=== PATIENT | female | born 1955 | race Caucasian/White ===

== ENCOUNTER 2016-08-10 08:59 | Emergency (ER) | payer OTHER ==
[~2016-08-10] VITALS: Ht 167.6 cm; Wt 61.3 kg
[2016-08-10] VITALS (8 sets, daily range): BP systolic 96–152; BP diastolic 54–84; PULSE 93–105; TEMP 36.4–36.9; O2SAT 93–98; Ht 167.6 cm; Wt 61.3 kg
[~2016-08-10 08:59] MED LIST: AZAT50TA5 PO; BUDE3CAP14 PO; CARV6.25 PO; CEFE2INJ2 IV; LEVO100T PO; LORA-741 PO; ONDA4TAB46 PO; POLY335019 PO; POTA10CA28 PO; PRED10TA PO; PRLSR20 PO; PRTI40 IV; URSO300C4 PO; VNCE1000 IV; [UNRECOGNIZED DRUG - CODE] IV; [UNRECOGNIZED DRUG - CODE] IV
--- NOTE | 2016-08-10 09:36 | EMERGENCY ROOM VISIT NOTE ---
History Report prepared by Fatoumata: Kate Espinoza Under the Supervision of: Dr. Chela Murry M.D. First contact with patient: 09:16 Chief Complaint: SYNCOPE Stated Complaint: SYNCOPE Nursing Triage Summary: Patient arrived via EMS for syncopal episode this am, patient resides at [facility]. Patient reports that "the occupational therapist had ms up to get dressed and then strapped me into my wheelchair for breakfast then I passed out." Patient has history of Leukemia and believes her platelet count may be low. PT is on neutropenic precautions. A&Ox4. History of Present Illness The patient is a 61 year old female who presents to the Emergency Room with complaints of a syncopal episode that occurred prior to arrival. She is accompanied by her . The patient was transferred to [facility] yesterday from [facility] and reports her occupational therapist had her get up and dressed this morning, then was strapping her into her wheelchair for breakfast when she passed out. She states "the next thing I knew, I was on the bed, staring at a bunch of doctor's". The patient has a history of leukemia, diagnosed in May 2016, and believes her platelets may have been low this morning and reports she did not eat anything for breakfast today. Her oncology team is comprised of the physicians at [facility]. She notes a similar episode happened a few weeks ago while she was inpatient at [facility] for the leukemia. She denies experiencing any chest pain or shortness of breath this morning. Source of History: patient, spouse/significant other () Onset: HISTOLOGIST Position: other (global) Timing: resolved Associated Symptoms: No SOB, No chest pain Review of Systems See HPI for pertinent positives & negatives. A total of 10 systems reviewed and were otherwise negative. Past Medical & Surgical Medical Problems: (1) Hyperbilirubinemia (2) Hypothyroidism (3) Pneumonia (4) Takotsubo cardiomyopathy (5) Transaminitis Surgical Problems: (1) H/O colonoscopy (2) S/P anal fissurectomy Family History FH: alpha 1 antitrypsin deficiency SISTER FH: cancer FATHER MOTHER FH: diabetes mellitus FH: gallbladder disease FH: heart disease FATHER FH: hypertension FH: lung disease MOTHER Hemochromatosis SISTER Stroke MOTHER Social History Smoking Status: Never Smoker Alcohol Use: occasionally Drug Use: none Marital Status: Housing Status: lives with family Occupation Status: employed Current/Historical Medications Scheduled Acyclovir (Acyclovir), 400 MG PO BID Carvedilol (Coreg), 6.25 MG PO BID Daptomycin (Daptomycin), 750 MG IV DAILY Dexamethasone (Dexamethasone), 2 TAB PO DAILY Docusate Sodium (Colace), 1 CAP PO BID Insulin Glargine (Lantus Solostar), 2 UNITS SC DAILY Levothyroxine Sodium (Synthroid), 100 MCG PO DAILY Oseltamivir Phosphate (Tamiflu), 75 MG PO DAILY Pantoprazole (Protonix), 40 MG PO DAILY Polyethylene Glycol 3350 (Miralax), 17 GM PO DAILY Senna/Docusate Sod (Senokot S), 1 TAB PO DAILY Ursodiol (Ursodiol), 300 MG PO TID Scheduled PRN Acetaminophen (Tylenol), 650 MG PO Q4 PRN for Pain Bisacodyl (Dulcolax), 1 SUPP WA Q24H PRN for Constipation Dextromethorphan-Guaifenesin (Robitussin-Dm Syrup), 5 ML PO QID PRN for Cough Diphenoxylate W/ Atropine (Lomotil), 1 TAB PO Q6 PRN for Constipation Insulin Aspart (Novolog Flexpen), UNITS SC UD PRN for SLIDING SCALE Lorazepam (Ativan), 1 MG PO Q6H PRN for Anxiety Lorazepam (Ativan), 0.5 MG PO Q8 PRN for Anxiety Magnesium Hydroxide (Milk of Magnesia), 30 ML PO Q24H PRN for Constipation Oxycodone Ir (Roxicodone Ir), 5 MG PO Q4H PRN for Severe Pain Sodium Phosphates (Fleet Enema Six Pack), 1 DOSE WA Q24H PRN for Constipation Allergies Coded Allergies: Penicillins (Verified Allergy, Unknown, ., 08/10/16) Sulfa Antibiotics (Verified Allergy, Unknown, ., 08/10/16) Physical Exam Vital Signs Date Time Temp Pulse Resp B/P Pulse Ox O2 Delivery O2 Flow Rate FiO2 08/10/16 15:19 96 23 134/66 96 Room Air 08/10/16 14:18 100 131/63 110 141/90 118 172/116 08/10/16 14:15 36.6 100 20 131/63 98 08/10/16 13:14 36.8 97 20 113/55 98 08/10/16 12:42 36.4 93 18 96/54 95 08/10/16 12:25 36.7 97 20 120/62 96 08/10/16 12:09 102 20 102/59 97 Room Air 08/10/16 12:05 97 08/10/16 10:58 115 24 112/76 96 Room Air 08/10/16 09:17 98 08/10/16 09:11 36.6 95 18 152/81 98 Room Air Physical Exam Vital signs reviewed. General: Chronically ill-appearing 61 year old female, in no significant distress. HEENT: No scleral icterus, PERRLA, neck supple. Atraumatic. Dry mucous membranes. Cardiovascular: Tachycardic rate and regular rhythm, no extra sounds. Pulmonary: Clear to auscultation bilaterally, normal work of breathing. Abdomen: Soft, nontender, nondistended, positive bowel sounds. Musculoskeletal: Atraumatic, no peripheral edema. Neurologic: Patient awake alert and oriented x 3, full strength in all 4 extremities. Cranial nerves 2 through 12 grossly intact. Skin: Warm, dry. Purpura to the chest, right ear and distal upper extremities. Medical Decision & Procedures ER Provider Diagnostic Interpretation: This X-Ray was reviewed and interpreted by myself and the radiologist. CHEST ONE VIEW PORTABLE IMPRESSION: No active disease in the chest. Electronically signed by: Merlin Morataya M.D. 08/10/2016 9:58 AM Dictated Date/Time: 08/10/2016 9:58 AM Laboratory Results 08/10/16 09:15 Red Blood Count 3.01, Mean Corpuscular Volume 83.7, Mean Corpuscular Hemoglobin 30.2, Mean Corpuscular Hemoglobin Concent 36.1, Mean Platelet Volume 8.8 08/10/16 09:15 Test 08/10/16 09:15 08/10/16 09:48 White Blood Count 4.19 K/uL (4.8-10.8) Red Blood Count 3.01 M/uL (4.2-5.4) Hemoglobin 9.1 g/dL (12.0-16.0) Hematocrit 25.2 % (37-47) Mean Corpuscular Volume 83.7 fL (80-100) Mean Corpuscular Hemoglobin 30.2 pg (25-34) Mean Corpuscular Hemoglobin Concent 36.1 g/dl (32-36) Platelet Count 10 K/uL (130-400) Mean Platelet Volume 8.8 fL (7.4-10.4) RDW Standard Deviation 42.7 fL (36.4-46.3) RDW Coefficient of Variation 14.0 % (11.5-14.5) Nucleated RBC Absolute Count (auto) 0.02 K/uL (0-0) Neutrophils % (Manual) 90.4 % Lymphocytes % (Manual) 2.6 % Monocytes % (Manual) 3.5 % Metamyelocytes % 1.7 % Myelocytes % 0.9 % Blast Cells % 0.9 % Nucleated Red Blood Cells % 0.5 % Neutrophils # (Manual) 3.79 K/uL (1.4-6.5) Total Absolute Neutrophils 3.79 K/uL (1.4-6.5) Lymphocytes # (Manual) 0.11 K/uL (1.2-3.4) Total Absolute Lymphocytes 0.11 K/uL (1.2-3.4) Monocytes # (Manual) 0.15 K/uL (0.11-0.59) Metamyelocytes # 0.07 K/uL (0-0) Myelocytes # 0.04 K/uL (0-0) Hypogranular Neutrophils 2+ Blast Cells # 0.04 K/uL (0-0) Toxic Vacuolation 1+ Dohle Bodies 1+ Platelet Estimate SIGNIFIC DECREASED Prothrombin Time 10.7 SECONDS (9.0-12.0) Prothromb Time International Ratio 1.0 (0.9-1.1) Activated Partial Thromboplast Time 25.0 SECONDS (21.0-31.0) Partial Thromboplastin Ratio 1.0 Anion Gap 11.0 mmol/L (3-11) Est Creatinine Clear Calc Drug Dose 88.8 ml/min Estimated GFR () 113.0 Estimated GFR (Non- 97.5 BUN/Creatinine Ratio 34.0 (10-20) Calcium Level 8.2 mg/dl (8.5-10.1) Magnesium Level 1.7 mg/dl (1.8-2.4) Total Bilirubin 1.1 mg/dl (0.2-1) Direct Bilirubin 0.7 mg/dl (0-0.2) Aspartate Amino Transf (AST/SGOT) 33 U/L (15-37) Alanine Aminotransferase (ALT/SGPT) 68 U/L (12-78) Alkaline Phosphatase 551 U/L (45-117) Total Protein 5.7 gm/dl (6.4-8.2) Albumin 2.4 gm/dl (3.4-5.0) Bedside Troponin I 0.040 ng/ml (0-0.045) Laboratory results per my review. Medications Administered Medications (Trade) Dose Ordered Sig/Adelaida Route Start Time Stop Time Status Last Admin Dose Admin Sodium Chloride 500 ml @ 999 mls/hr Q31M STAT IV 08/10/16 09:39 08/10/16 10:09 DC 08/10/16 09:54 999 MLS/HR Sodium Chloride (Nss 1000ml) 1,000 ml @ 125 mls/hr Q8H STAT IV 08/10/16 09:39 08/10/16 17:38 08/10/16 10:30 125 MLS/HR Dexamethasone (Decadron Tab) 2 mg NOW ONCE PO 08/10/16 14:45 08/10/16 14:48 DC 08/10/16 15:00 2 MG Carvedilol (Coreg Tab) 6.25 mg NOW STAT PO 08/10/16 14:45 08/10/16 14:48 DC 08/10/16 15:18 6.25 MG Oseltamivir Phosphate (Tamiflu Cap) 75 mg NOW STAT PO 08/10/16 14:45 08/10/16 14:48 DC 08/10/16 15:00 75 MG Acyclovir (Zovirax Tab) 400 mg NOW STAT PO 08/10/16 14:45 08/10/16 14:48 DC 08/10/16 15:18 400 MG Levothyroxine Sodium 100 mcg 100 mcg NOW STAT PO 08/10/16 14:45 08/10/16 14:48 DC 08/10/16 15:19 100 MCG Daptomycin/Sodium Chloride (Cubicin IV/Nss 50ml) 65 ml @ 100 mls/hr NOW STAT IV 08/10/16 14:45 08/10/16 15:23 DC 08/10/16 15:18 100 MLS/HR Ursodiol (Actigall Cap) 300 mg NOW STAT PO 08/10/16 14:45 08/10/16 14:48 DC 08/10/16 15:18 300 MG Pantoprazole Sodium (Protonix Tab) 40 mg NOW STAT PO 08/10/16 14:45 08/10/16 14:48 DC 08/10/16 15:00 40 MG Docusate Sodium (coLACE CAP) 100 mg NOW ONCE PO 08/10/16 14:45 08/10/16 14:49 DC 08/10/16 15:00 100 MG ECG Indication: syncope Rate (beats per minute): 97 Findings: no acute ischemic change, no ectopy, other (previous anterior infarct ) ED Course 0923: Past medical records reviewed. The patient was evaluated in room B5. A complete history and physical examination was performed. 0939: NSS 1000 ml @ 125 mls/hr IV, NSS 500 ml @ 999 mls/hr IV. 1030: I spoke with the patients about her case. I was able to answer some questions for him and assured him I will speak with her [facility] Oncology team. 1135: I discussed the patients case with Dr. Leone [facility] Hematology/ Oncology. He recommends I transfuse 2 units of platelets and get orthostatic vital signs. 1215: I reevaluated the patient. She is resting comfortably and aware we will proceed with a RBC transfusion. 1440: Nursing informed me the patient received none of her morning medications. I will put in orders. 1445: Colace 100 mg PO, Protonix 40 mg PO, Actigall 300 mg PO, Daptomycin 750 mg /Sodium Chloride 65 ml @ 100 mls/hr IV, Synthroid 100 mcg PO, Acyclovir 400 mg PO, Tamiflu 75 mg PO, Coreg 6.25 mg PO, Decadron 2 mg PO. 1525: I reevaluated the patient. She is resting comfortably and waiting on her platelet transfusion. 1530: This patient is a sign out to Dr. Batista at the end of my shift. Medical Decision Etiologies such as metabolic, infection, hypo/hyperglycemia, electrolyte abnormalities, cardiac sources, anemia, sepsis, dehydration, intracerebral event , toxicologic, neurologic, as well as others were entertained. This patient was evaluated and appeared to be in no significant distress. IV access was obtained and the patient's PICC line. Patient's laboratory work reveals a thrombocytopenia of 10,000. She does not appear to be neutropenic at this time. Blood cultures are pending. I did discuss the case with Dr. Cordova of oncology at [facility]. He has recommended 2 units of irradiated leukocyte reduced platelets. The patient is currently taking Decadron 2 mg daily. As she is noted to be tachycardic and hypertensive with orthostatics, her medication list was reviewed. She had not received any of her morning medications per [facility]. The patient was given IV daptomycin, oral Decadron, Synthroid, acyclovir, Tamiflu, Coreg, ursodiol, Protonix and Colace. She was receiving 2 units of platelets. There was some delay in obtaining the second unit from an outside source. The patient remained well in the emergency department. She had 2 meals and was improving clinically. She will be discharged back to [facility] at the completion of the second unit of platelets. Patient and are aware of this plan and agree. Consults Time Called: 1130 Consulting Physician: Dr. Leone, [facility] Hematology/Oncology Returned Call: [phone] I discussed the patients case with Dr. Leone, [facility] Hematology/Oncology. He recommends I transfuse 2 units of platelets and get orthostatic vital signs. Impression Primary Impression: Thrombocytopenia Additional Impressions: Vasovagal syncope, AML (acute myelogenous leukemia) Scribe Attestation The scribe's documentation has been prepared under my direction and personally reviewed by me in its entirety. I confirm that the note above accurately reflects all work, treatment, procedures, and medical decision making performed by me. Departure Information Dispostion Still a Patient (This patient is a sign out to Dr. Batista at the end of my shift) Referrals Jaylin Corral D.O. (PCP) Patient Instructions A Signature Page, My [facility]
[2016-08-10] MEDS ORDERED: SODIUM CHLORIDE 0.9% 500ML 500 ML IV STA (09:39)
[2016-08-10] MEDS ORDERED: SODIUM CHLORIDE 0.9% 1000ML 1,000 ML IV STA (09:39)
--- NOTE | 2016-08-10 10:00 | DIAGNOSTIC IMAGING REPORT ---
CHEST ONE VIEW PORTABLE CLINICAL HISTORY: syncope, leukemia, neutropenia COMPARISON STUDY: 05/14/2016 FINDINGS: The cardiac and mediastinal contours remain stable. There is been interval placement of a left-sided PICC catheter. The tip projects over the superior vena cava. There is no focal pulmonary consolidation. There is no failure. There are no pleural effusions. There is minimal left basilar atelectatic change.[ IMPRESSION: No active disease in the chest. Electronically signed by: Merlin Morataya M.D. 08/10/2016 9:58 AM Dictated Date/Time: 08/10/2016 9:58 AM
[2016-08-10 10:29] LABS: CALCIUM 8.2 mg/dl (8.5-10.1); CREATININE 0.63 mg/dl (0.60-1.20); MAGNESIUM 1.7 mg/dl (1.8-2.4); POTASSIUM 3.6 mmol/L (3.5-5.1)
[2016-08-10 10:30] LABS: PROTHROMBIN TIME (PATIENT) 10.7 SECONDS (9.0-12.0)
[2016-08-10 10:59] LABS: HEMATOCRIT 25.2 % (37-47); MEAN CELL VOLUME 83.7 fL (80-100); MEAN CORPUSCULAR HEMOGLOBIN 30.2 pg (25-34); MEAN CORPUSCULAR HGB CONC 36.1 g/dl (32-36); MEAN PLATELET VOLUME 8.8 fL (7.4-10.4); PLATELET COUNT 10 K/uL (130-400); RED BLOOD COUNT 3.01 M/uL (4.2-5.4); WHITE BLOOD COUNT 4.19 K/uL (4.8-10.8)
[2016-08-10 11:00] LABS: DOHLE BODIES 1+; PLT ESTIMATE SIGNIFIC DECREASED; VACUOLIZATION 1+
[2016-08-10] MEDS ORDERED: POLY335019 PO (11:02)
[2016-08-10] MEDS ORDERED: SENN-65 PO (11:02)
[2016-08-10] MEDS ORDERED: SODI1ENE PR (11:07)
[2016-08-10] MEDS ORDERED: ATV/1 PO (11:07)
[2016-08-10 11:16] LABS: COMPLETE YES; LYMPH ABS # 0.11 K/uL (1.2-3.4); LYMPHOCYTE % 2.6 %; META ABS # 0.07 K/uL (0-0); METAMYELOCYTE % 1.7 %; MYELOCYTE % 0.9 %; NEUTROPHILS % 90.4 %
[2016-08-10] MEDS ORDERED: LEVOTHYROXINE 100 MCG TAB PO STA (14:45)
[2016-08-10] MEDS ORDERED: DAPTOmycin IV 750 MG in SODIUM CHLORIDE 0.9% 50ML 50 ML IV STA (14:45)
[2016-08-10] MEDS ORDERED: DOCUSATE SODIUM 100 MG CAP PO ONE (14:45)
[2016-08-10] MEDS ORDERED: DEXAMETHASONE 1 MG TAB PO ONE (14:45)
[2016-08-10] MEDS ORDERED: ACYCLOVIR 400 MG TAB PO STA (14:45)
[2016-08-10] MEDS ORDERED: URSODIOL 300 MG CAP PO STA (14:45)
[2016-08-10] MEDS ORDERED: PANTOprazole SOD 40 MG TAB PO STA (14:45)
[2016-08-10] MEDS ORDERED: CARVEDILOL 6.25 MG TAB PO STA (14:45)
[2016-08-10] MEDS ORDERED: OSELTAMIVIR PHOSPHATE 75 MG CAP PO STA (14:45)
[2016-08-13] MEDS ORDERED: ONDA4TAB46 PO (11:37)
[2016-08-17] MEDS ORDERED: NVLGI/PEN SC (11:02)
[2016-08-17] MEDS ORDERED: DOCU-94 PO (11:02)
[2016-08-17] MEDS ORDERED: PANT40TA PO (11:02)
[2016-08-17] MEDS ORDERED: CARV6.252 PO (11:02)
[2016-08-17] MEDS ORDERED: DEXA2TAB PO (11:02)
[2016-08-17] MEDS ORDERED: NF406 PO (11:02)
[2016-08-17] MEDS ORDERED: BISA10SU38 PR (11:07)
[2016-08-17] MEDS ORDERED: MOMLX PO (11:07)
[2016-08-29] MEDS ORDERED: URSO300C8 PO (11:02)
[2016-08-29] MEDS ORDERED: INSDGIPEN SC (11:02)
[2016-08-29] MEDS ORDERED: LEVO100T PO (11:02)
[2016-08-29] MEDS ORDERED: DAPT500I IV (11:02)
[2016-08-29] MEDS ORDERED: ZVR400 PO (11:02)
[2016-08-29] MEDS ORDERED: RBTDMUDL5 PO (11:07)
[2016-08-29] MEDS ORDERED: DPH/ PO (11:07)
[2016-08-29] MEDS ORDERED: OXYC1TAB3 PO (11:07)
[2016-08-29] MEDS ORDERED: ACET-1311 PO (11:07)
[2016-08-29] MEDS ORDERED: LORA-741 PO (11:07)
[2016-08-29] MEDS ORDERED: METO25TA3 PO (13:01)
[2016-09-04] MEDS ORDERED: FLUC200T PO (13:07)
[2016-10-29] MEDS ORDERED: LEVO1TAB33 PO (13:12)
== END 2016-08-10 21:54 | disposition home or self-care (01) ==
LOC: EDBD 08:59 → C.EDB 09:02
DX: D69.6 Thrombocytopenia, unspecified (principal); R55 Syncope and collapse; C92.00 Acute myeloblastic leukemia, not having achieved remission; E03.9 Hypothyroidism, unspecified; Z79.4 Long term (current) use of insulin; Z79.899 Other long term (current) drug therapy; Z88.0 Allergy status to penicillin; Z88.2 Allergy status to sulfonamides

== ENCOUNTER 2016-08-17 17:42 | Inpatient (IN) | payer OTHER ==
[~2016-08-17] VITALS: Ht 167.6 cm; Wt 60.2 kg
[2016-08-17] VITALS (12 sets, daily range): BP systolic 92–124; BP diastolic 62–84; PULSE 81–86; TEMP 35.9–36.9; O2SAT 94–99; Ht 167.6 cm; Wt 60.2 kg
[~2016-08-17 17:42] MED LIST changes: -AZAT50TA5 PO; +BISA10SU38 PR; -BUDE3CAP14 PO; -CARV6.25 PO; +CARV6.252 PO; -CEFE2INJ2 IV; +DEXA2TAB PO; +DOCU-94 PO; -LEVO100T PO; -LORA-741 PO; +MOMLX PO; +NF406 PO; +NVLGI/PEN SC; +PANT40TA PO; -POTA10CA28 PO; -PRED10TA PO; -PRLSR20 PO; -PRTI40 IV; +SENN-65 PO; -URSO300C4 PO; -VNCE1000 IV; -[UNRECOGNIZED DRUG - CODE] IV; -[UNRECOGNIZED DRUG - CODE] IV
--- NOTE | 2016-08-17 18:19 | EMERGENCY ROOM VISIT NOTE ---
History Report prepared by Fatoumata: Krystle Helm Under the Supervision of: Dr. Chela Murry M.D. First contact with patient: 17:46 Chief Complaint: REFERRED BY DOCTOR Stated Complaint: PLATLET INFUSION History of Present Illness The patient is a 61 year old female who presents to the Emergency Room with complaints of a referral by a doctor to have platelet transfusion. The need for a platelet transfusion was noticed earlier today at [facility]. The patient states that she feels fine and that therapy has been going well for her. She is currently receiving treatment for leukemia. She states that her skin tears on her right arm bled "pretty bad" earlier today. Otherwise, she denies noticing any bleeding. Source of History: patient Onset: earlier today Position: other (generalized) Symptom Intensity: minimal Quality: other (referral by doctor for platelet transfusion) Note: skin tears on right arm that bled earlier today Review of Systems See HPI for pertinent positives & negatives. A total of 10 systems reviewed and were otherwise negative. Past Medical & Surgical Medical Problems: (1) AML (acute myeloblastic leukemia) (2) AML (acute myelogenous leukemia) (3) Hyperbilirubinemia (4) Hypothyroidism (5) Pancytopenia (6) Pneumonia (7) Takotsubo cardiomyopathy (8) Transaminitis Surgical Problems: (1) H/O colonoscopy (2) S/P anal fissurectomy Family History FH: alpha 1 antitrypsin deficiency SISTER FH: cancer FATHER MOTHER FH: diabetes mellitus FH: gallbladder disease FH: heart disease FATHER FH: hypertension FH: lung disease MOTHER Hemochromatosis SISTER Stroke MOTHER Social History Smoking Status: Never Smoker Alcohol Use: occasionally Drug Use: none Marital Status: Housing Status: lives with family Occupation Status: employed Current/Historical Medications Scheduled Acyclovir (Acyclovir), 400 MG PO BID Carvedilol (Coreg), 6.25 MG PO BID Daptomycin (Daptomycin), 750 MG IV QD@1200 Dexamethasone (Dexamethasone), 4 MG PO QAM Docusate Sodium (Colace), 100 MG PO BID Insulin Glargine (Lantus Solostar), 2 UNITS SC DAILY Levothyroxine Sodium (Synthroid), 100 MCG PO DAILY Oseltamivir Phosphate (Tamiflu), 75 MG PO DAILY Pantoprazole (Protonix), 40 MG PO DAILY Polyethylene Glycol 3350 (Bulk (Polyethylene Glycol 3350), 17 GM PO DAILY Sennosides-Docusate Sodium (Senna/Docusate Sodium), 1 TAB PO DAILY Ursodiol (Ursodiol), 300 MG PO TID Scheduled PRN Acetaminophen (Tylenol), 650 MG PO Q4H PRN for Mild Pain Bisacodyl (Dulcolax), 1 SUPP ME UD PRN for Constipation Dextromethorphan-Guaifenesin (Robitussin-Dm Syrup), 5 ML PO QID PRN for Cough Diphenoxylate W/ Atropine (Lomotil), 2.5 MG PO Q6H PRN for Diarrhea Insulin Aspart (Novolog Flexpen), UNITS SC UD PRN for SLIDING SCALE Lorazepam (Ativan), 0.5 MG PO Q8 PRN for Anxiety Magnesium Hydroxide (Milk of Magnesia), 30 ML PO UD PRN for Constipation Ondasetron Odt (Zofran Odt), 4 MG SL Q6H PRN for Nausea or Vomiting Oxycodone Ir (Roxicodone Ir), 5 MG PO Q4H PRN for Moderate to Severe Pain Allergies Coded Allergies: Penicillins (Verified Allergy, Unknown, ., 08/13/16) Sulfa Antibiotics (Verified Allergy, Unknown, ., 08/13/16) Physical Exam Vital Signs Date Time Temp Pulse Resp B/P Pulse Ox O2 Delivery O2 Flow Rate FiO2 08/17/16 21:04 83 16 116/81 96 Room Air 08/17/16 20:37 36.6 83 18 116/81 96 08/17/16 20:36 36.6 81 18 116/81 96 08/17/16 20:17 36.6 83 16 112/77 97 08/17/16 19:52 36.7 86 16 121/83 97 08/17/16 19:27 36.6 83 16 121/83 97 08/17/16 19:11 36.6 76 18 109/73 95 Room Air 08/17/16 19:04 36.6 84 16 109/75 95 08/17/16 18:46 36.6 85 18 100/71 95 08/17/16 18:34 36.6 82 16 94/62 94 08/17/16 18:23 36.9 84 17 92/64 94 08/17/16 17:46 36.6 96 18 107/79 93 Room Air Physical Exam Vital signs reviewed. General: Chronically ill-appearing female, in no significant distress. HEENT: No scleral icterus, pale conjunctiva, PERRLA, neck supple. Atraumatic. Cardiovascular: Regular rate and rhythm, no extra sounds. Pulmonary: Clear to auscultation bilaterally, normal work of breathing. Abdomen: Soft, nontender, nondistended, positive bowel sounds. Musculoskeletal: Atraumatic, no peripheral edema. PICC line in left upper extremity. Neurologic: Patient awake alert and oriented x 3, full strength in all 4 extremities. Cranial nerves 2 through 12 grossly intact. Skin: Warm, dry, no rash. Dark nonblanching purple lesions to anterior chest wall and upper extremities bilaterally but no active bleeding. Protective dressings applied to both forearms. Medical Decision & Procedures Laboratory Results Test 08/17/16 18:10 Neutrophils % (Manual) 75.8 % Lymphocytes % (Manual) 6.9 % Monocytes % (Manual) 5.2 % Metamyelocytes % 4.3 % Myelocytes % 5.2 % Promyelocytes % 2.6 % Neutrophils # (Manual) 1.81 K/uL (1.4-6.5) Total Absolute Neutrophils 1.81 K/uL (1.4-6.5) Lymphocytes # (Manual) 0.16 K/uL (1.2-3.4) Total Absolute Lymphocytes 0.16 K/uL (1.2-3.4) Monocytes # (Manual) 0.12 K/uL (0.11-0.59) Metamyelocytes # 0.10 K/uL (0-0) Myelocytes # 0.12 K/uL (0-0) Promyelocytes # 0.06 K/uL (0-0) Toxic Granulation 1+ Platelet Estimate SIGNIFIC DECREASED Prothrombin Time 10.7 SECONDS (9.0-12.0) Prothromb Time International Ratio 1.0 (0.9-1.1) Activated Partial Thromboplast Time 27.5 SECONDS (21.0-31.0) Partial Thromboplastin Ratio 1.1 Total Bilirubin 0.7 mg/dl (0.2-1) Direct Bilirubin 0.5 mg/dl (0-0.2) Aspartate Amino Transf (AST/SGOT) 22 U/L (15-37) Alanine Aminotransferase (ALT/SGPT) 45 U/L (12-78) Alkaline Phosphatase 534 U/L (45-117) Total Protein 6.0 gm/dl (6.4-8.2) Albumin 2.5 gm/dl (3.4-5.0) Laboratory results per my review. Medications Administered Medications (Trade) Dose Ordered Sig/Adelaida Route Start Time Stop Time Status Last Admin Dose Admin Prednisone (PredniSONE TAB) 60 mg NOW STAT PO 08/17/16 20:01 08/17/16 20:02 DC 08/17/16 20:20 60 MG Potassium Chloride (Klor-Con M10) 40 meq NOW STAT PO 08/17/16 20:16 08/17/16 20:26 DC 08/17/16 20:36 40 MEQ ED Course 175: Past medical records reviewed. The patient was evaluated in room A11. A complete history and physical examination was performed. 1943: I reviewed the patient's case with Dr. Salcido - Hematology at [facility]. They recommended giving 2 units of platelets, 1 mg per kg of prednisone, and admit the patient to medicine. 1944: I reviewed the patient's case with Cookie Way PA-C - [place]. She will evaluate the patient for further management. 1946: Upon reevaluation, the patient is resting comfortably. I discussed laboratory and radiographic results with her. She verbalized agreement of the treatment plan. I spoke with Cookie Way PA-C of the [facility] Hospitalist Service. The patient will be evaluated for further management and care. 2000: Ordered Prednisone 60 mg PO Medical Decision The patient is a 61 year old female who presents to the Emergency Room with complaints of a referral by a doctor to have platelet transfusion. Differentials include thrombocytopenia secondary to malignancy, medication side effects. This pt was evaluated and appeared to be in no distress. IV access was obtained and lab work was drawn. Patient's laboratory work was reviewed with a platelet count of 1999. I did speak with oncology at [facility], Dr. Salcido, who has recommended platelet transfusion and steroid therapy, 1 mg/kg of prednisone. The patient was given 60 mg of oral prednisone. Additional platelets will need to be obtained from an outside hospital. The first unit of platelets was administered in the emergency department. The patient will be evaluated by the hospitalist service for further management. She is aware of the plan and agrees. Consults Time Called: 1934 Consulting Physician: Dr. Salcido - Hematology at [facility] Returned Call: 1943 I reviewed the patient's case with Dr. Salcido - Hematology at [facility]. They recommended giving 2 units of platelets, 1 mg per kg of prednisone, and admit the patient to medicine. Additional Consults: Time Called: 1943 Consulted Physician: Cookie Torres Returned Call: 1944 Additional Comments: I reviewed the patient's case with Cookie Torres. She will evaluate the patient for further management. Impression Primary Impression: Thrombocytopenia Additional Impression: Acute myelogenous leukemia Scribe Attestation The scribe's documentation has been prepared under my direction and personally reviewed by me in its entirety. I confirm that the note above accurately reflects all work, treatment, procedures, and medical decision making performed by me. Departure Information Dispostion Being Evaluated By Hospitalist Referrals Jaylin Corral D.OAngel (PCP) Patient Instructions My [facility] Problem Qualifiers Additional Impression: Acute myelogenous leukemia Leukemia Active/Remission status: without remission Qualified Codes: C92.00 - Acute myeloblastic leukemia, not having achieved remission
[2016-08-17 18:46] LABS: BUN/CREATININE RATIO 25.8 (10-20); CALCIUM 7.9 mg/dl (8.5-10.1); CREATININE 0.45 mg/dl (0.60-1.20); POTASSIUM 3.3 mmol/L (3.5-5.1)
[2016-08-17 19:24] LABS: HEMATOCRIT 27.1 % (37-47); MEAN CELL VOLUME 82.6 fL (80-100); MEAN CORPUSCULAR HEMOGLOBIN 29.6 pg (25-34); MEAN CORPUSCULAR HGB CONC 35.8 g/dl (32-36); PLATELET COUNT 2 K/uL (130-400); RED BLOOD COUNT 3.28 M/uL (4.2-5.4); WHITE BLOOD COUNT 2.39 K/uL (4.8-10.8)
[2016-08-17 19:32] LABS: LYMPH ABS # 0.16 K/uL (1.2-3.4); LYMPHOCYTE % 6.9 %; METAMYELOCYTE % 4.3 %; MYELOCYTE % 5.2 %; NEUTROPHILS % 75.8 %; PLT ESTIMATE SIGNIFIC DECREASED; TOXIC GRANULATION 1+
[2016-08-17 19:35] LABS: COMPLETE YES
[2016-08-17] MEDS ORDERED: POTASSIUM CHLORIDE 10 MEQ TABCR PO STA (20:16)
[2016-08-17] MEDS ORDERED: ONDANSETRON INJ 2 MG/ML 2 ML VIAL IV PRN (20:45)
[2016-08-17] MEDS ORDERED: POLY1POW2 PO (20:48)
[2016-08-17] MEDS ORDERED: SENN1TAB66 PO (20:48)
[2016-08-17 20:58] LABS: PARTIAL THROMBOPLASTIN RATIO 1.1; PROTHROMBIN TIME (PATIENT) 10.7 SECONDS (9.0-12.0)
--- NOTE | 2016-08-17 21:11 | DIAGNOSTIC IMAGING REPORT ---
SINGLE VIEW CHEST CLINICAL HISTORY: Fever. FINDINGS: An AP, portable, upright chest radiograph is compared to study dated 08/10/2016 and correlated with chest CT dated 05/14/2016. A left PICC line is unchanged in position. The cardiomediastinal silhouette is unremarkable. There are low lung volumes. Left basilar consolidation is identified and there is a trace left pleural effusion. The right lung is grossly clear. No pneumothorax is seen. The skeletal structures are osteopenic. The bony thorax is grossly intact. IMPRESSION: There is developing left basilar consolidation with a small left pleural effusion. Correlate clinically for evidence of pneumonia/aspiration pneumonitis. Radiographic follow-up to resolution is recommended. Electronically signed by: Adolph Curry M.D. 08/17/2016 9:09 PM Dictated Date/Time: 08/17/2016 9:07 PM
[2016-08-17] MEDS ORDERED: GUAIFENESIN/DEXTROM SYRUP 100MG/10MG 5ML UDC PO PRN (21:15)
[2016-08-17] MEDS ORDERED: OXYCODONE HCL IR 5 MG TAB (IMMEDIATE RELEASE) PO PRN (21:15)
[2016-08-17] MEDS ORDERED: LORAZEPAM 0.5 MG TAB PO PRN (21:15)
[2016-08-17] MEDS ORDERED: MAGNESIUM HYDROXIDE SUSP 30 ML UDC PO PRN (21:15)
[2016-08-17] MEDS ORDERED: ACETAMINOPHEN 325 MG TAB PO PRN (21:15)
[2016-08-17] MEDS ORDERED: DIPHENOXYLATE/ATROPINE 2.5/0.025MG TAB PO PRN (21:15)
[2016-08-17] MEDS ORDERED: BISACODYL 10 MG SUPP PR PRN (21:15)
[2016-08-17] MEDS ORDERED: ONDANSETRON 4MG OD TAB SL PRN (21:15)
--- NOTE | 2016-08-17 22:16 | HISTORY & PHYSICAL EXAMINATION ---
DATE OF ADMISSION: 08/17/2016 PRIMARY CARE PHYSICIAN: Dr. Corral. Hematologists-DR Salcido in [place] and Dr Mejia CHIEF COMPLAINT: Weakness and was found to have a very low platelet of 2 at [facility]. 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 Apparently has been in [facility] since discharged from [facility] on 08/09/2016. She has been complaining of more bruising involving the upper part of the body and upper extremities for the last year or two and also complains to have more weakness but did not have any bleeding in the stool or any nausea or vomiting with blood. She feels generally weak and lethargic. Her blood test was done today at [facility] and she was found to have a platelet of 2. From that point, her pharmacy delivery driver was consulted in [place] and he advised the patient to come to the medical center and get platelet transfusion as advised and also start on prednisone. Short hospital course in [place]. The patient was transferred to [place] on 06/16/2017 with high white count. She was diagnosed to have acute myeloid leukemia, poorly differentiated, and she received chemotherapy with FLAG-AMY and she finished that course in June. Her hospital course was complicated by GI bleed and also by VRE bacteremia. She was seen by GI and also ID, and she has been put on intravenous daptomycin and also oral acyclovir and the daptomycin should be continued until 08/29/2016. She also had an echocardiogram on 07/13/2016 that showed EF of 55% and no vegetations. Her hospital course also was complicated by pancytopenia but that was gradually improving. Again, today she was noted to have a platelet of 2 and that is the reason she is in the hospital. PAST MEDICAL HISTORY: Significant for recently diagnosed acute myeloid leukemia, poorly differentiated type, status post chemotherapy; pancytopenia secondary to chemotherapy and/or bone marrow infiltration; thrombocytopenia; autoimmune hepatitis; febrile neutropenia with VRE bacteremia; HSV-1 infection, hypothyroidism and Takotsubo cardiomyopathy. PAST SURGICAL HISTORY: Significant for bone marrow aspiration on 08/02/2016, EGD 01/11/2016, TMJ arthroscopy in 12/2015. FAMILY HISTORY: Her father had esophageal cancer. Mother had head and neck cancer. Father has heart disease too. Mother did have lung disorder and mother had stroke. Sister has thyroid disorder. SOCIAL HISTORY: She is . She has no child now. She has been in [facility] following hospitalization in [place] and she is supposed to get out from there this Saturday. She does not smoke, she uses alcohol occasionally, and she has been reasonably mobile. ALLERGIES: TO PENICILLIN AND SULFA ANTIBIOTICS. MEDICATIONS: She has been getting Tylenol 650 mg q. 4 hourly as needed, acyclovir 400 mg twice daily, Dulcolax suppository as directed, Coreg 6.25 mg twice daily, daptomycin 750 mg IV once daily, Lomotil 2.5 mg q. 6 hourly p.r.n., docusate sodium 100 mg b.i.d., insulin sliding scale and Lantus 2 units subcu daily, Synthroid 100 mcg daily, lorazepam 0.5 mg q. 8 hourly as needed, milk of magnesia 30 mL suspension as directed, Zofran 4 mg sublingual as directed, Tamiflu 75 mg p.o. daily, oxycodone IR 5 mg q. 4 hourly p.r.n., Protonix 40 mg daily, senna 1 tablet daily, ursodiol 300 mg 3 times daily, dexamethasone 4 mg q.a.m., Robitussin-DM syrup 5 mL q.i.d. p.r.n. and MiraLax 17 grams p.o. daily. REVIEW OF SYSTEMS: CENTRAL NERVOUS SYSTEM: No headache, no blurred vision, no numbness or tingling in the extremities. RESPIRATORY: No shortness of breath, cough or wheezing. CARDIOVASCULAR: No chest pain or palpitation. GASTROINTESTINAL: No abdominal pain, distention, nausea or vomiting. GENITOURINARY: No problem with urine and/or bowel habit. ENT: Does not have any issues. MUSCULOSKELETAL: No acute arthritis in any joint. DERMATOLOGIC: Does have rash involving mostly upper extremities and the upper part of the body, which is maculopapular and hemolytic rash. PHYSICAL EXAMINATION: GENERAL: In the Emergency Room, she is not having any acute distress. VITAL SIGNS: Temperature is 36.6, pulse is 85, blood pressure 100/71, pulse oximetry 95% on room air. HEENT: Unremarkable. She looks pale. She does have petechial hemorrhage involving the proximal part of the chest and also upper extremities. NECK: Supple. No JVD, no bruit. CHEST: Clear to auscultation bilaterally. HEART: S1, S2, regular. ABDOMEN: Soft, benign, nontender, no organomegaly. Bowel sounds present. EXTREMITIES: Negative for any edema. MUSCULOSKELETAL: Did not show any acute arthritis involving any joint. CENTRAL NERVOUS SYSTEM: She is alert, awake, oriented x3. Generally weak, but no focal sensory and/or motor deficit appreciated. LABORATORY DATA: Noted today white count 2.39, H\T\H 9.7/27.1, platelet was 2, lymphocytes 0.16, monocytes 0.12, metamyelocytes 0.10, myelocytes 0.12, promyelocytes 0.06, toxic granulation 1+. Sodium 138, potassium 3.3, chloride 100, carbon dioxide 26, anion gap 12, BUN 12, creatinine 0.45, random glucose 140, calcium 7.9. LFTs normal except alkaline phosphatase of 534, total protein 6, and albumin 2.5. Chest x-ray pending. EKG pending. PT/INR pending. IMPRESSION AND PLAN: 1. Pancytopenia with critical thrombocytopenia, likely secondary to acute myeloid leukemia with marrow infiltration and is status post chemotherapy. The case was discussed with pharmacy delivery driver at [place] by [facility] provider and was advised to give platelet 2 unit transfusion and also start with prednisone which was done. The patient will be admitted to telemetry unit for close observation. At this time, there is no evidence of any serious bleeding, but she does have bruising, generalized.2 Units PRBC will be on Hold as well. Will need to contact with her Hand Icer in AM. 2. Acute myeloid leukemia, status post chemo that was finished sometime in June. Post-chemotherapy course was complicated by pancytopenia and also gastrointestinal bleed and vancomycin-resistant enterococcal bacteremia in [place], and she has been getting IV antibiotic with daptomycin, should be continued until 08/29/2016, and she has been getting acyclovir as well. 3. Neutropenia. She will be kept on neutropenic precautions. She has been already on daptomycin, we will continue that, and also acyclovir for the time being. 4. Hypothyroidism. Continue with replacement. 5. Vancomycin-resistant enterococcal bacteremia. I will continue with daptomycin and acyclovir. 6. Herpes simplex virus 1 infection. Continue acyclovir. 7. Autoimmune hepatitis. No acute symptoms at this time. 8. Gastrointestinal prophylaxis, Protonix. 9. Deep venous thrombosis prophylaxis with SCDs. She will not be given any pharmacologic anticoagulation due to very low platelet. 10. Code status. That was discussed with the patient, she will be a full code. In my clinical judgment, the beneficiary meets criteria as per CMS for 2 midnight stay in the hospital. PERCY
[2016-08-17] MEDS: INSULIN ASPART 100 UNITS/ML 3 ML PEN SC SCH ×2 (22:29→22:30)
[2016-08-18] VITALS (9 sets, daily range): BP systolic 118–151; BP diastolic 77–95; PULSE 72–88; TEMP 36.2–36.7; O2SAT 96–97
[2016-08-18] MEDS: URSODIOL 300 MG CAP PO SCH ×2 (08:41→13:36)
[2016-08-18] MEDS: INSULIN ASPART 100 UNITS/ML 3 ML PEN SC SCH ×2 (08:43→12:41)
[2016-08-18] MEDS ORDERED: OSELTAMIVIR PHOSPHATE 75 MG CAP PO SCH (09:00)
[2016-08-18] MEDS ORDERED: CARVEDILOL 6.25 MG TAB PO SCH (09:00)
[2016-08-18] MEDS ORDERED: PANTOprazole SOD 40 MG TAB PO SCH (09:00)
[2016-08-18] MEDS ORDERED: INSULIN GLARGINE SOLOSTAR 100 UNITS/ML 3 ML PEN SC SCH (09:00)
[2016-08-18] MEDS ORDERED: POLYETHYLENE (MIRALAX) 17 GM PACK PO SCH (09:00)
[2016-08-18] MEDS ORDERED: DOCUSATE SODIUM/SENNA 50/8.6MG TAB PO SCH (09:00)
[2016-08-18] MEDS ORDERED: ACYCLOVIR 400 MG TAB PO SCH (09:00)
[2016-08-18] MEDS ORDERED: DOCUSATE SODIUM 100 MG CAP PO SCH (09:00)
[2016-08-18 09:04] LABS: HEMATOCRIT 26.4 % (37-47); MEAN CELL VOLUME 81.5 fL (80-100); MEAN CORPUSCULAR HGB CONC 35.6 g/dl (32-36); PLATELET COUNT 59 K/uL (130-400); RED BLOOD COUNT 3.24 M/uL (4.2-5.4); WHITE BLOOD COUNT 2.53 K/uL (4.8-10.8)
[2016-08-18 09:25] LABS: BUN/CREATININE RATIO 19.8 (10-20); CALCIUM 8.7 mg/dl (8.5-10.1); CREATININE 0.55 mg/dl (0.60-1.20); MAGNESIUM 1.7 mg/dl (1.8-2.4); PHOSPHORUS 2.2 mg/dl (2.5-4.9); POTASSIUM 3.7 mmol/L (3.5-5.1)
[2016-08-18] MEDS ORDERED: DAPTOmycin 500 MG VIAL IV SCH (12:00)
[2016-08-18] MEDS ORDERED: DAPTOmycin IV 750 MG in SODIUM CHLORIDE 0.9% 50ML 50 ML IV SCH (12:00)
--- NOTE | 2016-08-18 12:58 | Discharge Instructions ---
Discharge Instructions Admission Reason for Admission: Aml (Acute Myeloblastic Leukemia), Pancytopenia Discharge Discharge Diagnosis / Problem: Thrombocytopenia Discharge Goals Goal(s): Improve disease control Activity Recommendations Activity Limitations: resume your previous activity . Instructions / Follow-Up Instructions / Follow-Up Please keep your follow up appointments as previously scheduled. You will need to have a complete blood count drawn on Saturday. Current Hospital Diet Patient's current hospital diet: Regular Diet Discharge Diet Recommended Diet: Regular Diet Pending Studies Studies pending at discharge: no Medical Emergencies . Who to Call and When: Medical Emergencies: If at any time you feel your situation is an emergency, please call 911 immediately. . Non-Emergent Contact Non-Emergency issues call your: Primary Care Provider, Specialist (Product Development Chemist ) . . "Provider Documentation" section prepared by Christina Quiles. VTE Core Measure Inpt VTE Proph given/why not?: SCD's
--- NOTE | 2016-08-18 18:23 | Discharge Summary ---
Discharge Summary Admission Date: Aug 17, 2016 at 21:06 Discharge Date: Aug 18, 2016 Discharge Disposition: Rehab Principal Diagnosis: Thrombocytopenia Consultations: [facility] Medication Reconciliation Continued Medications: Acetaminophen (Tylenol) 325 Mg Tab 650 MG PO Q4H PRN for Mild Pain, TAB NEEDED FOR MILD PAIN RATED 1-3 ON A SCALE OF "0-10". MAXIMUM 3 GM APAP/24 HOURS. Acyclovir (Acyclovir) 400 Mg Tab 400 MG PO BID TAKE THIS MEDICATION WITH BREAKFAST AND EVENING MEAL Bisacodyl (Dulcolax) 10 Mg Sup 1 SUPP LA UD PRN for Constipation, SUP NEEDED EVERY 24 HOURS FOR NO BOWEL MOVEMENT FOR 2 DAYS Carvedilol (Coreg) 6.25 Mg Tab 6.25 MG PO BID, TAB TAKE THIS MEDICATION WITH BREAKFAST AND EVENING MEAL Daptomycin (Daptomycin) 500 Mg Inj 750 MG IV QD@1200 TIME CRITICAL, GIVE WITH 30 MINUTES OF MAR TIME. CONTINUE UNTIL 08/29/16. Dexamethasone (Dexamethasone) 2 Mg Tab 4 MG PO QAM Dextromethorphan-Guaifenesin (Robitussin-Dm Syrup) 1 Syp Syp 5 ML PO QID PRN for Cough Diphenoxylate W/ Atropine (Lomotil) 1 Tab Tab 2.5 MG PO Q6H PRN for Diarrhea, TAB Docusate Sodium (Colace) 100 Mg Cap 100 MG PO BID, CAP Insulin Aspart (Novolog Flexpen) 100 Units/Ml Inj UNITS SC UD PRN for SLIDING SCALE COVERAGE DIRECTED BY SLIDING SKIN BEFORE MEALS AND AT BEDTIME: 60 - 130 0 UNITS 131 - 180 2 UNITS 181 - 240 4 UNITS 241 - 300 6 UNITS 301 - 350 8 UNITS 351 - 400 10 UNITS > 400 12 UNITS AND CALL Insulin Glargine (Lantus Solostar) 100 Unit/Ml Inj 2 UNITS SC DAILY, PEN Levothyroxine Sodium (Synthroid) 100 Mcg Tab 100 MCG PO DAILY, TAB Lorazepam (Ativan) 0.5 Mg Tab 0.5 MG PO Q8 PRN for Anxiety, TAB Magnesium Hydroxide (Milk of Magnesia) 30 Ml Susp 30 ML PO UD PRN for Constipation NEEDED EVERY 24 HOURS FOR NO BOWEL MOVEMENT PAST 1 DAY Ondasetron Odt (Zofran Odt) 4 Mg Tab 4 MG SL Q6H PRN for Nausea or Vomiting, TAB Oseltamivir Phosphate (Tamiflu) 75 Mg Cap 75 MG PO DAILY, #10 CAP Oxycodone Ir (Roxicodone Ir) 5 Mg Tab 5 MG PO Q4H PRN for Moderate to Severe Pain, TAB NEEDED FOR PAIN RATED 4-10 ON A SCALE OF "0-10" Pantoprazole (Protonix) 40 Mg Tab 40 MG PO DAILY, TAB Polyethylene Glycol 3350 (Bulk (Polyethylene Glycol 3350) 1 Pow Pow 17 GM PO DAILY, GM TAKE THIS MEDICATION ONCE DAILY WITH LUNCH Sennosides-Docusate Sodium (Senna/Docusate Sodium) 1 Tab Tab 1 TAB PO DAILY TAKE THIS MEDICATION ONCE DAILY WITH LUNCH Ursodiol (Ursodiol) 300 Mg Cap 300 MG PO TID Admission Information HPI (per Admitting provider): She is a 61-year-old female with significant past medical history including 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 Apparently has been in [facility] since discharged from [facility] on 08/09/2016. She has been complaining of more bruising involving the upper part of the body and upper extremities for the last year or two and also complains to have more weakness but did not have any bleeding in the stool or any nausea or vomiting with blood. She feels generally weak and lethargic. Her blood test was done today at [facility] and she was found to have a platelet of 2. From that point, her drink waiter was consulted in [place] and he advised the patient to come to the medical center and get platelet transfusion as advised and also start on prednisone. Short hospital course in [place]. The patient was transferred to [place] on 06/16/2017 with high white count. She was diagnosed to have acute myeloid leukemia, poorly differentiated, and she received chemotherapy with FLAG-AMY and she finished that course in June. Her hospital course was complicated by GI bleed and also by VRE bacteremia. She was seen by GI and also ID, and she has been put on intravenous daptomycin and also oral acyclovir and the daptomycin should be continued until 08/29/2016. She also had an echocardiogram on 07/13/2016 that showed EF of 55% and no vegetations. Her hospital course also was complicated by pancytopenia but that was gradually improving. Again, today she was noted to have a platelet of 2 and that is the reason she is in the hospital. Physical Exam (per Admitting): GENERAL: In the Emergency Room, she is not having any acute distress. VITAL SIGNS: Temperature is 36.6, pulse is 85, blood pressure 100/71, pulse oximetry 95% on room air. HEENT: Unremarkable. She looks pale. She does have petechial hemorrhage involving the proximal part of the chest and also upper extremities. NECK: Supple. No JVD, no bruit. CHEST: Clear to auscultation bilaterally. HEART: S1, S2, regular. ABDOMEN: Soft, benign, nontender, no organomegaly. Bowel sounds present. EXTREMITIES: Negative for any edema. MUSCULOSKELETAL: Did not show any acute arthritis involving any joint. CENTRAL NERVOUS SYSTEM: She is alert, awake, oriented x3. Generally weak, but no focal sensory and/or motor deficit appreciated. Hospital Course Patient was admitted for thrombocytopenia, with a platelet count of 2. This is most likely due to her underlying diagnosis of AML, undergoing chemotherapy. Patient was not neutropenic and hemoglobin was stable in the 9's. Case was discussed with Hematology ([facility]) and patient received prednisone 60mg x1 and was transfused with 2units of platelets. Platelet count improved to 59. This was reviewed with Hematology, who had no further recommendations and agreed with discharge back to [facility] for continued rehab. Patient was continued on all of her outpatient medications, with no changes. Patient was asymptomatic, denying fevers, chills, cough, SOB, chest pain, nausea, vomiting, diarrhea, headache. Patient deemed stable for discharge. Patient will need to have a repeat CBC on 08/20/16, with results faxed to Dr. Vigil (patient's [employer] Operator in [place]). PE on discharge: General- awake; alert; NAD Eyes- EOMI; no scleral icterus Neck- no stridor; trachea midline Lungs- CTA bilaterally; no wheezes/crackles Heart- RRR; no m/r/g Abdomen- soft; NTND; nBS Back- no gross abnormalities Extremities- no c/c/e; no deformity Neuro- no gross focal deficits Skin- scattered petechiae and bruises . Total time spent on discharge = This includes examination of the patient, discharge planning, medication reconciliation, and communication with other providers. Discharge Instructions Discharge Instructions Admission Reason for Admission: Aml (Acute Myeloblastic Leukemia), Pancytopenia Discharge Discharge Diagnosis / Problem: Thrombocytopenia Discharge Goals Goal(s): Improve disease control Activity Recommendations Activity Limitations: resume your previous activity . Instructions / Follow-Up Instructions / Follow-Up Please keep your follow up appointments as previously scheduled. You will need to have a complete blood count drawn on Saturday. Current Hospital Diet Patient's current hospital diet: Regular Diet Discharge Diet Recommended Diet: Regular Diet Pending Studies Studies pending at discharge: no Medical Emergencies . Who to Call and When: Medical Emergencies: If at any time you feel your situation is an emergency, please call 911 immediately. . Non-Emergent Contact Non-Emergency issues call your: Primary Care Provider, Specialist ([employer] Operator ) . . "Provider Documentation" section prepared by Christina Quiles. VTE Core Measure Inpt VTE Proph given/why not?: SCD's Additional Copies To Shari Edward Leonard J. M.D.
[2016-08-29] MEDS ORDERED: ZVR400 PO (11:02)
[2016-08-29] MEDS ORDERED: URSO300C8 PO (11:02)
[2016-08-29] MEDS ORDERED: INSDGIPEN SC (11:02)
[2016-08-29] MEDS ORDERED: DAPT500I IV (11:02)
[2016-08-29] MEDS ORDERED: LEVO100T PO (11:02)
[2016-08-29] MEDS ORDERED: ACET-1311 PO (11:07)
[2016-08-29] MEDS ORDERED: DPH/ PO (11:07)
[2016-08-29] MEDS ORDERED: RBTDMUDL5 PO (11:07)
[2016-08-29] MEDS ORDERED: OXYC1TAB3 PO (11:07)
[2016-08-29] MEDS ORDERED: LORA-741 PO (11:07)
[2016-08-29] MEDS ORDERED: METO25TA3 PO (13:01)
[2016-09-04] MEDS ORDERED: FLUC200T PO (13:07)
[2016-10-29] MEDS ORDERED: LEVO1TAB33 PO (13:12)
== END 2016-08-18 14:33 | DRG 813 ==
LOC: ENRESERVTM → ENRESERVDT → C.EDB 17:44 → C.MED 21:06
PROVIDERS: ADMIT Internal Medicine; ATTEND Internal Medicine
DX: D69.6 Thrombocytopenia, unspecified (principal); C92.00 Acute myeloblastic leukemia, not having achieved remission; I42.9 Cardiomyopathy, unspecified; D61.818 Other pancytopenia; E03.9 Hypothyroidism, unspecified; D70.9 Neutropenia, unspecified

== ENCOUNTER → 2016-08-22 | Day surgery (SDC) | payer OTHER ==
[~2016-08-22] VITALS: Ht 167.6 cm; Wt 62.0 kg
[~2016-08-22] MED LIST changes: +ACET-1311 PO; +ACETAMINOPHEN 325 MG TAB ONE; +ACETAMINOPHEN 325 MG TAB PO SCH; +ACETAMINOPHEN 80 MG CHEWABLE TAB PO PRN; +BUDE3CAP14 PO; +DAPT500I IV; +DPH/ PO; +DiphenhydrAMINE HCL 50 MG/ML VIAL IV SCH; +FLUC200T PO; +INSDGIPEN SC; +LEVO100T PO; +LEVO1TAB33 PO; +LORA-741 PO; +MAGN400T6 PO; +MAGNESIUM IV; +METO25TA3 PO; +ONDA4TAB10 SL; -ONDA4TAB46 PO; +OXYC1TAB3 PO; +POLY1POW2 PO; -POLY335019 PO; +POTA10CA28 PO; +PRLSR20 PO; +RBTDMUDL5 PO; -SENN-65 PO; +SENN1TAB66 PO; +URSO300C8 PO; +ZVR400 PO
[2016-08-22 13:07] VITALS: BP 83/60; PULSE 120; TEMP 37.2; O2SAT 97; Ht 167.6 cm; Wt 62.0 kg
[2016-08-22 13:45] VITALS: BP 99/64; PULSE 93; TEMP 36.9; O2SAT 96
[2016-08-22 14:00] VITALS: BP 90/62; PULSE 107; O2SAT 95
[2016-08-22 14:19] VITALS: BP 97/66; PULSE 106; TEMP 37.2; O2SAT 97
== END | disposition home or self-care (01) ==
LOC: C.MTU 12:50
PROVIDERS: ATTEND Internal Medicine Hematology & Oncology
DX: C92.50 Acute myelomonocytic leukemia, not having achieved remission (principal)

== ENCOUNTER 2016-08-27 15:09 | Inpatient (IN) | payer OTHER ==
[2016-08-27] VITALS (11 sets, daily range): BP systolic 100–135; BP diastolic 62–84; PULSE 76–91; TEMP 36.5–37.1; O2SAT 95–100; Ht 167.6 cm; Wt 61.5 kg
[~2016-08-27] VITALS: Ht 167.6 cm; Wt 61.5 kg
[~2016-08-27 15:09] MED LIST changes: -ACET-1311 PO; -ACETAMINOPHEN 325 MG TAB ONE; -ACETAMINOPHEN 325 MG TAB PO SCH; -ACETAMINOPHEN 80 MG CHEWABLE TAB PO PRN; -BUDE3CAP14 PO; -CARV6.252 PO; -DAPT500I IV; -DPH/ PO; -DiphenhydrAMINE HCL 50 MG/ML VIAL IV SCH; -FLUC200T PO; -INSDGIPEN SC; -LEVO100T PO; -LEVO1TAB33 PO; -LORA-741 PO; -MAGN400T6 PO; -MAGNESIUM IV; -METO25TA3 PO; -ONDA4TAB10 SL; -OXYC1TAB3 PO; -POTA10CA28 PO; -PRLSR20 PO; -RBTDMUDL5 PO; -URSO300C8 PO; -ZVR400 PO
[2016-08-27] MEDS ORDERED: SODIUM CHLORIDE 0.9% 1000ML 1,000 ML IV STA (15:49)
--- NOTE | 2016-08-27 16:00 | EMERGENCY ROOM VISIT NOTE ---
History Report prepared by Fatoumata: Roberta Latham Under the Supervision of: Dr. Adolph Gandhi M.D. First contact with patient: 15:43 Chief Complaint: OTHER COMPLAINT Stated Complaint: REFERRED FOR BLOOD TRANSFUSION History of Present Illness The patient is a 61 year old female who presents to the Emergency Room with complaints of persistent abnormal labs that were drawn this morning at 0900. The patient states that she has a history of Leukemia and has intermittently had low blood counts. She states that today she had blood work done at [facility] and was found to have a platelet count of 7 and a hemoglobin of 6.7. The patient states that she felt short of breath today with ambulation, but denies any chest pain, vomiting, or diarrhea. She states that she was sent here for a blood transfusion and further evaluation. The patient states that she was trying to avoid coming here for the transfusion, and was trying to have it done at the outpatient clinic. She states that she was recently in the hospital 10 days ago with low blood counts. 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 She states that her last day for her antibiotic regimen is Saturday. The patient denies any increased bleeding or bruising. The patient denies any history of underlying lung disease. Per the patient's , the patient's platelet count was 29 and on Saturday it was 14. He states that she was given a bag of platelets on Saturday. Source of History: patient Onset: this morning at 0900 Position: other (global) Quality: other (abnormal labs) Timing: other (persistent) Associated Symptoms: + SOB, No chest pain, No nausea, No vomiting Review of Systems See HPI for pertinent positives & negatives. A total of 10 systems reviewed and were otherwise negative. Past Medical & Surgical Medical Problems: (1) AML (acute myeloblastic leukemia) (2) AML (acute myelogenous leukemia) (3) Hyperbilirubinemia (4) Hypothyroidism (5) Pancytopenia (6) Pneumonia (7) Takotsubo cardiomyopathy (8) Transaminitis Surgical Problems: (1) H/O colonoscopy (2) S/P anal fissurectomy Family History FH: alpha 1 antitrypsin deficiency SISTER FH: cancer FATHER MOTHER FH: diabetes mellitus FH: gallbladder disease FH: heart disease FATHER FH: hypertension FH: lung disease MOTHER Hemochromatosis SISTER Stroke MOTHER Social History Smoking Status: Never Smoker Alcohol Use: occasionally Drug Use: none Marital Status: Housing Status: lives with family Occupation Status: employed Current/Historical Medications Scheduled Acyclovir (Acyclovir), 400 MG PO BID Daptomycin (Daptomycin), 750 MG IV QD@1200 Dexamethasone (Dexamethasone), 4 MG PO QAM Docusate Sodium (Colace), 100 MG PO BID Insulin Glargine (Lantus Solostar), 2 UNITS SC DAILY Levothyroxine Sodium (Synthroid), 100 MCG PO DAILY Metoprolol Succinate (Toprol Xl), 0.5 TAB PO BID Oseltamivir Phosphate (Tamiflu), 75 MG PO DAILY Pantoprazole (Protonix), 40 MG PO DAILY Polyethylene Glycol 3350 (Bulk (Polyethylene Glycol 3350), 17 GM PO DAILY Sennosides-Docusate Sodium (Senna/Docusate Sodium), 1 TAB PO DAILY Ursodiol (Ursodiol), 300 MG PO TID Scheduled PRN Acetaminophen (Tylenol), 650 MG PO Q4H PRN for Mild Pain Bisacodyl (Dulcolax), 1 SUPP NV UD PRN for Constipation Dextromethorphan-Guaifenesin (Robitussin-Dm Syrup), 5 ML PO QID PRN for Cough Diphenoxylate W/ Atropine (Lomotil), 2.5 MG PO Q6H PRN for Diarrhea Insulin Aspart (Novolog Flexpen), UNITS SC UD PRN for SLIDING SCALE Lorazepam (Ativan), 0.5 MG PO Q8 PRN for Anxiety Magnesium Hydroxide (Milk of Magnesia), 30 ML PO UD PRN for Constipation Ondasetron Odt (Zofran Odt), 4 MG SL Q6H PRN for Nausea or Vomiting Oxycodone Ir (Roxicodone Ir), 5 MG PO Q4H PRN for Moderate to Severe Pain Allergies Coded Allergies: Penicillins (Verified Allergy, Unknown, ., 08/22/16) Sulfa Antibiotics (Verified Allergy, Unknown, ., 08/22/16) Physical Exam Vital Signs Date Time Temp Pulse Resp B/P Pulse Ox O2 Delivery O2 Flow Rate FiO2 08/27/16 17:43 36.9 88 18 100/67 97 08/27/16 15:21 36.7 112 18 113/72 98 Room Air Physical Exam GENERAL: Patient is in no acute distress. HEENT: No acute trauma, normocephalic atraumatic, mucous membranes dry, no nasal congestion, no scleral icterus. NECK: No stridor, no adenopathy, no meningismus, trachea is midline. LUNGS: Clear to auscultation bilaterally, no wheeze, no rhonchi, breath sounds equal. HEART: Without murmurs gallops or rubs, regular rate and rhythm. ABDOMEN: Soft, nontender, bowel sounds positive, no hernias, no peritonitis. EXTREMITIES: No cyanosis or edema, full range of motion of all the joints without pain or difficulty, no signs for acute trauma. NEUROLOGIC: Oriented x 3, no acute motor or sensory deficits, no focal weakness. SKIN: Multiple darline of old and new bruising, no cellulitis, pale. No jaundice, no diaphoresis. Medical Decision & Procedures Laboratory Results 08/27/16 16:15 Red Blood Count 1.98, Mean Corpuscular Volume 80.8, Mean Corpuscular Hemoglobin 28.8, Mean Corpuscular Hemoglobin Concent 35.6 08/27/16 16:15 Test 08/27/16 16:15 White Blood Count 3.20 K/uL (4.8-10.8) Red Blood Count 1.98 M/uL (4.2-5.4) Hemoglobin 5.7 g/dL (12.0-16.0) Hematocrit 16.0 % (37-47) Mean Corpuscular Volume 80.8 fL (80-100) Mean Corpuscular Hemoglobin 28.8 pg (25-34) Mean Corpuscular Hemoglobin Concent 35.6 g/dl (32-36) Platelet Count 6 K/uL (130-400) RDW Standard Deviation 44.2 fL (36.4-46.3) RDW Coefficient of Variation 14.7 % (11.5-14.5) Neutrophils % (Manual) 79.3 % Lymphocytes % (Manual) 9.5 % Monocytes % (Manual) 3.4 % Metamyelocytes % 0.9 % Myelocytes % 6.9 % Neutrophils # (Manual) 2.54 K/uL (1.4-6.5) Total Absolute Neutrophils 2.54 K/uL (1.4-6.5) Lymphocytes # (Manual) 0.30 K/uL (1.2-3.4) Total Absolute Lymphocytes 0.30 K/uL (1.2-3.4) Monocytes # (Manual) 0.11 K/uL (0.11-0.59) Metamyelocytes # 0.03 K/uL (0-0) Myelocytes # 0.22 K/uL (0-0) Platelet Estimate SIGNIFIC DECREASED Red Blood Cell Morphology Unremarkable Prothrombin Time 11.1 SECONDS (9.0-12.0) Prothromb Time International Ratio 1.0 (0.9-1.1) Activated Partial Thromboplast Time 30.2 SECONDS (21.0-31.0) Partial Thromboplastin Ratio 1.2 Anion Gap 12.0 mmol/L (3-11) Est Creatinine Clear Calc Drug Dose 89.2 ml/min Estimated GFR () 112.4 Estimated GFR (Non- 97.0 BUN/Creatinine Ratio 16.5 (10-20) Calcium Level 8.3 mg/dl (8.5-10.1) Laboratory results reviewed by me. Medications Administered Medications (Trade) Dose Ordered Sig/Adelaida Route Start Time Stop Time Status Last Admin Dose Admin Sodium Chloride (Nss 1000ml) 1,000 ml @ 125 mls/hr Q8H STAT IV 08/27/16 15:49 08/27/16 23:48 08/27/16 16:15 125 MLS/HR Prednisone (PredniSONE TAB) 60 mg TODAY@1658 PO 08/27/16 16:58 08/27/16 19:00 08/27/16 17:07 60 MG ED Course 1544: The patient was evaluated in room B10. A complete history and physical exam was performed. I discussed the treatment plan with her and she verbalized complete understanding and agreement. The patient will be evaluated for further treatment. 1549: Ordered 1000 ml @ 125 mls/hr IV. 1608: I discussed the patient's case with Melissa Manjarrez. She is going to evaluate the patient for further treatment. 1704: I reevaluated the patient and she is doing well. I discussed the lab findings with her. Medical Decision The patient is a 61 year old female who presents to the ED with complaints of abnormal labs. Differential diagnoses considered include anemia, dehydration, thrombocytopenia, leukemia, electrolyte imbalance, infection. There is no leukocytosis, in fact, the white count is somewhat low. The patient 's platelet count is low at 6. Hemoglobin is low at 5.7. Potassium slightly low, no kidney failure. There is no coagulopathy. The patient does seem pale on exam, she does not have findings suggesting active bleeding. She does not have pain. The patient is going to require platelets and packed red blood cells. Admission /observation is warranted. She did receive some IV saline during her ER stay. Irradiated platelets and irradiated packed red blood cells were ordered, neither of these blood products are yet ready for transfusion. I talked to the patient and case management. The on-call hospitalist was consulted. Of note, the patient's potassium is somewhat low, she already took a dose of oral potassium before arriving at the ER. The potassium may need further replacement while she is in the hospital. Consults Time Called: 1554 Consulting Physician: Melissa Manjarrez Returned Call: 1608 I discussed the patient's case with Melissa Manjarrez. She is going to evaluate the patient for further treatment. Impression Primary Impression: Anemia Additional Impressions: Thrombocytopenia Hypokalemia Scribe Attestation The scribe's documentation has been prepared under my direction and personally reviewed by me in its entirety. I confirm that the note above accurately reflects all work, treatment, procedures, and medical decision making performed by me. Departure Information Dispostion Being Evaluated By Hospitalist Referrals Jaylin Corral D.O. (PCP) Problem Qualifiers
[2016-08-27 16:34] LABS: MEAN CELL VOLUME 80.8 fL (80-100); MEAN CORPUSCULAR HEMOGLOBIN 28.8 pg (25-34); MEAN CORPUSCULAR HGB CONC 35.6 g/dl (32-36); PLATELET COUNT 6 K/uL (130-400); RED BLOOD COUNT 1.98 M/uL (4.2-5.4)
[2016-08-27 16:35] LABS: PARTIAL THROMBOPLASTIN RATIO 1.2; PROTHROMBIN TIME (PATIENT) 11.1 SECONDS (9.0-12.0)
[2016-08-27 16:45] LABS: BUN/CREATININE RATIO 16.5 (10-20); CALCIUM 8.3 mg/dl (8.5-10.1); CREATININE 0.64 mg/dl (0.60-1.20); POTASSIUM 2.7 mmol/L (3.5-5.1)
[2016-08-27] MEDS ORDERED: DIPHENOXYLATE/ATROPINE 2.5/0.025MG TAB PO PRN (17:00)
[2016-08-27] MEDS ORDERED: LORAZEPAM 0.5 MG TAB PO PRN (17:00)
[2016-08-27] MEDS ORDERED: OXYCODONE HCL IR 5 MG TAB (IMMEDIATE RELEASE) PO PRN (17:00)
[2016-08-27] MEDS ORDERED: ONDANSETRON INJ 2 MG/ML 2 ML VIAL IV PRN (17:00)
[2016-08-27] MEDS ORDERED: MAGNESIUM HYDROXIDE SUSP 30 ML UDC PO PRN (17:00)
[2016-08-27 17:05] LABS: COMPLETE YES; LYMPHOCYTE % 9.5 %; META ABS # 0.03 K/uL (0-0); METAMYELOCYTE % 0.9 %; MYELOCYTE % 6.9 %; NEUTROPHILS % 79.3 %; PLT ESTIMATE SIGNIFIC DECREASED
--- NOTE | 2016-08-27 17:25 | History and Physical ---
History & Physical Date & Time of Service: Aug 27, 2016 at 17:06 Chief Complaint: Referred For Blood Transfusion Primary Care Physician: Jaylin Corral D.O. History of Present Illness Source: patient, clinic records, hospital records This is a 61 year old female with PMH of AML s/p chemo in May and June with a complicated hospital course in [place] for around 90 days, which was complicated by febrile neutropenia with a VRE bacteremia on daptomycin until , hx. of Takotsubo cardiomyopathy, steroid induced hyperglycemia, autoimmune hepatitis, hypothyroidism, HSV-1 - she has been in and out of the hospital this year due to anemia and thrombocytopenia. Last admitted here on 08/17/16 due to thrombocytopenia - at that time was given two bags of platelets and her platelets improved. She has been having blood work drawn since then and had blood work drawn today showing Hgb of 6.7 and platelets of less than 10, so she presented here for transfusions. Her only symptom today was some dyspnea with exertion; she uses a walker at baseline. Past Medical/Surgical History Medical Problems: (1) AML (acute myelogenous leukemia) Status: Chronic (2) Hypothyroidism Status: Chronic (3) Pneumonia Status: Resolved (4) Takotsubo cardiomyopathy Status: Chronic Surgical Problems: (1) H/O colonoscopy Permanent Comment: 06/04/2014 diverticulosis, repeat 5 yrs Status: Chronic (2) S/P anal fissurectomy Status: Chronic Family History FH: alpha 1 antitrypsin deficiency SISTER FH: cancer FATHER MOTHER FH: diabetes mellitus FH: gallbladder disease FH: heart disease FATHER FH: hypertension FH: lung disease MOTHER Hemochromatosis SISTER Stroke MOTHER Social History Smoking Status: Never Smoker Drug Use: none Marital Status: Housing status: lives with family Occupational Status: employed Allergies Coded Allergies: Penicillins (Verified Allergy, Unknown, ., 08/22/16) Sulfa Antibiotics (Verified Allergy, Unknown, ., 08/22/16) Home Medications Scheduled Acyclovir (Acyclovir), 400 MG PO BID Daptomycin (Daptomycin), 750 MG IV QD@1200 Dexamethasone (Dexamethasone), 4 MG PO QAM Docusate Sodium (Colace), 100 MG PO BID Insulin Glargine (Lantus Solostar), 2 UNITS SC DAILY Levothyroxine Sodium (Synthroid), 100 MCG PO DAILY Metoprolol Succinate (Toprol Xl), 0.5 TAB PO BID Oseltamivir Phosphate (Tamiflu), 75 MG PO DAILY Pantoprazole (Protonix), 40 MG PO DAILY Polyethylene Glycol 3350 (Bulk (Polyethylene Glycol 3350), 17 GM PO DAILY Sennosides-Docusate Sodium (Senna/Docusate Sodium), 1 TAB PO DAILY Ursodiol (Ursodiol), 300 MG PO TID Scheduled PRN Acetaminophen (Tylenol), 650 MG PO Q4H PRN for Mild Pain Bisacodyl (Dulcolax), 1 SUPP MT UD PRN for Constipation Dextromethorphan-Guaifenesin (Robitussin-Dm Syrup), 5 ML PO QID PRN for Cough Diphenoxylate W/ Atropine (Lomotil), 2.5 MG PO Q6H PRN for Diarrhea Insulin Aspart (Novolog Flexpen), UNITS SC UD PRN for SLIDING SCALE Lorazepam (Ativan), 0.5 MG PO Q8 PRN for Anxiety Magnesium Hydroxide (Milk of Magnesia), 30 ML PO UD PRN for Constipation Ondasetron Odt (Zofran Odt), 4 MG SL Q6H PRN for Nausea or Vomiting Oxycodone Ir (Roxicodone Ir), 5 MG PO Q4H PRN for Moderate to Severe Pain Review of Systems Constitutional: + weakness, + weight loss, No chills, No fatigue, No fever, No sweats Respiratory: + dyspnea on exertion, + shortness of breath, No cough, No dyspnea at rest, No hemoptysis, No sputum, No wheezing Cardiovascular: No chest pain, No edema, No orthopnea, No palpitations Abdomen: No GI bleeding, No constipation, No diarrhea, No nausea, No pain, No vomiting Musculoskeletal: No joint pain, No muscle pain Genitourinary - Female: No dysuria, No hematuria, No urinary frequency, No urinary incontinence, No urinary retention, No urinary urgency Psychiatric: No anxiety, No depression symptoms, No insomnia Endocrine: No fatigue Hematologic / Lymphatic: + abnormal bleeding/bruising, No night sweats, No swollen lymph nodes Integumentary: No rash Allergic / Immunologic: No environmental allergies, No seasonal allergies Physical Exam Vital Signs Date Time Temp Pulse Resp B/P Pulse Ox O2 Delivery O2 Flow Rate FiO2 08/27/16 15:21 36.7 112 18 113/72 98 Room Air General Appearance: no apparent distress, + thin Head: normocephalic, atraumatic Eyes: normal inspection ENT: hearing grossly normal Neck: supple Respiratory/Chest: chest non-tender, lungs clear, normal breath sounds, no respiratory distress, no accessory muscle use Cardiovascular: regular rate, rhythm, no edema, no murmur Abdomen/GI: normal bowel sounds, non tender, soft, no organomegaly Extremities/Musculoskelatal: normal inspection, no calf tenderness, normal capillary refill, no pedal edema, normal range of motion Neurologic/Psych: client liaison II-XII nml as tested, no motor/sensory deficits, alert, normal mood/affect, oriented x 3 Skin: + pertinent finding (bruising throughout body) Lymphatic: no adenopathy Diagnostics Laboratory Results Results Past 24 Hours Test 08/27/16 16:15 Range/Units White Blood Count 3.20 4.8-10.8 K/uL Red Blood Count 1.98 4.2-5.4 M/uL Hemoglobin 5.7 12.0-16.0 g/dL Hematocrit 16.0 37-47 % Mean Corpuscular Volume 80.8 80-100 fL Mean Corpuscular Hemoglobin 28.8 25-34 pg Mean Corpuscular Hemoglobin Concent 35.6 32-36 g/dl Platelet Count 6 130-400 K/uL RDW Standard Deviation 44.2 36.4-46.3 fL RDW Coefficient of Variation 14.7 11.5-14.5 % Neutrophils % (Manual) 79.3 % Lymphocytes % (Manual) 9.5 % Monocytes % (Manual) 3.4 % Metamyelocytes % 0.9 % Myelocytes % 6.9 % Neutrophils # (Manual) 2.54 1.4-6.5 K/uL Total Absolute Neutrophils 2.54 1.4-6.5 K/uL Lymphocytes # (Manual) 0.30 1.2-3.4 K/uL Total Absolute Lymphocytes 0.30 1.2-3.4 K/uL Monocytes # (Manual) 0.11 0.11-0.59 K/uL Metamyelocytes # 0.03 0-0 K/uL Myelocytes # 0.22 0-0 K/uL Platelet Estimate SIGNIFIC DECREASED Red Blood Cell Morphology Unremarkable Prothrombin Time 11.1 9.0-12.0 SECONDS Prothromb Time International Ratio 1.0 0.9-1.1 Activated Partial Thromboplast Time 30.2 21.0-31.0 SECONDS Partial Thromboplastin Ratio 1.2 Sodium Level 140 136-145 mmol/L Potassium Level 2.7 3.5-5.1 mmol/L Chloride Level 103 98-107 mmol/L Carbon Dioxide Level 25 21-32 mmol/L Anion Gap 12.0 3-11 mmol/L Blood Urea Nitrogen 11 7-18 mg/dl Creatinine 0.64 0.60-1.20 mg/dl Est Creatinine Clear Calc Drug Dose 89.2 ml/min Estimated GFR () 112.4 Estimated GFR (Non- 97.0 BUN/Creatinine Ratio 16.5 10-20 Random Glucose 161 70-99 mg/dl Calcium Level 8.3 8.5-10.1 mg/dl Impression Assessment and Plan This is a 61 year old female with PMH of AML, febrile neutropenia/VRE bacteremia , hypothyroidism presents with pancytopenia Thrombocytopenia * patient presented with platelet count of 6 * was here on 08/17 with platelet count of 2; given two bags of platelets with good improvement * goal platelets as per order picker/assembler at [place] is > 10 * irradiated platelets ordered and will transfuse * prednisone 60mg one time dose now * restart Decadron at home dose in AM * recheck CBC in AM * may need to speak with order picker/assembler at [place] in AM if no response Symptomatic Anemia * patient presented with shortness of breath, Hgb of 5.7 * type and cross; and transfuse two units PRBCs * monitor H/H Hypokalemia * has a history of hypokalemia, recurrent * check EKG * replace and recheck in AM * check Mg AML * in remission, last chemotherapy in June * follows with hematology in [place] * continue abx, antivirals, monitor blood counts VRE bacteremia * patient with VRE infection at [place] * has been on Daptomycin since then * Continue Daptomycin until 08/29, which is her last dose * echo was performed in July, with no vegetations on valves Hypothyroidism * cont. home dose of Synthroid HSV 1 * cont. Acyclovir DVT ppx * SCDs FULL CODE as per discussion with patient VTE Prophylaxis VTE Risk Assessment Done? Y/N: Yes Risk Level: Moderate
[2016-08-27] MEDS ORDERED: GLUCAGON FOR INJ 1 MG VIAL SQ PRN (19:15)
[2016-08-27] MEDS ORDERED: DEXTROSE 50% 50 ML SYR IV PRN (19:15)
[2016-08-27] MEDS ORDERED: GLUCOSE 40% GEL 15 GM TUBE PO PRN (19:15)
[2016-08-27] MEDS ORDERED: GLUCOSE 10 TABS/TUBE PO PRN (19:15)
[2016-08-27] MEDS: POTASSIUM CHLR 10 MEQ / WTR 10 MEQ in PREMIXED WATER 100 ML IV SCH ×4 (19:34→22:48)
[2016-08-27] MEDS: DOCUSATE SODIUM 100 MG CAP PO SCH (20:56)
[2016-08-27] MEDS: INSULIN ASPART 100 UNITS/ML 3 ML PEN SC SCH (20:58)
[2016-08-27] MEDS: METOPROLOL SUCC 25MG EXT REL TAB PO SCH (20:59)
[2016-08-27] MEDS: URSODIOL 300 MG CAP PO SCH (21:00)
[2016-08-27] MEDS: ACYCLOVIR 400 MG TAB PO SCH (21:00)
[2016-08-28] VITALS (11 sets, daily range): BP systolic 120–143; BP diastolic 86–93; PULSE 73–88; TEMP 36.3–36.8; O2SAT 93–99
[2016-08-28] MEDS: POTASSIUM CHLR 10 MEQ / WTR 10 MEQ in PREMIXED WATER 100 ML IV SCH ×2 (01:09)
[2016-08-28] MEDS ORDERED: LEVOTHYROXINE 100 MCG TAB PO SCH (06:00)
[2016-08-28 06:01] LABS: HEMATOCRIT 26.9 % (37-47); MEAN CELL VOLUME 81.8 fL (80-100); MEAN CORPUSCULAR HEMOGLOBIN 28.9 pg (25-34); MEAN CORPUSCULAR HGB CONC 35.3 g/dl (32-36); MEAN PLATELET VOLUME 11.1 fL (7.4-10.4); PLATELET COUNT 28 K/uL (130-400); RED BLOOD COUNT 3.29 M/uL (4.2-5.4); WHITE BLOOD COUNT 3.22 K/uL (4.8-10.8)
[2016-08-28 06:12] LABS: BUN/CREATININE RATIO 17.5 (10-20); CALCIUM 8.3 mg/dl (8.5-10.1); CREATININE 0.61 mg/dl (0.60-1.20); MAGNESIUM 1.5 mg/dl (1.8-2.4); POTASSIUM 3.9 mmol/L (3.5-5.1)
[2016-08-28] MEDS: MAGNESIUM SULFATE 1GM / D5W 1 GM in PREMIXED IN D5W 100 ML IV SCH ×2 (07:18→07:30)
[2016-08-28] MEDS: URSODIOL 300 MG CAP PO SCH (07:22)
[2016-08-28] MEDS: DOCUSATE SODIUM 100 MG CAP PO SCH (07:23)
[2016-08-28] MEDS: METOPROLOL SUCC 25MG EXT REL TAB PO SCH (07:23)
[2016-08-28] MEDS: ACYCLOVIR 400 MG TAB PO SCH (07:23)
[2016-08-28] MEDS ORDERED: MAGNESIUM SULFATE 1GM / D5W 1 GM in PREMIXED IN D5W 100 ML IV STA (08:45)
[2016-08-28] MEDS ORDERED: PANTOprazole SOD 40 MG TAB PO SCH (09:00)
[2016-08-28] MEDS ORDERED: OSELTAMIVIR PHOSPHATE 75 MG CAP PO SCH (09:00)
[2016-08-28] MEDS ORDERED: INSULIN GLARGINE SOLOSTAR 100 UNITS/ML 3 ML PEN SC SCH (09:00)
[2016-08-28] MEDS ORDERED: DOCUSATE SODIUM/SENNA 50/8.6MG TAB PO SCH (09:00)
[2016-08-28] MEDS: INSULIN ASPART 100 UNITS/ML 3 ML PEN SC SCH ×2 (09:12→11:00)
--- NOTE | 2016-08-28 10:41 | Progress Note ---
Medicine Progress Note Date & Time of Visit: Aug 28, 2016 at 10:21. (Bambi Santillan ., MOO) Subjective Pt admitted yesterday for pancytopenia. Received 2 units irradiated pRBCs and 2 units irradiated platelets overnight. She states her exertional SOB has resolved , she feels back to her baseline and she is eager to go home. Pt denies chest pain, SOB, abd pain, N/V, constipation, diarrhea, hematochezia, melena or urinary sxs. (Bambi Santillan, SHANE-C) She remains awake/a;ert and is feeling much better today. Tiredness and fatigueness has resolved.No SOB. No other new change or complaint. (Michael Houston MD) Objective Last 8 Hrs Date Time Temp Pulse Resp B/P Pulse Ox O2 Delivery O2 Flow Rate FiO2 08/28/16 08:46 36.3 80 16 120/86 97 Room Air 08/28/16 08:00 Room Air 08/28/16 06:15 36.7 88 18 125/89 96 08/28/16 05:48 36.8 88 17 129/91 96 08/28/16 05:16 36.6 83 18 125/88 97 08/28/16 04:02 Room Air 08/28/16 03:45 36.6 83 18 133/88 97 Room Air 08/28/16 02:40 36.7 73 18 137/87 96 Physical Exam: General-Pt is sitting up comfortably in bed Eyes-anicteric Neck-supple; no JVD Lungs-CTA throughout; no wheezes or crackles noted Heart-RRR no M/G/R Abdomen-BS normoactive; soft and non-tender to palpation Skin-diffuse petechiae and ecchymosis Neuro-A&O x 3; no focal neuro deficits Laboratory Results: Last 24 Hours Test 08/27/16 16:15 08/27/16 19:00 08/27/16 20:31 08/28/16 05:00 White Blood Count 3.20 K/uL 3.22 K/uL Red Blood Count 1.98 M/uL 3.29 M/uL Hemoglobin 5.7 g/dL 9.5 g/dL Hematocrit 16.0 % 26.9 % Mean Corpuscular Volume 80.8 fL 81.8 fL Mean Corpuscular Hemoglobin 28.8 pg 28.9 pg Mean Corpuscular Hemoglobin Concent 35.6 g/dl 35.3 g/dl Platelet Count 6 K/uL 28 K/uL RDW Standard Deviation 44.2 fL 41.3 fL RDW Coefficient of Variation 14.7 % 13.9 % Neutrophils % (Manual) 79.3 % Lymphocytes % (Manual) 9.5 % Monocytes % (Manual) 3.4 % Metamyelocytes % 0.9 % Myelocytes % 6.9 % Neutrophils # (Manual) 2.54 K/uL Total Absolute Neutrophils 2.54 K/uL Lymphocytes # (Manual) 0.30 K/uL Total Absolute Lymphocytes 0.30 K/uL Monocytes # (Manual) 0.11 K/uL Metamyelocytes # 0.03 K/uL Myelocytes # 0.22 K/uL Platelet Estimate SIGNIFIC DECREASED Red Blood Cell Morphology Unremarkable Prothrombin Time 11.1 SECONDS Prothromb Time International Ratio 1.0 Activated Partial Thromboplast Time 30.2 SECONDS Partial Thromboplastin Ratio 1.2 Sodium Level 140 mmol/L 138 mmol/L Potassium Level 2.7 mmol/L 3.9 mmol/L Chloride Level 103 mmol/L 103 mmol/L Carbon Dioxide Level 25 mmol/L 24 mmol/L Anion Gap 12.0 mmol/L 11.0 mmol/L Blood Urea Nitrogen 11 mg/dl 11 mg/dl Creatinine 0.64 mg/dl 0.61 mg/dl Est Creatinine Clear Calc Drug Dose 89.2 ml/min 91.8 ml/min Estimated GFR () 112.4 114.2 Estimated GFR (Non- 97.0 98.5 BUN/Creatinine Ratio 16.5 17.5 Random Glucose 161 mg/dl 206 mg/dl Calcium Level 8.3 mg/dl 8.3 mg/dl Bedside Glucose 137 mg/dl 171 mg/dl Mean Platelet Volume 11.1 fL Magnesium Level 1.5 mg/dl (Bambi Santillan ., KIKEC) Assessment & Plan THROMBOCYTOPENIA patient presented with platelet count of 6; admitted 08/17 with platelet count of 2-->given two bags of platelets with good improvement -admitted to telemetry -transfused 2 units irradiated platelets; plt count 28 today -goal platelets as per commercial ocean clammer at [place] is > 10 -cont Decadron SYMPTOMATIC ANEMIA -patient presented with exertional shortness of breath, Hgb of 5.7 -transfused 2 units PRBCs -HgB 9.7 today and exertional SOB has resolved HYPOKALEMIA/HYPOMAGNESIA: IMPROVED -K+ 2.7; Mag 1.5 -improvement after replenished AML -in remission, last chemotherapy in June -follows with hematology in [place] (Dr. Nelson Vigil) -cont abx, antivirals, monitor blood counts VRE BACTEREMIA -patient with VRE infection at [place] -has been on Daptomycin since then -cont Daptomycin until 08/29, which is her last dose -echo was performed in July, with no vegetations on valves HYPOTHYROIDISM -cont Synthroid HSV 1 -cont Acyclovir DVT PROPHYLAXIS -SCDs CODE STATUS FULL CODE as per discussion with patient DISPO -Pt will likely be discharged home this afternoon. Pt seen in collaboration with Dr. Houston. Please see his addendum for further details. Thanks! Current Inpatient Medications: Current Inpatient Medications Medications (Trade) Dose Ordered Sig/Adelaida Route Start Time Stop Time Status Last Admin Dose Admin Acyclovir (Zovirax Tab) 400 mg BIDM PO 08/27/16 21:00 09/26/16 20:59 08/28/16 07:23 400 MG Diphenoxylate HCl/ Atropine (Lomotil Tab) 1 tab Q6H PRN PO 08/27/16 17:00 09/26/16 16:59 Docusate Sodium (coLACE CAP) 100 mg BID PO 08/27/16 21:00 09/26/16 20:59 Insulin Glargine (Lantus Solostar Pen) 2 unit DAILY SC 08/28/16 09:00 09/27/16 08:59 08/28/16 09:13 2 UNIT Levothyroxine Sodium (Synthroid Tab) 100 mcg DAILYBB PO 08/28/16 06:00 09/27/16 06:59 08/28/16 06:05 100 MCG Lorazepam (Ativan Tab) 0.5 mg Q8 PRN PO 08/27/16 17:00 09/26/16 16:59 08/28/16 00:17 0.5 MG Magnesium Hydroxide (Milk Of Magnesia Susp) 30 ml DAILY PRN PO 08/27/16 17:00 09/26/16 16:59 Metoprolol Succinate (Toprol Xl Tab) 12.5 mg BID PO 08/27/16 21:00 09/26/16 20:59 08/28/16 07:23 12.5 MG Oseltamivir Phosphate (Tamiflu Cap) 75 mg DAILY PO 08/28/16 09:00 09/02/16 08:59 Oxycodone HCl (Roxicodone Immediate Rel Tab) 5 mg Q4H PRN PO 08/27/16 17:00 09/10/16 16:59 Pantoprazole Sodium (Protonix Tab) 40 mg DAILY PO 08/28/16 09:00 09/27/16 08:59 08/28/16 07:23 40 MG Senna/Docusate Sodium (Senokot S Tab) 1 tab DAILY PO 08/28/16 09:00 09/27/16 08:59 Ursodiol (Actigall Cap) 300 mg TID PO 08/27/16 21:00 09/26/16 20:59 08/28/16 07:22 300 MG Ondansetron HCl (Zofran Inj) 4 mg Q6H PRN IV 08/27/16 17:00 09/26/16 16:59 Glucose (Glucose 40% Gel) 15-30 GRAMS 15 GRAMS... UD PRN PO 08/27/16 19:15 09/26/16 19:14 Glucose (Glucose Chew Tab) 4-8 Tablets 4 Tabl... UD PRN PO 08/27/16 19:15 09/26/16 19:14 Dextrose (Dextrose 50% 50ML Syringe) 25-50ML OF 50% DW IV FOR... UD PRN IV 08/27/16 19:15 09/26/16 19:14 Glucagon 1 mg 1 mg UD PRN SQ 08/27/16 19:15 09/26/16 19:14 Daptomycin/Sodium Chloride (Cubicin IV/Nss 50ml) 65 ml @ 120 mls/hr Q24H IV 08/28/16 12:00 08/29/16 23:59 Insulin Aspart SLIDING SCALE ACHS SC 08/27/16 21:00 09/26/16 20:59 08/28/16 09:12 2 UNITS Magnesium Sulfate/ Prmx (Magnesium Sulfate/Premixed D5W) 100 ml @ 100 mls/hr NOW STAT IV 08/28/16 08:45 1/24/17 09:44 (Bambi Santillan, MOO) Patient is clinically stable and will be discharged home later today. She was able to ambulate in the hallway without any new symptoms. (Micahel Houston MD)
--- NOTE | 2016-08-28 11:47 | Medical Consult ---
Consultation Date of Consultation: Aug 28, 2016. 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 She primarily follows with [facility] with Dr. Vigil. she underwent induction chemotherapy with 7+3 cytarabine and daunorubicin in 05/2016. She recently obtained a 2nd opinion at [facility]; it has been recommended that she start on azacitidine for a couple of cycles prior to a tentative plan for a transplant. She is having routine CBCs drawn Saturday and Saturday for her transfusion-dependent cytopenias. She last received platelet transfusion on 08/24/2016 at [facility]. The patient had her routine CBC drawn yesterday; however, by the time she received the results of the CBC it was early afternoon and outpatient transfusion cannot be arranged for the patient. Hence, she reported to [facility] Emergency Room. She was then admitted to receive 2 units of irradiated PRBCs and 2 units of irradiated platelets. Prior to admission, she admits that preparing her cereal yesterday made her dyspneic. She feels her respiratory symptoms have improved since transfusion. She also had a mild headache. She was not having chest pain or dizziness. She has not had any bleeding from any site. She reports occasional nausea, but she has Zofran that adequately controls this symptom. She generally eats small meals frequently. She states that her bowels are regular. She has not noted fever, cough or upper respiratory type symptoms. Past Medical/Surgical History Medical Problems: (1) Acute myelogenous leukemia Status: Acute (2) AML (acute myelogenous leukemia) Status: Acute (3) AML (acute myeloid leukemia) Status: Acute (4) Anemia Status: Acute (5) Elevated bilirubin Status: Acute (6) Hypokalemia Status: Acute (7) RUQ abdominal pain Status: Acute (8) Sepsis Status: Acute (9) Thrombocytopenia Status: Acute (10) Thrombocytopenia Status: Acute (11) Thrombocytopenia Status: Acute (12) UTI (urinary tract infection) Status: Acute (13) Vasovagal syncope Status: Acute Family History FH: alpha 1 antitrypsin deficiency SISTER FH: cancer FATHER MOTHER FH: diabetes mellitus FH: gallbladder disease FH: heart disease FATHER FH: hypertension FH: lung disease MOTHER Hemochromatosis SISTER Stroke MOTHER Social History Smoking Status: Never Smoker Drug Use: none Marital Status: Housing Status: lives with family Occupation Status: employed Allergies Coded Allergies: Penicillins (Verified Allergy, Unknown, ., 08/28/16) Sulfa Antibiotics (Verified Allergy, Unknown, ., 08/28/16) Current Inpatient Medications Current Inpatient Medications Medications (Trade) Dose Ordered Sig/Adelaida Route Start Time Stop Time Status Last Admin Dose Admin Acyclovir (Zovirax Tab) 400 mg BIDM PO 08/27/16 21:00 09/26/16 20:59 08/28/16 07:23 400 MG Diphenoxylate HCl/ Atropine (Lomotil Tab) 1 tab Q6H PRN PO 08/27/16 17:00 09/26/16 16:59 Docusate Sodium (coLACE CAP) 100 mg BID PO 08/27/16 21:00 09/26/16 20:59 Insulin Glargine (Lantus Solostar Pen) 2 unit DAILY SC 08/28/16 09:00 09/27/16 08:59 08/28/16 09:13 2 UNIT Levothyroxine Sodium (Synthroid Tab) 100 mcg DAILYBB PO 08/28/16 06:00 09/27/16 06:59 08/28/16 06:05 100 MCG Lorazepam (Ativan Tab) 0.5 mg Q8 PRN PO 08/27/16 17:00 09/26/16 16:59 08/28/16 00:17 0.5 MG Magnesium Hydroxide (Milk Of Magnesia Susp) 30 ml DAILY PRN PO 08/27/16 17:00 09/26/16 16:59 Metoprolol Succinate (Toprol Xl Tab) 12.5 mg BID PO 08/27/16 21:00 09/26/16 20:59 08/28/16 07:23 12.5 MG Oseltamivir Phosphate (Tamiflu Cap) 75 mg DAILY PO 08/28/16 09:00 09/02/16 08:59 Oxycodone HCl (Roxicodone Immediate Rel Tab) 5 mg Q4H PRN PO 08/27/16 17:00 09/10/16 16:59 Pantoprazole Sodium (Protonix Tab) 40 mg DAILY PO 08/28/16 09:00 09/27/16 08:59 08/28/16 07:23 40 MG Senna/Docusate Sodium (Senokot S Tab) 1 tab DAILY PO 08/28/16 09:00 09/27/16 08:59 Ursodiol (Actigall Cap) 300 mg TID PO 08/27/16 21:00 09/26/16 20:59 08/28/16 07:22 300 MG Ondansetron HCl (Zofran Inj) 4 mg Q6H PRN IV 08/27/16 17:00 09/26/16 16:59 Glucose (Glucose 40% Gel) 15-30 GRAMS 15 GRAMS... UD PRN PO 08/27/16 19:15 09/26/16 19:14 Glucose (Glucose Chew Tab) 4-8 Tablets 4 Tabl... UD PRN PO 08/27/16 19:15 09/26/16 19:14 Dextrose (Dextrose 50% 50ML Syringe) 25-50ML OF 50% DW IV FOR... UD PRN IV 08/27/16 19:15 09/26/16 19:14 Glucagon 1 mg 1 mg UD PRN SQ 08/27/16 19:15 09/26/16 19:14 Daptomycin/Sodium Chloride (Cubicin IV/Nss 50ml) 65 ml @ 120 mls/hr Q24H IV 08/28/16 12:00 08/29/16 23:59 Insulin Aspart (novoLOG ASPART) SLIDING SCALE ACHS SC 08/27/16 21:00 09/26/16 20:59 08/28/16 09:12 2 UNITS Review of Systems Constitutional: + fatigue, No chills, No fever, No sweats Respiratory: + dyspnea on exertion (- improved since tranfusion), No cough, No sputum, No wheezing Cardiovascular: + problem reported (patient noted forceful pulse in neck yesterday- improved today), No chest pain Abdomen: + nausea, No GI bleeding, No constipation, No diarrhea, No pain Genitourinary - Female: No hematuria Neurologic: + weakness, No vertigo Hematologic / Lymphatic: + abnormal bleeding/bruising (diffuse bruising of extremities and trunk due to severe thrombocytopenia), No clotting problems Physical Exam Date Time Temp Pulse Resp B/P Pulse Ox O2 Delivery O2 Flow Rate FiO2 08/28/16 08:46 36.3 80 16 120/86 97 Room Air 08/28/16 08:00 Room Air 08/28/16 06:15 36.7 88 18 125/89 96 08/28/16 05:48 36.8 88 17 129/91 96 08/28/16 05:16 36.6 83 18 125/88 97 08/28/16 04:02 Room Air 08/28/16 03:45 36.6 83 18 133/88 97 Room Air 08/28/16 02:40 36.7 73 18 137/87 96 08/28/16 01:34 36.6 75 18 137/90 93 08/28/16 00:34 36.6 77 18 143/91 97 08/28/16 00:04 36.6 80 18 135/93 96 08/28/16 00:02 Room Air 08/27/16 23:40 36.7 76 17 130/84 95 08/27/16 22:40 36.5 83 18 131/81 97 08/27/16 21:39 36.7 87 17 123/83 98 08/27/16 21:09 36.7 90 17 135/80 96 08/27/16 20:47 36.6 89 16 121/78 100 08/27/16 20:46 36.6 89 18 121/78 08/27/16 20:04 Room Air 08/27/16 19:07 36.9 90 16 111/73 99 08/27/16 18:45 37.1 91 18 119/78 98 Room Air 08/27/16 18:45 Room Air 08/27/16 18:08 36.9 90 16 111/73 99 08/27/16 17:55 36.8 90 16 106/62 98 08/27/16 17:43 88 18 100/67 97 Room Air 08/27/16 17:43 36.9 88 18 100/67 97 08/27/16 15:21 36.7 112 18 113/72 98 Room Air General Appearance: no apparent distress, + thin, + pertinent finding ( chronically ill appearing) ENT: hearing grossly normal Respiratory/Chest: lungs clear, normal breath sounds, no respiratory distress, no accessory muscle use Cardiovascular: regular rate, rhythm, no edema Abdomen/GI: normal bowel sounds, non tender, soft, no organomegaly Extremities/Musculoskelatal: no calf tenderness, + pertinent finding (diffuse ecchymoses in varying stages of healing on extremities) Neurologic/Psych: no motor/sensory deficits, alert, oriented x 3 Skin: warm/dry, + pallor Laboratory Results 08/27/16 16:15 Red Blood Count 1.98, Mean Corpuscular Volume 80.8, Mean Corpuscular Hemoglobin 28.8, Mean Corpuscular Hemoglobin Concent 35.6 08/28/16 05:00 08/27/16 16:15 08/28/16 05:00 Test 08/27/16 16:15 08/27/16 19:00 08/27/16 20:31 08/28/16 05:00 White Blood Count 3.20 K/uL (4.8-10.8) Red Blood Count 1.98 M/uL (4.2-5.4) 3.29 M/uL (4.2-5.4) Hemoglobin 5.7 g/dL (12.0-16.0) Hematocrit 16.0 % (37-47) Mean Corpuscular Volume 80.8 fL (80-100) 81.8 fL (80-100) Mean Corpuscular Hemoglobin 28.8 pg (25-34) 28.9 pg (25-34) Mean Corpuscular Hemoglobin Concent 35.6 g/dl (32-36) 35.3 g/dl (32-36) Platelet Count 6 K/uL (130-400) RDW Standard Deviation 44.2 fL (36.4-46.3) 41.3 fL (36.4-46.3) RDW Coefficient of Variation 14.7 % (11.5-14.5) 13.9 % (11.5-14.5) Neutrophils % (Manual) 79.3 % Lymphocytes % (Manual) 9.5 % Monocytes % (Manual) 3.4 % Metamyelocytes % 0.9 % Myelocytes % 6.9 % Neutrophils # (Manual) 2.54 K/uL (1.4-6.5) Total Absolute Neutrophils 2.54 K/uL (1.4-6.5) Lymphocytes # (Manual) 0.30 K/uL (1.2-3.4) Total Absolute Lymphocytes 0.30 K/uL (1.2-3.4) Monocytes # (Manual) 0.11 K/uL (0.11-0.59) Metamyelocytes # 0.03 K/uL (0-0) Myelocytes # 0.22 K/uL (0-0) Platelet Estimate SIGNIFIC DECREASED Red Blood Cell Morphology Unremarkable Prothrombin Time 11.1 SECONDS (9.0-12.0) Prothromb Time International Ratio 1.0 (0.9-1.1) Activated Partial Thromboplast Time 30.2 SECONDS (21.0-31.0) Partial Thromboplastin Ratio 1.2 Anion Gap 12.0 mmol/L (3-11) 11.0 mmol/L (3-11) Est Creatinine Clear Calc Drug Dose 89.2 ml/min 91.8 ml/min Estimated GFR () 112.4 114.2 Estimated GFR (Non- 97.0 98.5 BUN/Creatinine Ratio 16.5 (10-20) 17.5 (10-20) Calcium Level 8.3 mg/dl (8.5-10.1) 8.3 mg/dl (8.5-10.1) Bedside Glucose 137 mg/dl (70-90) 171 mg/dl (70-90) Mean Platelet Volume 11.1 fL (7.4-10.4) Magnesium Level 1.5 mg/dl (1.8-2.4) Assessment & Plan (1) AML (acute myeloblastic leukemia) Assessment & Plan: Patient is following primarily with [facility], Dr. 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 She was discharged 08/09/16. Remaning on daptomycin until tomorrow for VRA bacteremia. She reports that azacitidine has been recommended for a couple cycles prior to a tentative transplant through [facility]. She has transfusion-dependent anemia and thrombocytopenia requiring CBC monitoring twice a week on Saturday and . Her CBC yesterday revealed a hemoglobin of 5.7 and platelet count of 6, but by the time transfusion orders were recommended, it was early afternoon and patient would not be able to receive the blood products that she needed. Hence she came to [facility] emergency room and was admitted. She received 2 units of irradiated PRBCs and 2 units of irradiated platelets. Her hemoglobin has increased to 9.5 and platelet count is now at 28,000. She states that her cardiopulmonary symptoms have improved and she is not having active bleeding, though diffuse ecchymoses noted on extremities and upper trunk related to severe thrombocytopenia. Continue to monitor CBC twice weekly, with next check on on outpatient basis; while inpatient, CBC daily. Discussed with patient about better triage on our side of her CBC results on Saturday / as an effort to avoid hospitalization for routine blood transfusion. (2) Pancytopenia Assessment & Plan: See above. (3) Hypokalemia Status: Acute Assessment & Plan: Patient reports long-term hypokalemia and her wire cutter 's had started her on potassium chloride 10 mEq daily. She states with her diagnosis of the AML her potassium chloride had been discontinued at some point. On admission, her potassium was 2.7. She has received 60 mEq of KCL and 3 g of magnesium. Her magnesium is 1.5 today and potassium 3.9. The patient states she has a long standing history of hypokalemia; though it may be exacerbated by her taking daily steroid for her hematologic condition. I reviewed her discharge summary from [facility] and she was to be taking 10 mEq of KCl daily; patient does not seem to be aware of this recommendation so will be sure she is notified. She may also require discharge on magnesium supplement in view of mild hypomagnesemia. I discussed case with Bernarda Johnson PA-C and agree with her H and P and assessment Patient was discharged so she will follow up with hematology
[2016-08-28] MEDS ORDERED: DAPTOmycin IV 750 MG in SODIUM CHLORIDE 0.9% 50ML 50 ML IV SCH (12:00)
[2016-08-28] MEDS ORDERED: DAPTOmycin 500 MG VIAL IV SCH (12:00)
--- NOTE | 2016-08-28 12:57 | Discharge Instructions ---
Discharge Instructions Admission Reason for Admission: Aml, Anemia, Thrombocytopenia Discharge Discharge Diagnosis / Problem: Chronic Anemia & Thrombocytopenia Discharge Goals Goal(s): Decrease discomfort, Improve function, Increase independence, Improve disease control, Improve nutritional status, Learn about illness Activity Recommendations Activity Limitations: resume your previous activity Exercise/Sports Limitations: as tolerated Shower/Bathe: no limitations Driving or Machine Use: resume 1 day after discharge . Current Hospital Diet Patient's current hospital diet: Regular Diet Discharge Diet Recommended Diet: AHA Diet (Heart Healthy) Fluid Restriction: None Pending Studies Studies pending at discharge: no Medical Emergencies . Who to Call and When: Medical Emergencies: If at any time you feel your situation is an emergency, please call 911 immediately. . Non-Emergent Contact Non-Emergency issues call your: Primary Care Provider (Have appointment with PCP on 09/04/2016 @ 11.30 AM.), Oncologist Call Non-Emergent contact if: temperature is above 101 . . "Provider Documentation" section prepared by Michael Houston. VTE Core Measure Inpt VTE Proph given/why not?: SCD's
--- NOTE | 2016-08-28 12:59 | Discharge Summary ---
Discharge Summary Admission Date: Aug 27, 2016 at 17:05 Discharge Date: Aug 28, 2016 Discharge Disposition: Home Principal Diagnosis: Symptomatic Anemia Thrombocytopenia Hypokalemia(Resolved) Hypomagnesemia Secondary Diagnoses/Problems: History AML VRE Bacteremia History HSV I Infection Hypothyroidism Procedures: PRBC Transfusion Vaccinations: NONE Consultations: Hematology/Oncology Pending Studies/Follow-Up: Follow up CBC is already scheduled for coming Medication Reconciliation Continued Medications: Acetaminophen (Tylenol) 325 Mg Tab 650 MG PO Q4H PRN for Mild Pain, TAB NEEDED FOR MILD PAIN RATED 1-3 ON A SCALE OF "0-10". MAXIMUM 3 GM APAP/24 HOURS. Acyclovir (Acyclovir) 400 Mg Tab 400 MG PO BID TAKE THIS MEDICATION WITH BREAKFAST AND EVENING MEAL Bisacodyl (Dulcolax) 10 Mg Sup 1 SUPP MO UD PRN for Constipation, SUP NEEDED EVERY 24 HOURS FOR NO BOWEL MOVEMENT FOR 2 DAYS Daptomycin (Daptomycin) 500 Mg Inj 750 MG IV QD@1200 TIME CRITICAL, GIVE WITH 30 MINUTES OF MAR TIME. CONTINUE UNTIL 08/29/16. Dexamethasone (Dexamethasone) 2 Mg Tab 4 MG PO QAM Dextromethorphan-Guaifenesin (Robitussin-Dm Syrup) 1 Syp Syp 5 ML PO QID PRN for Cough Diphenoxylate W/ Atropine (Lomotil) 1 Tab Tab 2.5 MG PO Q6H PRN for Diarrhea, TAB Docusate Sodium (Colace) 100 Mg Cap 100 MG PO BID, CAP Insulin Aspart (Novolog Flexpen) 100 Units/Ml Inj UNITS SC UD PRN for SLIDING SCALE COVERAGE DIRECTED BY SLIDING SKIN BEFORE MEALS AND AT BEDTIME: 60 - 130 0 UNITS 131 - 180 2 UNITS 181 - 240 4 UNITS 241 - 300 6 UNITS 301 - 350 8 UNITS 351 - 400 10 UNITS > 400 12 UNITS AND CALL Insulin Glargine (Lantus Solostar) 100 Unit/Ml Inj 2 UNITS SC DAILY, PEN Levothyroxine Sodium (Synthroid) 100 Mcg Tab 100 MCG PO DAILY, TAB Lorazepam (Ativan) 0.5 Mg Tab 0.5 MG PO Q8 PRN for Anxiety, TAB Magnesium Hydroxide (Milk of Magnesia) 30 Ml Susp 30 ML PO UD PRN for Constipation NEEDED EVERY 24 HOURS FOR NO BOWEL MOVEMENT PAST 1 DAY Metoprolol Succinate (Toprol Xl) 25 Mg Tabcr 0.5 TAB PO BID for 30 Days, #30 TAB 5 Refills Ondasetron Odt (Zofran Odt) 4 Mg Tab 4 MG SL Q6H PRN for Nausea or Vomiting, TAB Oseltamivir Phosphate (Tamiflu) 75 Mg Cap 75 MG PO DAILY, #10 CAP Oxycodone Ir (Roxicodone Ir) 5 Mg Tab 5 MG PO Q4H PRN for Moderate to Severe Pain, TAB NEEDED FOR PAIN RATED 4-10 ON A SCALE OF "0-10" Pantoprazole (Protonix) 40 Mg Tab 40 MG PO DAILY, TAB Polyethylene Glycol 3350 (Bulk (Polyethylene Glycol 3350) 1 Pow Pow 17 GM PO DAILY, GM TAKE THIS MEDICATION ONCE DAILY WITH LUNCH Sennosides-Docusate Sodium (Senna/Docusate Sodium) 1 Tab Tab 1 TAB PO DAILY TAKE THIS MEDICATION ONCE DAILY WITH LUNCH Ursodiol (Ursodiol) 300 Mg Cap 300 MG PO TID Admission Information HPI (per Admitting provider): This is a 61 year old female with PMH of AML s/p chemo in May and June with a complicated hospital course in [place] for around 90 days, which was complicated by febrile neutropenia with a VRE bacteremia on daptomycin until , hx. of Takotsubo cardiomyopathy, steroid induced hyperglycemia, autoimmune hepatitis, hypothyroidism, HSV-1 - she has been in and out of the hospital this year due to anemia and thrombocytopenia. Last admitted here on 08/17/16 due to thrombocytopenia - at that time was given two bags of platelets and her platelets improved. She has been having blood work drawn since then and had blood work drawn today showing Hgb of 6.7 and platelets of less than 10, so she presented here for transfusions. Her only symptom today was some dyspnea with exertion; she uses a walker at baseline. Physical Exam (per Admitting): General Appearance: no apparent distress, + thin Head: normocephalic, atraumatic Eyes: normal inspection ENT: hearing grossly normal Neck: supple Respiratory/Chest: chest non-tender, lungs clear, normal breath sounds, no respiratory distress, no accessory muscle use Cardiovascular: regular rate, rhythm, no edema, no murmur Abdomen/GI: normal bowel sounds, non tender, soft, no organomegaly Extremities/Musculoskelatal: normal inspection, no calf tenderness, normal capillary refill, no pedal edema, normal range of motion Neurologic/Psych: burlap roll coverer II-XII nml as tested, no motor/sensory deficits, alert , normal mood/affect, oriented x 3 Skin: + pertinent finding (bruising throughout body) Lymphatic: no adenopathy Hospital Course Patient is clinically stable and will be discharged home later today. She was able to ambulate in the hallway without any new symptoms. THROMBOCYTOPENIA patient presented with platelet count of 6; admitted 08/17 with platelet count of 2-->given two bags of platelets with good improvement -admitted to telemetry -transfused 2 units irradiated platelets; plt count 28 today -goal platelets as per assistant property manager at [place] is > 10 -cont Decadron SYMPTOMATIC ANEMIA -patient presented with exertional shortness of breath, Hgb of 5.7 -transfused 2 units PRBCs -HgB 9.7 today and exertional SOB has resolved HYPOKALEMIA/HYPOMAGNESIA: IMPROVED -K+ 2.7; Mag 1.5 -improvement after replenished AML -in remission, last chemotherapy in June -follows with hematology in [place] (Dr. Nelson Vigil) -cont abx, antivirals, monitor blood counts VRE BACTEREMIA -patient with VRE infection at [place] -has been on Daptomycin since then -cont Daptomycin until 08/29, which is her last dose -echo was performed in July, with no vegetations on valves HYPOTHYROIDISM -cont Synthroid HSV 1 -cont Acyclovir DVT PROPHYLAXIS -SCDs CODE STATUS FULL CODE as per discussion with patient Total time spent on discharge = 38 minutes. This includes examination of the patient, discharge planning, medication reconciliation, and communication with other providers. Discharge Instructions Activity Recommendations Activity Limitations: resume your previous activity Exercise/Sports Limitations: as tolerated Shower/Bathe: no limitations Driving or Machine Use: resume 1 day after discharge . Current Hospital Diet Patient's current hospital diet: Regular Diet Discharge Diet Recommended Diet: AHA Diet (Heart Healthy) Fluid Restriction: None Additional Copies To Jaylin Croral D.O. Gray, Karen Pitts MD
[2016-08-29] MEDS ORDERED: DAPT500I IV (11:02)
[2016-08-29] MEDS ORDERED: URSO300C8 PO (11:02)
[2016-08-29] MEDS ORDERED: LEVO100T PO (11:02)
[2016-08-29] MEDS ORDERED: ZVR400 PO (11:02)
[2016-08-29] MEDS ORDERED: INSDGIPEN SC (11:02)
[2016-08-29] MEDS ORDERED: RBTDMUDL5 PO (11:07)
[2016-08-29] MEDS ORDERED: LORA-741 PO (11:07)
[2016-08-29] MEDS ORDERED: OXYC1TAB3 PO (11:07)
[2016-08-29] MEDS ORDERED: DPH/ PO (11:07)
[2016-08-29] MEDS ORDERED: ACET-1311 PO (11:07)
[2016-08-29] MEDS ORDERED: METO25TA3 PO (13:01)
[2016-08-29] MEDS ORDERED: PRLSR20 PO (18:01)
[2016-08-29] MEDS ORDERED: ONDA4TAB10 SL (18:22)
--- NOTE | 2016-08-31 14:18 | EDITING REQUIRED CODING QUERY ---
ANEMIA Please refer it to the Physician who admitted the patient. Thanks Dear Dr. Houston. To promote full compliance with coding requirements relating to patient care, physician participation is requested in all cases of remote inpatient coder uncertainty. Please assist us with the question(s) below: In responding to this query, please exercise your independent professional judgement. The fact that a question is asked does not imply that any particular answer is desired or expected. We appreciate your clarification on this issue. Coding Question(s): ANEMIA Please specify the known or suspected type by placing an "X" within the parenthesis (x). If other, please document type. Examples are: ( ) Anemia of chronic disease ( ) Aplastic anemia ( ) Anemia due to renal disease ( ) Anemia in neoplastic disease ( ) Iron deficient anemia ( ) Anemia, unspecified or other ( ) Other: (please specify) ( ) Unable to determine SYMPTOMATIC ANEMIA -patient presented with exertional shortness of breath, Hgb of 5.7 -transfused 2 units PRBCs -HgB 9.7 today and exertional SOB has resolved Thank you for your time. Pat Joseph, [employer]
[2016-09-04] MEDS ORDERED: FLUC200T PO (13:07)
--- NOTE | 2016-10-01 14:50 | EDITING REQUIRED CODING QUERY ---
CODING QUERY Dear Dr. Mejia, To promote full compliance with coding requirements relating to patient care, provider participation is requested in all cases of medical coder uncertainty. Please assist us with the question(s) below: In responding to this query, please exercise your independent professional judgement. The fact that a question is asked does not imply that any particular answer is desired or expected. We appreciate your clarification on this issue. Coding Question(s): Please clarify if the patient had the following by placing an (X) in parentheses: She was admitted due to the severe anemia and thrombocytopenia She was not neutropenic though her total WBC was low #1 ( ) Pancytopenia ( x ) Thrombocytopenia (x ) Anemia #2 The above condition was caused by: ( x ) AML - was felt to have persistent/residual disease on bone marrow in 07/2016 ( x ) Chemotherapy - Name of Drug - She had re-induction with [facility] in 06/2016 ( ) Other: Please Explain Physician's Response(s): Thank you for your time. Pat Joseph, [facility] Principal Diagnosis: "_that condition established after study, to be chiefly responsible for occasioning the admission of the patient to the hospital for care." Co-Existing Principal Diagnosis: "_when two or more diagnoses equally meet the criteria for principal diagnosis as determined by the circumstances of admission, diagnostic work up, and/or therapy provided, and the Alphabetic Index, Tabular List, or another coding guideline does not provide sequencing direction, any one of the diagnoses may be sequenced first." "When the physician has documented what appears to be a current diagnosis in the body of the record, but has not included the diagnosis in the final diagnostic statement, the physician should be asked whether the diagnosis should be added." (Source Coding Clinic 2 QTR90. p3-4)
[2016-10-29] MEDS ORDERED: LEVO1TAB33 PO (13:12)
== END 2016-08-28 13:43 | disposition home or self-care (01) | DRG 809 ==
LOC: ENRESERVTM → ENRESERVDT → C.EDB 15:10 → C.2T 17:05 → UNDOADMIN 18:57
PROVIDERS: ADMIT Family Medicine; ATTEND Emergency Medicine
DX: D61.818 Other pancytopenia (principal); C92.00 Acute myeloblastic leukemia, not having achieved remission; R78.81 Bacteremia; I51.81 Takotsubo syndrome; E87.6 Hypokalemia; E03.9 Hypothyroidism, unspecified; E83.42 Hypomagnesemia; Z16.21 Resistance to vancomycin; B00.9 Herpesviral infection, unspecified; Z92.21 Personal history of antineoplastic chemotherapy; K75.4 Autoimmune hepatitis; Z79.2 Long term (current) use of antibiotics; Z79.4 Long term (current) use of insulin; Z79.891 Long term (current) use of opiate analgesic; Z79.52 Long term (current) use of systemic steroids; Z79.899 Other long term (current) drug therapy

== ENCOUNTER 2016-08-28 17:17 | Emergency (ER) | payer OTHER ==
[~2016-08-28] VITALS: Ht 167.6 cm; Wt 60.0 kg
[2016-08-28 17:28] VITALS: BP 99/73; TEMP 37; Ht 167.6 cm; Wt 60.0 kg
[2016-08-28] MEDS ORDERED: XYLOCAINE 1%/SOD BICARB 20 ML VIAL INFIL ONE (17:45)
[2016-08-28] MEDS ORDERED: ALTEPLASE, RECOMBINANT 1 MG/ML 2 ML VIAL IV ONE (17:45)
--- NOTE | 2016-08-28 18:12 | EMERGENCY ROOM VISIT NOTE ---
History First contact with patient: 17:37 Chief Complaint: PICC LINE CLOTTED Stated Complaint: CLOGGED PICC LINE History of Present Illness The patient is a 61 year old female who presents to the Emergency Room with complaints of her PICC line being clotted. The patient states that she was just discharged from the hospital at 1:30 PM today. Her tried to access the PICC line in her left arm today to give her antibiotics and when he tried to flush it he got resistance. He then tried a different syringe which again he could not flush. They then called home health who tried without any success. They were told to come to the emergency room. The patient states that the last time the line was accessed was at 4 AM when she received platelets and magnesium. Review of Systems 6 system review was performed and was negative unless stated otherwise in history of present illness. Past Medical/Surgical History Medical Problems: (1) AML (acute myeloblastic leukemia) (2) AML (acute myelogenous leukemia) (3) Hyperbilirubinemia (4) Hypothyroidism (5) Pancytopenia (6) Pneumonia (7) Takotsubo cardiomyopathy (8) Transaminitis Surgical Problems: (1) H/O colonoscopy (2) S/P anal fissurectomy Family History FH: alpha 1 antitrypsin deficiency SISTER FH: cancer FATHER MOTHER FH: diabetes mellitus FH: gallbladder disease FH: heart disease FATHER FH: hypertension FH: lung disease MOTHER Hemochromatosis SISTER Stroke MOTHER Social History Smoking Status: Never Smoker Alcohol Use: occasionally Drug Use: none Marital Status: Housing Status: lives with family Occupation Status: employed Current/Historical Medications Scheduled Acyclovir (Acyclovir), 400 MG PO BID Daptomycin (Daptomycin), 750 MG IV QD@1200 Dexamethasone (Dexamethasone), 4 MG PO QAM Insulin Glargine (Lantus Solostar), 2 UNITS SC DAILY Levothyroxine Sodium (Synthroid), 100 MCG PO DAILY Metoprolol Succinate (Toprol Xl), 12.5 MG PO BID Omeprazole (Prilosec), 20 MG PO BID Pantoprazole (Protonix), 40 MG PO DAILY Ursodiol (Ursodiol), 300 MG PO TID Scheduled PRN Acetaminophen (Tylenol), 650 MG PO Q4H PRN for Mild Pain Bisacodyl (Dulcolax), 1 SUPP OK UD PRN for Constipation Dextromethorphan-Guaifenesin (Robitussin-Dm Syrup), 5 ML PO QID PRN for Cough Diphenoxylate W/ Atropine (Lomotil), 2.5 MG PO Q6H PRN for Diarrhea Lorazepam (Ativan), 0.5 MG PO Q8 PRN for Anxiety Magnesium Hydroxide (Milk of Magnesia), 30 ML PO UD PRN for Constipation Ondasetron Odt (Zofran Odt), 4 MG SL Q6H PRN for Nausea or Vomiting Oxycodone Ir (Roxicodone Ir), 5 MG PO Q4H PRN for Moderate to Severe Pain Allergies Coded Allergies: Penicillins (Verified Allergy, Unknown, ., 08/28/16) Sulfa Antibiotics (Verified Allergy, Unknown, ., 08/28/16) Physical Exam Vital Signs Date Time Temp Pulse Resp B/P Pulse Ox O2 Delivery O2 Flow Rate FiO2 08/28/16 17:28 37.0 81 18 99/73 99 Room Air Physical Exam GENERAL: 61-year-old white female appears in no acute distress. She is very thin. MENTAL Status: Alert and oriented 3. NECK: Supple, no lymphadenopathy noted. No carotid bruits noted. LUNGS: Clear auscultation without wheezes rales or rhonchi. CARDIAC: Regular rate and rhythm without murmur.. Pulses is full and equal throughout. LEFT ARM: There is a PICC line in place. Multiple areas of ecchymosis noted on the left arm. No erythema or edema noted. Medical Decision & Procedures ED Course The patient was evaluated. IV team was called. IV team was able to open the line with a flash and then heparinized the line. The patient was discharged home in stable condition. Medical Decision Since the patient already knew that the PICC line was clogged the IV team was called. Impression Primary Impression: Occluded PICC line Departure Information Referrals Jaylin Corral D.O. (PCP) Patient Instructions My [facility] Additional Instructions Continue accessing the line as previously directed. Problem Qualifiers Primary Impression: Occluded PICC line Encounter type: initial encounter Qualified Codes: T82.898A - Other specified complication of vascular prosthetic devices, implants and grafts, initial encounter
[2016-08-28 18:17] VITALS: PULSE 90; O2SAT 95
[2016-08-29] MEDS ORDERED: ZVR400 PO (11:02)
[2016-08-29] MEDS ORDERED: INSDGIPEN SC (11:02)
[2016-08-29] MEDS ORDERED: DAPT500I IV (11:02)
[2016-08-29] MEDS ORDERED: LEVO100T PO (11:02)
[2016-08-29] MEDS ORDERED: URSO300C8 PO (11:02)
[2016-08-29] MEDS ORDERED: RBTDMUDL5 PO (11:07)
[2016-08-29] MEDS ORDERED: LORA-741 PO (11:07)
[2016-08-29] MEDS ORDERED: ACET-1311 PO (11:07)
[2016-08-29] MEDS ORDERED: OXYC1TAB3 PO (11:07)
[2016-08-29] MEDS ORDERED: DPH/ PO (11:07)
[2016-08-29] MEDS ORDERED: METO25TA3 PO (13:01)
[2016-08-29] MEDS ORDERED: PRLSR20 PO (18:01)
[2016-08-29] MEDS ORDERED: ONDA4TAB10 SL (18:22)
[2016-09-04] MEDS ORDERED: FLUC200T PO (13:07)
[2016-10-29] MEDS ORDERED: LEVO1TAB33 PO (13:12)
== END 2016-08-28 18:18 | disposition home or self-care (01) ==
LOC: C.EDB 17:18 → C.EDD 18:18
DX: T82.898A Other specified complication of vascular prosthetic devices, implants and grafts, initial encounter (principal); X58.XXXA Exposure to other specified factors, initial encounter; E03.9 Hypothyroidism, unspecified; Z85.6 Personal history of leukemia; Z98.890 Other specified postprocedural states; Z79.899 Other long term (current) drug therapy; Z88.0 Allergy status to penicillin; Z88.2 Allergy status to sulfonamides; Z88.3 Allergy status to other anti-infective agents; Z83.79 Family history of other diseases of the digestive system; Z82.49 Family history of ischemic heart disease and other diseases of the circulatory system; Z82.0 Family history of epilepsy and other diseases of the nervous system

== ENCOUNTER 2016-08-29 15:16 | Emergency (ER) | payer OTHER ==
[~2016-08-29] VITALS: Ht 168.9 cm; Wt 60.0 kg
[~2016-08-29 15:16] MED LIST changes: +ACET-1311 PO; +DAPT500I IV; -DOCU-94 PO; +DPH/ PO; +INSDGIPEN SC; +LEVO100T PO; +LORA-741 PO; +METO25TA3 PO; -NF406 PO; -NVLGI/PEN SC; +OXYC1TAB3 PO; -POLY1POW2 PO; +RBTDMUDL5 PO; -SENN1TAB66 PO; +URSO300C8 PO; +ZVR400 PO
[2016-08-29 15:23] VITALS: Ht 168.9 cm; Wt 60.0 kg
[2016-08-29 16:35] VITALS: BP 107/74; PULSE 88; TEMP 37.5; O2SAT 96
--- NOTE | 2016-08-29 17:42 | EMERGENCY ROOM VISIT NOTE ---
ED Visit Note First contact with patient: 15:39 Chief Complaint: Block PICC tube. History of Present Illness: Ms. Soto is a 61-year-old white female who ambulates into the ED accompanied by her complaining of a blocked PICC tube. Patient reports she was discharged from the hospital yesterday at approximately 1:30 PM. Her attempted to access her PICC line today to give her antibiotics and when he attempted to flushing that resistance. He reports he made multiple attempts without success. He contacted the local [facility] through recommended that she come to the ED for further evaluation and care. She was here last evening for similar symptoms and why was reopened last night. Patient has no other complaints at this time. Review of Systems: As noted above in history of present illness. At least body systems were reviewed and found to be negative as noted above. 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) (3) Hyperbilirubinemia (4) Hypothyroidism (5) Pancytopenia (6) Pneumonia (7) Takotsubo cardiomyopathy (8) Transaminitis Surgical Problems: (1) H/O colonoscopy (2) S/P anal fissurectomy Current Medications: Medications Dose Route/Sig Max Daily Dose Days Date Category Dose Instructions Prilosec (Omeprazole) 20 Mg Capcr 20 Mg PO BID 08/28/16 Reported Toprol Xl (Metoprolol Succinate) 25 Mg Tabcr 12.5 Mg PO BID 30 08/22/16 Reported Zofran Odt (Ondansetron HCl) 4 Mg Tab 4 Mg SL Q6H PRN 08/17/16 Reported Ativan (Lorazepam) 0.5 Mg Tab 0.5 Mg PO Q8 PRN 08/10/16 Reported Roxicodone Ir (Oxycodone HCl) 5 Mg Tab 5 Mg PO Q4H PRN 08/10/16 Reported NEEDED FOR PAIN RATED 4-10 ON A SCALE OF "0-10" Robitussin-Dm Syrup (Dextromethorphan-Guaifenesin) 1 Syp Syp 5 Ml PO QID PRN 08/10/16 Reported Lomotil (Diphenoxylate W/ Atropine) 1 Tab Tab 2.5 Mg PO Q6H PRN 08/10/16 Reported Tylenol (Acetaminophen) 325 Mg Tab 650 Mg PO Q4H PRN 08/10/16 Reported NEEDED FOR MILD PAIN RATED 1-3 ON A SCALE OF "0-10". MAXIMUM 3 GM APAP/24 HOURS. Ursodiol 300 Mg Cap 300 Mg PO TID 08/10/16 Reported Synthroid (Levothyroxine Sodium) 100 Mcg Tab 100 Mcg PO DAILY 08/10/16 Reported Lantus Solostar (Insulin Glargine) 100 Unit/Ml Inj 2 Units SC DAILY 08/10/16 Reported Dexamethasone 2 Mg Tab 2 Mg PO QAM 08/10/16 Reported Daptomycin 500 Mg Inj 750 Mg IV QD@1200 08/10/16 Reported TIME CRITICAL, GIVE WITH 30 MINUTES OF MAR TIME. CONTINUE UNTIL 08/29/16. Acyclovir 400 Mg Tab 400 Mg PO BID 08/10/16 Reported TAKE THIS MEDICATION WITH BREAKFAST AND EVENING MEAL Allergies to Medications: Penicillin, sulfa. Social History: Patient is currently employed; she feels safe in her home environment; she denies tobacco use. Physical Examination: Vital Signs: GENERAL: 61-year-old female in mild to moderate distress due to pain, nontoxic- appearing, afebrile and hemodynamically stable. NEUROLOGICAL: Awake, alert and oriented to person, place and time. Answering questions appropriately and following commands. SKIN: Warm, dry and pink. Multiple large purpura-liking lesions throughout the body; when questioned patient reports this has not worsened. HEENT: Atraumatic and normocephalic. PERRLA. Sclera white and conjunctiva pink. BACK: No tenderness over the bony spine. No CVA tenderness. THORAX: Lungs sounds are clear to auscultation and equal bilaterally with symmetrical chest wall. Her HEART: Regular rate and rhythm. No gallops, rubs or murmurs are appreciated. ABDOMEN: Flat, soft and nontender. Positive bowel sounds in all quadrants. No guarding, rigidity or organomegaly. EXTREMITIES: Moves all extremities well on command and with purpose. All distal neurovascular statuses are intact and equal bilaterally. ED Course: Patient is assessed as noted above. IV team was consulted to evaluate the PICC line; IV team was able to flush the line without difficulty. Patient and were educated about tonight's findings and instructed on her treatment plan; they verbalized understanding and agreement with this plan. Clinical Impression: PICC line occlusion. Disposition: Patient discharged home in stable condition accompanied by her . Plan: Patient was encouraged to continue her current medications and to use her PICC line as instructed. Patient was encouraged to follow-up with her PCP as needed. Patient was encouraged return the ED for any reocclusion of her PICC line or any new/concerning symptoms.
[2016-08-29] MEDS ORDERED: PRLSR20 PO (18:01)
[2016-08-29] MEDS ORDERED: ONDA4TAB10 SL (18:22)
[2016-09-04] MEDS ORDERED: FLUC200T PO (13:07)
[2016-10-29] MEDS ORDERED: LEVO1TAB33 PO (13:12)
== END 2016-08-29 16:35 | disposition home or self-care (01) ==
LOC: C.EDB 15:18 → C.EDD 16:35
DX: T82.594A Other mechanical complication of infusion catheter, initial encounter (principal); Y84.9 Medical procedure, unspecified as the cause of abnormal reaction of the patient, or of later complication, without mention of misadventure at the time of the procedure; Z85.6 Personal history of leukemia; E80.6 Other disorders of bilirubin metabolism; E03.9 Hypothyroidism, unspecified; D61.818 Other pancytopenia; I51.81 Takotsubo syndrome; Z79.2 Long term (current) use of antibiotics; Z79.899 Other long term (current) drug therapy

== ENCOUNTER 2016-10-01 08:25 | Emergency (ER) | payer OTHER ==
[~2016-10-01] VITALS: Ht 167.6 cm; Wt 62.3 kg
[~2016-10-01 08:25] MED LIST changes: -BISA10SU38 PR; -DAPT500I IV; +FLUC200T PO; -MOMLX PO; +ONDA4TAB10 SL; -PANT40TA PO; +PRLSR20 PO
[2016-10-01 08:31] VITALS: TEMP 36.5; Ht 167.6 cm; Wt 62.3 kg
[2016-10-01] MEDS ORDERED: LEVO1TAB33 PO (09:17)
[2016-10-01] MEDS ORDERED: POTA10CA28 PO (09:17)
[2016-10-01] MEDS ORDERED: MAGN400T6 PO (09:17)
[2016-10-01] MEDS ORDERED: BUDE3CAP14 PO (09:17)
--- NOTE | 2016-10-01 09:17 | EMERGENCY ROOM VISIT NOTE ---
History Report prepared by Fatoumata: Renée Galicia Under the Supervision of: Dr. Chela Murry M.D. First contact with patient: 08:41 Chief Complaint: PICC LINE CLOTTED Stated Complaint: PICC LINE IS CLOGGED History of Present Illness The patient is a 61 year old female who presents to the Emergency Room with complaints of a clotted PICC line this morning. The patient has AML and is being treated at [facility]. She has a PICC line in her left upper arm. This morning, [facility] visited the patient's home to draw blood work but the line seemed to be obstructed. She states that it was difficult to flush and the home health nurse was unable to draw blood back. The patient had similar symptoms two days in a row last month and was seen in the ED. The first time she was seen , the PICC team adjusted the line by pulling it back and forth. The second time , they changed the clave on the PICC line. [facility] tried both methods this morning without success. She notes that she has been flushing the line twice a day for the past several days with ease. The patient's platelet counts have been low recently and she is unable to have heparin in her PICC line. 3 days ago , her platelet count was 16. She has platelets infused a week ago and 3 days ago. Source of History: patient Onset: this morning Position: other (PICC line - left arm) Quality: other (clogged) Timing: constant Review of Systems See HPI for pertinent positives & negatives. A total of 6 systems reviewed and were otherwise negative. Past Medical & Surgical Medical Problems: (1) AML (acute myeloblastic leukemia) (2) AML (acute myelogenous leukemia) (3) Hyperbilirubinemia (4) Hypothyroidism (5) Pancytopenia (6) Pneumonia (7) Takotsubo cardiomyopathy (8) Transaminitis Surgical Problems: (1) H/O colonoscopy (2) S/P anal fissurectomy Family History FH: alpha 1 antitrypsin deficiency SISTER FH: cancer FATHER MOTHER FH: diabetes mellitus FH: gallbladder disease FH: heart disease FATHER FH: hypertension FH: lung disease MOTHER Hemochromatosis SISTER Stroke MOTHER Social History Smoking Status: Never Smoker Alcohol Use: occasionally Drug Use: none Marital Status: Housing Status: lives with family Occupation Status: employed Current/Historical Medications Scheduled Acyclovir (Acyclovir), 400 MG PO BID Budesonide (Entocort Ec), 3 MG PO TID Dexamethasone (Dexamethasone), 2 MG PO QAM Fluconazole (Diflucan), 100 TAB PO DAILY Insulin Glargine (Lantus Solostar), 2 UNITS SC DAILY Levofloxacin (Levaquin), 500 MG PO DAILY Levothyroxine Sodium (Synthroid), 100 MCG PO DAILY Magnesium Oxide (Mag-Ox), 400 MG PO BID Metoprolol Succinate (Toprol Xl), 12.5 MG PO DAILY Omeprazole (Prilosec), 20 MG PO BID Potassium Chloride (Micro-K Ext Rel), 10 MEQ PO DAILY Ursodiol (Ursodiol), 300 MG PO TID Scheduled PRN Acetaminophen (Tylenol), 650 MG PO Q4H PRN for Mild Pain Dextromethorphan-Guaifenesin (Robitussin-Dm Syrup), 5 ML PO QID PRN for Cough Diphenoxylate W/ Atropine (Lomotil), 2.5 MG PO Q6H PRN for Diarrhea Lorazepam (Ativan), 0.5 MG PO Q8 PRN for Anxiety Ondasetron Odt (Zofran Odt), 8 MG SL Q6H PRN for Nausea or Vomiting Oxycodone Ir (Roxicodone Ir), 5 MG PO Q4H PRN for Moderate to Severe Pain Allergies Coded Allergies: Penicillins (Verified Allergy, Unknown, ., 10/01/16) Sulfa Antibiotics (Verified Allergy, Unknown, ., 10/01/16) Physical Exam Vital Signs Date Time Temp Pulse Resp B/P Pulse Ox O2 Delivery O2 Flow Rate FiO2 10/01/16 09:53 82 16 117/71 97 10/01/16 08:31 36.5 93 18 121/80 100 Room Air Physical Exam Vital signs reviewed. General: Chronically ill-appearing 61 year old female, in no significant distress. Musculoskeletal: Atraumatic, no peripheral edema. PICC line in the left upper extremity with a bandage in place, no appreciable swelling or tenderness. Neurologic: Patient awake alert and oriented x 3 Skin: Warm, dry. Non-blanching petechial-like lesions to the face, chest, and extremities. Medical Decision & Procedures ED Course 0908: Past medical records reviewed. The patient was evaluated in room A11. A complete history and physical examination was performed. 0938: Upon reevaluation, the patient's PICC line was working well. I discussed findings with the patient. She verbalized agreement of the treatment plan. The patient was discharged home. Medical Decision This patient was evaluated and appeared to be in no significant distress. IV team was consulted and they were able to unclog the PICC line. The patient was discharged to continue her therapies as previously directed. She will return to the ER for worsening of symptoms or any medical concerns. Impression Primary Impression: Occluded PICC line Scribe Attestation The scribe's documentation has been prepared under my direction and personally reviewed by me in its entirety. I confirm that the note above accurately reflects all work, treatment, procedures, and medical decision making performed by me. Departure Information Dispostion Home / Self-Care Referrals Jaylin Corral D.O. (PCP) Forms HOME CARE DOCUMENTATION FORM, IMPORTANT VISIT INFORMATION, WORK / SCHOOL INSTRUCTIONS Patient Instructions My [facility] Additional Instructions Diagnosis: PICC line occlusion Follow-up with your therapies as scheduled. Return to the ER for worsening of symptoms or any medical concerns. Problem Qualifiers Primary Impression: Occluded PICC line Encounter type: subsequent encounter Qualified Codes: T82.898D - Other specified complication of vascular prosthetic devices, implants and grafts, subsequent encounter
[2016-10-01 09:53] VITALS: BP 117/71; PULSE 82; O2SAT 97
[2016-10-29] MEDS ORDERED: LEVO1TAB33 PO (13:12)
== END 2016-10-01 09:54 | disposition home or self-care (01) ==
LOC: C.EDB 08:26 → C.EDA 09:54
DX: T85.698A Other mechanical complication of other specified internal prosthetic devices, implants and grafts, initial encounter (principal); Y83.8 Other surgical procedures as the cause of abnormal reaction of the patient, or of later complication, without mention of misadventure at the time of the procedure; C92.00 Acute myeloblastic leukemia, not having achieved remission; E03.9 Hypothyroidism, unspecified; Z88.0 Allergy status to penicillin; Z88.2 Allergy status to sulfonamides; Z83.3 Family history of diabetes mellitus; Z82.49 Family history of ischemic heart disease and other diseases of the circulatory system; Z83.6 Family history of other diseases of the respiratory system; Z82.3 Family history of stroke

== ENCOUNTER 2017-03-31 08:20 | Inpatient (IN) | payer OTHER ==
[2017-03-31] VITALS (57 sets, daily range): BP systolic 56–128; BP diastolic 1–73; PULSE 85–118; TEMP 34.5–37.1; O2SAT 71–100; Ht 167.6 cm; Wt 80.6 kg
[~2017-03-31] VITALS: Ht 167.6 cm; Wt 80.6 kg
[~2017-03-31 08:20] MED LIST changes: +BUDE3CAP14 PO; +LEVO1TAB33 PO; +MAGN400T6 PO; +POTA10CA28 PO
[2017-03-31] MEDS ORDERED: NALOXONE HCL 0.4 MG/1 ML VIAL/CARP ONE (08:22)
[2017-03-31] MEDS ORDERED: SODIUM CHLORIDE 0.9% 1000ML 1,000 ML IV STA (08:24)
[2017-03-31] MEDS ORDERED: SODIUM CHLORIDE 0.9% 250ML 250 ML IV STA (08:24)
--- NOTE | 2017-03-31 08:44 | DIAGNOSTIC IMAGING REPORT ---
HEAD WITHOUT CONTRAST (CT) CLINICAL HISTORY: 62 years-old Female with acute altered mental status with history of leukemia and recent stem cell transplant. TECHNIQUE: Multiple axial CT images of the head were obtained without contrast. A dose lowering technique was utilized adhering to the principles of ALARA. CT DOSE: 638.56 mGycm COMPARISON: CT head 05/14/2016. FINDINGS: The exam is mildly limited secondary to motion artifact. No acute intracranial hemorrhage, midline shift, mass, large territorial ischemia or abnormal extra-axial collection. 6 mm focal area of low attenuation involving the right lentiform nucleus is unchanged suggesting a remote lacunar infarction or prominent perivascular space. Mild degree of ill-defined areas of low-attenuation within the periventricular white matter of the cerebral and measures bilaterally suggest chronic microvascular ischemic changes. The calvarium is intact. There is a small right mastoid effusion with trace fluid within the right middle ear cavity. Mild ethmoid and sphenoid sinus disease is present. Soft tissues are unremarkable. Orbits are symmetric. IMPRESSION: 1. No acute intracranial abnormality. Negative for hemorrhage or territorial ischemia. 2. Mild background chronic microvascular ischemic changes. 3. Small mastoid effusion with mild paranasal sinus disease. The above report was generated using voice recognition software. It may contain grammatical, syntax or spelling errors. Electronically signed by: Sadi Magaña M.D. 03/31/2017 8:43 AM Dictated Date/Time: 03/31/2017 8:40 AM
[2017-03-31] MEDS ORDERED: RAPID SEQUENCE INDUCTION BAG ONE (08:47)
[2017-03-31] MEDS ORDERED: MAGNESIUM IV (08:51)
--- NOTE | 2017-03-31 08:54 | EMERGENCY ROOM VISIT NOTE ---
History Report prepared by Fatoumata: Anthony Brink Under the Supervision of: Dr. Chela Murry M.D. First contact with patient: 08:20 Stated Complaint: ALOC History of Present Illness The patient is a 62 year old female who presents to the Emergency Room with complaints of constant altered loss of consciousness beginning one hour ago. 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 He reports that she has been doing well. The notes that she was negative for meningitis and has not had any LPs. He states that at 0500, he heard the patient get up this morning to let the dogs out. The reports that the patient has trouble sleeping, so when he woke up at 0715, he noticed the TV was off. He notes that he thought she was asleep, so he left the house to run an errand. The states that when he returned after 10 minutes, he could not find the patient. He reports that the patient was found on the floor next to the bed. The notes the patient was lethargic and unresponsive but would respond to loud stimuli. He states that she did not know him, and she did not respond when asked if she hit her head. The reports that she did vomit and defecate in her pants. He notes that last night they went to dinner for the first time in a while. The states she had half a glass of wine, and then watched the pirates. The patient denies a history of seizures, falling, abdominal pain, and feeling sick. Source of History: patient Onset: 1 hour ago Position: other (global) Quality: other (ALOC) Timing: constant Associated Symptoms: + vomiting, No abdominal pain Note: Denies a history of seizures, falling, and feeling sick. Review of Systems ROS limited secondary to the patient's altered loss of consciousness. Past Medical & Surgical Medical Problems: (1) AML (acute myeloblastic leukemia) (2) AML (acute myelogenous leukemia) (3) Hyperbilirubinemia (4) Hypotension (5) Hypothyroidism (6) Pancytopenia (7) Pneumonia (8) Takotsubo cardiomyopathy (9) Transaminitis (10) Unresponsiveness Surgical Problems: (1) H/O colonoscopy (2) S/P anal fissurectomy Family History FH: alpha 1 antitrypsin deficiency SISTER FH: cancer FATHER MOTHER FH: diabetes mellitus FH: gallbladder disease FH: heart disease FATHER FH: hypertension FH: lung disease MOTHER Hemochromatosis SISTER Stroke MOTHER Social History Smoking Status: Never Smoker Alcohol Use: occasionally Drug Use: none Marital Status: Housing Status: lives with family Occupation Status: employed Current/Historical Medications Scheduled Acyclovir (Acyclovir), 400 MG PO BID Budesonide (Entocort Ec), 3 MG PO TID Dexamethasone (Dexamethasone), 2 MG PO QAM Fluconazole (Diflucan), 100 TAB PO DAILY Insulin Glargine (Lantus Solostar), 2 UNITS SC DAILY Levofloxacin (Levaquin), 500 MG PO DAILY Levothyroxine Sodium (Synthroid), 100 MCG PO DAILY Magnesium Oxide (Mag-Ox), 400 MG PO BID Metoprolol Succinate (Toprol Xl), 12.5 MG PO DAILY Omeprazole (Prilosec), 20 MG PO BID Potassium Chloride (Micro-K Ext Rel), 10 MEQ PO DAILY Ursodiol (Ursodiol), 300 MG PO TID [Magnesium], 250 MG IV DAILY Scheduled PRN Acetaminophen (Tylenol), 650 MG PO Q4H PRN for Mild Pain Dextromethorphan-Guaifenesin (Robitussin-Dm Syrup), 5 ML PO QID PRN for Cough Diphenoxylate W/ Atropine (Lomotil), 2.5 MG PO Q6H PRN for Diarrhea Lorazepam (Ativan), 0.5 MG PO Q8 PRN for Anxiety Ondasetron Odt (Zofran Odt), 8 MG SL Q6H PRN for Nausea or Vomiting Oxycodone Ir (Roxicodone Ir), 5 MG PO Q4H PRN for Moderate to Severe Pain Allergies Coded Allergies: Penicillins (Verified Allergy, Unknown, ., 03/31/17) Sulfa Antibiotics (Verified Allergy, Unknown, ., 03/31/17) Physical Exam Vital Signs Date Time Temp Pulse Resp B/P (MAP) Pulse Ox O2 Delivery O2 Flow Rate FiO2 03/31/17 09:20 94 20 59/41 94 Mechanical Ventilator 100 03/31/17 09:10 100 03/31/17 09:04 95 52/31 92 Mechanical Ventilator 03/31/17 09:01 103 21 93 Mechanical Ventilator 03/31/17 08:53 109 03/31/17 08:34 36.9 110 22 37/29 91 Non-Rebreather 15.0 Physical Exam Vital signs reviewed. General: Chronically ill appearing, lethargic, minimally responsive, occasionally follows commands, smells of emesis. HEENT: No scleral icterus, PERRLA, neck supple. Atraumatic. Cardiovascular: Regular rate and rhythm, no extra sounds. Pulmonary: Crackles to the bases bilaterally with minimal respiratory effort. Abdomen: Soft, nontender, nondistended, positive bowel sounds. Rectal: Normal mucosa, incontinent of a moderate sized, brown BM Musculoskeletal: Atraumatic, no peripheral edema. Multiple ecchymotic areas on all extremities in different stages of healing. Several acute skin tears, one 10 cm to the left AC. Neurologic: Lethargic, occasionally follows commands, but intermittently. 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 Skin: Warm, dry, no rash Medical Decision & Procedures ER Provider Diagnostic Interpretation: Radiology results as stated below per my review and radiologist interpretation: HEAD WITHOUT CONTRAST (CT) CLINICAL HISTORY: 62 years-old Female with acute altered mental status with history of leukemia and recent stem cell transplant. TECHNIQUE: Multiple axial CT images of the head were obtained without contrast. A dose lowering technique was utilized adhering to the principles of ALARA. CT DOSE: 638.56 mGycm COMPARISON: CT head 05/14/2016. FINDINGS: The exam is mildly limited secondary to motion artifact. No acute intracranial hemorrhage, midline shift, mass, large territorial ischemia or abnormal extra-axial collection. 6 mm focal area of low attenuation involving the right lentiform nucleus is unchanged suggesting a remote lacunar infarction or prominent perivascular space. Mild degree of ill-defined areas of low-attenuation within the periventricular white matter of the cerebral and measures bilaterally suggest chronic microvascular ischemic changes. The calvarium is intact. There is a small right mastoid effusion with trace fluid within the right middle ear cavity. Mild ethmoid and sphenoid sinus disease is present. Soft tissues are unremarkable. Orbits are symmetric. IMPRESSION: 1. No acute intracranial abnormality. Negative for hemorrhage or territorial ischemia. 2. Mild background chronic microvascular ischemic changes. 3. Small mastoid effusion with mild paranasal sinus disease. The above report was generated using voice recognition software. It may contain grammatical, syntax or spelling errors. Electronically signed by: Sadi Magaña M.D. 03/31/2017 8:43 AM Dictated Date/Time: 03/31/2017 8:40 AM CHEST ONE VIEW PORTABLE HISTORY: 62 years-old Female acute altered mental status with history of acute ascitic leukemia. COMPARISON: Portable chest radiograph 08/17/2016 TECHNIQUE: Portable upright AP view of the chest FINDINGS: Dual lumen right internal jugular hemodialysis catheter is seen with distal tip in the right atrium. Cardiac silhouette is moderately enlarged. There is no pneumothorax or large pleural effusion. There is an ill-defined subsegmental left basilar opacity present with blunting of the left costophrenic angle. No overt pulmonary edema. Bones are grossly intact. IMPRESSION: 1. Cardiomegaly without overt pulmonary edema. 2. Subsegmental left basilar opacity with mild blunting of the costophrenic angle may reflect atelectasis or airspace disease with small effusion. The above report was generated using voice recognition software. It may contain grammatical, syntax or spelling errors. Electronically signed by: Sadi Magaña M.D. 03/31/2017 9:07 AM Dictated Date/Time: 03/31/2017 9:04 AM CHEST ONE VIEW PORTABLE HISTORY: 62 years-old Female respiratory failure COMPARISON: Portable chest radiograph 03/31/2017 at 8:47 AM TECHNIQUE: Portable upright AP view of the chest FINDINGS: And endotracheal tube has been placed which terminates 2.6 cm superior to the level of the indira. Dual lumen hemodialysis catheter is present with distal tip terminating within the right atrium. Cardiac silhouette is moderately enlarged. There is no pneumothorax. The right lung is clear. Subsegmental left basilar opacity is again seen with blunting of left costophrenic angle. The bones are grossly intact. IMPRESSION: 1. Endotracheal tube terminates above the level of the indira. 2. Persistent subsegmental left basilar opacity with probable small left pleural effusion. The above report was generated using voice recognition software. It may contain grammatical, syntax or spelling errors. Electronically signed by: Sadi Magaña M.D. 03/31/2017 9:25 AM Dictated Date/Time: 03/31/2017 9:22 AM (CHEST) THORAX WITHOUT CT DOSE: 505.24 mGycm CLINICAL HISTORY: 62 years-old Female with ALL, stem cell, AMS, FALL. Acute syncopal event. TECHNIQUE: Multiaxial CT images of the chest were performed without contrast. A dose lowering technique was utilized adhering to the principles of ALARA. COMPARISON: The chest 05/14/2016. FINDINGS: No dominant thyroid nodule identified. Evaluation for adenopathy is limited without use of IV contrast and also secondary to patient motion. There is nonspecific mildly prominent right hilar lymph node, 1.5 x 0.8 cm. Heart is mildly enlarged with a small pericardial effusion. Coronary arterial calcifications are seen. Hemodialysis catheter is noted terminating within the right atrium. There is an endotracheal tube within the trachea which terminates just proximal to the indira. Multifocal intralobular septal thickening is noted in conjunction with groundglass opacities and congestion of the pulmonary vasculature. Consolidative dependent opacities involves the lower lobes with probable trace effusions. Scattered patchy consolidative opacities are present within perihilar distributions. Subpleural cystic changes involve the lung apices. 4 mm nodular opacity abutting the minor fissure is again seen suggesting perifacial lymph node which is unchanged. The previously noted 2 mm noncalcified pulmonary nodule the right upper lobe is not clearly identified. Central errors are patent. The bifurcation of the lung bases is mildly limited secondary to patient motion. Imaged upper abdominal structures demonstrate no focal abnormality. No acute displaced rib fracture is identified. Minimal cortical irregularity involving the manubrium both anterior and posteriorly on the sagittal imaging is thought to be secondary to motion artifact. Additional artifactual changes are seen along the lateral ribs. IMPRESSION: 1. Limited study secondary to respiratory and patient motion. No acute fracture or pneumothorax identified. 2. Cardiomegaly with mild pulmonary edema and dependent consolidative opacities suggesting atelectasis, pneumonia or aspiration pneumonitis with trace pleural effusions. 3. Small pericardial effusion. 4. Right IJ hemodialysis catheter terminates in the right atrium. Endotracheal tube terminates above the level of the indira. Electronically signed by: Sadi Magaña M.D. 03/31/2017 11:12 AM Dictated Date/Time: 03/31/2017 11:04 AM 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 Acute head injury status post fall. COMPARISON: None. TECHNIQUE: Multiple axial CT images of the cervical spine were obtained without contrast. A dose lowering technique was utilized adhering to the principles of ALARA. FINDINGS: No acute cervical spine fracture or subluxation identified. Multilevel facet arthrosis, facet arthropathy and uncovertebral spurring is noted. Intervertebral disc space narrowing is most pronounced at the C5-C6 and C6-C7 levels. Posterior disc osteophyte complex formation at these levels results in a degree of central canal narrowing. Multilevel neuroforaminal stenosis is present, most pronounced on the left at C4-C5 where there is severe disease. Endotracheal tube is seen within the trachea. Intralobular septal thickening with ground glass opacities involve the lung apices. Debris is seen within the airway. Right sided IJ catheter is only partially imaged. Moderate right mastoid effusion is noted. Sphenoid sinus disease is partially imaged. IMPRESSION: 1. No acute cervical spine fracture or subluxation. 2. Multilevel degenerative changes as above. 3. Interlobular septal thickening with groundglass opacities of the lung apices suggest pulmonary edema. 4. Right mastoid effusion. The above report was generated using voice recognition software. It may contain grammatical, syntax or spelling errors. Electronically signed by: Sadi Magaña M.D. 03/31/2017 11:04 AM Dictated Date/Time: 03/31/2017 11:00 AM ABD/PELVIS NO IV OR ORAL CONT HISTORY: 62 years-old Female ALL, stem cell, AMS, FALL acute syncopal event. COMPARISON: CT abdomen and pelvis 05/14/2016 TECHNIQUE: Multiple axial CT images of the abdomen and pelvis were obtained without contrast. A dose lowering technique was used consistent with the principals of ALARA. FINDINGS: Mild cardiomegaly is noted with trace pericardial effusion. Hemodialysis catheter terminates within the right atrium. Dependent consolidative opacities are present with trace pleural effusions. There is no pneumoperitoneum identified. The liver, spleen, pancreas and adrenal glands are within normal limits. There is suggestion of mild gallbladder wall thickening without cholelithiasis identified. Mild nonspecific left-sided perinephric edema is noted. Ureters are unremarkable. Urinary bladder is collapsed with Rajan catheter in place. Nondependent urinary bladder air is likely from instrumentation. Multiple calcified fibroids are seen throughout the uterus, largest which measures 3.2 cm on the left. The abdominal aorta is normal in both course and caliber. No bulky retroperitoneal adenopathy identified. There are a few scattered periaortic lymph nodes measuring up to 9 x 5 mm which are nonspecific and appear unchanged. There are a few scattered nonspecific air-fluid levels seen within several loops of nondilated small bowel are likely incidental. There is no bowel obstruction. Stool ball seen within the rectal vault. The majority of the colon is collapsed with somewhat a haustral pattern. The appendix appears normal. No focal bowel wall thickening. Soft tissues are unremarkable. Nonspecific sclerosis involving the left ilium adjacent to the SI joint is unchanged, likely benign. Motion artifact mildly limits evaluation of the ribs. No acute fracture is identified. There is mild central depression seen involving the superior endplate of L3 which appears chronic. This however is new from comparison study dated 05/14/2016. Minimal cortical irregularity involving the sternum is likely from motion. IMPRESSION: 1. No acute intra-abdominal or intrapelvic abnormality identified. No evidence of solid organ injury. 2. Mild central depression involving the L3 vertebral body with associated Schmorl's node appears chronic, however is new from 05/14/2016. No associated retropulsion. 3. Suggested mild gallbladder wall thickening without cholelithiasis is a nonspecific finding and be correlated with ultrasound if clinically indicated. 4. Trace pericardial and pleural effusions with bibasilar consolidation. 5. Additional incidental findings as above. The above report was generated using voice recognition software. It may contain grammatical, syntax or spelling errors. Electronically signed by: Sadi Magaña M.D. 03/31/2017 11:22 AM Dictated Date/Time: 03/31/2017 11:13 AM Laboratory Results Test 03/31/17 00:00 03/31/17 08:45 03/31/17 08:47 03/31/17 08:50 Stool Occult Blood POSITIVE (NEGATIVE) Metamyelocytes % 3.5 % Metamyelocytes # 0.37 K/uL (0-0) Polychromasia 1+ Macrocytosis PRESENT Prothrombin Time 10.6 SECONDS (9.0-12.0) Prothromb Time International Ratio 1.0 (0.9-1.1) Activated Partial Thromboplast Time 25.0 SECONDS (21.0-31.0) Partial Thromboplastin Ratio 1.0 Est Creatinine Clear Calc Drug Dose 29.1 ml/min Direct Bilirubin 0.3 mg/dl (0-0.2) Procalcitonin 32.25 ng/ml (0-0.5) Cortisol AM Sample 7.64 mcg/dl (4.30-22.40) Bedside Glucose 214 mg/dl (70-90) Bedside Prothrombin Time INR 0.9 (0.9-1.1) Test 03/31/17 08:51 03/31/17 08:55 03/31/17 08:56 Bedside Chloride 102 mEq/L (101-112) Bedside Total CO2 21 mEq/l (24-31) Bedside Blood Urea Nitrogen 22 mg/dl (7-18) Bedside Creatinine 1.6 mg/dl (0.6-1.3) Bedside Glucose (other) 220 mg/dl (70-99) Bedside Ionized Calcium (Alli) 1.34 mmol/l (1.12-1.32) Bedside Lactic Acid Venous 8.96 mmol/L (0.90-1.70) Bedside Troponin I 0.180 ng/ml (0-0.045) Laboratory results per my review. Medications Administered Medications (Trade) Dose Ordered Sig/Adelaida Route Start Time Stop Time Status Last Admin Dose Admin Naloxone HCl (Narcan Inj) 0.4 mg STK-MED ONCE .ROUTE 03/31/17 08:22 03/31/17 08:23 DC 03/31/17 08:22 0.4 MG Sodium Chloride 1,000 ml @ 125 mls/hr Q8H STAT IV 03/31/17 08:24 03/31/17 10:55 DC 03/31/17 09:35 125 MLS/HR Sodium Chloride 250 ml @ 999 mls/hr Q16M STAT IV 03/31/17 08:24 03/31/17 08:39 DC 03/31/17 12:55 999 MLS/HR Miscellaneous (Rapid Sequence Induction Bag) 1 ea STK-MED ONCE N/A 03/31/17 08:47 03/31/17 08:48 DC 03/31/17 11:28 1 EA Norepinephrine Bitartrate 8 mg/ Dextrose 508 ml @ 0 mls/hr Q0M PRN IV 03/31/17 09:15 03/31/17 10:55 DC 03/31/17 09:21 24.8 MLS/HR Daptomycin 400 mg/ Sodium Chloride 58 ml @ 100 mls/hr NOW STAT IV 03/31/17 09:01 03/31/17 09:35 DC 03/31/17 09:35 100 MLS/HR Aztreonam 2000 mg/ Dextrose 110 ml @ 100 mls/hr NOW STAT IV 03/31/17 09:01 03/31/17 10:06 DC 03/31/17 09:41 100 MLS/HR Hydrocortisone Sodium Succinate (Solu-Cortef IV) 100 mg NOW STAT IV 03/31/17 09:19 03/31/17 09:20 DC 03/31/17 09:21 100 MG Fentanyl Citrate (Fentanyl Inj) 100 mcg STK-MED ONCE .ROUTE 03/31/17 09:24 03/31/17 09:25 DC 03/31/17 09:25 50 MCG Midazolam HCl (Versed Inj) 2 mg STK-MED ONCE .ROUTE 03/31/17 09:24 03/31/17 09:25 DC 03/31/17 09:26 2 MG Fluconazole/ Sodium Chloride 200 mg/Prmx 100 ml @ 100 mls/hr NOW STAT IV 03/31/17 09:24 03/31/17 10:23 DC 03/31/17 11:27 100 MLS/HR Procedure Endotracheal Intubation Indication altered mental status, airway protection The patient was on 100% oxygen via NRB prior to the procedure. Suction, airway equipment, RSI drugs, respiratory equipment, and appropriate personnel were prepared prior to the initiation of the procedure. A time out was taken. Induction was performed with 20 mg of etomidate and 100 mg of succinylcholine. After observing the clinical benefit of the medications, the airway was easily visualized utilizing a 3.0 Mac. A 7.5 size ETT tube was placed atraumatically to 25 cm using standard technique. The cuff inflated without signs of malfunction. There were bilateral breath sounds, positive colormetric change, no gastric sounds, a good capnography waveform, and post procedure pulse oximetry was 98-100 %. Post intubation sedation and paralysis was administered using Versed and fentanyl drips. There were no complications. Lumbar Puncture Indication: Altered mental status, sepsis, immunocompromise status. Rule out meningitis Verbal consent was obtained after the risks and benefits were explained, including but not limited to headache, bleeding/clotting, scarring, infection, pain, and bone/joint/nerve damage. At this time, the risks of the procedure are less than the risks of NOT performing the procedure. A time out was taken and the correct patient and site identified. The patient was placed in the right lateral decubitus position and the back was prepped with betadine and draped in the standard fashion. The L3 intervertebral space was identified, anesthetized locally with 1% lidocaine without epinephrine, and the spinal needle was inserted through the skin with the bevel parallel to the dural fibers. The needle was carefully advanced into the lumbar cistern and 4 tubes of clear CSF was obtained. The stylet was replaced and the needle was removed. A bandaid was placed and the patient was placed in the supine position. The patient tolerated the procedure well and there were no complications. ECG Indication: altered mental status Rate (beats per minute): 95 Rhythm: sinus rhythm Findings: PAC, ST depression (Anterolateral), other (t-wave depression in the inferior and lateral leads) ED Course 0819: Past medical records reviewed. The patient was evaluated in room B01. A complete history and physical examination was performed. 0822: Ordered Naloxone HCl 0.4mg .ROUTE 0824: Ordered Sodium Chloride 250 ml @ 999 mls/hr IV, Sodium Chloride 1000 ml @ 125 mls/hr IV 0847: Ordered Rapid Sequence Induction Bag 0901: Ordered Aztreonam 2000 mg/Dextrose 110ml @ 100mls/hr IV, Aztreonam 2000 mg /Dextrose 110ml @ 100 mls/hr IV 0915: Ordered Norepinephrine Bitartrate 8mg/Dextrose 508ml @ 0mls/hr Protocol IV 0917: I discussed the patient's case with Dr Duran, of the ICU. He will evaluate the patient for further treatment. 0919: Ordered Hydrocortisone Sodium Succinate 100mg IV 0900: I discussed the patient's case with Dr. Lepe, [facility] Hospitalist. The patient will be evaluated for further treatment and care. 0924: Ordered Fluconazole/Sodium Chloride 200mg/Prmx 100 ml @ 100 mls/hr IV, Midazolam HCl 2mg IV, Fentanyl Inj 100mcg .ROUTE 0927: Ordered Fluconazole/Sodium Chloride 200mg/Prmx 100 ml @ 100 mls/hr IV 0930: Ordered Midazolam HCl 250ml @ 0mls/hr IV, Fentanyl Citrate 250 ml @ 0 mls/ hr IV 0937: Lidocaine/Epinephrine 20ml INFIL Medical Decision Differential diagnosis: Etiologies such as metabolic, infection, hypoglycemia, electrolyte abnormalities , cardiac sources, intracerebral event, toxicologic, neurologic, sepsis, acute hemorrhage, PE as well as others were entertained. This patient was evaluated and appeared to be critically ill. The patient has an indwelling right subclavian port was accessed and IV fluids initiated. She was placed on the law professor. Head CT was obtained and is negative for acute pathology. The patient seems altered and had vomited. There is a concern for aspiration as she is not currently able to protect her airway. Oxygen saturations were borderline on nasal cannula oxygen with a nasal trumpet. Patient is found to be markedly hypotensive. Fluid resuscitation was initiated. The patient was started on levophed. Blood cultures were obtained and a lactic acid was performed at greater than 8. Chest x-ray is nonfocal. Patient was intubated due to her altered mentation and respiratory status. Prior to intubation she was markedly somnolent but able to stick out her tongue to command. She was intubated as above. Patient was started on IV daptomycin and IV aztreonam. I discussed the case with Dr Duran, of the ICU. He has suggested adding on 100 mg of IV hydrocortisone as the patient is chronically on steroids. He will evaluate the patient in the emergency department. A lumbar puncture was performed as above, this was uneventful. CSF is negative for meningitis. No evidence of acute hemorrhage. Patient's family was made aware of the findings. Patient was transferred to the ICU under the care of Dr. Roberth egan service. Consults Time Called: 918 Consulting Physician: Melissa Pal Returned Call: [phone] I discussed the patient's case with Melissa Pal. The patient will be evaluated for further treatment and care. Additional Consults: Time Called: 915 Consulted Physician: Dr Duran, of the ICU Returned Call: [phone] Additional Comments: I discussed the patient's case with Dr Duran, of the ICU. He will evaluate the patient for further treatment. Impression Primary Impression: Sepsis Additional Impressions: Hypotension Altered mental status AML (acute myeloblastic leukemia) H/O stem cell transplant Critical Care I have personally spent greater than 120 minutes of critical care time in the direct management of this patient. This includes bedside care, interpretation of diagnostic studies, and testing, discussion with consultants, patient, and family members, and other required patient management activities. This 120 minutes is in excess of all separately billable procedures. Scribe Attestation The scribe's documentation has been prepared under my direction and personally reviewed by me in its entirety. I confirm that the note above accurately reflects all work, treatment, procedures, and medical decision making performed by me. Departure Information Dispostion Being Evaluated By Hospitalist Referrals Jaylin Corral D.O. (PCP) Problem Qualifiers Primary Impression: Sepsis Sepsis type: sepsis due to unspecified organism Qualified Codes: A41.9 - Sepsis, unspecified organism Additional Impressions: Hypotension Hypotension type: unspecified hypotension type Qualified Codes: I95.9 - Hypotension, unspecified Altered mental status Coma depth: Silverio coma 9-12 Coma timing: at arrival to emergency department AML (acute myeloblastic leukemia) Leukemia Active/Remission status: without remission Qualified Codes: C92.00 - Acute myeloblastic leukemia, not having achieved remission
[2017-03-31] MEDS ORDERED: AZTREONAM IV 2,000 MG in DEXTROSE 5% 100ML 100 ML IV STA (09:01)
[2017-03-31] MEDS ORDERED: NOREPINEPHRINE BIT INJ 8 MG in DEXTROSE 5% 500ML 500 ML IV STA (09:01)
[2017-03-31] MEDS ORDERED: DAPTOmycin IV 400 MG in SODIUM CHLORIDE 0.9% 50ML 50 ML IV STA (09:01)
[2017-03-31 09:07] LABS: ISTAT CREATININE 1.6 mg/dl (0.6-1.3); ISTAT HEMOGLOBIN 11.2 g/dl (12.0-16.0); ISTAT IONIZED CALCIUM 1.34 mmol/l (1.12-1.32)
[2017-03-31 09:08] LABS: HEMATOCRIT 36.4 % (37-47); MEAN CELL VOLUME 114.1 fL (80-100); MEAN CORPUSCULAR HEMOGLOBIN 36.4 pg (25-34); MEAN CORPUSCULAR HGB CONC 31.9 g/dl (32-36); MEAN PLATELET VOLUME 10.6 fL (7.4-10.4); PLATELET COUNT 122 K/uL (130-400); RED BLOOD COUNT 3.19 M/uL (4.2-5.4); WHITE BLOOD COUNT 10.59 K/uL (4.8-10.8)
--- NOTE | 2017-03-31 09:08 | DIAGNOSTIC IMAGING REPORT ---
CHEST ONE VIEW PORTABLE HISTORY: 62 years-old Female acute altered mental status with history of acute ascitic leukemia. COMPARISON: Portable chest radiograph 08/17/2016 TECHNIQUE: Portable upright AP view of the chest FINDINGS: Dual lumen right internal jugular hemodialysis catheter is seen with distal tip in the right atrium. Cardiac silhouette is moderately enlarged. There is no pneumothorax or large pleural effusion. There is an ill-defined subsegmental left basilar opacity present with blunting of the left costophrenic angle. No overt pulmonary edema. Bones are grossly intact. IMPRESSION: 1. Cardiomegaly without overt pulmonary edema. 2. Subsegmental left basilar opacity with mild blunting of the costophrenic angle may reflect atelectasis or airspace disease with small effusion. The above report was generated using voice recognition software. It may contain grammatical, syntax or spelling errors. Electronically signed by: Sadi Magaña M.D. 03/31/2017 9:07 AM Dictated Date/Time: 03/31/2017 9:04 AM
[2017-03-31] MEDS ORDERED: NOREPINEPHRINE BIT INJ 8 MG in DEXTROSE 5% 500ML 500 ML IV PRN (09:15)
[2017-03-31 09:17] LABS: PROTHROMBIN TIME (PATIENT) 10.6 SECONDS (9.0-12.0)
[2017-03-31] MEDS ORDERED: HYDROCORTISONE SOD SUCCINATE 100 MG/2 ML VIAL IV STA (09:19)
[2017-03-31] MEDS ORDERED: HYDROCORTISONE SOD SUCCINATE 100 MG/2 ML VIAL ONE (09:19)
[2017-03-31] MEDS ORDERED: FLUCONAZOLE / NSS 200 MG in PREMIXED NSS 100 ML IV STA ×2 (09:24→09:27)
[2017-03-31] MEDS ORDERED: MIDAZOLAM HCL 1 MG/ML 2ML VIAL ONE (09:24)
[2017-03-31] MEDS ORDERED: FENTANYL CITRATE INJ 50 MCG/1 ML 2 ML VIAL ONE (09:24)
[2017-03-31] MEDS ORDERED: MIDAZOLAM HCL 1 MG/ML 2ML VIAL IV STA (09:24)
[2017-03-31 09:25] LABS: BUN/CREATININE RATIO 11.7 (10-20); CALCIUM 9.3 mg/dl (8.5-10.1); CREATININE 1.9 mg/dl (0.60-1.20); MAGNESIUM 2.5 mg/dl (1.8-2.4); POTASSIUM 3.2 mmol/L (3.5-5.1)
--- NOTE | 2017-03-31 09:26 | DIAGNOSTIC IMAGING REPORT ---
CHEST ONE VIEW PORTABLE HISTORY: 62 years-old Female respiratory failure COMPARISON: Portable chest radiograph 03/31/2017 at 8:47 AM TECHNIQUE: Portable upright AP view of the chest FINDINGS: And endotracheal tube has been placed which terminates 2.6 cm superior to the level of the indira. Dual lumen hemodialysis catheter is present with distal tip terminating within the right atrium. Cardiac silhouette is moderately enlarged. There is no pneumothorax. The right lung is clear. Subsegmental left basilar opacity is again seen with blunting of left costophrenic angle. The bones are grossly intact. IMPRESSION: 1. Endotracheal tube terminates above the level of the indira. 2. Persistent subsegmental left basilar opacity with probable small left pleural effusion. The above report was generated using voice recognition software. It may contain grammatical, syntax or spelling errors. Electronically signed by: Sadi Magaña M.D. 03/31/2017 9:25 AM Dictated Date/Time: 03/31/2017 9:22 AM
[2017-03-31 09:30] LABS: CKMB/CK RATIO 2.1 (0-3.0)
[2017-03-31] MEDS ORDERED: FENTANYL 1250MCG/250ML NSS 250 ML IV PRN ×2 (09:30→15:30)
[2017-03-31] MEDS ORDERED: MIDAZOLAM 125MG/250ML D5W 250 ML IV PRN ×2 (09:30→15:30)
[2017-03-31] MEDS ORDERED: FENTANYL CITRATE INJ 50 MCG/1 ML 2 ML VIAL IV ONE (09:30)
[2017-03-31] MEDS ORDERED: LIDO/EPINEPHRINE/SOD BICARB 20 ML VIAL INFIL ONE (09:37)
[2017-03-31 09:38] LABS: COMPLETE YES; LYMPH ABS # 6.63 K/uL (1.2-3.4); LYMPHOCYTE % 62.6 %; META ABS # 0.37 K/uL (0-0); METAMYELOCYTE % 3.5 %; NEUTROPHILS % 32.2 %; POLYCHROMASIA 1+
[2017-03-31 10:00] LABS: ISTAT ARTERIAL BLOOD GAS HCO3 16 meq/L (19-24); ISTAT ARTERIAL BLOOD GAS PCO2 37 mmHg (35-46); ISTAT ARTERIAL BLOOD GAS PO2 229 mmHg (80-95); ISTAT ARTERIAL BLOOD GAS pH 7.24 (7.35-7.45); ISTAT CARBON DIOXIDE 17 mEq/l (24-31); ISTAT HEMATOCRIT 20 % (37-47); ISTAT HEMOGLOBIN 6.8 g/dl (12.0-16.0); ISTAT SODIUM 141 mEq/L (135-144)
[2017-03-31 10:17] LABS: CSF APPEARANCE CLEAR; CSF COLOR COLORLESS; CSF XANTHOCHROMIC NO XANTHOCHROMIA
[2017-03-31 10:26] LABS: CSF TOTAL PROTEIN 60.1 mg/dl (15.0-45.0)
[2017-03-31] MEDS ORDERED: DAPTOMYCIN CONSULT ACTIVE PRN ×4 (10:57→11:00)
[2017-03-31] MEDS ORDERED: AZTREONAM CONSULT ACTIVE PRN ×2 (11:00)
--- NOTE | 2017-03-31 11:05 | DIAGNOSTIC IMAGING REPORT ---
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 Acute head injury status post fall. COMPARISON: None. TECHNIQUE: Multiple axial CT images of the cervical spine were obtained without contrast. A dose lowering technique was utilized adhering to the principles of ALARA. FINDINGS: No acute cervical spine fracture or subluxation identified. Multilevel facet arthrosis, facet arthropathy and uncovertebral spurring is noted. Intervertebral disc space narrowing is most pronounced at the C5-C6 and C6-C7 levels. Posterior disc osteophyte complex formation at these levels results in a degree of central canal narrowing. Multilevel neuroforaminal stenosis is present, most pronounced on the left at C4-C5 where there is severe disease. Endotracheal tube is seen within the trachea. Intralobular septal thickening with ground glass opacities involve the lung apices. Debris is seen within the airway. Right sided IJ catheter is only partially imaged. Moderate right mastoid effusion is noted. Sphenoid sinus disease is partially imaged. IMPRESSION: 1. No acute cervical spine fracture or subluxation. 2. Multilevel degenerative changes as above. 3. Interlobular septal thickening with groundglass opacities of the lung apices suggest pulmonary edema. 4. Right mastoid effusion. The above report was generated using voice recognition software. It may contain grammatical, syntax or spelling errors. Electronically signed by: Sadi Magaña M.D. 03/31/2017 11:04 AM Dictated Date/Time: 03/31/2017 11:00 AM
--- NOTE | 2017-03-31 11:14 | DIAGNOSTIC IMAGING REPORT ---
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 Acute syncopal event. TECHNIQUE: Multiaxial CT images of the chest were performed without contrast. A dose lowering technique was utilized adhering to the principles of ALARA. COMPARISON: The chest 05/14/2016. FINDINGS: No dominant thyroid nodule identified. Evaluation for adenopathy is limited without use of IV contrast and also secondary to patient motion. There is nonspecific mildly prominent right hilar lymph node, 1.5 x 0.8 cm. Heart is mildly enlarged with a small pericardial effusion. Coronary arterial calcifications are seen. Hemodialysis catheter is noted terminating within the right atrium. There is an endotracheal tube within the trachea which terminates just proximal to the indira. Multifocal intralobular septal thickening is noted in conjunction with groundglass opacities and congestion of the pulmonary vasculature. Consolidative dependent opacities involves the lower lobes with probable trace effusions. Scattered patchy consolidative opacities are present within perihilar distributions. Subpleural cystic changes involve the lung apices. 4 mm nodular opacity abutting the minor fissure is again seen suggesting perifacial lymph node which is unchanged. The previously noted 2 mm noncalcified pulmonary nodule the right upper lobe is not clearly identified. Central errors are patent. The bifurcation of the lung bases is mildly limited secondary to patient motion. Imaged upper abdominal structures demonstrate no focal abnormality. No acute displaced rib fracture is identified. Minimal cortical irregularity involving the manubrium both anterior and posteriorly on the sagittal imaging is thought to be secondary to motion artifact. Additional artifactual changes are seen along the lateral ribs. IMPRESSION: 1. Limited study secondary to respiratory and patient motion. No acute fracture or pneumothorax identified. 2. Cardiomegaly with mild pulmonary edema and dependent consolidative opacities suggesting atelectasis, pneumonia or aspiration pneumonitis with trace pleural effusions. 3. Small pericardial effusion. 4. Right IJ hemodialysis catheter terminates in the right atrium. Endotracheal tube terminates above the level of the indira. Electronically signed by: Said Magaña M.D. 03/31/2017 11:12 AM Dictated Date/Time: 03/31/2017 11:04 AM
--- NOTE | 2017-03-31 11:24 | DIAGNOSTIC IMAGING REPORT ---
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 COMPARISON: CT abdomen and pelvis 05/14/2016 TECHNIQUE: Multiple axial CT images of the abdomen and pelvis were obtained without contrast. A dose lowering technique was used consistent with the principals of FABIANA. FINDINGS: Mild cardiomegaly is noted with trace pericardial effusion. Hemodialysis catheter terminates within the right atrium. Dependent consolidative opacities are present with trace pleural effusions. There is no pneumoperitoneum identified. The liver, spleen, pancreas and adrenal glands are within normal limits. There is suggestion of mild gallbladder wall thickening without cholelithiasis identified. Mild nonspecific left-sided perinephric edema is noted. Ureters are unremarkable. Urinary bladder is collapsed with Rajan catheter in place. Nondependent urinary bladder air is likely from instrumentation. Multiple calcified fibroids are seen throughout the uterus, largest which measures 3.2 cm on the left. The abdominal aorta is normal in both course and caliber. No bulky retroperitoneal adenopathy identified. There are a few scattered periaortic lymph nodes measuring up to 9 x 5 mm which are nonspecific and appear unchanged. There are a few scattered nonspecific air-fluid levels seen within several loops of nondilated small bowel are likely incidental. There is no bowel obstruction. Stool ball seen within the rectal vault. The majority of the colon is collapsed with somewhat a haustral pattern. The appendix appears normal. No focal bowel wall thickening. Soft tissues are unremarkable. Nonspecific sclerosis involving the left ilium adjacent to the SI joint is unchanged, likely benign. Motion artifact mildly limits evaluation of the ribs. No acute fracture is identified. There is mild central depression seen involving the superior endplate of L3 which appears chronic. This however is new from comparison study dated 05/14/2016. Minimal cortical irregularity involving the sternum is likely from motion. IMPRESSION: 1. No acute intra-abdominal or intrapelvic abnormality identified. No evidence of solid organ injury. 2. Mild central depression involving the L3 vertebral body with associated Schmorl's node appears chronic, however is new from 05/14/2016. No associated retropulsion. 3. Suggested mild gallbladder wall thickening without cholelithiasis is a nonspecific finding and be correlated with ultrasound if clinically indicated. 4. Trace pericardial and pleural effusions with bibasilar consolidation. 5. Additional incidental findings as above. The above report was generated using voice recognition software. It may contain grammatical, syntax or spelling errors. Electronically signed by: Sadi Magaña M.D. 03/31/2017 11:22 AM Dictated Date/Time: 03/31/2017 11:13 AM
[2017-03-31] MEDS: POTASSIUM CHLR 10 MEQ / WTR 10 MEQ in PREMIXED WATER 100 ML IV SCH ×4 (11:28→16:08)
[2017-03-31] MEDS: VASOPRESSIN INJ 50 UNITS in SODIUM CHLORIDE 0.9% 500ML 500 ML IV SCH (11:29)
[2017-03-31] MEDS: SODIUM CHLORIDE 0.9% 1000ML 1,000 ML IV SCH ×4 (11:29→17:23)
[2017-03-31 11:34] LABS: CSF CHEMISTRY TUBE # 2
[2017-03-31] MEDS ORDERED: NURSING VERBAL MED ORDER ONE (11:45)
[2017-03-31] MEDS ORDERED: EPINEPHRINE HCL 4 MG in DEXTROSE 5% 250ML IV PRN (11:45)
[2017-03-31 12:07] LABS: MANUAL MICROSCOPIC REQUIRED? NO; REVIEW REQ? NO; URINE APPEARANCE CLEAR (CLEAR); URINE BILIRUBIN NEG (NEG); URINE COLOR YELLOW; URINE NITRITE POS (NEG); URINE SPECIFIC GRAVITY 1.016 (1.000-1.030); UROBILINOGEN NEG (NEG); ZZURINE CULT IF INDIC CATH NO
[2017-03-31 12:36] LABS: ISTAT ARTERIAL BLOOD GAS HCO3 14 meq/L (19-24); ISTAT ARTERIAL BLOOD GAS PCO2 29 mmHg (35-46); ISTAT ARTERIAL BLOOD GAS PO2 51 mmHg (80-95); ISTAT ARTERIAL BLOOD GAS pH 7.26 (7.35-7.45); ISTAT CARBON DIOXIDE 14 mEq/l (24-31); ISTAT DELIVERY SYSTEM Ventilator; ISTAT FIO2 70 %; ISTAT PEEP 5; ISTAT RATE 12; ISTAT SITE Art Line; VE 6; Vt 500
[2017-03-31 13:03] LABS: AMYLASE 52 U/L (25-115); HEMATOCRIT 26.7 % (37-47); MEAN CELL VOLUME 109.9 fL (80-100); MEAN CORPUSCULAR HGB CONC 33.7 g/dl (32-36); RED BLOOD COUNT 2.43 M/uL (4.2-5.4)
[2017-03-31 13:08] LABS: MEAN PLATELET VOLUME 9.9 fL (7.4-10.4); PLATELET COUNT 74 K/uL (130-400)
[2017-03-31 13:08] LABS: BENZODIAZEPINE, URINE NEG (NEG); COCAINE,URINE NEG (NEG); PHENCYCLIDINE, URINE NEG (NEG)
[2017-03-31] MEDS ORDERED: CALCIUM CHLORIDE 10% 10 ML SYR IV STA ×2 (13:36→17:30)
[2017-03-31 13:37] LABS: BASO ABS # 0.04 K/uL (0-0.2); BASOPHIL % 0.9 %; COMPLETE YES; DOHLE BODIES 1+; HYPERSEGMENTED POLYS 1+; LARGE PLATELETS 1+; LYMPH ABS # 3.14 K/uL (1.2-3.4); MYELOCYTE % 0.9 %; NEUTROPHILS % 33.3 %; PLT ESTIMATE DECREASED; TEAR DROP CELLS 1+
[2017-03-31] MEDS: NOREPINEPHRINE BIT INJ 8 MG in DEXTROSE 5% 500ML 500 ML IV SCH ×2 (13:41→18:53)
[2017-03-31] MEDS: EpINEphrine HCL INJ 4 MG in DEXTROSE 5% 250ML 250 ML IV SCH ×2 (13:49→18:54)
[2017-03-31] MEDS ORDERED: HYDROCORTISONE IV 50 MG in SYRINGE 0 ML IV SCH (14:00)
--- NOTE | 2017-03-31 14:25 | ECHOCARDIOGRAM REPORT ---
*NOTICE TO RECEIVING [employer] This information is strictly Confidential and protected under [place] law. [place] law prohibits you from making any further disclosure of this information unless further disclosure is expressly permitted by the written consent of the person to whom it pertains or is authorized by law. A general authorization for the release of medical or other information is not sufficient for this purpose. Hospital accepts no responsibility if the information is made available to any other person, INCLUDING THE PATIENT. Interpretation Summary * Name: JONATHAN YEN Study Date: 03/31/2017 12:45 PM BP: 54/39 mmHg * [facility] HR: 87 * : 1955 (M/d/yyyy) Gender: Female Height: 66 in * Age: 62 yrs Ethnicity: CA Weight: 145 lb * Ordering Physician: Edmund Lepe * Referring Physician: Self, Referred * Performed By: Jairo Way RDCS * * Reason For Study: Acute hypotension, unresponsiveness, shock * BSA: 1.7 m2 * -- Conclusions -- * There is borderline asymmetric left ventricular hypertrophy. * Left ventricular systolic function is normal. * Grade I diastolic dysfunction, (abnormal relaxation pattern). * The left atrium is mildly dilated. * Right ventricular systolic pressure is elevated at 30-40mmHg. * Small right pleural effusion. Procedure Details * A complete two-dimensional transthoracic echocardiogram was performed (2D, M-mode, Doppler and color flow Doppler). * The study was technically adequate. Left Ventricle * The left ventricle is normal in size. * There is borderline asymmetric left ventricular hypertrophy. * Left ventricular systolic function is normal. * Ejection Fraction = 60-65%. * Grade I diastolic dysfunction, (abnormal relaxation pattern). * The left ventricular wall motion is normal. Right Ventricle * The right ventricle is normal in size and function. Atria * The left atrium is mildly dilated. * Right atrial size is normal. Mitral Valve * The mitral valve is grossly normal. * There is borderline mitral valve prolapse. * Significant mitral regurgitation is absent. Tricuspid Valve * The tricuspid valve is not well visualized, but is grossly normal. * There is trace tricuspid regurgitation. * Right ventricular systolic pressure is elevated at 30-40mmHg. Aortic Valve * The aortic valve is normal in structure and function. * No hemodynamically significant valvular aortic stenosis. * Trace aortic regurgitation. Great Vessels * The aortic root is normal size. Pericardium/Pleural * There is no pericardial effusion. * Small right pleural effusion. MMode 2D Measurements and Calculations IVSd 1.3 cm IVSs 1.8 cm LVIDd 3.9 cm LVIDs 2.3 cm LVPWd 1.1 cm LVPWs 1.6 cm IVS/LVPW 1.2 FS 41.1 % EDV(Teich) 67.9 ml ESV(Teich) 18.6 ml EF(Teich) 72.6 % EDV(cubed) 61.6 ml ESV(cubed) 12.6 ml EF(cubed) 79.6 % % IVS thick 34.5 % % LVPW thick 51.1 % LV mass(C)d 161.4 grams LV mass(C)dI 92.5 grams/m\S\2 LV mass(C)s 145.9 grams LV mass(C)sI 83.6 grams/m\S\2 SV(Teich) 49.3 ml SI(Teich) 28.3 ml/m\S\2 SV(cubed) 49.0 ml SI(cubed) 28.1 ml/m\S\2 Ao root diam 2.7 cm Ao root area 5.9 cm\S\2 LA dimension 4.2 cm asc Aorta Diam 3.3 cm LA/Ao 1.5 LVOT diam 2.0 cm LVOT area 3.3 cm\S\2 LVAd ap4 22.9 cm\S\2 LVLd ap4 7.8 cm EDV(MOD-sp4) 55.0 ml LVAs ap4 13.0 cm\S\2 LVLs ap4 7.0 cm ESV(MOD-sp4) 20.0 ml EF(MOD-sp4) 63.6 % LVAd ap2 22.4 cm\S\2 LVLd ap2 7.6 cm EDV(MOD-sp2) 55.0 ml LVAs ap2 12.6 cm\S\2 LVLs ap2 6.2 cm ESV(MOD-sp2) 21.0 ml EF(MOD-sp2) 61.8 % SV(MOD-sp4) 35.0 ml SI(MOD-sp4) 20.1 ml/m\S\2 SV(MOD-sp2) 34.0 ml SI(MOD-sp2) 19.5 ml/m\S\2 Doppler Measurements and Calculations MV E max rodrigo 70.1 cm/sec MV A max rodrigo 82.9 cm/sec MV E/A 0.85 MV dec time 0.22 sec Ao V2 max 166.5 cm/sec Ao max PG 11.1 mmHg Ao max PG (full) 5.9 mmHg AMANDA(V,A) 2.2 cm\S\2 AMANDA(V,D) 2.2 cm\S\2 LV V1 max PG 5.2 mmHg LV V1 max 113.8 cm/sec PA V2 max 173.7 cm/sec PA max PG 12.1 mmHg PA acc slope 512.9 cm/sec\S\2 PA acc time 0.15 sec TR max rodrigo 244.3 cm/sec PA pr(Accel) 9.3 mmHg
[2017-03-31 15:25] LABS: ISTAT ARTERIAL BLOOD GAS HCO3 13 meq/L (19-24); ISTAT ARTERIAL BLOOD GAS PCO2 39 mmHg (35-46); ISTAT ARTERIAL BLOOD GAS PO2 142 mmHg (80-95); ISTAT ARTERIAL BLOOD GAS pH 7.14 (7.35-7.45); ISTAT CARBON DIOXIDE 14 mEq/l (24-31); ISTAT DELIVERY SYSTEM Ventilator; ISTAT FIO2 100 %; ISTAT PEEP 12; ISTAT RATE 20; ISTAT SITE Art Line; VE 10; Vt 500
[2017-03-31] MEDS ORDERED: INSULIN IV INFUSION PROTOCOL SCH (15:30)
[2017-03-31] MEDS ORDERED: GLUCAGON FOR INJ 1 MG VIAL SQ PRN (15:30)
[2017-03-31] MEDS ORDERED: GLUCOSE 10 TABS/TUBE PO PRN (15:30)
[2017-03-31] MEDS ORDERED: GLUCOSE 40% GEL 15 GM TUBE PO PRN (15:30)
--- NOTE | 2017-03-31 15:39 | Pharmacy Progress Note ---
Pharmacy Progress Note Date of Service Mar 31, 2017. Progress Note ASSESSMENT: * 62 yo admitted to ICU s/p intubation in refractory shock * Per MD, aggressive antibiotics and glycemic control warranted GLYCEMIC CONTROL: * Initiate Insulin drip per Moderate stress protocol * Goal range 120-200 mg/dL ANTIBIOTICS: * Vancomycin * 1250 mg (~19 mg/kg) X 1 to be given @1600 * Given clinical status/JAMIL, get Vancomycin Random Level ~12 hrs after first dose * Pt is likely hypermetabolic due to refractory shock and may regain renal function quickly (per MD, making urine) * Procalcitonin 32.25 and Lactic Acid 4.9 so I do not want to fall below therapeutic concentrations * Azactam * 2 g IV every 8 hours indicated * Renal function borderline for renal adjustment * Continue higher dose for now given clinical status and decrease first thing tomorrow if renal function worsens * Fluconazole * On as outpatient * Target dose 400-800 mg IV daily * Given renal function, continue at 400 mg IV daily for now and consider changing tomorrow * Clindamycin * 600 mg IV every 8 hours Thank you for engaging the clinical pharmacy consult service in the care of this patient. Please let us know if we can be of further assistance.
--- NOTE | 2017-03-31 15:45 | Procedure Note ---
Procedure Note Procedure Date Mar 31, 2017. Procedure Description Procedure Name: Left axillary a-line Procedure time out: side/site verified Consent obtained: emergent consent implied Time of procedure: 11:30 Performed by: physician lay up operator Indications: diagnostic Contraindications: none Description: The left axilla was prepared with Chlorhexidine. Under sterile conditions, the axillary artery was identified via ultrasound. The skin was then infiltrated by Lidocaine. Using US guidance, a needle was introduced in the artery (one stick only, not [id number]). A guidewire was then passed in the artery and the needle was removed. A 20 G a-line was introduced over the guidewire and guidewire was removed intact. A-line connected to pressure tubing, with adequate wave-forms. Line sutured to skin and covered with adhesive dressing and Biopatch. Complications: none Patient tolerated procedure: well Post-procedure vital signs: reviewed and stable
[2017-03-31] MEDS ORDERED: ARTIFICIAL TEARS OP OINT 3.5 GM TUBE OPB ONE (15:52)
--- NOTE | 2017-03-31 15:54 | Procedure Note ---
Procedure Note Procedure Date Mar 31, 2017. Central Line Procedure time out: side/site verified, sterile procedure used Consent obtained: written Time of procedure: 15:00 Performed by: attending Indications: poor venous access, central drug admin. Prep: chlorhexadine prep, sterile drape, sterile procedures used Anesthesia: local injection, lidocaine 1% without epi Volume anesthetic (ml's): 5 Central line lumen: triple Central line location: subclavian (L) Additional details: percutaneous placement, ultrasound guidance, Selinger technique used, line not sutured, good blood return CXR: appropriate position Complications: none Patient tolerated procedure: well Post-procedure vital signs: reviewed and stable
[2017-03-31 15:56] LABS: ALB/GLOB RATIO 0.8 (0.9-2); BUN/CREATININE RATIO 15.6 (10-20); CALCIUM 8.6 mg/dl (8.5-10.1); CREATININE 1.5 mg/dl (0.60-1.20); MAGNESIUM 1.7 mg/dl (1.8-2.4); PHOSPHORUS 5.4 mg/dl (2.5-4.9); POTASSIUM 3.6 mmol/L (3.5-5.1)
[2017-03-31] MEDS ORDERED: VANCOMYCIN INJ 1,250 MG in SODIUM CHLORIDE 0.9% 250ML 250 ML IV ONE (16:00)
[2017-03-31 16:02] LABS: CKMB/CK RATIO 2.5 (0-3.0); THYROID STIMULATING HORMONE 4.56 uIu/ml (0.300-4.500)
[2017-03-31] MEDS: CLINDAMYCIN IV 600 MG in DEXTROSE 5% 50ML 50 ML IV SCH (16:05)
[2017-03-31 16:13] LABS: BETA-HYDROXYBUTYRATE 0.75 mg/dL (0.2-2.81)
[2017-03-31] MEDS ORDERED: MAGNESIUM SULFATE 1GM / D5W 1 GM in PREMIXED IN D5W 100 ML IV STA (16:27)
--- NOTE | 2017-03-31 16:37 | DIAGNOSTIC IMAGING REPORT ---
CHEST ONE VIEW PORTABLE HISTORY: 62 years-old Female s/P LEFT sc tlc COMPARISON: Portable chest radiograph 03/31/2017 at 9:15 AM TECHNIQUE: Portable upright AP view of the chest FINDINGS: The endotracheal tube has been advanced, now terminating 2.2 cm superior to the indira. Enteric tube has been placed coursing below the level the diaphragm within the region of the gastric lumen, tip not imaged. Left subclavian central venous catheter has been placed with distal tip terminating near the mid SVC. Dual lumen hemodialysis catheter is unchanged. Cardiac silhouette is moderately enlarged. No postprocedural pneumothorax identified. There is mild pulmonary vascular congestion with persistent subsegmental left basilar opacity with trace pleural effusion. Bones are grossly intact. IMPRESSION: 1. Interval placement of a left subclavian central venous catheter terminating in the mid SVC. No postprocedural pneumothorax. 2. Slight advancement of endotracheal tube, still terminating above the indira. 3. Subsegmental left basilar opacity with small pleural effusion. The above report was generated using voice recognition software. It may contain grammatical, syntax or spelling errors. Electronically signed by: Sadi Magaña M.D. 03/31/2017 4:35 PM Dictated Date/Time: 03/31/2017 4:32 PM
[2017-03-31] MEDS: INSULIN REGULAR 250 UNITS in SODIUM CHLORIDE 0.9% 250ML 250 ML IV SCH (17:09)
[2017-03-31] MEDS: ALBUMIN HUMAN 5% 12.5 GM/250 ML VIAL IV SCH ×2 (17:21→22:58)
[2017-03-31] MEDS: HYDROCORTISONE IV 100 MG in SYRINGE 0 ML IV SCH (17:22)
[2017-03-31] MEDS: AZTREONAM 2000 MG in DEXTROSE 5% 100 ML IV SCH (17:22)
[2017-03-31] MEDS ORDERED: OPTIRAY 320 IV PRN (18:30)
[2017-03-31 18:50] LABS: HEMATOCRIT 25.7 % (37-47); MEAN CELL VOLUME 110.8 fL (80-100); MEAN CORPUSCULAR HEMOGLOBIN 37.9 pg (25-34); MEAN CORPUSCULAR HGB CONC 34.2 g/dl (32-36); RED BLOOD COUNT 2.32 M/uL (4.2-5.4); WHITE BLOOD COUNT 6.52 K/uL (4.8-10.8)
[2017-03-31 19:08] LABS: INR 1.2 (0.9-1.1); PARTIAL THROMBOPLASTIN RATIO 1.6; PROTHROMBIN TIME (PATIENT) 12.8 SECONDS (9.0-12.0)
[2017-03-31 19:11] LABS: ISTAT ARTERIAL BLOOD GAS HCO3 11 meq/L (19-24); ISTAT ARTERIAL BLOOD GAS PCO2 36 mmHg (35-46); ISTAT ARTERIAL BLOOD GAS PO2 131 mmHg (80-95); ISTAT CARBON DIOXIDE 12 mEq/l (24-31); ISTAT DELIVERY SYSTEM Ventilator; ISTAT FIO2 80 %; ISTAT PEEP 12; ISTAT RATE 20; ISTAT SITE Art Line; VE 10; Vt 500
[2017-03-31 19:36] LABS: ALB/GLOB RATIO 0.8 (0.9-2); CREATININE 1.5 mg/dl (0.60-1.20); MAGNESIUM 2.2 mg/dl (1.8-2.4)
--- NOTE | 2017-03-31 19:36 | Critical Care Consultation ---
Critical Care Consultation Date of Consultation: Mar 31, 2017. 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 She ate clam chowder, chicken strips and had half a glass of wine. This morning at 5 AM she woke up to walk the dogs. The woke up later, went outside at 7:15, he did not see her but assumed she is sleeping in her bedroom, returned 10 minutes later and found her next to the bed on the ground, with vomitus around ( containing mainly pieces of food from last night) and feces, no bleeding. She was confused, poorly responsive, but moving around. In ED she was intubated, received fluids, Abx, started on Levophed via chest Hastings catheter. LP performed as well. The patient seemed to move purposefully on both sides, grabbing onto the handrails. In the ICU she continued to deteriorate, required escalating pressor support, currently on high doses of Levophed, Vasopressin and Epinephrine. I would estimate she received at least 7 liters of fluid so far. Inserted left axillary a-line and left subclavian central line. Past Medical/Surgical History AML, s/p chemotherapy and stem cell transplant at [facility]. H/o Takotsubo cardiomyopathy - in 2011. Hypothyroidism H/o GI bleeding - in the setting of thrombocytopenia, was declined for colonoscopy at that time Autoimmune hepatitis in 2016 ITP in 2016 Family History FH: alpha 1 antitrypsin deficiency SISTER FH: cancer FATHER MOTHER FH: diabetes mellitus FH: gallbladder disease FH: heart disease FATHER FH: hypertension FH: lung disease MOTHER Hemochromatosis SISTER Stroke MOTHER Social History Smoking Status: Never Smoker Drug Use: none Marital Status: Housing Status: lives with family Occupation Status: employed Allergies Coded Allergies: Penicillins (Verified Allergy, Unknown, ., 03/31/17) Sulfa Antibiotics (Verified Allergy, Unknown, ., 03/31/17) Home Medications Scheduled Acyclovir (Acyclovir), 400 MG PO BID Budesonide (Entocort Ec), 3 MG PO TID Dexamethasone (Dexamethasone), 2 MG PO QAM Fluconazole (Diflucan), 100 TAB PO DAILY Insulin Glargine (Lantus Solostar), 2 UNITS SC DAILY Levofloxacin (Levaquin), 500 MG PO DAILY Levothyroxine Sodium (Synthroid), 100 MCG PO DAILY Magnesium Oxide (Mag-Ox), 400 MG PO BID Metoprolol Succinate (Toprol Xl), 12.5 MG PO DAILY Omeprazole (Prilosec), 20 MG PO BID Potassium Chloride (Micro-K Ext Rel), 10 MEQ PO DAILY Ursodiol (Ursodiol), 300 MG PO TID [Magnesium], 250 MG IV DAILY Scheduled PRN Acetaminophen (Tylenol), 650 MG PO Q4H PRN for Mild Pain Dextromethorphan-Guaifenesin (Robitussin-Dm Syrup), 5 ML PO QID PRN for Cough Diphenoxylate W/ Atropine (Lomotil), 2.5 MG PO Q6H PRN for Diarrhea Lorazepam (Ativan), 0.5 MG PO Q8 PRN for Anxiety Ondasetron Odt (Zofran Odt), 8 MG SL Q6H PRN for Nausea or Vomiting Oxycodone Ir (Roxicodone Ir), 5 MG PO Q4H PRN for Moderate to Severe Pain Current Inpatient Medications Current Inpatient Medications Medications (Trade) Dose Ordered Sig/Adelaida Route Start Time Stop Time Status Last Admin Dose Admin Sodium Chloride 1,000 ml @ 125 mls/hr Q8H IV 03/31/17 10:15 04/30/17 10:14 03/31/17 17:23 125 MLS/HR Norepinephrine Bitartrate 8 mg/ Dextrose 508 ml @ 0 mls/hr Q0M IV 03/31/17 10:15 04/30/17 10:14 03/31/17 13:41 149 MLS/HR Pantoprazole Sodium 40 mg/ Syringe 10 ml @ 5 mls/min DAILY@2100 IV 03/31/17 21:00 04/30/17 20:59 Vasopressin 50 units/Sodium Chloride 502.5 ml @ 24 mls/hr [id number] IV 03/31/17 10:43 04/30/17 10:42 03/31/17 11:29 24 MLS/HR Aztreonam (Consult) 1 ea UD PRN N/A 03/31/17 11:00 04/30/17 10:59 Epinephrine HCl 4 mg/Dextrose 254 ml @ 0 mls/hr Q0M IV 03/31/17 12:27 04/30/17 12:26 03/31/17 13:49 24.8 MLS/HR Hydrocortisone Sodium Succinate 100 mg/Syringe 2 ml @ 4 mls/min Q8H IV 03/31/17 18:00 04/30/17 13:59 03/31/17 17:22 4 MLS/MIN Clindamycin Phosphate 600 mg/ Dextrose 54 ml @ 100 mls/hr Q8H IV 03/31/17 16:00 04/02/17 15:59 03/31/17 16:05 100 MLS/HR Fluconazole/ Sodium Chloride 200 mg/Prmx 100 ml @ 100 mls/hr DAILY@1000,1100 IV 04/01/17 10:00 04/03/17 09:59 Vancomycin HCl 1250 mg/Sodium Chloride 275 ml @ 125 mls/hr TODAY@1600 ONCE IV 03/31/17 16:00 03/31/17 18:11 03/31/17 16:05 125 MLS/HR Fentanyl Citrate 250 ml @ 0 mls/hr Q0M PRN IV 03/31/17 15:30 04/14/17 15:29 Midazolam HCl 250 ml @ 0 mls/hr Q0M PRN IV 03/31/17 15:30 04/30/17 15:29 Glucose (Glucose 40% Gel) UD PRN PO 03/31/17 15:30 04/30/17 15:29 Glucose (Glucose Chew Tab) 1 tabs UD PRN PO 03/31/17 15:30 04/30/17 15:29 Dextrose (Dextrose 50% 50ML Syringe) 50 ml UD PRN IV 03/31/17 15:30 04/30/17 15:29 Glucagon (Glucagon Inj) 1 mg UD PRN SQ 03/31/17 15:30 04/30/17 15:29 Aztreonam 2000 mg/ Dextrose 110 ml @ 110 mls/hr Q8H IV 03/31/17 18:00 04/07/17 17:59 03/31/17 17:22 110 MLS/HR Artificial Tears (Lacri-Lube Oph Oint) 1 appln Q8 OPB 03/31/17 22:00 04/30/17 21:59 Albumin Human (Albumin 5%) 25 gm Q6H IV 03/31/17 16:30 04/01/17 10:31 03/31/17 17:21 25 GM Insulin Human Regular 250 units/ Sodium Chloride 252.5 ml @ 0 mls/hr DAILY@1130 IV 03/31/17 16:41 04/30/17 16:40 03/31/17 17:09 1.6 MLS/HR Review of Systems Unable to obtain secondary to being intubated Physical Exam Date Time Temp Pulse Resp B/P (MAP) Pulse Ox O2 Delivery O2 Flow Rate FiO2 03/31/17 16:45 36.8 106 95/53 (67) 100 Mechanical Ventilator 80 97/50 (66) 03/31/17 16:42 100 Mechanical Ventilator 03/31/17 14:44 100 03/31/17 14:31 35.4 105 22 82/36 (51) 100 03/31/17 14:30 35.4 103 22 81/36 (51) 03/31/17 14:19 35.3 94 20 63/20 (34) 03/31/17 14:16 35.3 94 24 56/21 (33) 71 03/31/17 14:15 35.3 93 22 57/20 (32) 71 03/31/17 14:01 35.0 101 23 81/37 (52) 93 03/31/17 14:00 35.0 101 23 82/39 (53) 95 03/31/17 13:40 36.9 101 22 83/39 92 Mechanical Ventilator 03/31/17 12:46 34.5 89 15 87/43 (58) 96 03/31/17 12:45 34.5 89 20 83/40 (54) 95 03/31/17 12:31 34.5 86 18 75/34 (48) 100 03/31/17 12:30 34.5 86 21 73/34 (47) 100 03/31/17 12:16 34.6 85 18 68/1 (23) 87 03/31/17 12:15 34.5 86 21 58/20 (33) 03/31/17 12:01 94 25 89/42 (58) 95 03/31/17 12:00 93 9 95/47 (63) 03/31/17 10:56 70 03/31/17 10:30 93 22 54/39 93 Ambu-Bag 15.0 03/31/17 10:20 91 20 62/30 100 Mechanical Ventilator 100 03/31/17 10:10 95 20 77/42 100 Mechanical Ventilator 100 03/31/17 10:00 96 24 52/32 96 Mechanical Ventilator 100 03/31/17 09:40 99 22 60/34 95 Mechanical Ventilator 100 03/31/17 09:30 100 18 61/38 99 Mechanical Ventilator 100 03/31/17 09:20 94 20 59/41 94 Mechanical Ventilator 100 03/31/17 09:10 100 03/31/17 09:04 95 52/31 92 Mechanical Ventilator 03/31/17 09:01 103 21 93 Mechanical Ventilator 03/31/17 08:53 109 03/31/17 08:34 36.9 110 22 37/29 91 Non-Rebreather 15.0 General - Thin female, intubated, in no distress, flushed appearance HEENT - NC/AT, ET tube, OG tube, PERRL Neck - supple, trachea midline Lungs: coarse breath sounds b/l, no wheezing, few scattered rhonchi CVS: S1S2 regular, no audible murmurs Chest: Right sided tunneled triple lumen catheter, left subclavian TLC Ext: No pedal edema, cyanotic feet, mottled knees Skin: flushed face and chest, numerous areas of purpura, petechia over arms, upper chest and legs. 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 Laboratory Results Last 24 Hours Test 03/31/17 00:00 03/31/17 08:45 03/31/17 08:47 03/31/17 08:50 Stool Occult Blood POSITIVE White Blood Count 10.59 K/uL Red Blood Count 3.19 M/uL Hemoglobin 11.6 g/dL Hematocrit 36.4 % Mean Corpuscular Volume 114.1 fL Mean Corpuscular Hemoglobin 36.4 pg Mean Corpuscular Hemoglobin Concent 31.9 g/dl Platelet Count 122 K/uL Mean Platelet Volume 10.6 fL RDW Standard Deviation 65.0 fL RDW Coefficient of Variation 15.6 % Nucleated RBC Absolute Count (auto) 0.12 K/uL Neutrophils % (Manual) 32.2 % Lymphocytes % (Manual) 62.6 % Monocytes % (Manual) 1.7 % Metamyelocytes % 3.5 % Nucleated Red Blood Cells % 1.1 % Neutrophils # (Manual) 3.41 K/uL Total Absolute Neutrophils 3.41 K/uL Lymphocytes # (Manual) 6.63 K/uL Total Absolute Lymphocytes 6.63 K/uL Monocytes # (Manual) 0.18 K/uL Metamyelocytes # 0.37 K/uL Polychromasia 1+ Macrocytosis PRESENT Prothrombin Time 10.6 SECONDS Prothromb Time International Ratio 1.0 Activated Partial Thromboplast Time 25.0 SECONDS Partial Thromboplastin Ratio 1.0 Sodium Level 140 mmol/L Potassium Level 3.2 mmol/L Chloride Level 104 mmol/L Carbon Dioxide Level 19 mmol/L Anion Gap 17.0 mmol/L Blood Urea Nitrogen 22 mg/dl Creatinine 1.90 mg/dl Est Creatinine Clear Calc Drug Dose 29.1 ml/min Estimated GFR () 32.4 Estimated GFR (Non- 28.0 BUN/Creatinine Ratio 11.7 Random Glucose 219 mg/dl Calcium Level 9.3 mg/dl Magnesium Level 2.5 mg/dl Total Bilirubin 0.5 mg/dl Direct Bilirubin 0.3 mg/dl Aspartate Amino Transf (AST/SGOT) 83 U/L Alanine Aminotransferase (ALT/SGPT) 139 U/L Alkaline Phosphatase 357 U/L Total Creatine Kinase 186 U/L Creatine Kinase MB 3.9 ng/ml Creatine Kinase MB Ratio 2.1 Total Protein 6.0 gm/dl Albumin 2.9 gm/dl Procalcitonin 32.25 ng/ml Cortisol AM Sample 7.64 mcg/dl Bedside Glucose 214 mg/dl Bedside Prothrombin Time INR 0.9 Test 03/31/17 08:51 03/31/17 08:55 03/31/17 08:56 03/31/17 09:41 Bedside Hemoglobin 11.2 g/dl 6.8 g/dl Bedside Hematocrit 33 % 20 % Bedside Sodium 139 mEq/L 141 mEq/L Bedside Potassium 3.2 mEq/L 2.6 mEq/L Bedside Chloride 102 mEq/L Bedside Total CO2 21 mEq/l Anion Gap 19.0 mmol/L Bedside Blood Urea Nitrogen 22 mg/dl Bedside Creatinine 1.6 mg/dl Bedside Glucose (other) 220 mg/dl Bedside Ionized Calcium (Alli) 1.34 mmol/l Bedside Lactic Acid Venous 8.96 mmol/L Bedside Troponin I 0.180 ng/ml Bedside Blood Gas pH (LAB) 7.24 Bedside Blood Gas pCO2 (LAB) 37 mmHg Bedside Blood Gas pO2 (LAB) 229 mmHg Bedside Blood Gas HCO3 (LAB) 16 meq/L Bedside Blood Gas Total CO2 17 mEq/l Bedside Blood Gas Base Excess (LAB) -12.0 meq/L Bedside Blood Gas O2 Saturation 100.0 % Test 03/31/17 09:50 03/31/17 11:40 03/31/17 12:24 03/31/17 12:26 CSF Color COLORLESS CSF Appearance CLEAR CSF WBC 0 /uL CSF RBC 0 /uL CSF Xanthrochromic NO XANTHOCHROMIA CSF Cell Count Tube # 4 CSF Chemistry Tube # 2 CSF Glucose 87 mg/dl CSF Total Protein 60.1 mg/dl Urine Color YELLOW Urine Appearance CLEAR Urine pH 7.0 Urine Specific [place] 1.016 Urine Protein TRACE Urine Glucose (UA) NEG Urine Ketones NEG Urine Occult Blood NEG Urine Nitrite POS Urine Bilirubin NEG Urine Urobilinogen NEG Urine Leukocyte Esterase NEG Urine WBC (Auto) 0 /hpf Urine RBC (Auto) 0-4 /hpf Urine Hyaline Casts (Auto) 1-5 /lpf Urine Epithelial Cells (Auto) 5-10 /lpf Urine Bacteria (Auto) NEG Urine Opiates Screen NEG Urine Methadone, Qualitative NEG Urine Barbiturates NEG Urine Phencyclidine (PCP) Level NEG Ur Amphetamine/Methamphetamine NEG MDMA (Ecstasy) Screen NEG Urine Benzodiazepines Screen NEG Urine Cocaine Metabolite NEG Urine Marijuana (THC) NEG Blood Gas Sample Site Art Line Bedside Blood Gas pH (LAB) 7.26 Bedside Blood Gas pCO2 (LAB) 29 mmHg Bedside Blood Gas pO2 (LAB) 51 mmHg Bedside Blood Gas HCO3 (LAB) 14 meq/L Bedside Blood Gas Total CO2 14 mEq/l Bedside Blood Gas Base Excess (LAB) -14.0 meq/L Bedside Blood Gas O2 Saturation 86.0 % Froy Test NA Oxygen Delivery Device Ventilator Bedside Oxygen Rate (breaths/min) 12 Blood Gas Minute Ventilation 6 Bedside FiO2 70 % Blood Gas Tidal Volume 500 Blood Gas PEEP 5 White Blood Count 4.90 K/uL Red Blood Count 2.43 M/uL Hemoglobin 9.0 g/dL Hematocrit 26.7 % Mean Corpuscular Volume 109.9 fL Mean Corpuscular Hemoglobin 37.0 pg Mean Corpuscular Hemoglobin Concent 33.7 g/dl Platelet Count 74 K/uL Mean Platelet Volume 9.9 fL RDW Standard Deviation 61.0 fL RDW Coefficient of Variation 15.4 % Nucleated RBC Absolute Count (auto) 0.14 K/uL Neutrophils % (Manual) 33.3 % Lymphocytes % (Manual) 64.0 % Monocytes % (Manual) 0.9 % Basophils % (Manual) 0.9 % Myelocytes % 0.9 % Nucleated Red Blood Cells % 2.9 % Neutrophils # (Manual) 1.63 K/uL Total Absolute Neutrophils 1.63 K/uL Lymphocytes # (Manual) 3.14 K/uL Total Absolute Lymphocytes 3.14 K/uL Monocytes # (Manual) 0.04 K/uL Basophils # (Manual) 0.04 K/uL Myelocytes # 0.04 K/uL Hypersegmented Polys 1+ Dohle Bodies 1+ Platelet Estimate DECREASED Large Platelets 1+ Tear Drop Cells 1+ Lactic Acid Level 4.9 mmol/L Ionized Calcium 1.06 mmol/l Amylase Level 52 U/L Lipase 60 U/L Test 03/31/17 15:09 03/31/17 15:13 03/31/17 16:08 03/31/17 16:11 Sodium Level 140 mmol/L Potassium Level 3.6 mmol/L Chloride Level 110 mmol/L Carbon Dioxide Level 14 mmol/L Anion Gap 16.0 mmol/L Blood Urea Nitrogen 23 mg/dl Creatinine 1.50 mg/dl Est Creatinine Clear Calc Drug Dose 36.8 ml/min Estimated GFR () 43.1 Estimated GFR (Non- 37.2 BUN/Creatinine Ratio 15.6 Random Glucose 301 mg/dl Lactic Acid Level 5.5 mmol/L Calcium Level 8.6 mg/dl Phosphorus Level 5.4 mg/dl Magnesium Level 1.7 mg/dl Total Bilirubin 0.6 mg/dl Aspartate Amino Transf (AST/SGOT) 295 U/L Alanine Aminotransferase (ALT/SGPT) 165 U/L Alkaline Phosphatase 253 U/L Total Creatine Kinase 1975 U/L Creatine Kinase MB 50.0 ng/ml Creatine Kinase MB Ratio 2.5 Troponin I 0.432 ng/ml Total Protein 4.4 gm/dl Albumin 2.0 gm/dl Globulin 2.4 gm/dl Albumin/Globulin Ratio 0.8 Beta-Hydroxybutyric Acid 0.75 mg/dL Thyroid Stimulating Hormone (TSH) 4.560 uIu/ml Blood Gas Sample Site Art Line Bedside Blood Gas pH (LAB) 7.14 Bedside Blood Gas pCO2 (LAB) 39 mmHg Bedside Blood Gas pO2 (LAB) 142 mmHg Bedside Blood Gas HCO3 (LAB) 13 meq/L Bedside Blood Gas Total CO2 14 mEq/l Bedside Blood Gas Base Excess (LAB) -16.0 meq/L Bedside Blood Gas O2 Saturation 98.0 % Froy Test NA Oxygen Delivery Device Ventilator Bedside Oxygen Rate (breaths/min) 20 Blood Gas Minute Ventilation 10 Bedside FiO2 100 % Blood Gas Tidal Volume 500 Blood Gas PEEP 12 Fibrinogen 352 mg/dl Bedside Glucose 314 mg/dl Diagnostic Results CT abdomen/pelvis without contrast 1. No acute intra-abdominal or intrapelvic abnormality identified. No evidence of solid organ injury. 2. Mild central depression involving the L3 vertebral body with associated Schmorl's node appears chronic, however is new from 05/14/2016. No associated retropulsion. 3. Suggested mild gallbladder wall thickening without cholelithiasis is a nonspecific finding and be correlated with ultrasound if clinically indicated. 4. Trace pericardial and pleural effusions with bibasilar consolidation. 5. Additional incidental findings as above. CT chest: 1. Limited study secondary to respiratory and patient motion. No acute fracture or pneumothorax identified. 2. Cardiomegaly with mild pulmonary edema and dependent consolidative opacities suggesting atelectasis, pneumonia or aspiration pneumonitis with trace pleural effusions. 3. Small pericardial effusion. 4. Right IJ hemodialysis catheter terminates in the right atrium. Endotracheal tube terminates above the level of the indira. CT brain: IMPRESSION: 1. No acute intracranial abnormality. Negative for hemorrhage or territorial ischemia. 2. Mild background chronic microvascular ischemic changes. 3. Small mastoid effusion with mild paranasal sinus disease. 2DEcho: * There is borderline asymmetric left ventricular hypertrophy. * Left ventricular systolic function is normal. * Grade I diastolic dysfunction, (abnormal relaxation pattern). * The left atrium is mildly dilated. * Right ventricular systolic pressure is elevated at 30-40mmHg. * Small right pleural effusion. Assessment & Plan 62 year old female s/p stem cell transplant, in profound shock likely secondary to overwhelming sepsis. 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 Daily sedation vacation if her hemodynamics improve CSF results reviewed. Essentially acellular, with mild protein elevation. This goes against bacterial meningitis, and I doubt she has viral meningitis as well CVS: Appears vasoplegic. Continue Levophed, vasopressin, epinephrine infusions. She responds almost instantly to infusion of calcium chloride. Will use it as needed. Echo reviewed, no evidence of Takotsubo cardiomyopathy. Mild troponin elevation, likely demand induced Went for CT angiogram to rule out a major vascular event such as dissection or mesenteric ischemia. I personally do not see such an abnormality, but will wait for the official report Pulmonary: Has bibasilar infiltrates, contributing to hypoxia. Oxygenation slowly improving. ABG at 1800: 7.095/36.9/133 Increase rate to 26 Decrease FiO2 to 70% Leave PEEP at 12 cm H2O. Sputum culture Bronchodilators Elevate head ID: Broad spectrum coverage. Daptomycin change to vancomycin for lung penetration Continue on Azactam Added Clindamycin for potential toxin producing organism Continue on IV fluconazole She has been off acyclovir. I serously doubt this represent overwhelming CMV infection. Will hold off acyclovir for now. Procalcitonin elevated, suggestive of bacterial infection. Source not identified so far. F/u blood cultures, urine culture, sputum culture, CSF culture Heme: She has been having thrombocytopenia previously per . Initially she had a level of 122, but now dropping. Continue to monitor, no need to transfuse Becoming more anemic, monitor every 6 hours. No evidence of bleeding, likely dilutional component. Will consider transfusing her WBC relatively normal. She should mount a more powerful response given her situation, so probably has some degree of marrow failure Discussed with her iron setter, Dr Vail, will hold tacrolimus for few days, given her renal insufficiency. Level sent GI: Given her sudden onset of symptoms and rapid decline, persistent lactic acidosis, we need to rule out mesenteric ischemia. F/u CT abdomen to rule out mesenteric ischemia Also check gallbladder ultrasound, has a mildly thickened GB wall. NPO for now. NGT inserted Has h/o hyperbilirubinemia, but normal now H/o autoimmune hepatitis, followed by Dr Ellis. Initial AST/ALT were normal, now abnormal secondary to shock liver Endo: Start stress dose steroids given senior living steroid use Convert levothyroxine from 100 mcg po to 50 mcg iv Start insulin drip now Renal/metabolic: In renal failure, producing urine. Monitor electrolytes, supplement as needed Keep Rajan Adjust medication based on renal function and levels Significant metabolic acidosis, gap and non-gap, pH<7.1. At this point will initiate a sodium bicarbonate infusion DVT prophylaxis: No anticoagulation secondary to thrombocytopenia. SCDs Critical care time spent with the patient, family, consultants, reviewing the chart greater than 120 minutes Prognosis is guarded, this condition carries a high mortality rate. I informed the multiple times about the results so far, her condition, evolution and prognosis Miguelangel Avalos MD
--- NOTE | 2017-03-31 19:36 | DIAGNOSTIC IMAGING REPORT ---
CHEST COMBO ANGIOGRAPHY HISTORY: 62 years-old Female presents with acute chest pain with concern for possible dissection. COMPARISON: CT chest 03/31/2017 TECHNIQUE: CT angiogram of the chest was obtained both with and without the use of 150 mL Optiray 320. 3-D coronal and sagittal MIPS were obtained from axial data set and cemented for review. A dose lowering technique was used consistent with the principals of FABIANA. FINDINGS: CTA: Noncontrast scan demonstrates no evidence of intramural hematoma. Heart is mildly enlarged with small pericardial effusion. Normal three-vessel regards is present with grade vessels patent. There is no aortic dissection or aneurysm. There is mild degree of mostly atheromatous plaquing of the aorta. The pulmonary arterial tree is opacified to the distal segmental branches and demonstrates no focal filling defect to suggest pulmonary thromboembolic disease. CT CHEST: No dominant thyroid nodule identified. Hemodialysis catheter is noted terminating within the right atrium. There is an endotracheal tube within the trachea which terminates just proximal to the indira. Multifocal intralobular septal thickening is noted in conjunction with groundglass opacities and congestion of the pulmonary vasculature. Bibasilar consolidation involves the lower lobes, left greater than right. Uniform enhancement of the majority of this parenchyma suggests atelectasis with areas of nonenhancement as well, suspicious for pneumonia. Small bilateral pleural effusions are present. Subpleural cystic changes involve the lung apices. 4 mm nodular opacity abutting the minor fissure is again seen suggesting perifacial lymph node which is unchanged. The previously noted 2 mm noncalcified pulmonary nodule the right upper lobe is not clearly identified. Central airways are patent. There is moderate to extensive circumferential wall thickening of the gallbladder with focal area of fundal enhancement, 9 mm suggesting fundal adenomyomatosis. Enteric tube courses into the gastric lumen outside the [id number]. Mild increased edema is noted within the mid mesentery, further discussed on CT of the abdomen. The bones appear intact. IMPRESSION: 1. No evidence of aortic dissection or aneurysm. No evidence of pulmonary thromboembolic disease. 2. Cardiomegaly with mild pulmonary edema, small bilateral pleural effusions and trace pericardial effusion with left greater than right dependent bibasilar consolidation suggesting admixture of atelectasis and airspace disease. 3. Endotracheal and enteric tubes appear satisfactory as imaged. 4. Gallbladder wall thickening is noted with suggested fundal adenomyomatosis. Correlation with scheduled gallbladder ultrasound recommended. The above report was generated using voice recognition software. It may contain grammatical, syntax or spelling errors. Electronically signed by: Sadi Magaña M.D. 03/31/2017 7:35 PM Dictated Date/Time: 03/31/2017 7:24 PM
[2017-03-31] MEDS: ALBUT/IPRATROP 3MG/0.5MG NEB 3 ML VIAL INH SCH (19:40)
[2017-03-31] MEDS: SODIUM BICARBONATE 8.4% INJ 150 MEQ in DEXTROSE 5% 1000ML 1,000 ML IV SCH (19:40)
[2017-03-31 19:47] LABS: BETA-HYDROXYBUTYRATE 0.7 mg/dL (0.2-2.81)
--- NOTE | 2017-03-31 19:50 | DIAGNOSTIC IMAGING REPORT ---
ANGIO ABD/PELVIS COMBO CLINICAL HISTORY: 62 years-old Female with acute abdominal pain. Concern for possible dissection. COMPARISON STUDY: CT abdomen and pelvis of same day. TECHNIQUE: Following the IV administration of 115 cc of Optiray 320, CT angiogram of the abdomen and pelvis was performed from the lung bases the proximal femora. Images are reviewed in the axial, sagittal, and coronal planes. 3-D MIPS images are created and assessed. IV contrast was administered without complication. A dose lowering technique was utilized adhering to the principles of ALARA. FINDINGS: CTA: No intramural hematoma is seen on the noncontrast scan. No aortic dissection or aneurysm identified. There is mild atheromatous plaquing of the abdominal aorta and branch vasculature. Soft tissue density within the vessel wall at the superior mesenteric origin is noted with markedly diminutive size of the SMA origin. No focal filling defect of the SMA is seen to suggest thrombus (nicely seen on axial image 287 of series 7 and image 57 of series 705). Similar less extensive changes are seen within the renal arteries bilaterally. The celiac trunk and its proximal branches appear patent. Inferior mesenteric artery appears patent. The IVC appears patent, however is not well opacified. CT ABDOMEN AND PELVIS: Unchanged findings of the lung bases compared to CTA of the chest. Trace pericardial effusion. The liver and spleen are unremarkable. There is mild peripancreatic edema with edema also noted within the mid mesentery which appears to have progressed from prior study. There is moderate to marked circumferential wall thickening of the gallbladder with enhancing 9 x 8 mm focus of the fundal gallbladder suggesting fundal adenomyomatosis. Adrenal glands are unremarkable. Mild nonspecific perinephric edema is present bilaterally. No renal calculi or hydronephrosis. Multiple calcified fibroids of the uterus are again seen measuring up to 3.3 cm. Urinary bladder is collapsed with Rajan catheter in place. No bulky adenopathy. Enteric tube terminates within the mid to distal gastric lumen. There is mild wall thickening of the gastric pylorus and proximal duodenum with mild surrounding stranding. There is no bowel obstruction. Catheter is noted within the rectum. The majority of the colon is collapsed. No evidence of acute appendicitis. There is mild diffuse body wall edema. Bones appear intact. IMPRESSION: 1. No aortic dissection or aneurysm. 2. Mild atheromatous plaquing of the aorta and iliac vasculature. There is soft tissue prominence involving the roth of the superior mesenteric artery with decreased luminal caliber involving the proximal and distal branches diffusely, notably at its origin, suspicious for underlying vasculitis. This could be correlated with laboratory values. No evidence of portal venous gas or pneumatosis. 3. Circumferential wall thickening of the gastric pylorus and proximal duodenum with increasing amount of edema within the mid mesentery and lesser sac is noted. These findings are nonspecific and may reflect infectious or inflammatory etiology. 4. Moderate to marked wall thickening of the gallbladder with 9 x 8 mm enhancing focus of the gallbladder fundus suggests fundal adenomyomatosis. Correlate with right upper quadrant ultrasound of same day. 5. Additional incidental findings as above. The above report was generated using voice recognition software. It may contain grammatical, syntax or spelling errors. Electronically signed by: Sadi Magaña M.D. 03/31/2017 7:48 PM Dictated Date/Time: 03/31/2017 7:35 PM
[2017-03-31 19:55] LABS: POTASSIUM 4.7 mmol/L (3.5-5.1)
[2017-03-31 19:56] LABS: ANISOCYTOSIS PRESENT; BASO ABS # 0.12 K/uL (0-0.2); BASOPHIL % 1.8 %; COMPLETE YES; DOHLE BODIES 1+; ECHINOCYTES 1+; HOWELL-JOLLY BODIES OCCASIONAL; HYPERSEGMENTED POLYS 1+; LYMPH ABS # 1.38 K/uL (1.2-3.4); LYMPHOCYTE % 21.1 %; MEAN PLATELET VOLUME 10.9 fL (7.4-10.4); META ABS # 0.35 K/uL (0-0); METAMYELOCYTE % 5.3 %; NEUTROPHILS % 66.5 %; PHOSPHORUS 6.8 mg/dl (2.5-4.9); PLATELET COUNT 56 K/uL (130-400); POLYCHROMASIA 1+; TEAR DROP CELLS OCCASIONAL
--- NOTE | 2017-03-31 19:56 | History and Physical ---
History & Physical Date & Time of Service: Mar 31, 2017 at 19:42 Chief Complaint: Hypotension,Unresponsiveness Primary Care Physician: Jaylin Corral D.O. History of Present Illness Source: spouse, clinic records 62 year old female with history of AML s/p Stem Cell Transplant, Takatsubo Cardiomyopathy, Hypothyroidism presenting with altered mental status. History obtained from patient's spouse Kavin as patient was intubated. Patient was apparently feeling fine, even went out for dinner for the first time last night. This morning, patient's found her on the floor barely responsive, confused with vomitus and incontinent of urine/stools. He then called 911. Patient received in the ER hypotensive, unresponsive and was thus intubated, started on Levophed. On exam, she is occasionally opening eyes to verbal stimuli and moving her extremities equally. Per patient's , no fever/chills, headache, chest pain, dyspnea, abdominal pain, changes with urination/BM. Past Medical/Surgical History Medical Problems: (1) AML (acute myelogenous leukemia) Status: Chronic (2) Hypothyroidism Status: Chronic (3) Pneumonia Status: Resolved (4) Takotsubo cardiomyopathy Status: Chronic Surgical Problems: (1) H/O colonoscopy Permanent Comment: 06/04/2014 diverticulosis, repeat 5 yrs Status: Chronic (2) S/P anal fissurectomy Status: Chronic Family History FH: alpha 1 antitrypsin deficiency SISTER FH: cancer FATHER MOTHER FH: diabetes mellitus FH: gallbladder disease FH: heart disease FATHER FH: hypertension FH: lung disease MOTHER Hemochromatosis SISTER Stroke MOTHER Social History Smoking Status: Never Smoker Drug Use: none Marital Status: Housing status: lives with family Occupational Status: employed Allergies Coded Allergies: Penicillins (Verified Allergy, Unknown, ., 03/31/17) Sulfa Antibiotics (Verified Allergy, Unknown, ., 03/31/17) Home Medications Scheduled Acyclovir (Acyclovir), 400 MG PO BID Budesonide (Entocort Ec), 3 MG PO TID Dexamethasone (Dexamethasone), 2 MG PO QAM Fluconazole (Diflucan), 100 TAB PO DAILY Insulin Glargine (Lantus Solostar), 2 UNITS SC DAILY Levofloxacin (Levaquin), 500 MG PO DAILY Levothyroxine Sodium (Synthroid), 100 MCG PO DAILY Magnesium Oxide (Mag-Ox), 400 MG PO BID Metoprolol Succinate (Toprol Xl), 12.5 MG PO DAILY Omeprazole (Prilosec), 20 MG PO BID Potassium Chloride (Micro-K Ext Rel), 10 MEQ PO DAILY Ursodiol (Ursodiol), 300 MG PO TID [Magnesium], 250 MG IV DAILY Scheduled PRN Acetaminophen (Tylenol), 650 MG PO Q4H PRN for Mild Pain Dextromethorphan-Guaifenesin (Robitussin-Dm Syrup), 5 ML PO QID PRN for Cough Diphenoxylate W/ Atropine (Lomotil), 2.5 MG PO Q6H PRN for Diarrhea Lorazepam (Ativan), 0.5 MG PO Q8 PRN for Anxiety Ondasetron Odt (Zofran Odt), 8 MG SL Q6H PRN for Nausea or Vomiting Oxycodone Ir (Roxicodone Ir), 5 MG PO Q4H PRN for Moderate to Severe Pain Review of Systems as above full ROS cannot be obtained as patient is intubated Physical Exam Vital Signs Date Time Temp Pulse Resp B/P (MAP) Pulse Ox O2 Delivery O2 Flow Rate FiO2 03/31/17 16:45 36.8 106 95/53 (67) 100 Mechanical Ventilator 80 97/50 (66) 03/31/17 16:42 100 Mechanical Ventilator 03/31/17 14:44 100 03/31/17 14:31 35.4 105 22 82/36 (51) 100 03/31/17 14:30 35.4 103 22 81/36 (51) 03/31/17 14:19 35.3 94 20 63/20 (34) 03/31/17 14:16 35.3 94 24 56/21 (33) 71 03/31/17 14:15 35.3 93 22 57/20 (32) 71 03/31/17 14:01 35.0 101 23 81/37 (52) 93 03/31/17 14:00 35.0 101 23 82/39 (53) 95 03/31/17 13:40 36.9 101 22 83/39 92 Mechanical Ventilator 03/31/17 12:46 34.5 89 15 87/43 (58) 96 03/31/17 12:45 34.5 89 20 83/40 (54) 95 8/27/17 12:31 34.5 86 18 75/34 (48) 100 03/31/17 12:30 34.5 86 21 73/34 (47) 100 03/31/17 12:16 34.6 85 18 68/1 (23) 87 03/31/17 12:15 34.5 86 21 58/20 (33) 03/31/17 12:01 94 25 89/42 (58) 95 03/31/17 12:00 93 9 95/47 (63) 03/31/17 10:56 70 03/31/17 10:30 93 22 54/39 93 Ambu-Bag 15.0 03/31/17 10:20 91 20 62/30 100 Mechanical Ventilator 100 03/31/17 10:10 95 20 77/42 100 Mechanical Ventilator 100 03/31/17 10:00 96 24 52/32 96 Mechanical Ventilator 100 03/31/17 09:40 99 22 60/34 95 Mechanical Ventilator 100 03/31/17 09:30 100 18 61/38 99 Mechanical Ventilator 100 03/31/17 09:20 94 20 59/41 94 Mechanical Ventilator 100 03/31/17 09:10 100 03/31/17 09:04 95 52/31 92 Mechanical Ventilator 03/31/17 09:01 103 21 93 Mechanical Ventilator 03/31/17 08:53 109 03/31/17 08:34 36.9 110 22 37/29 91 Non-Rebreather 15.0 General Appearance: WD/WN, no apparent distress, + pertinent finding (intubated ) Head: normocephalic, atraumatic Eyes: normal inspection, PERRL, sclerae normal ENT: normal ENT inspection Neck: no adenopathy, thyroid normal, no JVD Respiratory/Chest: lungs clear, normal breath sounds, no respiratory distress, no accessory muscle use Cardiovascular: regular rate, rhythm, no edema Abdomen/GI: normal bowel sounds, non tender, soft Extremities/Musculoskelatal: + pertinent finding ((+) hematoma, skin tears on extremities) Neurologic/Psych: + pertinent finding (full neuro exam cannot be obtained as patient inutabated, pupils 3mm size, equal, moves extremities equally) Skin: normal color, warm/dry, + pertinent finding (as above) Lymphatic: no adenopathy Diagnostics Laboratory Results Results Past 24 Hours Test 03/31/17 00:00 03/31/17 08:45 03/31/17 08:47 03/31/17 08:50 Range/Units Stool Occult Blood POSITIVE NEGATIVE White Blood Count 10.59 4.8-10.8 K/uL Red Blood Count 3.19 4.2-5.4 M/uL Hemoglobin 11.6 12.0-16.0 g/dL Hematocrit 36.4 37-47 % Mean Corpuscular Volume 114.1 80-100 fL Mean Corpuscular Hemoglobin 36.4 25-34 pg Mean Corpuscular Hemoglobin Concent 31.9 32-36 g/dl Platelet Count 122 130-400 K/uL Mean Platelet Volume 10.6 7.4-10.4 fL RDW Standard Deviation 65.0 36.4-46.3 fL RDW Coefficient of Variation 15.6 11.5-14.5 % Nucleated RBC Absolute Count (auto) 0.12 0-0 K/uL Neutrophils % (Manual) 32.2 % Lymphocytes % (Manual) 62.6 % Monocytes % (Manual) 1.7 % Metamyelocytes % 3.5 % Nucleated Red Blood Cells % 1.1 % Neutrophils # (Manual) 3.41 1.4-6.5 K/uL Total Absolute Neutrophils 3.41 1.4-6.5 K/uL Lymphocytes # (Manual) 6.63 1.2-3.4 K/uL Total Absolute Lymphocytes 6.63 1.2-3.4 K/uL Monocytes # (Manual) 0.18 0.11-0.59 K/uL Metamyelocytes # 0.37 0-0 K/uL Polychromasia 1+ Macrocytosis PRESENT Prothrombin Time 10.6 9.0-12.0 SECONDS Prothromb Time International Ratio 1.0 0.9-1.1 Activated Partial Thromboplast Time 25.0 21.0-31.0 SECONDS Partial Thromboplastin Ratio 1.0 Sodium Level 140 136-145 mmol/L Potassium Level 3.2 3.5-5.1 mmol/L Chloride Level 104 98-107 mmol/L Carbon Dioxide Level 19 21-32 mmol/L Anion Gap 17.0 3-11 mmol/L Blood Urea Nitrogen 22 7-18 mg/dl Creatinine 1.90 0.60-1.20 mg/dl Est Creatinine Clear Calc Drug Dose 29.1 ml/min Estimated GFR () 32.4 Estimated GFR (Non- 28.0 BUN/Creatinine Ratio 11.7 10-20 Random Glucose 219 70-99 mg/dl Calcium Level 9.3 8.5-10.1 mg/dl Magnesium Level 2.5 1.8-2.4 mg/dl Total Bilirubin 0.5 0.2-1 mg/dl Direct Bilirubin 0.3 0-0.2 mg/dl Aspartate Amino Transf (AST/SGOT) 83 15-37 U/L Alanine Aminotransferase (ALT/SGPT) 139 12-78 U/L Alkaline Phosphatase 357 45-117 U/L Total Creatine Kinase 186 26-192 U/L Creatine Kinase MB 3.9 0.5-3.6 ng/ml Creatine Kinase MB Ratio 2.1 0-3.0 Total Protein 6.0 6.4-8.2 gm/dl Albumin 2.9 3.4-5.0 gm/dl Procalcitonin 32.25 0-0.5 ng/ml Cortisol AM Sample 7.64 4.30-22.40 mcg/dl Bedside Glucose 214 70-90 mg/dl Bedside Prothrombin Time INR 0.9 0.9-1.1 Test 03/31/17 08:51 03/31/17 08:55 03/31/17 08:56 03/31/17 09:41 Range/Units Bedside Hemoglobin 11.2 6.8 12.0-16.0 g/dl Bedside Hematocrit 33 20 37-47 % Bedside Sodium 139 141 135-144 mEq/L Bedside Potassium 3.2 2.6 3.3-5.0 mEq/L Bedside Chloride 102 101-112 mEq/L Bedside Total CO2 21 24-31 mEq/l Anion Gap 19.0 16-25 mmol/L Bedside Blood Urea Nitrogen 22 7-18 mg/dl Bedside Creatinine 1.6 0.6-1.3 mg/dl Bedside Glucose (other) 220 70-99 mg/dl Bedside Ionized Calcium (Alli) 1.34 1.12-1.32 mmol/l Bedside Lactic Acid Venous 8.96 0.90-1.70 mmol/L Bedside Troponin I 0.180 0-0.045 ng/ml Bedside Blood Gas pH (LAB) 7.24 7.35-7.45 Bedside Blood Gas pCO2 (LAB) 37 35-46 mmHg Bedside Blood Gas pO2 (LAB) 229 80-95 mmHg Bedside Blood Gas HCO3 (LAB) 16 19-24 meq/L Bedside Blood Gas Total CO2 17 24-31 mEq/l Bedside Blood Gas Base Excess (LAB) -12.0 -9-1.8 meq/L Bedside Blood Gas O2 Saturation 100.0 90-95 % Test 03/31/17 09:50 03/31/17 11:40 03/31/17 12:24 03/31/17 12:26 Range/Units CSF Color COLORLESS CSF Appearance CLEAR CSF WBC 0 0-5 /uL CSF RBC 0 0 /uL CSF Xanthrochromic NO XANTHOCHROMIA CSF Cell Count Tube # 4 CSF Chemistry Tube # 2 CSF Glucose 87 40-70 mg/dl CSF Total Protein 60.1 15.0-45.0 mg/dl Urine Color YELLOW Urine Appearance CLEAR CLEAR Urine pH 7.0 4.5-7.5 Urine Specific [place] 1.016 1.000-1.030 Urine Protein TRACE NEG Urine Glucose (UA) NEG NEG Urine Ketones NEG NEG Urine Occult Blood NEG NEG Urine Nitrite POS NEG Urine Bilirubin NEG NEG Urine Urobilinogen NEG NEG Urine Leukocyte Esterase NEG NEG Urine WBC (Auto) 0 0-5 /hpf Urine RBC (Auto) 0-4 0-4 /hpf Urine Hyaline Casts (Auto) 1-5 0-5 /lpf Urine Epithelial Cells (Auto) 5-10 0-5 /lpf Urine Bacteria (Auto) NEG NEG Urine Opiates Screen NEG NEG Urine Methadone, Qualitative NEG NEG Urine Barbiturates NEG NEG Urine Phencyclidine (PCP) Level NEG NEG Ur Amphetamine/Methamphetamine NEG NEG MDMA (Ecstasy) Screen NEG NEG Urine Benzodiazepines Screen NEG NEG Urine Cocaine Metabolite NEG NEG Urine Marijuana (THC) NEG NEG Blood Gas Sample Site Art Line Bedside Blood Gas pH (LAB) 7.26 7.35-7.45 Bedside Blood Gas pCO2 (LAB) 29 35-46 mmHg Bedside Blood Gas pO2 (LAB) 51 80-95 mmHg Bedside Blood Gas HCO3 (LAB) 14 19-24 meq/L Bedside Blood Gas Total CO2 14 24-31 mEq/l Bedside Blood Gas Base Excess (LAB) -14.0 -9-1.8 meq/L Bedside Blood Gas O2 Saturation 86.0 90-95 % Froy Test NA Oxygen Delivery Device Ventilator Bedside Oxygen Rate (breaths/min) 12 Blood Gas Minute Ventilation 6 Bedside FiO2 70 % Blood Gas Tidal Volume 500 Blood Gas PEEP 5 White Blood Count 4.90 4.8-10.8 K/uL Red Blood Count 2.43 4.2-5.4 M/uL Hemoglobin 9.0 12.0-16.0 g/dL Hematocrit 26.7 37-47 % Mean Corpuscular Volume 109.9 80-100 fL Mean Corpuscular Hemoglobin 37.0 25-34 pg Mean Corpuscular Hemoglobin Concent 33.7 32-36 g/dl Platelet Count 74 130-400 K/uL Mean Platelet Volume 9.9 7.4-10.4 fL RDW Standard Deviation 61.0 36.4-46.3 fL RDW Coefficient of Variation 15.4 11.5-14.5 % Nucleated RBC Absolute Count (auto) 0.14 0-0 K/uL Neutrophils % (Manual) 33.3 % Lymphocytes % (Manual) 64.0 % Monocytes % (Manual) 0.9 % Basophils % (Manual) 0.9 % Myelocytes % 0.9 % Nucleated Red Blood Cells % 2.9 % Neutrophils # (Manual) 1.63 1.4-6.5 K/uL Total Absolute Neutrophils 1.63 1.4-6.5 K/uL Lymphocytes # (Manual) 3.14 1.2-3.4 K/uL Total Absolute Lymphocytes 3.14 1.2-3.4 K/uL Monocytes # (Manual) 0.04 0.11-0.59 K/uL Basophils # (Manual) 0.04 0-0.2 K/uL Myelocytes # 0.04 0-0 K/uL Hypersegmented Polys 1+ Dohle Bodies 1+ Platelet Estimate DECREASED Large Platelets 1+ Tear Drop Cells 1+ Lactic Acid Level 4.9 0.4-2.0 mmol/L Ionized Calcium 1.06 1.12-1.32 mmol/l Amylase Level 52 25-115 U/L Lipase 60 73-393 U/L Test 03/31/17 15:09 03/31/17 15:13 03/31/17 16:08 03/31/17 16:11 Range/Units Sodium Level 140 136-145 mmol/L Potassium Level 3.6 3.5-5.1 mmol/L Chloride Level 110 98-107 mmol/L Carbon Dioxide Level 14 21-32 mmol/L Anion Gap 16.0 3-11 mmol/L Blood Urea Nitrogen 23 7-18 mg/dl Creatinine 1.50 0.60-1.20 mg/dl Est Creatinine Clear Calc Drug Dose 36.8 ml/min Estimated GFR () 43.1 Estimated GFR (Non- 37.2 BUN/Creatinine Ratio 15.6 10-20 Random Glucose 301 70-99 mg/dl Lactic Acid Level 5.5 0.4-2.0 mmol/L Calcium Level 8.6 8.5-10.1 mg/dl Phosphorus Level 5.4 2.5-4.9 mg/dl Magnesium Level 1.7 1.8-2.4 mg/dl Total Bilirubin 0.6 0.2-1 mg/dl Aspartate Amino Transf (AST/SGOT) 295 15-37 U/L Alanine Aminotransferase (ALT/SGPT) 165 12-78 U/L Alkaline Phosphatase 253 45-117 U/L Total Creatine Kinase 1975 26-192 U/L Creatine Kinase MB 50.0 0.5-3.6 ng/ml Creatine Kinase MB Ratio 2.5 0-3.0 Troponin I 0.432 0-0.045 ng/ml Total Protein 4.4 6.4-8.2 gm/dl Albumin 2.0 3.4-5.0 gm/dl Globulin 2.4 2.5-4.0 gm/dl Albumin/Globulin Ratio 0.8 0.9-2 Beta-Hydroxybutyric Acid 0.75 0.2-2.81 mg/dL Thyroid Stimulating Hormone (TSH) 4.560 0.300-4.500 uIu/ml Blood Gas Sample Site Art Line Bedside Blood Gas pH (LAB) 7.14 7.35-7.45 Bedside Blood Gas pCO2 (LAB) 39 35-46 mmHg Bedside Blood Gas pO2 (LAB) 142 80-95 mmHg Bedside Blood Gas HCO3 (LAB) 13 19-24 meq/L Bedside Blood Gas Total CO2 14 24-31 mEq/l Bedside Blood Gas Base Excess (LAB) -16.0 -9-1.8 meq/L Bedside Blood Gas O2 Saturation 98.0 90-95 % Froy Test NA Oxygen Delivery Device Ventilator Bedside Oxygen Rate (breaths/min) 20 Blood Gas Minute Ventilation 10 Bedside FiO2 100 % Blood Gas Tidal Volume 500 Blood Gas PEEP 12 Fibrinogen 352 184-400 mg/dl Bedside Glucose 314 70-90 mg/dl Test 03/31/17 18:35 03/31/17 18:59 Range/Units White Blood Count 6.52 4.8-10.8 K/uL Red Blood Count 2.32 4.2-5.4 M/uL Hemoglobin 8.8 12.0-16.0 g/dL Hematocrit 25.7 37-47 % Mean Corpuscular Volume 110.8 80-100 fL Mean Corpuscular Hemoglobin 37.9 25-34 pg Mean Corpuscular Hemoglobin Concent 34.2 32-36 g/dl RDW Standard Deviation 61.2 36.4-46.3 fL RDW Coefficient of Variation 15.4 11.5-14.5 % Nucleated RBC Absolute Count (auto) 0.36 0-0 K/uL Nucleated Red Blood Cells % 5.6 % Prothrombin Time 12.8 9.0-12.0 SECONDS Prothromb Time International Ratio 1.2 0.9-1.1 Activated Partial Thromboplast Time 40.4 21.0-31.0 SECONDS Partial Thromboplastin Ratio 1.6 Fibrinogen 315 184-400 mg/dl Sodium Level 133 136-145 mmol/L Chloride Level 107 98-107 mmol/L Carbon Dioxide Level 13 21-32 mmol/L Anion Gap 13.0 3-11 mmol/L Blood Urea Nitrogen 24 7-18 mg/dl Creatinine 1.50 0.60-1.20 mg/dl Est Creatinine Clear Calc Drug Dose 36.8 ml/min Estimated GFR () 43.1 Estimated GFR (Non- 37.2 BUN/Creatinine Ratio 16.0 10-20 Random Glucose 382 70-99 mg/dl Lactic Acid Level 4.4 0.4-2.0 mmol/L Calcium Level 9.0 8.5-10.1 mg/dl Ionized Calcium 1.41 1.12-1.32 mmol/l Magnesium Level 2.2 1.8-2.4 mg/dl Total Bilirubin 0.9 0.2-1 mg/dl Aspartate Amino Transf (AST/SGOT) 336 15-37 U/L Alanine Aminotransferase (ALT/SGPT) 181 12-78 U/L Alkaline Phosphatase 188 45-117 U/L Total Protein 3.6 6.4-8.2 gm/dl Albumin 1.6 3.4-5.0 gm/dl Globulin 2.0 2.5-4.0 gm/dl Albumin/Globulin Ratio 0.8 0.9-2 Blood Gas Sample Site Art Line Bedside Blood Gas pH (LAB) 7.10 7.35-7.45 Bedside Blood Gas pCO2 (LAB) 36 35-46 mmHg Bedside Blood Gas pO2 (LAB) 131 80-95 mmHg Bedside Blood Gas HCO3 (LAB) 11 19-24 meq/L Bedside Blood Gas Total CO2 12 24-31 mEq/l Bedside Blood Gas Base Excess (LAB) -18.0 -9-1.8 meq/L Bedside Blood Gas O2 Saturation 98.0 90-95 % Froy Test NA Oxygen Delivery Device Ventilator Bedside Oxygen Rate (breaths/min) 20 Blood Gas Minute Ventilation 10 Bedside FiO2 80 % Blood Gas Tidal Volume 500 Blood Gas PEEP 12 Microbiology Results 03/31/17 Blood Culture, Received Pending 03/31/17 Blood Culture, Received Pending 03/31/17 Fungal Culture, Received Pending 03/31/17 Gram Stain - Final, Resulted 03/31/17 CSF Culture, Resulted Pending 03/31/17 MRSA DNA Surveillance Screen - Final, Complete Specimen Negative for MRSA by DNA Probe 03/31/17 Urine Culture, Received Pending Diagnostic Radiology CT head 1. No acute intracranial abnormality. Negative for hemorrhage or territorial ischemia. 2. Mild background chronic microvascular ischemic changes. 3. Small mastoid effusion with mild paranasal sinus disease. EKG HR 95, sinus rhythm Impression Assessment and Plan 62 year old female with history of AML s/p Stem Cell Transplant, Takatsubo Cardiomyopathy, Hypothyroidism presenting with altered mental status. HYPOTENSION, ACUTE RESPIRATORY FAILURE POSSIBLY FROM: SEPSIS - ff up cultures - empiric Dapto + Aztreonam IV fluids further management , including Mechanical Ventilation, per Dr. Avalos case discussed at length with Dr. Avalos HYPOVOLEMIA COMPONENT - IV fluids ADRENAL INSUFFICIENCY - IV hydrocortisone 50mg q8 ordered R/O CARDIOGENIC ETIOLOGY - ff up cardiac markers - ff up echo R/O PE - will need CT angio HYPOKALEMIA - IV K ordered PROLONGED QT - monitor - no medications prolonging QT ACUTE RENAL FAILURE - IV fluids - likely prerenal, from sepsis, from hypotension METABOLIC ACIDOSIS - lactic acid elevated ff up IV fluids AML, S/P STEM CELL TRANSPLANT - on Tacrolimus will need to hold for ongoing sepsis Full code per discussion with patient's SCDs for now Dispo pending Advanced Directives Existing Living Will: No Existing Power of Straightening Press Operator Helper: No VTE Prophylaxis VTE Risk Assessment Done? Y/N: Yes Risk Level: Moderate
[2017-03-31] MEDS ORDERED: PANTOprazole INJ 40 MG in SYRINGE 0 ML IV SCH (21:00)
[2017-03-31 21:03] LABS: ISTAT ARTERIAL BLOOD GAS HCO3 11 meq/L (19-24); ISTAT ARTERIAL BLOOD GAS PCO2 30 mmHg (35-46); ISTAT ARTERIAL BLOOD GAS PO2 108 mmHg (80-95); ISTAT ARTERIAL BLOOD GAS pH 7.16 (7.35-7.45); ISTAT CARBON DIOXIDE 12 mEq/l (24-31); ISTAT DELIVERY SYSTEM Ventilator; ISTAT FIO2 50 %; ISTAT PEEP 12; ISTAT RATE 26; ISTAT SITE Art Line; VE 13.4; Vt 500
[2017-03-31] MEDS ORDERED: ETOMIDATE 2 MG/ML 20 ML VIAL IV ONE (21:07)
[2017-03-31] MEDS ORDERED: SUCCINYLCHOLINE CHLORIDE 20 MG/ML 10 ML VIAL IV ONE (21:07)
[2017-03-31 21:36] LABS: BUN/CREATININE RATIO 16.7 (10-20); CREATININE 1.5 mg/dl (0.60-1.20); MAGNESIUM 1.9 mg/dl (1.8-2.4); PHOSPHORUS 6.4 mg/dl (2.5-4.9); POTASSIUM 4.6 mmol/L (3.5-5.1)
[2017-03-31 21:41] LABS: ALB/GLOB RATIO 1.1 (0.9-2)
[2017-03-31 21:49] LABS: BETA-HYDROXYBUTYRATE 0.78 mg/dL (0.2-2.81); CKMB/CK RATIO 2.6 (0-3.0)
--- NOTE | 2017-03-31 22:27 | DIAGNOSTIC IMAGING REPORT ---
BILATERAL LOWER EXTREMITY VENOUS DOPPLER HISTORY: Acute bilateral lower extremity swelling COMPARISON STUDY: None. FINDINGS: There is normal compressibility, flow, and augmentation within the bilateral lower extremity deep venous systems. Nonspecific findings of thickened roth are seen within the common femoral, femoral and greater saphenous veins. There is mildly limited evaluation of the calf veins secondary to soft tissue edema. IMPRESSION: No sonographic evidence of deep venous thrombosis within the right or left lower extremity. Electronically signed by: Sadi Magaña M.D. 03/31/2017 10:26 PM Dictated Date/Time: 03/31/2017 10:24 PM
--- NOTE | 2017-03-31 22:37 | DIAGNOSTIC IMAGING REPORT ---
GALLBLADDER-ABD LIMITED HISTORY: 62 years-old Female acute abdominal pain with concern for acute cholecystitis. COMPARISON: CT angiography of the abdomen 03/31/2017, Abdominal ultrasound 12/30/2015 TECHNIQUE: Multiple real-time sonographic images of the abdominal right upper quadrant were obtained assessing grayscale appearance and color flow. FINDINGS: The imaged pancreas is unremarkable with distal body and tail obscured by bowel gas. No focal hepatic mass lesions identified. No intrahepatic biliary ductal dilation. There is marked wall thickening of the gallbladder measuring up to 1.2 cm with edema noted centrally. No increased vascularity is seen within the gallbladder wall to suggest neoplasm. No ringdown artifact is identified to correlate with the area fundal enhancement on comparison CT. No associated shadowing cholelithiasis. There is trace pericholecystic fluid. The common bile duct is normal in caliber, 0.5 cm. Unable to assess for sonographic Dasilva's sign secondary to patient condition. The right kidney demonstrates a mild amount of perinephric edema, unchanged from comparison CT. Trace right pleural effusion is incidentally noted. IMPRESSION: 1. Marked circumferential edematous thickening of the gallbladder wall is redemonstrated measuring up to 1.2 cm without shadowing cholelithiasis. Painter Airbrush was unable to assess for sonographic Dasilva's sign secondary to patient's intubated status. Differential considerations would favor sequela of third spacing as noted on other studies of same day. Alternatively, acalculus acute cholecystitis among other etiologies may have a similar sonographic appearance. This can be correlated with follow-up nuclear medicine hepatobiliary scan. 2. No biliary ductal dilation. 3. Trace right pleural effusion noted. The above report was generated using voice recognition software. It may contain grammatical, syntax or spelling errors. Electronically signed by: Sadi Magaña M.D. 03/31/2017 10:36 PM Dictated Date/Time: 03/31/2017 10:27 PM
[2017-03-31] MEDS: ARTIFICIAL TEARS OP OINT 3.5 GM TUBE OPB SCH (22:57)
[2017-04-01] VITALS (27 sets, daily range): BP systolic 92–275; BP diastolic 56–275; PULSE 78–103; TEMP 36–37; O2SAT 83–100
[2017-04-01 00:25] LABS: HEMATOCRIT 21.7 % (37-47); MEAN CELL VOLUME 109.6 fL (80-100); MEAN CORPUSCULAR HEMOGLOBIN 36.4 pg (25-34); MEAN CORPUSCULAR HGB CONC 33.2 g/dl (32-36); RED BLOOD COUNT 1.98 M/uL (4.2-5.4); WHITE BLOOD COUNT 3.52 K/uL (4.8-10.8)
[2017-04-01 00:35] LABS: MEAN PLATELET VOLUME 11.8 fL (7.4-10.4); PLATELET COUNT 35 K/uL (130-400)
[2017-04-01 00:51] LABS: ISTAT ARTERIAL BLOOD GAS HCO3 12 meq/L (19-24); ISTAT ARTERIAL BLOOD GAS PCO2 28 mmHg (35-46); ISTAT ARTERIAL BLOOD GAS PO2 100 mmHg (80-95); ISTAT ARTERIAL BLOOD GAS pH 7.23 (7.35-7.45); ISTAT CARBON DIOXIDE 13 mEq/l (24-31); ISTAT DELIVERY SYSTEM Ventilator; ISTAT FIO2 40 %; ISTAT PEEP 12; ISTAT SITE Art Line; VE 13.3; Vt 500
[2017-04-01] MEDS: CLINDAMYCIN IV 600 MG in DEXTROSE 5% 50ML 50 ML IV SCH ×2 (00:52→09:19)
[2017-04-01] MEDS ORDERED: VANCOMYCIN INJ 1,000 MG in SODIUM CHLORIDE 0.9% 250ML 250 ML IV STA (01:03)
[2017-04-01 01:04] LABS: BASO % 0.3 %; BASO ABS # 0.01 K/uL (0-0.2); COMPLETE YES; EOS % 0.6 %; IG% 0.3 %; LYMPH % 25.3 %; LYMPH ABS # 0.89 K/uL (1.2-3.4); NEUT % 65.5 %; POLYCHROMASIA 1+
[2017-04-01 01:07] LABS: ALB/GLOB RATIO 1.4 (0.9-2); BUN/CREATININE RATIO 16.7 (10-20); CALCIUM 7.4 mg/dl (8.5-10.1); CREATININE 1.4 mg/dl (0.60-1.20); MAGNESIUM 1.7 mg/dl (1.8-2.4); PHOSPHORUS 5.1 mg/dl (2.5-4.9)
[2017-04-01 01:20] LABS: BETA-HYDROXYBUTYRATE 0.7 mg/dL (0.2-2.81)
[2017-04-01] MEDS ORDERED: VANCOMYCIN CONSULT ACTIVE PRN (03:00)
[2017-04-01] MEDS: AZTREONAM 2000 MG in DEXTROSE 5% 100 ML IV SCH (03:04)
[2017-04-01] MEDS: HYDROCORTISONE IV 100 MG in SYRINGE 0 ML IV SCH (03:05)
[2017-04-01] MEDS: NOREPINEPHRINE BIT INJ 8 MG in DEXTROSE 5% 500ML 500 ML IV SCH (03:06)
[2017-04-01] MEDS: VASOPRESSIN INJ 50 UNITS in SODIUM CHLORIDE 0.9% 500ML 500 ML IV SCH (03:08)
[2017-04-01] MEDS: SODIUM BICARBONATE 8.4% INJ 150 MEQ in DEXTROSE 5% 1000ML 1,000 ML IV SCH (05:04)
[2017-04-01] MEDS: ALBUMIN HUMAN 5% 12.5 GM/250 ML VIAL IV SCH ×2 (05:05→11:38)
[2017-04-01] MEDS: ARTIFICIAL TEARS OP OINT 3.5 GM TUBE OPB SCH ×2 (05:06→14:29)
[2017-04-01 06:15] LABS: ISTAT ARTERIAL BLOOD GAS HCO3 12 meq/L (19-24); ISTAT ARTERIAL BLOOD GAS PCO2 26 mmHg (35-46); ISTAT ARTERIAL BLOOD GAS PO2 87 mmHg (80-95); ISTAT ARTERIAL BLOOD GAS pH 7.26 (7.35-7.45); ISTAT CARBON DIOXIDE 12 mEq/l (24-31); ISTAT DELIVERY SYSTEM Ventilator; ISTAT FIO2 30 %; ISTAT PEEP 12; ISTAT RATE 26; ISTAT SITE Art Line; VE 13.3; Vt 500
[2017-04-01 06:41] LABS: BUN/CREATININE RATIO 18.9 (10-20); CALCIUM 7.5 mg/dl (8.5-10.1); CREATININE 1.3 mg/dl (0.60-1.20); MAGNESIUM 1.8 mg/dl (1.8-2.4); POTASSIUM 3.8 mmol/L (3.5-5.1)
[2017-04-01 06:43] LABS: ALB/GLOB RATIO 1.4 (0.9-2); PHOSPHORUS 5.3 mg/dl (2.5-4.9)
[2017-04-01 06:47] LABS: PLATELET COUNT 26 K/uL (130-400)
[2017-04-01 06:48] LABS: HEMATOCRIT 21.5 % (37-47); MEAN CORPUSCULAR HEMOGLOBIN 37.8 pg (25-34); MEAN CORPUSCULAR HGB CONC 35.3 g/dl (32-36); MEAN PLATELET VOLUME 11.5 fL (7.4-10.4); RED BLOOD COUNT 2.01 M/uL (4.2-5.4); WHITE BLOOD COUNT 4.59 K/uL (4.8-10.8)
[2017-04-01 06:49] LABS: BASO % 0.2 %; BASO ABS # 0.01 K/uL (0-0.2); COMPLETE YES; EOS % 0.2 %; IG% 7.6 %; LYMPH % 23.7 %; LYMPH ABS # 1.09 K/uL (1.2-3.4); MONO % 12.6 %; NEUT % 55.7 %; PLT ESTIMATE SIGNIFIC DECREASED; POLYCHROMASIA 1+; VACUOLIZATION 1+
--- NOTE | 2017-04-01 07:01 | DIAGNOSTIC IMAGING REPORT ---
CHEST ONE VIEW PORTABLE CLINICAL HISTORY: Respiratory failure COMPARISON STUDY: [id number] FINDINGS: The cardiac and mediastinal contours remain stable. There is a right internal jugular dual-lumen central venous catheter unchanged in position. The left subclavian central venous catheter remains unchanged in position. Endotracheal tube is 35 mm above the indira. There is a nasogastric tube which passes into the stomach. There is a left-sided PICC catheter with its tip projecting over the region of the left axillary vein. The cardiac and mediastinal contours remain stable. There are persistent left basilar airspace opacities. A small left pleural effusion is suspected. There is mild central vascular prominence.[ IMPRESSION: 1. Endotracheal tube 3.5 cm above the indira 2. Persistent left basilar airspace opacities. Suspected small left pleural effusion. Electronically signed by: Merlin Morataya M.D. 04/01/2017 7:00 AM Dictated Date/Time: 04/01/2017 6:58 AM
[2017-04-01] MEDS: ALBUT/IPRATROP 3MG/0.5MG NEB 3 ML VIAL INH SCH (07:21)
[2017-04-01 07:54] LABS: ESTIMATED AVERAGE GLUCOSE 105 mg/dl; HA1C FLAG Normal (Normal)
[2017-04-01] MEDS ORDERED: VANCOMYCIN INJ 1,250 MG in SODIUM CHLORIDE 0.9% 250ML 250 ML IV ONE (08:00)
[2017-04-01] MEDS ORDERED: HYDROCORTISONE IV SCH ×2 (08:30→09:15)
[2017-04-01] MEDS ORDERED: HYDROCORTISONE IV 50 MG in SYRINGE 0 ML IV ONE (09:00)
[2017-04-01] MEDS ORDERED: LEVOTHYROXINE SODIUM INJ 50 MCG in SYRINGE 0 ML IV SCH (09:00)
[2017-04-01] MEDS ORDERED: VANCOMYCIN INJ 1,000 MG in SODIUM CHLORIDE 0.9% 250ML 250 ML IV SCH (09:00)
[2017-04-01] MEDS ORDERED: SODIUM CHLORIDE 0.9% IV SCH ×3 (09:15→16:00)
[2017-04-01] MEDS: THIAMINE HCL IV SCH ×2 (09:19→14:29)
[2017-04-01] MEDS: SODIUM CHLORIDE 0.9% IV SCH ×2 (09:19→14:29)
[2017-04-01] MEDS: ASCORBIC ACID IV SCH ×2 (09:19→14:29)
--- NOTE | 2017-04-01 09:49 | Progress Note ---
Medicine Progress Note Date & Time of Visit: Apr 01, 2017 at 09:44. Subjective intubated, on mechanical ventilator, sedated not in distress being weaned off 2 other pressors, now only on levophed no other issues per director staffing Objective Last 8 Hrs Date Time Temp Pulse Resp B/P (MAP) Pulse Ox O2 Delivery O2 Flow Rate FiO2 04/01/17 09:21 30 04/01/17 09:07 Mechanical Ventilator 30 04/01/17 07:25 30 04/01/17 06:01 36.5 92 26 131/75 (93) 98 04/01/17 06:00 36.5 93 26 130/76 (94) 04/01/17 05:46 36.6 94 26 275/275 (275) 98 04/01/17 05:31 36.5 93 26 126/74 (91) 97 04/01/17 05:16 36.6 93 26 115/68 (84) 96 04/01/17 05:02 30 04/01/17 05:01 36.8 94 26 106/62 (77) 98 04/01/17 05:00 36.8 92 26 104/60 (75) 99 04/01/17 04:03 100 Mechanical Ventilator 50 04/01/17 04:03 50 04/01/17 04:00 37.0 93 26 92/56 (68) Mechanical Ventilator 30 04/01/17 03:00 37.0 96 26 105/61 (76) 96 Mechanical Ventilator 30 04/01/17 02:31 37.0 99 26 106/63 (77) 98 Mechanical Ventilator 30 04/01/17 02:16 40 04/01/17 02:00 37.0 100 26 112/66 (81) Mechanical Ventilator 40 Physical Exam: General- intubated, sedated, not in distress Head- atraumatic, (+) alopecia Eyes- anicteric ENT- intubated Neck- no JV Lungs- clear breath sounds bilaterally Heart- regular rhythm; no murmur, normal rate Abdomen- normal bowel sounds, soft, nontender Extremities- no pretibial edema, no calf tenderness Neuro- sedated, intubated Skin- warm & dry, diffuse small hematomas, skin tears Laboratory Results: Last 24 Hours Test 03/31/17 09:50 03/31/17 11:40 8/27/17 12:24 03/31/17 12:26 CSF Color COLORLESS CSF Appearance CLEAR CSF WBC 0 /uL CSF RBC 0 /uL CSF Xanthrochromic NO XANTHOCHROMIA CSF Cell Count Tube # 4 CSF Chemistry Tube # 2 CSF Glucose 87 mg/dl CSF Total Protein 60.1 mg/dl Urine Color YELLOW Urine Appearance CLEAR Urine pH 7.0 Urine Specific Rush 1.016 Urine Protein TRACE Urine Glucose (UA) NEG Urine Ketones NEG Urine Occult Blood NEG Urine Nitrite POS Urine Bilirubin NEG Urine Urobilinogen NEG Urine Leukocyte Esterase NEG Urine WBC (Auto) 0 /hpf Urine RBC (Auto) 0-4 /hpf Urine Hyaline Casts (Auto) 1-5 /lpf Urine Epithelial Cells (Auto) 5-10 /lpf Urine Bacteria (Auto) NEG Urine Opiates Screen NEG Urine Methadone, Qualitative NEG Urine Barbiturates NEG Urine Phencyclidine (PCP) Level NEG Ur Amphetamine/Methamphetamine NEG MDMA (Ecstasy) Screen NEG Urine Benzodiazepines Screen NEG Urine Cocaine Metabolite NEG Urine Marijuana (THC) NEG Blood Gas Sample Site Art Line Bedside Blood Gas pH (LAB) 7.26 Bedside Blood Gas pCO2 (LAB) 29 mmHg Bedside Blood Gas pO2 (LAB) 51 mmHg Bedside Blood Gas HCO3 (LAB) 14 meq/L Bedside Blood Gas Total CO2 14 mEq/l Bedside Blood Gas Base Excess (LAB) -14.0 meq/L Bedside Blood Gas O2 Saturation 86.0 % Froy Test NA Oxygen Delivery Device Ventilator Bedside Oxygen Rate (breaths/min) 12 Blood Gas Minute Ventilation 6 Bedside FiO2 70 % Blood Gas Tidal Volume 500 Blood Gas PEEP 5 White Blood Count 4.90 K/uL Red Blood Count 2.43 M/uL Hemoglobin 9.0 g/dL Hematocrit 26.7 % Mean Corpuscular Volume 109.9 fL Mean Corpuscular Hemoglobin 37.0 pg Mean Corpuscular Hemoglobin Concent 33.7 g/dl Platelet Count 74 K/uL Mean Platelet Volume 9.9 fL RDW Standard Deviation 61.0 fL RDW Coefficient of Variation 15.4 % Nucleated RBC Absolute Count (auto) 0.14 K/uL Neutrophils % (Manual) 33.3 % Lymphocytes % (Manual) 64.0 % Monocytes % (Manual) 0.9 % Basophils % (Manual) 0.9 % Myelocytes % 0.9 % Nucleated Red Blood Cells % 2.9 % Neutrophils # (Manual) 1.63 K/uL Total Absolute Neutrophils 1.63 K/uL Lymphocytes # (Manual) 3.14 K/uL Total Absolute Lymphocytes 3.14 K/uL Monocytes # (Manual) 0.04 K/uL Basophils # (Manual) 0.04 K/uL Myelocytes # 0.04 K/uL Hypersegmented Polys 1+ Dohle Bodies 1+ Platelet Estimate DECREASED Large Platelets 1+ Tear Drop Cells 1+ Peripheral Blood Smear Path Consult Lactic Acid Level 4.9 mmol/L Ionized Calcium 1.06 mmol/l Amylase Level 52 U/L Lipase 60 U/L Test 03/31/17 15:09 03/31/17 15:13 03/31/17 16:08 03/31/17 16:11 Sodium Level 140 mmol/L Potassium Level 3.6 mmol/L Chloride Level 110 mmol/L Carbon Dioxide Level 14 mmol/L Anion Gap 16.0 mmol/L Blood Urea Nitrogen 23 mg/dl Creatinine 1.50 mg/dl Est Creatinine Clear Calc Drug Dose 36.8 ml/min Estimated GFR () 43.1 Estimated GFR (Non- 37.2 BUN/Creatinine Ratio 15.6 Random Glucose 301 mg/dl Lactic Acid Level 5.5 mmol/L Calcium Level 8.6 mg/dl Phosphorus Level 5.4 mg/dl Magnesium Level 1.7 mg/dl Total Bilirubin 0.6 mg/dl Aspartate Amino Transf (AST/SGOT) 295 U/L Alanine Aminotransferase (ALT/SGPT) 165 U/L Alkaline Phosphatase 253 U/L Total Creatine Kinase 1975 U/L Creatine Kinase MB 50.0 ng/ml Creatine Kinase MB Ratio 2.5 Troponin I 0.432 ng/ml Total Protein 4.4 gm/dl Albumin 2.0 gm/dl Globulin 2.4 gm/dl Albumin/Globulin Ratio 0.8 Beta-Hydroxybutyric Acid 0.75 mg/dL Thyroid Stimulating Hormone (TSH) 4.560 uIu/ml Blood Gas Sample Site Art Line Bedside Blood Gas pH (LAB) 7.14 Bedside Blood Gas pCO2 (LAB) 39 mmHg Bedside Blood Gas pO2 (LAB) 142 mmHg Bedside Blood Gas HCO3 (LAB) 13 meq/L Bedside Blood Gas Total CO2 14 mEq/l Bedside Blood Gas Base Excess (LAB) -16.0 meq/L Bedside Blood Gas O2 Saturation 98.0 % Froy Test NA Oxygen Delivery Device Ventilator Bedside Oxygen Rate (breaths/min) 20 Blood Gas Minute Ventilation 10 Bedside FiO2 100 % Blood Gas Tidal Volume 500 Blood Gas PEEP 12 Fibrinogen 352 mg/dl Bedside Glucose 314 mg/dl Test 03/31/17 18:35 03/31/17 18:59 03/31/17 19:42 03/31/17 20:47 White Blood Count 6.52 K/uL Red Blood Count 2.32 M/uL Hemoglobin 8.8 g/dL Hematocrit 25.7 % Mean Corpuscular Volume 110.8 fL Mean Corpuscular Hemoglobin 37.9 pg Mean Corpuscular Hemoglobin Concent 34.2 g/dl Platelet Count 56 K/uL Mean Platelet Volume 10.9 fL RDW Standard Deviation 61.2 fL RDW Coefficient of Variation 15.4 % Nucleated RBC Absolute Count (auto) 0.36 K/uL Neutrophils % (Manual) 66.5 % Lymphocytes % (Manual) 21.1 % Monocytes % (Manual) 5.3 % Basophils % (Manual) 1.8 % Metamyelocytes % 5.3 % Nucleated Red Blood Cells % 5.6 % Neutrophils # (Manual) 4.34 K/uL Total Absolute Neutrophils 4.34 K/uL Lymphocytes # (Manual) 1.38 K/uL Total Absolute Lymphocytes 1.38 K/uL Monocytes # (Manual) 0.35 K/uL Basophils # (Manual) 0.12 K/uL Metamyelocytes # 0.35 K/uL Hypersegmented Polys 1+ Dohle Bodies 1+ Polychromasia 1+ Anisocytosis PRESENT Macrocytosis PRESENT Tear Drop Cells OCCASIONAL Duran-Orin Bodies OCCASIONAL Echinocytes 1+ Prothrombin Time 12.8 SECONDS Prothromb Time International Ratio 1.2 Activated Partial Thromboplast Time 40.4 SECONDS Partial Thromboplastin Ratio 1.6 Fibrinogen 315 mg/dl Sodium Level 133 mmol/L Potassium Level 4.7 mmol/L Chloride Level 107 mmol/L Carbon Dioxide Level 13 mmol/L Anion Gap 13.0 mmol/L Blood Urea Nitrogen 24 mg/dl Creatinine 1.50 mg/dl Est Creatinine Clear Calc Drug Dose 36.8 ml/min Estimated GFR () 43.1 Estimated GFR (Non- 37.2 BUN/Creatinine Ratio 16.0 Random Glucose 382 mg/dl Lactic Acid Level 4.4 mmol/L Calcium Level 9.0 mg/dl Ionized Calcium 1.41 mmol/l Phosphorus Level 6.8 mg/dl Magnesium Level 2.2 mg/dl Total Bilirubin 0.9 mg/dl Aspartate Amino Transf (AST/SGOT) 336 U/L Alanine Aminotransferase (ALT/SGPT) 181 U/L Alkaline Phosphatase 188 U/L Total Protein 3.6 gm/dl Albumin 1.6 gm/dl Globulin 2.0 gm/dl Albumin/Globulin Ratio 0.8 Beta-Hydroxybutyric Acid 0.70 mg/dL Blood Gas Sample Site Art Line Art Line Bedside Blood Gas pH (LAB) 7.10 7.16 Bedside Blood Gas pCO2 (LAB) 36 mmHg 30 mmHg Bedside Blood Gas pO2 (LAB) 131 mmHg 108 mmHg Bedside Blood Gas HCO3 (LAB) 11 meq/L 11 meq/L Bedside Blood Gas Total CO2 12 mEq/l 12 mEq/l Bedside Blood Gas Base Excess (LAB) -18.0 meq/L -18.0 meq/L Bedside Blood Gas O2 Saturation 98.0 % 97.0 % Froy Test NA NA Oxygen Delivery Device Ventilator Ventilator Bedside Oxygen Rate (breaths/min) 20 26 Blood Gas Minute Ventilation 10 13.4 Bedside FiO2 80 % 50 % Blood Gas Tidal Volume 500 500 Blood Gas PEEP 12 12 Bedside Glucose (other) 373 mg/dl Test 03/31/17 20:52 03/31/17 21:02 03/31/17 22:01 03/31/17 22:57 Bedside Glucose (other) 392 mg/dl 385 mg/dl 381 mg/dl Sodium Level 131 mmol/L Potassium Level 4.6 mmol/L Chloride Level 104 mmol/L Carbon Dioxide Level 12 mmol/L Anion Gap 15.0 mmol/L Blood Urea Nitrogen 25 mg/dl Creatinine 1.50 mg/dl Est Creatinine Clear Calc Drug Dose 36.8 ml/min Estimated GFR () 43.1 Estimated GFR (Non- 37.2 BUN/Creatinine Ratio 16.7 Random Glucose 400 mg/dl Estimated Average Glucose 105 mg/dl Hemoglobin A1c 5.3 % Lactic Acid Level 4.5 mmol/L Calcium Level 8.0 mg/dl Phosphorus Level 6.4 mg/dl Magnesium Level 1.9 mg/dl Total Bilirubin 1.2 mg/dl Aspartate Amino Transf (AST/SGOT) 387 U/L Alanine Aminotransferase (ALT/SGPT) 209 U/L Alkaline Phosphatase 189 U/L Total Creatine Kinase 1385 U/L Creatine Kinase MB 36.3 ng/ml Creatine Kinase MB Ratio 2.6 Troponin I 0.340 ng/ml Total Protein 4.6 gm/dl Albumin 2.4 gm/dl Globulin 2.2 gm/dl Albumin/Globulin Ratio 1.1 Beta-Hydroxybutyric Acid 0.78 mg/dL Test 03/31/17 23:58 04/01/17 00:13 04/01/17 00:40 04/01/17 00:59 Bedside Glucose (other) 368 mg/dl 348 mg/dl White Blood Count 3.52 K/uL Red Blood Count 1.98 M/uL Hemoglobin 7.2 g/dL Hematocrit 21.7 % Mean Corpuscular Volume 109.6 fL Mean Corpuscular Hemoglobin 36.4 pg Mean Corpuscular Hemoglobin Concent 33.2 g/dl Platelet Count 35 K/uL Mean Platelet Volume 11.8 fL Neutrophils (%) (Auto) 65.5 % Lymphocytes (%) (Auto) 25.3 % Monocytes (%) (Auto) 8.0 % Eosinophils (%) (Auto) 0.6 % Basophils (%) (Auto) 0.3 % Neutrophils # (Auto) 2.31 K/uL Lymphocytes # (Auto) 0.89 K/uL Monocytes # (Auto) 0.28 K/uL Eosinophils # (Auto) 0.02 K/uL Basophils # (Auto) 0.01 K/uL RDW Standard Deviation 60.4 fL RDW Coefficient of Variation 15.3 % Immature Granulocyte % (Auto) 0.3 % Immature Granulocyte # (Auto) 0.01 K/uL Nucleated RBC Absolute Count (auto) 0.28 K/uL Nucleated Red Blood Cells % 7.9 % Polychromasia 1+ Basophilic Stippling 1+ Sodium Level 132 mmol/L Potassium Level 4.0 mmol/L Chloride Level 104 mmol/L Carbon Dioxide Level 12 mmol/L Anion Gap 16.0 mmol/L Blood Urea Nitrogen 23 mg/dl Creatinine 1.40 mg/dl Est Creatinine Clear Calc Drug Dose 39.5 ml/min Estimated GFR () 46.9 Estimated GFR (Non- 40.5 BUN/Creatinine Ratio 16.7 Random Glucose 354 mg/dl Lactic Acid Level 3.6 mmol/L Calcium Level 7.4 mg/dl Ionized Calcium 1.12 mmol/l Phosphorus Level 5.1 mg/dl Magnesium Level 1.7 mg/dl Total Bilirubin 1.6 mg/dl Aspartate Amino Transf (AST/SGOT) 368 U/L Alanine Aminotransferase (ALT/SGPT) 209 U/L Alkaline Phosphatase 161 U/L Total Protein 4.6 gm/dl Albumin 2.7 gm/dl Globulin 1.9 gm/dl Albumin/Globulin Ratio 1.4 Beta-Hydroxybutyric Acid 0.70 mg/dL Blood Gas Sample Site Art Line Bedside Blood Gas pH (LAB) 7.23 Bedside Blood Gas pCO2 (LAB) 28 mmHg Bedside Blood Gas pO2 (LAB) 100 mmHg Bedside Blood Gas HCO3 (LAB) 12 meq/L Bedside Blood Gas Total CO2 13 mEq/l Bedside Blood Gas Base Excess (LAB) -16.0 meq/L Bedside Blood Gas O2 Saturation 97.0 % Froy Test NA Oxygen Delivery Device Ventilator Blood Gas Minute Ventilation 13.3 Bedside FiO2 40 % Blood Gas Tidal Volume 500 Blood Gas PEEP 12 Test 04/01/17 01:58 04/01/17 02:58 04/01/17 03:52 04/01/17 03:59 Bedside Glucose (other) 305 mg/dl 267 mg/dl 230 mg/dl Procalcitonin 26.75 ng/ml Random Vancomycin Level 14.7 mcg/ml Test 04/01/17 04:59 04/01/17 05:40 04/01/17 05:48 04/01/17 05:57 Bedside Glucose (other) 181 mg/dl 166 mg/dl White Blood Count 4.59 K/uL Red Blood Count 2.01 M/uL Hemoglobin 7.6 g/dL Hematocrit 21.5 % Mean Corpuscular Volume 107.0 fL Mean Corpuscular Hemoglobin 37.8 pg Mean Corpuscular Hemoglobin Concent 35.3 g/dl Platelet Count 26 K/uL Mean Platelet Volume 11.5 fL Neutrophils (%) (Auto) 55.7 % Lymphocytes (%) (Auto) 23.7 % Monocytes (%) (Auto) 12.6 % Eosinophils (%) (Auto) 0.2 % Basophils (%) (Auto) 0.2 % Neutrophils # (Auto) 2.55 K/uL Lymphocytes # (Auto) 1.09 K/uL Monocytes # (Auto) 0.58 K/uL Eosinophils # (Auto) 0.01 K/uL Basophils # (Auto) 0.01 K/uL RDW Standard Deviation 61.1 fL RDW Coefficient of Variation 15.6 % Immature Granulocyte % (Auto) 7.6 % Immature Granulocyte # (Auto) 0.35 K/uL Nucleated RBC Absolute Count (auto) 0.25 K/uL Nucleated Red Blood Cells % 5.5 % Toxic Vacuolation 1+ Platelet Estimate SIGNIFIC DECREASED Polychromasia 1+ Macrocytosis PRESENT Sodium Level 129 mmol/L Potassium Level 3.8 mmol/L Chloride Level 101 mmol/L Carbon Dioxide Level 13 mmol/L Anion Gap 15.0 mmol/L Blood Urea Nitrogen 25 mg/dl Creatinine 1.30 mg/dl Est Creatinine Clear Calc Drug Dose 42.5 ml/min Estimated GFR () 51.3 Estimated GFR (Non- 44.2 BUN/Creatinine Ratio 18.9 Random Glucose 175 mg/dl Lactic Acid Level 4.6 mmol/L Calcium Level 7.5 mg/dl Ionized Calcium 1.06 mmol/l Phosphorus Level 5.3 mg/dl Magnesium Level 1.8 mg/dl Total Bilirubin 2.0 mg/dl Aspartate Amino Transf (AST/SGOT) 602 U/L Alanine Aminotransferase (ALT/SGPT) 373 U/L Alkaline Phosphatase 148 U/L Total Protein 4.9 gm/dl Albumin 2.9 gm/dl Globulin 2.0 gm/dl Albumin/Globulin Ratio 1.4 Test 04/01/17 06:01 04/01/17 08:02 04/01/17 08:40 04/01/17 08:58 Blood Gas Sample Site Art Line Bedside Blood Gas pH (LAB) 7.26 Bedside Blood Gas pCO2 (LAB) 26 mmHg Bedside Blood Gas pO2 (LAB) 87 mmHg Bedside Blood Gas HCO3 (LAB) 12 meq/L Bedside Blood Gas Total CO2 12 mEq/l Bedside Blood Gas Base Excess (LAB) -16.0 meq/L Bedside Blood Gas O2 Saturation 96.0 % Froy Test NA Oxygen Delivery Device Ventilator Bedside Oxygen Rate (breaths/min) 26 Blood Gas Minute Ventilation 13.3 Bedside FiO2 30 % Blood Gas Tidal Volume 500 Blood Gas PEEP 12 Bedside Glucose (other) 127 mg/dl 122 mg/dl Date/Time Source Procedure Growth Status 03/31/17 09:50 Cerebral Spinal Fluid Fungal Culture Pending Received 03/31/17 09:50 Cerebral Spinal Fluid Gram Stain - Final Resulted 03/31/17 09:50 Cerebral Spinal Fluid CSF Culture - Preliminary NO GROWTH TO DATE. Resulted 03/31/17 11:20 Nasal MRSA DNA Surveillance Screen - Final Specimen Negative for MRSA by DNA Probe Complete 03/31/17 11:40 Urine,Catheterized Urine Culture - Preliminary Staphylococcus Aureus Resulted Assessment & Plan 62 year old female with history of AML s/p Stem Cell Transplant on Tacrolimus, Takatsubo Cardiomyopathy, Hypothyroidism presenting with altered mental status. HYPOTENSION, ACUTE RESPIRATORY FAILURE POSSIBLY FROM: SEPTIC SHOCK - blood cultures: Staph, sens pending urine culture: Staph, sens pending - GB US: possible acute cholecystitis - lactic acid improving - empiric Vanco + Aztreonam + Clindamycin IV, also on Fluconazole IV IV fluid Gen Surg to be consulted re: central line replacement, acute noemy further management , including Mechanical Ventilation, per Reservation Sales Agent HYPOVOLEMIA COMPONENT - IV fluids given ADRENAL INSUFFICIENCY - IV hydrocortisone ordered other work up: echo: * There is borderline asymmetric left ventricular hypertrophy. * Left ventricular systolic function is normal. * Grade I diastolic dysfunction, (abnormal relaxation pattern). * The left atrium is mildly dilated. * Right ventricular systolic pressure is elevated at 30-40mmHg. * Small right pleural effusion. Ct angio/Doppler: negative THROMBOCYTOPENIA - 2 units plt ordered ACUTE RENAL FAILURE - IV fluids - likely prerenal, from sepsis, from hypotension - improving crea HYPOKALEMIA - IV K ordered - improved ELEVATED LFTS likely from shock - GB showing possible cholecystitis - Gen Surg consulted PROLONGED QT - monitor - no medications prolonging QT METABOLIC ACIDOSIS - lactic acid elevated improving IV fluids AML, S/P STEM CELL TRANSPLANT - on Tacrolimus will need to hold for ongoing sepsis patient follows with Dr. Vail from [place] in [facility] will need to discuss with him re: resumption of Tacrolimus Full code per discussion with patient's SCDs for now Dispo pending Advanced Directives Existing Living Will: No Existing Power of Butter Grader: No VTE Prophylaxis VTE Risk Assessment Done? Y/N: Yes Risk Level: Moderate Current Inpatient Medications: Current Inpatient Medications Medications (Trade) Dose Ordered Sig/Adelaida Route Start Time Stop Time Status Last Admin Dose Admin Norepinephrine Bitartrate 8 mg/ Dextrose 508 ml @ 0 mls/hr Q0M IV 03/31/17 10:15 04/30/17 10:14 04/01/17 03:06 124 MLS/HR Pantoprazole Sodium 40 mg/ Syringe 10 ml @ 5 mls/min DAILY@2100 IV 03/31/17 21:00 04/30/17 20:59 03/31/17 22:59 5 MLS/MIN Vasopressin 50 units/Sodium Chloride 502.5 ml @ 24 mls/hr [id number] IV 03/31/17 10:43 04/30/17 10:42 04/01/17 03:08 24 MLS/HR Aztreonam (Consult) 1 ea UD PRN N/A 03/31/17 11:00 04/30/17 10:59 Epinephrine HCl 4 mg/Dextrose 254 ml @ 0 mls/hr Q0M IV 03/31/17 12:27 04/30/17 12:26 03/31/17 18:54 49.5 MLS/HR Clindamycin Phosphate 600 mg/ Dextrose 54 ml @ 100 mls/hr Q8H IV 03/31/17 16:00 04/02/17 15:59 04/01/17 09:19 100 MLS/HR Fluconazole/ Sodium Chloride 200 mg/Prmx 100 ml @ 100 mls/hr DAILY@1000,1100 IV 04/01/17 10:00 04/03/17 09:59 Fentanyl Citrate 250 ml @ 0 mls/hr Q0M PRN IV 03/31/17 15:30 04/14/17 15:29 04/01/17 03:06 25 MLS/HR Midazolam HCl 250 ml @ 0 mls/hr Q0M PRN IV 03/31/17 15:30 04/30/17 15:29 Glucose (Glucose 40% Gel) UD PRN PO 03/31/17 15:30 04/30/17 15:29 Glucose (Glucose Chew Tab) 1 tabs UD PRN PO 03/31/17 15:30 04/30/17 15:29 Dextrose (Dextrose 50% 50ML Syringe) 50 ml UD PRN IV 03/31/17 15:30 04/30/17 15:29 Glucagon (Glucagon Inj) 1 mg UD PRN SQ 03/31/17 15:30 04/30/17 15:29 Aztreonam 2000 mg/ Dextrose 110 ml @ 110 mls/hr Q8H IV 03/31/17 18:00 04/07/17 17:59 04/01/17 03:04 110 MLS/HR Artificial Tears (Lacri-Lube Oph Oint) 1 appln Q8 OPB 03/31/17 22:00 04/30/17 21:59 04/01/17 05:06 1 APPLN Albumin Human (Albumin 5%) 25 gm Q6H IV 03/31/17 16:30 04/01/17 10:31 04/01/17 05:05 25 GM Insulin Human Regular 250 units/ Sodium Chloride 252.5 ml @ 0 mls/hr DAILY@1130 IV 03/31/17 16:41 04/30/17 16:40 03/31/17 17:09 1.6 MLS/HR Ioversol (Optiray 320) 115 ml UD PRN IV 03/31/17 18:30 04/04/17 18:29 Levothyroxine Sodium 50 mcg/ Syringe 2.5 ml @ 2 mls/min DAILY@09 IV 04/01/17 09:00 05/01/17 08:59 04/01/17 09:19 2 MLS/MIN Sodium Bicarbonate 150 meq/Dextrose 1,150 ml @ 125 mls/hr Q9H12M IV 03/31/17 19:30 04/30/17 19:29 04/01/17 05:04 125 MLS/HR Heparin Sodium (Porcine) (Heparin 10 Unit/ ml 5 ml Flush) 5 ml PRN PRN FLUSH 03/31/17 23:30 04/30/17 23:29 Vancomycin HCl (Consult) 1 ea UD PRN N/A 04/01/17 03:00 05/01/17 02:59 Vancomycin HCl 1250 mg/Sodium Chloride 275 ml @ 125 mls/hr NOW ONCE IV 04/01/17 08:00 04/01/17 10:11 04/01/17 09:19 125 MLS/HR Ipratropium [place] (Atrovent Hfa Inhaler) 4 puffs QIDR INH 04/01/17 12:00 05/01/17 11:59 Albuterol (Ventolin Hfa Inhaler) 4 puffs QIDR INH 04/01/17 12:00 05/01/17 11:59 Hydrocortisone Sodium Succinate 250 mg/Sodium Chloride 255 ml @ 10 mls/hr Q24H IV 04/01/17 09:15 05/01/17 09:14 Ascorbic Acid 1500 mg/Thiamine HCl 50 mg/Sodium Chloride 103.5 ml @ 206 mls/hr Q6H IV 04/01/17 09:00 04/05/17 03:31 04/01/17 09:19 206 MLS/HR
[2017-04-01] MEDS ORDERED: FLUCONAZOLE / NSS 200 MG in PREMIXED NSS 100 ML IV SCH (10:00)
[2017-04-01] MEDS ORDERED: FUROSEMIDE INJ 20 MG in SYRINGE 0 ML IV ONE (11:00)
[2017-04-01] MEDS ORDERED: NOREPINEPHRINE BIT IV SCH (11:00)
[2017-04-01] MEDS ORDERED: CALCIUM GLUCONATE 10% 1,000 MG in SODIUM CHLORIDE 0.9% 50ML 50 ML IV STA (11:11)
[2017-04-01] MEDS ORDERED: CALCIUM GLUCONATE 10% 1,000 MG in SODIUM CHLORIDE 0.9% 50ML 50 ML IV ONE (11:15)
[2017-04-01] MEDS: IPRATROPIUM BROMIDE HFA INHALER INH SCH ×2 (11:16→14:47)
[2017-04-01] MEDS: ALBUTEROL HFA 8 GM INHALER INH SCH ×2 (11:16→14:47)
[2017-04-01 11:22] LABS: ISTAT ARTERIAL BLOOD GAS HCO3 15 meq/L (19-24); ISTAT ARTERIAL BLOOD GAS PCO2 32 mmHg (35-46); ISTAT ARTERIAL BLOOD GAS PO2 < 32 mmHg (80-95); ISTAT ARTERIAL BLOOD GAS pH 7.27 (7.35-7.45); ISTAT CARBON DIOXIDE 16 mEq/l (24-31); ISTAT DELIVERY SYSTEM Ventilator; ISTAT FIO2 40 %; ISTAT PEEP 12; ISTAT RATE 28; ISTAT SITE Art Line; VE 14.7; Vt 500
[2017-04-01] MEDS ORDERED: SODIUM CHLORIDE 0.9% IV ONE ×2 (11:30→13:00)
[2017-04-01] MEDS ORDERED: TAZOBAC IV ONE (11:30)
[2017-04-01] MEDS: INSULIN REGULAR 250 UNITS in SODIUM CHLORIDE 0.9% 250ML 250 ML IV SCH (11:30)
[2017-04-01] MEDS ORDERED: LIDOCAINE HCL 1% 20 ML VIAL INFIL ONE (11:30)
[2017-04-01] MEDS ORDERED: PIPERACILL IV ONE (11:30)
[2017-04-01] MEDS ORDERED: MIDAZOLAM HCL 1 MG/ML 2ML VIAL IV PRN (12:00)
[2017-04-01] MEDS ORDERED: FENTANYL CITRATE INJ 50 MCG/1 ML 2 ML VIAL IV PRN (12:00)
[2017-04-01] MEDS: DEXTROSE 50% 50 ML SYR IV PRN ×3 (12:10→19:15)
[2017-04-01 12:19] LABS: HEMATOCRIT 20.3 % (37-47)
--- NOTE | 2017-04-01 12:19 | Medical Consult ---
Consultation Date of Consultation: Apr 01, 2017. Attending Physician: Edmund Lepe MD Reason for Consultation: "Thrombocytopenia, h/o AML with gram + sepsis" History of Present Illness Mrs. 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 Vail. She has PMH significant for takotsubo cardiomyopathy, hypothyroidism, autoimmune hepatitis. he was evaluated initially in January of 2016 for thrombocytopenia. Pathologic impression per bone marrow biopsy at [facility] did not yield concern for an acute (no increase in blasts) or chronic leukemic process, and the platelet count reportedly improved somewhat with initiation of prednisone. She was then found to have a marked leukocytosis (reaching 97,000) with monocytosis and circulating blasts and worsening thrombocytopenia (to 31k). She was transferred to [facility] where she underwent additional workup including a bone marrow aspiration and biopsy on 05/15/16, which demonstrated focal hypercellularity, immature myeloid/monocytic proliferation with aberrant CD56 expression, atypical megakaryocytes, and an increase in blasts with an immunophenotype confirming AML (NIKI M5). 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 She went on to start induction 7+3 (daunorubicin and cytarabine) on 05/18/16, with a subsequent d+14 marrow examination unfortunately revealing a significant volume of residual disease. She proceeded to re-induction with FLAG-AMY on 06/21 , a subsequent marrow again revealing persistence of abnormal monocytic proliferation with aberrant CD56 expression and peripheral labs notable for lack of count recovery (she has remained markedly thrombocytopenic and moderately anemic, highly dependent upon blood product transfusion). Her hospital course was quite long, and was notable for comorbidities and complications including hepatotoxicty (suspected initially to be autoimmune hepatitis), infectious endocarditis, bacteremia, HSV-1 of legs and labia, neutropenic fever, and associated marked deconditioning. Hypo-methylating therapy and aggressive physical rehabilitation was recommended by [facility]. Azacitidine, status post cycle #3 on 11/05/16. Dose reduced to 60mg/m2 for cycle #3 (final cycle) owing to cytopenias. 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 GVHD prophylaxis: Tacrolimus currently (Cellcept d/c) On 03/22/2017, she was day 100 status post allogeneic HCT. She had a bone marrow biopsy done that day that did not reveal residual leukemia on flow cytometry was negative for abnormal cell population. Her CMV level was not detectable. Per review of the inpatient chart, the patient was found yesterday morning barely responsive by her in their home. EMS was called and she was brought directly to [facility] ER. She had vomited in was incontinent of her urine and bowel movement. In the ER, she was hypotensive and unresponsive and therefore she was intubated. This episode was unexpected as the patient 's at the time of admission denied fever, respiratory or GI symptoms. She was admitted to the ICU on mechanical ventilation started on empiric daptomycin and aztreonam along with IVF. She was started on IV hydrocortisone 50 mg q.8 hours for adrenal insufficiency. Her bone marrow transplant physician was contacted who recommended to hold tacrolimus in the setting of sepsis. Workup thus far reveals 2/2 blood cultures for Staph o 'clock S aureus. Urine culture positive for Staphylococcus aureus. CSF culture negative to date preliminarily. Cerebral spinal fluid fungal culture pending. She has had extensive imaging to include CT head, CTA, venous Doppler. She has no venous thromboembolic disease on imaging. No history was obtained from the patient at bedside and she was sedated on mechanical ventilation. No family was at the bedside. Discussed the plan of care with the physician offset press assistant in ICU. The plan today is to give 2 units of irradiated platelets and 1 unit irradiated PRBC. Also, her central VAD will have to be removed in the setting of positive blood cultures. ICU team strongly considering transferring the patient from ICU to ICU to [facility] where her BMT team is located due to concern that required blood products may not be able to be obtained locally with the frequency that she likely will require. Past Medical/Surgical History Medical Problems: (1) Acute myelogenous leukemia Status: Acute (2) Altered mental status Status: Acute (3) AML (acute myelogenous leukemia) Status: Acute (4) AML (acute myeloid leukemia) Status: Acute (5) Anemia Status: Acute (6) Elevated bilirubin Status: Acute (7) Hypokalemia Status: Acute (8) Occluded PICC line Status: Acute (9) Occluded PICC line Status: Acute (10) Occluded PICC line Status: Acute (11) RUQ abdominal pain Status: Acute (12) Sepsis Status: Acute (13) Sepsis Status: Acute (14) Thrombocytopenia Status: Acute (15) Thrombocytopenia Status: Acute (16) Thrombocytopenia Status: Acute (17) UTI (urinary tract infection) Status: Acute (18) Vasovagal syncope Status: Acute Social History Problems: (1) H/O stem cell transplant Status: Acute Family History FH: alpha 1 antitrypsin deficiency SISTER FH: cancer FATHER MOTHER FH: diabetes mellitus FH: gallbladder disease FH: heart disease FATHER FH: hypertension FH: lung disease MOTHER Hemochromatosis SISTER Stroke MOTHER Social History Smoking Status: Never Smoker Drug Use: none Marital Status: Housing Status: lives with family Occupation Status: employed Allergies Coded Allergies: Penicillins (Verified Allergy, Unknown, ., 03/31/17) Sulfa Antibiotics (Verified Allergy, Unknown, ., 03/31/17) Current Inpatient Medications Current Inpatient Medications Medications (Trade) Dose Ordered Sig/Adelaida Route Start Time Stop Time Status Last Admin Dose Admin Pantoprazole Sodium 40 mg/ Syringe 10 ml @ 5 mls/min DAILY@2100 IV 03/31/17 21:00 04/30/17 20:59 03/31/17 22:59 5 MLS/MIN Vasopressin 50 units/Sodium Chloride 502.5 ml @ 24 mls/hr [id number] IV 03/31/17 10:43 04/30/17 10:42 04/01/17 03:08 24 MLS/HR Aztreonam (Consult) 1 ea UD PRN N/A 03/31/17 11:00 04/30/17 10:59 Epinephrine HCl 4 mg/Dextrose 254 ml @ 0 mls/hr Q0M IV 03/31/17 12:27 04/30/17 12:26 03/31/17 18:54 49.5 MLS/HR Clindamycin Phosphate 600 mg/ Dextrose 54 ml @ 100 mls/hr Q8H IV 03/31/17 16:00 04/02/17 15:59 04/01/17 09:19 100 MLS/HR Fentanyl Citrate 250 ml @ 0 mls/hr Q0M PRN IV 03/31/17 15:30 04/14/17 15:29 04/01/17 03:06 25 MLS/HR Glucose (Glucose 40% Gel) UD PRN PO 03/31/17 15:30 04/30/17 15:29 Glucose (Glucose Chew Tab) 1 tabs UD PRN PO 03/31/17 15:30 04/30/17 15:29 Dextrose (Dextrose 50% 50ML Syringe) 50 ml UD PRN IV 03/31/17 15:30 04/30/17 15:29 Glucagon (Glucagon Inj) 1 mg UD PRN SQ 03/31/17 15:30 04/30/17 15:29 Artificial Tears (Lacri-Lube Oph Oint) 1 appln Q8 OPB 03/31/17 22:00 04/30/17 21:59 04/01/17 05:06 1 APPLN Insulin Human Regular 250 units/ Sodium Chloride 252.5 ml @ 0 mls/hr DAILY@1130 IV 03/31/17 16:41 04/30/17 16:40 03/31/17 17:09 1.6 MLS/HR Ioversol (Optiray 320) 115 ml UD PRN IV 03/31/17 18:30 04/04/17 18:29 Levothyroxine Sodium 50 mcg/ Syringe 2.5 ml @ 2 mls/min DAILY@09 IV 04/01/17 09:00 05/01/17 08:59 04/01/17 09:19 2 MLS/MIN Sodium Bicarbonate 150 meq/Dextrose 1,150 ml @ 125 mls/hr Q9H12M IV 03/31/17 19:30 04/30/17 19:29 Future Hold 04/01/17 05:04 125 MLS/HR Heparin Sodium (Porcine) (Heparin 10 Unit/ ml 5 ml Flush) 5 ml PRN PRN FLUSH 03/31/17 23:30 04/30/17 23:29 Vancomycin HCl (Consult) 1 ea UD PRN N/A 04/01/17 03:00 05/01/17 02:59 Ipratropium [facility] [place] (Atrovent Hfa Inhaler) 4 puffs QIDR INH 04/01/17 12:00 05/01/17 11:59 Albuterol (Ventolin Hfa Inhaler) 4 puffs QIDR INH 04/01/17 12:00 05/01/17 11:59 Hydrocortisone Sodium Succinate 250 mg/Sodium Chloride 255 ml @ 10 mls/hr Q24H IV 04/01/17 09:15 05/01/17 09:14 Ascorbic Acid 1500 mg/Thiamine HCl 50 mg/Sodium Chloride 103.5 ml @ 206 mls/hr Q6H IV 04/01/17 09:00 04/05/17 03:31 04/01/17 09:19 206 MLS/HR Norepinephrine Bitartrate 8 mg/ Sodium Chloride 258 ml @ 0 mls/hr Q0M IV 04/01/17 11:00 05/01/17 10:59 Review of Systems Not obtained as patient sedated on mechanical ventilation. No family at bedside. Physical Exam Date Time Temp Pulse Resp B/P (MAP) Pulse Ox O2 Delivery O2 Flow Rate FiO2 04/01/17 10:00 36.3 81 26 104/76 (85) 92 Mechanical Ventilator 30 110/68 (82) 04/01/17 09:21 30 04/01/17 09:07 Mechanical Ventilator 30 04/01/17 08:00 36.5 93 26 125/88 (100) 92 Mechanical Ventilator 30 04/01/17 08:00 100 Mechanical Ventilator 30 04/01/17 08:00 30 04/01/17 07:25 30 04/01/17 06:01 36.5 92 26 131/75 (93) 98 04/01/17 06:00 36.5 93 26 130/76 (94) 04/01/17 05:46 36.6 94 26 275/275 (275) 98 04/01/17 05:31 36.5 93 26 126/74 (91) 97 04/01/17 05:16 36.6 93 26 115/68 (84) 96 04/01/17 05:02 30 04/01/17 05:01 36.8 94 26 106/62 (77) 98 04/01/17 05:00 36.8 92 26 104/60 (75) 99 04/01/17 04:03 100 Mechanical Ventilator 50 04/01/17 04:03 50 04/01/17 04:00 37.0 93 26 92/56 (68) Mechanical Ventilator 30 04/01/17 03:00 37.0 96 26 105/61 (76) 96 Mechanical Ventilator 30 04/01/17 02:31 37.0 99 26 106/63 (77) 98 Mechanical Ventilator 30 04/01/17 02:16 40 04/01/17 02:00 37.0 100 26 112/66 (81) Mechanical Ventilator 40 04/01/17 01:16 37.0 101 26 117/69 (85) 100 Mechanical Ventilator 40 04/01/17 01:00 37.0 101 26 116/69 (85) Mechanical Ventilator 40 04/01/17 00:46 37.0 103 26 153/82 (105) 100 Mechanical Ventilator 40 150/89 (109) 04/01/17 00:37 100 Mechanical Ventilator 50 04/01/17 00:37 50 04/01/17 00:31 37.0 103 26 135/75 (95) 100 04/01/17 00:30 37.0 102 26 134/76 (95) 04/01/17 00:16 37.0 103 26 134/75 (94) 100 04/01/17 00:01 36.9 103 26 135/76 (95) 100 03/31/17 23:46 36.9 103 26 128/73 (91) 100 03/31/17 23:31 36.9 103 26 117/66 (83) 100 03/31/17 23:30 37.0 102 26 117/66 (83) 100 03/31/17 23:17 60 03/31/17 23:16 37.0 104 26 119/68 (85) 100 03/31/17 23:01 37.1 104 26 122/70 (87) 100 03/31/17 22:46 37.1 101 26 114/66 (82) 100 03/31/17 22:31 37.1 100 26 71/43 (52) 100 03/31/17 22:30 37.1 101 26 85/51 (62) 100 03/31/17 22:00 37.0 105 26 110/64 (79) 100 03/31/17 21:46 37.0 105 26 107/62 (77) 100 03/31/17 21:31 37.0 106 26 102/59 (73) 100 03/31/17 21:30 37.0 105 26 105/60 (75) 100 03/31/17 21:16 37.0 105 26 105/60 (75) 100 03/31/17 21:01 37.0 107 26 103/59 (74) 99 03/31/17 21:00 37.0 106 26 103/59 (74) 99 03/31/17 20:46 37.0 109 26 123/66 (85) 100 03/31/17 20:31 37.0 110 26 122/65 (84) 99 03/31/17 20:30 37.0 109 26 120/64 (82) 99 03/31/17 20:20 100 Mechanical Ventilator 50 03/31/17 20:20 50 03/31/17 20:16 37.1 110 26 123/65 (84) 99 03/31/17 20:01 37.0 109 26 120/62 (81) 100 03/31/17 20:00 60 03/31/17 20:00 37.0 109 26 122/64 (83) 100 03/31/17 19:46 37.0 109 26 116/60 (78) 100 03/31/17 19:45 108 26 100 Mechanical Ventilator 60 03/31/17 19:40 60 03/31/17 19:31 37.0 108 26 116/60 (78) 100 03/31/17 19:30 37.1 107 14 112/60 (77) 100 03/31/17 19:16 37.1 108 26 110/56 (74) 100 03/31/17 19:01 37.1 110 26 115/61 (79) 100 03/31/17 19:00 37.1 109 26 117/61 (79) 03/31/17 18:49 37.1 118 20 110/59 (76) 100 03/31/17 18:46 37.1 109 20 /67 (45) 100 03/31/17 18:35 109 20 /73 (49) 100 03/31/17 18:30 0 03/31/17 18:00 0 111/59 (76) 100 Mechanical Ventilator 80 03/31/17 17:46 37.1 108 20 104/55 (71) 100 03/31/17 17:31 37.1 108 20 99/52 (68) 100 03/31/17 17:30 37.1 107 20 94/50 (65) 100 03/31/17 17:16 37.0 107 20 98/51 (67) 100 03/31/17 17:01 36.9 108 20 103/52 (69) 100 03/31/17 17:00 36.9 107 20 100/51 (67) 03/31/17 16:45 36.8 106 95/53 (67) 100 Mechanical Ventilator 80 97/50 (66) 03/31/17 16:42 100 Mechanical Ventilator 03/31/17 16:00 80 03/31/17 14:44 100 03/31/17 14:31 35.4 105 22 82/36 (51) 100 03/31/17 14:30 35.4 103 22 81/36 (51) 03/31/17 14:19 35.3 94 20 63/20 (34) 03/31/17 14:16 35.3 94 24 56/21 (33) 71 03/31/17 14:15 35.3 93 22 57/20 (32) 71 03/31/17 14:01 35.0 101 23 81/37 (52) 93 03/31/17 14:00 35.0 101 23 82/39 (53) 95 03/31/17 13:40 36.9 101 22 83/39 92 Mechanical Ventilator 03/31/17 12:46 34.5 89 15 87/43 (58) 96 03/31/17 12:45 34.5 89 20 83/40 (54) 95 03/31/17 12:31 34.5 86 18 75/34 (48) 100 03/31/17 12:30 34.5 86 21 73/34 (47) 100 03/31/17 12:16 34.6 85 18 68/1 (23) 87 03/31/17 12:15 34.5 86 21 58/20 (33) 03/31/17 12:01 94 25 89/42 (58) 95 03/31/17 12:00 93 9 95/47 (63) General Appearance: no apparent distress, + pertinent finding (sedated on mechanical ventilation) Head: + pertinent finding (edema of face noted, bruising on face) Laboratory Results 03/31/17 08:45 Red Blood Count 3.19, Mean Corpuscular Volume 114.1, Mean Corpuscular Hemoglobin 36.4, Mean Corpuscular Hemoglobin Concent 31.9, Mean Platelet Volume 10.6 03/31/17 12:26 Red Blood Count 2.43, Mean Corpuscular Volume 109.9, Mean Corpuscular Hemoglobin 37.0, Mean Corpuscular Hemoglobin Concent 33.7, Mean Platelet Volume 9.9 03/31/17 18:35 Red Blood Count 2.32, Mean Corpuscular Volume 110.8, Mean Corpuscular Hemoglobin 37.9, Mean Corpuscular Hemoglobin Concent 34.2, Mean Platelet Volume 10.9 04/01/17 00:13 Red Blood Count 1.98, Mean Corpuscular Volume 109.6, Mean Corpuscular Hemoglobin 36.4, Mean Corpuscular Hemoglobin Concent 33.2, Mean Platelet Volume 11.8, Neutrophils (%) (Auto) 65.5, Lymphocytes (%) (Auto) 25.3, Monocytes (%) ( Auto) 8.0, Eosinophils (%) (Auto) 0.6, Basophils (%) (Auto) 0.3, Neutrophils # ( Auto) 2.31, Lymphocytes # (Auto) 0.89, Monocytes # (Auto) 0.28, Eosinophils # ( Auto) 0.02, Basophils # (Auto) 0.01 04/01/17 05:48 Red Blood Count 2.01, Mean Corpuscular Volume 107.0, Mean Corpuscular Hemoglobin 37.8, Mean Corpuscular Hemoglobin Concent 35.3, Mean Platelet Volume 11.5, Neutrophils (%) (Auto) 55.7, Lymphocytes (%) (Auto) 23.7, Monocytes (%) ( Auto) 12.6, Eosinophils (%) (Auto) 0.2, Basophils (%) (Auto) 0.2, Neutrophils # (Auto) 2.55, Lymphocytes # (Auto) 1.09, Monocytes # (Auto) 0.58, Eosinophils # ( Auto) 0.01, Basophils # (Auto) 0.01 03/31/17 08:45 03/31/17 15:09 03/31/17 18:35 03/31/17 21:02 04/01/17 00:13 04/01/17 05:48 Test 03/31/17 00:00 03/31/17 08:45 03/31/17 08:47 03/31/17 08:50 Stool Occult Blood POSITIVE (NEGATIVE) White Blood Count 10.59 K/uL (4.8-10.8) Red Blood Count 3.19 M/uL (4.2-5.4) Hemoglobin 11.6 g/dL (12.0-16.0) Hematocrit 36.4 % (37-47) Mean Corpuscular Volume 114.1 fL (80-100) Mean Corpuscular Hemoglobin 36.4 pg (25-34) Mean Corpuscular Hemoglobin Concent 31.9 g/dl (32-36) Platelet Count 122 K/uL (130-400) Mean Platelet Volume 10.6 fL (7.4-10.4) RDW Standard Deviation 65.0 fL (36.4-46.3) RDW Coefficient of Variation 15.6 % (11.5-14.5) Nucleated RBC Absolute Count (auto) 0.12 K/uL (0-0) Neutrophils % (Manual) 32.2 % Lymphocytes % (Manual) 62.6 % Monocytes % (Manual) 1.7 % Metamyelocytes % 3.5 % Nucleated Red Blood Cells % 1.1 % Neutrophils # (Manual) 3.41 K/uL (1.4-6.5) Total Absolute Neutrophils 3.41 K/uL (1.4-6.5) Lymphocytes # (Manual) 6.63 K/uL (1.2-3.4) Total Absolute Lymphocytes 6.63 K/uL (1.2-3.4) Monocytes # (Manual) 0.18 K/uL (0.11-0.59) Metamyelocytes # 0.37 K/uL (0-0) Polychromasia 1+ Macrocytosis PRESENT Prothrombin Time 10.6 SECONDS (9.0-12.0) Prothromb Time International Ratio 1.0 (0.9-1.1) Activated Partial Thromboplast Time 25.0 SECONDS (21.0-31.0) Partial Thromboplastin Ratio 1.0 Anion Gap 17.0 mmol/L (3-11) Est Creatinine Clear Calc Drug Dose 29.1 ml/min Estimated GFR () 32.4 Estimated GFR (Non- 28.0 BUN/Creatinine Ratio 11.7 (10-20) Calcium Level 9.3 mg/dl (8.5-10.1) Magnesium Level 2.5 mg/dl (1.8-2.4) Total Bilirubin 0.5 mg/dl (0.2-1) Direct Bilirubin 0.3 mg/dl (0-0.2) Aspartate Amino Transf (AST/SGOT) 83 U/L (15-37) Alanine Aminotransferase (ALT/SGPT) 139 U/L (12-78) Alkaline Phosphatase 357 U/L (45-117) Total Creatine Kinase 186 U/L (26-192) Creatine Kinase MB 3.9 ng/ml (0.5-3.6) Creatine Kinase MB Ratio 2.1 (0-3.0) Total Protein 6.0 gm/dl (6.4-8.2) Albumin 2.9 gm/dl (3.4-5.0) Procalcitonin 32.25 ng/ml (0-0.5) Cortisol AM Sample 7.64 mcg/dl (4.30-22.40) Bedside Glucose 214 mg/dl (70-90) Bedside Prothrombin Time INR 0.9 (0.9-1.1) Test 03/31/17 08:51 03/31/17 08:55 03/31/17 08:56 03/31/17 09:41 Bedside Hemoglobin 11.2 g/dl (12.0-16.0) 6.8 g/dl (12.0-16.0) Bedside Hematocrit 33 % (37-47) 20 % (37-47) Bedside Sodium 139 mEq/L (135-144) 141 mEq/L (135-144) Bedside Potassium 3.2 mEq/L (3.3-5.0) 2.6 mEq/L (3.3-5.0) Bedside Chloride 102 mEq/L (101-112) Bedside Total CO2 21 mEq/l (24-31) Anion Gap 19.0 mmol/L (16-25) Bedside Blood Urea Nitrogen 22 mg/dl (7-18) Bedside Creatinine 1.6 mg/dl (0.6-1.3) Bedside Glucose (other) 220 mg/dl (70-99) Bedside Ionized Calcium (Alli) 1.34 mmol/l (1.12-1.32) Bedside Lactic Acid Venous 8.96 mmol/L (0.90-1.70) Bedside Troponin I 0.180 ng/ml (0-0.045) Bedside Blood Gas pH (LAB) 7.24 (7.35-7.45) Bedside Blood Gas pCO2 (LAB) 37 mmHg (35-46) Bedside Blood Gas pO2 (LAB) 229 mmHg (80-95) Bedside Blood Gas HCO3 (LAB) 16 meq/L (19-24) Bedside Blood Gas Total CO2 17 mEq/l (24-31) Bedside Blood Gas Base Excess (LAB) -12.0 meq/L (-9-1.8) Bedside Blood Gas O2 Saturation 100.0 % (90-95) Test 03/31/17 09:50 03/31/17 11:40 03/31/17 12:24 03/31/17 12:26 CSF Color COLORLESS CSF Appearance CLEAR CSF WBC 0 /uL (0-5) CSF RBC 0 /uL (0) CSF Xanthrochromic NO XANTHOCHROMIA CSF Cell Count Tube # 4 CSF Chemistry Tube # 2 CSF Glucose 87 mg/dl (40-70) CSF Total Protein 60.1 mg/dl (15.0-45.0) Urine Color YELLOW Urine Appearance CLEAR (CLEAR) Urine pH 7.0 (4.5-7.5) Urine Specific [place] 1.016 (1.000-1.030) Urine Protein TRACE (NEG) Urine Glucose (UA) NEG (NEG) Urine Ketones NEG (NEG) Urine Occult Blood NEG (NEG) Urine Nitrite POS (NEG) Urine Bilirubin NEG (NEG) Urine Urobilinogen NEG (NEG) Urine Leukocyte Esterase NEG (NEG) Urine WBC (Auto) 0 /hpf (0-5) Urine RBC (Auto) 0-4 /hpf (0-4) Urine Hyaline Casts (Auto) 1-5 /lpf (0-5) Urine Epithelial Cells (Auto) 5-10 /lpf (0-5) Urine Bacteria (Auto) NEG (NEG) Urine Opiates Screen NEG (NEG) Urine Methadone, Qualitative NEG (NEG) Urine Barbiturates NEG (NEG) Urine Phencyclidine (PCP) Level NEG (NEG) Ur Amphetamine/Methamphetamine NEG (NEG) MDMA (Ecstasy) Screen NEG (NEG) Urine Benzodiazepines Screen NEG (NEG) Urine Cocaine Metabolite NEG (NEG) Urine Marijuana (THC) NEG (NEG) Blood Gas Sample Site Art Line Bedside Blood Gas pH (LAB) 7.26 (7.35-7.45) Bedside Blood Gas pCO2 (LAB) 29 mmHg (35-46) Bedside Blood Gas pO2 (LAB) 51 mmHg (80-95) Bedside Blood Gas HCO3 (LAB) 14 meq/L (19-24) Bedside Blood Gas Total CO2 14 mEq/l (24-31) Bedside Blood Gas Base Excess (LAB) -14.0 meq/L (-9-1.8) Bedside Blood Gas O2 Saturation 86.0 % (90-95) Froy Test NA Oxygen Delivery Device Ventilator Bedside Oxygen Rate (breaths/min) 12 Blood Gas Minute Ventilation 6 Bedside FiO2 70 % Blood Gas Tidal Volume 500 Blood Gas PEEP 5 White Blood Count 4.90 K/uL (4.8-10.8) Red Blood Count 2.43 M/uL (4.2-5.4) Hemoglobin 9.0 g/dL (12.0-16.0) Hematocrit 26.7 % (37-47) Mean Corpuscular Volume 109.9 fL (80-100) Mean Corpuscular Hemoglobin 37.0 pg (25-34) Mean Corpuscular Hemoglobin Concent 33.7 g/dl (32-36) Platelet Count 74 K/uL (130-400) Mean Platelet Volume 9.9 fL (7.4-10.4) RDW Standard Deviation 61.0 fL (36.4-46.3) RDW Coefficient of Variation 15.4 % (11.5-14.5) Nucleated RBC Absolute Count (auto) 0.14 K/uL (0-0) Neutrophils % (Manual) 33.3 % Lymphocytes % (Manual) 64.0 % Monocytes % (Manual) 0.9 % Basophils % (Manual) 0.9 % Myelocytes % 0.9 % Nucleated Red Blood Cells % 2.9 % Neutrophils # (Manual) 1.63 K/uL (1.4-6.5) Total Absolute Neutrophils 1.63 K/uL (1.4-6.5) Lymphocytes # (Manual) 3.14 K/uL (1.2-3.4) Total Absolute Lymphocytes 3.14 K/uL (1.2-3.4) Monocytes # (Manual) 0.04 K/uL (0.11-0.59) Basophils # (Manual) 0.04 K/uL (0-0.2) Myelocytes # 0.04 K/uL (0-0) Hypersegmented Polys 1+ Dohle Bodies 1+ Platelet Estimate DECREASED Large Platelets 1+ Tear Drop Cells 1+ Peripheral Blood Smear Path Consult Lactic Acid Level 4.9 mmol/L (0.4-2.0) Ionized Calcium 1.06 mmol/l (1.12-1.32) Amylase Level 52 U/L (25-115) Lipase 60 U/L (73-393) Test 03/31/17 15:09 03/31/17 15:13 03/31/17 16:08 03/31/17 16:11 Anion Gap 16.0 mmol/L (3-11) Est Creatinine Clear Calc Drug Dose 36.8 ml/min Estimated GFR () 43.1 Estimated GFR (Non- 37.2 BUN/Creatinine Ratio 15.6 (10-20) Lactic Acid Level 5.5 mmol/L (0.4-2.0) Calcium Level 8.6 mg/dl (8.5-10.1) Phosphorus Level 5.4 mg/dl (2.5-4.9) Magnesium Level 1.7 mg/dl (1.8-2.4) Total Bilirubin 0.6 mg/dl (0.2-1) Aspartate Amino Transf (AST/SGOT) 295 U/L (15-37) Alanine Aminotransferase (ALT/SGPT) 165 U/L (12-78) Alkaline Phosphatase 253 U/L (45-117) Total Creatine Kinase 1975 U/L (26-192) Creatine Kinase MB 50.0 ng/ml (0.5-3.6) Creatine Kinase MB Ratio 2.5 (0-3.0) Troponin I 0.432 ng/ml (0-0.045) Total Protein 4.4 gm/dl (6.4-8.2) Albumin 2.0 gm/dl (3.4-5.0) Globulin 2.4 gm/dl (2.5-4.0) Albumin/Globulin Ratio 0.8 (0.9-2) Beta-Hydroxybutyric Acid 0.75 mg/dL (0.2-2.81) Thyroid Stimulating Hormone (TSH) 4.560 uIu/ml (0.300-4.500) Blood Gas Sample Site Art Line Bedside Blood Gas pH (LAB) 7.14 (7.35-7.45) Bedside Blood Gas pCO2 (LAB) 39 mmHg (35-46) Bedside Blood Gas pO2 (LAB) 142 mmHg (80-95) Bedside Blood Gas HCO3 (LAB) 13 meq/L (19-24) Bedside Blood Gas Total CO2 14 mEq/l (24-31) Bedside Blood Gas Base Excess (LAB) -16.0 meq/L (-9-1.8) Bedside Blood Gas O2 Saturation 98.0 % (90-95) Froy Test NA Oxygen Delivery Device Ventilator Bedside Oxygen Rate (breaths/min) 20 Blood Gas Minute Ventilation 10 Bedside FiO2 100 % Blood Gas Tidal Volume 500 Blood Gas PEEP 12 Fibrinogen 352 mg/dl (184-400) Bedside Glucose 314 mg/dl (70-90) Test 03/31/17 18:35 03/31/17 18:59 03/31/17 19:42 03/31/17 20:47 White Blood Count 6.52 K/uL (4.8-10.8) Red Blood Count 2.32 M/uL (4.2-5.4) Hemoglobin 8.8 g/dL (12.0-16.0) Hematocrit 25.7 % (37-47) Mean Corpuscular Volume 110.8 fL (80-100) Mean Corpuscular Hemoglobin 37.9 pg (25-34) Mean Corpuscular Hemoglobin Concent 34.2 g/dl (32-36) Platelet Count 56 K/uL (130-400) Mean Platelet Volume 10.9 fL (7.4-10.4) RDW Standard Deviation 61.2 fL (36.4-46.3) RDW Coefficient of Variation 15.4 % (11.5-14.5) Nucleated RBC Absolute Count (auto) 0.36 K/uL (0-0) Neutrophils % (Manual) 66.5 % Lymphocytes % (Manual) 21.1 % Monocytes % (Manual) 5.3 % Basophils % (Manual) 1.8 % Metamyelocytes % 5.3 % Nucleated Red Blood Cells % 5.6 % Neutrophils # (Manual) 4.34 K/uL (1.4-6.5) Total Absolute Neutrophils 4.34 K/uL (1.4-6.5) Lymphocytes # (Manual) 1.38 K/uL (1.2-3.4) Total Absolute Lymphocytes 1.38 K/uL (1.2-3.4) Monocytes # (Manual) 0.35 K/uL (0.11-0.59) Basophils # (Manual) 0.12 K/uL (0-0.2) Metamyelocytes # 0.35 K/uL (0-0) Hypersegmented Polys 1+ Dohle Bodies 1+ Polychromasia 1+ Anisocytosis PRESENT Macrocytosis PRESENT Tear Drop Cells OCCASIONAL [place] Bodies OCCASIONAL Echinocytes 1+ Prothrombin Time 12.8 SECONDS (9.0-12.0) Prothromb Time International Ratio 1.2 (0.9-1.1) Activated Partial Thromboplast Time 40.4 SECONDS (21.0-31.0) Partial Thromboplastin Ratio 1.6 Fibrinogen 315 mg/dl (184-400) Anion Gap 13.0 mmol/L (3-11) Est Creatinine Clear Calc Drug Dose 36.8 ml/min Estimated GFR () 43.1 Estimated GFR (Non- 37.2 BUN/Creatinine Ratio 16.0 (10-20) Lactic Acid Level 4.4 mmol/L (0.4-2.0) Calcium Level 9.0 mg/dl (8.5-10.1) Ionized Calcium 1.41 mmol/l (1.12-1.32) Phosphorus Level 6.8 mg/dl (2.5-4.9) Magnesium Level 2.2 mg/dl (1.8-2.4) Total Bilirubin 0.9 mg/dl (0.2-1) Aspartate Amino Transf (AST/SGOT) 336 U/L (15-37) Alanine Aminotransferase (ALT/SGPT) 181 U/L (12-78) Alkaline Phosphatase 188 U/L (45-117) Total Protein 3.6 gm/dl (6.4-8.2) Albumin 1.6 gm/dl (3.4-5.0) Globulin 2.0 gm/dl (2.5-4.0) Albumin/Globulin Ratio 0.8 (0.9-2) Beta-Hydroxybutyric Acid 0.70 mg/dL (0.2-2.81) Blood Gas Sample Site Art Line Art Line Bedside Blood Gas pH (LAB) 7.10 (7.35-7.45) 7.16 (7.35-7.45) Bedside Blood Gas pCO2 (LAB) 36 mmHg (35-46) 30 mmHg (35-46) Bedside Blood Gas pO2 (LAB) 131 mmHg (80-95) 108 mmHg (80-95) Bedside Blood Gas HCO3 (LAB) 11 meq/L (19-24) 11 meq/L (19-24) Bedside Blood Gas Total CO2 12 mEq/l (24-31) 12 mEq/l (24-31) Bedside Blood Gas Base Excess (LAB) -18.0 meq/L (-9-1.8) -18.0 meq/L (-9-1.8) Bedside Blood Gas O2 Saturation 98.0 % (90-95) 97.0 % (90-95) Froy Test NA NA Oxygen Delivery Device Ventilator Ventilator Bedside Oxygen Rate (breaths/min) 20 26 Blood Gas Minute Ventilation 10 13.4 Bedside FiO2 80 % 50 % Blood Gas Tidal Volume 500 500 Blood Gas PEEP 12 12 Bedside Glucose (other) 373 mg/dl (70-99) Test 03/31/17 20:52 03/31/17 21:02 03/31/17 22:01 03/31/17 22:57 Bedside Glucose (other) 392 mg/dl (70-99) 385 mg/dl (70-99) 381 mg/dl (70-99) Anion Gap 15.0 mmol/L (3-11) Est Creatinine Clear Calc Drug Dose 36.8 ml/min Estimated GFR () 43.1 Estimated GFR (Non- 37.2 BUN/Creatinine Ratio 16.7 (10-20) Estimated Average Glucose 105 mg/dl Hemoglobin A1c 5.3 % (4.5-5.6) Lactic Acid Level 4.5 mmol/L (0.4-2.0) Calcium Level 8.0 mg/dl (8.5-10.1) Phosphorus Level 6.4 mg/dl (2.5-4.9) Magnesium Level 1.9 mg/dl (1.8-2.4) Total Bilirubin 1.2 mg/dl (0.2-1) Aspartate Amino Transf (AST/SGOT) 387 U/L (15-37) Alanine Aminotransferase (ALT/SGPT) 209 U/L (12-78) Alkaline Phosphatase 189 U/L (45-117) Total Creatine Kinase 1385 U/L (26-192) Creatine Kinase MB 36.3 ng/ml (0.5-3.6) Creatine Kinase MB Ratio 2.6 (0-3.0) Troponin I 0.340 ng/ml (0-0.045) Total Protein 4.6 gm/dl (6.4-8.2) Albumin 2.4 gm/dl (3.4-5.0) Globulin 2.2 gm/dl (2.5-4.0) Albumin/Globulin Ratio 1.1 (0.9-2) Beta-Hydroxybutyric Acid 0.78 mg/dL (0.2-2.81) Test 03/31/17 23:58 04/01/17 00:13 04/01/17 00:40 04/01/17 00:59 Bedside Glucose (other) 368 mg/dl (70-99) 348 mg/dl (70-99) White Blood Count 3.52 K/uL (4.8-10.8) Red Blood Count 1.98 M/uL (4.2-5.4) Hemoglobin 7.2 g/dL (12.0-16.0) Hematocrit 21.7 % (37-47) Mean Corpuscular Volume 109.6 fL (80-100) Mean Corpuscular Hemoglobin 36.4 pg (25-34) Mean Corpuscular Hemoglobin Concent 33.2 g/dl (32-36) Platelet Count 35 K/uL (130-400) Mean Platelet Volume 11.8 fL (7.4-10.4) Neutrophils (%) (Auto) 65.5 % Lymphocytes (%) (Auto) 25.3 % Monocytes (%) (Auto) 8.0 % Eosinophils (%) (Auto) 0.6 % Basophils (%) (Auto) 0.3 % Neutrophils # (Auto) 2.31 K/uL (1.4-6.5) Lymphocytes # (Auto) 0.89 K/uL (1.2-3.4) Monocytes # (Auto) 0.28 K/uL (0.11-0.59) Eosinophils # (Auto) 0.02 K/uL (0-0.5) Basophils # (Auto) 0.01 K/uL (0-0.2) RDW Standard Deviation 60.4 fL (36.4-46.3) RDW Coefficient of Variation 15.3 % (11.5-14.5) Immature Granulocyte % (Auto) 0.3 % Immature Granulocyte # (Auto) 0.01 K/uL (0.00-0.02) Nucleated RBC Absolute Count (auto) 0.28 K/uL (0-0) Nucleated Red Blood Cells % 7.9 % Polychromasia 1+ Basophilic Stippling 1+ Anion Gap 16.0 mmol/L (3-11) Est Creatinine Clear Calc Drug Dose 39.5 ml/min Estimated GFR () 46.9 Estimated GFR (Non- 40.5 BUN/Creatinine Ratio 16.7 (10-20) Lactic Acid Level 3.6 mmol/L (0.4-2.0) Calcium Level 7.4 mg/dl (8.5-10.1) Ionized Calcium 1.12 mmol/l (1.12-1.32) Phosphorus Level 5.1 mg/dl (2.5-4.9) Magnesium Level 1.7 mg/dl (1.8-2.4) Total Bilirubin 1.6 mg/dl (0.2-1) Aspartate Amino Transf (AST/SGOT) 368 U/L (15-37) Alanine Aminotransferase (ALT/SGPT) 209 U/L (12-78) Alkaline Phosphatase 161 U/L (45-117) Total Protein 4.6 gm/dl (6.4-8.2) Albumin 2.7 gm/dl (3.4-5.0) Globulin 1.9 gm/dl (2.5-4.0) Albumin/Globulin Ratio 1.4 (0.9-2) Beta-Hydroxybutyric Acid 0.70 mg/dL (0.2-2.81) Blood Gas Sample Site Art Line Bedside Blood Gas pH (LAB) 7.23 (7.35-7.45) Bedside Blood Gas pCO2 (LAB) 28 mmHg (35-46) Bedside Blood Gas pO2 (LAB) 100 mmHg (80-95) Bedside Blood Gas HCO3 (LAB) 12 meq/L (19-24) Bedside Blood Gas Total CO2 13 mEq/l (24-31) Bedside Blood Gas Base Excess (LAB) -16.0 meq/L (-9-1.8) Bedside Blood Gas O2 Saturation 97.0 % (90-95) Froy Test NA Oxygen Delivery Device Ventilator Blood Gas Minute Ventilation 13.3 Bedside FiO2 40 % Blood Gas Tidal Volume 500 Blood Gas PEEP 12 Test 04/01/17 01:58 04/01/17 02:58 04/01/17 03:52 04/01/17 03:59 Bedside Glucose (other) 305 mg/dl (70-99) 267 mg/dl (70-99) 230 mg/dl (70-99) Procalcitonin 26.75 ng/ml (0-0.5) Random Vancomycin Level 14.7 mcg/ml Test 04/01/17 04:59 04/01/17 05:40 04/01/17 05:48 04/01/17 05:57 Bedside Glucose (other) 181 mg/dl (70-99) 166 mg/dl (70-99) White Blood Count 4.59 K/uL (4.8-10.8) Red Blood Count 2.01 M/uL (4.2-5.4) Hemoglobin 7.6 g/dL (12.0-16.0) Hematocrit 21.5 % (37-47) Mean Corpuscular Volume 107.0 fL (80-100) Mean Corpuscular Hemoglobin 37.8 pg (25-34) Mean Corpuscular Hemoglobin Concent 35.3 g/dl (32-36) Platelet Count 26 K/uL (130-400) Mean Platelet Volume 11.5 fL (7.4-10.4) Neutrophils (%) (Auto) 55.7 % Lymphocytes (%) (Auto) 23.7 % Monocytes (%) (Auto) 12.6 % Eosinophils (%) (Auto) 0.2 % Basophils (%) (Auto) 0.2 % Neutrophils # (Auto) 2.55 K/uL (1.4-6.5) Lymphocytes # (Auto) 1.09 K/uL (1.2-3.4) Monocytes # (Auto) 0.58 K/uL (0.11-0.59) Eosinophils # (Auto) 0.01 K/uL (0-0.5) Basophils # (Auto) 0.01 K/uL (0-0.2) RDW Standard Deviation 61.1 fL (36.4-46.3) RDW Coefficient of Variation 15.6 % (11.5-14.5) Immature Granulocyte % (Auto) 7.6 % Immature Granulocyte # (Auto) 0.35 K/uL (0.00-0.02) Nucleated RBC Absolute Count (auto) 0.25 K/uL (0-0) Nucleated Red Blood Cells % 5.5 % Toxic Vacuolation 1+ Platelet Estimate SIGNIFIC DECREASED Polychromasia 1+ Macrocytosis PRESENT Anion Gap 15.0 mmol/L (3-11) Est Creatinine Clear Calc Drug Dose 42.5 ml/min Estimated GFR () 51.3 Estimated GFR (Non- 44.2 BUN/Creatinine Ratio 18.9 (10-20) Lactic Acid Level 4.6 mmol/L (0.4-2.0) Calcium Level 7.5 mg/dl (8.5-10.1) Ionized Calcium 1.06 mmol/l (1.12-1.32) Phosphorus Level 5.3 mg/dl (2.5-4.9) Magnesium Level 1.8 mg/dl (1.8-2.4) Total Bilirubin 2.0 mg/dl (0.2-1) Aspartate Amino Transf (AST/SGOT) 602 U/L (15-37) Alanine Aminotransferase (ALT/SGPT) 373 U/L (12-78) Alkaline Phosphatase 148 U/L (45-117) Total Protein 4.9 gm/dl (6.4-8.2) Albumin 2.9 gm/dl (3.4-5.0) Globulin 2.0 gm/dl (2.5-4.0) Albumin/Globulin Ratio 1.4 (0.9-2) Test 04/01/17 06:01 04/01/17 08:02 04/01/17 08:40 04/01/17 08:58 Blood Gas Sample Site Art Line Bedside Blood Gas pH (LAB) 7.26 (7.35-7.45) Bedside Blood Gas pCO2 (LAB) 26 mmHg (35-46) Bedside Blood Gas pO2 (LAB) 87 mmHg (80-95) Bedside Blood Gas HCO3 (LAB) 12 meq/L (19-24) Bedside Blood Gas Total CO2 12 mEq/l (24-31) Bedside Blood Gas Base Excess (LAB) -16.0 meq/L (-9-1.8) Bedside Blood Gas O2 Saturation 96.0 % (90-95) Froy Test NA Oxygen Delivery Device Ventilator Bedside Oxygen Rate (breaths/min) 26 Blood Gas Minute Ventilation 13.3 Bedside FiO2 30 % Blood Gas Tidal Volume 500 Blood Gas PEEP 12 Bedside Glucose (other) 127 mg/dl (70-99) 122 mg/dl (70-99) Osmolality 265 mOsm/kg (280-300) Random Cortisol 136.13 mcg/dl Test 04/01/17 10:54 04/01/17 11:11 04/01/17 11:14 Blood Gas Sample Site Art Line Bedside Blood Gas pH (LAB) 7.27 (7.35-7.45) Bedside Blood Gas pCO2 (LAB) 32 mmHg (35-46) Bedside Blood Gas pO2 (LAB) < 32 mmHg (80-95) Bedside Blood Gas HCO3 (LAB) 15 meq/L (19-24) Bedside Blood Gas Total CO2 16 mEq/l (24-31) Bedside Blood Gas Base Excess (LAB) -12.0 meq/L (-9-1.8) Bedside Blood Gas O2 Saturation 40.0 % (90-95) Froy Test NA Oxygen Delivery Device Ventilator Bedside Oxygen Rate (breaths/min) 28 Blood Gas Minute Ventilation 14.7 Bedside FiO2 40 % Blood Gas Tidal Volume 500 Blood Gas PEEP 12 Date/Time Source Procedure Growth Status 03/31/17 11:20 Nasal MRSA DNA Surveillance Screen - Final Specimen Negative for MRSA by DNA Probe Complete Head CT from 03/31/2017: 1. No acute intracranial abnormality. Negative for hemorrhage or territorial ischemia. 2. Mild background chronic microvascular ischemic changes. 3. Small right mastoid effusion with mild paranasal sinus disease. Chest x-ray from 03/31/2017: 1. Cardiomegaly without overt pulmonary edema. 2. Subsegmental left basilar opacity with mild blunting of the costophrenic angle may reflect atelectasis or airspace disease with small effusion. CT chest from 03/31/2017: 1. Limited study secondary to respiratory and patient motion. No acute fractureor pneumothorax identified. 2. Cardiomegaly with mild pulmonary edema and dependent consolidative opacities suggesting atelectasis, pneumonia or aspiration pneumonitis with trace pleural effusions. 3. Small pericardial effusion. 4. Right IJ hemodialysis catheter terminates in the right atrium. Endotracheal tube terminates above the level of the indira. CT of the C-spine from 03/31/2017: 1. No acute cervical spine fracture or subluxation. 2. Multilevel degenerative changes as above. 3. Interlobular septal thickening with groundglass opacities of the lung apices suggest pulmonary edema. 4. Right mastoid effusion. CT of the abdomen/pelvis from 03/31/2017: 1. No acute intra-abdominal or intrapelvic abnormality identified. No evidence of solid organ injury. 2. Mild central depression involving the L3 vertebral body with associated Schmorl's node appears chronic, however is new from 05/14/2016. No associated retropulsion. 3. Suggested mild gallbladder wall thickening without cholelithiasis is a nonspecific finding and be correlated with ultrasound if clinically indicated. 4. Trace pericardial and pleural effusions with bibasilar consolidation. CTA of the chest from 03/31/2017: 1. No evidence of aortic dissection or aneurysm. No evidence of pulmonary thromboembolic disease. 2. Cardiomegaly with mild pulmonary edema, small bilateral pleural effusions and trace pericardial effusion with left greater than right dependent bibasilar consolidation suggesting admixture of atelectasis and airspace disease. 3. Endotracheal and enteric tubes appear satisfactory as imaged. 4. Gallbladder wall thickening is noted with suggested fundal adenomyomatosis. Correlation with scheduled gallbladder ultrasound recommended. CTA of the abdomen/pelvis from 03/31/2017: 1. No aortic dissection or aneurysm. 2. Mild atheromatous plaquing of the aorta and iliac vasculature. There is soft tissue prominence involving the roth of the superior mesenteric artery with decreased luminal caliber involving the proximal and distal branches diffusely, notably at its origin, suspicious for underlying vasculitis. This could be correlated with laboratory values. No evidence of portal venous gas or pneumatosis. 3. Circumferential wall thickening of the gastric pylorus and proximal duodenum with increasing amount of edema within the mid mesentery and lesser sac is noted. These findings are nonspecific and may reflect infectious or inflammatory etiology. 4. Moderate to marked wall thickening of the gallbladder with 9 x 8 mm enhancing focus of the gallbladder fundus suggests fundal adenomyomatosis. Correlate with right upper quadrant ultrasound of same day. Venous Doppler from 03/31/2017: No sonographic evidence of deep venous thrombosis within the right or left lower extremity. Gallbladder ultrasound from 03/31/2017: 1. Marked circumferential edematous thickening of the gallbladder wall isredemonstrated measuring up to 1.2 cm without shadowing cholelithiasis. Material Stress Tester was unable to assess for sonographic Dasilva's sign secondary to patient's intubated status. Differential considerations would favor sequela of third spacing as noted on other studies of same day. Alternatively, acalculus acute cholecystitis among other etiologies may have a similar sonographic appearance. This can be correlated with follow-up nuclear medicine hepatobiliary scan. 2. No biliary ductal dilation. 3. Trace right pleural effusion noted. Assessment & Plan 1. Sepsis secondary to Staph Aureus, 2/2 blood cultures + * Urine culture + for staph aureus * CSF culture preliminarily negative to date * CSF fungal culture pending * Bilateral consolidative findings in lower lungs, possibly infectious per imaging * ICU team discussed with Dr. Vail yesterday about case, recommendation was to d/c tacrolimus in setting of sepsis and JAMIL * Acute LFT elevations thought to be secondary to shock liver * Management per ICU/rimary team- Vanco + Aztreonam + Clindamycin IV, also on Fluconazole IV * Acyclovir on hold per ICU team as CMV sepsis was not felt to be likely on admission (last CMV level on 03/22 was not detectable) * Discussed with SHANE Farfan in ICU about obtaining ID consult if ICU team in agreement 2. Pancytopenia * Likely secondary to bone marrow suppression from severe acute illness with sepsis * Specifically for PLT- fibrinogen level is normal * Patient recommended to receive irradiated blood products * Patient to get 2 units PLT irradiated today and 1 unit PRBC irradiated per ICU team * Monitor CBCD q8-12 hr with current acuity * Would recommend PRBC transfusion if Hgb in 7 g/dL range or less, PLT if 10K or less or if develops acute bleeding * Discussed with SHANE Farfan in ICU about ICU to ICU transfer of this patient to [facility] if her condition declines and/or unable to obtain the amount of irradiated products patient is going to require 3. 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 Dr. Mejia is attending desk assistant. Dr. Dockery will see patient in hospital. Plan of care discussed with both physicians. I performed history and physical examination of the patient. I have discussed the patient's case, impression and plan with Bernarda Johnson PA-C. Her note reflects my findings and plan. 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 Now she is admitted for staphylococcal aureus bacteremia, urine culture grew the same organism, port has been removed today, she presented with hypotension requiring intubation, her platelet count was around 120,000 yesterday morning, dropped down to around 26,000, hemoglobin level was also around 11 g/dL, dropped down to around 7.1 g/dL, received 2 units of irradiated platelet and 1 unit of blood, receiving 100% FiO2, stable hemodynamically, gradually weaning of the pressures, seen by ID, on a broad-spectrum antibiotic in the form of vancomycin, aztreonam and clindamycin, also on IV fluconazole, earlier CMV level was not detectable and so acyclovir has been discontinued during this hospitalization, tacrolimus is on hold as per recommendation from the transplant physician , received stress dose of steroid. She should receive irradiated blood products as needed and also communicate with the transplant physician at [facility] regarding the input about further management in her case. I also spoke with the patient 's who was at bedside and reviewed about her clinical condition. Will follow up. Dr. Matias Dockery Hem/Onc (This note was completed using the dictation program Fluency Direct. As such, there may be misspellings, word substitutions, or other variations that should not change the essence of the clinical content of this encounter note. If there is need for further clarification, please direct questions to the provider listed above.)
[2017-04-01] MEDS ORDERED: NURSING VERBAL MED ORDER ONE ×2 (12:30→19:30)
--- NOTE | 2017-04-01 12:36 | Progress Note ---
Progress Note Date of Service Apr 01, 2017. Progress Note ID Consult Dictated #[id number] A/P: 1. Severe Sepsis with MODS secondary to S. aureus, ? port, ? gb as source -Continue abx for now, follow culture -Needs echo, repeat cultures -Will follow, thank you
[2017-04-01] MEDS ORDERED: LIDOCAINE/EPINEPHRINE 1% 20 ML VIAL INJ ONE (12:45)
[2017-04-01] MEDS ORDERED: CASPOFUNGIN IV ONE (13:00)
--- NOTE | 2017-04-01 14:50 | Critical Care Progress Note ---
Critical Care Progress Note Date of Service Apr 01, 2017. ICU Day ICU Day Number: [address] Agee Subjective Patient is a 62-year-old female who was initially admitted to the ICU for septic shock and likely aspiration pneumonia. She was found to have an JAMIL and transaminitis. She is thrombocytopenic with a persistent lactic acidosis. Patient was intubated and remains on the ventilator with impressive settings. Patient remains on Levothroid, vasopressin, and epinephrine. She is currently covered with Azactam, vancomycin, clindamycin, and Diflucan. At the time of morning rounds, the patient was found to have gram-positive cocci bacteremia in 2 separate cultures. She remains intubated and sedated with Versed/Fentanyl. Unable to contribute to HPI. Objective VITAL SIGNS - Vital signs and nursing notes were reviewed. GENERAL - 62-year-old female appearing older than her stated age. Intubated and sedated. SKIN - Multiple areas of ecchymosis throughout. HEAD - NC/AT. LUNGS - Intubated with Mechanical Ventilatory Support. Chest wall symmetric. Decreased breath sounds throughout. CARDIAC - RRR with S1/S2. No murmur, rubs, or gallops appreciated. ABDOMEN - Abdominal contour flat without pulsations or visible masses. BS distant all four quadrants. NEUROLOGIC/PSYCH - Intubated/Sedated. Current SOFA Score SOFA Score Response (Comments) Value PaO2/FiO2 (mmHg) < 100 4 SaO2 / FIO2 67 - 141 3 Platelets (x10) < 50 3 Bilirubin (mg/dL) 2.0 - 5.9 2 [place] Coma Score 6 - 9 3 Level of Hypotension Dopamine < 5 mcq / dobutamine 2 Creatinine (mg/dL) 1.2 - 1.9 1 Total 18 Assessment & Plan (1) Unresponsiveness (2) Hypotension (3) Sepsis (4) Pancytopenia (5) AML (acute myeloblastic leukemia) (6) Hypothyroidism (7) Transaminitis (8) Takotsubo cardiomyopathy Reason Critically Ill: Gram-positive bacteremia and sepsis with septic shock requiring pressors x3. History complicated by AML with recent stem cell transplant. Remote history of Takotsubo cardiomyopathy. Neuro - * CAM ICU: POSITIVE * RASS: -4 * Sedated with Versed/Fentanyl - will attempt to wean as tolerated. Cardiac - * History of Takotsubo Cardiomyopathy. * Echo not suggestive of this phenomenon at this point. EF 60-65%. * Hypotension in the setting of septic shock. * Continue Pressors. Wean as tolerated. Respiratory - * Bilateral Pulmonary Infiltrates. * Requiring aggressive, invasive ventilatory management. Settings: 26/500/12/30 %. * Serial ABGs: AM 7.25/26.5/89/96%. * Will continue with antibiotic coverage. * Pulmonary toilet. * Monitor Mixed Venous Blood gasses q6h. GI - * Transaminitis - likely shock liver. * Patient with history of Autoimmune Hepatitis on chronic steroids. * History of ITP w/ subsequent Lower GIB. * Stool Guaiac POSITIVE. * Will continue to monitor for any bleeding. * Continue with IV Protonix. * Will consult GI in the setting of worsening LFTs and distended gallbladder. ? Cholangitis. ?ERCP. - Appreciate Consultation. * NPO at this point. * NG Tube in place. * CTA not suggestive of mesenteric ischemia. RENAL/LYTES - * Patient several Liters Positive. * Will d/c fluids at this point. * Will concentrate all IV medications. * Will add Serum Osm, FeNa, Urine Lytes, Urine Osm * Will continue to monitor electrolytes and correct appropriately. - * UA Demonstrates Staph Aureus. * Possible source of Sepsis. * Anabiotics discussed below. * Rajan Catheter in place for strict I&Os. ENDO - * Home use of Lantus (2 U on Med Rec). * Will continue with Insulin gtt as needed per protocol. * Hypothyroidism - Will check Free T3/4. HEME - * Pancytopenia. * H&H to be monitored q4h. * Will replace with 1 U Irradiated PRBCs. * Thrombocytopenia * Will treat with 2 U platelets with 2 U on hold. * Will check Fibrous Degradation Products. * Fibrinogen q4h. * Appreciate Hematology/Oncology Consultation. ID - * Gram + Cocci Bacteremia with Septic Shock - Possible Source Urine (Staph Aureus): * Will Continue with Vancomycin and Clindamycin. * Will Change Azactam to Zosyn. * Will Change Diflucan to Caspofungin. * Consulted General Surgery to Remove Hastings Catheter as possible source. * Will add Vitamin C, Thiamine, Hydrocortisone in the setting of severe sepsis. * Initial Hydrocortisone 50 mg bolus - will make 10 mg/hr gtt. * Appreciate ID Consult. LINES/IV ACCESS - * LEFT Subclavian * LEFT Axillary Arterial Line. DVT PROPHYLAXIS - * SDCs. * Will avoid chemical prophylaxis at this point. Will reassess. I have personally spent 45 minutes of critical care time in the direct management of this patient. This is a life/limb threatening event. This includes time spent evaluating patient, direct bedside care, chart review, placing orders, interpretation of diagnostic studies, discussion with consultants, patient, and family members, as well as other required patient management activities. This time is exclusive of all separately billable procedures, and teaching time and separate from and in addition to any other critical care service time. Thank you for this consultation allow us to be part of this patient's care. Please refer to my attending physician's documentation for any further recommendations. I have personally evaluated and examined this patient. I agree with assessment and plan of Shannan Steen PA-C. Following [employer]. Limited bedside US lung: no pleural effusion, minimal b- line however no respiatory variation in IVC. Anticipate source control after removal of indwelling catheter. Advised of septic shock with multi- system dysfunction. Consults & Procedures Consultants: General Surgery - Dr. Nahomi LALA - LEONIDAS Tena Heme/Onc - Dr. Dockery Hospitalist - Melissa DELEON - Dr. Rivero Procedures: LEFT Subclavian LEFT Axillary Arterial Line Data Medications: Current Inpatient Medications Medications (Trade) Dose Ordered Sig/Adelaida Route Start Time Stop Time Status Last Admin Dose Admin Pantoprazole Sodium 40 mg/ Syringe 10 ml @ 5 mls/min DAILY@2100 IV 03/31/17 21:00 04/30/17 20:59 03/31/17 22:59 5 MLS/MIN Vasopressin 50 units/Sodium Chloride 502.5 ml @ 24 mls/hr [id number] IV 03/31/17 10:43 04/30/17 10:42 04/01/17 03:08 24 MLS/HR Epinephrine HCl 4 mg/Dextrose 254 ml @ 0 mls/hr Q0M IV 03/31/17 12:27 04/30/17 12:26 03/31/17 18:54 49.5 MLS/HR Glucose (Glucose 40% Gel) UD PRN PO 03/31/17 15:30 04/30/17 15:29 Glucose (Glucose Chew Tab) 1 tabs UD PRN PO 03/31/17 15:30 04/30/17 15:29 Dextrose (Dextrose 50% 50ML Syringe) 50 ml UD PRN IV 03/31/17 15:30 04/30/17 15:29 04/01/17 12:10 50 ML Glucagon (Glucagon Inj) 1 mg UD PRN SQ 03/31/17 15:30 04/30/17 15:29 Artificial Tears (Lacri-Lube Oph Oint) 1 appln Q8 OPB 03/31/17 22:00 04/30/17 21:59 04/01/17 05:06 1 APPLN Insulin Human Regular 250 units/ Sodium Chloride 252.5 ml @ 0 mls/hr DAILY@1130 IV 03/31/17 16:41 04/30/17 16:40 03/31/17 17:09 1.6 MLS/HR Ioversol (Optiray 320) 115 ml UD PRN IV 03/31/17 18:30 04/04/17 18:29 Levothyroxine Sodium 50 mcg/ Syringe 2.5 ml @ 2 mls/min DAILY@09 IV 04/01/17 09:00 05/01/17 08:59 04/01/17 09:19 2 MLS/MIN Sodium Bicarbonate 150 meq/Dextrose 1,150 ml @ 125 mls/hr Q9H12M IV 03/31/17 19:30 04/30/17 19:29 Future Hold 04/01/17 05:04 125 MLS/HR Heparin Sodium (Porcine) (Heparin 10 Unit/ ml 5 ml Flush) 5 ml PRN PRN FLUSH 03/31/17 23:30 04/30/17 23:29 Vancomycin HCl (Consult) 1 ea UD PRN N/A 04/01/17 03:00 05/01/17 02:59 Ipratropium [place] (Atrovent Hfa Inhaler) 4 puffs QIDR INH 04/01/17 12:00 05/01/17 11:59 04/01/17 11:16 4 PUFFS Albuterol (Ventolin Hfa Inhaler) 4 puffs QIDR INH 04/01/17 12:00 05/01/17 11:59 04/01/17 11:16 4 PUFFS Hydrocortisone Sodium Succinate 250 mg/Sodium Chloride 255 ml @ 10 mls/hr Q24H IV 04/01/17 09:15 05/01/17 09:14 04/01/17 12:38 10 MLS/HR Ascorbic Acid 1500 mg/Thiamine HCl 50 mg/Sodium Chloride 103.5 ml @ 206 mls/hr Q6H IV 04/01/17 09:00 04/05/17 03:31 04/01/17 09:19 206 MLS/HR Norepinephrine Bitartrate 8 mg/ Sodium Chloride 258 ml @ 0 mls/hr Q0M IV 04/01/17 11:00 05/01/17 10:59 Piperacillin Sod/ Tazobactam Sod 4.5 gm/Sodium Chloride 120 ml @ 28.75 mls/ hr Q8H IV 04/01/17 18:00 04/11/17 17:59 Fentanyl Citrate (Fentanyl Inj) 50 mcg Q2H PRN IV 04/01/17 12:00 04/15/17 11:59 Midazolam HCl (Versed Inj) 2 mg Q2H PRN IV 04/01/17 12:00 05/01/17 11:59 Clindamycin Phosphate 600 mg/ Sodium Chloride 54 ml @ 100 mls/hr Q8H IV 04/01/17 16:00 04/02/17 15:59 Caspofungin 50 mg/ Sodium Chloride 110 ml @ 110 mls/hr Q24H IV 04/02/17 13:00 04/16/17 12:59 I & O: 24-Hour Column 04/02/17 08:00 Intake Total 379 ml Balance 379 ml Vital Signs: Date Time Temp Pulse Resp B/P (MAP) Pulse Ox O2 Delivery O2 Flow Rate FiO2 04/01/17 14:22 36.4 79 28 96/59 83 04/01/17 12:00 100 Mechanical Ventilator 30 04/01/17 12:00 40 04/01/17 11:16 40 04/01/17 10:00 36.3 81 26 104/76 (85) 92 Mechanical Ventilator 30 110/68 (82) 04/01/17 09:21 30 04/01/17 09:07 Mechanical Ventilator 30 04/01/17 08:00 36.5 93 26 125/88 (100) 92 Mechanical Ventilator 30 04/01/17 08:00 100 Mechanical Ventilator 30 04/01/17 08:00 30 04/01/17 07:25 30 04/01/17 06:01 36.5 92 26 131/75 (93) 98 04/01/17 06:00 36.5 93 26 130/76 (94) 04/01/17 05:46 36.6 94 26 275/275 (275) 98 04/01/17 05:31 36.5 93 26 126/74 (91) 97 04/01/17 05:16 36.6 93 26 115/68 (84) 96 04/01/17 05:02 30 04/01/17 05:01 36.8 94 26 106/62 (77) 98 04/01/17 05:00 36.8 92 26 104/60 (75) 99 04/01/17 04:03 100 Mechanical Ventilator 50 04/01/17 04:03 50 04/01/17 04:00 37.0 93 26 92/56 (68) Mechanical Ventilator 30 04/01/17 03:00 37.0 96 26 105/61 (76) 96 Mechanical Ventilator 30 04/01/17 02:31 37.0 99 26 106/63 (77) 98 Mechanical Ventilator 30 04/01/17 02:16 40 04/01/17 02:00 37.0 100 26 112/66 (81) Mechanical Ventilator 40 04/01/17 01:16 37.0 101 26 117/69 (85) 100 Mechanical Ventilator 40 04/01/17 01:00 37.0 101 26 116/69 (85) Mechanical Ventilator 40 04/01/17 00:46 37.0 103 26 153/82 (105) 100 Mechanical Ventilator 40 150/89 (109) 04/01/17 00:37 100 Mechanical Ventilator 50 04/01/17 00:37 50 04/01/17 00:31 37.0 103 26 135/75 (95) 100 04/01/17 00:30 37.0 102 26 134/76 (95) 04/01/17 00:16 37.0 103 26 134/75 (94) 100 04/01/17 00:01 36.9 103 26 135/76 (95) 100 03/31/17 23:46 36.9 103 26 128/73 (91) 100 03/31/17 23:31 36.9 103 26 117/66 (83) 100 03/31/17 23:30 37.0 102 26 117/66 (83) 100 03/31/17 23:17 60 03/31/17 23:16 37.0 104 26 119/68 (85) 100 03/31/17 23:01 37.1 104 26 122/70 (87) 100 03/31/17 22:46 37.1 101 26 114/66 (82) 100 03/31/17 22:31 37.1 100 26 71/43 (52) 100 03/31/17 22:30 37.1 101 26 85/51 (62) 100 03/31/17 22:00 37.0 105 26 110/64 (79) 100 03/31/17 21:46 37.0 105 26 107/62 (77) 100 03/31/17 21:31 37.0 106 26 102/59 (73) 100 03/31/17 21:30 37.0 105 26 105/60 (75) 100 03/31/17 21:16 37.0 105 26 105/60 (75) 100 03/31/17 21:01 37.0 107 26 103/59 (74) 99 03/31/17 21:00 37.0 106 26 103/59 (74) 99 03/31/17 20:46 37.0 109 26 123/66 (85) 100 03/31/17 20:31 37.0 110 26 122/65 (84) 99 03/31/17 20:30 37.0 109 26 120/64 (82) 99 03/31/17 20:20 100 Mechanical Ventilator 50 03/31/17 20:20 50 03/31/17 20:16 37.1 110 26 123/65 (84) 99 03/31/17 20:01 37.0 109 26 120/62 (81) 100 03/31/17 20:00 60 03/31/17 20:00 37.0 109 26 122/64 (83) 100 03/31/17 19:46 37.0 109 26 116/60 (78) 100 03/31/17 19:45 108 26 100 Mechanical Ventilator 60 03/31/17 19:40 60 03/31/17 19:31 37.0 108 26 116/60 (78) 100 03/31/17 19:30 37.1 107 14 112/60 (77) 100 03/31/17 19:16 37.1 108 26 110/56 (74) 100 03/31/17 19:01 37.1 110 26 115/61 (79) 100 03/31/17 19:00 37.1 109 26 117/61 (79) 03/31/17 18:49 37.1 118 20 110/59 (76) 100 03/31/17 18:46 37.1 109 20 /67 (45) 100 03/31/17 18:35 109 20 /73 (49) 100 03/31/17 18:30 0 03/31/17 18:00 0 111/59 (76) 100 Mechanical Ventilator 80 03/31/17 17:46 37.1 108 20 104/55 (71) 100 03/31/17 17:31 37.1 108 20 99/52 (68) 100 03/31/17 17:30 37.1 107 20 94/50 (65) 100 03/31/17 17:16 37.0 107 20 98/51 (67) 100 03/31/17 17:01 36.9 108 20 103/52 (69) 100 03/31/17 17:00 36.9 107 20 100/51 (67) 03/31/17 16:45 36.8 106 95/53 (67) 100 Mechanical Ventilator 80 97/50 (66) 03/31/17 16:42 100 Mechanical Ventilator 03/31/17 16:00 80 03/31/17 14:44 100 03/31/17 14:31 35.4 105 22 82/36 (51) 100 Laboratory Results: Last 24 Hours Test 03/31/17 15:09 03/31/17 15:13 03/31/17 16:08 03/31/17 16:11 Sodium Level 140 mmol/L Potassium Level 3.6 mmol/L Chloride Level 110 mmol/L Carbon Dioxide Level 14 mmol/L Anion Gap 16.0 mmol/L Blood Urea Nitrogen 23 mg/dl Creatinine 1.50 mg/dl Est Creatinine Clear Calc Drug Dose 36.8 ml/min Estimated GFR () 43.1 Estimated GFR (Non- 37.2 BUN/Creatinine Ratio 15.6 Random Glucose 301 mg/dl Lactic Acid Level 5.5 mmol/L Calcium Level 8.6 mg/dl Phosphorus Level 5.4 mg/dl Magnesium Level 1.7 mg/dl Total Bilirubin 0.6 mg/dl Aspartate Amino Transf (AST/SGOT) 295 U/L Alanine Aminotransferase (ALT/SGPT) 165 U/L Alkaline Phosphatase 253 U/L Total Creatine Kinase 1975 U/L Creatine Kinase MB 50.0 ng/ml Creatine Kinase MB Ratio 2.5 Troponin I 0.432 ng/ml Total Protein 4.4 gm/dl Albumin 2.0 gm/dl Globulin 2.4 gm/dl Albumin/Globulin Ratio 0.8 Beta-Hydroxybutyric Acid 0.75 mg/dL Thyroid Stimulating Hormone (TSH) 4.560 uIu/ml Blood Gas Sample Site Art Line Bedside Blood Gas pH (LAB) 7.14 Bedside Blood Gas pCO2 (LAB) 39 mmHg Bedside Blood Gas pO2 (LAB) 142 mmHg Bedside Blood Gas HCO3 (LAB) 13 meq/L Bedside Blood Gas Total CO2 14 mEq/l Bedside Blood Gas Base Excess (LAB) -16.0 meq/L Bedside Blood Gas O2 Saturation 98.0 % Froy Test NA Oxygen Delivery Device Ventilator Bedside Oxygen Rate (breaths/min) 20 Blood Gas Minute Ventilation 10 Bedside FiO2 100 % Blood Gas Tidal Volume 500 Blood Gas PEEP 12 Fibrinogen 352 mg/dl Bedside Glucose 314 mg/dl Test 03/31/17 18:35 03/31/17 18:59 03/31/17 19:42 03/31/17 20:47 White Blood Count 6.52 K/uL Red Blood Count 2.32 M/uL Hemoglobin 8.8 g/dL Hematocrit 25.7 % Mean Corpuscular Volume 110.8 fL Mean Corpuscular Hemoglobin 37.9 pg Mean Corpuscular Hemoglobin Concent 34.2 g/dl Platelet Count 56 K/uL Mean Platelet Volume 10.9 fL RDW Standard Deviation 61.2 fL RDW Coefficient of Variation 15.4 % Nucleated RBC Absolute Count (auto) 0.36 K/uL Neutrophils % (Manual) 66.5 % Lymphocytes % (Manual) 21.1 % Monocytes % (Manual) 5.3 % Basophils % (Manual) 1.8 % Metamyelocytes % 5.3 % Nucleated Red Blood Cells % 5.6 % Neutrophils # (Manual) 4.34 K/uL Total Absolute Neutrophils 4.34 K/uL Lymphocytes # (Manual) 1.38 K/uL Total Absolute Lymphocytes 1.38 K/uL Monocytes # (Manual) 0.35 K/uL Basophils # (Manual) 0.12 K/uL Metamyelocytes # 0.35 K/uL Hypersegmented Polys 1+ Dohle Bodies 1+ Polychromasia 1+ Anisocytosis PRESENT Macrocytosis PRESENT Tear Drop Cells OCCASIONAL [place] Bodies OCCASIONAL Echinocytes 1+ Prothrombin Time 12.8 SECONDS Prothromb Time International Ratio 1.2 Activated Partial Thromboplast Time 40.4 SECONDS Partial Thromboplastin Ratio 1.6 Fibrinogen 315 mg/dl Sodium Level 133 mmol/L Potassium Level 4.7 mmol/L Chloride Level 107 mmol/L Carbon Dioxide Level 13 mmol/L Anion Gap 13.0 mmol/L Blood Urea Nitrogen 24 mg/dl Creatinine 1.50 mg/dl Est Creatinine Clear Calc Drug Dose 36.8 ml/min Estimated GFR () 43.1 Estimated GFR (Non- 37.2 BUN/Creatinine Ratio 16.0 Random Glucose 382 mg/dl Lactic Acid Level 4.4 mmol/L Calcium Level 9.0 mg/dl Ionized Calcium 1.41 mmol/l Phosphorus Level 6.8 mg/dl Magnesium Level 2.2 mg/dl Total Bilirubin 0.9 mg/dl Aspartate Amino Transf (AST/SGOT) 336 U/L Alanine Aminotransferase (ALT/SGPT) 181 U/L Alkaline Phosphatase 188 U/L Total Protein 3.6 gm/dl Albumin 1.6 gm/dl Globulin 2.0 gm/dl Albumin/Globulin Ratio 0.8 Beta-Hydroxybutyric Acid 0.70 mg/dL Blood Gas Sample Site Art Line Art Line Bedside Blood Gas pH (LAB) 7.10 7.16 Bedside Blood Gas pCO2 (LAB) 36 mmHg 30 mmHg Bedside Blood Gas pO2 (LAB) 131 mmHg 108 mmHg Bedside Blood Gas HCO3 (LAB) 11 meq/L 11 meq/L Bedside Blood Gas Total CO2 12 mEq/l 12 mEq/l Bedside Blood Gas Base Excess (LAB) -18.0 meq/L -18.0 meq/L Bedside Blood Gas O2 Saturation 98.0 % 97.0 % Froy Test NA NA Oxygen Delivery Device Ventilator Ventilator Bedside Oxygen Rate (breaths/min) 20 26 Blood Gas Minute Ventilation 10 13.4 Bedside FiO2 80 % 50 % Blood Gas Tidal Volume 500 500 Blood Gas PEEP 12 12 Bedside Glucose (other) 373 mg/dl Test 03/31/17 20:52 03/31/17 21:02 03/31/17 22:01 03/31/17 22:57 Bedside Glucose (other) 392 mg/dl 385 mg/dl 381 mg/dl Sodium Level 131 mmol/L Potassium Level 4.6 mmol/L Chloride Level 104 mmol/L Carbon Dioxide Level 12 mmol/L Anion Gap 15.0 mmol/L Blood Urea Nitrogen 25 mg/dl Creatinine 1.50 mg/dl Est Creatinine Clear Calc Drug Dose 36.8 ml/min Estimated GFR () 43.1 Estimated GFR (Non- 37.2 BUN/Creatinine Ratio 16.7 Random Glucose 400 mg/dl Estimated Average Glucose 105 mg/dl Hemoglobin A1c 5.3 % Lactic Acid Level 4.5 mmol/L Calcium Level 8.0 mg/dl Phosphorus Level 6.4 mg/dl Magnesium Level 1.9 mg/dl Total Bilirubin 1.2 mg/dl Aspartate Amino Transf (AST/SGOT) 387 U/L Alanine Aminotransferase (ALT/SGPT) 209 U/L Alkaline Phosphatase 189 U/L Total Creatine Kinase 1385 U/L Creatine Kinase MB 36.3 ng/ml Creatine Kinase MB Ratio 2.6 Troponin I 0.340 ng/ml Total Protein 4.6 gm/dl Albumin 2.4 gm/dl Globulin 2.2 gm/dl Albumin/Globulin Ratio 1.1 Beta-Hydroxybutyric Acid 0.78 mg/dL Test 03/31/17 23:58 04/01/17 00:13 04/01/17 00:40 04/01/17 00:59 Bedside Glucose (other) 368 mg/dl 348 mg/dl White Blood Count 3.52 K/uL Red Blood Count 1.98 M/uL Hemoglobin 7.2 g/dL Hematocrit 21.7 % Mean Corpuscular Volume 109.6 fL Mean Corpuscular Hemoglobin 36.4 pg Mean Corpuscular Hemoglobin Concent 33.2 g/dl Platelet Count 35 K/uL Mean Platelet Volume 11.8 fL Neutrophils (%) (Auto) 65.5 % Lymphocytes (%) (Auto) 25.3 % Monocytes (%) (Auto) 8.0 % Eosinophils (%) (Auto) 0.6 % Basophils (%) (Auto) 0.3 % Neutrophils # (Auto) 2.31 K/uL Lymphocytes # (Auto) 0.89 K/uL Monocytes # (Auto) 0.28 K/uL Eosinophils # (Auto) 0.02 K/uL Basophils # (Auto) 0.01 K/uL RDW Standard Deviation 60.4 fL RDW Coefficient of Variation 15.3 % Immature Granulocyte % (Auto) 0.3 % Immature Granulocyte # (Auto) 0.01 K/uL Nucleated RBC Absolute Count (auto) 0.28 K/uL Nucleated Red Blood Cells % 7.9 % Polychromasia 1+ Basophilic Stippling 1+ Sodium Level 132 mmol/L Potassium Level 4.0 mmol/L Chloride Level 104 mmol/L Carbon Dioxide Level 12 mmol/L Anion Gap 16.0 mmol/L Blood Urea Nitrogen 23 mg/dl Creatinine 1.40 mg/dl Est Creatinine Clear Calc Drug Dose 39.5 ml/min Estimated GFR () 46.9 Estimated GFR (Non- 40.5 BUN/Creatinine Ratio 16.7 Random Glucose 354 mg/dl Lactic Acid Level 3.6 mmol/L Calcium Level 7.4 mg/dl Ionized Calcium 1.12 mmol/l Phosphorus Level 5.1 mg/dl Magnesium Level 1.7 mg/dl Total Bilirubin 1.6 mg/dl Aspartate Amino Transf (AST/SGOT) 368 U/L Alanine Aminotransferase (ALT/SGPT) 209 U/L Alkaline Phosphatase 161 U/L Total Protein 4.6 gm/dl Albumin 2.7 gm/dl Globulin 1.9 gm/dl Albumin/Globulin Ratio 1.4 Beta-Hydroxybutyric Acid 0.70 mg/dL Blood Gas Sample Site Art Line Bedside Blood Gas pH (LAB) 7.23 Bedside Blood Gas pCO2 (LAB) 28 mmHg Bedside Blood Gas pO2 (LAB) 100 mmHg Bedside Blood Gas HCO3 (LAB) 12 meq/L Bedside Blood Gas Total CO2 13 mEq/l Bedside Blood Gas Base Excess (LAB) -16.0 meq/L Bedside Blood Gas O2 Saturation 97.0 % Froy Test NA Oxygen Delivery Device Ventilator Blood Gas Minute Ventilation 13.3 Bedside FiO2 40 % Blood Gas Tidal Volume 500 Blood Gas PEEP 12 Test 04/01/17 01:58 04/01/17 02:58 04/01/17 03:52 04/01/17 03:59 Bedside Glucose (other) 305 mg/dl 267 mg/dl 230 mg/dl Procalcitonin 26.75 ng/ml Random Vancomycin Level 14.7 mcg/ml Test 04/01/17 04:59 04/01/17 05:40 04/01/17 05:48 04/01/17 05:57 Bedside Glucose (other) 181 mg/dl 166 mg/dl White Blood Count 4.59 K/uL Red Blood Count 2.01 M/uL Hemoglobin 7.6 g/dL Hematocrit 21.5 % Mean Corpuscular Volume 107.0 fL Mean Corpuscular Hemoglobin 37.8 pg Mean Corpuscular Hemoglobin Concent 35.3 g/dl Platelet Count 26 K/uL Mean Platelet Volume 11.5 fL Neutrophils (%) (Auto) 55.7 % Lymphocytes (%) (Auto) 23.7 % Monocytes (%) (Auto) 12.6 % Eosinophils (%) (Auto) 0.2 % Basophils (%) (Auto) 0.2 % Neutrophils # (Auto) 2.55 K/uL Lymphocytes # (Auto) 1.09 K/uL Monocytes # (Auto) 0.58 K/uL Eosinophils # (Auto) 0.01 K/uL Basophils # (Auto) 0.01 K/uL RDW Standard Deviation 61.1 fL RDW Coefficient of Variation 15.6 % Immature Granulocyte % (Auto) 7.6 % Immature Granulocyte # (Auto) 0.35 K/uL Nucleated RBC Absolute Count (auto) 0.25 K/uL Nucleated Red Blood Cells % 5.5 % Toxic Vacuolation 1+ Platelet Estimate SIGNIFIC DECREASED Polychromasia 1+ Macrocytosis PRESENT Sodium Level 129 mmol/L Potassium Level 3.8 mmol/L Chloride Level 101 mmol/L Carbon Dioxide Level 13 mmol/L Anion Gap 15.0 mmol/L Blood Urea Nitrogen 25 mg/dl Creatinine 1.30 mg/dl Est Creatinine Clear Calc Drug Dose 42.5 ml/min Estimated GFR () 51.3 Estimated GFR (Non- 44.2 BUN/Creatinine Ratio 18.9 Random Glucose 175 mg/dl Lactic Acid Level 4.6 mmol/L Calcium Level 7.5 mg/dl Ionized Calcium 1.06 mmol/l Phosphorus Level 5.3 mg/dl Magnesium Level 1.8 mg/dl Total Bilirubin 2.0 mg/dl Aspartate Amino Transf (AST/SGOT) 602 U/L Alanine Aminotransferase (ALT/SGPT) 373 U/L Alkaline Phosphatase 148 U/L Total Protein 4.9 gm/dl Albumin 2.9 gm/dl Globulin 2.0 gm/dl Albumin/Globulin Ratio 1.4 Test 04/01/17 06:01 04/01/17 08:02 04/01/17 08:40 04/01/17 08:58 Blood Gas Sample Site Art Line Bedside Blood Gas pH (LAB) 7.26 Bedside Blood Gas pCO2 (LAB) 26 mmHg Bedside Blood Gas pO2 (LAB) 87 mmHg Bedside Blood Gas HCO3 (LAB) 12 meq/L Bedside Blood Gas Total CO2 12 mEq/l Bedside Blood Gas Base Excess (LAB) -16.0 meq/L Bedside Blood Gas O2 Saturation 96.0 % Froy Test NA Oxygen Delivery Device Ventilator Bedside Oxygen Rate (breaths/min) 26 Blood Gas Minute Ventilation 13.3 Bedside FiO2 30 % Blood Gas Tidal Volume 500 Blood Gas PEEP 12 Bedside Glucose (other) 127 mg/dl 122 mg/dl Osmolality 265 mOsm/kg Random Cortisol 136.13 mcg/dl Test 04/01/17 11:11 04/01/17 11:43 04/01/17 11:44 Blood Gas Sample Site Art Line Bedside Blood Gas pH (LAB) 7.27 Bedside Blood Gas pCO2 (LAB) 32 mmHg Bedside Blood Gas pO2 (LAB) < 32 mmHg Bedside Blood Gas HCO3 (LAB) 15 meq/L Bedside Blood Gas Total CO2 16 mEq/l Bedside Blood Gas Base Excess (LAB) -12.0 meq/L Bedside Blood Gas O2 Saturation 40.0 % Froy Test NA Oxygen Delivery Device Ventilator Bedside Oxygen Rate (breaths/min) 28 Blood Gas Minute Ventilation 14.7 Bedside FiO2 40 % Blood Gas Tidal Volume 500 Blood Gas PEEP 12 Fibrinogen 304 mg/dl Hemoglobin 7.1 g/dL Hematocrit 20.3 % Fibrin Degradation Products >40 mcg/ml Ionized Calcium 0.98 mmol/l Thyroxine (T4) 4.4 mcg/dl Free Triiodothyronine 1.09 pg/ml Problem Qualifiers (1) Hypotension: Hypotension type: unspecified hypotension type Qualified Codes: I95.9 - Hypotension, unspecified (2) Sepsis: Sepsis type: sepsis due to unspecified organism Qualified Codes: A41.9 - Sepsis, unspecified organism (3) AML (acute myeloblastic leukemia): Leukemia Active/Remission status: without remission Qualified Codes: C92.00 - Acute myeloblastic leukemia, not having achieved remission
--- NOTE | 2017-04-01 14:51 | DIAGNOSTIC IMAGING REPORT ---
CHEST ONE VIEW PORTABLE CLINICAL HISTORY: 62 years-old Female presenting with follow up. TECHNIQUE: Portable upright AP view of the chest was obtained. COMPARISON: 04/01/2017 at 6:50 AM. FINDINGS: Endotracheal tube terminates partially 2.5 cm above the indira. Nasogastric tube descends below the diaphragm, terminus not visualized. Left subclavian central line terminates in the SVC. Mildly low lung volumes with hypoventilatory changes. Slight prominence of the cardiac silhouette unchanged. Left mid to basilar opacity with associated small left pleural effusion also unchanged. No pneumothorax. Osseous structures normal. Upper abdomen normal. IMPRESSION: 1. Lines and tubes appropriately positioned. 2. Persistent left mid to basilar opacity with left pleural effusion. This could represent pneumonia. Electronically signed by: Gama Augustin M.D. 04/01/2017 2:50 PM Dictated Date/Time: 04/01/2017 2:48 PM
--- NOTE | 2017-04-01 14:56 | INFECT. DISEASE CONSULTATION ---
DATE OF CONSULTATION: 04/01/2017 REQUESTING PHYSICIAN: Dr. Lepe. HISTORY OF PRESENT ILLNESS: This is a 62-year-old female who was admitted yesterday after her found her unresponsive. He states they had been out to dinner on Saturday evening and she was doing well. She did not have any complaints at that time. She does have a complicated past medical history with recently diagnosed AML status post chemotherapy and recent stem cell transplant. She does have a port over her right chest which has not been used for several months. Her states it was placed in July. She is currently undergoing weekly dressing changes but otherwise has not been using her port. She had no fevers or chills prior to admission. Currently, the patient is intubated and on pressors and I am unable to obtain any history other than the family. Her sister and are at the bedside. He states that she was admitted to [facility] with neutropenic fever after she had chemo and was hospitalized for several weeks and treated for infection. She recently has been off antibiotics and has been home and doing well. He did speak with her transplant team yesterday and her recent bone marrow biopsy was encouraging for remission. She did have blood cultures obtained as part of her workup as she was hypothermic upon arrival to the hospital. Her blood cultures are growing Staph aureus. Urine culture from the ER is also growing Staph aureus. Final sensitivities are pending. She did undergo an LP as part of her initial workup. There were no white blood cells seen. Her Gram stain and culture are so far negative. She has been started on multiple empiric antibiotics consisting of fluconazole, vancomycin, caspofungin, clindamycin, and aztreonam. SHE DOES HAVE PENICILLIN AND SULFA ANTIBIOTIC ALLERGIES, REACTIONS ARE UNKNOWN. Her temperature has improved. Her blood pressure has improved on pressors. She is unresponsive on the ventilator. Her white blood cell count has been low. She is thrombocytopenic and anemic. Her LFTs have increased into the 300s, her CK was up into the 1900s at one point. Her urinalysis was unremarkable. Her lactic acid was as high as 5.5, it is trending down. Her procalcitonin is 26. No repeat cultures have been obtained at this time. She appears to be tolerating antibiotics without difficulty. PAST MEDICAL HISTORY: Significant for AML status post stem cell transplant, hypothyroidism, cardiomyopathy. PAST SURGICAL HISTORY: Significant for colonoscopy, anal surgery, and port placement. FAMILY HISTORY: Noncontributory. SOCIAL HISTORY: Negative for tobacco use, alcohol use or drug use. She is and lives with her . Per her , there have been no recent sick contacts. ALLERGIES: PENICILLIN AND SULFA WITH UNKNOWN REACTION. CURRENT MEDICATIONS: Include caspofungin, Zosyn, clindamycin, Atrovent, Ventolin, fentanyl, Versed, norepinephrine, hydrocortisone, levothyroxine, ascorbic acid, subQ heparin, Protonix, insulin, epinephrine and vasopressin. She has also received aztreonam, which is discontinued. Vancomycin. PHYSICAL EXAMINATION: VITAL SIGNS: Her current temperature is 36.3. She has been normotensive since the when she arrived in hypothermia, pulse 81, respiratory rate is in the 20s, blood pressure is 104/76, oxygen saturation is 92% on 30% FIO2. GENERAL: She is unresponsive on the ventilator. SKIN: Ecchymotic and there is significant bruising on the chest and bilateral upper extremities. HEART: Regular. I do not auscultate a murmur. LUNGS: Decreased breath sounds bilaterally. ABDOMEN: Nondistended. EXTREMITIES: There is no lower extremity edema. Feet are cool and mottled. A right chest port is clean, dry and intact without any erythema, drainage or fluctuance. LABORATORY STUDIES: CBC today reveals a white blood cell count of 4.9, hemoglobin 7.1, platelets are 26. Chemistry panel today reveals a sodium of 129, potassium 3.8, chloride 101, bicarb 13, BUN 25, creatinine 1.3, glucose is 175. Lactic acid today is 4.6. ALT is 602, ALT 373, total bilirubin is 2, procalcitonin is 26.75. Urinalysis in the ER was unremarkable. Drug screen was negative. CSF studies from the revealed 0 WBCs, 0 RBCs, glucose of 87 and protein of 60. Stool was positive for blood. Legionella antigen is pending. Blood and urine cultures are growing Staph aureus. Final is pending. CSF culture is negative to date. Chest x-ray from this morning shows bibasilar opacities. Gallbladder ultrasound done yesterday shows edematous thickening of the gallbladder wall and Doppler studies were done yesterday and did not show DVT bilaterally. A CTA was done on the and was negative for PE. CT of the abdomen and pelvis done in the Emergency Room shows no fluid collection, compression fracture and mild gallbladder wall thickening. ASSESSMENT AND PLAN: Severe sepsis with multiorgan dysfunction, related to Staph aureus septicemia, final sensitivities are pending. She should remain on empiric antibiotics for now, pending additional culture results. Hopefully, her antibiotics can be narrowed within the next 24 hours or so, pending additional culture data. Repeat blood culture should be obtained. An echocardiogram should be obtained. Possible sources would include the port as well as cholecystitis and biliary infection. Gram negative therapy should be continued at least for the next 24-48 hours. I do not suspect meningitis with a negative LP; however, I will continue to follow her CSF cultures. She remains critically ill on significant pressor support. I did discuss prognosis with her and sister at the bedside. We will continue to follow along with you. Thank you for this consultation.
--- NOTE | 2017-04-01 15:08 | Pharmacy Progress Note ---
Pharmacy Abx Dose Short Note Date of Service Apr 01, 2017. Assessment & Plan Assessment * 62 year old female receiving VANCOMYCIN and ZOSYN IV (dosing per pharmacy consult) for treatment of septic shock in the setting of immunocompromise (h/o stem cell x-plant on tacrolimus and dexamethasone prior to admission) - possible infected Hastings cath (surgery consulted for removal) * She is also receiving Clindamycin IV (for antitoxin effects) + Caspofungin IV * Today is Day # 2 of broad spectrum antimicrobial therapy * Patient had required pressor support w/ epi + norepi + vasopressin overnight - today pressors are being weaned (epi and vasopressin weaned off this AM). MAPs have remained > 65. 1100 mL U.O. yesterday (0.69mL/kg/hr) and 900mL out so far today (0.47mL/kg/hr). Pt has received a significant amount of IV fluid resuscitation. Wt up to 80.6kg today vs 66kg yesterday. * WBC has been declining along w/ all cell counts. Currently hypothermic * 2 blood cx's and urine cx are growing Staph aureus - awaiting sensitivities Plan Vancomycin * Random level of 14.7 mcg/mL was drawn this AM ~ 12 hours after yesterday's dose hung * Gave an additional 1250mg IV x 1 (~15.5mg/kg) * Will check random level again in ~ 12 hours with a plan to repeat dose the same dose when level 15-20mcg/mL. If level is > 20 would repeat level w/ AM labs tomorrow. * Given changing renal fxn I am hesitant to order a set maintenance dose at this time. Will follow renal fxn closely. Zosyn * Given severity of illness, will dose w/ aggressive extended-infusion regimen: 4.5gm IV (over 4 hours) Q 8 hours as eCrCl > 20cc/min Pharmacy will continue to follow and will adjust dose/frequency as necessary. Thank you.
[2017-04-01] MEDS ORDERED: CLINDAMYCIN IV SCH (16:00)
[2017-04-01 16:09] LABS: HEMATOCRIT 26.8 % (37-47)
[2017-04-01 16:13] LABS: MIXED VEN BASE EXCESS -13.3 mEq/L (-7.7-1.9); MIXED VEN PH 7.23 (7.35-7.45); MIXED VENOUS O2 SATURATION 70.5 % (68)
[2017-04-01 16:45] LABS: BUN/CREATININE RATIO 18.3 (10-20); CALCIUM 7.9 mg/dl (8.5-10.1); CREATININE 1.5 mg/dl (0.60-1.20); MAGNESIUM 1.9 mg/dl (1.8-2.4); PHOSPHORUS 7.1 mg/dl (2.5-4.9); POTASSIUM 4.5 mmol/L (3.5-5.1)
[2017-04-01 17:46] LABS: ISTAT ARTERIAL BLOOD GAS HCO3 11 meq/L (19-24); ISTAT ARTERIAL BLOOD GAS PCO2 25 mmHg (35-46); ISTAT ARTERIAL BLOOD GAS PO2 82 mmHg (80-95); ISTAT ARTERIAL BLOOD GAS pH 7.24 (7.35-7.45); ISTAT CARBON DIOXIDE 12 mEq/l (24-31); ISTAT DELIVERY SYSTEM Ventilator; ISTAT FIO2 100 %; ISTAT PEEP 14; ISTAT RATE 28; ISTAT SITE Art Line; Vt 500
[2017-04-01] MEDS ORDERED: PIPERACILL/TAZOBAC IV 4.5 GM in SODIUM CHLORIDE 0.9% 100ML 100 ML IV SCH (18:00)
[2017-04-01] MEDS ORDERED: CISATRACURIUM IV BOLUS & DRIP IV STA ×2 (18:23→18:49)
[2017-04-01] MEDS ORDERED: CISATRACURIUM BESYLATE INJ 40 MG in SODIUM CHLORIDE 0.9% 100ML 80 ML IV PRN (18:45)
[2017-04-01] MEDS ORDERED: MIDAZOLAM 125MG/250ML D5W 250 ML IV PRN (18:52)
[2017-04-01] MEDS ORDERED: FENTANYL 1250MCG/250ML NSS 250 ML IV PRN (19:00)
[2017-04-01] MEDS ORDERED: CISATRACURIUM BESYLATE IV ONE (19:15)
[2017-04-01] MEDS ORDERED: NALOXONE HCL INJ 0.4 MG/1 ML VIAL/CARP IV ONE (21:07)
--- NOTE | 2017-04-02 06:23 | SURGICAL CONSULTATION ---
DATE OF CONSULTATION: 04/01/2017 HISTORY OF PRESENT ILLNESS: I have been asked by Dr. Agee to see this 62-year-old female with history of AML, who about a 100 days ago underwent a stem cell transplant. She was admitted to the ICU with septic shock with etiology undetermined. Aspiration pneumonia was suspected. She also had positive blood cultures for staph and has had a Hastings catheter in place for a long time. She was thrombocytopenic and given platelet transfusion. She has a persistent lactic acidosis and remains ventilated. She did require pressors at one point, but is presently not on pressors. She presently is on Azactam, vancomycin, clindamycin and Diflucan. We have been asked to remove her Hastings catheter. PAST MEDICAL HISTORY: AML status post chemotherapy and stem cell transplant, hypothyroidism, pneumonia, cardiomyopathy. MEDICATIONS: As per H&P. ALLERGIES: PENICILLIN, SULFA AND ANTIBIOTICS. PHYSICAL EXAMINATION: GENERAL: Reveals a well-developed female, who is ventilated and sedated. She has a Hastings catheter in the right subclavian area. There is no evidence of erythema, but there is ecchymosis. LABORATORY DATA: WBC 4.59, H&H of 7.6 and 21.5, and platelet count was 26,000 prior to transfusion. ASSESSMENT AND PLAN: I have been asked to remove the Hastings catheter, and we are going to plan to do that at the bedside. We will culture ____.
--- NOTE | 2017-04-02 06:33 | OPERATIVE REPORT ---
DATE OF OPERATION: 04/01/2017 BEDSIDE PROCEDURE NOTE PREOPERATIVE DIAGNOSIS: Hastings catheter with Staph bacteremia. POSTOPERATIVE DIAGNOSIS: Same. PROCEDURE: Removal of Hastings catheter. SURGEON: Tristin Comer MD PROCEDURE TECHNIQUE: The area was prepped and draped in the usual sterile fashion. The skin around the exit site was anesthetized with 1% Xylocaine with epinephrine and the cuff was identified by the skin bluntly. It was away from the surrounding enveloping scar tissue. The catheter was tethered up into the clavicle where I made a second counterincision after anesthetizing the skin and freeing the sheath around the catheter which was eventually ligated with a 3-0 Vicryl suture ligature. Once I opened that sheath, I was able to remove the intravascular portion of the catheter and then removed the catheter through the skin tunnel. The skin of the infraclavicular incision was closed with interrupted 4-0 Prolene and a dressing placed. Blood loss was 2 mL. The patient tolerated the surgical procedure without complication. I attest to the content of the Intraoperative Record and any orders documented therein. Any exception s are noted below.
[2017-04-02 13:00] LABS: LEGIONELLA ANTIGEN NOT DETECTED (NOT DETECTED)
[2017-04-02] MEDS ORDERED: CASPOFUNGIN INJ 50 MG in SODIUM CHLORIDE 0.9% 100ML 100 ML IV SCH (13:00)
--- NOTE | 2017-04-02 16:22 | Discharge Summary ---
Discharge Summary Date of Service Apr 02, 2017. Discharge Summary Admission Date: Mar 31, 2017 at 09:24 Discharge Date: Apr 02, 2017 Discharge Disposition: Acute care facility Principal Diagnosis: HYPOTENSION, ACUTE RESPIRATORY FAILURE POSSIBLY FROM: SEPTIC SHOCK Secondary Diagnoses/Problems: Please refer to hospital course below. Procedures: MECHANICAL VENTILATION, PLATELET AND PRBC TRANSFUSION, REMOVAL OF HOLBROOK CATHETER Consultations: FHA UNDERWRITER, ID, ONCOLOGY, GENERAL SURGERY Admission Information HPI (per Admitting provider): 62 year old female with history of AML s/p Stem Cell Transplant, Takatsubo Cardiomyopathy, Hypothyroidism presenting with altered mental status. History obtained from patient's spouse Kavin as patient was intubated. Patient was apparently feeling fine, even went out for dinner for the first time last night. This morning, patient's found her on the floor barely responsive, confused with vomitus and incontinent of urine/stools. He then called 911. Patient received in the ER hypotensive, unresponsive and was thus intubated, started on Levophed. On exam, she is occasionally opening eyes to verbal stimuli and moving her extremities equally. Per patient's , no fever/chills, headache, chest pain, dyspnea, abdominal pain, changes with urination/BM. Physical Exam (per Admitting): General Appearance: WD/WN, no apparent distress, + pertinent finding ( intubated) Head: normocephalic, atraumatic Eyes: normal inspection, PERRL, sclerae normal ENT: normal ENT inspection Neck: no adenopathy, thyroid normal, no JVD Respiratory/Chest: lungs clear, normal breath sounds, no respiratory distress, no accessory muscle use Cardiovascular: regular rate, rhythm, no edema Abdomen/GI: normal bowel sounds, non tender, soft Extremities/Musculoskelatal: + pertinent finding ((+) hematoma, skin tears on extremities) Neurologic/Psych: + pertinent finding (full neuro exam cannot be obtained as patient inutabated, pupils 3mm size, equal, moves extremities equally) Skin: normal color, warm/dry, + pertinent finding (as above) Lymphatic: no adenopathy Hospital Course 62 year old female with history of AML s/p Stem Cell Transplant on Tacrolimus, Takatsubo Cardiomyopathy, Hypothyroidism presenting with altered mental status. HYPOTENSION, ACUTE RESPIRATORY FAILURE POSSIBLY FROM: SEPTIC SHOCK - blood cultures: Staph, sens pending urine culture: Staph, sens pending - GB US: possible acute cholecystitis - lactic acid improving - was placed on empiric Vanco + Aztreonam + Clindamycin IV, Fluconazole IV Gen Surg consulted for removal of Holbrook Catheter - informed by Night call or contact centre coach Hospitalist that patient transfer to [facility] has been arranged by Lay Out Inspector Dr. Agee called ICU- RN Sadi informed me that patient was developing possible ARDS , increasing oxygen requirements and for this reason transfer to [facility] deemed necessary HYPOVOLEMIA COMPONENT - IV fluids given ADRENAL INSUFFICIENCY - IV hydrocortisone ordered other work up: echo: * There is borderline asymmetric left ventricular hypertrophy. * Left ventricular systolic function is normal. * Grade I diastolic dysfunction, (abnormal relaxation pattern). * The left atrium is mildly dilated. * Right ventricular systolic pressure is elevated at 30-40mmHg. * Small right pleural effusion. Ct angio/Doppler: negative THROMBOCYTOPENIA - 2 units plt ordered pRBC also ordered ACUTE RENAL FAILURE - IV fluids - likely prerenal, from sepsis, from hypotension - improving crea HYPOKALEMIA - IV K ordered - improved ELEVATED LFTS likely from shock - GB showing possible cholecystitis - Gen Surg consulted PROLONGED QT - monitor - no medications prolonging QT METABOLIC ACIDOSIS - lactic acid elevated improving IV fluids AML, S/P STEM CELL TRANSPLANT - on Tacrolimus will need to hold for ongoing sepsis patient follows with Dr. Vail from [facility] will need to discuss with him re: resumption of Tacrolimus Full code per discussion with patient's Kavin updated in the morning, he is comfortable with plan of care Advanced Directives Existing Living Will: No Existing Power of Parts Clerk Plant Maintenance: No VTE Prophylaxis VTE Risk Assessment Done? Y/N: Yes Risk Level: Moderate Total time spent on discharge = 30 minutes This includes examination of the patient, discharge planning, medication reconciliation, and communication with other providers. Discharge Instructions Patient transferred to [facility].
[2017-04-03 07:42] LABS: FK506 TACROLIMUS HIGHLY SENS 1.9 MCG/L (5-20)
--- NOTE | 2017-04-03 10:21 | EDITING REQUIRED CODING QUERY ---
CODING QUERY To promote full compliance with coding requirements relating to patient care, provider participation is requested in all cases of dental technician uncertainty. Please assist us with the question(s) below: Coding Question(s): Please clarify below, in your clinical opinion, the possible source(s) of the Septic Shock. Please check all that apply as possible sources. ( ) Possible Infected Hastings Catheter (was removed) ( ) Possible acute cholecystitis and bile infection ( ) Possible UTI with positive urine culture ( X ) All 3 listed above ( ) Other: Specify Physician's Response(s): Thank you Cait Shelton Principal Diagnosis: "_that condition established after study, to be chiefly responsible for occasioning the admission of the patient to the hospital for care." Co-Existing Principal Diagnosis: "_when two or more diagnoses equally meet the criteria for principal diagnosis as determined by the circumstances of admission, diagnostic work up, and/or therapy provided, and the Alphabetic Index, Tabular List, or another coding guideline does not provide sequencing direction, any one of the diagnoses may be sequenced first." "When the physician has documented what appears to be a current diagnosis in the body of the record, but has not included the diagnosis in the final diagnostic statement, the physician should be asked whether the diagnosis should be added." (Source Coding [facility] 2 QTR90. p3-4)
== END 2017-04-01 21:08 | disposition short-term general hospital (02) | DRG 314 ==
LOC: EDBD 08:20 → C.EDB 08:21 → C.MSICU 09:24 → ENRESERV 10:06
PROVIDERS: ADMIT Internal Medicine; ATTEND Internal Medicine
PROC: 5A1945Z Respiratory Ventilation, 24-96 Consecutive Hours (ICD-10-PCS; principal; 2017-03-31)
PROC: 0BH17EZ Insertion of Endotracheal Airway into Trachea, Via Natural or Artificial Opening (ICD-10-PCS; principal; 2017-03-31)
PROC: 009U3ZX Drainage of Spinal Canal, Percutaneous Approach, Diagnostic (ICD-10-PCS; 2017-03-31)
PROC: 03H633Z Insertion of Infusion Device into Left Axillary Artery, Percutaneous Approach (ICD-10-PCS; 2017-03-31)
PROC: 0JPT0WZ Removal of Totally Implantable Vascular Access Device from Trunk Subcutaneous Tissue and Fascia, Open Approach (ICD-10-PCS; 2017-04-01)
PROC: 02PAX3Z Removal of Infusion Device from Heart, External Approach (ICD-10-PCS; 2017-04-01)
DX: T82.7XXA Infection and inflammatory reaction due to other cardiac and vascular devices, implants and grafts, initial encounter (principal); A41.01 Sepsis due to Methicillin susceptible Staphylococcus aureus; R65.21 Severe sepsis with septic shock; J96.00 Acute respiratory failure, unspecified whether with hypoxia or hypercapnia; J69.0 Pneumonitis due to inhalation of food and vomit; K81.0 Acute cholecystitis; K83.0 Cholangitis; N39.0 Urinary tract infection, site not specified; N17.9 Acute kidney failure, unspecified; J80 Acute respiratory distress syndrome; Z94.84 Stem cells transplant status; C92.00 Acute myeloblastic leukemia, not having achieved remission; E27.40 Unspecified adrenocortical insufficiency; D61.818 Other pancytopenia; R40.2422 Glasgow coma scale score 9-12, at arrival to emergency department; D69.6 Thrombocytopenia, unspecified; E87.6 Hypokalemia; E03.9 Hypothyroidism, unspecified; Z79.899 Other long term (current) drug therapy; Z79.52 Long term (current) use of systemic steroids; Z83.3 Family history of diabetes mellitus; Z82.49 Family history of ischemic heart disease and other diseases of the circulatory system; Z82.3 Family history of stroke; Z83.49 Family history of other endocrine, nutritional and metabolic diseases; Y83.8 Other surgical procedures as the cause of abnormal reaction of the patient, or of later complication, without mention of misadventure at the time of the procedure

== ENCOUNTER 2023-08-21 22:07 | Inpatient (IN) ==
[2023-08-21 23:10] LABS: Basophils # (auto) 0.01 K/uL (0.00-0.20); Basophils % (auto) 0.2 %; Eosinophils # (auto) 0.02 K/uL (0.00-0.50); Eosinophils % (auto) 0.4 %; Hematocrit (blood only) 30.7 % (37.0-47.0); Hemoglobin 10.2 g/dl (12.0-16.0); Immature Granulocytes # (auto) 0.06 K/uL (0.01-0.20); Immature Granulocytes % (auto) 1.1 %; Lymphocytes # (auto) 0.63 K/uL (1.20-3.40); Lymphocytes % (auto) 11.9 %; Mean Corpuscular Hemoglobin 36.6 pg (25.0-34.0); Mean Corpuscular Hgb Conc 33.2 g/dL (32.0-36.0); Mean Platelet Volume 8.9 fL (9.4-12.4); Monocytes # (auto) 0.31 K/uL (0.11-0.59); Monocytes % (auto) 5.8 %; Neutrophils # (auto) 4.28 K/uL (1.40-6.50); Neutrophils % (auto) 80.6 %; Platelet Count 217 K/uL (130-400); RDW Coefficient of Variation 14.8 % (11.5-14.5); RDW Standard Deviation 60.4 fL (36.4-46.3); Red Blood Count 2.79 M/uL (4.20-5.40); White Blood Count 5.31 K/ul (4.8-10.8)
[2023-08-21 23:26] LABS: Alanine Aminotransferase 45 U/L (7-52); Albumin Globulin Ratio 1.4 (0.9-2); Albumin Level 3.4 gm/dl (3.4-5.0); Alkaline Phosphatase 212 U/L (34-104); Anion Gap 7 (3-11); Aspartate Aminotransferase 46 U/L (13-39); BUN Creatinine Ratio 15.2 (10-20); Bilirubin,Total 0.5 mg/dl (0.2-1.0); Blood Urea Nitrogen 12 mg/dl (6-23); Carbon Dioxide 22 mmol/L (21-32); Chloride 108 mmol/L (98-107); Est GFR (African American) 89.8 ml/min; Est GFR (Non-African American) 77.5 ml/min; Globulin 2.5 gm/dl (2.5-4.0); Glucose 106 mg/dl (70-99(Fasting)); Magnesium 1.3 mg/dl (1.7-2.4); Sodium 137 mmol/L (136-145); Total Protein 5.9 gm/dl (6.0-8.3)
[2023-08-21 23:32] LABS: Troponin I High Sensitivity 8.6 pg/ml (0-14)
--- NOTE | 2023-08-21 23:37 | Emergency Department Note ---
History of Present Illness General Chief complaint: Confusion Stated complaint: CONFUSION Time Seen by Provider: 08/21/23 23:16 Source: patient, family ( who is at the bedside), RN notes reviewed and old records reviewed (02/22/20-a radiation oncology visit for leukemia cutis) Mode of arrival: ambulatory Limitations: no limitations History of Present Illness This patient is 68-year-old female who comes in after having an episode around 845 after eating dinner where she did not make sense she seemed confused. Her said she was not really slurring her words or if she just did not make sense. The patient does remember this. She no focal numbness weakness no change in vision she had a migraine the other day but no significant headache today she fell on [place] and injured her knee she was checked out at the hospital. She had no head or injury. She had no chest pain shortness of breath fever or chills. She is not diabetic she has been eating and drinking is normal. She does feel better now and is back to normal baseline. She had a normal NIH score. The visit lasted about 30 minutes. 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 She had recurrence with leukemia cutis rash. She is on chemo and radiation she gets chemo for times a week once a month and this has been done over at [facility]. She is is on chemo this week and never had any issues with this. She does have a port in place Home Medications Medication Instructions Recorded Confirmed Type acyclovir 400 mg tablet 800 mg PO BID 05/14/19 05/31/21 History bupropion HCl 100 mg tablet,12 hr 450 mg PO QAM 05/14/19 05/31/21 History sustained-release buspirone 5 mg tablet 20 mg PO QAM 05/14/19 05/31/21 History calcium carbonate 600 mg-vitamin 1 cap PO QAM 05/14/19 05/31/21 History D3 5 mcg (200 unit) capsule (Calcium 600 + D(3)) lorazepam 0.5 mg tablet 0.5 mg PO UD PRN Anxiety 05/14/19 05/31/21 History metoprolol succinate 25 mg 12.5 mg PO QAM 05/14/19 05/31/21 History tablet,extended release 24 hr omeprazole 20 mg tablet,delayed 20 mg PO QAM 05/14/19 05/31/21 History release ondansetron HCl 8 mg tablet 8 mg PO UD PRN Nausea 05/14/19 05/31/21 History potassium chloride 20 mEq 40 meq PO TID 05/14/19 05/31/21 History tablet,extended release prochlorperazine maleate 10 mg 10 mg PO UD PRN Nausea 05/14/19 05/31/21 History tablet (Compazine) ursodiol 300 mg capsule 300 mg PO TID 05/14/19 05/31/21 History levothyroxine 125 mcg capsule 125 mcg PO QAM 05/28/19 05/31/21 History magnesium oxide 400 mg PO BID 05/28/19 05/31/21 History hydrocodone 5 mg-acetaminophen 300 1 tab PO UD PRN pain 05/09/21 05/31/21 History mg tablet oxycodone 5 mg tablet 5 mg PO Q6H PRN pain #8 tabs 03/25/22 Rx Allergies Allergy/AdvReac Type Severity Reaction Status Date / Time amoxicillin AdvReac Mild Nausea Verified 05/31/21 06:10 Penicillins AdvReac Mild "makes me Verified 05/31/21 06:10 nervous" Past Med/Surg History Medical History History of diabetes mellitus HX STEROID INDUCED DIABETES, NOW RESOLVED Low blood pressure Sepsis due to Pseudomonas species with acute organ dysfunction and septic shock this happened 100 days after the transplant CMV (cytomegalovirus infection) HX ? PT NOT SURE Autoimmune hepatitis Nausea and vomiting after administration of anesthetic agent Hypothyroidism AML (acute myeloblastic leukemia) diagnosed - CURRENT CHEMOTHERAPY/PORT RIGHT CHEST TMJ disease HX SURGERY, RESOLVED PROBLEM Depression Anxiety Migraine HX Takotsubo cardiomyopathy reason for metoprolol--follows with Dr. Bonilla Surgical History History of cataract surgery right S/P radiation therapy before bone marrow transplant 12-11-2016 Bone marrow replaced by transplant December 2016 History of amputation of toe left big toe History of hemorrhoidectomy History of colonoscopy History of esophagogastroduodenoscopy (EGD) History of vascular access device right APORT History of mandibular surgery TMJ sx--plate in right side of jaw History of tooth extraction History of wisdom tooth extraction History of cardiac cath 2012 in [place]---no stents Family History Sister Family history of diabetes mellitus Mother , age 84 Head and neck cancer COPD (chronic obstructive pulmonary disease) Father , age 75 Esophageal cancer Sister Vertigo Hypertension Sister Hypothyroidism Brother Combined hyperlipidemia Brother Colorectal cancer Brother Gout Brother No problems noted. 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 Feels Safe at Home: Yes Childhood Exposure to Second-Hand Smoke: Yes Assistive Devices: Glasses Review of Systems A total of 10 systems reviewed and were otherwise negative Physical Exam Vital Signs Vital Signs - 24 hr 08/21/23 22:16 08/21/23 22:56 08/21/23 23:00 Temperature 36.9 C Temperature Source Oral Pulse Rate 81 78 78 Pulse Rate from SpO2 Sensor 78 Respiratory Rate 16 16 Respiratory Effort / Characteristics Non-Labored Spontaneous Respiratory Depth Normal Respiratory Pattern Regular Blood Pressure 95/72 L 98/61 L Blood Pressure Mean 79 73 Blood Pressure Position Sitting Pulse Oximetry 98 100 Oxygen Delivery Method Room Air Room Air Sepsis Recent Fever Within 48 Hours No Sepsis New/Unexplained Change in Mental Status N/A Sepsis Action Taken by Nursing No Action Required 08/21/23 23:30 08/22/23 00:00 08/22/23 00:15 Temperature Temperature Source Pulse Rate 80 78 Pulse Rate from SpO2 Sensor 80 75 Respiratory Rate 14 Respiratory Effort / Characteristics Respiratory Depth Respiratory Pattern Blood Pressure 103/64 139/83 Blood Pressure Mean 77 101 Blood Pressure Position Pulse Oximetry 98 94 99 Oxygen Delivery Method Room Air Room Air Room Air Sepsis Recent Fever Within 48 Hours Sepsis New/Unexplained Change in Mental Status Sepsis Action Taken by Nursing General: Well developed well nourished somewhat pale middle-age female who appears alert orient x 3 and in no acute distress, breathing comfortably on room air. Normal speech HEENT: Normal cephalic atraumatic. Pupils are equal round and reactive to light. Extraocular movements are intact. Oropharynx is pink with moist mucous membranes. No swelling of the mouth lips or tongue. Neck: Supple with a midline trachea. No meningeal signs or stiffness, no JVD or bruits. No Stridor. Chest: Clear to auscultation bilaterally. No wheezes or rhonchi. No increased work of breathing. There is a port in her right chest Heart: Regular rate and rhythm without murmurs or gallops. Abdomen: Soft nontender, nondistended without rebound guarding or rigidity. Extremities: No cyanosis clubbing or edema. No calf tenderness or assymetry. There are healing bruise on her knees which are not significantly tender Spine/Back. Non tender to palpation. No CVA tenderness Skin: Good turgor without rashes. Neurologic exam: Cranial nerves two through 12 are intact. Motor and sensation are intact and symmetrical throughout. No tremor. No pronator drift Medical Decision Making Differential Diagnosis Stroke, TIA, infection, complication related to cancer or chemotherapy, electrolyte or metabolic abnormality Medical Records Attestation: I reviewed the patient's medical records. Home Medications Current Medication List: was personally reviewed by me Laboratory Data Attestation: I reviewed the patient's lab results. 08/21/23 22:44 08/21/23 22:44 Lab Results 08/21/23 08/21/23 08/22/23 Range/Units 22:44 23:50 00:00 WBC 5.31 (4.8-10.8) K/ul RBC 2.79 L (4.20-5.40) M/uL Hgb 10.2 L (12.0-16.0) g/dl Hct 30.7 L (37.0-47.0) % MCV 110.0 H (80.0-100.0) fL MCH 36.6 H (25.0-34.0) pg MCHC 33.2 (32.0-36.0) g/dL RDW Std Deviation 60.4 H (36.4-46.3) fL RDW Coeff of [place]am 14.8 H (11.5-14.5) % Plt Count 217 (130-400) K/uL MPV 8.9 L (9.4-12.4) fL Immature Gran % (Auto) 1.1 % Neut % (Auto) 80.6 % Lymph % (Auto) 11.9 % [place] % (Auto) 5.8 % Eos % (Auto) 0.4 % Baso % (Auto) 0.2 % Neut # (Auto) 4.28 (1.40-6.50) K/uL Lymph # (Auto) 0.63 L (1.20-3.40) K/uL [place] # (Auto) 0.31 (0.11-0.59) K/uL Eos # (Auto) 0.02 (0.00-0.50) K/uL Baso # (Auto) 0.01 (0.00-0.20) K/uL Immature Gran # (Auto) 0.06 (0.01-0.20) K/uL PT 10.8 (9.0-12.0) Seconds INR 1.0 (0.9-1.1) APTT 35 H (21-31) Seconds PTT Ratio 1.2 Sodium 137 (136-145) mmol/L Potassium 4.0 (3.5-5.1) mmol/L Chloride 108 H (98-107) mmol/L Carbon Dioxide 22 (21-32) mmol/L Anion Gap 7 (3-11) BUN 12 (6-23) mg/dl Creatinine 0.79 (0.6-1.2) mg/dl Est Cr Clr Drug Dosing Not Reportable Est GFR ( Amer) 89.8 ml/min Est GFR (Non-Af Amer) 77.5 ml/min BUN/Creatinine Ratio 15.2 (10-20) Glucose 106 H (70-99(Fasting)) mg/dl Lactate 0.7 (0.4-2.0) mmol/L Calcium 8.0 L (8.6-10.3) mg/dl Magnesium 1.3 L (1.7-2.4) mg/dl Total Bilirubin 0.5 (0.2-1.0) mg/dl AST 46 H (13-39) U/L ALT 45 (7-52) U/L Alkaline Phosphatase 212 H (34-104) U/L Troponin I High Sens 8.6 (0-14) pg/ml Total Protein 5.9 L (6.0-8.3) gm/dl Albumin 3.4 (3.4-5.0) gm/dl Globulin 2.5 (2.5-4.0) gm/dl Albumin/Globulin Ratio 1.4 (0.9-2) Urine Color Yellow Urine Appearance Clear (Clear) Urine pH 5.5 (4.5-7.5) Ur Specific [place] 1.011 (1.000-1.030) Urine Protein Negative (Negative) Urine Glucose (UA) Negative (Negative) Urine Ketones Negative (Negative) Urine Blood Negative (Negative) Urine Nitrite Negative (Negative) Urine Bilirubin Negative (Negative) Urine Urobilinogen Negative (Negative) Ur Leukocyte Esterase Negative (Negative) SARS-CoV-2 (PCR) POSITIVE A* (Negative) Imaging Data Attestation: I personally reviewed and interpreted this imaging study as follows: My Impression: Head CTno hemorrhage or mass effect seen upon my interpretation Chest x-rayno acute infiltrate, failure, pneumothorax seen as per my interpretation Radiologist's Impression: Head CT 08/21/23 22:45 Exam(s): CT HEAD Without Contrast EXAM: CT Head Without Intravenous Contrast CLINICAL HISTORY: Reason for exam: neuro deficit, acute stroke suspected. TECHNIQUE: Axial computed tomography images of the head/brain without intravenous contrast. CTDI is 34.46 mGy and DLP is 546.36 mGy-cm. Automated exposure control was utilized for the study. A dose lowering technique was utilized adhering to the principles of ALARA. COMPARISON: Comparison made to prior head CT from March 31, 2017. FINDINGS: Brain: Unremarkable. No hemorrhage. Mild nonspecific white changes.. No edema. Prominent but turgid gland with convex superior margin measuring 2.8 mm in height concern for pituitary adenoma. Small bilateral choroidal fissure cyst. Ventricles: Moderate ventriculomegaly. Bones/joints: Unremarkable. No acute fracture. Soft tissues: Bilateral lens replacements. Sinuses: Chronic ethmoid sinusitis. No acute sinusitis. Mastoid air cells: Unremarkable as visualized. No mastoid effusion. IMPRESSION: No evidence of acute intracanal pathology. Findings concerning for pituitary adenoma. Recommend correlation with patient's hormonal status. Electronically signed by: Maddy Greer MD 08/22/23 00:48 AM ECG Data Attestation: I personally reviewed and interpreted this ECG as follows: Indication: + altered mental status Rate (beats per minute): 82 Rhythm: + normal sinus ECG Intervals/blocks: + Normal QRS, + Normal QT and + Normal ME ECG [place]: + Normal ECG ST segments: + Normal ST segments ECG Findings: + Other (Low voltage); no PACs or no PVCs Comparison ECG Date: from (03/31/17) Change: the following changes noted (QTc has shortened and ST and T wave abnormalities have improved) MDM Narrative This patient comes in as described above. She was placed in room A4. Workup had been ordered prior to me evaluating her I saw her when she came back from CAT scan. I do not see any hemorrhage or mass effect on her CT her EKG is unremarkable she is back to her normal neurologic baseline at this point. Her a port was asked she had multiple blood testing was obtained. She was found to be anemic with a hemoglobin 10 she has no white count. She has no significant acute electrolyte or metabolic abnormality. CAT scan of her head was unremarkable for acute intracranial process she may have a pituitary abnormality/adenoma chest x-ray was unremarkable. She is doing much better but given her history I do think she should be admitted/observed it is possible she could have had a TIA. It could have been related to her chemo or her malignancy as well. At this point she is back to her baseline. I have discussed case at length and consultation with Dr. Dooley from [facility] he will see the patient ER for these measures. The patient's COVID test did come back positive. Continuous cardiac monitoring: Orders placed in EMR for continuous cardiac monitoring: Pulm evaluation patient is to be in normal sinus rhythm rate of 75 Impression & Plan Acute alteration in mental status, AML (acute myeloblastic leukemia), Leukemia cutis, Anemia, Lab test positive for detection of COVID-19 virus Discharge Plan Visit Data Chief Complaint: Confusion Stated Complaint: CONFUSION ED Provider: Venancio Silva Discharge Problem: Acute alteration in mental status, AML (acute myeloblastic leukemia), Leukemia cutis, Anemia, Lab test positive for detection of COVID-19 virus Forms Stand Alone Forms: My Editorially Prescriptions Prescriptions: No Action levothyroxine 125 mcg capsule 125 mcg PO QAM buspirone 5 mg Tablet 20 mg PO QAM ondansetron HCl 8 mg Tablet 8 mg PO UD PRN (Reason: Nausea) prochlorperazine maleate [Compazine] 10 mg Tablet 10 mg PO UD PRN (Reason: Nausea) acyclovir 400 mg Tablet 800 mg PO BID bupropion HCl 100 mg Tablet Sustained-Release 12 Hr 450 mg PO QAM Patient Comments: 300 MG AND 150 MG TABLET - TOTAL 450 MG IN THE MORNING lorazepam 0.5 mg Tablet 0.5 mg PO UD PRN (Reason: Anxiety) ursodiol 300 mg Capsule 300 mg PO TID metoprolol succinate 25 mg Tablet Extended Release 24 Hr 12.5 mg PO QAM Calcium 600 + D(3) 600 mg calcium- 200 unit Capsule 1 cap PO QAM omeprazole 20 mg Tablet,Delayed Release (Dr/Ec) 20 mg PO QAM potassium chloride 20 mEq Tablet Extended Release 40 meq PO TID magnesium oxide 400 mg magnesium capsule 400 mg PO BID oxycodone 5 mg tablet 5 mg PO Q6H PRN (Reason: pain) Qty: 8 0RF Rx Instructions: Initial Treatment hydrocodone-acetaminophen 5-300 mg tablet 1 tab PO UD PRN (Reason: pain) Referrals Referrals: Joe Peng DO [Primary Care Provider] - Discharge Problem: AML (acute myeloblastic leukemia) Qualifiers: Leukemia Active/Remission status: relapsed Qualified Code(s): C92.02 - Acute myeloblastic leukemia, in relapse Anemia Qualifiers: Anemia type: unspecified type Qualified Code(s): D64.9 - Anemia, unspecified
[2023-08-22 00:07] LABS: Partial Thromboplastin Ratio 1.2; Partial Thromboplastin Time 35 Seconds (21-31); Prothrombin Time 10.8 Seconds (9.0-12.0)
[2023-08-22 00:14] LABS: Appearance Urine Clear (Clear); Bilirubin Urine Negative (Negative); Blood Urine Negative (Negative); Color Urine Yellow; Glucose Urine UA Negative (Negative); Ketones Urine Negative (Negative); Leukocyte Esterase Urine Negative (Negative); Nitrite Urine Negative (Negative); Protein Urine Negative (Negative); Specific Gravity Urine 1.011 (1.000-1.030); Urobilinogen Urine Negative (Negative); pH Urine 5.5 (4.5-7.5)
--- OUTSIDE RECORDS SUMMARY | 2023-08-22 00:24 | External Medical Summary ---
Author Name Unknown Address Unknown Organization [id number] [place] [address] Laboratory Report Ordering Provider Test Date Status APRYL MARINELLI 08/20/2023 12:12:20 Final Observation Date Value Abnormality Reference (Units ) Status Magnesium 08/20/2023 12:12:20 1.5 1.5-2.6 (m g/dL) Final Performing Location [facility] [place] [address]
--- OUTSIDE RECORDS SUMMARY | 2023-08-22 00:24 | External Medical Summary ---
Author Name Unknown Address Unknown Organization [id number] [place] [address] Laboratory Report Ordering Provider Test Date Status APRYL MARINELLI 08/20/2023 12:12:20 Final Observation Date Value Abnormality Reference (Units ) Status WBC, Total 08/20/2023 12:12:20 6.46 4.00-10.8 0 (K/uL) Final RBC 08/20/2023 12:12:20 3.02 3.85-5.15 (M/uL) Final Hemoglobin 08/20/2023 12:12:20 11.2 Below low normal 12 .0-15.3 (g/dL) Final HCT 08/20/2023 12:12:20 34.2 Below low normal 36. 0-45.2 (%) Final MCV 08/20/2023 12:12:20 113.2 81.5-97.5 (fL) Final MCH 08/20/2023 12:12:20 37.1 27.0-34.0 (pg) Final MCHC 08/20/2023 12:12:20 32.7 32.0-36.0 (g/dL) Final RDW 08/20/2023 12:12:20 15.1 11.5-15.5 (%) Final Platelets 08/20/2023 12:12:20 286 140-400 (K /uL) Final MPV 08/20/2023 12:12:20 8.5 6.6-11.1 ( fL) Final Performing Location [facility] [place] [address]
--- OUTSIDE RECORDS SUMMARY | 2023-08-22 00:24 | External Medical Summary | Summary of Care ---
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 0 Active Magnesium 400 MG TABS Take 2 tabs twice daily 360 Tab 1 0 Active buPROPion HCl ER (XL) 150 MG Oral Tablet Extended Release 24 Hour (Wellbutrin XL) Take 1 Tablet by mouth in the morning. 0 1 Active buPROPion HCl ER (XL) 300 MG Oral Tablet Extended Release 24 Hour (Wellbutrin XL) Take 1 Tablet by mouth in the morning. 0 1 Active Potassium Chloride ER 20 MEQ Oral Tablet Extended ReleaseIndications: Hypokalemia Take 1 Tablet by mouth in the morning. 90 Tablet 1 2 Active Prochlorperazine Maleate 10 MG Oral Tablet (Compazine) Take by mouth 1 Tablet every 8 hours as needed for Nausea. Every 6 hours as needed for nausea 30 Tablet 11 2 Active LORazepam 0.5 MG Oral Tablet (Ativan)Indications :Anxiety disorder due to medical condition Take by mouth 1 Tablet daily as needed for Anxiety. 30 Tablet 3 2 Active Levothyroxine Sodium 150 MCG Oral Tablet (Levoxyl)Indication s:Acquired hypothyroidism TAKE 1 TABLET IN THE MORNING AT LEAST 30 MINUTESPRIOR TO BREAKFAST OR OTHERMEDICATIONS 90 Tablet 1 3 Active Omeprazole 20 MG Oral Capsule Delayed Release (PriLOSEC)Indicatio ns:Gastroesophageal reflux disease without esophagitis TAKE 1 CAPSULE DAILY 90 Capsule 1 3 Active Acetaminophen 500 MG Oral Tablet Take 1 Tablet by mouth every 6 hours as needed. 0 Active Metoprolol Succinate ER 25 MG Oral Tablet Extended Release 24 Hour (toPROL XL)Indications:Tako tsubo cardiomyopathy TAKE 1/2 TABLET DAILY 45 Tablet 3 3 Active Ondansetron 8 MG Oral Tablet DisintegratingIndic ations:Acute myeloid leukemia in remission (HCC) Place 1 Tablet on tongue every 8 hours as needed for Nausea. dissolve on tongue. 30 Tablet 2 3 Active Vitamin B-12 1000 MCG Oral Tablet (Cyanocobalamin) TAKE 1 TABLET BY MOUTH EVERY DAY IN THE MORNING 90 Tablet 1 3 Active HYDROcodone-Acetami nophen 5-325 MG Oral Tablet Take 1 Tablet by mouth every 8 hours as needed for Pain, Mild. 15 Tablet 0 3 Active busPIRone HCl 10 MG Oral Tablet (Buspar) 0 3 Active Sodium Fluoride 5000 PPM 1.1 % Dental Paste USE DIRECTED ONCE A DAY AT BEDTIME 0 3 Active Gabapentin 300 MG Oral Capsule (Neurontin)Indicati ons:Lumbar radiculopathy Take 2 Capsules by mouth in the morning and 2 Capsules in the evening. 360 Capsule 1 4 Active documented as of this encounter (statuses as of 08/20/2023) Active Problems Problem Noted Date Diagnosed Date Hypotension 06/19/2022 Leukemia cutis 06/19/2022 Transaminasemia 06/19/2022 Vasovagal syncope 06/19/2022 Weight loss 06/19/2022 Chemotherapy-induced neutropenia 11/29/2021 Acquired absence of left great toe 10/28/2020 Neutropenia 02/15/2020 Chronic myeloid leukemia, BC R/ABL-positive, not having achieved remission 08/28/2019 Chronic leukemia of unspecif ied cell type not having achieved remission 08/28/2019 RASTA (generalized anxiety disorder) 08/28/2019 Gastroesophageal reflux disease without esophagi tis 08/28/2019 Chronic diarrhea 06/18/2019 Immunocompromised state 06/18/2019 Dehydration 12/01/2018 Major depressive disorder, single episode, moder ate 07/22/2018 Diet-controlled diabetes mellitus 05/20/2018 Iatrogenic diabetes mellitus 10/28/2017 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 Amputated great toe of left foot 07/31/2017 Anemia 04/02/2017 Coagulopathy 04/02/2017 Hypomagnesemia 01/09/2017 Hypokalemia 2017 H/O allogeneic bone marrow transplant 01/02/2017 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 08/31/2016 Encounter for antineoplastic chemotherapy 2016 Anasarca 06/08/2016 AML (acute myeloid leukemia) 05/18/2016 Hepatitis, autoimmune 01/26/2016 Thrombocytopenia 01/20/2016 Leucocytosis 01/20/2016 Takotsubo cardiomyopathy 02/12/2012 Hypothyroidism 08/27/2011 OTHER Overview: enlarged septum in heart documented as of this encounter (statuses as of 08/20/2023) Resolved Problems Problem Noted Date Diagnosed Date Resolved Date Amputated great toe of left foot 08/28/2019 04/09/2023 Uncontrolled type 2 diabetes mellitus with hyperglycemia, with long-term current use of insulin 02/18/2019 02/18/2019 Uncontrolled type 2 diabetes mellitus with hyperglycemia, with long-term current use of insulin 05/19/2018 05/20/2018 Unspecified adrenocortical insufficiency 05/19/2018 08/28/2019 Unspecified convulsions 05/19/201808/06 Aplastic anemia 05/19/2018 08/28/2019 Cardiomyopathy 10/28/2017 05/19/2018 Dry gangrene 04/17/2017 07/31/2017 Overview: Left great toe CLABSI (central line-associa liz bloodstream infection) 04/17/2017 11/03/2017 Acute liver failure 04/03/2017 07/31/20 17 Staphylococcus aureus bacteremia with sepsis 7 07/31/2017 Acute respiratory failure with hypoxia 04/02/2017 07/31/2017 Lactic acidosis 04/02/2017 07/31/2017 JAMIL (acute kidney injury) 04/02/2017 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 07/31/2017 Febrile neutropenia 06/08/2016 07/31/20 17 HSV-1 (herpes simplex virus 1) infection 06/08/2016 07/31/2017 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 encounter 02/12/2012 04/27/2015 [facility] current use of ant icoagulant therapy 02/12/2012 04/27/2015 Overview: ICD-10 update of inactive term Other disorder of menstruati on and other abnormal bleeding from female genital tract 09/16/2007 04/27/2015 Uterine leiomyoma 09/16/2007 04/27/2015 documented as of this encounter (statuses as of 08/20/2023) Immunizations Name Administration Dates Next Due COVID-19 mRNA, LNP-s, No Pre serve, 2-Dose Series (Idhasoft) 05/08/2021,08/29/2020,08/08/2020 DTaP Dipth/Tet/Acell Pertussis (Infanrix), Peds 12/25/2017,10/30/2017,09/25/2017 HIB Booster (Hiberix) 12/25/2017,10/30/2017,09/06 IPV - Polio Virus Vaccine (Inact) 12/25/2017,,09/30/2017 MMR - Measles/Mumps/Rubella Vaccine 09/30/2017 Pneumococcal Conjugate Vacc, 13 Valent (Prevnar) 05/25/2019,12/25/2017,10/30/2017,09/25 Pneumococcal Polysaccharide PPV23 (Pneumovax) 07/06/2022 Season Influenza, Quad, PF, Adjuvanted, 65+ Yrs, IM (FLUAD) 05/08/2021 Seasonal Influenza, PF, 6 M & above, IM , (FluLaval or Fluzone) 04/27/2020,05/25/2019,05/19/2018 Seasonal Influenza, Quadriva lent Hd (Fluzone Hd) 04/09/2023,06/18/2022 Seasonal Influenza, Quadriva lent Hd, 65+ Yrs 05/29/2021 Seasonal Influenza, Quadriva lent, No Preserve, IM 09/30/2017 Seasonal Influenza, Split, I IV3, With Preserve, Inj 05/30/2015,05/16/2014,06/08/2011 TDAP (age 10 and older)(Boostrix) 09/30/2017 TDAP (age 11 and older)(Adacel) 10/17/2010 documented as of this encounter Social History Tobacco Use Types Packs/Day Years Used Date Smoking Tobacco: Never Smokeless Tobacco: Never Alcohol Use Standard Drinks/Week Comments Yes 0 (1 standard drink = 0.6 oz pur e alcohol) rarely PHQ-2 Answer Date Recorded PHQ Adult Total Score 0 06/19/2022 Hunger Vital Sign Answer Date Recorded Within the past 12 months, y ou worried that your food would run out before you got the money to buy more. Never true 08/08/19 23 Within the past 12 months, t he food you bought just didn't last and you didn't have money to get more. Never true 08/08/2022 Sex and Gender Information Value Date Recorded Sex Assigned at Female 08/08/2022 8:56 AM EST Gender Identity Female 08/08/2022 8:56 AM EST Sexual Orientation Straight 08/08/2022 8: 56 AM EST Job Start Date Occupation Industry Not on file Not on file Not on file documented as of this encounter Functional Status Functional Status Response Date of Assess ment Are you deaf or do you have serious difficulty h earing? No 06/15/2016 Are you blind or do you have serious difficulty seeing, even when wearing glasses? No 06/15/2016 Do you have serious difficul ty walking or climbing stairs? (5 years old or older) No 06/15/2016 Do you have difficulty dress ing or bathing? (5 years old or older) No 06/15/2016 Because of a physical, menta l, or emotional condition, do you have difficulty doing errands alone such as visiting a doctor s office or shopping? (15 years old or older) Yes 06/15/20 16 Cognitive Status Response Date of Assessm ent Because of a physical, menta l, or emotional condition, do you have serious difficulty concentrating, remembering, or making decisions? (5 years old or older) No 06/15/2016 documented as of this encounter Plan of Treatment Upcoming Encounters Date Type Department Care Team (Late st Contact Info) Description 08/20/2023 1:00 PM EST Hem/Onc Treatment [address] [address] Patti, Chair 5 Hem On[address] [place] [address] Arrived 08/21/2023 1:00 PM EST Hem/Onc Treatment [address] [address] Patti, Chair 10 Hem On[address] [place] [address] 08/22/2023 1:00 PM EST Hem/Onc Treatment [address] [address] 08/23/2023 1:00 PM EST Hem/Onc Treatment [address] [address] Patti, Chair 7 Hem Onc [address] [place] [address] 09/25/2023 1:30 PM EST Office Visit [facility], 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) Hypomagnesemia 08/20/2023 12:12 PM EST CBC Lab STAT 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) Hypomagnesemia 08/20/2023 12:12 PM EST DIFFERENTIAL, AUTOMATED Lab STAT 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) Hypomagnesemia 08/20/2023 12:12 PM EST Scheduled Procedures Name Priority Associated Diagnoses Date/Ti me COLONOSCOPY FLEXIBLE PROXIMAL DIAGNOSTIC Recall History of colon polyps Health Maintenance Due Date Last Done Comments Zoster Vaccines (1 of 2) 01/03/1975 Hepatitis B (1 of 3 - Risk 3-dose series) 2016 Diabetic Foot Exam 01/10/2022 01/10/2021, 1 , 05/19/2018 COVID-19 Vaccine ( season) 2023 05/08/2021, 08/29/2020, 08/08/2020 HbA1c 06/12/2023 12/10/2022, 05/06, 12/04/2021, Additional history exists Depression Screening 06/19/2023 06/19/2022 TSH 12/11/2023 12/10/2022, 05/0 09/2021, 08/31/2020, Additional history exists Diabetic Eye Exam 01/22/2024 01/21/2023, , 07/09/2022, Additional history exists Mammogram 03/20/2024 03/20/2023, 03/05, 02/22/2023, Additional history exists Albumin/Creatinine Ratio 04/09/2024 023, 12/04/2021, 08/15/2020, Additional history exists GFR 07/23/2024 07/23/2023, 07/05, 06/18/2023, Additional history exists COLONOSCOPY-EVERY 3 YRS AGES 18-100 05/24/2025 05/24/2022, 05/24/2022, 05/18/2019, Additional history exists Lipid Panel 04/17/2026 04/17/2021, 08/05, 05/18/2015, Additional history exists DTaP,Tdap,and Td Vaccines (7 - Td or Tdap) 12/26/2027 12/25/2017, 10/30/2017, 09/30/2017, Additional history exists DXA Scan 01/23/2030 01/23/2023, 01/04, 11/04/2018, Additional history exists Pap Smear Discontinued 08/13/2019, 0808/2013, 03/05/2014, Additional history exists Pneumococcal Vaccine: 65+ Years Completed 07/06/2022, 05/25/2019, 12/25/2017, Additional history exists Influenza Vaccine (FLU shot) Completed 04/09/2023, 06/18/2022, 05/29/2021, Additional history exists GARDASIL-HPV IMMUNIZATION SERIES Aged Out No longer eligible based on patient's age to complete this topic MENINGOCOCCAL (MENACTRA/MENVEO) Aged Out No longer eligible based on patient's age to complete this topic documented as of this encounter Medical Devices Not on filedocumented as of this encounter Visit Diagnoses Diagnosis 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 Question Answer Comments Discussion of Advance Directives occurred with: Family Does the patient have a Living Will? No Does the patient have Health Care Power of Field Account Manager? No Code Status History Code Status Date Activated Date Inactivated Comments Full Code 06/15/2016 5:56 PM 08/09/2016 8:19 PM This order reflects the patients wishes and were consensually agreed upon. Question Answer Comments Discussion of Advance Directives occurred with: Patient Does the patient have a Living Will? No Does the patient have Health Care Power of Field Account Manager? No Full Code 05/15/2016 3:18 AM 06/08/2016 6:42 PM This order reflects the patients wishes and were consensually agreed upon. Question Answer Comments Discussion of Advance Directives occurred with: Not Discussed Care Teams Senior Medical Billing Specialist Relationship Specialty Start Date End Date Joe Peng DO [facility] [place] [facility] [place] [address] PCP - General Family Medicine 05/19/18 documented as of this encounter
--- OUTSIDE RECORDS SUMMARY | 2023-08-22 00:24 | External Medical Summary ---
Author Name Unknown Address Unknown Organization [id number]:[facility] [place] [address] Laboratory Report Ordering Provider Test Date Status APRYL MARINELLI 08/20/2023 12:12:20 Final Observation Date Value Abnormality Reference (Units ) Status Nucleated erythrocytes/100 leukocytes [Ratio] in Blood by Automated count 08/20/2023 12:12:20 Final Neutrophils.hypersegment ed [Presence] in Blood by Light microscopy 08/20/2023 12:12:20 Present Abnormal None Seen Final Variant lymphocytes [Presence] in Blood by Light microscopy 08/20/2023 12:12:20 Present Abnormal None Seen Final Performing Location [facility] [place] [address]
--- OUTSIDE RECORDS SUMMARY | 2023-08-22 00:24 | External Medical Summary | Summary of Care ---
Author Name Unknown Organization [facility] Address [address] [place] [address] Phone [phone] Care Team Providers Care Charge Entry Clerk Name Role Phone Joe Peng DO Primary Care Provider [phone] Reason for Visit * Reason Comments Chemotherapy Dacogen. 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) Encounter for antineoplastic chemotherapy Procedures IA DECITABINE INJECTION Corbin Nielson MD [address] [place] [address] Anc Hem/Onc Natalee Armstrong DEPT CLOSED - 06/18/23 [address] [place] [address] Referral ID Status Reason Start Date Expiration Date V isits Requested Visits Authorized [id number] Authorized 07/05/2021 08/04/2099 99 99 Encounter Details Date Type Department Care Team (Latest Contact Info) Description 08/20/2023 1:00 PM EST Hem/Onc Treatment Hematology/Oncolog y Treatment, [place] [address] [place] [address] Patti, Chair 5 Hem Onc Scenery [address] [place] [address] Acute myeloid leukemia not having achieved remission (HCC)*; 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); Encounter for antineoplastic chemotherapy Allergies Active Allergy Reactions Criticality Noted Date [...] 06/08/2016 07/31/2017 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 encounter 02/12/2012 04/27/2015 [facility] current use of ant icoagulant therapy 02/12/2012 04/27/2015 Overview: ICD-10 update of inactive term Other disorder of menstruati on and other abnormal bleeding from female genital tract 09/16/2007 04/27/2015 Uterine leiomyoma 09/16/2007 04/27/2015 documented as of this encounter (statuses as of 08/20/2023) Immunizations Name Administration Dates Next Due COVID-19 mRNA, LNP-s, No Pre serve, 2-Dose Series (Pfizer) 05/08/2021,08/29/2020,08/08/2020 DTaP Dipth/Tet/Acell Pertussis (Infanrix), Peds 12/25/2017,10/30/2017,09/25/2017 [...] on file documented as of this encounter Last Filed Vital Signs Vital Sign Reading Time Taken Comments Blood Pressure 118/73 08/20/2023 1:10 PM EST Pulse 85 08/20/2023 1:10 PM EST Temperature 37.1 C (98.8 F) 08/20/2023 1:10 PM ES T Respiratory Rate 18 08/20/2023 1:10 PM EST Oxygen Saturation 98% 08/20/2023 1:10 PM EST Inhaled Oxygen Concentration - - Weight 52.6 kg (116 lb) 08/20/2023 1:10 PM EST Height - - Body Mass Index 18.44 07/22/2023 10:08 AM EST documented in this encounter Functional Status Functional Status Response [...] No 06/15/2016 documented as of this encounter Nursing Notes * Katie Otoole RN - 08/20/2023 3:37 PM EST Goals: Patient will remain free from injury. Possible barriers to meeting goals: Fall risk d/t ambulation with IV pole. Stability of the patient: Moderately stable - low risk of patient condition declining or worsening Summary regarding today's goals: Met: Patient remained free of injury. Functional status at today's visit: Fully active, able to carry on all pre-disease performance without restriction The drug name, dose, infusion volume, rate and route of administration, expiration date and time, appearance and physical integrity of the drug and rate set on the pump and sequencing of drug administration (as applicable) were verified by me and second sign-in RN. Patient was assessed for symptoms or adverse side effects during treatment. Patient tolerated procedure well. Discharged in stable condition. * Katie Otoole RN - 08/20/2023 1:41 PM EST Chair 2. Patient arrived for dacogen treatment. Port accessed with no issues. Patient stated took her zofranat home at 10 am today. Chemo agents Dacogen. Appetite good Nausea/Vomiting no Diarrhea some but has been stable. Constipation no Mucositis no Fatigue no Bleeding no Infection no Rash no Numbness tingling no Pain no Radiation no ABN Labs WNL for treatment. Alt in Tx: no Return in 1 days. Safety and Risk for Injury Patient will remain free from injury. Ensure appropriate safety devices are available. Provide and maintain safe environment. documented in this encounter Plan of Treatment Upcoming Encounters Date Type Department Care Team (Late st Contact Info) Description 08/21/2023 1:00 PM EST Hem/Onc Treatment [address]ematology[address] [address] Patti, Chair [address] Hem On[address] [address] 08/22/2023 1:00 PM EST Hem/Onc Treatment Hematology/[address], [address] [address] 08/23/2023 1:00 PM EST Hem/Onc Treatment Hematology/[address]cology [address], [address] [phone] Patti, Chair 7 Hem Onc Scenery [address] [place], [place] [address] 09/17/2023 8:30 AM EST Laboratory Laboratory [facility] [place] [address] [place], [place] [phone] Patti, Lab Scenery [address] [place], [place] [address] 09/17/2023 9:00 AM EST Office Visit Hematology/Oncology [facility] [place] [address] [place], [place] [address] Emelyn Richard CRNP [address] [place] [address] [place] [address] 09/17/2023 9:30 AM EST Hem/Onc Treatment Hematology/Oncology Treatment, [place] [address] [facility], [place] [address] Patti, Chair 2 Hem Onc Scenery 200 [facility] [place], [place] [address] 09/18/2023 1:00 PM EST Hem/Onc Treatment Hematology/Oncology Treatment, [address], [place] [address] 09/19/2023 1:00 PM EST Hem/Onc Treatment Hematology/Oncology Treatment, [place] [address] [facility], [place] [address] Patti, Chair 3 Hem Onc Scenery [address] [place], [place] [address] 09/20/2023 1:00 PM EST Hem/Onc Treatment Hematology/Oncology Treatment, [place] [address] [facility], [place] [address] Patti, Chair 4 Hem Onc Scenery [facility] [place] [place] [address] 09/25/2023 1:30 PM EST Office Visit [facility], [address] [place] [address] Isatu Mitchell PA-C [address] [place] [address] 11/06/2023 1:00 PM EDT [facility] [employer] [address] [facility] [place] [address] Joe Peng DO [address] [facility] [place] [address] Scheduled Procedures Name Priority Associated Diagnoses Date/Ti [...] Depression Screening 06/19/2023 06/19/2022 TSH 12/11/2023 12/10/2022, 09/2021, 08/31/2020, Additional history exists Diabetic Eye Exam 01/22/2024 01/21/2023, , 07/09/2022, Additional history exists Mammogram 03/20/2024 03/20/2023, 03/05, 02/22/2023, Additional history exists Albumin/Creatinine Ratio 04/09/2024 023, 12/04/2021, 08/15/2020, Additional history exists GFR 08/20/2024 08/20/2023, 07/05, 07/16/2023, Additional history exists COLONOSCOPY-EVERY 3 YRS AGES [...] encounter Visit Diagnoses Diagnosis Acute myeloid leukemia not having achieved remission (HCC)- Primary 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) Acute myeloid leukemia, in relapse Encounter for antineoplastic chemotherapy documented in this encounter Administered Medications Active Administered Medications - up to 3 most recent administrations Medication Order MAR Action Action Date Dose Rate Site diphenhydrAMINE (Benadryl) inj 50 mg 50 mg, IV Push, ONCE PRN Other, Hypersensitivity Reaction, Starting on Sat08/20/23 at 1314, Until Sat08/21/23 at 1313, For 24 hours EPINEPHrine 1 MG/ML inj 0.3 mg 0.3 mg, Intramuscular, ONCE PRN Other, Hypersensitivity Reaction or Anaphylaxis, Starting on Sat08/20/23 at 1314, Until Sat08/21/23 at 1313, For 24 hours hEParin 100 UNIT/ML Lock Flush inj 500 Units 500 Units (5 mL), IV Lock, PRN Other, IV Flush, Starting on Sat08/20/23 at 1314, Until Sat08/21/23 at 1313, For 24 hours, Do not flush if lock, PICC, or central line not in place; IV infusing or unable to flush. Given 08/20/2023 3:24 PM EST 500 Units Hydrocortisone Sod Suc (PF) (Solu-Cortef) inj 100 mg 100 mg, IV Push, ONCE PRN Other, Hypersensitivity Reaction, Starting on Sat08/20/23 at 1314, Until Sat08/21/23 at 1313, For 24 hours NSS infusion 500 mL, Intravenous, at 50 mL/hr, CONTINUOUS, Starting on Sat08/20/23 at 1415, Until Sat08/21/23 at 0014 Start Infusion 08/20/2023 1:25 PM EST 500 mL 50 mL/hr sodium chloride 0.9 % flush central line 10 mL 10 mL, IV Push, PRN Other, IV Flush, Starting on Sat08/20/23 at 1314, Until Sat08/21/23 at 1313, For 24 hours, Do not flush if lock, PICC, or central line not in place; IV infusing or unable to flush. Given 08/20/2023 3:24 PM EST 10 mL Inactive Administered Medications - up to 3 most recent administrations Medication Order MAR Action Action Date Dose Rate Site Decitabine (Dacogen) 25.6 mg in NSS 100 mL infusion 25.6 mg (16 mg/m2 1.6 m2 Order-specific BSA), IV Piggyback, ONCE, 1 dose, On Sat08/20/23 at 1445, Administer over 60 Minutes, CAUTION: CHEMOTHERAPY HANDLE WITH GLOVES ! Start Infusion 08/20/2023 2:20 PM EST 25.6 mg 100 mL/hr ondansetron (Zofran) tab 8 mg 8 mg, Oral, ONCE, On Sat08/20/23 at 1415, For 1 dose Given By 08/20/2023 10:00 AM EST 8 mg documented in this encounter Advance Directives Latest Code Status on File Code Status Date Activated Date Inactivated Comments Full Code 04/02/2017 4:50 AM 04/17/2017 3:02 PM This order reflects the patients wishes and were consensually agreed upon. Question Answer Comments Discussion of Advance Directives occurred with: Family Does the patient have a Living Will? No Does the patient have Health Care Power of Corporate Compliance Manager? No Code Status History Code Status Date Activated Date Inactivated Comments Full Code 06/15/2016 5:56 PM 08/09/2016 8:19 PM This order reflects the patients wishes and were consensually agreed upon. Question Answer Comments Discussion of Advance Directives occurred with: Patient Does the patient have a Living Will? No Does the patient have Health Care Power of Corporate Compliance Manager? No Full Code 05/15/2016 3:18 AM 06/08/2016 6:42 PM This order reflects the patients wishes and were consensually agreed upon. Question Answer Comments Discussion of Advance Directives occurred with: Not Discussed Care Teams Charge Entry Clerk Relationship Specialty Start Date End Date Joe Peng DO [address] [place] [address] PCP - General Family Medicine 05/19/18 documented as of this encounter
--- OUTSIDE RECORDS SUMMARY | 2023-08-22 00:24 | External Medical Summary | Summary of Care ---
Author Name Unknown Organization [facility] Address [address] [place] [address] Phone [phone] Care Team Providers Care Technical Specialist Name Role Phone Joe Peng DO Primary Care Provider [phone] Encounter Details Date Type Department Care Team (Late st Contact Info) Description 08/18/2023 Orders Only Hematology/Oncology, [facility] [address] [place] [address] Corbin Nielson MD [address] [place] [address] Allergies Active Allergy Reactions Criticality Noted Date Comments Amoxicillin Nausea/vomiting 11/14/2015 Penicillins Nausea/vomiting Low 08/12/2007 tolerated cephalosporins in past Other reaction(s): Nausea Only Other reaction(s): "makes me nervous", Nausea documented as of this encounter (statuses as of 08/18/2023) Medications Medication Sig Dispensed Refills Start Date [...] as of this encounter (statuses as of 08/18/2023) Active Problems Problem Noted Date Diagnosed Date [...] as of this encounter (statuses as of 08/18/2023) Resolved Problems Problem Noted Date Diagnosed Date [...] 06/08/2016 07/31/2017 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 encounter 02/12/2012 04/27/2015 correction current use of ant icoagulant therapy 02/12/2012 04/27/2015 Overview: ICD-10 update of inactive term Other disorder of menstruati on and other abnormal bleeding from female genital tract 09/16/2007 04/27/2015 Uterine leiomyoma 09/16/2007 04/27/2015 documented as of this encounter (statuses as of 08/18/2023) Immunizations Name Administration Dates Next Due COVID-19 mRNA, LNP-s, No Pre serve, 2-Dose Series (Highlighter) 05/08/2021,08/29/2020,08/08/2020 DTaP Dipth/Tet/Acell Pertussis (Infanrix), Peds 12/25/2017,10/30/2017,09/25/2017 [...] Care Team (Late st Contact Info) Description 08/19/2023 9:00 AM EST Office Visit Hematology/Oncology [facility] [place] [address] [place] [address] Corbin Nielson MD [address] [place] [address] 08/20/2023 12:00 PM EST Laboratory Laboratory [facility] [place] [address] [place] [phone] Patti, Lab [facility] [address] [facility] [place] [address] 08/20/2023 1:00 PM EST Hem/Onc Treatment Hematology/[address]cology [address], [address] [address] Patti, Chair 5 Hem Onc [facility] 200 [facility] [place] [address] 08/21/2023 1:00 PM EST Hem/Onc Treatment [facility] [place] [facility] [address] Patti, Chair 10 Hem Onc Scenery [address] [place] [address] 08/22/2023 1:00 PM EST Hem/Onc Treatment [facility], [place] [facility] [address] 08/23/2023 1:00 PM EST Hem/Onc Treatment Hematology/Oncology [address], [address] [address] Patti, Chair 7 Hem Onc Scenery 200 [facility] [place] [address] 09/25/2023 1:30 PM EST Office Visit Interventional [facility] Center, [facility] [address] [place] [address] Isatu Mitchell PA-C [address] [place] [address] 11/06/2023 1:00 PM EDT Office Visit Family Practice [facility] [place] [address] [facility] [place] [address] Joe Peng DO [address] [facility] [place] [address] Scheduled Procedures Name Priority Associated Diagnoses Date/Ti [...] Depression Screening 06/19/2023 06/19/2022 TSH 12/11/2023 12/10/2022, 0509/2021, 08/31/2020, Additional history exists Diabetic Eye Exam [...] Not on filedocumented as of this encounter Advance Directives Latest Code Status on File Code Status Date Activated Date Inactivated Comments Full Code 04/02/2017 4:50 AM 04/17/2017 3:02 PM This order reflects the patients wishes and were consensually agreed upon. Question Answer Comments Discussion of Advance Directives occurred with: Family Does the patient have a Living Will? No Does the patient have Health Care Power of Territory Business Manager? No Code Status History Code Status Date Activated Date Inactivated Comments Full Code 06/15/2016 5:56 PM 08/09/2016 8:19 PM This order reflects the patients wishes and were consensually agreed upon. Question Answer Comments Discussion of Advance Directives occurred with: Patient Does the patient have a Living Will? No Does the patient have Health Care Power of Territory Business Manager? No Full Code 05/15/2016 3:18 AM 06/08/2016 6:42 PM This order reflects the patients wishes and were consensually agreed upon. Question Answer Comments Discussion of Advance Directives occurred with: Not Discussed Care Teams Technical Specialist Relationship Specialty Start Date End Date Joe Peng DO [address] [place] [address] PCP - General Family Medicine 05/19/18 documented as of this encounter
--- OUTSIDE RECORDS SUMMARY | 2023-08-22 00:24 | External Medical Summary | Summary of Care ---
Author Name Unknown Organization [facility] Address [address] [place] [address] Phone [phone] Care Team Providers Care Student Life Vice President Name Role Phone Joe Peng DO Primary Care Provider [phone] Reason for Visit * Auth/Cert Specialty Diagnoses / Procedures Referred By Roel t Referred To Contact Diagnoses Lumbar radiculopathy Lumbar radiculopathy [M54.16] Procedures INJECT DX/THER SUBSTANCE INTERLAMINAR LUMBAR/SACRAL W IMAGE GUIDE INJECTION SPINE LUMBAR OR SACRAL Referral ID Status Reason Start Date Expiration Date Visits Re quested Visits Authorized [id number] Encounter Details Date Type Department Care Team (Latest Contact Info) Description 08/12/2023 10:49 AM EST - 08/12/2023 11:42 AM EST Hospital Encounter OR [facility], Operating Room [facility] [address] [place] [phone] Stiven Ram DO [address] [place] [id number] Discharge Disposition: Home - Self Care Allergies Active Allergy Reactions Criticality Noted Date Comments Amoxicillin Nausea/vomiting 11/14/2015 Penicillins Nausea/vomiting Low 08/12/2007 tolerated cephalosporins in past Other reaction(s): Nausea Only Other reaction(s): "makes me nervous", Nausea documented as of this encounter (statuses as of 08/12/2023) Medications Medication Sig Dispensed Refills Start Date [...] every 6 hours as needed. 0 Active Gabapentin 300 MG Oral Capsule (Neurontin)Indicati ons:Lumbar radiculopathy Take 2 Capsules by mouth in the morning and 2 Capsules in the evening. 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 02/12/2012 04/27/2015 Overview: ICD-10 update of inactive term Other disorder of menstruati on and other abnormal bleeding from female genital tract 09/16/2007 04/27/2015 Uterine leiomyoma 09/16/2007 04/27/2015 documented as of this encounter (statuses as of 08/12/2023) Immunizations Name Administration Dates Next Due COVID-19 mRNA, LNP-s, No Pre serve, 2-Dose Series (WeStudy.In) 05/08/2021,08/29/2020,08/08/2020 DTaP Dipth/Tet/Acell Pertussis (Infanrix), Peds 12/25/2017,10/30/2017,09/25/2017 [...] Sign Reading Time Taken Comments Blood Pressure 148/85 08/12/2023 11:37 AM EST Pulse 73 08/12/2023 11:37 AM EST Temperature 36.4 C (97.5 F) 08/12/2023 11:[address] Respiratory Rate 15 08/12/2023 11:37 AM EST Oxygen Saturation 100% 08/12/2023 11:37 AM EST Inhaled Oxygen Concentration - - Weight - - Height - - Body Mass Index - - documented in this encounter Functional Status Functional [...] No 06/15/2016 documented as of this encounter Discharge Instructions * Discharge Instr - AVS* Stiven Ram DO - 08/12/2023 11:35 AM EST [facility] [address] [facility] [place] [address] Discharge Date: 08/12/2023 You may call [facility] at [phone] during business hours. For after-hours emergencies call 911. Your attending physician at the time of your discharge was: Stiven Ram DO [address] [place] [phone] The information below provides you with the instructions and the list of medications you need to betaking following discharge from the hospital. If you have any questions, please ask before leaving.Please carry this letter with you when you see your doctor in the clinic. Diet: Resume your normal diet If you are diabetic, follow your blood sugars closely for next 2-3 days as they are likely to be elevated. If you are having difficulty controlling your blood sugars call your family doctor or the physician that treats your diabetes. Activity: Do not engage in strenuous activity today Resume your normal activities tomorrow Do not soak in water for 24 hours. No swimming, hot tub or bath but showering is allowed. Do not use heat on the injection site for 24 hours. If uncomfortable ice may be helpful. Some injections may make your arms or legs weak for a few hours. Be extremely careful when walking or changing positions that you do not fall. Have someone assist you for the next 6 hours. If weakness or numbness becomes progressive CALL IMMEDIATELY or GO TO THE NEAREST EMERGENCY ROOM Keep a diary of your pain until seen in the office to help us determine how effective the injectionwas Do not restart physical therapy or chiropractic manipulation until 48 hours after your injection Call : If weakness or numbness suddenly becomes worse or become progressive If the injection site becomes red, swollen, warm to the touch, begins to bleed or drain fluid, or is excessively painful. If you have any questions Medications: Resume all the medications you were taking prior to your injection. Resume your anticoagulants tomorrow unless otherwise instructed by your family physician, serging machine operator automatic or the anticoagulation clinic. Additional Instructions: Please monitor for symptoms of high blood sugar such as frequent urination, flu-like symptoms and changes in your vision as well as blood sugar values >250mg/dL. If these occur, please report to your PCP and/or UrgentCare or the Emergency Department immediately. Driving: You may resume driving in 12-24 hours if no weakness is noted . Date you may return to work or school: N/A Follow Up: Follow-up with Dr. Ram or Isatu Mitchell PA-C in 6-8 weeks via telehealth or in- person appointment per your preference. documented in this encounter Progress Notes * Stiven Ram DO - 08/12/2023 11:35 AM EST [facility] [place] [address] [facility] [phone] OUTPATIENT SURGERY DISCHARGE SUMMARY NOTE Name: Codi Soto Location: OR [facility]/OR Date: 08/12/2023 Time: 11:35 AM Surgery Date: 08/12/2023 Procedure: Procedure(s): INJECTION SPINE LUMBAR OR SACRAL No laterality found for procedure #1 Surgeon: Surgeon(s): Stiven Ram DO Discharge Diagnosis: lumbar radicular pain After examination of this patient, I have determined she is ready for discharge to home when the patient meets criteria. Discharge instructions were given to the patient. Stiven Ram DO OR [facility], Operating Room [facility] [address] [place] [address] documented in this encounter H&P Notes * Stiven Ram DO - 08/12/2023 11:06 AM EST Interventional Pain H&P Subjective: History of Present Illness: Codi Soto is a 68 year old year-old female with a past medical history significant for lumbarradicular pain presenting for left L5/S1 FARZANEH to improve her pain and function. her pain is essentially unchanged since our last office visit with her. ASA 3 AW nml Review of Systems: A focused 12-pt ROS were of reviewed with the patient including difficulty with sleep, snoring, aspiration history, dysphagia, stomach pain, nausea and vomiting, severe headaches, confusion, open skin lesions or wounds, chest pain, shortness of breath, excessive thirst, somnolence, dysuria, incomplete bladder emptying, easy bruising, recent clotting problems or bleeding, depression or rushed thoughts unless noted previously. Review of patient's allergies indicates: Allergen Reactions Amoxicillin Nausea/vomiting Penicillins Nausea/vomiting tolerated cephalosporins in past Other reaction(s): Nausea Only Other reaction(s): "makes me nervous", Nausea Medications, Past Medical History, Past Surgical History reviewed and documented in Epic. See detailed report if needed. Pertinent Labs/Test Results: INR Date Value 06/11/2023 0.9 04/13/2017 1.02 No results found for: "CREATININE" Hemoglobin A1C (%) Date Value 12/10/2022 4.6 08/15/2020 4.7 No results found for: "AMPHETAMINE", "BARBITURATES", "BENZODIAZEPINES", "BUPRENORPHINE", "METHADONE", "OPIATES", "OXYCODONE", "PHENCYCLIDINE", "CANNABINOIDS", "TOX SCREEN", "URINE", "TOX SCREEN-SERUM", "TOX SCREEN, URINE" Imaging: I personally reviewed the imaging and my findings were . IR BIOPSY Narrative: PROCEDURE: CT-guided percutaneous bone marrow aspiration and core biopsy. INDICATION: Bone marrow biopsy ATTENDING (OPERATING PHYSICIAN): Arleen PERDOMO RESIDENT (OPERATING PHYSICIAN): None SUPPORTING PROVIDER (ENGINE SERVICE REPAIRER): None. CONSENT: After a detailed discussion of the procedure, risks, benefits and alternative treatment options, informed consent was obtained. TIME OUT: A time out procedure was performed. The patient's identification was verified. Informed consent with agreement of procedure, site and position was obtained. All necessary equipment was available prior to procedure. CONTRAST: No contrast administered. COMPLICATIONS: None. ANESTHESIA: Local lidocaine. IV Versed. IV Fentanyl. SEDATION TIME: Start to end: 1142 until 1152. Qualified nurse sedation observer KARLEE Carbajal. MEDICATIONS: See MAR PROCEDURE DESCRIPTION: After survey images were performed, the access site was selected overlying the left posterior iliac bone. The skin was anesthetized and under CT guidance an 8 gauge cannulated needle was advanced beyond the cortical bone. The inner stylet was removed, marrow aspirate was obtained and immediately given to the onsite hemocytology technologist for sample preparation. An additional aspirate was obtained in a heparinized syringe. After marrow aspiration, the cannula was further advanced into the marrow space to obtain a bone marrow core. The cannula was then withdrawn carefully to retrieve the bone marrow core biopsy specimen which was placed on a slide. The site was dressed. All samples were given to the on-site technologist for transport to lab. FINDINGS: CT images demonstrate the cannulated needle at the margin of the target and later within the medullary portion of the left iliac bone. No immediate complication noted on post biopsy imaging. Impression: IMPRESSION Successful image-guided percutaneous iliac bone marrow aspiration and core biopsy. Objective Physical Exam: Vital Signs: BP 156/94 | Pulse 74 | Temp 36.4 C (97.5 F) (Tympanic) | Resp 15 | LMP 03/20/2009 | SpO2 100% There is no height or weight on file to calculate BMI. General: No apparent distress. Eyes: pupils equal and round, sclera white, pupils midsize. ENT: mucous membranes moist Resp: Non-labored breathing CV: Extremities warm and well-perfused. Psych: Oriented; affect warm, insight good. Skin: No rashes or lesions appreciated on exposed skin Neuromuscular Exam: Facet loading neg, SLR pos, TTT over lumbar spine Assessment: Codi is a 68 year old year-old female with: Lumbosacral radicular pain Plan: The patient is undergoing L5/S1 FARZANEH today to alleviate her pain and improve her function. The risks, benefits and alternatives to the procedure were reviewed at length and the patient was provided the opportunity to ask questions which were answered to their voiced understanding. Following this comprehensive discussion, the patient opted to proceed. The patient was consented to the procedure following this comprehensive conversation. Stiven Ram DO OR [facility], Operating Room [address] [phone] documented in this encounter Nursing Notes * Sofía Palma RN - 08/12/2023 11:42 AM EST Pt tolerated procedure well. Pt has been visited by Dr. Ram. Discharge instructions reviewed with pt and pt has verbalized understanding of these teachings. Pt ready for discharge. * Darline Garibay RN - 08/12/2023 11:33 AM EST Band aid applied to area. Patient transferred to PACU 11 via wheelchair * Darline Garibay RN - 08/12/2023 11:26 AM EST Patient tolerating pain management injection well. documented in this encounter OR Notes * OR Surgeon - Stiven Ram DO - 08/12/2023 11:32 AM EST INTERLAMINAR LUMBAR EPIDURAL STEROID INJECTION DATE: 08/12/2023 PHYSICIAN: Stiven Ram DO PREOPERATIVE DIAGNOSIS: Lumbar spondylosis with lumbar radiculopathy. POSTOPERATIVE DIAGNOSIS: Lumbar spondylosis with lumbar radiculopathy. PROCEDURE PERFORMED: L4/5 interlaminar epidural steroid injection on the left side. Fluoroscopy for precise needle placement. ANESTHESIA: Local infiltration with 1% lidocaine. MONITORS: Automatic blood pressure cuff, pulse oximetry. There was no health education assistant, EBL or drains placed during this procedure. INDICATIONS: I had the pleasure of seeing Codi Soto ([id number]) in the pain management clinic at the [facility] today. Codi Soto is a 68 year old year-old femalehas a history of lumbar radiculopathy. she is here today for an interlaminar lumbar epidural steroid injection today. MEDICATIONS: No current facility-administered medications for this encounter. ALLERGIES: Review of patient's allergies indicates: Allergen Reactions Amoxicillin Nausea/vomiting Penicillins Nausea/vomiting tolerated cephalosporins in past Other reaction(s): Nausea Only Other reaction(s): "makes me nervous", Nausea REVIEW OF SYSTEMS: Negative for fever, chills, chest pain, SOB, bleeding abnormalities, nausea, vomiting, diarrhea, worsening edema, or new rashes. FOCUSED PHYSICAL EXAMINATION: The patient is awake, alert and oriented, and is in no acute distress. Vital signs are stable. The patient is afebrile. The rest of the PE is essentially unchanged from the patient's recent visit to our office. I explained the procedure to the patient including the risks, benefits and alternatives to the procedure. The risks discussed with the patient included but were not limited to: bleeding, infection, and damage to surrounding nerves, tissues, and organs, paralysis, increased pain, pain at the site ofinjection, allergic reaction, blood pressure instability, seizures, heart block, headaches, increase in blood sugar, worsening of glaucoma, blindness, manic episodes, mood instability, . Alternatives to the procedure were also explained and include: do nothing, surgery, medications, and physical therapy. The patient verbalized understanding and was willing to proceed. PROCEDURE IN DETAIL: An informed consent was obtained. The patient was taken to the procedure room,was positively identified by the staff and attending physician. The patient was positioned prone onthe procedure bed. Vital signs were monitored as above and remained stable throughout the procedure. The skin was prepped and draped in a standard sterile fashion. A surgical pause time-out was performed and agreed upon by the members of the team. Fluoroscopic view of the lumbar spine was obtained and the area of interest was identified. The skin and subcutaneous tissues were anesthetized using 1% lidocaine and 25-gauge 1-1/2 inch needle. After that, a 20-gauge, 3.5-inch epidural needle was advanced towards the L4/5 interlaminar window in the left paramedian position. AP, contralateral oblique and lateral views were used to assess appropriate needle position. Loss of resistance to air technique was utilized and was obtained at 5 cm from the skin. The needle's position was additionally verified by injecting radiopaque dye, which showed spread of the dye in the epidural space in AP and lateral views. After negative aspiration for CSF and blood, 60 mg of Kenalog diluted in 2 mL of 1% lidocaine and 0.5 mL of sterile preservative free normal saline was injected into the epidural space. The needle was withdrawn. The patient tolerated the procedure well. COMPLICATIONS: None. DISPOSITION: No follow-ups on file. 1. Return to clinic in 1-2 months for follow-up evaluation, sooner as needed. 2. Resume activity as tolerated. 3. Patient can drive after 12-24 hours if no weakness noted. 4. The patient will monitor their blood glucose over the next week as instructed and was advised tocontact us if the reading is greater than 250mg/dL or if they develop any signs or symptoms of hyperglycemia. Stiven Ram DO OR [facility], Operating Room [facility] [address] [facility] [place] [phone] documented in this encounter Plan of Treatment Upcoming Encounters Date Type Department Care Team (Late st Contact Info) Description 08/19/2023 9:00 AM EST Office Visit Hematology/Oncology [facility] [place] [address] [place], [place] [address] Corbin Nielson MD [address] [place] [address] 08/20/2023 12:00 PM EST Laboratory Laboratory [facility] [address] [place] [phone] [place], Lab [facility] [address] [facility] [place], [place] [address] 08/20/2023 1:00 PM EST Hem/Onc Treatment Hematology/Oncology Treatment, [place] [address] [facility], [place] [address] Patti, Chair 5 Hem Onc [facility] [address] [facility] [place], [place] [address] 08/21/2023 1:00 PM EST Hem/Onc Treatment Hematology/Oncology Treatment, [place] [address] [facility], [place] [address] Patti, Chair 10 Hem Onc [facility] [address] [facility] [place], [place] [address] 08/22/2023 1:00 PM EST Hem/Onc Treatment Hematology/Oncology Treatment, [place] [address] [facility], [place] [address] 08/23/2023 1:00 PM EST Hem/Onc Treatment Hematology/Oncology Treatment, [place] [address] [facility], [place] [address] Patti, Chair 7 Hem Onc [facility] [address] [facility] [place], [place] [address] 09/25/2023 1:30 PM EST Office Visit Interventional Pain Center, [facility] [address] [place] [address] Isatu Mitchell PA-C [address] [place] [address] 11/06/2023 1:00 PM EDT Office Visit [facility] [address] [place] [address] Joe Peng, [address] [place] [address] Scheduled Procedures Name Priority Associated Diagnoses Date/Ti me INJECTION SPINE LUMBAR OR SACRAL Lumbar radiculopathy 08/12/2023 11:21 AM EST COLONOSCOPY FLEXIBLE PROXIMAL DIAGNOSTIC Recall History of [...] Additional history exists Pap Smear Discontinued 08/13/2019, 08/08/2013, 03/05/2014, Additional history exists Pneumococcal Vaccine: 65+ [...] Not on filedocumented as of this encounter Procedures Procedure Name Priority Date/Time Associated Diagnosis Comments FLUORO INTERVENTIONAL PAIN PROCEDURE NONBILLABLE Routine 08/12/2023 11:38 AM EST documented in this encounter Results * FLUORO INTERVENTIONAL PAIN PROCEDURE NONBILLABLE (08/12/2023 11:38 AM EST) Narrative Scheduling, Silent - 08/12/2023 11:38 AM EST This procedure will not be read by a Radiologist. Please see operative note. Stiven ALBA FLUOROSCOPY documented in this encounter Administered Medications Inactive Administered Medications - up to 3 most recent administrations Medication Order MAR Action Action Date Dose Rate Site Iohexol (Omnipaque 180) inj 1 mL 1 mL, Intravenous, ONCE, On Sat08/12/23 at 1130, For 1 dose Given 08/12/2023 11:29 AM EST 2.5 mL lidocaine 1 % inj 20 mg 20 mg (2 mL), Subcutaneous, ONCE, On Sat08/12/23 at 1130, For 1 dose Given 08/12/2023 11:25 AM EST 5 mL Other-Specify Triamcinolone Acetonide (Kenalog) 40 MG/ML inj 40 mg 40 mg, Injection, ONCE, On Sat08/12/23 at 1130, For 1 dose Given 08/12/2023 11:30 AM EST 60 mg documented in this encounter Active and Recently Administered Medications Times are shown in EST. Scheduled Medication Order 08/10/2023 08/11/2023 08/12/2023 Iohexol (Omnipaque 180) inj 1 mL (COMPLETED) 1 mL, Intravenous, ONCE, On Sat08/12/23 at 1130, For 1 dose 1129 (Given - Provid er: Darline Garibay RN) lidocaine 1 % inj 20 mg (COMPLETED) 20 mg (2 mL), Subcutaneous, ONCE, On Sat08/12/23 at 1130, For 1 dose 1125 (Given - Provid er: Darline Garibay RN) Triamcinolone Acetonide (Kenalog) 40 MG/ML inj 40 mg (COMPLETED) 40 mg, Injection, ONCE, On Sat08/12/23 at 1130, For 1 dose 1130 (Given - Provid er: Darline Garibay RN) documented in this encounter Advance Directives Latest Code Status on File Code Status Date Activated Date Inactivated Comments Full Code 04/02/2017 4:50 AM 04/17/2017 3:02 PM This order reflects the patients wishes and were consensually agreed upon. Question Answer Comments Discussion of Advance Directives occurred with: Family Does the patient have a Living Will? No Does the patient have Health Care Power of Equipment Analyst? No Code Status History Code Status Date Activated Date Inactivated Comments Full Code 06/15/2016 5:56 PM 08/09/2016 8:19 PM This order reflects the patients wishes and were consensually agreed upon. Question Answer Comments Discussion of Advance Directives occurred with: Patient Does the patient have a Living Will? No Does the patient have Health Care Power of Equipment Analyst? No Full Code 05/15/2016 3:18 AM 06/08/2016 6:42 PM This order reflects the patients wishes and were consensually agreed upon. Question Answer Comments Discussion of Advance Directives occurred with: Not Discussed Care Teams Student Life Vice President Relationship Specialty Start Date End Date Joe Peng DO [address] [place] [address] PCP - General Family Medicine 05/19/18 documented as of this encounter
--- OUTSIDE RECORDS SUMMARY | 2023-08-22 00:24 | External Medical Summary | Summary of Care ---
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) Encounter for antineoplastic chemotherapy Procedures ID DECITABINE INJECTION Corbin Nielson MD [address] [place] [address] Anc Hem/Onc Natalee Armstrong DEPT CLOSED - 06/18/23 [address] [place] [address] Referral ID Status Reason Start Date Expiration Date V isits Requested Visits Authorized [id number] Authorized 07/05/2021 08/04/2099 99 99 Encounter Details Date Type Department Care Team (Latest Contact Info) Description 08/21/2023 1:00 PM EST Hem/Onc Treatment Hematology/Oncolog y Treatment, [place] [address] [place] [address] Patti, Chair 10 Hem Onc Scenery [address] [place] [address] Acute myeloid leukemia not having achieved remission (HCC)*; 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); Encounter for antineoplastic chemotherapy Allergies Active Allergy Reactions Criticality Noted Date Comments Amoxicillin Nausea/vomiting 11/14/2015 Penicillins Nausea/vomiting Low 08/12/2007 tolerated cephalosporins in past Other reaction(s): Nausea Only Other reaction(s): "makes me nervous", Nausea documented as of this encounter (statuses as of 08/21/2023) Medications Medication Sig Dispensed Refills Start Date [...] as of this encounter (statuses as of 08/21/2023) Active Problems Problem Noted Date Diagnosed Date [...] as of this encounter (statuses as of 08/21/2023) Resolved Problems Problem Noted Date Diagnosed Date [...] 06/08/2016 07/31/2017 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 encounter 02/12/2012 04/27/2015 alf current use of ant icoagulant therapy 02/12/2012 04/27/2015 Overview: ICD-10 update of inactive term Other disorder of menstruati on and other abnormal bleeding from female genital tract 09/16/2007 04/27/2015 Uterine leiomyoma 09/16/2007 04/27/2015 documented as of this encounter (statuses as of 08/21/2023) Immunizations Name Administration Dates Next Due COVID-19 [...] Sign Reading Time Taken Comments Blood Pressure 122/78 08/21/2023 1:10 PM EST Pulse 84 08/21/2023 1:10 PM EST Temperature 36.8 C (98.2 F) 08/21/2023 1:10 PM ES T Respiratory Rate 18 08/21/2023 1:10 PM EST Oxygen Saturation 99% 08/21/2023 1:10 PM EST Inhaled Oxygen Concentration - [...] as of this encounter Nursing Notes * Leeann Roche RN - 08/21/2023 2:38 PM EST Functional status at today's visit: Restricted in physically strenuous activity but ambulatory and able to carry out work on a light orsedentary nature, e.g. light house work, office work The drug name, dose, infusion volume, rate and route of administration, expiration date and time, appearance and physical integrity of the drug and rate set on the pump and sequencing of drug administration (as applicable) were verified by me and second sign-in RN. Patient was assessed for symptoms or adverse side effects during treatment. Goals: Patient will remain free from injury Possible barriers to meeting goals: ambulation with IV pole Stability of the patient: Moderately stable - low risk of patient condition declining or worsening Summary regarding today's goals: Met: Pt remained free of injury during treatment Patient tolerated treatment well and was discharged in stable condition. No coverage needed today. * Leenan Roche RN - 08/21/2023 2:21 PM EST Chair 7 Pt arrives for D2 Dacogen. She states she woke with a headache this morning, took tylenol which waseffective. Denies headache at present. Pt denies any other complaints. VAD accessed without difficulty, good blood return noted, flushed with NSS and fluids infusing. Safety and Risk for Injury Patient will remain free from injury. Ensure appropriate safety devices are available. Provide and maintain safe environment. documented in this encounter Plan of Treatment Upcoming Encounters Date Type Department Care Team (Late st Contact Info) Description 08/22/2023 1:00 PM EST Hem/Onc Treatment [address]ematology[address] [address] 08/23/2023 1:00 PM EST Hem/Onc Treatment Hematology/[address]cology [address], [address] [address] Patti Chair 7 Hem Onc [facility] [address] [place] [address] 09/17/2023 8:30 AM EST Laboratory Laboratory [facility] Patti [place] [address] [place] [id number] [place], Lab Scene [address] [place] [address] 09/17/2023 9:00 AM EST Office Visit Hematology/Oncology [facility] [address] [facility] [place] [address] Emelyn Richard CRNP [address] [facility] [place] [address] 09/17/2023 9:30 AM EST Hem/Onc Treatment Hematology/Oncology Treatment, [place] [address] [facility], [place] [address] Patti, Chair 2 Hem Onc Scenery 200 [facility] [place], [place] [address] 09/18/2023 1:00 PM EST Hem/Onc Treatment [facility] [place] [facility] [address] 09/19/2023 1:00 PM EST Hem/Onc Treatment Hematology/Oncology Treatment, [place] [address] [facility], [place] [address] Patti, Chair 3 Hem Onc Scenery 200 [place] [address] 09/20/2023 1:00 PM EST Hem/Onc Treatment Hematology/Oncology Treatment, [place] [address] [facility], [place] [address] Patti, Chair 4 Hem Onc Scenery 200 [facility] [place], [place] [address] 09/25/2023 1:30 PM EST Office Visit Interventional Pain Center, [facility] [address] [place] [address] [address] Isatu Mitchell PA-C [address] [place] [address] 11/06/2023 1:00 PM EDT Office Visit Family Practice [facility] [address] [place] [address] Joe Peng, DO [address] [place] [address] Scheduled Procedures Name Priority Associated Diagnoses Date/Ti [...] Additional history exists Pap Smear Discontinued 08/13/2019, 08/2013, 03/05/2014, Additional history exists Pneumococcal Vaccine: 65+ [...] ONCE PRN Other, Hypersensitivity Reaction, Starting on Sat08/21/23 at 1312, Until Verena 08/22/23 at 1311, For 24 hours EPINEPHrine 1 MG/ML inj 0.3 mg 0.3 mg, Intramuscular, ONCE PRN Other, Hypersensitivity Reaction or Anaphylaxis, Starting on Sat08/21/23 at 1312, Until Sat08/22/23 at 1311, For 24 hours hEParin 100 UNIT/ML Lock Flush inj 500 Units 500 Units (5 mL), IV Lock, PRN Other, IV Flush, Starting on Sat08/21/23 at 1312, Until Verena 08/22/23 at 1311, For 24 hours, Do not flush if lock, PICC, or central line not in place; IV infusing or unable to flush. Given 08/21/2023 2:30 PM EST 500 Units Hydrocortisone Sod Suc (PF) (Solu-Cortef) inj 100 mg 100 mg, IV Push, ONCE PRN Other, Hypersensitivity Reaction, Starting on Sat08/21/23 at 1312, Until Verena 08/22/23 at 1311, For 24 hours NSS infusion 500 mL, Intravenous, at 50 mL/hr, CONTINUOUS, Starting on Sat08/21/23 at 1415, Until Sat08/22/23 at 0014 Start Infusion 08/21/2023 1:15 PM EST 500 mL 50 mL/hr sodium chloride 0.9 % flush central line 10 mL 10 mL, IV Push, PRN Other, IV Flush, Starting on Sat08/21/23 at 1312, Until Sat08/22/23 at 1311, For 24 hours, Do not flush if lock, PICC, or central line not in place; IV infusing or unable to flush. Given 08/21/2023 2:30 PM EST 10 mL Inactive Administered Medications - up to 3 most recent administrations Medication Order MAR Action Action Date Dose Rate Site Decitabine (Dacogen) 25.6 mg in NSS 100 mL infusion 25.6 mg (16 mg/m2 1.6 m2 Order-specific BSA), IV Piggyback, ONCE, 1 dose, On Sat08/21/23 at 1445, Administer over 60 Minutes, CAUTION: CHEMOTHERAPY HANDLE WITH GLOVES ! Start Infusion 08/21/2023 1:28 PM EST 25.6 mg 100 mL/hr ondansetron (Zofran) tab 8 mg 8 mg, Oral, ONCE, On Sat08/21/23 at 1415, For 1 dose Given By 08/21/2023 10:00 AM EST 8 mg documented in [...] the patient have Health Care Power of Supervisor Boat Outfitting? No Code Status History Code Status Date Activated Date Inactivated Comments Full Code 06/15/2016 5:56 PM 08/09/2016 8:19 PM This order reflects the patients wishes and were consensually agreed upon. Question Answer Comments Discussion of Advance Directives occurred with: Patient Does the patient have a Living Will? No Does the patient have Health Care Power of Supervisor Boat Outfitting? No Full Code 05/15/2016 3:18 AM 06/08/2016 6:42 PM This order reflects the patients wishes and were consensually agreed upon. Question Answer Comments Discussion of Advance Directives occurred with: Not Discussed Care Teams Seamless Tube Mill Operator Relationship Specialty Start Date End Date Joe Peng DO [address] [place], [place] [id number] PCP - General Family Medicine 05/19/18 documented as of this encounter
--- OUTSIDE RECORDS SUMMARY | 2023-08-22 00:24 | External Medical Summary | Summary of Care ---
Author Name Unknown Organization [facility] Address [address] [place] [address] Phone [phone] Care Team Providers Care Impersonator Character Name Role Phone Brenda Daniels DO Primary Care Provider [phone] Reason for Visit * Reason Onset Date Comments Medication Refill 08/14/2023 Encounter Details Date Type Department Care Team (Late st Contact Info) Description 08/14/2023 Refill Family Practice [facility] [place] [address] [place] [address] Brenda Daniels DO [address] [place] [address] Lumbar radiculopathy Allergies Active Allergy Reactions Criticality Noted Date Comments Amoxicillin Nausea/vomiting 11/14/2015 Penicillins Nausea/vomiting Low 08/12/2007 tolerated cephalosporins in past Other reaction(s): Nausea Only Other reaction(s): "makes me nervous", Nausea documented as of this encounter (statuses as of 08/14/2023) Medications Medication Sig Dispensed Refills Start Date End Date Status Calcium Carb-Cholecalcifer ol 1000-800 MG-UNIT Oral Tablet Take 1 Tablet [...] Chloride ER 20 MEQ Oral Tablet Extended ReleaseIndications :Hypokalemia Take 1 Tablet by mouth in the morning. 90 Tablet 1 2 Active Prochlorperazine Maleate 10 MG Oral Tablet (Compazine) Take by mouth 1 Tablet every 8 hours as needed for Nausea. Every 6 hours as needed for nausea 30 Tablet 11 2 Active LORazepam 0.5 MG Oral Tablet (Ativan)Indication s:Anxiety disorder due to medical condition Take by mouth 1 Tablet daily as needed for Anxiety. 30 Tablet 3 2 Active Levothyroxine Sodium 150 MCG Oral Tablet (Levoxyl)Indicatio ns:Acquired hypothyroidism TAKE 1 TABLET IN THE MORNING AT LEAST 30 MINUTESPRIOR TO BREAKFAST OR OTHERMEDICATIONS 90 Tablet 1 3 Active Omeprazole 20 MG Oral Capsule Delayed Release (PriLOSEC)Indicati ons:Gastroesophage al reflux disease without esophagitis TAKE 1 CAPSULE DAILY 90 Capsule 1 3 Active Acetaminophen 500 MG Oral Tablet Take 1 Tablet by mouth every 6 hours as needed. 0 Active Metoprolol Succinate ER 25 MG Oral Tablet Extended Release 24 Hour (toPROL XL)Indications:Uri otsubo cardiomyopathy TAKE 1/2 TABLET DAILY 45 Tablet 3 3 Active Ondansetron 8 MG Oral Tablet DisintegratingIndi cations:Acute myeloid leukemia in remission (HCC) Place 1 Tablet on tongue every 8 hours as needed for Nausea. dissolve on tongue. 30 Tablet 2 3 Active Vitamin B-12 1000 MCG Oral Tablet (Cyanocobalamin) TAKE 1 TABLET BY MOUTH EVERY DAY IN THE MORNING 90 Tablet 1 3 Active HYDROcodone-Acetam inophen 5-325 MG Oral Tablet Take 1 Tablet by mouth every 8 hours as needed for Pain, Mild. 15 Tablet 0 3 Active busPIRone HCl 10 MG Oral Tablet (Buspar) 0 3 Active Sodium Fluoride 5000 PPM 1.1 % Dental Paste USE DIRECTED ONCE A DAY AT BEDTIME 0 3 Active Gabapentin 300 MG Oral Capsule (Neurontin)Indicat ions:Lumbar radiculopathy Take 2 Capsules by mouth in the morning and 2 Capsules in the evening. 360 Capsule 1 4 Active Gabapentin 300 MG Oral Capsule (Neurontin)Indicat ions:Lumbar radiculopathy Take 2 Capsules by mouth in the morning and 2 Capsules in the evening. 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 02/12/2012 04/27/2015 Overview: ICD-10 update of inactive term Other disorder of menstruati on and other abnormal bleeding from female genital tract 09/16/2007 04/27/2015 Uterine leiomyoma 09/16/2007 04/27/2015 documented as of this encounter (statuses as of 08/14/2023) Immunizations Name Administration Dates Next Due COVID-19 mRNA, LNP-s, No Pre serve, 2-Dose Series ([place]a) 05/08/2021,08/29/2020,08/08/2020 DTaP Dipth/Tet/Acell Pertussis (Infanrix), Peds 12/25/2017,10/30/2017,09/25/2017 [...] No 06/15/2016 documented as of this encounter Miscellaneous Notes * Telephone Encounter - Brenda Daniels DO - 08/14/2023 12:37 PM ESTSigned Prescriptions: Disp Refills Gabapentin 300 MG Oral Capsule (Neurontin) 360 Ca*1 Sig: Take 2 Capsules by mouth in the morning and 2 Capsules in the evening. Authorizing Provider: BRENDA DANIELS * Telephone Encounter - Yumi Triana, retail sales clerk - 08/14/2023 12:10 PM EST Pt is going to mail order and needs ninety day refil Did you pend patient's preferred pharmacy and medication before forwarding? Pharmacy: [facility]- [place] Pending Prescriptions: Disp Refills Gabapentin 300 MG Oral Capsule (Neurontin)360 Ca*1 Sig: Take 2 Capsules by mouth in the morning and 2 Capsules in the evening. Last Visit: 07/09/2023 (in office), 04/03/2022 (telemedicine) Next Visit: 11/06/2023 If no future appointments scheduled, and last appointment is greater than a year ago, please schedule patient for a follow-up appointment Last date the medication was ordered: Is this request for a controlled substance?No Urine Drug Screen:No results found. However, due to the size of the patient record, not all encounters were searched. Please check Results Review for a complete set of results. Patient Phone Numbers Labs: Lab Results Component Value Date/Time CREAT 0.8 07/23/2023 11:20 AM CREAT 0.9 08/31/2020 01:01 PM POTASSIUM 4.4 07/23/2023 11:20 AM POTASSIUM 4.0 08/31/2020 01:01 PM TSH 0.48 12/10/2022 08:15 AM TSH 3.02 08/31/2020 01:04 PM LDLCALC 210 (H) 08/20/2018 08:48 AM LDLDIRECT 75 04/17/2021 09:30 AM LDLDIRECT NOT APPLICABLE 08/20/2018 08:48 AM LDLDIRECT 131 (H) 10/24/2010 07:58 AM ALT 35 07/23/2023 11:20 AM ALT 28 08/31/2020 01:01 PM HGBA1C 4.6 12/10/2022 08:15 AM HGBA1C 4.7 08/15/2020 07:29 AM documented in this encounter Plan of Treatment Upcoming Encounters Date Type Department Care Team (Late st Contact Info) Description 08/19/2023 9:00 AM EST Office Visit Hematology/Oncology [facility] [place] [address] [place] [address] Corbin Nielson MD [address] [place] [address] 08/20/2023 12:00 PM EST Laboratory Laboratory [facility] [place] [address] [place] [phone] Celso Armstrong [address] [place] [address] 08/20/2023 1:00 PM EST Hem/Onc Treatment Hematology/Oncology Treatment, [place] [address] [facility], [place] [address] Patti, Chair 5 Hem Onc Scenery [address] [place] [address] 08/21/2023 1:00 PM EST Hem/Onc Treatment Hematology/Oncology Treatment, [place] [address] [facility] [place] [address] Patti, Chair 10 Hem Onc Scenery [address] [facility] [place] [address] 08/22/2023 1:00 PM EST Hem/Onc Treatment Hematology/Oncology Treatment, [place] [address] [facility], [place] [address] 08/23/2023 1:00 PM EST Hem/Onc Treatment [facility] [place] [facility] [address] Patti, Chair 7 Hem Onc [facility] [address] [facility] [place] [address] 09/25/2023 1:30 PM EST Office Visit Interventional Pain Center, [facility] [address] [place] [address] Isatu Mitchell PA-C [address] [place] [address] 11/06/2023 1:00 PM EDT Office Visit Family Practice [facility] [place] [address] [place] [address] Brenda Daniels, DO [address] [facility] [place] [address] Scheduled Procedures Name Priority Associated Diagnoses Date/Ti me COLONOSCOPY FLEXIBLE PROXIMAL DIAGNOSTIC Recall History of colon polyps Health Maintenance Due Date Last Done Comments Zoster Vaccines (1 of 2) 01/03/1975 Hepatitis B (1 of 3 - Risk 3-dose series) 2016 Diabetic Foot Exam 01/10/2022 01/10/2021, 1 , 05/19/2018 COVID-19 Vaccine (4 - 2023-24 season) 2023 05/08/2021, 08/29/2020, 08/08/2020 HbA1c 06/12/2023 [...] as of this encounter Visit Diagnoses Diagnosis Lumbar radiculopathy Thoracic or lumbosacral neuritis or radiculitis, unspecified documented in this encounter Advance Directives Latest Code Status on File Code Status Date Activated Date Inactivated Comments Full Code 04/02/2017 4:50 AM 04/17/2017 3:02 PM This order reflects the patients wishes and were consensually agreed upon. Question Answer Comments Discussion of Advance Directives occurred with: Family Does the patient have a Living Will? No Does the patient have Health Care Power of Fiscal Clerk? No Code Status History Code Status Date Activated Date Inactivated Comments Full Code 06/15/2016 5:56 PM 08/09/2016 8:19 PM This order reflects the patients wishes and were consensually agreed upon. Question Answer Comments Discussion of Advance Directives occurred with: Patient Does the patient have a Living Will? No Does the patient have Health Care Power of Fiscal Clerk? No Full Code 05/15/2016 3:18 AM 06/08/2016 6:42 PM This order reflects the patients wishes and were consensually agreed upon. Question Answer Comments Discussion of Advance Directives occurred with: Not Discussed Care Teams Impersonator Character Relationship Specialty Start Date End Date Brenda Daniels DO [address] [place] [address] PCP - General Family Medicine 05/19/18 documented as of this encounter
--- OUTSIDE RECORDS SUMMARY | 2023-08-22 00:24 | External Medical Summary ---
Author Name Unknown Address Unknown Organization [facility] [place] [address] Laboratory Report Ordering Provider Test Date Status APRYL MARINELLI 08/20/2023 12:12:20 Final Observation Date Value Abnormality Reference (Units ) Status BUN 08/20/2023 12:12:20 11 6-20 (mg/dL) Final Creatinine 08/20/2023 12:12:20 0.9 0.5-1.0 (mg/dL) Final Glomerular filtration rate/1.73 sq M.predicted [Volume Rate/Area] in Serum, Plasma or Blood by Creatinine-based formula (CKD-EPI) 08/20/2023 12:12:20 70 >=60 (mL/min) Final eGFR is calculated based on the CKD-EPI 2020 equation SODIUM 08/20/2023 12:12:20 140 135-146 (m mol/L) Final Potassium 08/20/2023 12:12:20 4.2 3.5-5.1 (m mol/L) Final Cl 08/20/2023 12:12:20 108 Above high normal 98 -107 (mmol/L) Final CO2 08/20/2023 12:12:20 23 22-32 (mmo l/L) Final Anion gap 08/20/2023 12:12:20 9 7-15 (mmol /L) Final Glucose 08/20/2023 12:12:20 105 70-120 (mg /dL) Final Albumin 08/20/2023 12:12:20 3.7 Below low normal 3.8 -5.0 (g/dL) Final AST (Aspartate aminotransferase) 08/20/2023 12:12:20 29 10-35 (U/L) Fin al Alk Phos 08/20/2023 12:12:20 276 Above high normal 35 -130 (U/L) Final Bilirubin, Total 08/20/2023 12:12:20 0.4 <=1 .2 (mg/dL) Final Calcium 08/20/2023 12:12:20 8.6 8.4-10.2 ( mg/dL) Final Protein 08/20/2023 12:12:20 6.2 6.0-8.3 (g /dL) Final ALT (Alanine aminotransferase) 08/20/2023 12:12:20 43 Above high normal 10-35 (U/L) Final Performing Location [facility] [address] [place] [address]
--- OUTSIDE RECORDS SUMMARY | 2023-08-22 00:24 | External Medical Summary ---
Author Name Unknown Address Unknown Organization [facility] [place] [address] Laboratory Report Ordering Provider Test Date Status APRYL MARINELLI 08/20/2023 12:12:20 Final Observation Date Value Abnormality Reference (Units ) Status SYNC LEUKOCYTES IN BLOOD BY AUTOMATED COUNT 08/20/2023 12:12:20 6.46 4.00-10.80 (K/uL) Final Segs 08/20/2023 12:12:20 74.0 40.0-75.0 (%) Final Lymphs % 08/20/2023 12:12:20 18.0 18.0-42.0 (%) Final Monos 08/20/2023 12:12:20 6.5 1.0-11.0 (%) Final Eosinophils 08/20/2023 12:12:20 0.9 0.0-6.0 (%) Final Basos 08/20/2023 12:12:20 0.6 0.0-2.0 (%) Final Absolute Segs 08/20/2023 12:12:20 4.78 1.80-7.70 (K/uL) Final Lymphs, absolute 08/20/2023 12:12:20 1.16 1.00-4.80 (K/ul) Final Monos, Abs 08/20/2023 12:12:20 0.42 0.00-1.10 (K/uL) Final Eos, Abs 08/20/2023 12:12:20 0.06 0.00-0.70 (K/uL) Final Basos, Abs 08/20/2023 12:12:20 0.04 0.00-0.20 (K/uL) Final Performing Location [facility] [place] [address]
--- OUTSIDE RECORDS SUMMARY | 2023-08-22 00:25 | External Medical Summary | Summary of Care ---
Author Name Unknown Organization [facility] Address [address] [place] [address] Phone [phone] Care Team Providers Care Labor Relations Representative Name Role Phone Joe Peng DO Primary Care Provider [phone] Reason for Visit * Reason Onset Date Comments Test Results Biopsy 07/25/2023 Encounter Details Date Type Department Care Team (Late st Contact Info) Description 07/25/2023 Telephone Hematology/Oncology [facility] Patti [place] [address] [facility] [place] [address] Corbin Nielson MD [address] [facility] [place] [address] Test Results Biopsy Allergies Active Allergy Reactions Criticality Noted Date Comments Amoxicillin Nausea/vomiting 11/14/2015 Penicillins Nausea/vomiting Low 08/12/2007 tolerated cephalosporins in past Other reaction(s): Nausea Only Other reaction(s): "makes me nervous", Nausea documented as of this encounter (statuses as of 07/25/2023) Medications Medication Sig Dispensed Refills Start Date [...] as of this encounter (statuses as of 07/25/2023) Active Problems Problem Noted Date Diagnosed Date [...] as of this encounter (statuses as of 07/25/2023) Resolved Problems Problem Noted Date Diagnosed Date [...] 06/08/2016 07/31/2017 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 encounter 02/12/2012 04/27/2015 skilled nursing current use of ant icoagulant therapy 02/12/2012 04/27/2015 Overview: ICD-10 update of inactive term Other disorder of menstruati on and other abnormal bleeding from female genital tract 09/16/2007 04/27/2015 Uterine leiomyoma 09/16/2007 04/27/2015 documented as of this encounter (statuses as of 07/25/2023) Immunizations Name Administration Dates Next Due COVID-19 mRNA, LNP-s, No Pre serve, 2-Dose Series (ENDOGENX) 05/08/2021,08/29/2020,08/08/2020 DTaP Dipth/Tet/Acell Pertussis (Infanrix), Peds 12/25/2017,10/30/2017,09/25/2017 [...] Influenza, Split, I IV3, With Preserve, Inj 05/30/2015,05/17/2014,05/16/2014,05/12,05/30/2012,06/08/2011,05/10/2010 TDAP (age 10 and older)(Boostrix) 09/30/2017 TDAP (age 11 and older)(Adacel) 10/17/2010,10/17 documented as of this encounter Social History [...] encounter Miscellaneous Notes * Telephone Encounter - Timothy Haynes RN - 07/25/2023 2:19 PM EST Pt given results in private room @ clinic. * Telephone Encounter - Marce Leyva OSA - 07/25/2023 1:08 PM EST Patient returning missed call. Timothy visiting with patient physically while she is in waiting room for tx. * Telephone Encounter - Timothy Haynes RN - 07/25/2023 11:50 AM EST Called patient to inform of results, no answer, LMOM with return #. * Telephone Encounter - Timothy Haynes RN - 07/25/2023 11:42 AM EST ----- Message from Corbin Nielson MD sent at 07/25/2023 10:22 AM EST ----- On Bone Marrow No morphologic or immunophenotypic increase in blasts identified. Flow cytometric immunophenotypic analysis ([id number]) shows No phenotypic evidence of recurrent leukemia. documented in this encounter Plan of Treatment Upcoming Encounters Date Type Department Care Team (Latest Contact Info) Description 07/26/2023 1:30 PM EST Hem/Onc Treatment Hematology/Oncolog y Treatment [place] [address] [facility] [place] [address] 08/12/2023 11:20 AM EST Hospital Encounter OR [facility], Operating Room [facility] [address] [place] [phone] Stiven Ram, DO [address] [place] [address] 08/12/2023 11:20 AM EST - 08/12/2023 11:45 AM EST Surgery OR [facility], Operating Room [facility] [address] [place] [phone] Stiven Ram, DO [address] [place] [address] INJECTION SPINE LUMBAR OR SACRAL 08/13/2023 9:30 AM EST Office Visit Hematology/Oncolog y [facility] [place]atti [place] [address] [place] [address] Corbin Nielson MD [address] [place] [address] 08/20/2023 12:00 PM EST Laboratory Laboratory Natalee Armstrong [place] [address] [place] [id number] Patti, Lab [facility] [address] [facility] [place] [address] 08/20/2023 1:00 PM EST Hem/Onc Treatment Hematology/Oncolog y Treatment, [place] [address] [place] [address] Patti, Chair 5 Hem Onc [facility] [address] [place] [address] 08/21/2023 1:00 PM EST Hem/Onc Treatment [facility] [place] [facility] [address] 08/22/2023 1:00 PM EST Hem/Onc Treatment H[facility]olog [facility] [place] [facility] [address] 08/23/2023 1:00 PM EST Hem/Onc Treatment Hematology/Oncolog [facility], [place] [facility] [address] Patti, Chair 7 Hem Onc [address] [place] [address] 11/06/2023 1:00 PM EDT Office Visit Family Practice [facility] [place] [address] [facility] [place] [address] Joe Peng, DO 200 [facility] [place] [address] Scheduled Procedures Name Priority Associated Diagnoses Date/Ti me INJECTION SPINE LUMBAR OR SACRAL Lumbar radiculopathy 08/12/2023 11:20 AM EST COLONOSCOPY FLEXIBLE PROXIMAL DIAGNOSTIC Recall [...] the patient have Health Care Power of [employer] Dual Rate Supervisor? No Code Status History Code Status Date Activated Date Inactivated Comments Full Code 06/15/2016 5:56 PM 08/09/2016 8:19 PM This order reflects the patients wishes and were consensually agreed upon. Question Answer Comments Discussion of Advance Directives occurred with: Patient Does the patient have a Living Will? No Does the patient have Health Care Power of [employer] Dual Rate Supervisor? No Full Code 05/15/2016 3:18 AM 06/08/2016 6:42 PM This order reflects the patients wishes and were consensually agreed upon. Question Answer Comments Discussion of Advance Directives occurred with: Not Discussed Care Teams Labor Relations Representative Relationship Specialty Start Date End Date Joe Peng DO [facility] [address] PCP - General Family Medicine 05/19/18 documented as of this encounter
--- OUTSIDE RECORDS SUMMARY | 2023-08-22 00:25 | External Medical Summary | Summary of Care ---
Author Name Unknown Organization [facility] Address [address] [place] [address] Phone [phone] Care Team Providers Care Director Phone Name Role Phone Joe Peng DO Primary Care Provider [phone] Reason for Visit * Reason Onset Date Comments Test Results Biopsy 07/25/2023 Encounter Details Date Type Department Care Team (Late st Contact Info) Description 07/25/2023 Telephone Hematology/Oncology [facility] Patti [place] [address] [facility] [place] [address] Corbin Nielson MD 200 [facility] [place] [address] Test Results Biopsy Allergies Active Allergy Reactions [...] 06/08/2016 07/31/2017 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 encounter 02/12/2012 04/27/2015 senior care current use of ant icoagulant therapy 02/12/2012 04/27/2015 Overview: ICD-10 update of inactive term Other disorder of menstruati on and other abnormal bleeding from female genital tract 09/16/2007 04/27/2015 Uterine leiomyoma 09/16/2007 04/27/2015 documented as of this encounter (statuses as of 07/25/2023) Immunizations Name Administration Dates Next Due COVID-19 mRNA, LNP-s, No Pre serve, 2-Dose Series (Fishin' Glue) 05/08/2021,08/29/2020,08/08/2020 DTaP Dipth/Tet/Acell Pertussis (Infanrix), Peds 12/25/2017,10/30/2017,09/25/2017 [...] encounter Miscellaneous Notes * Telephone Encounter - Marce Leyva OSA [...] in blasts identified. Flow cytometric immunophenotypic analysis ([id number]) shows No phenotypic evidence of recurrent leukemia. documented in this encounter Plan of Treatment Upcoming Encounters Date Type Department Care Team (Latest Contact Info) Description 07/26/2023 1:30 PM EST Hem/Onc Treatment Hematology/Oncolog y Treatment, [place] [address] [place] [id number] 08/12/2023 11:20 AM EST Hospital Encounter [facility], Operating Room [facility] [address] [place] [address] Stiven Ram, DO [address] [place] [address] 08/12/2023 11:20 AM EST - 08/12/2023 11:45 AM EST Surgery OR [facility], Operating Room [facility] [address] [place] [address] Stiven Ram, DO [address] [place] [phone] INJECTION SPINE LUMBAR OR SACRAL 08/13/2023 9:30 AM EST Office Visit Hematology/Oncolog y [facility] Patti [place] [address] [place] [address] Corbni Nielson MD [address] [place] [address] 08/20/2023 12:00 PM EST Laboratory Laboratory [facility] Patti [place] [address] [place] [phone] Patti, Lab [address] [facility] [place] [address] 08/20/2023 1:00 PM EST Hem/Onc Treatment Hematology/Oncolog y Treatment, [place] 200 [facility] [place] [address] Patti, Chair 5 Hem Onc [address] [address] [place] [address] 08/21/2023 1:00 PM EST Hem/Onc Treatment Hematology/Oncolog y Treatment, [place] 200 [facility] [place] [address] 08/22/2023 1:00 PM EST Hem/Onc Treatment Hematology/Oncolog y Treatment, [place] 200 [facility] [place] [address] 08/23/2023 1:00 PM EST Hem/Onc Treatment Hematology/Oncolog y Treatment, [place] [address] [place] [address] Patti, Chair 7 Hem Onc [facility] [address] [place] [address] 11/06/2023 1:00 PM EDT Office Visit Family Practice [facility] Patti [place] [address] [place] [address] Joe Peng, DO 200 [facility] [place] [address] Scheduled Procedures Name Priority Associated Diagnoses Date/Ti [...] the patient have Health Care Power of [employer] Membership Sales Agent? No Code Status History Code Status Date Activated Date Inactivated Comments Full Code 06/15/2016 5:56 PM 08/09/2016 8:19 PM This order reflects the patients wishes and were consensually agreed upon. Question Answer Comments Discussion of Advance Directives occurred with: Patient Does the patient have a Living Will? No Does the patient have Health Care Power of Automobile [employer] Membership Sales Agent? No Full Code 05/15/2016 3:18 AM 06/08/2016 6:42 PM This order reflects the patients wishes and were consensually agreed upon. Question Answer Comments Discussion of Advance Directives occurred with: Not Discussed Care Teams Director Phone Relationship Specialty Start Date End Date Joe Peng DO [address] [place] [address] PCP - General Family Medicine 05/19/18 documented as of this encounter
--- OUTSIDE RECORDS SUMMARY | 2023-08-22 00:25 | External Medical Summary | Summary of Care ---
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) Encounter for antineoplastic chemotherapy Procedures [place] DECITABINE INJECTION Corbin Nielson MD [address] [place] [address] Anc Hem/Onc Natalee Armstrong DEPT CLOSED - 06/18/23 [address] [place] [address] Referral ID Status Reason Start Date Expiration Date V isits Requested Visits Authorized [id number] Authorized 07/05/2021 08/04/2099 99 99 Encounter Details Date Type Department Care Team (Latest Contact Info) Description 07/26/2023 1:30 PM EST Hem/Onc Treatment Hematology/Oncolog y Treatment, [place] [address] [place], [place] [id number] Acute myeloid leukemia not having achieved remission (HCC)*; 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); Encounter for antineoplastic chemotherapy Allergies Active Allergy Reactions Criticality Noted Date Comments Amoxicillin Nausea/vomiting 11/14/2015 Penicillins Nausea/vomiting Low 08/12/2007 tolerated cephalosporins in past Other reaction(s): Nausea Only Other reaction(s): "makes me nervous", Nausea documented as of this encounter (statuses as of 07/26/2023) Medications Medication Sig Dispensed Refills Start Date [...] as of this encounter (statuses as of 07/26/2023) Active Problems Problem Noted Date Diagnosed Date [...] as of this encounter (statuses as of 07/26/2023) Resolved Problems Problem Noted Date Diagnosed Date [...] 06/08/2016 07/31/2017 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 encounter 02/12/2012 04/27/2015 retirement current use of ant icoagulant therapy 02/12/2012 04/27/2015 Overview: ICD-10 update of inactive term Other disorder of menstruati on and other abnormal bleeding from female genital tract 09/16/2007 04/27/2015 Uterine leiomyoma 09/16/2007 04/27/2015 documented as of this encounter (statuses as of 07/26/2023) Immunizations Name Administration Dates Next Due COVID-19 mRNA, LNP-s, No Pre serve, 2-Dose Series (Diet TV) 05/08/2021,08/29/2020,08/08/2020 DTaP Dipth/Tet/Acell Pertussis (Infanrix), Peds 12/25/2017,10/30/2017,09/25/2017 [...] Sign Reading Time Taken Comments Blood Pressure 117/76 07/26/2023 1:35 PM EST Pulse 77 07/26/2023 1:35 PM EST Temperature 36.5 C (97.7 F) 07/26/2023 1:35 PM ES T Respiratory Rate 18 07/26/2023 1:35 PM EST Oxygen Saturation 99% 07/26/2023 1:35 PM EST Inhaled Oxygen Concentration - - [...] Nursing Notes * Leeann Roche RN - 07/26/2023 3:11 PM EST Functional status at today's visit: [...] treatment. Goals: Patient will remain free from injury. Possible barriers to meeting goals: ambulation with IV pole Stability of the patient: Moderately stable - low risk of patient condition declining or worsening Summary regarding today's goals: Met: Pt remained free of injury during treatment. Patient tolerated treatment well and was discharged in stable condition. No coverage needed today. * Leeann Roche RN - 07/26/2023 2:06 PM EST Chair 11 Chemo agents dacogen Appetite good Nausea/Vomiting noo Diarrhea no Constipation no Mucositis no Fatigue yes, rests as needed Bleeding no Infection no Rash no Numbness tingling no Pain no Radiation no ABN Labs WNL for treatment Alt in Tx: no Return in 1 month Safety and Risk for Injury Patient will remain free from injury. Ensure appropriate safety devices are available. Provide and maintain safe environment. VAD accessed without difficulty, good blood return noted, flushed with NSS and fluids infusing. documented in this encounter Plan of Treatment Upcoming Encounters Date Type Department Care Team (Latest Contact Info) Description 08/12/2023 11:20 AM EST Hospital Encounter OR [facility], Operating Room [facility] [address] [place] [phone] Stiven Ram, [address] [place] [phone] 08/12/2023 11:20 AM EST - 08/12/2023 11:45 AM EST Surgery OR [facility], Operating Room [facility] [address] [place] [phone] Stiven Ram, [address] [place] [address] INJECTION SPINE LUMBAR OR SACRAL 08/13/2023 9:30 AM EST Office Visit Hematology/Oncolog y [facility] Patti [place] [address] [place], [place] [address] Corbin Nielson MD [address] [place] [address] 08/20/2023 12:00 PM EST Laboratory Laboratory [facility] Patti [place] [address] [place] [phone] Patti, Lab [facility] [address] [facility] [place], [place] [address] 08/20/2023 1:00 PM EST Hem/Onc Treatment Hematology/Oncolog y Treatment, [place] 200 [facility], [place] [address] Patti, Chair 5 Hem Onc [facility] [address] [place] [address] 08/21/2023 1:00 PM EST Hem/Onc Treatment Hematology/Oncolog y Treatment, [place] 200 [facility], [place] [address] 08/22/2023 1:00 PM EST Hem/Onc Treatment Hematology/Oncolog y Treatment, [place] 200 [facility], [place] [address] 08/23/2023 1:00 PM EST Hem/Onc Treatment Hematology/Oncolog y Treatment, [place] [address] [facility], [place] [address] Patti, Chair 7 Hem Onc [facility] [address] [place] [address] 11/06/2023 1:00 PM EDT Office Visit Family Practice [facility] [place] [address] [place], [place] [address] Joe Peng, DO [address] [facility] [place], [place] [address] Scheduled Procedures Name Priority Associated Diagnoses Date/Ti me INJECTION SPINE LUMBAR OR SACRAL Lumbar radiculopathy 08/12/2023 11:20 AM EST COLONOSCOPY FLEXIBLE PROXIMAL DIAGNOSTIC Recall History of colon polyps Health Maintenance Due Date Last Done Comments Zoster Vaccines (1 of 2) 01/03/1975 Hepatitis B (1 of 3 - Risk 3-dose series) 2016 Diabetic Foot Exam 01/10/2022 01/10/2021, 1 , 05/19/2018 COVID-19 Vaccine (4 - season) 2023 05/08/2021, 08/29/2020, 08/08/2020 HbA1c 06/12/2023 [...] Additional history exists Pap Smear Discontinued 08/13/2019, 08/0 08/2013, 03/05/2014, Additional history exists Pneumococcal Vaccine: [...] leukemia, in relapse Encounter for antineoplastic chemotherapy Lumbar radiculopathy Thoracic or lumbosacral neuritis or radiculitis, unspecified documented in this encounter Administered Medications Active Administered Medications - up to 3 most recent administrations Medication Order MAR Action Action Date Dose Rate Site diphenhydrAMINE (Benadryl) inj 50 mg 50 mg, IV Push, ONCE PRN Other, Hypersensitivity Reaction, Starting on Sat07/26/23 at 1337, Until 07/27/23 at 1336, For 24 hours EPINEPHrine 1 MG/ML inj 0.3 mg 0.3 mg, Intramuscular, ONCE PRN Other, Hypersensitivity Reaction or Anaphylaxis, Starting on Sat07/26/23 at 1337, Until 07/27/23 at 1336, For 24 hours hEParin 100 UNIT/ML Lock Flush inj 500 Units 500 Units (5 mL), IV Lock, PRN Other, IV Flush, Starting on Sat07/26/23 at 1337, Until 07/27/23 at 1336, For 24 hours, Do not flush if lock, PICC, or central line not in place; IV infusing or unable to flush. Given 07/26/2023 2:56 PM EST 500 Units Hydrocortisone Sod Suc (PF) (Solu-Cortef) inj 100 mg 100 mg, IV Push, ONCE PRN Other, Hypersensitivity Reaction, Starting on Sat07/26/23 at 1337, Until 07/27/23 at 1336, For 24 hours NSS infusion 500 mL, Intravenous, at 50 mL/hr, CONTINUOUS, Starting on Sat07/26/23 at 1445, Until 07/27/23 at 0044 Start Infusion 07/26/2023 1:45 PM EST 500 mL 50 mL/hr sodium chloride 0.9 % flush central line 10 mL 10 mL, IV Push, PRN Other, IV Flush, Starting on Sat07/26/23 at 1337, Until 07/27/23 at 1336, For 24 hours, Do not flush if lock, PICC, or central line not in place; IV infusing or unable to flush. Given 07/26/2023 2:56 PM EST 10 mL Inactive Administered Medications - up to 3 most recent administrations Medication Order MAR Action Action Date Dose Rate Site Decitabine (Dacogen) 25.6 mg in NSS 100 mL infusion 25.6 mg (16 mg/m2 1.6 m2 Order-specific BSA), IV Piggyback, ONCE, 1 dose, On Sat07/26/23 at 1515, Administer over 60 Minutes, CAUTION: CHEMOTHERAPY HANDLE WITH GLOVES ! Start Infusion 07/26/2023 1:53 PM EST 25.6 mg 100 mL/hr ondansetron (Zofran) tab 8 mg 8 mg, Oral, ONCE, On Sat07/26/23 at 1445, For 1 dose Given By 07/26/2023 10:00 AM EST 8 mg documented in [...] the patient have Health Care Power of Sole Polisher? No Code Status History Code Status Date Activated Date Inactivated Comments Full Code 06/15/2016 5:56 PM 08/09/2016 8:19 PM This order reflects the patients wishes and were consensually agreed upon. Question Answer Comments Discussion of Advance Directives occurred with: Patient Does the patient have a Living Will? No Does the patient have Health Care Power of Sole Polisher? No Full Code 05/15/2016 3:18 AM 06/08/2016 6:42 PM This order reflects the patients wishes and were consensually agreed upon. Question Answer Comments Discussion of Advance Directives occurred with: Not Discussed Care Teams Orthotics Prosthetics Technician Relationship Specialty Start Date End Date Joe Peng DO [address] [address] PCP - General Family Medicine 05/19/18 documented as of this encounter
--- OUTSIDE RECORDS SUMMARY | 2023-08-22 00:25 | External Medical Summary | Summary of Care ---
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) Encounter for antineoplastic chemotherapy Procedures DE DECITABINE INJECTION Corbin Nielson MD [address] [place] [address] Anc Hem/Onc Natalee Armstrong DEPT CLOSED - 06/18/23 [address] [place] [address] Referral ID Status Reason Start Date Expiration Date V isits Requested Visits Authorized [id number] Authorized 07/05/2021 08/04/2099 99 99 Encounter Details Date Type Department Care Team (Latest Contact Info) Description 07/25/2023 1:00 PM EST Hem/Onc Treatment Hematology/Oncolog y Treatment, [place] [address] [place] [address] Patti, Chair 2 Hem Onc Scenery [address] [place] [address] Acute myeloid leukemia not having achieved remission [...] 06/08/2016 07/31/2017 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 encounter 02/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 Pt completed treatment without issues. VAD flushed with 10 ml NSS and Heparin 5 ml (100 units/ml). Davis needle removed intact. Goals: Pt will remain free from injury. Possible barriers to meeting goals: ambulation with IV pole Stability of the patient: Moderately stable - low risk of patient condition declining or worsening Summary regarding today's goals: Met: Pt remained free from injury during treatment today. Discharged in stable condition. No coverage. * Nancy Agosto RN - 07/25/2023 1:22 PM EST Chair 7, Dacogen. Pt has no acute concerns to report since treatment yesterday. VAD accessed; NSS infusing. Safety and Risk for Injury Patient will remain free from injury. Ensure appropriate safety devices are available. Provide and maintain safe environment. documented in this encounter Plan of Treatment Upcoming Encounters Date Type Department Care Team (Latest Contact Info) Description 07/26/2023 1:30 PM EST Hem/Onc Treatment Hematology/Oncolog y Treatment, [place] [address] [place] [address] 08/12/2023 11:20 AM EST Hospital Encounter OR [facility], Operating Room [facility] [address] [place] [phone] Stiven Ram DO [address] [place] [phone] 08/12/2023 11:20 AM EST - 08/12/2023 11:45 AM EST Surgery OR [facility], Operating Room [facility] [address] [place] [phone] Stiven Ram, DO [address] [place] [phone] INJECTION SPINE LUMBAR OR SACRAL 08/13/2023 9:30 AM EST Office Visit Hematology/Oncolog y [facility] Patti [place] [address] [place] [address] Corbin Nielson MD [address] [place] [address] 08/20/2023 12:00 PM EST Laboratory Laboratory [facility] Patti [place] [address] [place] [phone] Patti, Lab [facility] [address] [facility] [place] [address] 08/20/2023 1:00 PM EST Hem/Onc Treatment Hematology/Oncolog y Treatment, [place] [address] [facility] [address] [place] [address] Patti, Chair 5 Hem Onc Scenery [address] [place] [address] 08/21/2023 1:00 PM EST Hem/Onc Treatment Hematology/Oncolog y Treatment, [place] [address] [facility], [place] [address] 08/22/2023 1:00 PM EST Hem/Onc Treatment Hematology/Oncolog y Treatment, [place] [address] [facility], [place] [address] 08/23/2023 1:00 PM EST Hem/Onc Treatment Hematology/Oncolog y Treatment, [place] [address] [facility], [place] [address] Patti, Chair 7 Hem Onc Scenery [address] [place] [address] 11/06/2023 1:00 PM EDT Office Visit Family Practice [facility] [place] [address] [place] [address] Joe Peng, DO [address] [place] [address] Scheduled Procedures Name Priority Associated Diagnoses Date/Ti [...] ONCE PRN Other, Hypersensitivity Reaction, Starting on Verena 07/25/23 at 1320, Until Sat07/26/23 at 1319, For 24 hours EPINEPHrine 1 MG/ML inj 0.3 mg 0.3 mg, Intramuscular, ONCE PRN Other, Hypersensitivity Reaction or Anaphylaxis, Starting on Verena 07/25/23 at 1320, Until Sat07/26/23 at 1319, For 24 hours hEParin 100 UNIT/ML Lock Flush inj 500 Units 500 Units (5 mL), IV Lock, PRN Other, IV Flush, Starting on Verena 07/25/23 at 1320, Until Sat07/26/23 at 1319, For 24 hours, Do not flush if lock, PICC, or central line not in place; IV infusing or unable to flush. Given 07/25/2023 3:00 PM EST 500 Units Hydrocortisone Sod Suc (PF) (Solu-Cortef) inj 100 mg 100 mg, IV Push, ONCE PRN Other, Hypersensitivity Reaction, Starting on Verena 07/25/23 at 1320, Until Sat07/26/23 at 1319, For 24 hours NSS infusion 500 mL, Intravenous, at 50 mL/hr, CONTINUOUS, Starting on Verena 07/25/23 at 1430, Until Sat07/26/23 at 0029 Start Infusion 07/25/2023 1:04 PM EST 500 mL 50 mL/hr sodium chloride 0.9 % flush central line 10 mL 10 mL, IV Push, PRN Other, IV Flush, Starting on Verena 07/25/23 at 1320, Until Sat07/26/23 at 1319, For 24 hours, Do not flush if lock, PICC, or central line not in place; IV infusing or unable to flush. Given 07/25/2023 3:00 PM EST 10 mL Inactive Administered Medications - up to 3 most recent administrations Medication Order MAR Action Action Date Dose Rate Site Decitabine (Dacogen) 25.6 mg in NSS 100 mL infusion 25.6 mg (16 mg/m2 1.6 m2 Order-specific BSA), IV Piggyback, ONCE, 1 dose, On Verena 07/25/23 at 1500, Administer over 60 Minutes, CAUTION: CHEMOTHERAPY HANDLE WITH GLOVES ! Start Infusion 07/25/2023 1:56 PM EST 25.6 mg 100 mL/hr documented in this encounter Advance Directives Latest Code Status on File Code Status Date Activated Date Inactivated Comments Full Code 04/02/2017 4:50 AM 04/17/2017 3:02 PM This order reflects the patients wishes and were consensually agreed upon. Question Answer Comments Discussion of Advance Directives occurred with: Family Does the patient have a Living Will? No Does the patient have Health Care Power of Zipper Sewing Machine Operator? No Code Status History Code Status Date Activated Date Inactivated Comments Full Code 06/15/2016 5:56 PM 08/09/2016 8:19 PM This order reflects the patients wishes and were consensually agreed upon. Question Answer Comments Discussion of Advance Directives occurred with: Patient Does the patient have a Living Will? No Does the patient have Health Care Power of Zipper Sewing Machine Operator? No Full Code 05/15/2016 3:18 AM 06/08/2016 6:42 PM This order reflects the patients wishes and were consensually agreed upon. Question Answer Comments Discussion of Advance Directives occurred with: Not Discussed Care Teams Ict Project Manager Relationship Specialty Start Date End Date Joe Peng DO [address] [place] [address] PCP - General Family Medicine 05/19/18 documented as of this encounter
--- OUTSIDE RECORDS SUMMARY | 2023-08-22 00:26 | External Medical Summary | Summary of Care ---
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) Encounter for antineoplastic chemotherapy Procedures [place] DECITABINE INJECTION Corbin Nielson MD [address] [place] [address] Anc Hem/Onc Natalee Armstrong DEPT CLOSED - 06/18/23 [address] [place] [address] Referral ID Status Reason Start Date Expiration Date V isits Requested Visits Authorized [id number] Authorized 07/05/2021 08/04/2099 99 99 Encounter Details Date Type Department Care Team (Latest Contact Info) Description 07/24/2023 1:00 PM EST Hem/Onc Treatment Hematology/Oncolog y Treatment, [place] [address] [place] [address] Patti, Chair 5 Hem Onc Scenery [address] [place] [address] Acute myeloid leukemia not having achieved remission (HCC)*; 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); Encounter for antineoplastic chemotherapy Allergies Active Allergy Reactions Criticality Noted Date Comments Amoxicillin Nausea/vomiting 11/14/2015 Penicillins Nausea/vomiting Low 08/12/2007 tolerated cephalosporins in past Other reaction(s): Nausea Only Other reaction(s): "makes me nervous", Nausea documented as of this encounter (statuses as of 07/24/2023) Medications Medication Sig Dispensed Refills Start Date [...] as of this encounter (statuses as of 07/24/2023) Active Problems Problem Noted Date Diagnosed Date [...] as of this encounter (statuses as of 07/24/2023) Resolved Problems Problem Noted Date Diagnosed Date [...] 06/08/2016 07/31/2017 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 encounter 02/12/2012 04/27/2015 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 02/12/2012 04/27/2015 Overview: ICD-10 update of inactive term Other disorder of menstruati on and other abnormal bleeding from female genital tract 09/16/2007 04/27/2015 Uterine leiomyoma 09/16/2007 04/27/2015 documented as of this encounter (statuses as of 07/24/2023) Immunizations Name Administration Dates Next Due COVID-19 [...] Sign Reading Time Taken Comments Blood Pressure 112/70 07/24/2023 1:10 PM EST Pulse 78 07/24/2023 1:10 PM EST Temperature 37.1 C (98.8 F) 07/24/2023 1:10 PM ES T Respiratory Rate 16 07/24/2023 1:10 PM EST Oxygen Saturation 99% 07/24/2023 1:10 PM EST Inhaled Oxygen Concentration - [...] as of this encounter Nursing Notes * Theodora Hobbs, RN - 07/24/2023 3:23 PM EST Chair 7 Pt here for C50D2 Dacogen. No complaints since treatment yesterday. Safety and Risk for Injury Patient will remain free from injury. Ensure appropriate safety devices are available. Provide and maintain safe environment. Goals: Patient will remain free from injury. Possible barriers to meeting goals: ambulation with IV pole Stability of the patient: Moderately stable - low risk of patient condition declining or worsening Summary regarding today's goals: Met: patient without injury during treatment Functional status at today's visit: Restricted in [...] or adverse side effects during treatment. Pt tolerated dacogen infusion well. No complaints. Discharged in stable condition. documented in this encounter Plan of Treatment Upcoming Encounters Date Type Department Care Team (Latest Contact Info) Description 07/25/2023 1:00 PM EST Hem/Onc Treatment Hematology/Oncolog y Treatment, [address] [place] [address] Patti, Chair 2 Hem Onc [address] [place] [address] 07/26/2023 1:30 PM EST Hem/Onc Treatment Hematology/Oncolog y Treatment, [address] [place] [address] 08/12/2023 11:20 AM EST Hospital Encounter OR [facility], Operating Room [facility] [address] [place] [phone] Stiven Ram, [address] [place] [phone] 08/12/2023 11:20 AM EST - 08/12/2023 11:45 AM EST Surgery OR [facility], Operating Room [facility] [address] [place] [phone] Stiven Ram, [address] [place] [phone] INJECTION SPINE LUMBAR OR [facility]CR[place] 08/13/2023 9:30 AM EST Office Visit Hematology/Oncolog y [facility] Patti [place] [address] [place] [address] Corbin Nielson MD [address] [place] [address] 08/20/2023 12:00 PM EST Laboratory Laboratory [facility] Patti [place] [address] [place] [phone] Patti, Lab [facility] [address] [facility] [place] [address] 08/20/2023 1:00 PM EST Hem/Onc Treatment Hematology/Oncolog y Treatment, [place] [address] [facility] [address] [place], [place] [address] Patti, Chair 5 Hem Onc [facility] [address] [place] [address] 08/21/2023 1:00 PM EST Hem/Onc Treatment Hematology/Oncolog y Treatment, [place] [address] [facility], [place] [address] 08/22/2023 1:00 PM EST Hem/Onc Treatment Hematology/Oncolog y Treatment, [place] [address] [facility], [place] [address] 08/23/2023 1:00 PM EST Hem/Onc Treatment Hematology/Oncolog y Treatment, [place] [address] [facility], [place] [address] Patti, Chair 7 Hem Onc [place] [address] [address] [place], [place] [address] 11/06/2023 1:00 PM EDT [facility] [place] [address] [place], [place] [address] Joe Peng, DO [address] [facility] [place], [place] [address] Scheduled Procedures Name Priority Associated Diagnoses Date/Ti [...] Depression Screening 06/19/2023 06/19/2022 TSH 12/11/2023 12/10/2022, 050 09/2021, 08/31/2020, Additional history exists Diabetic Eye [...] ONCE PRN Other, Hypersensitivity Reaction, Starting on Sat07/24/23 at 1336, Until Verena 07/25/23 at 1335, For 24 hours EPINEPHrine 1 MG/ML inj 0.3 mg 0.3 mg, Intramuscular, ONCE PRN Other, Hypersensitivity Reaction or Anaphylaxis, Starting on Sat07/24/23 at 1336, Until Verena 07/25/23 at 1335, For 24 hours hEParin 100 UNIT/ML Lock Flush inj 500 Units 500 Units (5 mL), IV Lock, PRN Other, IV Flush, Starting on Sat07/24/23 at 1336, Until Verena 07/25/23 at 1335, For 24 hours, Do not flush if lock, PICC, or central line not in place; IV infusing or unable to flush. Given 07/24/2023 2:53 PM EST 500 Units Hydrocortisone Sod Suc (PF) (Solu-Cortef) inj 100 mg 100 mg, IV Push, ONCE PRN Other, Hypersensitivity Reaction, Starting on Sat07/24/23 at 1336, Until Verena 07/25/23 at 1335, For 24 hours NSS infusion 500 mL, Intravenous, at 50 mL/hr, CONTINUOUS, Starting on Sat07/24/23 at 1445, Until Verena 07/25/23 at 0044 Start Infusion 07/24/2023 1:30 PM EST 500 mL 50 mL/hr sodium chloride 0.9 % flush central line 10 mL 10 mL, IV Push, PRN Other, IV Flush, Starting on Sat07/24/23 at 1336, Until Verena 07/25/23 at 1335, For 24 hours, Do not flush if lock, PICC, or central line not in place; IV infusing or unable to flush. Given 07/24/2023 2:53 PM EST 10 mL Inactive Administered Medications - up to 3 most recent administrations Medication Order MAR Action Action Date Dose Rate Site Decitabine (Dacogen) 25.6 mg in NSS 100 mL infusion 25.6 mg (16 mg/m2 1.6 m2 Order-specific BSA), IV Piggyback, ONCE, 1 dose, On Sat07/24/23 at 1515, Administer over 60 Minutes, CAUTION: CHEMOTHERAPY HANDLE WITH GLOVES ! Start Infusion 07/24/2023 1:36 PM EST 25.6 mg 100 mL/hr documented [...] the patient have Health Care Power of Internal Control Specialist? No Code Status History Code Status Date Activated Date Inactivated Comments Full Code 06/15/2016 5:56 PM 08/09/2016 8:19 PM This order reflects the patients wishes and were consensually agreed upon. Question Answer Comments Discussion of Advance Directives occurred with: Patient Does the patient have a Living Will? No Does the patient have Health Care Power of Internal Control Specialist? No Full Code 05/15/2016 3:18 AM 06/08/2016 6:42 PM This order reflects the patients wishes and were consensually agreed upon. Question Answer Comments Discussion of Advance Directives occurred with: Not Discussed Care Teams Flatwork Finisher Relationship Specialty Start Date End Date Joe Peng DO [facility] [address] [place] [address] PCP - General Family Medicine 05/19/18 documented as of this encounter
--- OUTSIDE RECORDS SUMMARY | 2023-08-22 00:26 | External Medical Summary | Summary of Care ---
Author Name Unknown Organization [facility] Address [address] [place] [address] Phone [phone] Care Team Providers Care Procurement Manager Name Role Phone Joe Peng DO Primary Care Provider [phone] Encounter Details Date Type Department Care Team (Late st Contact Info) Description 07/23/2023 Orders Only Hematology/Oncology, [facility] [address] [place] [address] Corbin Nielson MD [address] [place] [address] Allergies Active Allergy Reactions Criticality Noted Date Comments Amoxicillin Nausea/vomiting 11/14/2015 Penicillins Nausea/vomiting Low 08/12/2007 tolerated cephalosporins in past Other reaction(s): Nausea Only Other reaction(s): "makes me nervous", Nausea documented as of this encounter (statuses as of 07/23/2023) Medications Medication Sig Dispensed Refills Start Date [...] as of this encounter (statuses as of 07/23/2023) Active Problems Problem Noted Date Diagnosed Date [...] as of this encounter (statuses as of 07/23/2023) Resolved Problems Problem Noted Date Diagnosed Date [...] 06/08/2016 07/31/2017 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 encounter 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 02/12/2012 04/27/2015 Overview: ICD-10 update of inactive term Other disorder of menstruati on and other abnormal bleeding from female genital tract 09/16/2007 04/27/2015 Uterine leiomyoma 09/16/2007 04/27/2015 documented as of this encounter (statuses as of 07/23/2023) Immunizations Name Administration Dates Next Due COVID-19 mRNA, LNP-s, No Pre serve, 2-Dose Series (ClassOwl) 05/08/2021,08/29/2020,08/08/2020 DTaP Dipth/Tet/Acell Pertussis (Infanrix), Peds 12/25/2017,10/30/2017,09/25/2017 [...] Description 07/24/2023 1:00 PM EST Hem/Onc Treatment [facility] [place] [facility] [address] Patti, Chair 5 Hem Onc [facility] [address] [place] [address] [place] [address] 07/25/2023 1:00 PM EST Hem/Onc Treatment Hematology[facility]cology [facility], [place] [address] [facility] [address] Patti, Chair 2 Hem Onc [facility] 200 [facility] [place] [address] 07/26/2023 1:30 PM EST Hem/Onc Treatment Hematology[facility], [place] [facility] [address] 08/12/2023 11:20 AM EST Hospital Encounter OR [facility], Operating Room [facility] [address] [place] [phone] Stiven Ram, DO [address] [place] [phone] 08/12/2023 11:20 AM EST - 08/12/2023 11:45 AM EST Surgery OR [facility], Operating Room [facility] [address] [place] [phone] Stiven Ram, DO [address] [place] [phone] INJECTION SPINE LUMBAR OR [place] 08/13/2023 9:30 AM EST Office Visit Hematology/Oncology [facility] [address] [facility] [address] [place] [address] Corbin Nielson MD [address] [facility] [place] [address] 11/06/2023 1:00 PM EDT Office Visit Family Practice [facility] [place] [address] [facility] [place] [address] Joe Peng, 200 [facility] [place] [address] Scheduled Procedures Name Priority Associated Diagnoses Date/Ti [...] Depression Screening 06/19/2023 06/19/2022 TSH 12/11/2023 12/10/2022, 05/09/2021, 08/31/2020, Additional history exists Diabetic Eye Exam [...] patient have Health Care Power of Automobile Parker? No Code Status History Code Status Date Activated Date Inactivated Comments Full Code 06/15/2016 5:56 PM 08/09/2016 8:19 PM This order reflects the patients wishes and were consensually agreed upon. Question Answer Comments Discussion of Advance Directives occurred with: Patient Does the patient have a Living Will? No Does the patient have Health Care Power of Automobile Parker? No Full Code 05/15/2016 3:18 AM 06/08/2016 6:42 PM This order reflects the patients wishes and were consensually agreed upon. Question Answer Comments Discussion of Advance Directives occurred with: Not Discussed Care Teams Procurement Manager Relationship Specialty Start Date End Date Joe Peng DO [address] [place] [address] PCP - General Family Medicine 05/19/18 documented as of this encounter
--- OUTSIDE RECORDS SUMMARY | 2023-08-22 00:26 | External Medical Summary ---
Author Name Unknown Address Unknown Organization [facility] [place] [address] Laboratory Report Ordering Provider Test Date Status APRYL MARINELLI 07/23/2023 11:20:28 Final Observation Date Value Abnormality Reference (Units ) Status Nucleated erythrocytes/100 leukocytes [Ratio] in Blood by Automated count 07/23/2023 11:20:28 Final Variant lymphocytes [Presence] in Blood by Light microscopy 07/23/2023 11:20:28 Present Abnormal None Seen Final Performing Location [facility] [place] [address]
--- OUTSIDE RECORDS SUMMARY | 2023-08-22 00:26 | External Medical Summary | Summary of Care ---
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) [C92.00] Procedures PRE / POST CARE Referral ID Status Reason Start Date Expiration Date Visits Re quested Visits Authorized [id number] Encounter Details Date Type Department Care Team (Latest Contact Info) Description 07/22/2023 9:13 AM EST - 07/22/2023 1:21 PM [facility] Hospital Encounter OR [facility], Operating Room, [facility] - 4th Floor [address] [place] [address] [facility], In And Out Surgery [address] [place] [address] Discharge Disposition: Home - Self Care Allergies [...] 06/08/2016 07/31/2017 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 encounter 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 therapy 02/12/2012 04/27/2015 Overview: ICD-10 update of inactive term Other disorder of menstruati on and other abnormal bleeding from female genital tract 09/16/2007 04/27/2015 Uterine leiomyoma 09/16/2007 04/27/2015 documented as of this encounter (statuses as of 07/23/2023) Immunizations Name Administration Dates Next Due COVID-19 mRNA, LNP-s, No Pre serve, 2-Dose Series ([employer]) 05/08/2021,08/29/2020,08/08/2020 DTaP Dipth/Tet/Acell Pertussis (Infanrix), Peds 12/25/2017,10/30/2017,09/25/2017 [...] Date Smoking Tobacco: Never Smokeless Tobacco: Never Tobacco Cessation:Counseling Given: Not Answered Alcohol Use Standard Drinks/Week Comments Yes 0 [...] Sign Reading Time Taken Comments Blood Pressure 109/74 07/22/2023 12:48 PM EST Pulse 66 07/22/2023 12:48 PM EST Temperature 35 C (95 F) 07/22/2023 12:48 PM EST Respiratory Rate 16 07/22/2023 12:48 PM EST Oxygen Saturation 98% 07/22/2023 12:48 PM EST Inhaled Oxygen Concentration - - Weight 52.2 kg (115 lb) 07/22/2023 10:08 AM EST Height 168.9 cm (5' 6.5") 07/22/2023 10:08 AM ES T Body Mass Index 18.29 07/22/2023 10:08 AM EST documented in this [...] Discharge Instructions * Discharge Instr - AVS* Aryan Bacon Jr., MD - 07/22/2023 1:02 PM EST INTERVENTIONAL RADIOLOGY PATIENT INSTRUCTIONS - POST PROCEDURE [facility] [address] Name: Codi Soto Location: LOCATED WITHIN [facility]/OR Date: 07/22/2023 Time: 1:02 PM Special Instructions: Bone marrow Biopsy Care After Your Biopsy If you experience pain or discomfort at the site you may use a cold pack on the site and/or take acetaminophen (Tylenol) or your preferred pain medicine as directed. Avoid strenuous activity for 24 to 48 hours after the procedure. Do not lift anything heavier than 10 pounds for 3 days after the procedure. Gradually increase your activity after 24 to 48 hours after the procedure. Keep the dressing clean and dry; change as needed. Dressing can be removed in 24 hours. You may shower after 24 hours. Gently wash the area and pat it dry. Please DO NOT take a bath, soak in a hot tub, or swim until the wound is completely healed. Follow Up Your requesting physician will contact you with the results of your test. Please allow 5 to 7 business days for your results. Please check [employer] messages or contact the referring physician for results. When to Call Interventional Radiology Call Interventional Radiology right away if you have any of the following: Fever above 100 degrees Fahrenheit Increased bleeding, redness, swelling, warmth, or discharge at the incision site. Constant or increasing pain, numbness, coldness, or tingling around the incision area. Vomiting or nausea that does not go away If at any time you experience any of the following or feel you are having a medical emergency, [id number] for emergency assistance. Chest Pain Sudden, severe shortness of breath Rapid heart rate Sudden onset of weakness Coughing up blood See your referring physician for follow-up appointment. Do not smoke or use tobacco products in any way! If you feel suicidal or homicidal, please call the crisis hotline at [phone] ([phone]) MODERATE SEDATION You may have received medication that made you comfortable/sedated you during your procedure. This is considered moderate sedation. This medication was given to relax you. You may also not remember having the procedure done. It may take up to 24 hours for this medication to be out of your system. Because of this, you should observe the following for the next 24 hours: Do not drink alcohol or take depressant drugs. Do not operate any type of machinery that requires hand-eye coordination. Do not sign any legal papers or documents. Do not make any financial decisions. You should be in the presence of an adult for the remainder of the day. If you are experiencing any problems related to your procedure, you should contact the Interventional Radiology physician unless otherwise directed. documented in this encounter Progress Notes * Aryan Bacon Jr., MD - 07/22/2023 1:04 PM EST [facility]-[address] [address] OUTPATIENT SURGERY DISCHARGE SUMMARY NOTE Name: Codi Soto Location: OR [facility]/OR Date: 07/22/2023 Time: 1:04 PM Surgery Date: 07/22/2023 Procedure: Procedure(s): PRE / POST CARE N/A Surgeon: Surgeon(s): [facility], In And Out Surgery Discharge Diagnosis: bone marrow bx After examination of this patient, I have determined she is ready for discharge to home when the patient meets criteria. Discharge instructions were given to the patient. documented in this encounter Nursing Notes * Sonny Carrera RN - 07/22/2023 1:19 PM EST Radiology unable to get orders and discharge instructions to flow into this encounter until after pt was discharge. Discharge note with instructions given to pt. All orders and instructions are now present in EMR for this encounter. * Kwan Mayen RN - 07/22/2023 10:12 AM EST Patient does not meet criteria for testing. documented in this encounter OR Notes * Operative Report Brief - Aryan Bacon Jr., MD - 07/22/2023 1:00 PM EST [facility]-[address] [address] OPERATIVE REPORT - BRIEF Name: Codi Soto Date: 07/22/2023 Time: 1:00 PM Location: OR [facility] Service: IR Date of Operation: 07/22/2023 Pre-op Diagnosis: Bone marrow bx Post-op Diagnosis: bone marrow bx Operation: bone marrow bx Surgeon: Jair, In And Out Surgery Assistants: None Anesthesia: moderate Drains: none Estimated Blood Loss: 0 ml. IV Fluids: 0 ml. Urine Output: N/A Specimens/Disposition: None Apparent Intraoperative Complications: NONE Patient Condition: stable Disposition: In and Out recovery unit Attestation: I performed the procedure documented in this encounter Plan of Treatment Upcoming Encounters Date Type Department Care Team (Latest Contact Info) Description 07/23/2023 11:30 AM EST Laboratory Laboratory [address] [place] [address] [place] [address] Patti, Lab Scenery [address] [facility] [place] [address] 07/23/2023 12:30 PM EST Hem/Onc Treatment Hematology/[address]olog [address] [address] Patti, Chair 11 Hem Onc Scenery [address] [place] [address] 07/24/2023 1:00 PM EST Hem/Onc Treatment Hematology/[address]colog [address] [address] Patti, Chair 5 Hem Onc Scenery [address] [place] [address] 07/25/2023 1:00 PM EST Hem/Onc Treatment Hematology/Oncolog [address], [address] [address] Patti, Chair 2 Hem Onc Scenery [address] [facility] [place] [address] 07/26/2023 1:30 PM EST Hem/Onc Treatment [facility]olog [facility], [place] [facility] [address] 08/12/2023 11:20 AM EST Hospital Encounter OR [facility], Operating Room [facility] [address] [place] [address] [place] [phone] Stiven Ram, DO [address] [place] [phone] 08/12/2023 11:20 AM EST - 08/12/2023 11:45 AM EST Surgery OR [facility], Operating Room [facility] [address] [place] [phone] Stiven Ram, DO [address] [place] [phone] INJECTION SPINE LUMBAR OR [facility] 08/13/2023 9:30 AM EST Office Visit Hematology/Oncolog y [facility] [address] [place] [address] Corbin Nielson MD [address] [place] [address] 11/06/2023 1:00 PM EDT Office Visit Family Practice [facility] [address] [place] [address] Joe Peng, DO [address] [facility] [place] [address] Scheduled Procedures Name Priority Associated Diagnoses Date/Ti [...] 023, 12/04/2021, 08/15/2020, Additional history exists GFR 07/16/2024 07/16/2023, 06/05, 06/11/2023, Additional history exists COLONOSCOPY-EVERY 3 YRS AGES 18-100 05/24/2025 05/24/2022, 05/24/2022, 05/18/2019, Additional history exists Lipid Panel 04/17/2026 04/17/2021, 08/05, 05/18/2015, Additional history exists DTaP,Tdap,and Td Vaccines (7 - Td or Tdap) 12/26/2027 12/25/2017, 10/30/2017, 09/30/2017, Additional history exists DXA Scan 01/23/2030 01/23/2023, 01/04, 11/04/2018, Additional history exists Pap Smear Discontinued 08/13/2019, 080 08/2013, 03/05/2014, Additional history exists Pneumococcal Vaccine: [...] Not on filedocumented as of this encounter Administered Medications Inactive Administered Medications - up to 3 most recent administrations Medication Order MAR Action Action Date Dose Rate Site isolyte-S pH 7.4 infusion Intravenous, at 25 mL/hr, All Patients EXCEPT Dialysis patients Plasma-LYTE 148, isolyte-S, and isolyte-S pH 7.4 are considered equivalent - including for MAR barcode scanning., CONTINUOUS, Starting on Sat07/22/23 at 1045, Until 07/22/23 at 1722, Pre-Op New Bag 07/22/2023 10:33 AM EST 25 mL/hr 25 mL /hr documented in this encounter Active and Recently Administered Medications Times are shown in EST. Continuous Medication Order 07/20/2023 07/21/2023 07/22/2023 isolyte-S pH 7.4 infusion Intravenous, at 25 mL/hr, All Patients EXCEPT Dialysis patients Plasma-LYTE 148, isolyte-S, and isolyte-S pH 7.4 are considered equivalent - including for MAR barcode scanning., CONTINUOUS, Starting on Sat07/22/23 at 1045, Until Sat07/22/23 at 1722, Pre-Op 1033 (New Bag - Prov ider: Kwan Mayen RN) documented in this encounter Advance Directives [...] the patient have Health Care Power of Treasury Assistant? No Code Status History Code Status Date Activated Date Inactivated Comments Full Code 06/15/2016 5:56 PM 08/09/2016 8:19 PM This order reflects the patients wishes and were consensually agreed upon. Question Answer Comments Discussion of Advance Directives occurred with: Patient Does the patient have a Living Will? No Does the patient have Health Care Power of Treasury Assistant? No Full Code 05/15/2016 3:18 AM 06/08/2016 6:42 PM This order reflects the patients wishes and were consensually agreed upon. Question Answer Comments Discussion of Advance Directives occurred with: Not Discussed Care Teams Forge Operator Helper Relationship Specialty Start Date End Date Joe Peng DO [address] [place] [address] PCP - General Family Medicine 05/19/18 documented as of this encounter
--- OUTSIDE RECORDS SUMMARY | 2023-08-22 00:26 | External Medical Summary ---
Author Name Unknown Address Unknown Organization [id number] [place] [address] Laboratory Report Ordering Provider Test Date Status APRYL MARINELLI 07/23/2023 11:20:28 Final Observation Date Value Abnormality Reference (Units ) Status WBC, Total 07/23/2023 11:20:28 4.30 4.00-10.8 0 (K/uL) Final RBC 07/23/2023 11:20:28 3.02 3.85-5.15 (M/uL) Final Hemoglobin 07/23/2023 11:20:28 11.1 Below low normal 12 .0-15.3 (g/dL) Final HCT 07/23/2023 11:20:28 34.1 Below low normal 36. 0-45.2 (%) Final MCV 07/23/2023 11:20:28 112.9 81.5-97.5 (fL) Final MCH 07/23/2023 11:20:28 36.8 27.0-34.0 (pg) Final MCHC 07/23/2023 11:20:28 32.6 32.0-36.0 (g/dL) Final RDW 07/23/2023 11:20:28 14.4 11.5-15.5 (%) Final Platelets 07/23/2023 11:20:28 223 140-400 (K /uL) Final MPV 07/23/2023 11:20:28 8.9 6.6-11.1 ( fL) Final Performing Location [facility] [place] [address]
--- OUTSIDE RECORDS SUMMARY | 2023-08-22 00:26 | External Medical Summary | Summary of Care ---
Author Name Unknown Organization [facility] Address [address] 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) Encounter for antineoplastic chemotherapy Procedures HI DECITABINE INJECTION Corbin Nielson MD [address] [place] [address] Anc Hem/Onc [facility] DEPT CLOSED - 06/18/23 [address] [place] [address] Referral ID Status Reason Start Date Expiration Date V isits Requested Visits Authorized [id number] Authorized 07/05/2021 08/04/2099 99 99 Encounter Details Date Type Department Care Team (Latest Contact Info) Description 07/23/2023 12:30 PM EST Hem/Onc Treatment Hematology/Oncolog y Treatment, [place] [address] [place] [address] Patti, Chair 11 Hem Onc Scenery [address] [place] [address] Acute myeloid leukemia not having achieved remission [...] 06/08/2016 07/31/2017 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 encounter 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 Possible barriers to meeting goals: pt is a high fall risk Stability of the patient: Moderately stable - low risk of patient condition declining or worsening Summary regarding today's goals: Met: Pt remained free from injury during treatment today. Discharged in stable condition. BR assisted. * Nancy Agosto RN - 07/23/2023 1:16 PM EST Chair 11 Chemo agents Dacogen Appetite stable Nausea/Vomiting occasional nausea, no vomiting. Manages with Zofran prn. Diarrhea no Constipation no Mucositis no Fatigue yes, stable Bleeding no Infection no Rash no Numbness tingling no Pain no Radiation n/a ABN Labs okay for treatment Alt in Tx: no Return in 1 day VAD accessed; NSS infusing. Safety and Risk for Injury Patient will remain free from injury. Ensure appropriate safety devices are available. Provide and maintain safe environment. documented in this encounter Plan of Treatment Upcoming Encounters Date Type Department Care Team (Latest Contact Info) Description 07/24/2023 1:00 PM EST Hem/Onc Treatment Hematology/Oncology Treatment, [place] [address] [facility] [place] [address] Patti, Chair 5 Hem [address] [place] [address] 07/25/2023 1:00 PM EST Hem/Onc Treatment Hematology/Oncology Treatment, [place] [address] [facility] [place] [address] Patti, Chair 2 Hem Onc [address] [place] [address] 07/26/2023 1:30 PM EST Hem/Onc Treatment Hematology/Oncology Treatment, [place] [address] [facility] [address] [place] [address] 08/12/2023 11:20 AM EST Hospital Encounter [facility], Operating Room [facility] [address] [place] [phone] Stiven Ram, DO [address] [place] [phone] 08/12/2023 11:20 AM EST - 08/12/2023 11:45 AM EST Surgery OR [facility], Operating Room [facility] [address] [place] [phone] Stiven Ram, DO [address] [place] [phone] INJECTION SPINE LUMBAR [place] [facility] 08/13/2023 9:30 AM EST Office Visit Hematology/Oncology [facility] [address] [facility] [place] [address] Corbin Nielson MD [address] [facility] [place] [address] 11/06/2023 1:00 PM EDT Office Visit Family Practice [facility] [address] [facility] [place] [address] Joe Peng, DO [address] [facility] [place] [address] Scheduled Procedures Name Priority Associated Diagnoses Date/Ti [...] ONCE PRN Other, Hypersensitivity Reaction, Starting on Sat07/23/23 at 1259, Until Sat07/24/23 at 1258, For 24 hours EPINEPHrine 1 MG/ML inj 0.3 mg 0.3 mg, Intramuscular, ONCE PRN Other, Hypersensitivity Reaction or Anaphylaxis, Starting on Sat07/23/23 at 1259, Until Sat07/24/23 at 1258, For 24 hours hEParin 100 UNIT/ML Lock Flush inj 500 Units 500 Units (5 mL), IV Lock, PRN Other, IV Flush, Starting on Sat07/23/23 at 1259, Until Sat07/24/23 at 1258, For 24 hours, Do not flush if lock, PICC, or central line not in place; IV infusing or unable to flush. Given 07/23/2023 2:41 PM EST 500 Units Hydrocortisone Sod Suc (PF) (Solu-Cortef) inj 100 mg 100 mg, IV Push, ONCE PRN Other, Hypersensitivity Reaction, Starting on Sat07/23/23 at 1259, Until Sat07/24/23 at 1258, For 24 hours NSS infusion 500 mL, Intravenous, at 50 mL/hr, CONTINUOUS, Starting on Sat07/23/23 at 1400, Until Sat07/23/23 at 2359 Start Infusion 07/23/2023 1:30 PM EST 500 mL 50 mL/hr sodium chloride 0.9 % flush central line 10 mL 10 mL, IV Push, PRN Other, IV Flush, Starting on Sat07/23/23 at 1259, Until Sat07/24/23 at 1258, For 24 hours, Do not flush if lock, PICC, or central line not in place; IV infusing or unable to flush. Given 07/23/2023 2:41 PM EST 10 mL Inactive Administered Medications - up to 3 most recent administrations Medication Order MAR Action Action Date Dose Rate Site Decitabine (Dacogen) 25.6 mg in NSS 100 mL infusion 25.6 mg (16 mg/m2 1.6 m2 Order-specific BSA), IV Piggyback, ONCE, 1 dose, On Sat07/23/23 at 1430, Administer over 60 Minutes, CAUTION: CHEMOTHERAPY HANDLE WITH GLOVES ! Start Infusion 07/23/2023 1:33 PM EST 25.6 mg 100 mL/hr documented [...] the patient have Health Care Power of Intellectual Property Counsel? No Code Status History Code Status Date Activated Date Inactivated Comments Full Code 06/15/2016 5:56 PM 08/09/2016 8:19 PM This order reflects the patients wishes and were consensually agreed upon. Question Answer Comments Discussion of Advance Directives occurred with: Patient Does the patient have a Living Will? No Does the patient have Health Care Power of Intellectual Property Counsel? No Full Code 05/15/2016 3:18 AM 06/08/2016 6:42 PM This order reflects the patients wishes and were consensually agreed upon. Question Answer Comments Discussion of Advance Directives occurred with: Not Discussed Care Teams Limnology Teacher Relationship Specialty Start Date End Date Joe Peng DO [address] [place] [address] PCP - General Family Medicine 05/19/18 documented as of this encounter
--- OUTSIDE RECORDS SUMMARY | 2023-08-22 00:26 | External Medical Summary ---
Author Name Unknown Address Unknown Organization K09:[facility] [place] [address] Laboratory Report Ordering Provider Test Date Status APRYL MARINELLI 07/23/2023 11:20:28 Final Observation Date Value Abnormality Reference (Units ) Status BUN 07/23/2023 11:20:28 7 6-20 (mg/dL) Final Creatinine 07/23/2023 11:20:28 0.8 0.5-1.0 (mg/dL) Final Glomerular filtration rate/1.73 sq M.predicted [Volume Rate/Area] in Serum, Plasma or Blood by Creatinine-based formula (CKD-EPI) 07/23/2023 11:20:28 83 >=60 (mL/min) Final eGFR is calculated based on the CKD-EPI 2020 equation SODIUM 07/23/2023 11:20:28 144 135-146 (m mol/L) Final Potassium 07/23/2023 11:20:28 4.4 3.5-5.1 (m mol/L) Final Cl 07/23/2023 11:20:28 108 Above high normal 98 -107 (mmol/L) Final CO2 07/23/2023 11:20:28 28 22-32 (mmo l/L) Final Anion gap 07/23/2023 11:20:28 8 7-15 (mmol /L) Final Glucose 07/23/2023 11:20:28 98 70-120 (mg /dL) Final Albumin 07/23/2023 11:20:28 3.5 Below low normal 3.8 -5.0 (g/dL) Final AST (Aspartate aminotransferase) 07/23/2023 11:20:28 44 Above high normal 10-35 (U/L) Final Alk Phos 07/23/2023 11:20:28 323 Above high normal 35 -130 (U/L) Final Bilirubin, Total 07/23/2023 11:20:28 0.3 <=1 .2 (mg/dL) Final Calcium 07/23/2023 11:20:28 8.9 8.4-10.2 ( mg/dL) Final Protein 07/23/2023 11:20:28 6.1 6.0-8.3 (g /dL) Final ALT (Alanine aminotransferase) 07/23/2023 11:20:28 35 10-35 (U/L) Dieudonne clemens Performing Location [facility] [place] [address]
--- OUTSIDE RECORDS SUMMARY | 2023-08-22 00:26 | External Medical Summary ---
Author Name Unknown Address Unknown Organization : Laboratory Report Ordering Provider Test Date Status SOLO ABARCA 07/22/2023 11:30:00 Final Observation Date Value Abnormality Reference (Units ) Status Performing Location
--- OUTSIDE RECORDS SUMMARY | 2023-08-22 00:26 | External Medical Summary ---
Author Name Unknown Address Unknown Organization K09:[facility] [address] Laboratory Report Ordering Provider Test Date Status APRYL MARINELLI 07/23/2023 11:20:28 Final Observation Date Value Abnormality Reference (Units ) Status Magnesium 07/23/2023 11:20:28 1.9 1.5-2.6 (m g/dL) Final Performing Location [facility] [place] [address]
--- OUTSIDE RECORDS SUMMARY | 2023-08-22 00:26 | External Medical Summary | Summary of Care ---
Author Name Unknown Organization [facility] Address [address] [place] [address] Phone [phone] Care Team Providers Care Line Supply Name Role Phone Joe Peng DO Primary Care Provider [phone] Reason for Visit * Reason Onset Date Comments Test Results Biopsy 07/25/2023 Encounter Details Date Type Department Care Team (Late st Contact Info) Description 07/25/2023 Telephone Hematology/Oncology [facility] Patti [place] [address] [facility] [place] [place] [id number] Corbin Nielson MD 200 [facility] [place] [id number] Test Results Biopsy Allergies Active Allergy Reactions [...] 06/08/2016 07/31/2017 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 encounter 02/12/2012 04/27/2015 assisted current use of ant icoagulant therapy 02/12/2012 04/27/2015 Overview: ICD-10 update of inactive term Other disorder of menstruati on and other abnormal bleeding from female genital tract 09/16/2007 04/27/2015 Uterine leiomyoma 09/16/2007 04/27/2015 documented as of this encounter (statuses as of 07/25/2023) Immunizations Name Administration Dates Next Due COVID-19 mRNA, LNP-s, No Pre serve, 2-Dose Series (Smart Cube) 05/08/2021,08/29/2020,08/08/2020 DTaP Dipth/Tet/Acell Pertussis (Infanrix), Peds 12/25/2017,10/30/2017,09/25/2017 [...] in blasts identified. Flow cytometric immunophenotypic analysis ([id number]) shows No phenotypic evidence of recurrent leukemia. documented in this encounter Plan of Treatment Upcoming Encounters Date Type Department Care Team (Latest Contact Info) Description 07/25/2023 1:00 PM EST Hem/Onc Treatment Hematology/On[address]olog [address], [address] [address] [place], Chair 2 Hem Onc [address] [address] 07/26/2023 1:30 PM EST Hem/Onc Treatment Hematology/Oncolog y Treatment, [address] [address] 08/12/2023 11:20 AM EST Hospital Encounter OR [facility], Operating Room [facility] [address] [facility] [place] [phone] Leanna, Max Kash, DO [address] [place] [address] 08/12/2023 11:20 AM EST - 08/12/2023 11:45 AM EST Surgery OR [facility], Operating Room [facility] [address] [place] [phone] Stiven Ram, DO [address] [place] [phone] INJECTION SPINE LUMBAR OR [facility]CR[facility] 08/13/2023 9:30 AM EST Office Visit Hematology/Oncolog y Natalee Armstrong [place] [address] [place] [address] Corbin Nielson MD [address] [place] [address] 08/20/2023 12:00 PM EST Laboratory Laboratory [facility] Patti [place] [address] [place] [phone] Patti, Lab Scenery [address] [place], [place] [address] 08/20/2023 1:00 PM EST Hem/Onc Treatment Hematology/Oncolog y Treatment, [place] [address] [facility] [place] [address] Patti, Chair 5 Hem Onc Scene [address] [place] [address] 08/21/2023 1:00 PM EST Hem/Onc Treatment [facility]olog [facility], [place] [facility] [address] 08/22/2023 1:00 PM EST Hem/Onc Treatment Hemat[facility]/Oncolog y Treatment, [place] [facility] [address] 08/23/2023 1:00 PM EST Hem/Onc Treatment Hematology/Oncolog y Treatment, [place] [facility] [address] Patti, Chair 7 Hem Onc [facility] [address] [facility] [place] [address] 11/06/2023 1:00 PM EDT Office Visit Family Practice [facility] [place] [address] [facility] [place] [address] Joe Peng, DO 200 [facility] [place] [address] Scheduled Procedures Name Priority Associated Diagnoses Date/Ti [...] the patient have Health Care Power of Button Sawyer? No Code Status History Code Status Date Activated Date Inactivated Comments Full Code 06/15/2016 5:56 PM 08/09/2016 8:19 PM This order reflects the patients wishes and were consensually agreed upon. Question Answer Comments Discussion of Advance Directives occurred with: Patient Does the patient have a Living Will? No Does the patient have Health Care Power of Button Sawyer? No Full Code 05/15/2016 3:18 AM 06/08/2016 6:42 PM This order reflects the patients wishes and were consensually agreed upon. Question Answer Comments Discussion of Advance Directives occurred with: Not Discussed Care Teams Line Supply Relationship Specialty Start Date End Date Joe Peng DO [address] [place] [address] PCP - General Family Medicine 05/19/18 documented as of this encounter
--- OUTSIDE RECORDS SUMMARY | 2023-08-22 00:26 | External Medical Summary | Summary of Care ---
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 0 Suspended Magnesium 400 MG TABS Take 2 tabs twice daily 360 Tab 1 0 Suspended Additional Information buPROPion HCl ER (XL) 150 MG Oral Tablet Extended Release 24 Hour (Wellbutrin XL) Take 1 Tablet by mouth in the morning. 0 1 Suspended buPROPion HCl ER (XL) 300 MG Oral Tablet Extended Release 24 Hour (Wellbutrin XL) Take 1 Tablet by mouth in the morning. 0 1 Suspended Potassium Chloride ER 20 MEQ Oral Tablet Extended ReleaseIndications :Hypokalemia Take 1 Tablet by mouth in the morning. 90 Tablet 1 2 Suspended Prochlorperazine Maleate 10 MG Oral Tablet (Compazine) Take by mouth 1 Tablet every 8 hours as needed for Nausea. Every 6 hours as needed for nausea 30 Tablet 11 2 Suspended Additional Information LORazepam 0.5 MG Oral Tablet (Ativan)Indication s:Anxiety disorder due to medical condition Take by mouth 1 Tablet daily as needed for Anxiety. 30 Tablet 3 2 Suspended Additional Information Levothyroxine Sodium 150 MCG Oral Tablet (Levoxyl)Indicatio ns:Acquired hypothyroidism TAKE 1 TABLET IN THE MORNING AT LEAST 30 MINUTESPRIOR TO BREAKFAST OR OTHERMEDICATIONS 90 Tablet 1 3 Suspended Additional Information Omeprazole 20 MG Oral Capsule Delayed Release (PriLOSEC)Indicati ons:Gastroesophage al reflux disease without esophagitis TAKE 1 CAPSULE DAILY 90 Capsule 1 3 Suspended Additional Information Acetaminophen 500 MG Oral Tablet Take 1 Tablet by mouth every 6 hours as needed. 0 Suspended Gabapentin 300 MG Oral Capsule (Neurontin)Indicat ions:Lumbar radiculopathy Take 2 Capsules by mouth in the morning and 2 Capsules in the evening. 120 Capsule 5 3 Suspended Additional Information Metoprolol Succinate ER 25 MG Oral Tablet Extended Release 24 Hour (toPROL XL)Indications:Uri otsubo cardiomyopathy TAKE 1/2 TABLET DAILY 45 Tablet 3 3 Suspended Additional Information Ondansetron 8 MG Oral Tablet DisintegratingIndi cations:Acute myeloid leukemia in remission (HCC) Place 1 Tablet on tongue every 8 hours as needed for Nausea. dissolve on tongue. 30 Tablet 2 3 Suspended Additional Information Vitamin B-12 1000 MCG Oral Tablet (Cyanocobalamin) TAKE 1 TABLET BY MOUTH EVERY DAY IN THE MORNING 90 Tablet 1 3 Suspended Additional Information HYDROcodone-Acetam inophen 5-325 MG Oral Tablet Take 1 Tablet by mouth every 8 hours as needed for Pain, Mild. 15 Tablet 0 3 Suspended Additional Information busPIRone HCl 10 MG Oral Tablet (Buspar) 0 3 Suspended documented as of this encounter (statuses as of 07/22/2023) Active Problems Problem Noted Date Diagnosed Date [...] as of this encounter (statuses as of 07/22/2023) Resolved Problems Problem Noted Date Diagnosed Date [...] as of this encounter (statuses as of 07/22/2023) Immunizations Name Administration Dates Next Due COVID-19 mRNA, LNP-s, No Pre serve, 2-Dose Series ([employer]) 05/08/2021,08/29/2020,08/08/2020 DTaP Dipth/Tet/Acell Pertussis (Infanrix), Peds 12/25/2017,10/30/2017,09/25/2017 [...] Care Team (Latest Contact Info) Description 07/22/2023 9:16 AM EST Hospital Encounter Radiology, [address] [place] [address] Arrived 07/23/2023 11:30 AM EST Laboratory Laboratory [facility] [place] [address] [place] [phone] Patti, Lab Scenery [address] [place] [address] 07/23/2023 12:30 PM EST Hem/Onc Treatment Hematology/Oncolog [facility] Treatment, [place] [facility] [address] Patti, Chair 11 Hem Onc Scenery [address] [place] [address] 07/24/2023 1:00 PM EST Hem/Onc Treatment Hematology/Oncolog y Treatment, [place] [address] [facility] [address] Patti, Chair 5 Hem Onc Scenery [address] [place] [address] 07/25/2023 1:00 PM EST Hem/Onc Treatment Hematology/Oncolog y Treatment, [place] [address] [facility] [address] Patti, Chair 2 Hem Onc Scenery [address] [place] [address] 07/26/2023 1:30 PM EST Hem/Onc Treatment Hematology/Oncolog y Treatment, [place] [address] [place] [address] 08/12/2023 11:20 AM EST Hospital Encounter OR [facility], Operating Room [facility] [address] [place] [address] Stiven Ram, DO [address] [place] [phone] 08/12/2023 11:20 AM EST - 08/12/2023 11:45 AM EST Surgery OR [facility], Operating Room [facility] [address] [place] [phone] Stiven Ram, DO [address] [place] [address] INJECTION SPINE LUMBAR OR [facility] 08/13/2023 9:30 AM EST Office Visit Hematology/Oncolog y [facility] [address] [place] [address] Corbin Nielson MD 200 [facility] [place] [address] 11/06/2023 1:00 PM EDT Office Visit Family Practice [facility] [address] [place] [address] Joe Peng, DO 200 [facility] [place] [address] Scheduled Procedures Name Priority Associated Diagnoses Date/Ti me PRE / POST CARE Acute myeloid leukemia not having achieved remission (HCC) 07/22/2023 11:00 AM EST INJECTION SPINE LUMBAR OR SACRAL Lumbar radiculopathy [...] Procedure Name Priority Date/Time Associated Diagnosis Comments DIFFERENTIAL, AUTOMATED STAT 07/22/2023 9:08 AM EST 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) CBC STAT 07/22/2023 9:08 AM EST 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) CBC STAT 07/22/2023 9:08 AM EST 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) documented in this encounter Results * (ABNORMAL) DIFFERENTIAL, AUTOMATED (07/22/2023 9:08 AM EST) WBC 4.34 4.00 - 10.80 K/uL 07/22/2023 9:15 AM EST [facility] Neutrophils % 28.1(L) 40.0 - 75.0 % 07/22/2023 9:15 AM EST [facility] Lymphocytes % 46.8(H) 18.0 - 42.0 % 07/22/2023 9:15 AM EST [facility] Monocytes % 17.3(H) 1.0 - 11.0 % 07/22/2023 9:15 AM EST [facility] Eosinophils % 3.9 0.0 - 6.0 % 07/22/2023 9:15 AM EST [facility] Basophils % 2.3(H) 0.0 - 2.0 % 07/22/2023 9:15 AM EST [facility] Immature Granulocytes % 1.6 0.0 - 2.0 % 07/22/2023 9:15 AM EST [facility] Absolute Neutrophils 1.22(L) 1.80 - 7.70 K/uL 07/22/2023 9:15 AM EST [facility] Absolute Lymphocytes 2.03 1.00 - 4.80 K/ul 07/22/2023 9:15 AM EST [facility] Absolute Monocytes 0.75 0.00 - 1.10 K/uL 07/22/2023 9:15 AM EST [facility] Absolute Eosinophils 0.17 0.00 - 0.70 K/uL 07/22/2023 9:15 AM EST LABORATORY GL Absolute Basophils 0.10 0.00 - 0.20 K/uL 07/22/2023 9:15 AM EST LABOR[facility]ORY GL Absolute Immature Granulocytes 0.07 0.00 - 0.20 K/uL 07/22/2023 9:15 AM EST LABORATORY GL Blood Venous blood specimen / Unknown Venipuncture / Unknown 07/22/2023 9:08 AM EST 07/22/2023 9:08 AM EST Chance Adrian Casper DO LAB BLOOD ORDERA BLES [facility] [address] [place] [address] * (ABNORMAL) CBC (07/22/2023 9:08 AM EST) WBC 4.34 4.00 - 10.80 K/uL 07/22/2023 9:15 AM EST [facility] RBC 2.99 3.85 - 5.15 M/uL 07/22/2023 9:15 AM EST LABORATORY GL HGB 11.3(L) 12.0 - 15.3 g/dL 07/22/2023 9:15 AM EST [facility] HCT 33.0(L) 36.0 - 45.2 % 07/22/2023 9:15 AM EST [facility] MCV 110.4 81.5 - 97.5 fL 07/22/2023 9:15 AM EST LABORATORY GL MCH 37.8 27.0 - 34.0 pg 07/22/2023 9:15 AM EST [facility]ORY [facility] MCHC 34.2 32.0 - 36.0 g/dL 07/22/2023 9:15 AM EST LABORATORY GL RDW 14.8 11.5 - 15.5 % 07/22/2023 9:15 AM EST LABORATORY GL PLT 215 140 - 400 K/uL 07/22/2023 9:15 AM EST LABORATORY GL MPV 8.7 6.6 - 11.1 fL 07/22/2023 9:15 AM EST LABORATORY GL nRBCs 0 <=0 /100 WBCs 07/22/2023 9:15 AM EST LABORATORY GL Blood Venous blood specimen / Unknown Venipuncture / Unknown 07/22/2023 9:08 AM EST 07/22/2023 9:08 AM EST Chance Casper DO LAB BLOOD ORDERA BLES [facility] [address] [facility] [place] [address] documented in this encounter Visit Diagnoses Diagnosis Acute myeloid leukemia not having achieved remission (HCC) Leukemia cutis Other leukemia of unspecified cell type, without mention of having achieved remission 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 No Code Status History Code Status Date Activated Date Inactivated Comments Full Code 06/15/2016 5:56 PM 08/09/2016 8:19 PM This order reflects the patients wishes and were consensually agreed upon. Question Answer Comments Discussion of Advance Directives occurred with: Patient Does the patient have a Living Will? No Does the patient have Health Care Power of Oral Surgery Assistant? No Full Code 05/15/2016 3:18 AM 06/08/2016 6:42 PM This order reflects the patients wishes and were consensually agreed upon. Question Answer Comments Discussion of Advance Directives occurred with: Not Discussed Care Teams Travelers' Aid Worker Relationship Specialty Start Date End Date Joe Peng DO [address] [place] [address] PCP - General Family Medicine 05/19/18 documented as of this encounter
--- OUTSIDE RECORDS SUMMARY | 2023-08-22 00:26 | External Medical Summary ---
Author Name Unknown Address Unknown Organization K[facility] [place] [address] Laboratory Report Ordering Provider Test Date Status APRYL MARINELLI 07/23/2023 11:20:28 Final Observation Date Value Abnormality Reference (Units ) Status SYNC LEUKOCYTES IN BLOOD BY AUTOMATED COUNT 07/23/2023 11:20:28 4.30 4.00-10.80 (K/uL) Final Segs 07/23/2023 11:20:28 44.4 40.0-75.0 (%) Final Lymphs % 07/23/2023 11:20:28 35.1 18.0-42.0 (%) Final Monos 07/23/2023 11:20:28 15.6 Above high normal 1.0-11.0 (%) Final Eosinophils 07/23/2023 11:20:28 3.7 0.0-6.0 (%) Final Basos 07/23/2023 11:20:28 1.2 0.0-2.0 (%) Final Absolute Segs 07/23/2023 11:20:28 1.91 1.80-7.70 (K/uL) Final Lymphs, absolute 07/23/2023 11:20:28 1.51 1.00-4.80 (K/ul) Final Monos, Abs 07/23/2023 11:20:28 0.67 0.00-1.10 (K/uL) Final Eos, Abs 07/23/2023 11:20:28 0.16 0.00-0.70 (K/uL) Final Basos, Abs 07/23/2023 11:20:28 0.05 0.00-0.20 (K/uL) Final Performing Location [facility] [place] [address]
--- OUTSIDE RECORDS SUMMARY | 2023-08-22 00:26 | External Medical Summary | Summary of Care ---
Author Name Unknown Organization [facility] Address [address] [place] [address] Phone [phone] Care Team Providers Care Accident Investigator Name Role Phone Joe Peng DO Primary Care Provider Reason for Visit * Reason Comments Procedure CT guided bone marro w biopsy Encounter Details Date Type Department Care Team (Latest Contact Info) Description 07/22/2023 9:16 AM EST - 07/22/2023 11:59 PM [facility] Hospital Encounter Radiology, [address] [phone] Arrived Discharge Disposition: Home - Self Care Allergies [...] Unspecified adrenocortical insufficiency 05/19/2018 08/28/2019 Unspecified convulsions 05/19/20182 11/2019 Aplastic anemia 05/19/2018 08/28/2019 Cardiomyopathy 10/28/2017 05/19/2018 [...] 06/08/2016 07/31/2017 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 encounter 02/12/2012 04/27/2015 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 current use of ant icoagulant therapy 02/12/2012 04/27/2015 Overview: ICD-10 update of inactive term Other disorder of menstruati on and other abnormal bleeding from female genital tract 09/16/2007 04/27/2015 Uterine leiomyoma 09/16/2007 04/27/2015 documented as of this encounter (statuses as of 07/23/2023) Immunizations Name Administration Dates Next Due COVID-19 mRNA, LNP-s, No Pre serve, 2-Dose Series ([employer]) 05/08/2021,08/29/2020,08/08/2020 DTaP Dipth/Tet/Acell Pertussis ([employer]), Peds 12/25/2017,10/30/2017,09/25/2017 [...] Sign Reading Time Taken Comments Blood Pressure 109/72 07/22/2023 11:48 AM EST Pulse 63 07/22/2023 11:48 AM EST Temperature - - Respiratory Rate 8 07/22/2023 11:48 AM EST Oxygen Saturation 100% 07/22/2023 11:48 AM EST Inhaled Oxygen Concentration - - [...] 06/15/2016 documented as of this encounter Discharge Summaries * Aryan Bacon Jr., MD - 07/22/2023 11:00 AM EST [address] [address] OUTPATIENT SURGERY DISCHARGE SUMMARY NOTE Name: Codi Soto Location: Room/bed info not found Date: 07/22/2023 Time: 11:57 AM Surgery Date: 07/22/2023 Procedure: * No procedures listed * * No procedures found * Surgeon: * No surgeons listed * Discharge Diagnosis: bone marrow bx After examination of this patient, I have determined she is ready for discharge to home when the patient meets criteria. Discharge instructions were given to the patient. documented in this encounter Progress Notes * Aryan Bacon Jr., MD - 07/22/2023 11:00 AM EST INTERVENTIONAL RADIOLOGY PATIENT INSTRUCTIONS - POST PROCEDURE [address] [phone] Name: Codi Soto Location: Room/bed info not found Date: 07/22/2023 Time: 11:58 AM Special Instructions: Bone marrow Biopsy Care After [...] business days for your results. Please check Minube messages or contact the referring physician for [...] feel you are having a medical emergency, [id number] for emergency assistance. Chest Pain Sudden, severe shortness of breath Rapid heart rate Sudden onset of weakness Coughing up blood See your referring physician for follow-up appointment. Do not smoke or use tobacco products in any way! If you feel suicidal or homicidal, please call the crisis hotline at [phone] ([phone]) MODERATE SEDATION You may have received medication [...] unless otherwise directed. documented in this encounter H&P Notes * Aryan Bacon Jr., MD - 07/22/2023 11:00 AM EST HISTORY & PHYSICAL - Interventional Radiology Service [place] [address] [facility] [address] Name: Codi Soto Location: Room/bed info not found Date: 07/22/2023 Time: 11:29 AM CHIEF COMPLAINT: Bone marrow bx HISTORY OF PRESENT ILLNESS: Bone marrow bx Past Medical History: Diagnosis Date Acute liver failure 04/03/2017 Acute respiratory failure with hypoxia (HCC) 04/02/2017 CLABSI (central line-associated bloodstream infection) 04/17/2017 Family history of colonic polyps Febrile neutropenia 06/08/2016 HSV-1 (herpes simplex virus 1) infection 06/08/2016 Hypothyroidism Motion sickness OTHER enlarged septum in heart Other anxiety states Staphylococcus aureus bacteremia with sepsis (HCC) 04/02/2017 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 Past Surgical History: Procedure Laterality Date AMPUTATION OF TOE Left 06/03/2017 AMPUTATION TOE METATARSOPHALANGEAL JOINT performed by Chandana Raymond MD at OR [facility] BONE MARROW ASPIRATION 08/02/2016 BONE MARROW BIOPSY 08/02/2016 COLONOSCOPY, DIAGNOSTIC (RECTUM) 06/04/2014 diverticulosis, repeat 5 yrs COLONOSCOPY, DIAGNOSTIC (RECTUM) 05/18/2019 adenomatous & hyperplastic polyp, repeat 3 yrs/[facility] COLONOSCOPY, DIAGNOSTIC (RECTUM) 05/24/2022 benign adenomatous polyps, repeat 3 yrs / COLONOSCOPY FLEXIBLE PROXIMAL DIAGNOSTIC performed by Syl Cohen DO at ENDOSCOPY [facility] EGD, FLEXIBLE, DIAGNOSTIC 01/11/2016 normal bx/ESOPHAGOGASTRODUODENOSCOPY (EGD), FLEXIBLE, TRANSORAL, DIAGNOSTIC performed by Cam Ellis MD at ENDOSCOPY [facility] EGD, FLEXIBLE, DIAGNOSTIC 05/18/2019 normal bx/[facility] FISSURECTOMY W/ SPHINCTEROTOMY INFORMATION stem cell transplant , 12/19 IR BIOPSY 12/28/2015 TRANSCATHETER BIOPSY performed by Haris Tim MD at RADIOLOGY [facility] MISCELLANEOUS ORDER ([facility] ONLY) N/A 04/01/2017 REMOVAL OF [place] CATHETER [facility] DR. DAVIS 04/01/17 TMJ ARTHROSCOPY DISC REPOSIT Social History Socioeconomic History Marital status: Spouse name: Not on file Number of children: Not on file Years of education: Not on file Highest education level: Not on file Occupational History Not on file Tobacco Use Smoking status: Never Smokeless tobacco: Never Vaping Use Vaping Use: Never used Substance and Sexual Activity Alcohol use: Yes Comment: rarely Drug use: No Sexual activity: Yes Partners: Male Other Topics Concern Service Not Asked Blood Transfusions Not Asked Caffeine Concern Not Asked Occupational Exposure Not Asked Hobby Hazards Not Asked Sleep Concern Not Asked Stress Concern Not Asked Weight Concern Not Asked Special Diet Yes Comment: takes ca Back Care Not Asked Exercise Yes Comment: walks - dogs Bike Helmet Not Asked Seat Belt Yes Self-Exams Yes Social History Narrative Not on file Social Determinants of Health Financial Resource Strain: Not on file Food Insecurity: No Food Insecurity (08/08/2022) Hunger Vital Sign Worried About Running Out of Food in the Last Year: Never true Ran Out of Food in the Last Year: Never true Transportation Needs: Not on file Physical Activity: Not on file Stress: Not on file Social Connections: Not on file Intimate Partner Violence: Not on file Housing Stability: Not on file Family History Problem Relation Age of Onset Lung Disorder Mother COPD Cancer Mother Head and Neck CA Stroke Mother carotid stenosis Esophageal cancer Father Heart attack Father Hypertension Father Thyroid Disorder Sister Other (Other) Sister alpha 1 antryipsin deficiency Breast Cancer Grandmother (Maternal) Heart Disorder Grandmother (Paternal) Heart Disorder Grandfather (Paternal) Breast Cancer Cousin (Maternal) 30s Review of patient's allergies indicates: Allergen Reactions Amoxicillin Nausea/vomiting Penicillins Nausea/vomiting tolerated cephalosporins in past Other reaction(s): Nausea Only Other reaction(s): "makes me nervous", Nausea No current facility-administered medications for this encounter. No current outpatient medications on file. Facility-Administered Medications Ordered in Other Encounters Medication Dose Route Frequency Provider Last Rate Last Admin isolyte-S pH 7.4 infusion 25 mL/hr Intravenous Continuous Arleen Bueno, MD Aryan 25 mL/hr at 07/22/23 1033 25 mL/hr at 07/22/23 1033 REVIEW OF SYSTEMS: Constitutional: (-) fever chills sweats or weight loss Eyes: (-) negative, no amaurosis fugax, pain, blurred vision, or redness ENT: (-) negative: no headaches, vertigo, hearing loss, sinus, ear, or throat problems Cardiovascular: (-) negative: no chest pain, dyspnea, syncope, or palpitations Pulmonary: (-) negative: no cough, wheezing, or shortness of breath OBJECTIVE: LMP 03/20/2009 PHYSICAL EXAM: Constitutional: no acute distress HEENT: normal: normocephalic, atraumatic; no masses, tenderness, or adenopathy CV: normal rate and rhythm, no murmur, gallops or rub Chest: normal respiratory effort, lungs clear to auscultation and percussion LABS: CBC Results: PT INR Results: Results for orders placed or performed in visit on 06/11/23 PT INR Result Value Ref Range Prothrombin Time 12.3 11.6 - 15.2 seconds INR 0.9 0.8 - 1.2 *Note: Due to a large number of results and/or encounters for the requested time period, some results have not been displayed. A complete set of results can be found in Results Review. BUN Results: Lab Results Component Value Date/Time BUN - [facility] 8 07/16/2023 12:35 PM BUN - [facility] 7 06/18/2023 10:25 AM BUN - [facility] 8 06/11/2023 12:03 PM BUN - [facility] 7 08/31/2020 01:01 PM BUN - [facility] 7 08/23/2020 02:35 PM BUN - [facility] 5 (L) 08/15/2020 07:29 AM Creatinine Results: Lab Results Component Value Date/Time CREATININE - [facility] 0.8 07/16/2023 12:35 PM CREATININE - [facility] 0.7 06/18/2023 10:25 AM CREATININE - [facility] 0.8 06/11/2023 12:03 PM CREATININE - [facility] 0.9 08/31/2020 01:01 PM CREATININE - [facility] 0.8 08/23/2020 02:35 PM CREATININE - [facility] 1.0 08/15/2020 07:29 AM CREATININE, RANDOM URINE - [facility] 45 04/09/2023 12:11 PM CREATININE, RANDOM URINE - [facility] 48 12/04/2021 12:35 PM CREATININE, RANDOM URINE - [facility] 62 08/15/2020 07:29 AM CREATININE, RANDOM URINE - [facility] 62 08/20/2018 08:48 AM CREATININE, RANDOM URINE - [facility] 51 04/02/2017 08:12 AM CREATININE-OUTSIDE LAB 1.80 (A) 04/01/2017 12:00 AM CREATININE-OUTSIDE LAB 0.59 (A) 08/31/2016 12:00 AM CREATININE-OUTSIDE LAB 0.63 08/10/2016 12:00 AM Potassium Results: Lab Results Component Value Date/Time POTASSIUM - [facility] 4.0 07/16/2023 12:35 PM POTASSIUM - [facility] 4.6 06/18/2023 10:25 AM POTASSIUM - [facility] 4.3 06/11/2023 12:03 PM POTASSIUM - [facility] 4.0 08/31/2020 01:01 PM POTASSIUM - [facility] 3.8 08/23/2020 02:35 PM POTASSIUM - [facility] 3.5 08/15/2020 07:29 AM POTASSIUM-OUTSIDE LAB 4.1 04/01/2017 12:00 AM POTASSIUM-OUTSIDE LAB 3.3 (A) 08/31/2016 12:00 AM POTASSIUM-OUTSIDE LAB 3.6 08/10/2016 12:00 AM INFORMED CONSENT: Yes PRE-SEDATION ASSESSMENT: Bone Marrow Bx Level of sedation planned: Moderate Patient's allergies reviewed: Yes H&P Review / Interval Note Documentation: I have reviewed the H&P previously performed, examined the patient today, and there are no new findings. Difficulty with sedation / anesthesia: No Sleep apnea: No History of snoring: No History of difficult intubation: No Decreased ROM neck flexion/extension: No Tracheal deviation: No Decreased ability to open mouth / TMJ: No Loose teeth / dentures / partial: No Congenital deformities / abnormalities: No Dysphagia: No Mallampati Classification: II - soft palate, uvula, fauces visible Chest: Clear Heart: Regular Rhythm ASA Risk Stratification (Select One): ASA 2 - Mild systemic disease, no functional limitations The patient was identified and the procedure verified: Yes IMPRESSION/PLAN: Bone marrow bx Aryan Bacon Jr, MD documented in this encounter Nursing Notes * Ruel Singh RN - 07/22/2023 11:00 AM EST Procedure: CT Guided bone marrow biopsy Pt placed on procedure table with comfort measures intact. Hemodynamic monitoring placed and initiated, VS stable. Pt denies any complaints at current time. CT stone gang sawyer images obtained. Timeout performed by Dr. Aryan Bacon at 1141. Dr. Bacon reassessed patient immediately prior to moderate sedation administration and procedure start. Patient prepped for procedure. Skin around biopsy area cleaned with chloraprep and dried. 4 mL 1% buffered lidocaine administered locally to Left posterior pelvis by MD. Access obtained. Images obtained. Access advanced. Images obtained. Biopsy obtained. Slides prepared and given to shipyard laborer who used telecytology method to verify adequacy of cellular material. Access removed. Pressure applied by . Gauze and Tegaderm applied to site. Post procedure image obtained. Patient tolerated procedure well without complications. All wires, catheters, sheaths and other devices have been inspected prior to the procedure for damage. All items not intended to remain in the patient have been inspected, accounted for and have beenremoved from the patient at the end of the procedure. This has been confirmed by the operating physician. Pt recieved moderate sedation for their procedure, the patient recieved fentanyl and versed and wassedated for a total of 10 minutes. Start 1142 End 1152 Total medications given Versed: 2 mg Fentanyl: 50 mcg 1% buffered lidocaine: 4 mL documented in this encounter OR Notes * Operative Report Brief - Aryan Bacon Jr., MD - 07/22/2023 11:00 AM EST [facility] [address] OPERATIVE REPORT - BRIEF Name: Codi Soto Date: 07/22/2023 Time: 11:56 AM Location: [facility] IR IMAGING Service: IR Date of Operation: 07/22/2023 Pre-op Diagnosis: Bone marrow bx Post-op Diagnosis: Bone marrow bx Operation: Bone marrow bx Surgeon: * No surgeons listed * Assistants: None Anesthesia: moderate Drains: none Estimated Blood Loss: 0 ml. IV Fluids: 0 ml. Urine Output: N/A Specimens/Disposition: None Apparent Intraoperative Complications: NONE Patient Condition: stable Disposition: In and Out recovery unit Attestation: I performed the procedure documented in this encounter Miscellaneous Notes * Sedation Note - Aryan Bacon Jr., MD - 07/22/2023 11:00 AM EST SEDATION NOTE Indication: The patient is a(n) 68 year old female with bone marrow bx. Location: [facility] Sedating physician: Arleen Procedure physician: Arleen Procedure(s) Performed: bone marrow bx Sedation was accomplished using fentanyl and versed . Any and all anesthetic medications were delivered under the direct supervision of a provider. Actual level of sedation: Moderate Patient tolerated procedure well. Vitals and oxygen saturations stable throughout. Adverse Outcome(s) during the procedure: None Sedation Start Time: 1142 Sedation End Time: 1152 Post Sedation Evaluation: Cardiovascular status: acceptable Level of consciousness: awake and alert Airway patency: patent Distress - NAD Hydration status - well hydrated Nausea/vomiting - not present Pain Evaluation Pain Assessment Flowsheet Row Most Recent Value Pain Assessment Scale [facility] Adult Scale 0-10 Pain Score 0 (no pain) Vital Signs: BP: 109/72 (07/22 1148) Pulse: 63 (07/22 1148) Resp: 8 (07/22 1148) SpO2: 100 % (07/22 1148) I have personally examined the patient, prescribed the necessary medications as charted, and certify that Codi Soto is recovered for safe discharge from my face to face care. documented in this encounter Plan of Treatment Upcoming Encounters Date Type Department Care Team (Latest Contact Info) Description 07/24/2023 1:00 PM EST Hem/Onc Treatment [facility] [place] [address] [facility] [address] Patti, Chair 5 Hem Onc [facility] [address] [facility] [place] [address] 07/25/2023 1:00 PM EST Hem/Onc Treatment Hematology/Oncology Treatment, [place] [address] [facility] [place] [address] Patti, Chair 2 Hem Onc [place] [address] [facility] [place] [address] 07/26/2023 1:30 PM EST Hem/Onc Treatment Hematology/Oncology Treatment, [place] [address] [facility] [place] [address] 08/12/2023 11:20 AM EST Hospital Encounter [facility], Operating Room [facility] [address] [place] [phone] Stiven Ram, DO [address] [place] [phone] 08/12/2023 11:20 AM EST - 08/12/2023 11:45 AM EST Surgery OR [facility], Operating Room [facility] [address] [place] [phone] Stiven Ram, [address] [place] [phone] INJECTION SPINE LUMBAR OR [facility] 08/13/2023 9:30 AM EST Office Visit [facility]ology[facility]On[facility] [place] [address] [place] [id number] Corbin Nielson MD [address] [place] [address] 11/06/2023 1:00 PM EDT Office Visit Family Practice [facility] [address] [place] [id number] Joe Peng, DO [address] [place], [place] [address] Pending Results Name Type Priority Associated Diagnoses Date /Time BONE MARROW PANEL Lab Routine Acute myeloid leukemia not having achieved remission (HCC) Leukemia cutis 07/22/2023 11:30 AM EST BONE MARROW ASPIRATE LAVENDER (MOLECULAR) - 2 TUB* Lab Routine Acute myeloid leukemia not having achieved remission (HCC) Leukemia cutis 07/22/2023 11:30 AM EST BONE MARROW ASPIRATE GREEN (REFERRED) Lab Routine Acute myeloid leukemia not having achieved remission (HCC) Leukemia cutis 07/22/2023 11:30 AM EST BONE MARROW WITH REFLEX TESTING Pathology Routine Acute myeloid leukemia not having achieved remission (HCC) Leukemia cutis 07/22/2023 11:30 AM EST FLOW CYTOMETRY, LEUKEMIA LYMPHOMA PANEL Lab Routine Acute myeloid leukemia not having achieved remission (HCC) Leukemia cutis 07/22/2023 11:30 AM EST [facility] HEMATOLOGY GENE PANEL, NEXT GENERATION SEQUENCING Lab Routine Acute myeloid leukemia not having achieved remission (HCC) Leukemia cutis 07/22/2023 11:30 AM EST Scheduled Orders Name Type Priority Associated Diagnoses Orde r Schedule BONE MARROW PANEL Lab Routine Acute myeloid leukemia not having achieved remission (HCC) Leukemia cutis One Time for 1 Occurrences starting 07/22/2023 until 07/22/2023 BONE MARROW ASPIRATE LAVENDER (MOLECULAR) - 2 TUB* Lab Routine Acute myeloid leukemia not having achieved remission (HCC) Leukemia cutis Once for 1 Occurrences starting 07/22/2023 until 07/22/2023, 1 completed BONE MARROW ASPIRATE GREEN (REFERRED) Lab Routine Acute myeloid leukemia not having achieved remission (HCC) Leukemia cutis Once for 1 Occurrences starting 07/22/2023 until 07/22/2023 BONE MARROW WITH REFLEX TESTING Pathology Routine Acute myeloid leukemia not having achieved remission (HCC) Leukemia cutis Once for 1 Occurrences starting 07/22/2023 until 07/22/2023, 1 completed FLOW CYTOMETRY, LEUKEMIA LYMPHOMA PANEL Lab Routine Acute myeloid leukemia not having achieved remission (HCC) Leukemia cutis One Time for 1 Occurrences starting 07/23/2023 until 07/23/2023, 1 completed [facility] HEMATOLOGY GENE PANEL, NEXT GENERATION SEQUENCING Lab Routine Acute myeloid leukemia not having achieved remission (HCC) Leukemia cutis One Time for 1 Occurrences starting 07/23/2023 until 07/23/2023 Scheduled Procedures Name Priority Associated Diagnoses Date/Ti [...] Additional history exists DXA Scan 01/23/2030 01/23/2023, 06/2 08/2022, 11/04/2018, Additional history exists Pap Smear Discontinued [...] Procedure Name Priority Date/Time Associated Diagnosis Comments IR BIOPSY STAT 07/22/2023 12:10 PM EST Acute myeloid leukemia not having achieved remission (HCC) Leukemia cutis BONE MARROW ASPIRATE GREEN (FLOW) Routine 07/22/2023 11:30 AM EST Acute myeloid leukemia not having achieved remission (HCC) Leukemia cutis documented in this encounter Results * BONE MARROW ASPIRATE GREEN (FLOW) (07/22/2023 11:30 AM EST) Bone Marrow for Flow Cytometry Yes 07/23/2023 9:43 AM EST LABORATORY [facility] Bone Marrow Specimen from bone marrow obtained by aspiration / Unknown Non-blood Collection / Unknown 07/22/2023 11:30 AM EST 07/22/2023 12:01 PM EST Emelyn LAUREN [facility] MOLECULAR O RDERABLES LABORATORY [facility] [address] [place] [address] documented in this encounter Visit Diagnoses Diagnosis Acute myeloid leukemia not having achieved remission (HCC) Leukemia cutis Other leukemia of unspecified cell type, without mention of having achieved remission Lumbar radiculopathy Thoracic or lumbosacral neuritis or radiculitis, unspecified documented in this encounter Administered Medications Inactive Administered Medications - up to 3 most recent administrations Medication Order MAR Action Action Date Dose Rate Site fentaNYL (PF) inj ONCE PRN NARRATOR, Starting on Sat07/22/23 at 1142, Until Sat07/22/23 at 1142 Given 07/22/2023 11:42 AM EST 50 mcg midazolam (Versed) 2 MG/2ML inj ONCE PRN NARRATOR, Starting on Sat07/22/23 at 1142, Until Sat07/22/23 at 1142 Given 07/22/2023 11:42 AM EST 2 mg documented in this encounter Advance Directives [...] the patient have Health Care Power of Cleaning Team Member? No Code Status History Code Status Date Activated Date Inactivated Comments Full Code 06/15/2016 5:56 PM 08/09/2016 8:19 PM This order reflects the patients wishes and were consensually agreed upon. Question Answer Comments Discussion of Advance Directives occurred with: Patient Does the patient have a Living Will? No Does the patient have Health Care Power of Cleaning Team Member? No Full Code 05/15/2016 3:18 AM 06/08/2016 6:42 PM This order reflects the patients wishes and were consensually agreed upon. Question Answer Comments Discussion of Advance Directives occurred with: Not Discussed Care Teams Accident Investigator Relationship Specialty Start Date End Date Joe Peng DO [address] [place] [address] PCP - General Family Medicine 05/19/18 documented as of this encounter
--- OUTSIDE RECORDS SUMMARY | 2023-08-22 00:26 | External Medical Summary | Summary of Care ---
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); Hypomagnesemia [...] 06/08/2016 07/31/2017 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 encounter 02/12/2012 04/27/2015 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 current use of ant icoagulant therapy 02/12/2012 04/27/2015 Overview: ICD-10 update of inactive term Other disorder of menstruati on and other abnormal bleeding from female genital tract 09/16/2007 04/27/2015 Uterine leiomyoma 09/16/2007 04/27/2015 documented as of this encounter (statuses as of 07/23/2023) Immunizations Name Administration Dates Next Due COVID-19 mRNA, LNP-s, No Pre serve, 2-Dose Series ([email or web address]) 05/08/2021,08/29/2020,08/08/2020 DTaP Dipth/Tet/Acell Pertussis (Infanrix), Peds 12/25/2017,10/30/2017,09/25/2017 [...] Description 07/23/2023 12:30 PM EST Hem/Onc Treatment [facility] [place] [facility] [address] Patti, Chair 11 Hem Onc Scen[address] 200 [facility] [place] [address] Arrived 07/24/2023 1:00 PM EST Hem/Onc Treatment [facility]ematology[facility] [place] [facility] [address] Patti, Chair 5 Hem Onc Scenery 200 [facility] [place] [address] 07/25/2023 1:00 PM EST Hem/Onc Treatment [facility]ematology[facility] [place] [facility] [address] Patti, Chair 2 Hem Onc Scenery 200 [facility] [place] [address] 07/26/2023 1:30 PM EST Hem/Onc Treatment [facility]ology[facility] [place] [facility] [address] 08/12/2023 11:20 AM EST Hospital Encounter OR [facility], Operating Room [facility] [address] [place] [phone] Stiven Ram DO [address] [place] [phone] 08/12/2023 11:20 AM EST - 08/12/2023 11:45 AM EST Surgery OR [facility], Operating Room [facility] [address] [place] [phone] Stiven Ram, [address] [place] [phone] INJECTION SPINE LUMBAR OR [facility] 08/13/2023 9:30 AM EST Office Visit Hematology/Oncology [facility] [address] [place] [address] Corbin Nielson MD [address] [place] [address] 11/06/2023 1:00 PM EDT Office Visit Family Practice [facility] [place] [address] [place] [address] Joe Peng, DO 200 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) Hypomagnesemia CBC STAT 07/23/2023 11:20 AM EST 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) Hypomagnesemia DIFFERENTIAL, TECHNOLOGIST REVIEW Routine 07/23/2023 11:20 AM EST 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) Hypomagnesemia documented in this encounter Results * (ABNORMAL) DIFFERENTIAL, TECHNOLOGIST REVIEW (07/23/2023 11:20 AM EST) Pathologist [facility] nRs 07/23/2023 11:35 AM EST [facility] 56-02 Reactive Lymphocytes Present(A ) None Seen 07/23/2023 11:35 AM EST [facility] 56-02 Blood Venous blood specimen / Unknown Venipuncture / Unknown 07/23/2023 11:20 AM EST 07/23/2023 11:20 AM EST Corbin Nielson MD LAB BLOOD ORDERA BLES [facility] [address] [place] [address] * (ABNORMAL) DIFFERENTIAL, AUTOMATED (07/23/2023 11:20 AM EST) Pathologist [facility] WBC 4.30 4.00 - 10.80 K/uL 07/23/2023 11:35 AM EST [facility] 56-02 Neutrophils % 44.4 40.0 - 75.0 % 07/23/2023 11:35 AM EST [facility] 56-02 Lymphocytes % 35.1 18.0 - 42.0 % 07/23/2023 11:35 AM EST [facility] 56-02 Monocytes % 15.6(H) 1.0 - 11.0 % 07/23/2023 11:35 AM EST [facility] 56-02 Eosinophils % 3.7 0.0 - 6.0 % 07/23/2023 11:35 AM EST [facility] 56-02 Basophils % 1.2 0.0 - 2.0 % 07/23/2023 11:35 AM [facility] 56- Absolute Neutrophils 1.91 1.80 - 7.70 K/uL 07/23/2023 11:35 AM [facility] 56- Absolute Lymphocytes 1.51 1.00 - 4.80 K/ul 07/23/2023 11:35 AM [facility] 56- Absolute Monocytes 0.67 0.00 - 1.10 K/uL 07/23/2023 11:35 AM [facility] 56- Absolute Eosinophils 0.16 0.00 - 0.70 K/uL 07/23/2023 11:35 AM [facility] 56- Absolute Basophils 0.05 0.00 - 0.20 K/uL 07/23/2023 11:35 AM [facility] 56- Blood Venous blood specimen / Unknown Venipuncture / Unknown 07/23/2023 11:20 AM EST 07/23/2023 11:20 AM EST Corbin Nielson MD LAB BLOOD ORDERA BLES [facility] 56- [address] [place] [address] * (ABNORMAL) CBC (07/23/2023 11:20 AM EST) WBC 4.30 4.00 - 10.80 K/uL 07/23/2023 11:35 AM [facility] 56- RBC 3.02 3.85 - 5.15 M/uL 07/23/2023 11:35 AM [facility] 56- HGB 11.1(L) 12.0 - 15.3 g/dL 07/23/2023 11:35 AM [facility] 56- HCT 34.1(L) 36.0 - 45.2 % 07/23/2023 11:35 AM [facility] 56- MCV 112.9 81.5 - 97.5 fL 07/23/2023 11:35 AM [facility] 56- MCH 36.8 27.0 - 34.0 pg 07/23/2023 11:35 AM [facility] 56 MCHC 32.6 32.0 - 36.0 g/dL 07/23/2023 11:35 AM [facility] 56- RDW 14.4 11.5 - 15.5 % 07/23/2023 11:35 AM [facility] 56- PLT 223 140 - 400 K/uL 07/23/2023 11:35 AM [facility] 56- MPV 8.9 6.6 - 11.1 fL 07/23/2023 11:35 AM [facility] 56- Blood Venous blood specimen / Unknown Venipuncture / Unknown 07/23/2023 11:20 AM EST 07/23/2023 11:20 AM EST Corbin Nielsno MD LAB BLOOD ORDERA BLES [facility] 56- [address] [place], [place] [phone] documented in this encounter Visit Diagnoses Diagnosis 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 No Code Status History Code Status Date Activated Date Inactivated Comments Full Code 06/15/2016 5:56 PM 08/09/2016 8:19 PM This order reflects the patients wishes and were consensually agreed upon. Question Answer Comments Discussion of Advance Directives occurred with: Patient Does the patient have a Living Will? No Does the patient have Health Care Power of Carboy Filler? No Full Code 05/15/2016 3:18 AM 06/08/2016 6:42 PM This order reflects the patients wishes and were consensually agreed upon. Question Answer Comments Discussion of Advance Directives occurred with: Not Discussed Care Teams Clerk Of Superior Court Relationship Specialty Start Date End Date Joe Peng DO [address] [place] [address] PCP - General Family Medicine 05/19/18 documented as of this encounter
--- OUTSIDE RECORDS SUMMARY | 2023-08-22 00:27 | External Medical Summary | Summary of Care ---
Author Name Unknown Organization [facility] Address [address] [facility] [place] [address] Phone [phone] Care Team Providers Care Economics Teacher Name Role Phone Joe Peng DO Primary Care Provider [phone] Reason for Visit * Reason Comments Re-Check Encounter Details Date Type Department Care Team (Late st Contact Info) Description 07/09/2023 1:00 PM EST Office Visit Family Practice [facility] [place] 200 [facility] [place] [address] Rayna Solares PA-C 200 [facility] [place] [address] Acquired hypothyroidism*; 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); Diet-controlled diabetes mellitus (HCC); Hypokalemia; Hypomagnesemia; Takotsubo cardiomyopathy; Hepatitis, autoimmune (HCC); Gastroesophageal reflux disease without esophagitis; Leukemia cutis ; Thrombocytopenia (HCC); Acute myeloid leukemia in remission (HCC); 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); Chronic myeloid leukemia, BCR/ABL-positive, not having achieved remission (HCC); Chronic leukemia of unspecified cell type not having achieved remission (HCC); 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); Chemotherapy-induced neutropenia ; H/O allogeneic bone marrow transplant (HCC); Transaminasemia; Body mass index (BMI) less than 19 Allergies Active Allergy Reactions Criticality Noted Date Comments Amoxicillin Nausea/vomiting 11/14/2015 Penicillins Nausea/vomiting Low 08/12/2007 tolerated cephalosporins in past Other reaction(s): Nausea Only Other reaction(s): "makes me nervous", Nausea documented as of this encounter (statuses as of 07/09/2023) Medications Medication Sig Dispensed Refills Start Date End Date Status Calcium Carb-Cholecalcife rol 1000-800 MG-UNIT Oral Tablet Take 1 Tablet by mouth in the morning. 0 Active Magnesium 400 MG TABS Take 2 tabs twice daily 360 Tab 1 04/12/20 20 Active buPROPion HCl ER (XL) 150 MG Oral Tablet Extended Release 24 Hour (Wellbutrin XL) Take 1 Tablet by mouth in the morning. 0 05/05/20 21 Active buPROPion HCl ER (XL) 300 MG Oral Tablet Extended Release 24 Hour (Wellbutrin XL) Take 1 Tablet by mouth in the morning. 0 05/05/20 21 Active Potassium Chloride ER 20 MEQ Oral Tablet Extended ReleaseIndication s:Hypokalemia Take 1 Tablet by mouth in the morning. 90 Tablet 1 11/30/19 22 Active Prochlorperazine Maleate 10 MG Oral Tablet (Compazine) Take by mouth 1 Tablet every 8 hours as needed for Nausea. Every 6 hours as needed for nausea 30 Tablet 11 03/08/20 22 Active LORazepam 0.5 MG Oral Tablet (Ativan)Indicatio ns:Anxiety disorder due to medical condition Take by mouth 1 Tablet daily as needed for Anxiety. 30 Tablet 3 06/04/20 22 Active Levothyroxine Sodium 150 MCG Oral Tablet (Levoxyl)Indicati ons:Acquired hypothyroidism TAKE 1 TABLET IN THE MORNING AT LEAST 30 MINUTESPRIOR TO BREAKFAST OR OTHERMEDICATIONS 90 Tablet 1 02/21/20 23 Active Omeprazole 20 MG Oral Capsule Delayed Release (PriLOSEC)Indicat ions:Gastroesopha geal reflux disease without esophagitis TAKE 1 CAPSULE DAILY 90 Capsule 1 03/14/20 23 Active Acetaminophen 500 MG Oral Tablet Take 1 Tablet by mouth every 6 hours as needed. 0 Active Gabapentin 300 MG Oral Capsule (Neurontin)Indica tions:Lumbar radiculopathy Take 2 Capsules by mouth in the morning and 2 Capsules in the evening. 120 Capsule 5 04/26/20 23 Active Metoprolol Succinate ER 25 MG Oral Tablet Extended Release 24 Hour (toPROL XL)Indications:Ta kotsubo cardiomyopathy TAKE 1/2 TABLET DAILY 45 Tablet 3 05/27/20 23 Active Ondansetron 8 MG Oral Tablet DisintegratingInd ications:Acute myeloid leukemia in remission (HCC) Place 1 Tablet on tongue every 8 hours as needed for Nausea. dissolve on tongue. 30 Tablet 2 06/03/20 23 Active Vitamin B-12 1000 MCG Oral Tablet (Cyanocobalamin) TAKE 1 TABLET BY MOUTH EVERY DAY IN THE MORNING 90 Tablet 1 07/02/20 23 Active busPIRone HCl 10 MG Oral Tablet (Buspar) 0 06/19/20 23 Active busPIRone HCl 5 MG Oral Tablet (Buspar)Indicatio ns:RASTA (generalized anxiety disorder) Takes 2 tabs in the morning, 1 at noon, 2 tabs with dinner 150 Tablet 0 11/30/19 22 023 Discontinued HYDROcodone-Aceta minophen 5-325 MG Oral Tablet Take 1 Tablet by mouth every 8 hours as needed for Pain, Mild. 15 Tablet 0 05/14/20 23 023 Discontinued(R efill) documented as of this encounter (statuses as of 07/09/2023) Active Problems Problem Noted Date Diagnosed Date [...] as of this encounter (statuses as of 07/09/2023) Resolved Problems Problem Noted Date Diagnosed Date [...] 06/08/2016 07/31/2017 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 encounter 02/12/2012 04/27/2015 [facility] current use of ant icoagulant therapy 02/12/2012 04/27/2015 Overview: ICD-10 update of inactive term Other disorder of menstruati on and other abnormal bleeding from female genital tract 09/16/2007 04/27/2015 Uterine leiomyoma 09/16/2007 04/27/2015 documented as of this encounter (statuses as of 07/09/2023) Immunizations Name Administration Dates Next Due COVID-19 mRNA, LNP-s, No Pre serve, 2-Dose Series ([employer]) 05/08/2021,08/29/2020,08/08/2020 DTaP Dipth/Tet/Acell Pertussis (Infanrix), Peds 12/25/2017,10/30/2017,09/25/2017 HIB Booster (Hiberix) 12/25/2017,10/30/2017,09/06 IPV - Polio Virus Vaccine (Inact) 12/25/2017,,09/30/2017 MMR - Measles/Mumps/Rubella Vaccine 09/30/2017 Pneumococcal Conjugate Vacc, 13 Valent (Prevnar) 05/25/2019,12/25/2017,10/30/2017,09/25 Pneumococcal Polysaccharide PPV23 (Pneumovax) 07/06/2022 SEASONAL INFLUENZA, PF, 6 M & Above, IM , (FLULAVAL or FLUZONE) 04/27/2020,05/25/2019,05/19/2018 Season Influenza, Quad, PF, Adjuvanted, 65+ Yrs, IM (FLUAD) 05/08/2021 Seasonal Influenza, Quadriva lent Hd (Fluzone Hd) [...] Sign Reading Time Taken Comments Blood Pressure 99/67 07/09/2023 12:59 PM EST Pulse 73 07/09/2023 12:59 PM EST Temperature 36.8 C (98.2 F) 07/09/2023 12:[address] Respiratory Rate 16 07/09/2023 12:59 PM EST Oxygen Saturation - - Inhaled Oxygen Concentration - - Weight 53.5 kg (118 lb) 07/09/2023 12:59 PM EST Height - - Body Mass Index 18.76 04/09/2023 9:25 AM EDT documented in this encounter Functional Status Functional [...] No 06/15/2016 documented as of this encounter Progress Notes * Rayna Solares PA-C - 07/09/2023 2:48 PM EST Subjective Codi Soto is a 68 year old female that presents for Re-Check 68 y/o female presents for routine follow-up. Thought she was having issues with leukemia cruris. Had biopsy done, it was negative. Rashes are starting to go away. She is supposed to have another bone marrow biopsy in [place]; waiting to get scheduled for this. Continues with chemo once a month. Feels extremely worn out afterwards but tolerates it well otherwise. Follows with hematology/oncology regularly. Routine follow-up with cardiology. They think her cardiomyopathy could be due to low potasium levels. She is taking potassium supplements and her numbers have since been stable. Also taking magnesiumsupplements. Labs reviewed, stable. No significant changes in liver enzymes, elecrolytes, blood counts. Routine -will ask about shingles and RSV vaccine (ask oncologist) -mammo and DEXA up to date Objective BP 99/67 | Pulse 73 | Temp 36.8 C (98.2 F) | Resp 16 | Wt 53.5 kg (118 lb) | LMP 03/20/2009 | BMI 18.76 kg/m | BSA 1.58 m Body mass index is 18.76 kg/m. BP Readings from Last 3 Encounters: 07/09/23 99/67 06/21/23 112/72 06/20/23 107/66 Wt Readings from Last 3 Encounters: 07/09/23 53.5 kg (118 lb) 06/18/23 50.1 kg (110 lb 6.4 oz) 06/10/23 51.5 kg (113 lb 8 oz) Physical Exam Vitals and nursing note reviewed. Constitutional: General: She is not in acute distress. Appearance: Normal appearance. HENT: Head: Normocephalic and atraumatic. Right Ear: Tympanic membrane and ear canal normal. Left Ear: Tympanic membrane and ear canal normal. Nose: No congestion or rhinorrhea. Mouth/Throat: Mouth: Mucous membranes are moist. Pharynx: No oropharyngeal exudate or posterior oropharyngeal erythema. Eyes: General: No scleral icterus. Extraocular Movements: Extraocular movements intact. Conjunctiva/sclera: Conjunctivae normal. Pupils: Pupils are equal, round, and reactive to light. Cardiovascular: Rate and Rhythm: Normal rate and regular rhythm. Heart sounds: Normal heart sounds. No murmur heard. No friction rub. No gallop. Pulmonary: Breath sounds: Normal breath sounds. No wheezing, rhonchi or rales. Musculoskeletal: Cervical back: Neck supple. No muscular tenderness. Lymphadenopathy: Cervical: No cervical adenopathy. Skin: General: Skin is warm and dry. Findings: No rash. Neurological: General: No focal deficit present. Mental Status: She is alert and oriented to person, place, and time. Cranial Nerves: No cranial nerve deficit. Gait: Gait normal. Deep Tendon Reflexes: Reflexes normal. Psychiatric: Mood and Affect: Mood normal. Behavior: Behavior normal. Assessment and plan 1. 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) 2. Acquired hypothyroidism -stable 3. Diet-controlled diabetes mellitus (HCC) -stable 4. Hypokalemia -well contorlled on daily supplementation 5. Hypomagnesemia -well controlled with supplementation daily 6. Takotsubo cardiomyopathy -follows with cardiology 7. Hepatitis, autoimmune (HCC) -stable 8. Gastroesophageal reflux disease without esophagitis -stable 9. Leukemia cutis -follows with derm, most recent biopsy was negative 10. Thrombocytopenia (HCC) 11. Acute myeloid leukemia in remission (HCC) 12. 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 Chronic myeloid leukemia, BCR/ABL-positive, not having achieved remission (HCC) 14. Chronic leukemia of unspecified cell type not having achieved remission (HCC) 15. 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 Chemotherapy-induced neutropenia 17. H/O allogeneic bone marrow transplant (HCC) -awaiting repeat bone marrow biopsy 18. Transaminasemia 19. Body mass index (BMI) less than 19 Follow up Follow-up: Return in about 6 months (around 01/08/2024). | Check-out note: Routine follow-up Total time today including reviewing chart before the visit, pertinent labs, imaging reports, face to face time, and documentation time was 25 minutes. The above was discussed and understanding was expressed. Rayna Solares PA-C documented in this encounter Plan of Treatment Upcoming Encounters Date Type Department Care Team (Latest Contact Info) Description 07/16/2023 1:30 PM EST Laboratory Laboratory [facility] Patti [place] [address] [place] [phone] [facility] [address] [place], [place] [address] 07/16/2023 2:30 PM EST Hem/Onc Treatment Hematology/Oncolog y Treatment, [place] 200 [facility], [place] [address] Patti, Chair 11 Hem Onc Scenery [address] [place] [address] 07/17/2023 9:00 AM EST Office Visit Hematology/Oncolog y Scenery [place] [address] [place] [address] Corbin Nielson MD [address] [place] [address] 07/17/2023 9:30 AM EST Hem/Onc Treatment Hematology/Oncolog y Treatment, [place] 200 [facility] [place] [address] Patti, Chair 8 Hem Onc Scenery [address] [place], [place] [address] 07/18/2023 11:45 AM EST Hem/Onc Treatment Hematology/Oncolog y Treatment, [place] 200 [facility] [place] [address] 07/19/2023 11:30 AM EST Hem/Onc Treatment Hematology/Oncolog y Treatment, [place] 200 [facility] [place] [address] Patti, Chair 9 Hem Onc Scen[address] [place], [place] [address] 08/12/2023 11:20 AM EST Hospital Encounter OR [facility], Operating Room [facility] [address] [place] [phone] Stiven Ram DO [address] [place] [phone] 08/12/2023 11:20 AM EST - 08/12/2023 11:45 AM EST Surgery OR [facility], Operating Room [facility] [address] [place] [phone] Stiven Ram, DO [address] [place] [phone] INJECTION SPINE LUMBAR OR [place] 08/13/2023 9:30 AM EST Office Visit Hematology/Oncolog y [facility] [address] [facility] [address] [place] [address] Corbin Nielson MD 200 [facility] [place] [address] 11/06/2023 1:00 PM EDT Office Visit Family Practice [facility] [address] [place] [address] Joe Peng, DO 200 [facility] [place] [address] Scheduled Procedures Name Priority Associated Diagnoses Date/Ti [...] 023, 12/04/2021, 08/15/2020, Additional history exists GFR 06/18/2024 06/18/2023, 02/2023, 06/03/2023, Additional history exists COLONOSCOPY-EVERY 3 YRS AGES [...] as of this encounter Visit Diagnoses Diagnosis Acquired hypothyroidism- Primary Unspecified hypothyroidism 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) Diet-controlled diabetes mellitus (HCC) Hypokalemia Hypopotassemia Hypomagnesemia Disorders of magnesium metabolism Takotsubo cardiomyopathy Takotsubo syndrome Hepatitis, autoimmune (HCC) Autoimmune hepatitis Gastroesophageal reflux disease without esophagitis Esophageal reflux Leukemia cutis Other leukemia of unspecified cell type, without mention of having achieved remission Thrombocytopenia (HCC) Thrombocytopenia, unspecified Acute myeloid leukemia in remission (HCC) Acute myeloid leukemia in remission 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) Acute myeloid leukemia, in relapse Chronic myeloid leukemia, BCR/ABL-positive, not having achieved remission (HCC) Chronic myeloid leukemia, without mention of having achieved remission Chronic leukemia of unspecified cell type not having achieved remission (HCC) 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 No Code Status History Code Status Date Activated Date Inactivated Comments Full Code 06/15/2016 5:56 PM 08/09/2016 8:19 PM This order reflects the patients wishes and were consensually agreed upon. Question Answer Comments Discussion of Advance Directives occurred with: Patient Does the patient have a Living Will? No Does the patient have Health Care Power of Stem Roller Operator? No Full Code 05/15/2016 3:18 AM 06/08/2016 6:42 PM This order reflects the patients wishes and were consensually agreed upon. Question Answer Comments Discussion of Advance Directives occurred with: Not Discussed Care Teams Economics Teacher Relationship Specialty Start Date End Date Joe Peng DO [address] [place], [place] [address] PCP - General Family Medicine 05/19/18 documented as of this encounter
--- OUTSIDE RECORDS SUMMARY | 2023-08-22 00:27 | External Medical Summary ---
Author Name Unknown Address Unknown Organization [id number] [place] [address] Laboratory Report Ordering Provider Test Date Status APRYL MARINELLI 07/16/2023 12:35:29 Final Observation Date Value Abnormality Reference (Units ) Status SYNC LEUKOCYTES IN BLOOD BY AUTOMATED COUNT 07/16/2023 12:35:29 2.43 Below low normal 4.00-10.80 (K/uL) Final Segs 07/16/2023 12:35:29 29.2 Below low normal 40.0-75.0 (%) Final Lymphs % 07/16/2023 12:35:29 54.3 Above high normal 18.0-42.0 (%) Final Monos 07/16/2023 12:35:29 7.4 1.0-11.0 (%) Final Eosinophils 07/16/2023 12:35:29 5.8 0.0-6.0 (%) Final Basos 07/16/2023 12:35:29 3.3 Above high normal 0.0-2.0 (%) Final Absolute Segs 07/16/2023 12:35:29 0.71 Below low normal 1.80-7.70 (K/uL) Final Lymphs, absolute 07/16/2023 12:35:29 1.32 1.00-4.80 (K/ul) Final Monos, Abs 07/16/2023 12:35:29 0.18 0.00-1.10 (K/uL) Final Eos, Abs 07/16/2023 12:35:29 0.14 0.00-0.70 (K/uL) Final Basos, Abs 07/16/2023 12:35:29 0.08 0.00-0.20 (K/uL) Final Performing Location [facility] [place] [address]
--- OUTSIDE RECORDS SUMMARY | 2023-08-22 00:27 | External Medical Summary | Summary of Care ---
Author Name Unknown Organization [facility] Address [address] [place] [address] Phone [phone] Care Team Providers Care Manual Qa Tester Name Role Phone Joe Peng DO Primary Care Provider [phone] Reason for Visit * Reason Onset Date Comments Scheduling 07/16/2023 Bone marrow biop sy Encounter Details Date Type Department Care Team (Late st Contact Info) Description 07/16/2023 Telephone Radiology, [address] [id number] Marija Aaron I, KARLEE Scheduling (Bone marrow biopsy) Allergies Active Allergy Reactions Criticality Noted Date Comments Amoxicillin Nausea/vomiting 11/14/2015 Penicillins Nausea/vomiting Low 08/12/2007 tolerated cephalosporins in past Other reaction(s): Nausea Only Other reaction(s): "makes me nervous", Nausea documented as of this encounter (statuses as of 07/16/2023) Medications Medication Sig Dispensed Refills Start Date [...] MG Oral Tablet (Buspar) 0 3 Active documented as of this encounter (statuses as of 07/16/2023) Active Problems Problem Noted Date Diagnosed Date [...] as of this encounter (statuses as of 07/16/2023) Resolved Problems Problem Noted Date Diagnosed Date [...] as of this encounter (statuses as of 07/16/2023) Immunizations Name Administration Dates Next Due COVID-19 mRNA, LNP-s, No Pre serve, 2-Dose Series ([facility]) 05/08/2021,08/29/2020,08/08/2020 DTaP Dipth/Tet/Acell Pertussis (Infanrix), Peds 12/25/2017,10/30/2017,09/25/2017 [...] encounter Miscellaneous Notes * Telephone Encounter - Marija Aaron RN - 07/16/2023 3:22 PM EST Jeanine spoke to schedule bone marrow biopsy for 07-22 with . This nurse spoke with patient to review medications and required lab work. Eating, drinking, and check in instructions with patient. Order for cbc/diff placed Patient identified by: name/birthdate Person taught: Patient METHOD: Lecture-telephone interview Patient Preferred Learning Methods: Lecture-Telephone interview PATIENT EDUCATION SCREENING Education Screening: Patient Motivation Level: Asks Questions and Eager to Learn Language Barrier: no Physical Barrier: N/A LEARNING NEED: Health history interview completed, pre op information given, and questions answeredvia telephone interview. OUTCOME: State / Describe / Explain PATIENT INSTRUCTIONS GIVEN: - Medication Instructions Reviewed - NPO Instructions Reviewed, pt to stop eating 8 hours prior to procedure and stop drinking 2 hoursprior to procedure. -Division Order Technician required Location and check-in instructions - Obtain blood work as ordered Verbalizes understanding of education: Yes Procedure date at time of Imaging Encounter: 07-22 What procedure is patient having? Bone marrow biopsy Laterality confirmed as N/a Does the patient have a yellow bar? Did not The Patient was given the opportunity to ask questions concerning the procedure. Signature: Marija Aaron RN 07/16/2023 documented in this encounter Plan of Treatment Upcoming Encounters Date Type Department Care Team (Latest Contact Info) Description 07/23/2023 11:30 AM EST Laboratory Laboratory [facility] Patti [place] [address] [place] [phone] [facility] [place] [address] 07/23/2023 12:30 PM EST Hem/Onc Treatment Hematology/Oncolog y Treatment, [place] 200 [facility], [place] [address] Patti, Chair 11 Hem Onc Scenery [address] [place], [place] [address] 07/24/2023 1:00 PM EST Hem/Onc Treatment Hematology/Oncolog y Treatment, [place] 200 [facility], [place] [address] Patti, Chair 5 Hem Onc Scenery [address] [place], [place] [address] 07/25/2023 1:00 PM EST Hem/Onc Treatment Hematology/Oncolog y Treatment, [place] 200 [facility], [place] [address] Patti, Chair 2 Hem Onc Scenery [address] [place] [address] 07/26/2023 1:30 PM EST Hem/Onc Treatment Hematology/Oncolog y Treatment, [place] 200 [facility], [place] [address] 08/12/2023 11:20 AM EST Hospital Encounter OR [facility], Operating Room [facility] [address] [place] [phone] Stiven Ram, [address] [place] [address] 08/12/2023 11:20 AM EST - 08/12/2023 11:45 AM EST Surgery OR [facility], Operating Room [facility] [address] [place] [phone] Stiven Ram, DO [address] [place] [address] INJECTION SPINE LUMBAR OR SACRAL 08/13/2023 9:30 AM EST Office Visit Hematology/Oncolog y Scenery Patti [place] [address] [place] [address] Corbin Nielson MD [address] [place] [address] 11/06/2023 1:00 PM EDT Office Visit Family Practice Natalee Armstrong [place] 200 [facility] [place] [address] Joe Peng DO 200 [facility] [place] [address] Scheduled Orders Name Type Priority Associated Diagnoses Orde r Schedule CBC WITH WBC DIFFERENTIAL Lab STAT 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 No Code Status History Code Status Date Activated Date Inactivated Comments Full Code 06/15/2016 5:56 PM 08/09/2016 8:19 PM This order reflects the patients wishes and were consensually agreed upon. Question Answer Comments Discussion of Advance Directives occurred with: Patient Does the patient have a Living Will? No Does the patient have Health Care Power of Electrical Accessories Ii Assembler? No Full Code 05/15/2016 3:18 AM 06/08/2016 6:42 PM This order reflects the patients wishes and were consensually agreed upon. Question Answer Comments Discussion of Advance Directives occurred with: Not Discussed Care Teams Manual Qa Tester Relationship Specialty Start Date End Date Joe Peng DO [address] [place] [address] PCP - General Family Medicine 05/19/18 documented as of this encounter
--- OUTSIDE RECORDS SUMMARY | 2023-08-22 00:27 | External Medical Summary ---
Author Name Unknown Address Unknown Organization K09:[facility] [place] [address] Laboratory Report Ordering Provider Test Date Status APRYL MARINELLI 07/16/2023 12:35:29 Final Observation Date Value Abnormality Reference (Units ) Status BUN 07/16/2023 12:35:29 8 6-20 (mg/dL) Final Creatinine 07/16/2023 12:35:29 0.8 0.5-1.0 (mg/dL) Final Glomerular filtration rate/1.73 sq M.predicted [Volume Rate/Area] in Serum, Plasma or Blood by Creatinine-based formula (CKD-EPI) 07/16/2023 12:35:29 84 >=60 (mL/min) Final eGFR is calculated based on the CKD-EPI 2020 equation SODIUM 07/16/2023 12:35:29 142 135-146 (m mol/L) Final Potassium 07/16/2023 12:35:29 4.0 3.5-5.1 (m mol/L) Final Cl 07/16/2023 12:35:29 107 98-107 (mm ol/L) Final CO2 07/16/2023 12:35:29 27 22-32 (mmo l/L) Final Anion gap 07/16/2023 12:35:29 8 7-15 (mmol /L) Final Glucose 07/16/2023 12:35:29 83 70-120 (mg /dL) Final Albumin 07/16/2023 12:35:29 3.6 Below low normal 3.8 -5.0 (g/dL) Final AST (Aspartate aminotransferase) 07/16/2023 12:35:29 39 Above high normal 10-35 (U/L) Final Alk Phos 07/16/2023 12:35:29 356 Above high normal 35 -130 (U/L) Final Bilirubin, Total 07/16/2023 12:35:29 0.3 <=1 .2 (mg/dL) Final Calcium 07/16/2023 12:35:29 8.7 8.4-10.2 ( mg/dL) Final Protein 07/16/2023 12:35:29 6.1 6.0-8.3 (g /dL) Final ALT (Alanine aminotransferase) 07/16/2023 12:35:29 46 Above high normal 10-35 (U/L) Final Performing Location [facility] [place] [address]
--- OUTSIDE RECORDS SUMMARY | 2023-08-22 00:27 | External Medical Summary ---
Author Name Unknown Address Unknown Organization K09:[facility] [place] [place] [address] Laboratory Report Ordering Provider Test Date Status APRYL MARINELLI 07/16/2023 12:35:29 Final Observation Date Value Abnormality Reference (Units ) Status Nucleated erythrocytes/100 leukocytes [Ratio] in Blood by Automated count 07/16/2023 12:35:29 Final Variant lymphocytes [Presence] in Blood by Light microscopy 07/16/2023 12:35:29 Present Abnormal None Seen Final Performing Location [facility] [place]e [place] [address]
--- OUTSIDE RECORDS SUMMARY | 2023-08-22 00:27 | External Medical Summary ---
Author Name Unknown Address Unknown Organization K1F:[facility] - [address] [place] [address] Laboratory Report Ordering Provider Test Date Status PUJA THOMAS 07/22/2023 09:08:23 Final Observation Date Value Abnormality Reference (Units ) Status WBC, Total 07/22/2023 09:08:23 4.34 4.00-10.80 (K/uL) Final RBC 07/22/2023 09:08:23 2.99 3.85-5.15 (M/uL) Final Hemoglobin 07/22/2023 09:08:23 11.3 Below low normal 12.0-15.3 (g/dL) Final HCT 07/22/2023 09:08:23 33.0 Below low normal 36.0-45.2 (%) Final MCV 07/22/2023 09:08:23 110.4 81.5-97.5 (fL) Final MCH 07/22/2023 09:08:23 37.8 27.0-34.0 (pg) Final MCHC 07/22/2023 09:08:23 34.2 32.0-36.0 (g/dL) Final RDW 07/22/2023 09:08:23 14.8 11.5-15.5 (%) Final Platelets 07/22/2023 09:08:23 215 140-400 (K/uL) Final MPV 07/22/2023 09:08:23 8.7 6.6-11.1 (fL) Final Nucleated erythrocytes/100 leukocytes [Ratio] in Blood by Automated count 07/22/2023 09:08:23 0 <=0 (/100 WBCs) Final Performing Location [facility] - [address] [place] [address]
--- OUTSIDE RECORDS SUMMARY | 2023-08-22 00:27 | External Medical Summary ---
Author Name Unknown Address Unknown Organization K01:LABORATORY [facility] - [address] [facility] [place] [address] Laboratory Report Ordering Provider Test Date Status SOLO ABARCA 07/22/2023 11:30:00 Final Observation Date Value Abnormality Reference (Units ) Status REFERENCE LAB SCANNED REPORT 07/22/2023 11:30:00 See Scanned Report Final Performing Location [facility] - [address] [place] [address]
--- OUTSIDE RECORDS SUMMARY | 2023-08-22 00:27 | External Medical Summary | Summary of Care ---
Author Name Unknown Organization [facility] Address [address] [place] [address] Phone [phone] Care Team Providers Care Engraver Automatic Name Role Phone Brenda Daniels DO Primary Care Provider [phone] Reason for Visit * Reason Onset Date Comments Medication Refill 07/08/2023 Encounter Details Date Type Department Care Team (Late st Contact Info) Description 07/08/2023 Refill Family Practice [facility] 200 [facility] [place] [address] Brenda Daniels DO [address] [place] [address] Allergies Active Allergy Reactions Criticality Noted Date [...] MORNING 90 Tablet 1 07/02/20 23 Active HYDROcodone-Aceta minophen 5-325 MG Oral Tablet Take 1 Tablet by mouth every 8 hours as needed for Pain, Mild. 15 Tablet 0 07/09/20 23 Active busPIRone HCl 5 MG Oral [...] 06/08/2016 07/31/2017 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 encounter 02/12/2012 04/27/2015 prison current use of ant icoagulant therapy 02/12/2012 04/27/2015 Overview: ICD-10 update of inactive term Other disorder of menstruati on and other abnormal bleeding from female genital tract 09/16/2007 04/27/2015 Uterine leiomyoma 09/16/2007 04/27/2015 documented as of this encounter (statuses as of 07/09/2023) Immunizations Name Administration Dates Next Due COVID-19 mRNA, LNP-s, No Pre serve, 2-Dose Series ([employer]) 05/08/2021,08/29/2020,08/08/2020 DTaP Dipth/Tet/Acell Pertussis (Infanrix), Peds 12/25/2017,10/30/2017,09/25/2017 [...] Telephone Encounter - Brenda Daniels DO - 07/09/2023 2:51 PM ESTSigned Prescriptions: Disp Refills HYDROcodone-Acetaminophen 5-325 MG Oral Ta*15 Tab*0 Sig: Take 1 Tablet by mouth every 8 hours as needed for Pain, Mild. Authorizing Provider: BRENDA DANIELS Refused Prescriptions: Disp Refills Vitamin B-12 1000 MCG Oral Tablet (Cyanoco*90 Tab*1 Refused By: ANISH BUNDY Reason for Refusal : Duplicate Request * Telephone Encounter - Anish Bundy, [facility] - 07/09/2023 12:16 PM EST Pending Prescriptions: Disp Refills HYDROcodone-Acetaminophen 5-325 MG Oral Ta*15 Tab*0 Sig: Take 1 Tablet by mouth every 8 hours as needed for Pain, Mild. Refused Prescriptions: Disp Refills Vitamin B-12 1000 MCG Oral Tablet (Cyanoco*90 Tab*1 Refused By: ANISH BUNDY Reason for Refusal: Duplicate Request * Telephone Encounter - Anish Bundy [facility] - 07/09/2023 12:14 PM EST I have reviewed the patients controlled substance dispensing history in the Prescription Drug Monitoring Program in compliance with the [facility] regulations before prescribing a controlled substance. PDMP checked on 07/09/2023. Pending Prescriptions: Disp Refills HYDROcodone-Acetaminophen 5-325 MG Oral T*15 Tab*0 Sig: Take 1 Tablet by mouth every 8 hours as needed for Pain, Mild. Last Visit: 04/09/2023 (in office), 04/03/2022 (telemedicine) Next Visit: 07/09/2023 Date medication was last filled: 05/14/2023 Date medication is due for refill: 05/18/2023 Pharmacy: [id number] Is this request for a controlled substance? Yes and Urine Drug Screen Not completed Toxicology results: No results found. However, due to the size of the patient record, not all encounters were searched.Please check Results Review for a complete set of results. Please approve if appropriate. Thank you, Kwan Bundy, PharmD Clinical Pharmacist [facility] ([facility]) 07/09/23 12:15 PM [phone] documented in this encounter Plan of Treatment Upcoming Encounters Date Type Department Care Team (Latest Contact Info) Description 07/16/2023 1:30 PM EST Laboratory Laboratory [facility] Patti [place] [address] [place] [phone] Celso Armstrong [facility] [address] [facility] [place] [address] 07/16/2023 2:30 PM EST Hem/Onc Treatment Hematology/Oncolog y Treatment, [place] 200 [facility] [place] [address] Patti, Chair 11 Hem Onc Scen[place] [address] [place], [place] [address] 07/17/2023 9:00 AM EST Office Visit Hematology/Oncolog y [place] [address] [place], [place] [address] Corbin Nielson MD [address] [place], [place] [address] 07/17/2023 9:30 AM EST Hem/Onc Treatment Hematology/Oncolog y Treatment, [place] [address] [facility], [place] [address] Patti, Chair 8 Hem Onc Scen[place] [address] [place], [place] [address] 07/18/2023 11:45 AM EST Hem/Onc Treatment Hematology/Oncolog y Treatment, [place] [address] [facility], [place] [address] 07/19/2023 11:30 AM EST Hem/Onc Treatment Hematology/Oncolog y Treatment, [place] [address] [facility], [place] [address] Patti, Chair 9 Hem Onc Sc[place] [address] [place], [place] [address] 08/12/2023 11:20 AM EST Hospital Encounter OR [facility], Operating Room [facility] [address] [place] [phone] Stiven Ram, DO [address] [place] [address] 08/12/2023 11:20 AM EST - 08/12/2023 11:45 AM EST Surgery OR [facility], Operating Room [facility] [address] [place] [phone] Stiven Ram, DO [address] [place] [address] INJECTION SPINE LUMBAR OR [place] 08/13/2023 9:30 AM EST Office Visit Hematology/Oncolog y [facility] 200 [facility] [place] [address] Corbin Nielson MD 200 [facility] [place] [address] 11/06/2023 1:00 PM EDT Office Visit Family Practice [facility] [place] 200 [facility] [place] [address] Brenda Daniels DO 200 [facility] [place] [address] Scheduled Procedures Name Priority Associated Diagnoses Date/Ti [...] the patient have Health Care Power of Order Puller? No Code Status History Code Status Date Activated Date Inactivated Comments Full Code 06/15/2016 5:56 PM 08/09/2016 8:19 PM This order reflects the patients wishes and were consensually agreed upon. Question Answer Comments Discussion of Advance Directives occurred with: Patient Does the patient have a Living Will? No Does the patient have Health Care Power of Order Puller? No Full Code 05/15/2016 3:18 AM 06/08/2016 6:42 PM This order reflects the patients wishes and were consensually agreed upon. Question Answer Comments Discussion of Advance Directives occurred with: Not Discussed Care Teams Engraver Automatic Relationship Specialty Start Date End Date Brenda Daniels DO [address] [place] [address] PCP - General Family Medicine 05/19/18 documented as of this encounter
--- OUTSIDE RECORDS SUMMARY | 2023-08-22 00:27 | External Medical Summary ---
Author Name Unknown Address Unknown Organization K09:[facility] [place] [address] Laboratory Report Ordering Provider Test Date Status APRYL MARINELLI 07/16/2023 12:35:29 Final Observation Date Value Abnormality Reference (Units ) Status WBC, Total 07/16/2023 12:35:29 2.43 Below low normal 4. 00-10.80 (K/uL) Final RBC 07/16/2023 12:35:29 2.95 3.85-5.15 (M/uL) Final Hemoglobin 07/16/2023 12:35:29 10.8 Below low normal 12 .0-15.3 (g/dL) Final HCT 07/16/2023 12:35:29 32.9 Below low normal 36. 0-45.2 (%) Final MCV 07/16/2023 12:35:29 111.5 81.5-97.5 (fL) Final MCH 07/16/2023 12:35:29 36.6 27.0-34.0 (pg) Final MCHC 07/16/2023 12:35:29 32.8 32.0-36.0 (g/dL) Final RDW 07/16/2023 12:35:29 14.4 11.5-15.5 (%) Final Platelets 07/16/2023 12:35:29 279 140-400 (K /uL) Final MPV 07/16/2023 12:35:29 8.6 6.6-11.1 ( fL) Final Performing Location [facility] [place] [address]
--- OUTSIDE RECORDS SUMMARY | 2023-08-22 00:27 | External Medical Summary | Summary of Care ---
Author Name Unknown Organization [facility] Address [address] [place] [address] Phone [phone] Care Team Providers Care Transcripter Name Role Phone Joe Peng DO Primary Care Provider [phone] Reason for Visit * Reason Comments Chemotherapy Hold C50/D1 - Dacoge n Encounter Details Date Type Department Care Team (Late st Contact Info) Description 07/16/2023 2:30 PM EST Hem/Onc Treatment Hematology/Oncology Treatment, [place] [address] [place] [address] Patti, Chair 11 Hem Onc Scen[place] [address] [place] [address] Allergies Active Allergy Reactions Criticality Noted Date [...] mRNA, LNP-s, No Pre serve, 2-Dose Series ([employer]) 05/08/2021,08/29/2020,08/08/2020 DTaP Dipth/Tet/Acell Pertussis (Infanrix), Peds 12/25/2017,10/30/2017,09/25/2017 [...] as of this encounter Nursing Notes * Erin Clarke RN - 07/16/2023 3:15 PM EST ANC on labs today is 0.71. Per Dr. Nielson, will delay treatment by 1 week. Patient will return 07/23-07/26 for treatment. Patient has not had her BMBx done yet, so no need for appointment with Dr. Nielson tomorrow, per Dr. Nielson. Patient left facility and denies any further needs at this time. documented in this encounter Plan of Treatment Upcoming Encounters Date Type Department Care Team (Latest Contact Info) Description 07/23/2023 11:30 AM EST Laboratory Laboratory [facility] [address] [place] [address] Patti, Lab [address] [place] [address] 07/23/2023 12:30 PM EST Hem/Onc Treatment Hematology/Oncolog y [address], [address] [address] Patti, Chair 11 Hem Onc [place] [address] [place] [address] 07/24/2023 1:00 PM EST Hem/Onc Treatment Hematology/Oncolog [address], [address] [address] Patti, Chair 5 Hem Onc [place] [address] [place] [address] 07/25/2023 1:00 PM EST Hem/Onc Treatment Hematology/Oncolog y [address], [address] [address] Patti, Chair 2 Hem Onc [facility] [address] [place] [address] 07/26/2023 1:30 PM EST Hem/Onc Treatment [facility] [place] [address] [place] [address] 08/12/2023 11:20 AM EST Hospital Encounter OR [facility], Operating Room [facility] [address] [place] [phone] Stiven Ram, DO [address] [place] [phone] 08/12/2023 11:20 AM EST - 08/12/2023 11:45 AM EST Surgery OR [facility], Operating Room [facility] [address] [place] [phone] Stiven Ram, DO [address] [place] [address] INJECTION SPINE LUMBAR OR [place] 08/13/2023 9:30 AM EST Office Visit Hematology/Oncolog y [place] [address] [place] [address] Corbin Nielson MD [address] [place] [address] 11/06/2023 1:00 PM EDT Office Visit Family Practice [facility] [place] [place] [address] [place] [address] Joe Peng, DO [address] [place] [address] Scheduled Procedures Name Priority Associated Diagnoses Date/Ti me INJECTION SPINE LUMBAR OR SACRAL Lumbar radiculopathy 08/12/2023 11:20 AM EST COLONOSCOPY FLEXIBLE PROXIMAL DIAGNOSTIC Recall History of colon polyps Health Maintenance Due Date Last Done Comments Zoster Vaccines (1 of 2) 01/03/1975 Hepatitis B (1 of 3 - Risk 3-dose series) 2016 Diabetic Foot Exam 01/10/2022 01/10/2021, 1 , 05/19/2018 COVID-19 Vaccine ( - season) 2023 05/08/2021, 08/29/2020, 08/08/2020 HbA1c [...] the patient have Health Care Power of Tinning Machine Set Up Operator? No Code Status History Code Status Date Activated Date Inactivated Comments Full Code 06/15/2016 5:56 PM 08/09/2016 8:19 PM This order reflects the patients wishes and were consensually agreed upon. Question Answer Comments Discussion of Advance Directives occurred with: Patient Does the patient have a Living Will? No Does the patient have Health Care Power of Tinning Machine Set Up Operator? No Full Code 05/15/2016 3:18 AM 06/08/2016 6:42 PM This order reflects the patients wishes and were consensually agreed upon. Question Answer Comments Discussion of Advance Directives occurred with: Not Discussed Care Teams Transcripter Relationship Specialty Start Date End Date Joe Peng DO [address] [place] [address] PCP - General Family Medicine 05/19/18 documented as of this encounter
--- OUTSIDE RECORDS SUMMARY | 2023-08-22 00:27 | External Medical Summary ---
Author Name Unknown Address Unknown Organization K1F:[facility] - [address] [facility] [place] [place] [address] Laboratory Report Ordering Provider Test Date Status PUJA THOMAS 07/22/2023 09:08:23 Final Observation Date Value Abnormality Reference (Units ) Status SYNC LEUKOCYTES IN BLOOD BY AUTOMATED COUNT 07/22/2023 09:08:23 4.34 4.00-10.80 (K/uL) Final Segs 07/22/2023 09:08:23 28.1 Below low normal 40.0-75.0 (%) Final Lymphs % 07/22/2023 09:08:23 46.8 Above high normal 18.0-42.0 (%) Final Monos 07/22/2023 09:08:23 17.3 Above high normal 1.0-11.0 (%) Final Eosinophils 07/22/2023 09:08:23 3.9 0.0-6.0 (%) Final Basos 07/22/2023 09:08:23 2.3 Above high normal 0.0-2.0 (%) Final Immature Granulocyte, Percent 07/22/2023 09:08:23 1.6 0.0-2.0 (%) Final Absolute Segs 07/22/2023 09:08:23 1.22 Below low normal 1.80-7.70 (K/uL) Final Lymphs, absolute 07/22/2023 09:08:23 2.03 1.00-4.80 (K/ul) Final Monos, Abs 07/22/2023 09:08:23 0.75 0.00-1.10 (K/uL) Final Eos, Abs 07/22/2023 09:08:23 0.17 0.00-0.70 (K/uL) Final Basos, Abs 07/22/2023 09:08:23 0.10 0.00-0.20 (K/uL) Final Immature Granulocytes, Number 07/22/2023 09:08:23 0.07 0.00-0.20 (K/uL) Final Performing Location [facility] [address]. [place] [address]
--- OUTSIDE RECORDS SUMMARY | 2023-08-22 00:27 | External Medical Summary ---
Author Name Unknown Address Unknown Organization K09:[facility] [place] [address] Laboratory Report Ordering Provider Test Date Status APRYL MARINELLI 07/16/2023 12:35:29 Final Observation Date Value Abnormality Reference (Units ) Status Magnesium 07/16/2023 12:35:29 1.7 1.5-2.6 (m g/dL) Final Performing Location [facility] [place] [address]
--- OUTSIDE RECORDS SUMMARY | 2023-08-22 00:27 | External Medical Summary | Summary of Care ---
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); Hypomagnesemia [...] 06/08/2016 07/31/2017 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 encounter 02/12/2012 04/27/2015 custodial current use of ant icoagulant therapy 02/12/2012 04/27/2015 Overview: ICD-10 update of inactive term Other disorder of menstruati on and other abnormal bleeding from female genital tract 09/16/2007 04/27/2015 Uterine leiomyoma 09/16/2007 04/27/2015 documented as of this encounter (statuses as of 07/16/2023) Immunizations Name Administration Dates Next Due COVID-19 mRNA, LNP-s, No Pre serve, 2-Dose Series (ShareTracker) 05/08/2021,08/29/2020,08/08/2020 DTaP Dipth/Tet/Acell Pertussis (Infanrix), Peds 12/25/2017,10/30/2017,09/25/2017 [...] Care Team (Latest Contact Info) Description 07/16/2023 2:30 PM EST Hem/Onc Treatment Hematology/Oncology Treatment, [place] [address] [facility] [place] [address] Patti, Chair 11 Hem Onc Scenery 200 [facility] [place] [address] Arrived 07/17/2023 9:00 AM EST Office Visit Hematology/Oncology [facility] [place]atti [place] [address] [facility] [place] [address] Corbin Nielson MD [address] [place] [address] 07/17/2023 9:30 AM EST Hem/Onc Treatment Hematology/Oncology Treatment, [place] 200 [facility] [place] [address] Patti, Chair 8 Hem Onc Scenery 200 [facility] [place] [address] 07/18/2023 11:45 AM EST Hem/Onc Treatment Hematology/Oncology Treatment, [place] [address] [place] [address] 07/19/2023 11:30 AM EST Hem/Onc Treatment Hematology/Oncology Treatment, [place] 200 [facility] [place] [address] Patti, Chair 9 Hem Onc Scenery 200 [facility] [place] [address] 08/12/2023 11:20 AM EST Hospital Encounter [facility], Operating Room [facility] [address] [place] [phone] Stiven Ram DO [address] [place] [phone] 08/12/2023 11:20 AM EST - 08/12/2023 11:45 AM EST Surgery OR [facility], Operating Room [facility] [address] [place] [phone] Stiven Ram, DO [address] [place] [phone] INJECTION SPINE LUMBAR OR [facility] 08/13/2023 9:30 AM EST Office Visit Hematology/Oncology [facility] [address] [place] [address] Corbin Nielson MD [address] [place] [address] 11/06/2023 1:00 PM EDT Office Visit Family Practice [facility] [place] [address] [place] [address] Joe Peng, DO [address] [place] [address] Pending Results Name Type Priority Associated Diagnoses Date /Time CBC WITH WBC DIFFERENTIAL Lab STAT 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 No Code Status History Code Status Date Activated Date Inactivated Comments Full Code 06/15/2016 5:56 PM 08/09/2016 8:19 PM This order reflects the patients wishes and were consensually agreed upon. Question Answer Comments Discussion of Advance Directives occurred with: Patient Does the patient have a Living Will? No Does the patient have Health Care Power of Photographer'S Model? No Full Code 05/15/2016 3:18 AM 06/08/2016 6:42 PM This order reflects the patients wishes and were consensually agreed upon. Question Answer Comments Discussion of Advance Directives occurred with: Not Discussed Care Teams Detective Homicide Squad Relationship Specialty Start Date End Date Joe Peng DO [address] [place] [address] PCP - General Family Medicine 05/19/18 documented as of this encounter
--- OUTSIDE RECORDS SUMMARY | 2023-08-22 00:27 | External Medical Summary ---
Author Name Unknown Address Unknown Organization K01:[facility] [place] [address] [facility] [place] [address] Laboratory Report Ordering Provider Test Date Status RIMASOLO 07/22/2023 11:30:00 Final Observation Date Value Abnormality Reference (Units ) Status BONE MARROW FOR FLOW CYTOMETRY 07/22/2023 11:30:00 Yes Final Performing Location [facility] [place] [facility] [address] [place] [address]
--- OUTSIDE RECORDS SUMMARY | 2023-08-22 00:27 | External Medical Summary | Summary of Care ---
Author Name Unknown Organization [facility] Address [address] [place] [address] Phone [phone] Care Team Providers Care Mixer Operator Hot Metal Name Role Phone Joe Peng DO Primary Care Provider [phone] Encounter Details Date Type Department Care Team (Late st Contact Info) Description 06/10/2023 Telephone Hematology/Oncology [facility] [address] [place] DEPT CLOSED - 06/18/23 [address] [place] [address] Corbin Nielson MD [address] [place] [address] Allergies Active Allergy Reactions Criticality Noted Date [...] tongue. 30 Tablet 2 06/03/20 23 Active busPIRone HCl 5 MG Oral Tablet (Buspar)Indicatio ns:RASTA (generalized anxiety disorder) Takes 2 tabs in the morning, 1 at noon, 2 tabs with dinner 150 Tablet 0 11/30/19 22 023 Discontinued Cyanocobalamin 1000 MCG Oral Tablet (Cyanocobalamin) Take 1 Tablet by mouth in the morning. 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 is questioning why this was not scheduled and patient today was in office asking why she never received a call to schedule. Please contact patient. Thank you. * Telephone Encounter - Sofi Rueda OSA - 06/10/2023 12:13 PM EST IR-please contact patient for an appt in regards to Refractory AML, leukemia cutis Where Will The Procedure Be Performed? [facility] Specimen? 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] Thank you documented in this encounter Plan of Treatment Upcoming Encounters Date Type Department Care Team (Latest Contact Info) Description 07/23/2023 11:30 AM EST Laboratory Laboratory [facility] [address] [place] [phone] Patti, Lab Scenery [address] [place] [address] 07/23/2023 12:30 PM EST Hem/Onc Treatment Hematology/Oncolog y Treatment, [place] 200 [facility], [place] [address] Patti, Chair 11 Hem Onc Scenery [address] [place], [place] [address] 07/24/2023 1:00 PM EST Hem/Onc Treatment Hematology/Oncolog y Treatment, [place] 200 [facility], [place] [address] Patti, Chair 5 Hem Onc Scenery [address] [place], [place] [address] 07/25/2023 1:00 PM EST Hem/Onc Treatment Hematology/Oncolog y Treatment, [place] 200 [facility], [place] [address] Patti, Chair 2 Hem Onc Scenery [address] [place], [place] [address] 07/26/2023 1:30 PM EST Hem/Onc Treatment Hematology/Oncolog y Treatment, [place] 200 [facility], [place] [address] 08/12/2023 11:20 AM EST Hospital Encounter [facility], Operating Room [facility] [address] [place] [phone] Stiven Ram, DO [address] [place] [phone] 08/12/2023 11:20 AM EST - 08/12/2023 11:45 AM EST Surgery OR [facility], Operating Room [facility] [address] [place] [phone] Stiven Ram, DO [address] [place] [phone] INJECTION SPINE LUMBAR OR [facility] 08/13/2023 9:30 AM EST Office Visit Hematology/Oncolog y [place]en[place] [address] [place] [address] Corbin Nielson MD 200 [facility] [place] [address] 11/06/2023 1:00 PM EDT Office Visit Family Practice [facility] [place] [address] [facility] [place] [address] Joe Peng DO 200 [facility] [place] [address] Scheduled Procedures Name Priority Associated Diagnoses Date/Ti [...] the patient have Health Care Power of Workers Compensation Coordinator? No Code Status History Code Status Date Activated Date Inactivated Comments Full Code 06/15/2016 5:56 PM 08/09/2016 8:19 PM This order reflects the patients wishes and were consensually agreed upon. Question Answer Comments Discussion of Advance Directives occurred with: Patient Does the patient have a Living Will? No Does the patient have Health Care Power of Workers Compensation Coordinator? No Full Code 05/15/2016 3:18 AM 06/08/2016 6:42 PM This order reflects the patients wishes and were consensually agreed upon. Question Answer Comments Discussion of Advance Directives occurred with: Not Discussed Care Teams Mixer Operator Hot Metal Relationship Specialty Start Date End Date Joe Peng DO [address] [place], [place] [phone] PCP - General Family Medicine 05/19/18 documented as of this encounter
--- OUTSIDE RECORDS SUMMARY | 2023-08-22 00:27 | External Medical Summary | Summary of Care ---
Author Name Unknown Organization [facility] Address [address] [place] [address] Phone [phone] Care Team Providers Care Experimental Electronics Developer Name Role Phone Joe Peng DO Primary Care Provider [phone] Encounter Details Date Type Department Care Team (Late st Contact Info) Description 07/11/2023 Orders Only Hematology/Oncology, [facility] [address] [place] [address] Corbin Nielson MD 200 [place] [address] Allergies Active Allergy Reactions Criticality Noted Date Comments Amoxicillin Nausea/vomiting 11/14/2015 Penicillins Nausea/vomiting Low 08/12/2007 tolerated cephalosporins in past Other reaction(s): Nausea Only Other reaction(s): "makes me nervous", Nausea documented as of this encounter (statuses as of 07/11/2023) Medications Medication Sig Dispensed Refills Start Date [...] as of this encounter (statuses as of 07/11/2023) Active Problems Problem Noted Date Diagnosed Date [...] as of this encounter (statuses as of 07/11/2023) Resolved Problems Problem Noted Date Diagnosed Date [...] as of this encounter (statuses as of 07/11/2023) Immunizations Name Administration Dates Next Due COVID-19 mRNA, LNP-s, No Pre serve, 2-Dose Series (Pomme de Terra) 05/08/2021,08/29/2020,08/08/2020 DTaP Dipth/Tet/Acell Pertussis (Infanrix), Peds 12/25/2017,10/30/2017,09/25/2017 [...] Description 07/16/2023 1:30 PM EST Laboratory Laboratory Scenery [place] [address] [place] [phone] Patti, Lab Scenery [address] [facility] [place] [address] 07/16/2023 2:30 PM EST Hem/Onc Treatment Hematology/Oncolog y Treatment, [place] 200 [facility] [place] [address] Patti, Chair 11 Hem Onc Scenery [address] [place] [address] 07/17/2023 9:00 AM EST Office Visit [facility] [place] [address] [place] [address] Corbin Nielson MD [address] [place] [address] 07/17/2023 9:30 AM EST Hem/Onc Treatment Hematology/Oncolog y Treatment, [place] 200 [facility] [place] [address] Patti, Chair 8 Hem Onc Scenery [address] [place] [address] 07/18/2023 11:45 AM EST Hem/Onc Treatment Hematology/Oncolog [address], [address] [address] 07/19/2023 11:30 AM EST Hem/Onc Treatment Hematology/Oncolog y Treatment, [place] 200 [facility] [place] [address] Patti, Chair 9 Hem Onc Scenery [address] [place] [address] 08/12/2023 11:20 AM EST Hospital Encounter OR [facility], Operating Room [facility] [address] [place] [phone] Stiven Ram, DO [address] [place] [phone] 08/12/2023 11:20 AM EST - 08/12/2023 11:45 AM EST Surgery OR [facility], Operating Room [facility] [address] [place] [phone] Stiven Ram, DO [address] [place] [phone] INJECTION SPINE LUMBAR OR [place] 08/13/2023 9:30 AM EST Office Visit Hematology/Oncolog y [facility] [address] [facility] [place] [address] Corbin Nielson MD 200 [facility] [place] [address] 11/06/2023 1:00 PM EDT Office Visit Family Practice [facility] [address] [place] [address] Joe Peng, DO 200 [facility] [place] [address] Scheduled Procedures Name Priority Associated Diagnoses Date/Ti [...] the patient have Health Care Power of Water Resources Business Segment Leader? No Code Status History Code Status Date Activated Date Inactivated Comments Full Code 06/15/2016 5:56 PM 08/09/2016 8:19 PM This order reflects the patients wishes and were consensually agreed upon. Question Answer Comments Discussion of Advance Directives occurred with: Patient Does the patient have a Living Will? No Does the patient have Health Care Power of Water Resources Business Segment Leader? No Full Code 05/15/2016 3:18 AM 06/08/2016 6:42 PM This order reflects the patients wishes and were consensually agreed upon. Question Answer Comments Discussion of Advance Directives occurred with: Not Discussed Care Teams Experimental Electronics Developer Relationship Specialty Start Date End Date Joe Peng DO [address] [place] [address] PCP - General Family Medicine 05/19/18 documented as of this encounter
--- OUTSIDE RECORDS SUMMARY | 2023-08-22 00:28 | External Medical Summary | Summary of Care ---
Author Name Unknown Organization [facility] Address [address] [place] [address] Phone [phone] Care Team Providers Care Cylinder Block Mechanic Name Role Phone Brenda Daniels DO Primary Care Provider [phone] Reason for Visit * Reason Comments eRx-Medication Refill Encounter Details Date Type Department Care Team (Late st Contact Info) Description 07/01/2023 Refill Family Practice [facility] [address] [place] [address] Brenda Daniels DO 200 [facility], [place] [address] Allergies Active Allergy Reactions Criticality Noted Date Comments Amoxicillin Nausea/vomiting 11/14/2015 Penicillins Nausea/vomiting Low 08/12/2007 tolerated cephalosporins in past Other reaction(s): Nausea Only Other reaction(s): "makes me nervous", Nausea documented as of this encounter (statuses as of 07/02/2023) Medications Medication Sig Dispensed Refills Start Date [...] in the morning. 0 05/05/20 21 Active busPIRone HCl 5 MG Oral Tablet (Buspar)Indication s:RASTA (generalized anxiety disorder) Takes 2 tabs in the morning, 1 at noon, 2 tabs with dinner 150 Tablet 0 11/30/19 22 Active Potassium Chloride ER 20 MEQ Oral Tablet Extended ReleaseIndications :Hypokalemia Take 1 Tablet by mouth in the morning. 90 Tablet 1 11/30/19 22 Active Prochlorperazine Maleate 10 MG Oral Tablet (Compazine) Take by mouth 1 Tablet every 8 hours as needed for Nausea. Every 6 hours as needed for nausea 30 Tablet 11 03/08/20 22 Active LORazepam 0.5 MG Oral Tablet (Ativan)Indication [...] 0 Active Gabapentin 300 MG Oral Capsule (Neurontin)Indicat ions:Lumbar radiculopathy Take 2 Capsules by mouth in the morning and 2 Capsules in the evening. 120 Capsule 5 04/26/20 23 Active HYDROcodone-Acetam inophen 5-325 MG Oral Tablet Take 1 Tablet by mouth every 8 hours as needed for Pain, Mild. 15 Tablet 0 05/14/20 23 Active Metoprolol Succinate ER 25 MG Oral Tablet Extended Release 24 Hour (toPROL XL)Indications:Uri otsubo cardiomyopathy TAKE 1/2 TABLET DAILY 45 Tablet 3 05/27/20 23 Active Ondansetron 8 MG Oral Tablet DisintegratingIndi cations:Acute myeloid leukemia in remission (HCC) Place 1 Tablet on tongue every 8 hours as needed for Nausea. dissolve on tongue. 30 Tablet 2 06/03/20 23 Active Vitamin B-12 1000 MCG Oral Tablet (Cyanocobalamin) TAKE 1 TABLET BY MOUTH EVERY DAY IN THE MORNING 90 Tablet 1 07/02/20 23 Active Cyanocobalamin 1000 MCG Oral Tablet (Cyanocobalamin) Take 1 Tablet by mouth in the morning. 90 Tablet 1 12/29/19 23 023 Discontinued documented as of this encounter (statuses as of 07/02/2023) Active Problems Problem Noted Date Diagnosed Date [...] as of this encounter (statuses as of 07/02/2023) Resolved Problems Problem Noted Date Diagnosed Date [...] 06/08/2016 07/31/2017 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 encounter 02/12/2012 04/27/2015 [facility] current use of ant icoagulant therapy 02/12/2012 04/27/2015 Overview: ICD-10 update of inactive term Other disorder of menstruati on and other abnormal bleeding from female genital tract 09/16/2007 04/27/2015 Uterine leiomyoma 09/16/2007 04/27/2015 documented as of this encounter (statuses as of 07/02/2023) Immunizations Name Administration Dates Next Due COVID-19 mRNA, LNP-s, No Pre serve, 2-Dose Series (Pfizer) 05/08/2021,08/29/2020,08/08/2020 DTaP Dipth/Tet/Acell Pertussis (Infanrix), Peds 12/25/2017,10/30/2017,09/25/2017 IPV - Polio Virus Vaccine (Inact) 12/25/2017,,09/30/2017 MMR - Measles/Mumps/Rubella Vaccine 09/30/2017 Pneumococcal Conjugate Vacc, 13 Valent (Prevnar) 05/25/2019,12/25/2017,10/30/2017,09/25 Pneumococcal Polysaccharide PPV23 (Pneumovax) 07/06/2022 SEASONAL INFLUENZA, PF, 6 M & Above, IM , (FLULAVAL or FLUZONE) 04/27/2020,05/25/2019,05/19/2018 Seasonal Influenza, Quadriva lent Hd (Fluzone [...] Telephone Encounter - Brenda Daniels DO - 07/02/2023 1:35 PM ESTSigned Prescriptions: Disp Refills Vitamin B-12 1000 MCG Oral Tablet (Cyanoco*90 Tab*1 Sig: TAKE 1 TABLET BY MOUTH EVERY DAY IN THE MORNING Authorizing Provider: BRENDA DANIELS * Telephone Encounter - Paz Forrest LPN - 07/02/2023 12:39 PM EST Pending Prescriptions: Disp Refills Vitamin B-12 1000 MCG Oral Tablet [Pharmac*90 Tab*1 Sig: TAKE 1 TABLET BY MOUTH EVERY DAY IN THE MORNING * Telephone Encounter - Paz Forrest LPN - 07/02/2023 12:38 PM EST Pending Prescriptions: Disp Refills Vitamin B-12 1000 MCG Oral Tablet (Cyanoc*90 Tab*1 Sig: TAKE 1 TABLET BY MOUTH EVERY DAY IN THE MORNING Last Visit: 04/09/2023 (in office), 04/03/2022 (telemedicine) Next Visit: 07/09/2023 Last date the medication was ordered: 12/28/2022 Patient Active Problem List Diagnosis Code OTHER Hypothyroidism E03.9 Takotsubo cardiomyopathy I51.81 Thrombocytopenia (HCC) D69.6 Leucocytosis D72.829 Hepatitis, autoimmune (HCC) K75.4 AML (acute myeloid leukemia) (HCC) C92.00 Anasarca R60.1 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) C92.02 Encounter for antineoplastic chemotherapy Z51.11 Anemia D64.9 Coagulopathy (HCC) D68.9 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) S98.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 Diet-controlled diabetes mellitus (HCC) E11.9 Major depressive disorder, single episode, moderate (HCC) F32.1 Dehydration E86.0 Chronic myeloid leukemia, BCR/ABL-positive, not having achieved remission ([facility]) C92.10 Chronic leukemia of unspecified cell type not having achieved remission ([facility]) C95.10 RASTA (generalized anxiety disorder) F41.1 Gastroesophageal reflux disease without esophagitis K21.9 Neutropenia (HCC) D70.9 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) Z89.412 Chemotherapy-induced neutropenia D70.1, T45.1X5A 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 Chronic diarrhea K52.9 Hypokalemia E87.6 Hypomagnesemia E83.42 Hypotension I95.9 Immunocompromised state ([facility]) D84.9 Leukemia cutis C94.80, L98.8 Transaminasemia R74.01 Vasovagal syncope R55 Weight loss R63.4 Labs: Lab Results Component Value Date/Time CREATININE - [facility] 0.7 06/18/2023 10:25 AM CREATININE - [facility] 0.9 08/31/2020 01:01 PM CREATININE, RANDOM URINE - [facility] 45 04/09/2023 12:11 PM CREATININE, RANDOM URINE - [facility] 62 08/15/2020 07:29 AM CREATININE-OUTSIDE LAB 1.80 (A) 04/01/2017 12:00 AM Lab Results Component Value Date/Time POTASSIUM - [facility] 4.6 06/18/2023 10:25 AM POTASSIUM - [facility] 4.0 08/31/2020 01:01 PM POTASSIUM-OUTSIDE LAB 4.1 04/01/2017 12:00 AM Lab Results Component Value Date/Time TSH - [facility] 0.48 12/10/2022 08:15 AM TSH - [facility] 3.02 08/31/2020 01:04 PM Lab Results Component Value Date/Time LDL CHOLESTEROL (CALCULATED) - [facility] 210 (H) 08/20/2018 08:48 AM LDL CHOLESTEROL (CALCULATED) - [facility] 109 05/18/2015 07:57 AM LDL CHOLESTEROL (DIRECT MEASURE) - [facility] 75 04/17/2021 09:30 AM LDL CHOLESTEROL (DIRECT MEASURE) - [facility] NOT APPLICABLE 08/20/2018 08:48 AM LDL CHOLESTEROL (DIRECT MEASURE) - [facility] NOT APPLICABLE 05/18/2015 07:57 AM LDL CHOLESTEROL (DIRECT MEASURE) - [facility] 131 (H) 10/24/2010 07:58 AM LDL CHOLESTEROL (DIRECT MEASURE) - [facility] 135 (H) 03/15/2009 07:44 AM Lab Results Component Value Date/Time ALT - [facility] 71 (H) 06/18/2023 10:25 AM ALT - [facility] 28 08/31/2020 01:01 PM ALT-OUTSIDE LAB 68 08/10/2016 12:00 AM Hemoglobin AIC Results: Lab Results Component Value Date/Time HEMOGLOBIN A1C - [facility] 4.6 12/10/2022 08:15 AM HEMOGLOBIN A1C - [facility] 4.6 05/28/2022 01:27 PM HEMOGLOBIN A1C - [facility] 4.3 12/04/2021 12:32 PM HEMOGLOBIN A1C - [facility] 4.7 08/15/2020 07:29 AM HEMOGLOBIN A1C - [facility] 5.0 12/14/2019 01:23 PM HEMOGLOBIN A1C - [facility] 5.0 03/02/2019 12:51 PM * Telephone Encounter - Jorge Luis Schwartz - 07/02/2023 5:01 AM ESTPending Prescriptions: Disp Refills Vitamin B-12 1000 MCG Oral Tablet [Pharmac*90 Tab*1 Sig: TAKE 1TABLET BY MOUTH EVERY DAY IN THE MORNING documented in this encounter Plan of Treatment Upcoming Encounters Date Type Department Care Team (Latest Contact Info) Description 07/09/2023 1:00 PM EST Office Visit Family Practice [facility] [place] [address] [place], [place] [address] Rayna Solares PA-C [address] [place], [place] [address] 07/16/2023 12:10 PM EST Laboratory Laboratory [facility] [place] [address] [place], [place] [phone] Patti, Lab [facility] [address] [place], [place] [address] 07/16/2023 1:15 PM EST Hem/Onc Treatment Hematology/Oncolog y Treatment, [place] 200 [facility], [place] [address] Patti, Chair 2 Hem Onc [facility] [address] [place], [place] [address] 07/17/2023 9:00 AM EST Office Visit Hematology/Oncolog y [facility] [place] [address] [place] [address] Corbin Nielson MD [address] [place] [address] 07/17/2023 9:30 AM EST Hem/Onc Treatment Hematology/Oncolog y Treatment, [place] 200 [facility] [place] [address] Patti, Chair 4 Hem Onc Scenery [address] [place] [address] 07/18/2023 11:45 AM EST Hem/Onc Treatment [facility] [place] [facility] [address] 07/19/2023 11:30 AM EST Hem/Onc Treatment Hematology/Oncolog y Treatment, [place] 200 [facility] [place] [address] Patti, Chair 9 Hem Onc [facility] 200 [facility] [place] [address] 08/12/2023 11:20 AM EST Hospital Encounter OR [facility], Operating Room [facility] [address] [place] [address] Stiven Ram, DO [address] [place] [address] 08/12/2023 11:20 AM EST - 08/12/2023 11:45 AM EST Surgery OR [facility], Operating Room [facility] [address] [place] [phone] Stiven Ram, DO [address] [place] [address] INJECTION SPINE LUMBAR OR [facility]CR[facility] 08/13/2023 9:30 AM EST Office Visit Hematology/Oncolog y [facility] [place] [address] [facility] [place] [address] Corbin Nielson MD [address] [place] [address] 11/06/2023 1:00 PM EDT Office Visit Family Practice [facility] [place] [address] [place] [address] Brenda Daniels, DO 200 [facility] [place] [address] Scheduled Procedures Name Priority Associated Diagnoses Date/Ti [...] the patient have Health Care Power of Human Resources Operations Coordinator? No Code Status History Code Status Date Activated Date Inactivated Comments Full Code 06/15/2016 5:56 PM 08/09/2016 8:19 PM This order reflects the patients wishes and were consensually agreed upon. Question Answer Comments Discussion of Advance Directives occurred with: Patient Does the patient have a Living Will? No Does the patient have Health Care Power of Human Resources Operations Coordinator? No Full Code 05/15/2016 3:18 AM 06/08/2016 6:42 PM This order reflects the patients wishes and were consensually agreed upon. Question Answer Comments Discussion of Advance Directives occurred with: Not Discussed Care Teams Cylinder Block Mechanic Relationship Specialty Start Date End Date Brenda Daniels DO [address] [place] [address] PCP - General Family Medicine 05/19/18 documented as of this encounter
--- OUTSIDE RECORDS SUMMARY | 2023-08-22 00:28 | External Medical Summary | Summary of Care ---
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) Encounter for antineoplastic chemotherapy Procedures IA DECITABINE INJECTION Corbin Nielson MD [address] [place] [address] Anc Hem/Onc [facility] DEPT CLOSED - 06/18/23 [address] [place] [address] Referral ID Status Reason Start Date Expiration Date V isits Requested Visits Authorized [id number] Authorized 07/05/2021 08/04/2099 99 99 Encounter Details Date Type Department Care Team (Latest Contact Info) Description 06/21/2023 1:00 PM EST Hem/Onc Treatment Hematology/Oncolog y Treatment, [place] [address] [place] [address] Patti, Chair 1 Hem Onc Scen[address] [place] [address] Acute myeloid leukemia not having achieved remission (HCC)*; 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 0 1 Active busPIRone HCl 5 MG Oral Tablet (Buspar)Indications :RASTA (generalized anxiety disorder) Takes 2 tabs in the morning, 1 at noon, 2 tabs with dinner 150 Tablet 0 2 Active Potassium Chloride ER 20 MEQ Oral [...] for Anxiety. 30 Tablet 3 2 Active Cyanocobalamin 1000 MCG Oral Tablet (Cyanocobalamin) Take 1 Tablet by mouth in the morning. 90 Tablet 1 3 Active Levothyroxine Sodium 150 MCG Oral Tablet [...] the evening. 120 Capsule 5 3 Active HYDROcodone-Acetami nophen 5-325 MG Oral Tablet Take 1 Tablet by mouth every 8 hours as needed for Pain, Mild. 15 Tablet 0 3 Active Metoprolol Succinate ER 25 MG Oral Tablet Extended Release 24 Hour (toPROL XL)Indications:Tako tsubo cardiomyopathy TAKE 1/2 TABLET DAILY 45 Tablet 3 3 Active Ondansetron 8 MG Oral Tablet DisintegratingIndic ations:Acute myeloid leukemia in remission (HCC) Place 1 Tablet on tongue every 8 hours as needed for Nausea. dissolve on tongue. 30 Tablet 2 3 Active documented as of this encounter (statuses as of 06/21/2023) Active Problems Problem Noted Date Diagnosed Date [...] as of this encounter (statuses as of 06/21/2023) Resolved Problems Problem Noted Date Diagnosed Date [...] 06/08/2016 07/31/2017 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 encounter 02/12/2012 04/27/[facility] use of ant icoagulant therapy 02/12/2012 04/27/2015 Overview: ICD-10 update of inactive term Other disorder of menstruati on and other abnormal bleeding from female genital tract 09/16/2007 04/27/2015 Uterine leiomyoma 09/16/2007 04/27/2015 documented as of this encounter (statuses as of 06/21/2023) Immunizations Name Administration Dates Next Due COVID-19 [...] Sign Reading Time Taken Comments Blood Pressure 112/72 06/21/2023 1:01 PM EST Pulse 76 06/21/2023 1:01 PM EST Temperature 36.4 C (97.6 F) 06/21/2023 1:01 PM ES T Respiratory Rate 18 06/21/2023 1:01 PM EST Oxygen Saturation 98% 06/21/2023 1:01 PM EST Inhaled Oxygen Concentration - - [...] as of this encounter Nursing Notes * Odette Borjas, KARLEE - 06/21/2023 3:18 PM EST Safety and Risk for Injury Patient will remain free from injury. Ensure appropriate safety devices are available. Provide and maintain safe environment. Functional status at today's visit: Fully active, [...] adverse side effects during treatment. Goals: Patient here for day 5 Dacogen. Possible barriers to meeting goals: IV pole and central line. Stability of the patient: Moderately stable - low risk of patient condition declining or worsening Summary regarding today's goals: Met: Patient received treatment without any issues. documented in this encounter Plan of Treatment Upcoming Encounters Date Type Department Care Team (Latest Contact Info) Description 07/09/2023 1:00 PM EST Office Visit [facility] [place] [address] [place] [address] Rayna Solares PA-C [address] [place] [address] 07/16/2023 12:10 PM EST Laboratory Laboratory [facility] [place] [address] [place] [phone] Patti, Lab [facility] 200 [facility] [place] [address] 07/16/2023 1:15 PM EST Hem/Onc Treatment Hematology/Oncolog y Treatment, [place] 200 [facility] [place] [address] Patti, Chair 2 Hem Onc [facility] [place] [address] 07/17/2023 9:00 AM EST Office Visit Hematology/Oncolog y [facility] [place] [address] [place] [place] [address] Corbin Nielson MD [address] [place] [address] 07/17/2023 9:30 AM EST Hem/Onc Treatment Hematology/Oncolog y Treatment, [place] 200 [facility] [place] [address] Patti, Chair 4 Hem Onc [address] [place] [address] 07/18/2023 11:45 AM EST Hem/Onc Treatment [facility] [place] [facility] [address] 07/19/2023 11:30 AM EST Hem/Onc Treatment Hematology/Oncolog y Treatment, [place] 200 [facility] [place] [address] Patti, Chair 9 Hem Onc [facility] 200 [facility] [place] [address] 08/12/2023 11:20 AM EST Hospital Encounter [facility], Operating Room [facility] [address] [place] [phone] Stiven Ram, DO [address] [place] [address] 08/12/2023 11:20 AM EST - 08/12/2023 11:45 AM EST Surgery OR [facility], Operating Room [facility] [address] [place] [phone] Stiven Ram, DO [address] [place] [phone] INJECTION SPINE LUMBAR OR [place] 08/13/2023 9:30 AM EST Office Visit Hematology/Oncolog y [facility] [place] [address] [place] [address] Corbin Nielson MD [address] [place] [address] 11/06/2023 1:00 PM EDT Office Visit Family Practice [facility] [place] [address] [place] [address] Joe Peng, DO [address] [place] [address] Scheduled Procedures Name Priority Associated Diagnoses Date/Ti [...] ONCE PRN Other, Hypersensitivity Reaction, Starting on Sat06/21/23 at 1301, Until 06/22/23 at 1300, For 24 hours EPINEPHrine 1 MG/ML inj 0.3 mg 0.3 mg, Intramuscular, ONCE PRN Other, Hypersensitivity Reaction or Anaphylaxis, Starting on Sat06/21/23 at 1301, Until 06/22/23 at 1300, For 24 hours hEParin 100 UNIT/ML Lock Flush inj 500 Units 500 Units (5 mL), IV Lock, PRN Other, IV Flush, Starting on Sat06/21/23 at 1301, Until 06/22/23 at 1300, For 24 hours, Do not flush if lock, PICC, or central line not in place; IV infusing or unable to flush. Given 06/21/2023 2:30 PM EST 500 Units Hydrocortisone Sod Suc (PF) (Solu-Cortef) inj 100 mg 100 mg, IV Push, ONCE PRN Other, Hypersensitivity Reaction, Starting on Sat06/21/23 at 1301, Until 06/22/23 at 1300, For 24 hours NSS infusion 500 mL, Intravenous, at 50 mL/hr, CONTINUOUS, Starting on Sat06/21/23 at 1415, Until 06/22/23 at 0014 Start Infusion 06/21/2023 1:08 PM EST 500 mL 50 mL/hr sodium chloride 0.9 % flush central line 10 mL 10 mL, IV Push, PRN Other, IV Flush, Starting on Sat06/21/23 at 1301, Until 06/22/23 at 1300, For 24 hours, Do not flush if lock, PICC, or central line not in place; IV infusing or unable to flush. Given 06/21/2023 2:30 PM EST 10 mL Inactive Administered Medications - up to 3 most recent administrations Medication Order MAR Action Action Date Dose Rate Site Decitabine (Dacogen) 25.6 mg in NSS 100 mL infusion 25.6 mg (16 mg/m2 1.6 m2 Order-specific BSA), IV Piggyback, ONCE, 1 dose, On Sat06/21/23 at 1445, Administer over 60 Minutes, CAUTION: CHEMOTHERAPY HANDLE WITH GLOVES ! Start Infusion 06/21/2023 1:12 PM EST 25.6 mg 100 mL/hr documented [...] the patient have Health Care Power of Paper Machine Operator? No Code Status History Code Status Date Activated Date Inactivated Comments Full Code 06/15/2016 5:56 PM 08/09/2016 8:19 PM This order reflects the patients wishes and were consensually agreed upon. Question Answer Comments Discussion of Advance Directives occurred with: Patient Does the patient have a Living Will? No Does the patient have Health Care Power of Paper Machine Operator? No Full Code 05/15/2016 3:18 AM 06/08/2016 6:42 PM This order reflects the patients wishes and were consensually agreed upon. Question Answer Comments Discussion of Advance Directives occurred with: Not Discussed Care Teams Coil Former Relationship Specialty Start Date End Date Joe Peng DO [address] [place] [address] PCP - General Family Medicine 05/19/18 documented as of this encounter
--- OUTSIDE RECORDS SUMMARY | 2023-08-22 00:28 | External Medical Summary | Summary of Care ---
Author Name Unknown Organization [facility] Address [address] [place] [address] Phone [phone] Care Team Providers Care Hatchery Worker Name Role Phone Joe Peng DO Primary Care Provider [phone] Reason for Visit * Reason Onset Date Comments Test Results Biopsy 06/25/2023 Encounter Details Date Type Department Care Team (Late st Contact Info) Description 06/25/2023 Telephone Dermatology [facility] [place] [address] [place] [address] Daiana Aleman PA-C [address] [place] [id number] Test Results Biopsy Allergies Active Allergy Reactions Criticality Noted Date Comments Amoxicillin Nausea/vomiting 11/14/2015 Penicillins Nausea/vomiting Low 08/12/2007 tolerated cephalosporins in past Other reaction(s): Nausea Only Other reaction(s): "makes me nervous", Nausea documented as of this encounter (statuses as of 06/25/2023) Medications Medication Sig Dispensed Refills Start Date [...] as of this encounter (statuses as of 06/25/2023) Active Problems Problem Noted Date Diagnosed Date [...] as of this encounter (statuses as of 06/25/2023) Resolved Problems Problem Noted Date Diagnosed Date [...] 07/31/2017 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 encounter 02/12/2012 04/27/2015 [facility] [employer] current use of ant icoagulant therapy 02/12/2012 04/27/2015 Overview: ICD-10 update of inactive term Other disorder of menstruati on and other abnormal bleeding from female genital tract 09/16/2007 04/27/2015 Uterine leiomyoma 09/16/2007 04/27/2015 documented as of this encounter (statuses as of 06/25/2023) Immunizations Name Administration Dates Next Due COVID-19 mRNA, LNP-s, No Pre serve, 2-Dose Series ([employer]) 05/08/2021,08/29/2020,08/08/2020 DTaP Dipth/Tet/Acell Pertussis (Infanrix), Peds 12/25/2017,10/30/2017,09/25/2017 [...] encounter Miscellaneous Notes * Telephone Encounter - Liliya Walker LPN - 06/25/2023 2:45 PM EST Called and spoke to Codi and gave her biopsy results to her. I told her that her results would be forwarded to the ordering physician. Liliya Walker LPN 06/25/2023 2:45 PM * Telephone Encounter - Liliya Walker LPN - 06/25/2023 2:45 PM EST ----- Message from Daiana Aleman PA-C sent at 06/25/2023 2:40 PM EST ----- Please let her know biopsy does not show leukemia cutis- it shows bruising. I will forward to ordering physician as well A. Skin, R upper arm, punch: Erythrocyte extravasation with sparse interstitial inflammatory infiltrate (see comment) Comment: The clinical images have been reviewed, and the patient's prior biopsy ([id number]) was reviewed in conjunction with the present specimen. The present biopsy reveals a sparse interstitial andperivascular infiltrate with prominent erythrocyte extravasation, lacking the dense atypical infiltrate noted in the patient's prior biopsy. These histopathologic findings are consistent with ecchymosis or purpura. This case was peer-reviewed. documented in this encounter Plan of Treatment Upcoming Encounters Date Type Department Care Team (Latest Contact Info) Description 07/09/2023 1:00 PM EST Office Visit Family [facility] Mindi Lopez [address] [place] [address] Rayna Solares PA-C [address] [place] [address] 07/16/2023 12:10 PM EST Laboratory [facility] [place] [address] [place], [place] [id number] Patti, Lab Scenery [address] [place], [place] [address] 07/16/2023 1:15 PM EST Hem/Onc Treatment Hematology/Oncolog y Treatment, [place] [address] [place] [address] Patti, Chair 2 Hem Onc Scenery [address] [place] [address] 07/17/2023 9:00 AM EST Office Visit Hematology/Oncolog y [facility] [place] [address] [place] [address] Corbin Nielson MD [address] [place] [address] 07/17/2023 9:30 AM EST Hem/Onc Treatment Hematology/Oncolog y Treatment, [place] [address] [facility] [place], [place] [address] Patti, Chair 4 Hem Onc Scenery [address] [place], [place] [address] 07/18/2023 11:45 AM EST Hem/Onc Treatment [facility] [place] [facility] [address] 07/19/2023 11:30 AM EST Hem/Onc Treatment Hematology/Oncolog y Treatment, [place] [address] [facility], [place] [address] Patti, Chair 9 Hem Onc Scenery [address] [place], [place] [address] 08/12/2023 11:20 AM EST Hospital Encounter [facility], Operating Room [facility] [address] [place] [phone] Stiven Ram DO [address] [place] [phone] 08/12/2023 11:20 AM EST - 08/12/2023 11:45 AM EST Surgery OR [facility], Operating Room [facility] [address] [place] [phone] Stiven Ram, DO [address] [place] [phone] INJECTION SPINE LUMBAR OR [facility] 08/13/2023 9:30 AM EST Office Visit Hematology/Oncolog y [facility] [address] [place] [address] Corbin Nielson MD [address] [place] [address] 11/06/2023 1:00 PM EDT Office Visit Family Practice [facility] [place] [address] [place] [address] Joe Peng, DO [address] [place] [address] Scheduled Procedures Name Priority Associated Diagnoses Date/Ti [...] the patient have Health Care Power of Plastic Printer? No Code Status History Code Status Date Activated Date Inactivated Comments Full Code 06/15/2016 5:56 PM 08/09/2016 8:19 PM This order reflects the patients wishes and were consensually agreed upon. Question Answer Comments Discussion of Advance Directives occurred with: Patient Does the patient have a Living Will? No Does the patient have Health Care Power of Plastic Printer? No Full Code 05/15/2016 3:18 AM 06/08/2016 6:42 PM This order reflects the patients wishes and were consensually agreed upon. Question Answer Comments Discussion of Advance Directives occurred with: Not Discussed Care Teams Hatchery Worker Relationship Specialty Start Date End Date Joe Peng DO [address] [place] [address] PCP - General Family Medicine 05/19/18 documented as of this encounter
--- OUTSIDE RECORDS SUMMARY | 2023-08-22 00:28 | External Medical Summary | Summary of Care ---
Author Name Unknown Organization [facility] Address [address] [place] [address] Phone [phone] Care Team Providers Care Chip Separator Name Role Phone Danish Joe Swartz DO Primary Care Provider [phone] Reason for Visit * Reason Comments Other Patient is here for punch biopsy on arms to evaluate for possible recurance of leukemia cutis. 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 Patient stated she comes here to hemo/onc for chemotherapy treatment. She said that it becomes very itchy and she has used benadryl spray and that takes the itch away immediately. Encounter Details Date Type Department Care Team (Late st Contact Info) Description 06/11/2023 12:40 PM EST [facility] [address] [place] [address] Daiana Aleman PA-C [address] [facility] [place] [phone] Dermatitis* Allergies Active Allergy Reactions Criticality Noted Date Comments Amoxicillin Nausea/vomiting 11/14/2015 Penicillins Nausea/vomiting Low 08/12/2007 tolerated cephalosporins in past Other reaction(s): Nausea Only Other reaction(s): "makes me nervous", Nausea documented as of this encounter (statuses as of 06/29/2023) Medications Medication Sig Dispensed Refills Start Date [...] as of this encounter (statuses as of 06/29/2023) Active Problems Problem Noted Date Diagnosed Date [...] as of this encounter (statuses as of 06/29/2023) Resolved Problems Problem Noted Date Diagnosed Date [...] 06/08/2016 07/31/2017 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 encounter 02/12/2012 04/27/2015 care home current use of ant icoagulant therapy 02/12/2012 04/27/2015 Overview: ICD-10 update of inactive term Other disorder of menstruati on and other abnormal bleeding from female genital tract 09/16/2007 04/27/2015 Uterine leiomyoma 09/16/2007 04/27/2015 documented as of this encounter (statuses as of 06/29/2023) Immunizations Name Administration Dates Next Due COVID-19 mRNA, LNP-s, No Pre serve, 2-Dose Series ([employer]) 05/08/2021,08/29/2020,08/08/2020 DTaP Dipth/Tet/Acell Pertussis (Infanrix), Peds 12/25/2017,10/30/2017,09/25/2017 [...] as of this encounter Progress Notes * Ivonne Lu MD - 06/29/2023 5:25 PM EST I have reviewed the case/photos and discussed the patient's management with the SUZANNE and agree with the note. Please refer to the documented findings and plan of care. This patient's visit today consisted of an evaluation and procedure. I was available for in person consultation during and after the visit Ivonne Lu MD 06/29/2023 5:25 PM * Daiana Aleman PA-C - 06/11/2023 12:57 PM EST SUBJECTIVE: Pt is referred to us by Emelyn Richard in heme/onc for biopsy to r/o leukemia cutis. See HPI from heme/onc note 06/10/2023 Date Last Appointment: 05/25/2020 (in office), Visit date not found (telemedicine) OBJECTIVE: BUE and BLE- generalized ecchymosis, approx 3-5 pink papules scattered. Biopsy performedto lesion on R elbow. ASSESSMENT/PLAN: History of leukemia cutis in 2019, sent by heme/onc to r/o leukemia cutis. Punch biopsy was advised. Benefits of establish/confirming diagnosis and risks of scarring, recurrence, need for further treatment were explained and after verbal consent patient chose to proceed with the procedure. Time out called. Patient identified, procedure verified, site identified and verified. Patient and staff present in agreement. Area prepped with alcohol. Anesthesia with 0.5% lidocaine was administered, and a 4mm punch biopsy was performed. Hemostasis was obtained with gelfoam and pressure. The area was covered with a pressure dressing, and post-op instructions were given. Patienttolerated the procedure well without complication and will be contacted with the pathology. Follow-up: per path 06/11/2023 9:29 PM Daiana Aleman PA-C documented in this encounter Nursing Notes * Liliya Walker LPN - 06/11/2023 12:16 PM EST Patient identified by name and date of . Do you have any concerns about pain management for today's visit? No Living Will or Advance Directive for Health Care as noted on problem list. [employer] is a way you can talk to your provider online through e-mail. Would you like to sign up? I can activate it for you? ALREADY ACTIVE Chief Complaint Patient presents with Other Patient is here for punch biopsy on arms to evaluate for possible recurance of leukemia cutis. 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 Patient stated she comes here to hemo/onc for chemotherapy treatment. She said that it becomes very itchy and she has used benadryl spray and that takes the itch away immediately. documented in this encounter Miscellaneous Notes * Result Encounter Note - Daiana Aleman PA-C - 06/25/2023 2:42 PM EST Biopsy r/o leukemia cutis A. Skin, R upper arm, punch: Erythrocyte extravasation with sparse interstitial inflammatory infiltrate (see comment) Comment: The clinical images have been reviewed, and the patient's prior biopsy ([id number]) was reviewed in conjunction with the present specimen. The present biopsy reveals a sparse interstitial andperivascular infiltrate with prominent erythrocyte extravasation, lacking the dense atypical infiltrate noted in the patient's prior biopsy. These histopathologic findings are consistent with ecchymosis or purpura. This case was peer-reviewed. * Result Encounter Note - Daiana Aleman PA-C - 06/25/2023 2:40 PM EST Please let her know biopsy does not show leukemia cutis- it shows bruising. I will forward to ordering physician as well A. Skin, R upper arm, punch: Erythrocyte extravasation with sparse interstitial inflammatory infiltrate (see comment) Comment: The clinical images have been reviewed, and the patient's prior biopsy ([id number]) was reviewed in conjunction with the present specimen. The present biopsy reveals a sparse interstitial andperivascular infiltrate with prominent erythrocyte extravasation, lacking the dense atypical infiltrate noted in the patient's prior biopsy. These histopathologic findings are consistent with ecchymosis or purpura. This case was peer-reviewed. * Result Encounter Note - Daiana Aleman PA-C - 06/24/2023 1:28 PM EST Negative for leukemia cutis correct? documented in this encounter Plan of Treatment Upcoming Encounters Date Type Department Care Team (Latest Contact Info) Description 07/09/2023 1:00 PM EST Office Visit Family Practice [facility] [place] [address] [place] [address] Rayna Solares PA-C [address] [place] [address] 07/16/2023 12:10 PM EST Laboratory Laboratory [facility] [place] [address] [place] [id number] [place], Lab Scene [address] [place] [address] 07/16/2023 1:15 PM EST Hem/Onc Treatment Hematology/Oncolog y Treatment, [place] [address] [facility] [place] [address] Patti, Chair 2 Hem Onc Scenery [address] [place], [place] [address] 07/17/2023 9:00 AM EST Office Visit Hematology/Oncolog y [facility] [place] [address] [place], [place] [address] Corbin Nielson MD [address] [place] [address] 07/17/2023 9:30 AM EST Hem/Onc Treatment Hematology/Oncolog y Treatment, [place] [address] [facility] [place] [address] Patti, Chair 4 Hem Onc Scenery [address] [place] [address] 07/18/2023 11:45 AM EST Hem/Onc Treatment Hematology/Oncolog y Treatment, [place] [address] [facility] [place] [address] 07/19/2023 11:30 AM EST Hem/Onc Treatment Hematology/Oncolog y Treatment, [place] [address] [facility] [place] [address] Patti, Chair 9 Hem Onc Scenery [address] [place] [address] 08/12/2023 11:20 AM EST Hospital Encounter [facility], Operating Room [facility] [address] [place] [phone] Stiven Ram, [address] [place] [phone] 08/12/2023 11:20 AM EST - 08/12/2023 11:45 AM EST Surgery OR [facility], Operating Room [facility] [address] [place] [phone] Stiven Ram, DO [address] [place] [id number] INJECTION SPINE LUMBAR OR [facility] 08/13/2023 9:30 AM EST Office Visit Hematology/Oncolog y [facility] [address] [place] [address] Corbin Nielson MD [address] [place] [address] 11/06/2023 1:00 PM EDT Office Visit Family Practice [facility] [address] [facility] [place] [address] Joe Peng, DO [address] [place] [address] Scheduled Procedures Name Priority Associated Diagnoses Date/Ti [...] Procedure Name Priority Date/Time Associated Diagnosis Comments SURGICAL PATHOLOGY Routine 06/11/2023 1: 01 PM EST Dermatitis DERM IMAGE (SITE) Routine 06/11/2023 Dermatitis documented in this encounter Results * SURGICAL PATHOLOGY (06/11/2023 1:01 PM EST) Final Diagnosis A. Skin, R upper arm, punch: Erythrocyte extravasation with sparse interstitial inflammatory infiltrate (see comment) Comment: The clinical images have been reviewed, and the patient's prior biopsy ([id number]) was reviewed in conjunction with the present specimen. The present biopsy reveals a sparse interstitial and perivascular infiltrate with prominent erythrocyte extravasation, lacking the dense atypical infiltrate noted in the patient's prior biopsy. These histopathologic findings are consistent with ecchymosis or purpura. This case was peer-reviewed. 06/24/2023 8:52 AM EST LABORATORY [facility] Clinical History See Order Comments 06/24/2023 8:52 AM EST LABORATORY [facility] Order Comments Approx 3-5 pink keratotic papules with significant surrounding ecchymosis to BUE and BLE. History of leukemia cutis in 2019, sent by heme/onc to r/o leukemia cutis. 4mm punch. 06/24/2023 8:52 AM EST LABORATORY [facility] Gross Description A. Skin. Received in formalin with a container labeled with "Codi Espinoza Brittany", "[id number]", "1955" and " right upper arm". Received is a 0.4 x 0.4 cm skin punch. The skin surface is jackson to block firm and shiny. The underlying tissue is inked. The specimen is wrapped and submitted bisected in cassette A1. Gross By: MR 06/24/2023 8:52 AM EST LABORATORY [facility] Microscopic Description Hematoxylin and eosin stained sections reveal a relatively normal thickness epidermis with slight maturation disorder. The dermis is marked by prominent erythrocyte extravasation with a sparse inflammatory infiltrate consisting of histiocytes and scattered neutrophils. CD68 highlights a number of the background histiocytes. Few scattered cells are positive for lysozyme. 06/24/2023 8:52 AM EST LABORATORY [facility] Sign Out Location Pathologist sign out performed at [facility] ([facility]), [address] [place] [id number] 06/24/2023 8:52 AM EST LABORATORY [facility] Photographic images and diagrams represent becker findings in this case; they are not intended to replace a complete review of the final diagnostic report. The following statement applies to Flow Cytometry, Histology, In situ Hybridization Assays and Molecular Genetics. This test was developed and performed at [facility] and its performance characteristics determined by [employer]. It has not been cleared or approved by the U.S. Food and Drug Administration. The FDA has determined that such clearance or approval is not necessary. This test is used for clinical purposes. It should not be regarded as investigational or for research. Special stains, including histochemical stains, and studies using immunologic and ELIZABETH methodology (where applicable) are performed with appropriate positive and negative control reactions. 06/24/2023 8:52 AM EST LABORATORY [facility] Tissue Skin structure / Unknown 06/11/2023 1:01 PM EST 06/11/2023 1:01 PM EST Comment:Approx 3-5 pink javier totic papules with significant surrounding ecchymosis to BUE and BLE. History of leukemia cutis in 2019, sent by heme/onc to r/o leukemia cutis. 4mm punch. Daiana Aleman PA-C LAB PATHOLOGY O [facility] LABORATORY [facility] [address] [place] [address] * DERM IMAGE (SITE) (06/11/2023) 06/11/2023 Daiana Aleman PA-C DIGITAL PHOTOGR APHY documented in this encounter Visit Diagnoses Diagnosis Dermatitis- Primary Contact dermatitis and other eczema, due to unspecified cause Lumbar radiculopathy Thoracic or lumbosacral neuritis or [...] the patient have Health Care Power of Measurement Coordinator? No Code Status History Code Status Date Activated Date Inactivated Comments Full Code 06/15/2016 5:56 PM 08/09/2016 8:19 PM This order reflects the patients wishes and were consensually agreed upon. Question Answer Comments Discussion of Advance Directives occurred with: Patient Does the patient have a Living Will? No Does the patient have Health Care Power of Measurement Coordinator? No Full Code 05/15/2016 3:18 AM 06/08/2016 6:42 PM This order reflects the patients wishes and were consensually agreed upon. Question Answer Comments Discussion of Advance Directives occurred with: Not Discussed Care Teams Chip Separator Relationship Specialty Start Date End Date Joe Peng DO [address] [place] [address] PCP - General Family Medicine 05/19/18 documented as of this encounter
--- OUTSIDE RECORDS SUMMARY | 2023-08-22 00:28 | External Medical Summary | Summary of Care ---
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) Encounter for antineoplastic chemotherapy Procedures MT DECITABINE INJECTION Corbin Nielson MD [address] [place] [address] Anc Hem/Onc Natalee Armstrong DEPT CLOSED - 06/18/23 [address] [place] [phone] Referral ID Status Reason Start Date Expiration Date V isits Requested Visits Authorized [id number] Authorized 07/05/2021 08/04/2099 99 99 Encounter Details Date Type Department Care Team (Latest Contact Info) Description 06/18/2023 11:30 AM EST Hem/Onc Treatment Hematology/Oncolog y Treatment, [place] [address] [place] [address] Patti, Chair 1 Hem Onc Scenery [address] [place] [address] Acute myeloid leukemia not having achieved remission (HCC)*; 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); Encounter for antineoplastic chemotherapy Allergies Active Allergy Reactions Criticality Noted Date Comments Amoxicillin Nausea/vomiting 11/14/2015 Penicillins Nausea/vomiting Low 08/12/2007 tolerated cephalosporins in past Other reaction(s): Nausea Only Other reaction(s): "makes me nervous", Nausea documented as of this encounter (statuses as of 06/18/2023) Medications Medication Sig Dispensed Refills Start Date [...] as of this encounter (statuses as of 06/18/2023) Active Problems Problem Noted Date Diagnosed Date [...] as of this encounter (statuses as of 06/18/2023) Resolved Problems Problem Noted Date Diagnosed Date [...] as of this encounter (statuses as of 06/18/2023) Immunizations Name Administration Dates Next Due COVID-19 [...] Sign Reading Time Taken Comments Blood Pressure 117/74 06/18/2023 12:23 PM EST Pulse 79 06/18/2023 12:23 PM EST Temperature 36.8 C (98.3 F) 06/18/2023 12:[address] Respiratory Rate 18 06/18/2023 12:23 PM EST Oxygen Saturation - - Inhaled Oxygen Concentration - - Weight 50.1 kg (110 lb 6.4 oz) 06/18/2023 12:23 PM EST Height - - Body Mass Index 17.55 04/09/2023 9:25 AM EDT documented in this [...] Nursing Notes * Nancy Agosto, KARLEE - 06/18/2023 3:58 PM EST Functional status at today's visit: [...] No coverage. * Nancy Agosto RN - 06/18/2023 12:09 PM EST Chair 4 Chemo agents Dacogen D1 Appetite stable Nausea/Vomiting stable; pt continues to use Zofran PRN. Pt took Zofran at home this morning prior to appt. Diarrhea yes, but managing with Benefiber gummies, per GI recommendation Constipation no Mucositis no Fatigue stable Bleeding no Infection no Rash no Numbness tingling no Pain no Radiation n/a ABN Labs LFTs slightly elevated; reviewed with Dr. Nielson and olinda to proceed with treatment as ordered Alt in Tx: no Return in 1 day VAD accessed; NSS infusing. Safety and Risk for Injury Patient will remain free from injury. Ensure appropriate safety devices are available. Provide and maintain safe environment. documented in this encounter Plan of Treatment Upcoming Encounters Date Type Department Care Team (Latest Contact Info) Description 06/19/2023 11:30 AM EST Hem/Onc Treatment Hematology/Oncology Treatment, [address] [place] [address] Patti, Chair 5 Hem On[address] [place] [address] 06/20/2023 1:00 PM EST Hem/Onc Treatment Hematology/Oncology Treatment, [address] [place] [address] 06/21/2023 1:00 PM EST Hem/Onc Treatment Hematology/Oncology Treatment, [place] [address] [place], [place] [address] Patti, Chair 1 Hem Onc Scenery [address] [place] [address] 07/09/2023 1:00 PM EST Office Visit [facility] [place] [address] [place] [address] Rayna Solares PA-C [address] [place] [address] 07/17/2023 9:00 AM EST Office Visit Hematology/Oncology [facility] [place] [address] [place] [address] Corbin Nielson MD [address] [place] [address] 08/12/2023 11:20 AM EST Hospital Encounter [facility], Operating Room [facility] [address] [place] [phone] Stiven Ram, [address] [place] [id number] 08/12/2023 11:20 AM EST - 08/12/2023 11:45 AM EST Surgery OR [facility], Operating Room [facility] [address] [place] [phone] Stiven Ram, [address] [place] [phone] INJECTION SPINE LUMBAR OR SACRAL 08/13/2023 9:30 AM EST Office Visit Hematology/Oncology [facility] [place] [address] [place] [address] Corbin Nielson MD [address] [place] [address] 11/06/2023 1:00 PM EDT Office Visit Family Practice [place] [facility] [place] [address] [facility] [place] [address] Joe Peng, 200 [facility] [place] [address] Scheduled Procedures Name Priority Associated Diagnoses Date/Ti me INJECTION SPINE LUMBAR OR SACRAL Lumbar radiculopathy 08/12/2023 11:20 AM EST COLONOSCOPY FLEXIBLE PROXIMAL DIAGNOSTIC Recall History of colon polyps Health Maintenance Due Date Last Done Comments Zoster Vaccines (1 of 2) 01/03/1975 Hepatitis B (1 of 3 - Risk 3-dose series) 2016 Diabetic Eye Exam 11/25/2019 11/24/2018 Diabetic Foot Exam 01/10/2022 01/10/2021, 1 , 05/19/2018 COVID-19 Vaccine ( season) 2023 05/08/2021, 08/29/2020, 08/08/2020 HbA1c 06/12/2023 12/10/2022, 05/06, 12/04/2021, Additional history exists Depression Screening 06/19/2023 06/19/2022 TSH 12/11/2023 12/10/2022, 0509/2021, 08/31/2020, Additional history exists Mammogram 03/20/2024 03/20/2023, 02/03, 02/21/2022, Additional history exists Albumin/Creatinine Ratio 04/09/2024 023, 12/04/2021, 08/15/2020, Additional history exists GFR 06/18/2024 06/18/2023, 1102/2023, 06/03/2023, Additional history exists COLONOSCOPY-EVERY 3 YRS AGES 18-100 05/24/2025 05/24/2022, 05/24/2022, 05/18/2019, Additional history exists Lipid Panel 04/17/2026 04/17/2021, 08/05, 05/18/2015, Additional history exists DTaP,Tdap,and Td Vaccines (7 - Td or Tdap) 12/26/2027 12/25/2017, 10/30/2017, 09/30/2017, Additional history exists DXA Scan 01/23/2030 01/23/2023, 11/04/2018 Pap Smear Discontinued 08/13/2019, 08/2013, 03/05/2014, Additional [...] ONCE PRN Other, Hypersensitivity Reaction, Starting on Sat06/18/23 at 1208, Until Sat06/19/23 at 1207, For 24 hours EPINEPHrine 1 MG/ML inj 0.3 mg 0.3 mg, Intramuscular, ONCE PRN Other, Hypersensitivity Reaction or Anaphylaxis, Starting on Sat06/18/23 at 1208, Until Sat06/19/23 at 1207, For 24 hours hEParin 100 UNIT/ML Lock Flush inj 500 Units 500 Units (5 mL), IV Lock, PRN Other, IV Flush, Starting on Sat06/18/23 at 1208, Until Sat06/19/23 at 1207, For 24 hours, Do not flush if lock, PICC, or central line not in place; IV infusing or unable to flush. Given 06/18/2023 1:46 PM EST 500 Units Hydrocortisone Sod Suc (PF) (Solu-Cortef) inj 100 mg 100 mg, IV Push, ONCE PRN Other, Hypersensitivity Reaction, Starting on Sat06/18/23 at 1208, Until Sat06/19/23 at 1207, For 24 hours NSS infusion 500 mL, Intravenous, at 50 mL/hr, CONTINUOUS, Starting on Sat06/18/23 at 1315, Until Sat06/18/23 at 2314 Start Infusion 06/18/2023 11:46 AM EST 500 mL 50 mL/hr sodium chloride 0.9 % flush central line 10 mL 10 mL, IV Push, PRN Other, IV Flush, Starting on Sat06/18/23 at 1208, Until Sat06/19/23 at 1207, For 24 hours, Do not flush if lock, PICC, or central line not in place; IV infusing or unable to flush. Given 06/18/2023 1:46 PM EST 10 mL Inactive Administered Medications - up to 3 most recent administrations Medication Order MAR Action Action Date Dose Rate Site Decitabine (Dacogen) 25.6 mg in NSS 100 mL infusion 25.6 mg (16 mg/m2 1.6 m2 Order-specific BSA), IV Piggyback, ONCE, 1 dose, On Sat06/18/23 at 1345, Administer over 60 Minutes, CAUTION: CHEMOTHERAPY HANDLE WITH GLOVES ! Start Infusion 06/18/2023 12:42 PM EST 25.6 mg 100 mL/hr documented [...] the patient have Health Care Power of Credentialing Specialist? No Code Status History Code Status Date Activated Date Inactivated Comments Full Code 06/15/2016 5:56 PM 08/09/2016 8:19 PM This order reflects the patients wishes and were consensually agreed upon. Question Answer Comments Discussion of Advance Directives occurred with: Patient Does the patient have a Living Will? No Does the patient have Health Care Power of Credentialing Specialist? No Full Code 05/15/2016 3:18 AM 06/08/2016 6:42 PM This order reflects the patients wishes and were consensually agreed upon. Question Answer Comments Discussion of Advance Directives occurred with: Not Discussed Care Teams Projector Booth Operator Relationship Specialty Start Date End Date Joe Peng DO [address] [place] [address] PCP - General Family Medicine 05/19/18 documented as of this encounter
--- OUTSIDE RECORDS SUMMARY | 2023-08-22 00:28 | External Medical Summary | Summary of Care ---
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) Encounter for antineoplastic chemotherapy Procedures MA DECITABINE INJECTION Corbin Nielson MD 200 [facility] [place] [address] Anc Hem/Onc Natalee Armstrong DEPT CLOSED - 06/18/23 [address] [place] [address] Referral ID Status Reason Start Date Expiration Date V isits Requested Visits Authorized [id number] Authorized 07/05/2021 08/04/2099 99 99 Encounter Details Date Type Department Care Team (Latest Contact Info) Description 06/20/2023 1:00 PM EST Hem/Onc Treatment Hematology/Oncolog y Treatment, [place] [address] [place] [address] Acute myeloid leukemia not having achieved remission (HCC)*; 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); Encounter for antineoplastic chemotherapy Allergies Active Allergy Reactions Criticality Noted Date Comments Amoxicillin Nausea/vomiting 11/14/2015 Penicillins Nausea/vomiting Low 08/12/2007 tolerated cephalosporins in past Other reaction(s): Nausea Only Other reaction(s): "makes me nervous", Nausea documented as of this encounter (statuses as of 06/20/2023) Medications Medication Sig Dispensed Refills Start Date [...] as of this encounter (statuses as of 06/20/2023) Active Problems Problem Noted Date Diagnosed Date [...] as of this encounter (statuses as of 06/20/2023) Resolved Problems Problem Noted Date Diagnosed Date [...] 06/08/2016 07/31/2017 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 encounter 02/12/2012 04/27/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 current use of ant icoagulant therapy 02/12/2012 04/27/2015 Overview: ICD-10 update of inactive term Other disorder of menstruati on and other abnormal bleeding from female genital tract 09/16/2007 04/27/2015 Uterine leiomyoma 09/16/2007 04/27/2015 documented as of this encounter (statuses as of 06/20/2023) Immunizations Name Administration Dates Next Due COVID-19 [...] Sign Reading Time Taken Comments Blood Pressure 107/66 06/20/2023 1:29 PM EST Pulse 74 06/20/2023 1:29 PM EST Temperature 36.5 C (97.7 F) 06/20/2023 1:29 PM ES T Respiratory Rate 18 06/20/2023 1:29 PM EST Oxygen Saturation 99% 06/20/2023 1:29 PM EST Inhaled Oxygen Concentration - - [...] Nursing Notes * Leeann Roche RN - 06/20/2023 4:01 PM EST Chair 9 Pt arrives for day 3 dacogen. She states she's doing well now, felt a little "foggy" this morning for about 2 hours. She denies any other complaints. VAD accessed without difficulty, good blood return noted, flushed with NSS and fluids infusing. Safety and Risk for Injury Patient will remain free from injury. Ensure appropriate safety devices are available. Provide and maintain safe environment. Functional status at today's visit: Restricted in [...] barriers to meeting goals: ambulation with IV Pole Stability of the patient: Moderately stable - low risk of patient condition declining or worsening Summary regarding today's goals: Met: Pt remained free of injury during treatment Patient tolerated treatment well and was discharged in stable condition. Coverage by Sarah Francis RN. documented in this encounter Plan of Treatment Upcoming Encounters Date Type Department Care Team (Latest Contact Info) Description 06/21/2023 1:00 PM EST Hem/Onc Treatment Hematology/[address], [address] [address] Patti, Chair 1 Hem On[address] [place] [address] 07/09/2023 1:00 PM EST Office Visit Family Practice [address] [place] [address] Rayna Solares PA-C [address] [place] [address] [place] [address] 07/16/2023 12:10 PM EST Laboratory Laboratory [facility] [address] [place] [phone] Patti, Lab [address] [facility] [place] [address] 07/16/2023 1:15 PM EST Hem/Onc Treatment Hematology/Oncolog [address], [address] [address] Patti, Chair 2 Hem Onc [address] [place] [address] 07/17/2023 9:00 AM EST Office Visit Hematology/Oncolog y [facility] [place] [address] [place], [place] [address] Corbin Nielson MD [address] [place] [address] 07/17/2023 9:30 AM EST Hem/Onc Treatment Hematology/Oncolog y Treatment, [place] 200 [facility] [place], [place] [address] Patti, Chair 4 Hem Onc Scenery [address] [place], [place] [address] 07/18/2023 11:45 AM EST Hem/Onc Treatment Hematology/Oncolog y Treatment, [place] 200 [facility], [place] [address] 07/19/2023 11:30 AM EST Hem/Onc Treatment Hematology/Oncolog y Treatment, [address], [place] [address] Patti, Chair 9 Hem Onc Scenery [address] [place], [place] [address] 08/12/2023 11:20 AM EST Hospital Encounter OR [facility], Operating Room [facility] [address] [place] [phone] Stiven Ram, [address] [place] [phone] 08/12/2023 11:20 AM EST - 08/12/2023 11:45 AM EST Surgery OR [facility], Operating Room [facility] [address] [place] [phone] Stiven Ram, DO [address] [place] [phone] INJECTION SPINE LUMBAR OR SACRAL 08/13/2023 9:30 AM EST Office Visit Hematology/Oncolog y Scenery Patti [place] [address] [place], [place] [address] Corbin Nielson MD [address] [place] [address] 11/06/2023 1:00 PM EDT Office Visit Family Practice [facility] 200 [facility] [place] [address] Joe Peng DO 200 [facility] [place] [address] Scheduled Procedures Name Priority Associated Diagnoses Date/Ti [...] PRN Other, Hypersensitivity Reaction, Starting on Verena 06/20/23 at 1343, Until Sat06/21/23 at 1342, For 24 hours EPINEPHrine 1 MG/ML inj 0.3 mg 0.3 mg, Intramuscular, ONCE PRN Other, Hypersensitivity Reaction or Anaphylaxis, Starting on Verena 06/20/23 at 1343, Until Sat06/21/23 at 1342, For 24 hours hEParin 100 UNIT/ML Lock Flush inj 500 Units 500 Units (5 mL), IV Lock, PRN Other, IV Flush, Starting on Verena 06/20/23 at 1343, Until Sat06/21/23 at 1342, For 24 hours, Do not flush if lock, PICC, or central line not in place; IV infusing or unable to flush. Given 06/20/2023 2:50 PM EST 500 Units Hydrocortisone Sod Suc (PF) (Solu-Cortef) inj 100 mg 100 mg, IV Push, ONCE PRN Other, Hypersensitivity Reaction, Starting on Verena 06/20/23 at 1343, Until Sat06/21/23 at 1342, For 24 hours NSS infusion 500 mL, Intravenous, at 50 mL/hr, CONTINUOUS, Starting on Verena 06/20/23 at 1445, Until Sat06/21/23 at 0044 Start Infusion 06/20/2023 1:35 PM EST 500 mL 50 mL/hr sodium chloride 0.9 % flush central line 10 mL 10 mL, IV Push, PRN Other, IV Flush, Starting on Verena 06/20/23 at 1343, Until Sat06/21/23 at 1342, For 24 hours, Do not flush if lock, PICC, or central line not in place; IV infusing or unable to flush. Given 06/20/2023 2:49 PM EST 10 mL Inactive Administered Medications - up to 3 most recent administrations Medication Order MAR Action Action Date Dose Rate Site Decitabine (Dacogen) 25.6 mg in NSS 100 mL infusion 25.6 mg (16 mg/m2 1.6 m2 Order-specific BSA), IV Piggyback, ONCE, 1 dose, On Verena 06/20/23 at 1515, Administer over 60 Minutes, CAUTION: CHEMOTHERAPY HANDLE WITH GLOVES ! Start Infusion 06/20/2023 1:47 PM EST 25.6 mg 100 mL/hr ondansetron (Zofran) tab 8 mg 8 mg, Oral, ONCE, On Verena 06/20/23 at 1445, For 1 dose Given By 06/20/2023 7:30 AM EST 8 mg documented in this [...] the patient have Health Care Power of Regional Forester? No Code Status History Code Status Date Activated Date Inactivated Comments Full Code 06/15/2016 5:56 PM 08/09/2016 8:19 PM This order reflects the patients wishes and were consensually agreed upon. Question Answer Comments Discussion of Advance Directives occurred with: Patient Does the patient have a Living Will? No Does the patient have Health Care Power of Regional Forester? No Full Code 05/15/2016 3:18 AM 06/08/2016 6:42 PM This order reflects the patients wishes and were consensually agreed upon. Question Answer Comments Discussion of Advance Directives occurred with: Not Discussed Care Teams Soliciting Freight Agent Relationship Specialty Start Date End Date Joe Peng DO [address] [place] [address] PCP - General Family Medicine 05/19/18 documented as of this encounter
--- OUTSIDE RECORDS SUMMARY | 2023-08-22 00:28 | External Medical Summary | Summary of Care ---
Author Name Unknown Organization [facility] Address [address] [place] [address] Phone [phone] Care Team Providers Care Automotive General Sales Manager Name Role Phone Joe Peng DO Primary Care Provider [phone] Reason for Visit * Reason Onset Date Comments Scheduling 06/25/2023 Encounter Details Date Type Department Care Team (Late st Contact Info) Description 06/25/2023 Telephone Hematology/Oncology, [facility] [address] [place], [place] [phone] Emelyn Richard CRNP [address], [place] [phone] Scheduling Allergies Active Allergy Reactions Criticality Noted Date [...] encounter Miscellaneous Notes * Telephone Encounter - Jeanine Mendoza OSA - 06/25/2023 3:39 PM EST Called patient to schedule Bone Marrow Biopsy . No answer. Left message for patient to return call. documented in this encounter Plan of Treatment Upcoming Encounters Date Type Department Care Team (Latest Contact Info) Description 07/09/2023 1:00 PM EST Office Visit Family Practice [facility] [place] [address] [place] [address] Rayna Solares PA-C [facility] [address] [place] [address] 07/16/2023 12:10 PM EST Laboratory Laboratory [facility] [place] [address] [place] [phone] Patti, Lab [facility] [address] [place] [address] 07/16/2023 1:15 PM EST Hem/Onc Treatment Hematology/Oncolog y Treatment, [place] [address] [place] [address] Patti, Chair 2 Hem Onc [place] [address] [place] [address] 07/17/2023 9:00 AM EST Office Visit Hematology/Oncolog y [facility] [place] [address] [place] [address] Corbin Nielson MD [address] [place] [address] 07/17/2023 9:30 AM EST Hem/Onc Treatment Hematology/Oncolog y Treatment, [place] 200 [facility], [place] [address] Patti, Chair 4 Hem Onc Scenery [address] [place] [address] 07/18/2023 11:45 AM EST Hem/Onc Treatment Hematology/Oncolog y Treatment, [place] 200 [facility], [place] [address] 07/19/2023 11:30 AM EST Hem/Onc Treatment Hematology/Oncolog y Treatment, [place] 200 [facility], [place] [address] Patti, Chair 9 Hem Onc Scenery [address] [place] [address] 08/12/2023 11:20 AM EST Hospital Encounter OR [facility], Operating Room [facility] [address] [place] [phone] Stiven Ram, DO [address] [place] [address] 08/12/2023 11:20 AM EST - 08/12/2023 11:45 AM EST Surgery OR [facility], Operating Room [facility] [address] [place] [phone] Stiven Ram, DO [address] [place] [phone] INJECTION SPINE LUMBAR OR SACRAL 08/13/2023 9:30 AM EST Office Visit [facility] [place] [address] [place] [address] Corbin Nielson MD [address] [place] [address] 11/06/2023 1:00 PM EDT Office Visit Family Practice [facility] P[place] [address] [place] [address] Joe Peng, DO [address] [place] [address] Scheduled Procedures Name Priority Associated Diagnoses Date/Ti [...] Additional history exists DXA Scan 01/23/2030 01/23/2023, 062 08/2022, 11/04/2018, Additional history exists Pap Smear [...] the patient have Health Care Power of [employer] Court [employer] Appeals Law Clerk? No Code Status History Code Status Date Activated Date Inactivated Comments Full Code 06/15/2016 5:56 PM 08/09/2016 8:19 PM This order reflects the patients wishes and were consensually agreed upon. Question Answer Comments Discussion of Advance Directives occurred with: Patient Does the patient have a Living Will? No Does the patient have Health Care Power of Federal Court Of Appeals Law Clerk? No Full Code 05/15/2016 3:18 AM 06/08/2016 6:42 PM This order reflects the patients wishes and were consensually agreed upon. Question Answer Comments Discussion of Advance Directives occurred with: Not Discussed Care Teams Automotive General Sales Manager Relationship Specialty Start Date End Date Joe Peng DO [address] [place] [address] PCP - General Family Medicine 05/19/18 documented as of this encounter
--- OUTSIDE RECORDS SUMMARY | 2023-08-22 00:28 | External Medical Summary | Summary of Care ---
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 Patient was then informed that this was a telephone call only visit. The patient agreed to participate. Visit Disposition: Routine follow-up Total call duration was 10 minutes. CC: chronic diarrhea HPI: 68 year old female developed abnormal LFT's after pneumonia in July 2015. She has had progressive nausea and postprandial pain. She developed worsening jaundice in mid December. She has had a lowplatelet count since 2010, but it has decreased significantly in December. Serologic tests for viral hepatitis, autoimmune hepatitis and PBC were negative, as were tests for celiac disease and syphilis. MRCP was unremarkable. Transjugular liver biopsy on 12/28/15 was nonspecific, without clear evidence of bile duct abnormalities. There was mild portal inflammation and mild steatosis, with mild portal and periportal fibrosis as well as sinusoidal dilation. She was admitted to [facility] on 12/30/15 due to wor sening fatigue and nausea. She was started empirically on corticosteroids and ursodiol. She had significant improvement in liver chemistries and symptoms. TODAY: Was having problems with loose stool. Now using fiber gummies a few times a week and doing much better. 01/26/16: She was seen in consultation by Dr. Sonny Forbes who felt that the rapid response to steroids was very suggestive of AIH as the etiology of her liver disease. He suggested switching to budesonide and rapidly tapering prednisone. 02/07/16: She is presently taking prednisone 25 mg daily. She has a metallic taste in her mouth. Appetite is improved and fatigue has mostly resolved. Budesonide and rapid taper of prednisone started. 03/01/16: Telephone: After discontinuing prednisone on Saturday (02/26) she developed anorexia, malaise, and fatigue. These are the same symptoms she had at presentation. I recommended that she start prednisone 20 mg daily. She will continue Entocort and ursodiol. 04/01/16: She had rapid improvement in her symptoms back on prednisone. She has mild dysgeusia that she attributes to ursodiol. Thrombocyopenia workup in progress, but bone marrow suggests peripheral sequestration. 09/19/16: Patient diagnosed with AML on 05/15/16, with two subsequent rounds of chemotherapy and prolonged hospitalizations. Presently she is recuperating at home with plans for a stem cell transplantat [facility] in a month or two. She is on dexamethasone 2 mg daily. Entocort was stopped. There hasbeen a mild increase in transaminases. 12/12/16: Stem cell transplant at [facility]. 03/31/17: Sepsis due to MSSA, requiring prolonged intubation and hospitalization at [facility]. During hospitalization, marked increases of transaminases noted consistent with shock liver. 05/14/17: She is now recovering. She is on prednisone 50 mg/d and LFT's are improving. She is due for a visit to [facility] tomorrow. 09/05/17: She is now off immunomodulator medications and on just tapered to prednisone 5 mg daily. Her most recent LFT's showed ALT < 2x normal. She continues to get stronger with PT. 12/09/17: She is doing well, with resolution of jaundice. She is on prednisone 2.5 mg daily. Most recent LFT's (10/2017 from [place]) Bili 0.6, ALT 59, AST 63, ALK 273, ALB 3.9. Budesonide increased to 3mg TID. 05/20/18: She continues to do well with prednisone decreased 1 mg daily. LFT's are essentially unchanged as of 03/26/18. Overall she is feeling much better, with good exercise tolerance and good appetite. 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 She has mild elevation of transaminases. 04/08/19: Diarrhea began in February 2019 associated with weight loss. She has 4-5 semiformed BM's daily.There is occasional BRB with the stool. There is mild abdominal discomfort and urgency. Stool for Cdifficile and GI pathogens has been normal. There is no association between her diarrhea and periods when she takes venetoclax. 05/18/19: EGD and colonoscopy with duodenal and random colon biopsies did not reveal etiology of diarrhea. Small adenoma was removed. 06/01/19: She finds that PRN loperamide helps. But she worries about getting constipated. Colonoscopy 05/26 - several small adenomas ROS: GEN: no weight loss, fever, fatigue HEENT: no changes in vision or hearing, no sinus problems, no sore throat, no hoarsenss RESP: no cough, wheezing, SOB or change in breathing CARDIOVASCULAR: no exertional chest pain, dyspnea, palpitations GI: see HPI , otherwise negative : no dysuria, hematuria, polyuria MUSCULOSKELETAL: no change in joint pains, no new arthritis PSYCHIATRIC: no significant anxiety or depression, unchanged sleep pattern HEME: no bleeding tendency, no transfusion history NEURO: no significant headache, no seizures , no tremors SKIN: no new rashes, no itching ALLERGIES: Review of patient's allergies indicates: Allergen Reactions Amoxicillin Nausea/vomiting Penicillins Nausea/vomiting tolerated cephalosporins in past Other reaction(s): Nausea Only Other reaction(s): "makes me nervous", Nausea Past Medical History: Diagnosis Date Acute liver failure 04/03/2017 Acute respiratory failure with hypoxia (HCC) 04/02/2017 CLABSI (central line-associated bloodstream infection) 04/17/2017 Family history of colonic polyps Febrile neutropenia 06/08/2016 HSV-1 (herpes simplex virus 1) infection 06/08/2016 Hypothyroidism OTHER enlarged septum in heart Other anxiety states Staphylococcus aureus bacteremia with sepsis (HCC) 04/02/2017 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 Past Surgical History: Procedure Laterality Date AMPUTATION OF TOE Left 06/03/2017 AMPUTATION TOE METATARSOPHALANGEAL JOINT performed by Chandana Raymond MD at OR [facility] BONE MARROW ASPIRATION 08/02/2016 BONE MARROW BIOPSY 08/02/2016 COLONOSCOPY, DIAGNOSTIC (RECTUM) 06/04/2014 diverticulosis, repeat 5 yrs COLONOSCOPY, DIAGNOSTIC (RECTUM) 05/18/2019 adenomatous & hyperplastic polyp, repeat 3 yrs/[facility] COLONOSCOPY, DIAGNOSTIC (RECTUM) 05/24/2022 benign adenomatous polyps, repeat 3 yrs / COLONOSCOPY FLEXIBLE PROXIMAL DIAGNOSTIC performed by Syl Cohen DO at ENDOSCOPY [facility] EGD, FLEXIBLE, DIAGNOSTIC 01/11/2016 normal bx/ESOPHAGOGASTRODUODENOSCOPY (EGD), FLEXIBLE, TRANSORAL, DIAGNOSTIC performed by Cam Ellis MD at ENDOSCOPY [facility] EGD, FLEXIBLE, DIAGNOSTIC 05/18/2019 normal bx/[facility] FISSURECTOMY W/ SPHINCTEROTOMY INFORMATION stem cell transplant , 12/19 IR BIOPSY 12/28/2015 TRANSCATHETER BIOPSY performed by Haris Tim MD at RADIOLOGY [facility] MISCELLANEOUS ORDER ([facility] ONLY) N/A 04/01/2017 REMOVAL OF H[place] CATHETER [facility] DR. DAVIS 04/01/17 TMJ ARTHROSCOPY DISC REPOSIT Family History Problem Relation Age of Onset Lung Disorder Mother COPD Cancer Mother Head and Neck CA Stroke Mother carotid stenosis Esophageal cancer Father Heart attack Father Hypertension Father Thyroid Disorder Sister Other (Other) Sister alpha 1 antryipsin deficiency Breast Cancer Grandmother (Maternal) Heart Disorder Grandmother (Paternal) Heart Disorder Grandfather (Paternal) Breast Cancer Cousin (Maternal) 30s Social History Tobacco Use Smoking status: Never Smokeless tobacco: Never Vaping Use Vaping Use: Never used Substance Use Topics Alcohol use: Yes Comment: rarely Drug use: No Family History Problem Relation Age of Onset Lung Disorder Mother COPD Cancer Mother Head and Neck CA Stroke Mother carotid stenosis Esophageal cancer Father Heart attack Father Hypertension Father Thyroid Disorder Sister Other (Other) Sister alpha 1 antryipsin deficiency Breast Cancer Grandmother (Maternal) Heart Disorder Grandmother (Paternal) Heart Disorder Grandfather (Paternal) Breast Cancer Cousin (Maternal) 30s PE: phone visit ASSESSMENT/PLAN: Relapsed AML - being managed at [facility] as well as Dr. Nisreen GREEN - LFTs stable Chronic diarrhea - related to IBS. Fiber gummies are working well. Ok to use Imodium PRN History of polyps - due for repeat colonoscopy in 2024 documented in this encounter Plan of Treatment Upcoming Encounters Date Type Department Care Team (Latest Contact Info) Description 06/19/2023 1:00 PM EST Hem/Onc Treatment [address] [address] 06/20/2023 1:00 PM EST Hem/Onc Treatment Hematology[address] [address] 06/21/2023 1:00 PM EST Hem/Onc Treatment Hematology/[address], [address] [address] [address], Chair 1 Hem Onc Scenery [address] [place], [place] [address] 07/09/2023 1:00 PM EST Office Visit [facility] [address] [place] [address] Rayna Solares PA-C [address] [place] [address] 07/17/2023 9:00 AM EST Office Visit Hematology/Oncology [facility] [address] [place] [address] Corbin Nielson MD [address] [place] [address] 08/12/2023 11:20 AM EST Hospital Encounter OR [facility], Operating Room [facility] [address] [place] [phone] Stiven Ram, DO [address] [place] [phone] 08/12/2023 11:20 AM EST - 08/12/2023 11:45 AM EST Surgery OR [facility], Operating Room [facility] [address] [place] [phone] Stiven Ram, DO [address] [place] [address] INJECTION SPINE LUMBAR OR [facility] 08/13/2023 9:30 AM EST Office Visit Hematology/Oncology [facility] [address] [place] [address] Corbin Nielson MD [address] [place] [address] 11/06/2023 1:00 PM EDT Office Visit [facility] [address] [place] [address] Joe Peng DO [address] [facility] [place] [address] Scheduled Procedures Name Priority Associated Diagnoses Date/Ti [...] 01/23/2030 01/23/2023, 11/04/2018 Pap Smear Discontinued 08/13/2019, 08/08/2013, 03/05/2014, Additional [...] as of this encounter Visit Diagnoses Diagnosis Chronic diarrhea- Primary Diarrhea 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 No Code Status History Code Status Date Activated Date Inactivated Comments Full Code 06/15/2016 5:56 PM 08/09/2016 8:19 PM This order reflects the patients wishes and were consensually agreed upon. Question Answer Comments Discussion of Advance Directives occurred with: Patient Does the patient have a Living Will? No Does the patient have Health Care Power of Visitor Use Assistant? No Full Code 05/15/2016 3:18 AM 06/08/2016 6:42 PM This order reflects the patients wishes and were consensually agreed upon. Question Answer Comments Discussion of Advance Directives occurred with: Not Discussed Care Teams Preparing Box Tender Relationship Specialty Start Date End Date Joe Peng DO [address] [place] [address] PCP - General Family Medicine 05/19/18 documented as of this encounter
--- OUTSIDE RECORDS SUMMARY | 2023-08-22 00:28 | External Medical Summary | Summary of Care ---
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) Encounter for antineoplastic chemotherapy Procedures [place] DECITABINE INJECTION Corbin Nielson MD [address] [place] [address] Anc Hem/Onc Natalee Armstrong DEPT CLOSED - 06/18/23 [address] [place] [address] Referral ID Status Reason Start Date Expiration Date V isits Requested Visits Authorized [id number] Authorized 07/05/2021 08/04/2099 99 99 Encounter Details Date Type Department Care Team (Latest Contact Info) Description 06/19/2023 11:30 AM EST Hem/Onc Treatment Hematology/Oncolog y Treatment, [place] [address] [place] [address] Patti, Chair 5 Hem Onc Scenery [address] [place] [address] Acute myeloid leukemia not having achieved remission (HCC)*; 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); Encounter for antineoplastic chemotherapy Allergies Active Allergy Reactions Criticality Noted Date Comments Amoxicillin Nausea/vomiting 11/14/2015 Penicillins Nausea/vomiting Low 08/12/2007 tolerated cephalosporins in past Other reaction(s): Nausea Only Other reaction(s): "makes me nervous", Nausea documented as of this encounter (statuses as of 06/19/2023) Medications Medication Sig Dispensed Refills Start Date [...] as of this encounter (statuses as of 06/19/2023) Active Problems Problem Noted Date Diagnosed Date [...] as of this encounter (statuses as of 06/19/2023) Resolved Problems Problem Noted Date Diagnosed Date [...] 06/08/2016 07/31/2017 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 encounter 02/12/2012 04/27/2015 [facility] current use of ant icoagulant therapy 02/12/2012 04/27/2015 Overview: ICD-10 update of inactive term Other disorder of menstruati on and other abnormal bleeding from female genital tract 09/16/2007 04/27/2015 Uterine leiomyoma 09/16/2007 04/27/2015 documented as of this encounter (statuses as of 06/19/2023) Immunizations Name Administration Dates Next Due COVID-19 [...] Sign Reading Time Taken Comments Blood Pressure 100/67 06/19/2023 11:45 AM EST Pulse 83 06/19/2023 11:45 AM EST Temperature 36.5 C (97.7 F) 06/19/2023 11:[address] Respiratory Rate 12 06/19/2023 11:45 AM EST Oxygen Saturation 98% 06/19/2023 11:45 AM EST Inhaled Oxygen Concentration - - [...] of this encounter Nursing Notes * Theodora Hobbs RN - 06/19/2023 3:59 PM EST Chair 9 Pt here for C49D2 Dacogen. Reports no changes since [facility] yesterday. Safety and Risk for Injury Patient [...] goals: Met: patient without injury during treatment today Functional status at today's visit: Ambulatory and capable of all selfcare but unable to carry out any work activities. Up and about more than 50% of waking hours The drug name, dose, infusion volume, rate [...] Description 06/20/2023 1:00 PM EST Hem/Onc Treatment Hematology/Oncology Treatment, [address] [place] [address] 06/21/2023 1:00 PM EST Hem/Onc Treatment Hematology/Oncology Treatment, [address] [place] [address] P[place], Chair 1 Hem Onc [address] [place] [address] 07/09/2023 1:00 PM EST [facility] [place] [address] Rayna Solares PA-C [address] [place] [address] [place] [address] 07/17/2023 9:00 AM EST Office Visit Hematology/Oncology [facility] [address] [place] [address] Corbin Nielson MD [address] [place] [address] [place] [address] 08/12/2023 11:20 AM EST Hospital Encounter OR [facility], Operating Room [facility] [address] [place] [phone] Stiven Ram, [address] [place] [phone] 08/12/2023 11:20 AM EST - 08/12/2023 11:45 AM EST Surgery OR [facility], Operating Room [facility] [address] [place] [phone] Stiven Ram, DO [address] [place] [phone] INJECTION SPINE LUMBAR OR [facility] 08/13/2023 9:30 AM EST Office Visit Hematology/Oncology [facility] [place] [address] [place] [address] Corbin Nielson MD [address] [place] [address] 11/06/2023 1:00 PM EDT Office Visit Family Practice [facility] [place] [address] [place] [address] Joe Peng, DO [address] [place] [address] Scheduled Procedures Name Priority Associated Diagnoses Date/Ti [...] ONCE PRN Other, Hypersensitivity Reaction, Starting on Sat06/19/23 at 1147, Until Sat06/20/23 at 1146, For 24 hours EPINEPHrine 1 MG/ML inj 0.3 mg 0.3 mg, Intramuscular, ONCE PRN Other, Hypersensitivity Reaction or Anaphylaxis, Starting on Sat06/19/23 at 1147, Until Verena 06/20/23 at 1146, For 24 hours hEParin 100 UNIT/ML Lock Flush inj 500 Units 500 Units (5 mL), IV Lock, PRN Other, IV Flush, Starting on Sat06/19/23 at 1147, Until Sat06/20/23 at 1146, For 24 hours, Do not flush if lock, PICC, or central line not in place; IV infusing or unable to flush. Given 06/19/2023 1:25 PM EST 500 Units Hydrocortisone Sod Suc (PF) (Solu-Cortef) inj 100 mg 100 mg, IV Push, ONCE PRN Other, Hypersensitivity Reaction, Starting on Sat06/19/23 at 1147, Until Verena 06/20/23 at 1146, For 24 hours NSS infusion 500 mL, Intravenous, at 50 mL/hr, CONTINUOUS, Starting on Sat06/19/23 at 1300, Until Sat06/19/23 at 2259 Start Infusion 06/19/2023 12:00 PM EST 500 mL 50 mL/hr sodium chloride 0.9 % flush central line 10 mL 10 mL, IV Push, PRN Other, IV Flush, Starting on Sat06/19/23 at 1147, Until Verena 06/20/23 at 1146, For 24 hours, Do not flush if lock, PICC, or central line not in place; IV infusing or unable to flush. Given 06/19/2023 1:26 PM EST 10 mL Inactive Administered Medications - up to 3 most recent administrations Medication Order MAR Action Action Date Dose Rate Site Decitabine (Dacogen) 25.6 mg in NSS 100 mL infusion 25.6 mg (16 mg/m2 1.6 m2 Order-specific BSA), IV Piggyback, ONCE, 1 dose, On Sat06/19/23 at 1330, Administer over 60 Minutes, CAUTION: CHEMOTHERAPY HANDLE WITH GLOVES ! Start Infusion 06/19/2023 12:15 PM EST 25.6 mg 100 mL/hr documented [...] the patient have Health Care Power of Air Carrier Operations Inspector? No Code Status History Code Status Date Activated Date Inactivated Comments Full Code 06/15/2016 5:56 PM 08/09/2016 8:19 PM This order reflects the patients wishes and were consensually agreed upon. Question Answer Comments Discussion of Advance Directives occurred with: Patient Does the patient have a Living Will? No Does the patient have Health Care Power of Air Carrier Operations Inspector? No Full Code 05/15/2016 3:18 AM 06/08/2016 6:42 PM This order reflects the patients wishes and were consensually agreed upon. Question Answer Comments Discussion of Advance Directives occurred with: Not Discussed Care Teams Neurology Nurse Relationship Specialty Start Date End Date Joe Peng DO [address] [place] [address] PCP - General Family Medicine 05/19/18 documented as of this encounter
--- OUTSIDE RECORDS SUMMARY | 2023-08-22 00:29 | External Medical Summary ---
Author Name Unknown Address Unknown Organization K09:[facility] [address] Laboratory Report Ordering Provider Test Date Status APRYL MARINELLI 06/18/2023 10:25:28 Final Observation Date Value Abnormality Reference (Units ) Status SYNC LEUKOCYTES IN BLOOD BY AUTOMATED COUNT 06/18/2023 10:25:28 4.69 4.00-10.80 (K/uL) Final Segs 06/18/2023 10:25:28 53.6 40.0-75.0 (%) Final Lymphs % 06/18/2023 10:25:28 35.0 18.0-42.0 (%) Final Monos 06/18/2023 10:25:28 5.5 1.0-11.0 (%) Final Eosinophils 06/18/2023 10:25:28 3.8 0.0-6.0 (%) Final Basos 06/18/2023 10:25:28 2.1 Above high normal 0.0-2.0 (%) Final Absolute Segs 06/18/2023 10:25:28 2.51 1.80-7.70 (K/uL) Final Lymphs, absolute 06/18/2023 10:25:28 1.64 1.00-4.80 (K/ul) Final Monos, Abs 06/18/2023 10:25:28 0.26 0.00-1.10 (K/uL) Final Eos, Abs 06/18/2023 10:25:28 0.18 0.00-0.70 (K/uL) Final Basos, Abs 06/18/2023 10:25:28 0.10 0.00-0.20 (K/uL) Final Performing Location [facility] [place] [address]
--- OUTSIDE RECORDS SUMMARY | 2023-08-22 00:29 | External Medical Summary | Summary of Care ---
Author Name Unknown Organization [facility] Address [address] [place] [address] Phone [phone] Care Team Providers Care Rooming House Keeper Name Role Phone Joe Peng DO Primary Care Provider [phone] Reason for Visit * Reason Comments Follow Up Encounter Details Date Type Department Care Team (Latest Contact Info) Description 06/10/2023 11:30 AM EST Office Visit Hematology/Oncology [facility] [address] [facility] [place], [place] [id number] Emelyn Richard CRNP [address] [place], [place] [id number] Acute myeloid leukemia not having achieved remission (HCC)*; Leukemia cutis ; Encounter for antineoplastic chemotherapy; Immune thrombocytopenic purpura (HCC) Allergies Active Allergy Reactions Criticality Noted Date Comments Amoxicillin Nausea/vomiting 11/14/2015 Penicillins Nausea/vomiting Low 08/12/2007 tolerated cephalosporins in past Other reaction(s): Nausea Only Other reaction(s): "makes me nervous", Nausea documented as of this encounter (statuses as of 06/10/2023) Medications Medication Sig Dispensed Refills Start Date [...] as of this encounter (statuses as of 06/10/2023) Active Problems Problem Noted Date Diagnosed Date [...] as of this encounter (statuses as of 06/10/2023) Resolved Problems Problem Noted Date Diagnosed Date [...] 06/08/2016 07/31/2017 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 encounter 02/12/2012 04/27/2015 halfway current use of ant icoagulant therapy 02/12/2012 04/27/2015 Overview: ICD-10 update of inactive term Other disorder of menstruati on and other abnormal bleeding from female genital tract 09/16/2007 04/27/2015 Uterine leiomyoma 09/16/2007 04/27/2015 documented as of this encounter (statuses as of 06/10/2023) Immunizations Name Administration Dates Next Due COVID-19 [...] Sign Reading Time Taken Comments Blood Pressure 90/62 06/10/2023 11:42 AM EST Pulse 85 06/10/2023 11:42 AM EST Temperature 36.6 C (97.9 F) 06/10/2023 11:[address] Respiratory Rate 16 06/10/2023 11:42 AM EST Oxygen Saturation 99% 06/10/2023 11:42 AM EST Inhaled Oxygen Concentration - - Weight 51.5 kg (113 lb 8 oz) 06/10/2023 11:42 AM EST Height - - Body Mass Index 18.04 04/09/2023 9:25 AM EDT documented in this [...] or making decisions? (5 years old or older No 06/15/2016 documented as of this encounter Progress Notes * Emelyn Richard CRNP - 06/10/2023 11:30 AM EST Hematology/Oncology Outpatient Clinic note Melissa Armstrong [address] [facility] [place] [address] Name: Codi Soto Date: 06/10/2023 CHIEF COMPLAINT: Codi Soto is a 68 year old female patient of Dr. Alaniz Nisreen here today for f/u visit today. From Patient chart confirmed with patient. 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 7+ 3 induction chemotherapy (daunorubicin and cytarabine )on 05/18/2016 2. FL AG-JULIETTE re-induction on 06/21/2016 3. 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 4. 04/2019 she was noted to have worsening skin lesions on her lower extremities. She had radiation to her lower extremities with a complete resolution of her leukemia cutis. In 09/2019, 5.11/03/2019-She developed new lesions on her RUE as well as one lesion on her right shoulder. She again completed a course of radiation therapy to the RUE and right shoulder with resolution of the skin lesions CURRENT TREATMENT: On decitabine every 28 days and received 1st dose on 12/02/2018. Venetoclax was discontinued because of the pancytopenia. The dose decitabine was reduced by 20% on 02/15/2020 and also days were reduced to 4 days on 03/2020 because of bone marrow suppression, neutropenia and thrombocytopenia. ONCOLOGY HISTORY: Patient with history of acute myelogenous leukemia AFB M 5 (monocytic). She had induction chemotherapy in May 2016 with 3+7. Bone marrow aspirate and biopsy showed residual disease and she received re-inducation chemotherapy with FLAG- Juliette. She had evidence of residual disease even after the 2ndinduction chemotherapy and subsequently was treated with the hypomethylating therapy with the Vidaza x3 cycles on which she accomplished complete remission with persistent thrombocytopenia which was considered to represent autoimmune manifestation versus treatment related toxicity rather than active disease. Subsequently she underwent to 1010 [facility]UD peripheral stem-cell allogeneic hematopoietic stem cell transplant in May 2016. Her posttransplant clinical course was complicated with infection and sepsis with acute renal failure and later she was also found have a low level of CMV viremia and was treated. She had bone marrow biopsy done on 10/25/2016: Path:A. Bone marrow, right iliac crest, (peripheral smear, aspirate smear, core biopsy section, clot section): Normocellular marrow with multilineage maturation and marked erythroid preponderance. No morphological and immunophenotypic features of residual acute myeloid leukemia (see comment). Abundant iron stores. The study from the bone marrow aspirate specimen is performed by multicolor flow cytometry. The previous positive markers are tested. The analytic results on the cells falling in the blast gate are reported in the table. The gated blasts represent approximately 1% of the total cells and they have no aberrant expressionof CD56. Cytogenetics normal female karyotype TET 2 mutation analysis - detected, indicating residual AML in molecular level She underwent Flu/Cy/TBI conditioned 05/14 matched unrelated donor allogeneic hematopoietic stem cell transplant on 12/12/16. GVHD porphylaxis - HD-Cy, cellcept and tacrolimus. She is currently off all immunosuppressants. She takes acyclovir. Most recently she presented with the skin lesions and it was biopsied and was consistent with leukemia cutis. She unfortunately has extramedullary relapse of AML. The clinically evident extent of herrelapse is a quite limited, with skin lesions limited to her right lower extremity and no peripheral blood or marrow evidence of involvement. Bone marrow biopsy 09/23/18 marrow cellularity 30 to 40% normocellular for age with active trilineage hematopoiesis and no increase in blasts. She had extramedullary relapse with leukemia cutis Had punch biopsy of skin 09/17/18 pathology shows leukemia cutis CD33+ CD43+ CD56+CD68, Lysozyme +, CD57 -, MPO -, Ki 67 60% She was started on decitabine and venotoclax. She was seen at [facility] for follow-up in 02/2019 and had a bone marrow biopsy donewhich according to patient was reported as negative for any evidence of relapse of leukemia. Bone Marrow Aspiration and Biopsy 02/23/19: -Hypocellular marrow (15-20%) with trilineage hematopoiesis without evidence of increase in blasts. The aspirate smears are adequate. Megakaryocytes are present and morphologically unremarkable. Myeloid precursors show full differentiation with no increase in blasts. Erythroid precursors show solar project coordination specialist maturation without cytologic atypia. Core biopsy Sections (H&E and Giemsa stains): H&E and Giemsa stained sections show trabecular bone with hypocellular marrow (15-20 %). Myeloid precursors are decreased and show solar project coordination specialist maturation. Erythroid precursors are increased and show solar project coordination specialist maturation. Megakaryocytes are adequate with unremarkable morphology. Clot sections(H&E and Giemsa stains): The clot sections show fragments of marrow with findings similar to the above description. Iron stains (performed on the touch imprints, core biopsy, and clot section) Storage iron is mildly increased; ringed sideroblasts are not identified. Reticulin stain: A reticulin stain shows grade 0 fibrosis ( Consensus System). FISH: Normal Engraftment: 100% donor in CD3/peripheral blood. Karyotype: 46, XY TET2 mutation NOT detected. She has swelling and new lesions in the right lower extremity. She was also seen at [facility] for follow-up and recommended to continue the same treatment and continue venetoclax as far as the ANC is equal to or more than 500. She completed the radiation therapy to right lower extremity with improvement in the lesion which are due to leukemia cutis. Notice new skin lesion on the right upper extremity and shoulder area. She was seen at to [facility] and recommend radiation therapy. She was seen by Dr. Dockery from the radiation oncology and received radiation therapy. She completed to radiation therapy to the upper extremity and shoulder area on the right side. She also had telemedicine appointment with the Dr. Givens at to [facility] and the decision was to continue the same treatment for now. Because of the pancytopenia venetoclax was discontinued and it was advised by the Dr. Givens from [facility]. Currently she is receiving Dacogen single agent. Skin, left clark: Leukemia cutis (see comment) 05/25/2020 Comment: Atypical mononuclear cells permeate the reticular dermis. These are (+) for CD68 and lysozyme, and negative for MPO, CD34, and CD117. She was also seen by Dr. Stout at [facility] and had bone marrow biopsy and aspirate done. According to the patient she was told that the bone marrow biopsy is negative for relapse ofleukemia. The recommendation from Dr. Cbob is to continue Dacogen as far as there is no bone marrow involvement: Bone Marrow Aspiration and Biopsy 06/09/20: -Hemodiluted specimen, inadequate for morphologic evaluation, see microscopic description. Conclusion: No immunophenotypic evidence of abnormal cell population in a hemodiluted specimen. - Comprehensive Cancer Panel Mutation Detection by Next Generation Sequencing: RESULTS / INTERPRETATION: NO MUTATION(S) DETECTED FLOW CYTOMETRY REPORT Conclusion: No immunophenotypic evidence of abnormal cell population in a hemodiluted specimen. HISTORY OF PRESENT ILLNESS: Codi Soto is a 68 year old female with a history as outlined above. Currently here for f/u visit today. Saturday night patient developed intense itching of her arms and legs. Then Saturday woke up with the rash/bruising all over her arms. Then Saturday morning the spots showed up on her legs. Itchiness resolves with spray benadryl. Did send pictures to Peterson and has telemedicine appointment with him tomorrow. Otherwise no reports of abnormal bleeding. Patient reports this is what skin lookedlike last time she had flair up of leukemia cutis that required treatment with radiation therapy. Past Medical History: Diagnosis Date Acute liver [...] performed by Chandana Raymond MD [place] [facility] BONE MARROW ASPIRATION 08/02/2016 BONE MARROW BIOPSY 08/02/2016 COLONOSCOPY, DIAGNOSTIC (RECTUM) 06/04/2014 diverticulosis, repeat 5 yrs COLONOSCOPY, DIAGNOSTIC (RECTUM) 05/18/2019 adenomatous & hyperplastic polyp, repeat 3 yrs/[facility] COLONOSCOPY, DIAGNOSTIC (RECTUM) 05/24/2022 benign adenomatous polyps, repeat 3 yrs / COLONOSCOPY FLEXIBLE PROXIMAL DIAGNOSTIC performed by Syl Cohen DO at ENDOSCOPY [facility] EGD, FLEXIBLE, DIAGNOSTIC 01/11/2016 normal bx/ESOPHAGOGASTRODUODENOSCOPY (EGD), FLEXIBLE, TRANSORAL, DIAGNOSTIC performed by Cam Ellis MD at ENDOSCOPY [facility] EGD, FLEXIBLE, DIAGNOSTIC 05/18/2019 normal bx/[facility] FISSURECTOMY W/ SPHINCTEROTOMY INFORMATION stem cell transplant , 12/19 IR BIOPSY 12/28/2015 TRANSCATHETER BIOPSY performed by Haris Tim MD [place] [facility] [place]CELLANEOUS ORDER ([facility] ONLY) N/A 04/01/2017 REMOVAL OF [place] CATHETER [facility] DR. DAVIS 04/01/17 TMJ ARTHROSCOPY DISC [...] on file Housing Stability: Not on file Review of patient's allergies indicates: Allergen Reactions Amoxicillin Nausea/vomiting Penicillins Nausea/vomiting tolerated cephalosporins in past Other reaction(s): Nausea Only Other reaction(s): "makes me nervous", Nausea Current Outpatient Medications Medication Sig Dispense Refill Calcium Carb-Cholecalciferol 1000-800 MG-UNIT Oral Tablet Take 1 Tablet by mouth in the morning. Magnesium 400 MG TABS Take 2 tabs twice daily 360 Tab 1 buPROPion HCl ER (XL) 150 MG Oral Tablet Extended Release 24 Hour (Wellbutrin XL) Take 1 Tablet by mouth in the morning. buPROPion HCl ER (XL) 300 MG Oral Tablet Extended Release 24 Hour (Wellbutrin XL) Take 1 Tablet by mouth in the morning. busPIRone HCl 5 MG Oral Tablet (Buspar) Takes 2 tabs in the morning, 1 at noon, 2 tabs with dinner 150 Tablet 0 Potassium Chloride ER 20 MEQ Oral Tablet Extended Release Take 1 Tablet by mouth in the morning. 90Tablet 1 Prochlorperazine Maleate 10 MG Oral Tablet (Compazine) Take by mouth 1 Tablet every 8 hours as needed for Nausea. Every 6 hours as needed for nausea 30 Tablet 11 LORazepam 0.5 MG Oral Tablet (Ativan) Take by mouth 1 Tablet daily as needed for Anxiety. 30 Tablet3 Cyanocobalamin 1000 MCG Oral Tablet (Cyanocobalamin) Take 1 Tablet by mouth in the morning. 90 Tablet 1 Levothyroxine Sodium 150 MCG Oral Tablet (Levoxyl) TAKE 1 TABLET IN THE MORNING AT LEAST 30 MINUTESPRIOR TO BREAKFAST OR OTHERMEDICATIONS 90 Tablet 1 Omeprazole 20 MG Oral Capsule Delayed Release (PriLOSEC) TAKE 1 CAPSULE DAILY 90 Capsule 1 Acetaminophen 500 MG Oral Tablet Take 1 Tablet by mouth every 6 hours as needed. Gabapentin 300 MG Oral Capsule (Neurontin) Take 2 Capsules by mouth in the morning and 2 Capsules in the evening. 120 Capsule 5 HYDROcodone-Acetaminophen 5-325 MG Oral Tablet Take 1 Tablet by mouth every 8 hours as needed for Pain, Mild. 15 Tablet 0 Metoprolol Succinate ER 25 MG Oral Tablet Extended Release 24 Hour (toPROL XL) TAKE 1/2 TABLET DAILY 45 Tablet 3 Ondansetron 8 MG Oral Tablet Disintegrating Place 1 Tablet on tongue every 8 hours as needed for Nausea. dissolve on tongue. 30 Tablet 2 No current facility-administered medications for this visit. REVIEW OF SYSTEMS: See HPI - otherwise negative OBJECTIVE: Filed Vitals: 06/10/23 1142 BP: 90/62 Pulse: 85 Resp: 16 Temp: 36.6 C (97.9 F) TempSrc: Tympanic SpO2: 99% Weight: 51.5 kg (113 lb 8 oz) Wt Readings from Last 5 Encounters: 06/10/23 51.5 kg (113 lb 8 oz) 06/07/23 51.6 kg (113 lb 11.2 oz) 05/21/23 49.9 kg (110 lb) 05/14/23 50.6 kg (111 lb 9.6 oz) 04/15/23 50.3 kg (111 lb) PHYSICAL EXAM: General Appearance: No acute distress Skin: generalized ecchymosis to bilateral upper extremities, small areas of ecchymosis to her both sides of her neck neck; what appears to be purpura to distal aspect of anterior thigh on bilateral lower extremities Neurologic: Normal - Grossly intact LABS: N/A IMPRESSION/PLAN: Refractory acute myelogenous leukemia Leukemia Cutis History of ITP Will order STAT CBC today to evaluate blood counts, specifically platelet count Will also repeat CMP and get PT/INR Has appointment with dermatology tomorrow for punch biopsy to evaluate for possible recurrence of leukemia cutis Last bone marrow biopsy completed in 2019 which was negative. Regardless of skin biopsy results will move forward with repeat bone marrow biopsy and aspiration to r/o disease recurrence in the marrow. Patient also has telemedicine appointment with Aryan Cobb MD at [facility] scheduled for tomorrow. RTC with physician to review BMBx results LEONIDAS Zuñiga documented in this encounter Nursing Notes * Delisa Forbes CMA - 06/10/2023 11:43 AM EST Patient identifed by name and birthdate Do you have any concerns about pain management for today's visit? No Living Will or Advance Directive for Health Care as noted on the problem list. [facility] is a way you can talk to your provider on line through e-mail. Would you like to sign up? I can activate it for you? ALREADY ACTIVE Filed Vitals: 06/10/23 1142 BP: 90/62 Pulse: 85 Resp: 16 Temp: 36.6 C (97.9 F) TempSrc: Tympanic SpO2: 99% Weight: 51.5 kg (113 lb 8 oz) Patient was instructed to not get up on the exam table/exam chair until directed and assisted by their provider; patient is to remain seated in the chair/ wheelchair/ exam table/ exam chair for fall prevention and safety reasons. Patient is aware to have assistance to step down off exam table/exam chair with personnel. Patient voiced full comprehension of instructions. documented in this encounter Plan of Treatment Upcoming Encounters Date Type Department Care Team (Latest Contact Info) Description 06/11/2023 12:40 PM EST Office Visit Dermatology [facility] [address] [place] [address] Daiana Aleman PA-C [address] [facility] [place] [phone] 06/11/2023 3:00 PM EST Office Visit Cardiology, [facility] [address] [place] [address] Miya Jerez CRNP [address] [place] [address] 06/18/2023 10:30 AM EST Laboratory Laboratory [facility] [address] [place] [id number] Patti, Lab [facility] [address] [place], [place] [address] 06/18/2023 11:30 AM EST Hem/Onc Treatment Hematology/Oncolog y Treatment, [place] [address] [facility], [place] [address] Patti, Chair 1 Hem Onc [place] [address] [place] [address] 06/18/2023 2:40 PM EST Telemedicine Gastroenterology, [facility] [address] [place] [address] Syl Cohen DO [address] [place] [address] 06/19/2023 1:00 PM EST Hem/Onc Treatment Hematology/Oncolog y Treatment, [address], [place] [address] 06/20/2023 1:00 PM EST Hem/Onc Treatment Hematology/Oncolog y Treatment, [address], [place] [address] 06/21/2023 1:00 PM EST Hem/Onc Treatment Hematology/Oncolog y Treatment, [address], [place] [address] Patti, Chair 1 Hem Onc [facility] [address] [facility] [place], [place] [address] 07/09/2023 1:00 PM EST Office Visit Family Practice [facility] [place] [address] [place], [place] [address] Rayna Solares PA-C [address] [place] [address] 07/17/2023 9:00 AM EST Office Visit Hematology/Oncolog y [facility] [address] [place] [address] Corbin Nielson MD [address] [place] [address] 08/12/2023 11:20 AM EST Hospital Encounter [facility], Operating Room [facility] [address] [place] [phone] Stiven Ram, DO [address] [place] [id number] 08/12/2023 11:20 AM EST - 08/12/2023 11:45 AM EST Surgery OR [facility], Operating Room [facility] [address] [place] [phone] Stiven Ram, DO [address] [place] [address] INJECTION SPINE LUMBAR OR [facility] 08/13/2023 9:30 AM EST Office Visit Hematology/Oncolog y [facility] Patti [place] [address] [place] [address] Corbin Nielson MD [address] [place] [address] 11/06/2023 1:00 PM EDT Office Visit Family Practice [facility] P[place] [address] [place], [place] [address] Joe Peng, DO [address] [place], [place] [address] Scheduled Orders Name Type Priority Associated Diagnoses Orde r Schedule IR BIOPSY Medical Imaging STAT Acute myeloid leukemia not having achieved remission (HCC) Leukemia cutis Ordered: 06/10/2023 COMPREHENSIVE METABOLIC PANEL Lab STAT Acute myeloid leukemia not having achieved remission (HCC) Leukemia cutis Encounter for antineoplastic chemotherapy Expected: 06/11/2023 (Approximate), Expires: 09/09/2023 PT INR Lab STAT Acute myeloid leukemia not having achieved remission (HCC) Leukemia cutis Encounter for antineoplastic chemotherapy Immune thrombocytopenic purpura (HCC) Expected: 06/11/2023 (Approximate), Expires: 09/09/2023 Scheduled Procedures Name Priority Associated Diagnoses Date/Ti [...] 12/11/2023 12/10/2022, 09/2021, 08/31/2020, Additional history exists Mammogram 03/20/2024 03/20/2023, 02/03, 02/21/2022, Additional history exists Albumin/Creatinine Ratio 04/09/2024 023, 12/04/2021, 08/15/2020, Additional history exists GFR 06/03/2024 06/03/2023, 05/05, 05/14/2023, Additional history exists COLONOSCOPY-EVERY 3 YRS AGES 18-100 05/24/2025 05/24/2022, 05/24/2022, 05/18/2019, Additional history exists Lipid Panel 04/17/2026 04/17/2021, 08/05, 05/18/2015, Additional history exists DTaP,Tdap,and Td Vaccines (7 - Td or Tdap) 12/26/2027 12/25/2017, 10/30/2017, 09/30/2017, Additional history exists DXA Scan 01/23/2030 01/23/2023, 11/04/2018 Pap Smear Discontinued 08/13/2019, 0808/2013, 03/05/2014, Additional [...] leukemia not having achieved remission (HCC)- Primary Leukemia cutis Other leukemia of unspecified cell type, without mention of having achieved remission Encounter for antineoplastic chemotherapy Immune thrombocytopenic purpura (HCC) Immune thrombocytopenic purpura Lumbar radiculopathy Thoracic or lumbosacral neuritis or [...] the patient have Health Care Power of Babysitter? No Code Status History Code Status Date Activated Date Inactivated Comments Full Code 06/15/2016 5:56 PM 08/09/2016 8:19 PM This order reflects the patients wishes and were consensually agreed upon. Question Answer Comments Discussion of Advance Directives occurred with: Patient Does the patient have a Living Will? No Does the patient have Health Care Power of Babysitter? No Full Code 05/15/2016 3:18 AM 06/08/2016 6:42 PM This order reflects the patients wishes and were consensually agreed upon. Question Answer Comments Discussion of Advance Directives occurred with: Not Discussed Care Teams Rooming House Keeper Relationship Specialty Start Date End Date Joe Peng DO [address] [place] [address] PCP - General Family Medicine 05/19/18 documented as of this encounter
--- OUTSIDE RECORDS SUMMARY | 2023-08-22 00:29 | External Medical Summary | Summary of Care ---
Author Name Unknown Organization [facility] Address [address] [place] [address] Phone [phone] Care Team Providers Care Predatory Animal Trapper Name Role Phone Joe Peng DO Primary Care Provider [phone] Encounter Details Date Type Department Care Team (Late st Contact Info) Description 06/10/2023 Telephone Interventional Pain Center, [facility] [address] [place] [address] Isatu Mitchell PA-C [address] [place] [address] Allergies Active Allergy Reactions Criticality Noted Date [...] 06/08/2016 07/31/2017 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 encounter 02/12/2012 04/27/2015 half-way current use of ant icoagulant therapy 02/12/2012 04/27/2015 Overview: ICD-10 update of inactive term Other disorder of menstruati on and other abnormal bleeding from female genital tract 09/16/2007 04/27/2015 Uterine leiomyoma 09/16/2007 04/27/2015 documented as of this encounter (statuses as of 06/10/2023) Immunizations Name Administration Dates Next Due COVID-19 mRNA, LNP-s, No Pre serve, 2-Dose Series ([employer]) 05/08/2021,08/29/2020,08/08/2020 DTaP Dipth/Tet/Acell Pertussis (Infanrix), Peds 12/25/2017,10/30/2017,09/25/2017 [...] encounter Miscellaneous Notes * Telephone Encounter - Isatu Mitchell PA-C - 06/10/2023 10:36 AM EST ----- Message from Corbin Nielson MD sent at 06/10/2023 9:47 AM EST ----- As far as her blood counts are in acceptable range, there is no contraindication for injection. ----- Message ----- From: Isatu Mitchell PA-C Sent: 06/05/2023 2:42 PM EST To: Corbin Nielson MD Afternoon Dr. Nielson, I am seeking your opinion regarding possible lumbar epidural steroid injection in light of current chemotherapy. Isatu Martinez documented in this encounter Plan of Treatment Upcoming Encounters Date Type Department Care Team (Latest Contact Info) Description 06/10/2023 11:30 AM EST Office Visit Hematology/Oncolog y [facility] [address] [facility] [place] [address] Emelyn Richard CRNP [address] [place] [address] 06/11/2023 3:00 PM EST Office Visit [facility], [facility] [address] Miya Jerez CRNP [facility] [address] 06/18/2023 10:30 AM EST Laboratory Laboratory [facility] [address] [place] [phone] [place] [address] [address] [place] [address] 06/18/2023 11:30 AM EST Hem/Onc Treatment Hematology/Oncolog y Treatment, [place] 200 [facility], [place] [address] Patti, Chair 1 Hem Onc Scene 200 [facility] [place] [address] 06/18/2023 2:40 PM EST Telemedicine Gastroenterology, [facility] [address] [place] [address] Syl Cohen, DO [address] [place] [address] 06/19/2023 1:00 PM EST Hem/Onc Treatment [facility], [place] [facility] [address] 06/20/2023 1:00 PM EST Hem/Onc Treatment Hematology/Oncolog y Treatment, [place] 200 [facility], [place] [address] 06/21/2023 1:00 PM EST Hem/Onc Treatment Hematology/Oncolog y Treatment, [place] 200 [facility], [place] [address] Patti, Chair 1 Hem Onc [facility] [address] [facility] [place] [address] 07/09/2023 1:00 PM EST Office Visit Family Practice [facility] [place] [address] [place] [address] Rayna Solares PA-C 200 [facility] [place] [address] 08/12/2023 11:20 AM EST Hospital Encounter OR [facility], Operating Room [facility] [address] [place] [phone] Stiven Ram DO [address] [place] [phone] 08/12/2023 11:20 AM EST - 08/12/2023 11:45 AM EST Surgery OR [facility], Operating Room [facility] [address] [place] [phone] Stiven Ram, [address] [place] [address] INJECTION SPINE LUMBAR OR [facility]CR[place] 08/13/2023 9:30 AM EST Office Visit Hematology/Oncolog y [facility] [address] [place] [address] Corbin Nielson MD [address] [place] [address] 11/06/2023 1:00 PM EDT Office Visit Family Practice [facility] [address] [place] [address] Joe Peng, DO 200 [facility] [place] [address] Scheduled Procedures Name Priority Associated Diagnoses Date/Ti [...] 12/10/2022, 05/0 09/2021, 08/31/2020, Additional history exists Mammogram 03/20/2024 [...] the patient have Health Care Power of Expeditionary Fighting Vehicle Crewman? No Code Status History Code Status Date Activated Date Inactivated Comments Full Code 06/15/2016 5:56 PM 08/09/2016 8:19 PM This order reflects the patients wishes and were consensually agreed upon. Question Answer Comments Discussion of Advance Directives occurred with: Patient Does the patient have a Living Will? No Does the patient have Health Care Power of Expeditionary Fighting Vehicle Crewman? No Full Code 05/15/2016 3:18 AM 06/08/2016 6:42 PM This order reflects the patients wishes and were consensually agreed upon. Question Answer Comments Discussion of Advance Directives occurred with: Not Discussed Care Teams Predatory Animal Trapper Relationship Specialty Start Date End Date Joe Peng DO [address] [place] [address] PCP - General Family Medicine 05/19/18 documented as of this encounter
--- OUTSIDE RECORDS SUMMARY | 2023-08-22 00:29 | External Medical Summary | Summary of Care ---
Author Name Unknown Organization [facility] Address [address] [place] [address] Phone [phone] Care Team Providers Care Paraffin Machine Operator Name Role Phone Joe Peng DO Primary Care Provider [phone] Reason for Visit * Reason Comments Other [...] 06/11/2023 12:40 PM EST Office [facility] [address] [place] [address] Daiana Aleman PA-C 200 [facility] [place] [address] Dermatitis* Allergies Active Allergy Reactions Criticality Noted Date Comments Amoxicillin Nausea/vomiting 11/14/2015 Penicillins Nausea/vomiting Low 08/12/2007 tolerated cephalosporins in past Other reaction(s): Nausea Only Other reaction(s): "makes me nervous", Nausea documented as of this encounter (statuses as of 06/11/2023) Medications Medication Sig Dispensed Refills Start Date [...] as of this encounter (statuses as of 06/11/2023) Active Problems Problem Noted Date Diagnosed Date [...] as of this encounter (statuses as of 06/11/2023) Resolved Problems Problem Noted Date Diagnosed Date [...] 06/08/2016 07/31/2017 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 encounter 02/12/2012 04/27/2015 bed bug exterminator current use of ant icoagulant therapy 02/12/2012 04/27/2015 Overview: ICD-10 update of inactive term Other disorder of menstruati on and other abnormal bleeding from female genital tract 09/16/2007 04/27/2015 Uterine leiomyoma 09/16/2007 04/27/2015 documented as of this encounter (statuses as of 06/11/2023) Immunizations Name Administration Dates Next Due COVID-19 mRNA, LNP-s, No Pre serve, 2-Dose Series ([employer]) 05/08/2021,08/29/2020,08/08/2020 DTaP Dipth/Tet/Acell Pertussis (Infanrix), Peds 12/25/2017,10/30/2017,09/25/2017 [...] as of this encounter Progress Notes * Daiana Aleman PA-C - 06/11/2023 12:57 [...] Health Care as noted on problem list. [facility] is a way you can talk to [...] itch away immediately. documented in this encounter Plan of Treatment Upcoming Encounters Date Type Department Care Team (Latest Contact Info) Description 06/18/2023 10:30 AM EST Laboratory Laboratory [address] [place] [address] Patti, Lab [address] [place] [address] 06/18/2023 11:30 AM EST Hem/Onc Treatment Hematology/Oncolog y [address], [address] [address] Patti, Chair 1 Hem On[address] [place] [address] 06/18/2023 2:40 PM EST Telemedicine Gastroenterology, [facility] [address] [place] [address] Syl Cohen, 132 [place] [address] 06/19/2023 1:00 PM EST Hem/Onc Treatment Hematology/Oncolog y Treatment, [place] [facility] [address] 06/20/2023 1:00 PM EST Hem/Onc Treatment Hematology/Oncolog y Treatment, [place] 200 [facility], [place] [address] 06/21/2023 1:00 PM EST Hem/Onc Treatment Hematology/Oncolog y Treatment, [place] 200 [facility], [place] [address] Patti, Chair 1 Hem Onc [facility] [address] [facility] [place] [address] 07/09/2023 1:00 PM EST Office Visit Family Practice [facility] [address] [place] [address] Rayna Solares PA-C [address] [place] [address] 07/17/2023 9:00 AM EST Office Visit Hematology/Oncolog y [facility] [address] [place] [address] Corbin Nielson MD [address] [place] [address] 08/12/2023 11:20 AM EST Hospital Encounter OR [facility], Operating Room [facility] [address] [place] [phone] Stiven Ram, [address] [place] [phone] 08/12/2023 11:20 AM EST - 08/12/2023 11:45 AM EST Surgery OR [facility], Operating Room [facility] [address] [place] [phone] Stiven Ram, DO [address] [place] [phone] INJECTION SPINE LUMBAR OR SACRAL 08/13/2023 9:30 AM EST Office Visit Hematology/Oncolog y [facility] [place] [address] [place] [address] Corbin Nielson MD 200 [facility] [place] [address] 11/06/2023 1:00 PM EDT Office Visit Family Practice [facility] [place] 200 [facility] [place] [address] Joe Peng DO 200 [facility] [place] [address] Pending Results Name Type Priority Associated Diagnoses Date /Time SURGICAL PATHOLOGY Pathology Routine Dermatitis 06/11/2023 1:01 PM EST Scheduled Procedures Name Priority Associated [...] 023, 12/04/2021, 08/15/2020, Additional history exists GFR 06/11/2024 06/11/2023, 05/07, 05/21/2023, Additional history exists COLONOSCOPY-EVERY 3 YRS AGES 18-100 05/24/2025 05/24/2022, 05/24/2022, 05/18/2019, Additional history exists Lipid Panel 04/17/2026 04/17/2021, 08/05, 05/18/2015, Additional history exists DTaP,Tdap,and Td Vaccines (7 - Td or Tdap) 12/26/2027 12/25/2017, 10/30/2017, 09/30/2017, Additional history exists DXA Scan 01/23/2030 01/23/2023, 11/04/2018 Pap Smear Discontinued 08/13/2019, 08/0 08/2013, 03/05/2014, [...] Procedure Name Priority Date/Time Associated Diagnosis Comments DERM IMAGE (SITE) Routine 06/11/2023 Dermatitis documented in this encounter Results * DERM IMAGE (SITE) (06/11/2023) 06/11/2023 Daiana [...] the patient have Health Care Power of Engineering Scientist? No Code Status History Code Status Date Activated Date Inactivated Comments Full Code 06/15/2016 5:56 PM 08/09/2016 8:19 PM This order reflects the patients wishes and were consensually agreed upon. Question Answer Comments Discussion of Advance Directives occurred with: Patient Does the patient have a Living Will? No Does the patient have Health Care Power of Engineering Scientist? No Full Code 05/15/2016 3:18 AM 06/08/2016 6:42 PM This order reflects the patients wishes and were consensually agreed upon. Question Answer Comments Discussion of Advance Directives occurred with: Not Discussed Care Teams Paraffin Machine Operator Relationship Specialty Start Date End Date Joe Peng DO [address] [place] [address] PCP - General Family Medicine 05/19/18 documented as of this encounter
--- OUTSIDE RECORDS SUMMARY | 2023-08-22 00:29 | External Medical Summary | Summary of Care ---
Author Name Unknown Organization [facility] Address [address] [place] [address] Phone [phone] Care Team Providers Care Speedometer Inspector Name Role Phone Joe Peng DO Primary Care Provider [phone] Encounter Details Date Type Department Care Team (Late st Contact Info) Description 06/10/2023 Telephone Hematology/Oncology [facility] [place] [address] [place] [address] Corbin Nielson MD [address] [place] [address] Allergies Active Allergy Reactions Criticality Noted Date [...] Unspecified adrenocortical insufficiency 05/19/2018 08/28/2019 Unspecified convulsions 05/19/2018/2 11/2019 Aplastic anemia 05/19/2018 08/28/2019 Cardiomyopathy 10/28/2017 [...] 06/08/2016 07/31/2017 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 encounter 02/12/2012 04/27/2015 residential current use of ant icoagulant therapy 02/12/2012 04/27/2015 Overview: ICD-10 update of inactive term Other disorder of menstruati on and other abnormal bleeding from female genital tract 09/16/2007 04/27/2015 Uterine leiomyoma 09/16/2007 04/27/2015 documented as of this encounter (statuses as of 06/10/2023) Immunizations Name Administration Dates Next Due COVID-19 mRNA, LNP-s, No Pre serve, 2-Dose Series ([employer]) 05/08/2021,08/29/2020,08/08/2020 DTaP Dipth/Tet/Acell Pertussis (Infanrix), Peds 12/25/2017,10/30/2017,09/25/2017 [...] Care Team (Latest Contact Info) Description 06/11/2023 3:00 PM EST Office Visit Cardiology, [facility] [address] [place] [address] Miya Jerez CRNP [address] [place] [address] 06/18/2023 10:30 AM EST Laboratory Laboratory [facility] [place] [address] [place] [address] Patti, Lab [address]enery 200 [facility] [place] [address] 06/18/2023 11:30 AM EST Hem/Onc Treatment Hematology/Oncolog y Treatment, [place] [address] [place] [address] Patti, Chair 1 Hem Onc [place] [address] [place] [address] 06/18/2023 2:40 PM EST Telemedicine Gastroenterology, [facility] [address] [place] [address] Syl Cohen DO [address] [place] [address] 06/19/2023 1:00 PM EST Hem/Onc Treatment Hematology/Oncolog y Treatment, [place] 200 [facility], [place] [address] 06/20/2023 1:00 PM EST Hem/Onc Treatment Hematology/Oncolog y Treatment, [place] 200 [facility], [place] [address] 06/21/2023 1:00 PM EST Hem/Onc Treatment Hematology/Oncolog y Treatment, [place] 200 [facility], [place] [address] Patti, Chair 1 Hem Onc [facility] 200 [facility] [place], [place] [address] 07/09/2023 1:00 PM EST Office Visit Family Practice [facility] 200 [facility] [place], [place] [address] Rayna Solares PA-C 200 [facility] [place], [place] [address] 07/17/2023 9:00 AM EST Office Visit Hematology/Oncolog y [facility] 200 [facility] [place], [place] [address] Corbin Nielson MD 200 [facility] [place], [place] [address] 08/12/2023 11:20 AM EST Hospital Encounter OR [facility], Operating Room O[facility] [address] [place] [phone] Stiven Ram, DO [address] [place] [phone] 08/12/2023 11:20 AM EST - 08/12/2023 11:45 AM EST Surgery OR [facility], Operating Room O[facility] [address] [place] [phone] Stiven Ram, DO [address] [place] [phone] INJECTION SPINE LUMBAR OR SACRAL 08/13/2023 9:30 AM EST Office Visit Hematology/Oncolog y [facility] [place] 200 [facility] [place] [address] Corbin Nielson MD 200 [facility] [place] [address] 11/06/2023 1:00 PM EDT Office [facility] [place] 200 [facility] [place] [address] Joe Peng DO 200 [facility] [place] [address] Scheduled Procedures Name Priority Associated Diagnoses Date/Ti [...] the patient have Health Care Power of Grounds Keeper? No Code Status History Code Status Date Activated Date Inactivated Comments Full Code 06/15/2016 5:56 PM 08/09/2016 8:19 PM This order reflects the patients wishes and were consensually agreed upon. Question Answer Comments Discussion of Advance Directives occurred with: Patient Does the patient have a Living Will? No Does the patient have Health Care Power of Grounds Keeper? No Full Code 05/15/2016 3:18 AM 06/08/2016 6:42 PM This order reflects the patients wishes and were consensually agreed upon. Question Answer Comments Discussion of Advance Directives occurred with: Not Discussed Care Teams Speedometer Inspector Relationship Specialty Start Date End Date Joe Peng DO [address] [place] [address] PCP - General Family Medicine 05/19/18 documented as of this encounter
--- OUTSIDE RECORDS SUMMARY | 2023-08-22 00:29 | External Medical Summary ---
Author Name Unknown Address Unknown Organization [id number]:[facility] [address] [place] [address] Laboratory Report Ordering Provider Test Date Status APRYL MARINELLI 06/18/2023 10:25:28 Final Observation Date Value Abnormality Reference (Units ) Status BUN 06/18/2023 10:25:28 7 6-20 (mg/dL) Final Creatinine 06/18/2023 10:25:28 0.7 0.5-1.0 (mg/dL) Final Glomerular filtration rate/1.73 sq M.predicted [Volume Rate/Area] in Serum, Plasma or Blood by Creatinine-based formula (CKD-EPI) 06/18/2023 10:25:28 89 >=60 (mL/min) Final eGFR is calculated based on the CKD-EPI 2020 equation SODIUM 06/18/2023 10:25:28 144 135-146 (m mol/L) Final Potassium 06/18/2023 10:25:28 4.6 3.5-5.1 (m mol/L) Final Cl 06/18/2023 10:25:28 108 Above high normal 98 -107 (mmol/L) Final CO2 06/18/2023 10:25:28 29 22-32 (mmo l/L) Final Anion gap 06/18/2023 10:25:28 7 7-15 (mmol /L) Final Glucose 06/18/2023 10:25:28 84 70-120 (mg /dL) Final Albumin 06/18/2023 10:25:28 3.6 Below low normal 3.8 -5.0 (g/dL) Final AST (Aspartate aminotransferase) 06/18/2023 10:25:28 58 Above high normal 10-35 (U/L) Final Alk Phos 06/18/2023 10:25:28 303 Above high normal 35 -130 (U/L) Final Bilirubin, Total 06/18/2023 10:25:28 0.2 <=1 .2 (mg/dL) Final Calcium 06/18/2023 10:25:28 9.2 8.4-10.2 ( mg/dL) Final Protein 06/18/2023 10:25:28 6.6 6.0-8.3 (g /dL) Final ALT (Alanine aminotransferase) 06/18/2023 10:25:28 71 Above high normal 10-35 (U/L) Final Performing Location [facility] [address] [place] [address]
--- OUTSIDE RECORDS SUMMARY | 2023-08-22 00:29 | External Medical Summary | Summary of Care ---
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 dissolve on tongue. 30 Tablet 2 10/30/202 3 Active documented as of this encounter [...] mRNA, LNP-s, No Pre serve, 2-Dose Series ([employer]) 05/08/2021,08/29/2020,08/08/2020 DTaP Dipth/Tet/Acell Pertussis (Infanrix), Peds 12/25/2017,10/30/2017,09/25/2017 [...] AM EST Hem/Onc Treatment Hematology/Oncolog y Treatment, [place] 200 [facility] [place] [address] Patti, Chair 1 Hem Onc [place] [address] [place] [address] Arrived 06/18/2023 2:40 PM EST Telemedicine Gastroenterology, [facility] [address] [place] [address] Syl Cohen DO [address] [place] [address] Arrived 06/19/2023 1:00 PM EST Hem/Onc Treatment Hematology[facility]olog [facility] Treatment, [place] [facility] [address] 06/20/2023 1:00 PM EST Hem/Onc Treatment Hematology/Oncolog y [address], [address] [address] 06/21/2023 1:00 PM EST Hem/Onc Treatment Hematology/Oncolog y Treatment, [address] [place] [address] Patti, Chair 1 Hem Onc [facility] [address] [place] [address] 07/09/2023 1:00 PM EST Office Visit Family Practice [facility] [place] [address] [place] [address] Rayna Solares PA-C [address] [place] [address] 07/17/2023 9:00 AM EST Office Visit Hematology/Oncolog y [place] [place] [address] [place] [address] Corbin Nielson MD [address] [place] [address] 08/12/2023 11:20 AM EST Hospital Encounter OR [facility], Operating Room OSS [address] [place] [address] Stiven Ram, DO [address] [place] [address] 08/12/2023 11:20 AM EST - 08/12/2023 11:45 AM EST Surgery OR [facility], Operating Room OSS [address] [place] [phone] Stiven Ram, DO [address] [place] [phone] INJECTION SPINE LUMBAR OR [place]CR[place] 08/13/2023 9:30 AM EST Office Visit Hematology/Oncolog y [place] [address] [place] [address] Corbin Nielson MD [address] [place] [address] 11/06/2023 1:00 PM EDT Office Visit Family Practice [place] [address] [place] [address] Joe Peng, DO [address] [place] [address] Pending Results Name Type Priority Associated Diagnoses Date /Time CBC WITH WBC DIFFERENTIAL Lab STAT 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) Hypomagnesemia 06/18/2023 10:25 AM EST COMPREHENSIVE METABOLIC PANEL Lab STAT 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 No Code Status History Code Status Date Activated Date Inactivated Comments Full Code 06/15/2016 5:56 PM 08/09/2016 8:19 PM This order reflects the patients wishes and were consensually agreed upon. Question Answer Comments Discussion of Advance Directives occurred with: Patient Does the patient have a Living Will? No Does the patient have Health Care Power of Financial Sales Professional? No Full Code 05/15/2016 3:18 AM 06/08/2016 6:42 PM This order reflects the patients wishes and were consensually agreed upon. Question Answer Comments Discussion of Advance Directives occurred with: Not Discussed Care Teams Show Worker Relationship Specialty Start Date End Date Joe Peng DO [address] [place] [address] PCP - General Family Medicine 05/19/18 documented as of this encounter
--- OUTSIDE RECORDS SUMMARY | 2023-08-22 00:29 | External Medical Summary ---
Author Name Unknown Address Unknown Organization [id number][facility] [place] [address] Laboratory Report Ordering Provider Test Date Status SOLO ABARCA 06/11/2023 12:03:18 Final Warfarin Therapy
INR: 2 .0-3.0 conventional anticoagulation
INR: 2.5- 3.5 high intensity anticoagulation Observation Date Value Abnormality Reference (Units ) Status PT 06/11/2023 12:03:18 12.3 11.6-15.2 (seconds) Final INR 06/11/2023 12:03:18 0.9 0.8-1.2 Final Performing Location [facility] [address]
--- OUTSIDE RECORDS SUMMARY | 2023-08-22 00:29 | External Medical Summary | Summary of Care ---
Author Name Unknown Organization [facility] Address [address] [place] [address] Phone [phone] Care Team Providers Care Material Handling Technician Name Role Phone Joe Peng DO Primary Care Provider [phone] Reason for Visit * Reason Comments Outpatient Testing Encounter Details Date Type Department Care Team (Latest Contact Info) Description 06/11/2023 12:00 PM EST Laboratory Laboratory [facility] [address] [place] [phone] [facility] Lab Scenery [address] [facility], [place] [address] Acute myeloid leukemia not having achieved remission (HCC); Leukemia cutis ; Encounter for antineoplastic chemotherapy; [...] 06/08/2016 07/31/2017 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 encounter 02/12/2012 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 02/12/2012 04/27/2015 Overview: ICD-10 update of inactive term Other disorder of menstruati on and other abnormal bleeding from female genital tract 09/16/2007 04/27/2015 Uterine leiomyoma 09/16/2007 04/27/2015 documented as of this encounter (statuses as of 06/11/2023) Immunizations Name Administration Dates Next Due COVID-19 mRNA, LNP-s, No Pre serve, 2-Dose Series ([employer]) 05/08/2021,08/29/2020,08/08/2020 DTaP Dipth/Tet/Acell Pertussis (Infanrix), Peds 12/25/2017,10/30/2017,09/25/2017 [...] 06/11/2023 12:40 PM EST Office Visit Dermatology [facility] [address] [place] [address] Daiana Aleman PA-C 200 [facility] [place] [phone] Arrived 06/11/2023 3:00 PM EST Office Visit [facility]iology, [facility] [place] [address] Miya Jerez CRNP [address] [place] [address] 06/18/2023 10:30 AM EST Laboratory Laboratory [facility] [place] [address] [place] [phone] Patit, Lab [facility] [place] [address] 06/18/2023 11:30 AM EST Hem/Onc Treatment Hematology/Oncolog y Treatment, [place] [address] [place] [address] Patti, Chair 1 Hem Onc [facility] [address] [facility] [place] [address] 06/18/2023 2:40 PM EST Telemedicine Gastroenterology, [facility] [address] [place] [address] Syl Cohen, [address] [place] [address] 06/19/2023 1:00 PM EST Hem/Onc Treatment Hematology/Oncolog y Treatment, [place] 200 [facility], [place] [address] 06/20/2023 1:00 PM EST Hem/Onc Treatment Hematology/Oncolog y Treatment, [place] 200 [facility], [place] [address] 06/21/2023 1:00 PM EST Hem/Onc Treatment Hematology/Oncolog y Treatment, [place] 200 [facility], [place] [address] Patti, Chair 1 Hem Onc [facility] [address] [facility] [place], [place] [address] 07/09/2023 1:00 PM EST Office Visit Family Practice [facility] [place] [address] [facility] [place], [place] [address] Rayna Solares PA-C 200 [facility] [place], [place] [address] 07/17/2023 9:00 AM EST Office Visit Hematology/Oncolog y [facility] [place] [address] [place], [place] [address] Corbin Nielson MD 200 [facility] [place], [place] [address] 08/12/2023 11:20 AM EST Hospital Encounter OR [facility], Operating Room [facility] [address] [place] [phone] Stiven Ram, DO [address] [place] [address] 08/12/2023 11:20 AM EST - 08/12/2023 11:45 AM EST Surgery OR [facility], Operating Room [facility] [address] [place] [phone] Stiven Ram, DO [address] [place] [address] INJECTION SPINE LUMBAR OR [place]CR[place] 08/13/2023 9:30 AM EST Office Visit Hematology/Oncolog y [facility] [address] [facility] [place] [address] Corbin Nielson MD 200 [place] [address] 11/06/2023 1:00 PM EDT Office Visit Family Practice [facility] [place] [address] [place] [address] Joe Peng, [address] [facility] [place] [address] Pending Results Name Type Priority Associated Diagnoses Date /Time COMPREHENSIVE METABOLIC PANEL Lab STAT Acute myeloid leukemia not having achieved remission (HCC) Leukemia cutis Encounter for antineoplastic chemotherapy 06/11/2023 12:03 PM EST PT INR Lab STAT Acute myeloid leukemia not having achieved remission (HCC) Leukemia cutis Encounter for antineoplastic chemotherapy Immune thrombocytopenic purpura (HCC) 06/11/2023 12:03 PM EST Scheduled Procedures Name Priority Associated [...] the patient have Health Care Power of Kiln Operator Helper? No Code Status History Code Status Date Activated Date Inactivated Comments Full Code 06/15/2016 5:56 PM 08/09/2016 8:19 PM This order reflects the patients wishes and were consensually agreed upon. Question Answer Comments Discussion of Advance Directives occurred with: Patient Does the patient have a Living Will? No Does the patient have Health Care Power of Kiln Operator Helper? No Full Code 05/15/2016 3:18 AM 06/08/2016 6:42 PM This order reflects the patients wishes and were consensually agreed upon. Question Answer Comments Discussion of Advance Directives occurred with: Not Discussed Care Teams Material Handling Technician Relationship Specialty Start Date End Date Joe Peng DO [address] [place] [address] PCP - General Family Medicine 05/19/18 documented as of this encounter
--- OUTSIDE RECORDS SUMMARY | 2023-08-22 00:29 | External Medical Summary | Summary of Care ---
Author Name Unknown Organization [facility] Address [address] [place] [address] Phone [phone] Care Team Providers Care Beater Machine Operator Name Role Phone Joe Peng DO Primary Care Provider [phone] Reason for Visit * Reason Comments Outpatient Testing Encounter Details Date Type Department Care Team (Late st Contact Info) Description 06/10/2023 12:10 PM EST Laboratory Laboratory [facility] [address] [place] [phone] [facility] Lab Scenery [address] [facility], [place] [address] Acute myeloid leukemia not having achieved remission (HCC); Leukemia cutis Allergies Active Allergy Reactions Criticality Noted Date [...] Nausea. dissolve on tongue. 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 02/12/2012 04/27/2015 Overview: ICD-10 update of inactive term Other disorder of menstruati on and other abnormal bleeding from female genital tract 09/16/2007 04/27/2015 Uterine leiomyoma 09/16/2007 04/27/2015 documented as of this encounter (statuses as of 06/10/2023) Immunizations Name Administration Dates Next Due COVID-19 mRNA, LNP-s, No Pre serve, 2-Dose Series ([employer]) 05/08/2021,08/29/2020,08/08/2020 DTaP Dipth/Tet/Acell Pertussis (Infanrix), Peds 12/25/2017,10/30/2017,09/25/2017 [...] 06/11/2023 3:00 PM EST Office Visit Cardiology, [facility] [address] [place] [address] Miya Jerez CRNP [address] [place] [address] 06/18/2023 10:30 AM EST Laboratory Laboratory [facility] [place] 200 [facility] [place] [phone] Patti, Lab [facility] 200 [facility] [place] [address] 06/18/2023 11:30 AM EST Hem/Onc Treatment Hemat[facility]/Oncolog [facility] Treatment, [place] [facility] [address] Patti, Chair 1 Hem Onc [address] [place] [address] 06/18/2023 2:40 PM EST Telemedicine Gastroenterology, [facility] [address] [address] Syl Cohen, [address] [place] [address] 06/19/2023 1:00 PM EST Hem/Onc Treatment Hematology/Oncolog y Treatment, [address] [address] 06/20/2023 1:00 PM EST Hem/Onc Treatment Hematology[facility]Oncolog [facility] Treatment, [place] [facility] [address] 06/21/2023 1:00 PM EST Hem/Onc Treatment Hematology/Oncolog y Treatment, [address] [place] [address] Patti, Chair 1 Hem Onc [facility] 200 [facility] Esp[facility]za [facility] [place] [address] 07/09/2023 1:00 PM EST Office Visit [facility] [place] [address] [place] [address] Rayna Solares PA-C [address] [place] [address] 07/17/2023 9:00 AM EST Office Visit Hematology/Oncolog y [facility] [place] [address] [place] [address] Corbin Nielson MD [address] [place] [address] 08/12/2023 11:20 AM EST Hospital Encounter OR [facility], Operating Room [facility] [address] [place] [phone] Stiven Ram, [address] [place] [phone] 08/12/2023 11:20 AM EST - 08/12/2023 11:45 AM EST Surgery OR [facility], Operating Room [facility] [address] [place] [phone] Stiven Ram, [address] [place] [address] INJECTION SPINE LUMBAR OR SACRAL 08/13/2023 9:30 AM EST Office Visit Hematology/Oncolog y [facility] [place] [address] [place], [place] [address] Corbin Nielson MD [address] [place] [address] 11/06/2023 1:00 PM EDT Office Visit Family Practice [facility] 200 [facility] [place] [address] Joe Peng, 200 [facility] [place] [address] Scheduled Procedures Name Priority Associated Diagnoses Date/Ti [...] Date/Time Associated Diagnosis Comments DIFFERENTIAL, AUTOMATED STAT 06/10/2023 12:13 PM EST Acute myeloid leukemia not having achieved remission (HCC) Leukemia cutis CBC STAT 06/10/2023 12:13 PM EST Acute myeloid leukemia not having achieved remission (HCC) Leukemia cutis CBC STAT 06/10/2023 12:13 PM EST Acute myeloid leukemia not having achieved remission (HCC) Leukemia cutis documented in this encounter Results * (ABNORMAL) DIFFERENTIAL, AUTOMATED (06/10/2023 12:13 PM EST) WBC 3.70(L) 4.00 - 10.80 K/uL 06/10/2023 12:20 PM EST [facility] 56-02 Neutrophils % 49.5 40.0 - 75.0 % 06/10/2023 12:20 PM EST [facility] 56-02 Lymphocytes % 31.9 18.0 - 42.0 % 06/10/2023 12:20 PM EST [facility] 56-02 Monocytes % 12.4(H) 1.0 - 11.0 % 06/10/2023 12:20 PM EST [facility] 56-02 Eosinophils % 5.4 0.0 - 6.0 % 06/10/2023 12:20 PM EST [facility] 56- Basophils % 0.8 0.0 - 2.0 % 06/10/2023 12:20 PM EST [facility] 56- Absolute Neutrophils 1.83 1.80 - 7.70 K/uL 06/10/2023 12:20 PM EST [facility] 56- Absolute Lymphocytes 1.18 1.00 - 4.80 K/ul 06/10/2023 12:20 PM EST [facility] 56- Absolute Monocytes 0.46 0.00 - 1.10 K/uL 06/10/2023 12:20 PM [facility] 56- Absolute Eosinophils 0.20 0.00 - 0.70 K/uL 06/10/2023 12:20 PM [facility] 56- Absolute Basophils 0.03 0.00 - 0.20 K/uL 06/10/2023 12:20 PM [facility] 56- Blood Venous blood specimen / Unknown Venipuncture / Unknown 06/10/2023 12:13 PM EST 06/10/2023 12:13 PM EST Emelyn LAUREN LAB BLOOD ORDER [facility] [address] [place] [address] * (ABNORMAL) CBC (06/10/2023 12:13 PM EST) WBC 3.70(L) 4.00 - 10.80 K/uL 06/10/2023 12:20 PM [facility] 56- RBC 3.00 3.85 - 5.15 M/uL 06/10/2023 12:20 PM [facility] 56- HGB 10.9(L) 12.0 - 15.3 g/dL 06/10/2023 12:20 PM [facility] 56- HCT 32.8(L) 36.0 - 45.2 % 06/10/2023 12:20 PM [facility] 56- MCV 109.3 81.5 - 97.5 fL 06/10/2023 12:20 PM [facility] 56- MCH 36.3 27.0 - 34.0 pg 06/10/2023 12:20 PM EST [facility] 56- MCHC 33.2 32.0 - 36.0 g/dL 06/10/2023 12:20 PM EST [facility] 56- RDW 13.9 11.5 - 15.5 % 06/10/2023 12:20 PM EST [facility] 56- PLT 152 140 - 400 K/uL 06/10/2023 12:20 PM EST [facility] 56- MPV 9.0 6.6 - 11.1 fL 06/10/2023 12:20 PM EST [facility] 56- Blood Venous blood specimen / Unknown Venipuncture / Unknown 06/10/2023 12:13 PM EST 06/10/2023 12:13 PM EST Emelyn LAUREN LAB BLOOD ORDER [place] [place] [address] [place] [address] documented in this encounter Visit Diagnoses Diagnosis [...] the patient have Health Care Power of Machine Stone Polisher Apprentice? No Code Status History Code Status Date Activated Date Inactivated Comments Full Code 06/15/2016 5:56 PM 08/09/2016 8:19 PM This order reflects the patients wishes and were consensually agreed upon. Question Answer Comments Discussion of Advance Directives occurred with: Patient Does the patient have a Living Will? No Does the patient have Health Care Power of Machine Stone Polisher Apprentice? No Full Code 05/15/2016 3:18 AM 06/08/2016 6:42 PM This order reflects the patients wishes and were consensually agreed upon. Question Answer Comments Discussion of Advance Directives occurred with: Not Discussed Care Teams Beater Machine Operator Relationship Specialty Start Date End Date Joe Peng DO [address] [place] [address] PCP - General Family Medicine 05/19/18 documented as of this encounter
--- OUTSIDE RECORDS SUMMARY | 2023-08-22 00:29 | External Medical Summary ---
Author Name Unknown Address Unknown Organization [id number] 56-18 - [address] [place] [address] Laboratory Report Ordering Provider Test Date Status SOLO ABARCA 06/11/2023 12:03:18 Final Observation Date Value Abnormality Reference (Units ) Status BUN 06/11/2023 12:03:18 8 6-20 (mg/dL) Final Creatinine 06/11/2023 12:03:18 0.8 0.5-1.0 (mg/dL) Final Glomerular filtration rate/1.73 sq M.predicted [Volume Rate/Area] in Serum, Plasma or Blood by Creatinine-based formula (CKD-EPI) 06/11/2023 12:03:18 86 >=60 (mL/min) Final eGFR is calculated based on the CKD-EPI 2020 equation SODIUM 06/11/2023 12:03:18 143 135-146 (m mol/L) Final Potassium 06/11/2023 12:03:18 4.3 3.5-5.1 (m mol/L) Final Cl 06/11/2023 12:03:18 109 Above high normal 98 -107 (mmol/L) Final CO2 06/11/2023 12:03:18 27 22-32 (mmo l/L) Final Anion gap 06/11/2023 12:03:18 7 7-15 (mmol /L) Final Glucose 06/11/2023 12:03:18 86 70-120 (mg /dL) Final Albumin 06/11/2023 12:03:18 3.4 Below low normal 3.8 -5.0 (g/dL) Final AST (Aspartate aminotransferase) 06/11/2023 12:03:18 40 Above high normal 10-35 (U/L) Final Alk Phos 06/11/2023 12:03:18 261 Above high normal 35 -130 (U/L) Final Bilirubin, Total 06/11/2023 12:03:18 0.2 <=1 .2 (mg/dL) Final Calcium 06/11/2023 12:03:18 8.9 8.4-10.2 ( mg/dL) Final Protein 06/11/2023 12:03:18 5.9 Below low normal 6.0 -8.3 (g/dL) Final ALT (Alanine aminotransferase) 06/11/2023 12:03:18 53 Above high normal 10-35 (U/L) Final Performing Location [facility] 56 02 [address] [place] [address]
--- OUTSIDE RECORDS SUMMARY | 2023-08-22 00:29 | External Medical Summary ---
Author Name Unknown Address Unknown Organization [facility] [place] [address] Laboratory Report Ordering Provider Test Date Status APRYL MARINELLI 06/18/2023 10:25:28 Final Observation Date Value Abnormality Reference (Units ) Status WBC, Total 06/18/2023 10:25:28 4.69 4.00-10.8 0 (K/uL) Final RBC 06/18/2023 10:25:28 3.05 3.85-5.15 (M/uL) Final Hemoglobin 06/18/2023 10:25:28 11.1 Below low normal 12 .0-15.3 (g/dL) Final HCT 06/18/2023 10:25:28 33.9 Below low normal 36. 0-45.2 (%) Final MCV 06/18/2023 10:25:28 111.1 81.5-97.5 (fL) Final MCH 06/18/2023 10:25:28 36.4 27.0-34.0 (pg) Final MCHC 06/18/2023 10:25:28 32.7 32.0-36.0 (g/dL) Final RDW 06/18/2023 10:25:28 13.8 11.5-15.5 (%) Final Platelets 06/18/2023 10:25:28 265 140-400 (K /uL) Final MPV 06/18/2023 10:25:28 8.9 6.6-11.1 ( fL) Final Performing Location [facility] [place] [address]
--- OUTSIDE RECORDS SUMMARY | 2023-08-22 00:29 | External Medical Summary | Summary of Care ---
Author Name Unknown Organization [facility] Address [address] [place] [address] Phone [phone] Care Team Providers Care Paunch Trimmer Name Role Phone Joe Peng DO Primary Care Provider [phone] Encounter Details Date Type Department Care Team (Late st Contact Info) Description 06/15/2023 Orders Only Hematology/Oncology, [facility] [address] [place] [address] Corbin Nielson MD [address] [place] [address] Allergies Active Allergy Reactions Criticality Noted Date Comments Amoxicillin Nausea/vomiting 11/14/2015 Penicillins Nausea/vomiting Low 08/12/2007 tolerated cephalosporins in past Other reaction(s): Nausea Only Other reaction(s): "makes me nervous", Nausea documented as of this encounter (statuses as of 06/15/2023) Medications Medication Sig Dispensed Refills Start Date [...] as of this encounter (statuses as of 06/15/2023) Active Problems Problem Noted Date Diagnosed Date [...] as of this encounter (statuses as of 06/15/2023) Resolved Problems Problem Noted Date Diagnosed Date [...] 06/08/2016 07/31/2017 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 encounter 02/12/2012 04/27/2015 detention current use of ant icoagulant therapy 02/12/2012 04/27/2015 Overview: ICD-10 update of inactive term Other disorder of menstruati on and other abnormal bleeding from female genital tract 09/16/2007 04/27/2015 Uterine leiomyoma 09/16/2007 04/27/2015 documented as of this encounter (statuses as of 06/15/2023) Immunizations Name Administration Dates Next Due COVID-19 mRNA, LNP-s, No Pre serve, 2-Dose Series ([employer]) 05/08/2021,08/29/2020,08/08/2020 DTaP Dipth/Tet/Acell Pertussis (Infanrix), Peds [...] Description 06/18/2023 10:30 AM EST Laboratory Laboratory [facility] Patti [place] [address] [place] [phone] Patti, [place] [address] [address] [facility] [place] [address] 06/18/2023 11:30 AM EST Hem/Onc Treatment Hematology/Oncolog y Treatment, [address] [place] [address] Patti, Chair 1 Hem Onc [place] [address] [place] [address] 06/18/2023 2:40 PM EST Telemedicine Gastroenterology, [facility] [address] [place] [address] Syl Cohen DO [address] [place] [address] 06/19/2023 1:00 PM EST Hem/Onc Treatment Hematology/Oncolog y Treatment, [address] [place] [address] 06/20/2023 1:00 PM EST Hem/Onc Treatment Hematology/Oncolog y Treatment, [address] [address] 06/21/2023 1:00 PM EST Hem/Onc Treatment Hematology/Oncolog y Treatment, [address] [address] Patti, Chair 1 Hem Onc [facility] [address] [place] [address] 07/09/2023 1:00 PM EST Office Visit Family Practice [place] [address] Rayna Pineda PA-C [address] [place] [address] 07/17/2023 9:00 AM EST Office Visit Hematology/Oncolog y [facility] [place] [address] [place] [address] Corbin Nielson MD [address] [place] [address] 08/12/2023 11:20 AM EST Hospital Encounter OR [facility], Operating Room [facility] [address] [place] [phone] Stiven Ram, DO [address] [place] [address] 08/12/2023 11:20 AM EST - 08/12/2023 11:45 AM EST Surgery OR [facility], Operating Room [facility] [address] [place] [address] Stiven Ram, DO [address] [place] [phone] INJECTION SPINE LUMBAR OR [facility]CR[facility] 08/13/2023 9:30 AM EST Office [facility] [address] [place] [address] Corbin Nielson MD [address] [place] [address] 11/06/2023 1:00 PM EDT Office Visit Family Practice [facility] Patti [place] [address] [place] [address] Joe Peng, DO [address] [place] [address] Scheduled Procedures Name Priority Associated Diagnoses Date/Ti [...] the patient have Health Care Power of Scrum Product Owner? No Code Status History Code Status Date Activated Date Inactivated Comments Full Code 06/15/2016 5:56 PM 08/09/2016 8:19 PM This order reflects the patients wishes and were consensually agreed upon. Question Answer Comments Discussion of Advance Directives occurred with: Patient Does the patient have a Living Will? No Does the patient have Health Care Power of Scrum Product Owner? No Full Code 05/15/2016 3:18 AM 06/08/2016 6:42 PM This order reflects the patients wishes and were consensually agreed upon. Question Answer Comments Discussion of Advance Directives occurred with: Not Discussed Care Teams Paunch Trimmer Relationship Specialty Start Date End Date Joe Peng DO [address] [place] [address] PCP - General Family Medicine 05/19/18 documented as of this encounter
--- OUTSIDE RECORDS SUMMARY | 2023-08-22 00:29 | External Medical Summary ---
Author Name Unknown Address Unknown Organization [facility] [place] [address] Laboratory Report Ordering Provider Test Date Status APRYL MARINELLI 06/18/2023 10:25:28 Final Observation Date Value Abnormality Reference (Units ) Status Magnesium 06/18/2023 10:25:28 1.9 1.5-2.6 (m g/dL) Final Performing Location [facility] [address]
--- OUTSIDE RECORDS SUMMARY | 2023-08-22 00:30 | External Medical Summary | Summary of Care ---
Author Name Unknown Organization [facility] Address [address] [place] [address] Phone [phone] Care Team Providers Care Injection Molding Machine Setter Name Role Phone Joe Peng DO Primary Care Provider [phone] Reason for Visit * Reason Comments eRx-Medication Refill Encounter Details Date Type Department Care Team (Late st Contact Info) Description 05/27/2023 Refill Cardiology, [facility] [address] [place] [address] Howie Chapa MD [address] [place] [address] Takotsubo cardiomyopathy Allergies Active Allergy Reactions Criticality Noted Date Comments Amoxicillin Nausea/vomiting 11/14/2015 Penicillins Nausea/vomiting Low 08/12/2007 tolerated cephalosporins in past Other reaction(s): Nausea Only Other reaction(s): "makes me nervous", Nausea documented as of this encounter (statuses as of 05/27/2023) Medications Medication Sig Dispensed Refills Start Date [...] Anxiety. 30 Tablet 3 06/04/20 22 Active Cyanocobalamin 1000 MCG Oral Tablet (Cyanocobalamin) Take 1 Tablet by mouth in the morning. 90 Tablet 1 12/29/19 23 Active Levothyroxine Sodium 150 MCG Oral Tablet (Levoxyl)Indicatio ns:Acquired hypothyroidism TAKE 1 TABLET IN THE MORNING AT LEAST 30 MINUTESPRIOR TO BREAKFAST OR OTHERMEDICATIONS 90 Tablet 1 02/21/20 23 Active Ondansetron 8 MG Oral Tablet DisintegratingIndi cations:Acute myeloid leukemia in remission (HCC) Place 1 Tablet on tongue every 8 hours as needed for Nausea. dissolve on tongue. 30 Tablet 2 03/11/20 23 Active Omeprazole 20 MG Oral Capsule Delayed Release (PriLOSEC)Indicati ons:Gastroesophage al reflux disease without esophagitis TAKE 1 CAPSULE DAILY 90 Capsule 1 03/14/20 23 Active Acetaminophen 500 MG Oral Tablet Take 1 Tablet by mouth every 6 hours as needed. 0 Active Diclofenac Sodium 1 % External Gel (Voltaren)Indicati ons:Hip pain, left,Lumbar degenerative disc disease Apply topically to affected area 3 times a day as needed (pain). 1 g 0 03/15/20 23 Active Gabapentin 300 MG Oral Capsule (Neurontin)Indicat [...] DAILY 45 Tablet 3 05/27/20 23 Active Metoprolol Succinate ER 25 MG Oral Tablet Extended Release 24 Hour (toPROL XL)Indications:Uri otsubo cardiomyopathy TAKE 1/2 TABLET DAILY 45 Tablet 3 04/13/20 22 023 Discontinued documented as of this encounter (statuses as of 05/27/2023) Active Problems Problem Noted Date Diagnosed Date [...] as of this encounter (statuses as of 05/27/2023) Resolved Problems Problem Noted Date Diagnosed Date [...] 06/08/2016 07/31/2017 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 encounter 02/12/2012 04/27/2015 jail current use of ant icoagulant therapy 02/12/2012 04/27/2015 Overview: ICD-10 update of inactive term Other disorder of menstruati on and other abnormal bleeding from female genital tract 09/16/2007 04/27/2015 Uterine leiomyoma 09/16/2007 04/27/2015 documented as of this encounter (statuses as of 05/27/2023) Immunizations Name Administration Dates Next Due COVID-19 mRNA, LNP-s, No Pre serve, 2-Dose Series (piSociety) 05/08/2021,08/29/2020,08/08/2020 DTaP Dipth/Tet/Acell Pertussis (Infanrix), Peds 12/25/2017,10/30/2017,09/25/2017 [...] encounter Miscellaneous Notes * Telephone Encounter - Howie Chapa MD - 05/27/2023 10:46 AM EDTSigned Prescriptions: Disp Refills Metoprolol Succinate ER 25 MG Oral Tablet *45 Tab*3 Sig: TAKE 1/2 TABLET DAILY Authorizing Provider: HOWIE CHAPA * Telephone Encounter - LOVE Baltazar - 05/27/2023 10:39 AM EDTPending Prescriptions: Disp Refills Metoprolol Succinate ER 25 MG Oral Tablet *45 Tab*3 Sig: TAKE 1/2 TABLET DAILY * Telephone Encounter - LOVE Baltazar - 05/27/2023 10:38 AM EDT Did you pend patient's preferred pharmacy and medication before forwarding?yes Pharmacy: [id number] [place] Pending Prescriptions: Disp Refills Metoprolol Succinate ER 25 MG Oral Tablet*45 Tab*3 Sig: TAKE 1/2 TABLET DAILY Last Visit: 08/24/2022 (in office), Visit date not found (telemedicine) Next Visit: 06/11/2023 If no future appointments scheduled, and last appointment is greater than a year ago, please schedule patient for a follow-up appointment Last date the medication was ordered: 04-13-2022 Is this request for a controlled substance?No Urine Drug Screen:No results found. However, due to the size of the patient record, not all encounters were searched. Please check Results Review for a complete set of results. Patient Phone Numbers Labs: Lab Results Component Value Date/Time CREAT 0.8 05/21/2023 12:08 PM CREAT 0.9 08/31/2020 01:01 PM POTASSIUM 4.5 05/21/2023 12:08 PM POTASSIUM 4.0 08/31/2020 01:01 PM TSH 0.48 12/10/2022 08:15 AM TSH 3.02 08/31/2020 01:04 PM LDLCALC 210 (H) 08/20/2018 08:48 AM LDLDIRECT 75 04/17/2021 09:30 AM LDLDIRECT NOT APPLICABLE 08/20/2018 08:48 AM LDLDIRECT 131 (H) 10/24/2010 07:58 AM ALT 37 (H) 05/21/2023 12:08 PM ALT 28 08/31/2020 01:01 PM HGBA1C 4.6 12/10/2022 08:15 AM HGBA1C 4.7 08/15/2020 07:29 AM documented in this encounter Plan of Treatment Upcoming Encounters Date Type Department Care Team (Late st Contact Info) Description 06/05/2023 8:00 AM EDT Office Visit Interventional Pain Center, [facility] [address] [place] [address] Isatu Mitchell PA-C [address] [place] [address] 06/07/2023 9:00 AM EDT Laboratory Laboratory [facility] [address] [place] [phone] [place], Lab Scen[address] [place], [place] [address] 06/07/2023 9:30 AM EDT Office Visit Hematology/Oncology [facility] [place] [address] [place] [address] Emelyn Richard CRNP [address] [facility] [place] [address] 06/11/2023 3:00 PM EST Office Visit Cardiology, [facility] [address] [facility] [place] [address] Miya Jerez [facility]NP [facility] [place] [address] 06/18/2023 10:30 AM EST Laboratory Laboratory [facility] [address] [place] [phone] [place], Lab Scenery 200 [facility] [place], [place] [address] 06/18/2023 11:30 AM EST Hem/Onc Treatment Hematology/Oncology Treatment, [place] [address] [place], [place] [address] Patti, Chair 1 Hem Onc [facility] 200 [facility] [place], [place] [address] 06/18/2023 2:40 PM EST Telemedicine [facility]astroenterology, [facility] [place] [address] Syl Cohen, [address] [place] [address] 06/19/2023 1:00 PM EST Hem/Onc Treatment Hematology/Oncology Treatment, [place] [address] [facility], [place] [address] 06/20/2023 1:00 PM EST Hem/Onc Treatment Hematology/Oncology Treatment, [place] [address] [facility], [place] [address] 06/21/2023 1:00 PM EST Hem/Onc Treatment Hematology/Oncology Treatment, [place] [address] [facility], [place] [address] Patti, Chair 1 Hem Onc [address] [place] [address] 07/09/2023 1:00 PM EST Office Visit [facility] [place] [address] [facility] [place] [address] Rayna Solares PA-C 200 [facility] [place] [address] 08/13/2023 9:30 AM EST Office Visit Hematology/Oncology [facility] [address] [facility] [place] [address] Corbin Nielson MD 200 [facility] [place] [address] 11/06/2023 1:00 PM EDT Office Visit [facility] [address] [facility] [place] [address] Joe Peng, [address] [facility] [place], [place] [address] Scheduled Procedures Name Priority Associated Diagnoses Date/Ti me COLONOSCOPY FLEXIBLE PROXIMAL DIAGNOSTIC Recall History of colon polyps Health Maintenance Due Date Last Done Comments Zoster Vaccines (1 of 2) 01/03/1975 Hepatitis B (1 of 3 - Risk 3-dose series) 2016 DIABETES-EYE EXAM 11/25/2019 11/24/2018 Diabetic Foot Exam 01/10/2022 01/10/2021, 1 , 05/19/2018 COVID-19 Vaccine ( season) 2023 05/08/2021, 08/29/2020, 08/08/2020 HbA1c 06/12/2023 12/10/2022, 05/06, 12/04/2021, Additional history exists Depression Screening 06/19/2023 06/19/2022 TSH 12/11/2023 12/10/2022, 09/2021, 08/31/2020, Additional history exists Mammogram 03/20/2024 03/20/2023, 02/03, 02/21/2022, Additional history exists Albumin/Creatinine Ratio 04/09/2024 023, 12/04/2021, 08/15/2020, Additional history exists GFR 05/21/2024 05/21/2023, 05/05, 04/09/2023, Additional history exists COLONOSCOPY-EVERY 3 YRS AGES [...] as of this encounter Visit Diagnoses Diagnosis Takotsubo cardiomyopathy Takotsubo syndrome documented in this encounter Advance Directives Latest Code Status on File Code Status Date Activated Date Inactivated Comments Full Code 04/02/2017 4:50 AM 04/17/2017 3:02 PM This order reflects the patients wishes and were consensually agreed upon. Question Answer Comments Discussion of Advance Directives occurred with: Family Does the patient have a Living Will? No Does the patient have Health Care Power of Communications Officer? No Code Status History Code Status Date Activated Date Inactivated Comments Full Code 06/15/2016 5:56 PM 08/09/2016 8:19 PM This order reflects the patients wishes and were consensually agreed upon. Question Answer Comments Discussion of Advance Directives occurred with: Patient Does the patient have a Living Will? No Does the patient have Health Care Power of Communications Officer? No Full Code 05/15/2016 3:18 AM 06/08/2016 6:42 PM This order reflects the patients wishes and were consensually agreed upon. Question Answer Comments Discussion of Advance Directives occurred with: Not Discussed Care Teams Injection Molding Machine Setter Relationship Specialty Start Date End Date Joe Peng DO [address] [place] [address] PCP - General Family Medicine 05/19/18 documented as of this encounter
--- OUTSIDE RECORDS SUMMARY | 2023-08-22 00:30 | External Medical Summary ---
Author Name Unknown Address Unknown Organization [id number][facility] [place] [address] Laboratory Report Ordering Provider Test Date Status SOLO ABARCA 06/10/2023 12:13:11 Final Observation Date Value Abnormality Reference (Units ) Status SYNC LEUKOCYTES IN BLOOD BY AUTOMATED COUNT 06/10/2023 12:13:11 3.70 Below low normal 4.00-10.80 (K/uL) Final Segs 06/10/2023 12:13:11 49.5 40.0-75.0 (%) Final Lymphs % 06/10/2023 12:13:11 31.9 18.0-42.0 (%) Final Monos 06/10/2023 12:13:11 12.4 Above high normal 1.0-11.0 (%) Final Eosinophils 06/10/2023 12:13:11 5.4 0.0-6.0 (%) Final Basos 06/10/2023 12:13:11 0.8 0.0-2.0 (%) Final Absolute Segs 06/10/2023 12:13:11 1.83 1.80-7.70 (K/uL) Final Lymphs, absolute 06/10/2023 12:13:11 1.18 1.00-4.80 (K/ul) Final Monos, Abs 06/10/2023 12:13:11 0.46 0.00-1.10 (K/uL) Final Eos, Abs 06/10/2023 12:13:11 0.20 0.00-0.70 (K/uL) Final Basos, Abs 06/10/2023 12:13:11 0.03 0.00-0.20 (K/uL) Final Performing Location [facility] [place] [address]
--- OUTSIDE RECORDS SUMMARY | 2023-08-22 00:30 | External Medical Summary ---
Author Name Unknown Address Unknown Organization [id number]:[facility] [address] [place] [address] Laboratory Report Ordering Provider Test Date Status APRYL MARINELLI 06/03/2023 09:09:39 Final Observation Date Value Abnormality Reference (Units ) Status BUN 06/03/2023 09:09:39 9 6-20 (mg/dL) Final Creatinine 06/03/2023 09:09:39 0.7 0.5-1.0 (mg/dL) Final Glomerular filtration rate/1.73 sq M.predicted [Volume Rate/Area] in Serum, Plasma or Blood by Creatinine-based formula (CKD-EPI) 06/03/2023 09:09:39 >90 >=60 (mL/min) Final eGFR is calculated based on the CKD-EPI 2020 equation SODIUM 06/03/2023 09:09:39 142 135-146 (m mol/L) Final Potassium 06/03/2023 09:09:39 3.9 3.5-5.1 (m mol/L) Final Cl 06/03/2023 09:09:39 108 Above high normal 98 -107 (mmol/L) Final CO2 06/03/2023 09:09:39 27 22-32 (mmo l/L) Final Anion gap 06/03/2023 09:09:39 7 7-15 (mmol /L) Final Glucose 06/03/2023 09:09:39 81 70-120 (mg /dL) Final Albumin 06/03/2023 09:09:39 3.7 Below low normal 3.8 -5.0 (g/dL) Final AST (Aspartate aminotransferase) 06/03/2023 09:09:39 83 Above high normal 10-35 (U/L) Final Alk Phos 06/03/2023 09:09:39 269 Above high normal 35 -130 (U/L) Final Bilirubin, Total 06/03/2023 09:09:39 0.3 <=1 .2 (mg/dL) Final Calcium 06/03/2023 09:09:39 9.0 8.4-10.2 ( mg/dL) Final Protein 06/03/2023 09:09:39 6.5 6.0-8.3 (g /dL) Final ALT (Alanine aminotransferase) 06/03/2023 09:09:39 78 Above high normal 10-35 (U/L) Final Performing Location [facility] [address] [place] [address]
--- OUTSIDE RECORDS SUMMARY | 2023-08-22 00:30 | External Medical Summary ---
Author Name Unknown Address Unknown Organization K09:[facility] [place] [address] Laboratory Report Ordering Provider Test Date Status SOLO ABARCA 06/10/2023 12:13:11 Final Observation Date Value Abnormality Reference (Units ) Status WBC, Total 06/10/2023 12:13:11 3.70 Below low normal 4. 00-10.80 (K/uL) Final RBC 06/10/2023 12:13:11 3.00 3.85-5.15 (M/uL) Final Hemoglobin 06/10/2023 12:13:11 10.9 Below low normal 12 .0-15.3 (g/dL) Final HCT 06/10/2023 12:13:11 32.8 Below low normal 36. 0-45.2 (%) Final MCV 06/10/2023 12:13:11 109.3 81.5-97.5 (fL) Final MCH 06/10/2023 12:13:11 36.3 27.0-34.0 (pg) Final MCHC 06/10/2023 12:13:11 33.2 32.0-36.0 (g/dL) Final RDW 06/10/2023 12:13:11 13.9 11.5-15.5 (%) Final Platelets 06/10/2023 12:13:11 152 140-400 (K /uL) Final MPV 06/10/2023 12:13:11 9.0 6.6-11.1 ( fL) Final Performing Location [facility] [place] [address]
--- OUTSIDE RECORDS SUMMARY | 2023-08-22 00:30 | External Medical Summary ---
Author Name Unknown Address Unknown Organization K09:[facility] [place] [address] Laboratory Report Ordering Provider Test Date Status APRYL MARINELLI 06/03/2023 09:09:39 Final Observation Date Value Abnormality Reference (Units ) Status SYNC LEUKOCYTES IN BLOOD BY AUTOMATED COUNT 06/03/2023 09:09:39 5.73 4.00-10.80 (K/uL) Final Segs 06/03/2023 09:09:39 68.4 40.0-75.0 (%) Final Lymphs % 06/03/2023 09:09:39 20.6 18.0-42.0 (%) Final Monos 06/03/2023 09:09:39 6.1 1.0-11.0 (%) Final Eosinophils 06/03/2023 09:09:39 4.4 0.0-6.0 (%) Final Basos 06/03/2023 09:09:39 0.5 0.0-2.0 (%) Final Absolute Segs 06/03/2023 09:09:39 3.92 1.80-7.70 (K/uL) Final Lymphs, absolute 06/03/2023 09:09:39 1.18 1.00-4.80 (K/ul) Final Monos, Abs 06/03/2023 09:09:39 0.35 0.00-1.10 (K/uL) Final Eos, Abs 06/03/2023 09:09:39 0.25 0.00-0.70 (K/uL) Final Basos, Abs 06/03/2023 09:09:39 0.03 0.00-0.20 (K/uL) Final Performing Location [facility] [place] [address]
--- OUTSIDE RECORDS SUMMARY | 2023-08-22 00:30 | External Medical Summary ---
Author Name Unknown Address Unknown Organization K09:[facility] [place] [address] Laboratory Report Ordering Provider Test Date Status APRYL MARINELLI 06/03/2023 09:09:39 Final Observation Date Value Abnormality Reference (Units ) Status WBC, Total 06/03/2023 09:09:39 5.73 4.00-10.8 0 (K/uL) Final RBC 06/03/2023 09:09:39 2.99 3.85-5.15 (M/uL) Final Hemoglobin 06/03/2023 09:09:39 10.9 Below low normal 12 .0-15.3 (g/dL) Final HCT 06/03/2023 09:09:39 32.3 Below low normal 36. 0-45.2 (%) Final MCV 06/03/2023 09:09:39 108.0 81.5-97.5 (fL) Final MCH 06/03/2023 09:09:39 36.5 27.0-34.0 (pg) Final MCHC 06/03/2023 09:09:39 33.7 32.0-36.0 (g/dL) Final RDW 06/03/2023 09:09:39 12.9 11.5-15.5 (%) Final Platelets 06/03/2023 09:09:39 88 Below low normal 140 -400 (K/uL) Final MPV 06/03/2023 09:09:39 9.5 6.6-11.1 ( fL) Final Performing Location [facility] [place] [address]
--- OUTSIDE RECORDS SUMMARY | 2023-08-22 00:30 | External Medical Summary | Summary of Care ---
Author Name Unknown Organization [facility] Address [address] [place] [address] Phone [phone] Care Team Providers Care Parts Room Assistant Name Role Phone Joe Peng DO Primary Care Provider [phone] Reason for Visit * Reason Onset Date Comments Test Results Lab 06/03/2023 Encounter Details Date Type Department Care Team (Late st Contact Info) Description 06/03/2023 Telephone Hematology/Oncology [facility] [place] [address] [facility] [place] [address] Corbin Nielson MD 200 [place] [address] Test Results Lab Allergies Active Allergy Reactions Criticality Noted Date Comments Amoxicillin Nausea/vomiting 11/14/2015 Penicillins Nausea/vomiting Low 08/12/2007 tolerated cephalosporins in past Other reaction(s): Nausea Only Other reaction(s): "makes me nervous", Nausea documented as of this encounter (statuses as of 06/03/2023) Medications Medication Sig Dispensed Refills Start Date [...] Active Diclofenac Sodium 1 % External Gel (Voltaren)Indicatio ns:Hip pain, left,Lumbar degenerative disc disease Apply topically to affected area 3 times a day as needed (pain). 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 Sees Emelyn in office on 06/07/23. Sent patient internetstoresG message to notify, patient is active. ----- Message from Corbin Nielson MD sent at 06/03/2023 11:14 AM EDT ----- Increase LFT and low plat. Repeat blood test before next chemo documented in this encounter Plan of Treatment Upcoming Encounters Date Type Department Care Team (Late st Contact Info) Description 06/05/2023 8:00 AM EDT Office Visit Interventional Pain Center, [facility] [address] [place] [address] Isatu Mitchell PA-C [address] [place] [address] 06/07/2023 9:30 AM EDT Office Visit Hematology[facility]cology [facility] [address] [facility] [address] [place] [address] Emelyn Richard CRNP [address] [place] [address] 06/11/2023 3:00 PM EST Office Visit Cardiology, [facility] [address] [place] [address] Miya Jerez CRNP [address] [place] [address] 06/18/2023 10:30 AM EST Laboratory Laboratory [facility] [place] [address] [place] [phone] Patti, Lab [facility] [address] [place] [address] 06/18/2023 11:30 AM EST Hem/Onc Treatment Hematology/Oncology Treatment, [place] 200 [facility], [place] [address] Patti, Chair 1 Hem Onc [place] [address] [place] [facility] [place] [address] 06/18/2023 2:40 PM EST Telemedicine Gastroenterology, [facility] [address] [place] [address] Syl Cohen DO [address] [place] [address] 06/19/2023 1:00 PM EST Hem/Onc Treatment Hematology[address] [address] 06/20/2023 1:00 PM EST Hem/Onc Treatment Hematology/Oncology Treatment, [address], [place] [address] 06/21/2023 1:00 PM EST Hem/Onc Treatment Hematology/Oncology Treatment, [address], [place] [address] Patti, Chair 1 Hem Onc [facility] 200 [facility] [place] [address] 07/09/2023 1:00 PM EST Office Visit Family Practice [facility] [place] [address] [place], [place] [address] Rayna Solares PA-C [address] [place] [address] 08/13/2023 9:30 AM EST Office Visit Hematology/Oncology [facility] 200 [facility] [place] [address] Corbin Nielson MD 200 [facility] [place] [address] 11/06/2023 1:00 PM EDT Office Visit Family Practice [facility] [place] [address] [facility] [place] [address] Joe Peng DO 200 [facility] [place] [address] Scheduled Procedures Name Priority Associated Diagnoses Date/Ti [...] 12/11/2023 12/10/2022, 05/09/2021, 08/31/2020, Additional history exists Mammogram 03/20/2024 03/20/2023, [...] the patient have Health Care Power of Senior Environmental Technician? No Code Status History Code Status Date Activated Date Inactivated Comments Full Code 06/15/2016 5:56 PM 08/09/2016 8:19 PM This order reflects the patients wishes and were consensually agreed upon. Question Answer Comments Discussion of Advance Directives occurred with: Patient Does the patient have a Living Will? No Does the patient have Health Care Power of Senior Environmental Technician? No Full Code 05/15/2016 3:18 AM 06/08/2016 6:42 PM This order reflects the patients wishes and were consensually agreed upon. Question Answer Comments Discussion of Advance Directives occurred with: Not Discussed Care Teams Parts Room Assistant Relationship Specialty Start Date End Date Joe Peng DO [address] [place] [address] PCP - General Family Medicine 05/19/18 documented as of this encounter
--- OUTSIDE RECORDS SUMMARY | 2023-08-22 00:30 | External Medical Summary | Summary of Care ---
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 120 Capsule 5 3 Active HYDROcodone-Acetam inophen 5-325 MG Oral [...] dissolve on tongue. 30 Tablet 2 3 06/02/20 23 Discontin ued(Refil l) documented as of this [...] mRNA, LNP-s, No Pre serve, 2-Dose Series (Lowfoot) 05/08/2021,08/29/2020,08/08/2020 DTaP Dipth/Tet/Acell Pertussis (Infanrix), Peds 12/25/2017,10/30/2017,09/25/2017 [...] AM EDT Office Visit Interventional Pain Center, [facility] [address] [place] [address] Isatu Mitchell PA-C [address] [place] [address] 06/07/2023 9:30 AM EDT Office Visit Hematology/Oncology [facility] [place] [address] [place] [address] Emelyn Richard CRNP [address] [place] [address] DOLLYGOOD[place]LLOW [place] [address] 06/11/2023 3:00 PM EST Office Visit Cardiology, [facility] [address] [place] [address] Miya Jerez CRNP [address] [place] [address] 06/18/2023 10:30 AM EST Laboratory Laboratory [facility] [place] [address] [place] [phone] Patti Lab [place] [address] [address] [facility] [place] [address] 06/18/2023 11:30 AM EST Hem/Onc Treatment Hematology/Oncology Treatment, [place] [address] [facility], [place] [address] Patti, Chair 1 Hem Onc Scenery [address] [place], [place] [address] 06/18/2023 2:40 PM EST Telemedicine Gastroenterology, [facility] [address] [place] [address] Syl Cohen, DO [address] [place] [address] 06/19/2023 1:00 PM EST Hem/Onc Treatment Hematology/Oncology Treatment, [place] [address] [facility], [place] [address] 06/20/2023 1:00 PM EST Hem/Onc Treatment Hematology/Oncology Treatment, [place] [address] [facility], [place] [address] 06/21/2023 1:00 PM EST Hem/Onc Treatment Hematology/Oncology Treatment, [place] [address] [facility], [place] [address] Patti, Chair 1 Hem Onc Scenery [address] [place], [place] [address] 07/09/2023 1:00 PM EST Office Visit [facility] [address] [place], [place] [address] Rayna Solares PA-C [address] [place], [place] [address] 08/13/2023 9:30 AM EST Office Visit Hematology/Oncology [facility] [address] [place], [place] [address] Corbin Nielson MD [address] [place], [place] [address] 11/06/2023 1:00 PM EDT Office Visit [facility] [address] [place], [place] [address] Joe Peng, DO [address] [place] [address] Pending Results Name Type Priority Associated Diagnoses Date /Time CBC WITH WBC DIFFERENTIAL Lab STAT 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 No Code Status History Code Status Date Activated Date Inactivated Comments Full Code 06/15/2016 5:56 PM 08/09/2016 8:19 PM This order reflects the patients wishes and were consensually agreed upon. Question Answer Comments Discussion of Advance Directives occurred with: Patient Does the patient have a Living Will? No Does the patient have Health Care Power of Weights And Measures Sealer? No Full Code 05/15/2016 3:18 AM 06/08/2016 6:42 PM This order reflects the patients wishes and were consensually agreed upon. Question Answer Comments Discussion of Advance Directives occurred with: Not Discussed Care Teams Aviation Electronics Technician Relationship Specialty Start Date End Date Joe Peng DO [address] [place] [address] PCP - General Family Medicine 05/19/18 documented as of this encounter
--- OUTSIDE RECORDS SUMMARY | 2023-08-22 00:30 | External Medical Summary ---
Author Name Unknown Address Unknown Organization K[facility] [place] [address] Laboratory Report Ordering Provider Test Date Status APRYL MARINELLI 06/03/2023 09:09:39 Final Observation Date Value Abnormality Reference (Units ) Status Nucleated erythrocytes/100 leukocytes [Ratio] in Blood by Automated count 06/03/2023 09:09:39 Final Performing Location [facility] [place] [address]
--- OUTSIDE RECORDS SUMMARY | 2023-08-22 00:30 | External Medical Summary | Summary of Care ---
Author Name Unknown Organization [facility] Address [address] [place] [address] Phone [phone] Care Team Providers Care Butter Liquefier Name Role Phone Joe Peng DO Primary Care Provider [phone] Reason for Visit * Evaluate & Treat - Unlimited Visits (Within 10 days (routine)) - Authorized Specialty Diagnoses / Procedures Referred By Contac t Referred To Contact Pain Management / Pain Medicine Diagnoses Osteoarthritis of spine with radiculopathy, lumbar region Yovani Whitten MD [address] [facility] [place] [address] Referral ID Status Reason Start Date Expiration Date Visits Requested Visits Authorized [id number] Authorized Specialty Services Required 04/30/2023 999 [id number] Encounter Details Date Type Department Care Team (Late st Contact Info) Description 06/05/2023 8:00 AM EDT Office Visit Interventional Pain Center, [facility] [address] [place] [address] Isatu Mitchell PA-C [address] [place] [address] Lumbar radicular pain*; Chronic left-sided low back pain with left-sided sciatica Allergies Active Allergy Reactions Criticality Noted Date Comments Amoxicillin Nausea/vomiting 11/14/2015 Penicillins Nausea/vomiting Low 08/12/2007 tolerated cephalosporins in past Other reaction(s): Nausea Only Other reaction(s): "makes me nervous", Nausea documented as of this encounter (statuses as of 06/05/2023) Medications Medication Sig Dispensed Refills Start Date [...] on tongue. 30 Tablet 2 3 Active Diclofenac Sodium 1 % External Gel (Voltaren)Indicati ons:Hip pain, left,Lumbar degenerative disc disease Apply topically to affected area 3 times a day as needed (pain). 1 g 0 3 06/05/20 23 Discontin ued(Patie nt preferenc e/discont inuation) documented as of this encounter (statuses as of 06/05/2023) Active Problems Problem Noted Date Diagnosed Date [...] as of this encounter (statuses as of 06/05/2023) Resolved Problems Problem Noted Date Diagnosed Date [...] as of this encounter (statuses as of 06/05/2023) Immunizations Name Administration Dates Next Due COVID-19 [...] as of this encounter Progress Notes * Isatu Mitchell PA-C - 06/05/2023 8:01 AM EDT GENERAL HISTORY & PHYSICAL EXAMINATION - Anesthesia and Pain Service Name: Codi Soto Location: [facility], [facility] REFERRING PHYSICIAN: Yovani Whitten MD Thank you for referring Codi Soto. CHIEF COMPLAINT: Low back and LE pain HPI: Codi Soto is a 68 year old female who complains of low back pain that radiates to L anterior and lateral thigh, lateral clark. This pain started number of years ago, without preceding injury. Progressive pain in the past year. Followed with orthopedics for this complaint. Recent L intra-articular hip injection which has reduced groin pain, made no change to pain in low back or LE pain. Orthopedics did updated L spine MRI, personally reviewed 05/24/23 - levoscoliotic curvature, disc bulges through out causing mild central stenosis, moderate to severe L foraminal narrowing L5/S1, moderate L foraminal narrowing L2/3 thru L4/5, no compression fractures. Notes mild relief of LE pain with gabapentin. Completed physical therapy with [facility], [place], does continue daily home stretching program with modest pain reduction. Symptoms occur daily. Describes pain as "sharp, ache." Pain is constant, rated 5/10 on average, increases to 9/10 at worst. Aggravating factors include: prolonged sitting. Alleviating factors include: moist heat. Admits associated weakness - difficulty walking dog. Denies LE paresthesia. Chronic diarrhea, denies bowel incontinence. Wears Depends. Denies bladder incontinence. Denies hx spine surgery or injections. 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 Significant past medical hx includes: thrombocytopenia, cardiomyopathy, acute myeloid leukemia, depression, RASTA. Currently undergoing chemotherapy, Dr. Nielson. Most recent platelet count 88, 06/03/23 --- updated labs scheduled 06/18/23 Previous three platelet count: 186, 293, 225 Current medications used for pain: gabapentin, tylenol, voltaren gel, hydrocodone-acetaminophen. Anticoagulation therapy: no Diabetic: no Presents with , Kavin. 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 Past Medical History - Pertinent Findings: + coagulopathy PAST SURGICAL HISTORY: Past Surgical History: Procedure Laterality Date AMPUTATION OF TOE Left 06/03/2017 AMPUTATION TOE METATARSOPHALANGEAL JOINT performed by Chandana Raymond MD at OR [facility] [place] BONE MARROW ASPIRATION 08/02/2016 BONE MARROW BIOPSY 08/02/2016 COLONOSCOPY, DIAGNOSTIC (RECTUM) 06/04/2014 diverticulosis, repeat 5 yrs COLONOSCOPY, DIAGNOSTIC (RECTUM) 05/18/2019 adenomatous & hyperplastic polyp, repeat 3 yrs/[facility] COLONOSCOPY, DIAGNOSTIC (RECTUM) 05/24/2022 benign adenomatous polyps, repeat 3 yrs / COLONOSCOPY FLEXIBLE PROXIMAL DIAGNOSTIC performed by Syl Cohen DO at ENDOSCOPY [facility] [address] EGD, FLEXIBLE, DIAGNOSTIC 01/11/2016 normal bx/ESOPHAGOGASTRODUODENOSCOPY (EGD), FLEXIBLE, TRANSORAL, DIAGNOSTIC performed by Cam Ellis MD at ENDOSCOPY [facility] [address] EGD, FLEXIBLE, DIAGNOSTIC 05/18/2019 normal bx/[facility] FISSURECTOMY W/ SPHINCTEROTOMY INFORMATION stem cell transplant , 12/19 IR BIOPSY 12/28/2015 TRANSCATHETER BIOPSY performed by Haris Tim MD at RADIOLOGY [facility] [place] MISCELLANEOUS ORDER ([facility] ONLY) N/A 04/01/2017 REMOVAL OF [place] CATHETER [facility] DR. DAVIS 04/01/17 TMJ ARTHROSCOPY DISC REPOSIT FAMILY HISTORY: Family History Problem Relation Age of Onset Lung Disorder Mother COPD Cancer Mother Head and Neck CA Stroke Mother carotid stenosis Esophageal cancer Father Heart attack Father Hypertension Father Thyroid Disorder Sister Other (Other) Sister alpha 1 antryipsin deficiency Breast Cancer Grandmother (Maternal) Heart Disorder Grandmother (Paternal) Heart Disorder Grandfather (Paternal) Breast Cancer Cousin (Maternal) 30s Family History - Pertinent Findings: (-) clotting disorder SOCIAL HISTORY: Social History Tobacco Use Smoking status: Never Smokeless tobacco: Never Vaping Use Vaping Use: Never used Substance Use Topics Alcohol use: Yes Comment: rarely Drug use: No CURRENT MEDICATIONS: Note that discontinued and completed medications (per the MAR) continue to display for 24 hours. Ordered medications to be given in the future also display. Current Outpatient Medications Medication Sig Dispense Refill [...] by mouth every 6 hours as needed. Diclofenac Sodium 1 % External Gel (Voltaren) Apply topically to affected area 3 times a day as needed (pain). 1 g 0 Gabapentin 300 MG Oral Capsule (Neurontin) Take [...] No current facility-administered medications for this visit. ALLERGIES: Amoxicillin and Penicillins ROS: Constitutional: Negative for fatigue, fever, appetite change, unexplained weight loss. ENT: Negative for hearing loss, sore throat. Respiratory: Negative for cough, shortness of breath, dyspnea. Musculoskeletal: Negative for neck, mid-back pain. + low back and L LE pain - see HPI Neurological: Negative for headaches, seizures. + paresthesias B LE - see HPI Genitourinary: Negative for dysuria, urinary frequency, hematuria. Hematologic/ Lymphatic: Negative for easy bleeding, bruising, lymphadenopathy. Gastrointestinal: Negative for abdominal pain, nausea, vomiting, constipation, diarrhea. Cardiovascular: Negative for chest pain, palpitations, ankle swelling, orthopnea. PHYSICAL EXAMINATION: Most Recent Vital Signs: There were no vitals filed for this visit. General Appearance: Patient appears to be about stated age, pleasant and cooperative with normal affect. HEENT: head normocephalic, pupils equal round and reactive to light and accommodation, EOMI, hearing intact and equal bilaterally, and nose clear, throat normal Chest: No gross abnormality. Nonlabored breathing Lumbar Spine: Normal lumbar lordatic curvature is present. Skin is intact without gross abnormalities. No masses palpable. Midline and B paravertebral musculature nontender. B sacroiliac joint nontender. No evidence of myofascial trigger points. Limited active ROM with flexion and extension of the lumbar spine. Lower Extremity Strength: Hip Flexion 5/5 bilaterally. Hip Abductor 5/5 bilaterally. Hip Adductor 5/5 bilaterally. Extensor Hallicus Longus 5/5 bilaterally. Deep Tendon Reflex: Patellar: 2/4 bilaterally. Achilles: 1/4 bilaterally. Low Back Provocative Testing: YOUNG test: negative bilaterally. Straight Leg Raise Test: positive L, negative R. Lumbar Facet Loading: positive bilaterally. Sensation: Dermatomal sensation not formally tested. Grossly normal and symmetric unless otherwise specified. Gait: Intact, no sign of ataxia. Ambulates without assistance. IMAGING: MRI L SPINE WO CONTRAST - 05/24/2023 4:21 pm There is levoscoliosis of the lumbar spine. Multilevel endplate degenerative changes are noted in the lumbar spine. There is diffuse intravenous appearance of the bone marrow in the visualized axial skeleton. A small vertebral hemangioma is seen involving the T12 vertebral body. A Schmorl's node isseen involving the superior endplate of the L3 vertebra.. There are no compression fractures. The conus medullaris terminates at the level of L1-L2. The distal spinal cord signal intensity is normal.Multilevel disc desiccation is seen in the lumbar spine with associated multilevel loss of disc height.. A few small bilateral renal cysts are noted. The aorta is normal. L1-L2: Faok-jw-ltvsgowv disc bulge. There is mild bilateral facet arthropathy. There is mild bilateral neuroforaminal stenosis. There is no spinal canal stenosis. L2-L3: Moderate disc bulge. There is moderate bilateral facet arthropathy. There is moderate right and mild left neuroforaminal stenosis. There is minimal spinal canal stenosis. L3-L4: Cjwl-ye-tsohmptu disc bulge. There is owqn-fl-eblztayt bilateral facet arthropathy. There ismoderate bilateral neuroforaminal stenosis. There is ligamentum flavum infolding and epidural lipomatosis. There is mild spinal canal stenosis. L4-L5: Moderate disc bulge. There is moderate bilateral facet arthropathy. There is moderate left and mild right neuroforaminal stenosis. There is ligamentum flavum infolding. There is mild spinal canal stenosis. L5-S1: Mild disc bulge. There is moderate to severe bilateral facet arthropathy. There is moderate to severe left and mild right neuroforaminal stenosis. There is no spinal canal stenosis. IMPRESSION 1. Levoscoliosis of the lumbar spine, likely secondary to degenerative changes. 2. Multilevel degenerative changes in the lumbar spine as described above, more pronounced at L3-L4and L4-L5 levels with resultant mild spinal canal stenosis and jqaj-fk-keksiwbp bilateral neural foraminal stenosis at these levels. ASSESSMENT: Lumbar radicular pain, L LE PLAN: Persistent low back pain that radiates to L LE, follows L5 pattern. Mild relief with conservative care including medication management, physical therapy, home stretching program. Neurologically intact. Personally reviewed L spine MRI 05/24/23 - levoscoliotic curvature, disc bulges through out causing mild central stenosis, moderate to severe L foraminal narrowing L5/S1, moderate L foraminal narrowing L2/3 thru L4/5, no compression fractures. Discussed radicular pain and consideration of FARZANEH using fluoroscopy. Risks including, but not limited to, bleeding, infection, worsening pain, failure toalleviate pain, nerve injury and possible steroid side effects were reviewed. Will message oncologist, Dr. Nielson, regarding possible steroid injection with concurrent chemotherapy. Will review upcoming repeat labs, most recent platelet count 88, Previous three results were greater than 180. 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 Due to severity and duration of symptoms, will tentatively schedule left interlaminar FARZANEH L5/S1. Isatu Mitchell PA-C 06/05/2023 documented in this encounter Plan of Treatment Upcoming Encounters Date Type Department Care Team (Latest Contact Info) Description 06/07/2023 9:30 AM EDT Office Visit Hematology/Oncolog y [facility] [place] 200 [facility] [place] [address] [facility] [place] [address] 06/11/2023 3:00 PM EST Office Visit Cardiology, [facility] [address] [facility] [place] [address] Miya Jerez CRNP [address] [place] [address] 06/18/2023 10:30 AM EST Laboratory Laboratory [facility] [place] [address] [place] [phone] Patti, Lab [facility] [address] [place] [address] 06/18/2023 11:30 AM EST Hem/Onc Treatment [facility] [place] [facility] [address] Patti, Chair 1 Hem Onc [facility] [address] [facility] [place] [address] 06/18/2023 2:40 PM EST Telemedicine Gastroenterology, [facility] [address] [facility] [place] [address] Syl Cohen, DO [address] [place] [address] 06/19/2023 1:00 PM EST Hem/Onc Treatment Hematology/Oncolog [address], [address] [address] 06/20/2023 1:00 PM EST Hem/Onc Treatment Hematology/Oncolog y Treatment, [address], [place] [address] 06/21/2023 1:00 PM EST Hem/Onc Treatment Hematology/Oncolog y Treatment, [address], [place] [address] Patti, Chair 1 Hem Onc [facility] [address] [facility] [place] [address] 07/09/2023 1:00 PM EST Office Visit Family Practice [facility] [place] [address] [place] [address] Rayna Solares PA-C 200 [facility] [place] [address] 08/12/2023 11:20 AM EST Hospital Encounter OR [facility], Operating Room [facility] [address] [place] [phone] Stiven Ram, DO [address] [place] [address] 08/12/2023 11:20 AM EST - 08/12/2023 11:45 AM EST Surgery OR [facility], Operating Room [facility] [address] [place] [phone] Stiven Ram, DO [address] [place] [phone] INJECTION SPINE LUMBAR OR SACRAL 08/13/2023 9:30 AM EST Office Visit Hematology/Oncolog y [facility] [place] [address] [facility] [place] [address] Corbin Nielson MD 200 [facility] [place] [address] 11/06/2023 1:00 PM EDT Office Visit Family Practice [facility] [place] 200 [facility] [place] [address] Joe Peng, DO 200 [facility] [place] [address] Scheduled Orders Name Type Priority Associated Diagnoses Orde r Schedule INJECT DX/THER SUBSTANCE INTERLAMINAR LUMBAR/SACRAL W IMAGE GUIDE Procedures Routine Lumbar radicular pain Expected: 06/19/2023, Expires: 07/05/2024 Scheduled Procedures Name Priority Associated Diagnoses Date/Ti [...] of this encounter Visit Diagnoses Diagnosis Lumbar radicular pain- Primary Thoracic or lumbosacral neuritis or radiculitis, unspecified Chronic left-sided low back pain with left-sided sciatica Lumbar radiculopathy Thoracic or lumbosacral neuritis or [...] the patient have Health Care Power of Ambulance Paramedic? No Code Status History Code Status Date Activated Date Inactivated Comments Full Code 06/15/2016 5:56 PM 08/09/2016 8:19 PM This order reflects the patients wishes and were consensually agreed upon. Question Answer Comments Discussion of Advance Directives occurred with: Patient Does the patient have a Living Will? No Does the patient have Health Care Power of Ambulance Paramedic? No Full Code 05/15/2016 3:18 AM 06/08/2016 6:42 PM This order reflects the patients wishes and were consensually agreed upon. Question Answer Comments Discussion of Advance Directives occurred with: Not Discussed Care Teams Butter Liquefier Relationship Specialty Start Date End Date Joe Peng DO [address] [place] [address] PCP - General Family Medicine 05/19/18 documented as of this encounter
--- OUTSIDE RECORDS SUMMARY | 2023-08-22 00:30 | External Medical Summary | Summary of Care ---
Author Name Unknown Organization [facility] Address [address] [place] [address] Phone [phone] Care Team Providers Care Road Boss Name Role Phone Brenda Peng DO Primary Care Provider [phone] Reason for Visit * Reason Onset Date Comments Medication Refill 06/02/2023 Encounter Details Date Type Department Care Team (Late st Contact Info) Description 06/02/2023 Refill Family Practice [facility] [place] 200 [facility] [place] [address] Brenda Peng DO 200 [place] [address] Acute myeloid leukemia in remission (HCC) Allergies Active Allergy Reactions Criticality [...] on tongue. 30 Tablet 2 3 Active Ondansetron 8 MG Oral Tablet [...] mRNA, LNP-s, No Pre serve, 2-Dose Series ([facility]) 05/08/2021,08/29/2020,08/08/2020 DTaP Dipth/Tet/Acell Pertussis (Infanrix), Peds 12/25/2017,10/30/2017,09/25/2017 [...] encounter Miscellaneous Notes * Telephone Encounter - Aminah Niño RPh - 06/03/2023 9:17 AM EDTSigned Prescriptions: Disp Refills Ondansetron 8 MG Oral Tablet [id number] Tab*2 Sig: Place 1Tablet on tongue every 8 hours as needed for Nausea. dissolve on tongue.Authorizing Provider: BRENDA PENG User: AMINAH NIÑO ------ documented in this encounter Plan of Treatment Upcoming Encounters Date Type Department Care Team (Late st Contact Info) Description 06/05/2023 8:00 AM EDT Office Visit [facility], [facility] [address] [place] [address] Isatu Mitchell PA-C [address] [place] [address] 06/07/2023 9:30 AM EDT Office Visit Hematology/Oncology [facility] [place] [facility] [address] Emelyn [facility] CRNP [facility] [place] [address] 06/11/2023 3:00 PM EST Office Visit Cardiology, [facility] 132 [place] [address] Miya Jerez CRNP 132 [facility] [address] 06/18/2023 10:30 AM EST Laboratory Laboratory Sc[facility] [place] [address] [place] [phone] Patti, Lab Scenery [address] [place] [address] 06/18/2023 11:30 AM EST Hem/Onc Treatment [facility]ematology[facility], [place] [facility] [address] Patti, Chair 1 Hem Onc Scenery 200 [facility] [place] [address] 06/18/2023 2:40 PM EST Telemedicine [facility]astroenterology, [facility] [address] Syl Cohen, DO 132 [facility] [address] 06/19/2023 1:00 PM EST Hem/Onc Treatment Hematology[facility]Oncology Treatment, [place] [facility] [address] 06/20/2023 1:00 PM EST Hem/Onc Treatment Hematology/Oncology [address], [address] [address] 06/21/2023 1:00 PM EST Hem/Onc Treatment Hematology/Oncology Treatment, [place] [facility] [address] Patti, Chair 1 Hem Onc Scenery [address] [place] [address] 07/09/2023 1:00 PM EST Office Visit [facility] [address] [place] [address] Rayna Solares PA-C 200 [facility] [place] [address] 08/13/2023 9:30 AM EST Office Visit Hematology/Oncology [facility] [place] 200 [facility] [place] [address] Corbin Nielson MD 200 [facility] [place] [address] 11/06/2023 1:00 PM EDT Office Visit [facility] [place] 200 [facility] [place] [address] Brenda Peng DO 200 [facility] [place] [address] Scheduled Procedures Name Priority Associated Diagnoses Date/Ti [...] 12/04/2021, 08/15/2020, Additional history exists GFR 05/21/2024 06/03/2023, 05/05, 05/14/2023, Additional history exists COLONOSCOPY-EVERY [...] Visit Diagnoses Diagnosis Acute myeloid leukemia in remission (HCC) Acute myeloid leukemia in remission documented in this encounter Advance Directives Latest Code Status on File Code Status Date Activated Date Inactivated Comments Full Code 04/02/2017 4:50 AM 04/17/2017 3:02 PM This order reflects the patients wishes and were consensually agreed upon. Question Answer Comments Discussion of Advance Directives occurred with: Family Does the patient have a Living Will? No Does the patient have Health Care Power of Freight Caller? No Code Status History Code Status Date Activated Date Inactivated Comments Full Code 06/15/2016 5:56 PM 08/09/2016 8:19 PM This order reflects the patients wishes and were consensually agreed upon. Question Answer Comments Discussion of Advance Directives occurred with: Patient Does the patient have a Living Will? No Does the patient have Health Care Power of Freight Caller? No Full Code 05/15/2016 3:18 AM 06/08/2016 6:42 PM This order reflects the patients wishes and were consensually agreed upon. Question Answer Comments Discussion of Advance Directives occurred with: Not Discussed Care Teams Road Boss Relationship Specialty Start Date End Date Brenda Peng DO [address] [place] [address] PCP - General Family Medicine 05/19/18 documented as of this encounter
--- OUTSIDE RECORDS SUMMARY | 2023-08-22 00:30 | External Medical Summary ---
Author Name Unknown Address Unknown Organization K09:[facility] [address] Laboratory Report Ordering Provider Test Date Status APRYL MARINELLI 06/03/2023 09:09:39 Final Observation Date Value Abnormality Reference (Units ) Status Magnesium 06/03/2023 09:09:39 1.6 1.5-2.6 (m g/dL) Final Performing Location [facility] [place] [address]
--- OUTSIDE RECORDS SUMMARY | 2023-08-22 00:30 | External Medical Summary | Summary of Care ---
Author Name Unknown Organization [facility] Address [address] [place] [address] Phone [phone] Care Team Providers Care Community Artist Name Role Phone Joe Peng DO Primary Care Provider [phone] Reason for Visit * Reason Comments Follow Up Encounter Details Date Type Department Care Team (Late st Contact Info) Description 06/07/2023 9:30 AM EDT Office Visit Hematology/Oncology [facility] 200 [place] [address] Emelyn Richard CRNP [address] [place], [place] [phone] Acute myeloid leukemia not having achieved remission (HCC)*; Leukemia cutis ; Encounter for antineoplastic chemotherapy; Hypomagnesemia Allergies Active Allergy Reactions Criticality Noted Date Comments Amoxicillin Nausea/vomiting 11/14/2015 Penicillins Nausea/vomiting Low 08/12/2007 tolerated cephalosporins in past Other reaction(s): Nausea Only Other reaction(s): "makes me nervous", Nausea documented as of this encounter (statuses as of 06/08/2023) Medications Medication Sig Dispensed Refills Start Date [...] as of this encounter (statuses as of 06/08/2023) Active Problems Problem Noted Date Diagnosed Date [...] as of this encounter (statuses as of 06/08/2023) Resolved Problems Problem Noted Date Diagnosed Date [...] as of this encounter (statuses as of 06/08/2023) Immunizations Name Administration Dates Next Due COVID-19 [...] Sign Reading Time Taken Comments Blood Pressure 108/73 06/07/2023 9:41 AM EDT Pulse 86 06/07/2023 9:41 AM EDT Temperature 36.6 C (97.8 F) 06/07/2023 9:41 AM ED T Respiratory Rate 16 06/07/2023 9:41 AM EDT Oxygen Saturation 91% 06/07/2023 9:41 AM EDT Inhaled Oxygen Concentration - - Weight 51.6 kg (113 lb 11.2 oz) 06/07/2023 9:41 AM EDT Height - - Body Mass Index 18.08 04/09/2023 9:25 AM EDT documented in this [...] Progress Notes * Emelyn Richard CRNP - 06/07/2023 9:30 AM EDT Hematology/Oncology Outpatient Clinic note [facility] [place] [address] 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 04/2019 she was noted to have worsening [...] than active disease. Subsequently she underwent to 05/14 MUD peripheral stem-cell allogeneic hematopoietic stem cell [...] decitabine and venotoclax. She was seen at [facility] for follow-up in 02/2019 and [...] no increase in blasts. Erythroid precursors show live truck technician maturation without cytologic atypia. Core biopsy Sections (H&E and Giemsa stains): H&E and Giemsa stained sections show trabecular bone with hypocellular marrow (15-20 %). Myeloid precursors are decreased and show live truck technician maturation. Erythroid precursors are increased and show live truck technician maturation. Megakaryocytes are adequate with unremarkable morphology. [...] lower extremity. She was also seen at [facility] for follow-up and recommended to continue the same treatment and continue venetoclax as far as the ANC is equal to or more than 500. She completed the radiation therapy to right lower extremity with improvement in the lesion which are due to leukemia cutis. Notice new skin lesion on the right upper extremity and shoulder area. She was seen at to [facility] and recommend radiation therapy. She was seen by Dr. Dockery from the radiation oncology and received radiation therapy. She completed to radiation therapy to the upper extremity and shoulder area on the right side. She also had telemedicine appointment with the Dr. Givens at to [facility] and the decision was to continue the same treatment for now. Because of the pancytopenia venetoclax was discontinued and it was advised by the Dr. Givens from [facility]. Currently she is receiving Dacogen single agent. Skin, left clark: Leukemia cutis (see comment) 05/25/2020 Comment: Atypical mononuclear cells permeate the reticular dermis. These are (+) for CD68 and lysozyme, and negative for MPO, CD34, and CD117. She was also seen by Dr. Stout at [facility] and had bone marrow biopsy and aspirate done. According to the patient she was told that the bone marrow biopsy is negative for relapse ofleukemia. The recommendation from Dr. Cobb is to continue Dacogen as far as [...] outlined above. Currently here for f/u visit today and consideration for C49D1 of treatment. Last episode of leukemia cutis was in November on her left forearm. Only lasted for a couple days and then resolved on its own. Continues utilizing fiber gummies and bowels are moving normally. Experiences intermittent mild nausea that resolves with Zofran. Denies any signs of abnormal bleeding. Did have COVID at the beginning of the year but this resolved quickly with mild symptoms. Then developed RSV and struggled with this for about two weeks. Is planning on getting the RSV vaccine. Did get the flu vaccine. Has not yet received the COVID booster. Denies edema or poor appetite. Does drink protein supplements occasionally. Does get sores in her mouth now and then. Has them right now. Also stuggles with severely dry mouth. Found an OTC product that works really well for her. Continues on oral magnesium supplement 800 mg BID. Past Medical History: Diagnosis Date Acute liver [...] performed by Chandana Raymond MD at [facility] BONE MARROW ASPIRATION 08/02/2016 BONE MARROW BIOPSY 08/02/2016 COLONOSCOPY, DIAGNOSTIC (RECTUM) 06/04/2014 diverticulosis, repeat 5 yrs COLONOSCOPY, DIAGNOSTIC (RECTUM) 05/18/2019 adenomatous & hyperplastic polyp, repeat 3 yrs/[facility] COLONOSCOPY, DIAGNOSTIC (RECTUM) 05/24/2022 benign adenomatous polyps, repeat 3 yrs / COLONOSCOPY FLEXIBLE PROXIMAL DIAGNOSTIC performed by Syl Cohen DO at ENDOSCOPY [facility] EGD, FLEXIBLE, DIAGNOSTIC 01/11/2016 normal bx/ESOPHAGOGASTRODUODENOSCOPY (EGD), FLEXIBLE, TRANSORAL, DIAGNOSTIC performed by Cam Ellis MD at ENDOSCOPY [facility] EGD, FLEXIBLE, DIAGNOSTIC 05/18/2019 normal bx/[facility] FISSURECTOMY W/ SPHINCTEROTOMY INFORMATION stem cell transplant , 12/19 IR BIOPSY 12/28/2015 TRANSCATHETER BIOPSY performed by Haris Tim MD at [facility]OLOG[facility] MISCELLANEOUS ORDER ([facility] ONLY) N/A 04/01/2017 REMOVAL OF [place] CATHETER [facility] DR. DAVIS 04/01/17 TMJ ARTHROSCOPY DISC [...] HPI - otherwise negative OBJECTIVE: Filed Vitals: 06/07/23 0941 BP: 108/73 Pulse: 86 Resp: 16 Temp: 36.6 C (97.8 F) TempSrc: Tympanic SpO2: 91% Weight: 51.6 kg (113 lb 11.2 oz) Wt Readings from Last 5 Encounters: 06/07/23 51.6 kg (113 lb 11.2 oz) 05/21/23 49.9 kg (110 lb) 05/14/23 50.6 kg (111 lb 9.6 oz) 04/15/23 50.3 kg (111 lb) 04/09/23 49.8 kg (109 lb 12.8 oz) PHYSICAL EXAM: ECOG: Performance Status 1 = 80-90% Symptoms but nearly ambulatory General Appearance: No acute distress Lungs/Thorax: Normal - Clear to auscultation Heart: Normal - Regular rate and rhythm, normal S1, S2, no appreciable murmurs Extremities: +trace BLE edema Neurologic: Normal - Grossly intact Results for orders placed or performed in visit on 06/03/23 COMPREHENSIVE METABOLIC PANEL Result Value Ref Range BUN 9 6 - 20 mg/dL Creatinine 0.7 0.5 - 1.0 mg/dL Estimated Glomerular Filtration Rate >90 >=60 mL/min Sodium 142 135 - 146 mmol/L Potassium 3.9 3.5 - 5.1 mmol/L Chloride 108 (H) 98 - 107 mmol/L CO2 27 22 - 32 mmol/L Anion Gap 7 7 - 15 mmol/L Glucose 81 70 - 120 mg/dL Albumin 3.7 (L) 3.8 - 5.0 g/dL AST 83 (H) 10 - 35 U/L Alkaline Phosphatase 269 (H) 35 - 130 U/L Bilirubin, Total 0.3 <=1.2 mg/dL Calcium 9.0 8.4 - 10.2 mg/dL Protein 6.5 6.0 - 8.3 g/dL ALT 78 (H) 10 - 35 U/L MAGNESIUM Result Value Ref Range Magnesium 1.6 1.5 - 2.6 mg/dL CBC Result Value Ref Range WBC 5.73 4.00 - 10.80 K/uL RBC 2.99 3.85 - 5.15 M/uL HGB 10.9 (L) 12.0 - 15.3 g/dL HCT 32.3 (L) 36.0 - 45.2 % MCV 108.0 81.5 - 97.5 fL MCH 36.5 27.0 - 34.0 pg MCHC 33.7 32.0 - 36.0 g/dL RDW 12.9 11.5 - 15.5 % PLT 88 (L) 140 - 400 K/uL MPV 9.5 6.6 - 11.1 fL DIFFERENTIAL, AUTOMATED Result Value Ref Range WBC 5.73 4.00 - 10.80 K/uL Neutrophils % 68.4 40.0 - 75.0 % Lymphocytes % 20.6 18.0 - 42.0 % Monocytes % 6.1 1.0 - 11.0 % Eosinophils % 4.4 0.0 - 6.0 % Basophils % 0.5 0.0 - 2.0 % Absolute Neutrophils 3.92 1.80 - 7.70 K/uL Absolute Lymphocytes 1.18 1.00 - 4.80 K/ul Absolute Monocytes 0.35 0.00 - 1.10 K/uL Absolute Eosinophils 0.25 0.00 - 0.70 K/uL Absolute Basophils 0.03 0.00 - 0.20 K/uL DIFFERENTIAL, TECHNOLOGIST REVIEW Result Value Ref Range nRBCs *Note: Due to a large number of results and/or encounters for the requested time period, some results have not been displayed. A complete set of results can be found in Results Review. IMPRESSION/PLAN: Refractory acute myelogenous leukemia Leukemia Cutis Encounter for chemotherapy Hypomagnesemia Labs reviewed: WBC and ANC WNL Hgb stable at 10.9 Moderate thrombocytopenia with platelet count of 88K Elevated LFTs with AST 83, alk phos 269 and ALT 78 Mag level 1.6 Had appointment with Aryan Cobb MD at [facility] 03/14/23. Office note reviewed. Her disease contiues to be responsive to decitabine. Therefore, she should continue as tolerated. Patient overall tolerating current treatment plan well. Will continue. Continue oral magnesium supplement 800 mg BID Will repeat CBC and LFTs prior to next treatment cycle scheduled 06/18/23. RTC in three months with physician with cbc/diff and cmp LEONIDAS Zuñiga documented in this encounter Nursing Notes * Delisa Forbes, HEARING AID SPECIALIST - 06/07/2023 9:41 AM EDT Patient identifed by name and birthdate Do you have any concerns about pain management for today's visit? No Living Will or Advance Directive for Health Care as noted on the problem list. [facility] is a way you can talk to your provider on line through e-mail. Would you like to sign up? I can activate it for you? ALREADY ACTIVE Filed Vitals: 06/07/23 0941 BP: 108/73 Pulse: 86 Resp: 16 Temp: 36.6 C (97.8 F) TempSrc: Tympanic SpO2: 91% Weight: 51.6 kg (113 lb 11.2 oz) Patient was instructed to not get [...] 06/11/2023 3:00 PM EST Office Visit Cardiology, [facility] [address] [place] [address] Miya Jerez CRNP [address] [place] [address] 06/18/2023 10:30 AM EST Laboratory Laboratory Scenery [facility] [address] [place] [phone] Patti, Lab Scenery [address] [place] [address] 06/18/2023 11:30 AM EST Hem/Onc Treatment Hematology/Oncolog y [address], [address] [address] [address], Chair 1 Hem Onc Scene 200 [facility] [place] [address] 06/18/2023 2:40 PM EST Telemedicine Gastroenterology, [facility] [address] [place] [address] Syl Cohen DO [address] [place] [address] 06/19/2023 1:00 PM EST Hem/Onc Treatment Hematology/Oncolog y [address], [address] [address] 06/20/2023 1:00 PM EST Hem/Onc Treatment Hematology/Oncolog y [address], [address] [address] 06/21/2023 1:00 PM EST Hem/Onc Treatment Hematology/Oncolog y Treatment, [address] [address] Patti, Chair 1 Hem Onc [facility] [place] [address] 07/09/2023 1:00 PM EST Office Visit [facility] [address] [place] [address] Rayna Solares PA-C 200 [facility] [place] [address] 08/12/2023 11:20 AM EST Hospital Encounter OR [facility], Operating Room [facility] [address] [place] [phone] Stiven Ram, DO [address] [place] [phone] 08/12/2023 11:20 AM EST - 08/12/2023 11:45 AM EST Surgery OR [facility], Operating Room [facility] [address] [place] [phone] Stiven Ram, DO [address] [place] [phone] INJECTION SPINE LUMBAR OR [facility] 08/13/2023 9:30 AM EST Office Visit Hematology/Oncolog y [facility] [place] 200 [facility] [place] [address] Corbin Nielson MD [address] [place] [address] 11/06/2023 1:00 PM EDT Office Visit [facility] [place] [address] [place] [address] Joe Peng, DO 200 [facility] [place] [address] Scheduled Procedures Name Priority Associated Diagnoses Date/Ti [...] having achieved remission Encounter for antineoplastic chemotherapy Hypomagnesemia Disorders of magnesium metabolism Lumbar radiculopathy [...] patient have Health Care Power of Electrical Logging Engineer? No Code Status History Code Status Date Activated Date Inactivated Comments Full Code 06/15/2016 5:56 PM 08/09/2016 8:19 PM This order reflects the patients wishes and were consensually agreed upon. Question Answer Comments Discussion of Advance Directives occurred with: Patient Does the patient have a Living Will? No Does the patient have Health Care Power of Electrical Logging Engineer? No Full Code 05/15/2016 3:18 AM 06/08/2016 6:42 PM This order reflects the patients wishes and were consensually agreed upon. Question Answer Comments Discussion of Advance Directives occurred with: Not Discussed Care Teams Community Artist Relationship Specialty Start Date End Date Joe Peng DO [address] [place] [address] PCP - General Family Medicine 05/19/18 documented as of this encounter
--- OUTSIDE RECORDS SUMMARY | 2023-08-22 00:30 | External Medical Summary | Summary of Care ---
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) Encounter for antineoplastic chemotherapy Procedures [place] DECITABINE INJECTION Corbin Nielson MD [address] [place] [address] Anc Hem/Onc [address] [place] [address] Referral ID Status Reason Start Date Expiration Date V isits Requested Visits Authorized [id number] Authorized 07/05/2021 08/04/2099 99 99 Encounter Details Date Type Department Care Team Description 05/24/2023 Hem/Onc Treatment [facility] [place] [address] [facility] [address] Patti, Chair 6 Hem Onc [address] [place] [address] Acute myeloid leukemia not having achieved remission (HCC)*; 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); Encounter for antineoplastic chemotherapy Allergies Active Allergy Reactions Severity Noted Date Comments Amoxicillin Nausea/vomiting 11/14/2015 Penicillins Nausea/vomiting Low 08/12/2007 tolerated cephalosporins in past Other reaction(s): Nausea Only Other reaction(s): "makes me nervous", Nausea documented as of this encounter (statuses as of 05/24/2023) Medications Medication Sig Dispensed Refills Start Date [...] for nausea 30 Tablet 11 2 Active Metoprolol Succinate ER 25 MG Oral Tablet Extended Release 24 Hour (toPROL XL)Indications:Tako tsubo cardiomyopathy TAKE 1/2 TABLET DAILY 45 Tablet 3 2 Active LORazepam 0.5 MG Oral Tablet [...] OR OTHERMEDICATIONS 90 Tablet 1 3 Active Ondansetron 8 MG Oral Tablet DisintegratingIndic ations:Acute myeloid leukemia in remission (HCC) Place 1 Tablet on tongue every 8 hours as needed for Nausea. dissolve on tongue. 30 Tablet 2 3 Active Omeprazole 20 MG Oral Capsule [...] Pain, Mild. 15 Tablet 0 3 Active documented as of this encounter (statuses as of 05/24/2023) Active Problems Problem Noted Date Hypotension 06/19/2022 Leukemia cutis 06/19/2022 Transaminasemia 06/19/2022 Vasovagal syncope 06/19/2022 Weight loss 06/19/2022 Chemotherapy-induced neutropenia 022 Acquired absence of left great toe 10/28 Neutropenia 02/15/2020 Chronic myeloid leukemia, BCR/ABL-positi ve, not having achieved remission 08/28/2019 Chronic leukemia of unspecified cell typ e not having achieved remission 08/28/2019 RASTA (generalized anxiety disorder) 08/28 Gastroesophageal reflux disease without esophagitis 08/28/2019 Chronic diarrhea 06/18/2019 Immunocompromised state 06/18/2019 Dehydration 12/01/2018 Major depressive disorder, single episod e, moderate 07/22/2018 Diet-controlled diabetes mellitus 2017 Iatrogenic diabetes mellitus 10/28/2017 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 017 Anemia 04/02/2017 Coagulopathy 04/02/2017 Hypomagnesemia 01/09/2017 Hypokalemia 2017 H/O allogeneic bone marrow transplant 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 2016 Encounter for antineoplastic chemotherap y 08/31/2016 Anasarca 06/08/2016 AML (acute myeloid leukemia) 05/18/2016 Hepatitis, autoimmune 01/26/2016 Thrombocytopenia 01/20/2016 Leucocytosis 01/20/2016 Takotsubo cardiomyopathy 02/12/2012 Hypothyroidism 08/27/2011 OTHER Overview: enlarged septum in heart documented as of this encounter (statuses as of 05/24/2023) Resolved Problems Problem Noted Date Resolved Date Amputated great toe of left foot 08/28/2019 04/09/2023 Uncontrolled type 2 diabetes mellitus with hyperglycemia, with long-term current use of insulin 02/18/2019 02/18/2019 Uncontrolled type 2 diabetes mellitus with hyperglycemia, with long-term current use of insulin 05/19/2018 05/20/2018 Unspecified adrenocortical insufficiency 018 08/28/2019 Unspecified convulsions 05/19/2018 08/28/19 20 Aplastic anemia 05/19/2018 08/28/2019 Cardiomyopathy 10/28/2017 05/19/2018 Dry gangrene 04/17/2017 07/31/2017 Overview: Left great toe CLABSI (central line-associated bloodstream infe ction) 04/17/2017 11/03/2017 Acute liver failure 04/03/2017 07/31/2017 Staphylococcus aureus bacteremia with sepsis 07/31/2017 Acute respiratory failure with hypoxia 7 07/31/2017 Lactic acidosis 04/02/2017 07/31/2017 JAMIL (acute kidney injury) 04/02/20172016 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 07/31/2017 Febrile neutropenia 06/08/2016 07/31/2017 HSV-1 (herpes simplex virus 1) infection 016 07/31/2017 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 encounter 02/12/2012 04/27/2015 shelter current use of anticoagulant therapy 0 02/12/2012 04/27/2015 Overview: ICD-10 update of inactive term Other disorder of menstruati on and other abnormal bleeding from female genital tract 09/16/2007 04/27/2015 Uterine leiomyoma 09/16/2007 04/27/2015 documented as of this encounter (statuses as of 05/24/2023) Immunizations Name Administration Dates Next Due COVID-19 [...] = 0.6 oz pur e alcohol) rarely Food Insecurity Answer Date Recorded Within the past 12 months, y ou worried that your food would run out before you got money to buy more. Never true 08/08/2022 Within the past 12 months, t he food you bought just didn't last and you didn't have money to get more. Never true 08/08/2022 Sex Assigned at Date Recorded Female 08/08/2022 8:[address] Job Start Date Occupation Industry Not on file Not on file Not on file documented as of this encounter Last Filed Vital Signs Vital Sign Reading Time Taken Comments Blood Pressure 122/74 05/24/2023 1:30 PM EDT Pulse 78 05/24/2023 1:30 PM EDT Temperature 36.6 C (97.8 F) 05/24/2023 1:30 PM ED T Respiratory Rate 18 05/24/2023 1:30 PM EDT Oxygen Saturation - - Inhaled Oxygen Concentration - - Weight - [...] of this encounter Nursing Notes * Leeann Roche, KARLEE - 05/24/2023 3:45 PM EDT Functional status at today's visit: Fully active, [...] goals: Met: Pt remained free of injury today Patient tolerated treatment well and was discharged in stable condition. Coverage by Teresa Agosto RN. * Leeann Roche RN - 05/24/2023 2:33 PM EDT Chair 4 Pt arrives for D4 Dacogen. She states she tired but otherwise doing well. She denies any acute concerns or complaints today. VAD accessed without difficulty, good blood return noted, flushed with NSSand fluids infusing. Pt took her own zofran at 0900 this morning. Safety and Risk for Injury Patient will remain free from injury. Ensure appropriate safety devices are available. Provide and maintain safe environment. documented in this encounter Plan of Treatment Upcoming Encounters Date Type Specialty Care Team Description 05/24/2023 Imaging Radiology Osteoarthritis of spine with radiculopathy, lumbar region 06/05/2023 Office Visit Pain Medicine Day, [place] [address] [place] [address] 06/07/2023 Laboratory Laboratory [facility], Lab Scenery [address] [place] [address] 06/07/2023 Office Visit Hematology Oncology Emelyn Richard CRNP [address] [place] [address] 06/11/2023 Office Visit Cardiology Miya Jerez CRNP [address] [place] [address] 06/18/2023 Laboratory Laboratory [place], Lab Scenery [address] [place] [address] 06/18/2023 Hem/Onc Treatment Hematology Oncology Patti, Chair 1 Hem Onc Scen[place] [address] [place] [address] 06/18/2023 Telemedicine Gastroenterology Syl Cohen, DO [address] [place] [address] 06/19/2023 Hem/Onc Treatment Hematology Oncology 06/20/2023 Hem/Onc Treatment Hematology Oncology 06/21/2023 Hem/Onc Treatment Hematology Oncology Patti, Chair 1 Hem Onc [place] [address] [place] [address] 07/09/2023 Office Visit Family Medicine Rayna Solares PA-C [address] [place] [address] 08/13/2023 Office Visit Hematology Oncology Corbin Nielson MD [address] [place] [address] 11/06/2023 Office Visit Family Medicine Joe Peng DO [address] [place] [address] Scheduled Procedures Name Priority Associated Diagnoses Date/Ti me COLONOSCOPY FLEXIBLE PROXIMAL DIAGNOSTIC Recall History of colon polyps Health Maintenance Due Date Last Done Comments Zoster Vaccines (1 of 2) 01/03/1975 DIABETES-EYE EXAM 11/25/2019 11/24/2018 Diabetic Foot Exam [...] on patient's age to complete this topic Hepatitis B Aged Out No longer eligi ble based on patient's age to complete this topic MENINGOCOCCAL (MENACTRA/MENVEO) Aged Out No longer eligible based on patient's age to complete this topic documented as of this encounter Medical Devices Not on filedocumented as of this encounter Visit Diagnoses Diagnosis Osteoarthritis of spine with radiculopathy, 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 Start Infusion 05/24/2023 2:21 PM EDT 25.6 mg 100 mL/hr hEParin 100 UNIT/ML Lock Flush inj 500 Units 500 Units (5 mL), IV Lock, PRN Other, IV Flush, Starting on Sat05/24/23 at 1350, Until Sat05/24/23 at 1559, For 24 hours, Do not flush if lock, PICC, or central line not in place; IV infusing or unable to flush. Given 05/24/2023 3:21 PM EDT 500 Units NSS infusion 500 mL, Intravenous, at 50 mL/hr, CONTINUOUS, Starting on Sat05/24/23 at 1500, Until Sat05/24/23 at 1559 Start Infusion 05/24/2023 1:50 PM EDT 500 mL 50 mL/hr ondansetron (Zofran) tab 8 mg 8 mg, Oral, ONCE, On Sat05/24/23 at 1500, For 1 dose Given By 05/24/2023 9:00 AM EDT 8 mg sodium chloride 0.9 % flush central line 10 mL 10 mL, IV Push, PRN Other, IV Flush, Starting on Sat05/24/23 at 1350, Until Sat05/24/23 at 1559, For 24 hours, Do not flush if lock, PICC, or central line not in place; IV infusing or unable to flush. Given 05/24/2023 3:21 PM EDT 10 mL documented in this encounter Advance Directives Latest Code Status on File Code Status Date Activated Date Inactivated Comments Full Code 04/02/2017 4:50 AM 04/17/2017 3:02 PM This order reflects the patients wishes and were consensually agreed upon. Question Answer Comments Discussion of Advance Directives occurred with: Family Does the patient have a Living Will? No Does the patient have Health Care Power of Editing Computer Publisher? No Code Status History Code Status Date Activated Date Inactivated Comments Full Code 06/15/2016 5:56 PM 08/09/2016 8:19 PM This order reflects the patients wishes and were consensually agreed upon. Question Answer Comments Discussion of Advance Directives occurred with: Patient Does the patient have a Living Will? No Does the patient have Health Care Power of Editing Computer Publisher? No Full Code 05/15/2016 3:18 AM 06/08/2016 6:42 PM This order reflects the patients wishes and were consensually agreed upon. Question Answer Comments Discussion of Advance Directives occurred with: Not Discussed Care Teams Direct Care Specialist Relationship Specialty Start Date End Date Joe Peng, DO [address] [place] [address] PCP - General Family Medicine 05/19/18 documented as of this encounter
--- OUTSIDE RECORDS SUMMARY | 2023-08-22 00:31 | External Medical Summary | Summary of Care ---
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) Encounter for antineoplastic chemotherapy Procedures [place] DECITABINE INJECTION Corbin Nielson MD [address] [place] [address] Anc Hem/Onc [address] [place] [address] Referral ID Status Reason Start Date Expiration Date V isits Requested Visits Authorized [id number] Authorized 07/05/2021 08/04/2099 99 99 Encounter Details Date Type Department Care Team Description 05/21/2023 Hem/Onc Treatment [facility]emat[facility], [place] [address] [facility] [address] Patti, Chair 6 Hem Onc [facility] [address] [facility] [place] [address] Acute myeloid leukemia not having achieved remission (HCC)*; 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); Encounter for antineoplastic chemotherapy Allergies Active Allergy Reactions Severity Noted Date Comments Amoxicillin Nausea/vomiting 11/14/2015 Penicillins Nausea/vomiting Low 08/12/2007 tolerated cephalosporins in past Other reaction(s): Nausea Only Other reaction(s): "makes me nervous", Nausea documented as of this encounter (statuses as of 05/21/2023) Medications Medication Sig Dispensed Refills Start Date [...] as of this encounter (statuses as of 05/21/2023) Active Problems Problem Noted Date Hypotension 06/19/2022 [...] as of this encounter (statuses as of 05/21/2023) Resolved Problems Problem Noted Date Resolved Date [...] as of this encounter (statuses as of 05/21/2023) Immunizations Name Administration Dates Next Due COVID-19 [...] Sign Reading Time Taken Comments Blood Pressure 113/67 05/21/2023 1:00 PM EDT Pulse 76 05/21/2023 1:00 PM EDT Temperature 36.7 C (98.1 F) 05/21/2023 1:00 PM ED T Respiratory Rate 16 05/21/2023 1:00 PM EDT Oxygen Saturation 97% 05/21/2023 1:00 PM EDT Inhaled Oxygen Concentration - - Weight 49.9 kg (110 lb) 05/21/2023 1:00 PM EDT Height - - Body Mass Index 17.49 04/09/2023 9:25 AM EDT documented in this [...] Nursing Notes * Erin Clarke RN - 05/21/2023 3:33 PM EDT Chair 11. Port accessed without difficulty. Patient's LFTs mildly elevated but ANC is improved from being held last week. Labs reviewed with Dr. Nielson -- okay to proceed with treatment today. Patient overall is feeling well today, no acute issues or complaints. Patient did say she had a fall about 3 weeks ago -- patient saw provider with Internal Medicine and is seeing doctor for pain management, getting scan done 05/24. Patient said she broke a rib and did hurt her back but now is feeling better overall. Patient said she slipped on the floor when getting out of bed and this then led to her falling. Chemo agents Dacogen Appetite fair, trying to eat more and still gain weight, educated about some diet options/shakes/food she could try to help increase calories at times. Nausea/Vomiting no Diarrhea no Constipation no Mucositis no Fatigue occasional Bleeding no Infection no Rash no Numbness tingling no Pain no Radiation no ABN Labs WNL for tx, okay for tx per Dr. Nielson [place] in Tx: N/A Return in 1 day Safety and Risk for Injury Patient will remain free from injury. Ensure appropriate safety devices are available. Provide and maintain safe environment. Goals: Patient will remain free from injury. Possible barriers to meeting goals: ambulating with IV pole Stability of the patient: Moderately stable - low risk of patient condition declining or worsening Summary regarding today's goals: Met: pt remained free of harm today Functional status at today's visit: Restricted in [...] adverse side effects during treatment. Patient tolerated treatment well without any acute issues or problems. Patient left facility in stable condition and denied any further needs. documented in this encounter Plan of Treatment Upcoming Encounters Date Type Specialty Care Team Description 05/22/2023 Hem/Onc Treatment Hematology Oncology [place], Chair 10 Hem Onc [place] [address] [place] [address] 05/23/2023 Hem/Onc Treatment Hematology Oncology [place], Chair 10 Hem Onc [place] [address] [place] [address] 05/24/2023 Hem/Onc Treatment Hematology Oncology [place], Chair 6 Hem Onc [place] [address] [place] [address] 05/24/2023 Imaging Radiology 06/03/2023 Laboratory Laboratory [place], Lab Scenery [address] [place] [address] 06/03/2023 Office Visit Hematology Oncology Corbin Nielson MD [address] [place] [address] 06/05/2023 Office Visit Pain Medicine Isatu Mitchell PA-C [address] [place] [address] 06/11/2023 Office Visit Cardiology Miya Jerez CRNP [address] [place] [address] 06/18/2023 Laboratory Laboratory [place], Lab Scenery [address] [place] [address] 06/18/2023 Hem/Onc Treatment Hematology Oncology Patti, Chair 1 Hem Onc [place] [address] [place] [address] 06/18/2023 Telemedicine Gastroenterology Syl Cohen DO [address] [place] [address] 06/19/2023 Hem/Onc Treatment Hematology Oncology 06/20/2023 Hem/Onc Treatment Hematology Oncology 06/21/2023 Hem/Onc Treatment Hematology Oncology Patti, Chair 1 Hem Onc [place] [address] [place] [address] 07/09/2023 Office Visit Family Medicine Rayna Solares PA-C [address] [place] [address] 08/13/2023 Office Visit Hematology Oncology Corbin Nielson MD [address] [place] [address] 11/06/2023 Office Visit Family Medicine Joe Peng DO [address] [facility] [place] [place] [address] Scheduled Procedures Name Priority Associated Diagnoses Date/Ti [...] ONCE PRN Other, Hypersensitivity Reaction, Starting on Sat05/21/23 at 1308, Until Sat05/22/23 at 1307, For 24 hours EPINEPHrine 1 MG/ML inj 0.3 mg 0.3 mg, Intramuscular, ONCE PRN Other, Hypersensitivity Reaction or Anaphylaxis, Starting on Sat05/21/23 at 1308, Until Sat05/22/23 at 1307, For 24 hours hEParin 100 UNIT/ML Lock Flush inj 500 Units 500 Units (5 mL), IV Lock, PRN Other, IV Flush, Starting on Sat05/21/23 at 1308, Until Sat05/22/23 at 1307, For 24 hours, Do not flush if lock, PICC, or central line not in place; IV infusing or unable to flush. Given 05/21/2023 3:16 PM EDT 500 Units Hydrocortisone Sod Suc (PF) (Solu-Cortef) inj 100 mg 100 mg, IV Push, ONCE PRN Other, Hypersensitivity Reaction, Starting on Sat05/21/23 at 1308, Until Sat05/22/23 at 1307, For 24 hours NSS infusion 500 mL, Intravenous, at 50 mL/hr, CONTINUOUS, Starting on Sat05/21/23 at 1415, Until Sat05/22/23 at 0014 Start Infusion 05/21/2023 1:20 PM EDT 500 mL 50 mL/hr sodium chloride 0.9 % flush central line 10 mL 10 mL, IV Push, PRN Other, IV Flush, Starting on Sat05/21/23 at 1308, Until Sat05/22/23 at 1307, For 24 hours, Do not flush if lock, PICC, or central line not in place; IV infusing or unable to flush. Given 05/21/2023 3:16 PM EDT 10 mL Inactive Administered Medications - up to 3 most recent administrations Medication Order MAR Action Action Date Dose Rate Site Decitabine (Dacogen) 25.6 mg in NSS 100 mL infusion 25.6 mg (16 mg/m2 1.6 m2 Order-specific BSA), IV Piggyback, ONCE, 1 dose, On Sat05/21/23 at 1445, Administer over 60 Minutes, CAUTION: CHEMOTHERAPY HANDLE WITH GLOVES ! Start Infusion 05/21/2023 2:12 PM EDT 25.6 mg 100 mL/hr ondansetron (Zofran) tab 8 mg 8 mg, Oral, ONCE, On Sat05/21/23 at 1415, For 1 dose Given 05/21/2023 2:00 PM EDT 8 mg documented in this encounter Advance [...] the patient have Health Care Power of Hand Cloth Folder? No Code Status History Code Status Date Activated Date Inactivated Comments Full Code 06/15/2016 5:56 PM 08/09/2016 8:19 PM This order reflects the patients wishes and were consensually agreed upon. Question Answer Comments Discussion of Advance Directives occurred with: Patient Does the patient have a Living Will? No Does the patient have Health Care Power of Hand Cloth Folder? No Full Code 05/15/2016 3:18 AM 06/08/2016 6:42 PM This order reflects the patients wishes and were consensually agreed upon. Question Answer Comments Discussion of Advance Directives occurred with: Not Discussed Care Teams Production Support Manager Relationship Specialty Start Date End Date Joe Peng DO [address] [place] [address] PCP - General Family Medicine 05/19/18 documented as of this encounter
--- OUTSIDE RECORDS SUMMARY | 2023-08-22 00:31 | External Medical Summary ---
Author Name Unknown Address Unknown Organization [facility] [address] [place] [address] Laboratory Report Ordering Provider Test Date Status APRYL MARINELLI 05/21/2023 12:08:53 Final Observation Date Value Abnormality Reference (Units ) Status SYNC LEUKOCYTES IN BLOOD BY AUTOMATED COUNT 05/21/2023 12:08:53 5.99 4.00-10.80 (K/uL) Final Segs 05/21/2023 12:08:53 52.8 40.0-75.0 (%) Final Lymphs % 05/21/2023 12:08:53 29.0 18.0-42.0 (%) Final Monos 05/21/2023 12:08:53 13.0 Above high normal 1.0-11.0 (%) Final Eosinophils 05/21/2023 12:08:53 4.7 0.0-6.0 (%) Final Basos 05/21/2023 12:08:53 0.5 0.0-2.0 (%) Final Absolute Segs 05/21/2023 12:08:53 3.16 1.80-7.70 (K/uL) Final Lymphs, absolute 05/21/2023 12:08:53 1.74 1.00-4.80 (K/ul) Final Monos, Abs 05/21/2023 12:08:53 0.78 0.00-1.10 (K/uL) Final Eos, Abs 05/21/2023 12:08:53 0.28 0.00-0.70 (K/uL) Final Basos, Abs 05/21/2023 12:08:53 0.03 0.00-0.20 (K/uL) Final Performing Location [facility] [place] [address]
--- OUTSIDE RECORDS SUMMARY | 2023-08-22 00:31 | External Medical Summary | Summary of Care ---
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); Hypomagnesemia Allergies Active Allergy Reactions Severity Noted Date [...] 016 07/31/2017 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 0 02/12/2012 04/27/2015 Overview: ICD-10 update of inactive term Other disorder of menstruati on and other abnormal bleeding from female genital tract 09/16/2007 04/27/2015 Uterine leiomyoma 09/16/2007 04/27/2015 documented as of this encounter (statuses as of 05/21/2023) Immunizations Name Administration Dates Next Due COVID-19 mRNA, LNP-s, No Pre serve, 2-Dose Series ([employer]) 05/08/2021,08/29/2020,08/08/2020 DTaP Dipth/Tet/Acell Pertussis (Infanrix), Peds 12/25/2017,10/30/2017,09/25/2017 [...] Encounters Date Type Specialty Care Team Description 05/21/2023 Hem/Onc Treatment H[facility]ology [facility] [place], Chair 6 Hem Onc Scenery [address] [place] [address] Arrived 05/22/2023 Hem/Onc Treatment H[facility] [place], Chair 10 Hem Onc Scenery [address] [place] [address] 05/23/2023 Hem/Onc Treatment H[facility]ology [facility] [place], Chair 10 Hem Onc Scenery [address] [place] [address] 05/24/2023 Hem/Onc Treatment Hematology Oncology [place], Chair 6 Hem Onc Scenery [address] [place] [address] 05/24/2023 Imaging Radiology 06/03/2023 Laboratory [facility] [place], Lab Scenery [address] [place] [address] 06/03/2023 Office Visit Hematology Oncology Corbin Nielson MD [address] [place] [address] 06/05/2023 Office Visit Pain Medicine Isatu Mitchell PA-C [address] [place] [address] 06/11/2023 Office Visit Cardiology Miya Jerez CRNP [address] [place] [address] 06/18/2023 Telemedicine Gastroenterology Syl Cohen DO [address] [place] [address] 07/09/2023 Office Visit Family Medicine Rayna Solares PA-C 200 [facility] [place] [address] 11/06/2023 Office Visit Family Medicine Joe Peng DO [address] [place] [address] Pending Results Name Type Priority Associated Diagnoses Date /Time CBC WITH WBC DIFFERENTIAL Lab STAT 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) Hypomagnesemia 05/21/2023 12:08 PM EDT COMPREHENSIVE METABOLIC PANEL Lab STAT 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) Hypomagnesemia 05/21/2023 12:08 PM EDT MAGNESIUM Lab STAT 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 No Code Status History Code Status Date Activated Date Inactivated Comments Full Code 06/15/2016 5:56 PM 08/09/2016 8:19 PM This order reflects the patients wishes and were consensually agreed upon. Question Answer Comments Discussion of Advance Directives occurred with: Patient Does the patient have a Living Will? No Does the patient have Health Care Power of Auto Service Advisor? No Full Code 05/15/2016 3:18 AM 06/08/2016 6:42 PM This order reflects the patients wishes and were consensually agreed upon. Question Answer Comments Discussion of Advance Directives occurred with: Not Discussed Care Teams Senior Research Fellow Relationship Specialty Start Date End Date Joe Peng, DO [address] [place] [address] PCP - General Family Medicine 05/19/18 documented as of this encounter
--- OUTSIDE RECORDS SUMMARY | 2023-08-22 00:31 | External Medical Summary ---
Author Name Unknown Address Unknown Organization K09:[facility] [place] [address] Laboratory Report Ordering Provider Test Date Status APRYL MARINELLI 05/21/2023 12:08:53 Final Observation Date Value Abnormality Reference (Units ) Status WBC, Total 05/21/2023 12:08:53 5.99 4.00-10.8 0 (K/uL) Final RBC 05/21/2023 12:08:53 3.25 3.85-5.15 (M/uL) Final Hemoglobin 05/21/2023 12:08:53 11.7 Below low normal 12 .0-15.3 (g/dL) Final HCT 05/21/2023 12:08:53 36.2 36.0-45.2 (%) Final MCV 05/21/2023 12:08:53 111.4 81.5-97.5 (fL) Final MCH 05/21/2023 12:08:53 36.0 27.0-34.0 (pg) Final MCHC 05/21/2023 12:08:53 32.3 32.0-36.0 (g/dL) Final RDW 05/21/2023 12:08:53 13.4 11.5-15.5 (%) Final Platelets 05/21/2023 12:08:53 186 140-400 (K /uL) Final MPV 05/21/2023 12:08:53 9.3 6.6-11.1 ( fL) Final Performing Location [facility] [place] [place] [address]
--- OUTSIDE RECORDS SUMMARY | 2023-08-22 00:31 | External Medical Summary | Summary of Care ---
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) Encounter for antineoplastic chemotherapy Procedures [place] DECITABINE INJECTION Corbin Nielson MD [address] [place] [address] Anc Hem/Onc [address] [place] [address] Referral ID Status Reason Start Date Expiration Date V isits Requested Visits Authorized [id number] Authorized 07/05/2021 08/04/2099 99 99 Encounter Details Date Type Department Care Team Description 05/22/2023 Hem/Onc Treatment Hematology[facility] Treatment, [place] [address] [facility] [address] [place], Chair 10 Hem Onc [facility] 200 [facility] [place] [address] Acute myeloid leukemia not having achieved remission (HCC)*; 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); Encounter for antineoplastic chemotherapy Allergies Active Allergy Reactions Severity Noted Date Comments Amoxicillin Nausea/vomiting 11/14/2015 Penicillins Nausea/vomiting Low 08/12/2007 tolerated cephalosporins in past Other reaction(s): Nausea Only Other reaction(s): "makes me nervous", Nausea documented as of this encounter (statuses as of 05/22/2023) Medications Medication Sig Dispensed Refills Start Date [...] as of this encounter (statuses as of 05/22/2023) Active Problems Problem Noted Date Hypotension 06/19/2022 [...] as of this encounter (statuses as of 05/22/2023) Resolved Problems Problem Noted Date Resolved Date [...] 016 07/31/2017 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 encounter 02/12/2012 04/27/2015 [facility] current use of anticoagulant therapy 0 02/12/2012 04/27/2015 Overview: ICD-10 update of inactive term Other disorder of menstruati on and other abnormal bleeding from female genital tract 09/16/2007 04/27/2015 Uterine leiomyoma 09/16/2007 04/27/2015 documented as of this encounter (statuses as of 05/22/2023) Immunizations Name Administration Dates Next Due COVID-19 [...] Sign Reading Time Taken Comments Blood Pressure 100/69 05/22/2023 11:34 AM EDT Pulse 77 05/22/2023 11:34 AM EDT Temperature 36.5 C (97.7 F) 05/22/2023 11:34 AM E DT Respiratory Rate 18 05/22/2023 11:34 AM EDT Oxygen Saturation 94% 05/22/2023 11:34 AM EDT Inhaled Oxygen Concentration - - Weight - [...] Nursing Notes * Nancy Agosto RN - 05/22/2023 3:26 PM EDT Functional status at today's visit: Restricted in [...] during treatment today. Discharged in stable condition. AB assisted. * Nancy Agosto RN - 05/22/2023 3:24 PM EDT Chair 11, Dacogen D3. Pt has no acute concerns to report today since treatment yesterday. Pt took Zofran at home prior to appt. Pt denies pain, bowel issues, neuropathy, fevers and bleeding. Appetiteand energy level are stable. VAD accessed; NSS infusing. Safety and Risk for Injury Patient will remain free from injury. Ensure appropriate safety devices are available. Provide and maintain safe environment. documented in this encounter Plan of Treatment Upcoming Encounters Date Type Specialty Care Team Description 05/23/2023 Hem/Onc Treatment Hematology Oncology [place], Chair 10 Hem Onc Scenery [address] [place] [address] 05/24/2023 Hem/Onc Treatment Hematology Oncology [place], Chair 6 Hem Onc Scenery [address] [place] [address] 05/24/2023 Imaging Radiology 06/03/2023 Laboratory Laboratory [place], Lab Scenery [facility] [place] [address] 06/03/2023 Office Visit Hematology Oncology Corbin Nielson MD [address] [place] [address] 06/05/2023 Office Visit Pain Medicine [place], [place] [address] [place] [address] 06/11/2023 Office Visit Cardiology Miya Jerez CRNP [address] [place] [address] 06/18/2023 Laboratory Laboratory [place], Lab Scenery [address] [place] [address] 06/18/2023 Hem/Onc Treatment Hematology [place], Chair 1 Hem Onc Scenery [address] [place] [address] 06/18/2023 Telemedicine Gastroenterology Syl Cohen DO [address] [place] [address] 06/19/2023 Hem/Onc Treatment Hematology Oncology 06/20/2023 Hem/Onc Treatment Hematology Oncology 06/21/2023 Hem/Onc Treatment Hematology Oncology [place], Chair 1 Hem Onc Scenery [address] [place] [address] 07/09/2023 Office Visit Family Medicine Rayna Solares PA-C [address] [place] [address] 08/13/2023 Office Visit Hematology Oncology Corbin Nielson MD [address] [place] [address] 11/06/2023 Office Visit Family Medicine Joe Peng DO [address] [place] [address] Scheduled Procedures Name Priority Associated Diagnoses Date/Ti [...] ONCE PRN Other, Hypersensitivity Reaction, Starting on Sat05/22/23 at 1152, Until Verena 05/23/23 at 1151, For 24 hours EPINEPHrine 1 MG/ML inj 0.3 mg 0.3 mg, Intramuscular, ONCE PRN Other, Hypersensitivity Reaction or Anaphylaxis, Starting on Sat05/22/23 at 1152, Until Verena 05/23/23 at 1151, For 24 hours hEParin 100 UNIT/ML Lock Flush inj 500 Units 500 Units (5 mL), IV Lock, PRN Other, IV Flush, Starting on Sat05/22/23 at 1152, Until Verena 05/23/23 at 1151, For 24 hours, Do not flush if lock, PICC, or central line not in place; IV infusing or unable to flush. Given 05/22/2023 1:42 PM EDT 500 Units Hydrocortisone Sod Suc (PF) (Solu-Cortef) inj 100 mg 100 mg, IV Push, ONCE PRN Other, Hypersensitivity Reaction, Starting on Sat05/22/23 at 1152, Until Verena 05/23/23 at 1151, For 24 hours NSS infusion 500 mL, Intravenous, at 50 mL/hr, CONTINUOUS, Starting on Sat05/22/23 at 1300, Until Sat05/22/23 at 2259 Start Infusion 05/22/2023 11:55 AM EDT 500 mL 50 mL/hr sodium chloride 0.9 % flush central line 10 mL 10 mL, IV Push, PRN Other, IV Flush, Starting on Sat05/22/23 at 1152, Until Verena 05/23/23 at 1151, For 24 hours, Do not flush if lock, PICC, or central line not in place; IV infusing or unable to flush. Given 05/22/2023 1:42 PM EDT 10 mL Inactive Administered Medications - up to 3 most recent administrations Medication Order MAR Action Action Date Dose Rate Site Decitabine (Dacogen) 25.6 mg in NSS 100 mL infusion 25.6 mg (16 mg/m2 1.6 m2 Order-specific BSA), IV Piggyback, ONCE, 1 dose, On Sat05/22/23 at 1330, Administer over 60 Minutes, CAUTION: CHEMOTHERAPY HANDLE WITH GLOVES ! Start Infusion 05/22/2023 12:33 PM EDT 25.6 mg 100 mL/hr documented in this [...] the patient have Health Care Power of Ancillary Services Manager? No Code Status History Code Status Date Activated Date Inactivated Comments Full Code 06/15/2016 5:56 PM 08/09/2016 8:19 PM This order reflects the patients wishes and were consensually agreed upon. Question Answer Comments Discussion of Advance Directives occurred with: Patient Does the patient have a Living Will? No Does the patient have Health Care Power of Ancillary Services Manager? No Full Code 05/15/2016 3:18 AM 06/08/2016 6:42 PM This order reflects the patients wishes and were consensually agreed upon. Question Answer Comments Discussion of Advance Directives occurred with: Not Discussed Care Teams Pbx Repairer Relationship Specialty Start Date End Date Joe Peng, [address] [place] [address] PCP - General Family Medicine 05/19/18 documented as of this encounter
--- OUTSIDE RECORDS SUMMARY | 2023-08-22 00:31 | External Medical Summary | Summary of Care ---
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) Encounter for antineoplastic chemotherapy Procedures [place] DECITABINE INJECTION Corbin Nielson MD [address] [place] [address] Anc Hem/Onc [address] [place] [address] Referral ID Status Reason Start Date Expiration Date V isits Requested Visits Authorized [id number] Authorized 07/05/2021 08/04/2099 99 99 Encounter Details Date Type Department Care Team Description 05/24/2023 Hem/Onc Treatment [facility]emat[facility], [place] [address] [facility] [address] [place], Chair 6 Hem Onc [address] [place] [address] Acute myeloid leukemia not having achieved remission [...] typ e not having achieved remission 08/28/2019 RSATA (generalized anxiety disorder) 08/28 Gastroesophageal reflux disease [...] 016 07/31/2017 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 encounter 02/12/2012 04/27/2015 intermediate current use of anticoagulant therapy 0 02/12/2012 [...] [place] [address] [place] [address] 06/07/2023 Laboratory Laboratory [employer] [facility], Lab Scenery [address] [place] [address] 06/07/2023 Office Visit Hematology Oncology Emelyn Richard CRNP [address] [place] [address] 06/11/2023 Office Visit Cardiology Miya Jerez CRNP [address] [place] [address] 06/18/2023 Laboratory Laboratory [place], Lab Scenery [address] [place] [address] 06/18/2023 Hem/Onc Treatment Hematology Oncology [place], Chair 1 Hem Onc Scenery [address] [place] [address] 06/18/2023 Telemedicine Gastroenterology Syl Cohen, DO [address] [place] [address] 06/19/2023 Hem/Onc Treatment Hematology Oncology 06/20/2023 Hem/Onc Treatment Hematology Oncology 06/21/2023 Hem/Onc Treatment Hematology Oncology [place], Chair 1 Hem Onc Scenery [address] [place] [address] 07/09/2023 Office Visit Family Medicine Rayna Solares PA-C [address] [place] [address] 08/13/2023 Office Visit Hematology Oncology Corbin Nielson MD [address] [place] [address] 11/06/2023 Office Visit Family Medicine Joe Peng DO [address] [place] [address] Scheduled Procedures Name Priority Associated Diagnoses Date/Ti [...] ONCE PRN Other, Hypersensitivity Reaction, Starting on Sat05/24/23 at 1350, Until 05/25/23 at 1349, For 24 hours EPINEPHrine 1 MG/ML inj 0.3 mg 0.3 mg, Intramuscular, ONCE PRN Other, Hypersensitivity Reaction or Anaphylaxis, Starting on Sat05/24/23 at 1350, Until 05/25/23 at 1349, For 24 hours hEParin 100 UNIT/ML Lock Flush inj 500 Units 500 Units (5 mL), IV Lock, PRN Other, IV Flush, Starting on Sat05/24/23 at 1350, Until 05/25/23 at 1349, For 24 hours, Do not flush if lock, PICC, or central line not in place; IV infusing or unable to flush. Given 05/24/2023 3:21 PM EDT 500 Units Hydrocortisone Sod Suc (PF) (Solu-Cortef) inj 100 mg 100 mg, IV Push, ONCE PRN Other, Hypersensitivity Reaction, Starting on Sat05/24/23 at 1350, Until 05/25/23 at 1349, For 24 hours NSS infusion 500 mL, Intravenous, at 50 mL/hr, CONTINUOUS, Starting on Sat05/24/23 at 1500, Until 05/25/23 at 0059 Start Infusion 05/24/2023 1:50 PM EDT 500 mL 50 mL/hr sodium chloride 0.9 % flush central line 10 mL 10 mL, IV Push, PRN Other, IV Flush, Starting on Sat05/24/23 at 1350, Until 05/25/23 at 1349, For 24 hours, Do not flush if lock, PICC, or central line not in place; IV infusing or unable to flush. Given 05/24/2023 3:21 PM EDT 10 mL Inactive Administered Medications [...] 2:21 PM EDT 25.6 mg 100 mL/hr ondansetron (Zofran) tab 8 mg 8 mg, Oral, ONCE, On Sat05/24/23 at 1500, For 1 dose Given By 05/24/2023 9:00 AM EDT 8 mg documented in this encounter [...] the patient have Health Care Power of Podiatry Teacher? No Code Status History Code Status Date Activated Date Inactivated Comments Full Code 06/15/2016 5:56 PM 08/09/2016 8:19 PM This order reflects the patients wishes and were consensually agreed upon. Question Answer Comments Discussion of Advance Directives occurred with: Patient Does the patient have a Living Will? No Does the patient have Health Care Power of Podiatry Teacher? No Full Code 05/15/2016 3:18 AM 06/08/2016 6:42 PM This order reflects the patients wishes and were consensually agreed upon. Question Answer Comments Discussion of Advance Directives occurred with: Not Discussed Care Teams Electric Utility Lineworker Relationship Specialty Start Date End Date Joe Peng, DO [address] [place] [address] PCP - General Family Medicine 05/19/18 documented as of this encounter
--- OUTSIDE RECORDS SUMMARY | 2023-08-22 00:31 | External Medical Summary | Summary of Care ---
Author Name Unknown Organization [facility] Address [address] [place] [address] Phone [phone] Care Team Providers Care Membership Sales Advisor Name Role Phone Joe Peng DO Primary Care Provider [phone] Reason for Visit * Reason Onset Date Comments Treatment 05/14/2023 Encounter Details Date Type Department Care Team Description 05/14/2023 Telephone Hematology/Oncology [facility] [place] [address] [place] [address] Corbin Nielson MD [address] [place] [address] Treatment Allergies Active Allergy Reactions Severity Noted Date Comments Amoxicillin Nausea/vomiting 11/14/2015 Penicillins Nausea/vomiting Low 08/12/2007 tolerated cephalosporins in past Other reaction(s): Nausea Only Other reaction(s): "makes me nervous", Nausea documented as of this encounter (statuses as of 05/14/2023) Medications Medication Sig Dispensed Refills Start Date [...] as of this encounter (statuses as of 05/14/2023) Active Problems Problem Noted Date Hypotension 06/19/2022 [...] as of this encounter (statuses as of 05/14/2023) Resolved Problems Problem Noted Date Resolved Date [...] 016 07/31/2017 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 0 02/12/2012 04/27/2015 Overview: ICD-10 update of inactive term Other disorder of menstruati on and other abnormal bleeding from female genital tract 09/16/2007 04/27/2015 Uterine leiomyoma 09/16/2007 04/27/2015 documented as of this encounter (statuses as of 05/14/2023) Immunizations Name Administration Dates Next Due COVID-19 mRNA, LNP-s, No Pre serve, 2-Dose Series ([employer] 05/08/2021,08/29/2020,08/08/2020 DTaP Dipth/Tet/Acell Pertussis (Infanrix), Peds 12/25/2017,10/30/2017,09/25/2017 [...] as of this encounter Miscellaneous Notes * Addendum Note - Laurita Pringle RN - 05/14/2023 3:24 PM EDTAddended by: LAURITA PRINGLE on: 05/14/2023 03:24 PM Modules accepted: Orders * Telephone Encounter - Laurita Pringle RN - 05/14/2023 3:24 PM EDT [place] adjusted. * Telephone Encounter - Melissa Lynn RN - 05/14/2023 2:54 PM EDT Pt arrived for Dacogen infusion today. She had labs performed prior, ANC 0.77. HOLD chemo today, delay by one week. NS--Please adjust schedule accordingly documented in this encounter Plan of Treatment Upcoming Encounters Date Type Specialty Care Team Description 05/21/2023 Laboratory [facility] [place], Lab Scenery [address] [place] [address] 05/21/2023 Hem/Onc Treatment Hematology Oncology [place], Chair 6 Hem Onc Scenery [address] [place] [address] 05/22/2023 Hem/Onc Treatment Hematology [place]cology [place], Chair 10 Hem Onc Scenery [address] [place] [address] 05/23/2023 Hem/Onc Treatment Hematology Oncology [place], Chair 10 Hem Onc Scenery [address] [place] [address] 05/24/2023 Hem/Onc Treatment Hematology Oncology [place], Chair 6 Hem Onc Scenery [address] [place] [address] 05/24/2023 Imaging Radiology 06/03/2023 Laboratory Laboratory [place], Lab Scenery [address] [place] [address] 06/03/2023 Office Visit Hematology Oncology Corbin Nielson MD [address] [place] [address] 06/05/2023 Office Visit Pain Medicine Isatu Mitchell PA-C [address] [place] [address] 06/11/2023 Office Visit Cardiology Miya Jerez CRNP [address] [place] [address] 06/18/2023 Telemedicine Gastroenterology Syl Cohen DO [address] [place] [address] 07/09/2023 Office Visit Family Medicine Rayna Solares PA-C [address] [place] [address] 11/06/2023 Office Visit Family Medicine Joe Peng DO [address] [place] [address] Scheduled Procedures Name Priority Associated Diagnoses Date/Ti [...] 12/10/2022, 050 09/2021, 08/31/2020, Additional history exists Mammogram 03/20/2024 [...] 01/23/2030 01/23/2023, 11/04/2018 Pap Smear Discontinued 08/13/2019, 080 08/2013, 03/05/2014, [...] the patient have Health Care Power of Expressive Therapist? No Code Status History Code Status Date Activated Date Inactivated Comments Full Code 06/15/2016 5:56 PM 08/09/2016 8:19 PM This order reflects the patients wishes and were consensually agreed upon. Question Answer Comments Discussion of Advance Directives occurred with: Patient Does the patient have a Living Will? No Does the patient have Health Care Power of Expressive Therapist? No Full Code 05/15/2016 3:18 AM 06/08/2016 6:42 PM This order reflects the patients wishes and were consensually agreed upon. Question Answer Comments Discussion of Advance Directives occurred with: Not Discussed Care Teams Membership Sales Advisor Relationship Specialty Start Date End Date Joe Peng, DO [address] [place] [address] PCP - General Family Medicine 05/19/18 documented as of this encounter
--- OUTSIDE RECORDS SUMMARY | 2023-08-22 00:31 | External Medical Summary ---
Author Name Unknown Address Unknown Organization K09:[facility] [place] [address] Laboratory Report Ordering Provider Test Date Status APRYL MARINELLI 05/21/2023 12:08:53 Final Observation Date Value Abnormality Reference (Units ) Status Nucleated erythrocytes/100 leukocytes [Ratio] in Blood by Automated count 05/21/2023 12:08:53 Final Performing Location [facility] [place] [address]
--- OUTSIDE RECORDS SUMMARY | 2023-08-22 00:31 | External Medical Summary ---
Author Name Unknown Address Unknown Organization K09:[facility] [place] [place] [address] Laboratory Report Ordering Provider Test Date Status APRYL MARINELLI 05/21/2023 12:08:53 Final Observation Date Value Abnormality Reference (Units ) Status Magnesium 05/21/2023 12:08:53 1.7 1.5-2.6 (m g/dL) Final Performing Location [facility] [place] [address]
--- OUTSIDE RECORDS SUMMARY | 2023-08-22 00:31 | External Medical Summary | Summary of Care ---
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) Encounter for antineoplastic chemotherapy Procedures ME DECITABINE INJECTION Corbin Nielson MD [address] [place] [address] Anc Hem/Onc [address] [place] [id number] Referral ID Status Reason Start Date Expiration Date V isits Requested Visits Authorized [id number] Authorized 07/05/2021 08/04/2099 99 99 Encounter Details Date Type Department Care Team Description 05/23/2023 Hem/Onc Treatment [facility]ematology[facility] Treatment, [place] [address] [facility] [address] [place], Chair 10 Hem Onc [facility] [address] [facility] [place] [address] Acute myeloid leukemia not having achieved remission (HCC)*; 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); Encounter for antineoplastic chemotherapy Allergies Active Allergy Reactions Severity Noted Date Comments Amoxicillin Nausea/vomiting 11/14/2015 Penicillins Nausea/vomiting Low 08/12/2007 tolerated cephalosporins in past Other reaction(s): Nausea Only Other reaction(s): "makes me nervous", Nausea documented as of this encounter (statuses as of 05/23/2023) Medications Medication Sig Dispensed Refills Start Date [...] as of this encounter (statuses as of 05/23/2023) Active Problems Problem Noted Date Hypotension 06/19/2022 [...] as of this encounter (statuses as of 05/23/2023) Resolved Problems Problem Noted Date Resolved Date [...] as of this encounter (statuses as of 05/23/2023) Immunizations Name Administration Dates Next Due COVID-19 [...] Sign Reading Time Taken Comments Blood Pressure 114/73 05/23/2023 10:59 AM EDT Pulse 81 05/23/2023 10:59 AM EDT Temperature 36.6 C (97.8 F) 05/23/2023 10:59 AM E DT Respiratory Rate 16 05/23/2023 10:59 AM EDT Oxygen Saturation 98% 05/23/2023 10:59 AM EDT Inhaled Oxygen Concentration - - [...] Nursing Notes * Erin Clarke RN - 05/23/2023 4:12 PM EDT Chair 4. Port accessed by Nancy Moise RN. Patient feleing well today without any acute issues or complaints. Pttook her Zofran tab at 9 am today. Patient is comfortable and denies further needs at this time. Chemo agents Dacogen Appetite good Nausea/Vomiting no Diarrhea no Constipation no Mucositis no Fatigue feeling some fatigue but overall still very well Bleeding no Infection no Rash no Numbness tingling no Pain no Radiation no ABN Labs WNL for tx, done on day 1 of tx cycle (Saturday) Alt in Tx: N/A Return in 1 [...] Date Type Specialty Care Team Description 05/24/2023 Hem/Onc Treatment Hematology Oncology [place], Chair 6 Hem Onc Scen[place] [address] [place] [address] 05/24/2023 Imaging Radiology 06/03/2023 Laboratory Laboratory [place], Lab Scenery [address] [place] [address] 06/03/2023 Office Visit Hematology Oncology Corbin Nielson MD [address] [place] [address] 06/05/2023 Office Visit Pain Medicine Isatu Mitchell PA-C [address] [place] [address] 06/11/2023 Office Visit Cardiology Miya Jerez CRNP [address] [place] [address] 06/18/2023 Laboratory Laboratory [place], Lab Scenery [address] [place] [address] 06/18/2023 Hem/Onc Treatment Hematology Oncology [place], Chair 1 Hem Onc Scenery [address] [place] [address] 06/18/2023 Telemedicine Gastroenterology Syl Cohen, DO [address] [place] [address] 06/19/2023 Hem/Onc Treatment Hematology Oncology 06/20/2023 Hem/Onc Treatment Hematology Oncology 06/21/2023 Hem/Onc Treatment Hematology Oncology [place], Chair 1 Hem Onc Scenery [address] [place] [address] 07/09/2023 Office Visit Family Medicine Rayna Solares PA-C [address] [place] [address] 08/13/2023 Office Visit Hematology Oncology Corbin Nielson MD [address] [place] [address] 11/06/2023 Office Visit Family Medicine Joe Peng DO [address] [place] [address] Scheduled Procedures Name Priority Associated Diagnoses Date/Ti [...] PRN Other, Hypersensitivity Reaction, Starting on Verena 05/23/23 at 1114, Until Sat05/24/23 at 1113, For 24 hours EPINEPHrine 1 MG/ML inj 0.3 mg 0.3 mg, Intramuscular, ONCE PRN Other, Hypersensitivity Reaction or Anaphylaxis, Starting on Verena 05/23/23 at 1114, Until Sat05/24/23 at 1113, For 24 hours hEParin 100 UNIT/ML Lock Flush inj 500 Units 500 Units (5 mL), IV Lock, PRN Other, IV Flush, Starting on Verena 05/23/23 at 1114, Until Sat05/24/23 at 1113, For 24 hours, Do not flush if lock, PICC, or central line not in place; IV infusing or unable to flush. Given 05/23/2023 12:39 PM EDT 500 Units Hydrocortisone Sod Suc (PF) (Solu-Cortef) inj 100 mg 100 mg, IV Push, ONCE PRN Other, Hypersensitivity Reaction, Starting on Verena 05/23/23 at 1114, Until Sat05/24/23 at 1113, For 24 hours NSS infusion 500 mL, Intravenous, at 50 mL/hr, CONTINUOUS, Starting on Verena 05/23/23 at 1215, Until Verena 05/23/23 at 2214 Start Infusion 05/23/2023 11:10 AM EDT 500 mL 50 mL/hr sodium chloride 0.9 % flush central line 10 mL 10 mL, IV Push, PRN Other, IV Flush, Starting on Verena 05/23/23 at 1114, Until Sat05/24/23 at 1113, For 24 hours, Do not flush if lock, PICC, or central line not in place; IV infusing or unable to flush. Given 05/23/2023 12:39 PM EDT 10 mL Inactive Administered Medications - up to 3 most recent administrations Medication Order MAR Action Action Date Dose Rate Site Decitabine (Dacogen) 25.6 mg in NSS 100 mL infusion 25.6 mg (16 mg/m2 1.6 m2 Order-specific BSA), IV Piggyback, ONCE, 1 dose, On Verena 05/23/23 at 1245, Administer over 60 Minutes, CAUTION: CHEMOTHERAPY HANDLE WITH GLOVES ! Start Infusion 05/23/2023 11:35 AM EDT 25.6 mg 100 mL/hr documented in [...] the patient have Health Care Power of Publications Editor? No Code Status History Code Status Date Activated Date Inactivated Comments Full Code 06/15/2016 5:56 PM 08/09/2016 8:19 PM This order reflects the patients wishes and were consensually agreed upon. Question Answer Comments Discussion of Advance Directives occurred with: Patient Does the patient have a Living Will? No Does the patient have Health Care Power of Publications Editor? No Full Code 05/15/2016 3:18 AM 06/08/2016 6:42 PM This order reflects the patients wishes and were consensually agreed upon. Question Answer Comments Discussion of Advance Directives occurred with: Not Discussed Care Teams Spanisher Relationship Specialty Start Date End Date Joe Peng, DO [address] [place] [address] PCP - General Family Medicine 05/19/18 documented as of this encounter
--- OUTSIDE RECORDS SUMMARY | 2023-08-22 00:31 | External Medical Summary ---
Author Name Unknown Address Unknown Organization [facility] [address] [place] [address] Laboratory Report Ordering Provider Test Date Status APRYL MARINELLI 05/21/2023 12:08:53 Final Observation Date Value Abnormality Reference (Units ) Status BUN 05/21/2023 12:08:53 10 6-20 (mg/dL) Final Creatinine 05/21/2023 12:08:53 0.8 0.5-1.0 (mg/dL) Final Glomerular filtration rate/1.73 sq M.predicted [Volume Rate/Area] in Serum, Plasma or Blood by Creatinine-based formula (CKD-EPI) 05/21/2023 12:08:53 76 >=60 (mL/min) Final eGFR is calculated based on the CKD-EPI 2020 equation SODIUM 05/21/2023 12:08:53 143 135-146 (m mol/L) Final Potassium 05/21/2023 12:08:53 4.5 3.5-5.1 (m mol/L) Final Cl 05/21/2023 12:08:53 109 Above high normal 98 -107 (mmol/L) Final CO2 05/21/2023 12:08:53 27 22-32 (mmo l/L) Final Anion gap 05/21/2023 12:08:53 7 7-15 (mmol /L) Final Glucose 05/21/2023 12:08:53 95 70-120 (mg /dL) Final Albumin 05/21/2023 12:08:53 3.4 Below low normal 3.8 -5.0 (g/dL) Final AST (Aspartate aminotransferase) 05/21/2023 12:08:53 48 Above high normal 10-35 (U/L) Final Alk Phos 05/21/2023 12:08:53 286 Above high normal 35 -130 (U/L) Final Bilirubin, Total 05/21/2023 12:08:53 0.3 <=1 .2 (mg/dL) Final Calcium 05/21/2023 12:08:53 9.0 8.4-10.2 ( mg/dL) Final Protein 05/21/2023 12:08:53 6.3 6.0-8.3 (g /dL) Final ALT (Alanine aminotransferase) 05/21/2023 12:08:53 37 Above high normal 10-35 (U/L) Final Performing Location [facility] [place] [address]
--- OUTSIDE RECORDS SUMMARY | 2023-08-22 00:32 | External Medical Summary ---
Author Name Unknown Address Unknown Organization [facility] [place] [address] Laboratory Report Ordering Provider Test Date Status APRYL MARINELLI 05/14/2023 12:26:43 Final Observation Date Value Abnormality Reference (Units ) Status SYNC LEUKOCYTES IN BLOOD BY AUTOMATED COUNT 05/14/2023 12:26:43 3.56 Below low normal 4.00-10.80 (K/uL) Final Segs 05/14/2023 12:26:43 21.7 Below low normal 40.0-75.0 (%) Final Lymphs % 05/14/2023 12:26:43 49.2 Above high normal 18.0-42.0 (%) Final Monos 05/14/2023 12:26:43 21.3 Above high normal 1.0-11.0 (%) Final Eosinophils 05/14/2023 12:26:43 5.6 0.0-6.0 (%) Final Basos 05/14/2023 12:26:43 2.2 Above high normal 0.0-2.0 (%) Final Absolute Segs 05/14/2023 12:26:43 0.77 Below low normal 1.80-7.70 (K/uL) Final Lymphs, absolute 05/14/2023 12:26:43 1.75 1.00-4.80 (K/ul) Final Monos, Abs 05/14/2023 12:26:43 0.76 0.00-1.10 (K/uL) Final Eos, Abs 05/14/2023 12:26:43 0.20 0.00-0.70 (K/uL) Final Basos, Abs 05/14/2023 12:26:43 0.08 0.00-0.20 (K/uL) Final Performing Location [facility] [place] [address]
--- OUTSIDE RECORDS SUMMARY | 2023-08-22 00:32 | External Medical Summary | Summary of Care ---
Author Name Unknown Organization [facility] Address [address] [place] [address] Phone [phone] Care Team Providers Care Installation Helper Name Role Phone Joe Peng DO Primary Care Provider [phone] Reason for Visit * Reason Comments Follow Up Bilateral hip Encounter Details Date Type Department Care Team Description 05/07/2023 Office Visit Orthopaedics [facility] [address] [place] [address] Yovani Whitten MD [address] [place] [address] Primary osteoarthritis of left hip* Allergies Active Allergy Reactions Severity Noted Date Comments Amoxicillin Nausea/vomiting 11/14/2015 Penicillins Nausea/vomiting Low 08/12/2007 tolerated cephalosporins in past Other reaction(s): Nausea Only Other reaction(s): "makes me nervous", Nausea documented as of this encounter (statuses as of 05/07/2023) Medications Medication Sig Dispensed Refills Start Date [...] the evening. 120 Capsule 5 3 Active Hospital, Clinic, or Other Facility Administered Medication Ordered Dose Route Frequency Start Date End Date Status lidocaine 1% 1 mL - triamcinolone acetonide 40 mg/mL 1 mL inj 2 mLIndications:Primary osteoarthritis of left hip 2 mL IJ ONCE 05/07/2023 3 Ended documented as of this encounter (statuses as of 05/07/2023) Active Problems Problem Noted Date Hypotension 06/19/2022 [...] as of this encounter (statuses as of 05/07/2023) Resolved Problems Problem Noted Date Resolved Date [...] 016 07/31/2017 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 encounter 02/12/2012 04/27/2015 halfway current use of anticoagulant therapy 0 02/12/2012 04/27/2015 Overview: ICD-10 update of inactive term Other disorder of menstruati on and other abnormal bleeding from female genital tract 09/16/2007 04/27/2015 Uterine leiomyoma 09/16/2007 04/27/2015 documented as of this encounter (statuses as of 05/07/2023) Immunizations Name Administration Dates Next Due COVID-19 mRNA, LNP-s, No Pre serve, 2-Dose Series ([employer]) 05/08/2021,08/29/2020,08/08/2020 DTaP Dipth/Tet/Acell Pertussis ([employer]an[employer]), Peds 12/25/2017,10/30/2017,09/25/2017 [...] as of this encounter Progress Notes * Yovani Whitten MD - 05/07/2023 3:00 PM EDT Codi Soto [id number] Codi Soto is a 68 year old female who presents for consultation for left hip injury/pain to [facility]. I saw her originally for this on 04/30/2023 Codi Soto is here with his/her Quality: reviewed and agree with Nursing Notes for HPI elements History: History on 04/30/2023 - left hip pain 11/12 today x 1 year. Patient denies any PT or injections or injury or bracing or surgery on left hip X-ray 03/15/2023 of both the lumbar spine and hip. Patient gets pain within the groin but also has pain that radiates the entire way down her leg to her foot. Since that visit: No change in symptoms Presents today have steroid injection of her hip. See discussion below. 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 Family History Problem Relation Age of Onset Lung Disorder Mother COPD Cancer Mother Head and Neck CA Stroke Mother carotid stenosis Esophageal cancer Father Heart attack Father Hypertension Father Thyroid Disorder Sister Other (Other) Sister alpha 1 antryipsin deficiency Breast Cancer Grandmother (Maternal) Heart Disorder Grandmother (Paternal) Heart Disorder Grandfather (Paternal) Breast Cancer Cousin (Maternal) 30s Social History Socioeconomic History Marital status: Spouse [...] on file Food Insecurity: No Food Insecurity Worried About Running Out of Food in the Last Year: Never true Ran Out of Food in the Last Year: Never true Transportation Needs: Not on file Physical Activity: Not on file Stress: Not on file Social Connections: Not on file Intimate Partner Violence: Not on file Housing Stability: Not on file Radiology (I have personally reviewed the following films): 03/15/2023: Two-view x-ray of the left hip including AP pevis Bones/joints: Severe joint space narrowing of left hip. Large subchondral cysts on both sides of the joint space. Chronic remodeling and flattening of left femoral head.There are marginal osteophytes present. There is no evidence of bony cortex disruption or periostitis. There is moderate diffuse osteopenia. Irregular appearance and flattening of right femoral head suggesting avascular necrosis. There are moderate degenerative changes of the lumbar spine and sacroiliac joints. Soft tissues: See "Bones/joints" finding. Organs: Likely calcified uterine fibroids. Other findings: Moderate IMPRESSION IMPRESSION: 1. Severe degenerative changes of left hip . No definite displaced fracture. 2. Question avascular necrosis of right femoral head. 3. Degenerative change 03/15/2023: Three-view x-ray of the lumbar spine FINDINGS: Bones/joints: Prominent leftward curvature of the lumbar spine again noted, worsened compared to prior exam. Multilevel leftward listhesis most significant at L3 on L4 by approximately 14 mm The vertebral bodies maintain normal height. Multilevel loss of intervertebral disc height with endplate degenerative changes. Multilevel facet arthropathy. Probable neural foraminal narrowing at L5-S1. Prominent degenerative changes in the partially visualized hip joints, which appear worsened compared to prior exam. Soft tissues: Calcified uterine fibroids again noted. IMPRESSION IMPRESSION: 1. Worsening degenerative changes in the lumbar spine. 2. Prominent degenerative changes in the partially visualized hip joints, which appear worsened compared to prior exam Assessment and Plan: 1) L hip pain Suspect secondary to severe DJD Discussed range of treatment options including [id number] medications to Surgical arthroplasty. Also discussed possibility of intra-articular steroid injections either done by myself with ultrasound or through [facility] radiology with fluoro guidance. However, given patient's current treatments for leukemia including chemotherapy I am uncertain if this would be contraindicated. Have sent a message to the patient's high lift driver/oncologist Dr. Nielson. Will await that response before further decisions 05/02/2023: Update Received response from Dr. Nielson, the patients high lift driver/oncologist Her current treatments not be a contraindication to steroid injections and we could proceed with injections if desired. 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 Given the degenerative change AVN would not be treated prophylactically. Recommendation would be to treat the DJD accordingly. Therefore MRI not needed in this instance Procedure note (hip injection), left : Time out: Prior to injection, a time out was called to confirm the administration of appropriate medicine, patient name, procedure and confirm to the best of our ability and knowledge the presence of any necessary risks and benefits. Patient verbalizes understanding. Ultrasound utilized to guide injection Ultrasound required due to: location of joint being too deep to accurately inject without ultrasound guidance and need to visualize specific joint recess Sterile techinique applied. Skin sterilized with alcohol swab. Hip injected using 3 inch, 22 gauge needle. Injected with 1 ml lidocaine 1%, triamcinolone acetonide 40mg/ml 1 ml. Patient tolerated procedure with no significant bleeding or adverse reaction. Patient instructed to call or return to clinic for fever or warmth and redness at injection site for potential infection. Patient also advised as to potential for steroid flare reaction including increased pain and redness at injection site which should be treated with ice and resolve within 24 hours. Yovani Whitten MD Primary Care Sports Medicine Orthopaedics [facility] [address] [facility] [place] [address] documented in this encounter Nursing Notes * Moraima Ceja RN - 05/07/2023 3:06 PM EDT Pt presents today for bilateral hips. Left more than right. Here for injection in left hip. Moraima Ceja RN documented in this encounter Plan of Treatment Upcoming Encounters Date Type Specialty Care Team Description 05/14/2023 Laboratory [facility] [place], Lab Scenery [address] [place] [address] 05/14/2023 Hem/Onc Treatment Hematology [place]cology [place], Chair 10 Hem Onc Scenery [address] [place] [address] 05/15/2023 Hem/Onc Treatment Hematology Oncology [place], Chair 2 Hem Onc Scenery [address] [place] [address] 05/16/2023 Hem/Onc Treatment Hematology Oncology [place], Chair 8 Hem Onc Scenery [address] [place] [address] 05/17/2023 Hem/Onc Treatment Hematology Oncology [place], Chair 8 Hem Onc Scenery [address] [place] [address] 05/24/2023 Imaging Radiology 06/03/2023 Laboratory Laboratory [place], Lab Scenery [address] [place] [address] 06/03/2023 Office Visit Hematology Oncology Corbin Nielson MD [address] [place] [address] 06/05/2023 Office Visit Pain Medicine Isatu Mitchell PA-C [address] [place] [address] 06/11/2023 Office Visit Cardiology Miya Jerez CRNP [address] [place] [address] 06/18/2023 Telemedicine Gastroenterology Syl Cohen DO [address] [place] [address] 07/09/2023 Office Visit Family Medicine Rayna Solares PA-C [address] [place] [address] 11/06/2023 Office Visit Family Medicine Joe Peng DO [address] [facility] [place] [address] Scheduled Orders Name Type Priority Associated Diagnoses Orde r Schedule POINT OF CARE US MAJOR JOINT INJECTION, ORTHO Medical Imaging Routine Primary osteoarthritis of left hip Ordered: 05/07/2023 Scheduled Procedures Name Priority Associated Diagnoses Date/Ti [...] 023, 12/04/2021, 08/15/2020, Additional history exists GFR 04/09/2024 04/09/2023, 080 02/2023, 02/11/2023, Additional history exists COLONOSCOPY-EVERY 3 YRS AGES [...] as of this encounter Visit Diagnoses Diagnosis Primary osteoarthritis of left hip- Primary Primary localized osteoarthrosis, pelvic region and thigh documented in this encounter Administered Medications Inactive Administered Medications - up to 3 most recent administrations Medication Order MAR Action Action Date Dose Rate Site lidocaine 1% 1 mL - triamcinolone acetonide 40 mg/mL 1 mL inj 2 mL 2 mL, Injection, ONCE, On Sat05/07/23 at 1600, For 1 dose, Lidocaine 1% 1mL Triamcinolone Acetonide 40 mg/mL 1 mL (Final concentration = 20 mg/mL) REFRIGERATE and SHAKE WELL Given 05/07/2023 3:17 PM EDT 2 mL Hip Left documented in this encounter Advance Directives Latest Code Status on File Code Status Date Activated Date Inactivated Comments Full Code 04/02/2017 4:50 AM 04/17/2017 3:02 PM This order reflects the patients wishes and were consensually agreed upon. Question Answer Comments Discussion of Advance Directives occurred with: Family Does the patient have a Living Will? No Does the patient have Health Care Power of Clinical Social Worker? No Code Status History Code Status Date Activated Date Inactivated Comments Full Code 06/15/2016 5:56 PM 08/09/2016 8:19 PM This order reflects the patients wishes and were consensually agreed upon. Question Answer Comments Discussion of Advance Directives occurred with: Patient Does the patient have a Living Will? No Does the patient have Health Care Power of Clinical Social Worker? No Full Code 05/15/2016 3:18 AM 06/08/2016 6:42 PM This order reflects the patients wishes and were consensually agreed upon. Question Answer Comments Discussion of Advance Directives occurred with: Not Discussed Care Teams Installation Helper Relationship Specialty Start Date End Date Joe Peng, [address] [place], [place] [address] PCP - General Family Medicine 05/19/18 documented as of this encounter
--- OUTSIDE RECORDS SUMMARY | 2023-08-22 00:32 | External Medical Summary | Summary of Care ---
Author Name Unknown Organization [facility] Address [address] [place] [address] Phone [phone] Care Team Providers Care Route Driver Name Role Phone Joe Peng DO Primary Care Provider [phone] Encounter Details Date Type Department Care Team Description 05/02/2023 Patient Reported Data Patient Survey Ortho [facility] Allergies Active Allergy Reactions Severity Noted Date Comments Amoxicillin Nausea/vomiting 11/14/2015 Penicillins Nausea/vomiting Low 08/12/2007 tolerated cephalosporins in past Other reaction(s): Nausea Only Other reaction(s): "makes me nervous", Nausea documented as of this encounter (statuses as of 05/02/2023) Medications Medication Sig Dispensed Refills Start Date [...] the evening. 120 Capsule 5 3 Active documented as of this encounter (statuses as of 05/02/2023) Active Problems Problem Noted Date Hypotension 06/19/2022 [...] as of this encounter (statuses as of 05/02/2023) Resolved Problems Problem Noted Date Resolved Date [...] as of this encounter (statuses as of 05/02/2023) Immunizations Name Administration Dates Next Due COVID-19 mRNA, LNP-s, No Pre serve, 2-Dose Series (Pfizer) 05/08/2021,08/29/2020,08/08/2020 DTaP Dipth/Tet/Acell Pertussis (Infanrix), Peds 12/25/2017,10/30/2017,09/25/2017 IPV - Polio Virus Vaccine (Inact) 12/25/2017,,09/30/2017 MMR - Measles/Mumps/Rubella Vaccine 09/30/2017 Pneumococcal Conjugate Vacc, 13 Valent (Prevnar) 05/25/2019,12/25/2017,10/30/2017,09/25 Pneumococcal Polysaccharide PPV23 (Pneumovax) 07/06/2022 Seasonal Influenza, PF, 6 mo ns & Above, IM , (Flulaval) 04/27/2020,05/25/2019,05/19/2018 Seasonal Influenza, Quadriva lent Hd (Fluzone [...] Encounters Date Type Specialty Care Team Description 05/07/2023 Office Visit Orthopedics Yovani Whitten MD [address] [place] [address] 05/14/2023 Laboratory [facility] [place], Lab Scenery [address] [place] [address] 05/14/2023 Hem/Onc Treatment Hematology Oncology [place], Chair 10 Hem Onc Scenery [address] [place] [address] 05/15/2023 Hem/Onc Treatment Hematology Oncology [place], Chair 2 Hem Onc Scenery [address] [place] [address] 05/16/2023 Hem/Onc Treatment Hematology Oncology [place], Chair 8 Hem Onc Scenery [address] [place] [address] 05/17/2023 Hem/Onc Treatment Hematology Oncology [place], Chair 8 Hem Onc Scenery [address] [place] [address] 05/24/2023 Imaging Radiology 06/03/2023 Laboratory Laboratory [place], Lab Scenery [address] [place] [address] 06/03/2023 Office Visit Hematology Oncology Corbin Nielson MD [address] [place] [address] 06/05/2023 Office Visit Pain Medicine Isatu Mitchell PA-C [address] [place] [address] 06/11/2023 Office Visit Cardiology Miya Jerez CRNP [address] [place] [address] 06/18/2023 Telemedicine Gastroenterology ySl Cohen DO [address] [place] [address] 07/09/2023 Office Visit Family Medicine Rayna Solares PA-C [address] [facility] [place] [address] 11/06/2023 Office Visit Family Medicine Joe Peng DO [address] [facility] [place] [address] Scheduled Procedures Name Priority Associated Diagnoses Date/Ti me COLONOSCOPY FLEXIBLE PROXIMAL DIAGNOSTIC Recall History of colon polyps Health Maintenance Due Date Last Done Comments Zoster Vaccines (1 of 2) 01/03/1975 DIABETES-EYE EXAM 11/25/2019 11/24/2018 COVID-19 Vaccine (4 - Pfizer risk series) 07/03/2021 05/08/2021, 08/29/2020, 08/08/2020 Diabetic Foot Exam 01/10/2022 01/10/2021, 1 , 05/19/2018 HbA1c 06/12/2023 12/10/2022, 05/06, 12/04/2021, Additional history [...] the patient have Health Care Power of Industrial Engineering Analyst? No Code Status History Code Status Date Activated Date Inactivated Comments Full Code 06/15/2016 5:56 PM 08/09/2016 8:19 PM This order reflects the patients wishes and were consensually agreed upon. Question Answer Comments Discussion of Advance Directives occurred with: Patient Does the patient have a Living Will? No Does the patient have Health Care Power of Industrial Engineering Analyst? No Full Code 05/15/2016 3:18 AM 06/08/2016 6:42 PM This order reflects the patients wishes and were consensually agreed upon. Question Answer Comments Discussion of Advance Directives occurred with: Not Discussed Care Teams Route Driver Relationship Specialty Start Date End Date Joe Peng, [address] [place] [address] PCP - General Family Medicine 05/19/18 documented as of this encounter
--- OUTSIDE RECORDS SUMMARY | 2023-08-22 00:32 | External Medical Summary ---
Author Name Unknown Address Unknown Organization [id number] [address] [place] [address] Laboratory Report Ordering Provider Test Date Status APRYL MARINELLI 05/14/2023 12:26:43 Final Observation Date Value Abnormality Reference (Units ) Status BUN 05/14/2023 12:26:43 8 6-20 (mg/dL) Final Creatinine 05/14/2023 12:26:43 0.8 0.5-1.0 (mg/dL) Final Glomerular filtration rate/1.73 sq M.predicted [Volume Rate/Area] in Serum, Plasma or Blood by Creatinine-based formula (CKD-EPI) 05/14/2023 12:26:43 83 >=60 (mL/min) Final eGFR is calculated based on the CKD-EPI 2020 equation SODIUM 05/14/2023 12:26:43 141 135-146 (m mol/L) Final Potassium 05/14/2023 12:26:43 4.2 3.5-5.1 (m mol/L) Final Cl 05/14/2023 12:26:43 104 98-107 (mm ol/L) Final CO2 05/14/2023 12:26:43 30 22-32 (mmo l/L) Final Anion gap 05/14/2023 12:26:43 7 7-15 (mmol /L) Final Glucose 05/14/2023 12:26:43 85 70-120 (mg /dL) Final Albumin 05/14/2023 12:26:43 3.5 Below low normal 3.8 -5.0 (g/dL) Final AST (Aspartate aminotransferase) 05/14/2023 12:26:43 29 10-35 (U/L) Fin al Alk Phos 05/14/2023 12:26:43 313 Above high normal 35 -130 (U/L) Final Bilirubin, Total 05/14/2023 12:26:43 0.3 <=1 .2 (mg/dL) Final Calcium 05/14/2023 12:26:43 9.1 8.4-10.2 ( mg/dL) Final Protein 05/14/2023 12:26:43 6.6 6.0-8.3 (g /dL) Final ALT (Alanine aminotransferase) 05/14/2023 12:26:43 26 10-35 (U/L) Dieudonne clemens Performing Location [facility] [place] [address]
--- OUTSIDE RECORDS SUMMARY | 2023-08-22 00:32 | External Medical Summary | Summary of Care ---
Author Name Unknown Organization [facility] Address [address] [place] [address] Phone [phone] Care Team Providers Care Airframe Technical Officer Name Role Phone Joe Peng DO Primary Care Provider [phone] Reason for Visit * Reason Comments Chemotherapy Dacogen Encounter Details Date Type Department Care Team Description 05/14/2023 Hem/Onc Treatment Hematology/Oncology Treatment, [place] [address] [place] [address] Patti, Chair 10 Hem Onc Scenery [address] [place] [address] Arrived Allergies Active Allergy Reactions Severity Noted Date [...] 016 07/31/2017 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 encounter 02/12/2012 04/27/2015 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 Pt had labs performed prior, ANC 0.77. HOLD chemo cycle thisweek. Pt rescheduled for labs and chemo next week. Pt discharged in stable condition. documented in this encounter Plan of Treatment Upcoming Encounters Date Type Specialty Care Team Description 05/21/2023 Laboratory [facility] [place], Lab Scenery [address] [place] [address] 05/21/2023 Hem/Onc Treatment Hematology Oncology [place], Chair 6 Hem Onc Scenery [address] [place] [address] 05/22/2023 Hem/Onc Treatment Hematology Oncology [place], Chair 10 Hem Onc Scenery [address] [place] [address] 05/23/2023 Hem/Onc Treatment Hematology Oncology [place], Chair 10 Hem Onc Scenery [address] [place] [address] 05/24/2023 Hem/Onc Treatment Hematology Oncology [place], Chair 6 Hem Onc Scenery [address] [place] [address] 05/24/2023 Imaging Radiology 06/03/2023 Laboratory Laboratory [place], Lab Scenery [address] [place] [address] 06/03/2023 Office Visit Hematology Oncology Corbin Nielson MD [address] [place] [address] 06/05/2023 Office Visit Pain Medicine Isatu Mitchell PA-C [address] [place] [address] 06/11/2023 Office Visit Cardiology Miya Jerez CRNP [address] [place] [address] 06/18/2023 Telemedicine Gastroenterology Syl Cohen DO [address] [place] [address] 07/09/2023 Office Visit Family Medicine Rayna Solares PA-C [address] [place] [address] 11/06/2023 Office Visit Family Medicine Joe Peng DO [address] [place] [address] Scheduled Procedures Name Priority Associated Diagnoses Date/Ti [...] the patient have Health Care Power of Titrator? No Code Status History Code Status Date Activated Date Inactivated Comments Full Code 06/15/2016 5:56 PM 08/09/2016 8:19 PM This order reflects the patients wishes and were consensually agreed upon. Question Answer Comments Discussion of Advance Directives occurred with: Patient Does the patient have a Living Will? No Does the patient have Health Care Power of Titrator? No Full Code 05/15/2016 3:18 AM 06/08/2016 6:42 PM This order reflects the patients wishes and were consensually agreed upon. Question Answer Comments Discussion of Advance Directives occurred with: Not Discussed Care Teams Airframe Technical Officer Relationship Specialty Start Date End Date Joe Peng, DO [address] [place] [address] PCP - General Family Medicine 05/19/18 documented as of this encounter
--- OUTSIDE RECORDS SUMMARY | 2023-08-22 00:32 | External Medical Summary ---
Author Name Unknown Address Unknown Organization [facility] [place] [address] Laboratory Report Ordering Provider Test Date Status APRYL MARINELLI 05/14/2023 12:26:43 Final Observation Date Value Abnormality Reference (Units ) Status WBC, Total 05/14/2023 12:26:43 3.56 Below low normal 4. 00-10.80 (K/uL) Final RBC 05/14/2023 12:26:43 3.21 3.85-5.15 (M/uL) Final Hemoglobin 05/14/2023 12:26:43 11.6 Below low normal 12 .0-15.3 (g/dL) Final HCT 05/14/2023 12:26:43 35.8 Below low normal 36. 0-45.2 (%) Final MCV 05/14/2023 12:26:43 111.5 81.5-97.5 (fL) Final MCH 05/14/2023 12:26:43 36.1 27.0-34.0 (pg) Final MCHC 05/14/2023 12:26:43 32.4 32.0-36.0 (g/dL) Final RDW 05/14/2023 12:26:43 14.0 11.5-15.5 (%) Final Platelets 05/14/2023 12:26:43 293 140-400 (K /uL) Final MPV 05/14/2023 12:26:43 8.3 6.6-11.1 ( fL) Final Performing Location [facility] [place] [address]
--- OUTSIDE RECORDS SUMMARY | 2023-08-22 00:32 | External Medical Summary | Summary of Care ---
Author Name Unknown Organization [facility] Address [address] [place] [address] Phone [phone] Care Team Providers Care Sign Painter Apprentice Name Role Phone Joe Peng DO Primary Care Provider [phone] Reason for Visit * Reason Comments Acute Pt reports she fell yesterday at home. Reports she hit her left side, ribs and head. Denies LOC, dizziness, lightheadedness. Encounter Details Date Type Department Care Team Description 04/30/2023 Office Visit Family Practice [facility] [address] [facility] [place] [address] Pili Yo PA-C [address] [facility] [address] Rib pain on left side*; Fall, initial encounter Allergies Active Allergy Reactions Severity Noted Date Comments Amoxicillin Nausea/vomiting 11/14/2015 Penicillins Nausea/vomiting Low 08/12/2007 tolerated cephalosporins in past Other reaction(s): Nausea Only Other reaction(s): "makes me nervous", Nausea documented as of this encounter (statuses as of 05/03/2023) Medications Medication Sig Dispensed Refills Start Date [...] nausea 30 Tablet 11 03/08/20 22 Active Metoprolol Succinate ER 25 MG Oral Tablet Extended Release 24 Hour (toPROL XL)Indications:Uri otsubo cardiomyopathy TAKE 1/2 TABLET DAILY 45 Tablet 3 04/13/20 22 Active LORazepam 0.5 MG Oral Tablet [...] as needed (pain). 1 g 0 03/15/20 Active Gabapentin 300 MG Oral Capsule (Neurontin)Indicat ions:Lumbar radiculopathy Take 2 Capsules by mouth in the morning and 2 Capsules in the evening. 120 Capsule 5 04/26/20 Active HYDROcodone-Acetam inophen 10-325 MG Oral Tablet Take 1 Tablet by mouth every 6 hours as needed for Pain, Breakthrough. Pt stated she took some old hydrocodone-acetami nophen to assist with her pain 0 023 Discontinued documented as of this encounter (statuses as of 05/03/2023) Active Problems Problem Noted Date Hypotension 06/19/2022 [...] as of this encounter (statuses as of 05/03/2023) Resolved Problems Problem Noted Date Resolved Date [...] 016 07/31/2017 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 encounter 02/12/2012 04/27/2015 long-term current use of anticoagulant therapy 0 02/12/2012 04/27/2015 Overview: ICD-10 update of inactive term Other disorder of menstruati on and other abnormal bleeding from female genital tract 09/16/2007 04/27/2015 Uterine leiomyoma 09/16/2007 04/27/2015 documented as of this encounter (statuses as of 05/03/2023) Immunizations Name Administration Dates Next Due COVID-19 mRNA, LNP-s, No Pre serve, 2-Dose Series (Altia) 05/08/2021,08/29/2020,08/08/2020 DTaP Dipth/Tet/Acell Pertussis (Infanrix), Peds 12/25/2017,10/30/2017,09/25/2017 [...] Sign Reading Time Taken Comments Blood Pressure 108/70 04/30/2023 11:33 AM EDT Pulse 74 04/30/2023 11:33 AM EDT Temperature - - Respiratory Rate 18 04/30/2023 11:33 AM EDT Oxygen Saturation 99% 04/30/2023 11:33 AM EDT Inhaled Oxygen Concentration - - [...] as of this encounter Progress Notes * Pili Yo PA-C - 04/30/2023 11:41 AM EDT SUBJECTIVE: Codi Soto is a 68 year old female that presents for Acute (Pt reports she fell yesterday at home. Reports she hit her left side, ribs and head. Denies LOC, dizziness, lightheadedness. ) Here with today. Patient states that she slipped on hardwood floor and feel onto left side. Struck left side, left side of head. She landed on handle of basket- wood basket. Since fall she has been experiencing left sided chest wall pain. Notices it most form sitting to standing and taking deep breath. No SOB, no headache, no dizziness, no LOC, no other chest pain, tachycardia, nausea, vomiting, diarrhea, no back pain, numbness, tingling, gait changes. No joint pain orswelling. No hemoptysis, wheezing, cough. She does struggle with balance issues normal. Last fall prior to this was 6 months ago. Feels like she is doing better. SHe is not sure if this is what contributed to fall. Just took prescribed medications. No pain medicines. She is on chemotherapy. 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 Nursing Notes: Yana Haile LPN 04/30/23 1133 Sign at exiting of workspace The patient has been properly identified by confirmation of name and date of . Chief Complaint Patient presents with Acute Pt reports she fell yesterday at home. Reports she hit her left side, ribs and head. Denies LOC, dizziness, lightheadedness. ROS: See HPI for pertinent positive and negatives HISTORY: Past Medical History: Diagnosis Date Acute [...] performed by Chandana Raymond MD at OR [facility] [place] BONE MARROW ASPIRATION 08/02/2016 BONE MARROW BIOPSY 08/02/2016 COLONOSCOPY, DIAGNOSTIC (RECTUM) 06/04/2014 diverticulosis, repeat 5 yrs COLONOSCOPY, DIAGNOSTIC (RECTUM) 05/18/2019 adenomatous & hyperplastic polyp, repeat 3 yrs/[facility] COLONOSCOPY, DIAGNOSTIC (RECTUM) 05/24/2022 benign adenomatous polyps, repeat 3 yrs / COLONOSCOPY FLEXIBLE PROXIMAL DIAGNOSTIC performed by Syl Cohen DO at ENDOSCOPY [facility] EGD, FLEXIBLE, DIAGNOSTIC 01/11/2016 normal bx/ESOPHAGOGASTRODUODENOSCOPY (EGD), FLEXIBLE, TRANSORAL, DIAGNOSTIC performed by Cam Ellis MD at ENDOSCOPY [facility] EGD, FLEXIBLE, DIAGNOSTIC 05/18/2019 normal bx/[facility] FISSURECTOMY W/ SPHINCTEROTOMY INFORMATION stem cell transplant , 12/19 IR BIOPSY 12/28/2015 TRANSCATHETER BIOPSY performed by Haris Tim MD at RADIOLOGY [facility] [place] MISCELLANEOUS ORDER ([facility] ONLY) N/A 04/01/2017 REMOVAL OF HOLBROOK CATHETER [facility] DR. DAVIS 04/01/17 TMJ ARTHROSCOPY DISC REPOSIT Social History Tobacco Use Smoking status: Never [...] Grandfather (Paternal) Breast Cancer Cousin (Maternal) 30s Outpatient Medications Marked as Taking for the 04/30/23 encounter (Office Visit) with Pili Yo PA-C Medication Sig Gabapentin 300 MG Oral Capsule (Neurontin) Take 2 Capsules by mouth in the morning and 2 Capsules in the evening. Acetaminophen 500 MG Oral Tablet Take 1 Tablet by mouth every 6 hours as needed. Diclofenac Sodium 1 % External Gel (Voltaren) Apply topically to affected area 3 times a day as needed (pain). Omeprazole 20 MG Oral Capsule Delayed Release (PriLOSEC) TAKE 1 CAPSULE DAILY Ondansetron 8 MG Oral Tablet Disintegrating Place 1 Tablet on tongue every 8 hours as needed for Nausea. dissolve on tongue. Levothyroxine Sodium 150 MCG Oral Tablet (Levoxyl) TAKE 1 TABLET IN THE MORNING AT LEAST 30 MINUTESPRIOR TO BREAKFAST OR OTHERMEDICATIONS Cyanocobalamin 1000 MCG Oral Tablet (Cyanocobalamin) Take 1 Tablet by mouth in the morning. LORazepam 0.5 MG Oral Tablet (Ativan) Take by mouth 1 Tablet daily as needed for Anxiety. Metoprolol Succinate ER 25 MG Oral Tablet Extended Release 24 Hour (toPROL XL) TAKE 1/2 TABLET DAILY Prochlorperazine Maleate 10 MG Oral Tablet (Compazine) Take by mouth 1 Tablet every 8 hours as needed for Nausea. Every 6 hours as needed for nausea busPIRone HCl 5 MG Oral Tablet (Buspar) Takes 2 tabs in the morning, 1 at noon, 2 tabs with dinner Potassium Chloride ER 20 MEQ Oral Tablet Extended Release Take 1 Tablet by mouth in the morning. buPROPion HCl ER (XL) 150 MG Oral Tablet Extended Release 24 Hour (Wellbutrin XL) Take 1 Tablet by mouth in the morning. buPROPion HCl ER (XL) 300 MG Oral Tablet Extended Release 24 Hour (Wellbutrin XL) Take 1 Tablet by mouth in the morning. Magnesium 400 MG TABS Take 2 tabs twice daily Calcium Carb-Cholecalciferol 1000-800 MG-UNIT Oral Tablet Take 1 Tablet by mouth in the morning. Review of patient's allergies indicates: Allergen Reactions Amoxicillin Nausea/vomiting Penicillins Nausea/vomiting tolerated cephalosporins in past Other reaction(s): Nausea Only Other reaction(s): "makes me nervous", Nausea OBJECTIVE: BP 108/70 | Pulse 74 | Resp 18 | LMP 03/20/2009 | SpO2 99% General appearance: awake, alert, no apparent distress, cooperative Head: Normocephalic, No masses, lesions, tenderness or abnormalities Eyes: conjunctiva are pink and non-injected, sclera clear, PERRL, EOMI Ears: External ears normal, Canals clear, TM's normal light reflex, no erythema Mouth: no exudate, no erythema, lips, buccal mucosa, and tongue normal, and mucous membranes are moist Neck: supple, no adenopathy, no bruits, thyroid normal size, non-tender, without nodularity Heart: regular rate & rhythm, no gallops, and no murmurs Lungs: lungs clear to auscultation, no rales, wheezing, or ronchi, and breathing non-labored Chest: tenderness over left lateral chest wall mid axillary line, 4-6th ribs, no cyanosis, deformity or bruising EXTREMITIES: less than 2 second capillary refill, no joint deformities, effusion, or inflammation, no edema, no cyanosis NEURO: alert & oriented x 3 with fluent speech, no focal motor/sensory deficits, gait normal, negative findings: rapid alternating movements normal, Romberg normal, Mini Mental Status Exam: 25 out of 30 Skin: skin color, texture, turgor are normal, no rashes ASSESSMENT/PLAN: Rib pain on left side (Primary) - XR RIBS UNILATERAL W/PA CHEST MINIMUM 3 VIEWS Fall, initial encounter - XR RIBS UNILATERAL W/PA CHEST MINIMUM 3 VIEWS No headache, LOC, neurologic changes to warrant head CT today, continue to monitor for signs/symptoms (new headache, dizziness, numbness, tingling, confusion). Discussed incentive spirometry for rib fractures, should be doing every 1-2 hours for first week. Continue to remain mobile as tolerated. Advised to discuss assisted devices (cane, walker) with PCPgiven ongoing balance concerns. Discussed hydrocodone for pain- prior auth likely. Patient advised may not be approved immediately.Continue tylenol (4g/day) as needed for pain. Ice area 10 minutes 3-4 times daily. Rest Patients goals for plan of care were discussed. Total time today including reviewing chart before the visit, pertinent labs, imaging reports, face to face time, and documentation time was 35 minutes. Follow up: Instructed to follow up or notify Primary Care Provider if no better in: 2-3 day(s), andto ER immediately if signs and symptoms worsen. Pili Yo PA-C Family [facility] [address] [facility] [address] documented in this encounter Nursing Notes * Yana Haile LPN - 04/30/2023 11:32 AM EDT The patient has been properly identified by confirmation of name and date of . Chief Complaint Patient presents with Acute Pt reports she fell yesterday at home. Reports she hit her left side, ribs and head. Denies LOC, dizziness, lightheadedness. documented in this encounter Plan of Treatment Upcoming Encounters Date Type Specialty Care Team Description 05/07/2023 Office Visit [facility]oped[facility] [place] [address] 05/14/2023 Laboratory Laboratory [place], Lab Scenery [address] [place] [address] 05/14/2023 Hem/Onc Treatment Hematology Oncology [place], Chair 10 Hem Onc Scenery [address] [place] [address] 05/15/2023 Hem/Onc Treatment Hematology Oncology [place], Chair 2 Hem Onc Scenery [address] [place] [address] 05/16/2023 Hem/Onc Treatment Hematology Oncology [place], Chair 8 Hem Onc Scenery [address] [place] [address] 05/17/2023 Hem/Onc Treatment Hematology Oncology [place], Chair 8 Hem Onc Scenery [address] [place] [address] 05/24/2023 Imaging Radiology 06/03/2023 Laboratory Laboratory [place], Lab Scenery [address] [place] [address] 06/03/2023 Office Visit Hematology Oncology [place] Nielson MD [address] [place] [address] 06/05/2023 Office Visit Pain Medicine Isatu Mitchell PA-C [address] [place] [address] 06/11/2023 Office Visit Cardiology Miya Jerez CRNP [address] [place] [address] 06/18/2023 Telemedicine Gastroenterology Syl Cohen DO [address] [place] [address] 07/09/2023 Office Visit Family Medicine Rayna Solares PA-C [address] [place] [address] 11/06/2023 Office Visit Family Medicine Joe Peng DO [address] [place] [address] Scheduled Procedures Name Priority Associated Diagnoses Date/Ti [...] 08/15/2020, Additional history exists GFR 04/09/2024 04/09/2023, 02/2023, 02/11/2023, Additional history exists COLONOSCOPY-EVERY 3 [...] Procedure Name Priority Date/Time Associated Diagnosis Comments XR RIBS UNILATERAL W/PA CHEST MINIMUM 3 VIEWS STAT 04/30/2023 12:40 PM EDT Rib pain on left side Fall, initial encounter documented in this encounter Results * XR RIBS UNILATERAL W/PA CHEST MINIMUM 3 VIEWS (04/30/2023 12:40 PM EDT) Anatomical Region Laterality Modality Chest Computed Radiogr aphy 04/30/2023 12:5 3 PM EDT Narrative 04/30/2023 12:51 PM EDT EXAM: XR RIBS UNILATERAL W/PA CHEST MINIMUM 3 VIEWS HISTORY: left rib pain s/p fall yesterday, concern for fracture COMPARISON: Chest radiograph 04/01/2017. FINDINGS: Right chest wall port terminates in the superior vena cava. Acute mildly displaced left 4th rib fracture. Age-indeterminate fracture deformity of the left 8th rib. No focal pulmonary consolidation. No pleural effusion or pneumothorax. Cardiac silhouette is normal in size. Degenerative changes of the spine. IMPRESSION: 1. Acute mildly displaced left 4th rib fracture. 2. Age-indeterminate fracture deformity of the left 8th rib. 3. No pneumothorax. Procedure Note David Pineda MD - 04/30/2023 EXAM: XR RIBS UNILATERAL W/PA CHEST MINIMUM 3 VIEWS HISTORY: left rib pain s/p fall yesterday, concern for fracture COMPARISON: Chest radiograph 04/01/2017. FINDINGS: Right chest wall port terminates in the superior vena cava. Acute mildly displaced left 4th rib fracture. Age-indeterminate fracturedeformity of the left 8th rib. No focal pulmonary consolidation. No pleural effusion or pneumothorax. Cardiac silhouette is normal in size. Degenerative changes of the spine. IMPRESSION: 1. Acute mildly displaced left 4th rib fracture. 2. Age-indeterminate fracture deformity of the left 8th rib. 3. No pneumothorax. Pili Yo PA-C RADIOLOGY ([facility]) documented in this encounter Visit Diagnoses Diagnosis Rib pain on left side- Primary Chest pain, unspecified Fall, initial encounter documented in this encounter Advance Directives Latest Code Status on File Code Status Date Activated Date Inactivated Comments Full Code 04/02/2017 4:50 AM 04/17/2017 3:02 PM This order reflects the patients wishes and were consensually agreed upon. Question Answer Comments Discussion of Advance Directives occurred with: Family Does the patient have a Living Will? No Does the patient have Health Care Power of Processing Technologist? No Code Status History Code Status Date Activated Date Inactivated Comments Full Code 06/15/2016 5:56 PM 08/09/2016 8:19 PM This order reflects the patients wishes and were consensually agreed upon. Question Answer Comments Discussion of Advance Directives occurred with: Patient Does the patient have a Living Will? No Does the patient have Health Care Power of Processing Technologist? No Full Code 05/15/2016 3:18 AM 06/08/2016 6:42 PM This order reflects the patients wishes and were consensually agreed upon. Question Answer Comments Discussion of Advance Directives occurred with: Not Discussed Care Teams Sign Painter Apprentice Relationship Specialty Start Date End Date Joe Peng, DO [address] [place] [address] PCP - General Family Medicine 05/19/18 documented as of this encounter
--- OUTSIDE RECORDS SUMMARY | 2023-08-22 00:32 | External Medical Summary ---
Author Name Unknown Address Unknown Organization K09:[facility] [place] [address] Laboratory Report Ordering Provider Test Date Status APRYL MARINELLI 05/14/2023 12:26:43 Final Observation Date Value Abnormality Reference (Units ) Status Magnesium 05/14/2023 12:26:43 1.7 1.5-2.6 (m g/dL) Final Performing Location [facility] [place] [address]
--- OUTSIDE RECORDS SUMMARY | 2023-08-22 00:32 | External Medical Summary | Summary of Care ---
Author Name Unknown Organization [facility] Address [address] [place] [address] Phone [phone] Care Team Providers Care Cutter Machine Tender Name Role Phone Joe Peng DO Primary Care Provider [phone] Reason for Visit * Reason Onset Date Comments Treatment 05/14/2023 Encounter Details Date Type Department Care Team Description 05/14/2023 Telephone Hematology/Oncology [facility] [place] [address] [place] [address] [place] Nielson MD [address] [place] [address] Treatment Allergies Active Allergy Reactions Severity Noted [...] 016 07/31/2017 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 encounter 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 0 02/12/2012 04/27/2015 Overview: ICD-10 update of inactive term Other disorder of menstruati on and other abnormal bleeding from female genital tract 09/16/2007 04/27/2015 Uterine leiomyoma 09/16/2007 04/27/2015 documented as of this encounter (statuses as of 05/14/2023) Immunizations Name Administration Dates Next Due COVID-19 mRNA, LNP-s, No Pre serve, 2-Dose Series (Liquid Scenarios) 05/08/2021,08/29/2020,08/08/2020 DTaP Dipth/Tet/Acell Pertussis (Infanrix), Peds 12/25/2017,10/30/2017,09/25/2017 [...] encounter Miscellaneous Notes * Telephone Encounter - Melissa Lynn RN - 05/14/2023 2:54 PM EDT Pt arrived for Dacogen infusion today. She had labs performed prior, ANC 0.77. HOLD chemo today, delay by one week. NS--Please adjust schedule accordingly documented in this encounter Plan of Treatment Upcoming Encounters Date Type Specialty Care Team Description 05/21/2023 Laboratory Laboratory [place], Lab Scenery [address] [place] [address] 05/21/2023 Hem/Onc Treatment Hematology Oncology [place], Chair 6 Hem Onc Scenery [address] [place] [address] 05/22/2023 Hem/Onc Treatment Hematology Oncology [place], Chair 10 Hem Onc Scenery [address] [place] [address] 05/23/2023 Hem/Onc Treatment Hematology Oncology [place], Chair 10 Hem Onc Scenery [address] [place] [address] 05/24/2023 Hem/Onc Treatment Hematology Oncology [place], Chair 6 Hem Onc Scenery [address] [place] [address] 05/24/2023 Imaging Radiology 06/03/2023 Laboratory Laboratory [place], Lab Scenery [address] [place] [address] 06/03/2023 Office Visit Hematology Oncology [place] Nielson MD [address] [place] [address] 06/05/2023 Office Visit Pain Medicine Isatu Mitchell PA-C [address] [place] [address] 06/11/2023 Office Visit Cardiology Miya Jerez CRNP [address] [place] [address] 06/18/2023 Telemedicine Gastroenterology Syl Cohen DO [address] [place] [address] 07/09/2023 Office Visit Family Medicine [facility]na [facility] [address] [facility] [address] 11/06/2023 Office Visit Family Medicine Joe Peng DO [address] [place], [place] [address] Scheduled Procedures Name Priority Associated Diagnoses Date/Ti [...] the patient have Health Care Power of Lorry Weigher? No Code Status History Code Status Date Activated Date Inactivated Comments Full Code 06/15/2016 5:56 PM 08/09/2016 8:19 PM This order reflects the patients wishes and were consensually agreed upon. Question Answer Comments Discussion of Advance Directives occurred with: Patient Does the patient have a Living Will? No Does the patient have Health Care Power of Lorry Weigher? No Full Code 05/15/2016 3:18 AM 06/08/2016 6:42 PM This order reflects the patients wishes and were consensually agreed upon. Question Answer Comments Discussion of Advance Directives occurred with: Not Discussed Care Teams Cutter Machine Tender Relationship Specialty Start Date End Date Joe Peng, DO [address] [place] [address] PCP - General Family Medicine 05/19/18 documented as of this encounter
--- OUTSIDE RECORDS SUMMARY | 2023-08-22 00:32 | External Medical Summary | Summary of Care ---
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 0 02/12/2012 04/27/2015 Overview: ICD-10 update of inactive term Other disorder of menstruati on and other abnormal bleeding from female genital tract 09/16/2007 04/27/2015 Uterine leiomyoma 09/16/2007 04/27/2015 documented as of this encounter (statuses as of 05/14/2023) Immunizations Name Administration Dates Next Due COVID-19 mRNA, LNP-s, No Pre serve, 2-Dose Series (TweetMeme) 05/08/2021,08/29/2020,08/08/2020 DTaP Dipth/Tet/Acell Pertussis (Infanrix), Peds 12/25/2017,10/30/2017,09/25/2017 [...] Date Type Specialty Care Team Description 05/14/2023 Hem/Onc Treatment Hematology [place]cology [place], Chair 10 Hem Onc Scenery [address] [place] [address] Arrived 05/15/2023 Hem/Onc Treatment Hematology Oncology [place], Chair 2 Hem Onc Scenery [address] [place] [address] 05/16/2023 Hem/Onc Treatment Hematology Oncology [place], Chair 8 Hem Onc Scenery [address] [place] [address] 05/17/2023 Hem/Onc Treatment Hematology Oncology [place], Chair 8 Hem Onc Scenery [address] [place] [address] 05/24/2023 Imaging Radiology 06/03/2023 Laboratory Laboratory [place], Lab Scenery [address] [place] [address] 06/03/2023 Office Visit Hematology Oncology [place] Nielson MD [address] [place] [address] 06/05/2023 Office Visit Pain Medicine Isatu Mitchell PA-C [address] [place] [address] 06/11/2023 Office Visit Cardiology Miya Jerez CRNP [address] [place] [address] 06/18/2023 Telemedicine Gastroenterology Syl Cohen DO [address] [place] [address] 07/09/2023 Office Visit Family Medicine Rayna Solares PA-C [address] [facility] [place] [address] 11/06/2023 Office Visit Family Medicine Joe Peng DO [address] [place] [address] Pending Results Name Type Priority Associated Diagnoses Date /Time CBC WITH WBC DIFFERENTIAL Lab STAT 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) Hypomagnesemia 05/14/2023 12:26 PM EDT COMPREHENSIVE METABOLIC PANEL Lab STAT 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 No Code Status History Code Status Date Activated Date Inactivated Comments Full Code 06/15/2016 5:56 PM 08/09/2016 8:19 PM This order reflects the patients wishes and were consensually agreed upon. Question Answer Comments Discussion of Advance Directives occurred with: Patient Does the patient have a Living Will? No Does the patient have Health Care Power of Press Brake Operator? No Full Code 05/15/2016 3:18 AM 06/08/2016 6:42 PM This order reflects the patients wishes and were consensually agreed upon. Question Answer Comments Discussion of Advance Directives occurred with: Not Discussed Care Teams Electronics Computer Mechanic Relationship Specialty Start Date End Date Joe Peng, DO [address] [place] [address] PCP - General Family Medicine 05/19/18 documented as of this encounter
--- OUTSIDE RECORDS SUMMARY | 2023-08-22 00:32 | External Medical Summary ---
Author Name Unknown Address Unknown Organization K[facility] [place] [address] Laboratory Report Ordering Provider Test Date Status APRYL MARINELLI 05/14/2023 12:26:43 Final Observation Date Value Abnormality Reference (Units ) Status Nucleated erythrocytes/100 leukocytes [Ratio] in Blood by Automated count 05/14/2023 12:26:43 Final Variant lymphocytes [Presence] in Blood by Light microscopy 05/14/2023 12:26:43 Present Abnormal None Seen Final Performing Location [facility] [place] [address]
--- OUTSIDE RECORDS SUMMARY | 2023-08-22 00:32 | External Medical Summary | Summary of Care ---
Author Name Unknown Organization [facility] Address [address] [place] [address] Phone [phone] Care Team Providers Care Label Cutter Name Role Phone Joe Peng DO Primary Care Provider [phone] Encounter Details Date Type Department Care Team Description 05/10/2023 Orders Only Hematology/Oncology, [facility] [address] [place] [address] Corbin Nielson MD [address] [place] [address] Allergies Active Allergy Reactions Severity Noted Date Comments Amoxicillin Nausea/vomiting 11/14/2015 Penicillins Nausea/vomiting Low 08/12/2007 tolerated cephalosporins in past Other reaction(s): Nausea Only Other reaction(s): "makes me nervous", Nausea documented as of this encounter (statuses as of 05/10/2023) Medications Medication Sig Dispensed Refills Start Date [...] as of this encounter (statuses as of 05/10/2023) Active Problems Problem Noted Date Hypotension 06/19/2022 [...] as of this encounter (statuses as of 05/10/2023) Resolved Problems Problem Noted Date Resolved Date [...] 016 07/31/2017 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 encounter 02/12/2012 04/27/2015 alf current use of anticoagulant therapy 0 02/12/2012 04/27/2015 Overview: ICD-10 update of inactive term Other disorder of menstruati on and other abnormal bleeding from female genital tract 09/16/2007 04/27/2015 Uterine leiomyoma 09/16/2007 04/27/2015 documented as of this encounter (statuses as of 05/10/2023) Immunizations Name Administration Dates Next Due COVID-19 mRNA, LNP-s, No Pre serve, 2-Dose Series ([employer]) 05/08/2021,08/29/2020,08/08/2020 DTaP Dipth/Tet/Acell Pertussis (Infanrix), Peds 12/25/2017,10/30/2017,09/25/2017 [...] Specialty Care Team Description 05/14/2023 Laboratory Laboratory [place], Lab Scenery [address] [place] [address] 05/14/2023 Hem/Onc Treatment Hematology [facility]cology [place], Chair 10 Hem Onc Scenery [address] [place] [address] 05/15/2023 Hem/Onc Treatment Hematology [facility] [place], Chair 2 Hem Onc Scenery [address] [place] [address] 05/16/2023 Hem/Onc Treatment Hematology [place] [place], Chair 8 Hem Onc Scenery [address] [place] [address] 05/17/2023 Hem/Onc Treatment Hematology Oncology [place], Chair 8 Hem Onc Scenery [address] [place] [address] 05/24/2023 Imaging Radiology 06/03/2023 Laboratory Laboratory [place], Lab Scenery [address] [place] [address] 06/03/2023 Office Visit Hematology Oncology Cobrin Nielson MD [address] [place] [address] 06/05/2023 Office Visit Pain Medicine Isatu Mitchell PA-C [address] [place] [address] 06/11/2023 Office Visit Cardiology Miya Jerez CRNP [address] [place] [address] 06/18/2023 Telemedicine Gastroenterology Syl Cohen DO [address] [place] [address] 07/09/2023 Office Visit Family Medicine Rayna Solares PA-C 200 [facility] [place] [address] 11/06/2023 Office Visit Family Medicine Joe Peng DO 200 [facility] [place] [address] Scheduled Procedures Name Priority Associated Diagnoses Date/Ti [...] the patient have Health Care Power of Steel Welder? No Code Status History Code Status Date Activated Date Inactivated Comments Full Code 06/15/2016 5:56 PM 08/09/2016 8:19 PM This order reflects the patients wishes and were consensually agreed upon. Question Answer Comments Discussion of Advance Directives occurred with: Patient Does the patient have a Living Will? No Does the patient have Health Care Power of Steel Welder? No Full Code 05/15/2016 3:18 AM 06/08/2016 6:42 PM This order reflects the patients wishes and were consensually agreed upon. Question Answer Comments Discussion of Advance Directives occurred with: Not Discussed Care Teams Label Cutter Relationship Specialty Start Date End Date Joe Peng, DO [address] [place] [address] PCP - General Family Medicine 05/19/18 documented as of this encounter
--- OUTSIDE RECORDS SUMMARY | 2023-08-22 00:33 | External Medical Summary | Summary of Care ---
Author Name Unknown Organization [facility] Address [address] [place] [address] Phone [phone] Care Team Providers Care Cut Off Machine Helper Name Role Phone Joe Peng DO Primary Care Provider [phone] Encounter Details Date Type Department Care Team [...] Whitten MD [address] [place] [address] 05/14/2023 Laboratory Laboratory [place], Lab Scenery [address] [place] [address] 05/14/2023 Hem/Onc Treatment Hematology [place] [place], Chair 10 Hem Onc Scenery [address] [place] [address] 05/15/2023 Hem/Onc Treatment Hematology [place], Chair 2 Hem Onc Scenery [address] [place] [address] 05/16/2023 Hem/Onc Treatment Hematology [place] [place], Chair 8 Hem Onc Scenery [address] [place] [address] 05/17/2023 Hem/Onc Treatment Hematology [place] [place], Chair 8 Hem Onc Scenery [address] [place] [address] 05/24/2023 Imaging Radiology 06/03/2023 Laboratory Laboratory [place], Lab Scenery [address] [place] [address] 06/03/2023 Office Visit Hematology Oncology Corbin Nielson MD [address] [place] [address] 06/05/2023 Office Visit Pain Medicine Isatu Mitchell PA-C [address] [place] [address] 06/11/2023 Office Visit Cardiology Miya Jerez CRNP [address] [place] [address] 06/18/2023 Telemedicine Gastroenterology Syl Cohen DO [address] [place] [address] 07/09/2023 Office Visit Family Medicine Rayna Solares PA-C 200 [facility] [place] [address] 11/06/2023 Office Visit Family Medicine Joe Peng DO 200 [facility] [place] [address] Scheduled Procedures Name Priority Associated Diagnoses Date/Ti [...] the patient have Health Care Power of Manager Pe? No Code Status History Code Status Date Activated Date Inactivated Comments Full Code 06/15/2016 5:56 PM 08/09/2016 8:19 PM This order reflects the patients wishes and were consensually agreed upon. Question Answer Comments Discussion of Advance Directives occurred with: Patient Does the patient have a Living Will? No Does the patient have Health Care Power of Manager Pe? No Full Code 05/15/2016 3:18 AM 06/08/2016 6:42 PM This order reflects the patients wishes and were consensually agreed upon. Question Answer Comments Discussion of Advance Directives occurred with: Not Discussed Care Teams Cut Off Machine Helper Relationship Specialty Start Date End Date Joe Peng, [address] [place] [address] PCP - General Family Medicine 05/19/18 documented as of this encounter
--- OUTSIDE RECORDS SUMMARY | 2023-08-22 00:33 | External Medical Summary | Summary of Care ---
Author Name Unknown Organization [facility] Address [address] [place] [address] Phone [phone] Care Team Providers Care Outcomes Specialist Name Role Phone Joe Peng DO Primary Care Provider [phone] Reason for Referral * Evaluate & Treat - Unlimited Visits (Within 10 days (routine)) - Authorized Specialty Diagnoses / Procedures Referred By Contac t Referred To Contact Pain Management / Pain Medicine Diagnoses Osteoarthritis of spine with radiculopathy, lumbar region Yovani Whitten MD [address] [place] [address] Referral ID Status Reason Start Date Expiration Date Visits Requested Visits Authorized [id number] Authorized Specialty Services Required 04/30/2023 999 999 Question Answer Referral Priority Within 10 days (routine) Reason for referral? Interventional Pain Management - (Injection) What condition is the patient being referred for? Lumbar Radiculopathy What is the preferred location to have this test performed? [facility] Comments Patient Name: Codi Soto Date of : 1955 Department Phone Number: MRI or CT (if unable to have a MRI) is recommended if any of the following apply: 1. Patient has neck or back pain with radiation to extremities. A previous MRI will be accepted if symptoms unchanged since prior MRI. 2. Spinal surgery since last MRI. If yes, order a MRI with and without contrast. 3. Hx or ongoing cancer treatment. Patient will need spine x-ray (Ap/Lat) for axial neck or back pain if not done previously. Fax No. [facility] [phone] or contact lockstitch front edge tape sewer [phone] Fax No. [facility] [phone] or contact lockstitch front edge tape sewer [phone] Fax No. [facility] [phone] or contact lockstitch front edge tape sewer [phone] * Precert (Within 10 days (routine)) - Authorized Specialty Diagnoses / Procedures Referred By Contac t Referred To Contact Radiology Diagnoses Osteoarthritis of spine with radiculopathy, lumbar region Procedures MRI L SPINE WO CONTRAST Fish, Yovani Roque MD [address] [place] [address] Referral ID Status Reason Start Date Expiration Date V isits Requested Visits Authorized [id number] Authorized 04/30/2023 999 999 Reason for Visit * Reason Comments NEW PATIENT Left hip pain * Evaluate & Treat - Unlimited Visits (Within 10 days (routine)) - Authorized Specialty Diagnoses / Procedures Referred By Contac t Referred To Contact Orthopaedic Surgery / Orthopedics Diagnoses Arthritis of left hip Abnormal x-ray of pelvis Lilliana Kirkland MD [address] [facility] [place] [address] Referral ID Status Reason Start Date Expiration Date Visits Requested Visits Authorized [id number] Authorized Specialty Services Required 03/21/2023 999 999 Encounter Details Date Type Department Care Team Description 04/30/2023 Office Visit Orthopaedics [facility] [address] [place] [address] Yovani Whitten MD [address] [place] [address] Primary osteoarthritis of left hip*; Primary osteoarthritis of right hip; Osteoarthritis of spine with radiculopathy, lumbar region Allergies Active Allergy Reactions Severity Noted Date [...] Capsule 5 04/26/20 23 Active HYDROcodone-Acetam inophen 10-325 MG Oral Tablet [...] 016 07/31/2017 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 encounter 02/12/2012 04/27/2015 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 0 02/12/2012 04/27/2015 Overview: ICD-10 update of inactive term Other disorder of menstruati on and other abnormal bleeding from female genital tract 09/16/2007 04/27/2015 Uterine leiomyoma 09/16/2007 04/27/2015 documented as of this encounter (statuses as of 05/02/2023) Immunizations Name Administration Dates Next Due COVID-19 mRNA, LNP-s, No Pre serve, 2-Dose Series ([facility]) 05/08/2021,08/29/2020,08/08/2020 DTaP Dipth/Tet/Acell Pertussis (Infanrix), Peds 12/25/2017,10/30/2017,09/25/2017 [...] Progress Notes * Yovani Whitten MD - 04/30/2023 9:38 AM EDT Codi Soto [id number] Codi Soto is a 68 year old female who presents for consultation for lefthip injury/pain to [facility]. Consult requested by Lilliana Kirkland MD. Codi Soto is here with his/her Quality: reviewed and agree with Nursing Notes for HPI elements History: History - left hip pain 11/12 today x 1 year. Patient denies any PT or injections or injury or bracing or surgery on left hip X-ray 03/15/2023 of both the lumbar spine and hip. Patient gets pain within the groin but also has pain that radiates the entire way down her leg to her foot. ROS: ROS per HPI otherwise non-contributory Past [...] on file Housing Stability: Not on file Physical Exam Constitutional: Generally well-nourished and in no acute distress Psychiatric: Mood and Affect normal Eyes: EOMI Respiratory: Normal respiratory effort with regular rate and rhythm Cardiovascular: No edema in the affected extremity (s) Hip and Pelvis Exam Gait: Limp: Positive Antalgic: Positive Palpation: Tender palpate within the groin Hernia: No ROM: Flexion (normal 120-130): L - 120, R - 120 Internal at 90 (normal 45): L - 0, R - 0 External at 90 (normal 50): L - 15, R - 15 Strength: 4/5 with hip flexion Lumbar Spine Tests: Positive straight leg and slump Radiology (I have personally reviewed the following [...] DJD Discussed range of treatment options including mcab-keh-vekcxzs medications to Surgical arthroplasty. Also discussed possibility of intra-articular steroid injections either done by myself with ultrasound or through [facility] radiology with fluoro guidance. However, given patient's current treatments for leukemia including chemotherapy I am uncertain if this would be contraindicated. Have sent a message to the patient's mash tub cooker/oncologist Dr. Nielson. 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 Given the degenerative change AVN would not be treated prophylactically. Recommendation would be to treat the DJD accordingly. MRI not needed in this instance 05/02/2023: Update Received response from Dr. Nielson, the patients mash tub cooker/oncologist Her current treatments not be a contraindication to steroid injections and we could proceed with injections if desired. Nursing to notify the patient and have her scheduled accordingly if she desires to try an injection. Yovani Whitten MD Primary Care Sports Medicine Orthopaedics [address] [address] documented in this encounter Nursing Notes * Addis Cohen LPN - 04/30/2023 9:40 AM EDT New patient left hip pain 11/12 today x 1 year. Patient denies any PT or injections or injury or bracing or surgery on left hip X-ray 03/15/2023 documented in this encounter Plan of Treatment Upcoming Encounters Date Type Specialty Care Team Description 05/14/2023 Laboratory Laboratory [place], Lab Scenery [address] [place] [address] 05/14/2023 Hem/Onc Treatment Hematology [place]cology [place], Chair 10 Hem Onc Scenery [address] [place] [address] 05/15/2023 Hem/Onc Treatment Hematology [place]cology [place], Chair 2 Hem Onc Scenery [address] [place] [address] 05/16/2023 Hem/Onc Treatment Hematology [place]cology [place], Chair 8 Hem Onc Scenery [address] [place] [address] 05/17/2023 Hem/Onc Treatment Hematology Oncology [place], Chair 8 Hem Onc Scenery [address] [place] [address] 05/24/2023 Imaging Radiology 06/03/2023 Laboratory Laboratory [place], Lab Scenery [address] [place] [address] 06/03/2023 Office Visit Hematology Oncology Corbin Nielson MD [address] [place] [address] 06/05/2023 Office Visit Pain Medicine Isatu Mitchell PA-C [address] [place] [address] 06/11/2023 Office Visit Cardiology Miya Jerez CRNP [address] [place] [address] 06/18/2023 Telemedicine Gastroenterology Syl Cohen DO [address] [place] [address] 07/09/2023 Office Visit Family Medicine Rayna Solares PA-C [address] [place] [address] 11/06/2023 Office Visit Family Medicine Joe Peng DO [address] [place] [address] Scheduled Orders Name Type Priority Associated Diagnoses Orde r Schedule MRI L SPINE WO CONTRAST Medical Imaging Routine Osteoarthritis of spine with radiculopathy, lumbar region Expected: 04/30/2023, Expires: 05/30/2024 Scheduled Procedures Name Priority Associated Diagnoses Date/Ti me COLONOSCOPY FLEXIBLE PROXIMAL DIAGNOSTIC Recall History of colon polyps Scheduled Referrals Name Type Priority Associated Diagnoses Orde r Schedule PAIN MEDICINE REFERRAL OP Referral Within 10 days (routine) Osteoarthritis of spine with radiculopathy, lumbar region Ordered: 04/30/2023 Health Maintenance Due Date Last Done Comments [...] Primary localized osteoarthrosis, pelvic region and thigh Primary osteoarthritis of right hip Primary localized osteoarthrosis, pelvic region and thigh Osteoarthritis of spine with radiculopathy, lumbar region documented in this encounter Advance Directives Latest Code Status on File Code Status Date Activated Date Inactivated Comments Full Code 04/02/2017 4:50 AM 04/17/2017 3:02 PM This order reflects the patients wishes and were consensually agreed upon. Question Answer Comments Discussion of Advance Directives occurred with: Family Does the patient have a Living Will? No Does the patient have Health Care Power of Sandfill Operator Surface? No Code Status History Code Status Date Activated Date Inactivated Comments Full Code 06/15/2016 5:56 PM 08/09/2016 8:19 PM This order reflects the patients wishes and were consensually agreed upon. Question Answer Comments Discussion of Advance Directives occurred with: Patient Does the patient have a Living Will? No Does the patient have Health Care Power of Sandfill Operator Surface? No Full Code 05/15/2016 3:18 AM 06/08/2016 6:42 PM This order reflects the patients wishes and were consensually agreed upon. Question Answer Comments Discussion of Advance Directives occurred with: Not Discussed Care Teams Outcomes Specialist Relationship Specialty Start Date End Date Joe Peng, [address] [place] [address] PCP - General Family Medicine 05/19/18 documented as of this encounter
--- OUTSIDE RECORDS SUMMARY | 2023-08-22 00:33 | External Medical Summary | Summary of Care ---
Author Name Unknown Organization [facility] Address [address] [place] [address] Phone [phone] Care Team Providers Care Printmaker Name Role Phone Joe Peng DO Primary Care Provider [phone] Encounter Details Date Type Department Care Team [...] 016 07/31/2017 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 encounter 02/12/2012 04/27/2015 custodial current use of anticoagulant therapy 0 02/12/2012 [...] Whitten MD [address] [place] [address] 05/14/2023 Laboratory Laboratory [place], Lab Scenery [address] [place] [address] 05/14/2023 Hem/Onc Treatment Hematology [place]cology [place], Chair 10 Hem Onc Scenery [address] [place] [address] 05/15/2023 Hem/Onc Treatment Hematology [place]cology [place], Chair 2 Hem Onc Scenery [address] [place] [address] 05/16/2023 Hem/Onc Treatment Hematology [place]cology [place], Chair 8 Hem Onc Scenery [address] [place] [address] 05/17/2023 Hem/Onc Treatment Hematology [place]cology [place], Chair 8 Hem Onc Scenery [address] [place] [address] 05/24/2023 Imaging Radiology 06/03/2023 Laboratory Laboratory [place], Lab Scenery [address] [place] [address] 06/03/2023 Office Visit Hematology Oncology Corbin Nielson MD [address] [place] [address] 06/05/2023 Office Visit Pain Medicine Isatu Mitchell PA-C [address] [place] [address] 06/11/2023 Office Visit Cardiology Miya Jerez CRNP [address] [place] [address] 06/18/2023 Telemedicine Gastroenterology Syl Cohen DO [address] [place] [address] 07/09/2023 Office Visit Family Medicine Rayna Solares PA-C 200 [place] [address] 11/06/2023 Office Visit Family Medicine Joe Peng DO 200 [facility] [place] [address] Scheduled Procedures Name Priority Associated Diagnoses Date/Ti [...] the patient have Health Care Power of State Appellate Clerk? No Code Status History Code Status Date Activated Date Inactivated Comments Full Code 06/15/2016 5:56 PM 08/09/2016 8:19 PM This order reflects the patients wishes and were consensually agreed upon. Question Answer Comments Discussion of Advance Directives occurred with: Patient Does the patient have a Living Will? No Does the patient have Health Care Power of State Appellate Clerk? No Full Code 05/15/2016 3:18 AM 06/08/2016 6:42 PM This order reflects the patients wishes and were consensually agreed upon. Question Answer Comments Discussion of Advance Directives occurred with: Not Discussed Care Teams Printmaker Relationship Specialty Start Date End Date Joe Peng, [address] [place] [address] PCP - General Family Medicine 05/19/18 documented as of this encounter
--- OUTSIDE RECORDS SUMMARY | 2023-08-22 00:33 | External Medical Summary | Summary of Care ---
Author Name Unknown Organization [facility] Address [address] [place] [address] Phone [phone] Care Team Providers Care Inspector Assemblies And Installations Name Role Phone Joe Peng DO Primary Care Provider [phone] Encounter Details Date Type Department Care Team Description 05/02/2023 Telephone Orthopaedics [facility] [address] [place] [address] Yovani Whitten MD [address] [place] [address] Allergies Active Allergy Reactions Severity Noted Date [...] 016 07/31/2017 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 encounter 02/12/2012 04/27/2015 nursing home current use of anticoagulant therapy 0 02/12/2012 04/27/2015 Overview: ICD-10 update of inactive term Other disorder of menstruati on and other abnormal bleeding from female genital tract 09/16/2007 04/27/2015 Uterine leiomyoma 09/16/2007 04/27/2015 documented as of this encounter (statuses as of 05/02/2023) Immunizations Name Administration Dates Next Due COVID-19 mRNA, LNP-s, No Pre serve, 2-Dose Series (CUPR) 05/08/2021,08/29/2020,08/08/2020 DTaP Dipth/Tet/Acell Pertussis (Infanrix), Peds 12/25/2017,10/30/2017,09/25/2017 [...] encounter Miscellaneous Notes * Telephone Encounter - LUCIO Hernandez - 05/02/2023 11:55 AM EDT Called and spoke with patient, made her aware of the recommendations in regards to steroid injections. Call transferred to front loader residential driver to schedule * Telephone Encounter - Bernarda LUCIO [place] - 05/02/2023 11:54 AM EDT ----- Message from Yovani Whitten MD sent at 05/02/2023 10:43 AM EDT ----- Regarding: FW: steroid inejctions? Please let the patient know that I received a response from her oncologist. She is allowed to have steroid injections if she desires. Therefore if she would like me to inject her hip have her scheduled, or if she prefers I place a referral to our musculoskeletal radiologist for him to do it I can place that referral as well. He would do the injection with live x-ray (fluoro) bear as I would do with ultrasound guidance. Either 1 would be a good option for her. ----- Message ----- From: Corbin Nielson MD Sent: 04/30/2023 10:38 AM EDT To: Yovani Whitten MD Subject: RE: steroid inejctions? No contraindication. You can proceed with injection ----- Message ----- From: Yovani Whitten MD Sent: 04/30/2023 10:02 AM EDT To: Corbin Nielson MD Subject: steroid inejctions? Dr. Nielson, I hope all is well. I saw this patient today for L hip arthritis and suspected lumbar radiculopathy. Given her lukemia treatments, I was uncertain if steroid injections of her hip joint or LESI wouldbe contraindicated and would like your advice. Thank you, Yovani documented in this encounter Plan of Treatment Upcoming Encounters Date Type Specialty Care Team Description 05/07/2023 Office Visit Orthopedics Yovani Whitten MD [address] [place] [address] 05/14/2023 Laboratory [facility] [place], Lab Scenery [address] [place] [address] 05/14/2023 Hem/Onc Treatment Hematology [facility]cology [place], Chair 10 Hem Onc Scenery [address] [place] [address] 05/15/2023 Hem/Onc Treatment Hematology [facility]cology [place], Chair 2 Hem Onc Scenery [address] [place] [address] 05/16/2023 Hem/Onc Treatment Hematology [facility] [place], Chair 8 Hem Onc Scenery [address] [place] [address] 05/17/2023 Hem/Onc Treatment Hematology [facility]cology [place], Chair 8 Hem Onc Scenery [address] [facility] [address] 05/24/2023 Imaging Radiology 06/03/2023 Laboratory [facility], Lab Scenery [address] [place] [address] 06/03/2023 Office Visit Hematology Oncology Corbin Nielson MD [address] [place] [address] 06/05/2023 Office Visit Pain Medicine Isatu Mitchell PA-C [address] [place] [address] 06/11/2023 Office Visit Cardiology Miya Jerez CRNP [address] [place] [address] 06/18/2023 Telemedicine Gastroenterology Syl Cohen, DO [address] [place] [address] 07/09/2023 Office Visit Family Medicine Rayna Solares PA-C [address] [place] [address] 11/06/2023 Office Visit Family Medicine Joe Peng DO [address] [place] [address] Scheduled Procedures Name Priority Associated Diagnoses Date/Ti [...] 08/15/2020, Additional history exists GFR 04/09/2024 04/09/2023, 0802/2023, 02/11/2023, Additional history exists COLONOSCOPY-EVERY 3 YRS [...] the patient have Health Care Power of Utility Arborist? No Code Status History Code Status Date Activated Date Inactivated Comments Full Code 06/15/2016 5:56 PM 08/09/2016 8:19 PM This order reflects the patients wishes and were consensually agreed upon. Question Answer Comments Discussion of Advance Directives occurred with: Patient Does the patient have a Living Will? No Does the patient have Health Care Power of Utility Arborist? No Full Code 05/15/2016 3:18 AM 06/08/2016 6:42 PM This order reflects the patients wishes and were consensually agreed upon. Question Answer Comments Discussion of Advance Directives occurred with: Not Discussed Care Teams Inspector Assemblies And Installations Relationship Specialty Start Date End Date Joe Peng, DO [address] [facility] [place] [address] PCP - General Family Medicine 05/19/18 documented as of this encounter
--- OUTSIDE RECORDS SUMMARY | 2023-08-22 00:33 | External Medical Summary | Summary of Care ---
Author Name Unknown Organization [facility] Address [address] [place] [address] Phone [phone] Care Team Providers Care Course Instructor Name Role Phone Joe Peng DO Primary Care Provider [phone] Encounter Details Date Type Department Care Team [...] 016 07/31/2017 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 encounter 02/12/2012 04/27/2015 assisted current use of anticoagulant therapy 0 02/12/2012 [...] Whitten MD [address] [place] [address] 05/14/2023 Laboratory [facility] [place], Lab Scenery [address] [place] [address] 05/14/2023 Hem/Onc Treatment Hematology [facility] [place], Chair 10 Hem Onc Scenery [address] [place] [address] 05/15/2023 Hem/Onc Treatment Hematology [place] [place], Chair 2 Hem Onc Scenery [address] [place] [address] 05/16/2023 Hem/Onc Treatment Hematology [place] [place], Chair 8 Hem Onc Scenery [address] [place] [address] 05/17/2023 Hem/Onc Treatment Hematology [place] [place], Chair 8 Hem Onc Scenery [address] [place] [address] 05/24/2023 Imaging Radiology 06/03/2023 Laboratory Laboratory [place], Lab Scenery [address] [place] [address] 06/03/2023 Office Visit Hematology Oncology Corbin Nielson MD [address] [place] [address] 06/05/2023 Office Visit Pain Medicine Isatu Mitchell PA-C [address] [place] [address] 06/11/2023 Office Visit Cardiology Miya Jerez CRNP [address] [place] [address] 06/18/2023 Telemedicine Gastroenterology Syl Cohen DO [address] [place] [address] 07/09/2023 Office Visit Family Medicine Rayna Solares PA-C [address] [facility] [place] [address] 11/06/2023 Office Visit Family Medicine Joe Peng DO [address] [facility] [address] Scheduled Procedures Name Priority Associated Diagnoses Date/Ti [...] the patient have Health Care Power of Health Information Technician? No Code Status History Code Status Date Activated Date Inactivated Comments Full Code 06/15/2016 5:56 PM 08/09/2016 8:19 PM This order reflects the patients wishes and were consensually agreed upon. Question Answer Comments Discussion of Advance Directives occurred with: Patient Does the patient have a Living Will? No Does the patient have Health Care Power of Health Information Technician? No Full Code 05/15/2016 3:18 AM 06/08/2016 6:42 PM This order reflects the patients wishes and were consensually agreed upon. Question Answer Comments Discussion of Advance Directives occurred with: Not Discussed Care Teams Course Instructor Relationship Specialty Start Date End Date Joe Peng, [address] [place] [address] PCP - General Family Medicine 05/19/18 documented as of this encounter
--- OUTSIDE RECORDS SUMMARY | 2023-08-22 00:33 | External Medical Summary | Summary of Care ---
Author Name Unknown Organization [facility] Address [address] [place] [address] Phone [phone] Care Team Providers Care Diesel Truck Driver Name Role Phone Joe Peng DO Primary Care Provider [phone] Encounter Details Date Type Department Care Team [...] 016 07/31/2017 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 encounter 02/12/2012 04/27/2015 [facility] current use of anticoagulant therapy 0 02/12/2012 [...] Whitten MD [address] [place] [address] 05/14/2023 Laboratory [facility] [place], Lab Scenery [address] [place] [address] 05/14/2023 Hem/Onc Treatment Hematology [place] [place], Chair 10 Hem Onc Scenery [address] [place] [address] 05/15/2023 Hem/Onc Treatment Hematology [place] [place], Chair 2 Hem Onc Scenery [address] [place] [address] 05/16/2023 Hem/Onc Treatment Hematology [place] [place], Chair 8 Hem Onc Scenery [address] [place] [address] 05/17/2023 Hem/Onc Treatment Hematology [place], Chair 8 Hem Onc Scenery [address] [place] [address] 05/24/2023 Imaging Radiology 06/03/2023 Laboratory Laboratory [place], Lab Scenery [address] [place] [address] 06/03/2023 Office Visit Hematology Oncology Corbin Nielson MD [address] [place] [address] 06/05/2023 Office Visit Pain Medicine Isatu Mitchell PA-C [address] [place] [address] 06/11/2023 Office Visit Cardiology Miya Jerez CRNP [address] [place] [address] 06/18/2023 Telemedicine Gastroenterology Syl Cohen DO [address] [place] [address] 07/09/2023 Office Visit Family Medicine Rayna Solares PA-C [address] [facility] [place] [address] 11/06/2023 Office Visit Family Medicine Joe Peng DO [address] [facility] [place] [address] Scheduled Procedures Name Priority Associated Diagnoses Date/Ti [...] the patient have Health Care Power of Bingo Caller? No Code Status History Code Status Date Activated Date Inactivated Comments Full Code 06/15/2016 5:56 PM 08/09/2016 8:19 PM This order reflects the patients wishes and were consensually agreed upon. Question Answer Comments Discussion of Advance Directives occurred with: Patient Does the patient have a Living Will? No Does the patient have Health Care Power of Bingo Caller? No Full Code 05/15/2016 3:18 AM 06/08/2016 6:42 PM This order reflects the patients wishes and were consensually agreed upon. Question Answer Comments Discussion of Advance Directives occurred with: Not Discussed Care Teams Diesel Truck Driver Relationship Specialty Start Date End Date Joe Peng, [address] [place] [address] PCP - General Family Medicine 05/19/18 documented as of this encounter
--- OUTSIDE RECORDS SUMMARY | 2023-08-22 00:33 | External Medical Summary | Summary of Care ---
Author Name Unknown Organization [facility] Address [address] [place] [address] Phone [phone] Care Team Providers Care Metalsmith Helper Name Role Phone Joe Peng DO Primary Care Provider [phone] Reason for Visit * Reason Onset Date Comments Test Results 04/30/2023 Encounter Details Date Type Department Care Team Description 04/30/2023 Telephone Family Practice [facility] [address] [facility] [place] [address] Pili Yo PA-C [address] [facility] [place] [address] Test Results Allergies Active Allergy Reactions Severity Noted Date Comments Amoxicillin Nausea/vomiting 11/14/2015 Penicillins Nausea/vomiting Low 08/12/2007 tolerated cephalosporins in past Other reaction(s): Nausea Only Other reaction(s): "makes me nervous", Nausea documented as of this encounter (statuses as of 04/30/2023) Medications Medication Sig Dispensed Refills Start Date [...] as of this encounter (statuses as of 04/30/2023) Active Problems Problem Noted Date Hypotension 06/19/2022 [...] as of this encounter (statuses as of 04/30/2023) Resolved Problems Problem Noted Date Resolved Date [...] 016 07/31/2017 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 encounter 02/12/2012 04/27/2015 jail current use of anticoagulant therapy 0 02/12/2012 04/27/2015 Overview: ICD-10 update of inactive term Other disorder of menstruati on and other abnormal bleeding from female genital tract 09/16/2007 04/27/2015 Uterine leiomyoma 09/16/2007 04/27/2015 documented as of this encounter (statuses as of 04/30/2023) Immunizations Name Administration Dates Next Due COVID-19 [...] Miscellaneous Notes * Telephone Encounter - Sofi Malcolm LPN - 04/30/2023 1:02 PM EDT Left detailed message on with all this information. * Telephone Encounter - Pili Yo PA-C - 04/30/2023 12:55 PM EDT Please let patient know that rib xray showed acute mildly displaced left 4th rib fracture which correlates to area of pain on exam today. There was also old 8th rib fracture seen. No signs of any pleural effusion (fluid in lungs). I recommend continue with the management discussed at appointment. Rest, ice over area 10 minutes 2-3 times daily, tylenol as needed for pain (limit to 3g/day). Consider taping chest wall as discussed. Recommend taking deep breaths 3 times every couple hours for next week. I am working on sending pain medicine. I have not been able to get it approved yet, but once it is I will notify her. documented in this encounter Plan of Treatment Upcoming Encounters Date Type Specialty Care Team Description 05/14/2023 Laboratory [facility] [place], Lab Scenery [address] [place] [address] 05/14/2023 Hem/Onc Treatment Hematology Oncology [place], Chair 10 Hem Onc Scenery [address] [place] [address] 05/15/2023 Hem/Onc Treatment Hematology [place]cology [place], Chair 5 Hem Onc Scenery [address] [place] [address] 05/16/2023 Hem/Onc Treatment Hematology Oncology [place], Chair 8 Hem Onc Scenery [address] [place] [address] 05/17/2023 Hem/Onc Treatment Hematology Oncology [place], Chair 8 Hem Onc Scenery [address] [place] [address] 05/24/2023 Imaging Radiology 06/03/2023 Laboratory [facility] [place], Lab Scenery [address] [place] [address] 06/03/2023 Office Visit Hematology Oncology Corbin Nielson MD [address] [place] [address] 06/05/2023 Office Visit Pain Medicine Isatu Mitchell PA-C [address] [place] [address] 06/11/2023 Office Visit Cardiology Miya Jerez CRNP [address] [place] [address] 06/18/2023 Telemedicine Gastroenterology Syl Cohen DO [address] [place] [address] 07/09/2023 Office Visit Family Medicine Rayna Solares PA-C [address] [place] [address] 11/06/2023 Office Visit Family Medicine Joe Peng DO [address] [place] [address] Scheduled Procedures Name Priority Associated Diagnoses Date/Ti [...] the patient have Health Care Power of Cardiology Physician? No Code Status History Code Status Date Activated Date Inactivated Comments Full Code 06/15/2016 5:56 PM 08/09/2016 8:19 PM This order reflects the patients wishes and were consensually agreed upon. Question Answer Comments Discussion of Advance Directives occurred with: Patient Does the patient have a Living Will? No Does the patient have Health Care Power of Cardiology Physician? No Full Code 05/15/2016 3:18 AM 06/08/2016 6:42 PM This order reflects the patients wishes and were consensually agreed upon. Question Answer Comments Discussion of Advance Directives occurred with: Not Discussed Care Teams Metalsmith Helper Relationship Specialty Start Date End Date Joe Peng, DO [address] [place] [address] PCP - General Family Medicine 05/19/18 documented as of this encounter
--- OUTSIDE RECORDS SUMMARY | 2023-08-22 00:33 | External Medical Summary | Summary of Care ---
Author Name Unknown Organization [facility] Address [address] [place] [address] Phone [phone] Care Team Providers Care Brick Maker Name Role Phone Joe Peng DO Primary Care Provider [phone] Encounter Details Date Type Department Care Team [...] 016 07/31/2017 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 encounter 02/12/2012 04/27/2015 senior care current use of anticoagulant therapy 0 02/12/2012 [...] Whitten MD [address] [place] [address] 05/14/2023 Laboratory [facility] [place], Lab Scenery [address] [place] [address] 05/14/2023 Hem/Onc Treatment Hematology Oncology [place], Chair 10 Hem Onc Scenery [address] [place] [address] 05/15/2023 Hem/Onc Treatment Hematology Oncology [place], Chair 2 Hem Onc Scenery [address] [place] [address] 05/16/2023 Hem/Onc Treatment Hematology Oncology [place], Chair 8 Hem Onc Scenery [address] [place] [address] 05/17/2023 Hem/Onc Treatment Hematology Oncology [place], Chair 8 Hem Onc Scenery [address] [place] [address] 05/24/2023 Imaging Radiology 06/03/2023 Laboratory Laboratory [place], Lab Scenery [address] [place] [address] 06/03/2023 Office Visit Hematology Oncology Corbin Nielson MD [address] [place] [address] 06/05/2023 Office Visit Pain Medicine Isatu Mitchell PA-C [address] [place] [address] 06/11/2023 Office Visit Cardiology Miya Jerez CRNP [address] [place] [address] 06/18/2023 Telemedicine Gastroenterology Syl Cohen DO [address] [place] [address] 07/09/2023 Office Visit Family Medicine Rayna Solares PA-C 200 [facility] [place] [address] 11/06/2023 Office Visit Family Medicine Joe Peng DO [address] [facility] [place] [address] Scheduled Procedures Name Priority Associated Diagnoses Date/Ti [...] the patient have Health Care Power of Salary And Wage Administrator? No Code Status History Code Status Date Activated Date Inactivated Comments Full Code 06/15/2016 5:56 PM 08/09/2016 8:19 PM This order reflects the patients wishes and were consensually agreed upon. Question Answer Comments Discussion of Advance Directives occurred with: Patient Does the patient have a Living Will? No Does the patient have Health Care Power of Salary And Wage Administrator? No Full Code 05/15/2016 3:18 AM 06/08/2016 6:42 PM This order reflects the patients wishes and were consensually agreed upon. Question Answer Comments Discussion of Advance Directives occurred with: Not Discussed Care Teams Brick Maker Relationship Specialty Start Date End Date Joe Peng, [address] [place] [address] PCP - General Family Medicine 05/19/18 documented as of this encounter
--- OUTSIDE RECORDS SUMMARY | 2023-08-22 00:34 | External Medical Summary | Summary of Care ---
Author Name Unknown Organization [facility] Address [address] [place] [address] Phone [phone] Care Team Providers Care Terminal Worker Name Role Phone Joe Peng DO Primary Care Provider [phone] Encounter Details Date Type Department Care Team Description 04/22/2023 Patient Reported Data Patient Survey Ortho [facility] Allergies Active Allergy Reactions Severity Noted Date Comments Amoxicillin Nausea/vomiting 11/14/2015 Penicillins Nausea/vomiting Low 08/12/2007 tolerated cephalosporins in past Other reaction(s): Nausea Only Other reaction(s): "makes me nervous", Nausea documented as of this encounter (statuses as of 04/22/2023) Medications Medication Sig Dispensed Refills Start Date [...] CAPSULE DAILY 90 Capsule 1 3 Active HYDROcodone-Acetami nophen 10-325 MG Oral Tablet Take 1 Tablet by mouth every 6 hours as needed for Pain, Breakthrough. Pt stated she took some old hydrocodone-acetamino phen to assist with her pain 0 Active Acetaminophen 500 MG Oral Tablet (Tylenol) Take 1 Tablet by mouth every 6 hours as needed. 0 Active Diclofenac Sodium 1 % External Gel (Voltaren)Indicatio ns:Hip pain, left,Lumbar degenerative disc disease Apply topically to affected area 3 times a day as needed (pain). 1 g 0 3 Active Gabapentin 300 MG Oral Capsule (Neurontin)Indicati ons:Lumbar radiculopathy Take 1 Capsule by mouth in the morning and 1 Capsule in the evening. 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 0 02/12/2012 04/27/2015 Overview: ICD-10 update of inactive term Other disorder of menstruati on and other abnormal bleeding from female genital tract 09/16/2007 04/27/2015 Uterine leiomyoma 09/16/2007 04/27/2015 documented as of this encounter (statuses as of 04/22/2023) Immunizations Name Administration Dates Next Due COVID-19 mRNA, LNP-s, No Pre serve, 2-Dose Series (Providajob) 05/08/2021,08/29/2020,08/08/2020 DTaP Dipth/Tet/Acell Pertussis (Infanrix), Peds 12/25/2017,10/30/2017,09/25/2017 [...] Encounters Date Type Specialty Care Team Description 04/30/2023 Office Visit Orthopedics Yovani Whitten MD [address] [place] [address] 05/14/2023 Laboratory [facility] [place], Lab Scenery [address] [place] [address] 05/14/2023 Hem/Onc Treatment Hematology Oncology [place], Chair 10 Hem Onc Scenery [address] [facility] [address] 05/15/2023 Hem/Onc Treatment Hematology Oncology [place], Chair 5 Hem Onc Scenery [address] [place] [address] 05/16/2023 Hem/Onc Treatment Hematology Oncology [place], Chair 8 Hem Onc Scenery [address] [place] [address] 05/17/2023 Hem/Onc Treatment Hematology Oncology [place], Chair 8 Hem Onc Scenery [address] [facility] [address] 06/03/2023 Laboratory [facility] [place], Lab Scenery [address] [facility] [address] 06/03/2023 Office Visit Hematology Oncology Corbin Nielson MD [address] [place] [address] 06/11/2023 Office Visit Cardiology Miya Jerez CRNP [address] [place] [address] 06/18/2023 Telemedicine Gastroenterology Syl Cohen DO [address] [place] [address] 07/09/2023 Office Visit Family Medicine Rayna Solares PA-C 200 [facility] [place] [address] 11/06/2023 Office Visit Family Medicine Joe Peng DO [address] [facility] [place] [address] Scheduled Procedures Name Priority Associated Diagnoses Date/Ti [...] the patient have Health Care Power of Surgical Product Sales Consultant? No Code Status History Code Status Date Activated Date Inactivated Comments Full Code 06/15/2016 5:56 PM 08/09/2016 8:19 PM This order reflects the patients wishes and were consensually agreed upon. Question Answer Comments Discussion of Advance Directives occurred with: Patient Does the patient have a Living Will? No Does the patient have Health Care Power of Surgical Product Sales Consultant? No Full Code 05/15/2016 3:18 AM 06/08/2016 6:42 PM This order reflects the patients wishes and were consensually agreed upon. Question Answer Comments Discussion of Advance Directives occurred with: Not Discussed Care Teams Terminal Worker Relationship Specialty Start Date End Date Joe Peng, DO [address] [place] [address] PCP - General Family Medicine 05/19/18 documented as of this encounter
--- OUTSIDE RECORDS SUMMARY | 2023-08-22 00:34 | External Medical Summary | Summary of Care ---
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 0 02/12/2012 04/27/2015 Overview: ICD-10 update of inactive term Other disorder of menstruati on and other abnormal bleeding from female genital tract 09/16/2007 04/27/2015 Uterine leiomyoma 09/16/2007 04/27/2015 documented as of this encounter (statuses as of 04/22/2023) Immunizations Name Administration Dates Next Due COVID-19 mRNA, LNP-s, No Pre serve, 2-Dose Series ([employer]) 05/08/2021,08/29/2020,08/08/2020 DTaP Dipth/Tet/Acell Pertussis (Infanrix), Peds 12/25/2017,10/30/2017,09/25/2017 [...] Whitten MD [address] [place] [address] 05/14/2023 Laboratory Laboratory [place], Lab Scenery [address] [place] [address] 05/14/2023 Hem/Onc Treatment Hematology Oncology [place], Chair 10 Hem Onc Scenery [address] [facility] [address] 05/15/2023 Hem/Onc Treatment Hematology Oncology [place], Chair 5 Hem Onc Scenery [address] [place] [address] 05/16/2023 Hem/Onc Treatment Hematology Oncology [place], Chair 8 Hem Onc Scenery [address] [place] [address] 05/17/2023 Hem/Onc Treatment Hematology Oncology [place], Chair 8 Hem Onc Scenery [address] [facility] [address] 06/03/2023 Laboratory Laboratory [place], Lab Scenery [address] [facility] [address] 06/03/2023 Office Visit Hematology Oncology Corbin Nielson MD [address] [place] [address] 06/11/2023 Office Visit Cardiology Miya Jerez CRNP [address] [place] [address] 06/18/2023 Telemedicine Gastroenterology Syl Cohen DO [address] [place] [address] 07/09/2023 Office Visit Family Medicine Rayna Solares PA-C [address] [facility] [place] [address] 11/06/2023 Office Visit Family Medicine Joe Peng DO [address] [facility] [place] [address] Scheduled Procedures Name Priority Associated Diagnoses Date/Ti [...] the patient have Health Care Power of Gardener Florist? No Code Status History Code Status Date Activated Date Inactivated Comments Full Code 06/15/2016 5:56 PM 08/09/2016 8:19 PM This order reflects the patients wishes and were consensually agreed upon. Question Answer Comments Discussion of Advance Directives occurred with: Patient Does the patient have a Living Will? No Does the patient have Health Care Power of Gardener Florist? No Full Code 05/15/2016 3:18 AM 06/08/2016 6:42 PM This order reflects the patients wishes and were consensually agreed upon. Question Answer Comments Discussion of Advance Directives occurred with: Not Discussed Care Teams Crystallizer Operator Relationship Specialty Start Date End Date Joe Peng, DO [address] [place] [address] PCP - General Family Medicine 05/19/18 documented as of this encounter
--- OUTSIDE RECORDS SUMMARY | 2023-08-22 00:34 | External Medical Summary | Summary of Care ---
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 0 02/12/2012 04/27/2015 Overview: ICD-10 update of inactive term Other disorder of menstruati on and other abnormal bleeding from female genital tract 09/16/2007 04/27/2015 Uterine leiomyoma 09/16/2007 04/27/2015 documented as of this encounter (statuses as of 04/22/2023) Immunizations Name Administration Dates Next Due COVID-19 mRNA, LNP-s, No Pre serve, 2-Dose Series ([employer]) 05/08/2021,08/29/2020,08/08/2020 DTaP Dipth/Tet/Acell Pertussis (Infanrix), Peds 12/25/2017,10/30/2017,09/25/2017 [...] Whitten MD [address] [place] [address] 05/14/2023 Laboratory Laboratory [place], Lab Scenery [address] [place] [address] 05/14/2023 Hem/Onc Treatment Hematology Oncology [place], Chair 10 Hem Onc Scenery [address] [facility] [address] 05/15/2023 Hem/Onc Treatment Hematology Oncology [place], Chair 5 Hem Onc Scenery [address] [place] [address] 05/16/2023 Hem/Onc Treatment Hematology Oncology [place], Chair 8 Hem Onc Scenery [address] [place] [address] 05/17/2023 Hem/Onc Treatment Hematology Oncology [place], Chair 8 Hem Onc Scenery [address] [facility] [address] 06/03/2023 Laboratory Laboratory [place], Lab Scenery [address] [facility] [address] 06/03/2023 Office Visit Hematology Oncology Corbin Nielson MD [address] [place] [address] 06/11/2023 Office Visit Cardiology Miya Jerez CRNP [address] [place] [address] 06/18/2023 Telemedicine Gastroenterology Syl Cohen DO [address] [place] [address] 07/09/2023 Office Visit Family Medicine Rayna Solares PA-C [address] [facility] [address] 11/06/2023 Office Visit Family Medicine Joe Peng DO [address] [facility] [address] Scheduled Procedures Name Priority Associated Diagnoses Date/Ti [...] patient have Health Care Power of Field Supervisor? No Code Status History Code Status Date Activated Date Inactivated Comments Full Code 06/15/2016 5:56 PM 08/09/2016 8:19 PM This order reflects the patients wishes and were consensually agreed upon. Question Answer Comments Discussion of Advance Directives occurred with: Patient Does the patient have a Living Will? No Does the patient have Health Care Power of Field Supervisor? No Full Code 05/15/2016 3:18 AM 06/08/2016 6:42 PM This order reflects the patients wishes and were consensually agreed upon. Question Answer Comments Discussion of Advance Directives occurred with: Not Discussed Care Teams Pilot Captain Relationship Specialty Start Date End Date Joe Peng, DO [address] [place] [address] PCP - General Family Medicine 05/19/18 documented as of this encounter
--- OUTSIDE RECORDS SUMMARY | 2023-08-22 00:34 | External Medical Summary | Summary of Care ---
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 0 02/12/2012 04/27/2015 Overview: ICD-10 update of inactive term Other disorder of menstruati on and other abnormal bleeding from female genital tract 09/16/2007 04/27/2015 Uterine leiomyoma 09/16/2007 04/27/2015 documented as of this encounter (statuses as of 04/22/2023) Immunizations Name Administration Dates Next Due COVID-19 mRNA, LNP-s, No Pre serve, 2-Dose Series ([employer] 05/08/2021,08/29/2020,08/08/2020 DTaP Dipth/Tet/Acell Pertussis (Infanrix), Peds [...] Whitten MD [address] [place] [address] 05/14/2023 Laboratory Laboratory [place], Lab Scenery [address] [place] [address] 05/14/2023 Hem/Onc Treatment Hematology Oncology [place], Chair 10 Hem Onc Scenery [address] [facility] [address] 05/15/2023 Hem/Onc Treatment Hematology Oncology [place], Chair 5 Hem Onc Scenery [address] [place] [address] 05/16/2023 Hem/Onc Treatment Hematology Oncology [place], Chair 8 Hem Onc Scenery [address] [place] [address] 05/17/2023 Hem/Onc Treatment Hematology Oncology [place], Chair 8 Hem Onc Scenery [address] [facility] [address] 06/03/2023 Laboratory Laboratory [place], Lab Scenery [address] [facility] [address] 06/03/2023 Office Visit Hematology Oncology Corbin Nielson MD [address] [place] [address] 06/11/2023 Office Visit Cardiology Miya Jerez CRNP [address] [place] [address] 06/18/2023 Telemedicine Gastroenterology Syl Cohen DO [address] [place] [address] 07/09/2023 Office Visit Family Medicine Rayna Solares PA-C 200 [facility] [place] [address] 11/06/2023 Office Visit Family Medicine Joe Peng DO [address] [facility] [place] [address] Scheduled Procedures Name Priority Associated Diagnoses Date/Ti [...] the patient have Health Care Power of Clerk General? No Code Status History Code Status Date Activated Date Inactivated Comments Full Code 06/15/2016 5:56 PM 08/09/2016 8:19 PM This order reflects the patients wishes and were consensually agreed upon. Question Answer Comments Discussion of Advance Directives occurred with: Patient Does the patient have a Living Will? No Does the patient have Health Care Power of Clerk General? No Full Code 05/15/2016 3:18 AM 06/08/2016 6:42 PM This order reflects the patients wishes and were consensually agreed upon. Question Answer Comments Discussion of Advance Directives occurred with: Not Discussed Care Teams City Carrier Assistant Relationship Specialty Start Date End Date Joe Peng, DO [address] [place] [address] PCP - General Family Medicine 05/19/18 documented as of this encounter
--- OUTSIDE RECORDS SUMMARY | 2023-08-22 00:34 | External Medical Summary | Summary of Care ---
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 0 02/12/2012 04/27/2015 Overview: ICD-10 update of inactive term Other disorder of menstruati on and other abnormal bleeding from female genital tract 09/16/2007 04/27/2015 Uterine leiomyoma 09/16/2007 04/27/2015 documented as of this encounter (statuses as of 04/22/2023) Immunizations Name Administration Dates Next Due COVID-19 mRNA, LNP-s, No Pre serve, 2-Dose Series ([employer]) 05/08/2021,08/29/2020,08/08/2020 DTaP Dipth/Tet/Acell Pertussis (Infanrix), Peds 12/25/2017,10/30/2017,09/25/2017 [...] Whitten MD [address] [place] [address] 05/14/2023 Laboratory Laboratory [place], Lab Scenery [address] [place] [address] 05/14/2023 Hem/Onc Treatment Hematology Oncology [place], Chair 10 Hem Onc Scenery [address] [facility] [address] 05/15/2023 Hem/Onc Treatment Hematology Oncology [place], Chair 5 Hem Onc Scenery [address] [place] [address] 05/16/2023 Hem/Onc Treatment Hematology Oncology [place], Chair 8 Hem Onc Scenery [address] [place] [address] 05/17/2023 Hem/Onc Treatment Hematology Oncology [place], Chair 8 Hem Onc Scenery [address] [facility] [address] 06/03/2023 Laboratory Laboratory [place], Lab Scenery [address] [facility] [address] 06/03/2023 Office Visit Hematology Oncology Corbin Nielson MD [address] [place] [address] 06/11/2023 Office Visit Cardiology Miya Jerez CRNP [address] [place] [address] 06/18/2023 Telemedicine Gastroenterology Syl Cohen DO [address] [place] [address] 07/09/2023 Office Visit Family Medicine Rayna Solares PA-C 200 [facility] [place] [address] 11/06/2023 Office Visit Family Medicine Joe Peng DO 200 [facility] [place] [place] [address] Scheduled Procedures Name Priority Associated Diagnoses Date/Ti [...] the patient have Health Care Power of Flatbed Owner Operator? No Code Status History Code Status Date Activated Date Inactivated Comments Full Code 06/15/2016 5:56 PM 08/09/2016 8:19 PM This order reflects the patients wishes and were consensually agreed upon. Question Answer Comments Discussion of Advance Directives occurred with: Patient Does the patient have a Living Will? No Does the patient have Health Care Power of Flatbed Owner Operator? No Full Code 05/15/2016 3:18 AM 06/08/2016 6:42 PM This order reflects the patients wishes and were consensually agreed upon. Question Answer Comments Discussion of Advance Directives occurred with: Not Discussed Care Teams Massage Operator Relationship Specialty Start Date End Date Joe Peng, DO [address] [place] [address] PCP - General Family Medicine 05/19/18 documented as of this encounter
--- OUTSIDE RECORDS SUMMARY | 2023-08-22 00:34 | External Medical Summary | Summary of Care ---
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 0 02/12/2012 04/27/2015 Overview: ICD-10 update of inactive term Other disorder of menstruati on and other abnormal bleeding from female genital tract 09/16/2007 04/27/2015 Uterine leiomyoma 09/16/2007 04/27/2015 documented as of this encounter (statuses as of 04/22/2023) Immunizations Name Administration Dates Next Due COVID-19 mRNA, LNP-s, No Pre serve, 2-Dose Series ([employer]) 05/08/2021,08/29/2020,08/08/2020 DTaP Dipth/Tet/Acell Pertussis (Infanrix), Peds 12/25/2017,10/30/2017,09/25/2017 [...] Whitten MD [address] [place] [address] 05/14/2023 Laboratory Laboratory [place], Lab Scenery [address] [place] [address] 05/14/2023 Hem/Onc Treatment Hematology Oncology [place], Chair 10 Hem Onc Scenery [address] [facility] [address] 05/15/2023 Hem/Onc Treatment Hematology Oncology [place], Chair 5 Hem Onc Scenery [address] [place] [address] 05/16/2023 Hem/Onc Treatment Hematology Oncology [place], Chair 8 Hem Onc Scenery [address] [place] [address] 05/17/2023 Hem/Onc Treatment Hematology Oncology [place], Chair 8 Hem Onc Scenery [address] [facility] [address] 06/03/2023 Laboratory Laboratory [place], Lab Scenery [address] [facility] [address] 06/03/2023 Office Visit Hematology Oncology Corbin Nielson MD [address] [place] [address] 06/11/2023 Office Visit Cardiology Miya Jerez CRNP [address] [place] [address] 06/18/2023 Telemedicine Gastroenterology Syl Cohen DO [address] [place] [address] 07/09/2023 Office Visit Family Medicine Rayna Solares PA-C 200 [facility] [place] [address] 11/06/2023 Office Visit Family Medicine Joe Peng DO [address] [facility] [place] [address] Scheduled Procedures Name Priority Associated Diagnoses Date/Ti [...] the patient have Health Care Power of Tab Machine Operator? No Code Status History Code Status Date Activated Date Inactivated Comments Full Code 06/15/2016 5:56 PM 08/09/2016 8:19 PM This order reflects the patients wishes and were consensually agreed upon. Question Answer Comments Discussion of Advance Directives occurred with: Patient Does the patient have a Living Will? No Does the patient have Health Care Power of Tab Machine Operator? No Full Code 05/15/2016 3:18 AM 06/08/2016 6:42 PM This order reflects the patients wishes and were consensually agreed upon. Question Answer Comments Discussion of Advance Directives occurred with: Not Discussed Care Teams Eyewear Manufacturing Supervisor Relationship Specialty Start Date End Date Joe Peng, DO [address] [place] [address] PCP - General Family Medicine 05/19/18 documented as of this encounter
--- OUTSIDE RECORDS SUMMARY | 2023-08-22 00:34 | External Medical Summary | Summary of Care ---
Author Name Unknown Organization [facility] Address [address] [place] [address] Phone [phone] Care Team Providers Care Staff Nurse Icu Resource Team Name Role Phone Joe Peng DO Primary Care Provider [phone] Reason for Referral * Evaluate & Treat - Unlimited Visits (Within 10 days (routine)) - Authorized Specialty Diagnoses / Procedures Referred By Contac t Referred To Contact Pain Management / Pain Medicine Diagnoses Osteoarthritis of spine with radiculopathy, lumbar region Yovani Whitten MD [address] [place] [address] Referral ID Status Reason Start Date Expiration Date Visits Requested Visits Authorized [id number] Authorized Specialty Services Required 04/30/2023 999 999 Question Answer Referral Priority Within 10 days (routine) Reason for referral? Interventional Pain Management - (Injection) What condition is the patient being referred for? Lumbar Radiculopathy What is the preferred location to have this test performed? [facility] II Comments Patient Name: Codi Soto [...] pain if not done previously. Fax No. [facility] [phone] or contact front end software engineer [phone] Fax No. [facility] [phone] or contact front end software engineer [phone] Fax No. [facility] [phone] or contact front end software engineer [phone] * Precert (Within 10 days (routine)) - Authorized Specialty Diagnoses / Procedures Referred By Contac t Referred To Contact Radiology Diagnoses Osteoarthritis of spine with radiculopathy, lumbar region Procedures MRI L SPINE WO CONTRAST Fish, Yovani Roque MD [address] [place] [address] Referral ID Status Reason Start Date Expiration Date V isits Requested Visits Authorized [id number] Authorized 04/30/2023 999 999 Reason for Visit * Reason Comments NEW PATIENT Left hip pain * Evaluate & Treat - Unlimited Visits (Within 10 days (routine)) - Authorized Specialty Diagnoses / Procedures Referred By Contac t Referred To Contact Orthopaedic Surgery / Orthopedics Diagnoses Arthritis of left hip Abnormal x-ray of pelvis Lilliana Kirkland MD [address] [place] [address] Referral ID Status Reason Start Date Expiration Date Visits Requested Visits Authorized [id number] Authorized Specialty Services Required 03/21/2023 999 999 Encounter Details Date Type Department Care Team Description 04/30/2023 Office Visit Orthopaedics [facility] [address] [place] [address] Yovani Whitten MD [address] [place] [address] Primary osteoarthritis of left hip*; Primary osteoarthritis [...] 07/31/2017 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 Consult requested by [...] DJD Discussed range of treatment options including gady-ehh-nekeioc medications to Surgical arthroplasty. Also discussed possibility of intra-articular steroid injections either done by myself with ultrasound or through [facility] radiology with fluoro guidance. However, given patient's current treatments for leukemia including chemotherapy I am uncertain if this would be contraindicated. Have sent a message to the patient's semiconductor packages leak tester/oncologist Dr. Nielson. Will await that response before [...] accordingly. MRI not needed in this instance Yovani Whitten MD Primary Care Sports Medicine Orthopaedics [facility] [address] [facility] [address] documented in this encounter Nursing Notes * Addis Cohen LPN - 04/30/2023 9:40 AM EDT New patient left hip pain 11/12 today x 1 year. Patient denies any PT or injections or injury or bracing or surgery on left hip X-ray 03/15/2023 documented in this encounter Plan of Treatment Upcoming Encounters Date Type Specialty Care Team Description 04/30/2023 Office Visit Family Medicine Pili [facility] PA-C [address] [facility] [address] 05/14/2023 Laboratory Laboratory [place], Lab Scenery [address] [place] [address] 05/14/2023 Hem/Onc Treatment Hematology Oncology [place], Chair 10 Hem Onc Scenery [address] [place] [address] 05/15/2023 Hem/Onc Treatment Hematology Oncology [place], Chair 5 Hem Onc Scenery [address] [facility] [place] [address] 05/16/2023 Hem/Onc Treatment Hematology Oncology [place], Chair 8 Hem Onc Scenery [address] [place] [address] 05/17/2023 Hem/Onc Treatment Hematology Oncology [place], Chair 8 Hem Onc Scenery [address] [place] [address] 05/24/2023 Imaging Radiology 06/03/2023 Laboratory Laboratory [place], Lab Scenery [address] [place] [address] 06/03/2023 Office Visit Hematology Oncology Corbin Nielson MD [address] [place] [address] 06/05/2023 Office Visit Pain Medicine Isatu Mitchell PA-C [address] [place] [address] 06/11/2023 Office Visit Cardiology Miya Jerez CRNP [address] [place] [address] 06/18/2023 Telemedicine Gastroenterology Syl Cohen DO [address] [place] [address] 07/09/2023 Office Visit Family Medicine Rayna Solares PA-C [address] [place] [address] 11/06/2023 Office Visit Family Medicine Joe Peng DO [address] [place] [address] Scheduled Orders Name Type Priority Associated Diagnoses [...] the patient have Health Care Power of Home Improvement Contractor? No Code Status History Code Status Date Activated Date Inactivated Comments Full Code 06/15/2016 5:56 PM 08/09/2016 8:19 PM This order reflects the patients wishes and were consensually agreed upon. Question Answer Comments Discussion of Advance Directives occurred with: Patient Does the patient have a Living Will? No Does the patient have Health Care Power of Home Improvement Contractor? No Full Code 05/15/2016 3:18 AM 06/08/2016 6:42 PM This order reflects the patients wishes and were consensually agreed upon. Question Answer Comments Discussion of Advance Directives occurred with: Not Discussed Care Teams Staff Nurse Icu Resource Team Relationship Specialty Start Date End Date Joe Peng, DO [address] [place] [address] PCP - General Family Medicine 05/19/18 documented as of this encounter
--- OUTSIDE RECORDS SUMMARY | 2023-08-22 00:35 | External Medical Summary | Summary of Care ---
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) Encounter for antineoplastic chemotherapy Procedures MA DECITABINE INJECTION Corbin Nielson MD [address] [place] [address] Anc Hem/Onc Scenery [place] [address] [place] [address] Referral ID Status Reason Start Date Expiration Date V isits Requested Visits Authorized [id number] Authorized 07/05/2021 08/04/2099 99 99 Encounter Details Date Type Department Care Team Description 04/16/2023 Hem/Onc Treatment Hematology/Oncology Treatment, [place] [address] [place] [address] Patti, Chair 1 Hem Onc Scenery [address] [facility] [place] [address] Acute myeloid leukemia not having achieved remission (HCC)*; 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); Encounter for antineoplastic chemotherapy Allergies Active Allergy Reactions Severity Noted Date Comments Amoxicillin Nausea/vomiting 11/14/2015 Penicillins Nausea/vomiting Low 08/12/2007 tolerated cephalosporins in past Other reaction(s): Nausea Only Other reaction(s): "makes me nervous", Nausea documented as of this encounter (statuses as of 04/16/2023) Medications Medication Sig Dispensed Refills Start Date [...] as of this encounter (statuses as of 04/16/2023) Active Problems Problem Noted Date Hypotension 06/19/2022 [...] as of this encounter (statuses as of 04/16/2023) Resolved Problems Problem Noted Date Resolved Date [...] as of this encounter (statuses as of 04/16/2023) Immunizations Name Administration Dates Next Due COVID-19 [...] Sign Reading Time Taken Comments Blood Pressure 100/62 04/16/2023 11:37 AM EDT Pulse 99 04/16/2023 11:37 AM EDT Temperature 36.3 C (97.4 F) 04/16/2023 11:37 AM E DT Respiratory Rate 20 04/16/2023 11:37 AM EDT Oxygen Saturation - - Inhaled Oxygen [...] Nursing Notes * Melissa Lynn RN - 04/16/2023 1:26 PM EDT Dacogen infusion is complete. Pt tolerated well. Functional status at today's visit: Restricted in [...] or adverse side effects during treatment. Goals: pt to remain free from injury Possible barriers to meeting goals: ambulation with IV pole/tubing, pt has shuffle gait Stability of the patient: Moderately unstable - medium risk of patient condition declining or worsening Summary regarding today's goals: Met: pt remained free from injury Pt discharged in stable condition, assist by Teresa Agosto RN. * Melissa Lynn RN - 04/16/2023 12:28 PM EDT Ch 2. Pt arrived for Dacogen today. She denies new concerns since infusion yesterday. Chemo agents Dacogen Appetite good Nausea/Vomiting denies Diarrhea denies Constipation denies Mucositis denies Fatigue mild, intermittent Bleeding denies Infection denies Rash denies Numbness tingling denies Pain denies Radiation no ABN Labs none today Alt in Tx: no Return in 3wk Safety and Risk for Injury Patient will remain free from injury. Ensure appropriate safety devices are available. Provide and maintain safe environment. documented in this encounter Plan of Treatment Upcoming Encounters Date Type Specialty Care Team Description 04/22/2023 Office Visit Orthopedics Yovani Whitten MD [address] [place] [address] 05/14/2023 Laboratory Laboratory [place], Lab Scenery [address] [place] [address] 05/14/2023 Hem/Onc Treatment Hematology Oncology [place], Chair 10 Hem Onc Scenery [address] [place] [address] 05/15/2023 Hem/Onc Treatment Hematology Oncology [place], Chair 5 Hem Onc Scenery [address] [place] [address] 05/16/2023 Hem/Onc Treatment Hematology Oncology [place], Chair 8 Hem Onc Scenery [address] [place] [address] 05/17/2023 Hem/Onc Treatment Hematology Oncology [place], Chair 8 Hem Onc Scenery [address] [place] [address] 06/03/2023 Laboratory Laboratory [place], Lab Scenery [address] [place] [address] 06/03/2023 Office Visit Hematology Oncology Corbin Nielson MD [address] [place] [address] 06/11/2023 Office Visit Cardiology Miya Jerez CRNP [address] [place] [address] 06/18/2023 Telemedicine Gastroenterology Syl Cohen DO [address] [place] [address] 07/09/2023 Office Visit Family Medicine Rayna Solares PA-C [address] [place] [address] 11/06/2023 Office Visit Family Medicine Joe Peng DO [address] [place] [address] Scheduled Procedures Name Priority Associated Diagnoses Date/Ti [...] ONCE PRN Other, Hypersensitivity Reaction, Starting on Sat04/16/23 at 1157, Until Sat04/17/23 at 1156, For 24 hours EPINEPHrine 1 MG/ML inj 0.3 mg 0.3 mg, Intramuscular, ONCE PRN Other, Hypersensitivity Reaction or Anaphylaxis, Starting on Sat04/16/23 at 1157, Until Sat04/17/23 at 1156, For 24 hours hEParin 100 UNIT/ML Lock Flush inj 500 Units 500 Units (5 mL), IV Lock, PRN Other, IV Flush, Starting on Sat04/16/23 at 1157, Until Sat04/17/23 at 1156, For 24 hours, Do not flush if lock, PICC, or central line not in place; IV infusing or unable to flush. Given 04/16/2023 1:05 PM EDT 500 Units Hydrocortisone Sod Suc (PF) (Solu-Cortef) inj 100 mg 100 mg, IV Push, ONCE PRN Other, Hypersensitivity Reaction, Starting on Sat04/16/23 at 1157, Until Sat04/17/23 at 1156, For 24 hours NSS infusion 500 mL, Intravenous, at 50 mL/hr, CONTINUOUS, Starting on Sat04/16/23 at 1300, Until Sat04/16/23 at 2259 Start Infusion 04/16/2023 12:04 PM EDT 500 mL 50 mL/hr sodium chloride 0.9 % flush central line 10 mL 10 mL, IV Push, PRN Other, IV Flush, Starting on Sat04/16/23 at 1157, Until Sat04/17/23 at 1156, For 24 hours, Do not flush if lock, PICC, or central line not in place; IV infusing or unable to flush. Given 04/16/2023 1:05 PM EDT 10 mL Inactive Administered Medications - up to 3 most recent administrations Medication Order MAR Action Action Date Dose Rate Site Decitabine (Dacogen) 25.6 mg in NSS 100 mL infusion 25.6 mg (16 mg/m2 1.6 m2 Order-specific BSA), IV Piggyback, ONCE, 1 dose, On Sat04/16/23 at 1330, Administer over 60 Minutes, CAUTION: CHEMOTHERAPY HANDLE WITH GLOVES ! Start Infusion 04/16/2023 12:04 PM EDT 25.6 mg 100 mL/hr documented [...] the patient have Health Care Power of Market Research Executive? No Code Status History Code Status Date Activated Date Inactivated Comments Full Code 06/15/2016 5:56 PM 08/09/2016 8:19 PM This order reflects the patients wishes and were consensually agreed upon. Question Answer Comments Discussion of Advance Directives occurred with: Patient Does the patient have a Living Will? No Does the patient have Health Care Power of Market Research Executive? No Full Code 05/15/2016 3:18 AM 06/08/2016 6:42 PM This order reflects the patients wishes and were consensually agreed upon. Question Answer Comments Discussion of Advance Directives occurred with: Not Discussed Care Teams Press Brake Operator Relationship Specialty Start Date End Date Joe Peng, DO [address] [place] [address] PCP - General Family Medicine 05/19/18 documented as of this encounter
--- OUTSIDE RECORDS SUMMARY | 2023-08-22 00:35 | External Medical Summary | Summary of Care ---
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) Encounter for antineoplastic chemotherapy Procedures [place] DECITABINE INJECTION Corbin Nielson MD [address] [place] [address] Anc Hem/Onc Scenery [place] [address] [place] [address] Referral ID Status Reason Start Date Expiration Date V isits Requested Visits Authorized [id number] Authorized 07/05/2021 08/04/2099 99 99 Encounter Details Date Type Department Care Team Description 04/09/2023 Hem/Onc Treatment Hematology/Oncology Treatment, [place] [address] [place] [address] Patti, Chair 9 Hem Onc Scenery [address] [facility] [place] [address] Acute myeloid leukemia not having achieved remission (HCC)*; 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 1 g 0 3 Active documented as of this encounter (statuses as of 04/09/2023) Active Problems Problem Noted Date Hypotension 06/19/2022 [...] as of this encounter (statuses as of 04/09/2023) Resolved Problems Problem Noted Date Resolved Date [...] 016 07/31/2017 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 encounter 02/12/2012 04/27/2015 [facility] current use of anticoagulant therapy 0 02/12/2012 04/27/2015 Overview: ICD-10 update of inactive term Other disorder of menstruati on and other abnormal bleeding from female genital tract 09/16/2007 04/27/2015 Uterine leiomyoma 09/16/2007 04/27/2015 documented as of this encounter (statuses as of 04/09/2023) Immunizations Name Administration Dates Next Due COVID-19 mRNA, LNP-s, No Pre serve, 2-Dose Series (Pfizer) 05/08/2021,08/29/2020,08/08/2020 DTaP - Dipth/Tet/Acell Pertussis 12/25/2017,10/04,09/25/2017 IPV - Polio Virus Vaccine (Inact) 12/25/2017,,09/30/2017 [...] Sign Reading Time Taken Comments Blood Pressure - - Pulse - - Temperature - - Respiratory Rate 20 04/09/2023 1:32 PM EDT Oxygen Saturation - - Inhaled Oxygen Concentration - - Weight 49.8 kg (109 lb 12.8 oz) 04/09/2023 1:32 PM EDT Height - - Body Mass Index 17.46 04/09/2023 9:25 AM EDT documented in this [...] Nursing Notes * Melissa Lynn RN - 04/09/2023 3:56 PM EDT Dacogen infusion is complete. Pt tolerated well. Pt has no further concerns. Functional status at today's visit: Restricted in [...] barriers to meeting goals: ambulation with IV pole/tubing Stability of the patient: Moderately stable - low risk of patient condition declining or worsening Summary regarding today's goals: Met: pt remained free from injury Pt discharged in stable condition. * Melissa Lynn RN - 04/09/2023 3:22 PM EDT Ch 9. Pt arrived today for Dacogen infusion. She had labs performed prior, results reviewed with Dr. Nielson, ANC 1.13, he states ok to proceed with chemo today. Pt reports she was just downstairs at PCP, VS are noted to be stable. Pt reports shewill start gabapentin for possible LE neuropathy and has an appt with ortho to discuss moderate to severe pains that radiate from back down legs. She reports chronic fatigue. She denies N/V/D. She reports fair to good appetite. Chemo agents Dacogen Appetite fair to good Nausea/Vomiting denies Diarrhea denies Constipation denies Mucositis denies Fatigue chronic, takes rest periods Bleeding denies Infection denies Rash denies Numbness tingling pt started on gabapentin by PCP today Pain having bilat LE pains in legs Radiation no ABN Labs stable, ANC 1.13, reviewed with Dr. Finnegan Alt in Tx: no Return in 1 day Safety and Risk for Injury Patient will remain free from injury. Ensure appropriate safety devices are available. Provide and maintain safe environment. documented in this encounter Plan of Treatment Upcoming Encounters Date Type Specialty Care Team Description 04/10/2023 Hem/Onc Treatment Hematology Oncology 04/11/2023 Hem/Onc Treatment Hematology Oncology 04/12/2023 Hem/Onc Treatment Hematology Oncology [place], Chair 6 Hem Onc Scenery [address] [place] [address] 04/22/2023 Office Visit Orthopedics Yovani Whitten MD [address] [place] [address] 05/07/2023 Laboratory Laboratory [place], Lab Scenery [address] [place] [address] 05/07/2023 Hem/Onc Treatment Hematology Oncology [place], Chair 2 Hem Onc Scenery [address] [place] [address] 05/08/2023 Hem/Onc Treatment Hematology Oncology [place], Chair 2 Hem Onc Scenery [address] [place] [address] 05/09/2023 Hem/Onc Treatment Hematology Oncology [place], Chair 2 Hem Onc Scenery [address] [place] [address] 05/10/2023 Hem/Onc Treatment Hematology Oncology [place], Chair 2 Hem Onc Scenery [address] [place] [address] 06/03/2023 Laboratory Laboratory [place], Lab Scenery [address] [place] [address] 06/03/2023 Office Visit Hematology Oncology Corbin Nielson MD [address] [place] [address] 06/11/2023 Office Visit Cardiology Miya Jerez CRNP [address] [place] [address] 06/18/2023 Telemedicine Gastroenterology Syl Cohen, DO [address] [place] [address] 07/09/2023 Office Visit Family Medicine Rayna Solares PA-C [address] [place] [address] 11/06/2023 Office Visit Family Medicine Joe Peng DO [address] [place] [address] Scheduled Procedures Name Priority Associated Diagnoses Date/Ti me COLONOSCOPY FLEXIBLE PROXIMAL DIAGNOSTIC Recall History of colon polyps Health Maintenance Due Date Last Done Comments Zoster Vaccines (1 of 2) 01/03/1975 DIABETES-EYE EXAM 11/25/2019 11/24/2018 COVID-19 Vaccine (4 - Pfizer risk series) 07/03/2021 05/08/2021, 08/29/2020, 08/08/2020 DIABETES-FOOT EXAM 01/10/2022 01/10/2021, 1 , 05/19/2018 Albumin/Creatinine Ratio 12/04/2022 022, 08/15/2020, 08/20/2018 HbA1c 06/12/2023 12/10/2022, 05/06, 12/04/2021, Additional history exists Depression Screening, Annual for Pts 12 and Over 06/19/2023 06/19/2022 TSH 12/11/2023 12/10/2022, 050 09/2021, 08/31/2020, Additional history exists Mammogram 03/20/2024 03/20/2023, 02/03, 02/21/2022, Additional history exists GFR 04/09/2024 04/09/2023, 080 [...] ONCE PRN Other, Hypersensitivity Reaction, Starting on Sat04/09/23 at 1302, Until Sat04/10/23 at 1301, For 24 hours EPINEPHrine 1 MG/ML inj 0.3 mg 0.3 mg, Intramuscular, ONCE PRN Other, Hypersensitivity Reaction or Anaphylaxis, Starting on Sat04/09/23 at 1302, Until Sat04/10/23 at 1301, For 24 hours hEParin 100 UNIT/ML Lock Flush inj 500 Units 500 Units (5 mL), IV Lock, PRN Other, IV Flush, Starting on Sat04/09/23 at 1302, Until Sat04/10/23 at 1301, For 24 hours, Do not flush if lock, PICC, or central line not in place; IV infusing or unable to flush. Given 04/09/2023 2:50 PM EDT 500 Units Hydrocortisone Sod Suc (PF) (Solu-Cortef) inj 100 mg 100 mg, IV Push, ONCE PRN Other, Hypersensitivity Reaction, Starting on Sat04/09/23 at 1302, Until Sat04/10/23 at 1301, For 24 hours NSS infusion 500 mL, Intravenous, at 50 mL/hr, CONTINUOUS, Starting on Sat04/09/23 at 1415, Until Sat04/10/23 at 0014 Start Infusion 04/09/2023 1:30 PM EDT 500 mL 50 mL/hr sodium chloride 0.9 % flush central line 10 mL 10 mL, IV Push, PRN Other, IV Flush, Starting on Sat04/09/23 at 1302, Until Sat04/10/23 at 1301, For 24 hours, Do not flush if lock, PICC, or central line not in place; IV infusing or unable to flush. Given 04/09/2023 2:50 PM EDT 10 mL Inactive Administered Medications - up to 3 most recent administrations Medication Order MAR Action Action Date Dose Rate Site Decitabine (Dacogen) 25.6 mg in NSS 100 mL infusion 25.6 mg (16 mg/m2 1.6 m2 Order-specific BSA), IV Piggyback, ONCE, 1 dose, On Sat04/09/23 at 1445, Administer over 60 Minutes, CAUTION: CHEMOTHERAPY HANDLE WITH GLOVES ! Start Infusion 04/09/2023 1:45 PM EDT 25.6 mg 100 mL/hr documented [...] the patient have Health Care Power of Sign Manufacturer? No Code Status History Code Status Date Activated Date Inactivated Comments Full Code 06/15/2016 5:56 PM 08/09/2016 8:19 PM This order reflects the patients wishes and were consensually agreed upon. Question Answer Comments Discussion of Advance Directives occurred with: Patient Does the patient have a Living Will? No Does the patient have Health Care Power of Sign Manufacturer? No Full Code 05/15/2016 3:18 AM 06/08/2016 6:42 PM This order reflects the patients wishes and were consensually agreed upon. Question Answer Comments Discussion of Advance Directives occurred with: Not Discussed Care Teams Tape Edge Machine Operator Relationship Specialty Start Date End Date Joe Peng, DO [address] [place] [address] PCP - General Family Medicine 05/19/18 documented as of this encounter
--- OUTSIDE RECORDS SUMMARY | 2023-08-22 00:35 | External Medical Summary | Summary of Care ---
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) Encounter for antineoplastic chemotherapy Procedures [place] DECITABINE INJECTION Corbin Nielson MD [address] [place] [address] Anc Hem/Onc Scenery [place] [address] [place] [address] Referral ID Status Reason Start Date Expiration Date V isits Requested Visits Authorized [id number] Authorized 07/05/2021 08/04/2099 99 99 Encounter Details Date Type Department Care Team Description 04/15/2023 Hem/Onc Treatment Hematology/Oncology Treatment, [place] [address] [place], [place] [address] [place], Chair 6 Hem Onc Scenery [address] [place], [place] [address] Acute myeloid leukemia not having achieved remission (HCC)*; 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); Encounter for antineoplastic chemotherapy Allergies Active Allergy Reactions Severity Noted Date Comments Amoxicillin Nausea/vomiting 11/14/2015 Penicillins Nausea/vomiting Low 08/12/2007 tolerated cephalosporins in past Other reaction(s): Nausea Only Other reaction(s): "makes me nervous", Nausea documented as of this encounter (statuses as of 04/15/2023) Medications Medication Sig Dispensed Refills Start Date [...] as of this encounter (statuses as of 04/15/2023) Active Problems Problem Noted Date Hypotension 06/19/2022 [...] as of this encounter (statuses as of 04/15/2023) Resolved Problems Problem Noted Date Resolved Date [...] as of this encounter (statuses as of 04/15/2023) Immunizations Name Administration Dates Next Due COVID-19 [...] Sign Reading Time Taken Comments Blood Pressure 99/65 04/15/2023 2:00 PM EDT Pulse 76 04/15/2023 2:00 PM EDT Temperature 36.4 C (97.5 F) 04/15/2023 2:00 PM ED T Respiratory Rate 16 04/15/2023 2:00 PM EDT Oxygen Saturation 98% 04/15/2023 2:00 PM EDT Inhaled Oxygen Concentration - - Weight 50.3 kg (111 lb) 04/15/2023 2:00 PM EDT Height - - Body Mass Index 17.65 04/09/2023 9:25 AM EDT documented in this [...] of this encounter Nursing Notes * Erin Clarke, KARLEE - 04/15/2023 3:33 PM EDT Chair 4. Port accessed without difficulty. Patient here for her day 3 Dacogen, had been getting her Dacogen last week and received her flu vaccine on her day 2 and felt very bad after getting her injection and had cancelled her last 2 days ofher cycle. Patient is now receiving her days 3 and [address] Nielson wanted patient to have repeat CBCD done today to spot check -- CBCD was all WNL for tx. Patient is also rescheduled for next chemo cycle in 4 weeks [address] today [address] Dr. Nielson. Patient is overall feeling better and states she has been feeling overall back to herself since this past Saturday afternoon. Patient states shefelt pretty good over the weekend. Patient is comfortable and denies further needs at this time. Chemo agents Dacogen day 3 Appetite fair, good Nausea/Vomiting no Diarrhea no Constipation no Mucositis no Fatigue has been fatigued, still somewhat fatigued today Bleeding no Infection no Rash no Numbness tingling no Pain no Radiation no ABN Labs WNL for tx, only needed a CBCD done today, see previous TE/notes Alt in Tx: N/A Return in 1 [...] Encounters Date Type Specialty Care Team Description 04/16/2023 Hem/Onc Treatment Hematology [place] [place], Chair 1 Hem Onc Scenery [address] [place] [address] 04/22/2023 Office Visit Orthopedics Yovani Whitten MD [address] [place] [address] 05/14/2023 Laboratory Laboratory [place], Lab Scenery [address] [place] [address] 05/14/2023 Hem/Onc Treatment [facility]ology [place] [place], Chair 10 Hem Onc Scenery [address] [place] [address] 05/15/2023 Hem/Onc Treatment H[facility]ology [place] [place], Chair 5 Hem Onc Scenery [address] [place] [address] 05/16/2023 Hem/Onc Treatment H[facility]ology [place] [place], Chair 8 Hem Onc Scenery [address] [place] [address] 05/17/2023 Hem/Onc Treatment Hematology [place] [place], Chair 8 Hem Onc Scenery [address] [place] [address] 06/03/2023 Laboratory Laboratory [place], Lab Scenery [address] [place] [address] 06/03/2023 Office Visit Hematology Oncology Corbin Nielson MD [address] [place] [address] 06/11/2023 Office Visit Cardiology Miya Jerez CRNP [address] [place] [address] 06/18/2023 Telemedicine Gastroenterology Syl Cohen DO [address] [place] [address] 07/09/2023 Office Visit Family Medicine Rayna Solares PA-C [address] [place] [address] 11/06/2023 Office Visit Family Medicine Joe Peng, DO [address] [place] [address] Scheduled Procedures Name Priority Associated Diagnoses Date/Ti [...] ONCE PRN Other, Hypersensitivity Reaction, Starting on Sat04/15/23 at 1401, Until Sat04/16/23 at 1400, For 24 hours EPINEPHrine 1 MG/ML inj 0.3 mg 0.3 mg, Intramuscular, ONCE PRN Other, Hypersensitivity Reaction or Anaphylaxis, Starting on Sat04/15/23 at 1401, Until Sat04/16/23 at 1400, For 24 hours hEParin 100 UNIT/ML Lock Flush inj 500 Units 500 Units (5 mL), IV Lock, PRN Other, IV Flush, Starting on Sat04/15/23 at 1401, Until Sat04/16/23 at 1400, For 24 hours, Do not flush if lock, PICC, or central line not in place; IV infusing or unable to flush. Given 04/15/2023 3:20 PM EDT 500 Units Hydrocortisone Sod Suc (PF) (Solu-Cortef) inj 100 mg 100 mg, IV Push, ONCE PRN Other, Hypersensitivity Reaction, Starting on Sat04/15/23 at 1401, Until Sat04/16/23 at 1400, For 24 hours NSS infusion 500 mL, Intravenous, at 50 mL/hr, CONTINUOUS, Starting on Sat04/15/23 at 1515, Until Sat04/16/23 at 0114 Start Infusion 04/15/2023 2:15 PM EDT 500 mL 50 mL/hr sodium chloride 0.9 % flush central line 10 mL 10 mL, IV Push, PRN Other, IV Flush, Starting on Sat04/15/23 at 1401, Until Sat04/16/23 at 1400, For 24 hours, Do not flush if lock, PICC, or central line not in place; IV infusing or unable to flush. Given 04/15/2023 3:20 PM EDT 10 mL Inactive Administered Medications - up to 3 most recent administrations Medication Order MAR Action Action Date Dose Rate Site Decitabine (Dacogen) 25.6 mg in NSS 100 mL infusion 25.6 mg (16 mg/m2 1.6 m2 Order-specific BSA), IV Piggyback, ONCE, 1 dose, On Sat04/15/23 at 1545, Administer over 60 Minutes, CAUTION: CHEMOTHERAPY HANDLE WITH GLOVES ! Start Infusion 04/15/2023 2:16 PM EDT 25.6 mg 100 mL/hr ondansetron (Zofran) tab 8 mg 8 mg, Oral, ONCE, On Sat04/15/23 at 1515, For 1 dose Given 04/15/2023 2:15 PM EDT 8 mg documented in this [...] the patient have Health Care Power of Green Prize Packer? No Code Status History Code Status Date Activated Date Inactivated Comments Full Code 06/15/2016 5:56 PM 08/09/2016 8:19 PM This order reflects the patients wishes and were consensually agreed upon. Question Answer Comments Discussion of Advance Directives occurred with: Patient Does the patient have a Living Will? No Does the patient have Health Care Power of Green Prize Packer? No Full Code 05/15/2016 3:18 AM 06/08/2016 6:42 PM This order reflects the patients wishes and were consensually agreed upon. Question Answer Comments Discussion of Advance Directives occurred with: Not Discussed Care Teams Glove Cutter Relationship Specialty Start Date End Date Joe Peng, DO [address] [place] [address] PCP - General Family Medicine 05/19/18 documented as of this encounter
--- OUTSIDE RECORDS SUMMARY | 2023-08-22 00:35 | External Medical Summary | Summary of Care ---
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); Hypomagnesemia [...] 016 07/31/2017 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 encounter 02/12/2012 04/27/2015 care home current use of anticoagulant therapy 0 [...] Encounters Date Type Specialty Care Team Description 04/15/2023 Hem/Onc Treatment Hematology [place] [place], Chair 6 Hem Onc Scenery [address] [place] [address] Arrived 04/16/2023 Hem/Onc Treatment Hematology [place] [place], Chair 1 Hem Onc Scenery [address] [place] [address] 04/22/2023 Office Visit Orthopedics Yovani Whitten MD [address] [place] [address] 05/14/2023 Laboratory Laboratory [place], Lab Scenery [address] [place] [address] 05/14/2023 Hem/Onc Treatment Hematology [place] [place], Chair 10 Hem Onc Scenery [address] [place] [address] 05/15/2023 Hem/Onc Treatment Hematology [place] [place], Chair 5 Hem Onc Scenery [address] [place] [address] 05/16/2023 Hem/Onc Treatment Hematology [place] [place], Chair 8 Hem Onc Scenery [address] [place] [address] 05/17/2023 Hem/Onc Treatment Hematology [place], Chair 8 Hem Onc Scenery [address] [place] [address] 06/03/2023 Laboratory Laboratory [place], Lab Scenery [address] [place] [address] 06/03/2023 Office Visit Hematology Oncology Corbin Nielson MD [address] [place] [address] 06/11/2023 Office Visit Cardiology Miya Jerez CRNP [address] [place] [address] 06/18/2023 Telemedicine Gastroenterology Syl Cohen, DO [address] [place] [address] 07/09/2023 Office Visit Family Medicine Rayna Solares PA-C [address] [place] [address] 11/06/2023 Office Visit Family Medicine Joe Peng, DO [address] [place] [address] Pending Results Name Type Priority Associated Diagnoses Date /Time CBC WITH WBC DIFFERENTIAL Lab STAT 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 No Code Status History Code Status Date Activated Date Inactivated Comments Full Code 06/15/2016 5:56 PM 08/09/2016 8:19 PM This order reflects the patients wishes and were consensually agreed upon. Question Answer Comments Discussion of Advance Directives occurred with: Patient Does the patient have a Living Will? No Does the patient have Health Care Power of Knowledge Analyst? No Full Code 05/15/2016 3:18 AM 06/08/2016 6:42 PM This order reflects the patients wishes and were consensually agreed upon. Question Answer Comments Discussion of Advance Directives occurred with: Not Discussed Care Teams Travel Ot Relationship Specialty Start Date End Date Joe Peng, DO [address] [place] [address] PCP - General Family Medicine 05/19/18 documented as of this encounter
--- OUTSIDE RECORDS SUMMARY | 2023-08-22 00:35 | External Medical Summary ---
Author Name Unknown Address Unknown Organization K09:[facility] [place] [address] Laboratory Report Ordering Provider Test Date Status APYRL MARINELLI 04/15/2023 13:05:10 Final Observation Date Value Abnormality Reference (Units ) Status SYNC LEUKOCYTES IN BLOOD BY AUTOMATED COUNT 04/15/2023 13:05:10 4.56 4.00-10.80 (K/uL) Final Segs 04/15/2023 13:05:10 44.1 40.0-75.0 (%) Final Lymphs % 04/15/2023 13:05:10 40.1 18.0-42.0 (%) Final Monos 04/15/2023 13:05:10 9.6 1.0-11.0 (%) Final Eosinophils 04/15/2023 13:05:10 4.4 0.0-6.0 (%) Final Basos 04/15/2023 13:05:10 1.8 0.0-2.0 (%) Final Absolute Segs 04/15/2023 13:05:10 2.01 1.80-7.70 (K/uL) Final Lymphs, absolute 04/15/2023 13:05:10 1.83 1.00-4.80 (K/ul) Final Monos, Abs 04/15/2023 13:05:10 0.44 0.00-1.10 (K/uL) Final Eos, Abs 04/15/2023 13:05:10 0.20 0.00-0.70 (K/uL) Final Basos, Abs 04/15/2023 13:05:10 0.08 0.00-0.20 (K/uL) Final Performing Location [facility] [place] [address]
--- OUTSIDE RECORDS SUMMARY | 2023-08-22 00:35 | External Medical Summary ---
Author Name Unknown Address Unknown Organization [facility] [place] [address] Laboratory Report Ordering Provider Test Date Status APRYL MARINELLI 04/15/2023 13:05:10 Final Observation Date Value Abnormality Reference (Units ) Status Nucleated erythrocytes/100 leukocytes [Ratio] in Blood by Automated count 04/15/2023 13:05:10 Final Performing Location [facility] [place] [address]
--- OUTSIDE RECORDS SUMMARY | 2023-08-22 00:35 | External Medical Summary | Summary of Care ---
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) Encounter for antineoplastic chemotherapy Procedures [place] DECITABINE INJECTION Corbin Nielson MD [address] [facility] [place] [address] Anc Hem/Onc [facility] [address] [facility] [place], [place] [address] Referral ID Status Reason Start Date Expiration Date V isits Requested Visits Authorized [id number] Authorized 07/05/2021 08/04/2099 99 99 Encounter Details Date Type Department Care Team Description 04/10/2023 Hem/Onc Treatment Hematology/Oncology Treatment, [place] [address] [facility] [place] [address] Acute myeloid leukemia not having achieved remission (HCC)*; 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); Encounter for antineoplastic chemotherapy Allergies Active Allergy Reactions Severity Noted Date Comments Amoxicillin Nausea/vomiting 11/14/2015 Penicillins Nausea/vomiting Low 08/12/2007 tolerated cephalosporins in past Other reaction(s): Nausea Only Other reaction(s): "makes me nervous", Nausea documented as of this encounter (statuses as of 04/10/2023) Medications Medication Sig Dispensed Refills Start Date [...] as of this encounter (statuses as of 04/10/2023) Active Problems Problem Noted Date Hypotension 06/19/2022 [...] as of this encounter (statuses as of 04/10/2023) Resolved Problems Problem Noted Date Resolved Date [...] 016 07/31/2017 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 0 02/12/2012 04/27/2015 Overview: ICD-10 update of inactive term Other disorder of menstruati on and other abnormal bleeding from female genital tract 09/16/2007 04/27/2015 Uterine leiomyoma 09/16/2007 04/27/2015 documented as of this encounter (statuses as of 04/10/2023) Immunizations Name Administration Dates Next Due COVID-19 [...] Sign Reading Time Taken Comments Blood Pressure 107/65 04/10/2023 11:30 AM EDT Pulse 85 04/10/2023 11:30 AM EDT Temperature - - Respiratory Rate 20 04/10/2023 11:30 AM EDT Oxygen Saturation 99% 04/10/2023 11:30 AM EDT Inhaled Oxygen Concentration - - [...] Nursing Notes * Melissa Lynn RN - 04/10/2023 1:43 PM EDT Dacogen infusion is complete. Pt [...] Pt discharged in stable condition, assist by Ankush Cohen RN. * Melissa Lynn RN - 04/10/2023 12:11 PM EDT Ch 11. Pt arrived today for Dacogen infusion. She denies any new concerns since infusion yesterday. Chemo agents Dacogen Appetite fair to good Nausea/Vomiting denies Diarrhea denies Constipation denies Mucositis denies Fatigue mild Bleeding denies Infection denies Rash denies Numbness tingling bilat LE, has not started gabapentin that PCP prescribed yesterday Pain bilat LE Radiation no ABN Labs none today Alt in Tx: no Return in 1 day Safety and Risk for Injury Patient will remain free from injury. Ensure appropriate safety devices are available. Provide and maintain safe environment. documented in this encounter Plan of Treatment Upcoming Encounters Date Type Specialty Care Team Description 04/11/2023 Hem/Onc Treatment Hematology Oncology 04/12/2023 Hem/Onc Treatment Hematology [place], Chair 6 Hem Onc Scenery [address] [place] [address] 04/22/2023 Office Visit Orthopedics Yovani Whitten MD [address] [place] [address] 05/07/2023 Laboratory Laboratory [place], Lab Scenery [address] [place] [address] 05/07/2023 Hem/Onc Treatment Hematology [place], Chair 2 Hem Onc Scenery [address] [place] [address] 05/08/2023 Hem/Onc Treatment Hematology [place]cology [place], Chair 3 Hem Onc Scenery [address] [place] [address] 05/09/2023 Hem/Onc Treatment Hematology [place]cology [place], Chair 3 Hem Onc Scenery [address] [place] [address] 05/10/2023 Hem/Onc Treatment Hematology Oncology [place], Chair 2 Hem Onc Scenery [address] [place] [address] 06/03/2023 Laboratory Laboratory [place], Lab Scenery [address] [place] [address] 06/03/2023 Office Visit Hematology Oncology Corbin Nielson MD [address] [place] [address] 06/11/2023 Office Visit Cardiology Miya Jerez CRNP [address] [place] [address] 06/18/2023 Telemedicine Gastroenterology Syl Cohen DO [address] [place] [address] 07/09/2023 Office Visit Family Medicine Rayna Solares PA-C [address] [place] [address] 11/06/2023 Office Visit Family Medicine Joe Peng DO [address] [place] [address] Scheduled Procedures Name Priority Associated Diagnoses Date/Ti [...] and Over 06/19/2023 06/19/2022 TSH 12/11/2023 12/10/2022, 0509/2021, 08/31/2020, [...] ONCE PRN Other, Hypersensitivity Reaction, Starting on Sat04/10/23 at 1148, Until Verena 04/11/23 at 1147, For 24 hours EPINEPHrine 1 MG/ML inj 0.3 mg 0.3 mg, Intramuscular, ONCE PRN Other, Hypersensitivity Reaction or Anaphylaxis, Starting on Sat04/10/23 at 1148, Until Verena 04/11/23 at 1147, For 24 hours hEParin 100 UNIT/ML Lock Flush inj 500 Units 500 Units (5 mL), IV Lock, PRN Other, IV Flush, Starting on Sat04/10/23 at 1148, Until Verena 04/11/23 at 1147, For 24 hours, Do not flush if lock, PICC, or central line not in place; IV infusing or unable to flush. Given 04/10/2023 12:50 PM EDT 500 Units Hydrocortisone Sod Suc (PF) (Solu-Cortef) inj 100 mg 100 mg, IV Push, ONCE PRN Other, Hypersensitivity Reaction, Starting on Sat04/10/23 at 1148, Until Verena 04/11/23 at 1147, For 24 hours NSS infusion 500 mL, Intravenous, at 50 mL/hr, CONTINUOUS, Starting on Sat04/10/23 at 1300, Until Sat04/10/23 at 2259 Start Infusion 04/10/2023 11:45 AM EDT 500 mL 50 mL/hr sodium chloride 0.9 % flush central line 10 mL 10 mL, IV Push, PRN Other, IV Flush, Starting on Sat04/10/23 at 1148, Until Verena 04/11/23 at 1147, For 24 hours, Do not flush if lock, PICC, or central line not in place; IV infusing or unable to flush. Given 04/10/2023 12:50 PM EDT 10 mL Inactive Administered Medications - up to 3 most recent administrations Medication Order MAR Action Action Date Dose Rate Site Decitabine (Dacogen) 25.6 mg in NSS 100 mL infusion 25.6 mg (16 mg/m2 1.6 m2 Order-specific BSA), IV Piggyback, ONCE, 1 dose, On Sat04/10/23 at 1330, Administer over 60 Minutes, CAUTION: CHEMOTHERAPY HANDLE WITH GLOVES ! Start Infusion 04/10/2023 11:49 AM EDT 25.6 mg 100 mL/hr documented [...] the patient have Health Care Power of Warp Changer? No Code Status History Code Status Date Activated Date Inactivated Comments Full Code 06/15/2016 5:56 PM 08/09/2016 8:19 PM This order reflects the patients wishes and were consensually agreed upon. Question Answer Comments Discussion of Advance Directives occurred with: Patient Does the patient have a Living Will? No Does the patient have Health Care Power of Warp Changer? No Full Code 05/15/2016 3:18 AM 06/08/2016 6:42 PM This order reflects the patients wishes and were consensually agreed upon. Question Answer Comments Discussion of Advance Directives occurred with: Not Discussed Care Teams Community Relations Assistant Relationship Specialty Start Date End Date Joe Peng, DO [address] [place], [place] [address] PCP - General Family Medicine 05/19/18 documented as of this encounter
--- OUTSIDE RECORDS SUMMARY | 2023-08-22 00:35 | External Medical Summary | Summary of Care ---
Author Name Unknown Organization [facility] Address [address] [place] [address] Phone [phone] Care Team Providers Care Health Care Attorney Name Role Phone Joe Peng DO Primary Care Provider [phone] Reason for Visit * Reason Onset Date Comments Appointment Canceled 04/11/2023 Encounter Details Date Type Department Care Team Description 04/11/2023 Telephone Hematology/Oncology [facility] Patti [place] [address] [place] [address] Corbin Nielson MD [address] [place] [address] Appointment Canceled Allergies Active Allergy Reactions Severity Noted Date Comments Amoxicillin Nausea/vomiting 11/14/2015 Penicillins Nausea/vomiting Low 08/12/2007 tolerated cephalosporins in past Other reaction(s): Nausea Only Other reaction(s): "makes me nervous", Nausea documented as of this encounter (statuses as of 04/11/2023) Medications Medication Sig Dispensed Refills Start Date [...] as of this encounter (statuses as of 04/11/2023) Active Problems Problem Noted Date Hypotension 06/19/2022 [...] as of this encounter (statuses as of 04/11/2023) Resolved Problems Problem Noted Date Resolved Date [...] 016 07/31/2017 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 encounter 02/12/2012 04/27/2015 [facility] current use of anticoagulant therapy 0 02/12/2012 04/27/2015 Overview: ICD-10 update of inactive term Other disorder of menstruati on and other abnormal bleeding from female genital tract 09/16/2007 04/27/2015 Uterine leiomyoma 09/16/2007 04/27/2015 documented as of this encounter (statuses as of 04/11/2023) Immunizations Name Administration Dates Next Due COVID-19 mRNA, LNP-s, No Pre serve, 2-Dose Series ([employer]) 05/08/2021,08/29/2020,08/08/2020 DTaP - Dipth/Tet/Acell Pertussis 12/25/2017,10/04,09/25/2017 IPV [...] encounter Miscellaneous Notes * Telephone Encounter - Renée Cohen RN - 04/11/2023 10:03 AM EDT Called patient regarding message. She states that she saw Dr Peng, PCP on Saturday and she received the flu shot. She states that yesterday, "something came over me." She is concerned that from the flu shot she got the flu. Explained that that is not what typically happens, but she could have had some other type of virus and it is coincidental or from being in the Dr Office. She denies fever or chills. She did have an episode of vomiting. She said that she ate this morning, she was dizzy but it has improved. She states at 330 am she took her dog outside and had a GARCIA, her gave her tylenol, it is resolved. She took a COVID test and it was negative. Explained that if she is concerned about having the actual flu she should be tested so that she can get tamiflu if indicated. She states she will reach out to PCP. She states that she wants to get treatment tomorrow if Dr Nielson is OK with that and then again on Saturday. Explained that if she does have something contagious the concern would be other patients in the treatment room who are immunocompromised and susceptible. She verbalizes understanding and she would like to do what Dr Nielson advises. Dr Nielson: please read above and advise regarding remainder 2 days of decitabine. Thanks! * Telephone Encounter - JARON Mccall - 04/11/2023 8:56 AM EDT Nursing- Patient called, stated she needs to cancel today's treatment. She received a flu shot at her PCP Saturday, started to feel sick and dizzy during treatment Saturday, but decided to finish treatment. Patient now believes she has the flu. Patient would like to speak to a nurse regarding her other treatment scheduled documented in this encounter Plan of Treatment Upcoming Encounters Date Type Specialty Care Team Description 04/12/2023 Hem/Onc Treatment Hematology [place]cology [place], Chair 6 Hem Onc Scenery [address] [place] [address] 04/22/2023 Office Visit Orthopedics Yovani Whitten MD [address] [place] [id number] 05/07/2023 Laboratory Laboratory [place], Lab Scenery [address] [place] [address] 05/07/2023 Hem/Onc Treatment Hematology Oncology [place], Chair 2 Hem Onc Scenery [address] [place] [address] 05/08/2023 Hem/Onc Treatment Hematology Oncology [place], Chair 3 Hem Onc Scenery [address] [place] [address] 05/09/2023 Hem/Onc Treatment Hematology Oncology [place], Chair 3 Hem Onc Scenery [address] [place] [address] 05/10/2023 Hem/Onc Treatment Hematology Oncology [place], Chair 2 Hem Onc Scenery [address] [place] [address] 06/03/2023 Laboratory Laboratory [place], Lab Scenery [address] [place] [address] 06/03/2023 Office Visit Hematology Oncology Corbin Nielson MD [address] [place] [address] 06/11/2023 Office Visit Cardiology Miya Jerez CRNP [address] [place] [address] 06/18/2023 Telemedicine Gastroenterology Syl Cohen, DO [address] [place] [address] 07/09/2023 Office Visit Family Medicine Rayna Solares PA-C [address] [place] [address] 11/06/2023 Office Visit Family Medicine Joe Peng DO [address] [place] [address] Scheduled Procedures Name Priority Associated Diagnoses Date/Ti [...] the patient have Health Care Power of Occupational Therapy Teacher? No Code Status History Code Status Date Activated Date Inactivated Comments Full Code 06/15/2016 5:56 PM 08/09/2016 8:19 PM This order reflects the patients wishes and were consensually agreed upon. Question Answer Comments Discussion of Advance Directives occurred with: Patient Does the patient have a Living Will? No Does the patient have Health Care Power of Occupational Therapy Teacher? No Full Code 05/15/2016 3:18 AM 06/08/2016 6:42 PM This order reflects the patients wishes and were consensually agreed upon. Question Answer Comments Discussion of Advance Directives occurred with: Not Discussed Care Teams Health Care Attorney Relationship Specialty Start Date End Date Joe Peng, DO [address] [facility] [address] [place], [place] [address] PCP - General Family Medicine 05/19/18 documented as of this encounter
--- OUTSIDE RECORDS SUMMARY | 2023-08-22 00:35 | External Medical Summary | Summary of Care ---
Author Name Unknown Organization [facility] Address [address] [place] [address] Phone [phone] Care Team Providers Care Sign Fabricator Name Role Phone Joe Peng DO Primary Care Provider [phone] Reason for Visit * Reason Onset Date Comments Appointment Canceled 04/11/2023 Encounter Details Date Type Department Care Team Description 04/11/2023 Telephone Hematology/Oncology [facility] Patti [place] [address] [place] [address] Corbin Nielson MD [address] [place] [address] Appointment Canceled Allergies Active Allergy Reactions Severity [...] mRNA, LNP-s, No Pre serve, 2-Dose Series ([employer]) 05/08/2021,08/29/2020,08/08/2020 DTaP - Dipth/Tet/Acell Pertussis 12/25/2017,10/04,09/25/2017 IPV [...] Encounter - Renée Cohen RN - 04/11/2023 10:19 AM EDT TT to Dr Nielson about labs and next treatment cycle. He would like repeat CBCD on Saturday and to delay the next cycle by one week. Patient is aware of POC and that scheduling will be in contact. Scheduling: please cancel treatment tomorrow. Please call patient to reschedule as follows - Saturday (04/15) labs- CBCd - 2 hr appt on 503 "C47D3 Dacogen" - Saturday (04/16) 2 hr appt on 503 "[id number] Dacogen" Also- her next appts for 05/07-05/10 will need to be rescheduled to the following week per Dr Nielson. * Telephone Encounter - Renée Cohen RN [...] wants to get treatment tomorrow if Dr Nileson is OK with that and then again [...] Team Description 04/12/2023 Hem/Onc Treatment Hematology Oncology [place], Chair 6 Hem Onc Scenery [address] [place] [address] 04/22/2023 Office Visit Orthopedics Yovani Whitten MD [address] [facility] [place] [address] 05/07/2023 Laboratory Laboratory [place], Lab Scenery [address] [place] [address] 05/07/2023 Hem/Onc Treatment Hematology Oncology [place], Chair 2 Hem Onc Scenery [address] [place] [address] 05/08/2023 Hem/Onc Treatment Hematology Oncology [place], Chair 3 Hem Onc Scenery [address] [place] [address] 05/09/2023 Hem/Onc Treatment Hematology Oncology [place], Chair 3 Hem Onc Scenery [address] [place] [address] 05/10/2023 Hem/Onc Treatment Hematology Oncology [place], Chair 2 Hem Onc Scenery [address] [place] [address] 06/03/2023 Laboratory Laboratory [place], Lab Scenery [address] [place] [address] 06/03/2023 Office Visit Hematology Oncology Corbin Nielson MD [address] [place] [address] 06/11/2023 Office Visit Cardiology Miya Jerez CRNP [address] [place] [address] 06/18/2023 Telemedicine Gastroenterology Syl oChen DO [address] [place] [address] 07/09/2023 Office Visit Family Medicine Rayna Solares PA-C [address] [place] [address] 11/06/2023 Office Visit Family Medicine Joe Peng DO [address] [place] [address] Scheduled Procedures Name Priority Associated Diagnoses Date/Ti [...] and Over 06/19/2023 06/19/2022 TSH 12/11/2023 12/10/2022, 09/2021, 08/31/2020, [...] the patient have Health Care Power of Computer Graphic Artist? No Code Status History Code Status Date Activated Date Inactivated Comments Full Code 06/15/2016 5:56 PM 08/09/2016 8:19 PM This order reflects the patients wishes and were consensually agreed upon. Question Answer Comments Discussion of Advance Directives occurred with: Patient Does the patient have a Living Will? No Does the patient have Health Care Power of Computer Graphic Artist? No Full Code 05/15/2016 3:18 AM 06/08/2016 6:42 PM This order reflects the patients wishes and were consensually agreed upon. Question Answer Comments Discussion of Advance Directives occurred with: Not Discussed Care Teams Sign Fabricator Relationship Specialty Start Date End Date Joe Peng, DO [address] [place] [address] PCP - General Family Medicine 05/19/18 documented as of this encounter
--- OUTSIDE RECORDS SUMMARY | 2023-08-22 00:35 | External Medical Summary | Summary of Care ---
Author Name Unknown Organization [facility] Address [address] [place] [address] Phone [phone] Care Team Prov[address] Care Court Advocate Name Role Phone Joe Peng DO Primary Care Provider [phone] Reason for Visit * Reason Onset Date Comments Appointment Canceled 04/11/2023 Encounter Details Date Type Department Care Team Description 04/11/2023 Telephone Hematology/Oncology [facility] Patti [place] [address] [place] [address] Corbin Nielson MD [address] [place] [address] Appointment Canceled Allergies Active Allergy Reactions Severity [...] mRNA, LNP-s, No Pre serve, 2-Dose Series ([employer]) 05/08/2021,08/29/2020,08/08/2020 DTaP - Dipth/Tet/Acell Pertussis 12/25/2017,10/04,09/25/2017 IPV [...] encounter Miscellaneous Notes * Telephone Encounter - JARON Benoit - 04/11/2023 10:59 AM EDT Called and lmom for patient with appt times and days for next week. Also adjusted appts in May per nursing. Done. * Telephone Encounter - Renée Cohen RN [...] Date Type Specialty Care Team Description 04/15/2023 Laboratory Laboratory [place], Lab Scenery [address] [place] [address] 04/15/2023 Hem/Onc Treatment Hematology Oncology [place], Chair 6 Hem Onc Scenery [address] [place] [address] 04/16/2023 Hem/Onc Treatment Hematology Oncology [place], Chair 1 Hem Onc Scenery [address] [place] [address] 04/22/2023 Office Visit Orthopedics Yovani Whitten MD [address] [place] [address] 05/14/2023 Laboratory Laboratory [place], Lab Scenery [address] [place] [place] [address] 05/14/2023 Hem/Onc Treatment Hematology [place]cology [place], Chair 10 Hem Onc Scenery [address] [place] [address] 05/15/2023 Hem/Onc Treatment Hematology Oncology [place], Chair 5 Hem Onc Scenery [address] [place] [address] 05/16/2023 Hem/Onc Treatment Hematology Oncology [place], Chair 8 Hem Onc Scenery [address] [place] [address] 05/17/2023 Hem/Onc Treatment Hematology Oncology [place], Chair 8 Hem Onc Scenery [address] [place] [address] 06/03/2023 Laboratory Laboratory [place], Lab Scenery [address] [place] [address] 06/03/2023 Office Visit Hematology Oncology Corbin Nielson MD [address] [place] [address] 06/11/2023 Office Visit Cardiology Miya Jerze CRNP [address] [place] [address] 06/18/2023 Telemedicine Gastroenterology Syl Cohen DO [address] [place] [address] 07/09/2023 Office Visit Family Medicine Rayna Solares PA-C [address] [place] [address] 11/06/2023 Office Visit Family Medicine Joe Peng DO [address] [place], [place] [address] Scheduled Procedures Name Priority Associated Diagnoses Date/Ti [...] the patient have Health Care Power of Net Ui Developer? No Code Status History Code Status Date Activated Date Inactivated Comments Full Code 06/15/2016 5:56 PM 08/09/2016 8:19 PM This order reflects the patients wishes and were consensually agreed upon. Question Answer Comments Discussion of Advance Directives occurred with: Patient Does the patient have a Living Will? No Does the patient have Health Care Power of Net Ui Developer? No Full Code 05/15/2016 3:18 AM 06/08/2016 6:42 PM This order reflects the patients wishes and were consensually agreed upon. Question Answer Comments Discussion of Advance Directives occurred with: Not Discussed Care Teams Court Advocate Relationship Specialty Start Date End Date Joe Peng, DO [address] [place], [place] [address] PCP - General Family Medicine 05/19/18 documented as of this encounter
--- OUTSIDE RECORDS SUMMARY | 2023-08-22 00:35 | External Medical Summary | Summary of Care ---
Author Name Unknown Organization [facility] Address [address] [place] [address] Phone [phone] Care Team Providers Care Tank Builder And Erector Name Role Phone Joe Peng DO Primary Care Provider [phone] Reason for Visit * Reason Onset Date Comments Appointment Canceled 04/11/2023 Encounter Details Date Type Department Care Team Description 04/11/2023 Telephone Hematology/Oncology [facility] Patti [place] [address] [place] [address] Corbin Nielson MD [address] [place] [address] Appointment Canceled Allergies Active Allergy Reactions Severity [...] 016 07/31/2017 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 encounter 02/12/2012 04/27/2015 [facility] current use of anticoagulant therapy 0 02/12/2012 04/27/2015 Overview: ICD-10 update of inactive term Other disorder of menstruati on and other abnormal bleeding from female genital tract 09/16/2007 04/27/2015 Uterine leiomyoma 09/16/2007 04/27/2015 documented as of this encounter (statuses as of 04/11/2023) Immunizations Name Administration Dates Next Due COVID-19 mRNA, LNP-s, No Pre serve, 2-Dose Series ([email or web address]) 05/08/2021,08/29/2020,08/08/2020 DTaP - Dipth/Tet/Acell Pertussis 12/25/2017,10/04,09/25/2017 IPV [...] Miscellaneous Notes * Telephone Encounter - JARON Mccall - [...] Hem Onc Scenery [address] [place] [address] 04/22/2023 Office Visit Orthopedics oYvani Whitten MD [address] [place] [address] 05/07/2023 Laboratory Laboratory [place], Lab Scenery [address] [place] [address] 05/07/2023 Hem/Onc Treatment Hematology Oncology [place], Chair 2 Hem Onc Scenery [address] [place] [address] 05/08/2023 Hem/Onc Treatment Hematology Oncology [place], Chair 3 Hem Onc Scenery [address] [place] [address] 05/09/2023 Hem/Onc Treatment Hematology Oncology [place], Chair 3 Hem Onc Scenery [address] [place] [address] 05/10/2023 Hem/Onc Treatment Hematology Oncology [place], Chair 2 Hem Onc Scenery [address] [place] [address] 06/03/2023 Laboratory Laboratory [place], Lab Scenery [address] [place] [address] 06/03/2023 Office Visit Hematology Oncology Corbin Nielson MD [address] [place] [address] 06/11/2023 Office Visit Cardiology Miya Jerez CRNP [address] [place] [address] 06/18/2023 Telemedicine Gastroenterology Syl Cohen DO [address] [place] [address] 07/09/2023 Office Visit Family Medicine Rayna Solares PA-C [address] [place] [address] 11/06/2023 Office Visit Family Medicine Joe Peng DO [address] [place] [address] Scheduled Procedures Name Priority Associated Diagnoses Date/Ti [...] 08/15/2020, Additional history exists GFR 04/09/2024 04/09/2023, 0 02/2023, 02/11/2023, Additional history exists COLONOSCOPY-EVERY 3 [...] the patient have Health Care Power of Unified Communications Engineer? No Code Status History Code Status Date Activated Date Inactivated Comments Full Code 06/15/2016 5:56 PM 08/09/2016 8:19 PM This order reflects the patients wishes and were consensually agreed upon. Question Answer Comments Discussion of Advance Directives occurred with: Patient Does the patient have a Living Will? No Does the patient have Health Care Power of Unified Communications Engineer? No Full Code 05/15/2016 3:18 AM 06/08/2016 6:42 PM This order reflects the patients wishes and were consensually agreed upon. Question Answer Comments Discussion of Advance Directives occurred with: Not Discussed Care Teams Tank Builder And Erector Relationship Specialty Start Date End Date Joe Peng, DO [address] [place] [address] PCP - General Family Medicine 05/19/18 documented as of this encounter
--- OUTSIDE RECORDS SUMMARY | 2023-08-22 00:35 | External Medical Summary ---
Author Name Unknown Address Unknown Organization K[facility] [address] Laboratory Report Ordering Provider Test Date Status APRYL MARINELLI 04/15/2023 13:05:10 Final Observation Date Value Abnormality Reference (Units ) Status WBC, Total 04/15/2023 13:05:10 4.56 4.00-10.8 0 (K/uL) Final RBC 04/15/2023 13:05:10 2.98 3.85-5.15 (M/uL) Final Hemoglobin 04/15/2023 13:05:10 10.7 Below low normal 12 .0-15.3 (g/dL) Final HCT 04/15/2023 13:05:10 32.6 Below low normal 36. 0-45.2 (%) Final MCV 04/15/2023 13:05:10 109.4 81.5-97.5 (fL) Final MCH 04/15/2023 13:05:10 35.9 27.0-34.0 (pg) Final MCHC 04/15/2023 13:05:10 32.8 32.0-36.0 (g/dL) Final RDW 04/15/2023 13:05:10 14.2 11.5-15.5 (%) Final Platelets 04/15/2023 13:05:10 225 140-400 (K /uL) Final MPV 04/15/2023 13:05:10 9.0 6.6-11.1 ( fL) Final Performing Location [facility] [place] [address]
--- OUTSIDE RECORDS SUMMARY | 2023-08-22 00:36 | External Medical Summary ---
Author Name Unknown Address Unknown Organization [facility] [place] [address] Laboratory Report Ordering Provider Test Date Status APRYL MARINELLI 04/09/2023 12:06:33 Final Observation Date Value Abnormality Reference (Units ) Status WBC, Total 04/09/2023 12:06:33 3.51 Below low normal 4. 00-10.80 (K/uL) Final RBC 04/09/2023 12:06:33 3.09 3.85-5.15 (M/uL) Final Hemoglobin 04/09/2023 12:06:33 11.1 Below low normal 12 .0-15.3 (g/dL) Final HCT 04/09/2023 12:06:33 33.6 Below low normal 36. 0-45.2 (%) Final MCV 04/09/2023 12:06:33 108.7 81.5-97.5 (fL) Final MCH 04/09/2023 12:06:33 35.9 27.0-34.0 (pg) Final MCHC 04/09/2023 12:06:33 33.0 32.0-36.0 (g/dL) Final RDW 04/09/2023 12:06:33 14.8 11.5-15.5 (%) Final Platelets 04/09/2023 12:06:33 269 140-400 (K /uL) Final MPV 04/09/2023 12:06:33 8.8 6.6-11.1 ( fL) Final Performing Location [facility] [place] [address]
--- OUTSIDE RECORDS SUMMARY | 2023-08-22 00:36 | External Medical Summary | Summary of Care ---
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); Hypomagnesemia; Diet-controlled diabetes mellitus (HCC) Allergies Active Allergy Reactions Severity Noted Date [...] 016 07/31/2017 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 encounter 02/12/2012 04/27/2015 correction current use of anticoagulant therapy 0 02/12/2012 04/27/2015 Overview: ICD-10 update of inactive term Other disorder of menstruati on and other abnormal bleeding from female genital tract 09/16/2007 04/27/2015 Uterine leiomyoma 09/16/2007 04/27/2015 documented as of this encounter (statuses as of 04/09/2023) Immunizations Name Administration Dates Next Due COVID-19 mRNA, LNP-s, No Pre serve, 2-Dose Series ([employer]) 05/08/2021,08/29/2020,08/08/2020 DTaP - Dipth/Tet/Acell Pertussis 12/25/2017,10/04,09/25/2017 IPV [...] Encounters Date Type Specialty Care Team Description 04/09/2023 Hem/Onc Treatment Hematology Oncology [place], Chair 9 Hem Onc Scenery [address] [place] [address] Arrived 04/10/2023 Hem/Onc Treatment Hematology Oncology 04/11/2023 Hem/Onc Treatment Hematology Oncology 04/12/2023 Hem/Onc Treatment Hematology Oncology [place], Chair 6 Hem Onc Scenery [address] [place] [address] 04/22/2023 Office Visit Orthopedics Yovani Whitten MD [address] [place] [address] 06/03/2023 Laboratory Laboratory [place] [address] [place] [address] 06/03/2023 Office Visit Hematology Oncology Corbin Nielson MD [address] [place] [address] 06/11/2023 Office Visit Cardiology Miya Jerez CRNP [address] [place] [address] 06/18/2023 Telemedicine Gastroenterology Syl Cohen DO [address] [place] [address] 07/09/2023 Office Visit Family Medicine Rayna Solares PA-C [address] [place] [address] 11/06/2023 Office Visit Family Medicine Joe Pegn DO [address] [facility] [place] [address] Pending Results Name Type Priority Associated Diagnoses Date /Time CBC WITH WBC DIFFERENTIAL Lab STAT 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) Hypomagnesemia 04/09/2023 12:06 PM EDT COMPREHENSIVE METABOLIC PANEL Lab STAT 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) Hypomagnesemia 04/09/2023 12:06 PM EDT MAGNESIUM Lab STAT 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) Hypomagnesemia 04/09/2023 12:06 PM EDT CBC Lab STAT 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) Hypomagnesemia 04/09/2023 12:06 PM EDT DIFFERENTIAL, AUTOMATED Lab STAT 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) Hypomagnesemia 04/09/2023 12:06 PM EDT ALBUMIN / CREATININE RATIO, URINE Lab Routine Diet-controlled diabetes mellitus (HCC) 04/09/2023 12:11 PM EDT Scheduled Procedures Name Priority Associated [...] and Over 06/19/2023 06/19/2022 TSH 12/11/2023 12/10/2022, 05/0 09/2021, 08/31/2020, Additional history exists GFR 03/11/2024 03/11/2023, 02/02, 01/07/2023, Additional history exists Mammogram 03/20/2024 03/20/2023, 02/03, 02/21/2022, Additional history exists COLONOSCOPY-EVERY 3 YRS AGES [...] in relapse Hypomagnesemia Disorders of magnesium metabolism Diet-controlled diabetes mellitus (HCC) documented in this encounter Advance Directives Latest Code Status on File Code Status Date Activated Date Inactivated Comments Full Code 04/02/2017 4:50 AM 04/17/2017 3:02 PM This order reflects the patients wishes and were consensually agreed upon. Question Answer Comments Discussion of Advance Directives occurred with: Family Does the patient have a Living Will? No Does the patient have Health Care Power of Piano Regulator Inspector? No Code Status History Code Status Date Activated Date Inactivated Comments Full Code 06/15/2016 5:56 PM 08/09/2016 8:19 PM This order reflects the patients wishes and were consensually agreed upon. Question Answer Comments Discussion of Advance Directives occurred with: Patient Does the patient have a Living Will? No Does the patient have Health Care Power of Piano Regulator Inspector? No Full Code 05/15/2016 3:18 AM 06/08/2016 6:42 PM This order reflects the patients wishes and were consensually agreed upon. Question Answer Comments Discussion of Advance Directives occurred with: Not Discussed Care Teams Daycare Director Relationship Specialty Start Date End Date Joe Peng, DO [address] [place] [address] PCP - General Family Medicine 05/19/18 documented as of this encounter
--- OUTSIDE RECORDS SUMMARY | 2023-08-22 00:36 | External Medical Summary ---
Author Name Unknown Address Unknown Organization K01:[facility] [place] [address] [place] [address] Laboratory Report Ordering Provider Test Date Status DEBBIE GUTIERREZDEEPIKA 04/09/2023 12:11:00 Final Normal: <30 mg/g creatinine< br/>High: 30-300 mg/g creatinine
Very High: >300 mg/g creatinine
Nephrotic: >2200 mg/g creatinine Observation Date Value Abnormality Reference (Units ) Status Albumin, Urine 04/09/2023 12:11:00 <1.20 (mg/dL) Final Creatinine, Urine 04/09/2023 12:11:00 45 (mg/dL) Final Albumin/Creatinine [Mass Ratio] in Urine 04/09/2023 12:11:00 <27 <30 (mg/g Creat) Final Performing Location [facility] [place] - [address] [place] [address]
--- OUTSIDE RECORDS SUMMARY | 2023-08-22 00:36 | External Medical Summary | Summary of Care ---
Author Name Unknown Organization [facility] Address [address] [place] [address] Phone [phone] Care Team Providers Care Revenue Director Name Role Phone Joe Peng DO Primary Care Provider [phone] Reason for Visit * Reason Onset Date Comments Follow Up Medication Administration 04/09/2023 Flu an d/or Pneumo Inj Encounter Details Date Type Department Care Team Description 04/09/2023 Office Visit Family Practice [facility] [place] [address] [facility] [place] [address] Joe Peng DO [address] [place] [address] Lumbar radiculopathy*; 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); Thrombocytopenia (HCC); Diet-controlled diabetes mellitus (HCC); Need for prophylactic vaccination and inoculation against influenza Allergies Active Allergy Reactions Severity Noted Date [...] 016 07/31/2017 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 encounter 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 0 02/12/2012 04/27/2015 Overview: ICD-10 update of inactive term Other disorder of menstruati on and other abnormal bleeding from female genital tract 09/16/2007 04/27/2015 Uterine leiomyoma 09/16/2007 04/27/2015 documented as of this encounter (statuses as of 04/09/2023) Immunizations Name Administration Dates Next Due COVID-19 mRNA, LNP-s, No Pre serve, 2-Dose Series ([email or web address]) 05/08/2021,08/29/2020,08/08/2020 DTaP - Dipth/Tet/Acell Pertussis 12/25/2017,10/04,09/25/2017 IPV [...] Sign Reading Time Taken Comments Blood Pressure 98/60 04/09/2023 9:25 AM EDT Pulse 80 04/09/2023 9:25 AM EDT Temperature 37.2 C (98.9 F) 04/09/2023 9:25 AM ED T Respiratory Rate 20 04/09/2023 9:25 AM EDT Oxygen Saturation 99% 04/09/2023 9:25 AM EDT Inhaled Oxygen Concentration - - Weight 49.9 kg (110 lb) 04/09/2023 9:25 AM EDT Height 168.9 cm (5' 6.5") 04/09/2023 9:25 AM EDT Body Mass Index 17.49 04/09/2023 9:25 AM [...] as of this encounter Progress Notes * LUCIO Argueta - 04/09/2023 10:02 AM EDT PRE - ADMINISTRATION DOCUMENTATION Are you experiencing any cold symptoms or fever? No Have you had Guillain-[place] Syndrome (an illness that causes paralysis) within the last 6 weeks? No Have you had the flu shot in the past? YES Have you ever had a reaction to the flu shot? No LUCIO Argueta, 04/09/2023 10:02 AM Immunization Administration Documentation Time Out Procedure Performed: Yes Patient Identified (Ask Name/Date of ): Yes Does the patient have a fever greater than 101 degrees today? No Patient allergic to latex? No VFC Stock: No Immunization(s) verified: Yes, Immunization Name: Flu, VIS Sheet(s) given: Yes Verified Side and Site: Yes Verified Shot(s) with Parent(s)/Patient: Yes * Joe Peng, - 04/09/2023 9:44 AM EDT Subjective: Codi Soto is a 68 year old female. Chief Complaint Patient presents with Follow Up HPI: Pt here in follow-up. Shingles shot discussed. She will hold off for now. Will get flu shot today. She is getting pains in her leg. She woke up in the night from her hip to her ankle. She took some tylenol but it did not totally help. It did not go away. She has some vicodin and took it. It did help. She saw Dr. Kirkland, had x-rays and sent her to ortho. Considering hip replacement. Severe OA seen. It is a shooting pain all the way down her leg. Bad pain is dwn and in her leg. She did do PT for this before. Had to stop walking her dog because of this. Sometimes either leg could hurt. Down to chemotherapy once per month. Mood has been okay. Taking her medication and it helps. Buspirone has helped her greatly. PMHx, meds, and allergies reviewed Doing some renovations in the house. Taking a lot out of them. 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 30 Tablet3 Cyanocobalamin 1000 MCG Oral Tablet (Cyanocobalamin) Take 1 Tablet by mouth in the morning. 90 Tablet 1 Levothyroxine Sodium 150 MCG Oral Tablet (Levoxyl) TAKE 1 TABLET IN THE MORNING AT LEAST 30 MINUTESPRIOR TO BREAKFAST OR OTHERMEDICATIONS 90 Tablet 1 Ondansetron 8 MG Oral Tablet Disintegrating Place 1 Tablet on tongue every 8 hours as needed for Nausea. dissolve on tongue. 30 Tablet 2 Omeprazole 20 MG Oral Capsule Delayed Release (PriLOSEC) TAKE 1 CAPSULE DAILY 90 Capsule 1 HYDROcodone-Acetaminophen 10-325 MG Oral Tablet Take 1 Tablet by mouth every 6 hours as needed for Pain, Breakthrough. Pt stated she took some old hydrocodone- acetaminophen to assist with her pain Acetaminophen 500 MG Oral Tablet (Tylenol) Take 1 Tablet by mouth every 6 hours as needed. Diclofenac Sodium 1 % External Gel (Voltaren) Apply topically to affected area 3 times a day as needed (pain). 1 g 0 No current facility-administered medications for this visit. Review of patient's allergies indicates: Allergen Reactions Amoxicillin Nausea/vomiting Penicillins Nausea/vomiting tolerated cephalosporins in past Other reaction(s): Nausea Only Other reaction(s): "makes me nervous", Nausea OBJECTIVE: BP 98/60 (BP Site: Left Arm, BP Position: Sitting, BP Cuff Size: Regular) | Pulse 80 | Temp 37.2 C (98.9 F) (Tympanic) | Resp 20 | Ht 1.689 m (5' 6.5") | Wt 49.9 kg (110 lb) | LMP 03/20/2009 | SpO2 99% | BMI 17.49 kg/m | BSA 1.53 m Estimated body mass index is 17.49 kg/m as calculated from the following: Height as of this encounter: 1.689 m (5' 6.5"). Weight as of this encounter: 49.9 kg (110 lb). BP Readings from Last 3 Encounters: 04/09/23 98/60 03/15/23 90/62 03/14/23 122/72 Wt Readings from Last 3 Encounters: 04/09/23 49.9 kg (110 lb) 03/15/23 50.4 kg (111 lb 3.4 oz) 03/11/23 49.9 kg (110 lb 1.6 oz) ROS: Negative except for above PHYSICAL EXAM: General: alert, healthy, and no distress Head: Normocephalic, No masses, lesions, tenderness or abnormalities Heart: regular rate & rhythm, no murmur, and no gallops Lungs: chest symmetric with normal AP diameter, no chest deformities noted, no chest wall tenderness, lungs clear to auscultation ASSESSMENT/Plan Lumbar radiculopathy (Primary) - Gabapentin 300 MG Oral Capsule (Neurontin); Take 1 Capsule by mouth in the morning and 1 Capsule in the evening. 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 We discussed possible causes of her pain and I lean more towards a neuropathy over just her hip as the cause. She can start gabapentin and see how it helps with her walking before seeing ortho to discuss her hip and the level of need for replacement. The above was discussed and understanding was expressed. Joe Peng DO documented in this encounter Nursing Notes * LUCIO Argueta - 04/09/2023 9:13 AM EDT Codi Espinoza Brittany 68 year old female is here for a follow up. She had her diabetic eye exam with Dr. Emerson and her diabetic foot exam by Dr. Starks who removed her toe earlier this year. She *believes* she had the flu vaccine this year but isn't certain. She is receiving chemo treatments 1 per month, and would like to know if it is safe for her to receive her shingles vaccines. documented in this encounter Plan of Treatment Upcoming Encounters Date Type Specialty Care Team Description 04/09/2023 Laboratory Laboratory [facility], Lab Scenery [address] [place] [id number] 04/09/2023 Hem/Onc Treatment Hematology Oncology [facility]atti, Chair 9 Hem Onc Scenery [address] [place] [id number] 04/10/2023 Hem/Onc Treatment Hematology Oncology 04/11/2023 Hem/Onc Treatment Hematology Oncology 04/12/2023 Hem/Onc Treatment Hematology Oncology [place], Chair 6 Hem Onc Scenery [address] [place] [address] 04/22/2023 Office Visit Orthopedics Yovani Whitten MD [address] [facility] [place] [address] 06/03/2023 Laboratory Laboratory [place], Lab Scenery [address] [place] [address] 06/03/2023 Office Visit Hematology Oncology Corbin Nielson MD [address] [place] [address] 06/11/2023 Office Visit Cardiology Miya Jerez CRNP [address] [place] [address] 06/18/2023 Telemedicine Gastroenterology Syl Cohen DO [address] [place] [address] 07/09/2023 Office Visit Family Medicine Rayna Solares PA-C [address] [place] [address] 11/06/2023 Office Visit Family Medicine Joe Peng DO [address] [place] [address] Scheduled Orders Name Type Priority Associated Diagnoses Orde r Schedule HEMOGLOBIN A1C Lab Routine Diet-controlled diabetes mellitus (HCC) Expected: 10/08/2023 (Approximate), Expires: 04/09/2024 ALBUMIN / CREATININE RATIO, URINE Lab Routine Diet-controlled diabetes mellitus (HCC) Expected: 04/09/2023 (Approximate), Expires: 04/08/2024 Scheduled Procedures Name Priority Associated Diagnoses Date/Ti [...] 12/11/2023 12/10/2022, 09/2021, 08/31/2020, Additional history exists GFR 03/11/2024 [...] of this encounter Visit Diagnoses Diagnosis Lumbar radiculopathy- Primary Thoracic or lumbosacral neuritis or radiculitis, unspecified 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) Lower limb amputation, great toe Thrombocytopenia (HCC) Thrombocytopenia, unspecified Diet-controlled diabetes mellitus (HCC) Need for prophylactic vaccination and inoculation against influenza documented in this encounter Advance Directives Latest Code Status on File Code Status Date Activated Date Inactivated Comments Full Code 04/02/2017 4:50 AM 04/17/2017 3:02 PM This order reflects the patients wishes and were consensually agreed upon. Question Answer Comments Discussion of Advance Directives occurred with: Family Does the patient have a Living Will? No Does the patient have Health Care Power of Car Spotter? No Code Status History Code Status Date Activated Date Inactivated Comments Full Code 06/15/2016 5:56 PM 08/09/2016 8:19 PM This order reflects the patients wishes and were consensually agreed upon. Question Answer Comments Discussion of Advance Directives occurred with: Patient Does the patient have a Living Will? No Does the patient have Health Care Power of Car Spotter? No Full Code 05/15/2016 3:18 AM 06/08/2016 6:42 PM This order reflects the patients wishes and were consensually agreed upon. Question Answer Comments Discussion of Advance Directives occurred with: Not Discussed Care Teams Revenue Director Relationship Specialty Start Date End Date Joe Peng DO [address] [place] [address] PCP - General Family Medicine 05/19/18 documented as of this encounter
--- OUTSIDE RECORDS SUMMARY | 2023-08-22 00:36 | External Medical Summary ---
Author Name Unknown Address Unknown Organization K09:[facility] [place] [address] Laboratory Report Ordering Provider Test Date Status APRYL MARINELLI 04/09/2023 12:06:33 Final Observation Date Value Abnormality Reference (Units ) Status Magnesium 04/09/2023 12:06:33 1.7 1.5-2.6 (m g/dL) Final Performing Location [facility] [place] [address]
--- OUTSIDE RECORDS SUMMARY | 2023-08-22 00:36 | External Medical Summary | Summary of Care ---
Author Name Unknown Organization [facility] Address [address] [place] [address] Phone [phone] Care Team Providers Care Physical Therapy Coordinator Name Role Phone Joe Peng DO Primary Care Provider [phone] Encounter Details Date Type Department Care Team Description 04/05/2023 Orders Only Hematology/Oncology, [facility] [address] [place] [address] Corbin Nielson MD [address] [place] [address] Allergies Active Allergy Reactions Severity Noted Date Comments Amoxicillin Nausea/vomiting 11/14/2015 Penicillins Nausea/vomiting Low 08/12/2007 tolerated cephalosporins in past Other reaction(s): Nausea Only Other reaction(s): "makes me nervous", Nausea documented as of this encounter (statuses as of 04/05/2023) Medications Medication Sig Dispensed Refills Start Date [...] as of this encounter (statuses as of 04/05/2023) Active Problems Problem Noted Date Hypotension 06/19/2022 Leukemia cutis 06/19/2022 Transaminasemia 06/19/2022 Vasovagal syncope 06/19/2022 Weight loss 06/19/2022 Chemotherapy-induced neutropenia 022 Acquired absence of left great toe 10/28 Neutropenia 02/15/2020 Amputated great toe of left foot 020 Chronic myeloid leukemia, BCR/ABL-positi ve, not having [...] as of this encounter (statuses as of 04/05/2023) Resolved Problems Problem Noted Date Resolved Date Uncontrolled type 2 diabetes mellitus with hyperglycemia, [...] 016 07/31/2017 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 encounter 02/12/2012 04/27/2015 prison current use of anticoagulant therapy 0 02/12/2012 04/27/2015 Overview: ICD-10 update of inactive term Other disorder of menstruati on and other abnormal bleeding from female genital tract 09/16/2007 04/27/2015 Uterine leiomyoma 09/16/2007 04/27/2015 documented as of this encounter (statuses as of 04/05/2023) Immunizations Name Administration Dates Next Due COVID-19 mRNA, LNP-s, No Pre serve, 2-Dose Series ([employer]) 05/08/2021,08/29/2020,08/08/2020 DTaP - Dipth/Tet/Acell Pertussis 12/25/2017,10/04,09/25/2017 IPV - Polio Virus Vaccine (Inact) 12/25/2017,,09/30/2017 MMR - Measles/Mumps/Rubella Vaccine 09/30/2017 Pneumococcal Conjugate Vacc, 13 Valent (Prevnar) 05/25/2019,12/25/2017,10/30/2017,09/25 Pneumococcal Polysaccharide PPV23 (Pneumovax) 07/06/2022 Seasonal Influenza, PF, 6 mo ns & Above, IM , (Flulaval) 04/27/2020,05/25/2019,05/19/2018 Seasonal Influenza, Quadriva lent Hd (Fluzone Hd) 06/18/2022 Seasonal Influenza, Quadriva lent Hd, 65+ Yrs [...] Date Type Specialty Care Team Description 04/09/2023 Office Visit Family Medicine Joe Peng DO [address] [place] [address] 04/09/2023 Laboratory Laboratory [facility], Lab Scenery [address] [place] [address] 04/09/2023 Hem/Onc Treatment Hematology Oncology [place], Chair 9 Hem Onc Scenery [address] [place] [address] 04/10/2023 Hem/Onc Treatment Hematology Oncology 04/11/2023 Hem/Onc Treatment Hematology Oncology 04/12/2023 Hem/Onc Treatment Hematology Oncology [place], Chair 6 Hem Onc Scenery [address] [place] [address] 04/22/2023 Office Visit Orthopedics Yovani Whitten MD [address] [place] [address] 06/03/2023 Laboratory Laboratory [facility], Lab Scenery [address] [place] [address] 06/03/2023 Office Visit Hematology Oncology Corbin Nielson MD [address] [place] [address] 06/11/2023 Office Visit Cardiology Miya Jerez CRNP [address] [place] [address] 06/18/2023 Telemedicine Gastroenterology Syl Cohen DO [address] [place] [address] Scheduled Procedures Name Priority Associated Diagnoses Date/Ti me COLONOSCOPY FLEXIBLE PROXIMAL DIAGNOSTIC Recall History of colon polyps Health Maintenance Due Date Last Done Comments Zoster Vaccines (1 of 2) 01/03/1975 DIABETES-EYE EXAM 11/25/2019 11/24/2018 COVID-19 Vaccine (4 - Pfizer risk series) 07/03/2021 05/08/2021, 08/29/2020, 08/08/2020 DIABETES-FOOT EXAM 01/10/2022 01/10/2021, 1 , 05/19/2018 Albumin/Creatinine Ratio 12/04/2022 022, 08/15/2020, 08/20/2018 Influenza Vaccine (FLU shot) (#1) 2023 06/18/2022, 05/29/2021, 04/27/2020, Additional history exists HbA1c 06/12/2023 12/10/2022, 05/06, 12/04/2021, Additional history exists Depression Screening, Annual for Pts 12 and Over 06/19/2023 06/19/2022 TSH 12/11/2023 12/10/2022, 0509/2021, 08/31/2020, Additional history exists GFR 03/11/2024 03/11/2023, [...] Completed 07/06/2022, 05/25/2019, 12/25/2017, Additional history exists GARDASIL-HPV IMMUNIZATION SERIES Aged [...] the patient have Health Care Power of Circuit Court Magistrate? No Code Status History Code Status Date Activated Date Inactivated Comments Full Code 06/15/2016 5:56 PM 08/09/2016 8:19 PM This order reflects the patients wishes and were consensually agreed upon. Question Answer Comments Discussion of Advance Directives occurred with: Patient Does the patient have a Living Will? No Does the patient have Health Care Power of Circuit Court Magistrate? No Full Code 05/15/2016 3:18 AM 06/08/2016 6:42 PM This order reflects the patients wishes and were consensually agreed upon. Question Answer Comments Discussion of Advance Directives occurred with: Not Discussed Care Teams Physical Therapy Coordinator Relationship Specialty Start Date End Date Joe Peng, [address] [place] [address] PCP - General Family Medicine 05/19/18 documented as of this encounter
--- OUTSIDE RECORDS SUMMARY | 2023-08-22 00:36 | External Medical Summary ---
Author Name Unknown Address Unknown Organization K09:[facility] [place] [address] Laboratory Report Ordering Provider Test Date Status APRYL MARINELLI 04/09/2023 12:06:33 Final Observation Date Value Abnormality Reference (Units ) Status Nucleated erythrocytes/100 leukocytes [Ratio] in Blood by Automated count 04/09/2023 12:06:33 Final Variant lymphocytes [Presence] in Blood by Light microscopy 04/09/2023 12:06:33 Present Abnormal None Seen Final Performing Location [facility] [place] [address]
--- OUTSIDE RECORDS SUMMARY | 2023-08-22 00:36 | External Medical Summary ---
Author Name Unknown Address Unknown Organization K09:[facility] [place] [address] Laboratory Report Ordering Provider Test Date Status APRYL MARINELLI 04/09/2023 12:06:33 Final Observation Date Value Abnormality Reference (Units ) Status SYNC LEUKOCYTES IN BLOOD BY AUTOMATED COUNT 04/09/2023 12:06:33 3.51 Below low normal 4.00-10.80 (K/uL) Final Segs 04/09/2023 12:06:33 32.3 Below low normal 40.0-75.0 (%) Final Lymphs % 04/09/2023 12:06:33 46.7 Above high normal 18.0-42.0 (%) Final Monos 04/09/2023 12:06:33 10.5 1.0-11.0 (%) Final Eosinophils 04/09/2023 12:06:33 7.1 Above high normal 0.0-6.0 (%) Final Basos 04/09/2023 12:06:33 3.4 Above high normal 0.0-2.0 (%) Final Absolute Segs 04/09/2023 12:06:33 1.13 Below low normal 1.80-7.70 (K/uL) Final Lymphs, absolute 04/09/2023 12:06:33 1.64 1.00-4.80 (K/ul) Final Monos, Abs 04/09/2023 12:06:33 0.37 0.00-1.10 (K/uL) Final Eos, Abs 04/09/2023 12:06:33 0.25 0.00-0.70 (K/uL) Final Basos, Abs 04/09/2023 12:06:33 0.12 0.00-0.20 (K/uL) Final Performing Location [facility] [place] [address]
--- OUTSIDE RECORDS SUMMARY | 2023-08-22 00:36 | External Medical Summary | Summary of Care ---
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); Hypomagnesemia; [...] mRNA, LNP-s, No Pre serve, 2-Dose Series ([employer]) 05/08/2021,08/29/2020,08/08/2020 DTaP - Dipth/Tet/Acell Pertussis 12/25/2017,10/04,09/25/2017 IPV [...] Team Description 04/09/2023 Hem/Onc Treatment Hematology Oncology [place], Chair 9 Hem Onc Scenery [address] [place] [address] 04/10/2023 Hem/Onc Treatment Hematology Oncology 04/11/2023 Hem/Onc Treatment Hematology Oncology 04/12/2023 Hem/Onc Treatment Hematology Oncology [facility], Chair 6 Hem Onc Scenery [address] [place] [address] 04/22/2023 Office Visit Orthopedics Yovani Whitten MD [address] [place] [address] 06/03/2023 Laboratory Laboratory [facility] Lab Scenery [address] [place] [address] 06/03/2023 Office Visit Hematology Oncology Corbin Nielson MD [address] [place] [address] 06/11/2023 Office Visit Cardiology Miya Jerez CRNP [address] [place] [address] 06/18/2023 Telemedicine Gastroenterology Syl Cohen DO [address] [place] [address] 07/09/2023 Office Visit Family Medicine Rayna Solares PA-C [address] [place] [address] 11/06/2023 Office Visit Family Medicine Joe Peng DO [address] [place] [address] Pending Results Name Type Priority Associated Diagnoses [...] Lab STAT 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 No Code Status History Code Status Date Activated Date Inactivated Comments Full Code 06/15/2016 5:56 PM 08/09/2016 8:19 PM This order reflects the patients wishes and were consensually agreed upon. Question Answer Comments Discussion of Advance Directives occurred with: Patient Does the patient have a Living Will? No Does the patient have Health Care Power of Assault Amphibious Vehicle Officer? No Full Code 05/15/2016 3:18 AM 06/08/2016 6:42 PM This order reflects the patients wishes and were consensually agreed upon. Question Answer Comments Discussion of Advance Directives occurred with: Not Discussed Care Teams Emergency Generator Mechanic Relationship Specialty Start Date End Date Joe Peng, DO [address] [place] [address] PCP - General Family Medicine 05/19/18 documented as of this encounter
--- OUTSIDE RECORDS SUMMARY | 2023-08-22 00:36 | External Medical Summary ---
Author Name Unknown Address Unknown Organization K09:[facility] [place] [address] Laboratory Report Ordering Provider Test Date Status APRYL MARINELLI 04/09/2023 12:06:33 Final Observation Date Value Abnormality Reference (Units ) Status BUN 04/09/2023 12:06:33 9 6-20 (mg/dL) Final Creatinine 04/09/2023 12:06:33 0.8 0.5-1.0 (mg/dL) Final Glomerular filtration rate/1.73 sq M.predicted [Volume Rate/Area] in Serum, Plasma or Blood by Creatinine-based formula (CKD-EPI) 04/09/2023 12:06:33 80 >=60 (mL/min) Final eGFR is calculated based on the CKD-EPI 2020 equation SODIUM 04/09/2023 12:06:33 142 135-146 (m mol/L) Final Potassium 04/09/2023 12:06:33 4.1 3.5-5.1 (m mol/L) Final Cl 04/09/2023 12:06:33 107 98-107 (mm ol/L) Final CO2 04/09/2023 12:06:33 26 22-32 (mmo l/L) Final Anion gap 04/09/2023 12:06:33 9 7-15 (mmol /L) Final Glucose 04/09/2023 12:06:33 97 70-120 (mg /dL) Final Albumin 04/09/2023 12:06:33 3.2 Below low normal 3.8 -5.0 (g/dL) Final AST (Aspartate aminotransferase) 04/09/2023 12:06:33 25 10-35 (U/L) Fin al Alk Phos 04/09/2023 12:06:33 200 Above high normal 35 -130 (U/L) Final Bilirubin, Total 04/09/2023 12:06:33 0.3 <=1 .2 (mg/dL) Final Calcium 04/09/2023 12:06:33 9.1 8.4-10.2 ( mg/dL) Final Protein 04/09/2023 12:06:33 6.3 6.0-8.3 (g /dL) Final ALT (Alanine aminotransferase) 04/09/2023 12:06:33 19 10-35 (U/L) Dieudonne clemens Performing Location [facility] [address] [place] [address]
--- OUTSIDE RECORDS SUMMARY | 2023-08-22 00:37 | External Medical Summary | Summary of Care ---
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) Encounter for antineoplastic chemotherapy Procedures DC DECITABINE INJECTION Corbin Nielson MD [address] [place] [address] Anc Hem/Onc Scenery Patti [address] [facility] [place] [address] Referral ID Status Reason Start Date Expiration Date V isits Requested Visits Authorized [id number] Authorized 07/05/2021 08/04/2099 99 99 Encounter Details Date Type Department Care Team Description 03/14/2023 Hem/Onc Treatment Hematology/Oncology Treatment, [place] [address] [place] [address] Patti, Chair 7 Hem Onc Scenery [address] [facility] [place] [address] 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)*; Encounter for antineoplastic chemotherapy; Acute myeloid leukemia not having achieved remission (HCC) Allergies Active Allergy Reactions Severity Noted Date Comments Amoxicillin Nausea/vomiting 11/14/2015 Penicillins Nausea/vomiting Low 08/12/2007 tolerated cephalosporins in past Other reaction(s): Nausea Only Other reaction(s): "makes me nervous", Nausea documented as of this encounter (statuses as of 03/14/2023) Medications Medication Sig Dispensed Refills Start Date [...] CAPSULE DAILY 90 Capsule 1 3 Active documented as of this encounter (statuses as of 03/14/2023) Active Problems Problem Noted Date Hypotension 06/19/2022 [...] as of this encounter (statuses as of 03/14/2023) Resolved Problems Problem Noted Date Resolved Date [...] 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 0 02/12/2012 04/27/2015 Overview: ICD-10 update of inactive term Other disorder of menstruati on and other abnormal bleeding from female genital tract 09/16/2007 04/27/2015 Uterine leiomyoma 09/16/2007 04/27/2015 documented as of this encounter (statuses as of 03/14/2023) Immunizations Name Administration Dates Next Due COVID-19 mRNA, LNP-s, No Pre serve, 2-Dose Series ([employer]) 05/08/2021,08/29/2020,08/08/2020 DTaP - Dipth/Tet/Acell Pertussis 12/25/2017,10/04,09/25/2017 IPV - Polio Virus Vaccine (Inact) 12/25/2017,,09/30/2017 MMR - Measles/Mumps/Rubella Vaccine 09/30/2017 Pneumococcal Conjugate Vacc, 13 Valent (Prevnar) 05/25/2019,12/25/2017,10/30/2017,09/25 Pneumococcal Polysaccharide PPV23 (Pneumovax) 07/06/2022 Seasonal Influenza, Quadriva lent Hd (Fluzone Hd) 06/18/2022 Seasonal Influenza, Quadriva lent Hd, 65+ Yrs 05/29/2021 Seasonal Influenza, Quadriva lent, No Preserve, 6 Mons & Above, IM 04/27/2020,05/25/2019,05/19/2018 Seasonal Influenza, Quadriva lent, No Preserve, IM [...] Sign Reading Time Taken Comments Blood Pressure 122/72 03/14/2023 1:30 PM EDT Pulse 75 03/14/2023 1:30 PM EDT Temperature 36.6 C (97.8 F) 03/14/2023 1:30 PM ED T Respiratory Rate 20 03/14/2023 1:30 PM EDT Oxygen Saturation 98% 03/14/2023 1:30 PM EDT Inhaled Oxygen Concentration - - [...] Nursing Notes * Melissa Lynn RN - 03/14/2023 2:52 PM EDT Dacogen infusion is complete. Pt [...] from injury Pt discharged in stable condition, spouse arrived to accompany pt * Melissa Lynn RN - 03/14/2023 2:14 PM EDT Ch 6. Pt arrived today for Dacogen infusion. She did not have labs for today. Pt reports she had some severe L leg pains today, so bad that she called her PCP to make an appt to discuss. She states Tylenol helped some, but she states that these leg pains started about 3 yrs ago, but are getting more and more frequent and intense/painful. Pt denies N/V/D. Pt denies neuropathy. She denies new concerns since infusion yesterday. Chemo agents Dacogen Appetite good Nausea/Vomiting denies Diarrhea denies Constipation denies Mucositis denies Fatigue tires easily Bleeding denies Infection denies Rash denies Numbness tingling denies Pain leg pains in L leg Radiation no ABN Labs none today Alt in Tx: no Return in 4 wk documented in this encounter Plan of Treatment Upcoming Encounters Date Type Specialty Care Team Description 03/15/2023 Office Visit Internal Medicine Lilliana Kirkland MD [address] [place] [address] 03/20/2023 Imaging Radiology 03/20/2023 Imaging Radiology 04/03/2023 Office Visit Cardiology Benjamin Bonilla MD [address] [place] [address] 04/09/2023 Office Visit Family Medicine Joe ePng, [address] [place] [address] 04/09/2023 Laboratory Laboratory [place], Lab Scenery [address] [place] [address] 04/09/2023 Hem/Onc Treatment Hematology Oncology [place], Chair 6 Hem Onc Scenery [address] [place] [address] 04/10/2023 Hem/Onc Treatment Hematology Oncology 04/11/2023 Hem/Onc Treatment Hematology Oncology 04/12/2023 Hem/Onc Treatment Hematology Oncology [place], Chair 6 Hem Onc Scenery [address] [place] [address] 06/03/2023 Laboratory Laboratory [place], Lab Scenery [address] [place] [address] 06/03/2023 Office Visit Hematology Oncology Corbin Nielson MD 200 [facility] [place] [address] 06/18/2023 Telemedicine Gastroenterology Syl Cohen, DO [address] [place] [address] Scheduled Procedures Name Priority Associated Diagnoses Date/Ti [...] 12/10/2022, 0509/2021, 08/31/2020, Additional history exists Mammogram 02/23/2024 02/22/2023, 02/03, 02/15/2021, Additional history exists GFR 03/11/2024 03/11/2023, 02/02, 01/07/2023, Additional history exists COLONOSCOPY-EVERY 3 YRS AGES 18-100 05/24/2025 05/24/2022, 05/24/2022, 05/18/2019, Additional history exists Lipid Panel 04/17/2026 04/17/2021, 08/05, 05/18/2015, Additional history exists DTaP,Tdap,and Td Vaccines (7 - Td or Tdap) 12/26/2027 12/25/2017, 10/30/2017, 09/30/2017, Additional history exists DXA Scan 01/23/2030 01/23/2023, 11/04/2018 Pap Smear Discontinued 08/13/2019, 08/08/2013, 04/29/2009, Additional history exists Pneumococcal Vaccine: 65+ Years [...] Diagnoses Diagnosis 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)- Primary Acute myeloid leukemia, in relapse Encounter for antineoplastic chemotherapy Acute myeloid leukemia not having achieved remission (HCC) documented in this encounter Administered Medications Active Administered Medications - up to 3 most recent administrations Medication Order MAR Action Action Date Dose Rate Site diphenhydrAMINE (Benadryl) inj 50 mg 50 mg, IV Push, ONCE PRN Other, Hypersensitivity Reaction, Starting on Verena 03/14/23 at 1350, Until Sat03/15/23 at 1349, For 24 hours EPINEPHrine 1 MG/ML inj 0.3 mg 0.3 mg, Intramuscular, ONCE PRN Other, Hypersensitivity Reaction or Anaphylaxis, Starting on Verena 03/14/23 at 1350, Until Sat03/15/23 at 1349, For 24 hours hEParin 100 UNIT/ML Lock Flush inj 500 Units 500 Units (5 mL), IV Lock, PRN Other, IV Flush, Starting on Verena 03/14/23 at 1350, Until Sat03/15/23 at 1349, For 24 hours, Do not flush if lock, PICC, or central line not in place; IV infusing or unable to flush. Given 03/14/2023 2:47 PM EDT 500 Units Hydrocortisone Sod Suc (PF) (Solu-Cortef) inj 100 mg 100 mg, IV Push, ONCE PRN Other, Hypersensitivity Reaction, Starting on Sat03/14/23 at 1350, Until Sat03/15/23 at 1349, For 24 hours NSS infusion 500 mL, Intravenous, at 50 mL/hr, CONTINUOUS, Starting on Verena 03/14/23 at 1500, Until Sat03/15/23 at 0059 Start Infusion 03/14/2023 1:45 PM EDT 500 mL 50 mL/hr sodium chloride 0.9 % flush central line 10 mL 10 mL, IV Push, PRN Other, IV Flush, Starting on Verena 03/14/23 at 1350, Until Sat03/15/23 at 1349, For 24 hours, Do not flush if lock, PICC, or central line not in place; IV infusing or unable to flush. Given 03/14/2023 2:47 PM EDT 10 mL Inactive Administered Medications - up to 3 most recent administrations Medication Order MAR Action Action Date Dose Rate Site Decitabine (Dacogen) 25.6 mg in NSS 100 mL infusion 25.6 mg (16 mg/m2 1.6 m2 Order-specific BSA), IV Piggyback, ONCE, 1 dose, On Sat03/14/23 at 1530, Administer over 60 Minutes, CAUTION: CHEMOTHERAPY HANDLE WITH GLOVES ! Start Infusion 03/14/2023 1:50 PM EDT 25.6 mg 100 mL/hr documented [...] the patient have Health Care Power of Profile Shaper Operator? No Code Status History Code Status Date Activated Date Inactivated Comments Full Code 06/15/2016 5:56 PM 08/09/2016 8:19 PM This order reflects the patients wishes and were consensually agreed upon. Question Answer Comments Discussion of Advance Directives occurred with: Patient Does the patient have a Living Will? No Does the patient have Health Care Power of Profile Shaper Operator? No Full Code 05/15/2016 3:18 AM 06/08/2016 6:42 PM This order reflects the patients wishes and were consensually agreed upon. Question Answer Comments Discussion of Advance Directives occurred with: Not Discussed Care Teams Master Control Engineer Relationship Specialty Start Date End Date Joe Peng, DO [address] [facility] [place] [address] PCP - General Family Medicine 05/19/18 documented as of this encounter
--- OUTSIDE RECORDS SUMMARY | 2023-08-22 00:37 | External Medical Summary | Summary of Care ---
Author Name Unknown Organization [facility] Address [address] [place] [address] Phone [phone] Care Team Providers Care Hot Dip Tinning Supervisor Name Role Phone Joe Peng DO Primary Care Provider [phone] Encounter Details Date Type Department Care Team Description 03/22/2023 Patient Reported Data Patient Survey Ortho [facility] Allergies Active Allergy Reactions Severity Noted Date Comments Amoxicillin Nausea/vomiting 11/14/2015 Penicillins Nausea/vomiting Low 08/12/2007 tolerated cephalosporins in past Other reaction(s): Nausea Only Other reaction(s): "makes me nervous", Nausea documented as of this encounter (statuses as of 03/22/2023) Medications Medication Sig Dispensed Refills Start Date [...] as of this encounter (statuses as of 03/22/2023) Active Problems Problem Noted Date Hypotension 06/19/2022 [...] as of this encounter (statuses as of 03/22/2023) Resolved Problems Problem Noted Date Resolved Date [...] as of this encounter (statuses as of 03/22/2023) Immunizations Name Administration Dates Next Due COVID-19 mRNA, LNP-s, No Pre serve, 2-Dose Series ([employer]) 05/08/2021,08/29/2020,08/08/2020 DTaP - Dipth/Tet/Acell Pertussis 12/25/2017,10/04,09/25/2017 IPV [...] Description 04/09/2023 Office Visit Family Medicine Joe Peng, [address] [place] [address] 04/09/2023 Laboratory Laboratory Celso Armstrong [address] [place] [address] 04/09/2023 Hem/Onc Treatment Hematology Oncology [place], Chair 1 Hem Onc Scenery [address] [place] [address] 04/10/2023 Hem/Onc Treatment Hematology Oncology 04/11/2023 Hem/Onc Treatment Hematology Oncology 04/12/2023 Hem/Onc Treatment Hematology Oncology [place], Chair 6 Hem Onc Scenery [address] [place] [address] 04/22/2023 Office Visit Orthopedics Yovani Whitten MD [address] [place] [address] 06/03/2023 Laboratory Laboratory [place], Lab Scenery [address] [place] [address] 06/03/2023 Office Visit Hematology Oncology Corbin Nielson MD [address] [place] [address] 06/11/2023 Office Visit Cardiology Miya Jerez CRNP [address] [place] [address] 06/18/2023 Telemedicine Gastroenterology Syl Cohen DO [address] [place] [address] Scheduled Procedures Name Priority Associated Diagnoses Date/Ti [...] 11/04/2018 Pap Smear Discontinued 08/13/2019, 08/0 08/2013, 04/29/2009, Additional history exists Pneumococcal Vaccine: 65+ [...] the patient have Health Care Power of Drain Tiler? No Code Status History Code Status Date Activated Date Inactivated Comments Full Code 06/15/2016 5:56 PM 08/09/2016 8:19 PM This order reflects the patients wishes and were consensually agreed upon. Question Answer Comments Discussion of Advance Directives occurred with: Patient Does the patient have a Living Will? No Does the patient have Health Care Power of Drain Tiler? No Full Code 05/15/2016 3:18 AM 06/08/2016 6:42 PM This order reflects the patients wishes and were consensually agreed upon. Question Answer Comments Discussion of Advance Directives occurred with: Not Discussed Care Teams Hot Dip Tinning Supervisor Relationship Specialty Start Date End Date Joe Peng, [address] [place] [address] PCP - General Family Medicine 05/19/18 documented as of this encounter
--- OUTSIDE RECORDS SUMMARY | 2023-08-22 00:37 | External Medical Summary | Summary of Care ---
Author Name Unknown Organization [facility] Address [address] [place] [address] Phone [phone] Care Team Providers Care Pcat Instructor Name Role Phone Joe Peng DO Primary Care Provider [phone] Encounter Details Date Type Department Care Team [...] mRNA, LNP-s, No Pre serve, 2-Dose Series (Lites[employer]) 05/08/2021,08/29/2020,08/08/2020 DTaP - Dipth/Tet/Acell Pertussis 12/25/2017,10/04,09/25/2017 IPV [...] Medicine Joe Peng, [address] [place] [address] 04/09/2023 Laboratory Laboratory Celso Armstrong [address] [place] [address] 04/09/2023 Hem/Onc Treatment Hematology Oncology [place], Chair 1 Hem Onc Scenery [address] [place] [address] 04/10/2023 Hem/Onc Treatment Hematology Oncology 04/11/2023 Hem/Onc Treatment Hematology Oncology 04/12/2023 Hem/Onc Treatment Hematology Oncology [place], Chair 6 Hem Onc Scenery [address] [place] [address] 04/22/2023 Office Visit Orthopedics Yovani Whitten MD [address] [place] [address] 06/03/2023 Laboratory Laboratory Patti, Lab Scenery [address] [place] [address] 06/03/2023 Office Visit Hematology Oncology Corbin Nielson MD [address] [place] [address] 06/11/2023 Office Visit Cardiology Miya Jerez CRNP [address] [place] [address] 06/18/2023 Telemedicine Gastroenterology Syl Cohen DO [address] [place] [address] Scheduled Procedures Name Priority Associated Diagnoses Date/Ti [...] the patient have Health Care Power of Radiology Specialist? No Code Status History Code Status Date Activated Date Inactivated Comments Full Code 06/15/2016 5:56 PM 08/09/2016 8:19 PM This order reflects the patients wishes and were consensually agreed upon. Question Answer Comments Discussion of Advance Directives occurred with: Patient Does the patient have a Living Will? No Does the patient have Health Care Power of Radiology Specialist? No Full Code 05/15/2016 3:18 AM 06/08/2016 6:42 PM This order reflects the patients wishes and were consensually agreed upon. Question Answer Comments Discussion of Advance Directives occurred with: Not Discussed Care Teams Pcat Instructor Relationship Specialty Start Date End Date Joe Peng, [address] [place] [address] PCP - General Family Medicine 05/19/18 documented as of this encounter
--- OUTSIDE RECORDS SUMMARY | 2023-08-22 00:37 | External Medical Summary | Summary of Care ---
Author Name Unknown Organization [facility] Address [address] [place] [address] Phone [phone] Care Team Providers Care Hog Tender Name Role Phone Joe Peng DO Primary Care Provider [phone] Reason for Visit * Reason Onset Date Comments Test Results 03/21/2023 Encounter Details Date Type Department Care Team Description 03/21/2023 Telephone Family Practice [facility] [address] [place] [address] Joe Peng DO [address] [facility] [place] [address] Test Results Allergies Active Allergy Reactions Severity Noted Date Comments Amoxicillin Nausea/vomiting 11/14/2015 Penicillins Nausea/vomiting Low 08/12/2007 tolerated cephalosporins in past Other reaction(s): Nausea Only Other reaction(s): "makes me nervous", Nausea documented as of this encounter (statuses as of 03/21/2023) Medications Medication Sig Dispensed Refills Start Date [...] day as needed (pain). 1 g 0 08/11/202 3 Active documented as of this encounter (statuses as of 03/21/2023) Active Problems Problem Noted Date Hypotension 06/19/2022 [...] as of this encounter (statuses as of 03/21/2023) Resolved Problems Problem Noted Date Resolved Date [...] as of this encounter (statuses as of 03/21/2023) Immunizations Name Administration Dates Next Due COVID-19 mRNA, LNP-s, No Pre serve, 2-Dose Series ([employer]) 05/08/2021,08/29/2020,08/08/2020 DTaP - Dipth/Tet/Acell Pertussis 12/25/2017,10/04,09/25/2017 [...] encounter Miscellaneous Notes * Telephone Encounter - Kushal Winn CMA - 03/21/2023 4:01 PM EDT Patient aware and verbalized understanding Is already scheduled with Ortho * Telephone Encounter - Kushal Winn CMA - 03/21/2023 3:59 PM EDT ----- Message from Lilliana Kirkland MD sent at 03/21/2023 2:37 PM EDT ----- X-ray left Severe arthritis of the left hip, questionable avascular necrosis right femoral head.(Sxpain left hip) -Urgent Referral to ortho for evaluation X-ray lumbar spine-worsening degenerative changes compared to 2020 with multilevel small joint arthritis. Plan of care, as discussed at recent appointment. documented in this encounter Plan of Treatment Upcoming Encounters Date Type Specialty Care Team Description 04/09/2023 Office Visit Family Medicine Joe Peng, DO [address] [place] [address] 04/09/2023 Laboratory Laboratory Patti, Lab Scenery [address] [facility] [place] [address] 04/09/2023 Hem/Onc Treatment Hematology Oncology Patti, Chair 1 Hem Onc Scenery [address] [place] [address] 04/10/2023 Hem/Onc Treatment Hematology Oncology 04/11/2023 Hem/Onc Treatment Hematology Oncology 04/12/2023 Hem/Onc Treatment Hematology Oncology Patti, Chair 6 Hem Onc Scenery [address] [place] [address] 04/22/2023 Office Visit Orthopedics Yovani Whitten MD [address] [facility] [place] [address] 06/03/2023 Laboratory Laboratory [place], Lab Scenery [address] [place] [address] 06/03/2023 Office Visit Hematology Oncology Corbin Nielson MD [address] [place] [address] 06/11/2023 Office Visit Cardiology Miya Jerez CRNP [address] [place] [address] 06/18/2023 Telemedicine Gastroenterology Syl Cohen DO [address] [place] [address] Scheduled Procedures Name Priority Associated Diagnoses Date/Ti [...] the patient have Health Care Power of Grocery Stock Clerk? No Code Status History Code Status Date Activated Date Inactivated Comments Full Code 06/15/2016 5:56 PM 08/09/2016 8:19 PM This order reflects the patients wishes and were consensually agreed upon. Question Answer Comments Discussion of Advance Directives occurred with: Patient Does the patient have a Living Will? No Does the patient have Health Care Power of Grocery Stock Clerk? No Full Code 05/15/2016 3:18 AM 06/08/2016 6:42 PM This order reflects the patients wishes and were consensually agreed upon. Question Answer Comments Discussion of Advance Directives occurred with: Not Discussed Care Teams Hog Tender Relationship Specialty Start Date End Date Joe Peng, DO [address] [facility] [place] [address] PCP - General Family Medicine 05/19/18 documented as of this encounter
--- OUTSIDE RECORDS SUMMARY | 2023-08-22 00:37 | External Medical Summary | Summary of Care ---
Author Name Unknown Organization [facility] Address [address] [place] [address] Phone [phone] Care Team Providers Care Insurance Agency Owner Name Role Phone Joe Peng DO Primary Care Provider [phone] Reason for Visit * Reason Onset Date Comments Referral 03/21/2023 ortho Encounter Details Date Type Department Care Team Description 03/21/2023 Telephone Family Practice [facility] [address] [facility] [place] [address] Joe Peng DO 200 [facility] [place] [address] Referral (ortho) Allergies Active Allergy Reactions Severity Noted Date [...] 016 07/31/2017 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 encounter 02/12/2012 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 0 02/12/2012 04/27/2015 Overview: ICD-10 update of inactive term Other disorder of menstruati on and other abnormal bleeding from female genital tract 09/16/2007 04/27/2015 Uterine leiomyoma 09/16/2007 04/27/2015 documented as of this encounter (statuses as of 03/21/2023) Immunizations Name Administration Dates Next Due COVID-19 mRNA, LNP-s, No Pre serve, 2-Dose Series ([place]) 05/08/2021,08/29/2020,08/08/2020 DTaP - Dipth/Tet/Acell Pertussis 12/25/2017,10/04,09/25/2017 IPV [...] Miscellaneous Notes * Telephone Encounter - JARON Burger - 03/21/2023 3:01 PM EDT Called pt, sched ortho appt @ 03/21 JAT documented in this encounter Plan of Treatment Upcoming Encounters Date Type Specialty Care Team Description 04/09/2023 Office Visit Family Medicine Joe Peng, [address] [place] [address] 04/09/2023 Laboratory Laboratory [facility]atti, Lab Scenery [address] [place] [address] 04/09/2023 Hem/Onc Treatment Hematology Oncology Patti, Chair 1 Hem Onc Scenery [address] [place] [address] 04/10/2023 Hem/Onc Treatment Hematology Oncology 04/11/2023 Hem/Onc Treatment Hematology Oncology 04/12/2023 Hem/Onc Treatment Hematology Oncology Patti, Chair 6 Hem Onc Scenery [address] [place] [address] 04/22/2023 Office Visit Orthopedics Yovani Whitten MD [address] [place] [address] 06/03/2023 Laboratory Laboratory [facility]atti Lab Scenery [address] [place] [address] 06/03/2023 Office Visit Hematology Oncology Corbin Nielson MD [address] [place] [address] 06/11/2023 Office Visit Cardiology Miya Jerez CRNP [address] [place] [address] 06/18/2023 Telemedicine Gastroenterology Syl Cohen, DO [address] [place] [address] Scheduled Procedures Name Priority Associated Diagnoses Date/Ti [...] and Over 06/19/2023 06/19/2022 TSH 12/11/2023 12/10/2022, 05/09/2021, 08/31/2020, Additional history exists GFR 03/11/2024 03/11/2023, [...] the patient have Health Care Power of Shrinking Machine Operator? No Code Status History Code Status Date Activated Date Inactivated Comments Full Code 06/15/2016 5:56 PM 08/09/2016 8:19 PM This order reflects the patients wishes and were consensually agreed upon. Question Answer Comments Discussion of Advance Directives occurred with: Patient Does the patient have a Living Will? No Does the patient have Health Care Power of Shrinking Machine Operator? No Full Code 05/15/2016 3:18 AM 06/08/2016 6:42 PM This order reflects the patients wishes and were consensually agreed upon. Question Answer Comments Discussion of Advance Directives occurred with: Not Discussed Care Teams Insurance Agency Owner Relationship Specialty Start Date End Date Joe Peng, DO [address] [place] [address] PCP - General Family Medicine 05/19/18 documented as of this encounter
--- OUTSIDE RECORDS SUMMARY | 2023-08-22 00:37 | External Medical Summary | Summary of Care ---
Author Name Unknown Organization [facility] Address [address] [place] [address] Phone [phone] Care Team Providers Care Bridge Repairer Name Role Phone Joe Peng DO Primary Care Provider [phone] Reason for Visit * Reason Comments Acute The pt stated she is having severe pains in her legs that is radiating from the hip for approx a few months. Pt stated the pain is causing her mobility issues and difficulty sleeping. 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 1 g 0 Active documented as of this encounter (statuses as of 03/15/2023) Active Problems Problem Noted Date Hypotension 06/19/2022 [...] as of this encounter (statuses as of 03/15/2023) Resolved Problems Problem Noted Date Resolved Date [...] as of this encounter (statuses as of 03/15/2023) Immunizations Name Administration Dates Next Due COVID-19 [...] Reading Time Taken Comments Blood Pressure 90/62 03/15/2023 10:26 AM EDT Pulse 77 03/15/2023 10:26 AM EDT Temperature 36.5 C (97.7 F) 03/15/2023 10:26 AM E DT Respiratory Rate - - Oxygen Saturation 100% 03/15/2023 10:26 AM EDT Inhaled Oxygen Concentration - - Weight 50.4 kg (111 lb 3.4 oz) 03/15/2023 10:26 AM EDT Height 168.9 cm (5' 6.5") 03/15/2023 10:26 AM ED T Body Mass Index 17.68 03/15/2023 10:26 AM EDT documented in this encounter Functional [...] as of this encounter Progress Notes * Lilliana Kirkland MD - 03/15/2023 10:33 AM EDT SUBJECTIVE: Codi Soto is a 68 year old female. Chief Complaint Patient presents with Acute The pt stated she is having severe pains in her legs that is radiating from the hip for approx a few months. Pt stated the pain is causing her mobility issues and difficulty sleeping. HPI: Patient presents today accompanied by her son with symptoms of pain in her left leg for few months , worse started yesterday morning. Pain is located in groin and on the lateral aspect which radiating down to the knee. Denies any injuries or falls. Has been taking Tylenol without much relief. It is affecting her sleep. No change in symptoms with a she lays on her left or right side or on herback. 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 EXAM XR L SPINE COMPLETE,01/11/2021 1:31 pm HISTORY 66 y/o withlow back pain radiating to her L leg COMPARISON CT ABDOMEN /PELVIS WITHOUT IV CONTRAST-IOF dated 03/31/2017 TECHNIQUE A total of 5 radiographs of the lumbar spine were obtained FINDINGS Mild, age indeterminate superior endplate compression fracture involving the L3 vertebral body. AP alignment is normal. Multilevel degenerative disc disease, most pronounced at L1-L2 and L4-L5 with disc space narrowing, subchondral sclerosis and marginal osteophyte formation. Facet arthropathy alsonoted. Calcified uterine fibroids and mild levoscoliosis. IMPRESSION IMPRESSION 1. Mild, age indeterminate superior endplate compression fracture involving the L3 vertebral body. 2. Degenerative changes as above, most pronounced at L1-L2 and L4-L5. 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[facility]) Z94.81 Amputated great toe of left foot ([facility]) S98.112A Iatrogenic diabetes mellitus ([facility]) E13.9 Diet-controlled diabetes mellitus ([facility]) E11.9 Major depressive disorder, single episode, moderate ([facility]) F32.1 Dehydration E86.0 Amputated great toe of left foot ([facility]) S98.112A Chronic myeloid leukemia, BCR/ABL-positive, not having achieved remission ([facility]) C92.10 Chronic leukemia of unspecified cell type not having achieved remission ([facility]) C95.10 RASTA (generalized anxiety disorder) F41.1 Gastroesophageal reflux disease without esophagitis K21.9 Neutropenia ([facility]) D70.9 Acquired absence of left great toe ([facility]) Z89.412 Chemotherapy-induced neutropenia ([facility]) D70.1, 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 Magnesium 400 MG TABS Take 2 tabs twice daily 360 Tab 1 buPROPion HCl ER (XL) 150 MG Oral Tablet Extended Release 24 Hour (Wellbutrin XL) Take 1 Tabletby mouth in the morning. buPROPion HCl ER (XL) 300 MG Oral Tablet Extended Release 24 Hour (Wellbutrin XL) Take 1 Tabletby mouth in the morning. busPIRone HCl 5 MG Oral Tablet (Buspar) Takes 2 tabs in the morning, 1 at noon, 2 tabs with dinner 150 Tablet 0 Potassium Chloride ER 20 MEQ Oral Tablet Extended Release Take 1 Tablet by mouth in the morning. 90 Tablet 1 Prochlorperazine Maleate 10 MG Oral Tablet [...] as needed for Anxiety. 30 Tablet 3 Cyanocobalamin 1000 MCG Oral Tablet (Cyanocobalamin) Take [...] Breakthrough. Pt stated she took some old hydrocodone-acetaminophen to assist with her pain Acetaminophen 500 MG Oral Tablet (Tylenol) Take 1 Tablet by mouth every 6 hours as needed. No current facility-administered medications for this visit. Review of patient's allergies indicates: Allergen Reactions Amoxicillin Nausea/vomiting Penicillins Nausea/vomiting tolerated cephalosporins in past Other reaction(s): Nausea Only Other reaction(s): "makes me nervous", Nausea OBJECTIVE: BP 90/62 | Pulse 77 | Temp 36.5 C (97.7 F) | Ht 1.689 m (5' 6.5") | Wt 50.4 kg (111 lb 3.4 oz) | LMP 03/20/2009 | SpO2 100% | BMI 17.68 kg/m | BSA 1.54 m PHYSICAL EXAM: General: alert, healthy, no distress, well nourished and well developed Heart: regular rate & rhythm, no gallops /murmurs. Lungs: lungs clear to auscultation Extremities: no edema Back: no CVA/spine/SI joint tenderness. No paraspinous tenderness, no paraspinous spasm Neuro: alert, gait normal ,motor normal, gross sensation normal,reflexes normal and symmetric, SLR neg sangita. Ext-min dec abduction left hip, no TTP gr trochanter Sl dec flexion left knee. ASSESSMENT/PLAN: Hip pain, left (Primary) - XR HIP UNILAT 2-3 VIEWS INCLUDING AP PELVIS; Future; Expected date: 03/15/2023 - Diclofenac Sodium 1 % External Gel (Voltaren); Apply topically to affected area 3 times a day as needed (pain). - XR L SPINE AP AND LATERAL; Future; Expected date: 03/15/2023 Lumbar degenerative disc disease - Diclofenac Sodium 1 % External Gel (Voltaren); Apply topically to affected area 3 times a day as needed (pain). - XR L SPINE AP AND LATERAL; Future; Expected date: 03/15/2023 tylenol 500 mg 1-2 tabs every 8-12 hr,, trial voltaren gel. 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 | Check-out note: Xray today (This note was completed using the dictation program Fluency Direct. As such, there may be misspellings, word substitutions, or other variations that should not change the essence of the clinical content of this encounter note. If there is need for further clarification, please direct questions to the provider listed above.) Patient and / caregiver verbalize understanding of above instructions and agrees with plan of care. Lilliana Kirkland MD 03/15/2023 documented in this encounter Nursing Notes * Nikos Ortiz LPN - 03/15/2023 10:25 AM EDT Chief Complaint Patient presents with Acute The pt stated she is having severe pains in her legs that is radiating from the hip for approx a few months. Pt stated the pain is causing her mobility issues and difficulty sleeping. documented in this encounter Plan of Treatment Upcoming Encounters Date Type Specialty Care Team Description 03/20/2023 Imaging Radiology 03/20/2023 Imaging Radiology 04/03/2023 Office Visit Cardiology Benjamin Bonilla MD [address] [place] [address] 04/09/2023 Office Visit Family Medicine Joe Peng DO [address] [place] [address] 04/09/2023 Laboratory Laboratory [place], Lab Scenery [address] [place] [address] 04/09/2023 Hem/Onc Treatment Hematology Oncology Dulce, Chair 6 Hem Onc Scenery [address] [place] [address] 04/10/2023 Hem/Onc Treatment Hematology Oncology 04/11/2023 Hem/Onc Treatment Hematology Oncology 04/12/2023 Hem/Onc Treatment Hematology Oncology [place], Chair 6 Hem Onc Scenery [address] [place] [address] 06/03/2023 Laboratory Laboratory [place], Lab Scenery [address] [place] [address] 06/03/2023 Office Visit Hematology Oncology Corbin Nielson MD [address] [place] [address] 06/18/2023 Telemedicine Gastroenterology Syl Cohen DO [address] [place] [address] Pending Results Name Type Priority Associated Diagnoses Date /Time XR HIP UNILAT 2-3 VIEWS INCLUDING AP PELVIS Medical Imaging Routine Hip pain, left 03/15/2023 11:51 AM EDT XR L SPINE AP AND LATERAL Medical Imaging Routine Hip pain, left Lumbar degenerative disc disease 03/15/2023 11:51 AM EDT Scheduled Orders Name Type Priority Associated Diagnoses Orde r Schedule XR HIP UNILAT 2-3 VIEWS INCLUDING AP PELVIS Medical Imaging Routine Hip pain, left Expected: 03/15/2023, Expires: 04/15/2024 XR L SPINE AP AND LATERAL Medical Imaging Routine Hip pain, left Lumbar degenerative disc disease Expected: 03/15/2023, Expires: 04/15/2024 Scheduled Procedures Name Priority Associated Diagnoses Date/Ti [...] 12/10/2022, 09/2021, 08/31/2020, Additional history exists Mammogram 02/23/2024 02/22/2023, [...] as of this encounter Visit Diagnoses Diagnosis Hip pain, left- Primary Pain in joint, pelvic region and thigh Lumbar degenerative disc disease Degeneration of lumbar or lumbosacral intervertebral disc Hepatitis, autoimmune (HCC) Autoimmune hepatitis 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 No Code Status History Code Status Date Activated Date Inactivated Comments Full Code 06/15/2016 5:56 PM 08/09/2016 8:19 PM This order reflects the patients wishes and were consensually agreed upon. Question Answer Comments Discussion of Advance Directives occurred with: Patient Does the patient have a Living Will? No Does the patient have Health Care Power of Home Care Liaison? No Full Code 05/15/2016 3:18 AM 06/08/2016 6:42 PM This order reflects the patients wishes and were consensually agreed upon. Question Answer Comments Discussion of Advance Directives occurred with: Not Discussed Care Teams Bridge Repairer Relationship Specialty Start Date End Date Joe Peng, DO [address] [facility] [place] [address] PCP - General Family Medicine 05/19/18 documented as of this encounter
--- OUTSIDE RECORDS SUMMARY | 2023-08-22 00:37 | External Medical Summary | Summary of Care ---
Author Name Unknown Organization [facility] Address [address] [place] [address] Phone [phone] Care Team Providers Care Manager Beverage Name Role Phone Joe Peng DO Primary Care Provider [phone] Encounter Details Date Type Department Care Team [...] mRNA, LNP-s, No Pre serve, 2-Dose Series ([facility]) 05/08/2021,08/29/2020,08/08/2020 DTaP - Dipth/Tet/Acell Pertussis 12/25/2017,10/04,09/25/2017 IPV [...] Medicine Joe Peng, [address] [place] [address] 04/09/2023 Laboratory Laboratory Celso Armstrong [address] [place] [address] 04/09/2023 Hem/Onc Treatment Hematology Oncology [place], Chair 1 Hem Onc Scenery [address] [place] [address] 04/10/2023 Hem/Onc Treatment Hematology Oncology 04/11/2023 Hem/Onc Treatment Hematology Oncology 04/12/2023 Hem/Onc Treatment Hematology Oncology [place], Chair 6 Hem Onc Scenery [address] [place] [address] 04/22/2023 Office Visit Orthopedics Yovani Whitten MD [address] [place] [address] 06/03/2023 Laboratory Laboratory [facility]atti, Lab Scenery [address] [place] [address] 06/03/2023 Office Visit Hematology Oncology Corbin Nielson MD [address] [place] [address] 06/11/2023 Office Visit Cardiology Miya Jerez CRNP [address] [place] [address] 06/18/2023 Telemedicine Gastroenterology Sly Cohen DO [address] [place] [address] Scheduled Procedures Name Priority Associated Diagnoses Date/Ti [...] the patient have Health Care Power of Efficiency Miner Blasting? No Code Status History Code Status Date Activated Date Inactivated Comments Full Code 06/15/2016 5:56 PM 08/09/2016 8:19 PM This order reflects the patients wishes and were consensually agreed upon. Question Answer Comments Discussion of Advance Directives occurred with: Patient Does the patient have a Living Will? No Does the patient have Health Care Power of Efficiency Miner Blasting? No Full Code 05/15/2016 3:18 AM 06/08/2016 6:42 PM This order reflects the patients wishes and were consensually agreed upon. Question Answer Comments Discussion of Advance Directives occurred with: Not Discussed Care Teams Manager Beverage Relationship Specialty Start Date End Date Joe Peng, [address] [place] [address] PCP - General Family Medicine 05/19/18 documented as of this encounter
--- OUTSIDE RECORDS SUMMARY | 2023-08-22 00:37 | External Medical Summary | Summary of Care ---
Author Name Unknown Organization [facility] Address [address] [place] [address] Phone [phone] Care Team Providers Care Glove Sewer Name Role Phone Joe Peng DO Primary Care Provider [phone] Encounter Details Date Type Department Care Team [...] mRNA, LNP-s, No Pre serve, 2-Dose Series ([facility]) 05/08/2021,08/29/2020,08/08/2020 DTaP - Dipth/Tet/Acell Pertussis 12/25/2017,10/04,09/25/2017 IPV [...] Medicine Joe Peng, [address] [place] [address] 04/09/2023 Laboratory Laboratory Celso Armstrong [address] [place] [address] 04/09/2023 Hem/Onc Treatment Hematology Oncology [place], Chair 1 Hem Onc Scenery [address] [place] [address] 04/10/2023 Hem/Onc Treatment Hematology Oncology 04/11/2023 Hem/Onc Treatment Hematology Oncology 04/12/2023 Hem/Onc Treatment Hematology Oncology [place], Chair 6 Hem Onc Scenery [address] [place] [address] 04/22/2023 Office Visit Orthopedics Yovani Whitten MD [address] [place] [address] 06/03/2023 Laboratory Laboratory [place], Lab Scenery [address] [place] [address] 06/03/2023 Office Visit Hematology Oncology Corbin Nielson MD [address] [place] [address] 06/11/2023 Office Visit Cardiology Miya Jerez CRNP [address] [place] [address] 06/18/2023 Telemedicine Gastroenterology Syl Cohen DO [address] [place] [address] Scheduled Procedures Name Priority Associated Diagnoses Date/Ti [...] the patient have Health Care Power of Inspector Screen Printing? No Code Status History Code Status Date Activated Date Inactivated Comments Full Code 06/15/2016 5:56 PM 08/09/2016 8:19 PM This order reflects the patients wishes and were consensually agreed upon. Question Answer Comments Discussion of Advance Directives occurred with: Patient Does the patient have a Living Will? No Does the patient have Health Care Power of Inspector Screen Printing? No Full Code 05/15/2016 3:18 AM 06/08/2016 6:42 PM This order reflects the patients wishes and were consensually agreed upon. Question Answer Comments Discussion of Advance Directives occurred with: Not Discussed Care Teams Glove Sewer Relationship Specialty Start Date End Date Joe Peng, [address] [place] [address] PCP - General Family Medicine 05/19/18 documented as of this encounter
--- OUTSIDE RECORDS SUMMARY | 2023-08-22 00:37 | External Medical Summary | Summary of Care ---
Author Name Unknown Organization [facility] Address [address] [place] [address] Phone [phone] Care Team Providers Care Cow Washer Name Role Phone Joe Peng DO Primary Care Provider [phone] Reason for Referral * Evaluate & Treat - Unlimited Visits (Within 10 days (routine)) - Authorized Specialty Diagnoses / Procedures Referred By Contac t Referred To Contact Orthopaedic Surgery / Orthopedics Diagnoses Arthritis of left hip Abnormal x-ray of pelvis Deja Kirkland MD [address] [place] [address] Referral ID Status Reason Start Date Expiration Date Visits Requested Visits Authorized [id number] Authorized Specialty Services Required 03/21/[phone] Question Answer Referral Priority Within 10 days (routine) What body part is the patient being seen for? Hip What condition is the patient being seen for? Arthritis including related infection Comments --see xray Reason for Visit * Reason Comments Acute The pt stated she is having severe pains in her legs that is radiating from the hip for approx a few months. Pt stated the pain is causing her mobility issues and difficulty sleeping. 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); Arthritis of left hip; Abnormal x-ray of pelvis Allergies Active Allergy Reactions Severity Noted Date [...] 016 07/31/2017 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 encounter 02/12/2012 04/27/2015 USP current use of anticoagulant therapy 0 02/12/2012 04/27/2015 Overview: ICD-10 update of inactive term Other disorder of menstruati on and other abnormal bleeding from female genital tract 09/16/2007 04/27/2015 Uterine leiomyoma 09/16/2007 04/27/2015 documented as of this encounter (statuses as of 03/21/2023) Immunizations Name Administration Dates Next Due COVID-19 mRNA, LNP-s, No Pre serve, 2-Dose Series ([facility]) 05/08/2021,08/29/2020,08/08/2020 DTaP - Dipth/Tet/Acell Pertussis 12/25/2017,10/04,09/25/2017 IPV [...] as of this encounter Progress Notes * Deja Kirkland MD - 03/15/2023 10:33 AM EDT [...] single episode, moderate (HCC) F32.1 Dehydration E86.0 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) S98.112A Chronic myeloid leukemia, BCR/ABL-positive, not having achieved remission ([facility]) C92.10 Chronic leukemia of unspecified cell type not having achieved remission ([facility]) C95.10 RASTA (generalized anxiety disorder) F41.1 Gastroesophageal reflux disease without esophagitis K21.9 Neutropenia ([facility]) D70.9 Acquired absence of left great toe ([facility]) Z89.412 Chemotherapy-induced neutropenia ([facility]) 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 Deja Kirkland MD 03/15/2023 documented in this encounter Nursing Notes * Nikos Ortiz LPN - 03/15/2023 10:25 AM EDT Chief Complaint Patient presents with Acute The pt stated she is having severe pains in her legs that is radiating from the hip for approx a few months. Pt stated the pain is causing her mobility issues and difficulty sleeping. documented in this encounter Miscellaneous Notes * Addendum Note - Deja Kirkland MD - 03/21/2023 2:37 PM EDTAddended by: DEJA KIRKLAND on: 03/21/2023 02:37 PM Modules accepted: Orders documented in this encounter Plan of Treatment Upcoming Encounters Date Type Specialty Care Team Description 04/09/2023 Office Visit Family Medicine Joe Peng, DO [address] [place] [address] 04/09/2023 Laboratory Laboratory [facility], Lab Scenery [address] [place] [address] 04/09/2023 Hem/Onc Treatment [facility] [place], Chair 1 Hem Onc Scenery [address] [place] [address] 04/10/2023 Hem/Onc Treatment Hematology Oncology 04/11/2023 Hem/Onc Treatment Hematology Oncology 04/12/2023 Hem/Onc Treatment H[facility]ology [facility] [place], Chair 6 Hem Onc Scenery [address] [place] [address] 06/03/2023 Laboratory Laboratory [facility], Lab Scenery [address] [place] [address] 06/03/2023 Office Visit Hematology Oncology Corbin Nielson MD [address] [place] [address] 06/11/2023 Office Visit Cardiology Miya Jerez CRNP [address] [place] [address] 06/18/2023 Telemedicine Gastroenterology Syl Cohen DO [address] [place] [address] Scheduled Procedures Name Priority Associated Diagnoses Date/Ti me COLONOSCOPY FLEXIBLE PROXIMAL DIAGNOSTIC Recall History of colon polyps Scheduled Referrals Name Type Priority Associated Diagnoses Order Schedule ORTHOPAEDICS REFERRAL OP Referral Within 10 days (routine) Arthritis of left hip Abnormal x-ray of pelvis Ordered: 03/21/2023 Health Maintenance Due Date Last Done Comments [...] Not on filedocumented as of this encounter Results * XR L SPINE AP AND LATERAL (03/15/2023 11:51 AM EDT) Anatomical Region Laterality Modality Vertebra, Lspine Digital Radiogr aphy 03/15/2023 11:4 9 AM EDT Impressions 03/21/2023 10:45 AM EDT IMPRESSION: 1. Worsening degenerative changes in the lumbar spine. 2. Prominent degenerative changes in the partially visualized hip joints, which appear worsened compared to prior exam. THIS DOCUMENT HAS BEEN ELECTRONICALLY SIGNED BY NELL YANES MD Narrative 03/21/2023 10:45 AM EDT PROCEDURE INFORMATION: Exam: XR Lumbosacral Spine Exam date and time: 03/15/2023 11:49 AM Age: 68 years old Clinical indication: Pain in left hip; Other intervertebral disc degeneration, lumbar region; Additional info: Same TECHNIQUE: Imaging protocol: Radiologic exam of the lumbosacral spine. Views: 2 or 3 views. COMPARISON: CR L-SPINE AP 01/11/2021 1:16 PM FINDINGS: Bones/joints: Prominent leftward curvature of the [...] Soft tissues: Calcified uterine fibroids again noted. Procedure Note Nell Yanes MD - 03/21/2023 PROCEDURE INFORMATION: Exam: XR Lumbosacral Spine Exam date and time: 03/15/2023 11:49 AM Age: 68 years old Clinical indication: Pain in left hip; Other intervertebral discdegeneration, lumbar region; Additional info: Same TECHNIQUE: Imaging protocol: Radiologic exam of the lumbosacral spine. Views: 2 or 3 views. COMPARISON: CR L-SPINE AP 01/11/2021 1:16 PM FINDINGS: Bones/joints: Prominent leftward curvature of the lumbar spine againnoted, worsened compared to prior exam. Multilevel leftward listhesis mostsignificant at L3 on L4 by approximately 14 mm The vertebral bodies maintain normalheight. Multilevel loss of intervertebral disc height with endplate degenerative changes. Multilevel facet arthropathy. Probable neural foraminal narrowingat L5-S1. Prominent degenerative changes in the partially visualized hipjoints, which appear worsened compared to prior exam. Soft tissues: Calcified uterine fibroids again noted. IMPRESSION IMPRESSION: 1. Worsening degenerative changes in the lumbar spine. 2. Prominent degenerative changes in the partially visualized hipjoints, which appear worsened compared to prior exam. THIS DOCUMENT HAS BEEN ELECTRONICALLY SIGNED BY NELL YANES MD Deja Kirkland MD RADIOLOGY ([facility]) * XR HIP UNILAT 2-3 VIEWS INCLUDING AP PELVIS (03/15/2023 11:51 AM EDT) Anatomical Region Laterality Modality Lower Extremity, Hip, Pelvis Dig ital Radiography 03/15/2023 11:5 0 AM EDT Impressions 03/21/2023 10:44 AM EDT IMPRESSION: 1. Severe degenerative changes of left hip . No definite displaced fracture. 2. Question avascular necrosis of right femoral head. 3. Degenerative changes. THIS DOCUMENT HAS BEEN ELECTRONICALLY SIGNED BY FABBY KANG MD Narrative 03/21/2023 10:44 AM EDT PROCEDURE INFORMATION: Exam: XR Left Hip Exam date and time: 03/15/2023 11:50 AM Age: 68 years old Clinical indication: Pain in left hip; Additional info: Hip pain x 2d TECHNIQUE: Imaging protocol: Radiologic exam of the left hip. Views: 2 or 3 views hip with pelvis when performed. COMPARISON: CT ABDOMEN /PELVIS WITHOUT IV CONTRAST-IOF 03/31/2017 10:47 AM FINDINGS: Bones/joints: Severe joint space narrowing of left [...] Likely calcified uterine fibroids. Other findings: Moderate Procedure Note Fabby Kang MD - 03/21/2023 PROCEDURE INFORMATION: Exam: XR Left Hip Exam date and time: 03/15/2023 11:50 AM Age: 68 years old Clinical indication: Pain in left hip; Additional info: Hip pain x 2d TECHNIQUE: Imaging protocol: Radiologic exam of the left hip. Views: 2 or 3 views hip with pelvis when performed. COMPARISON: CT ABDOMEN /PELVIS WITHOUT IV CONTRAST-IOF 03/31/2017 10:47 AM FINDINGS: Bones/joints: Severe joint space narrowing of left hip. Large subchondralcysts on both sides of the joint space. Chronic remodeling and flattening ofleft femoral head.There are marginal osteophytes present. There is no evidenceof bony cortex disruption or periostitis. There is moderate diffuseosteopenia. Irregular appearance and flattening of right femoral head suggestingavascular necrosis. There are moderate degenerative changes of the lumbar spine and sacroiliac joints. Soft tissues: See "Bones/joints" finding. Organs: Likely calcified uterine fibroids. Other findings: Moderate IMPRESSION IMPRESSION: 1. Severe degenerative changes of left hip . No definite displacedfracture. 2. Question avascular necrosis of right femoral head. 3. Degenerative changes. 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 Question Answer Comments Discussion of Advance Directives occurred with: Family Does the patient have a Living Will? No Does the patient have Health Care Power of Transit Planner? No Code Status History Code Status Date Activated Date Inactivated Comments Full Code 06/15/2016 5:56 PM 08/09/2016 8:19 PM This order reflects the patients wishes and were consensually agreed upon. Question Answer Comments Discussion of Advance Directives occurred with: Patient Does the patient have a Living Will? No Does the patient have Health Care Power of Transit Planner? No Full Code 05/15/2016 3:18 AM 06/08/2016 6:42 PM This order reflects the patients wishes and were consensually agreed upon. Question Answer Comments Discussion of Advance Directives occurred with: Not Discussed Care Teams Cow Washer Relationship Specialty Start Date End Date Joe Peng, DO [address] [place] [address] PCP - General Family Medicine 05/19/18 documented as of this encounter
--- OUTSIDE RECORDS SUMMARY | 2023-08-22 00:37 | External Medical Summary | Summary of Care ---
Author Name Unknown Organization [facility] Address [address] [place] [address] Phone [phone] Care Team Providers Care Package Line Operator Name Role Phone Joe Peng DO Primary Care Provider [phone] Encounter Details Date Type Department Care Team [...] mRNA, LNP-s, No Pre serve, 2-Dose Series ([employer]) 05/08/2021,08/29/2020,08/08/2020 DTaP - Dipth/Tet/Acell Pertussis 12/25/2017,10/04,09/25/2017 IPV [...] Medicine Joe Peng, [address] [place] [address] 04/09/2023 Laboratory Laboratory Celso Armstrong [address] [place] [address] 04/09/2023 Hem/Onc Treatment [facility] [place], Chair 1 Hem Onc Scenery [address] [place] [address] 04/10/2023 Hem/Onc Treatment Hematology Oncology 04/11/2023 Hem/Onc Treatment Hematology Oncology 04/12/2023 Hem/Onc Treatment H[facility]ology [facility] [place], Chair 6 Hem Onc Scenery [address] [place] [address] 04/22/2023 Office Visit Orthopedics Yovani Whitten MD [address] [place] [address] 06/03/2023 Laboratory Laboratory [facility], Lab Scenery [address] [place] [address] 06/03/2023 Office Visit Hematology Oncology Corbin Nielson MD [address] [place] [address] 06/11/2023 Office Visit Cardiology Miya Jerez CRNP [address] [place] [address] 06/18/2023 Telemedicine Gastroenterology Syl Cohen DO [address] [place] [address] Scheduled Procedures Name Priority Associated Diagnoses Date/Ti [...] the patient have Health Care Power of Salon/Spa Manager? No Code Status History Code Status Date Activated Date Inactivated Comments Full Code 06/15/2016 5:56 PM 08/09/2016 8:19 PM This order reflects the patients wishes and were consensually agreed upon. Question Answer Comments Discussion of Advance Directives occurred with: Patient Does the patient have a Living Will? No Does the patient have Health Care Power of Salon/Spa Manager? No Full Code 05/15/2016 3:18 AM 06/08/2016 6:42 PM This order reflects the patients wishes and were consensually agreed upon. Question Answer Comments Discussion of Advance Directives occurred with: Not Discussed Care Teams Package Line Operator Relationship Specialty Start Date End Date Joe Peng, [address] [place] [address] PCP - General Family Medicine 05/19/18 documented as of this encounter
--- OUTSIDE RECORDS SUMMARY | 2023-08-22 00:38 | External Medical Summary | Summary of Care ---
Author Name Unknown Organization [facility] Address [address] [place] [address] Phone [phone] Care Team Providers Care Administration Assistant Name Role Phone Brenda Daniels DO Primary Care Provider [phone] Reason for Visit * Reason Comments eRx-Medication Refill Encounter Details Date Type Department Care Team Description 03/14/2023 Refill Family Practice [facility] [address] [place] [address] Brenda Daniels DO [address] [facility] [address] Gastroesophageal reflux disease without esophagitis Allergies Active Allergy Reactions Severity Noted Date [...] DAILY 90 Capsule 1 03/14/20 23 Active Omeprazole 20 MG Oral Capsule Delayed Release ([facility])Indicati ons:Gastroesophage al reflux disease without esophagitis Take 1 Capsule by mouth in the morning. 90 Capsule 1 01/03/20 23 023 Discontinued documented as of this [...] mRNA, LNP-s, No Pre serve, 2-Dose Series ([employer]) 05/08/2021,08/29/2020,08/08/2020 DTaP - Dipth/Tet/Acell Pertussis 12/25/2017,10/04,09/25/2017 IPV [...] encounter Miscellaneous Notes * Telephone Encounter - Juaquin Blanco [facility] - 03/14/2023 10:14 AM EDTSigned Prescriptions: Disp Refills Omeprazole 20 MG Oral Capsule Delayed Rele*90 Cap*1 Sig: TAKE 1 CAPSULE DAILYAuthorizing Provider: BRENDA DANIELS User: O'KEVIN, JUAQUIN M documented in this encounter Plan of Treatment Upcoming Encounters Date Type Specialty Care Team Description 03/14/2023 Hem/Onc Treatment Hematology Oncology [place], Chair 7 Hem Onc Scenery [address] [facility], [place] [address] 03/15/2023 Office Visit Internal Medicine Lilliana Kirkland MD [address] [facility], [place] [address] 03/20/2023 Imaging Radiology 03/20/2023 Imaging Radiology 04/03/2023 Office Visit Cardiology Benjamin Bonilla MD [address] [facility] [place] [address] 04/09/2023 Office Visit Family Medicine Brenda Daniels, [address] [facility] [place] [address] 04/09/2023 Laboratory Laboratory [facility], Lab Scenery [address] [place], [place] [address] 04/09/2023 Hem/Onc Treatment Hematology [place] [place], Chair 6 Hem Onc Scenery [address] [place], [place] [address] 04/10/2023 Hem/Onc Treatment Hematology Oncology 04/11/2023 Hem/Onc Treatment Hematology Oncology 04/12/2023 Hem/Onc Treatment Hematology [place] [place], Chair 6 Hem Onc Scenery [address] [place] [address] 06/03/2023 Laboratory Laboratory [facility], Lab Scenery [address] [facility] [address] 06/03/2023 Office Visit Hematology Oncology Corbin Nielson MD [address] [place] [address] 06/18/2023 Telemedicine Gastroenterology Syl Cohen, DO [address] [place] [address] Scheduled Procedures Name Priority Associated Diagnoses Date/Ti [...] 12/10/2022, 05/09/2021, 08/31/2020, Additional history exists Mammogram 02/23/2024 02/22/2023, [...] as of this encounter Visit Diagnoses Diagnosis Gastroesophageal reflux disease without esophagitis Esophageal reflux documented in this encounter Advance Directives Latest Code Status on File Code Status Date Activated Date Inactivated Comments Full Code 04/02/2017 4:50 AM 04/17/2017 3:02 PM This order reflects the patients wishes and were consensually agreed upon. Question Answer Comments Discussion of Advance Directives occurred with: Family Does the patient have a Living Will? No Does the patient have Health Care Power of Business Trainer? No Code Status History Code Status Date Activated Date Inactivated Comments Full Code 06/15/2016 5:56 PM 08/09/2016 8:19 PM This order reflects the patients wishes and were consensually agreed upon. Question Answer Comments Discussion of Advance Directives occurred with: Patient Does the patient have a Living Will? No Does the patient have Health Care Power of Business Trainer? No Full Code 05/15/2016 3:18 AM 06/08/2016 6:42 PM This order reflects the patients wishes and were consensually agreed upon. Question Answer Comments Discussion of Advance Directives occurred with: Not Discussed Care Teams Administration Assistant Relationship Specialty Start Date End Date Brenda Daniels, DO [address] [facility] [place] [address] PCP - General Family Medicine 05/19/18 documented as of this encounter
--- OUTSIDE RECORDS SUMMARY | 2023-08-22 00:38 | External Medical Summary | Summary of Care ---
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) Encounter for antineoplastic chemotherapy Procedures [place] DECITABINE INJECTION Corbin Nielson MD [address] [place] [address] Anc Hem/Onc Scenery [place] [address] [place] [address] Referral ID Status Reason Start Date Expiration Date V isits Requested Visits Authorized [id number] Authorized 07/05/2021 08/04/2099 99 99 Encounter Details Date Type Department Care Team Description 03/12/2023 Hem/Onc Treatment Hematology/Oncology Treatment, [place] [address] [place], [place] [address] Patti, Chair 6 Hem Onc Scenery [address] [place], [place] [address] 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 90 Tablet 1 3 Active Omeprazole 20 MG Oral Capsule Delayed Release (PriLOSEC)Indicatio ns:Gastroesophageal reflux disease without esophagitis Take 1 Capsule by mouth in the morning. 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 0 02/12/2012 04/27/2015 Overview: ICD-10 update of inactive term Other disorder of menstruati on and other abnormal bleeding from female genital tract 09/16/2007 04/27/2015 Uterine leiomyoma 09/16/2007 04/27/2015 documented as of this encounter (statuses as of 03/12/2023) Immunizations Name Administration Dates Next Due COVID-19 mRNA, LNP-s, No Pre serve, 2-Dose Series ([facility]) 05/08/2021,08/29/2020,08/08/2020 DTaP - Dipth/Tet/Acell Pertussis 12/25/2017,10/04,09/25/2017 IPV [...] Reading Time Taken Comments Blood Pressure 118/73 03/12/2023 1:30 PM EDT Pulse 71 03/12/2023 1:30 PM EDT Temperature 36.3 C (97.4 F) 03/12/2023 1:30 PM ED T Respiratory Rate 18 03/12/2023 1:30 PM EDT Oxygen Saturation 98% 03/12/2023 1:30 PM EDT Inhaled Oxygen Concentration - [...] this encounter Nursing Notes * Erin Clarke, RN - 03/12/2023 4:27 PM EDT Chair 11. Port accessed without difficulty. Patient is here for day 2 of Dacogen, feeling well overall today. Pt is comfortable and denies further needs at this time. Chemo agents Dacogen Appetite good Nausea/Vomiting no Diarrhea no Constipation no Mucositis no Fatigue no Bleeding no Infection no Rash no Numbness tingling no Pain no Radiation no ABN Labs WNL for tx today, done yesterday Alt in Tx: N/A Return in 1 [...] Encounters Date Type Specialty Care Team Description 03/13/2023 Hem/Onc Treatment Hematology [place] [place], Chair 7 Hem Onc Scenery [address] [place] [address] 03/14/2023 Hem/Onc Treatment Hematology [place] [place], Chair 7 Hem Onc Scenery [address] [place] [address] 03/20/2023 Imaging Radiology 03/20/2023 Imaging Radiology 04/03/2023 Office Visit Cardiology Benjamin Bonilla MD [address] [place] [address] 04/09/2023 Office Visit Family Medicine Joe Peng, [address] [place] [address] 04/09/2023 Laboratory Laboratory [place], Lab Scenery [address] [place] [address] 04/09/2023 Hem/Onc Treatment Hematology Oncology [place], Chair 6 Hem Onc Scenery [address] [place] [address] 04/10/2023 Hem/Onc Treatment Hematology Oncology 04/11/2023 Hem/Onc Treatment Hematology Oncology 04/12/2023 Hem/Onc Treatment Hematology Oncology [place], Chair 6 Hem Onc Scenery [address] [place] [address] 06/03/2023 Laboratory Laboratory [place], Lab Scenery [address] [place] [address] 06/03/2023 Office Visit Hematology Oncology Corbin Nielson MD [address] [place] [address] 06/18/2023 Telemedicine Gastroenterology Syl Cohen, DO [address] [place] [address] Scheduled Procedures Name Priority Associated Diagnoses Date/Ti [...] ONCE PRN Other, Hypersensitivity Reaction, Starting on Sat03/12/23 at 1344, Until Sat03/13/23 at 1343, For 24 hours EPINEPHrine 1 MG/ML inj 0.3 mg 0.3 mg, Intramuscular, ONCE PRN Other, Hypersensitivity Reaction or Anaphylaxis, Starting on Sat03/12/23 at 1344, Until Sat03/13/23 at 1343, For 24 hours hEParin 100 UNIT/ML Lock Flush inj 500 Units 500 Units (5 mL), IV Lock, PRN Other, IV Flush, Starting on Sat03/12/23 at 1344, Until Sat03/13/23 at 1343, For 24 hours, Do not flush if lock, PICC, or central line not in place; IV infusing or unable to flush. Given 03/12/2023 3:16 PM EDT 500 Units Hydrocortisone Sod Suc (PF) (Solu-Cortef) inj 100 mg 100 mg, IV Push, ONCE PRN Other, Hypersensitivity Reaction, Starting on Sat03/12/23 at 1344, Until Sat03/13/23 at 1343, For 24 hours NSS infusion 500 mL, Intravenous, at 50 mL/hr, CONTINUOUS, Starting on Sat03/12/23 at 1445, Until Sat03/13/23 at 0044 Start Infusion 03/12/2023 2:00 PM EDT 500 mL 50 mL/hr sodium chloride 0.9 % flush central line 10 mL 10 mL, IV Push, PRN Other, IV Flush, Starting on Sat03/12/23 at 1344, Until Sat03/13/23 at 1343, For 24 hours, Do not flush if lock, PICC, or central line not in place; IV infusing or unable to flush. Given 03/12/2023 3:16 PM EDT 10 mL Inactive Administered Medications - up to 3 most recent administrations Medication Order MAR Action Action Date Dose Rate Site Decitabine (Dacogen) 25.6 mg in NSS 100 mL infusion 25.6 mg (16 mg/m2 1.6 m2 Order-specific BSA), IV Piggyback, ONCE, 1 dose, On Sat03/12/23 at 1515, Administer over 60 Minutes, CAUTION: CHEMOTHERAPY HANDLE WITH GLOVES ! Start Infusion 03/12/2023 2:13 PM EDT 25.6 mg 100 mL/hr documented [...] patient have Health Care Power of Home Health Clinician? No Code Status History Code Status Date Activated Date Inactivated Comments Full Code 06/15/2016 5:56 PM 08/09/2016 8:19 PM This order reflects the patients wishes and were consensually agreed upon. Question Answer Comments Discussion of Advance Directives occurred with: Patient Does the patient have a Living Will? No Does the patient have Health Care Power of Home Health Clinician? No Full Code 05/15/2016 3:18 AM 06/08/2016 6:42 PM This order reflects the patients wishes and were consensually agreed upon. Question Answer Comments Discussion of Advance Directives occurred with: Not Discussed Care Teams Occ Ther Relationship Specialty Start Date End Date Joe Peng, DO [address] [place] [address] PCP - General Family Medicine 05/19/18 documented as of this encounter
--- OUTSIDE RECORDS SUMMARY | 2023-08-22 00:38 | External Medical Summary | Summary of Care ---
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) Encounter for antineoplastic chemotherapy Procedures [place] DECITABINE INJECTION Corbin Nielson MD [address] [facility] [place] [address] Anc Hem/Onc [facility] [address] [place], [place] [address] Referral ID Status Reason Start Date Expiration Date V isits Requested Visits Authorized [id number] Authorized 07/05/2021 08/04/2099 99 99 Encounter Details Date Type Department Care Team Description 03/11/2023 Hem/Onc Treatment Hematology/Oncology Treatment, [place] [address] [facility] [place], [place] [address] 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 30 Tablet 3 2 Active Ondansetron 8 MG Oral Tablet DisintegratingIndic ations:Acute myeloid leukemia in remission (HCC) Place 1 Tablet on tongue every 8 hours as needed for Nausea. dissolve on tongue. 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 0 02/12/2012 04/27/2015 Overview: ICD-10 update of inactive term Other disorder of menstruati on and other abnormal bleeding from female genital tract 09/16/2007 04/27/2015 Uterine leiomyoma 09/16/2007 04/27/2015 documented as of this encounter (statuses as of 03/11/2023) Immunizations Name Administration Dates Next Due COVID-19 mRNA, LNP-s, No Pre serve, 2-Dose Series ([facility]) 05/08/2021,08/29/2020,08/08/2020 DTaP - Dipth/Tet/Acell Pertussis 12/25/2017,10/04,09/25/2017 IPV [...] Nursing Notes * Leeann Roche RN - 03/11/2023 11:37 AM EDT Functional status at today's visit: Fully [...] Pt remained free of injury during treatment today. Patient tolerated treatment well and was discharged in stable condition. No coverage needed today. * Leeann oRche RN - 03/11/2023 9:58 AM EDT Chair 10, present. Pt was seen by Dr Nielson today, see office notes. Will proceed with treatment today as planned. VAD accessed without difficulty, good blood return noted, flushed with NSS and fluids infusing. Safety and Risk for Injury Patient will remain free from injury. Ensure appropriate safety devices are available. Provide and maintain safe environment. documented in this encounter Plan of Treatment Upcoming Encounters Date Type Specialty Care Team Description 03/12/2023 Hem/Onc Treatment Hematology [place] [place], Chair 6 Hem Onc Scenery [address] [place] [address] 03/13/2023 Hem/Onc Treatment Hematology Oncology [place], Chair 7 Hem Onc Scenery [address] [place] [address] 03/14/2023 Hem/Onc Treatment Hematology Oncology [place], Chair 7 Hem Onc Scenery [address] [place] [address] 03/20/2023 Imaging Radiology 03/20/2023 Imaging Radiology 04/03/2023 Office Visit Cardiology Benjamin Bonilla MD [address] [place] [address] 04/09/2023 Office Visit Family Medicine Joe Peng DO [address] [place] [address] 04/09/2023 Hem/Onc Treatment Hematology Oncology [place], Chair 6 Hem Onc Scenery [address] [place] [address] 04/10/2023 Hem/Onc Treatment Hematology Oncology 04/11/2023 Hem/Onc Treatment Hematology Oncology 04/12/2023 Hem/Onc Treatment Hematology Oncology [place], Chair 6 Hem Onc Scenery [address] [place] [address] 06/03/2023 Laboratory Laboratory [facility] Lab Scenery [address] [place] [address] 06/03/2023 Office Visit Hematology Oncology Corbin Nielson MD [address] [place] [address] 06/18/2023 Telemedicine Gastroenterology Syl Cohen DO [address] [place] [address] Scheduled Procedures Name Priority Associated Diagnoses Date/Ti [...] ONCE PRN Other, Hypersensitivity Reaction, Starting on Sat03/11/23 at 0940, Until Sat03/12/23 at 0939, For 24 hours EPINEPHrine 1 MG/ML inj 0.3 mg 0.3 mg, Intramuscular, ONCE PRN Other, Hypersensitivity Reaction or Anaphylaxis, Starting on Sat03/11/23 at 0940, Until Sat03/12/23 at 0939, For 24 hours hEParin 100 UNIT/ML Lock Flush inj 500 Units 500 Units (5 mL), IV Lock, PRN Other, IV Flush, Starting on Sat03/11/23 at 0940, Until Sat03/12/23 at 0939, For 24 hours, Do not flush if lock, PICC, or central line not in place; IV infusing or unable to flush. Given 03/11/2023 11:19 AM EDT 500 Units Hydrocortisone Sod Suc (PF) (Solu-Cortef) inj 100 mg 100 mg, IV Push, ONCE PRN Other, Hypersensitivity Reaction, Starting on Sat03/11/23 at 0940, Until Sat03/12/23 at 0939, For 24 hours NSS infusion 500 mL, Intravenous, at 50 mL/hr, CONTINUOUS, Starting on Sat03/11/23 at 1045, Until Sat03/11/23 at 2044 Start Infusion 03/11/2023 9:45 AM EDT 500 mL 50 mL/hr sodium chloride 0.9 % flush central line 10 mL 10 mL, IV Push, PRN Other, IV Flush, Starting on Sat03/11/23 at 0940, Until Sat03/12/23 at 0939, For 24 hours, Do not flush if lock, PICC, or central line not in place; IV infusing or unable to flush. Given 03/11/2023 11:19 AM EDT 10 mL Inactive Administered Medications - up to 3 most recent administrations Medication Order MAR Action Action Date Dose Rate Site Decitabine (Dacogen) 25.6 mg in NSS 100 mL infusion 25.6 mg (16 mg/m2 1.6 m2 Order-specific BSA), IV Piggyback, ONCE, 1 dose, On Sat03/11/23 at 1115, Administer over 60 Minutes, CAUTION: CHEMOTHERAPY HANDLE WITH GLOVES ! Start Infusion 03/11/2023 10:15 AM EDT 25.6 mg 100 mL/hr ondansetron (Zofran) tab 8 mg 8 mg, Oral, ONCE, On Sat03/11/23 at 1045, For 1 dose Given By 03/11/2023 7:45 AM EDT 8 mg documented in this [...] the patient have Health Care Power of Stock Receiver? No Code Status History Code Status Date Activated Date Inactivated Comments Full Code 06/15/2016 5:56 PM 08/09/2016 8:19 PM This order reflects the patients wishes and were consensually agreed upon. Question Answer Comments Discussion of Advance Directives occurred with: Patient Does the patient have a Living Will? No Does the patient have Health Care Power of Stock Receiver? No Full Code 05/15/2016 3:18 AM 06/08/2016 6:42 PM This order reflects the patients wishes and were consensually agreed upon. Question Answer Comments Discussion of Advance Directives occurred with: Not Discussed Care Teams Kettle Room Helper Relationship Specialty Start Date End Date Joe Peng, DO [address] [place] [facility] [place] [address] PCP - General Family Medicine 05/19/18 documented as of this encounter
--- OUTSIDE RECORDS SUMMARY | 2023-08-22 00:38 | External Medical Summary | Summary of Care ---
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) Encounter for antineoplastic chemotherapy Procedures [place] DECITABINE INJECTION Corbin Nielson MD [address] [place] [address] Anc Hem/Onc Scenery [place] [address] [facility] [place] [address] Referral ID Status Reason Start Date Expiration Date V isits Requested Visits Authorized [id number] Authorized 07/05/2021 08/04/2099 99 99 Encounter Details Date Type Department Care Team Description 03/13/2023 Hem/Onc Treatment Hematology/Oncology Treatment, [place] [address] [place] [address] Patti, Chair 7 Hem Onc Scenery [address] [facility] [place] [address] 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)*; Encounter for antineoplastic chemotherapy; Acute myeloid leukemia not having achieved remission (HCC) Allergies Active Allergy Reactions Severity Noted Date Comments Amoxicillin Nausea/vomiting 11/14/2015 Penicillins Nausea/vomiting Low 08/12/2007 tolerated cephalosporins in past Other reaction(s): Nausea Only Other reaction(s): "makes me nervous", Nausea documented as of this encounter (statuses as of 03/13/2023) Medications Medication Sig Dispensed Refills Start Date [...] as of this encounter (statuses as of 03/13/2023) Active Problems Problem Noted Date Hypotension 06/19/2022 [...] as of this encounter (statuses as of 03/13/2023) Resolved Problems Problem Noted Date Resolved Date [...] as of this encounter (statuses as of 03/13/2023) Immunizations Name Administration Dates Next Due COVID-19 mRNA, LNP-s, No Pre serve, 2-Dose Series ([employer]) 05/08/2021,08/29/2020,08/08/2020 DTaP - Dipth/Tet/Acell Pertussis 12/25/2017,10/04,09/25/2017 IPV [...] Sign Reading Time Taken Comments Blood Pressure 101/67 03/13/2023 1:00 PM EDT Pulse 75 03/13/2023 1:00 PM EDT Temperature - - Respiratory Rate 18 03/13/2023 1:00 PM EDT Oxygen Saturation 95% 03/13/2023 1:00 PM EDT Inhaled Oxygen Concentration - [...] Nursing Notes * Melissa Lynn RN - 03/13/2023 2:34 PM EDT Dacogen infusion is complete. Pt tolerated well. Goals: pt to remain free from injury Possible barriers to meeting goals: ambulation with IV pole/tubing Stability of the patient: Moderately stable - low risk of patient condition declining or worsening Summary regarding today's goals: Met: pt remained free from injury Functional status at today's visit: Restricted in [...] or adverse side effects during treatment. Pt discharged in stable condition. * Melissa Lynn RN - 03/13/2023 2:15 PM EDT Ch 9. Pt arrived today for Dacogen infusion. She has no new concerns since infusion yesterday. Chemo agents Dacogen Appetite good Nausea/Vomiting occasional nausea, usually in am Diarrhea denies Constipation denies Mucositis denies Fatigue mild to moderate, takes rest periods Bleeding denies Infection denies [...] Team Description 03/14/2023 Hem/Onc Treatment Hematology Oncology [place], Chair 7 Hem Onc Scenery [address] [place] [address] 03/20/2023 Imaging Radiology 03/20/2023 Imaging Radiology 04/03/2023 Office Visit Cardiology Benjamin Bonilla MD [address] [place] [address] 04/09/2023 Office Visit Family Medicine Joe Peng, [address] [place] [address] 04/09/2023 Laboratory Laboratory [place], Lab Scenery [address] [place] [address] 04/09/2023 Hem/Onc Treatment Hematology Oncology [place], Chair 6 Hem Onc Scenery [address] [place] [address] 04/10/2023 Hem/Onc Treatment Hematology Oncology 04/11/2023 Hem/Onc Treatment Hematology Oncology 04/12/2023 Hem/Onc Treatment Hematology Oncology [place], Chair 6 Hem Onc Scenery [address] [place] [address] 06/03/2023 Laboratory Laboratory [place], Lab Scenery [address] [place] [address] 06/03/2023 Office Visit Hematology Oncology Corbin Nielson MD [address] [place] [address] 06/18/2023 Telemedicine Gastroenterology Syl Cohen, DO [address] [place] [address] Scheduled Procedures Name Priority Associated Diagnoses Date/Ti [...] ONCE PRN Other, Hypersensitivity Reaction, Starting on Sat03/13/23 at 1255, Until Verena 03/14/23 at 1254, For 24 hours EPINEPHrine 1 MG/ML inj 0.3 mg 0.3 mg, Intramuscular, ONCE PRN Other, Hypersensitivity Reaction or Anaphylaxis, Starting on Sat03/13/23 at 1255, Until Verena 03/14/23 at 1254, For 24 hours hEParin 100 UNIT/ML Lock Flush inj 500 Units 500 Units (5 mL), IV Lock, PRN Other, IV Flush, Starting on Sat03/13/23 at 1255, Until Verena 03/14/23 at 1254, For 24 hours, Do not flush if lock, PICC, or central line not in place; IV infusing or unable to flush. Given 03/13/2023 2:20 PM EDT 500 Units Hydrocortisone Sod Suc (PF) (Solu-Cortef) inj 100 mg 100 mg, IV Push, ONCE PRN Other, Hypersensitivity Reaction, Starting on Sat03/13/23 at 1255, Until Verena 03/14/23 at 1254, For 24 hours NSS infusion 500 mL, Intravenous, at 50 mL/hr, CONTINUOUS, Starting on Sat03/13/23 at 1400, Until Sat03/13/23 at 2359 Start Infusion 03/13/2023 1:11 PM EDT 500 mL 50 mL/hr sodium chloride 0.9 % flush central line 10 mL 10 mL, IV Push, PRN Other, IV Flush, Starting on Sat03/13/23 at 1255, Until Verena 03/14/23 at 1254, For 24 hours, Do not flush if lock, PICC, or central line not in place; IV infusing or unable to flush. Given 03/13/2023 2:20 PM EDT 10 mL Inactive Administered Medications - up to 3 most recent administrations Medication Order MAR Action Action Date Dose Rate Site Decitabine (Dacogen) 25.6 mg in NSS 100 mL infusion 25.6 mg (16 mg/m2 1.6 m2 Order-specific BSA), IV Piggyback, ONCE, 1 dose, On Sat03/13/23 at 1430, Administer over 60 Minutes, CAUTION: CHEMOTHERAPY HANDLE WITH GLOVES ! Start Infusion 03/13/2023 1:14 PM EDT 25.6 mg 100 mL/hr documented [...] the patient have Health Care Power of Carbide Grinder? No Code Status History Code Status Date Activated Date Inactivated Comments Full Code 06/15/2016 5:56 PM 08/09/2016 8:19 PM This order reflects the patients wishes and were consensually agreed upon. Question Answer Comments Discussion of Advance Directives occurred with: Patient Does the patient have a Living Will? No Does the patient have Health Care Power of Carbide Grinder? No Full Code 05/15/2016 3:18 AM 06/08/2016 6:42 PM This order reflects the patients wishes and were consensually agreed upon. Question Answer Comments Discussion of Advance Directives occurred with: Not Discussed Care Teams Cyber Software Engineer Relationship Specialty Start Date End Date Joe Peng, DO [address] [facility], [place] [address] PCP - General Family Medicine 05/19/18 documented as of this encounter
--- OUTSIDE RECORDS SUMMARY | 2023-08-22 00:38 | External Medical Summary | Summary of Care ---
Author Name Unknown Organization [facility] Address [address] [place] [address] Phone [phone] Care Team Providers Care Ruby Engineer Name Role Phone Brenda Daniels DO Primary Care Provider [phone] Reason for Visit * Reason Onset Date Comments Medication Refill 03/10/2023 Encounter Details Date Type Department Care Team Description 03/10/2023 Refill Family Practice [facility] [address] [place] [address] Adrian Herrera III, MD [address] [place] [address] Acute myeloid leukemia in remission (HCC) Allergies Active Allergy Reactions Severity [...] dissolve on tongue. 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 0 02/12/2012 04/27/2015 Overview: ICD-10 update of inactive term Other disorder of menstruati on and other abnormal bleeding from female genital tract 09/16/2007 04/27/2015 Uterine leiomyoma 09/16/2007 04/27/2015 documented as of this encounter (statuses as of 03/11/2023) Immunizations Name Administration Dates Next Due COVID-19 mRNA, LNP-s, No Pre serve, 2-Dose Series ([employer]) 05/08/2021,08/29/2020,08/08/2020 DTaP - Dipth/Tet/Acell Pertussis 12/25/2017,10/04,09/25/2017 IPV [...] encounter Miscellaneous Notes * Telephone Encounter - Miriam Dixon, [facility] - 03/11/2023 8:40 PM EDT Signed Prescriptions: Disp Refills Ondansetron 8 MG Oral Tablet [id number] Tab*2 Sig: Place 1Tablet on tongue every 8 hours as needed for Nausea. dissolve on tongue.Authorizing Provider: BRENDA DANIELS User: MIRIAM DIXON documented in this encounter Plan of Treatment Upcoming Encounters Date Type Specialty Care Team Description 03/12/2023 Hem/Onc Treatment [facility], Chair 6 Hem Onc Scenery [address] [place] [address] 03/13/2023 Hem/Onc Treatment [facility], Chair 7 Hem Onc Scenery [address] [place] [address] 03/14/2023 Hem/Onc Treatment Hematology [facility] [place], Chair 7 Hem Onc Scenery [address] [place] [address] 03/20/2023 Imaging Radiology 03/20/2023 Imaging Radiology 04/03/2023 Office Visit Cardiology Benjamin Bonilla MD [address] [place] [address] 04/09/2023 Office Visit Family Medicine Brenda Daniels DO [address] [place] [address] 04/09/2023 Hem/Onc Treatment [facility], Chair 6 Hem Onc Scenery [address] [place] [address] 04/10/2023 Hem/Onc Treatment Hematology Oncology 04/11/2023 Hem/Onc Treatment Hematology Oncology 04/12/2023 Hem/Onc Treatment [facility], Chair 6 Hem Onc Scenery [address] [place] [address] 06/03/2023 Laboratory Laboratory [facility], Lab Scenery [address] [place] [address] 06/03/2023 Office Visit Hematology Oncology Corbin Nielson MD [address] [place] [address] 06/18/2023 Telemedicine Gastroenterology Syl Cohen, DO [address] [place] [id number] Scheduled Procedures Name Priority Associated Diagnoses Date/Ti [...] 01/23/2023, 11/04/2018 Pap Smear Discontinued 08/13/2019, 08/2013, 04/29/2009, Additional history exists Pneumococcal Vaccine: [...] the patient have Health Care Power of Scrubber Operator? No Code Status History Code Status Date Activated Date Inactivated Comments Full Code 06/15/2016 5:56 PM 08/09/2016 8:19 PM This order reflects the patients wishes and were consensually agreed upon. Question Answer Comments Discussion of Advance Directives occurred with: Patient Does the patient have a Living Will? No Does the patient have Health Care Power of Scrubber Operator? No Full Code 05/15/2016 3:18 AM 06/08/2016 6:42 PM This order reflects the patients wishes and were consensually agreed upon. Question Answer Comments Discussion of Advance Directives occurred with: Not Discussed Care Teams Ruby Engineer Relationship Specialty Start Date End Date Brenda Daniels, DO [address] [place] [address] PCP - General Family Medicine 05/19/18 documented as of this encounter
--- OUTSIDE RECORDS SUMMARY | 2023-08-22 00:39 | External Medical Summary | Summary of Care ---
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)*; Leukemia cutis (HCC); S/P bone marrow transplant (HCC); Encounter for antineoplastic chemotherapy Allergies Active [...] 022 Acquired absence of left great toe 03/26 /2021 Neutropenia 02/15/2020 Amputated great toe of left [...] mRNA, LNP-s, No Pre serve, 2-Dose Series ([employer]) 05/08/2021,08/29/2020,08/08/2020 DTaP - Dipth/Tet/Acell Pertussis 12/25/2017,10/04,09/25/2017 IPV [...] Sign Reading Time Taken Comments Blood Pressure 110/73 03/11/2023 8:45 AM EDT Pulse 87 03/11/2023 8:45 AM EDT Temperature 36.4 C (97.6 F) 03/11/2023 8:45 AM ED T Respiratory Rate 16 03/11/2023 8:45 AM EDT Oxygen Saturation 97% 03/11/2023 8:45 AM EDT Inhaled Oxygen Concentration - - Weight 49.9 kg (110 lb 1.6 oz) 03/11/2023 8:45 A M EDT Height - - Body Mass Index 17.5 11/03/2022 3:46 PM EDT documented in this encounter Functional Status [...] as of this encounter Progress Notes * Corbin Nielson MD - 03/11/2023 9:04 AM EDT Outpatient Consult Note Data Source: Patient, Epic record. Data Source: Patient, Epic record. 03/11/2023 9:04 AM Codi Lewiswalski [id number] 68 year old Patient Encounter: HEMATOLOGY/ONCOLOGY 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 Previous Treatment: 1.7+ 3 induction chemotherapy (daunorubicin and cytarabine)on 05/18/2016 2. FL WL-IPQer-uoprxlnor on 06/21/2016 3. 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 4.04/2019 she was noted to have worsening skin lesions on her lower extremities. She had radiationto her lower extremities with a complete resolution of her leukemia cutis. In 09/2019, 5.11/03/2019-She developed new lesions on her RUE as well as one lesion on her right shoulder. 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 Bone marrow aspirate and biopsy showed residual disease and she received re- inducation chemotherapy with FLAG-Juliette.She had evidence of residual disease even after the 2nd induction chemotherapy and subsequently was treated with the hypomethylating therapywith the Vidaza x3 cycles on which she accomplishedcomplete remission with persistent thrombocytopenia which was considered to represent autoimmune manifestation versus treatment related toxicity rather than active disease. 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 Her posttransplant clinical course was complicated with infection and sepsis with acute renal failure and latershe was also found have a low level [...] relapse of AML. The clinically evident extent ofher relapse is a quite limited,with skin lesions limited to her right lower extremity and no peripheral blood or marrow evidence of involvement.Bone marrow biopsy 09/23/18 marrow cellularity 30 to40% normocellular for age with active trilineage hematopoiesis and no increase in blasts. She hadextramedullary relapse with leukemia cutis Had punch biopsy of skin 09/17/18 pathology shows leukemia cutis CD33+ CD43+ CD56+CD68, Lysozyme +, CD57 -, MPO -,Ki 67 60% She was started on decitabine and venotoclax. [facility]2019and had a bone marrow biopsydone which according to patient was reported as negative for any evidence of relapse of leukemia. Bone Marrow Aspiration and Biopsy 02/23/19: -Hypocellular marrow (15-20%) with trilineage hematopoiesis without evidence of increase in blasts. The aspirate smears are adequate. Megakaryocytes are present and morphologicallyunremarkable. Myeloid precursors show full differentiation with no increase in blasts. Erythroid precursors show release specialist maturation without cytologic atypia. Core biopsy Sections (H&E and Giemsa stains): H&E and Giemsa stained sections show trabecular bone with hypocellular marrow (15-20 %). Myeloid precursors are decreased and show release specialist maturation. Erythroid precursors are increased and show release specialist maturation. Megakaryocytes are adequate with unremarkable [...] lower extremity. She was also seen at [facility] for follow-up and recommended to continue the same treatment and continue venetoclax as far as the ANC is equal to ormore than 500. She completed the radiation therapy toright lower extremity with improvement in the lesion which are due to leukemia cutis. Notice new skin lesion on the right upper extremity and shoulder area. She was seen at to [facility] and recommend radiation therapy. She was seen by Dr. Dockery from the radiation oncologyand received radiation therapy. Shecompleted to radiation therapy to the upper extremity and shoulder area on the right side. She alsohad telemedicineappointment with the Dr. Givens at to [facility] the decision was to continue the same treatment for now. Because of the pancytopenia venetoclax was discontinued and it was advised by the Dr. Givens from [facility]. Currently she is receiving Dacogen single agent. Skin, left clark: Leukemia cutis (see comment)05/25/2020 Comment: Atypical mononuclear cells permeate the reticular dermis. These are (+) for CD68 and lysozyme, and negative for MPO, CD34, and CD117. [facility] and [facility]ate done. According to the patient she was told that the bone marrow biopsy is negative for relapse of leukemia. The recommendation from Dr. Cobb is to [...] abnormal cell population in a hemodiluted specimen. Interval History: She had skin rash specially involving the right upper extremity which last for few days and then disappear. It was itchy but not painful. The ratio was different than the previous leukemia cutis. Otherwise clinically she is doing well. Patient denies any headache, dizziness, blurred vision, chest pain, shortness breath palpitation abdominal pain or distention, bleeding, bruising, nausea, vomiting, fever, night sweats, weight loss, hematuria, hematochezia. LABS/IMAGING: Results for orders placed or performed in visit on 03/11/23 COMPREHENSIVE METABOLIC PANEL Result Value Ref Range BUN 9 6 - 20 mg/dL Creatinine 0.9 0.5 - 1.0 mg/dL Estimated Glomerular Filtration Rate 70 >=60 mL/min Sodium 141 135 - 146 mmol/L Potassium 4.0 3.5 - 5.1 mmol/L Chloride 105 98 - 107 mmol/L CO2 29 22 - 32 mmol/L Anion Gap 7 7 - 15 mmol/L Glucose 76 70 - 120 mg/dL Albumin 3.5 (L) 3.8 - 5.0 g/dL AST 24 10 - 35 U/L Alkaline Phosphatase 215 (H) 35 - 130 U/L Bilirubin, Total 0.4 <=1.2 mg/dL Calcium 9.1 8.4 - 10.2 mg/dL Protein 6.7 6.0 - 8.3 g/dL ALT 15 10 - 35 U/L MAGNESIUM Result Value Ref Range Magnesium 1.7 1.5 - 2.6 mg/dL CBC Result Value Ref Range WBC 3.96 (L) 4.00 - 10.80 K/uL RBC 3.34 3.85 - 5.15 M/uL HGB 11.8 (L) 12.0 - 15.3 g/dL HCT 35.8 (L) 36.0 - 45.2 % MCV 107.2 81.5 - 97.5 fL MCH 35.3 27.0 - 34.0 pg MCHC 33.0 32.0 - 36.0 g/dL RDW 14.5 11.5 - 15.5 % PLT 298 140 - 400 K/uL MPV 9.4 6.6 - 11.1 fL DIFFERENTIAL, AUTOMATED Result Value Ref Range WBC 3.96 (L) 4.00 - 10.80 K/uL Neutrophils % 46.4 40.0 - 75.0 % Lymphocytes % 38.6 18.0 - 42.0 % Monocytes % 5.5 1.0 - 11.0 % Eosinophils % 5.9 0.0 - 6.0 % Basophils % 3.6 (H) 0.0 - 2.0 % Absolute Neutrophils 1.96 1.80 - 7.70 K/uL Absolute Lymphocytes 1.63 1.00 - 4.80 K/ul Absolute Monocytes 0.23 0.00 - 1.10 K/uL Absolute Eosinophils 0.25 0.00 - 0.70 K/uL Absolute Basophils 0.15 0.00 - 0.20 K/uL DIFFERENTIAL, TECHNOLOGIST REVIEW Result Value Ref Range nRBCs *Note: Due to a large number of results and/or encounters for the requested time period, some results have not been displayed. A complete set of results can be found in Results Review. All her blood counts and electrolytes in acceptable range with normal LFTs. REVIEW OF SYSTEMS: General: No Fever, chills, night sweats, or weight loss. HEENT: No change in visual acuity, blurred or double vision. No epistaxis, facial pain, nasal discharge or change in hearing. Denies dysphagia, no muscosal ulceration, or sores noted. Cardiovascular: No chest pain, WHITE, or palpitations Respiratory: No shortness of breath, cough, hemoptysis, or pleuritic chest pain Gastrointestinal: No abdominal pain, nausea, vomiting, rectal pain or bleeding Genitourinary: Denies Hematuria or dysuria Musculoskeletal: No bone pain Neurologic: No numbness, weakness, neuropathic pain or change in cognitive function Psychiatric: No vegetative signs of depression Endocrine: No symptoms of hypothyroidism or hyperglycemia Hematologic: No bleeding or lymph nodes noted As mentioned above, all of the systems were reviewed in full and are unremarkable. 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 30 Tablet 3 Ondansetron 8 MG Oral Tablet Disintegrating Place 1 Tablet on tongue every 8 hours as needed for Nausea. dissolve on tongue. 30 Tablet 5 Cyanocobalamin 1000 MCG Oral Tablet (Cyanocobalamin) Take 1 Tablet by mouth in the morning. 90 Tablet 1 Omeprazole 20 MG Oral Capsule Delayed Release (PriLOSEC) Take 1 Capsule by mouth in the morning. 90 Capsule 1 Levothyroxine Sodium 150 MCG Oral Tablet (Levoxyl) TAKE 1 TABLET IN THE MORNING AT LEAST 30 MINUTESPRIOR TO BREAKFAST OR OTHERMEDICATIONS 90 Tablet 1 No current facility-administered medications for this visit. Social History Tobacco Use Smoking status: Never Smokeless tobacco: Never Vaping Use Vaping Use: Never used Substance Use Topics Alcohol use: Yes Comment: rarely Drug use: No Review of patient's allergies indicates: Allergen Reactions Amoxicillin Nausea/vomiting Penicillins Nausea/vomiting tolerated cephalosporins in past Other reaction(s): Nausea Only Other reaction(s): "makes me nervous", Nausea PHYSICAL EXAMINATION: General Appearance: Healthy appearing patient in no acute distress BP 110/73 (BP Site: Left Arm, BP Position: Sitting, BP Cuff Size: Large) | Pulse 87 | Temp 36.4 C(97.6 F) (Tympanic) | Resp 16 | Wt 49.9 kg (110 lb 1.6 oz) | LMP 03/20/2009 | SpO2 97% | BMI 17.50 kg/m | BSA 1.53 m Vitals reviewed. HEENT: No oral or pharyngeal masses, ulceration or thrush noted, no sinus tenderness. Neck is supple with no thyromegaly or JVD noted. Lymph Nodes: No lymphadenopathy noted in the occipital, pre and post auricular, cervical, supra andinfraclavicular, axillary, epitrochlear, inguinal, and popliteal region. Lungs/Thorax: Clear to auscultation, no accessory muscles of respiration being used. Heart: Regular rate and rhythm, normal S1, S2 Abdomen: Soft, nontender, bowel sounds present, no appreciable hepatosplenomegaly, no palpable masses Extremeties: Good pulses bilaterally, no peripheral edema. Skin: She is a healing skin rash with no palpable nodule. 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 She relapsedwith skin involvement and biopsy was consistent with the leukemia cutis. Bone marrow biopsy was negative.She was started on combination of Dacogen and venetoclax. She also received radiation therapy to the right lower extremity with the disappearance of lesions. She developlesions in the right upper extremity and received radiation therapy with good responseand disappearance of the lesion. She is receiving Dacogen single agent since 12/02/2018. Venetoclax was discontinued because of the pancytopenia. She continues to have issues with the bone marrow recoverydespite dose reductionof 20%. Subsequently Dacogen infusion was reduced to 4 days instead of 5 days. She also developed new skin lesion in the left lower extremity and was biopsied and pathology is consistent with leukemia cutis. She was also seen by Dr. Cobb [facility] andhad bone marrow biopsy done whichwasnegative for leukemia. The recommendationwasto continue Dacogen. Currently she is receiving Dacogen or 4 days with good tolerance. She had developed a skin lesion in the right arm and right side of the facein March 2022which disappearin few days. Overall clinically she is stable and tolerating treatment very well without any significant side effects or toxicity. She had episode of skin rash which disappears. Her blood counts and electrolytes are in acceptable range. Reviewed all the available blood test result with the patient. Discussed with her about the diagnosis. She has follow-up appointment with Dr. Cobb on 03/18/2023. Discussed the option of refering to dermatology and she declined. PLAN: Continue current treatment. She will return to clinic for follow-up in 3 months The patient voiced understanding of all of the above. All questions and concerns were addressed in an apparently satisfactory manner. Corbin Nielson MD (This note was completed using the dictation program Fluency Direct. As such, there may be misspellings, word substitutions, or other variations that should not change the essence of the clinical content of this encounter note. If there is need for further clarification, please direct questions to me.) * Gladys Lombardi LPN - 03/11/2023 8:48 AM EDT Filed Vitals: 03/11/23 0845 BP: 110/73 Pulse: 87 Resp: 16 Temp: 36.4 C (97.6 F) TempSrc: Tympanic SpO2: 97% Weight: 49.9 kg (110 lb 1.6 oz) Patient identifed by name and birthdate Do you have any concerns about pain management for today's visit? Yes. Patient instructed to discuss pain concerns with provider during the visit today Living Will or Advance Directive for Health Care as noted on the problem list. [facility] is a way you can talk to your provider on line through e-mail. Would you like to sign up? I can activate it for you? ALREADY ACTIVE documented in this encounter Plan of Treatment Upcoming Encounters Date Type Specialty Care Team Description 03/12/2023 Hem/Onc Treatment [facility], Chair 6 Hem Onc Scenery [address] [place] [address] 03/13/2023 Hem/Onc Treatment [facility] [place], Chair 7 Hem Onc Scenery [address] [place] [address] 03/14/2023 Hem/Onc Treatment [facility]ology [facility] [place], Chair 7 Hem Onc Scenery [address] [place] [address] 03/20/2023 Imaging Radiology 03/20/2023 Imaging Radiology 04/03/2023 Office Visit Cardiology Benjamin Bonilla MD [address] [place] [address] 04/09/2023 Office Visit Family Medicine Joe Peng DO [address] [place] [address] 06/18/2023 Telemedicine Gastroenterology Syl Cohen DO [address] [place] [address] Scheduled Procedures Name Priority Associated Diagnoses Date/Ti [...] (HCC)- Primary Acute myeloid leukemia, in relapse Leukemia cutis (HCC) Other leukemia of unspecified cell type, without mention of having achieved remission S/P bone marrow transplant (HCC) Bone marrow replaced by transplant Encounter for antineoplastic chemotherapy documented in this encounter Advance Directives Latest Code Status on File Code Status Date Activated Date Inactivated Comments Full Code 04/02/2017 4:50 AM 04/17/2017 3:02 PM This order reflects the patients wishes and were consensually agreed upon. Question Answer Comments Discussion of Advance Directives occurred with: Family Does the patient have a Living Will? No Does the patient have Health Care Power of Wrapping Machine Operator? No Code Status History Code Status Date Activated Date Inactivated Comments Full Code 06/15/2016 5:56 PM 08/09/2016 8:19 PM This order reflects the patients wishes and were consensually agreed upon. Question Answer Comments Discussion of Advance Directives occurred with: Patient Does the patient have a Living Will? No Does the patient have Health Care Power of Wrapping Machine Operator? No Full Code 05/15/2016 3:18 AM 06/08/2016 6:42 PM This order reflects the patients wishes and were consensually agreed upon. Question Answer Comments Discussion of Advance Directives occurred with: Not Discussed Care Teams Web Support Engineer Relationship Specialty Start Date End Date Joe Peng, DO [address] [place] [address] PCP - General Family Medicine 05/19/18 documented as of this encounter
--- OUTSIDE RECORDS SUMMARY | 2023-08-22 00:39 | External Medical Summary ---
Author Name Unknown Address Unknown Organization K[facility] [place] [address] Laboratory Report Ordering Provider Test Date Status APRYL MARINELLI 03/11/2023 08:23:58 Final Observation Date Value Abnormality Reference (Units ) Status WBC, Total 03/11/2023 08:23:58 3.96 Below low normal 4. 00-10.80 (K/uL) Final RBC 03/11/2023 08:23:58 3.34 3.85-5.15 (M/uL) Final Hemoglobin 03/11/2023 08:23:58 11.8 Below low normal 12 .0-15.3 (g/dL) Final HCT 03/11/2023 08:23:58 35.8 Below low normal 36. 0-45.2 (%) Final MCV 03/11/2023 08:23:58 107.2 81.5-97.5 (fL) Final MCH 03/11/2023 08:23:58 35.3 27.0-34.0 (pg) Final MCHC 03/11/2023 08:23:58 33.0 32.0-36.0 (g/dL) Final RDW 03/11/2023 08:23:58 14.5 11.5-15.5 (%) Final Platelets 03/11/2023 08:23:58 298 140-400 (K /uL) Final Results rechecked.
null MPV 03/11/2023 08:23:58 9.4 6.6-11.1 ( fL) Final Performing Location [facility] [place] [address]
--- OUTSIDE RECORDS SUMMARY | 2023-08-22 00:39 | External Medical Summary ---
Author Name Unknown Address Unknown Organization K[facility] [place] [address] Laboratory Report Ordering Provider Test Date Status APRYL MARINELLI 03/11/2023 08:23:58 Final Observation Date Value Abnormality Reference (Units ) Status SYNC LEUKOCYTES IN BLOOD BY AUTOMATED COUNT 03/11/2023 08:23:58 3.96 Below low normal 4.00-10.80 (K/uL) Final Segs 03/11/2023 08:23:58 46.4 40.0-75.0 (%) Final Lymphs % 03/11/2023 08:23:58 38.6 18.0-42.0 (%) Final Monos 03/11/2023 08:23:58 5.5 1.0-11.0 (%) Final Eosinophils 03/11/2023 08:23:58 5.9 0.0-6.0 (%) Final Basos 03/11/2023 08:23:58 3.6 Above high normal 0.0-2.0 (%) Final Absolute Segs 03/11/2023 08:23:58 1.96 1.80-7.70 (K/uL) Final Lymphs, absolute 03/11/2023 08:23:58 1.63 1.00-4.80 (K/ul) Final Monos, Abs 03/11/2023 08:23:58 0.23 0.00-1.10 (K/uL) Final Eos, Abs 03/11/2023 08:23:58 0.25 0.00-0.70 (K/uL) Final Basos, Abs 03/11/2023 08:23:58 0.15 0.00-0.20 (K/uL) Final Performing Location [facility] [place] [address]
--- OUTSIDE RECORDS SUMMARY | 2023-08-22 00:39 | External Medical Summary | Summary of Care ---
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); Hypomagnesemia [...] 016 07/31/2017 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 encounter 02/12/2012 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 0 02/12/2012 04/27/2015 Overview: ICD-10 update of inactive term Other disorder of menstruati on and other abnormal bleeding from female genital tract 09/16/2007 04/27/2015 Uterine leiomyoma 09/16/2007 04/27/2015 documented as of this encounter (statuses as of 03/11/2023) Immunizations Name Administration Dates Next Due COVID-19 mRNA, LNP-s, No Pre serve, 2-Dose Series ([employer]) 05/08/2021,08/29/2020,08/08/2020 DTaP - Dipth/Tet/Acell Pertussis 12/25/2017,10/04,09/25/2017 IPV [...] Encounters Date Type Specialty Care Team Description 03/11/2023 Office Visit Hematology Oncology NisreenCorbin MD [address] [place] [address] Arrived 03/11/2023 Hem/Onc Treatment Hematology Oncology Arrived 03/12/2023 Hem/Onc Treatment Hematology Oncology [place], Chair 6 Hem Onc Scenery [address] [place] [address] 03/13/2023 Hem/Onc Treatment Hematology Oncology [place], Chair 7 Hem Onc Scenery [address] [place] [address] 03/14/2023 Hem/Onc Treatment Hematology Oncology [place], Chair 7 Hem Onc Scenery [address] [place] [address] 03/20/2023 Imaging Radiology 03/20/2023 Imaging Radiology 04/03/2023 Office Visit Cardiology Benjamin Bonilla MD [address] [place] [address] 04/09/2023 Office Visit Family Medicine Joe Peng DO [address] [place] [address] 06/18/2023 Telemedicine Gastroenterology Syl Cohen, [address] [place] [address] Pending Results Name Type Priority Associated Diagnoses Date /Time CBC WITH WBC DIFFERENTIAL Lab STAT 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) Hypomagnesemia 03/11/2023 8:23 AM EDT COMPREHENSIVE METABOLIC PANEL Lab STAT 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) Hypomagnesemia 03/11/2023 8:23 AM EDT MAGNESIUM Lab STAT 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) Hypomagnesemia 03/11/2023 8:23 AM EDT CBC Lab STAT 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 No Code Status History Code Status Date Activated Date Inactivated Comments Full Code 06/15/2016 5:56 PM 08/09/2016 8:19 PM This order reflects the patients wishes and were consensually agreed upon. Question Answer Comments Discussion of Advance Directives occurred with: Patient Does the patient have a Living Will? No Does the patient have Health Care Power of Home Appliance Installer? No Full Code 05/15/2016 3:18 AM 06/08/2016 6:42 PM This order reflects the patients wishes and were consensually agreed upon. Question Answer Comments Discussion of Advance Directives occurred with: Not Discussed Care Teams Programmer Or Analyst Relationship Specialty Start Date End Date Joe Peng, DO [address] [place] [address] PCP - General Family Medicine 05/19/18 documented as of this encounter
--- OUTSIDE RECORDS SUMMARY | 2023-08-22 00:39 | External Medical Summary | Summary of Care ---
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)*; Hypomagnesemia Allergies Active Allergy Reactions Severity Noted Date Comments Amoxicillin Nausea/vomiting 11/14/2015 Penicillins Nausea/vomiting Low 08/12/2007 tolerated cephalosporins in past Other reaction(s): Nausea Only Other reaction(s): "makes me nervous", Nausea documented as of this encounter (statuses as of 03/06/2023) Medications Medication Sig Dispensed Refills Start Date [...] as of this encounter (statuses as of 03/06/2023) Active Problems Problem Noted Date Hypotension 06/19/2022 [...] as of this encounter (statuses as of 03/06/2023) Resolved Problems Problem Noted Date Resolved Date [...] as of this encounter (statuses as of 03/06/2023) Immunizations Name Administration Dates Next Due COVID-19 mRNA, LNP-s, No Pre serve, 2-Dose Series ([employer]) 05/08/2021,08/29/2020,08/08/2020 DTaP - Dipth/Tet/Acell Pertussis 12/25/2017,10/04,09/25/2017 [...] Date Type Specialty Care Team Description 03/11/2023 Laboratory Laboratory [facility], [facility] [address] [place] [address] 03/11/2023 Office Visit Hematology Oncology Corbin Nielson MD [address] [place] [address] 03/11/2023 Hem/Onc Treatment Hematology Oncology 03/12/2023 Hem/Onc Treatment Hematology Oncology [place], Chair 6 Hem Onc Scenery [address] [place] [address] 03/13/2023 Hem/Onc Treatment Hematology Oncology [place], Chair 7 Hem Onc Scenery [address] [place] [address] 03/14/2023 Hem/Onc Treatment Hematology Oncology [place], Chair 7 Hem Onc Scenery [address] [place] [address] 03/20/2023 Imaging Radiology 03/20/2023 Imaging Radiology 04/03/2023 Office Visit Cardiology Benjamin Bonilla MD [address] [place] [address] 04/09/2023 Office Visit Family Medicine Joe Peng DO [address] [place] [address] 06/18/2023 Telemedicine Gastroenterology Syl Cohen DO [address] [place] [address] Scheduled Orders Name Type Priority Associated Diagnoses Orde r Schedule CBC WITH WBC DIFFERENTIAL Lab STAT 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) Hypomagnesemia Every Month for 20 Occurrences starting 03/06/2023 until 03/06/2024 COMPREHENSIVE METABOLIC PANEL Lab STAT 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 No Code Status History Code Status Date Activated Date Inactivated Comments Full Code 06/15/2016 5:56 PM 08/09/2016 8:19 PM This order reflects the patients wishes and were consensually agreed upon. Question Answer Comments Discussion of Advance Directives occurred with: Patient Does the patient have a Living Will? No Does the patient have Health Care Power of Pickling Tank Operator? No Full Code 05/15/2016 3:18 AM 06/08/2016 6:42 PM This order reflects the patients wishes and were consensually agreed upon. Question Answer Comments Discussion of Advance Directives occurred with: Not Discussed Care Teams Jockey Room Custodian Relationship Specialty Start Date End Date Joe Peng, [address] [place] [address] PCP - General Family Medicine 05/19/18 documented as of this encounter
--- OUTSIDE RECORDS SUMMARY | 2023-08-22 00:39 | External Medical Summary ---
Author Name Unknown Address Unknown Organization [id number] [place] [address] Laboratory Report Ordering Provider Test Date Status APRYL MARINELLI 03/11/2023 08:23:58 Final Observation Date Value Abnormality Reference (Units ) Status Nucleated erythrocytes/100 leukocytes [Ratio] in Blood by Automated count 03/11/2023 08:23:58 Final Performing Location [facility] [place] [address]
--- OUTSIDE RECORDS SUMMARY | 2023-08-22 00:39 | External Medical Summary | Summary of Care ---
Author Name Unknown Organization [facility] Address [address] [place] [address] Phone [phone] Care Team Providers Care Director Of Psychiatry Name Role Phone Joe Peng DO Primary Care Provider [phone] Reason for Visit * Reason Comments Follow Up Diarrhea- chronic Encounter Details Date Type Department Care Team Description 02/26/2023 Office Visit Gastroenterology, [facility] [address] [place] [address] Syl Cohen DO [address] [place] [address] Chronic diarrhea*; AML (acute myeloid leukemia) with failed remission (HCC); Autoimmune hepatitis (HCC); Alkaline phosphatase elevation Allergies Active Allergy Reactions Severity Noted Date Comments Amoxicillin Nausea/vomiting 11/14/2015 Penicillins Nausea/vomiting Low 08/12/2007 tolerated cephalosporins in past Other reaction(s): Nausea Only Other reaction(s): "makes me nervous", Nausea documented as of this encounter (statuses as of 02/26/2023) Medications Medication Sig Dispensed Refills Start Date [...] 2 Active Ondansetron 8 MG Oral Tablet DisintegratingIndi [...] OR OTHERMEDICATIONS 90 Tablet 1 3 Active busPIRone HCl 10 MG Oral Tablet (Buspar) 0 3 02/27/20 23 Discontin ued(Medic ation List Clean Up) documented as of this encounter (statuses as of 02/26/2023) Active Problems Problem Noted Date Hypotension 06/19/2022 [...] as of this encounter (statuses as of 02/26/2023) Resolved Problems Problem Noted Date Resolved Date [...] as of this encounter (statuses as of 02/26/2023) Immunizations Name Administration Dates Next Due COVID-19 mRNA, LNP-s, No Pre serve, 2-Dose Series ([employer]) 05/08/2021,08/29/2020,08/08/2020 DTaP - Dipth/Tet/Acell Pertussis 12/25/2017,10/04,09/25/2017 IPV [...] Sign Reading Time Taken Comments Blood Pressure 118/70 02/26/2023 2:32 PM EDT Pulse 84 02/26/2023 2:32 PM EDT Temperature 37.1 C (98.7 F) 02/26/2023 2:32 PM ED T Respiratory Rate - - Oxygen Saturation 99% 02/26/2023 2:32 PM EDT Inhaled Oxygen Concentration - - Weight 49.9 kg (109 lb 14.4 oz) 02/26/2023 2:32 PM EDT Height - - Body Mass Index 17.47 11/03/2022 3:46 PM EDT documented in this [...] (15 years old or older) Yes 06/15/20 Cognitive Status Response Date of Assessm ent Because of a physical, menta l, or emotional condition, do you have serious difficulty concentrating, remembering, or making decisions? (5 years old or older No 06/15/2016 documented as of this encounter Progress Notes * Syl Cohen, DO - 02/26/2023 2:29 PM EDT CC: chronic diarrhea HPI: 68 year old [...] as sinusoidal dilation. She was admitted to [facility] on 12/30/15 due to wor sening fatigue and nausea. She was started empirically on corticosteroids and ursodiol. She had significant improvement in liver chemistries and symptoms. 01/26/16: She was seen in consultation by [...] with plans for a stem cell transplantat [facility] in a month or two. She is on dexamethasone 2 mg daily. Entocort was stopped. There hasbeen a mild increase in transaminases. 12/12/16: Stem cell transplant at [facility]. 03/31/17: Sepsis due to MSSA, requiring prolonged intubation and hospitalization at [facility]. During hospitalization, marked increases of transaminases noted consistent with shock liver. 05/14/17: She is now recovering. She is on prednisone 50 mg/d and LFT's are improving. She is due for a visit to [facility] tomorrow. 09/05/17: She is now off immunomodulator medications and on just tapered to prednisone 5 mg daily. Her most recent LFT's showed ALT < 2x normal. She continues to get stronger with PT. 12/09/17: She is doing well, with resolution of jaundice. She is on prednisone 2.5 mg daily. Most recent LFT's (10/2017 from [place]) Bili 0.6, ALT 59, AST 63, ALK [...] constipated. Colonoscopy 05/26 - several small adenomas Having problems with loose stool. Was taking fiber gummies once a week. Then stopped it. Now having4+ soft/loose stools a day off the fiber. ROS: GEN: no weight loss, fever, fatigue [...] performed by Chandana Raymond MD at OR [facility] BONE MARROW ASPIRATION 08/02/2016 BONE MARROW BIOPSY 08/02/2016 COLONOSCOPY, DIAGNOSTIC (RECTUM) 06/04/2014 diverticulosis, repeat 5 yrs COLONOSCOPY, DIAGNOSTIC (RECTUM) 05/18/2019 adenomatous & hyperplastic polyp, repeat 3 yrs/[facility] COLONOSCOPY, DIAGNOSTIC (RECTUM) 05/24/2022 benign adenomatous polyps, repeat 3 yrs / COLONOSCOPY FLEXIBLE PROXIMAL DIAGNOSTIC performed by Syl Cohen DO at ENDOSCOPY [facility] EGD, FLEXIBLE, DIAGNOSTIC 01/11/2016 normal bx/ESOPHAGOGASTRODUODENOSCOPY (EGD), FLEXIBLE, TRANSORAL, DIAGNOSTIC performed by Cam Ellis MD at ENDOSCOPY [facility] EGD, FLEXIBLE, DIAGNOSTIC 05/18/2019 normal bx/[facility] FISSURECTOMY W/ SPHINCTEROTOMY INFORMATION stem cell transplant , 12/19 IR BIOPSY 12/28/2015 TRANSCATHETER BIOPSY performed by Haris Tim MD at RADIOLOGY [facility] MISCELLANEOUS ORDER ([facility] ONLY) N/A 04/01/2017 REMOVAL OF [place] CATHETER [facility] DR. DAVIS 04/01/17 [facility] ARTHROSCOPY [...] Grandfather (Paternal) Breast Cancer Cousin (Maternal) 30s LMP 03/20/2009 GENERAL: well developed and well nourished in no acute distress SKIN: no rashes, ulcers, or spider angiomata HEENT: normocephalic, sclerae clear, pharynx normal NECK: supple, no masses or thyroid enlargement LUNGS: clear to auscultation and percussion HEART: regular rate & rhythm, no murmurs and no gallops ABDOMEN: non-tender without guarding or rebound, soft, normo-active bowel sounds, no masses, no hepatosplenomegaly, no rebound or guarding, no bruits EXTREMITIES: no palmar erythema, no edema, no skin discoloration, no clubbing, no cyanosis NEURO: no lateralizing findings, Sensory/Motor grossly normal ASSESSMENT/PLAN: Relapsed AML - being managed at [facility] as well as Dr. Nisreen GREEN - LFTs stable Chronic diarrhea - related to IBS. Discussed restarting fiber with increased frequency. Trial of overy 3 days. Ok to use Imodium PRN History of polyps - due for repeat colonoscopy in 2024 documented in this encounter Nursing Notes * Nadia Yeh LPN - 02/26/2023 2:33 PM EDT Patient identified by name and date of . Chief Complaint Patient presents with Follow Up Diarrhea- chronic Pt stating that she is having 4 Bm's a day, the first two being normally solid and the rest of the day they are liquid stools. Pt was taking fiber gummies took to many and got constipated. Now pt only takes a gummy every 3 weeks. Pt statin that lately she is also waking up in the middle of the night to have a Bm and she never had to do that In the past. No history of c diff. Pt has city water. Pthas not had any recent antibiotic therapy use. Pt states that she did have a toe amputation a few months ago( 6 months or so) and was on a antibiotic for this. Pt still taking chemo one week a month.( for 4 days) Pt has been on chemo for 5 years. documented in this encounter Plan of Treatment Upcoming Encounters Date Type Specialty Care Team Description 03/11/2023 Laboratory Laboratory [facility], Lab Scenery [address] [place] [id number] 03/11/2023 Office Visit Hematology Oncology Corbin Nielson MD [address] [place] [address] 03/11/2023 Hem/Onc Treatment Hematology Oncology 03/12/2023 Hem/Onc Treatment Hematology Oncology [place], Chair 6 Hem Onc Scenery [address] [place] [address] 03/13/2023 Hem/Onc Treatment Hematology Oncology [place], Chair 7 Hem Onc Scenery [address] [place] [address] 03/14/2023 Hem/Onc Treatment Hematology Oncology [place], Chair 7 Hem Onc Scenery [address] [place] [address] 04/03/2023 Office Visit Cardiology Benjamin Bonilla MD [address] [place] [address] 04/09/2023 Office Visit Family Medicine Joe Peng DO [address] [place] [address] 06/18/2023 Telemedicine Gastroenterology Syl Cohen, DO [address] [place] [address] Scheduled Procedures Name Priority Associated Diagnoses Date/Ti me COLONOSCOPY FLEXIBLE PROXIMAL DIAGNOSTIC Recall History of colon polyps Health Maintenance Due Date Last Done Comments Zoster Vaccines (1 of 2) 01/03/1975 DIABETES-EYE EXAM 11/25/2019 11/24/2018 COVID-19 Vaccine (4 - Pfizer risk series) 07/03/2021 05/08/2021, 08/29/2020, 08/08/2020 DIABETES-FOOT EXAM 01/10/2022 01/10/2021, 1 , 05/19/2018 Albumin/Creatinine Ratio 12/04/2022 022, 08/15/2020, 08/20/2018 Mammogram 02/21/2023 02/21/2022, 02/02, 02/24/2020, Additional history exists Influenza Vaccine (FLU shot) (#1) 2023 06/18/2022, 05/29/2021, 04/27/2020, Additional history exists HbA1c 06/12/2023 12/10/2022, 05/06, 12/04/2021, Additional history exists Depression Screening, Annual for Pts 12 and Over 06/19/2023 06/19/2022 TSH 12/11/2023 12/10/2022, 050 09/2021, 08/31/2020, Additional history exists GFR 02/12/2024 02/11/2023, 12/2022, 12/10/2022, Additional history exists COLONOSCOPY-EVERY 3 YRS AGES [...] achieved remission Autoimmune hepatitis (HCC) Autoimmune hepatitis Alkaline phosphatase elevation Other nonspecific abnormal serum enzyme levels documented in this encounter Advance Directives Latest [...] patient have Health Care Power of Regional Facilities Manager? No Code Status History Code Status Date Activated Date Inactivated Comments Full Code 06/15/2016 5:56 PM 08/09/2016 8:19 PM This order reflects the patients wishes and were consensually agreed upon. Question Answer Comments Discussion of Advance Directives occurred with: Patient Does the patient have a Living Will? No Does the patient have Health Care Power of Regional Facilities Manager? No Full Code 05/15/2016 3:18 AM 06/08/2016 6:42 PM This order reflects the patients wishes and were consensually agreed upon. Question Answer Comments Discussion of Advance Directives occurred with: Not Discussed Care Teams Director Of Psychiatry Relationship Specialty Start Date End Date Joe Peng, DO [address] [place] [address] PCP - General Family Medicine 05/19/18 documented as of this encounter
--- OUTSIDE RECORDS SUMMARY | 2023-08-22 00:39 | External Medical Summary | Summary of Care ---
Author Name Unknown Organization [facility] Address [address] [place] [address] Phone [phone] Care Team Providers Care Chain Saw Mechanic Name Role Phone Joe Peng DO Primary Care Provider [phone] Encounter Details Date Type Department Care Team Description 03/07/2023 Orders Only Hematology/Oncology, [facility] [address] [place] [address] Corbin Nielson MD [address] [place] [address] Allergies Active Allergy Reactions Severity Noted Date Comments Amoxicillin Nausea/vomiting 11/14/2015 Penicillins Nausea/vomiting Low 08/12/2007 tolerated cephalosporins in past Other reaction(s): Nausea Only Other reaction(s): "makes me nervous", Nausea documented as of this encounter (statuses as of 03/07/2023) Medications Medication Sig Dispensed Refills Start Date [...] as of this encounter (statuses as of 03/07/2023) Active Problems Problem Noted Date Hypotension 06/19/2022 [...] as of this encounter (statuses as of 03/07/2023) Resolved Problems Problem Noted Date Resolved Date [...] as of this encounter (statuses as of 03/07/2023) Immunizations Name Administration Dates Next Due COVID-19 mRNA, LNP-s, No Pre serve, 2-Dose Series ([employer]) 05/08/2021,08/29/2020,08/08/2020 DTaP - Dipth/Tet/Acell Pertussis 12/25/2017,10/04,09/25/2017 IPV [...] Specialty Care Team Description 03/11/2023 Laboratory Laboratory Celso Armstrong [address] [place] [address] 03/11/2023 Office Visit Hematology Oncology Corbin Nielson MD [address] [place] [address] 03/11/2023 Hem/Onc Treatment Hematology Oncology 03/12/2023 Hem/Onc Treatment Hematology Oncology [place], Chair 6 Hem Onc Scenery [address] [place] [address] 03/13/2023 Hem/Onc Treatment Hematology Oncology [place], Chair 7 Hem Onc Scenery [address] [place] [address] 03/14/2023 Hem/Onc Treatment Hematology Oncology [place], Chair 7 Hem Onc Scenery [address] [place] [address] 03/20/2023 Imaging Radiology 03/20/2023 Imaging Radiology 04/03/2023 Office Visit Cardiology Benjamin Bonilla MD [address] [place] [address] 04/09/2023 Office Visit Family Medicine Joe Peng DO [address] [place] [address] 06/18/2023 Telemedicine Gastroenterology Syl Cohen DO [address] [place] [address] Scheduled Procedures Name Priority Associated Diagnoses Date/Ti [...] 02/12/2024 02/11/2023, 12/2022, 12/10/2022, Additional history exists Mammogram 02/23/2024 [...] the patient have Health Care Power of Computational Scientist? No Code Status History Code Status Date Activated Date Inactivated Comments Full Code 06/15/2016 5:56 PM 08/09/2016 8:19 PM This order reflects the patients wishes and were consensually agreed upon. Question Answer Comments Discussion of Advance Directives occurred with: Patient Does the patient have a Living Will? No Does the patient have Health Care Power of Computational Scientist? No Full Code 05/15/2016 3:18 AM 06/08/2016 6:42 PM This order reflects the patients wishes and were consensually agreed upon. Question Answer Comments Discussion of Advance Directives occurred with: Not Discussed Care Teams Chain Saw Mechanic Relationship Specialty Start Date End Date Joe Peng, DO [address] [place] [address] PCP - General Family Medicine 05/19/18 documented as of this encounter
--- OUTSIDE RECORDS SUMMARY | 2023-08-22 00:39 | External Medical Summary ---
Author Name Unknown Address Unknown Organization [facility] [address] [place] [address] Laboratory Report Ordering Provider Test Date Status APRYL MARINELLI 03/11/2023 08:23:58 Final Observation Date Value Abnormality Reference (Units ) Status BUN 03/11/2023 08:23:58 9 6-20 (mg/dL) Final Creatinine 03/11/2023 08:23:58 0.9 0.5-1.0 (mg/dL) Final Glomerular filtration rate/1.73 sq M.predicted [Volume Rate/Area] in Serum, Plasma or Blood by Creatinine-based formula (CKD-EPI) 03/11/2023 08:23:58 70 >=60 (mL/min) Final eGFR is calculated based on the CKD-EPI 2020 equation SODIUM 03/11/2023 08:23:58 141 135-146 (m mol/L) Final Potassium 03/11/2023 08:23:58 4.0 3.5-5.1 (m mol/L) Final Cl 03/11/2023 08:23:58 105 98-107 (mm ol/L) Final CO2 03/11/2023 08:23:58 29 22-32 (mmo l/L) Final Anion gap 03/11/2023 08:23:58 7 7-15 (mmol /L) Final Glucose 03/11/2023 08:23:58 76 70-120 (mg /dL) Final Albumin 03/11/2023 08:23:58 3.5 Below low normal 3.8 -5.0 (g/dL) Final AST (Aspartate aminotransferase) 03/11/2023 08:23:58 24 10-35 (U/L) Fin al Alk Phos 03/11/2023 08:23:58 215 Above high normal 35 -130 (U/L) Final Bilirubin, Total 03/11/2023 08:23:58 0.4 <=1 .2 (mg/dL) Final Calcium 03/11/2023 08:23:58 9.1 8.4-10.2 ( mg/dL) Final Protein 03/11/2023 08:23:58 6.7 6.0-8.3 (g /dL) Final ALT (Alanine aminotransferase) 03/11/2023 08:23:58 15 10-35 (U/L) Dieudonne clemens Performing Location [facility] [place] [address]
--- OUTSIDE RECORDS SUMMARY | 2023-08-22 00:39 | External Medical Summary ---
Author Name Unknown Address Unknown Organization [facility] [address] [address] Laboratory Report Ordering Provider Test Date Status APRYL MARINELLI 03/11/2023 08:23:58 Final Observation Date Value Abnormality Reference (Units ) Status Magnesium 03/11/2023 08:23:58 1.7 1.5-2.6 (m g/dL) Final Performing Location [facility] [place] [address]
--- NOTE | 2023-08-22 00:49 | CT Scan Report ---
Exam(s): CT HEAD Without Contrast EXAM: CT Head Without Intravenous Contrast CLINICAL HISTORY: Reason for exam: neuro deficit, acute stroke suspected. TECHNIQUE: Axial computed tomography images of the head/brain without intravenous contrast. CTDI is 34.46 mGy and DLP is 546.36 mGy-cm. Automated exposure control was utilized for the study. A dose lowering technique was utilized adhering to the principles of ALARA. COMPARISON: Comparison made to prior head CT from March 31, 2017. FINDINGS: Brain: Unremarkable. No hemorrhage. Mild nonspecific white changes.. No edema. Prominent but turgid gland with convex superior margin measuring 2.8 mm in height concern for pituitary adenoma. Small bilateral choroidal fissure cyst. Ventricles: Moderate ventriculomegaly. Bones/joints: Unremarkable. No acute fracture. Soft tissues: Bilateral lens replacements. Sinuses: Chronic ethmoid sinusitis. No acute sinusitis. Mastoid air cells: Unremarkable as visualized. No mastoid effusion. IMPRESSION: No evidence of acute intracanal pathology. Findings concerning for pituitary adenoma. Recommend correlation with patient's hormonal status. Electronically signed by: Maddy Greer MD 08/22/23 00:48 AM
[2023-08-22] MEDS: MAGNESIUM SULFATE / D5W 1 GM/100 ML BAG IV SCH ×2 (01:02→03:09)
--- NOTE | 2023-08-22 02:53 | History & Physical Report ---
Date of Service August 22, 2023 Assessment & Plan (1) Acute alteration in mental status: Plan: 68-year-old female with past medical history significant for diet-controlled diabetes, hypothyroidism, history of hypokalemia, hypomagnesemia, history of hypertension, Takotsubo cardiomyopathy, autoimmune hepatitis, GERD, chronic diarrhea, amputation of left great toe, vasovagal syncope, history of acute myeloid leukemia, leukemia cutis, GERD anxiety disorder, presents with confusion. Patient has history of acute myelogenous leukemia and received both induction and reinduction intensive systemic chemotherapy. And also had allogenic hematopoietic stem cell transplant. Posttransplant course was complicated by severe sepsis secondary to MSSA bacteremia, ARF and shock liver which have resolved. 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 Currently tolerating decitabine every 4 weeks. She had her chemo yesterday. In the nighttime around 8:45 PM patient seems confused she could not remember her name and she was not making sense as per . It lasted for 20 minutes. Came to the ER. Initial CT head no acute findings. Patient when examined initially she was sleeping and when aroused she was speaking in low-volume and was not making sense. But after short period time she was okay. Initially could not remember current date. Later she could tell the month and year. And is currently alert and oriented. Denies any headache. Vision is okay. Has some runny nose. Cough for last 2 days. No fever. Appetite is down. No difficulty swallowing. No nausea. Denies any chest pain or shortness of breath. No abdominal pain. Normal bowel and bladder movements. As per she fell during [place] time onto both knees. Since then she is using walker to ambulate. Hemodynamically stable. Saturating okay. Her COVID test came back positive. Patient states she had only 1 COVID booster. Altered mental status On and off Currently seems okay CT head no acute findings but shows 10.8 cm of possible pituitary adenoma COVID came back positive possible cause of altered mental status Will follow with MRI scan, neurochecks, neurology consult in a.m. for further recommendations COVID-positive COVID precautions Supportive care Currently saturating okay Possible pituitary adenoma Seems incidental finding on the CAT scan Will follow MRI scan Follow hormone studies Leukemia cutis Currently on chemo Follows with heme-onc Hypothyroidism On Synthyroid Will follow TSH Hypomagnesemia Replace Follow repeat labs Hypocalcemia Continue home calcium supplements Will follow vitamin D levels Hypertension Metoprolol succinate Anemia Hemoglobin 10.2 Possible from chemo Will check stool for Hemoccult Follow repeat labs Elevated alkaline phosphatase Will follow repeat labs Diabetes diet controlled will follow sugars follow hba1c levels. DVT prophylaxis Lovenox Disposition Med/tele Full code History of Present Illness Chief Complaint: Confusion Primary Care Provider: Joe Peng DO 68-year-old female with past medical history significant for diet-controlled diabetes, hypothyroidism, history of hypokalemia, hypomagnesemia, history of hypertension, Takotsubo cardiomyopathy, autoimmune hepatitis, GERD, chronic diarrhea, amputation of left great toe, vasovagal syncope, history of acute myeloid leukemia, leukemia cutis, GERD anxiety disorder, presents with confusion. Patient has history of acute myelogenous leukemia and received both induction and reinduction intensive systemic chemotherapy. And also had allogenic hematopoietic stem cell transplant. Posttransplant course was complicated by severe sepsis secondary to MSSA bacteremia, ARF and shock liver which have resolved. 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 Currently tolerating decitabine every 4 weeks. She had her chemo yesterday. In the nighttime around 8:45 PM patient seems confused she could not remember her name and she was not making sense as per . It lasted for 20 minutes. Came to the ER. Initial CT head no acute findings. Patient when examined initially she was sleeping and when aroused she was speaking in low-volume and was not making sense. But after short period time she was okay. Initially could not remember current date. Later she could tell the month and year. And is currently alert and oriented. Denies any headache. Vision is okay. Has some runny nose. Cough for last 2 days. No fever. Appetite is down. No difficulty swallowing. No nausea. Denies any chest pain or shortness of breath. No abdominal pain. Normal bowel and bladder movements. As per she fell during [place] time onto both knees. Since then she is using walker to ambulate. Hemodynamically stable. Saturating okay. Her COVID test came back positive. Patient states she had only 1 COVID booster. Past medical history. As mentioned above Past surgical history. Amputation left great toe. Bone marrow aspiration. Bone marrow biopsy. Colonoscopy. EGD. Fissurectomy with sphincterotomy. Stem cell transplant. Injection of lumbosacral spine. Removal of [place] catheter. Social history. . No smoking. Alcohol rarely. No drug use. Family history. Maternal cousin had breast cancer in 30s. Maternal grandmother had breast cancer. Mother had cancer. COPD. Stroke. Father had esophageal cancer. Heart attack. Hypertension. Sister has COPD. Thyroid disorder. Paternal grandfather had heart disorder. Paternal grandmother had heart disorder. Allergies Allergy/AdvReac Type Severity Reaction Status Date / Time amoxicillin AdvReac Mild Nausea Verified 08/22/23 01:45 Penicillins AdvReac Mild "makes me Verified 08/22/23 01:45 nervous" Home Medications Medication Instructions Recorded Confirmed Type acetaminophen 500 mg tablet 500 mg PO QID PRN Pain 08/22/23 08/22/23 History (Tylenol Extra Strength) bupropion HCl 150 mg 24 hr tablet, 150 mg PO QAM 08/22/23 08/22/23 History extended release bupropion HCl 300 mg 24 hr tablet, 300 mg PO QAM 08/22/23 08/22/23 History extended release buspirone 10 mg tablet 10 mg PO DIRECTED 08/22/23 08/22/23 History calcium carbonate 1,000 mg-vitamin 1 tab PO DAILY 08/22/23 08/22/23 History D3 20 mcg (800 unit) tablet cyanocobalamin (vitamin B-12) 1,000 mcg PO DAILY 08/22/23 08/22/23 History 1,000 mcg tablet (Vitamin B-12) cyanocobalamin (vitamin B-12) 1,000 mcg PO DAILY 08/22/23 08/22/23 History 1,000 mcg tablet (Vitamin B-12) fluoride (sodium) 1.1 % dental 1 applic PO HS 08/22/23 08/22/23 History paste gabapentin 300 mg capsule 600 mg PO BID 08/22/23 08/22/23 History gabapentin 300 mg capsule 600 mg PO BID 08/22/23 08/22/23 History hydrocodone 5 mg-acetaminophen 325 1 tab PO Q8 PRN Pain 08/22/23 08/22/23 Hi story mg tablet hydrocodone 5 mg-acetaminophen 325 1 tab PO TID PRN Pain 08/22/23 08/22/23 History mg tablet levothyroxine 150 mcg tablet 150 mcg PO DAILY 08/22/23 08/22/23 History levothyroxine 150 mcg tablet 150 mcg PO DAILY 08/22/23 08/22/23 History lorazepam 0.5 mg tablet 0.5 mg PO DAILY PRN Anxiety 08/22/23 08/22/23 History magnesium oxide 400 mg PO DIRECTED 08/22/23 08/22/23 History magnesium oxide 400 mg (241.3 mg 400 mg PO BID 08/22/23 08/22/23 History magnesium) tablet metoprolol succinate 25 mg 12.5 mg PO DAILY 08/22/23 08/22/23 History tablet,extended release 24 hr metoprolol succinate 25 mg 123.5 mg PO DAILY 08/22/23 08/22/23 History tablet,extended release 24 hr omeprazole 20 mg capsule,delayed 20 mg PO CQWK 08/22/23 08/22/23 History release omeprazole 20 mg capsule,delayed 20 mg PO DAILY 08/22/23 08/22/23 History release ondansetron 8 mg disintegrating 8 mg PO TID PRN Nausea And Vomiting 08/22/23 08/22/23 History tablet ondansetron 8 mg disintegrating 8 mg translingual Q8 PRN Nausea 08/22/23 08/22/23 History tablet potassium chloride 20 mEq 20 meq PO DAILY 08/22/23 08/22/23 History tablet,extended release potassium chloride 20 mEq 20 meq PO DAILY 08/22/23 08/22/23 History tablet,extended release prochlorperazine maleate 10 mg 10 mg PO Q6H PRN Nausea 08/22/23 08/22/23 History tablet (Compazine) Past Med/Surg History Medical History History of diabetes mellitus HX STEROID INDUCED DIABETES, NOW RESOLVED Low blood pressure Sepsis due to Pseudomonas species with acute organ dysfunction and septic shock this happened 100 days after the transplant CMV (cytomegalovirus infection) HX ? PT NOT SURE Autoimmune hepatitis Nausea and vomiting after administration of anesthetic agent Hypothyroidism AML (acute myeloblastic leukemia) diagnosed - CURRENT CHEMOTHERAPY/PORT RIGHT CHEST TMJ disease HX SURGERY, RESOLVED PROBLEM Depression Anxiety Migraine HX Takotsubo cardiomyopathy reason for metoprolol--follows with Dr. Bonilla Surgical History History of cataract surgery right S/P radiation therapy before bone marrow transplant 12-11-2016 Bone marrow replaced by transplant December 2016 History of amputation of toe left big toe History of hemorrhoidectomy History of colonoscopy History of esophagogastroduodenoscopy (EGD) History of vascular access device right APORT History of mandibular surgery TMJ sx--plate in right side of jaw History of tooth extraction History of wisdom tooth extraction History of cardiac cath 2012 in [place]---no stents Family History Sister Family history of diabetes mellitus Mother , age 84 Head and neck cancer COPD (chronic obstructive pulmonary disease) Father , age 75 Esophageal cancer Sister Vertigo Hypertension Sister Hypothyroidism Brother Combined hyperlipidemia Brother Colorectal cancer Brother Gout Brother No problems noted. 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 Head- atraumatic Eyes- PERRL. ENT- oropharynx clear Neck- supple, no JVD. Lungs- clear to auscultation no wheezing or crackles. Heart- regular rate and rhythm; no murmur, no gallop. Abdomen- normal bowel sounds, soft, nontender, no distension. Extremities- no pretibial edema, no erythema seen. Neuro- alert, oriented x 3; PERRL, no facial palsy; no dysarthria; motor 5/5 bilaterally; no pronator drift,coordination of movements normal. sensations intact. position sense intact. Skin- warm & dry Results & Data Results & Data Vital Signs (Past 12 Hours) Vital Signs Temp Pulse Resp BP Pulse Ox O2 Del Method 08/22/23 00:15 99 Room Air 08/22/23 00:00 78 14 139/83 94 Room Air 08/21/23 23:30 80 103/64 98 Room Air 08/21/23 23:00 78 16 98/61 L 100 Room Air 08/21/23 22:56 78 08/21/23 22:16 36.9 C 81 16 95/72 L 98 Room Air Diagnostic Findings Laboratory Results WBC 5.31 K/ul (4.8-10.8) 08/21/23 22:44 RBC 2.79 M/uL (4.20-5.40) L 08/21/23 22:44 Hgb 10.2 g/dl (12.0-16.0) L 08/21/23 22:44 Hct 30.7 % (37.0-47.0) L 08/21/23 22:44 MCV 110.0 fL (80.0-100.0) H 08/21/23 22:44 MCH 36.6 pg (25.0-34.0) H 08/21/23 22:44 MCHC 33.2 g/dL (32.0-36.0) 08/21/23 22:44 RDW Std Deviation 60.4 fL (36.4-46.3) H 08/21/23 22:44 RDW Coeff of Selam 14.8 % (11.5-14.5) H 08/21/23 22:44 Plt Count 217 K/uL (130-400) 08/21/23 22:44 MPV 8.9 fL (9.4-12.4) L 08/21/23 22:44 Immature Gran % (Auto) 1.1 % 08/21/23 22:44 Neut % (Auto) 80.6 % 08/21/23 22:44 Lymph % (Auto) 11.9 % 08/21/23 22:44 [place] % (Auto) 5.8 % 08/21/23 22:44 Eos % (Auto) 0.4 % 08/21/23 22:44 Baso % (Auto) 0.2 % 08/21/23 22:44 Neut # (Auto) 4.28 K/uL (1.40-6.50) 08/21/23 22:44 Lymph # (Auto) 0.63 K/uL (1.20-3.40) L 08/21/23 22:44 [place] # (Auto) 0.31 K/uL (0.11-0.59) 08/21/23 22:44 Eos # (Auto) 0.02 K/uL (0.00-0.50) 08/21/23 22:44 Baso # (Auto) 0.01 K/uL (0.00-0.20) 08/21/23:44 Immature Gran # (Auto) 0.06 K/uL (0.01-0.20) 08/21/23 22:44 PT 10.8 Seconds (9.0-12.0) 08/21/23 22:44 INR 1.0 (0.9-1.1) 08/21/23 22:44 APTT 35 Seconds (21-31) H 08/21/23 22:44 PTT Ratio 1.2 08/21/23 22:44 Sodium 137 mmol/L (136-145) 08/21/23 22:44 Potassium 4.0 mmol/L (3.5-5.1) 08/21/23 22:44 Chloride 108 mmol/L (98-107) H 08/21/23 22:44 Carbon Dioxide 22 mmol/L (21-32) 08/21/23 22:44 Anion Gap 7 (3-11) 08/21/23 22:44 BUN 12 mg/dl (6-23) 08/21/23 22:44 Creatinine 0.79 mg/dl (0.6-1.2) 08/21/23 22:44 Est Cr Clr Drug Dosing Not Reportable 08/21/23 22:44 Est GFR ( Amer) 89.8 ml/min 08/21/23 22:44 Est GFR (Non-Af Amer) 77.5 ml/min 08/21/23 22:44 BUN/Creatinine Ratio 15.2 (10-20) 08/21/23 22:44 Glucose 106 mg/dl (70-99(Fasting)) H 08/21/23 22:44 Lactate 0.7 mmol/L (0.4-2.0) 08/21/23 23:50 Calcium 8.0 mg/dl (8.6-10.3) L 08/21/23 22:44 Magnesium 1.3 mg/dl (1.7-2.4) L 08/21/23 22:44 Total Bilirubin 0.5 mg/dl (0.2-1.0) 08/21/23 22:44 AST 46 U/L (13-39) H 08/21/23 22:44 ALT 45 U/L (7-52) 08/21/23 22:44 Alkaline Phosphatase 212 U/L (34-104) H 08/21/23 22:44 Troponin I High Sens 8.6 pg/ml (0-14) 08/21/23 22:44 Total Protein 5.9 gm/dl (6.0-8.3) L 08/21/23 22:44 Albumin 3.4 gm/dl (3.4-5.0) 08/21/23 22:44 Globulin 2.5 gm/dl (2.5-4.0) 08/21/23 22:44 Albumin/Globulin Ratio 1.4 (0.9-2) 08/21/23 22:44 Urine Color Yellow 08/22/23 00:00 Urine Appearance Clear (Clear) 08/22/23 00:00 Urine pH 5.5 (4.5-7.5) 08/22/23 00:00 Ur Specific [place] 1.011 (1.000-1.030) 08/22/23 00:00 Urine Protein Negative (Negative) 08/22/23 00:00 Urine Glucose (UA) Negative (Negative) 08/22/23 00:00 Urine Ketones Negative (Negative) 08/22/23 00:00 Urine Blood Negative (Negative) 08/22/23 00:00 Urine Nitrite Negative (Negative) 08/22/23 00:00 Urine Bilirubin Negative (Negative) 08/22/23 00:00 Urine Urobilinogen Negative (Negative) 08/22/23 00:00 Ur Leukocyte Esterase Negative (Negative) 08/22/23 00:00 SARS-CoV-2 (PCR) POSITIVE (Negative) A* 01/17/24 23:[address] 08/21/23 22:45 Exam(s): CT HEAD Without Contrast EXAM: CT Head Without Intravenous Contrast CLINICAL HISTORY: Reason for exam: neuro deficit, acute stroke suspected. TECHNIQUE: Axial computed tomography images of the head/brain without intravenous contrast. CTDI is 34.46 mGy and DLP is 546.36 mGy-cm. Automated exposure control was utilized for the study. A dose lowering technique was utilized adhering to the principles of ALARA. COMPARISON: Comparison made to prior head CT from March 31, 2017. FINDINGS: Brain: Unremarkable. No hemorrhage. Mild nonspecific white changes.. No edema. Prominent but turgid gland with convex superior margin measuring 2.8 mm in height concern for pituitary adenoma. Small bilateral choroidal fissure cyst. Ventricles: Moderate ventriculomegaly. Bones/joints: Unremarkable. No acute fracture. Soft tissues: Bilateral lens replacements. Sinuses: Chronic ethmoid sinusitis. No acute sinusitis. Mastoid air cells: Unremarkable as visualized. No mastoid effusion. IMPRESSION: No evidence of acute intracanal pathology. Findings concerning for pituitary adenoma. Recommend correlation with patient's hormonal status. Electronically signed by: Maddy Greer MD 08/22/23 00:48 AM Code Status & VTE Plan VTE Prophylaxis Plan VTE Prophylaxis will be ordered: Yes
[2023-08-22] MEDS ORDERED: ACETAMINOPHEN 325 MG TAB PO PRN (03:26)
[2023-08-22] MEDS ORDERED: PROMETHAZINE HCL 12.5 MG in SODIUM CHLORIDE 0.9% 50 ML IV PRN (03:26)
[2023-08-22] MEDS ORDERED: NITROGLYCERIN SL 0.4 MG/TAB TAB SL PRN (03:26)
[2023-08-22] MEDS ORDERED: GADOBUTROL 65ML VIAL IV ONE (04:36)
[2023-08-22] MEDS: D5W AND NSS 1,000 ML IV SCH ×2 (04:57→15:08)
[2023-08-22] MEDS: LEVOTHYROXINE SODIUM 150 MCG TABLET PO SCH (06:04)
--- NOTE | 2023-08-22 07:02 | Communication Note ---
Date of Service: August 22, 2023 Pt was seen while still down in the ED. at bedside. AAOx3 on my exam. still noting periods of confusion but states overall better. Head CT noting concern for pituitary adenoma- notified overnight by [employer]. Discussion with pt and in the room about this. MRI brain noting "Suboptimal evaluation of the pituitary gland secondary to the study ordered. No sellar or suprasellar mass identified." For further workup, consider dedicated pituitary imaging to definitively rule out. Appreciate neuro recs- carotid US ordered For further pt details, please see History and Physical from the same date of service.
--- NOTE | 2023-08-22 07:37 | Magnetic Resonance Report ---
MR brain wo/w con HISTORY: 68 years-old Female pituitasry adenoma? confusion acute altered mental status with confusio n COMPARISON: Head CT 08/21/2023, and 05/14/2016 TECHNIQUE: Multiplanar multisequence MRI of the brain was obtained with and without the use of IV con trast. FINDINGS: There is no restricted diffusion to suggest acute or subacute infarct. Midline structures appear unre markable. Motion degraded exam. Degenerative changes of the imaged cervical spine. Suboptimal evaluat ion of the pituitary gland secondary to the study ordered. No sellar or suprasellar mass identified. Mildly motion degraded exam. No acute intracranial hemorrhage, midline shift, abnormal extra-axial co llection, hydrocephalus or intra-axial mass. There is no pathologic blooming artifact on the T2*serie s. Involutional changes with mild to moderate T2/FLAIR hyperintense foci throughout the white matter. Cerebral venous sinuses and major arterial flow voids appear patent. The skull, orbits and soft tissu es are unremarkable. Prior bilateral lens repair. Small right mastoid effusion. Mild mucosal thickeni ng of the paranasal sinuses. No abnormal enhancement. IMPRESSION: 1. No acute intracranial abnormality. No acute subacute infarct. 2. Involutional changes with chronic microvascular ischemic disease. 3. No abnormal enhancement. 4. No sellar or suprasellar mass identified on this exam. ACT 112: Negative or not required by law. The above report was generated using voice recognition software. It may contain grammatical, syntax o r spelling errors. Electronically signed by: Reinier Magaña M.D. 08/22/2023 7:35 AM
--- NOTE | 2023-08-22 07:53 | XRay Report ---
SINGLE VIEW CHEST CLINICAL HISTORY: Change in mental status. FINDINGS: An AP, portable, upright chest radiograph is compared to study dated 04/01/2017. A right-mari ed central venous infusion port is new from previous. The cardiomediastinal silhouette is top normal for projection noting atherosclerotic calcification of the thoracic aorta. The pulmonary vasculature is noncongested. Chronic interstitial thickening is similar to previous. The lungs and pleural spaces are clear. No pneumothorax is seen. The skeletal structures are osteopenic. The bony thorax is gross ly intact. IMPRESSION: No acute cardiopulmonary abnormality is identified. ACT 112: Negative or not required by law. Electronically signed by: Adolph Curry M.D. 08/22/2023 7:51 AM
[2023-08-22 08:13] LABS: Basophils # (auto) 0.01 K/uL (0.00-0.20); Basophils % (auto) 0.2 %; Eosinophils # (auto) 0.01 K/uL (0.00-0.50); Eosinophils % (auto) 0.2 %; Hematocrit (blood only) 30.2 % (37.0-47.0); Immature Granulocytes # (auto) 0.07 K/uL (0.01-0.20); Immature Granulocytes % (auto) 1.4 %; Lymphocytes # (auto) 0.67 K/uL (1.20-3.40); Mean Corpuscular Hemoglobin 36.9 pg (25.0-34.0); Mean Corpuscular Hgb Conc 33.1 g/dL (32.0-36.0); Mean Corpuscular Volume 111.4 fL (80.0-100.0); Mean Platelet Volume 8.7 fL (9.4-12.4); Monocytes # (auto) 0.29 K/uL (0.11-0.59); Monocytes % (auto) 5.6 %; Neutrophils # (auto) 4.12 K/uL (1.40-6.50); Neutrophils % (auto) 79.6 %; Platelet Count 202 K/uL (130-400); RDW Coefficient of Variation 14.9 % (11.5-14.5); Red Blood Count 2.71 M/uL (4.20-5.40); White Blood Count 5.17 K/ul (4.8-10.8)
[2023-08-22 08:31] LABS: Albumin Level 3.2 gm/dl (3.4-5.0); BUN Creatinine Ratio 14.9 (10-20); Bilirubin Direct 0.1 mg/dl (0-0.2); Bilirubin,Total 0.4 mg/dl (0.2-1.0); Calcium 8.1 mg/dl (8.6-10.3); Creatinine Clr Calc Pharmacy 69.5 ml/min; Est GFR (African American) 105.4 ml/min; Magnesium 2.2 mg/dl (1.7-2.4); Phosphorus 3.5 mg/dl (2.5-4.9); Total Protein 5.6 gm/dl (6.0-8.3)
[2023-08-22 08:39] LABS: Cortisol AM 6.05 mcg/dl (6.2-22.6)
[2023-08-22 08:40] LABS: Macrocytosis Present
[2023-08-22 08:47] LABS: Prolactin 7.7 ng/ml
[2023-08-22 08:57] LABS: Estimated Average Glucose 88 mg/dl; Hemoglobin A1C 4.7 % (4.5-5.6)
[2023-08-22] MEDS: PANTOprazole 40 MG TAB PO SCH (08:58)
[2023-08-22] MEDS: busPIRone 5 MG TAB PO SCH ×2 (08:58→20:33)
[2023-08-22] MEDS: GABAPENTIN 300 MG CAP PO SCH ×2 (08:58→20:34)
[2023-08-22] MEDS: MAGNESIUM OXIDE 400 MG TAB PO SCH ×2 (08:58→20:34)
[2023-08-22] MEDS: CALCIUM 600MG + VIT D 400 IU TAB PO SCH (08:58)
[2023-08-22] MEDS: ENOXAPARIN INJ 40 MG/0.4 ML SYR SQ SCH (08:59)
[2023-08-22] MEDS: POTASSIUM CHLORIDE CRTAB 20 MEQ TABCR PO SCH (08:59)
[2023-08-22] MEDS: CYANOCOBALAMIN (B-12) 500 MCG TABLET PO SCH (08:59)
[2023-08-22] MEDS: METOPROLOL SUCC 25MG EXT REL TAB PO SCH (09:01)
--- NOTE | 2023-08-22 11:14 | Neurology Consultation ---
Date of Consultation August 22, 2023 Assessment & Plan (1) Acute alteration in mental status: Could be multifactorial, low blood pressure, COVID encephalopathy, gabapentin use. MRI reviewed and showed no acute changes, no pituitary mass. Low suspicion for TIA Patient is currently at her baseline Plan Can obtain a duplex scan of the carotids Telehealth Consultation Telehealth Information Telehealth Information: I performed this visit using a real-time telehealth connection between my location and the patients location ([facility]). After connecting through interactive tele-video, patient was identified by name and date of and/or wristband check.Patient (or authorized healthcare tour sales representative) was informed that this was a telemedicine visit and it was being conducted confidentially over secure lines. My office door was closed and no one else was present in the room with me.Patient (or authorized healthcare tour sales representative) provided consent to proceed with the visit, expressed an understanding of privacy and security of the telemedicine visit, and gave permission to have a hospital tour sales representative in the room in order to assist with the visit and to conduct portions of the visit, as needed. I informed the patient (or authorized healthcare tour sales representative) that I reviewed their record and presented the opportunity for them to ask any questions regarding the visit today. The patient agreed to participate. History of Present Illness Reason for Consultation: [facility] Requesting Physician: Rita Ochoa MD Attending Physician: Rita Ochoa MD History of Present Illness Mrs Soto is a 68-year-old female patient with PMH described below significant for leukemia cutis the patient is maintained on chemotherapy. The was the main person who provided history, he tells me that yesterday she came from chemotherapy and was tired she slept for about 2 hours in the afternoon which was unusual for her, when she woke up he had ordered pizza and after eating the first slice while having a conversation with her he noticed that she is drifting in the conversation and could not focus open much. He noted that she is in and out of this condition, would have a hard time making appointment he started asking about the time and the date and she would intermittently answer right. When she stood up and walked to the living room she was more confused so he called 911. The patient tells me that she felt foggy and could not focus on anything. She did not have word finding difficulty, did not have any numbness or weakness. She has taken her medications of gabapentin 600 mg, and Wellbutrin. In the ED she was hypotensive with a blood pressure of 94/50 Allergies Allergy/AdvReac Type Severity Reaction Status Date / Time amoxicillin AdvReac Mild Nausea Verified 08/22/23 01:45 Penicillins AdvReac Mild "makes me Verified 08/22/23 01:45 nervous" Home Medications Medication Instructions Recorded Confirmed Type acetaminophen 500 mg tablet 500 mg PO QID PRN Pain 08/22/23 08/22/23 History (Tylenol Extra Strength) bupropion HCl 150 mg 24 hr tablet, 150 mg PO QAM 08/22/23 08/22/23 History extended release bupropion HCl 300 mg 24 hr tablet, 300 mg PO QAM 08/22/23 08/22/23 History extended release buspirone 10 mg tablet 10 mg PO DIRECTED 08/22/23 08/22/23 History calcium carbonate 1,000 mg-vitamin 1 tab PO DAILY 08/22/23 08/22/23 History D3 20 mcg (800 unit) tablet cyanocobalamin (vitamin B-12) 1,000 mcg PO DAILY 08/22/23 08/22/23 History 1,000 mcg tablet (Vitamin B-12) cyanocobalamin (vitamin B-12) 1,000 mcg PO DAILY 08/22/23 08/22/23 History 1,000 mcg tablet (Vitamin B-12) fluoride (sodium) 1.1 % dental 1 applic PO HS 08/22/23 08/22/23 History paste gabapentin 300 mg capsule 600 mg PO BID 08/22/23 08/22/23 History gabapentin 300 mg capsule 600 mg PO BID 08/22/23 08/22/23 History hydrocodone 5 mg-acetaminophen 325 1 tab PO Q8 PRN Pain 08/22/23 08/22/23 Histo ry mg tablet hydrocodone 5 mg-acetaminophen 325 1 tab PO TID PRN Pain 08/22/23 08/22/23 History mg tablet levothyroxine 150 mcg tablet 150 mcg PO DAILY 08/22/23 08/22/23 History levothyroxine 150 mcg tablet 150 mcg PO DAILY 08/22/23 08/22/23 History lorazepam 0.5 mg tablet 0.5 mg PO DAILY PRN Anxiety 08/22/23 08/22/23 History magnesium oxide 400 mg PO DIRECTED 08/22/23 08/22/23 History magnesium oxide 400 mg (241.3 mg 400 mg PO BID 08/22/23 08/22/23 History magnesium) tablet metoprolol succinate 25 mg 12.5 mg PO DAILY 08/22/23 08/22/23 History tablet,extended release 24 hr metoprolol succinate 25 mg 123.5 mg PO DAILY 08/22/23 08/22/23 History tablet,extended release 24 hr omeprazole 20 mg capsule,delayed 20 mg PO CQWK 08/22/23 08/22/23 History release omeprazole 20 mg capsule,delayed 20 mg PO DAILY 08/22/23 08/22/23 History release ondansetron 8 mg disintegrating 8 mg PO TID PRN Nausea And Vomiting 08/22/23 08/22/23 History tablet ondansetron 8 mg disintegrating 8 mg translingual Q8 PRN Nausea 08/22/23 08/22/23 History tablet potassium chloride 20 mEq 20 meq PO DAILY 08/22/23 08/22/23 History tablet,extended release potassium chloride 20 mEq 20 meq PO DAILY 08/22/23 08/22/23 History tablet,extended release prochlorperazine maleate 10 mg 10 mg PO Q6H PRN Nausea 08/22/23 08/22/23 History tablet (Compazine) Patient History Medical History History of diabetes mellitus HX STEROID INDUCED DIABETES, NOW RESOLVED Low blood pressure Sepsis due to Pseudomonas species with acute organ dysfunction and septic shock this happened 100 days after the transplant CMV (cytomegalovirus infection) HX ? PT NOT SURE Autoimmune hepatitis Nausea and vomiting after administration of anesthetic agent Hypothyroidism AML (acute myeloblastic leukemia) diagnosed - CURRENT CHEMOTHERAPY/PORT RIGHT CHEST TMJ disease HX SURGERY, RESOLVED PROBLEM Depression Anxiety Migraine HX Takotsubo cardiomyopathy reason for metoprolol--follows with Dr. Bonilla Surgical History History of cataract surgery right S/P radiation therapy before bone marrow transplant 12-11-2016 Bone marrow replaced by transplant December 2016 History of amputation of toe left big toe History of hemorrhoidectomy History of colonoscopy History of esophagogastroduodenoscopy (EGD) History of vascular access device right APORT History of mandibular surgery TMJ sx--plate in right side of jaw History of tooth extraction History of wisdom tooth extraction History of cardiac cath 2013 in [place]---no stents Family History Sister Family history of diabetes mellitus Mother , age 84 Head and neck cancer COPD (chronic obstructive pulmonary disease) Father , age 75 Esophageal cancer Sister Vertigo Hypertension Sister Hypothyroidism Brother Combined hyperlipidemia Brother Colorectal cancer Brother Gout Brother No problems noted. 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: No Beliefs That Will Affect Care: None marital status: Current Living Situation: Spouse Current Living Situation Comment: lives with current occupational status: retired current occupation: works 4 - 6 hrs a week / [employer] Other Information That Helps Us Care for You: No Feels Safe at Home: Yes Safety Concerns: Feels Safe At This Time Childhood Exposure to Second-Hand Smoke: Yes Assistive Devices: Glasses and Walker Assistive Devices Comment: reading glasses Results & Data Vital Signs (Past 12 Hours) Vital Signs Pulse Resp BP Pulse Ox O2 Del Method O2 Flow Rate 08/22/23 09:37 Room Air 08/22/23 09:00 20 94/67 L 98 08/22/23 07:04 76 08/22/23 06:19 74 13 96/59 L 100 Oxymask 3 08/22/23 05:32 100 Oxymask 3 08/22/23 05:30 78 L Room Air 08/22/23 05:03 Room Air 08/22/23 05:00 73 17 150/87 H 97 08/22/23 03:26 Room Air 08/22/23 03:00 80 23 92/67 L 97 Room Air 08/22/23 02:00 77 17 106/67 97 Room Air 08/22/23 01:00 82 19 108/63 96 Room Air 08/22/23 00:15 99 Room Air 08/22/23 00:00 78 14 139/83 94 Room Air 08/21/23 23:30 80 103/64 98 Room Air Laboratory Results Laboratory Results - last 24 hr 08/21/23 08/21/23 08/22/23 22:44 23:50 00:00 WBC 5.31 RBC 2.79 L Hgb 10.2 L Hct 30.7 L MCV 110.0 H MCH 36.6 H MCHC 33.2 RDW Std Deviation 60.4 H RDW Coeff of Selam 14.8 H Plt Count 217 MPV 8.9 L Immature Gran % (Auto) 1.1 Neut % (Auto) 80.6 Lymph % (Auto) 11.9 [place] % (Auto) 5.8 Eos % (Auto) 0.4 Baso % (Auto) 0.2 Neut # (Auto) 4.28 Lymph # (Auto) 0.63 L [place] # (Auto) 0.31 Eos # (Auto) 0.02 Baso # (Auto) 0.01 Immature Gran # (Auto) 0.06 Macrocytosis PT 10.8 INR 1.0 APTT 35 H PTT Ratio 1.2 Sodium 137 Potassium 4.0 Chloride 108 H Carbon Dioxide 22 Anion Gap 7 BUN 12 Creatinine 0.79 Est Cr Clr Drug Dosing Not Reportable Est GFR ( Amer) 89.8 Est GFR (Non-Af Amer) 77.5 BUN/Creatinine Ratio 15.2 Glucose 106 H Estimat Average Glucose Hemoglobin A1c Lactate 0.7 Calcium 8.0 L Phosphorus Magnesium 1.3 L Total Bilirubin 0.5 Direct Bilirubin AST 46 H ALT 45 Alkaline Phosphatase 212 H Troponin I High Sens 8.6 Total Protein 5.9 L Albumin 3.4 Globulin 2.5 Albumin/Globulin Ratio 1.4 TSH Prolactin Insulin-like GF I IGF I Z-Score IGF I Z-Score (Female) Cortisol AM Sample ACTH Urine Color Yellow Urine Appearance Clear Urine pH 5.5 Ur Specific [place] 1.011 Urine Protein Negative Urine Glucose (UA) Negative Urine Ketones Negative Urine Blood Negative Urine Nitrite Negative Urine Bilirubin Negative Urine Urobilinogen Negative Ur Leukocyte Esterase Negative SARS-CoV-2 (PCR) POSITIVE A* 08/22/23 07:45 WBC 5.17 RBC 2.71 L Hgb 10.0 L Hct 30.2 L MCV 111.4 H MCH 36.9 H MCHC 33.1 RDW Std Deviation 61.0 H RDW Coeff of Selam 14.9 H Plt Count 202 MPV 8.7 L Immature Gran % (Auto) 1.4 Neut % (Auto) 79.6 Lymph % (Auto) 13.0 [place] % (Auto) 5.6 Eos % (Auto) 0.2 Baso % (Auto) 0.2 Neut # (Auto) 4.12 Lymph # (Auto) 0.67 L [place] # (Auto) 0.29 Eos # (Auto) 0.01 Baso # (Auto) 0.01 Immature Gran # (Auto) 0.07 Macrocytosis Present PT INR APTT PTT Ratio Sodium 136 Potassium 4.0 Chloride 109 H Carbon Dioxide 22 Anion Gap 5 BUN 10 Creatinine 0.67 Est Cr Clr Drug Dosing 69.5 Est GFR ( Amer) 105.4 Est GFR (Non-Af Amer) 91.0 BUN/Creatinine Ratio 14.9 Glucose 113 H Estimat Average Glucose 88 Hemoglobin A1c 4.7 Lactate Calcium 8.1 L Phosphorus 3.5 Magnesium 2.2 Total Bilirubin 0.4 Direct Bilirubin 0.1 AST 31 ALT 39 Alkaline Phosphatase 192 H Troponin I High Sens Total Protein 5.6 L Albumin 3.2 L Globulin Albumin/Globulin Ratio TSH 0.903 Prolactin 7.70 Insulin-like GF I Pending IGF I Z-Score Pending IGF I Z-Score (Female) Pending Cortisol AM Sample 6.05 L ACTH Pending Urine Color Urine Appearance Urine pH Ur Specific [place] Urine Protein Urine Glucose (UA) Urine Ketones Urine Blood Urine Nitrite Urine Bilirubin Urine Urobilinogen Ur Leukocyte Esterase SARS-CoV-2 (PCR) Diagnostic Findings CT head 08/22/2023: TECHNIQUE: Axial computed tomography images of the head/brain without intravenous contrast. CTDI is 34.46 mGy and DLP is 546.36 mGy-cm. Automated exposure control was utilized for the study. A dose lowering technique was utilized adhering to the principles of ALARA. COMPARISON: Comparison made to prior head CT from March 31, 2017. FINDINGS: Brain: Unremarkable. No hemorrhage. Mild nonspecific white changes.. No edema. Prominent but turgid gland with convex superior margin measuring 2.8 mm in height concern for pituitary adenoma. Small bilateral choroidal fissure cyst. Ventricles: Moderate ventriculomegaly. Bones/joints: Unremarkable. No acute fracture. Soft tissues: Bilateral lens replacements. Sinuses: Chronic ethmoid sinusitis. No acute sinusitis. Mastoid air cells: Unremarkable as visualized. No mastoid effusion. IMPRESSION: No evidence of acute intracanal pathology. Findings concerning for pituitary adenoma. Recommend correlation with patient's hormonal status. MRI brain 08/22/2023: IMPRESSION: 1. No acute intracranial abnormality. No acute subacute infarct. 2. Involutional changes with chronic microvascular ischemic disease. 3. No abnormal enhancement. 4. No sellar or suprasellar mass identified on this exam.
[2023-08-23] MEDS: LEVOTHYROXINE SODIUM 150 MCG TABLET PO SCH (05:14)
[2023-08-23 06:19] LABS: Basophils # (auto) 0.01 K/uL (0.00-0.20); Basophils % (auto) 0.2 %; Eosinophils # (auto) 0.02 K/uL (0.00-0.50); Eosinophils % (auto) 0.5 %; Hematocrit (blood only) 31.2 % (37.0-47.0); Hemoglobin 10.3 g/dl (12.0-16.0); Immature Granulocytes # (auto) 0.06 K/uL (0.01-0.20); Immature Granulocytes % (auto) 1.4 %; Lymphocytes # (auto) 0.81 K/uL (1.20-3.40); Mean Corpuscular Hemoglobin 37.5 pg (25.0-34.0); Mean Corpuscular Volume 113.5 fL (80.0-100.0); Mean Platelet Volume 9.1 fL (9.4-12.4); Monocytes # (auto) 0.21 K/uL (0.11-0.59); Monocytes % (auto) 4.9 %; Neutrophils # (auto) 3.15 K/uL (1.40-6.50); Platelet Count 205 K/uL (130-400); RDW Coefficient of Variation 14.6 % (11.5-14.5); RDW Standard Deviation 60.9 fL (36.4-46.3); Red Blood Count 2.75 M/uL (4.20-5.40); White Blood Count 4.26 K/ul (4.8-10.8)
[2023-08-23 06:36] LABS: BUN Creatinine Ratio 17.1 (10-20); Creatinine Clr Calc Pharmacy 61.3 ml/min; Est GFR (African American) 94.1 ml/min; Est GFR (Non-African American) 81.2 ml/min; Magnesium 1.9 mg/dl (1.7-2.4); Phosphorus 2.8 mg/dl (2.5-4.9); Potassium 4.3 mmol/L (3.5-5.1)
[2023-08-23 06:58] LABS: Macrocytosis Present; Polychromasia 1+
--- NOTE | 2023-08-23 07:03 | Hospitalist Progress Note ---
Date of Service August 23, 2023 Assessment & Plan (1) Acute alteration in mental status: Plan: Mrs. Soto is a 68-year-old female with past medical history significant for diet-controlled diabetes, hypothyroidism, history of hypokalemia, hypomagnesemia, history of hypertension, Takotsubo cardiomyopathy, autoimmune hepatitis, GERD, chronic diarrhea, amputation of left great toe, vasovagal syncope, history of acute myeloid leukemia, leukemia cutis, GERD anxiety disorder, presents with confusion. Patient has history of acute myelogenous leukemia and received both induction and reinduction intensive systemic chemotherapy. And also had allogenic hematopoietic stem cell transplant. Posttransplant course was complicated by severe sepsis secondary to MSSA bacteremia, ARF and shock liver which have resolved. 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 Currently tolerating decitabine every 4 weeks. She had her chemo yesterday. In the nighttime around 8:45 PM patient seems confused she could not remember her name and she was not making sense as per . It lasted for 20 minutes. Came to the ER. Initial CT head no acute findings. Patient when examined initially she was sleeping and when aroused she was speaking in low-volume and was not making sense. But after short period time she was okay. Initially could not remember current date. Later she could tell the month and year. And is currently alert and oriented. Denies any headache. Vision is okay. Has some runny nose. Cough for last 2 days. No fever. Appetite is down. No difficulty swallowing. No nausea. Denies any chest pain or shortness of breath. No abdominal pain. Normal bowel and bladder movements. As per she fell during [place] time onto both knees. Since then she is using walker to ambulate. Hemodynamically stable. Saturating okay. Her COVID test came back positive. Patient states she had only 1 COVID booster. As per patient, she notes that she is progressively weaker every infusion of decitabine. She states her symptoms are marked by notable fatigue and lethargy. She denies any acute concerns otherwise. #Acute toxic metabolic encephalopathy, resolved Altered mental status on 08/22; defined at confusion, lethargy Currently seems okay CT head no acute findings but shows 10.8 mm of possible pituitary adenoma; MRI does not demonstrate mass to this degree COVID came back positive possible cause of altered mental status Neurology no further recommendations -duplex negative -no mass Encephalopathy likely multifactorial, chemo +covid #COVID-positive COVID precautions Supportive care Currently saturating okay #Leukemia cutis #Refractory AML 2015 -Completed infuction thereapy, MUD 05/2016, then alloSCT 2016, skin lesions noted in 2019 -Extramedullary relapse 2018, treatment with decitabine and venotoclax. however transitioned to venetoclax 2/2 pancytopenia, issues with bone marrow despite multiple dose modifications per Dr. Nielson notes in EMR -Currently off all immunosuppressants -Last treatment of Dacogen 08/20 (4 day cycle monthly) Takes acyclovir Close follow up with Dr. 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 Bonilla, continue Metoprolol 12.5mg XL daily #Chronic Hypomagnesemia, improved Replace Follow repeat labs #Hypocalcemia #Elevated alkaline phosphatase -unqualifiable low vit d, low Ca, elevated ALP likely sequelae of prior Continue home calcium supplements Vit D < 7, start d2 50,000U qweek #Chronic Macrocytic Anemia Hemoglobin 10.2 on admission, OSH trend Possible from chemo Will check stool for Hemoccult Follow repeat labs #Diabetes diet controlled will follow sugars A1c 4.7% 08/22 #Chronic diarrhea, IBS #History of autoimmune hepatitis -Serology negative, but symptoms steroid responsive in 2016 -Stable, follows GI, no longer on steriods -immodium prn #Protein Calorie Malnutrition -ISO chemo, chronic illness -Boost protein supplementation DVT prophylaxis Lovenox Disposition Med/tele Full code Admission and Anticipated Discharge Date Admission Date: August 22, 2023 Subjective NAEO Reports feeling better and denies any further recurrence of symptoms Physical Exam Constitutional: WD/WN, vitals as above Respiratory: normal respiratory effort, lungs clear to auscultation Cardiovascular: RRR, no murmur, no edema Neurologic: PERRL, EOMI, accommodation nl, no face palsy, no dysarthria Results & Data Results & Data Vital Signs (Past 12 Hours) Vital Signs Temp Pulse Pulse Resp BP Pulse Ox O2 Del Method 08/23/23 06:06 77 08/23/23 02:23 36.5 C 80 16 103/65 99 Room Air 08/22/23 22:38 36.8 C 83 18 102/66 97 Room Air 08/22/23 22:07 80 08/22/23 20:22 36.8 C 86 18 113/73 99 Room Air Laboratory Results Short CBC 08/22/23 08/23/23 Range/Units 07:45 05:17 WBC 5.17 4.26 L (4.8-10.8) K/ul Hgb 10.0 L 10.3 L (12.0-16.0) g/dl Hct 30.2 L 31.2 L (37.0-47.0) % Plt Count 202 205 (130-400) K/uL BMP 08/22/23 08/23/23 07:45 05:17 Sodium 136 138 Potassium 4.0 4.3 Chloride 109 H 110 H Carbon Dioxide 22 23 BUN 10 13 Creatinine 0.67 0.76 Glucose 113 H 90 Calcium 8.1 L 8.0 L Liver Function 08/22/23 Range/Units 07:45 Total Bilirubin 0.4 (0.2-1.0) mg/dl Direct Bilirubin 0.1 (0-0.2) mg/dl AST 31 (13-39) U/L ALT 39 (7-52) U/L Alkaline Phosphatase 192 H (34-104) U/L Albumin 3.2 L (3.4-5.0) gm/dl Medications Administered Home Medications Medication Instructions Recorded Confirmed Last Taken acetaminophen 500 mg tablet 500 mg PO QID PRN Pain 08/22/23 08/22/23 Unknown (Tylenol Extra Strength) bupropion HCl 150 mg 24 hr tablet, 150 mg PO QAM 08/22/23 08/22/23 Unknown extended release bupropion HCl 300 mg 24 hr tablet, 300 mg PO QAM 08/22/23 08/22/23 Unknown extended release buspirone 10 mg tablet 10 mg PO DIRECTED 08/22/23 08/22/23 Unknown calcium carbonate 1,000 mg-vitamin 1 tab PO DAILY 08/22/23 08/22/23 Unknown D3 20 mcg (800 unit) tablet cyanocobalamin (vitamin B-12) 1,000 mcg PO DAILY 08/22/23 08/22/23 Unknown 1,000 mcg tablet (Vitamin B-12) cyanocobalamin (vitamin B-12) 1,000 mcg PO DAILY 08/22/23 08/22/23 Unknown 1,000 mcg tablet (Vitamin B-12) fluoride (sodium) 1.1 % dental 1 applic PO HS 08/22/23 08/22/23 Unknown paste gabapentin 300 mg capsule 600 mg PO BID 08/22/23 08/22/23 Unknown gabapentin 300 mg capsule 600 mg PO BID 08/22/23 08/22/23 Unknown hydrocodone 5 mg-acetaminophen 325 1 tab PO Q8 PRN Pain 08/22/23 08/22/23 Unknown mg tablet hydrocodone 5 mg-acetaminophen 325 1 tab PO TID PRN Pain 08/22/23 08/22/23 Unknown mg tablet levothyroxine 150 mcg tablet 150 mcg PO DAILY 08/22/23 08/22/23 Unknown levothyroxine 150 mcg tablet 150 mcg PO DAILY 08/22/23 08/22/23 Unknown lorazepam 0.5 mg tablet 0.5 mg PO DAILY PRN Anxiety 08/22/23 08/22/23 Unknown magnesium oxide 400 mg PO DIRECTED 08/22/23 08/22/23 Unknown magnesium oxide 400 mg (241.3 mg 400 mg PO BID 08/22/23 08/22/23 Unknown magnesium) tablet metoprolol succinate 25 mg 12.5 mg PO DAILY 08/22/23 08/22/23 Unknown tablet,extended release 24 hr metoprolol succinate 25 mg 123.5 mg PO DAILY 08/22/23 08/22/23 Unknown tablet,extended release 24 hr omeprazole 20 mg capsule,delayed 20 mg PO CQWK 08/22/23 08/22/23 Unknown release omeprazole 20 mg capsule,delayed 20 mg PO DAILY 08/22/23 08/22/23 Unknown release ondansetron 8 mg disintegrating 8 mg PO TID PRN Nausea And Vomiting 08/22/23 Unknown tablet ondansetron 8 mg disintegrating 8 mg translingual Q8 PRN Nausea 08/22/23 08/22/23 Unknown tablet potassium chloride 20 mEq 20 meq PO DAILY 08/22/23 08/22/23 Unknown tablet,extended release potassium chloride 20 mEq 20 meq PO DAILY 08/22/23 08/22/23 Unknown tablet,extended release prochlorperazine maleate 10 mg 10 mg PO Q6H PRN Nausea 08/22/23 08/22/23 Unknown tablet (Compazine) Active Medications Generic Name Dose Route Start Last Admin Trade Name Freq PRN Reason Stop Dose Admin Buspirone HCl 10 mg 08/22/23 09:00 08/22/23 20:33 Buspirone 5 Mg Tab PO 09/21/23 08:59 10 mg BID VIRAJ Administration Calcium/Vitamin D 1 tab 08/22/23 09:00 08/22/23 08:58 Calcium 600mg + Vit D 400 Iu Tab PO 09/21/23 08:59 1 tab DAILY VIRAJ Administration Cyanocobalamin 1,000 mcg 08/22/23 09:00 08/22/23 08:59 Cyanocobalamin (B-12) 500 Mcg Tablet PO 09/21/23 08:59 1,000 mcg DAILY VIRAJ Administration Enoxaparin Sodium 40 mg 08/22/23 09:00 08/22/23 08:59 Enoxaparin Inj 40 Mg/0.4 Ml Syr SQ 09/21/23 08:59 40 mg Q24H VIRAJ Administration Gabapentin 600 mg 08/22/23 09:00 08/22/23 20:34 Gabapentin 300 Mg Cap PO 09/21/23 08:59 600 mg BID VIRAJ Administration Levothyroxine Sodium 150 mcg 08/22/23 06:30 08/23/23 05:14 Levothyroxine Sodium 150 Mcg Tablet PO 09/21/23 06:29 150 mcg DAILYBB VIRAJ Administration Magnesium Oxide 400 mg 08/22/23 09:00 08/22/23 20:34 Magnesium Oxide 400 Mg Tab PO 09/21/23 08:59 400 mg BID VIRAJ Administration Metoprolol Succinate 12.5 mg 08/22/23 09:00 08/22/23 09:01 Metoprolol Succ 25mg Ext Rel Tab PO 09/21/23 08:59 Not Given DAILY VIRAJ Pantoprazole Sodium 40 mg 08/22/23 09:00 08/22/23 08:58 Pantoprazole 40 Mg Tab PO 09/21/23 08:59 40 mg DAILY VIRAJ Administration Potassium Chloride 20 meq 08/22/23 09:00 08/22/23 08:59 Potassium Chloride Crtab 20 Meq Tabcr PO 09/21/23 08:59 20 meq DAILY VIRAJ Administration
--- NOTE | 2023-08-23 07:04 | Ultrasound Report ---
ULTRASOUND OF THE CAROTID ARTERIES CLINICAL HISTORY: Change in mental status. COMPARISON STUDY: No priors. TECHNIQUE: Real-time, grayscale, and color Doppler sonography of the carotid arteries is performed. I mages are reviewed in the transverse and longitudinal planes. FINDINGS: The carotid arteries are patent bilaterally and demonstrate antegrade flow. There is mild atheroscler otic plaque seen in the carotid bulbs bilaterally. Normal doppler arterial waveforms are seen through out. Velocity measurements are listed below. Common carotid peak systolic velocity (cm/sec): RIGHT: 63 LEFT: 91 ICA proximal peak systolic velocity (cm/sec): RIGHT: 59 LEFT: 69 ICA mid peak systolic velocity (cm/sec): RIGHT: 71 LEFT: 66 ICA distal peak systolic velocity (cm/sec): RIGHT: 75 LEFT: 75 ICA/CC peak systolic ratio: RIGHT: 1.2 LEFT: 0.8 Antegrade flow was shown in the vertebral arteries. The external carotid arteries are patent. IMPRESSION: 1. There is no sonographic evidence of hemodynamically significant stenosis in the right or left [place] tid arterial system. 2. Antegrade flow is shown in the vertebral arteries. ACT 112: Negative or not required by law. Electronically signed by: Adolph Curry M.D. 08/23/2023 7:01 AM
[2023-08-23 07:38] VITALS: RESP 18
[2023-08-23] MEDS ORDERED: ERGOCALCIFEROL 50,000 UNITS 1250 MCG CAP PO SCH (08:00)
[2023-08-23] MEDS: GABAPENTIN 300 MG CAP PO SCH ×2 (08:17→19:59)
[2023-08-23] MEDS: METOPROLOL SUCC 25MG EXT REL TAB PO SCH (08:17)
[2023-08-23] MEDS: CYANOCOBALAMIN (B-12) 500 MCG TABLET PO SCH (08:18)
[2023-08-23] MEDS: POTASSIUM CHLORIDE CRTAB 20 MEQ TABCR PO SCH (08:18)
[2023-08-23] MEDS: MAGNESIUM OXIDE 400 MG TAB PO SCH ×2 (08:18→19:58)
[2023-08-23] MEDS: CALCIUM 600MG + VIT D 400 IU TAB PO SCH (08:18)
[2023-08-23] MEDS: busPIRone 5 MG TAB PO SCH ×2 (08:18→19:59)
[2023-08-23] MEDS: PANTOprazole 40 MG TAB PO SCH (08:18)
[2023-08-23] MEDS: ENOXAPARIN INJ 40 MG/0.4 ML SYR SQ SCH (08:19)
--- NOTE | 2023-08-23 22:47 | Electrocardiogram Report ---
Test Reason : Blood Pressure : / mmHG Vent. Rate : 082 BPM Atrial Rate : 082 BPM P-R Int : 182 ms QRS Dur : 090 ms QT Int : 366 ms P-R-T Axes : 031 -17 027 degrees QTc Int : 427 ms Normal sinus rhythm Low voltage QRS Cannot rule out Anterior infarct , age undetermined Abnormal ECG When compared with ECG of 31-MAR-2017 09:10, QT has shortened ST no longer depressed in Anterior leads Confirmed by Alexandru Mcnally ([id number]) on 08/23/2023 10:47:25 PM Referred By: REFERRED SELF Confirmed By:Alexandru Mcnally
[2023-08-24 00:07] VITALS: TEMP 98.1
[2023-08-24] MEDS: LEVOTHYROXINE SODIUM 150 MCG TABLET PO SCH (06:09)
[2023-08-24] MEDS: GABAPENTIN 300 MG CAP PO SCH (08:56)
[2023-08-24] MEDS: busPIRone 5 MG TAB PO SCH (08:57)
[2023-08-24] MEDS: MAGNESIUM OXIDE 400 MG TAB PO SCH (08:57)
[2023-08-24] MEDS: CALCIUM 600MG + VIT D 400 IU TAB PO SCH (08:57)
[2023-08-24] MEDS: ENOXAPARIN INJ 40 MG/0.4 ML SYR SQ SCH (08:57)
[2023-08-24] MEDS: PANTOprazole 40 MG TAB PO SCH (08:58)
[2023-08-24] MEDS: METOPROLOL SUCC 25MG EXT REL TAB PO SCH (08:58)
[2023-08-24] MEDS: CYANOCOBALAMIN (B-12) 500 MCG TABLET PO SCH (08:58)
[2023-08-24] MEDS: POTASSIUM CHLORIDE CRTAB 20 MEQ TABCR PO SCH (09:03)
[2023-08-24 09:18] LABS: Folate (Folic Acid),Ser orPlas 19.41 ng/ml (>5.38)
[2023-08-24 09:51] LABS: Iron 167 mcg/dl (35-150); Unsaturated Iron Binding Cap < 55 mcg/dl (155-355)
[2023-08-24 10:06] LABS: Anion Gap 5 (3-11); Calcium 8.6 mg/dl (8.6-10.3); Carbon Dioxide 23 mmol/L (21-32); Chloride 109 mmol/L (98-107); Potassium 4.3 mmol/L (3.5-5.1); Sodium 137 mmol/L (136-145)
[2023-08-24 10:12] LABS: BUN Creatinine Ratio 21.1 (10-20); Blood Urea Nitrogen 16 mg/dl (6-23); Creatinine Clr Calc Pharmacy 61.2 ml/min; Est GFR (African American) 94.1 ml/min; Est GFR (Non-African American) 81.2 ml/min; Glucose 104 mg/dl (70-99(Fasting))
[2023-08-24 10:15] LABS: Magnesium 1.6 mg/dl (1.7-2.4); Phosphorus 2.8 mg/dl (2.5-4.9)
--- NOTE | 2023-08-24 11:15 | Discharge Summary ---
Discharge Summary Date of Service August 24, 2023 Notes For Next Care Provider Medication Changes From Visit Vit D2 [id number] q weekly, to take on q7 days Admission HPI Per Admitting Provider 68-year-old female with past medical history significant for diet-controlled diabetes, hypothyroidism, history of hypokalemia, hypomagnesemia, history of hypertension, Takotsubo cardiomyopathy, autoimmune hepatitis, GERD, chronic diarrhea, amputation of left great toe, vasovagal syncope, history of acute myeloid leukemia, leukemia cutis, GERD anxiety disorder, presents with conf usion. Patient has history of acute myelogenous leukemia and received both induction and reinduction intensive systemic chemotherapy. And also had allogenic hematopoietic stem cell transplant. Posttransplant course was complicated by severe sepsis secondary to MSSA bacteremia, ARF and shock liver which have resolved. 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 Currently tolerating decitabine every 4 weeks. She h ad her chemo yesterday. In the nighttime around 8:45 PM patient seems confused she could not remember her name and she was not making sense as per . It lasted for 20 minutes. Came to the ER. Initial CT head no acute findings. Patient when examined initially she was sleeping and when aroused she was speaking in low-volume and was not making sense. But after short period time she was okay. Initially could not remember current date. Later she could tell the month and year. And is currently alert and oriented. Denies any headache. Vision is okay. Has some runny nose. Cough for last 2 days. No fever. Appetite is down. No difficulty swallowing. No nausea. Denies any chest pain or shortness of breath. No abdominal pain. Normal bowel and bladder movements. As per she fell during [place] time onto both knees. Since then she is using walker to ambulate. Hemodynamically stable. Saturating okay. Her COVID test came back positive. Patient states she had only 1 COVID booster. Past medical history. As mentioned above Past surgical history. Amputation left great toe. Bone marrow aspiration. Bone marrow biopsy. Colonoscopy. EGD. Fissurectomy with sphincterotomy. Stem cell transplant. Injection of lumbosacral spine. Removal of [place] catheter. Social history. . No smoking. Alcohol rarely. No drug use. Family history. Maternal cousin had breast cancer in 30s. Maternal grandmother had breast cancer. Mother had cancer. COPD. Stroke. Father had esophageal cancer. Heart attack. Hypertension. Sister has COPD. Thyroid disorder. Paternal grandfather had heart disorder. Paternal grandmother had heart disorder. Admission Exam Per Admitting Provider General-Not in distress. Head- atraumatic Eyes- PERRL. ENT- oropharynx clear Neck- supple, no JVD. Lungs- clear to auscultation no wheezing or crackles. Heart- regular rate and rhythm; no murmur, no gallop. Abdomen- normal bowel sounds, soft, nontender, no distension. Extremities- no pretibial edema, no erythema seen. Neuro- alert, oriented x 3; PERRL, no facial palsy; no dysarthria; motor 5/5 bilaterally; no pronator drift,coordination of movements normal. sensations intact. position sense intact. Skin- warm & dry Principal Dx & Hospital Course #1 = Principal Diagnosis (1) Acute alteration in mental status: Mrs. Soto is a 68-year-old female with past medical history significant for diet-controlled diabetes, hypothyroidism, history of hypokalemia, hypomagnesemia, history of hypertension, Takotsubo cardiomyopathy, autoimmune hepatitis, GERD, chronic diarrhea, amputation of left great toe, vasovagal syncope, history of acute myeloid leukemia, leukemia cutis, GERD anxiety disorder, presents with confusion. Patient has history of acute myelogenous leukemia and received both induction and reinduction intensive systemic chemotherapy. And also had allogenic hematopoietic stem cell transplant. Posttransplant course was complicated by severe sepsis secondary to MSSA bacteremia, ARF and shock liver which have resolved. 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 Currently tolerating decitabine every 4 weeks. She had her chemo yesterday. In the nighttime around 8:45 PM patient seems confused she could not remember her name and she was not making sense as per . It lasted for 20 minutes. Came to the ER. Initial CT head no acute findings. Patient when examined initially she was sleeping and when aroused she was speaking in low-volume and was not making sense. But after short period time she was okay. Initially could not remember current date. Later she could tell the month and year. And is currently alert and oriented. Denies any headache. Vision is okay. Has some runny nose. Cough for last 2 days. No fever. Appetite is down. No difficulty swallowing. No nausea. Denies any chest pain or shortness of breath. No abdominal pain. Normal bowel and bladder movements. As per she fell during [place] time onto both knees. Since then she is using walker to ambulate. Hemodynamically stable. Saturating okay. Her COVID test came back positive. Patient states she had only 1 COVID booster. As per patient, she notes that she is progressively weaker every infusion of decitabine. She states her symptoms are marked by notable fatigue and lethargy. She denies any acute concerns otherwise. Patient denies any recurrence of her symptoms since admission and reports feeling much better, however, no clear interventions were performed. Neurology not suspicious for any TIA and MRI not suggestive of stroke or mass present. Patient and with many questions regarding symptoms--event sounds like letheragy/confusion and seemed to correspond to chemo regimen and resolved without any pharmaceutical intervention. #Acute toxic metabolic encephalopathy, resolved Altered mental status on 08/22; defined at confusion, lethargy At baseline upon discharge CT head no acute findings but shows 10.8 mm of possible pituitary adenoma; MRI does not demonstrate mass to this degree COVID came back positive possible cause of altered mental status Neurology no further recommendations -duplex negative -no mass Encephalopathy likely multifactorial, chemo +covid Discussed follow p with Dr. Nielson. Encouraged continued symptomatic support with COVID--though no overt infectious like symptoms reported #COVID-positive COVID precautions Supportive care Currently saturating okay, no acute concerns #Leukemia cutis #Refractory AML 2016 -Completed induction thereapy, MUD 05/2016, then alloSCT 2016, skin lesions noted in 2019 -Extramedullary relapse 2019, treatment with decitabine and venotoclax. however transitioned to venetoclax 2/2 pancytopenia, issues with bone marrow despite multiple dose modifications per Dr. Nielson notes in EMR -Currently off all immunosuppressants -Last treatment of Dacogen 08/20 (4 day cycle monthly) Takes acyclovir Close follow up with Dr. 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 Bonilla, continue Metoprolol 12.5mg XL daily #Chronic Hypomagnesemia, improved Replace Follow repeat labs #Hypocalcemia #Elevated alkaline phosphatase -unqualifiable low vit d, low Ca, elevated ALP likely sequelae of prior Continue home calcium supplements Vit D < 7, start d2 50,000U qweek #Chronic Macrocytic Anemia Hemoglobin 10.2 on admission, OSH trend stable #Diabetes diet controlled will follow sugars A1c 4.7% 08/22 #Chronic diarrhea, IBS #History of autoimmune hepatitis -Serology negative, but symptoms steroid responsive in 2015 -Stable, follows GI, no longer on steriods -immodium prn #Vitamin D deficiency #Protein Calorie Malnutrition -ISO chemo, chronic illness -Boost protein supplementation -COntinue Vit D 50,000 U q weekly On day of discharge, patient was at baseline per subjective report and per husbands assessment. Patient denied any pain or concerns and eager to get home. Discharge Exam Constitutional WD/WN, vitals as above weak frail woman, pleasant and conversational Respiratory normal respiratory effort, lungs clear to auscultation Cardiovascular RRR, no murmur, no edema Neurologic PERRL, EOMI, accommodation nl, no face palsy, no dysarthria Updated Medication List Medication Instructions Recorded Confirmed Type acetaminophen 500 mg tablet 500 mg PO QID PRN Pain 08/22/23 08/22/23 History (Tylenol Extra Strength) bupropion HCl 150 mg 24 hr tablet, 150 mg PO QAM 08/22/23 08/22/23 History extended release bupropion HCl 300 mg 24 hr tablet, 300 mg PO QAM 08/22/23 08/22/23 History extended release buspirone 10 mg tablet 10 mg PO DIRECTED 08/22/23 08/22/23 History calcium carbonate 1,000 mg-vitamin 1 tab PO DAILY 08/22/23 08/22/23 History D3 20 mcg (800 unit) tablet cyanocobalamin (vitamin B-12) 1,000 mcg PO DAILY 08/22/23 08/22/23 History 1,000 mcg tablet (Vitamin B-12) fluoride (sodium) 1.1 % dental 1 applic PO HS 08/22/23 08/22/23 History paste gabapentin 300 mg capsule 600 mg PO BID 08/22/23 08/22/23 History gabapentin 300 mg capsule 600 mg PO BID 08/22/23 08/22/23 History hydrocodone 5 mg-acetaminophen 325 1 tab PO Q8 PRN Pain 08/22/23 08/22/23 History mg tablet hydrocodone 5 mg-acetaminophen 325 1 tab PO TID PRN Pain 08/22/23 08/22/23 History mg tablet levothyroxine 150 mcg tablet 150 mcg PO DAILY 08/22/23 08/22/23 History lorazepam 0.5 mg tablet 0.5 mg PO DAILY PRN Anxiety 08/22/23 08/22/23 History magnesium oxide 400 mg PO DIRECTED 08/22/23 08/22/23 History magnesium oxide 400 mg (241.3 mg 400 mg PO BID 08/22/23 08/22/23 History magnesium) tablet metoprolol succinate 25 mg 12.5 mg PO DAILY 08/22/23 08/22/23 History tablet,extended release 24 hr omeprazole 20 mg capsule,delayed 20 mg PO CQWK 08/22/23 08/22/23 History release omeprazole 20 mg capsule,delayed 20 mg PO DAILY 08/22/23 08/22/23 History release ondansetron 8 mg disintegrating 8 mg PO TID PRN Nausea And Vomiting 08/22/23 08/22/23 History tablet ondansetron 8 mg disintegrating 8 mg translingual Q8 PRN Nausea 08/22/23 08/22/23 History tablet potassium chloride 20 mEq 20 meq PO DAILY 08/22/23 08/22/23 History tablet,extended release potassium chloride 20 mEq 20 meq PO DAILY 08/22/23 08/22/23 History tablet,extended release prochlorperazine maleate 10 mg 10 mg PO Q6H PRN Nausea 08/22/23 08/22/23 History tablet (Compazine) ergocalciferol (vitamin D2) 1,250 50,000 unit PO Q7D #10 caps 08/24/23 Rx mcg (50,000 unit) capsule Hospital Stay Data Consultations 08/22/23 00:22 ED Decision to Admit Stat 08/22/23 08:00 Consult Neurology Routine Diagnostic Imagining Performed 08/21/23 22:45 CT head/brain wo con Stat 08/22/23 03:26 MRI Brain [MR brain wo/w con] Urgent 08/23/23 08:00 Carotid duplex [US carotid doppler BI] Routine Pending Results Patient Have Any Pending Studies at Discharge: Yes (Hormones for pituitary gland: IGF-1, ACTH ) Discharge Instructions Given to Patient (Per Discharging Provider) You were admitted due to concerns for altered mental status/confusion. This episode resolved. Imaging did not reveal concerns for stroke. Ultrasound did not reveal concerns for blocked vessels. CT imaging noted concern for a "pituitary macroadenoma", however, MRI did not confirm this. Multiple labs are pending to help ensure the hormonal access that is controlled by your pituitary are in balance. Luckily hormones that did result, like cortisol and prolactin, are within a range that do not indicate a hormone-secreting lesion. Given the discrepancy between imaging modalities, it would be prudent to follow up as an outpatient and obtain an MRI dedicated to pituitary gland. In the interim, given the resolution of your symptoms and ongoing COVID infection, it is recommended to return home for rest and to follow up closely with your Oncologist regarding the notable and progressive fatigue you are experiencing with your decitabine treatments. Total Time Total Time Spent Total Time Spent (In Minutes): 45
[2023-08-24 12:03] VITALS: BP 96/63; O2SAT 99
[2023-08-24 13:01] VITALS: PULSE 92
[2023-08-27 12:32] LABS: ILGF1 Z-Score Female -0.4 SD (-2.0 - +2.0)
== END 2023-08-24 14:16 | disposition home or self-care (01) | DRG 177 ==
LOC: ED 22:07 → SUATTDRO 08-22 01:29 → EDINP 08-22 01:29 → 2W 08-22 03:26

== ENCOUNTER 2024-03-15 00:36 | Inpatient (IN) ==
[2024-03-15 01:13] LABS: Basophils # (auto) 0.04 K/uL (0.00-0.20); Basophils % (auto) 1.4 %; Eosinophils # (auto) 0.07 K/uL (0.00-0.50); Eosinophils % (auto) 2.4 %; Hematocrit (blood only) 30.3 % (37.0-47.0); Hemoglobin 10.2 g/dl (12.0-16.0); Immature Granulocytes # (auto) 0.02 K/uL (0.01-0.20); Immature Granulocytes % (auto) 0.7 %; Lymphocytes # (auto) 1.41 K/uL (1.20-3.40); Mean Corpuscular Hemoglobin 38.1 pg (25.0-34.0); Mean Corpuscular Hgb Conc 33.7 g/dL (32.0-36.0); Mean Corpuscular Volume 113.1 fL (80.0-100.0); Mean Platelet Volume 9.4 fL (9.4-12.4); Monocytes % (auto) 3.5 %; Neutrophils # (auto) 1.24 K/uL (1.40-6.50); Platelet Count 227 K/uL (130-400); RDW Coefficient of Variation 15.7 % (11.5-14.5); RDW Standard Deviation 65.2 fL (36.4-46.3); Red Blood Count 2.68 M/uL (4.20-5.40); White Blood Count 2.88 K/ul (4.8-10.8)
--- NOTE | 2024-03-15 01:13 | Emergency Department Note ---
Impression & Plan Pseudomonas infection, Cellulitis admit to the [facility] ED Provider Note NAME: JONATHAN YEN AGE: 69 SEX: Female INFORMANT: Patient ED PROVIDER(S): Sunitha Mckeon DO CHIEF COMPLAINT: right lower extremity pain PLAN: Disposition: admit to the [facility] MEDICAL DECISION MAKING: this is a 69-year-old female patient to presents to the emergency department complaining of recurrent pain and a wound in her distal right tib-fib region. The patient was seen here in the emergency department last night for the same complaint. At that time, she received IV analgesia and I reviewed [facility] It was noted that she was growing Pseudomonas in that wound. Patient has been taking oral doxycycline at home. I asked her to switch to oral Cipro. The patient was much more comfortable at the time of discharge. She was instructed to use her oxycodone routinely. Patient was unable to get the Cipro prescription picked up. She did take her oxycodone at 10 AM, 2 PM, and then again at 11 PM but is having severe pain in and around the wound again tonight. Patient states that she did feel well enough to go out with her and dog to a local brewery this evening but the pain became much more severe tonight. upon arrival here in the emergency department, the patient was medicated with IV Dilaudid and Zofran for the pain in the leg. Laboratory studies revealed a low white blood cell count of 2.8 which is fairly baseline for this patient. Hemoglobin was 10.2 which is also at her baseline. Renal function tests were normal. Glucose was normal. Calcium was slightly low at 7.8. Patient was given IV Cipro. I discussed the case with the [facility] Hospitalist and they will evaluate for further inpatient care. Care/management discussed with: Patient's , strategic alliances manager, and [facility] Triage Nursing notes: reviewed and agree With them. Vital Signs: reviewed and unremarkable Additional History obtained from: patient's is at the bedside Differential Diagnosis: sepsis, cellulitis, worsening wound infection, osteomyelitis HPI: 69 year old Female arrives for evaluation of right lower extremity pain. patient has a wound on the anterior aspect of her distal right tib-fib area of her leg. This has been diagnosed as a venous stasis ulcer. Patient tried taking her oxycodone more frequently today as she was directed to do so yesterday while she was here in the emergency department for the same complaint. This did seem to help throughout the day but tonight, the pain is much more severe. Patient was discharged home from the emergency department this morning to switch prescriptions from doxycycline to Cipro since the patient's wound culture was positive for Pseudomonas. explains that they were unable to get that prescription picked up before the pharmacy closed this evening. PAST MEDICAL HISTORY: See Below, PAST SURGICAL HISTORY: See Below, SOCIAL HISTORY: See Below, HOME MEDICATIONS: See list ALLERGIES: see list VITALS: See Below PHYSICAL EXAMINATION: HEENT: Head - normocephalic and atraumatic. Pupils are equal, round, and reactive to light. Extraocular eye muscles are intact, and sclera are Mildlyicteric. Nose - moist nasal mucosa without discharge. Mouth - moist buccal mucosa. Oropharynx is nonerythematous and there is no tonsillar exudate or edema noted. patient has a healing contusion noted under her left eye. Neck: Supple; no JVD Or cervical lymphadenopathy. Heart: Regular rate and rhythm. There is a normal S1 and S2 with no murmurs, clicks, or gallops appreciated. Lungs: Clear to auscultation bilaterally with no wheezes, rales, or rhonchi. Abdomen: Soft, completely nontender, nondistended, with good bowel sounds. There are no palpable pulsatile masses or hepatosplenomegaly. There is no guarding, rigidity, or rebound noted. Extremities: left lower extremity: There is moderate lymphedema noted. The patient had previous amputation to the great toe. She does have a very well- healed wound to the anterior tib-fib(Middle of the clark.) Right lower extremity: Patient has this ulcer on the distal anterior tib-fib region with significant surrounding erythema at this time. There is a new wound/ulceration forming just medial and distal to this original ulcer. Skin: warm and dry with good turgor and no rashes. Emergency department treatment: front desk monitor, IV Dilaudid, IV Zofran, IV Cipro Emergency department course: The patient was evaluated in room A-3. A complete history and physical was performed. IV lock was initiated and labs were drawn as above. Patient was medicated with IV Dilaudid and IV Zofran for pain patient was given a dose of IV Cipro. I discussed the case with the [facility] Hospitalist. Past Med/Surg History Problem List (Updated 03/15/24 @ 03:18 by Sunitha Mckeon DO) Cellulitis (Acute) Pseudomonas infection (Acute) Wound infection (Acute) Acute pain of right lower extremity (Acute) Lab test positive for detection of COVID-19 virus (Acute) Anemia (Acute) Leukemia cutis (Acute) Encounter for pre-operative examination Leukemia cutis (Chronic) Encounter for pre-operative examination Weight loss Diarrhea Unresponsiveness (Acute) Pancytopenia (Acute) Hypotension (Acute) AML (acute myeloblastic leukemia) (Acute) H/O colonoscopy (Chronic) "06/04/2014 diverticulosis, repeat 5 yrs" S/P anal fissurectomy (Chronic) Takotsubo cardiomyopathy (Chronic) Transaminitis Hypothyroidism (Chronic) Hyperbilirubinemia AML (acute myelogenous leukemia) (Chronic) Medical History Acute alteration in mental status History of diabetes mellitus HX STEROID INDUCED DIABETES, NOW RESOLVED Low blood pressure Sepsis due to Pseudomonas species with acute organ dysfunction and septic shock this happened 100 days after the transplant CMV (cytomegalovirus infection) HX ? PT NOT SURE Autoimmune hepatitis Nausea and vomiting after administration of anesthetic agent Hypothyroidism AML (acute myeloblastic leukemia) diagnosed - CURRENT CHEMOTHERAPY/PORT RIGHT CHEST TMJ disease HX SURGERY, RESOLVED PROBLEM Depression Anxiety Migraine HX Takotsubo cardiomyopathy reason for metoprolol--follows with Dr. Bonilla Surgical History History of cataract surgery right S/P radiation therapy before bone marrow transplant 12-11-2016 Bone marrow replaced by transplant December 2016 History of amputation of toe left big toe History of hemorrhoidectomy History of colonoscopy History of esophagogastroduodenoscopy (EGD) History of vascular access device right APORT History of mandibular surgery TMJ sx--plate in right side of jaw History of tooth extraction History of wisdom tooth extraction History of cardiac cath 2012 in [place]---no stents Family History Sister Family history of diabetes mellitus Mother , age 84 Head and neck cancer COPD (chronic obstructive pulmonary disease) Father , age 75 Esophageal cancer Sister Vertigo Hypertension Sister Hypothyroidism Brother Combined hyperlipidemia Brother Colorectal cancer Brother Gout Brother No problems noted. 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 Feels Safe at Home: Yes Childhood Exposure to Second-Hand Smoke: Yes Assistive Devices: Walker Allergies Allergies Allergy/AdvReac Type Severity Reaction Status Date / Time amoxicillin AdvReac Intermediate NAUSEA/VOMI Verified 03/15/24 01:04 TING Penicillins AdvReac Intermediate NAUSEA/VOMITING/"FEELS Verified 03/15/24 01:04 NERVOUS" Home Meds Home Medications Medication Instructions Recorded Confirmed acetaminophen 500 mg tablet 500 mg PO Q6H PRN Pain 08/22/23 03/15/24 (Tylenol Extra Strength) bupropion HCl 150 mg 24 hr tablet, 150 mg PO QAM 08/22/23 03/15/24 extended release bupropion HCl 300 mg 24 hr tablet, 300 mg PO QAM 08/22/23 03/15/24 extended release buspirone 10 mg tablet See Rx Instructions .Route .COMPLEX 08/22/23 03/15/24 calcium carbonate 1,000 mg-vitamin 1 tab PO DAILY 08/22/23 03/15/24 D3 20 mcg (800 unit) tablet cyanocobalamin (vitamin B-12) 1,000 mcg PO DAILY 08/22/23 03/15/24 1,000 mcg tablet (Vitamin B-12) gabapentin 300 mg capsule 600 mg PO BID 08/22/23 03/15/24 hydrocodone 5 mg-acetaminophen 325 1 tab PO Q8H PRN Pain 08/22/23 03/15/24 mg tablet levothyroxine 150 mcg tablet 150 mcg PO DAILYBB 08/22/23 03/15/24 lorazepam 0.5 mg tablet 0.5 mg PO DAILY PRN Anxiety 08/22/23 03/15/24 magnesium oxide 800 mg PO BID 08/22/23 03/15/24 metoprolol succinate 25 mg 12.5 mg PO DAILY 08/22/23 03/15/24 tablet,extended release 24 hr omeprazole 20 mg capsule,delayed 20 mg PO DAILY 08/22/23 03/15/24 release ondansetron 8 mg disintegrating 8 mg PO Q8H PRN Nausea And Vomiting 08/22/23 03/15/24 tablet potassium chloride 20 mEq 20 meq PO DAILY 08/22/23 03/15/24 tablet,extended release prochlorperazine maleate 10 mg 10 mg PO Q8H PRN Nausea 08/22/23 03/15/24 tablet (Compazine) ergocalciferol (vitamin D2) 1,250 50,000 unit PO WK 12/25/23 03/15/24 mcg (50,000 unit) capsule fluoride (sodium) 1.1 % dental 1 applic dental HS 12/25/23 03/15/24 paste (Sodium Fluoride 5000 Dry Mouth) furosemide 40 mg tablet (Lasix) 40 mg PO QAM 12/25/23 03/15/24 spironolactone 25 mg tablet 12.5 mg PO DAILY 03/14/24 03/15/24 Previous Rx's Medication Instructions Recorded oxycodone 5 mg tablet 5 mg PO Q6H PRN pain #10 tabs 12/25/23 ciprofloxacin HCl 500 mg tablet 500 mg PO BID #20 tabs 03/14/24 (Cipro) Results & Data (ED) Vital Signs Vital Signs - 24 hr 03/15/24 01:02 03/15/24 01:30 Temperature 36.7 C Temperature Source Oral Pulse Rate 84 Pulse Rate [Apical] 77 Pulse Rhythm [Apical] Regular Respiratory Rate 18 16 Respiratory Effort / Characteristics Non-Labored Spontaneous Non-Labored Spontaneous Respiratory Depth Normal Normal Respiratory Pattern Regular Regular Blood Pressure 165/87 H Blood Pressure [Left Arm] 138/75 Blood Pressure Mean 113 Blood Pressure Mean [Left Arm] 96 Blood Pressure Position Semi-fowlers Blood Pressure Position [Left Arm] Semi-fowlers Pulse Oximetry 100 100 Oxygen Delivery Method Room Air Room Air Sepsis Recent Fever Within 48 Hours No Sepsis New/Unexplained Change in Mental Status N/A Sepsis Action Taken by Nursing No Action Required Laboratory Data 03/15/24 00:57 03/15/24 00:57 Lab Results 03/15/24 Range/Units 00:57 WBC 2.88 L (4.8-10.8) K/ul RBC 2.68 L (4.20-5.40) M/uL Hgb 10.2 L (12.0-16.0) g/dl Hct 30.3 L (37.0-47.0) % MCV 113.1 H (80.0-100.0) fL MCH 38.1 H (25.0-34.0) pg MCHC 33.7 (32.0-36.0) g/dL RDW Std Deviation 65.2 H (36.4-46.3) fL RDW Coeff of Selam 15.7 H (11.5-14.5) % Plt Count 227 (130-400) K/uL MPV 9.4 (9.4-12.4) fL Immature Gran % (Auto) 0.7 % Neut % (Auto) 43.0 % Lymph % (Auto) 49.0 % [place] % (Auto) 3.5 % Eos % (Auto) 2.4 % Baso % (Auto) 1.4 % Neut # (Auto) 1.24 L (1.40-6.50) K/uL Lymph # (Auto) 1.41 (1.20-3.40) K/uL [place] # (Auto) 0.10 L (0.11-0.59) K/uL Eos # (Auto) 0.07 (0.00-0.50) K/uL Baso # (Auto) 0.04 (0.00-0.20) K/uL Immature Gran # (Auto) 0.02 (0.01-0.20) K/uL Macrocytosis Present Sodium 141 (136-145) mmol/L Potassium 4.0 (3.5-5.1) mmol/L Chloride 106 (98-107) mmol/L Carbon Dioxide 29 (21-32) mmol/L Anion Gap 6 (3-11) BUN 13 (6-23) mg/dl Creatinine 0.88 (0.6-1.2) mg/dl Est Cr Clr Drug Dosing 54.6 ml/min Est GFR ( Amer) 78.2 ml/min Est GFR (Non-Af Amer) 67.5 ml/min BUN/Creatinine Ratio 14.8 (10-20) Glucose 85 (70-99(Fasting)) mg/dl Lactate 1.2 (0.4-2.0) mmol/L Calcium 7.8 L (8.6-10.3) mg/dl Total Bilirubin 0.7 (0.2-1.0) mg/dl AST 29 (13-39) U/L ALT 20 (7-52) U/L Alkaline Phosphatase 251 H (34-104) U/L Total Protein 5.2 L (6.0-8.3) gm/dl Albumin 2.9 L (3.4-5.0) gm/dl Globulin 2.3 L (2.5-4.0) gm/dl Albumin/Globulin Ratio 1.3 (0.9-2) Procalcitonin 0.28 (0-0.5) ng/ml Administered Medications Ciprofloxacin (Cipro / D5w) 400 mg in 200 mls @ 100 mls/hr IV NOW STA; Protocol Stop: 03/15/24 03:34 Last Admin: 03/15/24 01:42 Dose: 100 mls/hr Documented By: Discontinued Medications Hydromorphone HCl (Hydromorphone Inj 0.5 Mg/0.5 Ml Syr) 0.5 mg IV NOW STA Stop: 03/15/24 01:03 Last Admin: 03/15/24 01:25 Dose: 0.5 mg Documented By: Ondansetron HCl (Ondansetron Inj 2 Mg/Ml 2 Ml Vial) 4 mg IV NOW STA Stop: 03/15/24 01:03 Last Admin: 03/15/24 01:25 Dose: 4 mg Documented By: Discharge Plan Visit Data Chief Complaint: Wound Stated Complaint: Venous Stasis Ulcer R Leg ED Provider: Sunitha Mckeon Discharge Problem: Pseudomonas infection, Cellulitis Discharge Problem: Cellulitis Qualifiers: Site of cellulitis: extremity Site of cellulitis of extremity: lower extremity Laterality: right Qualified Code(s): L03.115 - Cellulitis of right lower limb
[2024-03-15] MEDS: HYDROmorphone INJ 0.5 MG/0.5 ML SYR IV STA (01:25)
[2024-03-15] MEDS: ONDANSETRON INJ 2 MG/ML 2 ML VIAL IV STA (01:25)
[2024-03-15 01:29] LABS: Albumin Globulin Ratio 1.3 (0.9-2); Albumin Level 2.9 gm/dl (3.4-5.0); BUN Creatinine Ratio 14.8 (10-20); Bilirubin,Total 0.7 mg/dl (0.2-1.0); Calcium 7.8 mg/dl (8.6-10.3); Creatinine Clr Calc Pharmacy 54.6 ml/min; Est GFR (African American) 78.2 ml/min; Est GFR (Non-African American) 67.5 ml/min; Globulin 2.3 gm/dl (2.5-4.0); Total Protein 5.2 gm/dl (6.0-8.3)
[2024-03-15 01:31] LABS: Macrocytosis Present
[2024-03-15] MEDS: CIPROFLOXACIN / D5W 400 MG/200 ML BAG IV STA (01:42)
--- NOTE | 2024-03-15 02:54 | History & Physical Report ---
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 As per patient wound popped up in the right clark about 5 weeks ago spontaneously. As it was not getting better went to PCP about a week ago and cultures were drawn and prescribed doxycycline. She starting taking Doxy since last Saturday. And has she was having spasms of pain in the right lower extremity she was in the ER yesterday night. ER checked epic and cultures came back with Pseudomonas and she was discharged on Cipro. Patient could not get her prescription Cipro filled today as pharmacy was closed by the time they went there. In evening patient and went outside and came back and she started having excruciating pain in the right lower extremity and called EMS and came back. Currently resting comfortably hemodynamically stable. States gets headaches on and off. On and off nausea. Vision is okay. No runny nose or sore throat. No cough. No difficulty swallowing. Appetite is not great. Denies any chest pain. Currently no shortness of breath. No palpitations. No abdominal pain. On and off she gets diarrhea. Denies any black stools. Micturating okay. Denies fevers. As per since December she developed lower extremity edema and she was seen by specialist nephrology cardiology and vascular surgery and finally thought it wa lymphedema and she was using stockings and diuretics and says edema is much better now. Wound infection Right lower extremity distal clark wound Cultures done as outpatient growing Pseudomonas Started IV Cipro Wound care consult History of MRSA bacteremia and MRSA multisystem failure including shock liver in April 2017 Will check MRSA screen ID consult Pain control Will monitor response Lower extremity edema Lymphedema On diuretics We will check Dopplers History of apical ballooning cardiomyopathy February 2012 with normal coronaries and return to normal LV function per cardio notes History of mitral valve prolapse with moderate 2-3 mitral insufficiency On diuretics Lasix and spironolactone Monitor volume overload Follow-up with cardiology Diet-controlled diabetes Will monitor blood sugars and check HbA1c levels Hypothyroidism On Synthyroid GERD On omeprazole Hypomagnesia and hypokalemia Continue home supplements Follow labs Depression anxiety Continue home medications Leukopenia and anemia Mostly from chemo Will check stool for Hemoccult History of AML Per oncology notes :Patient had induction chemotherapy in May 2016 with bone marrow biopsy showing residual disease and received reinduction c hemotherapy and she again had evidence of residual disease post second induction chemotherapy and subsequently treated with hypomethylating therapy on which she accomplishes complete remission with persistent thrombocytopenia which was considered to represent autoimmune manifestation versus treatment related toxicity rather than active disease. 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 Later patient developed skin lesions and biopsies was consistent with leukemia cutis, extramedullary relapse of AML. She was started on decitabine and venetoclax. She received radiation treatment to right upper and lower extremity for leukemia cutis.Due to pancytopenia venetoclax was stopped. Currently she receiving Dacogen single agent 4 days in a month. Follows with heme-onc. DVT prophylaxis Lovenox Disposition Medical floor Full code History of Present Illness Chief Complaint: Right lower extremity wound Primary Care Provider: Joe Peng DO 69-year-old female with past medical history significant for diet-controlled diabetes, hypothyroidism, history of hypokalemia and hypomagnesia, history of Takotsubo cardiomyopathy, history of mitral valve prolapse, history of autoimmune hepatitis, history of GERD, chronic diarrhea, amputation of the left great toe history of syncope, history of AML, AML relapse , history of leukemia cutis, chemotherapy induced neutropenia, history of ITP, 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 As per patient wound popped up in the right clark about 5 weeks ago spontaneously. As it was not getting better went to PCP about a week ago and cultures were drawn and prescribed doxycycline. She starting taking Doxy since last Saturday. And has she was having spasms of pain in the right lower extremity she was in the ER yesterday night. ER checked epic and cultures came back with Pseudomonas and she was discharged on Cipro. Patient could not get her prescription Cipro filled today as pharmacy was closed by the time they went there. In evening patient and went outside and came back and she started having excr uciating pain in the right lower extremity and called EMS and came back. Currently resting comfortably hemodynamically stable. States gets headaches on and off. On and off nausea. Vision is okay. No runny nose or sore throat. No cough. No difficulty swallowing. Appetite is not great. Denies any chest pain. Currently no shortness of breath. No palpitations. No abdominal pain. On and off she gets diarrhea. Denies any black stools. Micturating okay. Denies fevers. As per since December she developed lower extremity edema and she was seen by specialist nephrology cardiology and vascular surgery and finally thought it was lymphedema and she is using stockings and diuretics and says edema is much better now Past medical history. As mentioned above Past surgical history. Amputation of the left toe. Bone marrow aspiration. Colonoscopy. EGD. Injection of lumbosacral spine. Removal of [place] catheter. TMJ arthroscopy. Social history. . No smoking. Alcohol rarely. No drug use. Family history. Maternal cousin had breast cancer in 30s. Maternal grandmother had breast cancer. Mother had head and neck cancer.COPD. Carotid stenosis. Stroke. Father had esophageal cancer. Heart attack. Hypertension. Sister has thyroid disorder. Allergies Allergy/AdvReac Type Severity Reaction Status Date / Time amoxicillin AdvReac Intermediate NAUSEA/VOMI Verified 03/15/24 01:04 TING Penicillins AdvReac Intermediate NAUSEA/VOMITING/"FEELS Verified 03/15/24 01:04 NERVOUS" Home Medications Medication Instructions Recorded Confirmed Type acetaminophen 500 mg tablet 500 mg PO Q6H PRN Pain 08/22/23 03/15/24 History (Tylenol Extra Strength) bupropion HCl 150 mg 24 hr tablet, 150 mg PO QAM 08/22/23 03/15/24 History extended release bupropion HCl 300 mg 24 hr tablet, 300 mg PO QAM 08/22/23 03/15/24 History extended release buspirone 10 mg tablet See Rx Instructions .Route .COMPLEX 08/22/23 03/15/24 History calcium carbonate 1,000 mg-vitamin 1 tab PO DAILY 08/22/23 03/15/24 History D3 20 mcg (800 unit) tablet cyanocobalamin (vitamin B-12) 1,000 mcg PO DAILY 08/22/23 03/15/24 History 1,000 mcg tablet (Vitamin B-12) gabapentin 300 mg capsule 600 mg PO BID 08/22/23 03/15/24 History hydrocodone 5 mg-acetaminophen 325 1 tab PO Q8H PRN Pain 08/22/23 03/15/24 History mg tablet levothyroxine 150 mcg tablet 150 mcg PO DAILYBB 08/22/23 03/15/24 History lorazepam 0.5 mg tablet 0.5 mg PO DAILY PRN Anxiety 08/22/23 03/15/24 History magnesium oxide 800 mg PO BID 08/22/23 03/15/24 History metoprolol succinate 25 mg 12.5 mg PO DAILY 08/22/23 03/15/24 History tablet,extended release 24 hr omeprazole 20 mg capsule,delayed 20 mg PO DAILY 08/22/23 03/15/24 History release ondansetron 8 mg disintegrating 8 mg PO Q8H PRN Nausea And Vomiting 08/22/23 03/15/24 History tablet potassium chloride 20 mEq 20 meq PO DAILY 08/22/23 03/15/24 History tablet,extended release prochlorperazine maleate 10 mg 10 mg PO Q8H PRN Nausea 08/22/23 03/15/24 History tablet (Compazine) ergocalciferol (vitamin D2) 1,250 50,000 unit PO WK 12/25/23 03/15/24 History mcg (50,000 unit) capsule fluoride (sodium) 1.1 % dental 1 applic dental HS 12/25/23 03/15/24 History paste (Sodium Fluoride 5000 Dry Mouth) furosemide 40 mg tablet (Lasix) 40 mg PO QAM 12/25/23 03/15/24 History oxycodone 5 mg tablet 5 mg PO Q6H PRN pain #10 tabs 12/25/23 03/15/24 Rx ciprofloxacin HCl 500 mg tablet 500 mg PO BID #20 tabs 03/14/24 03/15/24 Rx (Cipro) spironolactone 25 mg tablet 12.5 mg PO DAILY 03/14/24 03/15/24 History Past Med/Surg History Problem List (Updated 03/15/24 @ 03:18 by Sunitha Mckeon DO) Cellulitis (Acute) Pseudomonas infection (Acute) Wound infection (Acute) Acute pain of right lower extremity (Acute) Lab test positive for detection of COVID-19 virus (Acute) Anemia (Acute) Leukemia cutis (Acute) Encounter for pre-operative examination Leukemia cutis (Chronic) Encounter for pre-operative examination Weight loss Diarrhea Unresponsiveness (Acute) Pancytopenia (Acute) Hypotension (Acute) AML (acute myeloblastic leukemia) (Acute) H/O colonoscopy (Chronic) "06/04/2014 diverticulosis, repeat 5 yrs" S/P anal fissurectomy (Chronic) Takotsubo cardiomyopathy (Chronic) Transaminitis Hypothyroidism (Chronic) Hyperbilirubinemia AML (acute myelogenous leukemia) (Chronic) Medical History Acute alteration in mental status History of diabetes mellitus HX STEROID INDUCED DIABETES, NOW RESOLVED Low blood pressure Sepsis due to Pseudomonas species with acute organ dysfunction and septic shock this happened 100 days after the transplant CMV (cytomegalovirus infection) HX ? PT NOT SURE Autoimmune hepatitis Nausea and vomiting after administration of anesthetic agent Hypothyroidism AML (acute myeloblastic leukemia) diagnosed - CURRENT CHEMOTHERAPY/PORT RIGHT CHEST TMJ disease HX SURGERY, RESOLVED PROBLEM Depression Anxiety Migraine HX Takotsubo cardiomyopathy reason for metoprolol--follows with Dr. Bonilla Surgical History History of cataract surgery right S/P radiation therapy before bone marrow transplant 12-11-2016 Bone marrow replaced by transplant December 2016 History of amputation of toe left big toe History of hemorrhoidectomy History of colonoscopy History of esophagogastroduodenoscopy (EGD) History of vascular access device right APORT History of mandibular surgery TMJ sx--plate in right side of jaw History of tooth extraction History of wisdom tooth extraction History of cardiac cath 2012 in [place]---no stents Family History Sister Family history of diabetes mellitus Mother , age 84 Head and neck cancer COPD (chronic obstructive pulmonary disease) Father , age 75 Esophageal cancer Sister Vertigo Hypertension Sister Hypothyroidism Brother Combined hyperlipidemia Brother Colorectal cancer Brother Gout Brother No problems noted. Grandmother (Maternal) Breast cancer Other No family history of adverse response to anesthesia Social History Smoking Status: Never smoker Second Hand Exposure: No; Do You Dip or Chew Tobacco: No; Tobacco Cessation Education Requested by Patient: No Hx Alcohol Use: Yes Alcohol type: wine Hx Substance Use: No Preferred Language: [place] Communication Ability: Effective Visual Impairment: No Limitations Hearing Ability: Normal Search Consultant Required: No Beliefs That Will Affect Care: None marital status: Current Living Situation: Spouse Current Living Situation Comment: lives with current occupational status: retired 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 ENT- oropharynx clear Neck- supple, no JVD. Lungs- clear to auscultation, no wheezing or crackles Heart- regular rate and rhythm; no murmur, no gallop. Abdomen- normal bowel sounds, soft, nontender, no distension. Extremities-b/l lower extremity edema present. wound see on right distal clark Neuro- alert, oriented PERRL,no facial palsy; no dysarthria; moves extremities Results & Data Results & Data Vital Signs (Past 12 Hours) Vital Signs Temp Pulse Resp BP Pulse Ox O2 Del Method 03/15/24 01:02 36.7 C 84 18 165/87 H 100 Room Air Diagnostic Findings Laboratory Results WBC 2.88 K/ul (4.8-10.8) L 03/15/24 00:57 RBC 2.68 M/uL (4.20-5.40) L 03/15/24 00:57 Hgb 10.2 g/dl (12.0-16.0) L 03/15/24 00:57 Hct 30.3 % (37.0-47.0) L 03/15/24 00:57 MCV 113.1 fL (80.0-100.0) H 03/15/24 00:57 MCH 38.1 pg (25.0-34.0) H 03/15/24 00:57 MCHC 33.7 g/dL (32.0-36.0) 03/15/24 00:57 RDW Std Deviation 65.2 fL (36.4-46.3) H 03/15/24 00:57 RDW Coeff of Selam 15.7 % (11.5-14.5) H 03/15/24 00:57 Plt Count 227 K/uL (130-400) 03/15/24 00:57 MPV 9.4 fL (9.4-12.4) 03/15/24 00:57 Immature Gran % (Auto) 0.7 % 03/15/24 00:57 Neut % (Auto) 43.0 % 03/15/24 00:57 Lymph % (Auto) 49.0 % 03/15/24 00:57 [place] % (Auto) 3.5 % 03/15/24 00:57 Eos % (Auto) 2.4 % 03/15/24 00:57 Baso % (Auto) 1.4 % 03/15/24 00:57 Neut # (Auto) 1.24 K/uL (1.40-6.50) L 03/15/24 00:57 Lymph # (Auto) 1.41 K/uL (1.20-3.40) 03/15/24 00:57 [place] # (Auto) 0.10 K/uL (0.11-0.59) L 03/15/24 00:57 Eos # (Auto) 0.07 K/uL (0.00-0.50) 03/15/24 00:57 Baso # (Auto) 0.04 K/uL (0.00-0.20) 03/15/24 00:57 Immature Gran # (Auto) 0.02 K/uL (0.01-0.20) 03/15/24 00:57 Macrocytosis Present 03/15/24 00:57 Sodium 141 mmol/L (136-145) 03/15/24 00:57 Potassium 4.0 mmol/L (3.5-5.1) 03/15/24 00:57 Chloride 106 mmol/L (98-107) 03/15/24 00:57 Carbon Dioxide 29 mmol/L (21-32) 03/15/24 00:57 Anion Gap 6 (3-11) 03/15/24 00:57 BUN 13 mg/dl (6-23) 03/15/24 00:57 Creatinine 0.88 mg/dl (0.6-1.2) 03/15/24 00:57 Est Cr Clr Drug Dosing 54.6 ml/min 03/15/24 00:57 Est GFR ( Amer) 78.2 ml/min 08 00:57 Est GFR (Non-Af Amer) 67.5 ml/min 03/15/24 00:57 BUN/Creatinine Ratio 14.8 (10-20) 03/15/24 00:57 Glucose 85 mg/dl (70-99(Fasting)) 03/15/24 00:57 Lactate 1.2 mmol/L (0.4-2.0) 03/15/24 00:57 Calcium 7.8 mg/dl (8.6-10.3) L 03/15/24 00:57 Total Bilirubin 0.7 mg/dl (0.2-1.0) 03/15/24 00:57 AST 29 U/L (13-39) 03/15/24 00:57 ALT 20 U/L (7-52) 03/15/24 00:57 Alkaline Phosphatase 251 U/L (34-104) H 03/15/24 00:57 Total Protein 5.2 gm/dl (6.0-8.3) L 03/15/24 00:57 Albumin 2.9 gm/dl (3.4-5.0) L 03/15/24 00:57 Globulin 2.3 gm/dl (2.5-4.0) L 03/15/24 00:57 Albumin/Globulin Ratio 1.3 (0.9-2) 03/15/24 00:57 Procalcitonin 0.28 ng/ml (0-0.5) 03/15/24 00:57 Code Status & VTE Plan VTE Prophylaxis Plan VTE Prophylaxis will be ordered: Yes
[2024-03-15] MEDS ORDERED: ONDANSETRON INJ 2 MG/ML 2 ML VIAL IV PRN (03:14)
[2024-03-15] MEDS: oxyCODONE HCL IR 5 MG TAB (IMMEDIATE RELEASE) PO PRN (03:38)
[2024-03-15] MEDS: ACETAMINOPHEN 325 MG TAB PO PRN (05:28)
[2024-03-15] MEDS: LEVOTHYROXINE SODIUM 150 MCG TABLET PO SCH (06:27)
[2024-03-15] MEDS: ENOXAPARIN INJ 40 MG/0.4 ML SYR SQ SCH (06:27)
[2024-03-15 07:14] LABS: Basophils # (auto) 0.06 K/uL (0.00-0.20); Basophils % (auto) 2.3 %; Eosinophils # (auto) 0.09 K/uL (0.00-0.50); Eosinophils % (auto) 3.4 %; Estimated Average Glucose 80 mg/dl; Hematocrit (blood only) 27.4 % (37.0-47.0); Hemoglobin 9.3 g/dl (12.0-16.0); Hemoglobin A1C 4.4 % (4.5-5.6); Immature Granulocytes # (auto) 0.01 K/uL (0.01-0.20); Immature Granulocytes % (auto) 0.4 %; Lymphocytes # (auto) 1.24 K/uL (1.20-3.40); Lymphocytes % (auto) 46.6 %; Mean Corpuscular Hemoglobin 37.8 pg (25.0-34.0); Mean Corpuscular Hgb Conc 33.9 g/dL (32.0-36.0); Mean Corpuscular Volume 111.4 fL (80.0-100.0); Mean Platelet Volume 9.4 fL (9.4-12.4); Monocytes % (auto) 3.8 %; Neutrophils # (auto) 1.16 K/uL (1.40-6.50); Neutrophils % (auto) 43.5 %; Platelet Count 208 K/uL (130-400); RDW Coefficient of Variation 15.1 % (11.5-14.5); Red Blood Count 2.46 M/uL (4.20-5.40); White Blood Count 2.66 K/ul (4.8-10.8)
--- NOTE | 2024-03-15 07:15 | Ultrasound Report ---
BILATERAL LOWER EXTREMITY VENOUS DOPPLER CLINICAL HISTORY: b/l lower extremity edema. dvt? COMPARISON STUDY: Bilateral lower extremity venous March 31, 2017. TECHNIQUE: Sonography of the deep venous system of the bilateral lower extremities was performed. Co mpression and augmentation were evaluated. FINDINGS: Linear stranding within the bilateral common femoral veins represents chronic deep venous thrombus. There is no evidence for acute deep venous thrombus within the lower extremities. There is also thickening within the right common femoral and superficial femoral veins which represents chroni c thrombus. There is acute appearing superficial thrombus within the left greater saphenous vein whic h extends for 4.1 cm in length. This nearly extends to the junction with the common femoral vein. IMPRESSION: 1. No evidence of acute deep venous thrombus within the bilateral lower extremities. 2. Linear stranding within the bilateral common femoral veins consistent with chronic deep venous thr ombus. 3. Acute appearing superficial thrombus within the left greater saphenous vein which extends for 4.1 cm in length and nearly extends to the junction with the common femoral vein. ACT 112: Negative or not required by law. Electronically signed by: Armando Horvath M.D. 03/15/2024 7:13 AM
[2024-03-15 07:31] LABS: Calcium 7.1 mg/dl (8.6-10.3)
[2024-03-15 07:36] LABS: BUN Creatinine Ratio 14.3 (10-20); Creatinine Clr Calc Pharmacy 62.4 ml/min; Est GFR (Non-African American) 79.3 ml/min
[2024-03-15 07:45] LABS: Macrocytosis Present
[2024-03-15] MEDS: buPROPion XL 150 MG TABCR PO SCH (08:31)
[2024-03-15] MEDS: buPROPion XL 300 MG TABCR PO SCH (08:32)
[2024-03-15] MEDS: busPIRone 5 MG TAB PO SCH ×2 (08:32→13:49)
[2024-03-15] MEDS: FUROSEMIDE 40 MG TAB PO SCH (08:33)
[2024-03-15] MEDS: CYANOCOBALAMIN (B-12) 500 MCG TABLET PO SCH (08:33)
[2024-03-15] MEDS: CALCIUM 600MG + VIT D 400 IU TAB PO SCH (08:33)
[2024-03-15] MEDS: GABAPENTIN 300 MG CAP PO SCH (08:33)
[2024-03-15] MEDS: PANTOprazole 40 MG TAB PO SCH (08:34)
[2024-03-15] MEDS: MAGNESIUM OXIDE 400 MG TAB PO SCH (08:34)
[2024-03-15] MEDS: METOPROLOL SUCC 25MG EXT REL TAB PO SCH (08:34)
[2024-03-15] MEDS: POTASSIUM CHLORIDE CRTAB 20 MEQ TABCR PO SCH (08:35)
[2024-03-15] MEDS: SPIRONOLACTONE 12.5 MG TAB PO SCH (08:35)
[2024-03-15] MEDS ORDERED: Heparin IV Adult Wt-Based Low-Dose *NO* INITIAL Bolus Protocol IV STA (08:48)
[2024-03-15] MEDS: POTASSIUM CHLORIDE CRTAB 20 MEQ TABCR PO STA (11:22)
--- NOTE | 2024-03-15 11:40 | Communication Note ---
Date of Service: March 15, 2024 Patient was seen and examined at bedside. 69-year-old lady with PMH of diet-controlled diabetes, hypothyroidism, hypokalemia and hypomagnesemia, Takotsubo cardiomyopathy, mitral valve prolapse, autoimmune hepatitis, GERD, chronic diarrhea alternating with constipation, amputation of left great toe, syncope, AML, AML relapse, leukemia cutis, chemotherapy-induced neutropenia, ITP, kbnhg-yvogkl-xyan disease, anasarca, depression, GERD, anxiety disorder who lives at home with her and ambulates with a walker comes because of ongoing infection/wound in the right distal part of the clark now with increased pain. Per patient, wound popped up in the right clark about 5 weeks ago spontaneously, patient was evaluated as an outpatient where she was prescribed doxycycline and wound culture was obtained. She was taking doxycycline for about 5 days ago CIRC[employer] T[employer] but she continued to have pain in the right lower extremity. She presented to the ED where her outpatient wound culture was reviewed and noted Pseudomonas. She was discharged on Cipro from the ED but she continued to have increasing lower extremity pain on the right LE and hence presented again to the ED on the same day. She reports chronic diarrhea alternating with constipation, denies cough or runny nose or sore throat or febrile illness. 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 Patient denies any chest pain or shortness of breath or palpitation. She is being managed for the following: RLE wound infection Patient presenting with RLE wound associated with RLE pain. Outpatient wound culture with Pseudomonas. MRSA screen negative. Continue with Cipro 03/15, add probiotic. Wound care consult, ID consult. Continue with pain control and monitor response to antibiotic. Lower extremity DVT and superficial thrombosis: Admitting BLE venous Doppler with chronic DVT within bilateral common femoral veins. Acute appearing thrombus within the left greater saphenous vein extending 4.1 cm in length and closer to the junction with common femoral vein. Patient reports she has a history of chronic VT and she was on Eliquis in the past. discussed with hematology 03/15, will fully anticoagulate her, started her on IV heparin, will need Eliquis on discharge. F/u w/ Dr Nielson on DC. Chronic lower extremity edema/lymphedema: Continue with home diuretics. Other chronic medical conditions: Continue with/resume home meds as when able. Apical ballooning cardiomyopathy, February 2012: Normal coronaries on return to her normal LV function per cardio notes Mitral valve prolapse with moderate mitral insufficiency: Continue with home diuretics and spironolactone. Monitor volume overload. Continue with cardiology as an outpatient as prior. Diet-controlled diabetes: Continue to monitor. A1c 4.4. Hypothyroidism: Continue home Synthroid GERD: Continue home omeprazole Hypomagnesia and hypokalemia: Continue home supplements. Continue to monitor replete while inpatient. Depression and anxiety: Continue home medications Leukopenia and anemia: Mostly from chemo. Continue to monitor. History of AML: Per oncology notes :Patient had induction chemotherapy in May 2016 with bone marrow biopsy showing residual disease and received reinduction chemotherapy and she again had evidence of residual disease post second induction chemotherapy and subsequently treated with hypomethylating therapy on which she accomplishes complete remission with persistent thrombocytopenia which was considered to represent autoimmune manifestation versus treatment related toxicity rather than active disease. 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 Later patient developed skin lesions and biopsies was consistent with leukemia cutis, extramedullary relapse of AML. She was started on decitabine and venetoclax. She received radiation treatment to right upper and lower extremity for leukemia cutis.Due to pancytopenia venetoclax was stopped. Currently she receiving Dacogen single agent 4 days in a month. Follows with heme-onc. DVT prophylaxis: On hep drip Disposition: Medical floor. PT/OT. Full code For detailed information on the patient, refer to today's H&P note.
[2024-03-15 11:57] LABS: INR 1.1 (0.9-1.1); Partial Thromboplastin Ratio 1.1; Partial Thromboplastin Time 30 Seconds (21-31); Prothrombin Time 11.7 Seconds (9.0-12.0)
[2024-03-15] MEDS: MAGNESIUM SULFATE / D5W 1 GM/100 ML BAG IV SCH (12:04)
[2024-03-15] MEDS: HEPARIN SODIUM/DEXTROSE 25,000 UNITS/500 ML BAG IV SCH (12:05)
[2024-03-15] MEDS: CIPROFLOXACIN / D5W 400 MG/200 ML BAG IV SCH (13:49)
[2024-03-15 18:51] LABS: ANTI-Xa, UFH(UnfractionatedHep > 1.50 IU/ml (0.3-0.7)
[2024-03-15 20:10] LABS: ANTI-Xa, UFH(UnfractionatedHep 0.79 IU/ml (0.3-0.7)
[2024-03-15] MEDS: LORazepam 0.5 MG TAB PO PRN (23:14)
[2024-03-16 02:34] LABS: ANTI-Xa, UFH(UnfractionatedHep 0.68 IU/ml (0.3-0.7)
--- NOTE | 2024-03-16 13:17 | Electrocardiogram Report ---
Test Reason : Blood Pressure : */* mmHG Vent. Rate : 60 BPM Atrial Rate : 60 BPM P-R Int : * ms QRS Dur : 72 ms QT Int : 474 ms P-R-T Axes : * -10 38 degrees QTcB Int : 474 ms Normal sinus rhythm Low voltage QRS Nonspecific ST and T wave abnormality Abnormal ECG When compared with ECG of 25-Dec-2023 01:40, T wave inversion now evident in Anterior leads Confirmed by aCm Paulino ([id number]) on 03/16/2024 1:17:27 PM Referred By: REFERRED SELF Confirmed By: Cam Paulino
--- NOTE | 2024-03-16 15:39 | Hospitalist Progress Note ---
Date of Service March 16, 2024 Assessment & Plan (1) Wound infection: Plan 69-year-old lady with PMH of diet-controlled diabetes, hypothyroidism, hypokalemia and hypomagnesemia, Takotsubo cardiomyopathy, mitral valve prolapse, autoimmune hepatitis, GERD, chronic diarrhea alternating with constipation, amputation of left great toe, syncope, AML, AML relapse, leukemia cutis, chemotherapy-induced neutropenia, ITP, lxqvn-duipbi-xism disease, anasarca, d epression, GERD, anxiety disorder who lives at home with her and ambulates with a walker comes because of ongoing infection/wound in the right distal part of the clark now with increased pain. Per patient, wound popped up in the right clark about 5 weeks ago spontaneously, patient was evaluated as an outpatient where she was prescribed doxycycline and wound culture was obtained. She was taking doxycycline for about 5 days ago SDE but she continued to have pain in the right lower extremity. She presented to the ED where her outpatient wound culture was reviewed and noted Pseudomonas. She was discharged on Cipro from the ED but she continued to have increasing lower extremity pain on the right LE and hence presented again to the ED on the same day. She reports chronic diarrhea alternating with constipation, denies cough or runny nose or sore throat or febrile illness. Patient reports appetite not being great since last few weeks SDE, likely 2/2 illness. Patient denies any chest pain or shortness of breath or palpitation. She is being managed for the following: Concern for RLE wound infection, ruled out infection Patient presenting with RLE wound associated with RLE pain. Outpatient wound culture with Pseudomonas. MRSA screen negative. Was on Cipro 03/15, d/w ID 03/16, likely noninfected ulcer DC antibiotic and c/w wound care. Appreciate ID recs. Lower extremity DVT and superficial thrombosis: Admitting BLE venous Doppler with chronic DVT within bilateral common femoral veins. Acute appearing thrombus within the left greater saphenous vein extending 4.1 cm in length and closer to the junction with common femoral vein. Patient reports she has a history of chronic VT and she was on Eliquis in the past. discussed with hematology 03/15, will fully anticoagulate her, c/w IV heparin, will need Eliquis on discharge. Eliquis sent for cost analysis. F/u w/ Dr Nielson on DC. Chronic lower extremity edema/lymphedema: Continue with home diuretics. Other chronic medical conditions: Continue with/resume home meds as when able. Apical ballooning cardiomyopathy, February 2012: Normal coronaries on return to her normal LV function per cardio notes Mitral valve prolapse with moderate mitral insufficiency: Continue with home diuretics and spironolactone. Monitor volume overload. Continue with cardiology as an outpatient as prior. Diet-controlled diabetes: Continue to monitor. A1c 4.4. Hypothyroidism: Continue home Synthroid GERD: Continue home omeprazole Hypomagnesia and hypokalemia: Continue home supplements. Continue to monitor replete while inpatient. Depression and anxiety: Continue home medications Leukopenia and anemia: Mostly from chemo. Continue to monitor. History of AML: Per oncology notes :Patient had induction chemotherapy in May 2016 with bone marrow biopsy showing residual disease and received reinduction chemotherapy and she again had evidence of residual disease post second induction chemotherapy and subsequently treated with hypomethylating therapy on which she accomplishes complete remission with persistent thrombocytopenia which was considered to represent autoimmune manifestation versus treatment related toxicity rather than active disease. 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 Later patient developed skin lesions and biopsies was consistent with leukemia cutis, extramedullary relapse of AML. She was started on decitabine and venetoclax. She received radiation treatment to right upper and lower extremity for leukemia cutis.Due to pancytopenia venetoclax was stopped. Currently she receiving Dacogen single agent 4 days in a month. Follows with heme-onc. DVT prophylaxis: On hep drip Disposition: Medical floor. PT/OT. CM to assist w/ dc plan. Full code Admission and Anticipated Discharge Date Admission Date: March 15, 2024 Subjective Patient was seen and examined at bedside. Patient was lying in bed, on room air, NAD, resting comfortably. Patient reports improvement in her RLE pain, reports eating okay and moving bowels okay, does not want to be put on dietary restriction, patient put on regular diet. Patient's at bedside was also updated on plan of care, he voiced understanding and was agreeable to plan of care. Physical Exam Physical Exam: General- Not in distress Head- atraumatic Eyes- PERRL. ENT- oropharynx clear Neck- supple, no JVD. Lungs- clear to auscultation, no wheezing or crackles Heart- regular rate and rhythm; no murmur, no gallop. Abdomen- normal bowel sounds, soft, nontender, no distension. Extremities-b/l lower extremity edema present. wound see on right distal clark w/ surrounding erythema Neuro- alert, oriented PERRL,no facial palsy; no dysarthria; moves extremities Results & Data Results & Data Vital Signs (Past 12 Hours) Vital Signs Temp Pulse Resp BP BP Pulse Ox O2 Del Method 03/16/24 15:18 92/58 L 03/16/24 15:00 36.4 C L 66 16 88/60 L 100 Room Air 03/16/24 12:57 36.4 C L 66 18 102/69 99 Room Air 03/16/24 08:59 70 105/70 03/16/24 08:33 36.4 C L 61 20 129/84 100 Room Air
[2024-03-16] MEDS: SODIUM CHLORIDE 0.9% 1,000 ML IV SCH (15:40)
--- NOTE | 2024-03-16 18:29 | Communication Note ---
Date of Service: March 16, 2024 Pt slipped and lost balance in bathroom, fell on back, mild mid back pain, no hip compression tenderness. Also hit head, pt on anticoagulation. Pt seen at bedside, vitals stable/at baseline. Pt w/ no significant pain and no neurological abnormality. Hold heparin infusion, get CT head stat, xr thoracic and lumbar spine. If CT head neg for bleed, resume hep drip. RN communicated plan of care.
--- NOTE | 2024-03-16 19:37 | CT Scan Report ---
Exam(s): CT HEAD Without Contrast EXAM: CT Head Without Intravenous Contrast CLINICAL HISTORY: Reason for exam: fall, hit head, pt on anticoagulation. TECHNIQUE: Axial computed tomography images of the head/brain without intravenous contrast. CTDI is 37 mGy and DLP is 547 mGy-cm. Automated exposure control was utilized for the study. A dose lowering technique was utilized adhering to the principles of ALARA. Mild motion artifact. COMPARISON: Head CT 01/07/24. FINDINGS: Brain: No mass effect or acute infarct. No acute hemorrhage. Mild atrophy and chronic white matter disease, stable. Ventricles: No hydrocephalus or midline shift. Bones/joints: No skull fracture. Soft tissues: No scalp hematoma. Visualized Sinuses: Clear. Mastoid air cells: No mastoid effusion. IMPRESSION: 1. Stable age-related findings. 2. No skull fracture, bleed, or acute intracranial abnormality. Electronically signed by: Daniella Laws M.D. 03/16/24 19:35 PM
[2024-03-16] MEDS: ACETIC ACID 0.25% IRRIG SOLN 1000 ML PLCT IR SCH (21:07)
[2024-03-17] MEDS ORDERED: HEPARIN 100 UNIT/ML 5ML FLUSH FLUSH PRN (01:08)
[2024-03-17 04:31] LABS: Hematocrit (blood only) 26.5 % (37.0-47.0); Hemoglobin 8.9 g/dl (12.0-16.0); Mean Corpuscular Hemoglobin 37.7 pg (25.0-34.0); Mean Corpuscular Hgb Conc 33.6 g/dL (32.0-36.0); Mean Corpuscular Volume 112.3 fL (80.0-100.0); Mean Platelet Volume 9.3 fL (9.4-12.4); Platelet Count 211 K/uL (130-400); RDW Coefficient of Variation 15.4 % (11.5-14.5); RDW Standard Deviation 63.3 fL (36.4-46.3); Red Blood Count 2.36 M/uL (4.20-5.40); White Blood Count 2.37 K/ul (4.8-10.8)
[2024-03-17 04:59] LABS: ANTI-Xa, UFH(UnfractionatedHep 0.32 IU/ml (0.3-0.7)
[2024-03-17 05:00] LABS: Basophils # (auto) 0.04 K/uL (0.00-0.20); Basophils % (auto) 1.7 %; Eosinophils # (auto) 0.07 K/uL (0.00-0.50); Immature Granulocytes # (auto) 0.01 K/uL (0.01-0.20); Immature Granulocytes % (auto) 0.4 %; Lymphocytes # (auto) 1.18 K/uL (1.20-3.40); Lymphocytes % (auto) 49.8 %; Monocytes # (auto) 0.15 K/uL (0.11-0.59); Monocytes % (auto) 6.3 %; Neutrophils # (auto) 0.92 K/uL (1.40-6.50); Neutrophils % (auto) 38.8 %
[2024-03-17 05:04] LABS: BUN Creatinine Ratio 9.8 (10-20); Creatinine Clr Calc Pharmacy 52.2 ml/min; Est GFR (African American) 74.2 ml/min; Magnesium 1.9 mg/dl (1.7-2.4); Potassium 4.2 mmol/L (3.5-5.1)
--- NOTE | 2024-03-17 07:07 | XRay Report ---
XR thoracic spine 3V routine HISTORY: 69 years-old Female fall acute mid back pain status post fall COMPARISON: Lumbar spine radiographs of same day, CTA chest 03/31/2017 TECHNIQUE: 3 views of the thoracic spine FINDINGS: A right IJ Ztkrvk-r-Gbxp catheter is noted with distal tip in the expected location of the mid SVC. T he imaged lung tan appear clear. There is mostly mild multilevel intervertebral disc space narrowi ng, spondylotic spurring and facet arthrosis. No acute fracture, subluxation or endplate erosion. IMPRESSION: No acute fracture or subluxation identified within the thoracic spine. ACT 112: Negative or not required by law. The above report was generated using voice recognition software. It may contain grammatical, syntax o r spelling errors. Electronically signed by: Reinier Magaña M.D. 03/17/2024 7:06 AM
--- NOTE | 2024-03-17 08:24 | XRay Report ---
XR lumbar spine 2-3V HISTORY: 69 years-old Female fall acute low back pain status post fall COMPARISON: Thoracic spine radiographs of same day, CTA abdomen and pelvis 03/31/2017 TECHNIQUE: 3 views of the lumbar spine FINDINGS: Calcified uterine fibroids. Pelvic basin phleboliths. Severe osteoarthritis of the hips with chronic remodeling. Moderate to extensive colonic fecal retention. Demineralized appearance of the bones. Dextroscoliosis of the mid to lower lumbar spine redemonstrate d. Moderate to severe multilevel intervertebral disc space narrowing with yewc-wv-kkivrkba spondyliti c spurring and facet arthrosis. No acute fracture, subluxation or endplate erosion identified. IMPRESSION: No acute fracture or subluxation identified. ACT 112: Negative or not required by law. The above report was generated using voice recognition software. It may contain grammatical, syntax o r spelling errors. Electronically signed by: Reinier Magaña M.D. 03/17/2024 8:23 AM
--- NOTE | 2024-03-17 11:31 | Communication Note ---
Date of Service: March 17, 2024 Ms. Soto is a 69-year-old woman with medical history of type 2 diabetes, history of Takotsubo cardiomyopathy, autoimmune hepatitis, history of GERD, history of AML status post peripheral stem cell transplant complicated by wgrcj-imoyay-dwwr disease, ITP, and status post amputation of left big toe who was admitted to [facility] because of concerns for infected right distal clark ulcers. According to medical records, the patient has been having these ulcers for around 5 weeks prior to presentation which popped up all of a sudden and has not been healing. She is urged her to come to her primary care physician around 1 week prior to presentation for which he prescribed doxycycline without any improvement. She eventually came to the emergency department at a [facility] facility with superficial cultures obtained from these ulcers growing Pseudomonas and thus was started on Cipro 1 day prior to presentation. On the day of presentation her pain was getting worse which prompted her to come to the emergency department at [facility]. On presentation, she was afebrile and did have leukopenia likely secon best to her AML/status post stem cell transplant. An x-ray of the tibia and fibula was not impressive. Venous Doppler of the right lower extremity showed a chronic deep vein thrombosis in the bilateral femoral veins with acute superficial thrombus within the left greater saphenous vein. Impression: 1. Right lower leg wounds -based on the pictures involving the skin subcutaneous tissue and possible involvement of the fat without any necrosis. Some yellowish necrotic tissue at the base of the ulcer without active drainage. Some redness around the wounds but no evidence of local cellulitis. I have no explanation of these ulcers except for possible venous stasis given her history of chronic DVT. Another important explanation is the gdnfu-fuqkuh-cvdl disease of the skin given her history of peripheral stem cell transplant. 2. Chronic DVT of the right lower extremity 3. History of AML status post peripheral stem cell transplant complicated with dowhe-kjvnvk-esow disease Recommendations: After reviewing the pictures of the right leg wounds, I noticed no signs of infection of the wounds or cellulitis. Therefore, I would recommend stopping the Cipro and monitoring off of antibiotics at this point. Thank you for involving us in the care for Ms. Soto. We will sign off for now
[2024-03-17] MEDS: ALBUMIN 25% 25 GM/100 ML VIAL IV ONE (14:07)
[2024-03-17] MEDS: SODIUM CHLORIDE 0.9% 1,000 ML IV SCH (14:17)
--- NOTE | 2024-03-17 15:54 | XRay Report ---
XR hip BILL 2v w pelvis HISTORY: 69 years-old Female fall acute pelvic pain status post fall COMPARISON: CT abdomen and pelvis 03/31/2017 TECHNIQUE: AP view the pelvis with frog leg views of the hips FINDINGS: Progressively worsened severe osteoarthritis of the hips with prominent subchondral sclerosis, subcor tical cystic changes with chronic remodeling. Additionally, there is probable bilateral AVN, right gr eater than left with at least mild articular collapse of the right femoral head. Demineralized appear ance of the bones. No acute fracture or dislocation identified. Calcified uterine fibroids redemonstrated. IMPRESSION: 1. No acute fracture or dislocation identified. 2. Severe osteoarthritis of the hips has significantly worsened compared to the prior exam from 2019. 3. Avascular necrosis of the femoral head with partial articular collapse of the right femoral head. ACT 112: Negative or not required by law. The above report was generated using voice recognition software. It may contain grammatical, syntax o r spelling errors. Electronically signed by: Reinier Magaña M.D. 03/17/2024 3:51 PM
--- NOTE | 2024-03-17 16:28 | Hospitalist Progress Note ---
Date of Service March 17, 2024 Assessment & Plan (1) Wound infection: Plan 69-year-old lady with PMH of diet-controlled diabetes, hypothyroidism, hypokalemia and hypomagnesemia, Takotsubo cardiomyopathy, mitral valve prolapse, autoimmune hepatitis, GERD, chronic diarrhea alternating with constipation, amputation of left great toe, syncope, AML, AML relapse, leukemia cutis, chemotherapy-induced neutropenia, ITP, mnysi-qjhoqz-grkl disease, anasarca, d epression, GERD, anxiety disorder who lives at home with her and ambulates with a walker comes because of ongoing infection/wound in the right distal part of the clark now with increased pain. Per patient, wound popped up in the right clark about 5 weeks ago spontaneously, patient was evaluated as an outpatient where she was prescribed doxycycline and wound culture was obtained. She was taking doxycycline for about 5 days ago [employer] but she continued to have pain in the right lower extremity. She presented to the ED where her outpatient wound culture was reviewed and noted Pseudomonas. She was discharged on Cipro from the ED but she continued to have increasing lower extremity pain on the right LE and hence presented again to the ED on the same day. She reports chronic diarrhea alternating with constipation, denies cough or runny nose or sore throat or febrile illness. Patient reports appetite not being great since last few weeks [employer], likely 2/2 illness. Patient denies any chest pain or shortness of breath or palpitation. She is being managed for the following: Concern for RLE wound infection, ruled out infection Patient presenting with RLE wound associated with RLE pain. Outpatient wound culture with Pseudomonas. MRSA screen negative. Was on Cipro 03/15, d/w ID 03/16, likely noninfected ulcer DC'd antibiotic and c/w wound care. Monitor off antibiotic. Appreciate ID recs. Lower extremity DVT and superficial thrombosis: Admitting BLE venous Doppler with chronic DVT within bilateral common femoral veins. Acute appearing thrombus within the left greater saphenous vein extending 4.1 cm in length and closer to the junction with common femoral vein. Patient reports she has a history of chronic VT and she was on Eliquis in the past. discussed with hematology 03/15, plan to fully anticoagulate her.F/u w/ Dr Nielson on DC. Was on heparin, on hold due to fall (see below). Eliquis costs $174/month. Pt made aware. Pt would like to go on 1 month free coupon for eliquangelita and discuss need for further anticoagulation w/ Dr Nielson before committing to blood thinner co mpletely. Mechanical Fall: Patient reported that she slipped on the bathroom floor 03/16 evening and had a fall, hit her left side of the head/mid back and knees. No knee pain on exam. Thoracic spine and lumbar spine x-ray and CT head with no acute findings. Patient again had fall on 03/17 early afternoon. She reports that she was leaning forward to get to her walker in the bathroom and she fell. She states that she didn't know to use call freitas after being done in the restroom and was calling for help as she was done and since she didn't see help coming, she stood herself up and stooped forward towards walker when she lost balance and fell. This time she fell on her hip, hip xray w/ no acute findings. She reports she didn't hit her head. 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 Both episodes, she doesn't complain any lightheadedness, or chest pain or p alpitations. Ortho vitals are negative. Will get further ortho vitals, fall precaution. Pt complains of blurry vision but she believes her reading glass needs be updated. No ophthalmoplegia noted, no headache complaints, mentation intact, no focal neurological deficit noted. Pt advised to f/u w/ ophthalmo as OP. Will hold blood thinner again, will repeat CT H at 24 hour martin from last CT Head and if neg will resume blood thinner. c/w PT/OT, will likely benefit from rehab. Pt's was notified of 03/16 fall, called and left voicemail in an attempt to update 03/17 fall. Will hold diuretics today due to BP on the soft side, pt declines dizziness or palpitations. Resume once BP improves. Place her on ivf for today. Chronic lower extremity edema/lymphedema: Continue with home diuretics. Other chronic medical conditions: Continue with/resume home meds as when able. Apical ballooning cardiomyopathy, February 2012: Normal coronaries on return to her normal LV function per cardio notes Mitral valve prolapse with moderate mitral insufficiency: Continue with home diuretics and spironolactone. Monitor volume overload. Continue with cardiology as an outpatient as prior. Diet-controlled diabetes: Continue to monitor. A1c 4.4. Hypothyroidism: Continue home Synthroid GERD: Continue home omeprazole Hypomagnesia and hypokalemia: Continue home supplements. Continue to monitor replete while inpatient. Depression and anxiety: Continue home medications Leukopenia and anemia: Mostly from chemo. Continue to monitor. History of AML: Per oncology notes :Patient had induction chemotherapy in May 2016 with bone marrow biopsy showing residual disease and received reinduction chemotherapy and she again had evidence of residual disease post second induction chemotherapy and subsequently treated with hypomethylating therapy on which she accomplishes complete remission with persistent thrombocytopenia which was considered to represent autoimmune manifestation versus treatment related toxicity rather than active disease. 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 Later patient developed skin lesions and biopsies was consistent with leukemia cutis, extramedullary relapse of AML. She was started on decitabine and venetoclax. She received radiation treatment to right upper and lower extremity for leukemia cutis.Due to pancytopenia venetoclax was stopped. Currently she receiving Dacogen single agent 4 days in a month. Follows with heme-onc. DVT prophylaxis: hold hep drip until [address] H comes back. Disposition: Medical floor. PT/OT. CM to assist w/ dc plan. Full code Total time spent: 70 minutes. Admission and Anticipated Discharge Date Admission Date: March 15, 2024 Subjective Patient was seen and examined at bedside. Patient was lying in bed, on room air, NAD, resting comfortably. Patient reports improvement in her RLE pain, reports eating okay and moving bowels okay, expressed extreme happiness that she is back on regular diet. Patient's at bedside was also updated on plan of care, he voiced understanding and was agreeable to plan of care. Pt had fall 03/16 evening 03/17 early afternoon. Physical Exam Physical Exam: General- Not in distress Head- atraumatic Eyes- PERRL. ENT- oropharynx clear Neck- supple, no JVD. Lungs- clear to auscultation, no wheezing or crackles Heart- regular rate and rhythm; no murmur, no gallop. Abdomen- normal bowel sounds, soft, nontender, no distension. Extremities-b/l lower extremity edema present. wound see on right distal clark w/ surrounding erythema Neuro- alert, oriented PERRL,no facial palsy; no dysarthria; moves extremities Results & Data Results & Data Vital Signs (Past 12 Hours) Vital Signs Temp Pulse Resp BP BP Pulse Ox O2 Del Method 03/17/24 14:53 36.4 C L 67 16 94/61 L 100 Room Air 03/17/24 12:44 36.5 C 76 16 88/56 L 100 Room Air 03/17/24 08:01 73 125/77 03/17/24 07:07 36.4 C L 69 16 125/79 100 Room Air
--- NOTE | 2024-03-17 20:33 | CT Scan Report ---
Exam(s): CT HEAD Without Contrast EXAM: CT Head Without Intravenous Contrast CLINICAL HISTORY: Reason for exam: f/u [address] head, pt on blood thinner. TECHNIQUE: Axial computed tomography images of the head/brain without intravenous contrast. CTDI is 36.18 mGy and DLP is 547.75 mGy-cm. Automated exposure control was utilized for the study. A dose lowering technique was utilized adhering to the principles of ALARA. COMPARISON: March 16, 2024 FINDINGS: Brain: Mild cerebral atrophy and periventricular white matter low density consistent with chronic small vessel disease and/or senescent changes, unchanged. There is an old lacunar infarct in the right basal ganglia. No acute large vessel infarct or intracranial hemorrhage is seen. Ventricles: Mildly dilated. No mass or hemorrhage. Bones/joints: Unremarkable. No acute fracture. Soft tissues: Unremarkable. Sinuses: Unremarkable as visualized. No acute sinusitis. Mastoid air cells: Unremarkable as visualized. No mastoid effusion. IMPRESSION: Mild cerebral atrophy and periventricular white matter low density consistent with chronic small vessel disease and/or senescent changes, unchanged. There is an old lacunar infarct in the right basal ganglia. No acute large vessel infarct or intracranial hemorrhage is seen. Electronically signed by: Kash Givens MD 03/17/24 20:32 PM
[2024-03-17 22:04] VITALS: RESP 18
[2024-03-17] MEDS ORDERED: Nursing to Pharmacy Communication SCH (22:30)
[2024-03-18 08:05] LABS: Hematocrit (blood only) 30.8 % (37.0-47.0); Hemoglobin 10.2 g/dl (12.0-16.0); Mean Corpuscular Hemoglobin 37.5 pg (25.0-34.0); Mean Corpuscular Hgb Conc 33.1 g/dL (32.0-36.0); Mean Corpuscular Volume 113.2 fL (80.0-100.0); Mean Platelet Volume 9.1 fL (9.4-12.4); Platelet Count 257 K/uL (130-400); RDW Coefficient of Variation 15.1 % (11.5-14.5); RDW Standard Deviation 63.9 fL (36.4-46.3); Red Blood Count 2.72 M/uL (4.20-5.40); White Blood Count 2.48 K/ul (4.8-10.8)
[2024-03-18 08:30] LABS: ANTI-Xa, UFH(UnfractionatedHep 0.34 IU/ml (0.3-0.7)
[2024-03-18 08:31] LABS: Calcium 8.3 mg/dl (8.6-10.3); Est GFR (African American) 94.9 ml/min; Est GFR (Non-African American) 81.9 ml/min; Magnesium 1.8 mg/dl (1.7-2.4); Potassium 4.5 mmol/L (3.5-5.1)
--- NOTE | 2024-03-18 11:25 | Hospitalist Progress Note ---
Date of Service March 18, 2024 Assessment & Plan (1) Wound infection: Plan 69-year-old lady with PMH of diet-controlled diabetes, hypothyroidism, hypokalemia and hypomagnesemia, Takotsubo cardiomyopathy, mitral valve prolapse, autoimmune hepatitis, GERD, chronic diarrhea alternating with constipation, amputation of left great toe, syncope, AML, AML relapse, leukemia cutis, chemotherapy-induced neutropenia, ITP, [id number] disease, anasarca, d epression, GERD, anxiety disorder who lives at home with her and ambulates with a walker comes because of ongoing infection/wound in the right distal part of the clark now with increased pain. Per patient, wound popped up in the right clark about 5 weeks ago spontaneously, patient was evaluated as an outpatient where she was prescribed doxycycline and wound culture was obtained. She was taking doxycycline for about 5 days ago [employer] but she continued to have pain in the right lower extremity. She presented to the ED where her outpatient wound culture was reviewed and noted Pseudomonas. She was discharged on Cipro from the ED but she continued to have increasing lower extremity pain on the right LE and hence presented again to the ED on the same day. She reports chronic diarrhea alternating with constipation, denies cough or runny nose or sore throat or febrile illness. Patient reports appetite not being great since last few weeks [employer], likely 2/2 illness. Patient denies any chest pain or shortness of breath or palpitation. She is being managed for the following: Concern for RLE wound infection, ruled out infection Patient presenting with RLE wound associated with RLE pain. Outpatient wound culture with Pseudomonas. MRSA screen negative. Was on Cipro 03/15, d/w ID 03/16, likely noninfected ulcer DC'd antibiotic and c/w wound care. Monitor off antibiotic. Appreciate ID recs.-No more antibiotics Right leg wounds are noted in the picture Appreciate wound care nurse input and recommendation She will be [facility] afternoon Lower extremity DVT and superficial thrombosis: Admitting BLE venous Doppler with chronic DVT within bilateral common femoral veins. Acute appearing thrombus within the left greater saphenous vein extending 4.1 cm in length and closer to the junction with common femoral vein. Patient reports she has a history of chronic VT and she was on Eliquis in the past. Discussed with hematology 03/15, plan to fully anticoagulate her.F/u w/ Dr Nielson on DC. Was on heparin, on hold due to fall (see below). Eliquis costs $174/month. Pt made aware. Pt would like to go on 1 month free coupon for eliquis and discuss need for further anticoagulation w/ Dr Nielson before committing to blood thinner completely. Will start Eliquis from today Mechanical Fall: Patient reported that she slipped on the bathroom floor 03/16 evening and had a fall, hit her left side of the head/mid back and knees. No knee pain on exam. Thoracic spine and lumbar spine x-ray and CT head with no acute findings. Patient again had fall on 03/17 early afternoon. She reports that she was leaning forward to get to her walker in the bathroom and she fell. She states that she didn't know to use call freitas after being done in the restroom and was calling for help as she was done and since she didn't see help coming, she stood herself up and stooped forward towards walker when she lost balance and fell. This time she fell on her hip, hip xray w/ no acute findings. She reports she didn't hit her head. 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 Both episodes, she doesn't complain any lightheadedness, or chest pain or palpitations. Ortho vitals are negative. Will get further ortho vitals, fall precaution. Pt complains of blurry vision but she believes her reading glass needs be updated. No ophthalmoplegia noted, no headache complaints, mentation intact, no focal neurological deficit noted. Pt advised to f/u w/ ophthalmo as OP. Will hold blood thinner again, will repeat CT H at 24 hour martin from last CT Head and if neg will resume blood thinner. c/w PT/OT, will likely benefit from rehab. Pt's was notified of 03/16 fall, called and left voicemail in an attempt to update 03/17 fall. Will hold diuretics today due to BP on the soft side, pt declines dizziness or palpitations. Resume once BP improves. CT of the head did not show any intracranial bleeding and heparin was restarted She will be going [facility] afternoon on Eliquis Chronic lower extremity edema/lymphedema: Continue with home diuretics. Other chronic medical conditions: Continue with/resume home meds as when able. Apical ballooning cardiomyopathy, February 2012: Normal coronaries on return to her normal LV function per cardio notes Mitral valve prolapse with moderate mitral insufficiency: Continue with home diuretics and spironolactone. Monitor volume overload. Continue with cardiology as an outpatient as prior. Diet-controlled diabetes: Continue to monitor. A1c 4.4. Hypothyroidism: Continue home Synthroid GERD: Continue home omeprazole Hypomagnesia and hypokalemia: Continue home supplements. Continue to monitor replete while inpatient. Depression and anxiety: Continue home medications Leukopenia and anemia: Mostly from chemo. Continue to monitor. History of AML: Per oncology notes :Patient had induction chemotherapy in May 2016 with bone marrow biopsy showing residual disease and received reinduction chemotherapy and she again had evidence of residual disease post second induction chemotherapy and subsequently treated with hypomethylating therapy on which she accomplishes complete remission with persistent thrombocytopenia which was considered to represent autoimmune manifestation versus treatment related toxicity rather than active disease. 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 Later patient developed skin lesions and biopsies was consistent with leukemia cutis, extramedullary relapse of AML. She was started on decitabine and venetoclax. She received radiation treatment to right upper and lower extremity for leukemia cutis.Due to pancytopenia venetoclax was stopped. Currently she receiving Dacogen single agent 4 days in a month. Follows with heme-onc. DVT prophylaxis: Has been on intravenous heparin and we will oral Eliquis on discharge right CVA was Disposition: Medical floor. PT/OT. CM to assist w/ dc plan. Full code Admission and Anticipated Discharge Date Admission Date: March 15, 2024 Subjective 03/18/2024 The patient was seen and examined in medical floor She has been weak and lethargic Has had 2 falls yesterday without any significant injury and the CT of the head was negative for any bleed She has been getting physical therapy Denies any other significant symptoms and will be sent [facility] this afternoon Review of Systems Review of Systems: All systems reviewed & are unremarkable except as noted in Subjective Physical Exam Physical Exam: Sitting at the edge of the bed without any acute distress Constitutional: + ill appearing and + thin Eyes: PERRL, conjunctivae normal, anicteric sclerae ENMT: external ear and nose normal, oropharynx normal Neck: trachea midline, no thyromegaly Respiratory: no respiratory distress Auscultation: lungs clear to auscultation bilaterally Cardiovascular: Rate/Rhythm: regular rate and regular rhythm; not tachycardic Heart Sounds: normal S1 and normal S2; no murmur Extremities: + edema (Chronic edema bilaterally with skin changes) Gastrointestinal (Abdomen): Inspection/Auscultation: normal bowel sounds; abdomen not distended Percussion/Palpation: abdomen soft; abdomen nontender Musculoskeletal: No acute arthritis involving any of the joints Neurologic: normal touch/pain/proprioception and moves all extremities; no focal motor deficits Psychiatric: A+Ox3, euthymic affect Lymphatic: no cervical or axillary lymphadenopathy Results & Data Results & Data Vital Signs (Past 12 Hours) Vital Signs Temp Pulse Resp BP Pulse Ox O2 Del Method 03/18/24 08:19 36.5 C 75 18 122/82 94 Room Air Laboratory Results Short CBC 03/18/24 Range/Units 07:54 WBC 2.48 L (4.8-10.8) K/ul Hgb 10.2 L (12.0-16.0) g/dl Hct 30.8 L (37.0-47.0) % Plt Count 257 (130-400) K/uL BMP 03/18/24 07:53 Sodium 138 Potassium 4.5 Chloride 103 Carbon Dioxide 31 BUN 6 Creatinine 0.75 Glucose 81 Calcium 8.3 L Medications Administered Current Inpatient Medications Acetaminophen (Acetaminophen 325 Mg Tab) 650 mg PO Q4H PRN PRN Reason: pain/fever Stop: 04/14/24 03:13 Last Admin: 03/16/24 23:52 Dose: 650 mg Acetic Acid (Acetic Acid 0.25% Irrig Soln 1000 Ml Plct) 1 appln IR BID VIRAJ Stop: 04/15/24 20:59 Last Admin: 03/18/24 08:18 Dose: 1 appln Bupropion HCl (Bupropion Xl 300 Mg Tabcr) 300 mg PO QAM [facility] Stop: 04/14/24 08:59 Last Admin: 03/18/24 08:23 Dose: 300 mg Bupropion HCl (Bupropion Xl 150 Mg Tabcr) 150 mg PO QAM [facility] Stop: 04/14/24 08:59 Last Admin: 03/18/24 08:21 Dose: 150 mg Buspirone HCl (Buspirone 5 Mg Tab) 10 mg PO DAILY@1400 [facility] Stop: 04/14/24 13:59 Last Admin: 03/17/24 13:38 Dose: 10 mg Buspirone HCl (Buspirone 5 Mg Tab) 20 mg PO BID VIRAJ Stop: 04/14/24 08:59 Last Admin: 03/18/24 08:20 Dose: 20 mg Calcium/Vitamin D (Calcium 600mg + Vit D 400 Iu Tab) 1 tab PO DAILY VIRAJ Stop: 04/14/24 08:59 Last Admin: 03/18/24 08:22 Dose: 1 tab Cyanocobalamin (Cyanocobalamin (B-12) 500 Mcg Tablet) 1,000 mcg PO DAILY VIRAJ Stop: 04/14/24 08:59 Last Admin: 03/18/24 08:23 Dose: 1,000 mcg Furosemide (Furosemide 40 Mg Tab) 40 mg PO QAM VIRAJ Stop: 04/14/24 08:59 Last Admin: 03/17/24 07:51 Dose: 40 mg Gabapentin (Gabapentin 300 Mg Cap) 600 mg PO BID VIRAJ Stop: 04/14/24 08:59 Last Admin: 03/18/24 08:22 Dose: 600 mg Heparin Sodium (Porcine) (Heparin 100 Unit/Ml 5ml Flush) 5 ml FLUSH PRN PRN PRN Reason: Flush Stop: 04/16/24 01:07 Heparin Sodium/Dextrose (Heparin Sodium/Dextrose) 25,000 units in 500 mls @ 13 mls/hr IV .Q24H [facility]; Protocol Stop: 04/14/24 08:59 Last Titration: 03/18/24 08:18 Dose: 650 units/hr, 13 mls/hr Levothyroxine Sodium (Levothyroxine Sodium 150 Mcg Tablet) 150 mcg PO DAILYBB [facility] Stop: 04/14/24 06:29 Last Admin: 03/18/24 05:02 Dose: 150 mcg Lorazepam (Lorazepam 0.5 Mg Tab) 0.5 mg PO DAILY PRN PRN Reason: Anxiety Stop: 04/14/24 03:13 Last Admin: 03/16/24 21:06 Dose: 0.5 mg Magnesium Oxide (Magnesium Oxide 400 Mg Tab) 800 mg PO BID VIRAJ Stop: 04/14/24 08:59 Last Admin: 03/18/24 08:22 Dose: 800 mg Metoprolol Succinate (Metoprolol Succ 25mg Ext Rel Tab) 12.5 mg PO DAILY [facility] Stop: 04/14/24 08:59 Last Admin: 03/18/24 08:24 Dose: 12.5 mg Ondansetron HCl (Ondansetron Inj 2 Mg/Ml 2 Ml Vial) 4 mg IV Q6H PRN PRN Reason: Nausea Stop: 04/14/24 03:13 Oxycodone HCl (Oxycodone Hcl Ir 5 Mg Tab (Immediate Release)) 5 mg PO Q6H PRN PRN Reason: Moderate Pain (Scale 4, 5, 6) Stop: 03/29/24 03:13 Last Admin: 03/17/24 21:32 Dose: 5 mg Pantoprazole Sodium (Pantoprazole 40 Mg Tab) 40 mg PO DAILY [facility] Stop: 04/14/24 08:59 Last Admin: 03/18/24 08:23 Dose: 40 mg Potassium Chloride (Potassium Chloride Crtab 20 Meq Tabcr) 20 meq PO DAILY VIRAJ Stop: 04/14/24 08:59 Last Admin: 03/18/24 08:40 Dose: Not Given Spironolactone (Spironolactone 12.5 Mg Tab) 12.5 mg PO DAILY [facility] Stop: 04/14/24 08:59 Last Admin: 03/17/24 07:51 Dose: 12.5 mg
[2024-03-18] MEDS: APIXABAN 5 MG TABLET PO SCH (12:20)
[2024-03-18 13:37] VITALS: BP 108/62; PULSE 67; TEMP 97.5; O2SAT 100
--- NOTE | 2024-03-19 07:42 | Discharge Summary ---
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 As per patient wound popped up in the right clark about 5 weeks ago spontaneously. As it was not getting better went to PCP about a week ago and cultures were drawn and prescribed doxycycline. She starting taking Doxy since last Saturday. And has she was having spasms of pain in the right lower extremity she was in the ER yesterday night. ER checked epic and cultures came back with Pseudomonas and she was discharged on Cipro. Patient could not get her prescription Cipro filled today as pharmacy was closed by the time they went there. In evening patient and went outside and came back and she started having excruciating pain in the right lower extremity and called EMS and came back. Currently resting comfortably hemodynamically stable. States gets headaches on and off. On and off nausea. Vision is okay. No runny nose or sore throat. No cough. No difficulty swallowing. Appetite is not great. Denies any chest p ain. Currently no shortness of breath. No palpitations. No abdominal pain. On and off she gets diarrhea. Denies any black stools. Micturating okay. Denies fevers. As per since December she developed lower extremity edema and she was seen by specialist nephrology cardiology and vascular surgery and finally thought it was lymphedema and she is using stockings and diuretics and says edema is much better now Past medical history. As mentioned above Past surgical history. Amputation of the left toe. Bone marrow aspiration. Colonoscopy. EGD. Injection of lumbosacral spine. Removal of Hastings catheter. TMJ arthroscopy. Social history. . No smoking. Alcohol rarely. No drug use. Family history. Maternal cousin had breast cancer in 30s. Maternal grandmother had breast cancer. Mother had head and neck cancer.COPD. Carotid stenosis. Stroke. Father had esophageal cancer. Heart attack. Hypertension. Sister has thyroid disorder. Admission Exam Per Admitting Provider Physical Exam: General- Not in distress Head- atraumatic Eyes- PERRL. ENT- oropharynx clear Neck- supple, no JVD. Lungs- clear to auscultation, no wheezing or crackles Heart- regular rate and rhythm; no murmur, no gallop. Abdomen- normal bowel sounds, soft, nontender, no distension. Extremities-b/l lower extremity edema present. wound see on right distal clark Neuro- alert, oriented PERRL,no facial palsy; no dysarthria; moves extremities Principal Diagnosis Right lower leg wound without any infection,Acute and chronic lower extremity DVT,Cardiomyopathy, history of AML Discharge Exam Sitting at the edge of the bed without any acute distress Constitutional + ill appearing and + thin Eyes PERRL, conjunctivae normal, anicteric sclerae ENMT external ear and nose normal, oropharynx normal Neck trachea midline, no thyromegaly Respiratory no respiratory distress Auscultation: lungs clear to auscultation bilaterally Cardiovascular Rate/Rhythm: regular rate and regular rhythm; not tachycardic Heart Sounds: normal S1 and normal S2; no murmur Extremities: + edema (Chronic edema bilaterally with skin changes) Gastrointestinal (Abdomen) Inspection/Auscultation: normal bowel sounds; abdomen not distended Percussion/Palpation: abdomen soft; abdomen nontender Neurologic normal touch/pain/proprioception and moves all extremities; no focal motor deficits Psychiatric A+Ox3, euthymic affect Lymphatic no cervical or axillary lymphadenopathy Discharge Data Allergies Allergy/AdvReac Type Severity Reaction Status Date / Time amoxicillin AdvReac Intermediate NAUSEA/VOMI Verified 03/15/24 01:04 TING Penicillins AdvReac Intermediate NAUSEA/VOMITING/"FEELS Verified 03/15/24 01:04 NERVOUS" Consultations 03/15/24 01:49 ED Decision to Admit Stat 03/15/24 09:00 Consult Infectious Diseases Routine Ordered Studies 03/15/24 03:14 US venous doppler LE BI Routine 03/16/24 18:26 CT head/brain wo con Stat 03/17/24 19:00 CT head/brain wo con Routine Hospital Course (1) Wound infection: Plan 69-year-old lady with PMH of diet-controlled diabetes, hypothyroidism, hypoka lemia and hypomagnesemia, Takotsubo cardiomyopathy, mitral valve prolapse, autoimmune hepatitis, GERD, chronic diarrhea alternating with constipation, amputation of left great toe, syncope, AML, AML relapse, leukemia cutis, chemotherapy-induced neutropenia, ITP, epyko-aukdmh-[id number] disease, anasarca, depression, GERD, anxiety disorder who lives at home with her and ambulates with a walker comes because of ongoing infection/wound in the right distal part of the clark now with increased pain. Per patient, wound popped up in the right clark about 5 weeks ago spontaneously, patient was evaluated as an outpatient where she was prescribed doxycycline and wound culture was obtained. She was taking doxycycline for about 5 days ago [employer] but she continued to have pain in the right lower extremity. She presented to the ED where her outpatient wound culture was reviewed and noted Pseudomonas. She was discharged on Cipro from the ED but she continued to have increasing lower extremity pain on the right LE and hence presented again to the ED on the same day. She reports chronic diarrhea alternating with constipation, denies cough or runny nose or sore throat or febrile illness. Patient reports appetite not being great since last few weeks [employer], likely 2/2 illness. Patient denies any chest pain or shortness of breath or palpitation. She is being managed for the following: Concern for RLE wound infection, ruled out infection Patient presenting with RLE wound associated with RLE pain. Outpatient wound culture with Pseudomonas. MRSA screen negative. Was on Cipro 03/15, d/w ID 03/16, likely noninfected ulcer DC'd antibiotic and c/w wound care. Monitor off antibiotic. Appreciate ID recs.-No more antibiotics Right leg wounds are noted in the picture Appreciate wound care nurse input and recommendation She will be discharged to [facility] this afternoon Lower extremity DVT and superficial thrombosis: Admitting BLE venous Doppler with chronic DVT within bilateral common femoral veins. Acute appearing thrombus within the left greater saphenous vein extending 4.1 cm in length and closer to the junction with common femoral vein. Patient reports she has a history of chronic VT and she was on Eliquis in the past. Discussed with hematology 03/15, plan to fully anticoagulate her.F/u w/ Dr Nielson on DC. Was on heparin, on hold due to fall (see below). Eliquis costs $174/month. Pt made aware. Pt would like to go on 1 month free coupon for eliquis and discuss need for further anticoagulation w/ Dr Nielson before committing to blood thinner completely. Will start Eliquis from today Mechanical Fall: Patient reported that she slipped on the bathroom floor 03/16 evening and had a fall, hit her left side of the head/mid back and knees. No knee pain on exam. Thoracic spine and lumbar spine x-ray and CT head with no acute findings. Patient again had fall on 03/17 early afternoon. She reports that she was leaning forward to get to her walker in the bathroom and she fell. She states that she didn't know to use call freitas after being done in the restroom and was calling for help as she was done and since she didn't see help coming, she stood herself up and stooped forward towards walker when she lost balance and fell. This time she fell on her hip, hip xray w/ no acute findings. She reports she didn't hit her head. 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 Both episodes, she doesn't complain any lightheadedness, or chest pain or palpitations. Ortho vitals are negative. Will get further ortho vitals, fall precaution. Pt complains of blurry vision but she believes her reading glass needs be updated. No ophthalmoplegia noted, no headache complaints, mentation intact, no focal neurological deficit noted. Pt advised to f/u w/ ophthalmo as OP. Will hold blood thinner again, will repeat CT H at 24 hour martin from last CT Head and if neg will resume blood thinner. c/w PT/OT, will likely benefit from rehab. Pt's was notified of 03/16 fall, called and left voicemail in an attempt to update 03/17 fall. Will hold diuretics today due to BP on the soft side, pt declines dizziness or palpitations. Resume once BP improves. CT of the head did not show any intracranial bleeding and heparin was restarted She will be going to [facility] this afternoon on Eliquis Chronic lower extremity edema/lymphedema: Continue with home diuretics. Other chronic medical conditions: Continue with/resume home meds as when able. Apical ballooning cardiomyopathy, February 2012: Normal coronaries on return to her normal LV function per cardio notes Mitral valve prolapse with moderate mitral insufficiency: Continue with home diuretics and spironolactone. Monitor volume overload. Continue with cardiology as an outpatient as prior. Diet-controlled diabetes: Continue to monitor. A1c 4.4. Hypothyroidism: Continue home Synthroid GERD: Continue home omeprazole Hypomagnesia and hypokalemia: Continue home supplements. Continue to monitor replete while inpatient. Depression and anxiety: Continue home medications Leukopenia and anemia: Mostly from chemo. Continue to monitor. History of AML: Per oncology notes :Patient had induction chemotherapy in May 2016 with bone marrow biopsy showing residual disease and received reinduction chemotherapy and she again had evidence of residual disease post second induction chemotherapy and subsequently treated with hypomethylating therapy on which she accomplishes complete remission with persistent thrombocytopenia which was considered to represent autoimmune manifestation versus treatment related toxicity rather than active disease. 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 Later patient developed skin lesions and biopsies was consistent with leukemia cutis, extramedullary relapse of AML. She was started on decitabine and venetoclax. She received radiation treatment to right upper and lower extremity for leukemia cutis.Due to pancytopenia venetoclax was stopped. Currently she receiving Dacogen single agent 4 days in a month. Follows with heme-onc. DVT prophylaxis: Has been on intravenous heparin and we will oral Eliquis on discharge right CVA was Disposition: Medical floor. PT/OT. CM to assist w/ dc plan. Full code Total Time Total Time Spent Total Time Spent (In Minutes): 40 minutes Discharge Plan Discharge Items Patient Disposition: Transfer Inpatient Rehab Fac Reason For Visit: RIGHT LOWER EXTREMITY WOUND Discharge Diagnosis: Right lower leg wound without any infection,Acute and chronic lower extremity DVT,Cardiomyopathy, history of AML Activity: As commented below Activity Comment: Will need to continue PT and OT Non-emergency contact: Primary Care Provider Call non-emergency contact if: you have any medication questions and your symptoms worsen Follow-up/Referrals: Joe Peng, DO [Primary Care Provider] - (Please make an appointment with your PCP within 7 days following discharge from the facility) Diet: Regular Addtl Attending Provider Instructions: Please take extra precautions to avoid falls Take your medications as advised Wound care discharge instruction: Clean with saline. Cover wounds with gauze dampened (not weight) with 1 / 4% acetic acid. Cover with gauze and secure with Kerlix. Change twice a day. Recommend follow-up at Center for wound care. Call [phone] for appointment Please keep follow-up appointments with the healthcare providers Pending Studies at Discharge: No Stand-Alone Forms: My [facility] Skilled Items Patient informed of condition?: Yes DNR: No Discharge Level of Care: Acute rehab Communicable Disease: No Discharge Prognosis: Stable Lines: None Urinary Catheter: No Medications and DC Order Prescriptions: New Eliquis 5 mg tablet 5 mg PO UD Qty: 74 0RF Rx Instructions: 10 mg bid for 7 days, then 5 mg bid there after. Eliquis 5 mg Tablet 10 mg PO BID Qty: 13 0RF Rx Instructions: And then 5 mg BID to continue Continued hydrocodone-acetaminophen 5-325 mg tablet 1 tab PO Q8H PRN (Reason: Pain) cyanocobalamin (vitamin B-12) [Vitamin B-12] 1,000 mcg tablet 1,000 mcg PO DAILY ondansetron 8 mg tablet,disintegrating 8 mg PO Q8H PRN (Reason: Nausea And Vomiting) levothyroxine 150 mcg tablet 150 mcg PO DAILYBB gabapentin 300 mg capsule 600 mg PO BID omeprazole 20 mg capsule,delayed release(DR/EC) 20 mg PO DAILY metoprolol succinate 25 mg tablet extended release 24 hr 12.5 mg PO DAILY potassium chloride 20 mEq Tablet Extended Release 20 meq PO DAILY calcium carbonate-vitamin D3 1,000 mg-20 mcg (800 unit) Tablet 1 tab PO DAILY prochlorperazine maleate [Compazine] 10 mg Tablet 10 mg PO Q8H PRN (Reason: Nausea) acetaminophen [Tylenol Extra Strength] 500 mg Tablet 500 mg PO Q6H PRN (Reason: Pain) lorazepam 0.5 mg Tablet 0.5 mg PO DAILY PRN (Reason: Anxiety) buspirone 10 mg tablet See Rx Instructions .ROUTE .COMPLEX Rx Instructions: TAKES 20 MG QAM & QHS, THEN 10 MG Q AFTERNOON. bupropion HCl 300 mg tablet extended release 24 hr 300 mg PO QAM Rx Instructions: TOTAL DOSE 450 MG--TAKES WITH 150 MG TAB. bupropion HCl 150 mg tablet extended release 24 hr 150 mg PO QAM Rx Instructions: TOTAL DOSE 450 MG--TAKES WITH 300 MG TAB. magnesium oxide 400 mg magnesium Tablet 800 mg PO BID furosemide [Lasix] 40 mg Tablet 40 mg PO QAM fluoride (sodium) [Sodium Fluoride 5000 Dry Mouth] 1.1 % Paste 1 applic DENTAL HS ergocalciferol (vitamin D2) 1,250 mcg (50,000 unit) capsule 50,000 unit PO WK Rx Instructions: MONDAYS oxycodone 5 mg tablet 5 mg PO Q6H PRN (Reason: pain) Qty: 10 0RF spironolactone 25 mg tablet 12.5 mg PO DAILY Discontinued ciprofloxacin HCl [Cipro] 500 mg tablet 500 mg PO BID Qty: 20 0RF Rx Instructions: PER PT "DID NOT START YET" Discharge Orders: Discharge Order (Routine); Ordered 03/18/24 Ordered By: Romero Neal/Other Patient Handouts: Apixaban Oral Tablet, Understanding Deep Vein Thrombosis, Nutrition for Wound Healing, DVT Tx Admission Data Admit Date/Time: 03/15/24 02:40 Attending Provider: Romero Kaur Admit Provider: Garland Dooley Primary Care Provider: Joe Peng Other Providers: Garland Dooley; Ahsan Moreno; Chemo Conde; Sushil Givens I.; Chino Palacio II; Erin Orantes; Martin Coffman; Sonny Parker; Wan Pete; [facility]; Gabino Triplett
== END 2024-03-18 15:16 | DRG 593 ==
LOC: ED 00:36 → EDINP 02:40 → SUATTDRO 02:40 → 3E 03:15

== ENCOUNTER 2024-04-28 02:49 | Inpatient (IN) ==
[2024-04-28] MEDS: ACETAMINOPHEN 325 MG TAB PO STA (04:09)
[2024-04-28] MEDS: HYDROmorphone INJ 0.5 MG/0.5 ML SYR IM STA (04:10)
--- NOTE | 2024-04-28 04:11 | Emergency Department Note ---
Impression & Plan Chronic leg pain, Leg wound, right ED Provider Note ED Provider Note NAME: JONATHAN YEN AGE:69 SEX: Female : 1955 ARRIVES VIA: Private vehicle INFORMANT: Patient ED PROVIDER(s): Octavia Da Silva DO CHIEF COMPLAINT: Leg pain HPI: This is a 69-year-old female who presents emerged from due to concern for worsening right lower extremity pain. Patient with chronic right lower extremity wounds, is following with wound care, and was seen by them yesterday. Patient was seen and evaluated in the emergency department 48 hours ago and did have labs which were reassuring. It wound care culture was obtained at that time and she had been given a dose of Cipro. She was told by the wound care team yesterday not to continue the Cipro until the results of the wound culture were known. Yesterday as an outpatient she had ultrasounds both arterial and venous of her lower extremity for additional evaluation. 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 Patient states she does use Tylenol and oxycodone at home for pain although this evening woke up with persistent pain and despite an additional half dose of oxycodone around 1 AM cannot fall back to sleep. She states she does typically elevate the legs. She states she cannot use compression stockings due to worsening pain. She has not noticed any increased redness or drainage from the wounds to the right lower extremity. No worsening edema or warmth. She states the wounds do not appear any larger. PAST MEDICAL HISTORY:See Below PAST SURGICAL HISTORY:See Below FAMILY HISTORY:See Below SOCIAL HISTORY:See Below HOME MEDICATIONS:See Below ALLERGIES:See Below VITALS:See Below PHYSICAL EXAMINATION: GENERAL: alert, well appearing, well nourished, no distress, non-toxic EYE EXAM: normal conjunctiva, PERRL and EOM's grossly intact OROPHARYNX: no exudate, no erythema, lips, buccal mucosa, and tongue normal and mucous membranes are moist NECK: supple, no nuchal rigidity, no adenopathy, non-tender LUNGS: Clear to auscultation. Normal chest wall mechanics, no w/r/r HEART: no murmurs, S1 normal and S2 normal ABDOMEN: abdomen soft, non-tender, normo-active bowel sounds, no masses, no rebound or guarding. SKIN: no rashes, petechiae, orbruising UPPER EXTREMITIES: upper extremities are grossly normal. FROM, nml pulses b/l. LOWER EXTREMITIES: 1+ bilateral pitting edema. FROM, nml pulses b/l. 2 superficial appearing concave wounds noted to the distal anterior right lower extremity. No increased erythema, crepitus, drainage/bleeding noted. NEURO EXAM: Normal sensorium, cranial nerves II-XII grossly intact, normal speech, no facial droop,nogross weakness of arms, no gross weakness of legs. Gross sensation intact. No ataxia. Vital Signs: reviewed and remarkable Differential Diagnosis: Cellulitis, chronic pain, abscess, necrotizing fasciitis, medication ADR, lymphedema, CRPS, as well as others were considered MEDICAL DECISION MAKING: This is a 69-year-old female presents emergency department due to worsening right lower extremity pain in the area of chronic wounds. Patient has been taking Tylenol and oxycodone at home but this was not enough to control her pain this evening she presented here. She was given IM Dilaudid and additional Tylenol oxycodone. While she appeared comfortable she continued to report 10/10 pain. Upon additional evaluation we discussed options for disposition. Given patient with recent reassuring labs in the last 48 hours and reassuring arterial and venous ultrasounds yesterday, I did not initially feel patient warranted additional labs or imaging. Patient reported she cannot go home in this much pain and requested additional inpatient management. In light of this decision, hospitalist team contacted, labs drawn and sent and IV established. Consultations: 0645: Discussed with Dr. Hansen, [facility] hospitalist team, for additional evaluation and mgmt. ER Treatment Provided: See below 0630: Patient stating her pain is no better after several medications. Patient tearful and crying stating "I cannot go home like this. Do not send me home like this." She reported to nursing staff "the last time I was this bad they admitted me". Diagnostics Interpreted By Me: Triage Nursing Note Reviewed Prior/Outside Records Reviewed -wound care clinic note from yesterday, arterial and venous ultrasounds from yesterday Past Med/Surg History Problem List Pain of right lower extremity Leg wound, right (Acute) Chronic leg pain (Acute) Acute pain of right lower extremity (Acute) Venous stasis ulcer of right lower extremity (Acute) Lower extremity edema Venous ulcer of right leg (Acute) Cellulitis (Acute) Pseudomonas infection (Acute) Lab test positive for detection of COVID-19 virus (Acute) Anemia (Acute) Leukemia cutis (Acute) Encounter for pre-operative examination Leukemia cutis (Chronic) Encounter for pre-operative examination Weight loss Diarrhea Unresponsiveness (Acute) Pancytopenia (Acute) Hypotension (Acute) AML (acute myeloblastic leukemia) (Acute) H/O colonoscopy (Chronic) "06/04/2014 diverticulosis, repeat 5 yrs" S/P anal fissurectomy (Chronic) Takotsubo cardiomyopathy (Chronic) Transaminitis Hypothyroidism (Chronic) Hyperbilirubinemia AML (acute myelogenous leukemia) (Chronic) Medical History Lymphedema Acute alteration in mental status S/P radiation therapy before bone marrow transplant 12-11-2016 History of diabetes mellitus HX STEROID INDUCED DIABETES, NOW RESOLVED Low blood pressure Sepsis due to Pseudomonas species with acute organ dysfunction and septic shock this happened 100 days after the transplant CMV (cytomegalovirus infection) HX ? PT NOT SURE Autoimmune hepatitis Nausea and vomiting after administration of anesthetic agent Hypothyroidism AML (acute myeloblastic leukemia) diagnosed - CURRENT CHEMOTHERAPY/PORT RIGHT CHEST TMJ disease HX SURGERY, RESOLVED PROBLEM Depression Anxiety Migraine HX Takotsubo cardiomyopathy reason for metoprolol--follows with Dr. 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 History of amputation of toe left big toe History of hemorrhoidectomy History of colonoscopy History of esophagogastroduodenoscopy (EGD) History of vascular access device right APORT History of mandibular surgery TMJ sx--plate in right side of jaw History of tooth extraction History of wisdom tooth extraction History of cardiac cath 2012 in [place]---no stents Family History Sister Family history of diabetes mellitus Mother , age 84 Head and neck cancer COPD (chronic obstructive pulmonary disease) Father , age 75 Esophageal cancer Sister Vertigo Hypertension Sister Hypothyroidism Brother Combined hyperlipidemia Brother Colorectal cancer Brother Gout Brother No problems noted. Grandmother (Maternal) Breast cancer Other No family history of adverse response to anesthesia Social History Smoking Status: Never smoker Second Hand Exposure: No; Do You Dip or Chew Tobacco: No; Hx Alcohol Use: Yes Alcohol type: wine and hard liquor Alcohol Intake Frequency: Monthly or Less Hx Substance Use: No Preferred Language: Lao Communication Ability: Effective Visual Impairment: Partially Limited Hearing Ability: Normal Publications Writer Required: No Beliefs That Will Affect Care: None marital status: Current Living Situation: Spouse Current Living Situation Comment: lives with current occupational status: retired 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 Other Information That Helps Us Care for You: No Feels Safe at Home: Yes Safety Concerns: Feels Safe At This Time Childhood Exposure to Second-Hand Smoke: Yes Assistive Devices: Glasses and Walker Allergies Allergies Allergy/AdvReac Type Severity Reaction Status Date / Time amoxicillin AdvReac Intermediate NAUSEA/VOMI Verified 04/28/24 09:53 TING Penicillins AdvReac Intermediate NAUSEA/VOMITING/"FEELS Verified 04/28/24 09:53 NERVOUS" Home Meds Home Medications Medication Instructions Recorded Confirmed acetaminophen 500 mg tablet 500 mg PO Q6H PRN Pain 08/22/23 04/28/24 (Tylenol Extra Strength) bupropion HCl 150 mg 24 hr tablet, 150 mg PO QAM 08/22/23 04/28/24 extended release bupropion HCl 300 mg 24 hr tablet, 300 mg PO QAM 08/22/23 04/28/24 extended release buspirone 10 mg tablet See Rx Instructions .Route .COMPLEX 08/22/23 04/28/24 calcium carbonate 1,000 mg-vitamin 1 tab PO DAILY 08/22/23 04/28/24 D3 20 mcg (800 unit) tablet cyanocobalamin (vitamin B-12) 1,000 mcg PO DAILY 08/22/23 04/28/24 1,000 mcg tablet (Vitamin B-12) gabapentin 300 mg capsule 600 mg PO BID 08/22/23 04/28/24 levothyroxine 150 mcg tablet 150 mcg PO DAILYBB 08/22/23 04/28/24 lorazepam 0.5 mg tablet 0.5 mg PO DAILY PRN Anxiety 08/22/23 04/28/24 magnesium oxide 800 mg PO BID 08/22/23 04/28/24 metoprolol succinate 25 mg 12.5 mg PO DAILY 08/22/23 04/28/24 tablet,extended release 24 hr omeprazole 20 mg capsule,delayed 20 mg PO DAILY 08/22/23 04/28/24 release ondansetron 8 mg disintegrating 8 mg PO Q8H PRN Nausea And Vomiting 08/22/23 04/28/24 tablet potassium chloride 20 mEq 20 meq PO DAILY 08/22/23 04/28/24 tablet,extended release prochlorperazine maleate 10 mg 10 mg PO Q8H PRN Nausea 08/22/23 04/28/24 tablet (Compazine) ergocalciferol (vitamin D2) 1,250 50,000 unit PO WK 12/25/23 04/28/24 mcg (50,000 unit) capsule fluoride (sodium) 1.1 % dental 1 applic dental HS 12/25/23 04/28/24 paste (Sodium Fluoride 5000 Dry Mouth) furosemide 40 mg tablet (Lasix) 40 mg PO QAM 12/25/23 04/28/24 spironolactone 25 mg tablet 12.5 mg PO DAILY 03/14/24 04/28/24 apixaban 5 mg tablet (Eliquis) 5 mg PO BID 04/16/24 04/28/24 Previous Rx's Medication Instructions Recorded oxycodone 5 mg tablet 5 mg PO Q6H PRN pain #10 tabs 12/25/23 Results & Data (ED) Vital Signs Vital Signs - 24 hr 04/28/24 03:15 04/28/24 03:25 04/28/24 03:29 Pulse Rate 76 71 Pulse Rate [Left Radial] 74 Pulse Rate from SpO2 Sensor 77 Pulse Rhythm [Left Radial] Regular Pulse Strength [Left Radial] Normal Respiratory Rate 13 22 Respiratory Effort / Characteristics Non-Labored Spontaneous Respiratory Depth Normal Respiratory Pattern Regular Blood Pressure 129/78 Blood Pressure [Right Arm] 129/78 Blood Pressure Mean 95 Blood Pressure Mean [Right Arm] 95 Pulse Oximetry 100 100 Oxygen Delivery Method Room Air 04/28/24 03:30 04/28/24 04:00 04/28/24 04:30 Pulse Rate 74 77 70 Pulse Rate [Left Radial] Pulse Rate from SpO2 Sensor 71 70 Pulse Rhythm [Left Radial] Pulse Strength [Left Radial] Respiratory Rate 15 16 17 Respiratory Effort / Characteristics Respiratory Depth Respiratory Pattern Blood Pressure 123/82 135/82 137/81 Blood Pressure [Right Arm] Blood Pressure Mean 95 115 111 Blood Pressure Mean [Right Arm] Pulse Oximetry 96 92 91 Oxygen Delivery Method 04/28/24 05:00 04/28/24 05:00 04/28/24 06:37 Pulse Rate 70 82 Pulse Rate [Left Radial] Pulse Rate from SpO2 Sensor 79 Pulse Rhythm [Left Radial] Pulse Strength [Left Radial] Respiratory Rate 22 16 18 Respiratory Effort / Characteristics Respiratory Depth Respiratory Pattern Blood Pressure 144/89 H 144/89 H 137/81 Blood Pressure [Right Arm] Blood Pressure Mean 107 107 99 Blood Pressure Mean [Right Arm] Pulse Oximetry 100 95 Oxygen Delivery Method 04/28/24 07:31 04/28/24 07:42 04/28/24 08:00 Pulse Rate Pulse Rate [Left Radial] Pulse Rate from SpO2 Sensor 70 Pulse Rhythm [Left Radial] Pulse Strength [Left Radial] Respiratory Rate 19 Respiratory Effort / Characteristics Respiratory Depth Respiratory Pattern Blood Pressure 141/60 H 120/70 Blood Pressure [Right Arm] Blood Pressure Mean 94 95 Blood Pressure Mean [Right Arm] Pulse Oximetry 95 Oxygen Delivery Method 04/28/24 08:03 04/28/24 08:07 04/28/24 08:27 Pulse Rate 73 79 76 Pulse Rate [Left Radial] Pulse Rate from SpO2 Sensor 72 Pulse Rhythm [Left Radial] Pulse Strength [Left Radial] Respiratory Rate 17 23 Respiratory Effort / Characteristics Respiratory Depth Respiratory Pattern Blood Pressure Blood Pressure [Right Arm] Blood Pressure Mean Blood Pressure Mean [Right Arm] Pulse Oximetry 99 95 Oxygen Delivery Method Room Air Room Air 04/28/24 08:30 04/28/24 09:03 Pulse Rate Pulse Rate [Left Radial] Pulse Rate from SpO2 Sensor 64 Pulse Rhythm [Left Radial] Pulse Strength [Left Radial] Respiratory Rate Respiratory Effort / Characteristics Respiratory Depth Respiratory Pattern Blood Pressure 127/70 Blood Pressure [Right Arm] Blood Pressure Mean 107 Blood Pressure Mean [Right Arm] Pulse Oximetry 97 Oxygen Delivery Method Laboratory Data 04/28/24 06:54 04/28/24 06:54 Lab Results 04/28/24 Range/Units 06:54 WBC 4.87 (4.8-10.8) K/ul RBC 2.97 L (4.20-5.40) M/uL Hgb 11.0 L (12.0-16.0) g/dl Hct 32.0 L (37.0-47.0) % MCV 107.7 H (80.0-100.0) fL MCH 37.0 H (25.0-34.0) pg MCHC 34.4 (32.0-36.0) g/dL RDW Std Deviation 54.2 H (36.4-46.3) fL RDW Coeff of Selam 13.9 (11.5-14.5) % Plt Count 88 L (130-400) K/uL MPV 9.6 (9.4-12.4) fL Immature Gran % (Auto) 0.8 % Neut % (Auto) 58.4 % Lymph % (Auto) 29.4 % [place] % (Auto) 5.1 % Eos % (Auto) 5.5 % Baso % (Auto) 0.8 % Neut # (Auto) 2.84 (1.40-6.50) K/uL Lymph # (Auto) 1.43 (1.20-3.40) K/uL [place] # (Auto) 0.25 (0.11-0.59) K/uL Eos # (Auto) 0.27 (0.00-0.50) K/uL Baso # (Auto) 0.04 (0.00-0.20) K/uL Immature Gran # (Auto) 0.04 (0.01-0.20) K/uL Platelet Estimate Decreased L (Normal) Sodium 140 (136-145) mmol/L Potassium 3.8 (3.5-5.1) mmol/L Chloride 101 (98-107) mmol/L Carbon Dioxide 33 H (21-32) mmol/L Anion Gap 6 (3-11) BUN 11 (6-23) mg/dl Creatinine 0.76 (0.6-1.2) mg/dl Est Cr Clr Drug Dosing Not Reportable Est GFR ( Amer) 93.4 ml/min Est GFR (Non-Af Amer) 80.6 ml/min BUN/Creatinine Ratio 14.5 (10-20) Glucose 87 (70-99(Fasting)) mg/dl Calcium 8.8 (8.6-10.3) mg/dl Total Bilirubin 0.7 (0.2-1.0) mg/dl AST 30 (13-39) U/L ALT 21 (7-52) U/L Alkaline Phosphatase 200 H (34-104) U/L Total Protein 5.4 L (6.0-8.3) gm/dl Albumin 3.0 L (3.4-5.0) gm/dl Globulin 2.4 L (2.5-4.0) gm/dl Albumin/Globulin Ratio 1.3 (0.9-2) Procalcitonin 0.08 (0-0.5) ng/ml Administered Medications Acetaminophen (Acetaminophen 325 Mg Tab) 650 mg PO Q6 [facility] Stop: 05/28/24 17:59 Last Admin: 04/28/24 23:17 Dose: 650 mg Documented By: Matilda Admin: 04/28/24 17:04 Dose: 650 mg Documented By: XI Apixaban (Apixaban 5 Mg Tablet) 5 mg PO BID [facility] Stop: 05/28/24 20:59 Last Admin: 04/28/24 20:36 Dose: 5 mg Documented By: ERIC Buspirone HCl (Buspirone 5 Mg Tab) 10 mg PO DAILY@1400 [facility] Stop: 05/28/24 13:59 Last Admin: 04/28/24 14:13 Dose: 10 mg Documented By: XI Buspirone HCl (Buspirone 5 Mg Tab) 20 mg PO AMHS [facility] Stop: 05/28/24 20:59 Last Admin: 04/28/24 20:36 Dose: 20 mg Documented By: ERIC Gabapentin (Gabapentin 300 Mg Cap) 600 mg PO BID [facility] Stop: 05/28/24 20:59 Last Admin: 04/28/24 20:35 Dose: 600 mg Documented By: ERIC Hydromorphone HCl (Hydromorphone Inj 1 Mg/Ml Syringe) 1 mg IV Q6H PRN PRN Reason: Severe Pain (Scale 7, 8, 9,10) Stop: 05/12/24 12:45 Last Admin: 04/28/24 16:54 Dose: 1 mg Documented By: XI Magnesium Oxide (Magnesium Oxide 400 Mg Tab) 800 mg PO BID [facility] Stop: 05/28/24 20:59 Last Admin: 04/28/24 20:35 Dose: 800 mg Documented By: ERIC Oxycodone/Acetaminophen (Oxycodone/Acetaminophen 5mg/325mg Tab) 1 tab PO Q4H PRN PRN Reason: Moderate Pain (Scale 4, 5, 6) Stop: 05/12/24 12:45 Last Admin: 04/28/24 23:17 Dose: 1 tab Documented By: Matilda Admin: 04/28/24 14:13 Dose: 1 tab Documented By: XI Discontinued Medications Acetaminophen (Acetaminophen 325 Mg Tab) 650 mg PO NOW STA Stop: 04/28/24 03:52 Last Admin: 04/28/24 04:09 Dose: 650 mg Documented By: ORA Hydromorphone HCl (Hydromorphone Inj 0.5 Mg/0.5 Ml Syr) 0.5 mg IM NOW STA Stop: 04/28/24 03:58 Last Admin: 04/28/24 04:10 Dose: 0.5 mg Documented By: ORA Sodium Chloride (Nss) 500 mls @ 80 mls/hr IV .Q6H15M VIRAJ Stop: 05/28/24 06:44 Last Infusion: 04/28/24 12:21 Dose: Infused Documented By: Admin: 04/28/24 06:54 Dose: 80 mls/hr Documented By: ORA Miscellaneous (Patient's Height &/Or Weight Needed) 1 each N/A Q2H VIRAJ Stop: 05/28/24 12:59 Last Admin: 04/28/24 13:00 Dose: 1 each Documented By: XI Oxycodone HCl (Oxycodone Hcl Ir 5 Mg Tab (Immediate Release)) 2.5 mg PO NOW STA Stop: 04/28/24 05:08 Last Admin: 04/28/24 05:23 Dose: 2.5 mg Documented By: ORA Oxycodone HCl (Oxycodone Hcl Ir 5 Mg Tab (Immediate Release)) 2.5 mg PO NOW STA Stop: 04/28/24 06:11 Last Admin: 04/28/24 06:15 Dose: 2.5 mg Documented By: ORA Discharge Plan Visit Data Chief Complaint: Leg Injury/Pain Stated Complaint: PAIN FROM WOUNDS IN RT LEG HERE LAST NIGHT ED Provider: Octavia Da Silva Discharge Problem: Chronic leg pain, Leg wound, right Patient Disposition: Home - Self-Care Condition: Good Discharge Instructions Interventions: ED Discharge Assessment Last Done: 04/28/24 12:33
[2024-04-28] MEDS: oxyCODONE HCL IR 5 MG TAB (IMMEDIATE RELEASE) PO STA ×2 (05:23→06:15)
[2024-04-28] MEDS: SODIUM CHLORIDE 0.9% 500 ML IV SCH (06:54)
[2024-04-28 07:33] LABS: Alanine Aminotransferase 21 U/L (7-52); Albumin Globulin Ratio 1.3 (0.9-2); Alkaline Phosphatase 200 U/L (34-104); Anion Gap 6 (3-11); Aspartate Aminotransferase 30 U/L (13-39); BUN Creatinine Ratio 14.5 (10-20); Bilirubin,Total 0.7 mg/dl (0.2-1.0); Blood Urea Nitrogen 11 mg/dl (6-23); Calcium 8.8 mg/dl (8.6-10.3); Carbon Dioxide 33 mmol/L (21-32); Chloride 101 mmol/L (98-107); Est GFR (African American) 93.4 ml/min; Est GFR (Non-African American) 80.6 ml/min; Globulin 2.4 gm/dl (2.5-4.0); Glucose 87 mg/dl (70-99(Fasting)); Potassium 3.8 mmol/L (3.5-5.1); Sodium 140 mmol/L (136-145); Total Protein 5.4 gm/dl (6.0-8.3)
[2024-04-28 07:58] LABS: Basophils # (auto) 0.04 K/uL (0.00-0.20); Basophils % (auto) 0.8 %; Eosinophils # (auto) 0.27 K/uL (0.00-0.50); Eosinophils % (auto) 5.5 %; Immature Granulocytes # (auto) 0.04 K/uL (0.01-0.20); Immature Granulocytes % (auto) 0.8 %; Lymphocytes # (auto) 1.43 K/uL (1.20-3.40); Lymphocytes % (auto) 29.4 %; Mean Corpuscular Hgb Conc 34.4 g/dL (32.0-36.0); Mean Corpuscular Volume 107.7 fL (80.0-100.0); Mean Platelet Volume 9.6 fL (9.4-12.4); Monocytes # (auto) 0.25 K/uL (0.11-0.59); Monocytes % (auto) 5.1 %; Neutrophils # (auto) 2.84 K/uL (1.40-6.50); Neutrophils % (auto) 58.4 %; Platelet Count 88 K/uL (130-400); Platelet Estimate Decreased (Normal); RDW Coefficient of Variation 13.9 % (11.5-14.5); RDW Standard Deviation 54.2 fL (36.4-46.3); Red Blood Count 2.97 M/uL (4.20-5.40); White Blood Count 4.87 K/ul (4.8-10.8)
--- NOTE | 2024-04-28 08:16 | History & Physical Report ---
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 Acute on Chronic RLE Pain, RLE Venous Ulcers: History as per HPI. No leukocytosis, procalcitonin negative. MRSA screen pending. Wound cx pending from visit at wound clinic on 04/27/24. Hold on ABX until wound cx results. PT/OT evals. Wound care nurse consult pending. Elevated BLE. Pain control regimen. Pain management consult pending. Diet-Controlled DM Type II: Continue to monitor BSG. Hgb A1c was 4.4% on 03/15/24. No need for SSI at this time. Chronic DVT & Superficial Thrombosis: Recently admitted 03/15/24- --> BLE venous Doppler with chronic DVT within bilateral common femoral veins. Also there was an acute thrombus within the left greater saphenous vein extending 4.1cm in length and closer to the junction with common femoral vein. Discussed case with hematology on 03/15/24 and patient was placed on Eliquis at that time. Patient to continue Eliquis indefinitely according to heme/onc visit with Dr. Nielson on 04/08/24. Had a RLE venous duplex done 04/27/24 that showed no DVT above the knee. Compared to previous study mentioned above, there was no evidence of superficial thrombus in the RT GSV. Chronic BLE Edema/Lymphedema: Continue home diuretics for now, monitor BP. Chronic Anemia, Thrombocytopenia: Hgb 11 on admission, baseline Hgb ~9-[address] review[address]t ct 88 on admission. Continue to closely monitor daily AM labs. Mitral Valve Prolapse, H/O Takotsubo Cardiomyopathy: On metoprolol succinate PIGS FEET CLEANER, will continue. Patient follows w/ [facility] - Dr. Bonilla. 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 Most recent echo done 11/07/23 --> concentric borderline increase in LV wall thickness, LVEF=65-69%, moderately enlarged LA, moderate posterior mitral leaflet prolapse, moderate 2-3+ mitral regurgitation. Refractory AML, Leukemia Cutis: Patient had induction chemotherapy in May 2016 with bone marrow biopsy showing residual disease and received reinduction chemotherapy and she again had evidence of residual disease post second induction chemotherapy and subsequently treated with hypomethylating therapy on which she accomplished complete remission with persistent thrombocytopenia which was considered to represent autoimmune manifestation versus treatment-related toxicity rather than active disease. And she underwent peripheral stem cell allogenic hemopoietic stem cell transplant. Post-transplant she developed sepsis with acute renal failure and later she also found to have a low level CMV viremia and was treated. Later patient developed skin lesions and biopsies was consistent with leukemia cutis, extramedullary relapse of AML. She was started on decitabine and venetoclax. She received radiation treatment to right upper and lower extremity for leukemia cutis. Due to pancytopenia, venetoclax was stopped. Currently she is receiving Dacogen single agent 4 days/month. She follows with [facility] - Dr. Nielson. Other Chronic Medical Conditions: Hypothyroidism, GERD, hypomagnesemia/hypokalemia, depression/RASTA --> Can continue home meds for these specific conditions. DVT Prophylaxis: On Eliquis PIG[employer]ET CLE[employer]ER - continue. Code Status: FULL CODE PCP: Joe Peng DO Disposition: Admit to Med/Surg Patient seen in collaboration with Dr. Kaur. Please see addendum. I spent a total of 60 minutes coordinating, documenting, and providing care for this patient excluding time spent in the performance of separately billed services. This included personally reviewing all current laboratories and imaging studies, medical reconciliation, outpatient chart review and discussion with specialists. This chart was completed in part utilizing Speech Voice Recognition Software. Grammatical errors, random word insertions, pronoun errors, and incomplete sentences are an occasional consequence of this system due to software limitations, ambient noise, and hardware issues. Any formal questions or concerns about the content, text, or information contained within the body of this dictation should be directly addressed to the provider for clarification. 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 History obtained from patient, at bedside and associated chart review. Most recent confinement was 03/15/24-03/19/24. She presented at that time with a RLE wound and RLE pain. Outpatient wound culture grew Pseudomonas, MRSA screen was negative. She was on ciprofloxacin. Case was discussed with ID on 03/16/24 --> likely non-infected ulcer. Antibiotic was stopped. Wound care was continued. Patient had 2 falls during that admission. All imaging following the falls was negative except for the following findings on bilateral hip XR: severe osteoarthritis of the hips, avascular necrosis of the femoral head with partial articular collapse of the right femoral head. Patient was to follow-up with orthopedics as an outpatient in 1-2 months or earlier if symptomatic. Patient was also complaining of blurry vision during that admission as well. Her mentation was intact and no focal neurological deficits were noted. She was advised to follow-up with ophthalmology as an outpatient. She was ultimately discharged to [facility] for further rehabilitation services. Patient coming in today with intractable RLE pain. reports that she has been dealing with RLE venous ulcers for the past 2 months. She was recently seen in the ED on 04/26/24 for the same complaint. Patient was given a dose of ciprofloxacin at that time due to history of a Pseudomonas wound infection and was instructed to complete a full course of it. 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 She was seen at the [facility] wound clinic yesterday and told to hold the ciprofloxacin until a wound culture is completed. Wound culture is still pending. Patient is currently taking oxycodone 5mg po Q6H PRN at home without much to any improvement in her pain. Reports that she was in excruciating pain last night even after taking a dose of the oxycodone. Denies any fevers, chills or body aches. No chest pain or SOB. Her has not noticed any drainage or foul-smelling odor coming from the wounds. Her wounds are currently undressed and dry. She has not noticed any increased redness around the wounds. She is still experiencing 7-8/10 pain following 0.5mg IV Dilaudid and 5mg oxycodone in the ED. She denies any increase in her chronic BLE edema. Allergies Allergy/AdvReac Type Severity Reaction Status Date / Time amoxicillin AdvReac Intermediate NAUSEA/VOMI Verified 04/28/24 09:53 TING Penicillins AdvReac Intermediate NAUSEA/VOMITING/"FEELS Verified 04/28/24 09:53 NERVOUS" Home Medications Medication Instructions Recorded Confirmed Type acetaminophen 500 mg tablet 500 mg PO Q6H PRN Pain 08/22/23 04/28/24 History (Tylenol Extra Strength) bupropion HCl 150 mg 24 hr tablet, 150 mg PO QAM 08/22/23 04/28/24 History extended release bupropion HCl 300 mg 24 hr tablet, 300 mg PO QAM 08/22/23 04/28/24 History extended release buspirone 10 mg tablet See Rx Instructions .Route .COMPLEX 08/22/23 04/28/24 History calcium carbonate 1,000 mg-vitamin 1 tab PO DAILY 08/22/23 04/28/24 History D3 20 mcg (800 unit) tablet cyanocobalamin (vitamin B-12) 1,000 mcg PO DAILY 08/22/23 04/28/24 History 1,000 mcg tablet (Vitamin B-12) gabapentin 300 mg capsule 600 mg PO BID 08/22/23 04/28/24 History levothyroxine 150 mcg tablet 150 mcg PO DAILYBB 08/22/23 04/28/24 History lorazepam 0.5 mg tablet 0.5 mg PO DAILY PRN Anxiety 08/22/23 04/28/24 History magnesium oxide 800 mg PO BID 08/22/23 04/28/24 History metoprolol succinate 25 mg 12.5 mg PO DAILY 08/22/23 04/28/24 History tablet,extended release 24 hr omeprazole 20 mg capsule,delayed 20 mg PO DAILY 08/22/23 04/28/24 History release ondansetron 8 mg disintegrating 8 mg PO Q8H PRN Nausea And Vomiting 08/22/23 04/28/24 History tablet potassium chloride 20 mEq 20 meq PO DAILY 08/22/23 04/28/24 History tablet,extended release prochlorperazine maleate 10 mg 10 mg PO Q8H PRN Nausea 08/22/23 04/28/24 History tablet (Compazine) ergocalciferol (vitamin D2) 1,250 50,000 unit PO WK 12/25/23 04/28/24 History mcg (50,000 unit) capsule fluoride (sodium) 1.1 % dental 1 applic dental HS 12/25/23 04/28/24 History paste (Sodium Fluoride 5000 Dry Mouth) furosemide 40 mg tablet (Lasix) 40 mg PO QAM 12/25/23 04/28/24 History oxycodone 5 mg tablet 5 mg PO Q6H PRN pain #10 tabs 12/25/23 04/28/24 Rx spironolactone 25 mg tablet 12.5 mg PO DAILY 03/14/24 04/28/24 History apixaban 5 mg tablet (Eliquis) 5 mg PO BID 04/16/24 04/28/24 History Past Med/Surg History Problem List Pain of right lower extremity Leg wound, right (Acute) Chronic leg pain (Acute) Acute pain of right lower extremity (Acute) Venous stasis ulcer of right lower extremity (Acute) Lower extremity edema Venous ulcer of right leg (Acute) Cellulitis (Acute) Pseudomonas infection (Acute) Lab test positive for detection of COVID-19 virus (Acute) Anemia (Acute) Leukemia cutis (Acute) Encounter for pre-operative examination Leukemia cutis (Chronic) Encounter for pre-operative examination Weight loss Diarrhea Unresponsiveness (Acute) Pancytopenia (Acute) Hypotension (Acute) AML (acute myeloblastic leukemia) (Acute) H/O colonoscopy (Chronic) "06/04/2014 diverticulosis, repeat 5 yrs" S/P anal fissurectomy (Chronic) Takotsubo cardiomyopathy (Chronic) Transaminitis Hypothyroidism (Chronic) Hyperbilirubinemia AML (acute myelogenous leukemia) (Chronic) Medical History Lymphedema Acute alteration in mental status S/P radiation therapy before bone marrow transplant 12-11-2016 History of diabetes mellitus HX STEROID INDUCED DIABETES, NOW RESOLVED Low blood pressure Sepsis due to Pseudomonas species with acute organ dysfunction and septic shock this happened 100 days after the transplant CMV (cytomegalovirus infection) HX ? PT NOT SURE Autoimmune hepatitis Nausea and vomiting after administration of anesthetic agent Hypothyroidism AML (acute myeloblastic leukemia) diagnosed - CURRENT CHEMOTHERAPY/PORT RIGHT CHEST TMJ disease HX SURGERY, RESOLVED PROBLEM Depression Anxiety Migraine HX Takotsubo cardiomyopathy reason for metoprolol--follows with Dr. 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 History of amputation of toe left big toe History of hemorrhoidectomy History of colonoscopy History of esophagogastroduodenoscopy (EGD) History of vascular access device right APORT History of mandibular surgery TMJ sx--plate in right side of jaw History of tooth extraction History of wisdom tooth extraction History of cardiac cath 2012 in [place]---no stents Family History Sister Family history of diabetes mellitus Mother , age 84 Head and neck cancer COPD (chronic obstructive pulmonary disease) Father , age 75 Esophageal cancer Sister Vertigo Hypertension Sister Hypothyroidism Brother Combined hyperlipidemia Brother Colorectal cancer Brother Gout Brother No problems noted. Grandmother (Maternal) Breast cancer Other No family history of adverse response to anesthesia Social History Smoking Status: Never smoker Second Hand Exposure: No; Do You Dip or Chew Tobacco: No; Hx Alcohol Use: Yes Alcohol type: wine and hard liquor Alcohol Intake Frequency: Monthly or Less Hx Substance Use: No Preferred Language: Sinhala Communication Ability: Effective Visual Impairment: Partially Limited Hearing Ability: Normal Watershed Coordinator Required: No Beliefs That Will Affect Care: None marital status: Current Living Situation: Spouse Current Living Situation Comment: lives with current occupational status: retired 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 Physical Exam Physical Exam: General: Chronically ill-appearing, vitals as above, NAD, sitting up in bed, pleasant, conversing. A+Ox3, euthymic affect. HEENT: Normocephalic, atraumatic. PERRL, conjunctivae normal, anicteric sclerae. External ear and nose normal, oropharynx normal. Respiratory: Normal respiratory effort, lungs clear to auscultation, no wheeze, rales, rhonchi. No accessory muscle use. Cardiovascular: Regular rate, rhythm, no murmur, normal peripheral pulses, no BLE edema. Vessels: No JVD. Abdomen/GI: Normal bowel sounds, soft, nontender, no hepatosplenomegaly. Extremities/Musculoskeletal: No cyanosis or clubbing, 1+ BLE edema, 2 superficial ulcerations noted on the distal anterior RLE. Neurologic: EOMI, no focal deficits, CN's II-XI not formally tested but appear grossly intact bilaterally. Skin: No rashes, normal color, warm/dry. No erythema around the wounds, no drainage noted from the wounds either. Results & Data Results & Data Vital Signs (Past 12 Hours) Vital Signs Temp Pulse Pulse Resp BP BP Pulse Ox 04/28/24 08:07 79 04/28/24 06:37 82 18 137/81 04/28/24 05:00 70 16 144/89 H 95 04/28/24 05:00 22 144/89 H 100 04/28/24 04:30 70 17 137/81 91 04/28/24 04:00 77 16 135/82 92 04/28/24 03:30 74 15 123/82 96 04/28/24 03:29 71 04/28/24 03:25 74 22 129/78 100 04/28/24 03:15 76 13 129/78 100 04/28/24 02:58 36.6 C 88 16 139/96 100 O2 Del Method 04/28/24 08:07 04/28/24 06:37 04/28/24 05:00 04/28/24 05:00 04/28/24 04:30 04/28/24 04:00 04/28/24 03:30 04/28/24 03:29 04/28/24 03:25 Room Air 04/28/24 03:15 04/28/24 02:58 Room Air Laboratory Results Short CBC 04/28/24 Range/Units 06:54 WBC 4.87 (4.8-10.8) K/ul Hgb 11.0 L (12.0-16.0) g/dl Hct 32.0 L (37.0-47.0) % Plt Count 88 L (130-400) K/uL BMP 04/28/24 06:54 Sodium 140 Potassium 3.8 Chloride 101 Carbon Dioxide 33 H BUN 11 Creatinine 0.76 Glucose 87 Calcium 8.8 Liver Function 04/28/24 Range/Units 06:54 Total Bilirubin 0.7 (0.2-1.0) mg/dl AST 30 (13-39) U/L ALT 21 (7-52) U/L Alkaline Phosphatase 200 H (34-104) U/L Albumin 3.0 L (3.4-5.0) gm/dl Medications Administered Sodium Chloride (Nss) 500 mls @ 80 mls/hr IV .[id number] VIRAJ Stop: 05/28/24 06:44 Last Admin: 04/28/24 06:54 Dose: 80 mls/hr Documented By: ORA Discontinued Medications Acetaminophen (Acetaminophen 325 Mg Tab) 650 mg PO NOW STA Stop: 04/28/24 03:52 Last Admin: 04/28/24 04:09 Dose: 650 mg Documented By: ORA Hydromorphone HCl (Hydromorphone Inj 0.5 Mg/0.5 Ml Syr) 0.5 mg IM NOW STA Stop: 04/28/24 03:58 Last Admin: 04/28/24 04:10 Dose: 0.5 mg Documented By: ORA Oxycodone HCl (Oxycodone Hcl Ir 5 Mg Tab (Immediate Release)) 2.5 mg PO NOW STA Stop: 04/28/24 05:08 Last Admin: 04/28/24 05:23 Dose: 2.5 mg Documented By: ORA Oxycodone HCl (Oxycodone Hcl Ir 5 Mg Tab (Immediate Release)) 2.5 mg PO NOW STA Stop: 04/28/24 06:11 Last Admin: 04/28/24 06:15 Dose: 2.5 mg Documented By: ORA Code Status & VTE Plan Code Status FULL CODE Supervising Physician Co-Signing Physician Notes Attending addendum The patient was seen and examined in medical floor She has chronic wound involving the right lower extremity and has been under care of wound care as an outpatient Was brought into the emergency room with increasing pain involving the right lower extremity Has possible worsening of the wound with cellulitis On examination Lying in bed without any apparent distress Remains hemodynamically stable and afebrile Local examination of the right lower extremity showed to deep ulceration on up of the lower clark about the size of a reilly with surrounding inflammation and another 1 on the medial aspect of the right lower leg which seems to be oval- shaped about 2 cm x 1 cm without any evidence of drainage and/or local cellulitis Her admission labs and imaging studies and medications reviewed Has chronic leg ulceration with history of leukemia cutis and AML Holding any antibiotic and pending culture and sensitivity results Agree with the assessment and plan and take the full responsibility of the care as above done by Joselyn Bedolla PA-C Total time spent in evaluation, examination and reviewing the results was [address] Gunnar Kaur
[2024-04-28] MEDS ORDERED: busPIRone 5 MG TAB PO SCH (12:46)
[2024-04-28] MEDS ORDERED: MoRPHine SULFATE 2 MG/ML CARP IM PRN (12:46)
[2024-04-28] MEDS ORDERED: ONDANSETRON INJ 2 MG/ML 2 ML VIAL IV PRN (12:46)
[2024-04-28] MEDS ORDERED: POLYETHYLENE (MIRALAX) 17 GM PACK PO PRN (12:46)
[2024-04-28] MEDS: Patient's HEIGHT &/or WEIGHT Needed SCH (13:00)
[2024-04-28] MEDS: oxyCODONE/ACETAMINOPHEN 5mg/325mg TAB PO PRN (14:13)
[2024-04-28] MEDS: busPIRone 5 MG TAB PO SCH ×2 (14:13→20:36)
[2024-04-28] MEDS: HYDROmorphone INJ 1 MG/ML SYRINGE IV PRN (16:54)
[2024-04-28] MEDS: ACETAMINOPHEN 325 MG TAB PO SCH (17:04)
[2024-04-28] MEDS: MAGNESIUM OXIDE 400 MG TAB PO SCH (20:35)
[2024-04-28] MEDS: GABAPENTIN 300 MG CAP PO SCH (20:35)
[2024-04-28] MEDS: APIXABAN 5 MG TABLET PO SCH (20:36)
[2024-04-29] MEDS: LEVOTHYROXINE SODIUM 150 MCG TABLET PO SCH (05:29)
[2024-04-29] MEDS: buPROPion XL 150 MG TABCR PO SCH (08:21)
[2024-04-29] MEDS: CALCIUM 600MG + VIT D 400 IU TAB PO SCH (08:21)
[2024-04-29] MEDS: buPROPion XL 300 MG TABCR PO SCH (08:21)
[2024-04-29] MEDS: FUROSEMIDE 40 MG TAB PO SCH (08:22)
[2024-04-29] MEDS: POTASSIUM CHLORIDE CRTAB 20 MEQ TABCR PO SCH (08:23)
[2024-04-29] MEDS: METOPROLOL SUCC 25MG EXT REL TAB PO SCH (08:23)
[2024-04-29] MEDS: PANTOprazole 40 MG TAB PO SCH (08:23)
[2024-04-29] MEDS: SPIRONOLACTONE 12.5 MG TAB PO SCH (08:23)
--- NOTE | 2024-04-29 08:41 | Pain Management Consultation ---
Date of Consultation April 29, 2024 Assessment & Plan (1) Pain of right lower extremity: (2) Venous stasis ulcer of right lower extremity: Plan 1. Her recent episodes of pain which led to admission appear to be associated with application of a dressing to the venous ulcerations on the right lower extremity. Would defer to wound clinic regarding further ongoing care of the wound. We have nothing interventional to offer the patient regarding her pain complaint associated with the wound and application of dressing. 2. Recommend continuing with Percocet 5/325 mg 1 tablet p.o. every 4 hours for as needed breakthrough pain and reserving IV hydromorphone for pain not well- controlled with Percocet. Consider upward adjustment of Percocet dosing pending response. 3. After discussion with wound care, will order CT of the right lower extremity rule out osteomyelitis or abscess 4. Wound care will consider skin biopsy moving forward 5. Continue gabapentin 600 mg twice daily--see no utility in further progressing this dose at this time Thank you for allowing us to participate in the care of Mrs. Soto History of Present Illness Reason for Consultation: Acute on chronic right lower extremity pain with history of venous stasis ulcer x 2 Requesting Physician: Joselyn Bedolla PA-C Attending Physician: Romero Kaur MD History of Present Illness Mrs. Soto is a 69-year-old white female who was admitted with intractable pain in the right lower leg at the site of her chronic venous stasis ulceration x 2. 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 Patient indicates that she has been having some ongoing difficulties with pain in the right lower extremity over the past 2 months but her recent more significant episodes of pain were associated with applications of dressings from wound care with the initial 1 containing Silvadene and the second 1 not containing Silvadene. Her pain escalated within a few hours of placement of the dressings. She has been utilizing Oxy IR 5 mg daily consistently over the past few months. Increased frequency of utilization of Oxy IR was ineffective at diminishing her pain which led to emergent evaluation and this admission. She describes the characteristic of the pain as burning and localized to the wound sites without radiation. Patient indicates that she rates her pain a 0/10 this morning upon awakening. Her pain can escalate to a 10/10. She is tolerating the medication without notable side effects. She has been on gabapentin 600 mg twice daily consistently for the past 2 months. She has not recently been experiencing any significant lower extremity edema, but was previously dealing with lymphedema. She denies any axial low back pain or lumbar radicular pattern to her pain complaints. She has had x-ray studies completed of the right lower extremity within the past 1 month. Her wound cultures have been negative and recent vascular studies failed to reveal evidence of arterial or venous abnormalities contributing to lower extremity pain complaints. She was previously evaluated by vascular without recommendation for intervention. Patient has no further constitutional complaints. Plan of care discussed with Dr. Sofi Yen. Pain Assessment Full Body Front + Back: 2 1. Right distal anterior pretibial region at site of 2 small venous ulcerations Pain scale - at its best (0-10): 0 Pain scale - at its worst (0-10): 10 Allergies Allergy/AdvReac Type Severity Reaction Status Date / Time amoxicillin AdvReac Intermediate NAUSEA/VOMI Verified 04/28/24 09:53 TING Penicillins AdvReac Intermediate NAUSEA/VOMITING/"FEELS Verified 04/28/24 09:53 NERVOUS" Home Medications Medication Instructions Recorded Confirmed Type acetaminophen 500 mg tablet 500 mg PO Q6H PRN Pain 08/22/23 04/28/24 History (Tylenol Extra Strength) bupropion HCl 150 mg 24 hr tablet, 150 mg PO QAM 08/22/23 04/28/24 History extended release bupropion HCl 300 mg 24 hr tablet, 300 mg PO QAM 08/22/23 04/28/24 History extended release buspirone 10 mg tablet See Rx Instructions .Route .COMPLEX 08/22/23 04/28/24 History calcium carbonate 1,000 mg-vitamin 1 tab PO DAILY 08/22/23 04/28/24 History D3 20 mcg (800 unit) tablet cyanocobalamin (vitamin B-12) 1,000 mcg PO DAILY 08/22/23 04/28/24 History 1,000 mcg tablet (Vitamin B-12) gabapentin 300 mg capsule 600 mg PO BID 08/22/23 04/28/24 History levothyroxine 150 mcg tablet 150 mcg PO DAILYBB 08/22/23 04/28/24 History lorazepam 0.5 mg tablet 0.5 mg PO DAILY PRN Anxiety 08/22/23 04/28/24 History magnesium oxide 800 mg PO BID 08/22/23 04/28/24 History metoprolol succinate 25 mg 12.5 mg PO DAILY 08/22/23 04/28/24 History tablet,extended release 24 hr omeprazole 20 mg capsule,delayed 20 mg PO DAILY 08/22/23 04/28/24 History release ondansetron 8 mg disintegrating 8 mg PO Q8H PRN Nausea And Vomiting 08/22/23 04/28/24 History tablet potassium chloride 20 mEq 20 meq PO DAILY 08/22/23 04/28/24 History tablet,extended release prochlorperazine maleate 10 mg 10 mg PO Q8H PRN Nausea 08/22/23 04/28/24 History tablet (Compazine) ergocalciferol (vitamin D2) 1,250 50,000 unit PO WK 12/25/23 04/28/24 History mcg (50,000 unit) capsule fluoride (sodium) 1.1 % dental 1 applic dental HS 12/25/23 04/28/24 History paste (Sodium Fluoride 5000 Dry Mouth) furosemide 40 mg tablet (Lasix) 40 mg PO QAM 12/25/23 04/28/24 History oxycodone 5 mg tablet 5 mg PO Q6H PRN pain #10 tabs 12/25/23 04/28/24 Rx spironolactone 25 mg tablet 12.5 mg PO DAILY 03/14/24 04/28/24 History apixaban 5 mg tablet (Eliquis) 5 mg PO BID 04/16/24 04/28/24 History Pain History Pain Intensity Pain scale - at its best (0-10): 0 Pain scale - at its worst (0-10): 10 Patient History Medical History Lymphedema Acute alteration in mental status S/P radiation therapy before bone marrow transplant 12-11-2016 History of diabetes mellitus HX STEROID INDUCED DIABETES, NOW RESOLVED Low blood pressure Sepsis due to Pseudomonas species with acute organ dysfunction and septic shock this happened 100 days after the transplant CMV (cytomegalovirus infection) HX ? PT NOT SURE Autoimmune hepatitis Nausea and vomiting after administration of anesthetic agent Hypothyroidism AML (acute myeloblastic leukemia) diagnosed - CURRENT CHEMOTHERAPY/PORT RIGHT CHEST TMJ disease HX SURGERY, RESOLVED PROBLEM Depression Anxiety Migraine HX Takotsubo cardiomyopathy reason for metoprolol--follows with Dr. 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 History of amputation of toe left big toe History of hemorrhoidectomy History of colonoscopy History of esophagogastroduodenoscopy (EGD) History of vascular access device right APORT History of mandibular surgery TMJ sx--plate in right side of jaw History of tooth extraction History of wisdom tooth extraction History of cardiac cath 2012 in [place]---no stents Family History Sister Family history of diabetes mellitus Mother , age 84 Head and neck cancer COPD (chronic obstructive pulmonary disease) Father , age 75 Esophageal cancer Sister Vertigo Hypertension Sister Hypothyroidism Brother Combined hyperlipidemia Brother Colorectal cancer Brother Gout Brother No problems noted. Grandmother (Maternal) Breast cancer Other No family history of adverse response to anesthesia Social History Smoking Status: Never smoker Second Hand Exposure: No; Do You Dip or Chew Tobacco: No; Hx Alcohol Use: Yes Alcohol type: wine and hard liquor Alcohol Intake Frequency: Monthly or Less Hx Substance Use: No Preferred Language: Moroccan Communication Ability: Effective Visual Impairment: Partially Limited Hearing Ability: Normal Precise Winder Required: No Beliefs That Will Affect Care: None marital status: Current Living Situation: Spouse Current Living Situation Comment: lives with current occupational status: retired 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 Speech and thought process appropriate. Mood and affect appropriate. Cognition intact. Head: Normocephalic and atraumatic. ENT: No evidence of nasal or oral mucosal lesions. Mucous membranes are moist. Eyes: Pupils equal round reactive to light. Neck: Supple without adenopathy and full range of motion. Head forward position with loss of cervical lordosis. Abdomen: Soft and nondistended. No organomegaly. Bowel sounds active. Back/spine: Nontender over the midline or to provocative testing of the facet/SI joints. Lower extremities: Strength testing was 5/5 with dorsiflexion, plantarflexion and hip flexion/extension bilaterally. Patient has some generalized erythema of the pretibial regions bilaterally right greater left-sided. Optifoam dressing is in place in the distal anterior pretibial location which was not removed for visual inspection. She is nontender to palpation over the pretibial region or directly over the wound site. She is nontender over the gastrocnemius to deep palpation. Sensation was intact distally to sharp and dull. Posterior tibial pulses were 2+ and equal bilaterally. There is no appreciable edema of the foot, ankle or pretibial region. Absent left great toe status post amputation. Neurologic: Cranial nerves grossly intact. Ambulatory function not witnessed. Results (Pain Clinic) Diagnostic Review Other Findings: Refer to EMR for results of arterial duplex and venous reflux ultrasound studies completed on 04/27/2024.
[2024-04-29 09:10] LABS: Hematocrit (blood only) 31.7 % (37.0-47.0); Hemoglobin 10.6 g/dl (12.0-16.0); Mean Corpuscular Hemoglobin 35.9 pg (25.0-34.0); Mean Corpuscular Hgb Conc 33.4 g/dL (32.0-36.0); Mean Corpuscular Volume 107.5 fL (80.0-100.0); Mean Platelet Volume 9.7 fL (9.4-12.4); Platelet Count 69 K/uL (130-400); RDW Standard Deviation 54.4 fL (36.4-46.3); Red Blood Count 2.95 M/uL (4.20-5.40); White Blood Count 3.62 K/ul (4.8-10.8)
[2024-04-29 10:27] LABS: BUN Creatinine Ratio 9.8 (10-20); Calcium 8.6 mg/dl (8.6-10.3); Creatinine Clr Calc Pharmacy 55.5 ml/min; Est GFR (African American) 85.2 ml/min; Est GFR (Non-African American) 73.5 ml/min; Magnesium 1.6 mg/dl (1.7-2.4); Phosphorus 2.8 mg/dl (2.5-4.9); Potassium 3.6 mmol/L (3.5-5.1)
[2024-04-29] MEDS: CYANOCOBALAMIN (B-12) 500 MCG TABLET PO SCH (10:39)
--- NOTE | 2024-04-29 10:55 | CT Scan Report ---
CT tib/fib RT wo con CLINICAL HISTORY: RLE pain at wound sites r/o abcess/osteo TECHNIQUE: Multidetector row helical CT of the right tibia was performed without intravenous contrast . Coronal and sagittal reformations were obtained. Automated dose lowering techniques and/or adjustme nt according to patient size were utilized for this examination. CT DOSE: 653.08 mGy.cm Comparison: Comparison is made to tibial radiograph 03/14/2024 FINDINGS: The osseous structures are without fracture or dislocation. The joint spaces are maintained. Foci of sclerosis are seen in the patella and distal femur. No joint effusion is seen. Soft tissue ulcers ar e seen in the anterior aspect of the distal thigh. No drainable fluid collection. IMPRESSION: Soft tissue ulcer is seen without evidence of abscess or osteomyelitis. ACT 112: Negative or not required by law. Electronically signed by: Vijay Yuan M.D. 04/29/2024 10:53 AM
--- NOTE | 2024-04-29 14:45 | Hospitalist Progress Note ---
Date of Service April 29, 2024 Assessment & Plan (1) Pain of right lower extremity: (2) Venous stasis ulcer of right lower extremity: Plan Codi Soto is a 69y/o F with PMHx of diet-controlled diabetes mellitus, hypothyroidism, hypokalemia, hypomagnesemia, Takotsubo cardiomyopathy, mitral valve prolapse, autoimmune hepatitis, GERD without esophagitis, chronic diarrhea alternating with constipation, amputation of great left toe, leukemia cutis s/p radiation therapy, chronic DVT [on Eliquis], thrombocytopenia, coagulopathy, refractory acute myelogenous leukemia [currently on Dacogen], chemotherapy- induced neutropenia, immune thrombocytopenic purpura, anemia, sbqbk-xgrode-jyot disease, allogenic bone marrow transplant, depression, RASTA, central line- associated bloodstream infection, acute liver failure, Staphylococcus aureus bacteremia with sepsis, VRE bacteremia and other problems listed below who presented the ED for evaluation of worsening right lower extremity pain. Acute on Chronic RLE Pain, RLE Venous Ulcers: History as per HPI. No leukocytosis, procalcitonin negative. MRSA screen pending. Wound cx pending from visit at wound clinic on 04/27/24. Hold on ABX until wound cx results. PT/OT evals. Wound care nurse consult pending. Elevated BLE. Pain control regimen. Pain management consult pending. Appreciate pain therapy evaluation and recommendation CT scan of the leg did not show any evidence of abscess and/or osteomyelitis Her pain is controlled with current regimen Likely discharge tomorrow Leukemia cutis Has history of leukemia cutis She will have regular follow-up with the wound clinic and with the oncologist If the wound fails to improve over the next few weeks most likely she will need a biopsy to rule out leukemia cutis Diet-Controlled DM Type II: Continue to monitor BSG. Hgb A1c was 4.4% on 03/15/24. No need for SSI at this time. Chronic DVT & Superficial Thrombosis: Recently admitted 03/15/24- --> BLE venous Doppler with chronic DVT within bilateral common femoral veins. Also there was an acute thrombus within the left greater saphenous vein extending 4.1cm in length and closer to the junction with common femoral vein. Discussed case with hematology on 03/15/24 and patient was placed on Eliquis at that time. Patient to continue Eliquis indefinitely according to heme/onc visit with Dr. Nielson on 04/08/24. Had a RLE venous duplex done 04/27/24 that showed no DVT above the knee. Compared to previous study mentioned above, there was no evidence of superficial thrombus in the RT GSV. Chronic BLE Edema/Lymphedema: Continue home diuretics for now, monitor BP. Chronic Anemia, Thrombocytopenia: Hgb 11 on admission, baseline Hgb ~9-[address] per [address] review[address] Plt ct 88 on admission. Continue to closely monitor daily AM labs. Mitral Valve Prolapse, H/O Takotsubo Cardiomyopathy: On metoprolol succinate [facility], will continue. Patient follows w/ [facility] - Dr. Bonilla. 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 Most recent echo done 11/07/23 --> concentric borderline increase in LV wall thickness, LVEF=65-69%, moderately enlarged LA, moderate posterior mitral leaflet prolapse, moderate 2-3+ mitral regurgitation. Refractory AML, Leukemia Cutis: Patient had induction chemotherapy in May 2016 with bone marrow biopsy showing residual disease and received reinduction chemotherapy and she again had evidence of residual disease post second induction chemotherapy and subsequently treated with hypomethylating therapy on which she accomplished complete remission with persistent thrombocytopenia which was considered to represent autoimmune manifestation versus treatment-related toxicity rather than active disease. And she underwent peripheral stem cell allogenic hemopoietic stem cell transplant. Post-transplant she developed sepsis with acute renal failure and later she also found to have a low level CMV viremia and was treated. Later patient developed skin lesions and biopsies was consistent with leukemia cutis, extramedullary relapse of AML. She was started on decitabine and venetoclax. She received radiation treatment to right upper and lower extremity for leukemia cutis. Due to pancytopenia, venetoclax was stopped. Currently she is receiving Dacogen single agent 4 days/month. She follows with [facility] - Dr. Nielson. Other Chronic Medical Conditions: Hypothyroidism, GERD, hypomagnesemia/hypokalemia, depression/RASTA --> Can continue home meds for these specific conditions. DVT Prophylaxis: On Eliquis [employer] - continue. Code Status: FULL CODE PCP: Joe Peng DO Disposition: Admit to Med/Surg Discussed with the in detail Admission and Anticipated Discharge Date Admission Date: April 28, 2024 Subjective 04/29/2024 The patient was seen and examined in medical floor Her pain in the right leg has improved a lot with current medications Has had evaluation by the pain therapist CT scan of the leg did not show any abscess or any osteomyelitis Review of Systems Review of Systems: All systems reviewed and are unremarkable except as noted below Physical Exam Physical Exam: Lying in bed without any acute distress Constitutional: well developed and well nourished; not ill appearing Eyes: PERRL, conjunctivae normal, anicteric sclerae ENMT: external ear and nose normal, oropharynx normal Neck: trachea midline, no thyromegaly Respiratory: no respiratory distress Auscultation: lungs clear to auscultation bilaterally Cardiovascular: Rate/Rhythm: regular rate and regular rhythm; not tachycardic Heart Sounds: normal S1 and normal S2; no murmur Gastrointestinal (Abdomen): Inspection/Auscultation: normal bowel sounds; abdomen not distended Percussion/Palpation: abdomen soft; abdomen nontender Musculoskeletal: No acute arthritis involving any of the joint Skin: Please see the wound in the picture Neurologic: normal touch/pain/proprioception and moves all extremities; no focal motor deficits Psychiatric: A+Ox3, euthymic affect Results & Data Results & Data Vital Signs (Past 12 Hours) Vital Signs Temp Pulse Resp BP Pulse Ox O2 Del Method 04/29/24 08:09 36.6 C 70 16 116/76 99 Room Air Laboratory Results Short CBC 04/29/24 Range/Units 08:30 WBC 3.62 L (4.8-10.8) K/ul Hgb 10.6 L (12.0-16.0) g/dl Hct 31.7 L (37.0-47.0) % Plt Count 69 L (130-400) K/uL BMP 04/29/24 08:30 Sodium 142 Potassium 3.6 Chloride 104 Carbon Dioxide 30 BUN 8 Creatinine 0.82 Glucose 100 H Calcium 8.6 Medications Administered Current Inpatient Medications Apixaban (Apixaban 5 Mg Tablet) 5 mg PO BID VIRAJ Stop: 05/28/24 20:59 Last Admin: 04/29/24 08:21 Dose: 5 mg Bupropion HCl (Bupropion Xl 300 Mg Tabcr) 300 mg PO QAM VIRAJ Stop: 05/29/24 08:59 Last Admin: 04/29/24 08:21 Dose: 300 mg Bupropion HCl (Bupropion Xl 150 Mg Tabcr) 150 mg PO QAM COUNT INCLUDES THE [facility] Stop: 05/29/24 08:59 Last Admin: 04/29/24 08:21 Dose: 150 mg Buspirone HCl (Buspirone 5 Mg Tab) 10 mg PO DAILY@1400 VIRAJ Stop: 05/28/24 13:59 Last Admin: 04/29/24 13:51 Dose: 10 mg Buspirone HCl (Buspirone 5 Mg Tab) 20 mg PO AMHS COUNT INCLUDES THE [facility] Stop: 05/28/24 20:59 Last Admin: 04/29/24 08:21 Dose: 20 mg Calcium/Vitamin D (Calcium 600mg + Vit D 400 Iu Tab) 1 tab PO DAILY VIRAJ Stop: 05/29/24 08:59 Last Admin: 04/29/24 08:21 Dose: 1 tab Cyanocobalamin (Cyanocobalamin (B-12) 500 Mcg Tablet) 1,000 mcg PO DAILY VIRAJ Stop: 05/29/24 08:59 Last Admin: 04/29/24 10:39 Dose: 1,000 mcg Ergocalciferol (Ergocalciferol 1250 Mcg (50,000 Units) Cap) 1,250 mcg PO Mo@0900 COUNT INCLUDES THE [facility] Stop: 06/03/24 08:59 Furosemide (Furosemide 40 Mg Tab) 40 mg PO QAM COUNT INCLUDES THE [facility] Stop: 05/29/24 08:59 Last Admin: 04/29/24 08:22 Dose: 40 mg Gabapentin (Gabapentin 300 Mg Cap) 600 mg PO BID VIRAJ Stop: 05/28/24 20:59 Last Admin: 04/29/24 08:22 Dose: 600 mg Hydromorphone HCl (Hydromorphone Inj 1 Mg/Ml Syringe) 1 mg IV Q6H PRN PRN Reason: Severe Pain (Scale 7, 8, 9,10) Stop: 05/12/24 12:45 Last Admin: 04/28/24 16:54 Dose: 1 mg Levothyroxine Sodium (Levothyroxine Sodium 150 Mcg Tablet) 150 mcg PO DAILYBB COUNT INCLUDES THE [facility] Stop: 05/29/24 06:29 Last Admin: 04/29/24 05:29 Dose: 150 mcg Lorazepam (Lorazepam 0.5 Mg Tab) 0.5 mg PO DAILY PRN PRN Reason: Anxiety Stop: 05/28/24 12:45 Magnesium Oxide (Magnesium Oxide 400 Mg Tab) 800 mg PO BID VIRAJ Stop: 05/28/24 20:59 Last Admin: 04/29/24 08:22 Dose: 800 mg Metoprolol Succinate (Metoprolol Succ 25mg Ext Rel Tab) 12.5 mg PO DAILY VIRAJ Stop: 05/29/24 08:59 Last Admin: 04/29/24 08:23 Dose: 12.5 mg Morphine Sulfate (Morphine Sulfate 2 Mg/Ml Carp) 1 mg IM Q6H PRN PRN Reason: Breakthrough Pain Stop: 05/12/24 12:45 Oxycodone/Acetaminophen (Oxycodone/Acetaminophen 5mg/325mg Tab) 1 tab PO Q4H PRN PRN Reason: Moderate Pain (Scale 4, 5, 6) Stop: 05/12/24 12:45 Last Admin: 04/29/24 13:26 Dose: 1 tab Pantoprazole Sodium (Pantoprazole 40 Mg Tab) 40 mg PO DAILY VIRAJ Stop: 05/29/24 08:59 Last Admin: 04/29/24 08:23 Dose: 40 mg Potassium Chloride (Potassium Chloride Crtab 20 Meq Tabcr) 20 meq PO DAILY VIRAJ Stop: 05/29/24 08:59 Last Admin: 04/29/24 08:23 Dose: 20 meq Spironolactone (Spironolactone 12.5 Mg Tab) 12.5 mg PO DAILY VIRAJ Stop: 05/29/24 08:59 Last Admin: 04/29/24 08:23 Dose: 12.5 mg
[2024-04-29 21:39] VITALS: RESP 16; O2SAT 99
[2024-04-30] MEDS: ACETAMINOPHEN 325 MG TAB PO PRN (00:44)
[2024-04-30] MEDS: LORazepam 0.5 MG TAB PO PRN (01:55)
[2024-04-30 07:16] VITALS: BP 103/68; PULSE 71; TEMP 97.5
--- NOTE | 2024-04-30 11:46 | Hospitalist Progress Note ---
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 Acute on Chronic RLE Pain, RLE Venous Ulcers: History as per HPI. No leukocytosis, procalcitonin negative. MRSA screen pending. Wound cx pending from visit at wound clinic on 04/27/24-Scanty normal skin yasir doubt any infection Hold on ABX until wound cx results. PT/OT evals.-Subsequently antibiotic was not given Elevated BLE. Pain control regimen. Pain management consult pending. Appreciate pain therapy evaluation and recommendation CT scan of the leg did not show any evidence of abscess and/or osteomyelitis Her pain is controlled with current regimen Likely discharge tomorrow Wound culture was negative for any acute infection and antibiotics are not prescribed Appreciate wound care input and recommendation Remains medically stable without any significant symptoms Leg pain is controlled and the leg ulcer seems to be improving gradually She has the appointment with outpatient wound clinic and was advised to maintain that She will be discharged home this afternoon Leukemia cutis Has history of leukemia cutis She will have regular follow-up with the wound clinic and with the oncologist If the wound fails to improve over the next few weeks most likely she will need a biopsy to rule out leukemia cutis Diet-Controlled DM Type II: Continue to monitor BSG. Hgb A1c was 4.4% on 03/15/24. No need for SSI at this time. Chronic DVT & Superficial Thrombosis: Recently admitted 03/15/24- --> BLE venous Doppler with chronic DVT within bilateral common femoral veins. Also there was an acute thrombus within the left greater saphenous vein extending 4.1cm in length and closer to the junction with common femoral vein. Discussed case with hematology on 03/15/24 and patient was placed on Eliquis at that time. Patient to continue Eliquis indefinitely according to heme/onc visit with Dr. Nielson on 04/08/24. Had a RLE venous duplex done 04/27/24 that showed no DVT above the knee. Compared to previous study mentioned above, there was no evidence of superficial thrombus in the RT GSV. Chronic BLE Edema/Lymphedema: Continue home diuretics for now, monitor BP. Chronic Anemia, Thrombocytopenia: Hgb 11 on admission, baseline Hgb ~9-[address] per chart review[address] Plt ct 88 on admission. Continue to closely monitor daily AM labs. Platelet count remains 69 Will need appointment with heavy equipment sales associate oncologist as an outpatient sooner than later Mitral Valve Prolapse, H/O Takotsubo Cardiomyopathy: On metoprolol succinate [employer], will continue. Patient follows w/ [facility] - Dr. Bonilla. 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 Most recent echo done 11/07/23 --> concentric borderline increase in LV wall thickness, LVEF=65-69%, moderately enlarged LA, moderate posterior mitral leaflet prolapse, moderate 2-3+ mitral regurgitation. Refractory AML, Leukemia Cutis: Patient had induction chemotherapy in May 2016 with bone marrow biopsy showing residual disease and received reinduction chemotherapy and she again had evidence of residual disease post second induction chemotherapy and subsequently treated with hypomethylating therapy on which she accomplished complete remission with persistent thrombocytopenia which was considered to represent autoimmune manifestation versus treatment-related toxicity rather than active disease. And she underwent peripheral stem cell allogenic hemopoietic stem cell transplant. Post-transplant she developed sepsis with acute renal failure and later she also found to have a low level CMV viremia and was treated. Later patient developed skin lesions and biopsies was consistent with leukemia cutis, extramedullary relapse of AML. She was started on decitabine and venetoclax. She received radiation treatment to right upper and lower extremity for leukemia cutis. Due to pancytopenia, venetoclax was stopped. Currently she is receiving Dacogen single agent 4 days/month. She follows with [facility] - Dr. Nielson. Other Chronic Medical Conditions: Hypothyroidism, GERD, hypomagnesemia/hypokalemia, depression/RASTA --> Can continue home meds for these specific conditions. DVT Prophylaxis: On Eliquis [employer] - continue. Code Status: FULL CODE PCP: Joe Peng DO Disposition: Admit to Med/Surg Discussed with the in detail She will be discharged home this afternoon Admission and Anticipated Discharge Date Admission Date: April 28, 2024 Subjective 04/29/2024 The patient was seen and examined in medical floor Her pain in the right leg has improved a lot with current medications Has had evaluation by the pain therapist CT scan of the leg did not show any abscess or any osteomyelitis 04/30/2024 The patient was seen and examined in medical floor Her pain in the leg is controlled with current medications Right leg ulcer has been healing well She denies any other significant symptoms and will be discharged home this afternoon Review of Systems Review of Systems: All systems reviewed and are unremarkable except as noted below Physical Exam Physical Exam: Lying in bed without any acute distress Constitutional: well developed and well nourished; not ill appearing Eyes: PERRL, conjunctivae normal, anicteric sclerae ENMT: external ear and nose normal, oropharynx normal Neck: trachea midline, no thyromegaly Respiratory: no respiratory distress Auscultation: lungs clear to auscultation bilaterally Cardiovascular: Rate/Rhythm: regular rate and regular rhythm; not tachycardic Heart Sounds: normal S1 and normal S2; no murmur Gastrointestinal (Abdomen): Inspection/Auscultation: normal bowel sounds; abdomen not distended Percussion/Palpation: abdomen soft; abdomen nontender Musculoskeletal: Localized pain in the right leg but no acute arthritis involving any of the joint Neurologic: normal touch/pain/proprioception and moves all extremities; no focal motor deficits Psychiatric: A+Ox3, euthymic affect Results & Data Results & Data Vital Signs (Past 12 Hours) Vital Signs Temp Pulse Resp BP Pulse Ox O2 Del Method 04/30/24 07:14 36.4 C L 71 16 103/68 99 Room Air Medications Administered Current Inpatient Medications Acetaminophen (Acetaminophen 325 Mg Tab) 650 mg PO QID PRN PRN Reason: pain/fever Stop: 05/30/24 00:38 Last Admin: 04/30/24 00:44 Dose: 650 mg Apixaban (Apixaban 5 Mg Tablet) 5 mg PO BID [facility] Stop: 05/28/24 20:59 Last Admin: 04/30/24 09:18 Dose: 5 mg Bupropion HCl (Bupropion Xl 300 Mg Tabcr) 300 mg PO QAM VIR[facility] Stop: 05/29/24 08:59 Last Admin: 04/30/24 09:18 Dose: 300 mg Bupropion HCl (Bupropion Xl 150 Mg Tabcr) 150 mg PO QAM VIR[facility] Stop: 05/29/24 08:59 Last Admin: 04/30/24 09:18 Dose: 150 mg Buspirone HCl (Buspirone 5 Mg Tab) 10 mg PO DAILY@1400 [facility] Stop: 05/28/24 13:59 Last Admin: 04/29/24 13:51 Dose: 10 mg Buspirone HCl (Buspirone 5 Mg Tab) 20 mg PO AMHS VIRAJ Stop: 05/28/24 20:59 Last Admin: 04/30/24 09:21 Dose: 20 mg Calcium/Vitamin D (Calcium 600mg + Vit D 400 Iu Tab) 1 tab PO DAILY [facility]IR[facility] Stop: 05/29/24 08:59 Last Admin: 04/30/24 09:19 Dose: 1 tab Cyanocobalamin (Cyanocobalamin (B-12) 500 Mcg Tablet) 1,000 mcg PO DAILY [facility] Stop: 05/29/24 08:59 Last Admin: 04/30/24 09:16 Dose: 1,000 mcg Ergocalciferol (Ergocalciferol 1250 Mcg (50,000 Units) Cap) 1,250 mcg PO Mo@0900 [facility] Stop: 06/03/24 08:59 Furosemide (Furosemide 40 Mg Tab) 40 mg PO QAM VIR[facility] Stop: 05/29/24 08:59 Last Admin: 04/30/24 09:17 Dose: 40 mg Gabapentin (Gabapentin 300 Mg Cap) 600 mg PO BID [facility] Stop: 05/28/24 20:59 Last Admin: 04/30/24 09:20 Dose: 600 mg Hydromorphone HCl (Hydromorphone Inj 1 Mg/Ml Syringe) 1 mg IV Q6H PRN PRN Reason: Severe Pain (Scale 7, 8, 9,10) Stop: 05/12/24 12:45 Last Admin: 04/28/24 16:54 Dose: 1 mg Levothyroxine Sodium (Levothyroxine Sodium 150 Mcg Tablet) 150 mcg PO DAILYBB [facility] Stop: 05/29/24 06:29 Last Admin: 04/30/24 06:27 Dose: 150 mcg Lorazepam (Lorazepam 0.5 Mg Tab) 0.5 mg PO DAILY PRN PRN Reason: Anxiety Stop: 05/28/24 12:45 Last Admin: 04/30/24 01:55 Dose: 0.5 mg Magnesium Oxide (Magnesium Oxide 400 Mg Tab) 800 mg PO BID [facility] Stop: 05/28/24 20:59 Last Admin: 04/30/24 09:19 Dose: 800 mg Metoprolol Succinate (Metoprolol Succ 25mg Ext Rel Tab) 12.5 mg PO DAILY [facility]IR[facility] Stop: 05/29/24 08:59 Last Admin: 04/30/24 09:19 Dose: 12.5 mg Morphine Sulfate (Morphine Sulfate 2 Mg/Ml Carp) 1 mg IM Q6H PRN PRN Reason: Breakthrough Pain Stop: 05/12/24 12:45 Oxycodone/Acetaminophen (Oxycodone/Acetaminophen 5mg/325mg Tab) 1 tab PO Q4H PRN PRN Reason: Moderate Pain (Scale 4, 5, 6) Stop: 05/12/24 12:45 Last Admin: 04/30/24 09:25 Dose: 1 tab Pantoprazole Sodium (Pantoprazole 40 Mg Tab) 40 mg PO DAILY VIR[facility] Stop: 05/29/24 08:59 Last Admin: 04/30/24 09:19 Dose: 40 mg Potassium Chloride (Potassium Chloride Crtab 20 Meq Tabcr) 20 meq PO DAILY [facility]IR[facility] Stop: 05/29/24 08:59 Last Admin: 04/30/24 09:25 Dose: 20 meq Spironolactone (Spironolactone 12.5 Mg Tab) 12.5 mg PO DAILY VIR[facility] Stop: 05/29/24 08:59 Last Admin: 04/30/24 09:18 Dose: 12.5 mg
--- NOTE | 2024-05-01 07:19 | Discharge Summary ---
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 History obtained from patient, at bedside and associated chart review. Most recent confinement was 03/15/24-03/19/24. She presented at that time with a RLE wound and RLE pain. Outpatient wound culture grew Pseudomonas, MRSA screen was negative. She was on ciprofloxacin. Case was discussed with ID on 03/16/24 --> likely non-infected ulcer. Antibiotic was stopped. Wound care was continued. Patient had 2 falls during that admission. All imaging following the falls was negative except for the following findings on bilateral hip XR: severe osteoarthritis of the hips, avascular necrosis of the femoral head with partial articular collapse of the right femoral head. Patient was to follow-up with orthopedics as an outpatient in 1-2 months or earlier if symptomatic. Patient was also complaining of blurry vision during that admission as well. Her mentation was intact and no focal neurological deficits were noted. She was advised to follow-up with ophthalmology as an outpatient. She was ultimately discharged to [facility] for further rehabilitation services. Patient coming in today with intractable RLE pain. reports that she has been dealing with RLE venous ulcers for the past 2 months. She was recently seen in the ED on 04/26/24 for the same complaint. Patient was given a dose of ciprofloxacin at that time due to history of a Pseudomonas wound infection and was instructed to complete a full course of it. However - patient did not orange picker the prescription for ciprofloxacin from her pharmacy. She was seen at the [facility] wound clinic yesterday and told to hold the ciprofloxacin until a wound culture is completed. Wound culture is still pending. Patient is currently taking oxycodone 5mg po Q6H PRN at home without much to any improvement in her pain. Reports that she was in excruciating pain last night even after taking a dose of the oxycodone. Denies any fevers, chills or body aches. No chest pain or SOB. Her has not noticed any drainage or foul-smelling odor coming from the wounds. Her wounds are currently undressed and dry. She has not noticed any increased redness around the wounds. She is still experiencing 7-8/10 pain following 0.5mg IV Dilaudid and 5mg oxycodone in the ED. She denies any increase in her chronic BLE edema. Admission Exam Per Admitting Provider Physical Exam: General: Chronically ill-appearing, vitals as above, NAD, sitting up in bed, pleasant, conversing. A+Ox3, euthymic affect. HEENT: Normocephalic, atraumatic. PERRL, conjunctivae normal, anicteric sclerae. External ear and nose normal, oropharynx normal. Respiratory: Normal respiratory effort, lungs clear to auscultation, no wheeze, rales, rhonchi. No accessory muscle use. Cardiovascular: Regular rate, rhythm, no murmur, normal peripheral pulses, no BLE edema. Vessels: No JVD. Abdomen/GI: Normal bowel sounds, soft, nontender, no hepatosplenomegaly. Extremities/Musculoskeletal: No cyanosis or clubbing, 1+ BLE edema, 2 superficial ulcerations noted on the distal anterior RLE. Neurologic: EOMI, no focal deficits, CN's II-XI not formally tested but appear grossly intact bilaterally. Skin: No rashes, normal color, warm/dry. No erythema around the wounds, no drainage noted from the wounds either. Principal Diagnosis Pain right lower extremity, venous stasis ulcer of right lower extremity Discharge Exam Lying in bed without any acute distress Constitutional well developed and well nourished; not ill appearing Eyes PERRL, conjunctivae normal, anicteric sclerae ENMT external ear and nose normal, oropharynx normal Neck trachea midline, no thyromegaly Respiratory no respiratory distress Auscultation: lungs clear to auscultation bilaterally Cardiovascular Rate/Rhythm: regular rate and regular rhythm; not tachycardic Heart Sounds: normal S1 and normal S2; no murmur Gastrointestinal (Abdomen) Inspection/Auscultation: normal bowel sounds; abdomen not distended Percussion/Palpation: abdomen soft; abdomen nontender Neurologic normal touch/pain/proprioception and moves all extremities; no focal motor deficits Psychiatric A+Ox3, euthymic affect Discharge Data Allergies Allergy/AdvReac Type Severity Reaction Status Date / Time amoxicillin AdvReac Intermediate NAUSEA/VOMI Verified 04/28/24 09:53 TING Penicillins AdvReac Intermediate NAUSEA/VOMITING/"FEELS Verified 04/28/24 09:53 NERVOUS" Consultations 04/28/24 06:50 ED Decision to Admit Stat 04/28/24 09:54 Consult Pain Management Routine Ordered Studies 04/29/24 08:41 CT leg [CT tib/fib RT wo con] Routine Hospital Course (1) Pain of right lower extremity: (2) Venous stasis ulcer of right lower extremity: Denis Soto is a 69y/o F with PMHx of diet-controlled diabetes mellitus, hypot hyroidism, hypokalemia, hypomagnesemia, Takotsubo cardiomyopathy, mitral valve prolapse, autoimmune hepatitis, GERD without esophagitis, chronic diarrhea alternating with constipation, amputation of great left toe, leukemia cutis s/p radiation therapy, chronic DVT [on Eliquis], thrombocytopenia, coagulopathy, refractory acute myelogenous leukemia [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 Acute on Chronic RLE Pain, RLE Venous Ulcers: History as per HPI. No leukocytosis, procalcitonin negative. MRSA screen pending. Wound cx pending from visit at wound clinic on 04/27/24-Scanty normal skin yasir doubt any infection Hold on ABX until wound cx results. PT/OT evals.-Subsequently antibiotic was not given Elevated BLE. Pain control regimen. Pain management consult pending. Appreciate pain therapy evaluation and recommendation CT scan of the leg did not show any evidence of abscess and/or osteomyelitis Her pain is controlled with current regimen Likely discharge tomorrow Wound culture was negative for any acute infection and antibiotics are not prescribed Appreciate wound care input and recommendation Remains medically stable without any significant symptoms Leg pain is controlled and the leg ulcer seems to be improving gradually She has the appointment with outpatient wound clinic and was advised to maintain that She will be discharged home this afternoon Leukemia cutis Has history of leukemia cutis She will have regular follow-up with the wound clinic and with the oncologist If the wound fails to improve over the next few weeks most likely she will need a biopsy to rule out leukemia cutis Diet-Controlled DM Type II: Continue to monitor BSG. Hgb A1c was 4.4% on 03/15/24. No need for SSI at this time. Chronic DVT & Superficial Thrombosis: Recently admitted 03/15/24- --> BLE venous Doppler with chronic DVT within bilateral common femoral veins. Also there was an acute thrombus within the left greater saphenous vein extending 4.1cm in length and closer to the junction with common femoral vein. Discussed case with hematology on 03/15/24 and patient was placed on Eliquis at that time. Patient to continue Eliquis indefinitely according to heme/onc visit with Dr. Nielson on 04/08/24. Had a RLE venous duplex done 04/27/24 that showed no DVT above the knee. Compared to previous study mentioned above, there was no evidence of superficial thrombus in the RT GSV. Chronic BLE Edema/Lymphedema: Continue home diuretics for now, monitor BP. Chronic Anemia, Thrombocytopenia: Hgb 11 on admission, baseline Hgb ~9-[address] review[address] Plt ct 88 on admission. Continue to closely monitor daily AM labs. 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 [facility] Dr. Bonilla. 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 Most recent echo done 11/07/23 --> concentric borderline increase in LV wall thickness, LVEF=65-69%, moderately enlarged LA, moderate posterior mitral leaflet prolapse, moderate 2-3+ mitral regurgitation. Refractory AML, Leukemia Cutis: Patient had induction chemotherapy in May 2016 with bone marrow biopsy showing residual disease and received reinduction chemotherapy and she again had evidence of residual disease post second induction chemotherapy and subsequently treated with hypomethylating therapy on which she accomplished complete remission with persistent thrombocytopenia which was considered to represent autoimmune manifestation versus treatment-related toxicity rather than active disease. And she underwent peripheral stem cell allogenic hemopoietic stem cell transplant. Post-transplant she developed sepsis with acute renal failure and later she also found to have a low level CMV viremia and was treated. Later patient developed skin lesions and biopsies was consistent with leukemia cutis, extramedullary relapse of AML. She was started on decitabine and venetoclax. She received radiation treatment to right upper and lower extremity for leukemia cutis. Due to pancytopenia, venetoclax was stopped. Currently she is receiving Dacogen single agent 4 days/month. She follows with [facility]/Onc - Dr. Nielson. Other Chronic Medical Conditions: Hypothyroidism, GERD, hypomagnesemia/hypokalemia, depression/RASTA --> Can continue home meds for these specific conditions. 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 Code Status: FULL CODE PCP: Joe Peng DO Disposition: Admit to Med/Surg Discussed with the in detail She will be discharged home this afternoon Total Time Total Time Spent Total Time Spent (In Minutes): 40 minutes Discharge Plan Discharge Items Patient Disposition: Home - Self-Care Reason For Visit: INTRACTABLE RLE PAIN, RLE ULCERS Discharge Diagnosis: Pain right lower extremity, venous stasis ulcer of right lower extremity Condition on Discharge: Good Activity: Resume your previous activity Non-emergency contact: Primary Care Provider Call non-emergency contact if: you have any medication questions and your symptoms worsen Follow-up/Referrals: Joe Peng DO [Primary Care Provider] - (Date & Time 05/04/2024 11:00 AM Provider Joe Peng DO Department [facility] ) Diet: Heart Healthy Addtl Attending Provider Instructions: Please take precaution to avoid falls Take care of the leg wound as advised by the wound care nurse Keep follow-up appointment with the wound care as an outpatient You need to make an appointment with your oncologist/single fold machine operator sooner Try to use your narcotic pain medications with caution as it can cause drowsiness, confusion, constipation and addiction Please keep appointment with your healthcare provider Pending Studies at Discharge: No Stand-Alone Forms: My [facility], Smoking Cessation Medications and DC Order Prescriptions: Continued Eliquis 5 mg tablet 5 mg PO BID Rx Instructions: 10 mg bid for 7 days, then 5 mg bid there after. cyanocobalamin (vitamin B-12) [Vitamin B-12] 1,000 mcg tablet 1,000 mcg PO DAILY ondansetron 8 mg tablet,disintegrating 8 mg PO Q8H PRN (Reason: Nausea And Vomiting) levothyroxine 150 mcg tablet 150 mcg PO DAILYBB gabapentin 300 mg capsule 600 mg PO BID omeprazole 20 mg capsule,delayed release(DR/EC) 20 mg PO DAILY metoprolol succinate 25 mg tablet extended release 24 hr 12.5 mg PO DAILY potassium chloride 20 mEq Tablet Extended Release 20 meq PO DAILY calcium carbonate-vitamin D3 1,000 mg-20 mcg (800 unit) Tablet 1 tab PO DAILY prochlorperazine maleate [Compazine] 10 mg Tablet 10 mg PO Q8H PRN (Reason: Nausea) acetaminophen [Tylenol Extra Strength] 500 mg Tablet 500 mg PO Q6H PRN (Reason: Pain) lorazepam 0.5 mg Tablet 0.5 mg PO DAILY PRN (Reason: Anxiety) buspirone 10 mg tablet See Rx Instructions .ROUTE .COMPLEX Rx Instructions: TAKES 20 MG QAM & QHS, THEN 10 MG Q AFTERNOON. bupropion HCl 300 mg tablet extended release 24 hr 300 mg PO QAM Rx Instructions: TOTAL DOSE 450 MG--TAKES WITH 150 MG TAB. bupropion HCl 150 mg tablet extended release 24 hr 150 mg PO QAM Rx Instructions: TOTAL DOSE 450 MG--TAKES WITH 300 MG TAB. magnesium oxide 400 mg magnesium Tablet 800 mg PO BID furosemide [Lasix] 40 mg Tablet 40 mg PO QAM fluoride (sodium) [Sodium Fluoride 5000 Dry Mouth] 1.1 % Paste 1 applic DENTAL HS ergocalciferol (vitamin D2) 1,250 mcg (50,000 unit) capsule 50,000 unit PO WK Rx Instructions: MONDAYS oxycodone 5 mg tablet 5 mg PO Q6H PRN (Reason: pain) Qty: 10 0RF spironolactone 25 mg tablet 12.5 mg PO DAILY Discharge Orders: Discharge Order (Routine); Ordered 04/30/24 Ordered By: Romero Neal/Other Patient Handouts: Understanding the Pain Response, Medicine for Pain Admission Data Admit Date/Time: 04/28/24 09:54 Attending Provider: Romero Kaur Admit Provider: Romero Kaur Primary Care Provider: Joe Peng Other Providers: Sofi Yen; Romero Kaur Other Interventions: Discharge Summary Assessment (RN) Last Done: 04/30/24 11:56
[2024-05-04] MEDS ORDERED: ERGOCALCIFEROL 1250 MCG (50,000 UNITS) CAP PO SCH (09:00)
== END 2024-04-30 13:32 | disposition home or self-care (01) | DRG 593 ==
LOC: ED 02:49 → 3W 09:54

== ENCOUNTER 2024-06-16 05:25 | Inpatient (IN) ==
[2024-06-16] MEDS: HYDROmorphone INJ 0.5 MG/0.5 ML SYR IM STA (07:16)
[2024-06-16] MEDS: KETOROLAC TROMETHAMINE 15 MG/ML VIAL IM STA (07:16)
--- NOTE | 2024-06-16 07:26 | Emergency Department Note ---
Impression & Plan Chronic leg pain ED Provider Note NAME: JONATHAN YEN AGE: 69 SEX: F : 1955 ARRIVES VIA: Walk-In INFORMANT: Patient, ED PROVIDER(S): Alvin Dockery MD CHIEF COMPLAINT: Right lower extremity pain HPI: This is a 69-year-old female presenting for right lower extremity pain. Patient history of chronic ulcers to her lower extremity on the right. She is at this exact area is fairly painful. She notes that has been painful and takes 5 mg of oxycodone without much relief. She was seen here yesterday after a fall and went to wound care with a rib after wound. She notes that around 3 in the morning she began having pain that was unbearable. Similar pain to previous. No significant difference. No fevers, chills, nausea or vomiting ROS: See above HPI for pertinent positives & negatives. A total of 10 systems reviewed and were otherwise negative. PAST MEDICAL HISTORY: See Below PAST SURGICAL HISTORY: See Below FAMILY HISTORY: See Below SOCIAL HISTORY: See Below HOME MEDICATIONS: See Below ALLERGIES: See Below VITALS: See Below PHYSICAL EXAMINATION: General: resting comfortably in no acute distress Head: Normocephalic and atraumatic Eyes: Normal inspection, extraocular muscles intact Ear, nose, throat: Normal external exam Neck: Normal range of motion Respiratory: speaking in full sentences, symmetric chest rise, no respiratory distress Cardiovascular: Regular rate/rhythm Extremities: Right lower extremity with ovoid chronic wound, no active drainage, surrounding skin is not erythematous, significantly dry, well-perfused foot distally Neuro: The patient awake and alert, appropriately conversive, symmetric faces, no focal deficits MEDICAL DECISION MAKING: This is a 69-year-old female present for right lower extremity pain. Patient has intact pulses to the right lower extremities. Otherwise she is at pain in this area of the ulcer. She notes is a chronic pain. Not controlled oxycodone. -Will give Toradol and Dilaudid IM for pain control. Patient does follow with palliative care tomorrow for further options for pain control. -Attempted discharge as patient has palliative care appointment tomorrow as he is on large doses of medication here. Unfortunately she has continued pain and tearful at this time. Will need for further pain control at patient's/family's request. -Blood work ordered for inpatient team showing hyponatremia, hypomagnesemia -ECG independently interpreted by me with normal sinus rhythm, rate of 63, normal axis, normal IA, normal QRS, normal QTc, no ST segment elevations consistent with STEMI criteria, overall low QRS voltage, difficult to interpret Differential diagnosis: Intractable pain, venous stasis ulcer, DVT, arterial occlusion ER treatment provided: See below Independent History obtained from: Diagnostics interpreted by me: ECG: None Cardiac Monitoring: An order was placed for continuous cardiac monitoring. The monitor shows a rate of 62 with sinus rhythm. Laboratory studies: As stated above and show below. Imaging studies: See below. Past Med/Surg History Problem List (Updated 06/16/24 @ 08:22 by Alvin Dockery MD) Chronic leg pain (Acute) Acute hip pain (Acute) Fall (Acute) Pain of right lower extremity Leg wound, right (Acute) Chronic leg pain (Acute) Lower extremity edema Venous ulcer of right leg (Acute) Cellulitis (Acute) Pseudomonas infection (Acute) Lab test positive for detection of COVID-19 virus (Acute) Anemia (Acute) Leukemia cutis (Acute) Encounter for pre-operative examination Leukemia cutis (Chronic) Encounter for pre-operative examination Weight loss Diarrhea Unresponsiveness (Acute) Pancytopenia (Acute) Hypotension (Acute) AML (acute myeloblastic leukemia) (Acute) H/O colonoscopy (Chronic) "06/04/2014 diverticulosis, repeat 5 yrs" S/P anal fissurectomy (Chronic) Takotsubo cardiomyopathy (Chronic) Transaminitis Hypothyroidism (Chronic) Hyperbilirubinemia AML (acute myelogenous leukemia) (Chronic) Medical History Lymphedema Acute alteration in mental status S/P radiation therapy before bone marrow transplant 12-11-2016 History of diabetes mellitus HX STEROID INDUCED DIABETES, NOW RESOLVED Low blood pressure Sepsis due to Pseudomonas species with acute organ dysfunction and septic shock this happened 100 days after the transplant CMV (cytomegalovirus infection) HX ? PT NOT SURE Autoimmune hepatitis Nausea and vomiting after administration of anesthetic agent Hypothyroidism AML (acute myeloblastic leukemia) diagnosed - CURRENT CHEMOTHERAPY/PORT RIGHT CHEST TMJ disease HX SURGERY, RESOLVED PROBLEM Depression Anxiety Migraine HX Takotsubo cardiomyopathy reason for metoprolol--follows with Dr. 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 History of amputation of toe left big toe History of hemorrhoidectomy History of colonoscopy History of esophagogastroduodenoscopy (EGD) History of vascular access device right APORT History of mandibular surgery TMJ sx--plate in right side of jaw History of tooth extraction History of wisdom tooth extraction History of cardiac cath 2013 in [place]---no stents Family History Sister Family history of diabetes mellitus Mother , age 84 Head and neck cancer COPD (chronic obstructive pulmonary disease) Father , age 75 Esophageal cancer Sister Vertigo Hypertension Sister Hypothyroidism Brother Combined hyperlipidemia Brother Colorectal cancer Brother Gout Brother No problems noted. Grandmother (Maternal) Breast cancer Other No family history of adverse response to anesthesia Social History Smoking Status: Never smoker Second Hand Exposure: No; Do You Dip or Chew Tobacco: No; Tobacco Cessation Education Requested by Patient: No Hx Alcohol Use: No Hx Substance Use: No Preferred Language: [place] Communication Ability: Effective Visual Impairment: No Limitations Hearing Ability: Normal Force Dispatcher Required: No Beliefs That Will Affect Care: None marital status: Current Living Situation: Spouse Current Living Situation Comment: lives with current occupational status: retired 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 Other Information That Helps Us Care for You: No Feels Safe at Home: Yes Safety Concerns: Feels Safe At This Time Childhood Exposure to Second-Hand Smoke: Yes Assistive Devices: Glasses and Walker Assistive Devices Comment: readers Allergies Allergies Allergy/AdvReac Type Severity Reaction Status Date / Time amoxicillin AdvReac Intermediate NAUSEA/VOMI Verified 06/15/24 13:09 TING Penicillins AdvReac Intermediate NAUSEA/VOMITING/"FEELS Verified 06/15/24 13:09 NERVOUS" Home Meds Home Medications Medication Instructions Recorded Confirmed acetaminophen 500 mg tablet 500 mg PO Q6H PRN Pain 08/22/23 06/16/24 (Tylenol Extra Strength) bupropion HCl 150 mg 24 hr tablet, 150 mg PO QAM 08/22/23 06/16/24 extended release bupropion HCl 300 mg 24 hr tablet, 300 mg PO QAM 08/22/23 06/16/24 extended release buspirone 10 mg tablet See Rx Instructions .Route .COMPLEX 08/22/23 06/16/24 calcium 1,000 mg (as 1 tab PO DAILY 08/22/23 06/16/24 carbonate)-vitamin D3 20 mcg (800 unit) tablet cyanocobalamin (vitamin B-12) 1,000 mcg PO DAILY 08/22/23 06/16/24 1,000 mcg tablet (Vitamin B-12) gabapentin 300 mg capsule 600 mg PO BID 08/22/23 06/16/24 levothyroxine 150 mcg tablet 150 mcg PO DAILYBB 08/22/23 06/16/24 lorazepam 0.5 mg tablet 0.5 mg PO DAILY PRN Anxiety 08/22/23 06/16/24 magnesium oxide 800 mg PO BID 08/22/23 06/16/24 metoprolol succinate 25 mg 12.5 mg PO DAILY 08/22/23 06/16/24 tablet,extended release 24 hr omeprazole 20 mg capsule,delayed 20 mg PO DAILY 08/22/23 06/16/24 release ondansetron 8 mg disintegrating 8 mg PO Q8H PRN Nausea And Vomiting 08/22/23 06/16/24 tablet potassium chloride 20 mEq 20 meq PO DAILY 08/22/23 06/16/24 tablet,extended release prochlorperazine maleate 10 mg 10 mg PO Q8H PRN Nausea 08/22/23 06/16/24 tablet (Compazine) ergocalciferol (vitamin D2) 1,250 50,000 unit PO WK 12/25/23 06/16/24 mcg (50,000 unit) capsule fluoride (sodium) 1.1 % dental 1 applic dental HS 12/25/23 06/16/24 paste (Sodium Fluoride 5000 Dry Mouth) furosemide 40 mg tablet (Lasix) 40 mg PO QAM 12/25/23 06/16/24 spironolactone 25 mg tablet 12.5 mg PO DAILY 03/14/24 06/16/24 apixaban 5 mg tablet (Eliquis) 5 mg PO BID 04/16/24 06/16/24 Previous Rx's Medication Instructions Recorded oxycodone 5 mg tablet 5 mg PO Q6H PRN pain #10 tabs 12/25/23 ciprofloxacin HCl 500 mg tablet 500 mg PO q12h #20 tabs 06/03/24 doxycycline hyclate 100 mg tablet 100 mg PO bid #20 tabs 06/03/24 Results & Data (ED) Vital Signs Vital Signs - 24 hr 06/16/24 05:26 06/16/24 05:27 06/16/24 07:05 Temperature 36.6 C Temperature Source Temporal Artery Scan Pulse Rate 89 Pulse Rate [Right Finger] 79 85 Pulse Rhythm [Right Finger] Regular Pulse Strength [Right Finger] Normal Respiratory Rate 18 18 16 Respiratory Effort / Characteristics Non-Labored Non-Labored Spontaneous Respiratory Depth Normal Normal Respiratory Pattern Regular Regular Blood Pressure 133/79 Blood Pressure [Right Arm] 112/72 112/72 Blood Pressure Mean 97 Blood Pressure Mean [Right Arm] 85 85 Blood Pressure Position Sitting Blood Pressure Position [Right Arm] Lying Pulse Oximetry 100 100 98 Oxygen Delivery Method Room Air Room Air Room Air Sepsis Recent Fever Within 48 Hours No Sepsis New/Unexplained Change in Mental Status N/A Sepsis Action Taken by Nursing No Action Required 06/16/24 09:00 Temperature Temperature Source Pulse Rate Pulse Rate [Right Finger] 75 Pulse Rhythm [Right Finger] Regular Pulse Strength [Right Finger] Normal Respiratory Rate 18 Respiratory Effort / Characteristics Non-Labored Spontaneous Respiratory Depth Normal Respiratory Pattern Blood Pressure Blood Pressure [Right Arm] Blood Pressure Mean Blood Pressure Mean [Right Arm] Blood Pressure Position Blood Pressure Position [Right Arm] Pulse Oximetry 98 Oxygen Delivery Method Sepsis Recent Fever Within 48 Hours Sepsis New/Unexplained Change in Mental Status Sepsis Action Taken by Nursing Laboratory Data 06/16/24 10:05 06/16/24 10:05 Administered Medications Bupropion HCl (Bupropion Xl 300 Mg Tabcr) 300 mg PO QAM [facility] Stop: 07/16/24 09:29 Last Admin: 06/16/24 10:35 Dose: 300 mg Documented By: SHAE Bupropion HCl (Bupropion Xl 150 Mg Tabcr) 150 mg PO QAM [facility] Stop: 07/16/24 09:29 Last Admin: 06/16/24 10:37 Dose: 150 mg Documented By: SHAE Buspirone HCl (Buspirone 5 Mg Tab) 20 mg PO BID [facility] Stop: 07/16/24 09:29 Last Admin: 06/16/24 10:36 Dose: 20 mg Documented By: SHAE Ciprofloxacin (Ciprofloxacin 500 Mg Tab) 500 mg PO BID [facility]; Protocol Stop: 06/23/24 09:29 Last Admin: 06/16/24 10:36 Dose: 500 mg Documented By: SHAE Discontinued Medications Hydromorphone HCl (Hydromorphone Inj 0.5 Mg/0.5 Ml Syr) 0.5 mg IM NOW STA Stop: 06/16/24 07:03 Last Admin: 06/16/24 07:16 Dose: 0.5 mg Documented By: SHAE Hydromorphone HCl (Hydromorphone Inj 0.5 Mg/0.5 Ml Syr) 0.5 mg IV NOW STA Stop: 06/16/24 09:23 Last Admin: 06/16/24 10:37 Dose: 0.5 mg Documented By: SHAE Ketorolac Tromethamine (Ketorolac Tromethamine 15 Mg/Ml Vial) 15 mg IM NOW STA Stop: 06/16/24 07:03 Last Admin: 06/16/24 07:16 Dose: 15 mg Documented By: SHAE Potassium Chloride (Potassium Chloride Crtab 20 Meq Tabcr) 40 meq PO NOW STA Stop: 06/16/24 10:55 Last Admin: 06/16/24 11:56 Dose: 40 meq Documented By: SHAE Discharge Plan Visit Data Chief Complaint: Leg Injury/Pain Stated Complaint: RT LEG GRICEL STASIS WOUNDS ON REEDER,PAIN ED Provider: Alvin Dockery Discharge Problem: Chronic leg pain Patient Disposition: Admitted As Inpatient Discharge Instructions Interventions: ED Discharge Assessment Last Done: 06/16/24 12:45
[2024-06-16] MEDS ORDERED: LORazepam 0.5 MG TAB PO PRN (09:26)
--- OUTSIDE RECORDS SUMMARY | 2024-06-16 09:35 | External Medical Summary | Summary of Care ---
Author Name Unknown Organization [facility] Address [address] [place] [address] Phone [phone] Care Team Providers Care Apprenticeship Consultant Name Role Phone Joe Peng DO Primary Care Provider [phone] Encounter Details Date Type Department Care Team (Late st Contact Info) Description 06/15/2024 Telephone Hematology/Oncology, [facility] [address] [place] [address] Corbin Nielson MD [address] [place] [address] Allergies Active Allergy Reactions Criticality Noted Date Comments Amoxicillin Nausea/vomiting 11/14/2015 Penicillins Nausea/vomiting Low 08/12/2007 tolerated cephalosporins in past Other reaction(s): Nausea Only Other reaction(s): "makes me nervous", Nausea documented as of this encounter (statuses as of 06/15/2024) Medications Calcium Carb-Cholecalcife rol 1000-800 MG-UNIT Oral Tablet Take 1 Tablet by mouth in the morning. Active buPROPion HCl ER (XL) 150 MG Oral Tablet Extended Release 24 Hour (Wellbutrin XL) Take 1 Tablet by mouth in the morning. 05/05/20 21 Active buPROPion HCl ER (XL) 300 MG Oral Tablet Extended Release 24 Hour (Wellbutrin XL) Take 1 Tablet by mouth in the morning. 05/05/20 21 Active Potassium Chloride ER 20 MEQ Oral Tablet Extended ReleaseIndication s:Hypokalemia Take 1 Tablet by mouth in the morning. 90 Tablet 1 11/30/19 22 Active Prochlorperazine Maleate 10 MG Oral Tablet (Compazine) Take by mouth 1 Tablet every 8 hours as needed for Nausea. Every 6 hours as needed for nausea 30 Tablet 11 03/08/20 22 Active Acetaminophen 500 MG Oral Tablet Take 1 Tablet by mouth every 6 hours as needed. Active Vitamin B-12 1000 MCG Oral Tablet (Cyanocobalamin) TAKE 1 TABLET BY MOUTH EVERY DAY IN THE MORNING 90 Tablet 1 07/02/20 23 Active busPIRone HCl 10 MG Oral Tablet (Buspar) 2 tabs in am, 1 tab in afternoon, 2 tabs in evening 06/19/20 23 Active Sodium Fluoride 5000 PPM 1.1 % Dental Paste USE DIRECTED ONCE A DAY AT BEDTIME 07/01/20 23 Active Vitamin D3 1.25 MG (33403 UT) Oral Capsule Take 1 Capsule by mouth once a week. 12 Capsule 1 09/04/19 24 Active Ondansetron 8 MG Oral Tablet DisintegratingInd ications:Acute myeloid leukemia in remission (HCC) Place 1 Tablet on tongue every 8 hours as needed for Nausea. dissolve on tongue. 90 Tablet 1 09/04/19 24 Active Gabapentin 300 MG Oral Capsule (Neurontin)Indica tions:Lumbar radiculopathy Take 2 Capsules by mouth in the morning and 2 Capsules in the evening. 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 180 Tablet 02/14/20 24 Active Spironolactone 25 MG Oral Tablet (Aldactone) Take 0.5 Tablets by mouth in the morning. 50 Tablet 3 02/24/20 24 Active Omeprazole 20 MG Oral Capsule Delayed Release (PriLOSEC)Indicat ions:Gastroesopha geal reflux disease without esophagitis TAKE 1 CAPSULE IN THE MORNING 90 Capsule 1 03/11/20 24 Active Metoprolol Succinate ER 25 MG Oral Tablet Extended Release 24 Hour (toPROL XL)Indications:Ta kotsubo cardiomyopathy TAKE 1/2 TABLET DAILY 45 Tablet 3 05/09/20 24 Active Levothyroxine Sodium 150 MCG Oral Tablet (Levoxyl)Indicati ons:Acquired hypothyroidism TAKE 1 TABLET IN THE MORNING AT LEAST 30 MINUTESPRIOR TO BREAKFAST OR OTHERMEDICATIONS 90 Tablet 1 05/11/20 Active Furosemide 40 MG Oral Tablet (Lasix)Indication s:Lower extremity edema,Mitral valve prolapse Take 1 Tablet by mouth in the morning. 90 Tablet 2 05/11/20 Active Eliquis 5 MG Oral TabletIndications :Chronic deep vein thrombosis (DVT) of femoral vein of both lower extremities (HCC) Take 1 Tablet by mouth in the morning and 1 Tablet before bedtime. 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 60 Tablet 06/11/20 Active documented as of this encounter (statuses as of 06/15/2024) Active Problems Problem Noted Date Diagnosed Date History of DVT (deep vein thrombosis) 06/01/2024 Mitral valve prolapse 11/15/2023 Acute myeloid leukemia in remission 09/04/2023 Immune thrombocytopenic purpura 09/04/2023 Low vitamin D level 09/04/2023 Hypotension 06/19/2022 Leukemia cutis 06/19/2022 Transaminasemia 06/19/2022 [...] 01/20/2016 Takotsubo cardiomyopathy 02/12/2012 Hypothyroidism 08/27/2011 OTHER Overview (09/16/2007): enlarged septum in heart documented as of this encounter (statuses as of 06/15/2024) Resolved Problems Problem Noted Date Diagnosed Date [...] Cardiomyopathy 10/28/2017 05/19/2018 Dry gangrene 04/17/2017 07/31/2017 Overview (04/17/2017): Left great toe CLABSI (central line-associa liz [...] use of ant icoagulant therapy 02/12/2012 04/27/2015 Overview (05/06/2017): ICD-10 update of inactive term Other disorder of menstruati on and other abnormal bleeding from female genital tract 09/16/2007 04/27/2015 Uterine leiomyoma 09/16/2007 04/27/2015 documented as of this encounter (statuses as of 06/15/2024) Immunizations Name Administration Dates Next Due COVID-19 mRNA, LNP-s, No Pre serve, 2-Dose Series (Pfizer) 05/08/2021,08/29/2020,08/08/2020 DTaP Dipth/Tet/Acell Pertussis (Infanrix), Peds 12/25/2017,10/30/2017,09/25/2017 HIB Booster (Hiberix) 12/25/2017,10/30/2017,09/06 IPV - Polio Virus Vaccine (Inact) 12/25/2017,,09/30/2017 MMR - Measles/Mumps/Rubella Vaccine 09/30/2017 Pneumococcal Conjugate Vacc, 13 Valent (Prevnar) 05/25/2019,12/25/2017,10/30/2017,09/25 Pneumococcal Polysaccharide PPV23 (Pneumovax) 07/06/2022 RSV Vac., Bivalent, Perfusio n F, Pf,0.5 Ml (Abrysvo) 09/04/2023 Season Influenza, Quad, PF, Adjuvanted, 65+ Yrs, IM (FLUAD) 05/08/2021 Seasonal Influenza Vac., MDV , IM, 0.5 mL (Fluzone) 05/30/2015,05/16/2014,06/08/2011 Seasonal Influenza Virus Vac cine, Unspecified Formulation 06/27/2009,05/06/2009 Seasonal Influenza, High Dos e, Trivalent, PF, IM (Fluzone HD) 06/01/2024 Seasonal Influenza, PF, 6 M & above, IM , (FluLaval or Fluzone) 04/27/2020,05/25/2019,05/19/2018 Seasonal Influenza, Quadriva lent Hd (Fluzone Hd) 04/09/2023,06/18/2022 Seasonal Influenza, Quadriva lent Hd, 65+ Yrs 05/29/2021 Seasonal Influenza, Quadriva lent, No Preserve, IM 09/30/2017 TDAP (age 10 and older)(Boostrix) 09/30/2017 TDAP, Age 7 and older, IM (Adacel) 10/17/2010 documented as of this encounter Social [...] money to get more. Never true 08/08/2022 Utilities Answer Date Recorded Do you have trouble paying y our heating, water, or electric bill? (Adult - for ages 18 years and over) Not on file 01/21/2024 Is your family able to pay t he heat, water, or electric bill? (Household - for ages 0-17 years) Not on file 01/21/2024 Does your family have access to good internet? (Household - for ages 0-17 years) Not on file 01/21/2024 Social Connections Answer Date Recorded How often do you feel lonely or isolated from those around you? (Adult - for ages 18 years and over) Not on file 01/21/2024 Comments No Sex and Gender Information Value Date Recorded Sex Assigned at Female 08/08/2022 8:56 AM EST Legal Sex Female 6:32 AM EST Gender Identity Female 08/08/2022 8:56 AM EST Sexual Orientation Straight 08/08/2022 8: 56 AM EST documented as of this encounter Functional Status * Are you deaf or do you have serious difficulty hearing? Answer Date of Assessment Author No 06/15/2016 4:50 PM EST [place] Yip, Smoking Pipe Coater * Are you blind or do you have serious difficulty seeing, even when wearing glasses? Answer Date of Assessment Author No 06/15/2016 4:50 PM India Peck, Smoking Pipe Coater * Do you have serious difficulty walking or climbing stairs? (5 years old or older) Answer Date of Assessment Author No 06/15/2016 4:50 PM EST [place] Yip, Smoking Pipe Coater * Do you have difficulty dressing or bathing? (5 years old or older) Answer Date of Assessment Author No 06/15/2016 4:50 PM EST [place] Yiprine Sheridan, Smoking Pipe Coater * Because of a physical, mental, or emotional condition, do you have difficulty doing errands alone such as visiting a doctors office or shopping? (15 years old or older) Answer Date of Assessment Author Yes 06/15/2016 4:50 PM EST [place] Yiprine Sheridan, Smoking Pipe Coater documented as of this encounter Mental Status * Because of a physical, mental, or emotional condition, do you have serious difficulty concentrating, remembering, or making decisions? (5 years old or older) Answer Entry Date Author No 06/15/2016 4:50 PM EST [place] Yip, Smoking Pipe Coater documented in this encounter Miscellaneous Notes * Telephone Encounter - Mi Marie OSA - 06/15/2024 8:10 AM EST Pt called the call center and stated that she is in the ER they wanted to cancel all apts for this week FYI and please advise when these can be rescheduled documented in this encounter Plan of Treatment Upcoming Encounters Date Type Department Care Team (Late st Contact Info) Description 07/01/2024 10:30 AM EST Office Visit Interventional Pain Center, [facility] [address] [address] Isatu Boles PA-C [address] [address] 07/13/2024 2:30 PM EST Cardiac Studies Cardiac Studies, [facility] [address] [address] 09/09/2024 11:00 AM EST [facility] [address] [phone] Corbin Nielson MD [address] [facility] [address] [facility] [address] [place], [place] [address] 09/16/2024 2:20 PM EST Office Visit Nephrology, [facility] [address] [facility] [place] [address] Fernando Aguiar MD [address] [place], [place] [address] 12/30/2024 10:00 AM EDT Office Visit Family Practice [employer] [address] [facility] [place] [address] Joe Peng DO [address] [facility] [place] [address] Scheduled Procedures Name Priority Associated Diagnoses Date/Ti me COLONOSCOPY FLEXIBLE PROXIMAL DIAGNOSTIC Recall History of colon polyps Health Maintenance Due Date Last Done Comments Zoster Vaccines (1 of 2) 01/03/1975 Cologuard 01/03/2001 Fecal Occult Blood Test 01/03/2001 Sigmoidoscopy 01/03/2001 Adult Wellness Visit 01/03/2022 Depression Monitoring 06/19/2023 06/19/2022 Diabetic Eye Exam 01/22/2024 01/21/2023, , 07/09/2022, Additional history exists COVID-19 Vaccine ( season) 2024 05/08/2021, 08/29/2020, 08/08/2020 HbA1c 04/05/2024 10/04/2023, 05/0 03/2023, 05/28/2022, Additional history exists Albumin/Creatinine Ratio 04/09/2024 023, 12/04/2021, 08/15/2020, Additional history exists TSH 11/07/2024 11/08/2023, 05/0 03/2023, 12/04/2021, Additional history exists Diabetic Foot Exam 11/27/2024 11/28/2023, 0 01/10/2021, 05/25/2019, Additional history exists Mammogram 02/24/2025 02/25/2024, 02/03, 03/20/2023, Additional history exists GFR 05/12/2025 05/12/2024, 04/05, 03/26/2024, Additional history exists Colonoscopy 05/24/2025 05/24/2022, 05/06, 05/18/2019, Additional history exists Colorectal Cancer Screening 05/24/2025 Lipid Panel 04/17/2026 04/17/2021, 08/05, 05/18/2015, Additional history exists DTap/Tdap Vaccines (7 - Td or Tdap) 12/26/2027 12/25/2017, 10/30/2017, 09/30/2017, Additional history exists DXA Scan 01/23/2030 01/23/2023, 01/04, 11/04/2018, Additional history exists Pap Smear Discontinued 08/13/2019, 08/2013, 03/05/2014, Additional history exists Pneumococcal Vaccine: 65+ Years Completed 07/06/2022, 05/25/2019, 12/25/2017, Additional history exists Influenza Vaccine (FLU shot) Completed 06/01/2024, 04/09/2023, 06/18/2022, Additional history exists HPV (Gardasil) Vaccine Aged Out No lo nger eligible based on patient's age to complete this topic Hepatitis B Vaccine Aged Out No longe r eligible based on patient's age to complete this topic MENINGOCOCCAL (MENACTRA/MENVEO) Aged Out No longer eligible based on patient's age to complete this topic documented as of this encounter Medical Devices Not on filedocumented as of this encounter Advance Directives * Full Code (Latest Code Status on File) Date Activated Date Inactivated Comments 04/02/2017 4:50 AM 04/17/2017 3:02 PM This order r eflects the patients wishes and were consensually agreed upon. Question Answer Comments Discussion of Advance Directives occurred with: Family Does the patient have a Living Will? No Does the patient have Health Care Power of Attor maycol? No * Full Code Date Activated Date Inactivated Comments 06/15/2016 5:56 PM 08/09/2016 8:19 PM This order r eflects the patients wishes and were consensually agreed upon. Question Answer Comments Discussion of Advance Directives occurred with: Patient Does the patient have a Living Will? No Does the patient have Health Care Power of Attor maycol? No * Full Code Date Activated Date Inactivated Comments 05/15/2016 3:18 AM 06/08/2016 6:42 PM This order reflects the patients wishes and were consensually agreed upon. Question Answer Comments Discussion of Advance Directives occurred with: Not Discussed Care Teams Apprenticeship Consultant Relationship Specialty Start Date End Date Joe Peng DO [address] [place] [address] PCP - General Family Medicine 05/19/18 documented as of this encounter
--- OUTSIDE RECORDS SUMMARY | 2024-06-16 09:35 | External Medical Summary | Summary of Care ---
Author Name Unknown Organization [facility] Address [address] [place] [address] Phone [phone] Care Team Providers Care Oil Lease Broker Name Role Phone Joe Peng DO Primary Care Provider [phone] Encounter Details Date Type Department Care Team (Late st Contact Info) Description 06/15/2024 Telephone Hematology/Oncology, [facility] [address] [place] [address] Corbin Nielson MD [address] [place] [address] Allergies Active Allergy Reactions Criticality Noted Date [...] 07/01/20 23 Active Vitamin D3 1.25 MG (03106 UT) Oral Capsule Take 1 Capsule by [...] Vac., MDV , IM, 0.5 mL (Fluzone) 05/30/2015,05/17/2014,05/16/2014,05/12,05/30/2012,06/08/2011,05/10/2010 Seasonal Influenza Virus Vac cine, Unspecified Formulation [...] TDAP, Age 7 and older, IM (Adacel) 10/17/2010, documented as of this encounter Social History [...] No 06/15/2016 4:50 PM EST [place] Yip, Vice Admiral * Are you blind or do you have serious difficulty seeing, even when wearing glasses? Answer Date of Assessment Author No 06/15/2016 4:50 PM EST [place] Yip, Vice Admiral * Do you have serious difficulty walking or climbing stairs? (5 years old or older) Answer Date of Assessment Author No 06/15/2016 4:50 PM EST [place] Yip, Vice Admiral * Do you have difficulty dressing or bathing? (5 years old or older) Answer Date of Assessment Author No 06/15/2016 4:50 PM EST [place] Yip, Vice Admiral * Because of a physical, mental, or emotional condition, do you have difficulty doing errands alone such as visiting a doctors office or shopping? (15 years old or older) Answer Date of Assessment Author Yes 06/15/2016 4:50 PM EST [place] Yip, Vice Admiral documented as of this encounter Mental Status * Because of a physical, mental, or emotional condition, do you have serious difficulty concentrating, remembering, or making decisions? (5 years old or older) Answer Entry Date Author No 06/15/2016 4:50 PM India Peck, Vice Admiral documented in this encounter Miscellaneous Notes * Telephone Encounter - Timothy Haynes RN - 06/15/2024 9:15 AM EST Will check admission status tomorrow and reschedule from there. * Telephone Encounter - Mi Marie OSA [...] AM EST Office Visit Interventional Pain Center, [facility] [address] [place] [address] Isatu Boles PA-C [address] [place] [address] 07/13/2024 2:30 PM EST Cardiac Studies Cardiac Studies, [facility] [address] [place] [address] 09/09/2024 11:00 AM EST Office Visit Hematology/Oncology [facility] [address] [place] [phone] Corbin Nielson MD [address] [facility] [place] [address] 09/16/2024 2:20 PM EST Office Visit Nephrology, [facility] [address] [facility] [place] [address] Fernando Aguiar MD [address] [facility] [place] [address] 12/30/2024 10:00 AM EDT Office Visit Family Practice [facility] [address] [facility] [place] [address] Joe Peng, [address] [facility] [place] [address] Scheduled Procedures Name Priority Associated Diagnoses Date/Ti [...] 08/15/2020, Additional history exists TSH 11/07/2024 11/08/2023, 050 03/2023, 12/04/2021, Additional history exists Diabetic Foot [...] Directives occurred with: Not Discussed Care Teams Oil Lease Broker Relationship Specialty Start Date End Date Joe Peng DO [address] [place] [address] PCP - General Family Medicine 05/19/18 documented as of this encounter
[2024-06-16 10:30] LABS: Basophils # (auto) 0.04 K/uL (0.00-0.20); Basophils % (auto) 0.9 %; Eosinophils # (auto) 0.01 K/uL (0.00-0.50); Eosinophils % (auto) 0.2 %; Immature Granulocytes % (auto) 2.2 %; Lymphocytes # (auto) 1.28 K/uL (1.20-3.40); Lymphocytes % (auto) 28.3 %; Mean Corpuscular Hemoglobin 37.9 pg (25.0-34.0); Mean Corpuscular Hgb Conc 34.5 g/dL (32.0-36.0); Mean Corpuscular Volume 109.8 fL (80.0-100.0); Mean Platelet Volume 9.3 fL (9.4-12.4); Monocytes # (auto) 0.86 K/uL (0.11-0.59); Neutrophils # (auto) 2.24 K/uL (1.40-6.50); Neutrophils % (auto) 49.4 %; Platelet Count 291 K/uL (130-400); RDW Coefficient of Variation 14.5 % (11.5-14.5); RDW Standard Deviation 58.9 fL (36.4-46.3); Red Blood Count 2.64 M/uL (4.20-5.40); White Blood Count 4.53 K/ul (4.8-10.8)
[2024-06-16] MEDS: buPROPion XL 300 MG TABCR PO SCH (10:35)
[2024-06-16] MEDS: busPIRone 5 MG TAB PO SCH ×2 (10:36→14:47)
[2024-06-16] MEDS: CIPROFLOXACIN 500 MG TAB PO SCH (10:36)
[2024-06-16] MEDS: HYDROmorphone INJ 0.5 MG/0.5 ML SYR IV STA (10:37)
[2024-06-16] MEDS: buPROPion XL 150 MG TABCR PO SCH (10:37)
[2024-06-16 10:47] LABS: Albumin Globulin Ratio 1.3 (0.9-2); Albumin Level 2.6 gm/dl (3.4-5.0); BUN Creatinine Ratio 13.1 (10-20); Bilirubin,Total 0.7 mg/dl (0.2-1.0); Calcium 7.3 mg/dl (8.6-10.3); Creatinine Clr Calc Pharmacy 53.6 ml/min; Potassium 3.1 mmol/L (3.5-5.1); Total Protein 4.6 gm/dl (6.0-8.3)
--- NOTE | 2024-06-16 10:55 | History & Physical Report ---
Date of Service June 16, 2024 Assessment & Plan (1) Chronic leg pain: (2) Cellulitis: (3) Pseudomonas infection: (4) AML (acute myeloblastic leukemia): (5) Takotsubo cardiomyopathy: (6) Hypothyroidism: (7) Lymphedema: Plan Assessment and plan: Acute on chronic RLE pain/RLE venous stasis ulcers Hx leukemia cutis: Takes oxycodone chronically at home, follows with wound care outpatient Continue Cipro/Doxy started x 7 days ago, no S/S infection Wound culture on 06/01/2024 + staph/Pseudomonas IV Dilaudid and oxycodone for pain DM2: Diet controlled, last A1c 4.4 Chronic DVT/superficial thrombosis: Continue Eliquis twice a day, BLE venous Doppler + chronic DVT within bilateral common femoral veins on 03/15/2024 Acute thrombus also noted in the left greater saphenous vein Chronic BLE edema/lymphedema Continue home diuretics Mitral valve prolapse Takotsubo cardiomyopathy Follows with Dr. Bonilla outpatient, continue metoprolol Hx refractory AML/leukemia cutis Follows with oncology outpatient, currently on chemo once a month, outpatient infusions Hx hypothyroidism: Continue Synthroid Hx depression/anxiety: Continue BuSpar/Wellbutrin/lorazepam A total of 60 minutes was spent on chart review/reviewing diagnostic testing/f acilitating plan of care/discussion with consultants Anticipate ADC in the next 24 hours if pain is controlled Full code DVT prophylaxis: Eliquis History of Present Illness Chief Complaint: Right lower extremity pain Primary Care Provider: Joe Peng DO The patient is a 69-year-old female with a past medical history of DM2, diet controlled, hypothyroidism, Takotsubo cardiomyopathy, mitral valve prolapse, autoimmune hepatitis, GERD, amputation of left great toe, leukemia cutis s/p radiation therapy, chronically on chemo transfusions, AML, immune thrombocytopenic purpura, allogenic bone marrow transplant, depression, anxiety who presents to the ED on 06/16/2024 with complaints of worsening right lower extremity pain. The patient has been seen in the ER multiple times over the past few months for worsening pain. On exam, she denies any shortness of breath/chest pain/fever/chills. Reports being compliant with following up with wound care. She has also been taking antibiotics as prescribed. Denies any nausea/vomiting/abdominal pain. The patient reports being started on oral antibiotics about 7 days ago and taking this twice a day Patient was recently hospitalized in April 2024 with similar symptoms. Patient has a history of Pseudomonas. Her pain was also not controlled at this time. The patient was given IV Dilaudid in the ED and will be admitted for further management for pain Allergies Allergy/AdvReac Type Severity Reaction Status Date / Time amoxicillin AdvReac Intermediate NAUSEA/VOMI Verified 06/15/24 13:09 TING Penicillins AdvReac Intermediate NAUSEA/VOMITING/"FEELS Verified 06/15/24 13:09 NERVOUS" Home Medications Medication Instructions Recorded Confirmed Type acetaminophen 500 mg tablet 500 mg PO Q6H PRN Pain 08/22/23 06/16/24 History (Tylenol Extra Strength) bupropion HCl 150 mg 24 hr tablet, 150 mg PO QAM 08/22/23 06/16/24 History extended release bupropion HCl 300 mg 24 hr tablet, 300 mg PO QAM 08/22/23 06/16/24 History extended release buspirone 10 mg tablet See Rx Instructions .Route .COMPLEX 08/22/23 06/16/24 History calcium 1,000 mg (as 1 tab PO DAILY 08/22/23 06/16/24 History carbonate)-vitamin D3 20 mcg (800 unit) tablet cyanocobalamin (vitamin B-12) 1,000 mcg PO DAILY 08/22/23 06/16/24 History 1,000 mcg tablet (Vitamin B-12) gabapentin 300 mg capsule 600 mg PO BID 08/22/23 06/16/24 History levothyroxine 150 mcg tablet 150 mcg PO DAILYBB 08/22/23 06/16/24 History lorazepam 0.5 mg tablet 0.5 mg PO DAILY PRN Anxiety 08/22/23 06/16/24 History magnesium oxide 800 mg PO BID 08/22/23 06/16/24 History metoprolol succinate 25 mg 12.5 mg PO DAILY 08/22/23 06/16/24 History tablet,extended release 24 hr omeprazole 20 mg capsule,delayed 20 mg PO DAILY 08/22/23 06/16/24 History release ondansetron 8 mg disintegrating 8 mg PO Q8H PRN Nausea And Vomiting 08/22/23 06/16/24 History tablet potassium chloride 20 mEq 20 meq PO DAILY 08/22/23 06/16/24 History tablet,extended release prochlorperazine maleate 10 mg 10 mg PO Q8H PRN Nausea 08/22/23 06/16/24 History tablet (Compazine) ergocalciferol (vitamin D2) 1,250 50,000 unit PO WK 12/25/23 06/16/24 History mcg (50,000 unit) capsule fluoride (sodium) 1.1 % dental 1 applic dental HS 12/25/23 06/16/24 History paste (Sodium Fluoride 5000 Dry Mouth) furosemide 40 mg tablet (Lasix) 40 mg PO QAM 12/25/23 06/16/24 History oxycodone 5 mg tablet 5 mg PO Q6H PRN pain #10 tabs 12/25/23 06/16/24 Rx spironolactone 25 mg tablet 12.5 mg PO DAILY 03/14/24 06/16/24 History apixaban 5 mg tablet (Eliquis) 5 mg PO BID 04/16/24 06/16/24 History ciprofloxacin HCl 500 mg tablet 500 mg PO q12h #20 tabs 06/03/24 06/16/24 Rx doxycycline hyclate 100 mg tablet 100 mg PO bid #20 tabs 06/03/24 06/16/24 Rx Past Med/Surg History Problem List (Updated 06/16/24 @ 08:22 by Alvin Dockery MD) Chronic leg pain (Acute) Acute hip pain (Acute) Fall (Acute) Pain of right lower extremity Leg wound, right (Acute) Chronic leg pain (Acute) Lower extremity edema Venous ulcer of right leg (Acute) Cellulitis (Acute) Pseudomonas infection (Acute) Lab test positive for detection of COVID-19 virus (Acute) Anemia (Acute) Leukemia cutis (Acute) Encounter for pre-operative examination Leukemia cutis (Chronic) Encounter for pre-operative examination Weight loss Diarrhea Unresponsiveness (Acute) Pancytopenia (Acute) Hypotension (Acute) AML (acute myeloblastic leukemia) (Acute) H/O colonoscopy (Chronic) "06/04/2014 diverticulosis, repeat 5 yrs" S/P anal fissurectomy (Chronic) Takotsubo cardiomyopathy (Chronic) Transaminitis Hypothyroidism (Chronic) Hyperbilirubinemia AML (acute myelogenous leukemia) (Chronic) Medical History Lymphedema Acute alteration in mental status S/P radiation therapy before bone marrow transplant 12-11-2016 History of diabetes mellitus HX STEROID INDUCED DIABETES, NOW RESOLVED Low blood pressure Sepsis due to Pseudomonas species with acute organ dysfunction and septic shock this happened 100 days after the transplant CMV (cytomegalovirus infection) HX ? PT NOT SURE Autoimmune hepatitis Nausea and vomiting after administration of anesthetic agent Hypothyroidism AML (acute myeloblastic leukemia) diagnosed - CURRENT CHEMOTHERAPY/PORT RIGHT CHEST TMJ disease HX SURGERY, RESOLVED PROBLEM Depression Anxiety Migraine HX Takotsubo cardiomyopathy reason for metoprolol--follows with Dr. 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 History of amputation of toe left big toe History of hemorrhoidectomy History of colonoscopy History of esophagogastroduodenoscopy (EGD) History of vascular access device right APORT History of mandibular surgery TMJ sx--plate in right side of jaw History of tooth extraction History of wisdom tooth extraction History of cardiac cath 2012 in [place]---no stents Family History Sister Family history of diabetes mellitus Mother , age 84 Head and neck cancer COPD (chronic obstructive pulmonary disease) Father , age 75 Esophageal cancer Sister Vertigo Hypertension Sister Hypothyroidism Brother Combined hyperlipidemia Brother Colorectal cancer Brother Gout Brother No problems noted. Grandmother (Maternal) Breast cancer Other No family history of adverse response to anesthesia Social History Smoking Status: Never smoker Second Hand Exposure: No; Do You Dip or Chew Tobacco: No; Hx Alcohol Use: Yes Alcohol type: wine and hard liquor Alcohol Intake Frequency: Monthly or Less Hx Substance Use: No Preferred Language: Nigerian Communication Ability: Effective Visual Impairment: No Limitations Hearing Ability: Normal Locomotive Operator Required: No Beliefs That Will Affect Care: None marital status: Current Living Situation: Spouse Current Living Situation Comment: lives with current occupational status: retired 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 Feels Safe at Home: Yes Childhood Exposure to Second-Hand Smoke: Yes Assistive Devices: Walker Review of Systems Review of Systems: All systems reviewed & are unremarkable except as noted in HPI & below Physical Exam Constitutional: WD/WN, vitals as above Eyes: PERRL, conjunctivae normal, anicteric sclerae ENMT: external ear and nose normal, oropharynx normal Neck: trachea midline, no thyromegaly Respiratory: normal respiratory effort, lungs clear to auscultation Cardiovascular: RRR, no murmur, no edema Gastrointestinal (Abdomen): normal bowel sounds, soft, nontender, no hepa tosplenomegaly Musculoskeletal: no cyanosis or clubbing, extremities motor strength 5/5 Skin: no rashes, warm and dry (Right lower extremity venous stasis ulcer, no redness/tenderness on exam) Neurologic: PERRL, EOMI, accommodation nl, no face palsy, no dysarthria Psychiatric: A+Ox3, euthymic affect Lymphatic: no cervical or axillary lymphadenopathy Results & Data Results & Data Vital Signs (Past 12 Hours) Vital Signs Temp Pulse Pulse Resp BP BP Pulse Ox 06/16/24 10:15 69 06/16/24 10:09 65 17 109/71 100 06/16/24 09:00 75 18 98 06/16/24 07:05 85 16 112/72 98 06/16/24 05:27 36.6 C 89 18 133/79 100 06/16/24 05:26 79 18 112/72 100 O2 Del Method 06/16/24 10:15 06/16/24 10:09 Room Air 06/16/24 09:00 06/16/24 07:05 Room Air 06/16/24 05:27 Room Air 06/16/24 05:26 Room Air Diagnostic Findings Laboratory Results WBC 4.53 K/ul (4.8-10.8) L 06/16/24 10:05 RBC 2.64 M/uL (4.20-5.40) L 06/16/24 10:05 Hgb 10.0 g/dl (12.0-16.0) L 06/16/24 10:05 Hct 29.0 % (37.0-47.0) L 06/16/24 10:05 MCV 109.8 fL (80.0-100.0) H 06/16/24 10:05 MCH 37.9 pg (25.0-34.0) H 06/16/24 10:05 MCHC 34.5 g/dL (32.0-36.0) 06/16/24 10:05 RDW Std Deviation 58.9 fL (36.4-46.3) H 06/16/24 10:05 RDW Coeff of Selam 14.5 % (11.5-14.5) 06/16/24 10:05 Plt Count 291 K/uL (130-400) 06/16/24 10:05 MPV 9.3 fL (9.4-12.4) L 06/16/24 10:05 Immature Gran % (Auto) 2.2 % 06/16/24 10:05 Neut % (Auto) 49.4 % 06/16/24 10:05 Lymph % (Auto) 28.3 % 06/16/24 10:05 [place] % (Auto) 19.0 % 06/16/24 10:05 Eos % (Auto) 0.2 % 06/16/24 10:05 Baso % (Auto) 0.9 % 06/16/24 10:05 Neut # (Auto) 2.24 K/uL (1.40-6.50) 06/16/24 10:05 Lymph # (Auto) 1.28 K/uL (1.20-3.40) 06/16/24 10:05 [place] # (Auto) 0.86 K/uL (0.11-0.59) H 06/16/24 10:05 Eos # (Auto) 0.01 K/uL (0.00-0.50) 06/16/24 10:05 Baso # (Auto) 0.04 K/uL (0.00-0.20) 06/16/24 10:05 Immature Gran # (Auto) 0.10 K/uL (0.01-0.20) 06/16/24 10:05 Sodium 139 mmol/L (136-145) 06/16/24 10:05 Potassium 3.1 mmol/L (3.5-5.1) L 06/16/24 10:05 Chloride 102 mmol/L (98-107) 06/16/24 10:05 Carbon Dioxide 32 mmol/L (21-32) 06/16/24 10:05 Anion Gap 5 (3-11) 06/16/24 10:05 BUN 11 mg/dl (6-23) 06/16/24 10:05 Creatinine 0.84 mg/dl (0.6-1.2) 06/16/24 10:05 Est Cr Clr Drug Dosing 53.6 ml/min 06/16/24 10:05 eGFR 75.65 06/16/24 10:05 BUN/Creatinine Ratio 13.1 (10-20) 06/16/24 10:05 Glucose 78 mg/dl (70-99(Fasting)) 06/16/24 10:05 Calcium 7.3 mg/dl (8.6-10.3) L 06/16/24 10:05 Magnesium 0.9 mg/dl (1.7-2.4) L* 06/16/24 10:05 Total Bilirubin 0.7 mg/dl (0.2-1.0) 06/16/24 10:05 AST 22 U/L (13-39) 06/16/24 10:05 ALT 17 U/L (7-52) 06/16/24 10:05 Alkaline Phosphatase 239 U/L (34-104) H 06/16/24 10:05 Total Protein 4.6 gm/dl (6.0-8.3) L 06/16/24 10:05 Albumin 2.6 gm/dl (3.4-5.0) L 06/16/24 10:05 Globulin 2.0 gm/dl (2.5-4.0) L 06/16/24 10:05 Albumin/Globulin Ratio 1.3 (0.9-2) 06/16/24 10:05 Code Status & VTE Plan VTE Prophylaxis Plan VTE Prophylaxis will be ordered: Yes Supervising Physician Co-Signing Physician Notes 69-year-old lady with PMH of T2DM, hypothyroidism, Takotsubo cardiomyopathy, mitral valve prolapse, autoimmune hepatitis, GERD, amputation of left great toe, leukemia cutis status post radiation therapy, chronically on chemo transfusion, AML, immune thrombocytopenic purpura, allogenic bone marrow transplant, depression, anxiety presented to the ED with complaint of worsening RLE wound pain. Patient reports her RLE wound has been slowly getting better but not as expected, is currently on antibiotics since about 6 to 7 days for concern of cellulitis, the wound does not look cellulitis or infected at bedside exam. Patient denies any fever/nausea/vomiting/chills. Labs and imaging reviewed. Labs fairly at her baseline. Potassium 3.1, will replete. Magnesium 0.9, will replete. 06/15/2024 hip and pelvic x-ray reviewed. Acute on chronic RLE pain ISO RLE venous stasis ulcer: RLE ulcer does not look infected, no tenderness/warmth noted, minimal erythema along the borders without any tracking erythema noted. No purulent discharge or discharge of any sort noted. Will continue her recent outpatient antibiotics Cipro to complete 10-day course. She completed 10 d course of doxy. Pain management, bowel regimen.Wound care consult. On exam: GENERAL: Alert and oriented x3. NAD, on RA. HEENT: No pallor, no icterus. Pupils equal, round and reactive to light. Oral mucosa moist. NECK: No JVD, no neck masses. HEART: S1 and S2 heard. Regular rate and rhythm. No murmur, no gallop. RESPIRATORY SYSTEM: Normal AP diameter. No accessory muscle use. No wheezing, no crackles. ABDOMEN: Soft, bowel sounds present, nontender, no distention. CENTRAL NERVOUS SYSTEM: No facial droop. Speech is clear. Obeys simple commands. Moves extremities. EXTREMITIES: No edema, no erythema seen. Ant medial clark x Rt lower leg w/ about 5x 4 cm ulcer, unstageable/no drainage, no warmth or tenderness, minimal erythema along borders, no tracking erythema noted. I have seen and examined the patient and have discussed the case with the provider above. I agree with the assessment and plan as stated. time spent: 30 min. (2) Cellulitis Laterality: right Site of cellulitis: extremity Site of cellulitis of extremity: lower extremity Qualified Code(s): L03.115 - Cellulitis of right lower limb (4) AML (acute myeloblastic leukemia) Leukemia Active/Remission status: relapsed Qualified Code(s): C92.02 - Acute myeloblastic leukemia, in relapse
[2024-06-16] MEDS: POTASSIUM CHLORIDE CRTAB 20 MEQ TABCR PO STA (11:56)
[2024-06-16 11:58] LABS: Magnesium 0.9 mg/dl (1.7-2.4)
[2024-06-16] MEDS: HYDROmorphone INJ 0.5 MG/0.5 ML SYR IV PRN (14:47)
[2024-06-16] MEDS: MAGNESIUM SULFATE / D5W 1 GM/100 ML BAG IV SCH (14:48)
[2024-06-16] MEDS: oxyCODONE HCL IR 5 MG TAB (IMMEDIATE RELEASE) PO PRN (20:56)
[2024-06-16] MEDS: ACETAMINOPHEN 325 MG TAB PO PRN (20:56)
[2024-06-16] MEDS: MELATONIN 3 MG TAB PO PRN (20:56)
[2024-06-16] MEDS: APIXABAN 5 MG TABLET PO SCH (20:58)
[2024-06-16] MEDS: GABAPENTIN 300 MG CAP PO SCH (20:59)
[2024-06-17] MEDS: PROMETHAZINE 6.25 MG/50.25 ML BAG IV PRN (00:02)
[2024-06-17] MEDS: LEVOTHYROXINE SODIUM 150 MCG TABLET PO SCH (06:07)
[2024-06-17] MEDS: HEPARIN 100 UNIT/ML 5ML FLUSH FLUSH PRN (07:59)
[2024-06-17] MEDS: SPIRONOLACTONE 12.5 MG TAB PO SCH (08:05)
[2024-06-17] MEDS: FUROSEMIDE 40 MG TAB PO SCH (08:06)
[2024-06-17] MEDS: METOPROLOL SUCC 25MG EXT REL TAB PO SCH (08:06)
[2024-06-17] MEDS: CYANOCOBALAMIN (B-12) 500 MCG TABLET PO SCH (08:06)
[2024-06-17] MEDS: CALCIUM 600MG + VIT D 400 IU TAB PO SCH (08:06)
[2024-06-17] MEDS: PANTOprazole 40 MG TAB PO SCH (08:08)
[2024-06-17 08:25] LABS: Basophils # (auto) 0.04 K/uL (0.00-0.20); Basophils % (auto) 1.1 %; Eosinophils # (auto) 0.02 K/uL (0.00-0.50); Eosinophils % (auto) 0.5 %; Hematocrit (blood only) 28.1 % (37.0-47.0); Hemoglobin 9.6 g/dl (12.0-16.0); Immature Granulocytes # (auto) 0.09 K/uL (0.01-0.20); Immature Granulocytes % (auto) 2.4 %; Lymphocytes # (auto) 1.13 K/uL (1.20-3.40); Lymphocytes % (auto) 29.7 %; Mean Corpuscular Hemoglobin 37.6 pg (25.0-34.0); Mean Corpuscular Hgb Conc 34.2 g/dL (32.0-36.0); Mean Corpuscular Volume 110.2 fL (80.0-100.0); Mean Platelet Volume 9.3 fL (9.4-12.4); Monocytes # (auto) 0.83 K/uL (0.11-0.59); Monocytes % (auto) 21.8 %; Neutrophils # (auto) 1.69 K/uL (1.40-6.50); Neutrophils % (auto) 44.5 %; Platelet Count 242 K/uL (130-400); RDW Coefficient of Variation 14.2 % (11.5-14.5); RDW Standard Deviation 57.9 fL (36.4-46.3); Red Blood Count 2.55 M/uL (4.20-5.40)
[2024-06-17 08:39] LABS: Albumin Globulin Ratio 1.3 (0.9-2); Albumin Level 2.5 gm/dl (3.4-5.0); BUN Creatinine Ratio 16.4 (10-20); Bilirubin,Total 0.6 mg/dl (0.2-1.0); Calcium 7.9 mg/dl (8.6-10.3); Creatinine Clr Calc Pharmacy 67.2 ml/min; Magnesium 2.3 mg/dl (1.7-2.4); Potassium 3.6 mmol/L (3.5-5.1); Total Protein 4.5 gm/dl (6.0-8.3)
--- NOTE | 2024-06-17 08:47 | Palliative Care Consultation ---
Date of Consultation June 17, 2024 Assessment & Plan (1) Persistent wound pain: Begin trial of Percocet 7.5mg PO q4h prn and see what total daily use it, there is possible role for long acting opioid OIC remedies ordered for prevention, low dose with caution given hx of IBS/diarrhea at times Message sent to Dr Nielson - is Dacogen complicating wound healing? Do not feel she is a candidate for surgical wound options. (2) Pain of right lower extremity: (3) Chronic leg pain: (4) Acute hip pain: Laterality: right Qualified Code(s): M25.551 - Pain in right hip (5) Palliative care by specialist: Introduced Palliative Medicine and explained our role in patient's care. Patient and/or family were receptive to palliative services for goals of care discussions. Reviewed we are different from hospice, a home health nurse visiting service. Plan As above Await input from med onc Dr Nielson Thank you for allowing us to participate in the ongoing care of this patient. Please page with any additional concerns. Ivan Melgar DNP Director, Palliative Medicine History of Present Illness Reason for Consultation: "leukemia/pain" Attending Physician: Alirio Malin MD History of Present Illness 69yo female with AML s/p SCT at [place] 2018 now with non healing RLE wound, hx lymphedema, leukemia cutis under control with monthly Dacogen, some decline in PS admitted for poorly controlled wound pain was taking oxy 2.5 to 5mg at home + tylenol. occasional neurontin but not consistent with dosing, tends to break it up in parts over the day Allergies Allergy/AdvReac Type Severity Reaction Status Date / Time amoxicillin AdvReac Intermediate NAUSEA/VOMI Verified 06/15/24 13:09 TING Penicillins AdvReac Intermediate NAUSEA/VOMITING/"FEELS Verified 06/15/24 13:09 NERVOUS" Home Medications Medication Instructions Recorded Confirmed Type acetaminophen 500 mg tablet 500 mg PO Q6H PRN Pain 08/22/23 06/16/24 History (Tylenol Extra Strength) bupropion HCl 150 mg 24 hr tablet, 150 mg PO QAM 08/22/23 06/16/24 History extended release bupropion HCl 300 mg 24 hr tablet, 300 mg PO QAM 08/22/23 06/16/24 History extended release buspirone 10 mg tablet See Rx Instructions .Route .COMPLEX 08/22/23 06/16/24 History calcium 1,000 mg (as 1 tab PO DAILY 08/22/23 06/16/24 History carbonate)-vitamin D3 20 mcg (800 unit) tablet cyanocobalamin (vitamin B-12) 1,000 mcg PO DAILY 08/22/23 06/16/24 History 1,000 mcg tablet (Vitamin B-12) gabapentin 300 mg capsule 600 mg PO BID 08/22/23 06/16/24 History levothyroxine 150 mcg tablet 150 mcg PO DAILYBB 08/22/23 06/16/24 History lorazepam 0.5 mg tablet 0.5 mg PO DAILY PRN Anxiety 08/22/23 06/16/24 History magnesium oxide 800 mg PO BID 08/22/23 06/16/24 History metoprolol succinate 25 mg 12.5 mg PO DAILY 08/22/23 06/16/24 History tablet,extended release 24 hr omeprazole 20 mg capsule,delayed 20 mg PO DAILY 08/22/23 06/16/24 History release ondansetron 8 mg disintegrating 8 mg PO Q8H PRN Nausea And Vomiting 08/22/23 06/16/24 History tablet potassium chloride 20 mEq 20 meq PO DAILY 08/22/23 06/16/24 History tablet,extended release prochlorperazine maleate 10 mg 10 mg PO Q8H PRN Nausea 08/22/23 06/16/24 History tablet (Compazine) ergocalciferol (vitamin D2) 1,250 50,000 unit PO WK 12/25/23 06/16/24 History mcg (50,000 unit) capsule fluoride (sodium) 1.1 % dental 1 applic dental HS 12/25/23 06/16/24 History paste (Sodium Fluoride 5000 Dry Mouth) furosemide 40 mg tablet (Lasix) 40 mg PO QAM 12/25/23 06/16/24 History oxycodone 5 mg tablet 5 mg PO Q6H PRN pain #10 tabs 12/25/23 06/16/24 Rx spironolactone 25 mg tablet 12.5 mg PO DAILY 03/14/24 06/16/24 History apixaban 5 mg tablet (Eliquis) 5 mg PO BID 04/16/24 06/16/24 History ciprofloxacin HCl 500 mg tablet 500 mg PO q12h #20 tabs 06/03/24 06/16/24 Rx doxycycline hyclate 100 mg tablet 100 mg PO bid #20 tabs 06/03/24 06/16/24 Rx Patient History Medical History Lymphedema Acute alteration in mental status S/P radiation therapy before bone marrow transplant 12-11-2016 History of diabetes mellitus HX STEROID INDUCED DIABETES, NOW RESOLVED Low blood pressure Sepsis due to Pseudomonas species with acute organ dysfunction and septic shock this happened 100 days after the transplant CMV (cytomegalovirus infection) HX ? PT NOT SURE Autoimmune hepatitis Nausea and vomiting after administration of anesthetic agent Hypothyroidism AML (acute myeloblastic leukemia) diagnosed - CURRENT CHEMOTHERAPY/PORT RIGHT CHEST TMJ disease HX SURGERY, RESOLVED PROBLEM Depression Anxiety Migraine HX Takotsubo cardiomyopathy reason for metoprolol--follows with Dr. 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 History of amputation of toe left big toe History of hemorrhoidectomy History of colonoscopy History of esophagogastroduodenoscopy (EGD) History of vascular access device right APORT History of mandibular surgery TMJ sx--plate in right side of jaw History of tooth extraction History of wisdom tooth extraction History of cardiac cath 2012 in [place]---no stents Family History Sister Family history of diabetes mellitus Mother , age 84 Head and neck cancer COPD (chronic obstructive pulmonary disease) Father , age 75 Esophageal cancer Sister Vertigo Hypertension Sister Hypothyroidism Brother Combined hyperlipidemia Brother Colorectal cancer Brother Gout Brother No problems noted. Grandmother (Maternal) Breast cancer Other No family history of adverse response to anesthesia Social History Smoking Status: Never smoker Second Hand Exposure: No; Do You Dip or Chew Tobacco: No; Tobacco Cessation Education Requested by Patient: No Hx Alcohol Use: No Hx Substance Use: No Preferred Language: Setswana Communication Ability: Effective Visual Impairment: No Limitations Hearing Ability: Normal Statistical Financial Analyst Required: No Beliefs That Will Affect Care: None marital status: Current Living Situation: Spouse Current Living Situation Comment: lives with current occupational status: 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 Other Information That Helps Us Care for You: No Feels Safe at Home: Yes Safety Concerns: Feels Safe At This Time Childhood Exposure to Second-Hand Smoke: Yes Assistive Devices: Glasses and Walker Assistive Devices Comment: readers Review of Systems Review of Systems: All systems reviewed & are unremarkable except as noted in Subjective Results & Data Vital Signs (Past 12 Hours) Vital Signs Temp Pulse Resp BP Pulse Ox O2 Del Method 06/17/24 07:53 36.4 C L 67 16 112/72 100 Room Air Laboratory Results 06/17/24 06/16/24 Range/Units 07:59 10:05 WBC 3.80 L 4.53 L (4.8-10.8) K/ul RBC 2.55 L 2.64 L (4.20-5.40) M/uL Hgb 9.6 L 10.0 L (12.0-16.0) g/dl Hct 28.1 L 29.0 L (37.0-47.0) % MCV 110.2 H 109.8 H (80.0-100.0) fL MCH 37.6 H 37.9 H (25.0-34.0) pg MCHC 34.2 34.5 (32.0-36.0) g/dL RDW Std Deviation 57.9 H 58.9 H (36.4-46.3) fL RDW Coeff of Selam 14.2 14.5 (11.5-14.5) % Plt Count 242 291 (130-400) K/uL MPV 9.3 L 9.3 L (9.4-12.4) fL Immature Gran % (Auto) 2.4 2.2 % Neut % (Auto) 44.5 49.4 % Lymph % (Auto) 29.7 28.3 % [place] % (Auto) 21.8 19.0 % Eos % (Auto) 0.5 0.2 % Baso % (Auto) 1.1 0.9 % Neut # (Auto) 1.69 2.24 (1.40-6.50) K/uL Lymph # (Auto) 1.13 L 1.28 (1.20-3.40) K/uL [place] # (Auto) 0.83 H 0.86 H (0.11-0.59) K/uL Eos # (Auto) 0.02 0.01 (0.00-0.50) K/uL Baso # (Auto) 0.04 0.04 (0.00-0.20) K/uL Immature Gran # (Auto) 0.09 0.10 (0.01-0.20) K/uL Polychromasia 1+ Macrocytosis Present Target Cells 2+ Sodium 139 139 (136-145) mmol/L Potassium 3.6 3.1 L (3.5-5.1) mmol/L Chloride 102 102 (98-107) mmol/L Carbon Dioxide 33 H 32 (21-32) mmol/L Anion Gap 4 5 (3-11) BUN 11 11 (6-23) mg/dl Creatinine 0.67 0.84 (0.6-1.2) mg/dl Est Cr Clr Drug Dosing 67.2 53.6 ml/min eGFR 95.15 75.65 BUN/Creatinine Ratio 16.4 13.1 (10-20) Glucose 74 78 (70-99(Fasting)) mg/dl Calcium 7.9 L 7.3 L (8.6-10.3) mg/dl Magnesium 2.3 0.9 L* (1.7-2.4) mg/dl Total Bilirubin 0.6 0.7 (0.2-1.0) mg/dl AST 25 22 (13-39) U/L ALT 17 17 (7-52) U/L Alkaline Phosphatase 214 H 239 H (34-104) U/L Total Protein 4.5 L 4.6 L (6.0-8.3) gm/dl Albumin 2.5 L 2.6 L (3.4-5.0) gm/dl Globulin 2.0 L 2.0 L (2.5-4.0) gm/dl Albumin/Globulin Ratio 1.3 1.3 (0.9-2) Diagnostic Findings no new data PG Care Time/CCT Total # of Minutes Spent Total Time Spent: 65 Total Time Spent with Patient: Total time spent is greater than 50% in coordination of care (as documented) at patient's floor/unit and/or counseling patient: [place] [address] IN/OBS CONSULT LVL 4,60M Patient Type New Medical Decision Making High Complexity Diagnoses Persistent wound pain R52 Pain of right lower extremity M79.604 Chronic leg pain M79.606; G89.29 Acute hip pain M25.551 Laterality: right Palliative care by specialist Z51.5
[2024-06-17 09:20] LABS: Macrocytosis Present; Polychromasia 1+; Target Cells 2+
[2024-06-17] MEDS: GABAPENTIN 300 MG CAP PO SCH (14:03)
--- NOTE | 2024-06-17 18:08 | Hospitalist Progress Note ---
Date of Service June 17, 2024 Assessment & Plan (1) Chronic leg pain: (2) Cellulitis: (3) Pseudomonas infection: (4) AML (acute myeloblastic leukemia): (5) Takotsubo cardiomyopathy: (6) Hypothyroidism: (7) Lymphedema: Plan Acute on chronic RLE pain/RLE venous stasis ulcers H/O Leukemia Cutis Started on gabapentin Also on oxycodone as needed Adjust medications as needed Follows with wound care as outpatient Continue Cipro/Doxy started x 7 days ago Appreciate palliative care input Wound culture on 06/01/2024 + staph/Pseudomonas media intern consulted as well PT OT as able Hip Pain: --Hip X ray: No acute fractures within the pelvis or hips. Severe bilateral hip osteoarthritis, similar to prior radiographs. Possible underlying avascular necrosis of the femoral heads with redemonstration of right femoral head articular collapse. Pain likely due to osteoarthritis PT OT, pain control Will likely need Ortho evaluation as outpatient Hypomagnesemia Hypokalemia Replete electrolytes as needed Monitor DM II: Diet controlled, last A1c 4.4 Chronic DVT/superficial thrombosis: Continue Eliquis twice a day, BLE venous Doppler + chronic DVT within bilateral common femoral veins on 03/15/2024 Continue anticoagulation Chronic BLE edema/lymphedema Continue home diuretics Mitral valve prolapse Takotsubo cardiomyopathy Follows with Dr. Bonilla outpatient, continue metoprolol Hx refractory AML/leukemia cutis Follows with oncology outpatient, currently on chemo once a month, outpatient infusions Hx hypothyroidism: Continue levothyroxine Hx depression/anxiety: Continue BuSpar/Wellbutrin/lorazepam DVT Px: Eliquis Code Status Full Code Admission and Anticipated Discharge Date Admission Date: June 16, 2024 Subjective Patient is seen and examined at bedside States having right hip, right leg pain No nausea today Denies any chest pain, dyspnea, abdominal pain No other complaints Review of Systems Review of Systems: All systems reviewed & are unremarkable except as noted in Subjective Physical Exam Physical Exam: Physical Exam: Vitals signs as noted above General Appearance: Thin, frail, chronic ill appearing, no apparent distress Head: normocephalic, Atraumatic Eyes: normal inspection, EOMI Neck: supple, Trachea midline Respiratory/Chest: Normal breath sounds, CTA, + right Chemo-Port, no accessory muscle use Cardiovascular: S1, S2, No murmur Abdomen/GI:Soft, Non tender, Bowel sounds present Extremities/Musculoskeletal:normal inspection, no edema, right leg ulcer in dressing Neurologic/Psych:AAOX3, grossly no focal neurological deficits Skin: normal color, warm Results & Data Results & Data Vital Signs (Past 12 Hours) Vital Signs Temp Pulse Pulse Resp BP Pulse Ox O2 Del Method 06/17/24 14:30 36.5 C 71 16 103/67 100 Room Air 06/17/24 12:57 36.1 C L 64 16 102/70 100 Room Air 06/17/24 07:53 36.4 C L 67 16 112/72 100 Room Air Laboratory Results Short CBC 06/17/24 Range/Units 07:59 WBC 3.80 L (4.8-10.8) K/ul Hgb 9.6 L (12.0-16.0) g/dl Hct 28.1 L (37.0-47.0) % Plt Count 242 (130-400) K/uL BMP 06/17/24 07:59 Sodium 139 Potassium 3.6 Chloride 102 Carbon Dioxide 33 H BUN 11 Creatinine 0.67 Glucose 74 Calcium 7.9 L Liver Function 06/17/24 Range/Units 07:59 Total Bilirubin 0.6 (0.2-1.0) mg/dl AST 25 (13-39) U/L ALT 17 (7-52) U/L Alkaline Phosphatase 214 H (34-104) U/L Albumin 2.5 L (3.4-5.0) gm/dl (2) Cellulitis Laterality: right Site of cellulitis: extremity Site of cellulitis of extremity: lower extremity Qualified Code(s): L03.115 - Cellulitis of right lower limb (4) AML (acute myeloblastic leukemia) Leukemia Active/Remission status: relapsed Qualified Code(s): C92.02 - Acute myeloblastic leukemia, in relapse
[2024-06-17] MEDS: oxyCODONE/APAP 7.5/325MG TAB PO PRN (19:38)
[2024-06-18 08:54] LABS: Hematocrit (blood only) 31.5 % (37.0-47.0); Hemoglobin 10.5 g/dl (12.0-16.0); Mean Corpuscular Hemoglobin 37.1 pg (25.0-34.0); Mean Corpuscular Hgb Conc 33.3 g/dL (32.0-36.0); Mean Corpuscular Volume 111.3 fL (80.0-100.0); Mean Platelet Volume 9.5 fL (9.4-12.4); Platelet Count 257 K/uL (130-400); RDW Coefficient of Variation 14.4 % (11.5-14.5); RDW Standard Deviation 58.9 fL (36.4-46.3); Red Blood Count 2.83 M/uL (4.20-5.40); White Blood Count 4.67 K/ul (4.8-10.8)
[2024-06-18 09:11] LABS: BUN Creatinine Ratio 12.3 (10-20); Calcium 8.3 mg/dl (8.6-10.3); Creatinine Clr Calc Pharmacy 61.7 ml/min; Magnesium 1.8 mg/dl (1.7-2.4); Potassium 3.8 mmol/L (3.5-5.1)
[2024-06-18 09:56] VITALS: BP 97/67; PULSE 68; RESP 20; TEMP 97.7; O2SAT 98
--- NOTE | 2024-06-18 12:31 | Hospitalist Progress Note ---
Date of Service June 18, 2024 Assessment & Plan (1) Chronic leg pain: (2) Cellulitis: (3) Pseudomonas infection: (4) AML (acute myeloblastic leukemia): (5) Takotsubo cardiomyopathy: (6) Hypothyroidism: (7) Lymphedema: Plan Acute on chronic RLE pain/RLE venous stasis ulcers H/O Leukemia Cutis Increased gabapentin to 600 mg 3 times a day n Oxycodone changed to Percocet. Follows with wound care as outpatient Continue Cipro/Doxy started x 7 days ago Appreciate palliative care input Wound culture on 06/01/2024 + staph/Pseudomonas Continue wound care, appreciate block breaker operator help Coban Lite compression wrap to RLE PT OT recommends home with home PT Plan to discharge home today Hip Pain: --Hip X ray: No acute fractures within the pelvis or hips. Severe bilateral hip osteoarthritis, similar to prior radiographs. Possible underlying avascular necr osis of the femoral heads with redemonstration of right femoral head articular collapse. Pain likely due to osteoarthritis, suspected avascular necrosis of femoral head PT OT, pain control Advised to follow-up with orthopedics as outpatient Hypomagnesemia Hypokalemia Replete electrolytes as needed Monitor DM II: Diet controlled, last A1c 4.4 Chronic DVT/superficial thrombosis: Continue Eliquis twice a day, BLE venous Doppler + chronic DVT within bilateral common femoral veins on 03/15/2024 Continue anticoagulation Chronic BLE edema/lymphedema Continue home diuretics Mitral valve prolapse Takotsubo cardiomyopathy Follows with Dr. Bonilla outpatient, continue metoprolol Hx refractory AML/leukemia cutis Follows with oncology outpatient, currently on chemo once a month, outpatient infusions Hx hypothyroidism: Continue levothyroxine Hx depression/anxiety: Continue BuSpar/Wellbutrin/lorazepam DVT Px: Eliquis Code Status Full Code Disposition Home with home health Admission and Anticipated Discharge Date Admission Date: June 16, 2024 Subjective Patient is seen and examined at bedside Leg pain is much better today Did well with PT today Denies any chest pain, dyspnea, abdominal pain Prefers to be discharged home today Review of Systems Review of Systems: All systems reviewed & are unremarkable except as noted in Subjective Physical Exam Physical Exam: Physical Exam: Vitals signs as noted above General Appearance: Thin, frail, chronic ill appearing, no apparent distress Head: normocephalic, Atraumatic Eyes: normal inspection, EOMI Neck: supple, Trachea midline Respiratory/Chest: Normal breath sounds, CTA, + right Chemo-Port, no accessory muscle use Cardiovascular: S1, S2, No murmur Abdomen/GI:Soft, Non tender, Bowel sounds present Extremities/Musculoskeletal:normal inspection, no edema, right leg ulcer in dressing Neurologic/Psych:AAOX3, grossly no focal neurological deficits Skin: normal color, warm Results & Data Results & Data Vital Signs (Past 12 Hours) Vital Signs Temp Pulse Pulse Resp BP BP Pulse Ox 06/18/24 09:55 36.5 C 68 20 97/67 L 98 06/18/24 07:34 36.4 C L 64 18 94/62 L 100 06/18/24 07:20 O2 Del Method 06/18/24 09:55 Room Air 06/18/24 07:34 Room Air 06/18/24 07:20 Room Air Laboratory Results Short CBC 06/18/24 Range/Units 08:21 WBC 4.67 L (4.8-10.8) K/ul Hgb 10.5 L (12.0-16.0) g/dl Hct 31.5 L (37.0-47.0) % Plt Count 257 (130-400) K/uL BMP 06/18/24 08:21 Sodium 139 Potassium 3.8 Chloride 101 Carbon Dioxide 34 H BUN 9 Creatinine 0.73 Glucose 90 Calcium 8.3 L (2) Cellulitis Laterality: right Site of cellulitis: extremity Site of cellulitis of extremity: lower extremity Qualified Code(s): L03.115 - Cellulitis of right lower limb (4) AML (acute myeloblastic leukemia) Leukemia Active/Remission status: relapsed Qualified Code(s): C92.02 - Acute myeloblastic leukemia, in relapse
--- NOTE | 2024-06-18 12:41 | Discharge Summary ---
Date of Service June 18, 2024 Admission HPI Per Admitting Provider The patient is a 69-year-old female with a past medical history of DM2, diet controlled, hypothyroidism, Takotsubo cardiomyopathy, mitral valve prolapse, autoimmune hepatitis, GERD, amputation of left great toe, leukemia cutis s/p radiation therapy, chronically on chemo transfusions, AML, immune thrombocytopenic purpura, allogenic bone marrow transplant, depression, anxiety who presents to the ED on 06/16/2024 with complaints of worsening right lower extremity pain. The patient has been seen in the ER multiple times over the past few months for worsening pain. On exam, she denies any shortness of breath/chest pain/fever/chills. Reports being compliant with following up with wound care. She has also been taking antibiotics as prescribed. Denies any nausea/vomiting/abdominal pain. The patient reports being started on oral antibiotics about 7 days ago and taking this twice a day Patient was recently hospitalized in April 2024 with similar symptoms. Patient has a history of Pseudomonas. Her pain was also not controlled at this time. The patient was given IV Dilaudid in the ED and will be admitted for further management for pain Admission Exam Per Admitting Provider Constitutional: WD/WN, vitals as above Eyes: PERRL, conjunctivae normal, anicteric sclerae ENMT: external ear and nose normal, oropharynx normal Neck: trachea midline, no thyromegaly Respiratory: normal respiratory effort, lungs clear to auscultation Cardiovascular: RRR, no murmur, no edema Gastrointestinal (Abdomen): normal bowel sounds, soft, nontender, no hepatosplenomegaly Musculoskeletal: no cyanosis or clubbing, extremities motor strength 5/5 Skin: no rashes, warm and dry (Right lower extremity venous stasis ulcer, no redness/tenderness on exam) Neurologic: PERRL, EOMI, accommodation nl, no face palsy, no dysarthria Psychiatric: A+Ox3, euthymic affect Lymphatic: no cervical or axillary lymphadenopathy Principal Diagnosis Acute on chronic right lower extremity venous stasis ulcer pain Right hip osteoarthritis Hypomagnesemia Hypokalemia Refractory AML/leukemia cutis Discharge Data Allergies Allergy/AdvReac Type Severity Reaction Status Date / Time amoxicillin AdvReac Intermediate NAUSEA/VOMI Verified 06/15/24 13:09 TING Penicillins AdvReac Intermediate NAUSEA/VOMITING/"FEELS Verified 06/15/24 13:09 NERVOUS" Consultations 06/16/24 09:21 ED Decision to Admit Stat 06/16/24 12:41 Consult Palliative Care Routine Ordered Studies Laboratory Results WBC 4.67 K/ul (4.8-10.8) L 06/18/24 08:21 RBC 2.83 M/uL (4.20-5.40) L 06/18/24 08:21 Hgb 10.5 g/dl (12.0-16.0) L 06/18/24 08:21 Hct 31.5 % (37.0-47.0) L 06/18/24 08:21 MCV 111.3 fL (80.0-100.0) H 06/18/24 08:21 MCH 37.1 pg (25.0-34.0) H 06/18/24 08:21 MCHC 33.3 g/dL (32.0-36.0) 06/18/24 08:21 RDW Std Deviation 58.9 fL (36.4-46.3) H 06/18/24 08:21 RDW Coeff of Selam 14.4 % (11.5-14.5) 06/18/24 08:21 Plt Count 257 K/uL (130-400) 06/18/24 08:21 MPV 9.5 fL (9.4-12.4) 06/18/24 08:21 Immature Gran % (Auto) 2.4 % 06/17/24 07:59 Neut % (Auto) 44.5 % 06/17/24 07:59 Lymph % (Auto) 29.7 % 06/17/24 07:59 Humphreys % (Auto) 21.8 % 06/17/24 07:59 Eos % (Auto) 0.5 % 06/17/24 07:59 Baso % (Auto) 1.1 % 06/17/24 07:59 Neut # (Auto) 1.69 K/uL (1.40-6.50) 06/17/24 07:59 Lymph # (Auto) 1.13 K/uL (1.20-3.40) L 06/17/24 07:59 Humphreys # (Auto) 0.83 K/uL (0.11-0.59) H 06/17/24 07:59 Eos # (Auto) 0.02 K/uL (0.00-0.50) 06/17/24 07:59 Baso # (Auto) 0.04 K/uL (0.00-0.20) 06/17/24 07:59 Immature Gran # (Auto) 0.09 K/uL (0.01-0.20) 06/17/24 07:59 Polychromasia 1+ 06/17/24 07:59 Macrocytosis Present 06/17/24 07:59 Target Cells 2+ 06/17/24 07:59 Sodium 139 mmol/L (136-145) 06/18/24 08:21 Potassium 3.8 mmol/L (3.5-5.1) 06/18/24 08:21 Chloride 101 mmol/L (98-107) 06/18/24 08:21 Carbon Dioxide 34 mmol/L (21-32) H 06/18/24 08:21 Anion Gap 4 (3-11) 06/18/24 08:21 BUN 9 mg/dl (6-23) 06/18/24 08:21 Creatinine 0.73 mg/dl (0.6-1.2) 06/18/24 08:21 Est Cr Clr Drug Dosing 61.7 ml/min 06/18/24 08:21 eGFR 89.52 06/18/24 08:21 BUN/Creatinine Ratio 12.3 (10-20) 06/18/24 08:21 Glucose 90 mg/dl (70-99(Fasting)) 06/18/24 08:21 Calcium 8.3 mg/dl (8.6-10.3) L 06/18/24 08:21 Magnesium 1.8 mg/dl (1.7-2.4) 06/18/24 08:21 Total Bilirubin 0.6 mg/dl (0.2-1.0) 06/17/24 07:59 AST 25 U/L (13-39) 06/17/24 07:59 ALT 17 U/L (7-52) 06/17/24 07:59 Alkaline Phosphatase 214 U/L (34-104) H 06/17/24 07:59 Total Protein 4.5 gm/dl (6.0-8.3) L 06/17/24 07:59 Albumin 2.5 gm/dl (3.4-5.0) L 06/17/24 07:59 Globulin 2.0 gm/dl (2.5-4.0) L 06/17/24 07:59 Albumin/Globulin Ratio 1.3 (0.9-2) 06/17/24 07:59 Hospital Course (1) Chronic leg pain: (2) Cellulitis: (3) Pseudomonas infection: (4) AML (acute myeloblastic leukemia): (5) Takotsubo cardiomyopathy: (6) Hypothyroidism: (7) Lymphedema: Plan Acute on chronic RLE pain/RLE venous stasis ulcers H/O Leukemia Cutis Increased gabapentin to 600 mg 3 times a day n Oxycodone changed to Percocet. Follows with wound care as outpatient Continue Cipro/Doxy started x 7 days ago Appreciate palliative care input Wound culture on 06/01/2024 + staph/Pseudomonas Continue wound care, appreciate specialist wound care help Coban Lite compression wrap to RLE PT OT recommends home with home PT Plan to discharge home today Hip Pain: --Hip X ray: No acute fractures within the pelvis or hips. Severe bilateral hip osteoarthritis, similar to prior radiographs. Possible underlying avascular necrosis of the femoral heads with redemonstration of right femoral head articular collapse. Pain likely due to osteoarthritis, suspected avascular necrosis of femoral head PT OT, pain control Advised to follow-up with orthopedics as outpatient Hypomagnesemia Hypokalemia Replete electrolytes as needed Monitor DM II: Diet controlled, last A1c 4.4 Chronic DVT/superficial thrombosis: Continue Eliquis twice a day, BLE venous Doppler + chronic DVT within bilateral common femoral veins on 03/15/2024 Continue anticoagulation Chronic BLE edema/lymphedema Continue home diuretics Mitral valve prolapse Takotsubo cardiomyopathy Follows with Dr. Bonilla outpatient, continue metoprolol Hx refractory AML/leukemia cutis Follows with oncology outpatient, currently on chemo once a month, outpatient infusions Hx hypothyroidism: Continue levothyroxine Hx depression/anxiety: Continue BuSpar/Wellbutrin/lorazepam DVT Px: Eliquis Code Status Full Code Disposition Home with home health Total Time Total Time Spent Total Time Spent (In Minutes): 39 minutes Discharge Plan Discharge Items Patient Disposition: Home - Home Health Services Reason For Visit: RLE PAIN Discharge Diagnosis: Acute on chronic right lower extremity venous stasis ulcer pain Right hip osteoarthritis Hypomagnesemia Hypokalemia Refractory AML/leukemia cutis Activity: Per Instructions section Exercise/Sports: Gradually increase as tolerated Non-emergency contact: Primary Care Provider, Specialist and Oncologist Call non-emergency contact if: you have any medication questions, your symptoms worsen, your pain is concerning for you and you have a fever Follow-up/Referrals: [facility] [Other] - 06/22/24 2:50 pm Joe Peng DO [Primary Care Provider] - (Date & Time 06/24/2024 11:00 AM Provider Joe Peng DO Department [facility] ) Diet: Regular Addtl Attending Provider Instructions: Follow-up with your primary care physician on 06/24/2024 11:00 AM Follow-up with your orthopedic surgeon/pain management for further evaluation of your right hip pain Follow-up with your oncologist/palliative care as recommended Follow-up with wound clinic for further management of your leg wound/ulcer --Complete the antibiotic course as previously prescribed -- Your gabapentin dose is increased to 600 mg 3 times a day --Your oxycodone is changed to Percocet for better control of leg pain Seek immediate medical attention if your symptoms reoccur or worsen Please take all medications as instructed on discharge list below. Please call if you have any questions or problems. You can reach a [facility] hospitalist on duty at [facility] 24 hours a day by calling [phone] Pending Studies at Discharge: No Stand-Alone Forms: My [facility], Smoking Cessation Medications and DC Order Prescriptions: New oxycodone-acetaminophen [Endocet] 7.5-325 mg Tablet 1 tab PO Q6H PRN (Reason: pain) Qty: 10 0RF Continued Eliquis 5 mg tablet 5 mg PO BID Rx Instructions: 10 mg bid for 7 days, then 5 mg bid there after. ciprofloxacin HCl 500 mg tablet 500 mg PO q12h Qty: 20 0RF doxycycline hyclate 100 mg tablet 100 mg PO bid Qty: 20 0RF cyanocobalamin (vitamin B-12) [Vitamin B-12] 1,000 mcg tablet 1,000 mcg PO DAILY ondansetron 8 mg tablet,disintegrating 8 mg PO Q8H PRN (Reason: Nausea And Vomiting) levothyroxine 150 mcg tablet 150 mcg PO DAILYBB omeprazole 20 mg capsule,delayed release(DR/EC) 20 mg PO DAILY metoprolol succinate 25 mg tablet extended release 24 hr 12.5 mg PO DAILY potassium chloride 20 mEq Tablet Extended Release 20 meq PO DAILY calcium carbonate-vitamin D3 1,000 mg-20 mcg (800 unit) Tablet 1 tab PO DAILY prochlorperazine maleate [Compazine] 10 mg Tablet 10 mg PO Q8H PRN (Reason: Nausea) acetaminophen [Tylenol Extra Strength] 500 mg Tablet 500 mg PO Q6H PRN (Reason: Pain) lorazepam 0.5 mg Tablet 0.5 mg PO DAILY PRN (Reason: Anxiety) buspirone 10 mg tablet See Rx Instructions .ROUTE .COMPLEX Rx Instructions: TAKES 20 MG QAM & QHS, THEN 10 MG Q AFTERNOON. bupropion HCl 300 mg tablet extended release 24 hr 300 mg PO QAM Rx Instructions: TOTAL DOSE 450 MG--TAKES WITH 150 MG TAB. bupropion HCl 150 mg tablet extended release 24 hr 150 mg PO QAM Rx Instructions: TOTAL DOSE 450 MG--TAKES WITH 300 MG TAB. magnesium oxide 400 mg magnesium Tablet 800 mg PO BID furosemide [Lasix] 40 mg Tablet 40 mg PO QAM fluoride (sodium) [Sodium Fluoride 5000 Dry Mouth] 1.1 % Paste 1 applic DENTAL HS ergocalciferol (vitamin D2) 1,250 mcg (50,000 unit) capsule 50,000 unit PO WK Rx Instructions: MONDAYS spironolactone 25 mg tablet 12.5 mg PO DAILY Changed gabapentin 300 mg capsule 600 mg PO TID Qty: 0 0RF Discontinued oxycodone 5 mg tablet 5 mg PO Q6H PRN (Reason: pain) Qty: 10 0RF Discharge Orders: Discharge Order (Routine); Ordered 06/18/24 Ordered By: Alirio Malin Admission Data Admit Date/Time: 06/16/24 09:31 Attending Provider: Alirio Malin Admit Provider: Gabino Triplett Primary Care Provider: Joe Peng Other Providers: Gabino Triplett; Yvrose Melgar
--- NOTE | 2024-06-18 16:16 | Electrocardiogram Report ---
Test Reason : Blood Pressure : */* mmHG Vent. Rate : 63 BPM Atrial Rate : 63 BPM P-R Int : 206 ms QRS Dur : 68 ms QT Int : 448 ms P-R-T Axes : 98 3 51 degrees QTcB Int : 458 ms Normal sinus rhythm Low voltage QRS Diffuse Minor Nonspecific T wave abnormality Abnormal ECG When compared with ECG of 16-Mar-2024 05:52, No significant change Confirmed by Cullen Chanel ([id number]) on 06/18/2024 4:15:57 PM Referred By: REFERRED SELF Confirmed By: Cullen Chanel
[2024-06-19] MEDS ORDERED: NON-FORMULARY MEDICATION (Doxycycline Hyclate 100 mg tablet) PO SCH (21:00)
[2024-06-22] MEDS ORDERED: ERGOCALCIFEROL 1250 MCG (50,000 UNITS) CAP PO SCH (09:00)
== END 2024-06-18 14:24 | disposition home health service (06) | DRG 300 ==
LOC: ED 05:25 → SUATTDRO 09:31 → 3N 09:31

== ENCOUNTER 2024-07-11 00:05 | Inpatient (IN) ==
--- NOTE | 2024-07-11 00:27 | Emergency Department Note ---
Impression & Plan AMS (altered mental status), Anemia, Hypokalemia ED Provider Note NAME: JONATHAN YEN AGE: 69 SEX: F : 1955 ARRIVES VIA: Walk-In INFORMANT: Patient ED PROVIDER(S): Bryce Dow DO CHIEF COMPLAINT: Confusion HPI: Patient is a 69-year-old female who presents to the ER for confusion. This started about an hour prior to arrival. Patient denies any headache or change in vision. No chest pain or shortness of breath. No nausea, vomiting, or diarrhea. No dysuria, urgency, or frequency. Significant other present at bedside notes that she does not remember anything from earlier today. She did not had a work [employer]. She denies any weakness or numbness in the arms or legs. notes that she currently is oriented to person place or time. ADDITIONAL HISTORY OBTAINED: Per HPI Chronic Medical/Social Conditions Affecting Care: Per HPI PAST MEDICAL HISTORY:See Below PAST SURGICAL HISTORY:See Below FAMILY HISTORY:See Below SOCIAL HISTORY:See Below HOME MEDICATIONS:See Below ALLERGIES:See Below VITALS:See Below PHYSICAL EXAMINATION: GENERAL: Sitting up in bed, alert, well appearing, well nourished, no distress, non-toxic EYE EXAM: normal conjunctiva. PERRL and EOM's intact. OROPHARYNX: no exudate, no erythema, lips, buccal mucosa, and tongue normal and mucous membranes are moist NECK: supple, no nuchal rigidity, no adenopathy, non-tender LUNGS: Clear to auscultation. Normal chest wall mechanics HEART: no murmurs, S1 normal and S2 normal ABDOMEN: abdomen soft, non-tender, normo-active bowel sounds, no masses, no rebound or guarding. BACK: Back is symmetrical on inspection and there is no deformity, no midline tenderness, no CVA tenderness. SKIN: no rashes and no bruising UPPER EXTREMITIES: upper extremities are grossly normal. LOWER EXTREMITIES: No pitting edema. NEURO EXAM: Normal sensorium, cranial nerves II-XII intact, normal speech, no weakness of arms, no weakness of legs. No drift. Finger to nose intact. Gross sensation intact. MEDICAL DECISION MAKING: Patient is a 69-year-old female who presents to the ER for altered mental status brought in by as described above. IV was established and blood work was obtained. Upon arrival she was oriented to person place or time. She no focal deficit but cannot remember what happened earlier today where the day before. Labs show no significant leukocytosis. Mild anemia 11. INR unremarkable. BMP with mild hypokalemia 3.3. LFTs and bilirubin were unremarkable. Troponin was mildly elevated. UA was ordered but pending upon admission. CT angios of the head and neck were negative per radiology. Discussed case with the hospitalist for further evaluation management and treatment. Consults/Care Managements Discussions: Per MDM Triage Nursing notes reviewed. Limited review of prior medical records performed Vital Signs: reviewed and remarkable for no significant abnormalities Differential diagnosis: Differential diagnoses includes but is not limited to toxic, metabolic, infectious, traumatic, cardiac, neurologic, hematologic, psychiatric and inflammatory etiologies. ER treatment provided: See below Diagnostics interpreted by me include EKG and cardiac monitoring as listed below: -Cardiac Monitoring: An order was placed for continuous cardiac monitoring. The monitor shows a rate of 70 with sinus rhythm. -ECG: Sinus rhythm rate 72 Normal axis No PVCs QTc 451 -Laboratory studies:Interpreted by me as stated above in MDM and shown below. Imaging studies: Xrays: As interpreted by me: Portable AP upright 1 view of the chest shows no focal infiltrate CTs show: CT angios of the head and neck were negative per radiology Procedures: None Critical Care: None Past Med/Surg History Problem List (Updated 07/11/24 @ 03:29 by Bryce Dow DO) Hypokalemia (Acute) Anemia (Acute) AMS (altered mental status) (Acute) Advanced care planning/counseling discussion Palliative care by specialist Persistent wound pain Chronic leg pain (Acute) Pain of right lower extremity Leg wound, right (Acute) Chronic leg pain (Acute) Lower extremity edema Venous ulcer of right leg (Acute) Cellulitis (Acute) Pseudomonas infection (Acute) Lab test positive for detection of COVID-19 virus (Acute) Anemia (Acute) Leukemia cutis (Acute) Encounter for pre-operative examination Leukemia cutis (Chronic) Encounter for pre-operative examination Weight loss Diarrhea Unresponsiveness (Acute) Pancytopenia (Acute) Hypotension (Acute) AML (acute myeloblastic leukemia) (Acute) H/O colonoscopy (Chronic) "06/04/2014 diverticulosis, repeat 5 yrs" S/P anal fissurectomy (Chronic) Takotsubo cardiomyopathy (Chronic) Transaminitis Hypothyroidism (Chronic) Hyperbilirubinemia AML (acute myelogenous leukemia) (Chronic) Medical History Lymphedema Acute alteration in mental status S/P radiation therapy before bone marrow transplant 12-11-2016 History of diabetes mellitus HX STEROID INDUCED DIABETES, NOW RESOLVED Low blood pressure Sepsis due to Pseudomonas species with acute organ dysfunction and septic shock this happened 100 days after the transplant CMV (cytomegalovirus infection) HX ? PT NOT SURE Autoimmune hepatitis Nausea and vomiting after administration of anesthetic agent Hypothyroidism AML (acute myeloblastic leukemia) diagnosed - CURRENT CHEMOTHERAPY/PORT RIGHT CHEST TMJ disease HX SURGERY, RESOLVED PROBLEM Depression Anxiety Migraine HX Takotsubo cardiomyopathy reason for metoprolol--follows with Dr. 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 History of amputation of toe left big toe History of hemorrhoidectomy History of colonoscopy History of esophagogastroduodenoscopy (EGD) History of vascular access device right APORT History of mandibular surgery TMJ sx--plate in right side of jaw History of tooth extraction History of wisdom tooth extraction History of cardiac cath 2012 in [place]---no stents Family History Sister Family history of diabetes mellitus Mother , age 84 Head and neck cancer COPD (chronic obstructive pulmonary disease) Father , age 75 Esophageal cancer Sister Vertigo Hypertension Sister Hypothyroidism Brother Combined hyperlipidemia Brother Colorectal cancer Brother Gout Brother No problems noted. 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 Feels Safe at Home: Yes Childhood Exposure to Second-Hand Smoke: Yes Assistive Devices: Walker Allergies Allergies Allergy/AdvReac Type Severity Reaction Status Date / Time amoxicillin AdvReac Intermediate NAUSEA/VOMI Verified 07/07/24 15:31 TING Penicillins AdvReac Intermediate NAUSEA/VOMITING/"FEELS Verified 07/07/24 15:31 NERVOUS" Home Meds Home Medications Medication Instructions Recorded Confirmed acetaminophen 500 mg tablet 500 mg PO Q6H PRN Pain 08/22/23 07/11/24 (Tylenol Extra Strength) bupropion HCl 150 mg 24 hr tablet, 150 mg PO QAM 08/22/23 07/11/24 extended release bupropion HCl 300 mg 24 hr tablet, 300 mg PO QAM 08/22/23 07/11/24 extended release buspirone 10 mg tablet See Rx Instructions .Route .COMPLEX 08/22/23 07/11/24 calcium 1,000 mg (as 1 tab PO [facility] 08/22/23 07/11/24 carbonate)-vitamin D3 20 mcg (800 unit) tablet cyanocobalamin (vitamin B-12) 1,000 mcg PO QAM 08/22/23 07/11/24 1,000 mcg tablet (Vitamin B-12) levothyroxine 150 mcg tablet 150 mcg PO DAILYBB 08/22/23 07/11/24 lorazepam 0.5 mg tablet 0.5 mg PO DAILY PRN Anxiety 08/22/23 07/11/24 magnesium oxide 800 mg PO BID 08/22/23 07/11/24 metoprolol succinate 25 mg 12.5 mg PO QAM 08/22/23 07/11/24 tablet,extended release 24 hr omeprazole 20 mg capsule,delayed 20 mg PO QAM 08/22/23 07/11/24 release ondansetron 8 mg disintegrating 8 mg PO Q8H PRN Nausea And Vomiting 08/22/23 07/11/24 tablet potassium chloride 20 mEq 20 meq PO DAILY 08/22/23 07/11/24 tablet,extended release prochlorperazine maleate 10 mg 10 mg PO Q8H PRN Nausea 08/22/23 07/11/24 tablet (Compazine) ergocalciferol (vitamin D2) 1,250 50,000 unit PO WK 12/25/23 07/11/24 mcg (50,000 unit) capsule fluoride (sodium) 1.1 % dental 1 applic dental HS 12/25/23 07/11/24 paste (Sodium Fluoride 5000 Dry Mouth) furosemide 40 mg tablet (Lasix) 40 mg PO QAM 12/25/23 07/11/24 spironolactone 25 mg tablet 12.5 mg PO QAM PRN swelling 03/14/24 07/11/24 apixaban 5 mg tablet (Eliquis) 5 mg PO BID 04/16/24 07/11/24 Previous Rx's Medication Instructions Recorded gabapentin 300 mg capsule 600 mg (2 x 300 mg) PO TID #0 caps 06/18/24 oxycodone-acetaminophen 7.5 mg-325 1 tab PO Q6H PRN pain 1 month #120 06/22/24 mg tablet (Endocet) tabs Results & Data (ED) Vital Signs Vital Signs - 24 hr 07/11/24 00:06 07/11/24 00:06 07/11/24 00:12 Temperature 36.5 C Temperature Source Temporal Artery Scan Pulse Rate 79 Pulse Rate [Right Finger] 73 Respiratory Rate 16 18 Respiratory Effort / Characteristics Non-Labored Non-Labored Spontaneous Respiratory Depth Normal Normal Respiratory Pattern Regular Regular Blood Pressure 102/71 Blood Pressure [Right Arm] 96/56 L Blood Pressure Mean 81 Blood Pressure Mean [Right Arm] 69 Blood Pressure Position Sitting Blood Pressure Position [Right Arm] Lying Pulse Oximetry 97 100 Oxygen Delivery Method Room Air Room Air Room Air Sepsis Recent Fever Within 48 Hours No Sepsis New/Unexplained Change in Mental Status N/A Sepsis Action Taken by Nursing No Action Required 07/11/24 02:06 Temperature Temperature Source Pulse Rate Pulse Rate [Right Finger] 71 Respiratory Rate 17 Respiratory Effort / Characteristics Non-Labored Respiratory Depth Normal Respiratory Pattern Regular Blood Pressure Blood Pressure [Right Arm] Blood Pressure Mean Blood Pressure Mean [Right Arm] Blood Pressure Position Blood Pressure Position [Right Arm] Pulse Oximetry 92 Oxygen Delivery Method Room Air Sepsis Recent Fever Within 48 Hours Sepsis New/Unexplained Change in Mental Status Sepsis Action Taken by Nursing Laboratory Data 07/11/24 01:00 07/11/24 01:00 Lab Results 07/11/24 07/11/24 07/11/24 Range/Units 01:00 02:32 Unknown WBC 7.70 (4.8-10.8) K/ul RBC 2.91 L (4.20-5.40) M/uL Hgb 11.0 L (12.0-16.0) g/dl Hct 33.2 L (37.0-47.0) % MCV 114.1 H (80.0-100.0) fL MCH 37.8 H (25.0-34.0) pg MCHC 33.1 (32.0-36.0) g/dL RDW Std Deviation 54.8 H (36.4-46.3) fL RDW Coeff of [place] 13.0 (11.5-14.5) % Plt Count 275 (130-400) K/uL MPV 9.4 (9.4-12.4) fL Immature Gran % (Auto) 0.9 % Neut % (Auto) 65.6 % Lymph % (Auto) 17.7 % [place] % (Auto) 11.0 % Eos % (Auto) 4.3 % Baso % (Auto) 0.5 % Neut # (Auto) 5.05 (1.40-6.50) K/uL Lymph # (Auto) 1.36 (1.20-3.40) K/uL [place] # (Auto) 0.85 H (0.11-0.59) K/uL Eos # (Auto) 0.33 (0.00-0.50) K/uL Baso # (Auto) 0.04 (0.00-0.20) K/uL Immature Gran # (Auto) 0.07 (0.01-0.20) K/uL Polychromasia 1+ Macrocytosis Present PT Cancelled 10.9 INR Cancelled 1.0 APTT Cancelled 26 PTT Ratio Cancelled 1.0 Sodium 143 (136-145) mmol/L Potassium 3.3 L (3.5-5.1) mmol/L Chloride 107 (98-107) mmol/L Carbon Dioxide 32 (21-32) mmol/L Anion Gap 4 (3-11) BUN 13 (6-23) mg/dl Creatinine 0.80 (0.6-1.2) mg/dl Est Cr Clr Drug Dosing 54.0 ml/min eGFR 80.21 BUN/Creatinine Ratio 16.3 (10-20) Glucose 101 H (70-99(Fasting)) mg/dl Calcium 8.3 L (8.6-10.3) mg/dl Magnesium 1.5 L (1.7-2.4) mg/dl Total Bilirubin 0.4 (0.2-1.0) mg/dl AST 34 (13-39) U/L ALT 26 (7-52) U/L Alkaline Phosphatase 367 H (34-104) U/L Troponin I High Sens 16.2 H (0-14) pg/ml Total Protein 5.0 L (6.0-8.3) gm/dl Albumin 2.7 L (3.4-5.0) gm/dl Globulin 2.3 L (2.5-4.0) gm/dl Albumin/Globulin Ratio 1.2 (0.9-2) Urine Color Yellow Urine Appearance Cloudy A (Clear) Urine pH 5.5 (4.5-7.5) Ur Specific [place] > 1.045 H (1.000-1.030) Urine Protein Negative (Negative) Urine Glucose (UA) Negative (Negative) Urine Ketones Negative (Negative) Urine Blood Negative (Negative) Urine Nitrite Negative (Negative) Urine Bilirubin Negative (Negative) Urine Urobilinogen Negative (Negative) Ur Leukocyte Esterase Negative (Negative) Urine WBC (Auto) 0-5 (0-5) /hpf Urine RBC (Auto) 0-2 (0-2) /hpf U Hyaline Cast (Auto) 0-2 (0-2) /lpf U Epithel Cells (Auto) >20 H (0-2) /hpf Urine Bacteria (Auto) 3+ H (None Seen) Administered Medications Discontinued Medications Ioversol (Optiray 320 125ml) 117 ml IV ONCE ONE Stop: 07/11/24 01:40 Last Admin: 07/11/24 01:40 Dose: 117 ml Documented By: [facility] Imaging Data Radiologist's Impression: Chest X-Ray 07/11/24 00:24 EXAM: XR chest 1V portable CLINICAL HISTORY: NEUTO DEFICIT, ACUTE STROKE SUSPECTED WTW TECHNIQUE: X-ray examination of the chest AP view portable. COMPARISON: 08/21/2023. FINDINGS: No confluent consolidation or collapse. Mild pulmonary interstitial thickening seen. Port-a-cath seen well-placed with its tip at atriocaval junction. Normal cardiac size seen. No pleural effusion seen. No pneumothorax seen. Intact bony thorax seen. IMPRESSION: 1. No confluent consolidation or collapse. 2. Mild pulmonary interstitial thickening seen. 3. Port-a-cath seen well-placed with its tip at atriocaval junction. 4. No interval changes seen compared to previous study. Electronically signed by Yury Velez 07-11-2024 01:[address] 07/11/24 00:24 EXAM: CT head/brain wo con CLINICAL HISTORY: neuro deficit, acute stroke suspected TECHNIQUE: Axial non-contrast CT scan of the brain was performed from the skull base to the high parietal region. One of the following dose reduction techniques were utilized for this exam: Automated exposure control, adjustment of the mA and/or kV according to patient size, use of iterative reconstruction. COMPARISON: previous study dated 03/17/2024. FINDINGS: Brain Parenchyma: Age related atrophic changes seen as widening of both intra- and extra-axial subarachnoid spaces. Periventricular and deep white matter hypodensity consistent with old microvascular-related changes. No evidence of acute hemorrhage, or mass effect. Ventricular System: No evidence of hydrocephalus or ventricular enlargement. Subarachnoid Spaces: No evidence of subarachnoid hemorrhage or extra-axial fluid collections. Cerebellum and Brainstem: Normal size and signal. No masses, lesions, or areas of abnormal signal. Orbits: Normal appearance of the globes, optic nerves, and extraocular muscles. No evidence of orbital masses or abnormal signal. Sinuses: Clear paranasal sinuses. No evidence of sinusitis or mucosal thickening. Mastoid Air Cells: Clear mastoid air cells. No evidence of mastoiditis. Skull and Meninges: Normal skull morphology. IMPRESSION: 1. Age-related atrophic changes and old microvascular-related changes. 2. No interval changes. 3. No evidence of acute hemorrhage, or mass effect. 4. Early changes of acute ischemic infarction could not be evident on CT scan, for MRI study with diffusion sequence if clinically needed. [facility] ER was called at [phone] at 01:34 AM STAFF INTERNIST OFFICE BASED ONLY, 07/11/2024, and KARLEE Vargas was informed regarding negative stroke results. Electronically signed by Yury Velez 07-11-2024 02:37 AM Head CTA 07/11/24 00:24 EXAM: CT angio head w con CLINICAL HISTORY: neuro deficit, acute stroke suspected 117 cc opti 320 TECHNIQUE: CT angiography of the head was performed following the intravenous administration of 117 cc opti 320 contrast material. Contiguous axial images were obtained from the base of the skull to the vertex. Coronal and sagittal reformatted images were also reviewed. One of these 3D techniques was utilized: Maximum Intensity Pixel (MIP), 3D Reconstructed Images, Volume Rendered Images, Surface Shaded Rendering. One of the following dose reduction techniques was utilized for this exam. Automated exposure control, adjustment of the mA and/or kV according to patient size, and use of iterative reconstruction. COMPARISON: CT head/brain 03/17/2024 FINDINGS: Intracranial Arteries: Minimal atherosclerotic changes seen in the cavernous portion of left internal carotid artery, with no significant stenosis. The intracranial arteries, including the anterior cerebral arteries, middle cerebral arteries, posterior cerebral arteries, basilar artery, and vertebral arteries, are all patent without evidence of significant stenosis, aneurysm, or dissection. There is no evidence of vascular malformations. [place]: The [place] is intact with no anatomical variations or abnormalities noted. All segments are well-visualized and normal in appearance. Venous System: The visualized portions of the venous system, including the dural venous sinuses, are patent with no evidence of thrombosis. Brain Parenchyma: Unchanged chronic microvascular ischemic changes. Unchanged age-related brain atrophy.The brain parenchyma shows no evidence of acute infarct, hemorrhage, or mass effect. Bones: The bony structures of the skull are intact without evidence of fracture or destructive lesions. Soft Tissues: The visualized soft tissues of the head are unremarkable. Additional Findings: No other significant findings are noted. IMPRESSION: 1. No evidence of significant arterial stenosis. 2. Chronic microvascular ischemic changes. Stable. 3. Senile brain atrophy. Stable. 4. No significant interval changes compared to the prior study, dated on 03/17/2024. [facility] was called at [phone] at 01:34 AM STAFF INTERNIST OFFICE BASED ONLY, 07/11/2024, and KARLEE Vargas was informed regarding negative stroke results. Electronically signed by Yury Velez 07-11-2024 02:52 AM Neck CTA 07/11/24 00:24 EXAM: CT angio neck with con CLINICAL HISTORY: neuro deficit, acute stroke suspected 117 cc opti 320 TECHNIQUE: CT angiography of the head and neck was performed following the intravenous administration of 117 cc optiray 320 of iodinated contrast material. Axial images were obtained from the aortic arch to the vertex. Coronal and sagittal reformatted images were also reviewed. One of the following dose reduction techniques was utilized for this exam. Automated exposure control, adjustment of the mA and/or kV according to patient size, and use of iterative reconstruction. One of these 3D techniques was utilized: Maximum Intensity Pixel (MIP), 3D Reconstructed Images, Volume Rendered Images, Surface Shaded Rendering. COMPARISON: No previous studies are available for comparison. FINDINGS: Carotid Arteries: Tiny calcified atherosclerotic plaques at the carotid bulb bilaterally, with no evidence of significant stenosis. Minimal atherosclerotic changes seen in the cervical portion of the left internal carotid artery. No evidence of significant stenosis. The common, internal, and external carotid arteries are patent bilaterally with no evidence of significant stenosis, aneurysm, or dissection. Vertebral Arteries: The vertebral arteries are patent bilaterally with no evidence of significant stenosis, aneurysm, or dissection. Lymph Nodes: There is no evidence of significant lymphadenopathy in the neck. Soft Tissues: The soft tissues of the neck are unremarkable, with no evidence of masses or abnormal collections. Additional Findings: Cervical spondylosis. Visualized upper chest: Port-a-cath seen in the right aspect of the chest wall. Multiple bilateral emphysematous bullae. An opacity seen in the lateral aspect of the apical region of the right lung likely represent an area of fibrotic changes. IMPRESSION: Tiny calcified atherosclerotic plaque at the carotid bulb bilaterally. No evidence of significant stenosis. [facility] ER was called at [phone] at 01:34 AM STAFF INTERNIST OFFICE BASED ONLY, 07/11/2024, and KARLEE Vargas was informed regarding negative stroke results. Electronically signed by Yury Velez 07-11-2024 02:41 AM Discharge Plan Visit Data Chief Complaint: Confusion Stated Complaint: CONFUSION,LOSS OF MEMORY ED Provider: Bryce Dow Discharge Problem: AMS (altered mental status), Anemia, Hypokalemia Forms Stand Alone Forms: My [facility] Prescriptions Prescriptions: No Action Eliquis 5 mg tablet 5 mg PO BID oxycodone-acetaminophen [Endocet] 7.5-325 mg tablet 1 tab PO Q6H PRN (Reason: pain) 30 Days Qty: 120 0RF cyanocobalamin (vitamin B-12) [Vitamin B-12] 1,000 mcg tablet 1,000 mcg PO QAM ondansetron 8 mg tablet,disintegrating 8 mg PO Q8H PRN (Reason: Nausea And Vomiting) levothyroxine 150 mcg tablet 150 mcg PO DAILYBB omeprazole 20 mg capsule,delayed release(DR/EC) 20 mg PO QAM metoprolol succinate 25 mg tablet extended release 24 hr 12.5 mg PO QAM potassium chloride 20 mEq Tablet Extended Release 20 meq PO DAILY calcium carbonate-vitamin D3 1,000 mg-20 mcg (800 unit) Tablet 1 tab PO QAM prochlorperazine maleate [Compazine] 10 mg Tablet 10 mg PO Q8H PRN (Reason: Nausea) acetaminophen [Tylenol Extra Strength] 500 mg Tablet 500 mg PO Q6H PRN (Reason: Pain) lorazepam 0.5 mg Tablet 0.5 mg PO DAILY PRN (Reason: Anxiety) buspirone 10 mg tablet See Rx Instructions .ROUTE .COMPLEX Rx Instructions: TAKES 20 MG QAM & QHS, THEN 10 MG Q AFTERNOON. bupropion HCl 300 mg tablet extended release 24 hr 300 mg PO QAM Rx Instructions: TOTAL DOSE 450 MG--TAKES WITH 150 MG TAB. bupropion HCl 150 mg tablet extended release 24 hr 150 mg PO QAM Rx Instructions: TOTAL DOSE 450 MG--TAKES WITH 300 MG TAB. magnesium oxide 400 mg magnesium Tablet 800 mg PO BID furosemide [Lasix] 40 mg Tablet 40 mg PO QAM fluoride (sodium) [Sodium Fluoride 5000 Dry Mouth] 1.1 % Paste 1 applic DENTAL HS ergocalciferol (vitamin D2) 1,250 mcg (50,000 unit) capsule 50,000 unit PO WK Rx Instructions: MONDAYS spironolactone 25 mg tablet 12.5 mg PO QAM PRN (Reason: swelling) gabapentin 300 mg capsule 600 mg PO TID Qty: 0 0RF Referrals Referrals: Joe Peng, [Primary Care Provider] - Discharge Problem: AMS (altered mental status) Qualifiers: Altered mental status type: unspecified Qualified Code(s): R41.82 - Altered mental status, unspecified Anemia Qualifiers: Anemia type: unspecified type Qualified Code(s): D64.9 - Anemia, unspecified
[2024-07-11 01:31] LABS: Basophils # (auto) 0.04 K/uL (0.00-0.20); Basophils % (auto) 0.5 %; Eosinophils # (auto) 0.33 K/uL (0.00-0.50); Eosinophils % (auto) 4.3 %; Hematocrit (blood only) 33.2 % (37.0-47.0); Immature Granulocytes # (auto) 0.07 K/uL (0.01-0.20); Immature Granulocytes % (auto) 0.9 %; Lymphocytes # (auto) 1.36 K/uL (1.20-3.40); Lymphocytes % (auto) 17.7 %; Mean Corpuscular Hemoglobin 37.8 pg (25.0-34.0); Mean Corpuscular Hgb Conc 33.1 g/dL (32.0-36.0); Mean Corpuscular Volume 114.1 fL (80.0-100.0); Mean Platelet Volume 9.4 fL (9.4-12.4); Monocytes # (auto) 0.85 K/uL (0.11-0.59); Neutrophils # (auto) 5.05 K/uL (1.40-6.50); Neutrophils % (auto) 65.6 %; Platelet Count 275 K/uL (130-400); RDW Standard Deviation 54.8 fL (36.4-46.3); Red Blood Count 2.91 M/uL (4.20-5.40)
[2024-07-11] MEDS: OPTIRAY 320 125ml IV ONE (01:40)
--- NOTE | 2024-07-11 01:43 | XRay Report ---
EXAM: XR chest 1V portable CLINICAL HISTORY: NEUTO DEFICIT, ACUTE STROKE SUSPECTED WTW TECHNIQUE: X-ray examination of the chest AP view portable. COMPARISON: 08/21/2023. FINDINGS: No confluent consolidation or collapse. Mild pulmonary interstitial thickening seen. Port-a-cath seen well-placed with its tip at atriocaval junction. Normal cardiac size seen. No pleural effusion seen. No pneumothorax seen. Intact bony thorax seen. IMPRESSION: 1. No confluent consolidation or collapse. 2. Mild pulmonary interstitial thickening seen. 3. Port-a-cath seen well-placed with its tip at atriocaval junction. 4. No interval changes seen compared to previous study. Electronically signed by Yury Velez 07-11-2024 01:43 AM
[2024-07-11 01:47] LABS: Albumin Globulin Ratio 1.2 (0.9-2); Albumin Level 2.7 gm/dl (3.4-5.0); BUN Creatinine Ratio 16.3 (10-20); Bilirubin,Total 0.4 mg/dl (0.2-1.0); Calcium 8.3 mg/dl (8.6-10.3); Globulin 2.3 gm/dl (2.5-4.0); Magnesium 1.5 mg/dl (1.7-2.4); Potassium 3.3 mmol/L (3.5-5.1)
[2024-07-11 01:52] LABS: Macrocytosis Present; Polychromasia 1+
[2024-07-11 01:54] LABS: Troponin I High Sensitivity 16.2 pg/ml (0-14)
--- NOTE | 2024-07-11 02:37 | CT Scan Report ---
EXAM: CT head/brain wo con CLINICAL HISTORY: neuro deficit, acute stroke suspected TECHNIQUE: Axial non-contrast CT scan of the brain was performed from the skull base to the high parietal region. One of the following dose reduction techniques were utilized for this exam: Automated exposure control, adjustment of the mA and/or kV according to patient size, use of iterative reconstruction. COMPARISON: previous study dated 03/17/2024. FINDINGS: Brain Parenchyma: Age related atrophic changes seen as widening of both intra- and extra-axial subarachnoid spaces. Periventricular and deep white matter hypodensity consistent with old microvascular-related changes. No evidence of acute hemorrhage, or mass effect. Ventricular System: No evidence of hydrocephalus or ventricular enlargement. Subarachnoid Spaces: No evidence of subarachnoid hemorrhage or extra-axial fluid collections. Cerebellum and Brainstem: Normal size and signal. No masses, lesions, or areas of abnormal signal. Orbits: Normal appearance of the globes, optic nerves, and extraocular muscles. No evidence of orbital masses or abnormal signal. Sinuses: Clear paranasal sinuses. No evidence of sinusitis or mucosal thickening. Mastoid Air Cells: Clear mastoid air cells. No evidence of mastoiditis. Skull and Meninges: Normal skull morphology. IMPRESSION: 1. Age-related atrophic changes and old microvascular-related changes. 2. No interval changes. 3. No evidence of acute hemorrhage, or mass effect. 4. Early changes of acute ischemic infarction could not be evident on CT scan, for MRI study with diffusion sequence if clinically needed. [facility] was called at [phone] at 01:34 AM COMPUTERIZED MILL MILL RECORDER, 07/11/2024, and KARLEE Vargas was informed regarding negative stroke results. Electronically signed by Yury Velez 07-11-2024 02:37 AM
--- NOTE | 2024-07-11 02:42 | CT Scan Report ---
EXAM: CT angio neck with con CLINICAL HISTORY: neuro deficit, acute stroke suspected 117 cc opti 320 TECHNIQUE: CT angiography of the head and neck was performed following the intravenous administration of 117 cc optiray 320 of iodinated contrast material. Axial images were obtained from the aortic arch to the vertex. Coronal and sagittal reformatted images were also reviewed. One of the following dose reduction techniques was utilized for this exam. Automated exposure control, adjustment of the mA and/or kV according to patient size, and use of iterative reconstruction. One of these 3D techniques was utilized: Maximum Intensity Pixel (MIP), 3D Reconstructed Images, Volume Rendered Images, Surface Shaded Rendering. COMPARISON: No previous studies are available for comparison. FINDINGS: Carotid Arteries: Tiny calcified atherosclerotic plaques at the carotid bulb bilaterally, with no evidence of significant stenosis. Minimal atherosclerotic changes seen in the cervical portion of the left internal carotid artery. No evidence of significant stenosis. The common, internal, and external carotid arteries are patent bilaterally with no evidence of significant stenosis, aneurysm, or dissection. Vertebral Arteries: The vertebral arteries are patent bilaterally with no evidence of significant stenosis, aneurysm, or dissection. Lymph Nodes: There is no evidence of significant lymphadenopathy in the neck. Soft Tissues: The soft tissues of the neck are unremarkable, with no evidence of masses or abnormal collections. Additional Findings: Cervical spondylosis. Visualized upper chest: Port-a-cath seen in the right aspect of the chest wall. Multiple bilateral emphysematous bullae. An opacity seen in the lateral aspect of the apical region of the right lung likely represent an area of fibrotic changes. IMPRESSION: Tiny calcified atherosclerotic plaque at the carotid bulb bilaterally. No evidence of significant stenosis. 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 Electronically signed by Yury Velez 07-11-2024 02:41 AM
--- NOTE | 2024-07-11 02:53 | CT Scan Report ---
EXAM: CT angio head w con CLINICAL HISTORY: neuro deficit, acute stroke suspected 117 cc opti 320 TECHNIQUE: CT angiography of the head was performed following the intravenous administration of 117 cc opti 320 contrast material. Contiguous axial images were obtained from the base of the skull to the vertex. Coronal and sagittal reformatted images were also reviewed. One of these 3D techniques was utilized: Maximum Intensity Pixel (MIP), 3D Reconstructed Images, Volume Rendered Images, Surface Shaded Rendering. One of the following dose reduction techniques was utilized for this exam. Automated exposure control, adjustment of the mA and/or kV according to patient size, and use of iterative reconstruction. COMPARISON: CT head/brain 03/17/2024 FINDINGS: Intracranial Arteries: Minimal atherosclerotic changes seen in the cavernous portion of left internal carotid artery, with no significant stenosis. The intracranial arteries, including the anterior cerebral arteries, middle cerebral arteries, posterior cerebral arteries, basilar artery, and vertebral arteries, are all patent without evidence of significant stenosis, aneurysm, or dissection. There is no evidence of vascular malformations. [place]: The [place] is intact with no anatomical variations or abnormalities noted. All segments are well-visualized and normal in appearance. Venous System: The visualized portions of the venous system, including the dural venous sinuses, are patent with no evidence of thrombosis. Brain Parenchyma: Unchanged chronic microvascular ischemic changes. Unchanged age-related brain atrophy.The brain parenchyma shows no evidence of acute infarct, hemorrhage, or mass effect. Bones: The bony structures of the skull are intact without evidence of fracture or destructive lesions. Soft Tissues: The visualized soft tissues of the head are unremarkable. Additional Findings: No other significant findings are noted. IMPRESSION: 1. No evidence of significant arterial stenosis. 2. Chronic microvascular ischemic changes. Stable. 3. Senile brain atrophy. Stable. 4. No significant interval changes compared to the prior study, dated on 03/17/2024. [facility] was called at [phone] at 01:34 AM SALES PROMOTION DIRECTOR, 07/11/2024, and KARLEE Vargas was informed regarding negative stroke results. Electronically signed by Yury Velez 07-11-2024 02:52 AM
[2024-07-11 03:21] LABS: Partial Thromboplastin Time 26 Seconds (21-31); Prothrombin Time 10.9 Seconds (9.0-12.0)
[2024-07-11 03:46] LABS: Appearance Urine Cloudy (Clear); Bacteria Urine Automated 3+ (None Seen); Bilirubin Urine Negative (Negative); Blood Urine Negative (Negative); Cast Urine Automated 0-2 /lpf (0-2); Color Urine Yellow; Epithelial Cell Urine Auto >20 /hpf (0-2); Glucose Urine UA Negative (Negative); Ketones Urine Negative (Negative); Leukocyte Esterase Urine Negative (Negative); Nitrite Urine Negative (Negative); Protein Urine Negative (Negative); RBC Urine Automated 0-2 /hpf (0-2); Specific Gravity Urine > 1.045 (1.000-1.030); Urobilinogen Urine Negative (Negative); WBC Urine Automated 0-5 /hpf (0-5); pH Urine 5.5 (4.5-7.5)
--- NOTE | 2024-07-11 06:52 | History & Physical Report ---
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 As per they went outside for dinner and when he came back patient was trying to open her Jennifer when she seemed confused. She does not know that it was Kindel. When asked questions she does not know that they went out to eat. She could not recollect that days events. Similar episode happened about a week on Saturday thought to be brain fog. At the time it lasted for couple of hours. They thought it could be from a recent increase in the pain medications. After that saw palliative care and pain medication reduced. But this time when it happened again the did not want any to take any chance and brought her brought to the hospital. Initial workup with CT head and CTA head and neck unremarkable. Patient currently resting comfortably. Hemodynamics okay. Denies any headache. Denies any blurred visions or double vision. No runny nose or sore throat , no cough. Appetite is down. Denies any chest pain or shortness of breath. No nausea. No abdominal pain. Normal bowel and bladder bladder movements. She is on chemo for leukemia cutis but it was held because of the right lower extremity wound. Last chemo was in May. Patient still currently could not remember why she is in the hospital. Patient recently was seen in the hospital from June 16 to June 18 for cellulitis and acute on chronic pain of right lower extremity venous stasis ulcers and her gabapentin was increased to 600 mg 3 times daily and oxycodone was changed to Percocet and was treated with Cipro and Doxy. Patient follows with wound care. Altered mental status Transient global amnesia Rule out stroke CT head, CTA head and neck unremarkable Will check MRI EEG Will give a dose of thiamine Neurochecks Will do stroke protocol Monitor on telemetry Neuroconsult for further recommendations Diet-controlled diabetes HbA1c 4.4 when checked in March 2024 Refractory AML and leukemia cutis Currently chemotherapy on hold for right lower extremity wound Follows with heme-onc Right lower extremity venous stasis ulcer Follows wound care Wound care consult while in the hospital Hypomagnesia Replace Continue home supplement Elevated alkaline phosphatase Seems chronic Will monitor Mildly elevated troponin Mostly demand ischemia Will follow serial troponins Possible UTI Empiric cefepime Will follow cultures Chronic DVT and superficial thrombus On Eliquis History of mitral valve prolapse History of Takotsubo cardiomyopathy Recent echo in november 2023 normal EF Chronic bilateral lower extremity edema/lymphedema On Lasix and Aldactone Will monitor Hypothyroidism on Synthyroid Depression General Anxiety disorder Continue home meds DVT prophylaxis On Eliquis Disposition Telemetry Full code History of Present Illness Chief Complaint: Strokelike symptoms Primary Care Provider: Joe Peng DO 69-year-old female with past medical history significant for diet-controlled diabetes, hypothyroidism, history of hypokalemia and hypomagnesia, history of Takotsubo cardiomyopathy, history of mitral valve prolapse, history of autoimmune hepatitis, history of GERD, chronic diarrhea, amputation of the left great toe history of syncope, history of AML, AML relapse , history of leukemia cutis, chemotherapy induced neutropenia, history of ITP, 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 As per they went outside for dinner and when he came back patient was trying to open her Jennifer when she seemed confused. She does not know that it was Kindel. When asked questions she does not know that they went out to eat. She could not recollect that days events. Similar episode happened about a week on Saturday thought to be brain fog. At the time it lasted for couple of hours. They thought it could be from a recent increase in the pain medications. After that saw palliative care and pain medication reduced. But this time when it happened again the did not want any to take any chance and brought her brought to the hospital. Initial workup with CT head and CTA head and neck unremarkable. Patient currently resting comfortably. Hemodynamics okay. Denies any headache. Denies any blurred visions or double vision. No runny nose or sore throat , no cough. Appetite is down. Denies any chest pain or shortness of breath. No nausea. No abdominal pain. Normal bowel and bladder bladder movements. She is on chemo for leukemia cutis but it was held because of the right lower extremitiy wound. Last chemo was in May. Patient still currently could not remember why she is in the hospital. Patient recently was seen in the hospital from June 16 to June 18 for cellulitis and acute on chronic pain of right lower extremity venous stasis ulcers and her gabapentin was increased to 600 mg 3 times daily and oxycodone was changed to Percocet and was treated with Cipro and Doxy. Patient follows with wound care. Past medical history. As mentioned above Past surgical history. Amputation of the left toe. Bone marrow aspiration. Colonoscopy. EGD. Injection of lumbosacral spine. Removal of [place] catheter. TMJ arthroscopy. Social history. . No smoking. Alcohol rarely. No drug use. Family history. Maternal cousin had breast cancer in 30s. Maternal grandmother had breast cancer. Mother had head and neck cancer.COPD. Carotid stenosis. Stroke. Father had esophageal cancer. Heart attack. Hypertension. Sister has thyroid disorder. Allergies Allergy/AdvReac Type Severity Reaction Status Date / Time amoxicillin AdvReac Intermediate NAUSEA/VOMI Verified 07/07/24 15:31 TING Penicillins AdvReac Intermediate NAUSEA/VOMITING/"FEELS Verified 07/07/24 15:31 NERVOUS" Home Medications Medication Instructions Recorded Confirmed Type acetaminophen 500 mg tablet 500 mg PO Q6H PRN Pain 08/22/23 07/11/24 History (Tylenol Extra Strength) bupropion HCl 150 mg 24 hr tablet, 150 mg PO QAM 08/22/23 07/11/24 History extended release bupropion HCl 300 mg 24 hr tablet, 300 mg PO QAM 08/22/23 07/11/24 History extended release buspirone 10 mg tablet See Rx Instructions .Route .COMPLEX 08/22/23 07/11/24 History calcium 1,000 mg (as 1 tab PO QAM 08/22/23 07/11/24 History carbonate)-vitamin D3 20 mcg (800 unit) tablet cyanocobalamin (vitamin B-12) 1,000 mcg PO QAM 08/22/23 07/11/24 History 1,000 mcg tablet (Vitamin B-12) levothyroxine 150 mcg tablet 150 mcg PO DAILYBB 08/22/23 07/11/24 History lorazepam 0.5 mg tablet 0.5 mg PO DAILY PRN Anxiety 08/22/23 07/11/24 History magnesium oxide 800 mg PO BID 08/22/23 07/11/24 History metoprolol succinate 25 mg 12.5 mg PO QAM 08/22/23 07/11/24 History tablet,extended release 24 hr omeprazole 20 mg capsule,delayed 20 mg PO QAM 08/22/23 07/11/24 History release ondansetron 8 mg disintegrating 8 mg PO Q8H PRN Nausea And Vomiting 08/22/23 07/11/24 History tablet potassium chloride 20 mEq 20 meq PO DAILY 08/22/23 07/11/24 History tablet,extended release prochlorperazine maleate 10 mg 10 mg PO Q8H PRN Nausea 08/22/23 07/11/24 History tablet (Compazine) ergocalciferol (vitamin D2) 1,250 50,000 unit PO WK 12/25/23 07/11/24 History mcg (50,000 unit) capsule fluoride (sodium) 1.1 % dental 1 applic dental HS 12/25/23 07/11/24 History paste (Sodium Fluoride 5000 Dry Mouth) furosemide 40 mg tablet (Lasix) 40 mg PO QAM 12/25/23 07/11/24 History spironolactone 25 mg tablet 12.5 mg PO QAM PRN swelling 03/14/24 07/11/24 History apixaban 5 mg tablet (Eliquis) 5 mg PO BID 04/16/24 07/11/24 History gabapentin 300 mg capsule 600 mg (2 x 300 mg) PO TID #0 caps 06/18/24 07/11/24 Rx oxycodone-acetaminophen 7.5 mg-325 1 tab PO Q6H PRN pain 1 month #120 06/22/24 07/11/24 Rx mg tablet (Endocet) tabs Past Med/Surg History Problem List (Updated 07/11/24 @ 03:29 by Bryce Dow DO) Hypokalemia (Acute) Anemia (Acute) AMS (altered mental status) (Acute) Advanced care planning/counseling discussion Palliative care by specialist Persistent wound pain Chronic leg pain (Acute) Pain of right lower extremity Leg wound, right (Acute) Chronic leg pain (Acute) Lower extremity edema Venous ulcer of right leg (Acute) Cellulitis (Acute) Pseudomonas infection (Acute) Lab test positive for detection of COVID-19 virus (Acute) Anemia (Acute) Leukemia cutis (Acute) Encounter for pre-operative examination Leukemia cutis (Chronic) Encounter for pre-operative examination Weight loss Diarrhea Unresponsiveness (Acute) Pancytopenia (Acute) Hypotension (Acute) AML (acute myeloblastic leukemia) (Acute) H/O colonoscopy (Chronic) "06/04/2014 diverticulosis, repeat 5 yrs" S/P anal fissurectomy (Chronic) Takotsubo cardiomyopathy (Chronic) Transaminitis Hypothyroidism (Chronic) Hyperbilirubinemia AML (acute myelogenous leukemia) (Chronic) Medical History Lymphedema Acute alteration in mental status S/P radiation therapy before bone marrow transplant 12-11-2016 History of diabetes mellitus HX STEROID INDUCED DIABETES, NOW RESOLVED Low blood pressure Sepsis due to Pseudomonas species with acute organ dysfunction and septic shock this happened 100 days after the transplant CMV (cytomegalovirus infection) HX ? PT NOT SURE Autoimmune hepatitis Nausea and vomiting after administration of anesthetic agent Hypothyroidism AML (acute myeloblastic leukemia) diagnosed - CURRENT CHEMOTHERAPY/PORT RIGHT CHEST TMJ disease HX SURGERY, RESOLVED PROBLEM Depression Anxiety Migraine HX Takotsubo cardiomyopathy reason for metoprolol--follows with Dr. 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 History of amputation of toe left big toe History of hemorrhoidectomy History of colonoscopy History of esophagogastroduodenoscopy (EGD) History of vascular access device right APORT History of mandibular surgery TMJ sx--plate in right side of jaw History of tooth extraction History of wisdom tooth extraction History of cardiac cath 2012 in [place]---no stents Family History Sister Family history of diabetes mellitus Mother , age 84 Head and neck cancer COPD (chronic obstructive pulmonary disease) Father , age 75 Esophageal cancer Sister Vertigo Hypertension Sister Hypothyroidism Brother Combined hyperlipidemia Brother Colorectal cancer Brother Gout Brother No problems noted. 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 Head- atraumatic Eyes- PERRL. ENT- oropharynx dry Neck- supple, no JVD. Lungs- clear to auscultation no wheezing or crackles. Heart- regular rhythm; no murmur, no gallop. Abdomen- normal bowel sounds, soft, nontender, no distension Extremities- lower extremity edema present. Right leg ulcer in dressing. Per recent photos deep ulcer seen with no surrounding erythema Neuro- alert, oriented x 3; PERRL, EOMI; no facial palsy; no dysarthria; power upper ext 3-4/5 and lower extremity 2-3/5, no pronator drift, co ordination of movements normal, sensations intact, position sense intact Results & Data Results & Data Vital Signs (Past 12 Hours) Vital Signs Temp Pulse Pulse Resp BP BP Pulse Ox 07/11/24 06:00 64 19 115/72 100 07/11/24 04:16 125 H 07/11/24 04:00 65 17 97/63 L 94 07/11/24 02:06 71 17 92 07/11/24 02:04 71 07/11/24 00:12 36.5 C 79 18 102/71 100 07/11/24 00:06 73 16 96/56 L 97 07/11/24 00:06 O2 Del Method 07/11/24 06:00 Room Air 07/11/24 04:16 07/11/24 04:00 Room Air 07/11/24 02:06 Room Air 07/11/24 02:04 07/11/24 00:12 Room Air 07/11/24 00:06 Room Air 07/11/24 00:06 Room Air Diagnostic Findings Laboratory Results WBC 7.70 K/ul (4.8-10.8) 07/11/24 01:00 RBC 2.91 M/uL (4.20-5.40) L 07/11/24 01:00 Hgb 11.0 g/dl (12.0-16.0) L 07/11/24 01:00 Hct 33.2 % (37.0-47.0) L 07/11/24 01:00 MCV 114.1 fL (80.0-100.0) H 07/11/24 01:00 MCH 37.8 pg (25.0-34.0) H 07/11/24 01:00 MCHC 33.1 g/dL (32.0-36.0) 07/11/24 01:00 RDW Std Deviation 54.8 fL (36.4-46.3) H 07/11/24 01:00 RDW Coeff of Selam 13.0 % (11.5-14.5) 07/11/24 01:00 Plt Count 275 K/uL (130-400) 07/11/24 01:00 MPV 9.4 fL (9.4-12.4) 07/11/24 01:00 Immature Gran % (Auto) 0.9 % 07/11/24 01:00 Neut % (Auto) 65.6 % 07/11/24 01:00 Lymph % (Auto) 17.7 % 07/11/24 01:00 Mineral % (Auto) 11.0 % 07/11/24 01:00 Eos % (Auto) 4.3 % 07/11/24 01:00 Baso % (Auto) 0.5 % 07/11/24 01:00 Neut # (Auto) 5.05 K/uL (1.40-6.50) 07/11/24 01:00 Lymph # (Auto) 1.36 K/uL (1.20-3.40) 07/11/24 01:00 Mineral # (Auto) 0.85 K/uL (0.11-0.59) H 07/11/24 01:00 Eos # (Auto) 0.33 K/uL (0.00-0.50) 07/11/24 01:00 Baso # (Auto) 0.04 K/uL (0.00-0.20) 07/11/24 01:00 Immature Gran # (Auto) 0.07 K/uL (0.01-0.20) 07/11/24 01:00 Polychromasia 1+ 07/11/24 01:00 Macrocytosis Present 07/11/24 01:00 PT 10.9 Seconds (9.0-12.0) 07/11/24 02:32 INR 1.0 (0.9-1.1) 07/11/24 02:32 APTT 26 Seconds (21-31) 07/11/24 02:32 PTT Ratio 1.0 07/11/24 02:32 Sodium 143 mmol/L (136-145) 07/11/24 01:00 Potassium 3.3 mmol/L (3.5-5.1) L 07/11/24 01:00 Chloride 107 mmol/L (98-107) 07/11/24 01:00 Carbon Dioxide 32 mmol/L (21-32) 07/11/24 01:00 Anion Gap 4 (3-11) 07/11/24 01:00 BUN 13 mg/dl (6-23) 07/11/24 01:00 Creatinine 0.80 mg/dl (0.6-1.2) 07/11/24 01:00 Est Cr Clr Drug Dosing 54.0 ml/min 07/11/24 01:00 eGFR 80.21 07/11/24 01:00 BUN/Creatinine Ratio 16.3 (10-20) 07/11/24 01:00 Glucose 101 mg/dl (70-99(Fasting)) H 07/11/24 01:00 Calcium 8.3 mg/dl (8.6-10.3) L 07/11/24 01:00 Magnesium 1.5 mg/dl (1.7-2.4) L 07/11/24 01:00 Total Bilirubin 0.4 mg/dl (0.2-1.0) 07/11/24 01:00 AST 34 U/L (13-39) 07/11/24 01:00 ALT 26 U/L (7-52) 07/11/24 01:00 Alkaline Phosphatase 367 U/L (34-104) H 07/11/24 01:00 Troponin I High Sens 16.2 pg/ml (0-14) H 07/11/24 01:00 Total Protein 5.0 gm/dl (6.0-8.3) L 07/11/24 01:00 Albumin 2.7 gm/dl (3.4-5.0) L 07/11/24 01:00 Globulin 2.3 gm/dl (2.5-4.0) L 07/11/24 01:00 Albumin/Globulin Ratio 1.2 (0.9-2) 07/11/24 01:00 Urine Color Yellow 07/11/24 Unknown Urine Appearance Cloudy (Clear) A 07/11/24 Unknown Urine pH 5.5 (4.5-7.5) 07/11/24 Unknown Ur Specific [place] > 1.045 (1.000-1.030) H 07/11/24 Unknown Urine Protein Negative (Negative) 07/11/24 Unknown Urine Glucose (UA) Negative (Negative) 07/11/24 Unknown Urine Ketones Negative (Negative) 07/11/24 Unknown Urine Blood Negative (Negative) 07/11/24 Unknown Urine Nitrite Negative (Negative) 07/11/24 Unknown Urine Bilirubin Negative (Negative) 07/11/24 Unknown Urine Urobilinogen Negative (Negative) 07/11/24 Unknown Ur Leukocyte Esterase Negative (Negative) 07/11/24 Unknown Urine WBC (Auto) 0-5 /hpf (0-5) 07/11/24 Unknown Urine RBC (Auto) 0-2 /hpf (0-2) 07/11/24 Unknown U Hyaline Cast (Auto) 0-2 /lpf (0-2) 07/11/24 Unknown U Epithel Cells (Auto) >20 /hpf (0-2) H 07/11/24 Unknown Urine Bacteria (Auto) 3+ (None Seen) H 07/11/24 Unknown Impressions Chest X-Ray 07/11/24 00:24 EXAM: XR chest 1V portable CLINICAL HISTORY: NEUTO DEFICIT, ACUTE STROKE SUSPECTED WTW TECHNIQUE: X-ray examination of the chest AP view portable. COMPARISON: 08/21/2023. FINDINGS: No confluent consolidation or collapse. Mild pulmonary interstitial thickening seen. Port-a-cath seen well-placed with its tip at atriocaval junction. Normal cardiac size seen. No pleural effusion seen. No pneumothorax seen. Intact bony thorax seen. IMPRESSION: 1. No confluent consolidation or collapse. 2. Mild pulmonary interstitial thickening seen. 3. Port-a-cath seen well-placed with its tip at atriocaval junction. 4. No interval changes seen compared to previous study. Electronically signed by Yury Velez 07-11-2024 01:[address] 07/11/24 00:24 EXAM: CT head/brain wo con CLINICAL HISTORY: neuro deficit, acute stroke suspected TECHNIQUE: Axial non-contrast CT scan of the brain was performed from the skull base to the high parietal region. One of the following dose reduction techniques were utilized for this exam: Automated exposure control, adjustment of the mA and/or kV according to patient size, use of iterative reconstruction. COMPARISON: previous study dated 03/17/2024. FINDINGS: Brain Parenchyma: Age related atrophic changes seen as widening of both intra- and extra-axial subarachnoid spaces. Periventricular and deep white matter hypodensity consistent with old microvascular-related changes. No evidence of acute hemorrhage, or mass effect. Ventricular System: No evidence of hydrocephalus or ventricular enlargement. Subarachnoid Spaces: No evidence of subarachnoid hemorrhage or extra-axial fluid collections. Cerebellum and Brainstem: Normal size and signal. No masses, lesions, or areas of abnormal signal. Orbits: Normal appearance of the globes, optic nerves, and extraocular muscles. No evidence of orbital masses or abnormal signal. Sinuses: Clear paranasal sinuses. No evidence of sinusitis or mucosal thickening. Mastoid Air Cells: Clear mastoid air cells. No evidence of mastoiditis. Skull and Meninges: Normal skull morphology. IMPRESSION: 1. Age-related atrophic changes and old microvascular-related changes. 2. No interval changes. 3. No evidence of acute hemorrhage, or mass effect. 4. Early changes of acute ischemic infarction could not be evident on CT scan, for MRI study with diffusion sequence if clinically needed. [facility] was called at [phone] at 01:34 AM GASSER MACHINE OPERATOR, 07/11/2024, and KARLEE Vargas was informed regarding negative stroke results. Electronically signed by Yury Velez 07-11-2024 02:37 AM Head CTA 07/11/24 00:24 EXAM: CT angio head w con CLINICAL HISTORY: neuro deficit, acute stroke suspected 117 cc opti 320 TECHNIQUE: CT angiography of the head was performed following the intravenous administration of 117 cc opti 320 contrast material. Contiguous axial images were obtained from the base of the skull to the vertex. Coronal and sagittal reformatted images were also reviewed. One of these 3D techniques was utilized: Maximum Intensity Pixel (MIP), 3D Reconstructed Images, Volume Rendered Images, Surface Shaded Rendering. One of the following dose reduction techniques was utilized for this exam. Automated exposure control, adjustment of the mA and/or kV according to patient size, and use of iterative reconstruction. COMPARISON: CT head/brain 03/17/2024 FINDINGS: Intracranial Arteries: Minimal atherosclerotic changes seen in the cavernous portion of left internal carotid artery, with no significant stenosis. The intracranial arteries, including the anterior cerebral arteries, middle cerebral arteries, posterior cerebral arteries, basilar artery, and vertebral arteries, are all patent without evidence of significant stenosis, aneurysm, or dissection. There is no evidence of vascular malformations. [place]: The [place] is intact with no anatomical variations or abnormalities noted. All segments are well-visualized and normal in appearance. Venous System: The visualized portions of the venous system, including the dural venous sinuses, are patent with no evidence of thrombosis. Brain Parenchyma: Unchanged chronic microvascular ischemic changes. Unchanged age-related brain atrophy.The brain parenchyma shows no evidence of acute infarct, hemorrhage, or mass effect. Bones: The bony structures of the skull are intact without evidence of fracture or destructive lesions. Soft Tissues: The visualized soft tissues of the head are unremarkable. Additional Findings: No other significant findings are noted. IMPRESSION: 1. No evidence of significant arterial stenosis. 2. Chronic microvascular ischemic changes. Stable. 3. Senile brain atrophy. Stable. 4. No significant interval changes compared to the prior study, dated on 03/17/2024. [facility] was called at [phone] at 01:34 AM GASSER MACHINE OPERATOR, 07/11/2024, and KARLEE Vargas was informed regarding negative stroke results. Electronically signed by Yury Velez 07-11-2024 02:52 AM Neck CTA 07/11/24 00:24 EXAM: CT angio neck with con CLINICAL HISTORY: neuro deficit, acute stroke suspected 117 cc opti 320 TECHNIQUE: CT angiography of the head and neck was performed following the intravenous administration of 117 cc optiray 320 of iodinated contrast material. Axial images were obtained from the aortic arch to the vertex. Coronal and sagittal reformatted images were also reviewed. One of the following dose reduction techniques was utilized for this exam. Automated exposure control, adjustment of the mA and/or kV according to patient size, and use of iterative reconstruction. One of these 3D techniques was utilized: Maximum Intensity Pixel (MIP), 3D Reconstructed Images, Volume Rendered Images, Surface Shaded Rendering. COMPARISON: No previous studies are available for comparison. FINDINGS: Carotid Arteries: Tiny calcified atherosclerotic plaques at the carotid bulb bilaterally, with no evidence of significant stenosis. Minimal atherosclerotic changes seen in the cervical portion of the left internal carotid artery. No evidence of significant stenosis. The common, internal, and external carotid arteries are patent bilaterally with no evidence of significant stenosis, aneurysm, or dissection. Vertebral Arteries: The vertebral arteries are patent bilaterally with no evidence of significant stenosis, aneurysm, or dissection. Lymph Nodes: There is no evidence of significant lymphadenopathy in the neck. Soft Tissues: The soft tissues of the neck are unremarkable, with no evidence of masses or abnormal collections. Additional Findings: Cervical spondylosis. Visualized upper chest: Port-a-cath seen in the right aspect of the chest wall. Multiple bilateral emphysematous bullae. An opacity seen in the lateral aspect of the apical region of the right lung likely represent an area of fibrotic changes. IMPRESSION: Tiny calcified atherosclerotic plaque at the carotid bulb bilaterally. No evidence of significant stenosis. [facility] was called at [phone] at 01:34 AM GASSER MACHINE OPERATOR, 07/11/2024, and KARLEE Vargas was informed regarding negative stroke results. Electronically signed by Yury Velez 07-11-2024 02:41 AM ECG Additional Comments: ECG. Normal sinus rhythm rate 72. Left axis deviation. QTc 451. Code Status & VTE Plan VTE Prophylaxis Plan VTE Prophylaxis will be ordered: Yes (1) AMS (altered mental status) Altered mental status type: unspecified Qualified Code(s): R41.82 - Altered mental status, unspecified
--- NOTE | 2024-07-11 09:08 | Electrocardiogram Report ---
Test Reason : Blood Pressure : */* mmHG Vent. Rate : 72 BPM Atrial Rate : 72 BPM P-R Int : 200 ms QRS Dur : 78 ms QT Int : 412 ms P-R-T Axes : 80 -32 41 degrees QTcB Int : 451 ms Normal sinus rhythm Left axis deviation Low voltage QRS Poor R wave progression, consider anterior DC vs. lead placement vs. LVH Abnormal ECG When compared with ECG of 16-Jun-2024 10:32, Nonspecific T wave abnormality no longer present Confirmed by Cullen Chanel ([id number]) on 07/11/2024 9:07:58 AM Referred By: REFERRED SELF Confirmed By: Cullen Chanel
[2024-07-11] MEDS ORDERED: SPIRONOLACTONE 12.5 MG TAB PO PRN (09:36)
[2024-07-11] MEDS ORDERED: LORazepam 0.5 MG TAB PO PRN (09:36)
[2024-07-11] MEDS ORDERED: NITROGLYCERIN SL 0.4 MG/TAB TAB SL PRN (09:36)
[2024-07-11] MEDS ORDERED: PHARMACIST DISCHARGE MED REC CONSULT PRN (09:36)
[2024-07-11] MEDS ORDERED: POLYETHYLENE (MIRALAX) 17 GM PACK PO PRN (09:36)
[2024-07-11] MEDS ORDERED: ACETAMINOPHEN 325 MG TAB PO PRN (09:36)
[2024-07-11] MEDS ORDERED: PROCHLORPERAZINE MALEATE 10 MG TAB PO PRN (09:36)
[2024-07-11] MEDS: oxyCODONE/APAP 7.5/325MG TAB PO PRN (10:38)
[2024-07-11] MEDS: GADOBUTROL 65ML VIAL IV ONE (11:14)
[2024-07-11] MEDS: POTASSIUM CHLORIDE CRTAB 20 MEQ TABCR PO SCH (11:15)
[2024-07-11] MEDS: SODIUM CHLORIDE 0.9% 500 ML IV SCH (11:41)
[2024-07-11] MEDS: THIAMINE HCL 200 MG in SODIUM CHLORIDE 0.9% 50 ML IV STA (11:42)
[2024-07-11] MEDS: CEFEPIME 2000MG 2,000 MG/20 ML SYR IV SCH (11:46)
[2024-07-11] MEDS: MAGNESIUM SULFATE / D5W 1 GM/100 ML BAG IV SCH ×2 (11:48→12:02)
[2024-07-11] MEDS: POTASSIUM CHLORIDE PWD 20 MEQ PACK PO SCH (11:56)
[2024-07-11] MEDS: busPIRone 5 MG TAB PO SCH ×2 (11:56→13:31)
[2024-07-11] MEDS: GABAPENTIN 300 MG CAP PO SCH (11:57)
[2024-07-11] MEDS: FUROSEMIDE 40 MG TAB PO SCH (11:58)
[2024-07-11] MEDS: PANTOprazole 40 MG TAB PO SCH (11:58)
[2024-07-11] MEDS: CYANOCOBALAMIN (B-12) 500 MCG TABLET PO SCH (11:59)
[2024-07-11] MEDS: METOPROLOL SUCC 25MG EXT REL TAB PO SCH (11:59)
[2024-07-11] MEDS: MAGNESIUM OXIDE 400 MG TAB PO SCH (12:00)
[2024-07-11] MEDS: LEVOTHYROXINE SODIUM 150 MCG TABLET PO SCH (12:00)
[2024-07-11] MEDS: APIXABAN 5 MG TABLET PO SCH (12:01)
[2024-07-11] MEDS: buPROPion XL 300 MG TABCR PO SCH (12:01)
[2024-07-11] MEDS: CALCIUM 600MG + VIT D 400 IU TAB PO SCH (12:01)
[2024-07-11] MEDS: buPROPion XL 150 MG TABCR PO SCH (12:01)
--- NOTE | 2024-07-11 13:28 | Magnetic Resonance Report ---
MR brain wo/w con HISTORY: 69 years-old Female stroke like symptoms acute stroke like symptoms COMPARISON: Head CT of same day, brain MRI 08/22/2023 TECHNIQUE: Multiplanar multisequence MRI of the brain was obtained with and without IV contrast. FINDINGS: There is no restricted diffusion to suggest acute or subacute infarct. Midline structures appear unre markable. Motion degraded exam. Degenerative changes of the imaged cervical spine. Mildly motion degr aded exam. No acute intracranial hemorrhage, midline shift, abnormal extra-axial collection, hydrocep halus or intra-axial mass. There is no pathologic blooming artifact on the T2 *series. Involutional c hanges with mild to moderate T2/FLAIR hyperintense foci throughout the white matter. Cerebral venous sinuses and major arterial flow voids appear patent. The skull, orbits and soft tissu es are unremarkable. Prior bilateral lens repair. Small right mastoid effusion. Mild mucosal thickeni ng of the paranasal sinuses. No abnormal enhancement. IMPRESSION: 1. No acute intracranial abnormality. No acute or subacute infarct. 2. Involutional changes with chronic microvascular ischemic disease. 3. No abnormal enhancement. ACT 112: Negative or not required by law. The above report was generated using voice recognition software. It may contain grammatical, syntax o r spelling errors. Electronically signed by: Reinier Magaña M.D. 07/11/2024 1:26 PM
--- NOTE | 2024-07-11 14:06 | Neurology Consultation ---
Date of Consultation July 11, 2024 Assessment & Plan (1) AMS (altered mental status): Codi Soto is a 69 yo F presenting with transient confusion in the setting of polypharmacy, hypokalemia and possible UTI. MRI is negative, patient should remain on eliquis however and being off eliquis may have increased her risk for TIA or stroke. Doubt cerebrovascular cause as there were no focal deficits. Would address her medication regimen with palliative care as an outpatient if these events continue to occur. No further neurologic workup otherwise. Please contact us with any questions. Telehealth Consultation Telehealth Information Telehealth Information: I performed this visit using a real-time telehealth connection between my location and the patients location ([facility]). After connecting through interactive tele-video, patient was identified by name and date of and/or wristband check.Patient (or authorized healthcare traffic workforce representative) was informed that this was a telemedicine visit and it was being conducted confidentially over secure lines. My office door was closed and no one else was present in the room with me.Patient (or authorized healthcare traffic workforce representative) provided consent to proceed with the visit, expressed an understanding of privacy and security of the telemedicine visit, and gave permission to have a hospital traffic workforce representative in the room in order to assist with the visit and to conduct portions of the visit, as needed. I informed the patient (or authorized healthcare traffic workforce representative) that I reviewed their record and presented the opportunity for them to ask any questions regarding the visit today. The patient agreed to participate. History of Present Illness Reason for Consultation: Confusion Requesting Physician: Dr. Duke Attending Physician: Tammi Duke MD History of Present Illness Codi Soto is a 69 yo F presenting with two transient episodes of confusion at home. Her is at bedside and reports that she became suddenly confused and unable to remember important events or names, or how to operate her ronny which she uses daily. The first episode lasted 20 minutes and resolved and they did not seek medical attention, the confusion happened again today and she was brought to [facility] for further evaluation. The patient feels back to baseline currently. There was no focal weakness, numbness or loss of consciousness during the episodes. She had adjusted her narcotic recently but otherwise no new medication. She has also been off eliquis due to cost for 2 weeks though was taking it for chronic DVT in her LEs. Denies any recent falls or headache. Allergies Allergy/AdvReac Type Severity Reaction Status Date / Time amoxicillin AdvReac Intermediate NAUSEA/VOMI Verified 07/07/24 15:31 TING Penicillins AdvReac Intermediate NAUSEA/VOMITING/"FEELS Verified 07/07/24 15:31 NERVOUS" Home Medications Medication Instructions Recorded Confirmed Type acetaminophen 500 mg tablet 500 mg PO Q6H PRN Pain 08/22/23 07/11/24 History (Tylenol Extra Strength) bupropion HCl 150 mg 24 hr tablet, 150 mg PO QAM 08/22/23 07/11/24 History extended release bupropion HCl 300 mg 24 hr tablet, 300 mg PO QAM 08/22/23 07/11/24 History extended release buspirone 10 mg tablet See Rx Instructions .Route .COMPLEX 08/22/23 07/11/24 History calcium 1,000 mg (as 1 tab PO QAM 08/22/23 07/11/24 History carbonate)-vitamin D3 20 mcg (800 unit) tablet cyanocobalamin (vitamin B-12) 1,000 mcg PO QAM 08/22/23 07/11/24 History 1,000 mcg tablet (Vitamin B-12) levothyroxine 150 mcg tablet 150 mcg PO DAILYBB 08/22/23 07/11/24 History lorazepam 0.5 mg tablet 0.5 mg PO DAILY PRN Anxiety 08/22/23 07/11/24 History magnesium oxide 800 mg PO BID 08/22/23 07/11/24 History metoprolol succinate 25 mg 12.5 mg PO QAM 08/22/23 07/11/24 History tablet,extended release 24 hr omeprazole 20 mg capsule,delayed 20 mg PO QAM 08/22/23 07/11/24 History release ondansetron 8 mg disintegrating 8 mg PO Q8H PRN Nausea And Vomiting 08/22/23 07/11/24 History tablet potassium chloride 20 mEq 20 meq PO DAILY 08/22/23 07/11/24 History tablet,extended release prochlorperazine maleate 10 mg 10 mg PO Q8H PRN Nausea 08/22/23 07/11/24 History tablet (Compazine) ergocalciferol (vitamin D2) 1,250 50,000 unit PO WK 12/25/23 07/11/24 History mcg (50,000 unit) capsule fluoride (sodium) 1.1 % dental 1 applic dental HS 12/25/23 07/11/24 History paste (Sodium Fluoride 5000 Dry Mouth) furosemide 40 mg tablet (Lasix) 40 mg PO QAM 12/25/23 07/11/24 History spironolactone 25 mg tablet 12.5 mg PO QAM PRN swelling 03/14/24 07/11/24 History apixaban 5 mg tablet (Eliquis) 5 mg PO BID 04/16/24 07/11/24 History gabapentin 300 mg capsule 600 mg (2 x 300 mg) PO TID #0 caps 06/18/24 07/11/24 Rx oxycodone-acetaminophen 7.5 mg-325 1 tab PO Q6H PRN pain 1 month #120 06/22/24 07/11/24 Rx mg tablet (Endocet) tabs Patient History Medical History Lymphedema Acute alteration in mental status S/P radiation therapy before bone marrow transplant 12-11-2016 History of diabetes mellitus HX STEROID INDUCED DIABETES, NOW RESOLVED Low blood pressure Sepsis due to Pseudomonas species with acute organ dysfunction and septic shock this happened 100 days after the transplant CMV (cytomegalovirus infection) HX ? PT NOT SURE Autoimmune hepatitis Nausea and vomiting after administration of anesthetic agent Hypothyroidism AML (acute myeloblastic leukemia) diagnosed - CURRENT CHEMOTHERAPY/PORT RIGHT CHEST TMJ disease HX SURGERY, RESOLVED PROBLEM Depression Anxiety Migraine HX Takotsubo cardiomyopathy reason for metoprolol--follows with Dr. 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 History of amputation of toe left big toe History of hemorrhoidectomy History of colonoscopy History of esophagogastroduodenoscopy (EGD) History of vascular access device right APORT History of mandibular surgery TMJ sx--plate in right side of jaw History of tooth extraction History of wisdom tooth extraction History of cardiac cath 2012 in [place]---no stents Family History Sister Family history of diabetes mellitus Mother , age 84 Head and neck cancer COPD (chronic obstructive pulmonary disease) Father , age 75 Esophageal cancer Sister Vertigo Hypertension Sister Hypothyroidism Brother Combined hyperlipidemia Brother Colorectal cancer Brother Gout Brother No problems noted. 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 Oriented to person, place, and time. Fluent. Comprehension intact. Affect appropriate. Cranial Nerves: II: Reads NIHSS cards, pupils 3/3 to 2/2 III/IV/: Versions intact without nystagmus, no gaze preference. V: Facial sensation symmetric to light touch VII: Facial expression symmetric VIII: Hearing intact to voice Motor: Strength was symmetric and antigravity throughout. Pronator drift was absent. There were no abnormal movements. Results & Data Vital Signs (Past 12 Hours) Vital Signs Temp Pulse Pulse Resp BP BP Pulse Ox 07/11/24 11:21 75 07/11/24 09:38 07/11/24 09:38 36.5 C 72 16 117/66 100 07/11/24 08:53 69 16 114/68 100 07/11/24 07:14 64 12 104/63 100 07/11/24 06:00 64 19 115/72 100 07/11/24 04:16 125 H 07/11/24 04:00 65 17 97/63 L 94 07/11/24 02:06 71 17 92 07/11/24 02:04 71 O2 Del Method 07/11/24 11:21 07/11/24 09:38 Room Air 07/11/24 09:38 Room Air 07/11/24 08:53 Room Air 07/11/24 07:14 Room Air 07/11/24 06:00 Room Air 07/11/24 04:16 07/11/24 04:00 Room Air 07/11/24 02:06 Room Air 07/11/24 02:04 Laboratory Results Abnormal lab results 07/11/24 07/11/24 07/11/24 Range/Units 01:00 09:59 Unknown RBC 2.91 L (4.20-5.40) M/uL Hgb 11.0 L (12.0-16.0) g/dl Hct 33.2 L (37.0-47.0) % MCV 114.1 H (80.0-100.0) fL MCH 37.8 H (25.0-34.0) pg RDW Std Deviation 54.8 H (36.4-46.3) fL [place] # (Auto) 0.85 H (0.11-0.59) K/uL Potassium 3.3 L (3.5-5.1) mmol/L Glucose 101 H (70-99(Fasting)) mg/dl Calcium 8.3 L (8.6-10.3) mg/dl Magnesium 1.5 L (1.7-2.4) mg/dl Alkaline Phosphatase 367 H (34-104) U/L Troponin I High Sens 16.2 H (0-14) pg/ml Total Protein 5.0 L (6.0-8.3) gm/dl Albumin 2.7 L (3.4-5.0) gm/dl Globulin 2.3 L (2.5-4.0) gm/dl 25-OH Vitamin D Total 10.2 L (30-100) ng/ml Urine Appearance Cloudy A (Clear) Ur Specific [place] > 1.045 H (1.000-1.030) U Epithel Cells (Auto) >20 H (0-2) /hpf Urine Bacteria (Auto) 3+ H (None Seen) Diagnostic Findings Chest X-Ray 07/11/24 00:24 EXAM: XR chest 1V portable CLINICAL HISTORY: NEUTO DEFICIT, ACUTE STROKE SUSPECTED WTW TECHNIQUE: X-ray examination of the chest AP view portable. COMPARISON: 08/21/2023. FINDINGS: No confluent consolidation or collapse. Mild pulmonary interstitial thickening seen. Port-a-cath seen well-placed with its tip at atriocaval junction. Normal cardiac size seen. No pleural effusion seen. No pneumothorax seen. Intact bony thorax seen. IMPRESSION: 1. No confluent consolidation or collapse. 2. Mild pulmonary interstitial thickening seen. 3. Port-a-cath seen well-placed with its tip at atriocaval junction. 4. No interval changes seen compared to previous study. Electronically signed by Yury Velez 07-11-2024 01:[address] 07/11/24 00:24 EXAM: CT head/brain wo con CLINICAL HISTORY: neuro deficit, acute stroke suspected TECHNIQUE: Axial non-contrast CT scan of the brain was performed from the skull base to the high parietal region. One of the following dose reduction techniques were utilized for this exam: Automated exposure control, adjustment of the mA and/or kV according to patient size, use of iterative reconstruction. COMPARISON: previous study dated 03/17/2024. FINDINGS: Brain Parenchyma: Age related atrophic changes seen as widening of both intra- and extra-axial subarachnoid spaces. Periventricular and deep white matter hypodensity consistent with old microvascular-related changes. No evidence of acute hemorrhage, or mass effect. Ventricular System: No evidence of hydrocephalus or ventricular enlargement. Subarachnoid Spaces: No evidence of subarachnoid hemorrhage or extra-axial fluid collections. Cerebellum and Brainstem: Normal size and signal. No masses, lesions, or areas of abnormal signal. Orbits: Normal appearance of the globes, optic nerves, and extraocular muscles. No evidence of orbital masses or abnormal signal. Sinuses: Clear paranasal sinuses. No evidence of sinusitis or mucosal thickening. Mastoid Air Cells: Clear mastoid air cells. No evidence of mastoiditis. Skull and Meninges: Normal skull morphology. IMPRESSION: 1. Age-related atrophic changes and old microvascular-related changes. 2. No interval changes. 3. No evidence of acute hemorrhage, or mass effect. 4. Early changes of acute ischemic infarction could not be evident on CT scan, for MRI study with diffusion sequence if clinically needed. [facility] ER was called at [phone] at 01:34 AM STATION MECHANIC APPRENTICE, 07/11/2024, and KARLEE Vargas was informed regarding negative stroke results. Electronically signed by Yury Velez 07-11-2024 02:37 AM Head CTA 07/11/24 00:24 EXAM: CT angio head w con CLINICAL HISTORY: neuro deficit, acute stroke suspected 117 cc opti 320 TECHNIQUE: CT angiography of the head was performed following the intravenous administration of 117 cc opti 320 contrast material. Contiguous axial images were obtained from the base of the skull to the vertex. Coronal and sagittal reformatted images were also reviewed. One of these 3D techniques was utilized: Maximum Intensity Pixel (MIP), 3D Reconstructed Images, Volume Rendered Images, Surface Shaded Rendering. One of the following dose reduction techniques was utilized for this exam. Automated exposure control, adjustment of the mA and/or kV according to patient size, and use of iterative reconstruction. COMPARISON: CT head/brain 03/17/2024 FINDINGS: Intracranial Arteries: Minimal atherosclerotic changes seen in the cavernous portion of left internal carotid artery, with no significant stenosis. The intracranial arteries, including the anterior cerebral arteries, middle cerebral arteries, posterior cerebral arteries, basilar artery, and vertebral arteries, are all patent without evidence of significant stenosis, aneurysm, or dissection. There is no evidence of vascular malformations. [place]: The [place] is intact with no anatomical variations or abnormalities noted. All segments are well-visualized and normal in appearance. Venous System: The visualized portions of the venous system, including the dural venous sinuses, are patent with no evidence of thrombosis. Brain Parenchyma: Unchanged chronic microvascular ischemic changes. Unchanged age-related brain atrophy.The brain parenchyma shows no evidence of acute infarct, hemorrhage, or mass effect. Bones: The bony structures of the skull are intact without evidence of fracture or destructive lesions. Soft Tissues: The visualized soft tissues of the head are unremarkable. Additional Findings: No other significant findings are noted. IMPRESSION: 1. No evidence of significant arterial stenosis. 2. Chronic microvascular ischemic changes. Stable. 3. Senile brain atrophy. Stable. 4. No significant interval changes compared to the prior study, dated on 03/17/2024. [facility] was called at [phone] at 01:34 AM STATION MECHANIC APPRENTICE, 07/11/2024, and KARLEE Vargas was informed regarding negative stroke results. Electronically signed by Yury Velez 07-11-2024 02:52 AM Neck CTA 07/11/24 00:24 EXAM: CT angio neck with con CLINICAL HISTORY: neuro deficit, acute stroke suspected 117 cc opti 320 TECHNIQUE: CT angiography of the head and neck was performed following the intravenous administration of 117 cc optiray 320 of iodinated contrast material. Axial images were obtained from the aortic arch to the vertex. Coronal and sagittal reformatted images were also reviewed. One of the following dose reduction techniques was utilized for this exam. Automated exposure control, adjustment of the mA and/or kV according to patient size, and use of iterative reconstruction. One of these 3D techniques was utilized: Maximum Intensity Pixel (MIP), 3D Reconstructed Images, Volume Rendered Images, Surface Shaded Rendering. COMPARISON: No previous studies are available for comparison. FINDINGS: Carotid Arteries: Tiny calcified atherosclerotic plaques at the carotid bulb bilaterally, with no evidence of significant stenosis. Minimal atherosclerotic changes seen in the cervical portion of the left internal carotid artery. No evidence of significant stenosis. The common, internal, and external carotid arteries are patent bilaterally with no evidence of significant stenosis, aneurysm, or dissection. Vertebral Arteries: The vertebral arteries are patent bilaterally with no evidence of significant stenosis, aneurysm, or dissection. Lymph Nodes: There is no evidence of significant lymphadenopathy in the neck. Soft Tissues: The soft tissues of the neck are unremarkable, with no evidence of masses or abnormal collections. Additional Findings: Cervical spondylosis. Visualized upper chest: Port-a-cath seen in the right aspect of the chest wall. Multiple bilateral emphysematous bullae. An opacity seen in the lateral aspect of the apical region of the right lung likely represent an area of fibrotic changes. IMPRESSION: Tiny calcified atherosclerotic plaque at the carotid bulb bilaterally. No evidence of significant stenosis. [facility] ER was called at [phone] at 01:34 AM STATION MECHANIC APPRENTICE, 07/11/2024, and KARLEE Vargas was informed regarding negative stroke results. Electronically signed by Yury Velez 07-11-2024 02:41 AM Brain MRI 07/11/24 09:36 MR brain wo/w con HISTORY: 69 years-old Female stroke like symptoms acute stroke like symptoms COMPARISON: Head CT of same day, brain MRI 08/22/2023 TECHNIQUE: Multiplanar multisequence MRI of the brain was obtained with and without IV contrast. FINDINGS: There is no restricted diffusion to suggest acute or subacute infarct. Midline structures appear unremarkable. Motion degraded exam. Degenerative changes of the imaged cervical spine. Mildly motion degraded exam. No acute intracranial hemorrhage, midline shift, abnormal extra-axial collection, hydrocephalus or intra-axial mass. There is no pathologic blooming artifact on the T2 *series. Involutional changes with mild to moderate T2/FLAIR hyperintense foci throughout the white matter. Cerebral venous sinuses and major arterial flow voids appear patent. The skull, orbits and soft tissues are unremarkable. Prior bilateral lens repair. Small right mastoid effusion. Mild mucosal thickening of the paranasal sinuses. No abnormal enhancement. IMPRESSION: 1. No acute intracranial abnormality. No acute or subacute infarct. 2. Involutional changes with chronic microvascular ischemic disease. 3. No abnormal enhancement. ACT 112: Negative or not required by law. The above report was generated using voice recognition software. It may contain grammatical, syntax or spelling errors. Electronically signed by: Reinier Magaña M.D. 07/11/2024 1:26 PM (1) AMS (altered mental status) Altered mental status type: unspecified Qualified Code(s): R41.82 - Altered mental status, unspecified
--- NOTE | 2024-07-11 15:54 | Communication Note ---
Date of Service: July 11, 2024 Episode of amnesia/confusion Reports feeling better since admission MRI without stroke UA suspicious however multiple Epi cells #Strokelike symptoms potentially 2/2 dehyrdraion v UTI CTX for now (cefepime d/c due to neurotox) delirium precautions s/p 1 L NS CTM #RLE wound POA follows wound care wound care consult
[2024-07-11] MEDS ORDERED: FLUORIDE 1.1% DT SCH (21:00)
[2024-07-11] MEDS: cefTRIAXone SODIUM 2,000 MG/50 ML BAG IV SCH (21:12)
[2024-07-11 23:42] VITALS: RESP 16
[2024-07-12 06:19] LABS: Basophils # (auto) 0.04 K/uL (0.00-0.20); Basophils % (auto) 0.7 %; Eosinophils # (auto) 0.32 K/uL (0.00-0.50); Eosinophils % (auto) 5.7 %; Hematocrit (blood only) 28.8 % (37.0-47.0); Hemoglobin 9.3 g/dl (12.0-16.0); Immature Granulocytes # (auto) 0.08 K/uL (0.01-0.20); Immature Granulocytes % (auto) 1.4 %; Lymphocytes # (auto) 1.32 K/uL (1.20-3.40); Lymphocytes % (auto) 23.6 %; Mean Corpuscular Hemoglobin 36.8 pg (25.0-34.0); Mean Corpuscular Hgb Conc 32.3 g/dL (32.0-36.0); Mean Corpuscular Volume 113.8 fL (80.0-100.0); Mean Platelet Volume 9.5 fL (9.4-12.4); Monocytes # (auto) 0.79 K/uL (0.11-0.59); Monocytes % (auto) 14.1 %; Neutrophils # (auto) 3.05 K/uL (1.40-6.50); Neutrophils % (auto) 54.5 %; Platelet Count 237 K/uL (130-400); RDW Coefficient of Variation 12.8 % (11.5-14.5); Red Blood Count 2.53 M/uL (4.20-5.40)
[2024-07-12 06:41] LABS: BUN Creatinine Ratio 17.2 (10-20); Chol HDL Ratio 2.2 (0-5); Creatinine Clr Calc Pharmacy 75.2 ml/min; Potassium 4.2 mmol/L (3.5-5.1)
[2024-07-12 06:49] LABS: Macrocytosis Present
[2024-07-12 07:07] VITALS: TEMP 97.5
[2024-07-12 08:08] LABS: Estimated Average Glucose 77 mg/dl; Hemoglobin A1C 4.3 % (4.5-5.6)
[2024-07-12] MEDS: HEPARIN 100 UNIT/ML 5ML FLUSH FLUSH PRN (08:22)
[2024-07-12] MEDS: ERGOCALCIFEROL 1250 MCG (50,000 UNITS) CAP PO SCH (08:39)
[2024-07-12 10:58] VITALS: BP 97/65; PULSE 75; O2SAT 100
[2024-07-12] MEDS: NITROFURANTOIN MONOHYDRATE 100 MG CAP PO SCH (13:16)
[2024-07-12] MEDS ORDERED: STROKE PATIENT DISCHARGE STA (14:00)
--- NOTE | 2024-07-12 14:03 | Discharge Summary ---
Discharge Summary Date of Service July 12, 2024 Principal Dx & Hospital Course #1 = Principal Diagnosis (1) AMS (altered mental status): Ms. 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 MRI was negative, however, neuro does note she has increased risks given being off of eliquis. Patient resumed on apixaban. There was also concern for possible UTI (questionable sample but high risk patient) as well as dehydration Lasix and spironolactone held at this time. On day of discharge, patient reported she felt well and denied any return of amnesia like symptoms. #Acute metabolic encephalopathy, likely iso dehydration ?UTI #Transient global amnesia Rule out stroke CT head, CTA head and neck unremarkable MRI negative high risk however and recently off of eliquis Resumed apixaban s/p IV fluid -hold lasix/spironolactone for now UA suspicious, pin point colony--continue short course macrobid #Abnormal UA, suspicious for uncomplicated UTI patient with loose stool and issues with hygiene occasionally given RLE wound high risk patient with these presenting symptoms Macrobid 100mg x 4 more days for total 5 day course #Diet-controlled diabetes HbA1c 4.4 when checked in March 2024 #Refractory AML and leukemia cutis Currently chemotherapy on hold for right lower extremity wound Follows with heme-onc #Right lower extremity venous stasis ulcer Follows wound care OP #Hypomagnesia Replace Continue home supplement #Elevated alkaline phosphatase Seems chronic Will monitor #Mildly elevated troponin Mostly demand ischemia Will follow serial troponins #Chronic DVT and superficial thrombus On Eliquis #History of mitral valve prolapse History of Takotsubo cardiomyopathy Recent echo in november 2023 normal EF #Chronic bilateral lower extremity edema/lymphedema hold diuretics #Hypothyroidism on Synthyroid #Depression General Anxiety disorder Continue home meds Notes For Next Care Provider Medication Changes From Visit Hold lasix and spironolactone Macrobid x 4 more days Admission HPI Per Admitting Provider 69-year-old female with past medical history significant for diet-controlled diabetes, hypothyroidism, history of hypokalemia and hypomagnesia, history of Takotsubo cardiomyopathy, history of mitral valve prolapse, history of autoimmune hepatitis, history of GERD, chronic diarrhea, amputation of the left great toe history of syncope, history of AML, AML relapse , history of leukemia cutis, chemotherapy induced neutropenia, history of ITP, 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 As per they went outside for dinner and when he came back patient was trying to open her Jennifer when she seemed confused. She does not know that it was Kindel. When asked questions she does not know that they went out to eat. She could not recollect that days events. Similar episode happened about a week on Saturday thought to be brain fog. At the time it lasted for couple of hours. They thought it could be from a recent increase in the pain medications. After that saw palliative care and pain medication reduced. But this time when it happened again the did not want any to take any chance and brought her brought to the hospital. Initial workup with CT head and CTA head and neck unremarkable. Patient currently resting comfortably. Hemodynamics okay. Denies any headache. Denies any blurred visions or double vision. No runny nose or sore throat , no cough. Appetite is down. Denies any chest pain or shortness of breath. No nausea. No abdominal pain. Normal bowel and bladder bladder movements. She is on chemo for leukemia cutis but it was held because of the right lower extremitiy wound. Last chemo was in May. Patient still currently could not remember why she is in the hospital. Patient recently was seen in the hospital from June 16 to June 18 for cellulitis and acute on chronic pain of right lower extremity venous stasis ulcers and her gabapentin was increased to 600 mg 3 times daily and oxycodone was changed to Percocet and was treated with Cipro and Doxy. Patient follows with wound care. Past medical history. As mentioned above Past surgical history. Amputation of the left toe. Bone marrow aspiration. Colonoscopy. EGD. Injection of lumbosacral spine. Removal of Hastings catheter. TMJ arthroscopy. Social history. . No smoking. Alcohol rarely. No drug use. Family history. Maternal cousin had breast cancer in 30s. Maternal grandmother had breast cancer. Mother had head and neck cancer.COPD. Carotid stenosis. Stroke. Father had esophageal cancer. Heart attack. Hypertension. Sister has thyroid disorder. Admission Exam Per Admitting Provider Neurological Examination: Mental Status: Awake and alert. Oriented to person, place, and time. Fluent. Comprehension intact. Affect appropriate. Cranial Nerves: II: Reads NIHSS cards, pupils 3/3 to 2/2 III/IV/: Versions intact without nystagmus, no gaze preference. V: Facial sensation symmetric to light touch VII: Facial expression symmetric VIII: Hearing intact to voice Motor: Strength was symmetric and antigravity throughout. Pronator drift was absent. There were no abnormal movements. Discharge Exam Constitutional WD/WN, vitals as above Respiratory normal respiratory effort, lungs clear to auscultation Cardiovascular RRR, no murmur, no edema Gastrointestinal (Abdomen) normal bowel sounds, soft, nontender, no hepatosplenomegaly Updated Medication List Medication Instructions Recorded Confirmed Type acetaminophen 500 mg tablet 500 mg PO Q6H PRN Pain 08/22/23 07/11/24 History (Tylenol Extra Strength) bupropion HCl 150 mg 24 hr tablet, 150 mg PO QAM 08/22/23 07/11/24 History extended release bupropion HCl 300 mg 24 hr tablet, 300 mg PO QAM 08/22/23 07/11/24 History extended release buspirone 10 mg tablet See Rx Instructions .Route .COMPLEX 08/22/23 07/11/24 History calcium 1,000 mg (as 1 tab PO QAM 08/22/23 07/11/24 History carbonate)-vitamin D3 20 mcg (800 unit) tablet cyanocobalamin (vitamin B-12) 1,000 mcg PO QAM 08/22/23 07/11/24 History 1,000 mcg tablet (Vitamin B-12) levothyroxine 150 mcg tablet 150 mcg PO DAILYBB 08/22/23 07/11/24 History lorazepam 0.5 mg tablet 0.5 mg PO DAILY PRN Anxiety 08/22/23 07/11/24 History magnesium oxide 800 mg PO BID 08/22/23 07/11/24 History metoprolol succinate 25 mg 12.5 mg PO QAM 08/22/23 07/11/24 History tablet,extended release 24 hr omeprazole 20 mg capsule,delayed 20 mg PO QAM 08/22/23 07/11/24 History release ondansetron 8 mg disintegrating 8 mg PO Q8H PRN Nausea And Vomiting 08/22/23 07/11/24 History tablet potassium chloride 20 mEq 20 meq PO DAILY 08/22/23 07/11/24 History tablet,extended release prochlorperazine maleate 10 mg 10 mg PO Q8H PRN Nausea 08/22/23 07/11/24 History tablet (Compazine) ergocalciferol (vitamin D2) 1,250 50,000 unit PO WK 12/25/23 07/11/24 History mcg (50,000 unit) capsule fluoride (sodium) 1.1 % dental 1 applic dental HS 12/25/23 07/11/24 History paste (Sodium Fluoride 5000 Dry Mouth) furosemide 40 mg tablet (Lasix) 40 mg PO QAM 12/25/23 07/11/24 History spironolactone 25 mg tablet 12.5 mg PO QAM PRN swelling 03/14/24 07/11/24 Histor y apixaban 5 mg tablet (Eliquis) 5 mg PO BID 04/16/24 07/11/24 History gabapentin 300 mg capsule 600 mg (2 x 300 mg) PO TID #0 caps 06/18/24 07/11/24 Rx oxycodone-acetaminophen 7.5 mg-325 1 tab PO Q6H PRN pain 1 month #120 06/22/24 07/11/24 Rx mg tablet (Endocet) tabs nitrofurantoin 100 mg PO BID 7 days #14 caps 07/12/24 Rx monohydrate/macrocrystals 100 mg capsule Hospital Stay Data Consultations 07/11/24 02:48 ED Decision to Admit Stat 07/11/24 09:36 Consult Neurology Routine Diagnostic Imagining Performed 07/11/24 00:24 CT angio head w con Stat CT angio neck with con Stat CT head/brain wo con Stat 07/11/24 09:36 MR brain wo/w con Routine Pending Results Patient Have Any Pending Studies at Discharge: No Discharge Instructions Given to Patient (Per Discharging Provider) You were admitted for confusion and amnesia. You were noted to be dehydrated and also there was question for concern of UTI. You were given IV fluids and started on a short course of antibiotic -Macrobid 100mg two times a day, next dose this evening Please continue until course complete Please hold your furosemide and discuss resumption with your PCP Total Time Total Time Spent Total Time Spent (In Minutes): 45
--- NOTE | 2024-07-12 14:06 | Communication Note ---
Date of Service: July 12, 2024 By CMS guidelines, a determination that the admission or continued stay is not medically necessary has been made by a member of the UR committee and jennifer bearden for this hospital stay, therefore a Code 44 will be completed and the Inpatient admission will be changed to outpatient.
== END 2024-07-12 15:49 | disposition home or self-care (01) | DRG 640 ==
LOC: ED 00:05 → 2S 06:23

== ENCOUNTER 2024-07-28 21:08 | Inpatient (IN) ==
--- OUTSIDE RECORDS SUMMARY | 2024-07-28 21:15 | External Medical Summary | Summary of Care ---
Author Name Unknown Organization [facility] Address [address] [place] [address] Phone [phone] Care Team Providers Care Pigeon Fancier Name Role Phone Joe Peng DO Primary Care Provider [phone] Reason for Visit * Reason Onset Date Comments Appointment 07/24/2024 Encounter Details Date Type Department Care Team (Late st Contact Info) Description 07/24/2024 Telephone Hematology/Oncology [facility] [place] [address] [facility] [place] [address] Corbin Nielson MD [address] [facility] [place] [address] Appointment Allergies Active Allergy Reactions Criticality Noted Date Comments Amoxicillin Nausea/vomiting 11/14/2015 Penicillins Nausea/vomiting Low 08/12/2007 tolerated cephalosporins in past Other reaction(s): Nausea Only Other reaction(s): "makes me nervous", Nausea documented as of this encounter (statuses as of 07/24/2024) Medications Calcium Carb-Cholecalcife rol 1000-800 MG-UNIT Oral [...] 07/01/20 23 Active Vitamin D3 1.25 MG (47828 UT) Oral Capsule Take 1 Capsule by mouth once a week. 12 Capsule 1 09/04/19 24 Active Additional Information Patient taking differently: 5,000 UnitsOralBID (0800,1999), Reported on 07/14/2024 Ondansetron 8 MG Oral Tablet DisintegratingInd ications:Acute myeloid leukemia in remission (HCC) Place 1 Tablet on tongue every 8 hours as needed for Nausea. dissolve on tongue. 90 Tablet 1 09/04/19 24 Active Magnesium Oxide -Mg Supplement 400 (240 Mg) MG Oral Tablet (Mag-Ox)Indicatio ns: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) Take 1 Tablet by mouth in the morning and 1 Tablet before bedtime. 180 Tablet 02/14/20 24 Active Spironolactone 25 MG Oral Tablet (Aldactone) Take 0.5 Tablets by mouth in the morning. 50 Tablet 3 02/24/20 24 Active Additional Information Patient not taking.Reported on 07/14/2024 Omeprazole 20 MG Oral Capsule Delayed Release [...] the morning. 90 Tablet 2 05/11/20 Active Additional Information Patient not taking.Reported on 07/14/2024 oxyCODONE-Acetami nophen 7.5-325 MG Oral Tablet (Percocet) Take 1 Tablet by mouth every 4 hours as needed. Active Eliquis 5 MG Oral TabletIndications :Chronic deep vein thrombosis (DVT) of femoral vein of both lower extremities (HCC) Take 1 Tablet by mouth in the morning and 1 Tablet before bedtime. 60 Tablet 5 07/14/20 Active Gabapentin 300 MG Oral Capsule (Neurontin)Indica tions:Lumbar radiculopathy Take 2 Capsules by mouth in the morning and 2 Capsules in the evening. 360 Capsule 1 07/20/20 Active documented as of this encounter (statuses as of 07/24/2024) Active Problems Problem Noted Date Diagnosed Date [...] as of this encounter (statuses as of 07/24/2024) Resolved Problems Problem Noted Date Diagnosed Date [...] 06/08/2016 07/31/2017 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 encounter 02/12/2012 04/27/2015 group home current use of ant icoagulant therapy 02/12/2012 04/27/2015 Overview (05/06/2017): ICD-10 update of inactive term Other disorder of menstruati on and other abnormal bleeding from female genital tract 09/16/2007 04/27/2015 Uterine leiomyoma 09/16/2007 04/27/2015 documented as of this encounter (statuses as of 07/24/2024) Immunizations Name Administration Dates Next Due COVID-19 [...] Tobacco: Never Alcohol Use Standard Drinks/Week Comments Not Currently 0 (1 standard drink = 0.6 oz pur e alcohol) rarely- taking pain meds PHQ-2 Answer Date Recorded PHQ Adult Total Score 1 07/13/2024 Hunger Vital Sign Answer Date Recorded Within the past 12 months, y ou worried that your food would run out before you got the money to buy more. Never true 07/13/20 24 Within the past 12 months, t he food you bought just didn't last and you didn't have money to get more. Never true 07/13/2024 Childcare Answer Date Recorded Do you feel overwhelmed with taking care of a child, family member or friend? No 07/13/2024 Does your family need help f inding childcare? (Household - for ages 0-17 years) Not on file 07/13/2024 Clothing Answer Date Recorded Have you been unable to get clothing when it was really needed? No 07/13/2024 Is your family able to get c lothes or diapers when needed? (Household - for ages 0-17 years) Not on file 07/13/2024 Personal Safety Answer Date Recorded Do you feel unsafe or have concerns for your saf ety? No 07/13/2024 Do you have concerns for you r family's safety? (Household - for ages 0-17 years) Not on file 07/13/2024 Utilities Answer Date Recorded Do you have trouble paying y our heating, water, or electric bill? No 07/13/2024 Is your family able to pay t he heat, water, or electric bill? (Household - for ages 0-17 years) Not on file 07/13/2024 Does your family have access to good internet? (Household - for ages 0-17 years) Not on file 07/13/2024 Employment Status Answer Date Recorded Are you unemployed or without regular income? No 07/13/2024 Does the household have a re gular source of income? (Household - for ages 0-17 years) Not on file 07/13/2024 Social Connections Answer Date Recorded How often do you feel lonely or isolated from th ose around you? Rarely 07/13/2024 Financial Resource Strain Answer Date R ecorded Do you have any trouble payi ng for your medications, or do you think you might in the future? No 07/13/2024 Does your family have troubl e paying for medicine? (Household - for ages 0-17 years) Not on file 07/13/2024 Transportation Needs Answer Date Record ed Do you have trouble getting a ride to medical visits or work? (Adult - for ages 18 years and over) Not on file 07/13/2024 Does your family have a hard time getting a ride to doctors visits? (Household - for ages 0-17 years) Not on file 07/13/2024 Has lack of transportation k ept you from medical appointments, meetings, work, or from getting things needed for daily living? Check all that apply. No 07/13/2024 Do you (or your family) have trouble finding or paying for a ride (transportation)? (Household - for ages 0-17 years) Not on file 07/13/2024 Housing Stability Answer Date Recorded Do you currently live in a s helter or have no steady place to sleep at night? No 07/13/2024 Do you think you are at risk of becoming homeless? (Adult - for ages 18 years and over) Not on file 07/13/2024 Does your family worry about paying for your home or becoming homeless? (Household - for ages 0-17 years) Not on file 1 09/13/2023 Are you homeless or worried that you might be in the future? No 07/13/2024 Are you (or your family) belem eless or worried that you might be in the future? (Household - for ages 0-17 years) Not on file Food Insecurity Answer Date Recorded Do you need food for this week? No 07/13/2024 Are you able to get enough f ood for your family? (Household - for ages 0-17 years) Not on file 07/13/2024 Does your family need food t his week? (Household - for ages 0-17 years) Not on file 07/13/2024 Do you always have enough fo od for your family? (Household - for ages 0-17 years) Not on file 07/13/2024 Comments No Sex and Gender Information Value [...] Assessment Author No 06/15/2016 4:50 PM EST Trump, Ca tharine D, Artist Agent * Are you blind or do you have serious difficulty seeing, even when wearing glasses? Answer Date of Assessment Author No 06/15/2016 4:50 PM EST Trump, Ca tharine D, Artist Agent * Do you have serious difficulty walking or climbing stairs? (5 years old or older) Answer Date of Assessment Author No 06/15/2016 4:50 PM EST Trump, Ca tharine D, Artist Agent * Do you have difficulty dressing or bathing? (5 years old or older) Answer Date of Assessment Author No 06/15/2016 4:50 PM EST Trump, Ca tharine D, Artist Agent * Because of a physical, mental, or emotional condition, do you have difficulty doing errands alone such as visiting a doctors office or shopping? (15 years old or older) Answer Date of Assessment Author Yes 06/15/2016 4:50 PM EST Trump, Ca tharine D, Artist Agent documented as of this encounter Mental Status * Because of a physical, mental, or emotional condition, do you have serious difficulty concentrating, remembering, or making decisions? (5 years old or older) Answer Entry Date Author No 06/15/2016 4:50 PM EST Trump, Ca tharine D, Artist Agent documented in this encounter Miscellaneous Notes * Telephone Encounter - Erin Cross OSA - 07/24/2024 2:47 PM EST Called patient and left message with new time for appt of 830am on 08/04/[address] Nielson. Asked patient to call office if this time didn't work for her schedule. * Telephone Encounter - Erin Cross OSA - 07/24/2024 11:12 AM EST Attempted to call patient to reschedule appt for 08/04/24 to different time - left message to return call to speak to Erin. documented in this encounter Plan of Treatment Upcoming Encounters Date Type Department Care Team (Late st Contact Info) Description 08/04/2024 8:30 AM EST Office Visit Hematology/Oncology [facility] [address] [facility] [place] [address] Corbin Nielson MD [address] [facility] [place] [address] 09/09/2024 11:00 AM EST Office Visit Hematology/Oncology [facility] [place] [address] [facility] [place] [address] Corbin Nielson MD [address] [facility] [place] [address] 09/16/2024 2:20 PM EST Office Visit Nephrology, [facility] [address] [facility] [place], [place] [address] Fernando Aguiar MD [address] [facility] [place] [address] 10/16/2024 10:30 AM EDT Office Visit Cardiology, [facility] [address] [place] [id number] Benjamin Bonilla MD [address] [place] [address] 12/30/2024 10:00 AM EDT Office Visit Family [facility] [address] [facility] [place] [address] Joe Peng, [address] [facility] [place] [address] Scheduled Procedures Name Priority Associated Diagnoses Date/Ti me COLONOSCOPY FLEXIBLE PROXIMAL DIAGNOSTIC Recall History of colon polyps Health Maintenance Due Date Last Done Comments Zoster Vaccines (1 of 2) 01/03/1975 Cologuard 01/03/2001 Fecal Occult Blood Test 01/03/2001 Sigmoidoscopy 01/03/2001 Adult Wellness Visit 01/03/2022 Diabetic Eye Exam 01/22/2024 01/21/2023, , 07/09/2022, [...] 02/24/2025 02/25/2024, 02/03, 03/20/2023, Additional history exists Colonoscopy 05/24/2025 05/24/2022, 05/06, 05/18/2019, Additional history exists Colorectal Cancer Screening 05/24/2025 Depression Monitoring 07/13/2025 07/13/2024 GFR 07/15/2025 07/15/2024, 06/06, 06/23/2024, Additional history exists Lipid Panel 04/17/2026 04/17/2021, [...] of Advance Directives occurred with: Not Discussed Healthcare Agents on File Name Relationship Healthcare Agent [facility] p Communication Jairo Soto Spouse Health Care Repr esentative (appointed verbally by patient or by statute hierarchy) [email or web address] Care Teams Pigeon Fancier Relationship Specialty Start Date End Date Joe Peng DO [address] [facility] [place] [address] PCP - General Family Medicine 05/19/18 documented as of this encounter
--- OUTSIDE RECORDS SUMMARY | 2024-07-28 21:15 | External Medical Summary | Summary of Care ---
Author Name Unknown Organization [facility] Address [address] [place] [address] Phone [phone] Care Team Providers Care Recruiting Consultant Name Role Phone Joe Peng DO Primary Care Provider [phone] Reason for Visit * Reason Onset Date Comments Hospital Follow-Up Hospital Follow-Up 07/14/2024 Encounter Details Date Type Department Care Team (Late st Contact Info) Description 07/14/2024 2:00 PM EST Office Visit Family [facility] [place] 200 [facility] [place] [address] Joe Peng DO 200 [facility], [place] [address] Acute metabolic encephalopathy*; Hospital discharge follow-up; Hypokalemia; Chronic deep vein thrombosis (DVT) of femoral vein of both lower extremities (HCC) Allergies Active Allergy Reactions Criticality Noted Date Comments Amoxicillin Nausea/vomiting 11/14/2015 Penicillins Nausea/vomiting Low 08/12/2007 tolerated cephalosporins in past Other reaction(s): Nausea Only Other reaction(s): "makes me nervous", Nausea documented as of this encounter (statuses as of 07/20/2024) Medications Calcium Carb-Cholecalcife rol 1000-800 MG-UNIT Oral Tablet Take 1 Tablet by mouth in the morning. Active buPROPion HCl ER (XL) 150 MG Oral Tablet Extended Release 24 Hour (Wellbutrin XL) Take 1 Tablet by mouth in the morning. 021 Active buPROPion HCl ER (XL) 300 MG Oral Tablet Extended Release 24 Hour (Wellbutrin XL) Take 1 Tablet by mouth in the morning. Active Potassium Chloride ER 20 MEQ Oral Tablet Extended ReleaseIndication s:Hypokalemia Take 1 Tablet by mouth in the morning. 90 Tablet 1 022 Active Prochlorperazine Maleate 10 MG Oral Tablet (Compazine) Take by mouth 1 Tablet every 8 hours as needed for Nausea. Every 6 hours as needed for nausea 30 Tablet 11 Active Acetaminophen 500 MG Oral Tablet Take 1 Tablet by mouth every 6 hours as needed. Active Vitamin B-12 1000 MCG Oral Tablet (Cyanocobalamin) TAKE 1 TABLET BY MOUTH EVERY DAY IN THE MORNING 90 Tablet 1 023 Active busPIRone HCl 10 MG Oral Tablet (Buspar) 2 tabs in am, 1 tab in afternoon, 2 tabs in evening Active Sodium Fluoride 5000 PPM 1.1 % Dental Paste USE DIRECTED ONCE A DAY AT BEDTIME Active Vitamin D3 1.25 MG (84468 UT) Oral Capsule Take 1 Capsule by mouth once a week. 12 Capsule 1 024 Active Additional Information Patient taking differently: 5,000 UnitsOralBID (0800,2000), Reported on 07/14/2024 Ondansetron 8 MG Oral Tablet DisintegratingInd ications:Acute myeloid leukemia in remission (HCC) Place 1 Tablet on tongue every 8 hours as needed for Nausea. dissolve on tongue. 90 Tablet 1 024 Active Gabapentin 300 MG Oral Capsule (Neurontin)Indica tions:Lumbar radiculopathy Take 2 Capsules by mouth in the morning and 2 Capsules in the evening. 360 Capsule 1 024 Active Magnesium Oxide -Mg Supplement 400 (240 Mg) MG Oral Tablet (Mag-Ox)Indicatio ns: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) Take 1 Tablet by mouth in the morning and 1 Tablet before bedtime. 180 Tablet 024 Active Spironolactone 25 MG Oral Tablet (Aldactone) Take 0.5 Tablets by mouth in the morning. 50 Tablet 3 024 Active Additional Information Patient not taking.Reported on 07/14/2024 Omeprazole 20 MG Oral Capsule Delayed Release (PriLOSEC)Indicat ions:Gastroesopha geal reflux disease without esophagitis TAKE 1 CAPSULE IN THE MORNING 90 Capsule 1 Active Metoprolol Succinate ER 25 MG Oral Tablet Extended Release 24 Hour (toPROL XL)Indications:Ta kotsubo cardiomyopathy TAKE 1/2 TABLET DAILY 45 Tablet 3 Active Levothyroxine Sodium 150 MCG Oral Tablet (Levoxyl)Indicati ons:Acquired hypothyroidism TAKE 1 TABLET IN THE MORNING AT LEAST 30 MINUTESPRIOR TO BREAKFAST OR OTHERMEDICATIONS 90 Tablet 1 Active Furosemide 40 MG Oral Tablet (Lasix)Indication s:Lower extremity edema,Mitral valve prolapse Take 1 Tablet by mouth in the morning. 90 Tablet 2 Active Additional Information Patient not taking.Reported on 07/14/2024 oxyCODONE-Acetami nophen 7.5-325 MG Oral Tablet (Percocet) Take 1 Tablet by mouth every 4 hours as needed. Active Eliquis 5 MG Oral TabletIndications :Chronic deep vein thrombosis (DVT) of femoral vein of both lower extremities (HCC) Take 1 Tablet by mouth in the morning and 1 Tablet before bedtime. 60 Tablet 5 Active Eliquis 5 MG Oral TabletIndications :Chronic deep vein thrombosis (DVT) of femoral vein of both lower extremities (HCC) Take 1 Tablet by mouth in the morning and 1 Tablet before bedtime. 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 60 Tablet 024 2023 Discontin ued(Medic ation List Clean Up) Nitrofurantoin Macrocrystal 100 MG Oral Capsule (Macrodantin) Take 1 Capsule by mouth in the morning and 1 Capsule in the evening. 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 (Household - for ages [...] AM EST documented as of this encounter Last Filed Vital Signs Vital Sign Reading Time Taken Comments Blood Pressure 98/68 07/14/2024 2:15 PM EST Pulse 79 07/14/2024 2:15 PM EST Temperature 36.4 C (97.6 F) 07/14/2024 2:15 PM ES T Respiratory Rate 16 07/14/2024 2:15 PM EST Oxygen Saturation 100% 07/14/2024 2:15 PM EST Inhaled Oxygen Concentration - - Weight 48.5 kg (107 lb) 07/14/2024 2:15 PM EST Height - - Body Mass Index 17.01 01/10/2024 10:54 AM EDT documented in this encounter Functional Status * Are you deaf or do you have serious difficulty hearing? Answer Date of Assessment Author No 06/15/2016 4:50 PM EST [place] Yip, Threat Monitoring Analyst * Are you blind or do you have serious difficulty seeing, even when wearing glasses? Answer Date of Assessment Author No 06/15/2016 4:50 PM EST Trgl[place], Ca tharine D, Threat Monitoring Analyst * Do you have serious difficulty walking or climbing stairs? (5 years old or older) Answer Date of Assessment Author No 06/15/2016 4:50 PM EST Trgloria, Ca tharine D, Threat Monitoring Analyst * Do you have difficulty dressing or bathing? (5 years old or older) Answer Date of Assessment Author No 06/15/2016 4:50 PM EST Trgloria Ca tharine D, Threat Monitoring Analyst * Because of a physical, mental, or emotional condition, do you have difficulty doing errands alone such as visiting a doctors office or shopping? (15 years old or older) Answer Date of Assessment Author Yes 06/15/2016 4:50 PM EST Phi Ca tharine Sheridan, Threat Monitoring Analyst documented as of this encounter Mental Status * Because of a physical, mental, or emotional condition, do you have serious difficulty concentrating, remembering, or making decisions? (5 years old or older) Answer Entry Date Author No 06/15/2016 4:50 PM EST Phi Ca tharine Sheridan, Threat Monitoring Analyst documented in this encounter Progress Notes * Joe Peng, DO - 07/14/2024 2:22 PM EST Subjective: Codi Soto is a 69 year old female. Chief Complaint Patient presents with Hospital Follow-Up Hospital Follow-Up HPI: Pt to the hospital from 07/11 to 07/12 for stroke like symptoms. She could not use her Jennifer and seemed confused. She forgot they had been out to eat. She had a similar episode before blamed on pain meds. They had reduced her dose but it happened again. CTA head and neck were unremarkable. MRI was negative. Neuro noted her increased risk off of Eliquis and it was restarted. She was questionable for UTI and dehydration per report. They put her on Macrobid in case. They held her lasix and aldactone for dehydration. We need to decide on restarting lasix and aldactone. We discussed her test results. We discussed a UTI or dehydration. We talked about some home discussion and discussing eating and drinking. They lost a dog also. Since the hospital she has felt tired. Sleeping well at night. She takes percocet before bed and sleeps well on it. Ankle is more of a 2 of 10. Gets up to 5 of 10. Chest feels much better. No headaches or sore throat. Currently she is off of Spironolactone and lasix. BP is low today. Will hold off still but let me know if swelling returns. We disuccsed Eliquis and getting it. She restarted PT with [facility]. Dr. Melgar is recommending a chemo holiday to Dr. Nielson. 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) Encounter for antineoplastic chemotherapy Anemia Coagulopathy (HCC) H/O allogeneic bone marrow transplant (HCC) 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) Iatrogenic diabetes mellitus (HCC) Diet-controlled diabetes mellitus (HCC) Major depressive disorder, single episode, moderate (HCC) Dehydration Chronic myeloid leukemia, BCR/ABL-positive, not having achieved remission (HCC) Chronic leukemia of unspecified cell type not having achieved remission (HCC) RASTA (generalized anxiety disorder) Gastroesophageal reflux disease without esophagitis Neutropenia (HCC) 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) Chemotherapy-induced neutropenia (HCC) 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 Prochlorperazine Maleate 10 MG Oral Tablet (Compazine) Take by mouth 1 Tablet every 8 hours as needed for Nausea. Every 6 hours as needed for nausea 30 Tablet 11 Acetaminophen 500 MG Oral Tablet Take 1 Tablet by mouth every 6 hours as needed. Vitamin B-12 1000 MCG Oral Tablet (Cyanocobalamin) TAKE 1 TABLET BY MOUTH EVERY DAY IN THE MORNING 90 Tablet 1 busPIRone HCl 10 MG Oral Tablet (Buspar) 2 tabs in am, 1 tab in afternoon, 2 tabs in evening Sodium Fluoride 5000 PPM 1.1 % Dental Paste USE DIRECTED ONCE A DAY AT BEDTIME Vitamin D3 1.25 MG (42712 UT) Oral Capsule Take 1 Capsule by mouth once a week. (Patient taking differently: Take 5,000 Units by mouth in the morning and 5,000 Units in the evening.) 12 Capsule 1 Ondansetron 8 MG Oral Tablet Disintegrating Place 1 Tablet on tongue every 8 hours as needed for Nausea. dissolve on tongue. 90 Tablet 1 Gabapentin 300 MG Oral Capsule (Neurontin) Take 2 Capsules by mouth in the morning and 2 Capsules in the evening. 360 Capsule 1 Magnesium Oxide -Mg Supplement 400 (240 Mg) MG Oral Tablet (Mag-Ox) Take 1 Tablet by mouth in the morning and 1 Tablet before bedtime. 180 Tablet 0 Omeprazole 20 MG Oral Capsule Delayed Release (PriLOSEC) TAKE 1 CAPSULE IN THE MORNING 90 Capsule 1 Metoprolol Succinate ER 25 MG Oral Tablet Extended Release 24 Hour (toPROL XL) TAKE 1/2 TABLET DAILY 45 Tablet 3 Levothyroxine Sodium 150 MCG Oral Tablet (Levoxyl) TAKE 1 TABLET IN THE MORNING AT LEAST 30 MINUTESPRIOR TO BREAKFAST OR OTHERMEDICATIONS 90 Tablet 1 Eliquis 5 MG Oral Tablet Take 1 Tablet by mouth in the morning and 1 Tablet before bedtime. 60 Tablet 2 oxyCODONE-Acetaminophen 7.5-325 MG Oral Tablet (Percocet) Take 1 Tablet by mouth every 4 hours as needed. Nitrofurantoin Macrocrystal 100 MG Oral Capsule (Macrodantin) Take 1 Capsule by mouth in the morning and 1 Capsule in the evening. Potassium Chloride ER 20 MEQ Oral Tablet Extended Release Take 1 Tablet by mouth in the morning. (Patient not taking: Reported on 07/14/2024) 90 Tablet 1 Spironolactone 25 MG Oral Tablet (Aldactone) Take 0.5 Tablets by mouth in the morning. (Patient nottaking: Reported on 07/14/2024) 50 Tablet 3 Furosemide 40 MG Oral Tablet (Lasix) Take 1 Tablet by mouth in the morning. (Patient not taking: Reported on 07/14/2024) 90 Tablet 2 No current facility-administered medications for this visit. Review of patient's allergies indicates: Allergen Reactions Amoxicillin Nausea/vomiting Penicillins Nausea/vomiting tolerated cephalosporins in past Other reaction(s): Nausea Only Other reaction(s): "makes me nervous", Nausea OBJECTIVE: BP 98/68 | Pulse 79 | Temp 97.6 F (36.4 C) (Tympanic) | Resp 16 | Wt 107 lb (48.5 kg) | LMP 03/20/2009 | SpO2 100% | BMI 17.01 kg/m | BSA 1.51 m Estimated body mass index is 17.01 kg/m as calculated from the following: Height as of 01/10/24: 5' 6.5" (1.689 m). Weight as of this encounter: 107 lb (48.5 kg). BP Readings from Last 3 Encounters: 07/14/24 98/68 07/01/24 106/66 06/01/24 104/62 Wt Readings from Last 3 Encounters: 07/14/24 107 lb (48.5 kg) 06/01/24 109 lb (49.4 kg) 05/12/24 114 lb 4.8 oz (51.8 kg) ROS: Negative except for above PHYSICAL EXAM: General: alert, healthy, and no distress Head: Normocephalic, No masses, lesions, tenderness or abnormalities Heart: regular rate & rhythm, no murmur, and no gallops Lungs: chest symmetric with normal AP diameter, no chest deformities noted, no chest wall tenderness, lungs clear to auscultation ASSESSMENT/Plan Acute metabolic encephalopathy (Primary) - DISCH MED RECON CUR MED LIS - BASIC METABOLIC PANEL; Future; Expected date: 07/14/2024 Hospital discharge follow-up - DISCH MED RECON CUR MED LIS Hypokalemia - BASIC METABOLIC PANEL; Future; Expected date: 07/14/2024 Chronic deep vein thrombosis (DVT) of femoral vein of both lower extremities (HCC) - Eliquis 5 MG Oral Tablet; Take 1 Tablet by mouth in the morning and 1 Tablet before bedtime. I spent a total of 40 minutes on the date of service in preparation, delivery, and documentation ofthe care provided to this patient, excluding any time spent on the performance of any procedure or separately billable services. She is back on Eliquis and off of chemo currently. Will need to watch carefully with this. BP too low to restart diuretics Will let me know if it starts to go up. The above was discussed and understanding was expressed. Joe Peng DO documented in this encounter Nursing Notes * Rossana Rodrigues NA - 07/14/2024 2:07 PM EST Codi Soto presents for hospital/rehab follow up. Facility: [facility] Admit Date: 07/11/2024 Discharge Date: 07/12/2024 Dx: AMS, UTI Were any tests done: CTA head w/ con, CTA neck w/ con, CT head/brain wo con, MRI brain wo/w con How are you feeling today? Patient is feeling nauseated at this time. She reports taking some Zofran this morning. Patient reports some pain in her right left rated at 2/10 at this time. Patient would like to discuss if she continues withholding the lasix and potassium. Medications & HM reviewed. documented in this encounter Plan of Treatment Upcoming Encounters Date Type Department Care Team (Late st Contact Info) Description 07/22/2024 1:00 PM EST Office Visit Palliative [facility] [phone] Gabi Tripp MD [address] [place] [address] [place] [address] 08/04/2024 2:30 PM EST Office Visit Hematology/Oncology [address] [place] [phone] Corbin Nielson MD [address] [place] [address] [place] [address] 08/28/2024 1:00 PM EST Office Visit Family [facility] [place] [address] [place] [address] Tana Gonzalez MD [address] [place] [address] 09/09/2024 11:00 AM EST Office Visit Hematology/Oncology [facility] [place] [address] [place] [phone] Corbin Nielson MD 200 [facility] [place] [address] 09/16/2024 2:20 PM EST Office Visit Nephrology, [facility] [address] [place] [address] Fernando Aguiar MD 200 [facility] [place] [address] 10/16/2024 10:30 AM EDT Office Visit Cardiology, [facility] [address] [facility] [place] [address] Benjamin Bonilla MD [address] [place] [address] 12/30/2024 10:00 AM EDT Office Visit [facility] [place] [address] [place] [address] Joe Peng, DO [address] [place], [place] [address] Scheduled Procedures Name Priority Associated Diagnoses Date/Ti [...] of this encounter Visit Diagnoses Diagnosis Acute metabolic encephalopathy- Primary Hospital discharge follow-up Other follow-up examination Hypokalemia Hypopotassemia Chronic deep vein thrombosis (DVT) of femoral vein of both lower extremities (HCC) documented in this encounter Advance Directives * Full Code [...] Agents on File Name Relationship Healthcare Agent Relationshi p Communication Jairo Soto Spouse Health Care Repr esentative (appointed verbally by patient or by statute hierarchy) [email or web address] .[email or web address] Care Teams Recruiting Consultant Relationship Specialty Start Date End Date Joe Peng DO [address] [place] [address] PCP - General Family Medicine 05/19/18 documented as of this encounter
--- OUTSIDE RECORDS SUMMARY | 2024-07-28 21:15 | External Medical Summary | Summary of Care ---
Author Name Unknown Organization [facility] Address [address] [place] [address] Phone [phone] Care Team Providers Care Circuit Recorder Name Role Phone Joe Peng DO Primary Care Provider [phone] Encounter Details Date Type Department Care Team (Late st Contact Info) Description 07/24/2024 Orders Only PATIENT PORTAL DO NOT DELETE THIS DEPT USED BY [place] [id number] Allergies Active Allergy Reactions Criticality Noted Date [...] 07/01/20 23 Active Vitamin D3 1.25 MG (83929 UT) Oral Capsule Take 1 Capsule by [...] BREAKFAST OR OTHERMEDICATIONS 90 Tablet 1 05/11/20 24 Active Furosemide 40 MG Oral Tablet (Lasix)Indication [...] 07/31/2017 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 encounter 02/12/2012 04/27/2015 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 Answer Date of Assessment Author No 06/15/2016 4:50 PM EST Trgloria Ca tharine D, Blasting Entry Specialist * Do you have serious difficulty walking or climbing stairs? (5 years old or older) Answer Date of Assessment Author No 06/15/2016 4:50 PM EST Trgloria Ca tharine D, Blasting Entry Specialist * Do you have difficulty dressing or bathing? (5 years old or older) Answer Date of Assessment Author No 06/15/2016 4:50 PM EST Phi Ca tharine D, Blasting Entry Specialist * Because of a physical, mental, or emotional condition, do you have difficulty doing errands alone such as visiting a doctors office or shopping? (15 years old or older) Answer Date of Assessment Author Yes 06/15/2016 4:50 PM EST Phi Ca tharine Sheridan, Blasting Entry Specialist documented as of this encounter Mental Status * Because of a physical, mental, or emotional condition, do you have serious difficulty concentrating, remembering, or making decisions? (5 years old or older) Answer Entry Date Author No 06/15/2016 4:50 PM EST Phi Ca tharine Sheridan, Blasting Entry Specialist documented in this encounter Plan of Treatment Upcoming Encounters Date Type Department Care Team (Late st Contact Info) Description 07/24/2024 3:20 PM EST [facility] [place] [address] [place] [address] Tana Gonzalez MD [address] [place] [address] 08/04/2024 2:30 PM EST Office [facility] [place] [address] [place] [phone] Corbin Nielson MD [address] [place] [address] 09/09/2024 11:00 AM EST Office Visit Hematology/Oncology [facility] [address] [place] [phone] Corbin Nielson MD [address] [place] [address] 09/16/2024 2:20 PM EST Office Visit Nephrology, [facility] [address] [place] [address] Fernando Aguiar MD 200 [facility] [place] [address] 10/16/2024 10:30 AM EDT Office Visit Cardiology, [facility] [address] [place] [address] Benjamin Bonilla MD [address] [place] [address] 12/30/2024 10:00 AM EDT Office Visit Family Practice [facility] [address] [place] [address] Joe Peng, DO 200 [facility] [place] [address] Scheduled Procedures Name Priority Associated Diagnoses Date/Ti [...] Relationship Healthcare Agent Relationshi p Communication Jairo Brittany Spouse Health Care Repr esentative (appointed verbally by patient or by statute hierarchy) [email or web address] Care Teams Circuit Recorder Relationship Specialty Start Date End Date Joe Peng [place] [address] PCP - General Family Medicine 05/19/18 documented as of this encounter
--- OUTSIDE RECORDS SUMMARY | 2024-07-28 21:15 | External Medical Summary | Summary of Care ---
Author Name Unknown Organization [facility] Address [address] [place] [address] Phone [phone] Care Team Providers Care Battery Builder Name Role Phone DanishJoe Sheridan HARDWICK Primary Care Provider [phone] Encounter Details Date Type Department Care Team (Late st Contact Info) Description 07/16/2024 Orders Only Hematology/Oncology [facility] [place] [address] [facility] [place] [address] Corbin Nielson MD 200 [facility] [place] [address] Allergies Active Allergy Reactions Criticality Noted Date Comments Amoxicillin Nausea/vomiting 11/14/2015 Penicillins Nausea/vomiting Low 08/12/2007 tolerated cephalosporins in past Other reaction(s): Nausea Only Other reaction(s): "makes me nervous", Nausea documented as of this encounter (statuses as of 07/16/2024) Medications Calcium Carb-Cholecalcife rol 1000-800 MG-UNIT Oral [...] hours as needed for nausea 30 Tablet 03/08/20 22 Active Acetaminophen 500 MG Oral [...] 07/01/20 23 Active Vitamin D3 1.25 MG (03823 UT) Oral Capsule Take 1 Capsule by mouth once a week. 12 Capsule 1 09/04/19 24 Active Additional Information Patient taking differently: 5,000 UnitsOralBID (0800,1999), Reported on 07/14/2024 Ondansetron 8 MG Oral Tablet DisintegratingInd ications:Acute myeloid leukemia in remission (HCC) Place 1 Tablet on tongue every 8 hours as needed for Nausea. dissolve on tongue. 90 Tablet 09/04/19 24 Active Gabapentin 300 MG Oral [...] 1/2 TABLET DAILY 45 Tablet 3 05/09/20 Active Levothyroxine Sodium 150 MCG Oral Tablet [...] before bedtime. 60 Tablet 5 07/14/20 Active documented as of this encounter (statuses as of 07/16/2024) Active Problems Problem Noted Date Diagnosed Date [...] as of this encounter (statuses as of 07/16/2024) Resolved Problems Problem Noted Date Diagnosed Date [...] as of this encounter (statuses as of 07/16/2024) Immunizations Name Administration Dates Next Due COVID-19 [...] No 07/13/2024 Are you (or your family) eblem eless or worried that you might be [...] 4:50 PM EST Trgloria, Ca tharine D, Power Plant Electrician * Are you blind or do you have serious difficulty seeing, even when wearing glasses? Answer Date of Assessment Author No 06/15/2016 4:50 PM EST Trgloria, Ca tharine D, Power Plant Electrician * Do you have serious difficulty walking or climbing stairs? (5 years old or older) Answer Date of Assessment Author No 06/15/2016 4:50 PM EST Trgloria, Ca tharine D, Power Plant Electrician * Do you have difficulty dressing or bathing? (5 years old or older) Answer Date of Assessment Author No 06/15/2016 4:50 PM EST Trump, Ca tharine D, Power Plant Electrician * Because of a physical, mental, or emotional condition, do you have difficulty doing errands alone such as visiting a doctors office or shopping? (15 years old or older) Answer Date of Assessment Author Yes 06/15/2016 4:50 PM EST Trgloria, Ca tharine D, Power Plant Electrician documented as of this encounter Mental Status * Because of a physical, mental, or emotional condition, do you have serious difficulty concentrating, remembering, or making decisions? (5 years old or older) Answer Entry Date Author No 06/15/2016 4:50 PM EST Trgloria Ca tharine D, Power Plant Electrician documented in this encounter Plan of Treatment Upcoming Encounters Date Type Department Care Team (Late st Contact Info) Description 07/22/2024 1:00 PM EST Office Visit Palliative Medicine [facility] [address] [place] [address] Gabi Tripp MD [address] [place] [address] [place] [address] 08/04/2024 2:30 PM EST Office Visit Hematology/Oncology [facility] [address] [phone] Corbin Nielson MD [address] [place] [address] 09/09/2024 11:00 AM EST Office Visit Hematology/Oncology [facility] [place] [address] [place] [phone] Corbin Nielson MD [address] [place] [address] 09/16/2024 2:20 PM EST Office Visit Nephrology, [facility] [address] [place] [address] [address] Fernando Aguiar MD [facility] [place] [address] 10/16/2024 10:30 AM EDT Office Visit Cardiology, [facility] [address] [facility] [place] [address] Benjamin Bonilla MD 132 [facility] [place] [address] 12/30/2024 10:00 AM EDT [facility] [place] [address] [place] [address] Joe Peng, DO [address] [facility] [place] [address] Scheduled Procedures Name Priority Associated Diagnoses Date/Ti [...] verbally by patient or by statute hierarchy) [email or web address] Care Teams Battery Builder Relationship Specialty Start Date End Date Joe Peng DO [address] [facility] [place] [address] PCP - General Family Medicine 05/19/18 documented as of this encounter
--- OUTSIDE RECORDS SUMMARY | 2024-07-28 21:15 | External Medical Summary | Summary of Care ---
Author Name Unknown Organization [facility] Address [address] [place] [address] Phone [phone] Care Team Providers Care Gambling Dealer Name Role Phone DanishJoe Sheridan HARDWICK Primary Care Provider [phone] Reason for Visit * Reason Onset Date Comments Appointment 06/22/2024 Terrance/Dr. Gunnar mena Encounter Details Date Type Department Care Team (Late st Contact Info) Description 06/22/2024 Telephone Hematology/Oncology [facility] 200 [facility] [place] [place] [address] Corbin Nielson MD 200 [place] [address] Appointment (Terrance/Dr. Nielson) Allergies Active Allergy Reactions Criticality Noted Date [...] mouth in the morning. 90 Tablet 1 Active Prochlorperazine Maleate 10 MG Oral Tablet [...] AT BEDTIME Active Vitamin D3 1.25 MG (78028 UT) Oral Capsule Take 1 Capsule by [...] TO BREAKFAST OR OTHERMEDICATIONS 90 Tablet 1 024 Active Furosemide 40 MG Oral Tablet (Lasix)Indication s:Lower extremity edema,Mitral valve prolapse Take 1 Tablet by mouth in the morning. 90 Tablet 2 Active Additional Information Patient not taking.Reported on 07/14/2024 Eliquis 5 MG Oral TabletIndications :Chronic deep vein thrombosis (DVT) of femoral vein of both lower extremities (HCC) Take 1 Tablet by mouth in the morning and 1 Tablet before bedtime. 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 (Household - for ages [...] 4:50 PM EST Trump, Ca tharine D, Returns Clerk * Are you blind or do you have serious difficulty seeing, even when wearing glasses? Answer Date of Assessment Author No 06/15/2016 4:50 PM EST Trump, Ca tharine D, Returns Clerk * Do you have serious difficulty walking or climbing stairs? (5 years old or older) Answer Date of Assessment Author No 06/15/2016 4:50 PM EST Trump, Ca tharine D, Returns Clerk * Do you have difficulty dressing or bathing? (5 years old or older) Answer Date of Assessment Author No 06/15/2016 4:50 PM EST Trump, Ca tharine D, Returns Clerk * Because of a physical, mental, or emotional condition, do you have difficulty doing errands alone such as visiting a doctors office or shopping? (15 years old or older) Answer Date of Assessment Author Yes 06/15/2016 4:50 PM EST Trump, Ca tharine D, Returns Clerk documented as of this encounter Mental Status * Because of a physical, mental, or emotional condition, do you have serious difficulty concentrating, remembering, or making decisions? (5 years old or older) Answer Entry Date Author No 06/15/2016 4:50 PM EST [place] Yip, Returns Clerk documented in this encounter Miscellaneous Notes * Telephone Encounter - Timothy Haynes RN - 07/16/2024 9:21 AM EST Treatment delayed x 3 weeks per office visit yesterday. Pt to follow up with Dr. Nielson 08/04. * Telephone Encounter - Mi Marie OSA - 06/22/2024 1:58 PM EST Pt rescheduled for 07/15 * Telephone Encounter - Giovanna Pringle RN - 06/22/2024 1:29 PM EST Called Jairo. Patient was discharged last week and it has been a "difficult transition". Her pain is much better, but she is very weak. A conversation held while admitted was whether holding treatment could have a positive impact on her being able to heal. Patient/ feel that this may be best and that maybe adjustments need maría made to treatment whenever she does restart. Advised that we can cancel appt with Emelyn tomorrow, can reschedule with Dr Nielson in a few weeks. Scheduling: please cancel appt with Emelyn tomorrow and call patients to reschedule with Dr Nielson for in 2-3 weeks or so. Thanks! * Telephone Encounter - Pat Eid OSA - 06/22/2024 12:54 PM EST Patient Jairo calling back and stating he received a call from [employer] that he believes was a call back regarding message below. He said a message was not left. There are no notes in charteither. Please advise and contact patient. Thank you * Telephone Encounter - Italia Ariza OSA - 06/22/2024 10:02 AM EST Patient's , Jairo, calling to discuss adjustments to patient's infusion schedule and statedthat his was recently admitted to [facility] last week and has been discharge. Would like to review what occurred there with Dr. Nielson. Please contact . documented in this encounter Plan of Treatment Upcoming Encounters Date Type Department Care Team (Late st Contact Info) Description 07/22/2024 1:00 PM EST Office Visit Palliative Medicine [facility] 200 [place] [address] Gabi Tripp MD [address] [place] [address] 08/04/2024 2:30 PM EST Office Visit Hematology/Oncology [address] [place] [address] Corbin Nielson MD [address] [place] [address] [place] [address] 09/09/2024 11:00 AM EST Office Visit Hematology/Oncology [address] [place] [address] Corbin Nielson MD [address] [place] [address] [place] [address] 09/16/2024 2:20 PM EST Office Visit Nephrology, [facility] 200 [facility] [place] [place] [address] Fernando Aguiar MD 200 [facility] [place] [place] [address] 10/16/2024 10:30 AM EDT Office Visit Cardiology, [facility] [address] [place] [address] Benjamin Bonilla MD [address] [place] [address] 12/30/2024 10:00 AM EDT Office Visit Family Practice [facility] 200 [facility] [place] [address] Joe Peng, DO 200 [facility] [place] [address] Scheduled Procedures Name Priority Associated Diagnoses Date/Ti [...] Relationship Healthcare Agent Relationshi p Communication Jairo Lewiswalski Spouse Health Care Repr esentative (appointed verbally by patient or by statute hierarchy) [email or web address] .[employer] Care Teams Gambling Dealer Relationship Specialty Start Date End Date Joe Peng DO [address] [place] [phone] PCP - General Family Medicine 05/19/18 documented as of this encounter
--- OUTSIDE RECORDS SUMMARY | 2024-07-28 21:15 | External Medical Summary | Summary of Care ---
Author Name Unknown Organization [facility] Address [address] [place] [address] Phone [phone] Care Team Providers Care Client Hr Manager Name Role Phone Joe Peng DO Primary Care Provider [phone] Reason for Visit * Reason Onset Date Comments Appointment 07/24/2024 Encounter Details Date Type Department Care Team (Late st Contact Info) Description 07/24/2024 Telephone Hematology/Oncology [facility] [place] 200 [facility] [place] [address] Corbin Nielson MD 200 [facility] [place] [address] Appointment Allergies Active Allergy Reactions Criticality Noted [...] 07/01/20 23 Active Vitamin D3 1.25 MG (22437 UT) Oral Capsule Take 1 Capsule by [...] 06/08/2016 07/31/2017 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 encounter 02/12/2012 04/27/2015 intermediate current use of ant icoagulant therapy 02/12/2012 [...] 4:50 PM EST Phi Ca tharine Sheridan, Acls Nurse * Are you blind or do you have serious difficulty seeing, even when wearing glasses? Answer Date of Assessment Author No 06/15/2016 4:50 PM EST Trgloria Ca tharine D, Acls Nurse * Do you have serious difficulty walking or climbing stairs? (5 years old or older) Answer Date of Assessment Author No 06/15/2016 4:50 PM EST Trgloria Ca tharine D, Acls Nurse * Do you have difficulty dressing or bathing? (5 years old or older) Answer Date of Assessment Author No 06/15/2016 4:50 PM EST Trgloria, Ca tharine D, Acls Nurse * Because of a physical, mental, or emotional condition, do you have difficulty doing errands alone such as visiting a doctors office or shopping? (15 years old or older) Answer Date of Assessment Author Yes 06/15/2016 4:50 PM EST Trgloria Ca tharine D, Acls Nurse documented as of this encounter Mental Status * Because of a physical, mental, or emotional condition, do you have serious difficulty concentrating, remembering, or making decisions? (5 years old or older) Answer Entry Date Author No 06/15/2016 4:50 PM EST Trgloria Ca tharine D, Acls Nurse documented in this encounter Miscellaneous Notes * [...] Description 07/24/2024 3:20 PM EST Office Visit [facility] [address] [place] [address] Tana Gonzalez MD [address] [place], [place] [address] 08/04/2024 2:30 PM EST Office Visit Hematology/Oncology [facility] [address] [place] [address] Corbin Nielson MD [address] [place] [address] 09/09/2024 11:00 AM EST Office Visit Hematology/Oncology [facility] [address] [place], [place] [address] Corbin Nielson MD [address] [place] [address] 09/16/2024 2:20 PM EST Office Visit Nephrology, [facility] [address] [place], [place] [address] Fernando Aguiar MD [address] [place], [place] [address] 10/16/2024 10:30 AM EDT Office Visit Cardiology, [facility] [address] [place] [address] Benjamin Bonilla MD [address] [place] [address] 12/30/2024 10:00 AM EDT Office Visit [facility] [address] [place] [address] Joe Peng, DO [address] [place] [address] Scheduled Procedures Name Priority Associated Diagnoses Date/Ti [...] Agents on File Name Relationship Healthcare Agent [facility] p Communication Jairo Soto Spouse Health Care Repr esentative (appointed verbally by patient or by statute hierarchy) [email or web address] Care Teams Client Hr Manager Relationship Specialty Start Date End Date Joe Peng DO [address] [place] [address] PCP - General Family Medicine 05/19/18 documented as of this encounter
--- OUTSIDE RECORDS SUMMARY | 2024-07-28 21:15 | External Medical Summary | Summary of Care ---
Author Name Unknown Organization [facility] Address [address] [place] [address] Phone [phone] Care Team Providers Care Auto Mechanics Teacher Name Role Phone Brenda Daniels DO Primary Care Provider [phone] Reason for Visit * Reason Onset Date Comments Medication Refill 07/20/2024 Encounter Details Date Type Department Care Team (Late st Contact Info) Description 07/20/2024 Refill Family Practice [facility] [place] [address] [facility] [place] [address] Brenda Daniels DO [address] [facility] [place] [address] Lumbar radiculopathy Allergies Active Allergy Reactions Criticality [...] the morning. Active buPROPion HCl ER (XL) 300 MG [...] DAY IN THE MORNING 90 Tablet 1 Active busPIRone HCl 10 MG Oral Tablet (Buspar) 2 tabs in am, 1 tab in afternoon, 2 tabs in evening Active Sodium Fluoride 5000 PPM 1.1 % Dental Paste USE DIRECTED ONCE A DAY AT BEDTIME Active Vitamin D3 1.25 MG (04760 UT) Oral Capsule Take 1 Capsule by mouth once a week. 12 Capsule 1 Active Additional Information Patient taking differently: 5,000 UnitsOralBID (0800,1999), Reported on 07/14/2024 Ondansetron 8 MG Oral Tablet DisintegratingInd ications:Acute myeloid leukemia in remission (HCC) Place 1 Tablet on tongue every 8 hours as needed for Nausea. dissolve on tongue. 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 180 Tablet Active Spironolactone 25 MG Oral Tablet (Aldactone) Take 0.5 Tablets by mouth in the morning. 50 Tablet 3 Active Additional Information Patient not taking.Reported on 07/14/2024 Omeprazole 20 MG Oral Capsule Delayed Release (PriLOSEC)Indicat ions:Gastroesopha geal reflux disease without esophagitis TAKE 1 CAPSULE IN THE MORNING 90 Capsule 1 Active Metoprolol Succinate ER 25 MG Oral Tablet Extended Release 24 Hour (toPROL XL)Indications:Ta kotsubo cardiomyopathy TAKE 1/2 TABLET DAILY 45 Tablet 3 024 Active Levothyroxine Sodium 150 MCG Oral Tablet (Levoxyl)Indicati ons:Acquired hypothyroidism TAKE 1 TABLET IN THE MORNING AT LEAST 30 MINUTESPRIOR TO BREAKFAST OR OTHERMEDICATIONS 90 Tablet 1 Active Furosemide 40 MG Oral Tablet (Lasix)Indication s:Lower extremity edema,Mitral valve prolapse Take 1 Tablet by mouth in the morning. 90 Tablet 2 024 Active Additional Information Patient not taking.Reported on 07/14/2024 oxyCODONE-Acetami nophen 7.5-325 MG Oral Tablet (Percocet) Take 1 Tablet by mouth every 4 hours as needed. Active Eliquis 5 MG Oral TabletIndications :Chronic deep vein thrombosis (DVT) of femoral vein of both lower extremities (HCC) Take 1 Tablet by mouth in the morning and 1 Tablet before bedtime. 60 Tablet 5 Active Gabapentin 300 MG Oral Capsule (Neurontin)Indica tions:Lumbar radiculopathy Take 2 Capsules by mouth in the morning and 2 Capsules in the evening. 360 Capsule 1 024 Active Gabapentin 300 MG Oral Capsule (Neurontin)Indica tions:Lumbar radiculopathy Take 2 Capsules by mouth in the morning and 2 Capsules in the evening. 360 Capsule 1 024 2023 Disconti nued(Ref ill) documented as of this encounter (statuses as [...] 06/08/2016 07/31/2017 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 encounter 02/12/2012 04/27/2015 emt intermediate current use of ant icoagulant therapy 02/12/2012 04/27/2015 Overview (05/06/2017): ICD-10 update of inactive term Other disorder of menstruati on and other abnormal bleeding from female genital tract 09/16/2007 04/27/2015 Uterine leiomyoma 09/16/2007 04/27/2015 documented as of this encounter (statuses as of 07/20/2024) Immunizations Name Administration Dates Next Due COVID-19 mRNA, LNP-s, No Pre serve, 2-Dose Series (dVisit) 05/08/2021,08/29/2020,08/08/2020 DTaP Dipth/Tet/Acell Pertussis (Infanrix), Peds 12/25/2017,10/30/2017,09/25/2017 [...] 4:50 PM EST Phi Ca tharine Sheridan, [employer] Firer * Are you blind or do you have serious difficulty seeing, even when wearing glasses? Answer Date of Assessment Author No 06/15/2016 4:50 PM EST Trgloria, Ca tharine D, [employer] Firer * Do you have serious difficulty walking or climbing stairs? (5 years old or older) Answer Date of Assessment Author No 06/15/2016 4:50 PM EST Trgloria, Ca tharine D, [employer] Firer * Do you have difficulty dressing or bathing? (5 years old or older) Answer Date of Assessment Author No 06/15/2016 4:50 PM EST Trump, Ca tharine D, [employer] Firer * Because of a physical, mental, or emotional condition, do you have difficulty doing errands alone such as visiting a doctors office or shopping? (15 years old or older) Answer Date of Assessment Author Yes 06/15/2016 4:50 PM EST Trgloria Ca tharine D, [employer] Firer documented as of this encounter Mental Status * Because of a physical, mental, or emotional condition, do you have serious difficulty concentrating, remembering, or making decisions? (5 years old or older) Answer Entry Date Author No 06/15/2016 4:50 PM EST Trgloria Ca tharine D, [employer] Firer documented in this encounter Miscellaneous Notes * Telephone Encounter - Brenda Daniels DO - 07/20/2024 4:20 PM ESTSigned Prescriptions: Disp Refills Gabapentin 300 MG Oral Capsule (Neurontin) 360 Ca*1 Sig: Take 2 Capsules by mouth in the morning and 2 Capsules in the evening. Authorizing Provider: BRENDA DANIELS * Telephone Encounter - Rossana Rodrigues NA - 07/20/2024 2:54 PM ESTPending Prescriptions: Disp Refills Gabapentin 300 MG Oral Capsule (Neurontin) 360 Ca*1 Sig: Take 2 Capsules by mouth in the morning and 2 Capsules in the evening. * Telephone Encounter - Rossana Rodrigues NA - 07/20/2024 2:52 PM EST Did you pend patient's preferred pharmacy and medication before forwarding?yes Pharmacy: [id number] [id number] [facility] Pending Prescriptions: Disp Refills Gabapentin 300 MG Oral Capsule (Neurontin)360 Ca*1 Sig: Take 2 Capsules by mouth in the morning and 2 Capsules in the evening. Last Visit: 07/14/2024 (in office), 04/03/2022 (telemedicine) Next Visit: 08/28/2024 If no future appointments scheduled, and last appointment is greater than a year ago, please schedule patient for a follow-up appointment Last date the medication was ordered: 12/19/2023 Is this request for a controlled substance?No Urine Drug Screen:No results found. However, due to the size of the patient record, not all encounters were searched. Please check Results Review for a complete set of results. Patient Phone Numbers Labs: Lab Results Component Value Date/Time CREAT 0.8 07/15/2024 11:11 AM CREAT 0.9 08/31/2020 01:01 PM POTASSIUM 4.2 07/15/2024 11:11 AM POTASSIUM 4.0 08/31/2020 01:01 PM TSH 1.11 11/08/2023 08:21 AM TSH 3.02 08/31/2020 01:04 PM LDL 75 04/17/2021 09:30 AM LDL 210 (H) 08/20/2018 08:48 AM LDL NOT APPLICABLE 08/20/2018 08:48 AM ALT 26 07/15/2024 11:11 AM ALT 28 08/31/2020 01:01 PM HGBA1C 4.7 10/04/2023 09:33 AM HGBA1C 4.7 08/15/2020 07:29 AM * Telephone Encounter - Jorge Luis Schwartz - 07/20/2024 1:46 PM ESTPending Prescriptions: Disp Refills Gabapentin 300 MG Oral Capsule (Neurontin) 360 Ca*1 Sig: Take 2Capsules by mouth in the morning and 2 Capsules in the evening. documented in this encounter Plan of Treatment Upcoming Encounters Date Type Department Care Team (Late st Contact Info) Description 07/22/2024 1:00 PM EST Office Visit Palliative Medicine [facility] [address] [place] [address] Gabi Trpip MD [address] [place] [address] [place] [address] 08/04/2024 2:30 PM EST Office Visit Hematology/Oncology [facility] [address] [place], [place] [phone] Corbin Nielson MD [address] [place] [address] 08/28/2024 1:00 PM EST Office Visit [facility] [address] [place], [place] [address] Tana Gonzalez MD [address] [place] [address] 09/09/2024 11:00 AM EST Office Visit Hematology/Oncology [facility] [address] [place] [id number] Corbin Nielson MD [address] [place] [address] 09/16/2024 2:20 PM EST Office Visit Nephrology, [facility] [address] [place], [place] [address] Fernando Aguiar MD [address] [facility] [address] [place], [place] [address] 10/16/2024 10:30 AM EDT Office Visit Cardiology, [facility] [address] [place] [address] Benjamin Bonilla MD [address] [place] [address] 12/30/2024 10:00 AM EDT Office Visit [facility] [address] [place], [place] [address] Brenda Daniels, DO [address] [place], [place] [address] Scheduled Procedures Name Priority Associated Diagnoses Date/Ti [...] unspecified documented in this encounter Advance Directives * [...] verbally by patient or by statute hierarchy) [email or web address] Care Teams Auto Mechanics Teacher Relationship Specialty Start Date End Date Brenda Daniels DO [address] [place] [address] PCP - General Family Medicine 05/19/18 documented as of this encounter
--- OUTSIDE RECORDS SUMMARY | 2024-07-28 21:16 | External Medical Summary ---
Author Name Unknown Address Unknown Organization [facility] [place] [address] Laboratory Report Ordering Provider Test Date Status APRYL MARNIELLI 07/15/2024 11:11:28 Final Observation Date Value Abnormality Reference (Units ) Status BUN 07/15/2024 11:11:28 12 6-20 (mg/dL) Final Creatinine 07/15/2024 11:11:28 0.8 0.5-1.0 (mg/dL) Final Glomerular filtration rate/1.73 sq M.predicted [Volume Rate/Area] in Serum, Plasma or Blood by Creatinine-based formula (CKD-EPI) 07/15/2024 11:11:28 79 >=60 (mL/min) Final eGFR is calculated based on the CKD-EPI 2020 equation. Sodium 07/15/2024 11:11:28 140 135-146 (m mol/L) Final Potassium 07/15/2024 11:11:28 4.2 3.5-5.1 (m mol/L) Final Cl 07/15/2024 11:11:28 103 98-107 (mm ol/L) Final CO2 07/15/2024 11:11:28 28 22-32 (mmo l/L) Final Anion gap 07/15/2024 11:11:28 9 7-15 (mmol /L) Final Glucose 07/15/2024 11:11:28 78 70-120 (mg /dL) Final Albumin 07/15/2024 11:11:28 2.7 Below low normal 3.8 -5.0 (g/dL) Final AST (Aspartate aminotransferase) 07/15/2024 11:11:28 25 10-35 (U/L) Fin al Alk Phos 07/15/2024 11:11:28 376 Above high normal 35 -130 (U/L) Final Bilirubin, Total 07/15/2024 11:11:28 0.3 <=1 .2 (mg/dL) Final Calcium 07/15/2024 11:11:28 8.7 8.4-10.2 ( mg/dL) Final Protein 07/15/2024 11:: 4.6 Below low normal 6.0 -8.3 (g/dL) Final ALT (Alanine aminotransferase) 07/15/2024 11::28 26 10-35 (U/L) Dieudonne clemens Performing Location [facility] [place] [address]
--- OUTSIDE RECORDS SUMMARY | 2024-07-28 21:16 | External Medical Summary ---
Author Name Unknown Address Unknown Organization [facility] [address] [place] [address] Laboratory Report Ordering Provider Test Date Status APRYL MARINELLI 07/15/2024 11:11:28 Final Observation Date Value Abnormality Reference (Units ) Status WBC, Total 07/15/2024 11:11:28 8.84 4.00-10.8 0 (K/uL) Final RBC 07/15/2024 11:11:28 2.79 3.85-5.15 (M/uL) Final Hemoglobin 07/15/2024 11:11:28 10.4 Below low normal 12 .0-15.3 (g/dL) Final HCT 07/15/2024 11:11:28 32.8 Below low normal 36. 0-45.2 (%) Final MCV 07/15/2024 11:11:28 117.6 81.5-97.5 (fL) Final MCH 07/15/2024 11:11:28 37.3 27.0-34.0 (pg) Final MCHC 07/15/2024 11:11:28 31.7 32.0-36.0 (g/dL) Final RDW 07/15/2024 11:11:28 12.9 11.5-15.5 (%) Final Platelets 07/15/2024 11:11:28 277 140-400 (K /uL) Final MPV 07/15/2024 11:11:28 9.2 6.6-11.1 ( fL) Final Performing Location [facility] [place] [address]
--- OUTSIDE RECORDS SUMMARY | 2024-07-28 21:16 | External Medical Summary | Summary of Care ---
Author Name Unknown Organization [facility] Address [address] [place] [address] Phone [phone] Care Team Providers Care Medical Collector Name Role Phone Joe Peng DO Primary Care Provider [phone] Reason for Visit * Reason Comments Follow Up Hospital discharge Encounter Details Date Type Department Care Team (Late st Contact Info) Description 07/15/2024 10:15 AM EST Office Visit Hematology/Oncology [facility] [place] [address] [facility] [place] [phone] Corbin Nielson MD [address] [facility] [place] [address] Leukemia cutis (HCC)*; 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) Allergies Active Allergy Reactions Criticality Noted Date Comments Amoxicillin Nausea/vomiting 11/14/2015 Penicillins Nausea/vomiting Low 08/12/2007 tolerated cephalosporins in past Other reaction(s): Nausea Only Other reaction(s): "makes me nervous", Nausea documented as of this encounter (statuses as of 07/15/2024) Medications Calcium Carb-Cholecalcife rol 1000-800 MG-UNIT Oral [...] 07/01/20 23 Active Vitamin D3 1.25 MG (41505 UT) Oral Capsule Take 1 Capsule by [...] IN THE MORNING 90 Capsule 1 03/11/20 Active Metoprolol Succinate ER 25 MG Oral [...] as of this encounter (statuses as of 07/15/2024) Active Problems Problem Noted Date Diagnosed Date [...] as of this encounter (statuses as of 07/15/2024) Resolved Problems Problem Noted Date Diagnosed Date [...] as of this encounter (statuses as of 07/15/2024) Immunizations Name Administration Dates Next Due COVID-19 mRNA, LNP-s, No Pre serve, 2-Dose Series (MiTú) 05/08/2021,08/29/2020,08/08/2020 DTaP Dipth/Tet/Acell Pertussis (Infanrix), Peds 12/25/2017,10/30/2017,09/25/2017 [...] Sign Reading Time Taken Comments Blood Pressure 91/58 07/15/2024 10:33 AM EST Pulse 80 07/15/2024 10:33 AM EST Temperature 36.3 C (97.3 F) 07/15/2024 10:[address] Respiratory Rate - - Oxygen Saturation 99% 07/15/2024 10:33 AM EST Inhaled Oxygen Concentration - - Weight 49 kg (108 lb) 07/15/2024 10:33 AM EST Height - - Body Mass Index 17.17 01/10/2024 10:54 AM EDT documented in this [...] [place] Yiprine Sheridan, Smoking Pipe Coater * Do you have difficulty dressing or bathing? (5 years old or older) Answer Date of Assessment Author No 06/15/2016 4:50 PM EST [place] Yip, Smoking Pipe Coater * Because of a physical, mental, or emotional condition, do you have difficulty doing errands alone such as visiting a doctors office or shopping? (15 years old or older) Answer Date of Assessment Author Yes 06/15/2016 4:50 PM [place] Peck, Smoking Pipe Coater documented as of this encounter Mental Status * Because of a physical, mental, or emotional condition, do you have serious difficulty concentrating, remembering, or making decisions? (5 years old or older) Answer Entry Date Author No 06/15/2016 4:50 PM [place] Peck, Smoking Pipe Coater documented in this encounter Progress Notes * Corbin Nielson MD - 07/15/2024 10:18 AM EST Outpatient Consult Note Data Source: Patient, Epic record. Data Source: Patient, Epic record. 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 Venetoclax was discontinued because of the pancytopenia. The dose decitabine was reduced by 20% on 02/15/2020 and also days were reduced to 4 days on 03/2020 because of bone marrow suppression, neutropenia and thrombocytopenia. Previous Treatment: 1. 7+ 3 induction chemotherapy (daunorubicin and cytarabine )on 05/18/2016 2. FL AG-JULIETTE re-induction on 06/21/2016 3. 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 She had induction chemotherapy in May 2016 with 3+7. Bone marrow aspirate and biopsy showed residual disease andshe received re-inducation chemotherapy with FLAG-Juliette. She had evidence of residual disease even after the 2nd induction chemotherapy and subsequently was treated with the hypomethylating therapy with the Vidaza x3 cycles on which she accomplished complete remission with persistent thrombocytopeniawhich was considered to represent autoimmune manifestation versus treatment related toxicity ratherthan active disease. Past medical history is significant for hypothyroidism, history of hypokalemia and hypomagnesia, history of Takotsubo cardiomyopathy, history of mitral valve prolapse, history of autoimmune hepatitis, history of GERD, chronic diarrhea, amputation of the left great toe. Subsequently she underwent to 05/14 MUD peripheral [...] decitabine and venotoclax. She was seen at [facility] for follow-up in 02/2019 and had a [...] no increase in blasts. Erythroid precursors show rivet spinner maturation without cytologic atypia. Core biopsy Sections (H&E and Giemsa stains): H&E and Giemsa stained sections show trabecular bone with hypocellular marrow (15-20 %). Myeloid precursors are decreased and show rivet spinner maturation. Erythroid precursors are increased and show rivet spinner maturation. Megakaryocytes are adequate with unremarkable morphology. [...] lower extremity. She was also seen at [facility] for follow-up and recommended to continue [...] appointment with the Dr. Givens at to [facility] and the decision was to continue the same treatment for now. Because of the pancytopenia venetoclax was discontinued and it was advised by the Dr. Givens from [facility]. Currently she is receiving Dacogen single agent. Skin, left clark: Leukemia cutis (see comment) 05/25/2020 Comment: Atypical mononuclear cells permeate the reticular dermis. These are (+) for CD68 and lysozyme, and negative for MPO, CD34, and CD117. She was also seen by Dr. Stout at [facility] and had bone marrow biopsy and aspirate [...] abnormal cell population in a hemodiluted specimen. She had issues with the swelling of lower extremity and was seen by the Cardiology, Nephrology and vascular. Following is from vascular surgical team "Bilateral, painful, pitting edema of L>R legs to the knees. Skin changes consistent with uncontrolled edema and possibly venous insuff Incidental finding of old LLE DVT with recanalization and chronic echoes noted on recent DVT study 12/2023. Does NOT account for RLE edema. Chronic LCFV/SFJ echoes and L pop reflux on insuff study 12/19/23 RLE no deep or superficial venous reflux to account for edema. Normal arterial flow on CELESTINE" Vascular team recommended conservative management and compressive stocking. Now she is feeling better with the decrease in the swelling and edema in the lower extremity. Interval History: We will last few weeks she is admitted the hospital multiple times. Last admission was on 07/12/2024 with confusion and she was diagnosed of UTI and currently on antibiotics. Previous admission was because of the pain and infection. She is following the wound clinic for the wound in the lower extrem ity on the right side. She is complaining of generalized weakness and fatigue. LABS/IMAGING: Results for orders placed or performed in visit on 06/25/24 BASIC METABOLIC PANEL Result Value Ref Range BUN 13 6 - 20 mg/dL CREATININE 0.9 0.5 - 1.0 mg/dL EGFR 73 >=60 mL/min SODIUM 142 135 - 146 mmol/L POTASSIUM 4.8 3.5 - 5.1 mmol/L CHLORIDE 103 98 - 107 mmol/L CO2 30 22 - 32 mmol/L ANION GAP 9 7 - 15 mmol/L GLUCOSE 90 70 - 120 mg/dL CALCIUM 9.0 8.4 - 10.2 mg/dL *Note: Due to a large number of results and/or encounters for the requested time period, some results have not been displayed. A complete set of results can be found in Results Review. Last blood test were done on 07/12/2024 during the hospital admission which shows WBC count 5.6, hemoglobin 9.3 and platelet count were to 37 differentials were in the acceptable range and monocyte count was 0.79 REVIEW OF SYSTEMS: General: No Fever, chills, [...] pain Gastrointestinal: No abdominal pain, nausea, vomiting, improving diarrhea, No rectal pain or bleeding Genitourinary: Denies Hematuria or dysuria Musculoskeletal: Generalized weakness and fatigue Psychiatric: No vegetative signs of depression Endocrine: [...] 1 Tablet by mouth in the morning. Potassium Chloride ER 20 MEQ Oral Tablet Extended Release Take 1 Tablet by mouth in the morning. (Patient not taking: Reported on 07/14/2024) 90 Tablet 1 Prochlorperazine Maleate 10 MG [...] DAY AT BEDTIME Vitamin D3 1.25 MG (60490 UT) Oral Capsule Take 1 Capsule by [...] 1 Tablet before bedtime. 180 Tablet 0 Spironolactone 25 MG Oral Tablet (Aldactone) Take 0.5 Tablets by mouth in the morning. (Patient nottaking: Reported on 07/14/2024) 50 Tablet 3 Omeprazole 20 MG Oral Capsule Delayed Release (PriLOSEC) TAKE 1 CAPSULE IN THE MORNING 90 Capsule 1 Metoprolol Succinate ER 25 MG Oral Tablet Extended Release 24 Hour (toPROL XL) TAKE 1/2 TABLET DAILY 45 Tablet 3 Levothyroxine Sodium 150 MCG Oral Tablet (Levoxyl) TAKE 1 TABLET IN THE MORNING AT LEAST 30 MINUTESPRIOR TO BREAKFAST OR OTHERMEDICATIONS 90 Tablet 1 Furosemide 40 MG Oral Tablet (Lasix) Take 1 Tablet by mouth in the morning. (Patient not taking: Reported on 07/14/2024) 90 Tablet 2 oxyCODONE-Acetaminophen 7.5-325 MG Oral Tablet (Percocet) Take 1 Tablet by mouth every 4 hours as needed. Eliquis 5 MG Oral Tablet Take 1 Tablet by mouth in the morning and 1 Tablet before bedtime. 60 Tablet 5 No current facility-administered medications for this visit. Social History Tobacco Use Smoking status: Never Smokeless tobacco: Never Vaping Use Vaping status: Never Used Substance Use Topics Alcohol use: Not Currently Comment: rarely- taking pain meds Drug use: No Review of patient's allergies indicates: Allergen Reactions Amoxicillin Nausea/vomiting Penicillins Nausea/vomiting tolerated cephalosporins in past Other reaction(s): Nausea Only Other reaction(s): "makes me nervous", Nausea PHYSICAL EXAMINATION: General Appearance: Weak appearing patient in no acute distress LMP 03/20/2009 Vitals reviewed. 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 She relapsed with skin involvement and biopsy was consistent with the leukemia cutis. Bone marrow biopsy was negative. She was started on combination of Dacogen and venetoclax. She also received radiation therapy to the right lower extremity with the disappearance of lesions. She develop lesions in the right upper extremity and received radiation therapy with good response and disappearance of the lesion. She is receiving Dacogen single agent since 12/02/2018. Venetoclax was discontinued because of the pancytopenia. She continues to have issues with the bone marrow recovery despite dose reduction of 20%. Subsequently Dacogen infusion was reduced to 4 days instead of 5 days. She also developed new skin lesion in the left lower extremity and was biopsied and pathology is consistent with leukemia cutis. She was also seen by Dr. Cobb from [facility] and had bone marrow biopsy done which was negative for leukemia. The recommendation was to continue Dacogen. Currently she is receiving Dacogen or 4 days with good tolerance. She had developed a skin lesion in the right arm and right side of the face in March 2022 which disappear in few days. Her main issue was swelling and bilateral lower extremity. She is being evaluated by the Cardiology, vascular team and Nephrology. Vascular team recommended conservative management with the compressive stocking. She also stopped taking Eliquis on the recommendation of the vascular team. In last few weeks she has been admitted multiple times with the hospital. Most admission about on 07/12/2024 because of the confusion and was found to have UTI. Currently she is on antibiotic. She also has wound in the right lower extremity and following the wound clinic. Her treatment is on hold and she received last treatment of Decadron on 05/15/2024. Treatment is on hold because of the overall general condition and frequent infection. Overall clinically she is very weak and fatigued. Recentblood test were in acceptable range with no evidence of relapse based on the blood counts. Discussed with the patient and in detail about diagnosis and prognosis reviewed all the available blood test result with them. At this point the best option is to continue to monitor the patient clinically and hold her treatment. Further management will depend on her overall general condition and wound healing in the right lower extremity. After detailed discussion they agreed with the plan. PLAN: As above. Continue hold treatment. She will return clinic for follow-up in 3 weeks with CBC and CMP. The patient voiced understanding of all of [...] further clarification, please direct questions to me.) documented in this encounter Nursing Notes * Pili Murillo, MED ASSIST - 07/15/2024 10:34 AM EST Patient identifed by name and [...] it for you? ALREADY ACTIVE Filed Vitals: 07/15/24 1033 BP: 91/58 Pulse: 80 Temp: 36.3 C (97.3 F) TempSrc: Tympanic SpO2: 99% Weight: 49 kg (108 lb) Patient was instructed to not get up [...] 1:00 PM EST Office Visit Palliative Medicine [facility] [address] [facility] [place] [phone] Gabi Tripp MD [address] [place] [address] [place] [address] 09/09/2024 11:00 AM EST Office Visit Hematology/Oncology [facility] [address] [facility] [place] [phone] Corbin Nielson MD [address] [place] [address] [place] [address] 09/16/2024 2:20 PM EST Office Visit Nephrology, [facility] [address] [facility] [place] [address] Fernando Aguiar MD [address] [facility] [place] [address] 10/16/2024 10:30 AM EDT Office Visit Cardiology, [facility] [address] [facility] [place] [address] Benjamin Bonilla MD [address] [place] [address] 12/30/2024 10:00 AM EDT Office Visit Family Practice [facility] Patti [place] [address] [facility] [place] [address] Joe Peng, DO [address] [facility] [place] [id number] Pending Results Name Type Priority Associated Diagnoses Date /Time COMPREHENSIVE METABOLIC PANEL Lab Routine Leukemia cutis (HCC) 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) 07/15/2024 11:11 AM EST Scheduled Orders Name Type Priority Associated Diagnoses Orde r Schedule CBC WITH WBC DIFFERENTIAL Lab Routine Leukemia cutis (HCC) 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) Expected: 08/05/2024, Expires: 10/13/2024 COMPREHENSIVE METABOLIC PANEL Lab Routine Leukemia cutis (HCC) 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) Expected: 08/05/2024, Expires: 10/13/2024 Scheduled Procedures Name Priority Associated Diagnoses Date/Ti [...] 2024 05/08/2021, 08/29/2020, 08/08/2020 HbA1c 04/05/2024 10/04/2023, 050 03/2023, 05/28/2022, Additional history exists Albumin/Creatinine Ratio 04/09/2024 023, 12/04/2021, 08/15/2020, Additional history exists TSH 11/07/2024 11/08/2023, 050 03/2023, 12/04/2021, Additional history exists Diabetic Foot Exam 11/27/2024 11/28/2023, 0 01/10/2021, 05/25/2019, Additional history exists Mammogram 02/24/2025 02/25/2024, 02/03, 03/20/2023, Additional history exists Colonoscopy 05/24/2025 05/24/2022, 05/06, 05/18/2019, Additional history exists Colorectal Cancer Screening 05/24/2025 GFR 06/25/2025 06/25/2024, 06/05, 05/12/2024, Additional history exists Depression Monitoring 07/13/2025 07/13/2024 Lipid Panel 04/17/2026 04/17/2021, 08/05, 05/18/2015, Additional [...] Priority Date/Time Associated Diagnosis Comments DIFFERENTIAL, AUTOMATED Routine 07/15/2024 11:11 AM EST Leukemia cutis (HCC) 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) CBC Routine 07/15/2024 11:11 AM EST Leukemia cutis (HCC) 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) CBC Routine 07/15/2024 11:11 AM EST Leukemia cutis (HCC) 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) documented in this encounter Results * (ABNORMAL) DIFFERENTIAL, AUTOMATED (07/15/2024 11:11 AM EST) WBC 8.84 4.00 - 10.80 K/uL 07/15/2024 11:25 AM EST [facility]-02 Neutrophils % 72.7 40.0 - 75.0 % 07/15/2024 11:25 AM EST [facility] 56-02 Lymphocytes % 13.6(L) 18.0 - 42.0 % 07/15/2024 11:25 AM EST [facility] [place] 56-02 Monocytes % 9.8 1.0 - 11.0 % 07/15/2024 11:25 AM EST [facility] [place] 56-02 Eosinophils % 3.4 0.0 - 6.0 % 07/15/2024 11:25 AM EST [facility] 56-02 Basophils % 0.5 0.0 - 2.0 % 07/15/2024 11:25 AM EST [facility] 56-02 Absolute Neutrophils 6.43 1.80 - 7.70 K/uL 07/15/2024 11:25 AM EST [facility] [place] 56-02 Absolute Lymphocytes 1.20 1.00 - 4.80 K/ul 07/15/2024 11:25 AM EST [facility] [place] 56-02 Absolute Monocytes 0.87 0.00 - 1.10 K/uL 07/15/2024 11:25 AM EST [facility] [place] 56-02 Absolute Eosinophils 0.30 0.00 - 0.70 K/uL 07/15/2024 11:25 AM EST [facility] 56-02 Absolute Basophils 0.04 0.00 - 0.20 K/uL 07/15/2024 11:25 AM EST [facility] [place] 56-02 Blood Venous blood specimen / Unknown Venipuncture / Unknown 07/15/2024 11:11 AM EST 07/15/2024 11:11 AM EST Corbin Nielson MD LAB BLOOD ORDERABLES Fin al Result [facility] 56- [address] [place] [address] * (ABNORMAL) CBC (07/15/2024 11:11 AM EST) WBC 8.84 4.00 - 10.80 K/uL 07/15/2024 11:25 AM EST [facility] 56 RBC 2.79 3.85 - 5.15 M/uL 07/15/2024 11:25 AM EST [place] [address] HGB 10.4(L) 12.0 - 15.3 g/dL 07/15/2024 11:25 AM [facility] 56 HCT 32.8(L) 36.0 - 45.2 % 07/15/2024 11:[address] MCV 117.6 81.5 - 97.5 fL 07/15/2024 11:[address] MCH 37.3 27.0 - 34.0 pg 07/15/2024 11:25 AM EST [place] [address] MCHC 31.7 32.0 - 36.0 g/dL 07/15/2024 11:25 AM [facility] 56 RDW 12.9 11.5 - 15.5 % 07/15/2024 11:25 AM [facility] 56 PLT 277 140 - 400 K/uL 07/15/2024 11:25 AM [facility] MPV 9.2 6.6 - 11.1 fL 07/15/2024 11:25 AM [facility] Blood Venous blood specimen / Unknown Venipuncture / Unknown 07/15/2024 11:11 AM EST 07/15/2024 11:11 AM EST Corbin Nielson MD LAB BLOOD ORDERABLES Fin al Result [facility] [address] [place] [address] documented in this encounter Visit Diagnoses Diagnosis Leukemia cutis (HCC)- Primary Other leukemia of unspecified cell type, without mention of having achieved remission 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
--- OUTSIDE RECORDS SUMMARY | 2024-07-28 21:16 | External Medical Summary ---
Author Name Unknown Address Unknown Organization K[facility] [place] [address] Laboratory Report Ordering Provider Test Date Status APRYL MARINELLI 07/15/2024 11:11:28 Final Observation Date Value Abnormality Reference (Units ) Status SYNC LEUKOCYTES IN BLOOD BY AUTOMATED COUNT 07/15/2024 11:11:28 8.84 4.00-10.80 (K/uL) Final Segs 07/15/2024 11:11:28 72.7 40.0-75.0 (%) Final Lymphs % 07/15/2024 11:11:28 13.6 Below low normal 18.0-42.0 (%) Final Monos 07/15/2024 11:11:28 9.8 1.0-11.0 (%) Final Eosinophils 07/15/2024 11:11:28 3.4 0.0-6.0 (%) Final Basos 07/15/2024 11:11:28 0.5 0.0-2.0 (%) Final Absolute Segs 07/15/2024 11:11:28 6.43 1.80-7.70 (K/uL) Final Lymphs, absolute 07/15/2024 11:11:28 1.20 1.00-4.80 (K/ul) Final Monos, Abs 07/15/2024 11:11:28 0.87 0.00-1.10 (K/uL) Final Eos, Abs 07/15/2024 11:11:28 0.30 0.00-0.70 (K/uL) Final Basos, Abs 07/15/2024 11:11:28 0.04 0.00-0.20 (K/uL) Final Performing Location [facility] [place] [address]
--- OUTSIDE RECORDS SUMMARY | 2024-07-28 21:16 | External Medical Summary | Summary of Care ---
Author Name Unknown Organization [facility] Address [address] [place] [address] Phone [phone] Care Team Providers Care Residential Sales Associate Name Role Phone Joe Peng DO Primary Care Provider [phone] Reason for Visit * Reason Comments Outpatient Testing Encounter Details Date Type Department Care Team (Late st Contact Info) Description 07/15/2024 11:10 AM EST Laboratory Laboratory [facility] [address] [place] [id number] [facility] [address]en[address] [facility], [place] [address] Acute metabolic encephalopathy; Hypokalemia Allergies Active Allergy Reactions Criticality Noted Date [...] 07/01/20 23 Active Vitamin D3 1.25 MG (81386 UT) Oral Capsule Take 1 Capsule by [...] management encounter 02/12/2012 04/27/2015 long term care pharmacist current use of ant icoagulant therapy 02/12/2012 [...] 06/15/2016 4:50 PM EST [place] Yiprine Sheridan, Steel Handler * Are you blind or do you have serious difficulty seeing, even when wearing glasses? Answer Date of Assessment Author No 06/15/2016 4:50 PM EST Phi Ca tharine D, Steel Handler * Do you have serious difficulty walking or climbing stairs? (5 years old or older) Answer Date of Assessment Author No 06/15/2016 4:50 PM EST Phi Ca tharine Sheridan, Steel Handler * Do you have difficulty dressing or bathing? (5 years old or older) Answer Date of Assessment Author No 06/15/2016 4:50 PM EST Phi Ca tharine Sheridan, Steel Handler * Because of a physical, mental, or emotional condition, do you have difficulty doing errands alone such as visiting a doctors office or shopping? (15 years old or older) Answer Date of Assessment Author Yes 06/15/2016 4:50 PM EST Phi Ca tharine Sheridan, Steel Handler documented as of this encounter Mental Status * Because of a physical, mental, or emotional condition, do you have serious difficulty concentrating, remembering, or making decisions? (5 years old or older) Answer Entry Date Author No 06/15/2016 4:50 PM EST Phi Ca tharine Sheirdan, Steel Handler documented in this encounter Plan of Treatment Upcoming Encounters Date Type Department Care Team (Late st Contact Info) Description 07/22/2024 1:00 PM EST Office Visit Palliative Medicine [facility] [address] [place] [address] Gabi Tripp MD [address] [place], [place] [address] [address] 09/09/2024 11:00 AM EST Office Visit Hematology/Oncology [facility] [address] [place] [id number] Corbin Nielson MD [address] [facility] [place] [address] 09/16/2024 2:20 PM EST Office Visit Nephrology, [facility] [address] [facility] [place] [address] Fernando Aguiar MD [address] [facility] [place] [address] 10/16/2024 10:30 AM EDT [facility] Visit [facility] [address] [facility] [place] [address] Benjamin Bonilla [place] [address] [place] [address] 12/30/2024 10:00 AM EDT Office Visit Family Practice [facility] [address] [facility] [place] [address] Joe Peng, DO [address] [facility] [place], [place] [address] Scheduled Procedures Name Priority Associated Diagnoses Date/Ti [...] this encounter Visit Diagnoses Diagnosis Acute metabolic encephalopathy Hypokalemia Hypopotassemia documented in this encounter Advance Directives * [...] Relationship Healthcare Agent Relationshi p Communication Jairo Lewsiwalski Spouse Health Care Repr esentative (appointed verbally by patient or by statute hierarchy) [email or web address] Care Teams Residential Sales Associate Relationship Specialty Start Date End Date Joe Peng DO [facility] [place][note 2] [place] [address] PCP - General Family Medicine 05/19/18 documented as of this encounter
--- NOTE | 2024-07-28 21:24 | Emergency Department Note ---
Impression & Plan Sepsis, Hypotension, Cellulitis, Acute dehydration, Hypomagnesemia, Hypocalcemia, Elevated troponin, Elevated lactic acid level, Leukocytosis ED Provider Note NAME: JONATHAN YEN AGE: 69 SEX: F : 1955 ARRIVES VIA: Ambulance INFORMANT: [Patient][ems] ED PROVIDER(S): [Adolph Gandhi MD] CHIEF COMPLAINT: Leg pain, redness HISTORY OF PRESENT ILLNESS: The patient is a 69-year-old female who presents with increasing erythema and drainage and discomfort in the left lower extremity. The patient was seen by the wound center yesterday and the right leg wounds were dressed. In the last 24 hours, things have escalated to erythema and drainage and discoloration of now the left leg The patient does admit to some vomiting occasionally, no fever or chills, no shortness of breath, chest pain or abdominal pain. She has an issue with chronic wounds of her lower extremities but usually, the right lower extremity is the issue, today it is the left. As per EMS, the patient's blood pressure was somewhat low in route however, this apparently is a chronic issue for her. PMHx/PSHx/Social Hx: See Below PHYSICAL EXAM: GENERAL: Patient is in no acute distress. Thin and frail. HEENT: No acute trauma, normocephalic atraumatic, mucous membranes quite dry, no nasal congestion. NECK: No stridor, no adenopathy, no meningismus, trachea is midline. LUNGS: Clear to auscultation bilaterally, no wheeze, no rhonchi, breath sounds equal. HEART: Without murmurs gallops or rubs, regular rate and rhythm. ABDOMEN: Soft, nontender, no peritonitis. EXTREMITIES: No cyanosis. The patient has erythema involving the entire left lower extremity from the knee to the ankle. There is some drainage and some scattered black discoloration. No real warmth. NEUROLOGIC: Oriented x 3, no acute motor or sensory deficits, no focal weakness. SKIN: No jaundice, no diaphoresis. DIFFERENTIAL DIAGNOSIS: Cellulitis, bacteremia or sepsis, dehydration, among others. EMERGENCY DEPARTMENT PROCEDURES: MEDICAL DECISION MAKING: There is a marked leukocytosis at over 30,000, this would be consistent with infection. The patient is anemic but this appears to be a chronic issue for her. There was a normal platelet count. No renal failure. Lactic acid level was elevated at 2.9, consistent with infection/sepsis. Calcium and magnesium were both low. There were some subtle liver enzyme elevation seen. Procalcitonin level was quite high consistent with a bacterial source for her symptoms. ECG shows a normal sinus rhythm with some inverted T waves in the inferior and lateral leads. No ST elevation. Cardiac enzyme testing x 1 is elevated, this troponin elevation could be secondary to cardiac injury or mismatch from her hypotension and sepsis. Chest film does not show pneumonia or CHF. On exam, the patient had an impressive left lower extremity cellulitis. She appeared dehydrated clinically. She was hypotensive. She denied dyspnea or chest pain. Given her presentation and findings, she was aggressively managed. Patient received 2 L of IV saline for hydration. This should meet criteria for the 30 cc/kg sepsis protocol based on actual body weight. Patient was given IV magnesium and IV calcium. She received IV cefepime and IV daptomycin. The patient is currently resting. She seems to be improving with treatment in the ED. She is in need of a hospital stay. She is septic from a left lower extremity cellulitis. She will require further hydration therapy, further IV antibiotic therapy, monitoring. I did speak with the patient and case management. The on-call hospitalist was consulted. Prior/Outside records/notes reviewed: Today's EMS notes describing her presentation and transport to this hospital. ECG per my interpretation: Indication was possible sepsis. The ECG shows a normal sinus rhythm with a rate of 78. There is some diffuse nonspecific ST change. There are some T wave inversions in the inferior and lateral leads. No ST elevation, no PVCs. The QTc is 492. Compared to an ECG from 07/11/2024 the T wave inversions appear new. Continuous Cardiac Monitoring per my interpretation: An order was placed for continuous cardiac monitoring. The monitor shows a rate of 84 with normal sinus rhythm. Imaging/x-ray results per my interpretation: Chest x-ray shows some chronic change, I see no pneumonia or CHF. Chronic Medical/Social conditions affecting care: History of leukemia Care/Management discussed with: Case management, the on-call hospitalist. Level of care consideration(s): After review of the information above and other included data: --I believe the patient requires escalation of care to admission Critical Care Note: I have personally spent 48 minutes of critical care time in the direct management of this patient. This includes bedside care, interpretation of diagnostic studies, and testing, discussion with consultants, patient, and family members, and other required patient management activities. This 48 minutes is in excess of all separately billable procedures. DISPOSITION: Admission Past Med/Surg History Problem List (Updated 07/28/24 @ 22:38 by Adolph Gandhi MD) Leukocytosis (Acute) Elevated lactic acid level (Acute) Elevated troponin (Acute) Hypocalcemia (Acute) Hypomagnesemia (Acute) Acute dehydration (Acute) Cellulitis (Acute) Hypotension (Acute) Sepsis (Acute) Skin tear of left hand without complication (Acute) Hypokalemia (Acute) Anemia (Acute) AMS (altered mental status) (Acute) Advanced care planning/counseling discussion Palliative care by specialist Persistent wound pain Chronic leg pain (Acute) Pain of right lower extremity Leg wound, right (Acute) Chronic leg pain (Acute) Lower extremity edema Venous ulcer of right leg (Acute) Cellulitis (Acute) Pseudomonas infection (Acute) Lab test positive for detection of COVID-19 virus (Acute) Anemia (Acute) Leukemia cutis (Acute) Encounter for pre-operative examination Leukemia cutis (Chronic) Encounter for pre-operative examination Weight loss Diarrhea Unresponsiveness (Acute) Pancytopenia (Acute) Hypotension (Acute) AML (acute myeloblastic leukemia) (Acute) H/O colonoscopy (Chronic) "06/04/2014 diverticulosis, repeat 5 yrs" S/P anal fissurectomy (Chronic) Takotsubo cardiomyopathy (Chronic) Transaminitis Hypothyroidism (Chronic) Hyperbilirubinemia AML (acute myelogenous leukemia) (Chronic) Medical History Lymphedema Acute alteration in mental status S/P radiation therapy before bone marrow transplant 12-11-2016 History of diabetes mellitus HX STEROID INDUCED DIABETES, NOW RESOLVED Low blood pressure Sepsis due to Pseudomonas species with acute organ dysfunction and septic shock this happened 100 days after the transplant CMV (cytomegalovirus infection) HX ? PT NOT SURE Autoimmune hepatitis Nausea and vomiting after administration of anesthetic agent Hypothyroidism AML (acute myeloblastic leukemia) diagnosed - CURRENT CHEMOTHERAPY/PORT RIGHT CHEST TMJ disease HX SURGERY, RESOLVED PROBLEM Depression Anxiety Migraine HX Takotsubo cardiomyopathy reason for metoprolol--follows with Dr. 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 History of amputation of toe left big toe History of hemorrhoidectomy History of colonoscopy History of esophagogastroduodenoscopy (EGD) History of vascular access device right APORT History of mandibular surgery TMJ sx--plate in right side of jaw History of tooth extraction History of wisdom tooth extraction History of cardiac cath 2013 in [place]---no stents Family History Sister Family history of diabetes mellitus Mother , age 84 Head and neck cancer COPD (chronic obstructive pulmonary disease) Father , age 75 Esophageal cancer Sister Vertigo Hypertension Sister Hypothyroidism Brother Combined hyperlipidemia Brother Colorectal cancer Brother Gout Brother No problems noted. 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 Feels Safe at Home: Yes Childhood Exposure to Second-Hand Smoke: Yes Assistive Devices: Walker Allergies Allergies Allergy/AdvReac Type Severity Reaction Status Date / Time amoxicillin AdvReac Intermediate NAUSEA/VOMI Verified 07/27/24 14:10 TING Penicillins AdvReac Intermediate NAUSEA/VOMITING/"FEELS Verified 07/27/24 14:10 NERVOUS" Home Meds Home Medications Medication Instructions Recorded Confirmed acetaminophen 500 mg tablet 500 mg PO Q6H PRN Pain 08/22/23 07/27/24 (Tylenol Extra Strength) bupropion HCl 150 mg 24 hr tablet, 150 mg PO QAM 08/22/23 07/27/24 extended release bupropion HCl 300 mg 24 hr tablet, 300 mg PO QAM 08/22/23 07/27/24 extended release buspirone 10 mg tablet See Rx Instructions .Route .COMPLEX 08/22/23 07/27/24 calcium 1,000 mg (as 1 tab PO QAM 08/22/23 07/27/24 carbonate)-vitamin D3 20 mcg (800 unit) tablet cyanocobalamin (vitamin B-12) 1,000 mcg PO QAM 08/22/23 07/27/24 1,000 mcg tablet (Vitamin B-12) levothyroxine 150 mcg tablet 150 mcg PO DAILYBB 08/22/23 07/27/24 lorazepam 0.5 mg tablet 0.5 mg PO DAILY PRN Anxiety 08/22/23 07/27/24 magnesium oxide 800 mg PO BID 08/22/23 07/27/24 metoprolol succinate 25 mg 12.5 mg PO QAM 08/22/23 07/27/24 tablet,extended release 24 hr omeprazole 20 mg capsule,delayed 20 mg PO QAM 08/22/23 07/27/24 release ondansetron 8 mg disintegrating 8 mg PO Q8H PRN Nausea And Vomiting 08/22/23 07/27/24 tablet potassium chloride 20 mEq 20 meq PO DAILY 08/22/23 07/27/24 tablet,extended release prochlorperazine maleate 10 mg 10 mg PO Q8H PRN Nausea 08/22/23 07/27/24 tablet (Compazine) ergocalciferol (vitamin D2) 1,250 50,000 unit PO WK 12/25/23 07/27/24 mcg (50,000 unit) capsule fluoride (sodium) 1.1 % dental 1 applic dental HS 12/25/23 07/27/24 paste (Sodium Fluoride 5000 Dry Mouth) furosemide 40 mg tablet (Lasix) 40 mg PO QAM 12/25/23 07/27/24 spironolactone 25 mg tablet 12.5 mg PO QAM PRN swelling 03/14/24 07/27/24 apixaban 5 mg tablet (Eliquis) 5 mg PO BID 04/16/24 07/27/24 Previous Rx's Medication Instructions Recorded gabapentin 300 mg capsule 600 mg (2 x 300 mg) PO TID #0 caps 06/18/24 oxycodone-acetaminophen 7.5 mg-325 1 tab PO Q6H PRN pain 1 month #120 06/22/24 mg tablet (Endocet) tabs Results & Data (ED) Vital Signs Vital Signs - 24 hr 07/28/24 21:14 07/28/24 21:16 07/28/24 21:18 Temperature 36.7 C Temperature Source Oral Pulse Rate 87 82 Pulse Rate from SpO2 Sensor Respiratory Rate 12 Respiratory Effort / Characteristics Non-Labored Spontaneous Respiratory Depth Normal Respiratory Pattern Regular Blood Pressure 79/43 L 79/43 L Blood Pressure Mean 58 55 Pulse Oximetry 99 Oxygen Delivery Method Room Air Sepsis Recent Fever Within 48 Hours No Sepsis New/Unexplained Change in Mental Status N/A Sepsis Action Taken by Nursing No Action Required 07/28/24 21:18 07/28/24 21:45 07/28/24 22:00 Temperature Temperature Source Pulse Rate 86 82 Pulse Rate from SpO2 Sensor 82 Respiratory Rate 26 H 14 Respiratory Effort / Characteristics Respiratory Depth Respiratory Pattern Blood Pressure 91/54 L 92/58 L Blood Pressure Mean 71 69 Pulse Oximetry 99 95 100 Oxygen Delivery Method Room Air Room Air Room Air Sepsis Recent Fever Within 48 Hours Sepsis New/Unexplained Change in Mental Status Sepsis Action Taken by Nursing 07/28/24 22:15 07/28/24 22:45 07/28/24 23:00 Temperature Temperature Source Pulse Rate 79 82 81 Pulse Rate from SpO2 Sensor 82 Respiratory Rate 12 14 16 Respiratory Effort / Characteristics Respiratory Depth Respiratory Pattern Blood Pressure 84/49 L 88/57 L 84/49 L Blood Pressure Mean 60 63 62 Pulse Oximetry 99 97 97 Oxygen Delivery Method Room Air Sepsis Recent Fever Within 48 Hours Sepsis New/Unexplained Change in Mental Status Sepsis Action Taken by Prison Medications Current Medication List: was personally reviewed by me Laboratory Data Attestation: I reviewed the patient's lab results. 07/28/24 21:30 07/28/24 21:30 Lab Results 07/28/24 Range/Units 21:30 WBC 30.76 H* (4.8-10.8) K/ul RBC 2.66 L (4.20-5.40) M/uL Hgb 10.0 L (12.0-16.0) g/dl Hct 28.5 L (37.0-47.0) % MCV 107.1 H (80.0-100.0) fL MCH 37.6 H (25.0-34.0) pg MCHC 35.1 (32.0-36.0) g/dL RDW Std Deviation 52.6 H (36.4-46.3) fL RDW Coeff of Selam 13.3 (11.5-14.5) % Plt Count 166 (130-400) K/uL MPV 9.7 (9.4-12.4) fL Immature Gran % (Auto) 1.6 % Neut % (Auto) 87.2 % Lymph % (Auto) 4.7 % [place] % (Auto) 6.4 % Eos % (Auto) 0.0 % Baso % (Auto) 0.1 % Neut # (Auto) 26.83 H (1.40-6.50) K/uL Lymph # (Auto) 1.44 (1.20-3.40) K/uL [place] # (Auto) 1.97 H (0.11-0.59) K/uL Eos # (Auto) 0.01 (0.00-0.50) K/uL Baso # (Auto) 0.03 (0.00-0.20) K/uL Immature Gran # (Auto) 0.48 H (0.01-0.20) K/uL Target Cells 1+ PT 14.0 H (9.0-12.0) Seconds INR 1.3 H (0.9-1.1) APTT 137 H* (21-31) Seconds PTT Ratio > 4.9 Sodium 138 (136-145) mmol/L Potassium 3.7 (3.5-5.1) mmol/L Chloride 106 (98-107) mmol/L Carbon Dioxide 25 (21-32) mmol/L Anion Gap 7 (3-11) BUN 15 (6-23) mg/dl Creatinine 1.09 (0.6-1.2) mg/dl Est Cr Clr Drug Dosing 34.9 ml/min eGFR 55.34 BUN/Creatinine Ratio 13.8 (10-20) Glucose 76 (70-99(Fasting)) mg/dl Lactate 2.9 H* (0.4-2.0) mmol/L Calcium 7.8 L (8.6-10.3) mg/dl Magnesium 1.2 L (1.7-2.4) mg/dl Total Bilirubin 0.9 (0.2-1.0) mg/dl Direct Bilirubin 0.2 (0-0.2) mg/dl AST 64 H (13-39) U/L ALT 32 (7-52) U/L Alkaline Phosphatase 271 H (34-104) U/L Troponin I High Sens 197.1 H* (0-14) pg/ml Total Protein 4.1 L (6.0-8.3) gm/dl Albumin 2.3 L (3.4-5.0) gm/dl Procalcitonin 29.40 H (0-0.5) ng/ml Administered Medications Magnesium Sulfate/Dextrose (Magnesium Sulfate / D5w) 1 gm in 100 mls @ 100 mls/hr IV Q1H VIRAJ Stop: 07/29/24 00:06 Last Admin: 07/28/24 22:22 Dose: 100 mls/hr Documented By: MATI Discontinued Medications Sodium Chloride (Nss) 1,000 mls @ 999 mls/hr IV .Q1H1M VIRAJ Stop: 07/28/24 22:30 Last Infusion: 07/28/24 22:42 Dose: Infused Documented By: Admin: 07/28/24 21:40 Dose: 999 mls/hr Documented By: MATI Cefepime HCl (Maxipime 2000mg) 2,000 mg in 20 mls @ 5 mls/min IV NOW STA; Protocol Stop: 07/28/24 21:21 Last Admin: 07/28/24 22:27 Dose: 5 mls/min Documented By: MATI Sodium Chloride (Nss) 1,000 mls @ 999 mls/hr IV .Q1H1M ONE Stop: 07/28/24 23:01 Last Admin: 07/28/24 22:23 Dose: 999 mls/hr Documented By: MATI Calcium Gluconate () 1,000 mg in 60 mls @ 240 mls/hr IV NOW STA Stop: 07/28/24 22:21 Last Infusion: 07/28/24 22:52 Dose: Infused Documented By: Admin: 07/28/24 22:22 Dose: 240 mls/hr Documented By: MATI Imaging Data Radiologist's Impression: Chest X-Ray 07/28/24 21:18 Exam(s): XR CXR 1 VIEW EXAM: XR Chest, 1 View CLINICAL HISTORY: Sepsis. TECHNIQUE: Frontal view of the chest. COMPARISON: Portable chest view dated 07/11/2024 FINDINGS: Lungs: No focal airspace consolidation. The pulmonary vasculature demonstrates no significant radiographic abnormality. Pleural space: Unremarkable. No pneumothorax. No large pleural effusion. Heart: Unremarkable. No cardiomegaly. Mediastinum: The mediastinal contours are stable, accounting for slight obliquity. No tracheal deviation. Bones/joints: Unremarkable. No acute fracture. Tubes, lines and devices: A CT compatible right internal jugular approach portacatheter is stable in position with the tip in the superior vena cava. IMPRESSION: No acute cardiopulmonary process or significant alteration from the prior examination. Electronically signed by: Chandana Aguirre MD 07/28/24 23:17 PM Discharge Plan Visit Data Chief Complaint: Leg Injury/Pain Stated Complaint: L LEG PAIN, SWELLING, REDNESS ED Provider: Adolph Gandhi Discharge Problem: Sepsis, Hypotension, Cellulitis, Acute dehydration, Hypomagnesemia, Hypocalcemia, Elevated troponin, Elevated lactic acid level, Leukocytosis Patient Disposition: Admitted As Inpatient Condition: Serious Forms Stand Alone Forms: [facility] [place] [employer] Prescriptions Prescriptions: No Action Eliquis 5 mg tablet 5 mg PO BID oxycodone-acetaminophen [Endocet] 7.5-325 mg tablet 1 tab PO Q6H PRN (Reason: pain) 30 Days Qty: 120 0RF cyanocobalamin (vitamin B-12) [Vitamin B-12] 1,000 mcg tablet 1,000 mcg PO QAM ondansetron 8 mg tablet,disintegrating 8 mg PO Q8H PRN (Reason: Nausea And Vomiting) levothyroxine 150 mcg tablet 150 mcg PO DAILYBB omeprazole 20 mg capsule,delayed release(DR/EC) 20 mg PO QAM metoprolol succinate 25 mg tablet extended release 24 hr 12.5 mg PO QAM potassium chloride 20 mEq Tablet Extended Release 20 meq PO DAILY Hold Instructions: Hold for now, discuss continued use with PCP calcium carbonate-vitamin D3 1,000 mg-20 mcg (800 unit) Tablet 1 tab PO QAM prochlorperazine maleate [Compazine] 10 mg Tablet 10 mg PO Q8H PRN (Reason: Nausea) acetaminophen [Tylenol Extra Strength] 500 mg Tablet 500 mg PO Q6H PRN (Reason: Pain) lorazepam 0.5 mg Tablet 0.5 mg PO DAILY PRN (Reason: Anxiety) buspirone 10 mg tablet See Rx Instructions .ROUTE .COMPLEX Rx Instructions: TAKES 20 MG QAM & QHS, THEN 10 MG Q AFTERNOON. bupropion HCl 300 mg tablet extended release 24 hr 300 mg PO QAM Rx Instructions: TOTAL DOSE 450 MG--TAKES WITH 150 MG TAB. bupropion HCl 150 mg tablet extended release 24 hr 150 mg PO QAM Rx Instructions: TOTAL DOSE 450 MG--TAKES WITH 300 MG TAB. magnesium oxide 400 mg magnesium Tablet 800 mg PO BID furosemide [Lasix] 40 mg Tablet 40 mg PO QAM Hold Instructions: Hold for now given dehydration, discuss continued use with PCP fluoride (sodium) [Sodium Fluoride 5000 Dry Mouth] 1.1 % Paste 1 applic DENTAL HS ergocalciferol (vitamin D2) 1,250 mcg (50,000 unit) capsule 50,000 unit PO WK Rx Instructions: MONDAYS spironolactone 25 mg tablet 12.5 mg PO QAM PRN (Reason: swelling) Hold Instructions: Hold for now given dehydration, discuss continued use with PCP gabapentin 300 mg capsule 600 mg PO TID Qty: 0 0RF Referrals Referrals: Joe Peng DO [Primary Care Provider] - Discharge Problem: Sepsis Qualifiers: Sepsis type: sepsis due to unspecified organism Sepsis acute organ dysfunction status: without acute organ dysfunction Qualified Code(s): A41.9 - Sepsis, unspecified organism Hypotension Qualifiers: Hypotension type: unspecified hypotension type Qualified Code(s): I95.9 - Hypotension, unspecified Cellulitis Qualifiers: Site of cellulitis: extremity Site of cellulitis of extremity: lower extremity Laterality: left Qualified Code(s): L03.116 - Cellulitis of left lower limb Leukocytosis Qualifiers: Leukocytosis type: unspecified Qualified Code(s): D72.829 - Elevated white blood cell count, unspecified
[2024-07-28] MEDS: SODIUM CHLORIDE 0.9% 1,000 ML IV SCH (21:40)
[2024-07-28 21:57] LABS: Hematocrit (blood only) 28.5 % (37.0-47.0); Mean Corpuscular Hemoglobin 37.6 pg (25.0-34.0); Mean Corpuscular Hgb Conc 35.1 g/dL (32.0-36.0); Mean Corpuscular Volume 107.1 fL (80.0-100.0); Mean Platelet Volume 9.7 fL (9.4-12.4); Platelet Count 166 K/uL (130-400); RDW Coefficient of Variation 13.3 % (11.5-14.5); RDW Standard Deviation 52.6 fL (36.4-46.3); Red Blood Count 2.66 M/uL (4.20-5.40); White Blood Count 30.76 K/ul (4.8-10.8)
[2024-07-28 22:03] LABS: Albumin Level 2.3 gm/dl (3.4-5.0); BUN Creatinine Ratio 13.8 (10-20); Bilirubin Direct 0.2 mg/dl (0-0.2); Bilirubin,Total 0.9 mg/dl (0.2-1.0); Calcium 7.8 mg/dl (8.6-10.3); Creatinine Clr Calc Pharmacy 34.9 ml/min; Magnesium 1.2 mg/dl (1.7-2.4); Potassium 3.7 mmol/L (3.5-5.1); Total Protein 4.1 gm/dl (6.0-8.3)
[2024-07-28 22:14] LABS: Troponin I High Sensitivity 197.1 pg/ml (0-14)
[2024-07-28] MEDS: MAGNESIUM SULFATE / D5W 1 GM/100 ML BAG IV SCH (22:22)
[2024-07-28] MEDS: CALCIUM GLUCONATE 1,000 MG/60 ML BAG IV STA (22:22)
[2024-07-28] MEDS: SODIUM CHLORIDE 0.9% 1,000 ML IV ONE (22:23)
[2024-07-28] MEDS: CEFEPIME 2000MG 2,000 MG/20 ML SYR IV STA (22:27)
[2024-07-28 22:29] LABS: INR 1.3 (0.9-1.1)
[2024-07-28 22:37] LABS: Basophils # (auto) 0.03 K/uL (0.00-0.20); Basophils % (auto) 0.1 %; Eosinophils # (auto) 0.01 K/uL (0.00-0.50); Immature Granulocytes # (auto) 0.48 K/uL (0.01-0.20); Immature Granulocytes % (auto) 1.6 %; Lymphocytes # (auto) 1.44 K/uL (1.20-3.40); Lymphocytes % (auto) 4.7 %; Monocytes # (auto) 1.97 K/uL (0.11-0.59); Monocytes % (auto) 6.4 %; Neutrophils # (auto) 26.83 K/uL (1.40-6.50); Neutrophils % (auto) 87.2 %; Target Cells 1+
[2024-07-28 22:50] LABS: Partial Thromboplastin Ratio > 4.9
[2024-07-28 22:51] LABS: Partial Thromboplastin Time 137 Seconds (21-31)
--- NOTE | 2024-07-28 23:17 | XRay Report ---
Exam(s): XR CXR 1 VIEW EXAM: XR Chest, 1 View CLINICAL HISTORY: Sepsis. TECHNIQUE: Frontal view of the chest. COMPARISON: Portable chest view dated 07/11/2024 FINDINGS: Lungs: No focal airspace consolidation. The pulmonary vasculature demonstrates no significant radiographic abnormality. Pleural space: Unremarkable. No pneumothorax. No large pleural effusion. Heart: Unremarkable. No cardiomegaly. Mediastinum: The mediastinal contours are stable, accounting for slight obliquity. No tracheal deviation. Bones/joints: Unremarkable. No acute fracture. Tubes, lines and devices: A CT compatible right internal jugular approach portacatheter is stable in position with the tip in the superior vena cava. IMPRESSION: No acute cardiopulmonary process or significant alteration from the prior examination. Electronically signed by: Chandana Aguirre MD 07/28/24 23:17 PM
[2024-07-29] MEDS: DAPTOmycin 350 MG in SYRINGE 0 ML IV STA (00:50)
[2024-07-29] MEDS: oxyCODONE/ACETAMINOPHEN 5mg/325mg TAB PO STA (00:58)
[2024-07-29] MEDS: MAGNESIUM SULFATE / D5W 1 GM/100 ML BAG IV SCH (02:33)
[2024-07-29] MEDS: SODIUM CHLORIDE 0.9% 500 ML IV ONE ×2 (02:33→11:46)
[2024-07-29] MEDS: MEROPENEM 500 MG in SYRINGE 0 ML IV SCH (03:37)
[2024-07-29] MEDS: SODIUM CHLORIDE 0.9% 1,000 ML IV SCH (03:55)
--- NOTE | 2024-07-29 04:10 | History & Physical Report ---
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 Patient has chronic venous ulcer in the right lower extremity in the clark region and she is following with the wound care. The wound was wrapped couple of days ago by wound care. She takes Percocet for the pain in the right lower extremity. But today morning she noticed severe pain in the left lower extremity and also it has become red and it was getting worse so she came to the ER. Her left lower extremity from knee down is erythematous and slightly swollen and there is some blackish spots above the ankle in the medial aspect. Patient was hypotensive in the ER requiring fluid bolus. Her WBC is 30. Initial lactate 2.9 repeat is 3 and repeat again is 2.6, troponin is 186. Procalcitonin 29.4. Patient alert and oriented able to give her history. She seems comfortable. Denies any headache. No runny nose or sore throat. Dry mouth. No cough. States appetite is not that great. But tries to eat. No chest pain or shortness of breath. Currently no nausea. Denies any abdominal pain. Normal bowel and bladder movements. Severe sepsis Cellulitis of the left lower extremity Has chronic venous ulcer on the right lower extremity which looks dry Lactic acid 3 and repeat is 2.6 WBC 30 Got fluid bolus Continue fluids 125 mill per hour Received cefepime and Dapto in ER Will continue with her meropenem and Dapto Will check cortisol levels Recheck lactic acid Closely monitor hemodynamics Will follow the cultures Will also follow Doppler studies of bilateral lower extremities Elevated troponin Possible non-ST elevated SD EKG changes inferolateral leads Patient denies chest pain shortness of breath Initial troponin 197 and repeat is 188 Will follow serial cardiac enzymes and echo Patient is on Eliquis Cardiology consult Hypomagnesia Replaced Continue home supplement Follow repeat labs Hypocalcemia Calcium 7.8 Albumin 2.4 got a dose of calcium gluconate in the ER follow labs Diet controlled diabetes HbA1c 4.4 in March 2024 Refractory AML and leukemia cutis Currently chemotherapy on hold for lower extremity wounds and overall general condition Follow-up with heme-onc Lower bilateral lower extremity edema/lymphedema Possibly from medications, DVT, malnutrition and mitral valve prolapse Diuretics and compression stocks were recommended Holding diuretics as patient currently in sepsis Will monitor. Elevated alkaline phosphatase Seems chronic Will monitor Chronic DVT and superficial thrombus On Eliquis History of mitral valve prolapse History of Takotsubo cardiomyopathy Echo done on 07/12/2024 EF 60 to 65% Depression General Anxiety disorder Will continue home medications Hypothyroidism On Synthyroid Chronic pain in right lower extremity On Percocet as needed at home DVT prophylaxis On Eliquis Disposition Telemetry CODE STATUS full code as per discussion with the patient History of Present Illness Chief Complaint: Severe sepsis Primary Care Provider: Joe Peng DO 69-year-old female with past medical history significant for diet-controlled diabetes, hypothyroidism, history of hypokalemia and hypomagnesia, history of Takotsubo cardiomyopathy, history of mitral valve prolapse, history of autoimmune hepatitis, history of GERD, chronic diarrhea, amputation of the left great toe, history of syncope, history of AML, AML relapse , history of leukemia cutis, chemotherapy induced neutropenia, history of ITP, 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 Patient has chronic venous ulcer in the right lower extremity in the clark region and she is following with the wound care. The wound was wrapped couple of days ago by wound care. She takes Percocet for the pain in the right lower extremity. But today morning she noticed severe pain in the left lower extremity and also it has become red and it was getting worse so she came to the ER. Her left lower extremity from knee down is erythematous and slightly swollen and there is some blackish spots above the ankle in the medial aspect. Patient was hypotensive in the ER requiring fluid bolus. Her WBC is 30. Initial lactate 2.9 repeat is 3 and repeat again is 2.6, troponin is 186. Procalcitonin 29.4. Patient alert and oriented able to give her history. She seems comfortable. Denies any headache. No runny nose or sore throat. Dry mouth. No cough. States appetite is not that great. But tries to eat. No chest pain or shortness of breath. Currently no nausea. Denies any abdominal pain. Normal bowel and bladder movements. Past medical history. As mentioned above Past surgical history. Amputation of the left toe. Bone marrow aspiration. Colonoscopy. EGD. Injection of lumbosacral spine. Removal of [place] catheter. TMJ arthroscopy. Social history. . No smoking. Alcohol rarely. No drug use. Family history. Maternal cousin had breast cancer in 30s. Maternal grandmother had breast cancer. Mother had head and neck cancer.COPD. Carotid stenosis. Stroke. Father had esophageal cancer. Heart attack. Hypertension. Sister has thyroid disorder. Allergies Allergy/AdvReac Type Severity Reaction Status Date / Time amoxicillin AdvReac Intermediate NAUSEA/VOMI Verified 07/27/24 14:10 TING Penicillins AdvReac Intermediate NAUSEA/VOMITING/"FEELS Verified 07/27/24 14:10 NERVOUS" Home Medications Medication Instructions Recorded Confirmed Type acetaminophen 500 mg tablet 500 mg PO Q6H PRN Pain 08/22/23 07/28/24 History (Tylenol Extra Strength) bupropion HCl 150 mg 24 hr tablet, 150 mg PO QAM 08/22/23 07/28/24 History extended release bupropion HCl 300 mg 24 hr tablet, 300 mg PO QAM 08/22/23 07/28/24 History extended release buspirone 10 mg tablet See Rx Instructions .Route .COMPLEX 08/22/23 07/28/24 History calcium 1,000 mg (as 1 tab PO QAM 08/22/23 07/28/24 History carbonate)-vitamin D3 20 mcg (800 unit) tablet cyanocobalamin (vitamin B-12) 1,000 mcg PO QAM 08/22/23 07/28/24 History 1,000 mcg tablet (Vitamin B-12) levothyroxine 150 mcg tablet 150 mcg PO DAILYBB 08/22/23 07/28/24 History lorazepam 0.5 mg tablet 0.5 mg PO DAILY PRN Anxiety 08/22/23 07/28/24 History magnesium oxide 800 mg PO BID 08/22/23 07/28/24 History metoprolol succinate 25 mg 12.5 mg PO QAM 08/22/23 07/28/24 History tablet,extended release 24 hr omeprazole 20 mg capsule,delayed 20 mg PO QAM 08/22/23 07/28/24 History release ondansetron 8 mg disintegrating 8 mg PO Q8H PRN Nausea And Vomiting 08/22/23 07/28/24 History tablet potassium chloride 20 mEq 20 meq PO DAILY 08/22/23 07/28/24 History tablet,extended release prochlorperazine maleate 10 mg 10 mg PO Q8H PRN Nausea 08/22/23 07/28/24 History tablet (Compazine) ergocalciferol (vitamin D2) 1,250 300 unit PO TID 12/25/23 07/28/24 History mcg (50,000 unit) capsule fluoride (sodium) 1.1 % dental 1 applic dental HS 12/25/23 07/28/24 History paste (Sodium Fluoride 5000 Dry Mouth) furosemide 40 mg tablet (Lasix) 40 mg PO QAM 12/25/23 07/28/24 History spironolactone 25 mg tablet 12.5 mg PO QAM PRN swelling 03/14/24 07/28/24 History apixaban 5 mg tablet (Eliquis) 5 mg PO BID 04/16/24 07/28/24 History gabapentin 300 mg capsule 600 mg (2 x 300 mg) PO TID #0 caps 06/18/24 07/28/24 Rx oxycodone-acetaminophen 7.5 mg-325 1 tab PO Q6H PRN pain 1 month #120 06/22/24 07/28/24 Rx mg tablet (Endocet) tabs Past Med/Surg History Problem List (Updated 07/29/24 @ 04:17 by Garland Dooley MD) Severe sepsis Leukocytosis (Acute) Elevated lactic acid level (Acute) Elevated troponin (Acute) Hypocalcemia (Acute) Hypomagnesemia (Acute) Acute dehydration (Acute) Cellulitis (Acute) Hypotension (Acute) Sepsis (Acute) Skin tear of left hand without complication (Acute) Hypokalemia (Acute) Anemia (Acute) AMS (altered mental status) (Acute) Advanced care planning/counseling discussion Palliative care by specialist Persistent wound pain Chronic leg pain (Acute) Pain of right lower extremity Leg wound, right (Acute) Chronic leg pain (Acute) Lower extremity edema Venous ulcer of right leg (Acute) Cellulitis (Acute) Pseudomonas infection (Acute) Lab test positive for detection of COVID-19 virus (Acute) Anemia (Acute) Leukemia cutis (Acute) Encounter for pre-operative examination Leukemia cutis (Chronic) Encounter for pre-operative examination Weight loss Diarrhea Unresponsiveness (Acute) Pancytopenia (Acute) Hypotension (Acute) AML (acute myeloblastic leukemia) (Acute) H/O colonoscopy (Chronic) "06/04/2014 diverticulosis, repeat 5 yrs" S/P anal fissurectomy (Chronic) Takotsubo cardiomyopathy (Chronic) Transaminitis Hypothyroidism (Chronic) Hyperbilirubinemia AML (acute myelogenous leukemia) (Chronic) Medical History Lymphedema Acute alteration in mental status S/P radiation therapy before bone marrow transplant 12-11-2016 History of diabetes mellitus HX STEROID INDUCED DIABETES, NOW RESOLVED Low blood pressure Sepsis due to Pseudomonas species with acute organ dysfunction and septic shock this happened 100 days after the transplant CMV (cytomegalovirus infection) HX ? PT NOT SURE Autoimmune hepatitis Nausea and vomiting after administration of anesthetic agent Hypothyroidism AML (acute myeloblastic leukemia) diagnosed - CURRENT CHEMOTHERAPY/PORT RIGHT CHEST TMJ disease HX SURGERY, RESOLVED PROBLEM Depression Anxiety Migraine HX Takotsubo cardiomyopathy reason for metoprolol--follows with Dr. 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 History of amputation of toe left big toe History of hemorrhoidectomy History of colonoscopy History of esophagogastroduodenoscopy (EGD) History of vascular access device right APORT History of mandibular surgery TMJ sx--plate in right side of jaw History of tooth extraction History of wisdom tooth extraction History of cardiac cath 2012 in [place]---no stents Family History Sister Family history of diabetes mellitus Mother , age 84 Head and neck cancer COPD (chronic obstructive pulmonary disease) Father , age 75 Esophageal cancer Sister Vertigo Hypertension Sister Hypothyroidism Brother Combined hyperlipidemia Brother Colorectal cancer Brother Gout Brother No problems noted. 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 ENT- oropharynx dry Neck- supple, no JVD. Lungs- clear to auscultation no wheezing or crackles Heart- regular rate and rhythm; no murmur, no gallop. Abdomen- normal bowel sounds, soft, nontender, no distension. Extremities- Left lower extremity erythematous slightly swollen below knee. black discoloration 3 x3 cm above ankle medial aspect left leg. Dry open ulcer on right leg clark region. Neuro- alert, oriented PERRL, no facial palsy; no dysarthria; moves extremities Results & Data Results & Data Vital Signs (Past 12 Hours) Vital Signs Temp Pulse Pulse Resp BP BP Pulse Ox 07/29/24 03:15 82 17 104/57 L 96 07/29/24 03:00 81 15 91/61 L 96 07/29/24 02:45 78 20 86/56 L 100 07/29/24 02:36 78 18 78/46 L 99 07/29/24 02:30 78 20 63/40 L 98 07/29/24 02:15 74 20 78/45 L 96 07/29/24 02:05 82 20 77/48 L 99 07/29/24 02:03 76 18 73/51 L 95 07/29/24 02:00 74 18 69/46 L 95 07/29/24 01:46 77 18 72/51 L 95 07/29/24 01:45 74 18 76/52 L 95 07/29/24 01:30 79 20 94/65 L 100 07/29/24 01:15 82 19 87/54 L 96 07/29/24 01:05 79 07/29/24 01:00 79 20 92/54 L 94 07/29/24 00:45 79 20 86/50 L 93 07/29/24 00:30 82 20 84/51 L 96 07/29/24 00:15 86 20 86/55 L 97 07/29/24 00:00 83 20 82/50 L 100 07/28/24 23:45 82 13 100 07/28/24 23:45 87/52 L 07/28/24 23:45 87/52 L 07/28/24 23:31 77/46 L 07/28/24 23:31 77/46 L 07/28/24 23:31 77/46 L 07/28/24 23:30 77/42 L 07/28/24 23:15 80 18 75/40 L 97 07/28/24 23:00 81 16 84/49 L 97 07/28/24 22:45 82 14 88/57 L 97 07/28/24 22:15 79 12 84/49 L 99 07/28/24 22:00 82 14 92/58 L 100 07/28/24 21:45 86 26 H 91/54 L 95 07/28/24 21:18 99 07/28/24 21:18 36.7 C 82 12 79/43 L 99 07/28/24 21:16 79/43 L 07/28/24 21:14 87 O2 Del Method 07/29/24 03:15 07/29/24 03:00 07/29/24 02:45 07/29/24 02:36 07/29/24 02:30 07/29/24 02:15 07/29/24 02:05 07/29/24 02:03 07/29/24 02:00 07/29/24 01:46 07/29/24 01:45 07/29/24 01:30 07/29/24 01:15 07/29/24 01:05 07/29/24 01:00 Nasal Cannula 07/29/24 00:45 Nasal Cannula 07/29/24 00:30 07/29/24 00:15 07/29/24 00:00 07/28/24 23:45 07/28/24 23:45 07/28/24 23:45 07/28/24 23:31 07/28/24 23:31 07/28/24 23:31 07/28/24 23:30 07/28/24 23:15 07/28/24 23:00 07/28/24 22:45 Room Air 07/28/24 22:15 07/28/24 22:00 Room Air 07/28/24 21:45 Room Air 07/28/24 21:18 Room Air 07/28/24 21:18 Room Air 07/28/24 21:16 07/28/24 21:14 Diagnostic Findings Laboratory Results WBC 30.76 K/ul (4.8-10.8) H* 07/28/24 21:30 RBC 2.66 M/uL (4.20-5.40) L 07/28/24 21:30 Hgb 10.0 g/dl (12.0-16.0) L 07/28/24 21:30 Hct 28.5 % (37.0-47.0) L 07/28/24 21:30 MCV 107.1 fL (80.0-100.0) H 07/28/24 21:30 MCH 37.6 pg (25.0-34.0) H 07/28/24 21:30 MCHC 35.1 g/dL (32.0-36.0) 07/28/24 21:30 RDW Std Deviation 52.6 fL (36.4-46.3) H 07/28/24 21:30 RDW Coeff of Selam 13.3 % (11.5-14.5) 07/28/24 21:30 Plt Count 166 K/uL (130-400) 07/28/24 21:30 MPV 9.7 fL (9.4-12.4) 07/28/24 21:30 Immature Gran % (Auto) 1.6 % 07/28/24 21:30 Neut % (Auto) 87.2 % 07/28/24 21:30 Lymph % (Auto) 4.7 % 07/28/24 21:30 Barry % (Auto) 6.4 % 07/28/24 21:30 Eos % (Auto) 0.0 % 07/28/24 21:30 Baso % (Auto) 0.1 % 07/28/24 21:30 Neut # (Auto) 26.83 K/uL (1.40-6.50) H 07/28/24 21:30 Lymph # (Auto) 1.44 K/uL (1.20-3.40) 07/28/24 21:30 Barry # (Auto) 1.97 K/uL (0.11-0.59) H 07/28/24 21:30 Eos # (Auto) 0.01 K/uL (0.00-0.50) 07/28/24 21:30 Baso # (Auto) 0.03 K/uL (0.00-0.20) 07/28/24 21:30 Immature Gran # (Auto) 0.48 K/uL (0.01-0.20) H 07/28/24 21:30 Target Cells 1+ 07/28/24 21:30 PT 14.0 Seconds (9.0-12.0) H 07/28/24 21:30 INR 1.3 (0.9-1.1) H 07/28/24 21:30 APTT 137 Seconds (21-31) H* 07/28/24 21:30 PTT Ratio > 4.9 07/28/24 21:30 Sodium 138 mmol/L (136-145) 07/28/24 21:30 Potassium 3.7 mmol/L (3.5-5.1) 07/28/24 21:30 Chloride 106 mmol/L (98-107) 07/28/24 21:30 Carbon Dioxide 25 mmol/L (21-32) 07/28/24 21:30 Anion Gap 7 (3-11) 07/28/24 21:30 BUN 15 mg/dl (6-23) 07/28/24 21:30 Creatinine 1.09 mg/dl (0.6-1.2) 07/28/24 21:30 Est Cr Clr Drug Dosing 34.9 ml/min 07/28/24 21:30 eGFR 55.34 07/28/24 21:30 BUN/Creatinine Ratio 13.8 (10-20) 07/28/24 21:30 Glucose 76 mg/dl (70-99(Fasting)) 07/28/24 21:30 Lactate 2.6 mmol/L (0.4-2.0) H* 07/29/24 03:05 Calcium 7.8 mg/dl (8.6-10.3) L 07/28/24 21:30 Magnesium 1.2 mg/dl (1.7-2.4) L 07/28/24 21:30 Total Bilirubin 0.9 mg/dl (0.2-1.0) 07/28/24 21:30 Direct Bilirubin 0.2 mg/dl (0-0.2) 07/28/24 21:30 AST 64 U/L (13-39) H 07/28/24 21:30 ALT 32 U/L (7-52) 07/28/24 21:30 Alkaline Phosphatase 271 U/L (34-104) H 07/28/24 21:30 Troponin I High Sens 188.6 pg/ml (0-14) H* 07/28/24 23:20 Total Protein 4.1 gm/dl (6.0-8.3) L 07/28/24 21:30 Albumin 2.3 gm/dl (3.4-5.0) L 07/28/24 21:30 Procalcitonin 29.40 ng/ml (0-0.5) H 07/28/24 21:30 Impressions Chest X-Ray 07/28/24 21:18 Exam(s): XR CXR 1 VIEW EXAM: XR Chest, 1 View CLINICAL HISTORY: Sepsis. TECHNIQUE: Frontal view of the chest. COMPARISON: Portable chest view dated 07/11/2024 FINDINGS: Lungs: No focal airspace consolidation. The pulmonary vasculature demonstrates no significant radiographic abnormality. Pleural space: Unremarkable. No pneumothorax. No large pleural effusion. Heart: Unremarkable. No cardiomegaly. Mediastinum: The mediastinal contours are stable, accounting for slight obliquity. No tracheal deviation. Bones/joints: Unremarkable. No acute fracture. Tubes, lines and devices: A CT compatible right internal jugular approach portacatheter is stable in position with the tip in the superior vena cava. IMPRESSION: No acute cardiopulmonary process or significant alteration from the prior examination. Electronically signed by: Chandana Aguirre MD 07/28/24 23:17 PM ECG Additional Comments: EKG normal sinus rhythm rate of 78. T wave inversions in inferolateral leads. QTc 492. Code Status & VTE Plan VTE Prophylaxis Plan VTE Prophylaxis will be ordered: Yes
[2024-07-29] MEDS: MoRPHine SULFATE 2 MG/ML CARP IV STA (04:30)
[2024-07-29] MEDS: KETOROLAC TROMETHAMINE 15 MG/ML VIAL IV ONE (05:04)
[2024-07-29] MEDS ORDERED: LORazepam 0.5 MG TAB PO PRN (05:58)
--- NOTE | 2024-07-29 06:24 | Ultrasound Report ---
EXAM: US venous doppler LE LT CLINICAL HISTORY: Swelling, redness, and pain in LLE. TECHNIQUE: Ultrasound examination of left lower extremity veins was performed in real-time and duplex. One or more of the following were performed- spectral analysis, resistive index, waveform analysis, and pulsed Doppler. COMPARISON: 03/15/2024 US venous doppler LE. FINDINGS: An echogenic thrombi was seen in the left common femoral vein as well as the left distal superficial femoral vein. Normal phasic, non-pulsatile, and spontaneous flow is noted in left GSV, common femoral, superficial femoral, popliteal, and posterior tibial and peroneal veins. Visualized veins of the left lower extremity demonstrate normal compressibility. No sonographic evidence of acute deep vein thrombosis (DVT) is detected in the visualized veins of the lower extremity. Compression and Augmentation: All evaluated veins compress fully with applied transducer pressure. Augmentation of venous flow is noted with distal compression. Additional Findings: No evidence of intraluminal thrombus. Limited visualization of the veins due to pitting edema, and severe pain as the patient is unable to tolerate augmentation. Thickened roth are seen in the left femoral vein. IMPRESSION: 1. An echogenic thrombi was seen in the left common femoral vein as well as the left distal superficial femoral vein with partial compressibility and thickened roth suggesting chronic recanalized DVT. Rather stable as compared to prior study. 2. No acute superficial thrombus within the left great saphenous vein at this time of examination as compared to the prior study. 3. No sonographic evidence of acute DVT was detected at the time of examination. Disclaimer: DVT could be missed early in the disease when clot burden is minimal. For patients with moderate and high pretest probability of DVT and negative ultrasound, the [employer] clinical guidelines recommend testing with a D-dimer assay or repeat ultrasound in 5-7 days. If symptoms worsen, the Society of radiologists in ultrasound recommends repeating ultrasound even earlier. Electronically signed by Yury Velez 07-29-2024 06:24 AM
--- NOTE | 2024-07-29 06:28 | Ultrasound Report ---
EXAM: US venous doppler LE RT CLINICAL HISTORY: Swelling, redness and pain in RLE. TECHNIQUE: Ultrasound examination of the right lower extremity veins was performed in real time and duplex. One or more of the following were performed- spectral analysis, resistive index, waveform analysis, and pulsed Doppler. COMPARISON: 03/15/2024 US venous doppler LE. FINDINGS: Normal phasic, non-pulsatile and spontaneous flow is noted in right common femoral, superficial femoral, popliteal and posterior tibial and peroneal veins. Visualized veins of right lower extremity demonstrate normal compressibility. No sonographic evidence of acute deep vein thrombosis (DVT) is detected in the visualized veins of lower extremity. Compression and Augmentation: All evaluated veins compress fully with applied transducer pressure. Augmentation of venous flow is noted with distal compression. Additional Findings: No evidence of intraluminal thrombus. Limited visualization of the calf veins due to pitting edema, severe pain as the patient is unable to tolerate augmentation. IMPRESSION: 1. No sonographic evidence of acute DVT detected at the time of examination. 2. No strandings seen in the right common femoral vein at this time of examination compared to prior study. Disclaimer: DVT could be missed early in the disease when clot burden is minimal. For patients with moderate and high pretest probability of DVT and negative ultrasound, the [employer] clinical guidelines recommend testing with a D-dimer assay or repeat ultrasound in 5-7 days. If symptoms worsen, the Society of radiologists in ultrasound recommends repeating ultrasound even earlier. Electronically signed by Yury Velez 07-29-2024 06:27 AM
[2024-07-29] MEDS: LEVOTHYROXINE SODIUM 150 MCG TABLET PO SCH (06:33)
--- NOTE | 2024-07-29 06:33 | Ultrasound Report ---
EXAM: US arterial duplex LE LT CLINICAL HISTORY: Erythema, swelling, and areas of black discoloration. TECHNIQUE: Ultrasound examination of the left lower extremities arteries with ankle brachial indices was performed in real-time and duplex. One or more of the following were performed- spectral analysis, resistive index, waveform analysis, and pulsed Doppler. COMPARISON: None. FINDINGS: Left lower limb arterial tree: Common Femoral Artery (SEAT JOINER): Triphasic 75.9 Deep Femoral Artery (DPA): Triphasic 62.6 Superficial Femoral Artery (SFA) : Triphasic Proximal: 81.7. Mid: 79.2. Distal: 77.8. Popliteal Artery (POP A): Triphasic Proximal: 75.2. Distal: 83.6 Posterior Tibial Artery (TIE CARRIER): Triphasic Proximal: 90.5. Mid: 109.2. Distal: 111.3. Peroneal artery: Triphasic Proximal: 50.3. Mid: 69.5. Distal: 73.8. IVA: Triphasic Proximal: 57.2. Mid: 57.2. Distal: 60.7. Dorsalis Pedis Artery (DPA): Biphasic 52.5 Mostly triphasic waveforms are noted in the left lower extremity arteries. Minimal mural plaques or hemodynamically significant stenosis are noted. The peak systolic velocities are within normal limits. No evidence of significant stenosis (50%) or hemodynamically significant lesions. Collateral Circulation: No significant collateral circulation was noted indicative of chronic arterial occlusion. Additional Findings: None. IMPRESSION: 1. Mostly triphasic waveforms are noted in the left lower extremity arteries. 2. Minimal mural plaques or hemodynamically significant stenosis are noted. 3. The peak systolic velocities are within normal limits. Electronically signed by Yury Velez 07-29-2024 06:33 AM
--- NOTE | 2024-07-29 06:44 | Ultrasound Report ---
EXAM: US arterial duplex LE RT CLINICAL HISTORY: Chronic right leg wound and pain. PVD TECHNIQUE: Ultrasound examination of the right lower extremity arteries in real time and duplex. One or more of the following were performed- spectral analysis, resistive index, waveform analysis, and pulsed Doppler. COMPARISON: None. FINDINGS: Vessel Flow Pattern Right Peak Velocity Right (cm/sec) Flow Pattern Left Peak Velocity Left (cm/sec) Common Femoral Artery (UNDERWATER HUNTER TRAPPER) Triphasic 69.6 Deep Femoral Artery (DPA) Triphasic 48.0 Superficial Femoral Artery (SFA) Triphasic Proximal: 58.2. Mid: 77.3. Distal: 50.0. Popliteal Artery (POP A) Triphasic Proximal: 41.2. Distal: 84.8 Posterior Tibial Artery (CERTIFIED PROSTHETIST/ORTHOTIST), proximal Triphasic Proximal: 90.5. Mid: 57.6. Distal: 63.0. - IVA Triphasic Proximal: 59.7. Mid: 46.3. Distal: 49.4. - peroneal artery Triphasic Proximal: 48.2. Mid: 69.9. Distal: 62.3. Dorsalis Pedis Artery (DPA) Triphasic 75.1 - Triphasic waveforms are noted in the right lower extremity arteries. Minimal mural plaques or hemodynamically significant stenosis are noted. The peak systolic velocities are within normal limits. No evidence of significant stenosis (50%) or hemodynamically significant lesions. Collateral Circulation: No significant collateral circulation was noted indicative of chronic arterial occlusion. Additional Findings: None. IMPRESSION: 1. Triphasic waveforms are noted in the right lower extremity arteries. 2. Minimal mural plaques or hemodynamically significant stenosis is noted. 3. The peak systolic velocities are within normal limits. 4. No evidence of significant stenosis (50%) or hemodynamically significant lesion. Electronically signed by Yury Velez 07-29-2024 06:43 AM
[2024-07-29 07:12] LABS: Hematocrit (blood only) 27.9 % (37.0-47.0); Hemoglobin 9.5 g/dl (12.0-16.0); Mean Corpuscular Hemoglobin 37.3 pg (25.0-34.0); Mean Corpuscular Hgb Conc 34.1 g/dL (32.0-36.0); Mean Corpuscular Volume 109.4 fL (80.0-100.0); Platelet Count 150 K/uL (130-400); RDW Coefficient of Variation 13.6 % (11.5-14.5); RDW Standard Deviation 54.9 fL (36.4-46.3); Red Blood Count 2.55 M/uL (4.20-5.40); White Blood Count 27.43 K/ul (4.8-10.8)
[2024-07-29 07:14] LABS: Albumin Globulin Ratio 1.1 (0.9-2); Albumin Level 1.9 gm/dl (3.4-5.0); BUN Creatinine Ratio 16.3 (10-20); Bilirubin,Total 0.6 mg/dl (0.2-1.0); Calcium 7.6 mg/dl (8.6-10.3); Creatinine Clr Calc Pharmacy 47.6 ml/min; Globulin 1.7 gm/dl (2.5-4.0); Magnesium 2.3 mg/dl (1.7-2.4); Phosphorus 2.6 mg/dl (2.5-4.9); Potassium 3.4 mmol/L (3.5-5.1); Total Protein 3.6 gm/dl (6.0-8.3)
[2024-07-29 07:25] LABS: Troponin I High Sensitivity 139.5 pg/ml (0-14)
[2024-07-29 07:32] LABS: Thyroid Stimulating Hormone 6.506 uIu/ml (0.300-4.500)
[2024-07-29 07:41] LABS: Basophils # (auto) 0.03 K/uL (0.00-0.20); Basophils % (auto) 0.1 %; Eosinophils # (auto) 0.09 K/uL (0.00-0.50); Eosinophils % (auto) 0.3 %; Immature Granulocytes # (auto) 0.64 K/uL (0.01-0.20); Immature Granulocytes % (auto) 2.3 %; Lymphocytes # (auto) 1.58 K/uL (1.20-3.40); Lymphocytes % (auto) 5.8 %; Macrocytosis Present; Monocytes % (auto) 4.7 %; Neutrophils # (auto) 23.79 K/uL (1.40-6.50); Neutrophils % (auto) 86.8 %; Polychromasia 1+; Target Cells 1+
[2024-07-29 08:09] LABS: T4 Free Thyroxine 0.77 ng/dl (0.61-1.60)
--- NOTE | 2024-07-29 09:28 | Electrocardiogram Report ---
Test Reason : Blood Pressure : */* mmHG Vent. Rate : 78 BPM Atrial Rate : 80 BPM P-R Int : 180 ms QRS Dur : 78 ms QT Int : 432 ms P-R-T Axes : 98 26 -75 degrees QTcB Int : 492 ms Normal sinus rhythm Low voltage QRS Poor R wave progression, consider anterior OK vs. lead placement vs. LVH T-wave inversion in multiple leads , consider ischemia vs. metabolic Abnormal ECG When compared with ECG of 11-Jul-2024 00:37, T wave inversion now evident in Inferior leads T wave inversion now evident in Anterolateral leads Confirmed by Cullen Chanel ([id number]) on 07/29/2024 9:27:52 AM Referred By: REFERRED SELF Confirmed By: Cullen Chanel
[2024-07-29] MEDS: GABAPENTIN 300 MG CAP PO SCH (10:09)
[2024-07-29] MEDS: PANTOprazole 40 MG TAB PO SCH (10:09)
[2024-07-29] MEDS: buPROPion XL 300 MG TABCR PO SCH (10:09)
[2024-07-29] MEDS: busPIRone 5 MG TAB PO SCH ×2 (10:09→14:23)
[2024-07-29] MEDS: CYANOCOBALAMIN (B-12) 500 MCG TABLET PO SCH (10:10)
[2024-07-29] MEDS: buPROPion XL 150 MG TABCR PO SCH (10:10)
[2024-07-29] MEDS: POTASSIUM CHLORIDE CRTAB 20 MEQ TABCR PO SCH (10:10)
[2024-07-29] MEDS: MAGNESIUM OXIDE 400 MG TAB PO SCH (10:10)
[2024-07-29] MEDS: CALCIUM 600MG + VIT D 400 IU TAB PO SCH (10:10)
[2024-07-29] MEDS: APIXABAN 5 MG TABLET PO SCH (10:10)
[2024-07-29] MEDS: ACETAMINOPHEN 325 MG TAB PO PRN (11:39)
--- NOTE | 2024-07-29 13:37 | Hospitalist Progress Note ---
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 Patient has chronic venous ulcer in the right lower extremity in the [place] region and she is following with the wound care. The wound was wrapped couple of days ago by wound care. She takes Percocet for the pain in the right lower extremity. But today morning she noticed severe pain in the left lower extremity and also it has become red and it was getting worse so she came to the ER. Her left lower extremity from knee down is erythematous and slightly swollen and there is some blackish spots above the ankle in the medial aspect. Patient was hypotensive in the ER requiring fluid bolus. Her WBC is 30. Initial lactate 2.9 repeat is 3 and repeat again is 2.6, troponin is 186. Procalcitonin 29.4. Patient alert and oriented able to give her history. She seems comfortable. Denies any headache. No runny nose or sore throat. Dry mouth. No cough. States appetite is not that great. But tries to eat. No chest pain or shortness of breath. Currently no nausea. Denies any abdominal pain. Normal bowel and bladder movements. Severe sepsis Cellulitis of the left lower extremity Has chronic venous ulcer on the right lower extremity which looks dry Lactic acid 3 and repeat is 2.6, cortisol level cortisol level at "cortisol """random cortisol 10 point NEUROLOGICAL: Alert, oriented, and cooperative. Cranial nerves, sensation and strength grossly intact. Pupils round, equal, and react to light, EOMs are full. WBC 30 Got fluid bolus Continue fluids 125 mill per hour Received cefepime and Dapto in ER Will continue with her meropenem and Dapto Will check cortisol levels-11 Recheck lactic acid -normalized to 1.3 Will also follow Doppler studies of bilateral lower extremities-no evidence of DVT and the patient has been on Eliquis Has been feeling better with current antibiotics Await cultures and continue current antibiotics and wound care Elevated troponin Possible non-ST elevated MT T inversion in inferolateral leads Patient denies chest pain shortness of breath Initial troponin 197 and subsequent troponins did not show any increase in trend rather it decreased to 133.0 echo of the heart showednormal LV size, concentric LVH, LV wall motion is normal, EF is 65 to 70%, aortic valve leaflets are not well-visualized mild focal calcification, no hemodynamically significant valvular aortic stenosis, mitral valve thickness is normal and there is more moderate mitral regurgitation Patient is on Eliquis Doubt any ACS Hypomagnesia Replaced Continue home supplement Follow repeat labs Hypocalcemia Calcium 7.8 Albumin 2.4 got a dose of calcium gluconate in the ER follow labs Diet controlled diabetes HbA1c 4.4 in March 2024 Refractory AML and leukemia cutis Currently chemotherapy on hold for lower extremity wounds and overall general condition Follow-up with heme-onc Lower bilateral lower extremity edema/lymphedema Possibly from medications, DVT, malnutrition and mitral valve prolapse Diuretics and compression stocks were recommended Holding diuretics as patient currently in sepsis Will monitor. Elevated alkaline phosphatase Seems chronic Will monitor Chronic DVT and superficial thrombus On Eliquis History of mitral valve prolapse History of Takotsubo cardiomyopathy Echo done on 07/12/2024 EF 60 to 65% Depression General Anxiety disorder Will continue home medications Hypothyroidism On Synthyroid Chronic pain in right lower extremity On Percocet as needed at home DVT prophylaxis On Eliquis Disposition Telemetry CODE STATUS full code as per discussion with the patient Admission and Anticipated Discharge Date Admission Date: July 29, 2024 Subjective 07/29/2024 Patient was seen and examined in telemetry unit She was admitted with sepsis secondary to cellulitis involving the left leg mainly She has been feeling much better and wanted to have regular diet instead of heart healthy diet "diabetic diet She also complains today of pain in the right leg and she uses oxycodone and wanted to have it back Blood pressure remains on the lower side and warned against use of too much narcotic pain medications Review of Systems Review of Systems: All systems reviewed and are unremarkable except as noted below Physical Exam Physical Exam: Lying in bed without any acute distress but looks very ill and lethargic Constitutional: + ill appearing and + thin Eyes: PERRL, conjunctivae normal, anicteric sclerae ENMT: external ear and nose normal, oropharynx normal Neck: trachea midline, no thyromegaly Respiratory: no respiratory distress Auscultation: + diminished lung sounds and + crackles (Minimal bibasilar crackles) Cardiovascular: Rate/Rhythm: regular rate and regular rhythm; not tachycardic Heart Sounds: normal S1, normal S2 and + murmur Extremities: + edema (Trace edema on the right 1+ edema on the leg with redness and wounds) Gastrointestinal (Abdomen): Inspection/Auscultation: normal bowel sounds; abdomen not distended Percussion/Palpation: abdomen soft; abdomen nontender Musculoskeletal: Has wants to go her cardiac changes involving the joints in the extremities Neurologic: normal touch/pain/proprioception and moves all extremities; no focal motor deficits Remains generally weak and lethargic Lymphatic: no cervical or axillary lymphadenopathy Results & Data Results & Data Vital Signs (Past 12 Hours) Vital Signs Temp Pulse Pulse Resp BP BP BP 07/29/24 12:41 104/66 07/29/24 12:15 76/53 L 07/29/24 11:27 36.3 C L 73 18 72/50 L 71/48 L 07/29/24 08:00 81 07/29/24 07:40 36.3 C L 69 19 93/60 L 07/29/24 06:00 07/29/24 06:00 36.5 C 71 16 90/55 L 07/29/24 05:58 36.5 C 74 16 90/55 L 07/29/24 05:16 74 20 72/56 L 07/29/24 05:14 76 20 72/56 L 07/29/24 05:00 74 20 98/60 L 07/29/24 04:45 74 18 85/50 L 07/29/24 04:33 74 20 78/53 L 07/29/24 04:30 74 18 80/57 L 07/29/24 04:30 77 20 78/53 L 07/29/24 04:15 76 20 81/49 L 07/29/24 03:30 78 20 94/54 L 07/29/24 03:15 82 17 104/57 L 07/29/24 03:00 81 15 91/61 L 07/29/24 02:45 78 20 86/56 L 07/29/24 02:36 78 18 78/46 L 07/29/24 02:30 78 20 63/40 L 07/29/24 02:15 74 20 78/45 L 07/29/24 02:05 82 20 77/48 L 07/29/24 02:03 76 18 73/51 L 07/29/24 02:00 74 18 69/46 L 07/29/24 01:46 77 18 72/51 L 07/29/24 01:45 74 18 76/52 L 07/29/24 01:30 79 20 94/65 L Pulse Ox O2 Del Method 07/29/24 12:41 07/29/24 12:15 07/29/24 11:27 91 Room Air 07/29/24 08:00 07/29/24 07:40 96 Room Air 07/29/24 06:00 Room Air 07/29/24 06:00 95 Room Air 07/29/24 05:58 94 Room Air 07/29/24 05:16 93 Room Air 07/29/24 05:14 98 Room Air 07/29/24 05:00 97 Room Air 07/29/24 04:45 96 Room Air 07/29/24 04:33 96 Room Air 07/29/24 04:30 96 Room Air 07/29/24 04:30 97 Room Air 07/29/24 04:15 97 Room Air 07/29/24 03:30 96 Room Air 07/29/24 03:15 96 07/29/24 03:00 96 07/29/24 02:45 100 07/29/24 02:36 99 07/29/24 02:30 98 07/29/24 02:15 96 07/29/24 02:05 99 07/29/24 02:03 95 07/29/24 02:00 95 07/29/24 01:46 95 07/29/24 01:45 95 07/29/24 01:30 100 Laboratory Results Short CBC 07/28/24 07/29/24 Range/Units 21:30 06:37 WBC 30.76 H* 27.43 H (4.8-10.8) K/ul Hgb 10.0 L 9.5 L (12.0-16.0) g/dl Hct 28.5 L 27.9 L (37.0-47.0) % Plt Count 166 150 (130-400) K/uL BMP 07/28/24 07/29/24 21:30 06:37 Sodium 138 140 Potassium 3.7 3.4 L Chloride 106 111 H Carbon Dioxide 25 25 BUN 15 13 Creatinine 1.09 0.80 Glucose 76 78 Calcium 7.8 L 7.6 L Liver Function 07/28/24 07/29/24 Range/Units 21:30 06:37 Total Bilirubin 0.9 0.6 (0.2-1.0) mg/dl Direct Bilirubin 0.2 (0-0.2) mg/dl AST 64 H 60 H (13-39) U/L ALT 32 30 (7-52) U/L Alkaline Phosphatase 271 H 210 H (34-104) U/L Albumin 2.3 L 1.9 L (3.4-5.0) gm/dl Medications Administered Current Inpatient Medications Acetaminophen (Acetaminophen 325 Mg Tab) 650 mg PO Q4H PRN PRN Reason: Pain or Fever Stop: 08/28/24 05:57 Last Admin: 07/29/24 11:39 Dose: 650 mg Apixaban (Apixaban 5 Mg Tablet) 5 mg PO BID [facility] Stop: 08/28/24 08:59 Last Admin: 07/29/24 10:10 Dose: 5 mg Bupropion HCl (Bupropion Xl 300 Mg Tabcr) [facility] [place] [facility] [place]: 08/28/24 08:59 Last Admin: 07/29/24 10:09 Dose: 300 mg Bupropion HCl (Bupropion Xl 150 Mg Tabcr) 150 mg PO QAM [facility] Stop: 08/28/24 08:59 Last Admin: 07/29/24 10:10 Dose: 150 mg Buspirone HCl (Buspirone 5 Mg Tab) 20 mg PO BID [facility] Stop: 08/28/24 08:59 Last Admin: 07/29/24 10:09 Dose: 20 mg Buspirone HCl (Buspirone 5 Mg Tab) 10 mg PO DAILY@1400 [facility] Stop: 08/28/24 13:59 Calcium/Vitamin D (Calcium 600mg + Vit D 400 Iu Tab) 1 tab PO QAM [facility] Stop: 08/28/24 08:59 Last Admin: 07/29/24 10:10 Dose: 1 tab Cyanocobalamin (Cyanocobalamin (B-12) 500 Mcg Tablet) 1,000 mcg PO QAM [facility] Stop: 08/28/24 08:59 Last Admin: 07/29/24 10:10 Dose: 1,000 mcg Gabapentin (Gabapentin 300 Mg Cap) 600 mg PO TID [facility] Stop: 08/28/24 08:59 Last Admin: 07/29/24 10:09 Dose: 600 mg Sodium Chloride (Nss) 1,000 mls @ 125 mls/hr IV .Q8H [facility] Stop: 07/30/24 02:59 Last Admin: 07/29/24 12:14 Dose: 125 mls/hr Meropenem 500 mg/ Syringe 10 mls @ 2 mls/min IV Q8H [facility] Stop: 08/05/24 03:29 Last Admin: 07/29/24 11:39 Dose: 2 mls/min Daptomycin 275 mg/ Syringe 5.5 mls @ 2.75 mls/min IV Q24H [facility]; Protocol Stop: 08/05/24 21:59 Levothyroxine Sodium (Levothyroxine Sodium 150 Mcg Tablet) 150 mcg PO DAILYBB [facility] Stop: 08/28/24 06:29 Last Admin: 07/29/24 06:33 Dose: 150 mcg Lorazepam (Lorazepam 0.5 Mg Tab) 0.5 mg PO DAILY PRN PRN Reason: Anxiety Stop: 08/28/24 05:57 Magnesium Oxide (Magnesium Oxide 400 Mg Tab) 800 mg PO BID [facility] Stop: 08/28/24 08:59 Last Admin: 07/29/24 10:10 Dose: 800 mg Miscellaneous (Order Awaiting Action: (Fluoride (Sodium) [Sodium Fluoride 5000 Dry Mouth] 1.1 % Paste) 1 each N/A QS [facility] Stop: 08/28/24 07:59 Last Admin: 07/29/24 10:47 Dose: Not Given Oxycodone/Acetaminophen (Oxycodone/Apap 7.5/325mg Tab) 1 tab PO Q6H PRN PRN Reason: pain Stop: 08/12/24 11:01 Pantoprazole Sodium (Pantoprazole 40 Mg Tab) 40 mg PO QAM [facility] Stop: 08/28/24 08:59 Last Admin: 07/29/24 10:09 Dose: 40 mg Potassium Chloride (Potassium Chloride Crtab 20 Meq Tabcr) 20 meq PO DAILY [facility] Stop: 08/28/24 08:59 Last Admin: 07/29/24 10:10 Dose: 20 meq
[2024-07-29] MEDS: oxyCODONE/APAP 7.5/325MG TAB PO PRN (15:45)
[2024-07-29 18:22] LABS: Appearance Urine Clear (Clear); Bilirubin Urine Negative (Negative); Blood Urine Negative (Negative); Color Urine Yellow; Glucose Urine UA Negative (Negative); Ketones Urine Negative (Negative); Leukocyte Esterase Urine Negative (Negative); Nitrite Urine Negative (Negative); Protein Urine Negative (Negative); Urobilinogen Urine Negative (Negative); pH Urine 5.5 (4.5-7.5)
[2024-07-29] MEDS: ONDANSETRON INJ 2 MG/ML 2 ML VIAL IV STA (20:18)
[2024-07-29] MEDS: DAPTOmycin 275 MG in SYRINGE 0 ML IV SCH (20:58)
[2024-07-30] MEDS: HEPARIN 100 UNIT/ML 5ML FLUSH FLUSH PRN (03:39)
[2024-07-30 05:31] LABS: Basophils # (auto) 0.02 K/uL (0.00-0.20); Basophils % (auto) 0.1 %; Eosinophils # (auto) 0.19 K/uL (0.00-0.50); Eosinophils % (auto) 1.2 %; Hematocrit (blood only) 26.6 % (37.0-47.0); Hemoglobin 8.9 g/dl (12.0-16.0); Immature Granulocytes # (auto) 0.18 K/uL (0.01-0.20); Immature Granulocytes % (auto) 1.1 %; Lymphocytes # (auto) 1.35 K/uL (1.20-3.40); Lymphocytes % (auto) 8.2 %; Mean Corpuscular Hemoglobin 36.8 pg (25.0-34.0); Mean Corpuscular Hgb Conc 33.5 g/dL (32.0-36.0); Mean Corpuscular Volume 109.9 fL (80.0-100.0); Mean Platelet Volume 9.9 fL (9.4-12.4); Monocytes # (auto) 0.85 K/uL (0.11-0.59); Monocytes % (auto) 5.2 %; Neutrophils % (auto) 84.2 %; Platelet Count 122 K/uL (130-400); RDW Coefficient of Variation 13.7 % (11.5-14.5); RDW Standard Deviation 55.9 fL (36.4-46.3); Red Blood Count 2.42 M/uL (4.20-5.40); White Blood Count 16.49 K/ul (4.8-10.8)
[2024-07-30 05:45] LABS: BUN Creatinine Ratio 16.5 (10-20); Calcium 7.4 mg/dl (8.6-10.3); Creatinine Clr Calc Pharmacy 49.5 ml/min; Magnesium 1.9 mg/dl (1.7-2.4); Potassium 3.6 mmol/L (3.5-5.1)
[2024-07-30] MEDS: COLLAGENASE OINT 30 GM TUBE EXT SCH (11:46)
--- NOTE | 2024-07-30 17:11 | Hospitalist Progress Note ---
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 Patient has chronic venous ulcer in the right lower extremity in the [place] region and she is following with the wound care. The wound was wrapped couple of days ago by wound care. She takes Percocet for the pain in the right lower extremity. But today morning she noticed severe pain in the left lower extremity and also it has become red and it was getting worse so she came to the ER. Her left lower extremity from knee down is erythematous and slightly swollen and there is some blackish spots above the ankle in the medial aspect. Patient was hypotensive in the ER requiring fluid bolus. Her WBC is 30. Initial lactate 2.9 repeat is 3 and repeat again is 2.6, troponin is 186. Procalcitonin 29.4. Patient alert and oriented able to give her history. She seems comfortable. Denies any headache. No runny nose or sore throat. Dry mouth. No cough. States appetite is not that great. But tries to eat. No chest pain or shortness of breath. Currently no nausea. Denies any abdominal pain. Normal bowel and bladder movements. Severe sepsis Cellulitis of the left lower extremity Has chronic venous ulcer on the right lower extremity which looks dry Lactic acid 3 and repeat is 2.6, cortisol level cortisol level at "cortisol """random cortisol 10 point NEUROLOGICAL: Alert, oriented, and cooperative. Cranial nerves, sensation and strength grossly intact. Pupils round, equal, and react to light, EOMs are full. WBC 30 Got fluid bolus Continue fluids 125 mill per hour Received cefepime and Dapto in ER Will continue with her meropenem and Dapto Will check cortisol levels-11 Recheck lactic acid -normalized to 1.3 Will also follow Doppler studies of bilateral lower extremities-no evidence of DVT and the patient has been on Eliquis Has been feeling better with current antibiotics Await cultures and continue current antibiotics and wound care Blood cultures have been negative and the bilateral leg wounds specially the left leg cellulitis shows some improvement with decreasing redness and tenderness Wounds are seen as in the picture and wound care nurse is dressing the wound as needed Will get ID input for recommendation with oral antibiotic and the duration on discharge Will get PT and OT evaluation Elevated troponin Possible non-ST elevated WA T inversion in inferolateral leads Patient denies chest pain shortness of breath Initial troponin 197 and subsequent troponins did not show any increase in trend rather it decreased to 133.0 echo of the heart showednormal LV size, concentric LVH, LV wall motion is normal, EF is 65 to 70%, aortic valve leaflets are not well-visualized mild focal calcification, no hemodynamically significant valvular aortic stenosis, mitral valve thickness is normal and there is more moderate mitral regurgitation Patient is on Eliquis Doubt any ACS Hypomagnesia Replaced Continue home supplement Follow repeat labs Hypocalcemia Calcium 7.8 Albumin 2.4 got a dose of calcium gluconate in the ER follow labs Diet controlled diabetes HbA1c 4.4 in March 2024 Refractory AML and leukemia cutis Currently chemotherapy on hold for lower extremity wounds and overall general condition Follow-up with heme-onc Lower bilateral lower extremity edema/lymphedema Possibly from medications, DVT, malnutrition and mitral valve prolapse Diuretics and compression stocks were recommended Holding diuretics as patient currently in sepsis Will monitor. Elevated alkaline phosphatase Seems chronic Will monitor Chronic DVT and superficial thrombus On Eliquis History of mitral valve prolapse History of Takotsubo cardiomyopathy Echo done on 07/12/2024 EF 60 to 65% Depression General Anxiety disorder Will continue home medications Hypothyroidism On Synthyroid Chronic pain in right lower extremity On Percocet as needed at home DVT prophylaxis On Eliquis Disposition Telemetry CODE STATUS full code as per discussion with the patient Admission and Anticipated Discharge Date Admission Date: July 29, 2024 Subjective 07/29/2024 Patient was seen and examined in telemetry unit She was admitted with sepsis secondary to cellulitis involving the left leg mainly She has been feeling much better and wanted to have regular diet instead of heart healthy diet "diabetic diet She also complains today of pain in the right leg and she uses oxycodone and wanted to have it back Blood pressure remains on the lower side and warned against use of too much narcotic pain medications 07/30/2024 The patient was seen and examined in telemetry unit She has been feeling much better Still complaining of pain in the legs and has been requiring narcotics as before Blood pressure remains on the softer side No fever and or chills Review of Systems Review of Systems: All systems reviewed and are unremarkable except as noted below Physical Exam Physical Exam: Lying in bed without any acute distress but looks very ill and lethargic Constitutional: + ill appearing and + thin Eyes: PERRL, conjunctivae normal, anicteric sclerae ENMT: external ear and nose normal, oropharynx normal Neck: trachea midline, no thyromegaly Respiratory: no respiratory distress Auscultation: + diminished lung sounds and + crackles (Minimal bibasilar crackles) Cardiovascular: Rate/Rhythm: regular rate and regular rhythm; not tachycardic Heart Sounds: normal S1, normal S2 and + murmur Extremities: + edema (Trace edema on the right 1+ edema on the leg with redness and wounds) Gastrointestinal (Abdomen): Inspection/Auscultation: normal bowel sounds; abdomen not distended Percussion/Palpation: abdomen soft; abdomen nontender Skin: Cellulitis of the left leg seems better and has been seen by wound care nurse Neurologic: normal touch/pain/proprioception and moves all extremities; no focal motor deficits Lymphatic: no cervical or axillary lymphadenopathy Results & Data Results & Data Vital Signs (Past 12 Hours) Vital Signs Temp Pulse Pulse Resp BP Pulse Ox O2 Del Method 07/30/24 15:26 36.5 C 85 18 102/67 96 Room Air 07/30/24 15:17 82 07/30/24 11:22 36.5 C 84 16 93/62 L 99 Room Air 07/30/24 07:42 36.4 C L 87 18 99/63 L 97 Room Air 07/30/24 07:27 80 Laboratory Results Short CBC 07/30/24 Range/Units 05:17 WBC 16.49 H D (4.8-10.8) K/ul Hgb 8.9 L (12.0-16.0) g/dl Hct 26.6 L (37.0-47.0) % Plt Count 122 L (130-400) K/uL BMP 07/30/24 05:17 Sodium 141 Potassium 3.6 Chloride 114 H Carbon Dioxide 23 BUN 13 Creatinine 0.79 Glucose 77 Calcium 7.4 L Urine 07/29/24 Range/Units 18:05 Urine Color Yellow Urine Appearance Clear (Clear) Urine pH 5.5 (4.5-7.5) Ur Specific [place] 1.020 (1.000-1.030) Urine Protein Negative (Negative) Urine Glucose (UA) Negative (Negative) Medications Administered Current Inpatient Medications Acetaminophen (Acetaminophen 325 Mg Tab) 650 mg PO Q4H PRN PRN Reason: Pain or Fever Stop: 08/28/24 05:57 Last Admin: 07/29/24 11:39 Dose: 650 mg Apixaban (Apixaban 5 Mg Tablet) 5 mg PO BID [facility] Stop: 08/28/24 08:59 Last Admin: 07/30/24 09:34 Dose: 5 mg Bupropion HCl (Bupropion Xl 300 Mg Tabcr) [facility] [place] Stop: 08/28/24 08:59 Last Admin: 07/30/24 09:35 Dose: 300 mg Bupropion HCl (Bupropion Xl 150 Mg Tabcr) 150 mg PO QAM [facility] Stop: 08/28/24 08:59 Last Admin: 07/30/24 09:37 Dose: 150 mg Buspirone HCl (Buspirone 5 Mg Tab) 20 mg PO BID [facility] Stop: 08/28/24 08:59 Last Admin: 07/30/24 09:36 Dose: 20 mg Buspirone HCl (Buspirone 5 Mg Tab) 10 mg PO DAILY@1400 [facility] Stop: 08/28/24 13:59 Last Admin: 07/30/24 14:32 Dose: 10 mg Calcium/Vitamin D (Calcium 600mg + Vit D 400 Iu Tab) 1 tab PO QAM [facility] Stop: 08/28/24 08:59 Last Admin: 07/30/24 09:37 Dose: 1 tab Collagenase (Collagenase Oint 30 Gm Tube) 1 appln EXT DAILY [facility] Stop: 08/29/24 09:59 Last Admin: 07/30/24 11:46 Dose: Not Given Cyanocobalamin (Cyanocobalamin (B-12) 500 Mcg Tablet) 1,000 mcg PO QAM [facility] Stop: 08/28/24 08:59 Last Admin: 07/30/24 09:35 Dose: 1,000 mcg Gabapentin (Gabapentin 300 Mg Cap) 600 mg PO TID [facility] Stop: 08/28/24 08:59 Last Admin: 07/30/24 14:28 Dose: 600 mg Heparin Sodium (Porcine) (Heparin 100 Unit/Ml 5ml Flush) 5 ml FLUSH PRN PRN PRN Reason: Flush Stop: 08/29/24 03:17 Last Admin: 07/30/24 03:39 Dose: 5 ml Meropenem 500 mg/ Syringe 10 mls @ 2 mls/min IV Q8H [facility]IR[facility] Stop: 08/05/24 03:29 Last Admin: 07/30/24 13:05 Dose: 2 mls/min Daptomycin 275 mg/ Syringe 5.5 mls @ 2.75 mls/min IV Q24H [facility]; Protocol Stop: 08/05/24 21:59 Last Admin: 07/29/24 20:58 Dose: 2.75 mls/min Levothyroxine Sodium (Levothyroxine Sodium 150 Mcg Tablet) 150 mcg PO DAILYBB [facility] Stop: 08/28/24 06:29 Last Admin: 07/30/24 06:00 Dose: 150 mcg Lorazepam (Lorazepam 0.5 Mg Tab) 0.5 mg PO DAILY PRN PRN Reason: Anxiety Stop: 08/28/24 05:57 Magnesium Oxide (Magnesium Oxide 400 Mg Tab) 800 mg PO BID [facility] Stop: 08/28/24 08:59 Last Admin: 07/30/24 09:34 Dose: 800 mg Miscellaneous (Order Awaiting Action: (Fluoride (Sodium) [Sodium Fluoride 5000 Dry Mouth] 1.1 % Paste) 1 each N/A QS [facility] Stop: 08/28/24 07:59 Last Admin: 07/30/24 16:34 Dose: Not Given Oxycodone/Acetaminophen (Oxycodone/Apap 7.5/325mg Tab) 1 tab PO Q6H PRN PRN Reason: pain Stop: 08/12/24 11:01 Last Admin: 07/30/24 06:00 Dose: 1 tab Pantoprazole Sodium (Pantoprazole 40 Mg Tab) 40 mg PO QAM [facility] Stop: 08/28/24 08:59 Last Admin: 07/30/24 09:36 Dose: 40 mg Potassium Chloride (Potassium Chloride Crtab 20 Meq Tabcr) 20 meq PO DAILY [facility] Stop: 08/28/24 08:59 Last Admin: 07/30/24 09:40 Dose: 20 meq
[2024-07-31 08:50] LABS: Basophils # (auto) 0.02 K/uL (0.00-0.20); Basophils % (auto) 0.1 %; Eosinophils % (auto) 1.4 %; Hematocrit (blood only) 27.2 % (37.0-47.0); Hemoglobin 9.1 g/dl (12.0-16.0); Immature Granulocytes # (auto) 0.16 K/uL (0.01-0.20); Immature Granulocytes % (auto) 1.2 %; Lymphocytes # (auto) 1.24 K/uL (1.20-3.40); Lymphocytes % (auto) 8.9 %; Mean Corpuscular Hemoglobin 37.4 pg (25.0-34.0); Mean Corpuscular Hgb Conc 33.5 g/dL (32.0-36.0); Mean Corpuscular Volume 111.9 fL (80.0-100.0); Mean Platelet Volume 10.3 fL (9.4-12.4); Monocytes # (auto) 0.79 K/uL (0.11-0.59); Monocytes % (auto) 5.7 %; Neutrophils # (auto) 11.45 K/uL (1.40-6.50); Neutrophils % (auto) 82.7 %; Platelet Count 123 K/uL (130-400); RDW Standard Deviation 58.2 fL (36.4-46.3); Red Blood Count 2.43 M/uL (4.20-5.40); White Blood Count 13.86 K/ul (4.8-10.8)
[2024-07-31 08:52] LABS: BUN Creatinine Ratio 13.7 (10-20); Calcium 7.8 mg/dl (8.6-10.3); Potassium 4.4 mmol/L (3.5-5.1)
[2024-07-31 09:12] LABS: Macrocytosis Present; Polychromasia 1+; Target Cells 1+
--- NOTE | 2024-07-31 13:33 | Hospitalist Progress Note ---
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 Patient has a chronic venous ulcer in the right lower extremity in the [place] region and she is following with wound care. Severe sepsis Cellulitis of the left lower extremity Chronic Venous Ulcer, RLE Has chronic venous ulcer on the right lower extremity Lactate elevated before downtrending after IV fluid resuscitation Significant leukocytosis, 30K on admission, downtrending Doppler US- no DVT bilaterally MRI bilateral extremities ordered and pending Blood Cx x 2 sets ordered -NGTD Wound culture RLE ordered and pending Received cefepime and Dapto in ER, transitioned to IV meropenem and Dapto ID consulted, appreciate recs. Recommended/stated the following: "Recommendations: - Stop meropenem and daptomycin - Start vancomycin iv to maintain trough 15 and above or AUC 400-600 - F/u blood cultures - Monitor closely. If cellulitis worsens on vancomycin monotherapy, provider anti-pseudomonal coverage w/ cefepime iv - Duration to be determined based on clinical response. The patient appears clinically stable. As we will probably treat this patient without any microbiologic diagnosis, I suggest providing a monotherapy w/ vancomycin iv empirically, covering the most common skin pathogens such as MRSA and Strep spp. The patient needs to be monitored closely, however, as her immunocompromised state increases risk of MDR GNR infection as well." Pt transitioned to IV Vancomycin on 07/31/24 Continue to monitor bilateral lower extremity edema/lymphedema Possibly from medications, DVT, malnutrition and mitral valve prolapse Diuretics and compression stocks were recommended Holding home diuretics (Lasix 40mg and spironolactone) as patient currently hypotensive Will monitor. Acute Cough New per pt, concerned XR chest ordered Viral Resp panel ordered Speech consult, r/o aspiration Continue to monitor Elevated troponin Possible non-ST elevated AK History of mitral valve prolapse History of Takotsubo cardiomyopathy EKG with T inversion in inferolateral leads Patient denies chest pain shortness of breath Initial troponin 197, then downtrended Echo noted"normal LV size, concentric LVH, LV wall motion is normal, EF is 65 to 70%, aortic valve leaflets are not well-visualized mild focal calcification, no hemodynamically significant valvular aortic stenosis, mitral valve thickness is normal and there is more moderate mitral regurgitation" Patient is on Eliquis Hypocalcemia Hypomagnesia replete as needed Diet controlled diabetes HbA1c 4.4 in March 2024 Monitor glucose levels Refractory AML and leukemia cutis Currently chemotherapy on hold for lower extremity wounds and overall general condition Follow-up with heme-onc after discharge Elevated alkaline phosphatase chronic Will monitor Chronic DVT and superficial thrombus On Eliquis, continue Depression General Anxiety disorder Will continue home medications Hypothyroidism On Synthroid Chronic pain in right lower extremity On Percocet as needed at home States she follows with Palliative Care Diet: HH DVT prophylaxis: On Eliquis Dispo: pending pt/ot recs Admission and Anticipated Discharge Date Admission Date: July 29, 2024 Subjective Patient was seen sitting in a chair at bedside eating lunch Concerned about a new cough today, concerned that she may have COVID as she states that her had been around family members who did test positive for COVID patient's called at about 5:15 PM and updated Review of Systems Review of Systems: All systems reviewed & are unremarkable except as noted in Subjective Physical Exam Physical Exam: General: Alert, oriented Skin:erythema of L>R leg with noted swelling Psych: Appropriate mood and affect Neuro: difficulty with movements HEENT: NC/AT CV: RRR Resp: Breath sounds clear bilaterally, no increased effort of breathing Abdomen: Soft, nontender Extremities: erythema of L>R leg with noted swelling Results & Data Results & Data Vital Signs (Past 12 Hours) Vital Signs Temp Pulse Pulse Resp BP Pulse Ox O2 Del Method 07/31/24 12:05 36.3 C L 77 18 92/62 L 98 Room Air 07/31/24 07:52 36.3 C L 80 18 102/67 93 Room Air 07/31/24 07:27 76 07/31/24 07:15 Room Air 07/31/24 03:00 36.8 C 79 18 102/67 94 Room Air Diagnostic Findings Chest X-Ray 07/28/24 21:18 Exam(s): XR CXR 1 VIEW EXAM: XR Chest, 1 View CLINICAL HISTORY: Sepsis. TECHNIQUE: Frontal view of the chest. COMPARISON: Portable chest view dated 07/11/2024 FINDINGS: Lungs: No focal airspace consolidation. The pulmonary vasculature demonstrates no significant radiographic abnormality. Pleural space: Unremarkable. No pneumothorax. No large pleural effusion. Heart: Unremarkable. No cardiomegaly. Mediastinum: The mediastinal contours are stable, accounting for slight obliquity. No tracheal deviation. Bones/joints: Unremarkable. No acute fracture. Tubes, lines and devices: A CT compatible right internal jugular approach portacatheter is stable in position with the tip in the superior vena cava. IMPRESSION: No acute cardiopulmonary process or significant alteration from the prior examination. Electronically signed by: Chandana Aguirre MD 07/28/24 23:17 PM Duplex Scan Lower Extremity Artery 07/29/24 03:01 EXAM: US arterial duplex LE LT CLINICAL HISTORY: Erythema, swelling, and areas of black discoloration. TECHNIQUE: Ultrasound examination of the left lower extremities arteries with ankle brachial indices was performed in real-time and duplex. One or more of the following were performed- spectral analysis, resistive index, waveform analysis, and pulsed Doppler. COMPARISON: None. FINDINGS: Left lower limb arterial tree: Common Femoral Artery (OVEN UNLOADER): Triphasic 75.9 Deep Femoral Artery (DPA): Triphasic 62.6 Superficial Femoral Artery (SFA) : Triphasic Proximal: 81.7. Mid: 79.2. Distal: 77.8. Popliteal Artery (POP A): Triphasic Proximal: 75.2. Distal: 83.6 Posterior Tibial Artery (HOBBING MACHINE OPERATOR): Triphasic Proximal: 90.5. Mid: 109.2. Distal: 111.3. Peroneal artery: Triphasic Proximal: 50.3. Mid: 69.5. Distal: 73.8. IVA: Triphasic Proximal: 57.2. Mid: 57.2. Distal: 60.7. Dorsalis Pedis Artery (DPA): Biphasic 52.5 Mostly triphasic waveforms are noted in the left lower extremity arteries. Minimal mural plaques or hemodynamically significant stenosis are noted. The peak systolic velocities are within normal limits. No evidence of significant stenosis (50%) or hemodynamically significant lesions. Collateral Circulation: No significant collateral circulation was noted indicative of chronic arterial occlusion. Additional Findings: None. IMPRESSION: 1. Mostly triphasic waveforms are noted in the left lower extremity arteries. 2. Minimal mural plaques or hemodynamically significant stenosis are noted. 3. The peak systolic velocities are within normal limits. Electronically signed by Yury Velez 07-29-2024 06:33 AM Venous Doppler Study 07/29/24 03:01 EXAM: US venous doppler LE LT CLINICAL HISTORY: Swelling, redness, and pain in LLE. TECHNIQUE: Ultrasound examination of left lower extremity veins was performed in real-time and duplex. One or more of the following were performed- spectral analysis, resistive index, waveform analysis, and pulsed Doppler. COMPARISON: 03/15/2024 US venous doppler LE. FINDINGS: An echogenic thrombi was seen in the left common femoral vein as well as the left distal superficial femoral vein. Normal phasic, non-pulsatile, and spontaneous flow is noted in left GSV, common femoral, superficial femoral, popliteal, and posterior tibial and peroneal veins. Visualized veins of the left lower extremity demonstrate normal compressibility. No sonographic evidence of acute deep vein thrombosis (DVT) is detected in the visualized veins of the lower extremity. Compression and Augmentation: All evaluated veins compress fully with applied transducer pressure. Augmentation of venous flow is noted with distal compression. Additional Findings: No evidence of intraluminal thrombus. Limited visualization of the veins due to pitting edema, and severe pain as the patient is unable to tolerate augmentation. Thickened roth are seen in the left femoral vein. IMPRESSION: 1. An echogenic thrombi was seen in the left common femoral vein as well as the left distal superficial femoral vein with partial compressibility and thickened roth suggesting chronic recanalized DVT. Rather stable as compared to prior study. 2. No acute superficial thrombus within the left great saphenous vein at this time of examination as compared to the prior study. 3. No sonographic evidence of acute DVT was detected at the time of examination. Disclaimer: DVT could be missed early in the disease when clot burden is minimal. For patients with moderate and high pretest probability of DVT and negative ultrasound, the [employer] clinical guidelines recommend testing with a D-dimer assay or repeat ultrasound in 5-7 days. If symptoms worsen, the Society of radiologists in ultrasound recommends repeating ultrasound even earlier. Electronically signed by Yury Velez 07-29-2024 06:24 AM Duplex Scan Lower Extremity Artery 07/29/24 04:18 EXAM: US arterial duplex LE RT CLINICAL HISTORY: Chronic right leg wound and pain. PVD TECHNIQUE: Ultrasound examination of the right lower extremity arteries in real time and duplex. One or more of the following were performed- spectral analysis, resistive index, waveform analysis, and pulsed Doppler. COMPARISON: None. FINDINGS: Vessel Flow Pattern Right Peak Velocity Right (cm/sec) Flow Pattern Left Peak Velocity Left (cm/sec) Common Femoral Artery (OVEN UNLOADER) Triphasic 69.6 Deep Femoral Artery (DPA) Triphasic 48.0 Superficial Femoral Artery (SFA) Triphasic Proximal: 58.2. Mid: 77.3. Distal: 50.0. Popliteal Artery (POP A) Triphasic Proximal: 41.2. Distal: 84.8 Posterior Tibial Artery (HOBBING MACHINE OPERATOR), proximal Triphasic Proximal: 90.5. Mid: 57.6. Distal: 63.0. - IVA Triphasic Proximal: 59.7. Mid: 46.3. Distal: 49.4. - peroneal artery Triphasic Proximal: 48.2. Mid: 69.9. Distal: 62.3. Dorsalis Pedis Artery (DPA) Triphasic 75.1 - Triphasic waveforms are noted in the right lower extremity arteries. Minimal mural plaques or hemodynamically significant stenosis are noted. The peak systolic velocities are within normal limits. No evidence of significant stenosis (50%) or hemodynamically significant lesions. Collateral Circulation: No significant collateral circulation was noted indicative of chronic arterial occlusion. Additional Findings: None. IMPRESSION: 1. Triphasic waveforms are noted in the right lower extremity arteries. 2. Minimal mural plaques or hemodynamically significant stenosis is noted. 3. The peak systolic velocities are within normal limits. 4. No evidence of significant stenosis (50%) or hemodynamically significant lesion. Electronically signed by Yury Velez 07-29-2024 06:43 AM Venous Doppler Study 07/29/24 04:18 EXAM: US venous doppler LE RT CLINICAL HISTORY: Swelling, redness and pain in RLE. TECHNIQUE: Ultrasound examination of the right lower extremity veins was performed in real time and duplex. One or more of the following were performed- spectral analysis, resistive index, waveform analysis, and pulsed Doppler. COMPARISON: 03/15/2024 US venous doppler LE. FINDINGS: Normal phasic, non-pulsatile and spontaneous flow is noted in right common femoral, superficial femoral, popliteal and posterior tibial and peroneal veins. Visualized veins of right lower extremity demonstrate normal compressibility. No sonographic evidence of acute deep vein thrombosis (DVT) is detected in the visualized veins of lower extremity. Compression and Augmentation: All evaluated veins compress fully with applied transducer pressure. Augmentation of venous flow is noted with distal compression. Additional Findings: No evidence of intraluminal thrombus. Limited visualization of the calf veins due to pitting edema, severe pain as the patient is unable to tolerate augmentation. IMPRESSION: 1. No sonographic evidence of acute DVT detected at the time of examination. 2. No strandings seen in the right common femoral vein at this time of examination compared to prior study. Disclaimer: DVT could be missed early in the disease when clot burden is minimal. For patients with moderate and high pretest probability of DVT and negative ultrasound, the [employer] clinical guidelines recommend testing with a D-dimer assay or repeat ultrasound in 5-7 days. If symptoms worsen, the Society of radiologists in ultrasound recommends repeating ultrasound even earlier. Electronically signed by Yury Velez 07-29-2024 06:27 AM Chest X-Ray 07/31/24 13:32 XR chest 1V portable CLINICAL HISTORY: cough TECHNIQUE: Single frontal radiograph of the chest was obtained. Comparison: Comparison is made to chest radiograph 07/28/2024 FINDINGS: A port catheter is seen. The cardiomediastinal silhouette is normal. Faint left retrocardiac opacity. Small bilateral pleural effusions are seen. IMPRESSION: 1. Small bilateral pleural effusions. 2. Left retrocardiac opacity. This may represent atelectasis, pneumonia, and/or aspiration. ACT 112: Negative or not required by law. Electronically signed by: Vijay Yuan M.D. 07/31/2024 1:57 PM
--- NOTE | 2024-07-31 13:58 | XRay Report ---
XR chest 1V portable CLINICAL HISTORY: cough TECHNIQUE: Single frontal radiograph of the chest was obtained. Comparison: Comparison is made to chest radiograph 07/28/2024 FINDINGS: A port catheter is seen. The cardiomediastinal silhouette is normal. Faint left retrocardiac opacity. Small bilateral pleural effusions are seen. IMPRESSION: 1. Small bilateral pleural effusions. 2. Left retrocardiac opacity. This may represent atelectasis, pneumonia, and/or aspiration. ACT 112: Negative or not required by law. Electronically signed by: Vijay Yuan M.D. 07/31/2024 1:57 PM
--- NOTE | 2024-07-31 15:13 | Infectious Disease Consult ---
Date of Service July 31, 2024 Telehealth Information I performed this visit using a real-time telehealth connection between my location and the patients location ([facility]). After connecting through interactive tele-video, patient was identified by name and date of and/or wristband check.Patient (or authorized healthcare enrollment representative) was informed that this was a telemedicine visit and it was being conducted confidentially over secure lines. My office door was closed and no one else was present in the room with me.Patient (or authorized healthcare enrollment representative) provided consent to proceed with the visit, expressed an understanding of privacy and security of the telemedicine visit, and gave permission to have a hospital enrollment representative in the room in order to assist with the visit and to conduct portions of the visit, as needed. I informed the patient (or authorized healthcare enrollment representative) that I reviewed their record and presented the opportunity for them to ask any questions regarding the visit today. The patient agreed to participate. 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 If cellulitis worsens on vancomycin monotherapy, provider anti-pseudomonal coverage w/ cefepime iv - Duration to be determined based on clinical response. The patient appears clinically stable. As we will probably treat this patient without any microbiologic diagnosis, I suggest providing a monotherapy w/ vancomycin iv empirically, covering the most common skin pathogens such as MRSA and Strep spp. The patient needs to be monitored closely, however, as her immunocompromised state increases risk of MDR GNR infection as well. I spent a total of 60 minutes coordinating, documenting, and providing care for this patient excluding time spent in the performance of separately billed services or time spent by another provider/QHP. 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 The patient presented to [facility] on 07/29/24 for progressively worsening, severe pain and erythema in LLE (from knee down) w/ black patch on L calf which started a day before Ragley Mandy. No fever on presentation but with significantly elevated WBC, lactate and PCT. An echogenic thrombi was seen in the left common femoral vein as well as the left distal superficial femoral vein with partial compressibility and thickened roth suggesting chronic recanalized DVT. She was empirically started on daptomycin iv and meropenem. The patient is resting in chair: antibiotics seem to be helping. The pain is improving. No f/c, vomiting (but mild nausea this am), diarrhea, abd pain, coughing, cp, sob, or urinary symptoms. Allergies Allergy/AdvReac Type Severity Reaction Status Date / Time amoxicillin AdvReac Intermediate NAUSEA/VOMI Verified 07/27/24 14:10 TING Penicillins AdvReac Intermediate NAUSEA/VOMITING/"FEELS Verified 07/27/24 14:10 NERVOUS" Home Medications Medication Instructions Recorded Confirmed Type acetaminophen 500 mg tablet 500 mg PO Q6H PRN Pain 08/22/23 07/28/24 History (Tylenol Extra Strength) bupropion HCl 150 mg 24 hr tablet, 150 mg PO QAM 08/22/23 07/28/24 History extended release bupropion HCl 300 mg 24 hr tablet, 300 mg PO QAM 08/22/23 07/28/24 History extended release buspirone 10 mg tablet See Rx Instructions .Route .COMPLEX 08/22/23 07/28/24 History calcium 1,000 mg (as 1 tab PO QAM 08/22/23 07/28/24 History carbonate)-vitamin D3 20 mcg (800 unit) tablet cyanocobalamin (vitamin B-12) 1,000 mcg PO QAM 08/22/23 07/28/24 History 1,000 mcg tablet (Vitamin B-12) levothyroxine 150 mcg tablet 150 mcg PO DAILYBB 08/22/23 07/28/24 History lorazepam 0.5 mg tablet 0.5 mg PO DAILY PRN Anxiety 08/22/23 07/28/24 History magnesium oxide 800 mg PO BID 08/22/23 07/28/24 History metoprolol succinate 25 mg 12.5 mg PO QAM 08/22/23 07/28/24 History tablet,extended release 24 hr omeprazole 20 mg capsule,delayed 20 mg PO QAM 08/22/23 07/28/24 History release ondansetron 8 mg disintegrating 8 mg PO Q8H PRN Nausea And Vomiting 08/22/23 07/28/24 History tablet potassium chloride 20 mEq 20 meq PO DAILY 08/22/23 07/28/24 History tablet,extended release prochlorperazine maleate 10 mg 10 mg PO Q8H PRN Nausea 08/22/23 07/28/24 History tablet (Compazine) ergocalciferol (vitamin D2) 1,250 300 unit PO TID 12/25/23 07/28/24 History mcg (50,000 unit) capsule fluoride (sodium) 1.1 % dental 1 applic dental HS 12/25/23 07/28/24 History paste (Sodium Fluoride 5000 Dry Mouth) furosemide 40 mg tablet (Lasix) 40 mg PO QAM 12/25/23 07/28/24 History spironolactone 25 mg tablet 12.5 mg PO QAM PRN swelling 03/14/24 07/28/24 History apixaban 5 mg tablet (Eliquis) 5 mg PO BID 04/16/24 07/28/24 History gabapentin 300 mg capsule 600 mg (2 x 300 mg) PO TID #0 caps 06/18/24 07/28/24 Rx oxycodone-acetaminophen 7.5 mg-325 1 tab PO Q6H PRN pain 1 month #120 06/22/24 07/28/24 Rx mg tablet (Endocet) tabs Patient History Medical History Lymphedema Acute alteration in mental status S/P radiation therapy before bone marrow transplant 12-11-2016 History of diabetes mellitus HX STEROID INDUCED DIABETES, NOW RESOLVED Low blood pressure Sepsis due to Pseudomonas species with acute organ dysfunction and septic shock this happened 100 days after the transplant CMV (cytomegalovirus infection) HX ? PT NOT SURE Autoimmune hepatitis Nausea and vomiting after administration of anesthetic agent Hypothyroidism AML (acute myeloblastic leukemia) diagnosed - CURRENT CHEMOTHERAPY/PORT RIGHT CHEST TMJ disease HX SURGERY, RESOLVED PROBLEM Depression Anxiety Migraine HX Takotsubo cardiomyopathy reason for metoprolol--follows with Dr. 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 History of amputation of toe left big toe History of hemorrhoidectomy History of colonoscopy History of esophagogastroduodenoscopy (EGD) History of vascular access device right APORT History of mandibular surgery TMJ sx--plate in right side of jaw History of tooth extraction History of wisdom tooth extraction History of cardiac cath 2012 in [place]---no stents Family History Sister Family history of diabetes mellitus Mother , age 84 Head and neck cancer COPD (chronic obstructive pulmonary disease) Father , age 75 Esophageal cancer Sister Vertigo Hypertension Sister Hypothyroidism Brother Combined hyperlipidemia Brother Colorectal cancer Brother Gout Brother No problems noted. 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 diffuse erythema was noted above the L distal leg dressing to proximal 1/3 of L leg w/ pitting edema (L >> R), warmth on LLE noted by the nursing staff w/ mild tenderness I have reviewed the picture of the legs provided in EMR: clean based ulcer on R medial leg w/o drainage or erythema. Ecchymotic, coalesced, dark, violacious lesion in C shape on medial side of L leg w/o obvious drainage, diffuse erythema from above ankle to proximal 1/3 of the L leg Results & Data Vital Signs (Past 12 Hours) Vital Signs Temp Pulse Pulse Resp BP Pulse Ox O2 Del Method 07/31/24 12:05 36.3 C L 77 18 92/62 L 98 Room Air 07/31/24 07:52 36.3 C L 80 18 102/67 93 Room Air 07/31/24 07:27 76 07/31/24 07:15 Room Air Laboratory Results Labs WBC 30.76K ->-> 13.86K H 9.1 Plt 123K Cr 0.73 Lactate 3 -> 1.3 LFT ast 60, alt 30, alk phos 210 Troponin 188 ->-> 106.6 PCT 29.4 Diagnostic Findings Blood cx (07/28): NGTD UA (07/29): unremarkable CXR (07/28): No acute cardiopulmonary process or significant alteration from the prior examination. Doppler (07/29): 1. An echogenic thrombi was seen in the left common femoral vein as well as the left distal superficial femoral vein with partial compressibility and thickened roth suggesting chronic recanalized DVT. Rather stable as compared to prior study. 2. No acute superficial thrombus within the left great saphenous vein at this time of examination as compared to the prior study. 3. No sonographic evidence of acute DVT was detected at the time of examination. TTE (07/29): moderate MR Medications Administered ABX Meropenem 07/29- Daptomycin 07/29-
[2024-07-31] MEDS ORDERED: VANCOMYCIN HCL 750 MG in SODIUM CHLORIDE 0.9% 250 ML IV SCH (17:45)
[2024-07-31] MEDS ORDERED: VANCOMYCIN HCL 1,500 MG in SODIUM CHLORIDE 0.9% 500 ML IV ONE (17:45)
[2024-07-31] MEDS ORDERED: VANCOMYCIN CONSULT ACTIVE PRN (17:45)
[2024-07-31] MEDS: VANCOMYCIN HCL 1,250 MG in SODIUM CHLORIDE 0.9% 250 ML IV ONE (19:00)
[2024-07-31 19:55] LABS: Adenovirus PCR Not Detected (NotDetected); Bordetella parapertussis PCR Not Detected (NotDetected); Bordetella pertussis PCR Not Detected (NotDetected); Chlamydia pneumoniae PCR Not Detected (NotDetected); Coronavirus 229E PCR Not Detected (NotDetected); Coronavirus CoV-2 (COVID19)PCR Not Detected (NotDetected); Coronavirus HKU1 PCR Not Detected (NotDetected); Coronavirus NL63 PCR Not Detected (NotDetected); Coronavirus OC43PCR Not Detected (NotDetected); Human Metapneumovirus PCR Not Detected (NotDetected); Influenza A PCR Not Detected (NotDetected); Influenza B PCR Not Detected (NotDetected); Mycoplasma pneumoniae PCR Not Detected (NotDetected); Parainfluenza Virus 1 PCR Not Detected (NotDetected); Parainfluenza Virus 2 PCR Not Detected (NotDetected); Parainfluenza Virus 3 PCR Not Detected (NotDetected); Parainfluenza Virus 4 PCR Not Detected (NotDetected); Respiratory Syncytial VirusPCR Not Detected (NotDetected); Rhinovirus/Enterovirus PCR Not Detected (NotDetected)
[2024-07-31] MEDS: GADOBUTROL 65ML VIAL IV ONE (23:09)
--- NOTE | 2024-08-01 | Magnetic Resonance Report ---
Exam(s): MRI EXTREMITY W/WO Contrast IV Amt: 6ml gadavist EXAM: MR Left Lower Extremity Without and With Intravenous Contrast, Tibia and Fibula CLINICAL HISTORY: Reason for exam: r/o osteomyelitis. TECHNIQUE: Multiplanar magnetic resonance images of the left tibia and fibula without and with intravenous contrast. CONTRAST: Patient received 6ml gadavist of IV contrast COMPARISON: No relevant prior studies available. FINDINGS: There are multiple bone infarcts within the patella, distal femur, distal tibia, and calcaneus. There are no characteristic bone marrow signal changes to suggest acute osteomyelitis. There is no acute fracture or dislocation. There is no evidence of soft tissue abscess on postcontrast imaging. There is no abnormal muscle signal. Circumferential subcutaneous edema is present. IMPRESSION: 1. No evidence of osteomyelitis. 2. Subcutaneous edema, bland edema or cellulitis. 3. No abscess. 4. Multiple bone infarcts. Electronically signed by: Bhargav Candelaria M.D. 07/31/24 23:59 PM
--- NOTE | 2024-08-01 00:04 | Magnetic Resonance Report ---
Exam(s): MRI EXTREMITY W/WO Contrast IV Amt: 6ml gadavist EXAM: MR Right Lower Extremity Without and With Intravenous Contrast, Tibia and Fibula CLINICAL HISTORY: Reason for exam: r/o osteomyelitis. TECHNIQUE: Multiplanar magnetic resonance images of the right tibia and fibula without and with intravenous contrast. CONTRAST: Patient received 6ml gadavist of IV contrast COMPARISON: No relevant prior studies available. FINDINGS: There are multiple bone infarcts within the distal femur, proximal tibia, and calcaneus. There are no characteristic bone marrow signal changes to suggest osteomyelitis. There is no fracture or dislocation. There is circumferential subcutaneous edema of the leg. There is no evidence of soft tissue abscess on postcontrast imaging. There is patchy muscle edema corresponding to regions of muscle atrophy. However, there is more focal edema in the upper extensor muscles of the leg with corresponding enhancement. IMPRESSION: 1. Circumferential subcutaneous edema, planned edema or cellulitis. 2. Edema and mild enhancement within the upper extensor muscles of the leg. This could represent muscle injury or a mild myositis. 3. No evidence of abscess. 4. No evidence of osteomyelitis. 5. Multiple bone infarcts. Electronically signed by: Bhargav Candelaria M.D. 08/01/24 00:02 AM
[2024-08-01] MEDS ORDERED: COUGH DROP (SUGAR FREE) LOZ 24 LOZ/1 BOX BUCCAL PRN (02:18)
[2024-08-01] MEDS: VANCOMYCIN HCL 1,000 MG/270 ML BAG IV SCH (03:31)
[2024-08-01 06:00] LABS: Basophils # (auto) 0.04 K/uL (0.00-0.20); Basophils % (auto) 0.3 %; Eosinophils # (auto) 0.35 K/uL (0.00-0.50); Eosinophils % (auto) 2.7 %; Hematocrit (blood only) 29.4 % (37.0-47.0); Hemoglobin 9.8 g/dl (12.0-16.0); Immature Granulocytes # (auto) 0.08 K/uL (0.01-0.20); Immature Granulocytes % (auto) 0.6 %; Lymphocytes # (auto) 1.16 K/uL (1.20-3.40); Lymphocytes % (auto) 9.1 %; Mean Corpuscular Hemoglobin 36.7 pg (25.0-34.0); Mean Corpuscular Hgb Conc 33.3 g/dL (32.0-36.0); Mean Corpuscular Volume 110.1 fL (80.0-100.0); Mean Platelet Volume 9.9 fL (9.4-12.4); Monocytes # (auto) 1.03 K/uL (0.11-0.59); Monocytes % (auto) 8.1 %; Neutrophils # (auto) 10.09 K/uL (1.40-6.50); Neutrophils % (auto) 79.2 %; Platelet Count 125 K/uL (130-400); RDW Coefficient of Variation 13.9 % (11.5-14.5); RDW Standard Deviation 56.1 fL (36.4-46.3); Red Blood Count 2.67 M/uL (4.20-5.40); White Blood Count 12.75 K/ul (4.8-10.8)
[2024-08-01 06:20] LABS: Macrocytosis Present; Polychromasia 1+
[2024-08-01 06:26] LABS: BUN Creatinine Ratio 14.3 (10-20); Bilirubin,Total 0.5 mg/dl (0.2-1.0); Calcium 7.9 mg/dl (8.6-10.3); Creatinine Clr Calc Pharmacy 78.3 ml/min; Globulin 2.1 gm/dl (2.5-4.0); Magnesium 1.6 mg/dl (1.7-2.4); Phosphorus 2.2 mg/dl (2.5-4.9); Potassium 4.6 mmol/L (3.5-5.1); Total Protein 4.1 gm/dl (6.0-8.3)
[2024-08-01] MEDS ORDERED: MAGNESIUM OXIDE 400 MG TAB PO SCH (09:30)
--- NOTE | 2024-08-01 10:16 | Electrocardiogram Report ---
Test Reason : Blood Pressure : */* mmHG Vent. Rate : 79 BPM Atrial Rate : 78 BPM P-R Int : 192 ms QRS Dur : 74 ms QT Int : 410 ms P-R-T Axes : * 6 172 degrees QTcB Int : 470 ms Normal sinus rhythm Low voltage QRS T wave abnormality in multiple leads consider ischemia vs metabolic abnormality Prolonged QT Abnormal ECG When compared with ECG of 28-Jul-2024 21:25, T wave inversion no longer evident in Inferior leads T wave inversion more evident in Anterior leads Confirmed by Lydia Cutler (Rakesh) on 08/01/2024 10:15:38 AM Referred By: REFERRED SELF Confirmed By: Lydia Cutler
[2024-08-01] MEDS: MAGNESIUM CHLORIDE W/CALCIUM 64MG DELAYED REL TAB PO SCH (10:22)
--- NOTE | 2024-08-01 12:11 | Pharmacy Report ---
Pharmacy PK ABX Note - Date of Service August 01, 2024 - Assessment and Plan Assessment 69 year old F receiving IV Vancomycin monotherapy for treatment of LLE Cellulitis. 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 Pertinent microbiologic data includes: Blood cultures no growth x 48 hours, leg culture pending. WBCs trending down, afebrile. ID Consult, per ID if cellulitis worsens on vancomycin monotherapy, provide anti-pseudomonal coverage with cefepime. Duration to be determined based on clinical response. Day # 2 of Vancomycin therapy. Plan Vancomycin * Loading dose: 1250 mg IV x 1 * Maintenance dose: 1000 mg IV every 12 hours * Regimen is predicted to achieve target AUC/VALERIO of 400-600 mg/L.hr * Trough level ordered for: 08/02/24 Pharmacy will continue to follow and will adjust dose/frequency as necessary. Thank you. Pharmacy has transitioned to AUC monitoring for vancomycin. AUC/VALERIO is the preferred PK/PD target and is associated with decreased risk of nephrotoxicity compared to traditional trough targets.
--- NOTE | 2024-08-01 13:38 | Hospitalist Progress Note ---
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 Patient has a chronic venous ulcer in the right lower extremity in the [place] region and she is following with wound care. Severe sepsis Cellulitis of the left lower extremity Chronic Venous Ulcer, RLE Has chronic venous ulcer on the right lower extremity Lactate elevated before downtrending after IV fluid resuscitation Significant leukocytosis, 30K on admission, downtrending Doppler US- no DVT bilaterally MRI bilateral extremities ordered and noting cellulitis, myositis (mild) and bone infarcts Blood Cx x 2 sets ordered -NGTD Wound culture RLE ordered-NGTD Received cefepime and Dapto in ER, transitioned to IV meropenem and Dapto ID consulted, appreciate recs. Recommended/stated the following: "Recommendations: - Stop meropenem and daptomycin - Start vancomycin iv to maintain trough 15 and above or AUC 400-600 - F/u blood cultures - Monitor closely. If cellulitis worsens on vancomycin monotherapy, provider anti-pseudomonal coverage w/ cefepime iv - Duration to be determined based on clinical response. The patient appears clinically stable. As we will probably treat this patient without any microbiologic diagnosis, I suggest providing a monotherapy w/ vancomycin iv empirically, covering the most common skin pathogens such as MRSA and Strep spp. The patient needs to be monitored closely, however, as her immunocompromised state increases risk of MDR GNR infection as well." Pt transitioned to IV Vancomycin on 07/31/24 Continue to monitor bilateral lower extremity edema/lymphedema Possibly from medications, DVT, malnutrition and mitral valve prolapse Diuretics and compression stocks were recommended Holding home diuretics (Lasix 40mg and spironolactone) as patient currently hypotensive Will monitor. Acute Cough New per pt, concerned XR chest ordered Viral Resp panel ordered Speech consult, r/o aspiration Continue to monitor Elevated troponin Possible non-ST elevated HI History of mitral valve prolapse History of Takotsubo cardiomyopathy EKG with T inversion in inferolateral leads Patient denies chest pain shortness of breath Initial troponin 197, then downtrended Echo noted"normal LV size, concentric LVH, LV wall motion is normal, EF is 65 to 70%, aortic valve leaflets are not well-visualized mild focal calcification, no hemodynamically significant valvular aortic stenosis, mitral valve thickness is normal and there is more moderate mitral regurgitation" Patient is on Eliquis Hypocalcemia Hypomagnesia replete as needed Diet controlled diabetes HbA1c 4.4 in March 2024 Monitor glucose levels Refractory AML and leukemia cutis Currently chemotherapy on hold for lower extremity wounds and overall general condition Follow-up with heme-onc after discharge Elevated alkaline phosphatase chronic Will monitor Chronic DVT and superficial thrombus On Eliquis, continue Depression General Anxiety disorder Will continue home medications Hypothyroidism On Synthroid Chronic pain in right lower extremity On Percocet as needed at home States she follows with Palliative Care Diet: HH DVT prophylaxis: On Eliquis Dispo: pending pt/ot recs Admission and Anticipated Discharge Date Admission Date: July 29, 2024 Subjective Patient was seen sitting up in bed Denied acute concerns today, notes that she has been calling family members to keep them updated Review of Systems Review of Systems: All systems reviewed & are unremarkable except as noted in Subjective Physical Exam Physical Exam: General: Alert, oriented Skin:erythema of L>R leg with noted swelling Psych: Appropriate mood and affect Neuro: difficulty with movements HEENT: NC/AT CV: RRR Resp: Breath sounds clear bilaterally, no increased effort of breathing Abdomen: Soft, nontender Extremities: erythema of L>R leg with noted swelling Results & Data Results & Data Vital Signs (Past 12 Hours) Vital Signs Temp Pulse Pulse Resp BP Pulse Ox O2 Del Method 08/01/24 11:31 36.4 C L 80 18 94/61 L 95 Room Air 08/01/24 08:04 36.4 C L 81 16 110/72 95 Room Air 08/01/24 07:41 73 08/01/24 02:40 36.3 C L 73 16 93/62 L 95 Room Air
[2024-08-01] MEDS: POT PHOSPHATE MONOBASIC W/ SOD TAB PO SCH (14:07)
[2024-08-01] MEDS: PROMETHAZINE 6.25 MG/50.25 ML BAG IV PRN (21:20)
[2024-08-02] MEDS: VANCOMYCIN LEVEL ONE (04:33)
[2024-08-02 04:34] LABS: Basophils # (auto) 0.04 K/uL (0.00-0.20); Basophils % (auto) 0.4 %; Eosinophils # (auto) 0.39 K/uL (0.00-0.50); Eosinophils % (auto) 3.6 %; Hematocrit (blood only) 30.7 % (37.0-47.0); Hemoglobin 10.4 g/dl (12.0-16.0); Immature Granulocytes # (auto) 0.12 K/uL (0.01-0.20); Immature Granulocytes % (auto) 1.1 %; Lymphocytes # (auto) 1.67 K/uL (1.20-3.40); Lymphocytes % (auto) 15.4 %; Mean Corpuscular Hemoglobin 37.4 pg (25.0-34.0); Mean Corpuscular Hgb Conc 33.9 g/dL (32.0-36.0); Mean Corpuscular Volume 110.4 fL (80.0-100.0); Mean Platelet Volume 10.4 fL (9.4-12.4); Monocytes # (auto) 1.76 K/uL (0.11-0.59); Monocytes % (auto) 16.2 %; Neutrophils # (auto) 6.86 K/uL (1.40-6.50); Neutrophils % (auto) 63.3 %; Platelet Count 141 K/uL (130-400); RDW Coefficient of Variation 13.8 % (11.5-14.5); RDW Standard Deviation 55.8 fL (36.4-46.3); Red Blood Count 2.78 M/uL (4.20-5.40); White Blood Count 10.84 K/ul (4.8-10.8)
[2024-08-02 04:49] LABS: Albumin Level 2.1 gm/dl (3.4-5.0); BUN Creatinine Ratio 13.6 (10-20); Bilirubin,Total 0.6 mg/dl (0.2-1.0); Calcium 7.7 mg/dl (8.6-10.3); Creatinine Clr Calc Pharmacy 83.6 ml/min; Globulin 2.2 gm/dl (2.5-4.0); Magnesium 1.4 mg/dl (1.7-2.4); Phosphorus 2.9 mg/dl (2.5-4.9); Potassium 4.2 mmol/L (3.5-5.1); Total Protein 4.3 gm/dl (6.0-8.3)
[2024-08-02 05:03] LABS: Macrocytosis Present
[2024-08-02] MEDS: MAGNESIUM SULFATE / D5W 1 GM/100 ML BAG IV SCH (09:15)
--- NOTE | 2024-08-02 10:03 | Pharmacy Report ---
Pharmacy PK ABX Note - Date of Service August 02, 2024 - Assessment and Plan Assessment * 69 year old F receiving IV Vancomycin monotherapy for treatment of LLE Cellulitis. * PMHx of AML s/p MUD PBSC allogeneic HSCT (12/2016), leukemia cutis on chemo (but chemo held for past 5 weeks), ITP, chronic vascular ulcer on RLE. * Pertinent microbiologic data includes: Blood cultures no growth x 48 hours, leg culture no growth to date * WBCs trending down, afebrile. * ID Consult, per ID if cellulitis worsens on vancomycin monotherapy, provide anti-pseudomonal coverage with cefepime. Duration to be determined based on clinical response. * Day # 3 of Vancomycin therapy. Plan Vancomycin * Target AUC/VALERIO of 400-600 mg/L.hr * Level of 16.2 mcg/mL today associated with a therapeutic AUC for another ~24 hours, but then will become slightly supratherapeutic at 611 mg/L.hr. Will reduce dose slightly * Reduce maintenance dose from 1000 to 750 mg IV every 12 hours * Random level ordered for 08/04 AM Pharmacy will continue to follow and will adjust dose/frequency as necessary. Thank you. Pharmacy has transitioned to AUC monitoring for vancomycin. AUC/VALERIO is the preferred PK/PD target and is associated with decreased risk of nephrotoxicity compared to traditional trough targets.
--- NOTE | 2024-08-02 14:31 | Hospitalist Progress Note ---
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 Patient has a chronic venous ulcer in the right lower extremity in the [place] region and she is following with wound care. Severe sepsis Cellulitis of the left lower extremity Chronic Venous Ulcer, RLE Has chronic venous ulcer on the right lower extremity Lactate elevated before downtrending after IV fluid resuscitation Significant leukocytosis, 30K on admission, downtrending Doppler US- no DVT bilaterally MRI bilateral extremities ordered and noting cellulitis, myositis (mild) and bone infarcts Blood Cx x 2 sets ordered -NGTD Wound culture RLE ordered-NGTD Received cefepime and Dapto in ER, transitioned to IV meropenem and Dapto ID consulted, appreciate recs. Recommended/stated the following: "Recommendations: - Stop meropenem and daptomycin - Start vancomycin iv to maintain trough 15 and above or AUC 400-600 - F/u blood cultures - Monitor closely. If cellulitis worsens on vancomycin monotherapy, provider anti-pseudomonal coverage w/ cefepime iv - Duration to be determined based on clinical response. The patient appears clinically stable. As we will probably treat this patient without any microbiologic diagnosis, I suggest providing a monotherapy w/ vancomycin iv empirically, covering the most common skin pathogens such as MRSA and Strep spp. The patient needs to be monitored closely, however, as her immunocompromised state increases risk of MDR GNR infection as well." Pt transitioned to IV Vancomycin on 07/31/24 Continue to monitor 08/02- follow up with ID once more on Mon 08/03 bilateral lower extremity edema/lymphedema Possibly from medications, DVT, malnutrition and mitral valve prolapse Diuretics and compression stocks were recommended Holding home diuretics (Lasix 40mg and spironolactone) as patient currently hypotensive Will monitor. Acute Cough New per pt, concerned XR chest ordered Viral Resp panel ordered Speech consult, r/o aspiration Continue to monitor Elevated troponin Possible non-ST elevated PR History of mitral valve prolapse History of Takotsubo cardiomyopathy EKG with T inversion in inferolateral leads Patient denies chest pain shortness of breath Initial troponin 197, then downtrended Echo noted"normal LV size, concentric LVH, LV wall motion is normal, EF is 65 to 70%, aortic valve leaflets are not well-visualized mild focal calcification, no hemodynamically significant valvular aortic stenosis, mitral valve thickness is normal and there is more moderate mitral regurgitation" Patient is on Eliquis Hypocalcemia Hypomagnesia replete as needed Diet controlled diabetes HbA1c 4.4 in March 2024 Monitor glucose levels Refractory AML and leukemia cutis Currently chemotherapy on hold for lower extremity wounds and overall general condition Follow-up with heme-onc after discharge Elevated alkaline phosphatase chronic Will monitor Chronic DVT and superficial thrombus On Eliquis, continue Depression General Anxiety disorder Will continue home medications Hypothyroidism On Synthroid Chronic pain in right lower extremity On Percocet as needed at home States she follows with Palliative Care Diet: HH DVT prophylaxis: On Eliquis Dispo: pending pt/ot recs Admission and Anticipated Discharge Date Admission Date: July 29, 2024 Subjective patient was seen with at bedside They are concerned about fatigue and its possible relation to starting vancomycin Notes improvement in lower extremity redness Otherwise denies acute concerns 's questions answered Review of Systems Review of Systems: All systems reviewed & are unremarkable except as noted in Subjective Physical Exam Physical Exam: General: Alert, oriented Skin:erythema of L>R leg with noted swelling Psych: Appropriate mood and affect Neuro: difficulty with movements HEENT: NC/AT CV: RRR Resp: Breath sounds clear bilaterally, no increased effort of breathing Abdomen: Soft, nontender Extremities: erythema of L>R leg with noted swelling Results & Data Results & Data Vital Signs (Past 12 Hours) Vital Signs Temp Pulse Pulse Resp BP BP Pulse Ox 08/02/24 14:23 36.3 C L 90 19 94/66 L 93 08/02/24 12:25 36.5 C 87 18 92/58 L 98 08/02/24 08:12 89 08/02/24 07:33 36.7 C 97 H 17 106/71 92 08/02/24 05:00 08/02/24 02:43 36.6 C 92 H 20 100/68 94 Pulse Ox O2 Del Method O2 Del Method 08/02/24 14:23 Room Air 08/02/24 12:25 Room Air 08/02/24 08:12 08/02/24 07:33 Room Air 08/02/24 05:00 94 Room Air 08/02/24 02:43 Room Air
[2024-08-02] MEDS: VANCOMYCIN 750 MG in SODIUM CHLORIDE 0.9% 250 ML IV SCH (20:39)
[2024-08-03 06:25] LABS: Basophils # (auto) 0.04 K/uL (0.00-0.20); Basophils % (auto) 0.3 %; Eosinophils # (auto) 0.25 K/uL (0.00-0.50); Eosinophils % (auto) 1.9 %; Hematocrit (blood only) 29.4 % (37.0-47.0); Hemoglobin 10.1 g/dl (12.0-16.0); Immature Granulocytes # (auto) 0.16 K/uL (0.01-0.20); Immature Granulocytes % (auto) 1.2 %; Lymphocytes # (auto) 1.64 K/uL (1.20-3.40); Lymphocytes % (auto) 12.7 %; Mean Corpuscular Hemoglobin 37.4 pg (25.0-34.0); Mean Corpuscular Hgb Conc 34.4 g/dL (32.0-36.0); Mean Corpuscular Volume 108.9 fL (80.0-100.0); Mean Platelet Volume 10.5 fL (9.4-12.4); Monocytes # (auto) 2.18 K/uL (0.11-0.59); Monocytes % (auto) 16.8 %; Neutrophils # (auto) 8.68 K/uL (1.40-6.50); Neutrophils % (auto) 67.1 %; Platelet Count 138 K/uL (130-400); RDW Coefficient of Variation 13.7 % (11.5-14.5); RDW Standard Deviation 54.4 fL (36.4-46.3); White Blood Count 12.95 K/ul (4.8-10.8)
[2024-08-03 06:56] LABS: Albumin Globulin Ratio 0.8 (0.9-2); Albumin Level 1.9 gm/dl (3.4-5.0); BUN Creatinine Ratio 11.5 (10-20); Bilirubin,Total 0.6 mg/dl (0.2-1.0); Calcium 7.6 mg/dl (8.6-10.3); Creatinine Clr Calc Pharmacy 81.5 ml/min; Globulin 2.3 gm/dl (2.5-4.0); Magnesium 1.8 mg/dl (1.7-2.4); Phosphorus 3.8 mg/dl (2.5-4.9); Potassium 3.5 mmol/L (3.5-5.1); Total Protein 4.2 gm/dl (6.0-8.3)
--- NOTE | 2024-08-03 16:39 | Hospitalist Progress Note ---
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 Patient has a chronic venous ulcer in the right lower extremity in the [place] region and she is following with wound care. Severe sepsis Cellulitis of the left lower extremity Chronic Venous Ulcer, RLE Has chronic venous ulcer on the right lower extremity Lactate elevated before downtrending after IV fluid resuscitation Significant leukocytosis, 30K on admission, downtrending Doppler US- no DVT bilaterally MRI bilateral extremities ordered and noting cellulitis, myositis (mild) and bone infarcts Blood Cx x 2 sets ordered -NGTD Wound culture RLE ordered-NGTD Received cefepime and Dapto in ER, transitioned to IV meropenem and Dapto ID consulted, appreciate recs. Recommended/stated the following: "Recommendations: - Stop meropenem and daptomycin - Start vancomycin iv to maintain trough 15 and above or AUC 400-600 - F/u blood cultures - Monitor closely. If cellulitis worsens on vancomycin monotherapy, provider anti-pseudomonal coverage w/ cefepime iv - Duration to be determined based on clinical response. The patient appears clinically stable. As we will probably treat this patient without any microbiologic diagnosis, I suggest providing a monotherapy w/ vancomycin iv empirically, covering the most common skin pathogens such as MRSA and Strep spp. The patient needs to be monitored closely, however, as her immunocompromised state increases risk of MDR GNR infection as well." Pt transitioned to IV Vancomycin on 07/31/24 Continue to monitor 08/02- follow up with ID once more on Mon 08/03 08/03- case discussed with Dr Pete who recommended transitioning to oral Linezolid 600 mg BID to complete a 14 course. Consider ortho input for bone infarcts noted bilateral lower extremity edema/lymphedema Possibly from medications, DVT, malnutrition and mitral valve prolapse Diuretics and compression stocks were recommended Holding home diuretics (Lasix 40mg and spironolactone) as patient currently hypotensive Will monitor. Acute Cough New per pt, concerned XR chest ordered Viral Resp panel ordered Speech consult, r/o aspiration Continue to monitor improved Diarrhea Started with diarrhea on 08/03 c diff testing ordered stool cx not an option given pt hosp more than 72hrs PRN loperamide if c diff negative Elevated troponin Possible non-ST elevated [place] History of mitral valve prolapse History of Takotsubo cardiomyopathy EKG with T inversion in inferolateral leads Patient denies chest pain shortness of breath Initial troponin 197, then downtrended Echo noted"normal LV size, concentric LVH, LV wall motion is normal, EF is 65 to 70%, aortic valve leaflets are not well-visualized mild focal calcification, no hemodynamically significant valvular aortic stenosis, mitral valve thickness is normal and there is more moderate mitral regurgitation" Patient is on Eliquis Hypocalcemia Hypomagnesia replete as needed Diet controlled diabetes HbA1c 4.4 in March 2024 Monitor glucose levels Refractory AML and leukemia cutis Currently chemotherapy on hold for lower extremity wounds and overall general condition Follow-up with heme-onc after discharge Elevated alkaline phosphatase chronic Will monitor Chronic DVT and superficial thrombus On Eliquis, continue Depression General Anxiety disorder Will continue home medications Hypothyroidism On Synthroid Chronic pain in right lower extremity On Percocet as needed at home States she follows with Palliative Care Diet: HH DVT prophylaxis: On Eliquis Dispo: pending pt/ot recs Admission and Anticipated Discharge Date Admission Date: July 29, 2024 Subjective patient was seen with at bedside They are concerned about fatigue and its possible relation to starting vancomycin Notes improvement in lower extremity redness Otherwise denies acute concerns 's questions answered Review of Systems Review of Systems: All systems reviewed & are unremarkable except as noted in Subjective Physical Exam Physical Exam: General: Alert, oriented Skin:erythema of L>R leg with noted swelling Psych: Appropriate mood and affect Neuro: difficulty with movements HEENT: NC/AT CV: RRR Resp: Breath sounds clear bilaterally, no increased effort of breathing Abdomen: Soft, nontender Extremities: erythema of L>R leg with noted swelling, improved Results & Data Results & Data Vital Signs (Past 12 Hours) Vital Signs Temp Pulse Pulse Resp BP Pulse Ox Pulse Ox 08/03/24 14:45 100 H 08/03/24 14:31 36.3 C L 82 16 100/65 94 08/03/24 11:54 36.4 C L 89 16 83/54 L 96 08/03/24 11:40 08/03/24 07:35 36.6 C 87 16 109/73 93 08/03/24 05:59 83 08/03/24 05:00 93 O2 Del Method O2 Del Method 08/03/24 14:45 08/03/24 14:31 Room Air 08/03/24 11:54 Room Air 08/03/24 11:40 Room Air 08/03/24 07:35 Room Air 08/03/24 05:59 08/03/24 05:00 Room Air
[2024-08-03] MEDS: LINEZOLID 600 MG TAB PO SCH (20:32)
[2024-08-04 06:26] LABS: Basophils # (auto) 0.05 K/uL (0.00-0.20); Basophils % (auto) 0.5 %; Eosinophils # (auto) 0.35 K/uL (0.00-0.50); Eosinophils % (auto) 3.3 %; Hematocrit (blood only) 27.9 % (37.0-47.0); Hemoglobin 9.3 g/dl (12.0-16.0); Immature Granulocytes # (auto) 0.18 K/uL (0.01-0.20); Immature Granulocytes % (auto) 1.7 %; Lymphocytes # (auto) 1.79 K/uL (1.20-3.40); Lymphocytes % (auto) 16.9 %; Mean Corpuscular Hemoglobin 37.2 pg (25.0-34.0); Mean Corpuscular Hgb Conc 33.3 g/dL (32.0-36.0); Mean Corpuscular Volume 111.6 fL (80.0-100.0); Mean Platelet Volume 10.6 fL (9.4-12.4); Monocytes # (auto) 1.63 K/uL (0.11-0.59); Monocytes % (auto) 15.4 %; Neutrophils # (auto) 6.57 K/uL (1.40-6.50); Neutrophils % (auto) 62.2 %; Platelet Count 121 K/uL (130-400); RDW Standard Deviation 56.8 fL (36.4-46.3); White Blood Count 10.57 K/ul (4.8-10.8)
[2024-08-04 06:35] LABS: BUN Creatinine Ratio 12.1 (10-20); Calcium 7.3 mg/dl (8.6-10.3); Creatinine Clr Calc Pharmacy 75.2 ml/min; Magnesium 1.6 mg/dl (1.7-2.4); Phosphorus 3.7 mg/dl (2.5-4.9); Potassium 3.7 mmol/L (3.5-5.1)
[2024-08-04 07:14] LABS: Basophilic Stippling 1+; Hypochromasia Present; Macrocytosis Present; Polychromasia 1+
[2024-08-04] MEDS ORDERED: VANCOMYCIN LEVEL ONE (08:30)
[2024-08-04] MEDS: MAGNESIUM SULFATE / D5W 1 GM/100 ML BAG IV SCH (08:51)
[2024-08-04] MEDS: DEXTROSE 5% 500 ML IV SCH (13:58)
--- NOTE | 2024-08-04 15:17 | Hospitalist Progress Note ---
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 Patient has a chronic venous ulcer in the right lower extremity in the [place] region and she is following with wound care. Severe sepsis Cellulitis of the left lower extremity Chronic Venous Ulcer, RLE Has chronic venous ulcer on the right lower extremity Lactate elevated before downtrending after IV fluid resuscitation Significant leukocytosis, 30K on admission, downtrending Doppler US- no DVT bilaterally MRI bilateral extremities ordered and noting cellulitis, myositis (mild) and bone infarcts Blood Cx x 2 sets ordered -NGTD Wound culture RLE ordered-NGTD Received cefepime and Dapto in ER, transitioned to IV meropenem and Dapto ID consulted, appreciate recs. Recommended/stated the following: "Recommendations: - Stop meropenem and daptomycin - Start vancomycin iv to maintain trough 15 and above or AUC 400-600 - F/u blood cultures - Monitor closely. If cellulitis worsens on vancomycin monotherapy, provider anti-pseudomonal coverage w/ cefepime iv - Duration to be determined based on clinical response. The patient appears clinically stable. As we will probably treat this patient without any microbiologic diagnosis, I suggest providing a monotherapy w/ vancomycin iv empirically, covering the most common skin pathogens such as MRSA and Strep spp. The patient needs to be monitored closely, however, as her immunocompromised state increases risk of MDR GNR infection as well." Pt transitioned to IV Vancomycin on 07/31/24 Continue to monitor 08/02- follow up with ID once more on Mon 08/03 08/03- case discussed with Dr Pete who recommended transitioning to oral Linezolid 600 mg BID to complete a 14 course. Consider ortho input for bone infarcts noted 08/04- bone infarcts discussed with Dr Paulino from Orthopedics, noted no consult needed for follow up, notes it just represents a prior vascular insult. bilateral lower extremity edema/lymphedema Possibly from medications, DVT, malnutrition and mitral valve prolapse Diuretics and compression stocks were recommended Holding home diuretics (Lasix 40mg and spironolactone) as patient currently hypotensive Will monitor. Hypernatremia, mild D5W prn Continue to monitor Acute Cough New per pt, concerned XR chest ordered Viral Resp panel ordered Speech consult, r/o aspiration Continue to monitor improved Diarrhea Started with diarrhea on 08/03 c diff testing ordered stool cx not an option given pt hosp more than 72hrs PRN loperamide if c diff negative Elevated troponin Possible non-ST elevated [place] History of mitral valve prolapse History of Takotsubo cardiomyopathy EKG with T inversion in inferolateral leads Patient denies chest pain shortness of breath Initial troponin 197, then downtrended Echo noted"normal LV size, concentric LVH, LV wall motion is normal, EF is 65 to 70%, aortic valve leaflets are not well-visualized mild focal calcification, no hemodynamically significant valvular aortic stenosis, mitral valve thickness is normal and there is more moderate mitral regurgitation" Patient is on Eliquis Hypocalcemia Hypomagnesia replete as needed Diet controlled diabetes HbA1c 4.4 in March 2024 Monitor glucose levels Refractory AML and leukemia cutis Currently chemotherapy on hold for lower extremity wounds and overall general condition Follow-up with heme-onc after discharge Elevated alkaline phosphatase chronic Will monitor Chronic DVT and superficial thrombus On Eliquis, continue Depression General Anxiety disorder Will continue home medications Hypothyroidism On Synthroid Chronic pain in right lower extremity On Percocet as needed at home States she follows with Palliative Care Diet: HH DVT prophylaxis: On Eliquis Dispo: [facility] in the AM Admission and Anticipated Discharge Date Admission Date: July 29, 2024 Review of Systems Review of Systems: All systems reviewed & are unremarkable except as noted in Subjective Physical Exam Physical Exam: General: Alert, oriented Skin:erythema of L>R leg with noted swelling Psych: Appropriate mood and affect Neuro: difficulty with movements HEENT: NC/AT CV: RRR Resp: Breath sounds clear bilaterally, no increased effort of breathing Abdomen: Soft, nontender Extremities: erythema of L>R leg with noted swelling, improved Results & Data Results & Data Vital Signs (Past 12 Hours) Vital Signs Temp Pulse Pulse Resp BP BP Pulse Ox 08/04/24 14:53 88 08/04/24 11:14 36.4 C L 93 H 16 85/59 L 95 08/04/24 08:14 36.8 C 91 H 17 102/69 95 08/04/24 07:30 94 H 08/04/24 03:21 36.6 C 93 H 18 94/57 L 93 O2 Del Method 08/04/24 14:53 08/04/24 11:14 Room Air 08/04/24 08:14 Room Air 08/04/24 07:30 08/04/24 03:21 Room Air
[2024-08-04] MEDS: LOPERAMIDE HCL 2 MG CAP PO PRN (20:28)
[2024-08-05 04:59] VITALS: RESP 16
[2024-08-05 06:06] LABS: Basophils # (auto) 0.02 K/uL (0.00-0.20); Basophils % (auto) 0.2 %; Eosinophils # (auto) 0.44 K/uL (0.00-0.50); Hematocrit (blood only) 26.2 % (37.0-47.0); Hemoglobin 8.8 g/dl (12.0-16.0); Immature Granulocytes # (auto) 0.11 K/uL (0.01-0.20); Immature Granulocytes % (auto) 1.2 %; Lymphocytes % (auto) 15.8 %; Mean Corpuscular Hemoglobin 37.3 pg (25.0-34.0); Mean Corpuscular Hgb Conc 33.6 g/dL (32.0-36.0); Mean Platelet Volume 10.5 fL (9.4-12.4); Monocytes # (auto) 1.02 K/uL (0.11-0.59); Monocytes % (auto) 11.5 %; Neutrophils # (auto) 5.87 K/uL (1.40-6.50); Neutrophils % (auto) 66.3 %; Platelet Count 105 K/uL (130-400); RDW Coefficient of Variation 13.6 % (11.5-14.5); RDW Standard Deviation 54.4 fL (36.4-46.3); Red Blood Count 2.36 M/uL (4.20-5.40); White Blood Count 8.86 K/ul (4.8-10.8)
[2024-08-05 06:24] LABS: BUN Creatinine Ratio 14.5 (10-20); Calcium 7.3 mg/dl (8.6-10.3); Creatinine Clr Calc Pharmacy 90.6 ml/min; Magnesium 1.8 mg/dl (1.7-2.4); Phosphorus 3.7 mg/dl (2.5-4.9); Potassium 3.3 mmol/L (3.5-5.1)
[2024-08-05 06:33] LABS: Macrocytosis Present; Polychromasia 1+
[2024-08-05] MEDS: POTASSIUM CHLORIDE 20 MEQ/15 ML UDC PO STA (09:52)
[2024-08-05 11:03] VITALS: PULSE 82; TEMP 97.2; O2SAT 97
[2024-08-05] MEDS: MIDODRINE HCL 2.5 MG TAB PO SCH (11:04)
[2024-08-05] MEDS: MIDODRINE HCL 2.5 MG TAB PO STA (12:06)
[2024-08-05 13:03] VITALS: BP 95/63
--- NOTE | 2024-08-05 13:53 | Discharge Summary ---
Discharge Summary Date of Service August 05, 2024 Principal Dx & Hospital Course #1 = Principal Diagnosis (1) Severe sepsis: Plan Ms. 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 Patient evaluated by ID given risks for MDR, therefore patient treated with monotherapy with vancomycin then transitioned to linezolid on discharge. Patient with improving symptoms, but some pain near open wounds sites which were followed by wound care, including a chronic venous ulcer in the right lower extremity. Patient with ongoing history of hypotension. AM cortisol 18. Started on midodrine. #Severe sepsis #Cellulitis of the left lower extremity #Chronic Venous Ulcer, RLE ID consulted, appreciate recs. Recommended/stated the following: case discussed with Dr Pete who recommended transitioning to oral Linezolid 600 mg BID to complete a 14 course. Ortho conversation from prior hospitalists"bone infarcts discussed with Dr Paulino from Orthopedics, noted no consult needed for follow up, notes it just represents a prior vascular insult." #bilateral lower extremity edema/lymphedema Possibly from medications, DVT, malnutrition and mitral valve prolapse compression stocks were recommended diuretics discontinued 2/2 hypotension #Hypernatremia, mild D5W prn resolved #Elevated troponin iso demand from hypotension/dehydration #History of mitral valve prolapse #History of Takotsubo cardiomyopathy EKG with T inversion in inferolateral leads Patient denies chest pain shortness of breath Initial troponin 197, then downtrended Echo noted"normal LV size, concentric LVH, LV wall motion is normal, EF is 65 to 70%, aortic valve leaflets are not well-visualized mild focal calcification, no hemodynamically significant valvular aortic stenosis, mitral valve thickness is normal and there is more moderate mitral regurgitation" Patient is on Eliquis #Hypocalcemia #Hypomagnesia replete as needed #Diet controlled diabetes HbA1c 4.4 in March 2024 Monitor glucose levels #Refractory AML and leukemia cutis Currently chemotherapy on hold for lower extremity wounds and overall general condition Follow-up with heme-onc after discharge #Chronic DVT and superficial thrombus On Eliquis, continue #Depression #General Anxiety disorder Will continue home medications #Hypothyroidism On Synthroid #Chronic pain in right lower extremity On Percocet as needed at home States she follows with Palliative Care Notes For Next Care Provider Medication Changes From Visit Midodrine 2.5mg TID Linezolid 600mg bid x 11 more days Admission HPI Per Admitting Provider 69-year-old female with past medical history significant for diet-controlled diabetes, hypothyroidism, history of hypokalemia and hypomagnesia, history of Takotsubo cardiomyopathy, history of mitral valve prolapse, history of autoimmune hepatitis, history of GERD, chronic diarrhea, amputation of the left great toe, history of syncope, history of AML, AML relapse , history of leukemia cutis, chemotherapy induced neutropenia, history of ITP, 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 Patient has chronic venous ulcer in the right lower extremity in the clark region and she is following with the wound care. The wound was wrapped couple of days ago by wound care. She takes Percocet for the pain in the right lower extremity. But today morning she noticed severe pain in the left lower extremity and also it has become red and it was getting worse so she came to the ER. Her left lower extremity from knee down is erythematous and slightly swollen and there is some blackish spots above the ankle in the medial aspect. Patient was hypotensive in the ER requiring fluid bolus. Her WBC is 30. Initial lactate 2.9 repeat is 3 and repeat again is 2.6, troponin is 186. Procalcitonin 29.4. Patient alert and oriented able to give her history. She seems comfortable. Denies any headache. No runny nose or sore throat. Dry mouth. No cough. States appetite is not that great. But tries to eat. No chest pain or shortness of breath. Currently no nausea. Denies any abdominal pain. Normal bowel and bladder movements. Past medical history. As mentioned above Past surgical history. Amputation of the left toe. Bone marrow aspiration. Colonoscopy. EGD. Injection of lumbosacral spine. Removal of [place] catheter. TMJ arthroscopy. Social history. . No smoking. Alcohol rarely. No drug use. Family history. Maternal cousin had breast cancer in 30s. Maternal grandmother had breast cancer. Mother had head and neck cancer.COPD. Carotid stenosis. Stroke. Father had esophageal cancer. Heart attack. Hypertension. Sister has thyroid disorder. Admission Exam Per Admitting Provider General- not in acute distress Head- atraumatic Eyes- PERRL. ENT- oropharynx dry Neck- supple, no JVD. Lungs- clear to auscultation no wheezing or crackles Heart- regular rate and rhythm; no murmur, no gallop. Abdomen- normal bowel sounds, soft, nontender, no distension. Extremities- Left lower extremity erythematous slightly swollen below knee. black discoloration 3 x3 cm above ankle medial aspect left leg. Dry open ulcer on right leg clark region. Neuro- alert, oriented PERRL, no facial palsy; no dysarthria; moves extremities Discharge Exam Constitutional WD/WN, vitals as above Respiratory normal respiratory effort, lungs clear to auscultation Cardiovascular RRR, no murmur, no edema Skin dusky discoloration of BLE, kerlex around disal LE covering wounds, nonpitting edema noted, no lymphorrhea Updated Medication List Medication Instructions Recorded Confirmed Type acetaminophen 500 mg tablet 500 mg PO Q6H PRN Pain 08/22/23 07/28/24 History (Tylenol Extra Strength) bupropion HCl 150 mg 24 hr tablet, 150 mg PO QAM 08/22/23 07/28/24 History extended release bupropion HCl 300 mg 24 hr tablet, 300 mg PO QAM 08/22/23 07/28/24 History extended release buspirone 10 mg tablet See Rx Instructions .Route .COMPLEX 08/22/23 07/28/24 History calcium 1,000 mg (as 1 tab PO QAM 08/22/23 07/28/24 History carbonate)-vitamin D3 20 mcg (800 unit) tablet cyanocobalamin (vitamin B-12) 1,000 mcg PO QAM 08/22/23 07/28/24 History 1,000 mcg tablet (Vitamin B-12) levothyroxine 150 mcg tablet 150 mcg PO DAILYBB 08/22/23 07/28/24 History lorazepam 0.5 mg tablet 0.5 mg PO DAILY PRN Anxiety 08/22/23 07/28/24 History metoprolol succinate 25 mg 12.5 mg PO QAM 08/22/23 07/28/24 History tablet,extended release 24 hr omeprazole 20 mg capsule,delayed 20 mg PO QAM 08/22/23 07/28/24 History release ondansetron 8 mg disintegrating 8 mg PO Q8H PRN Nausea And Vomiting 08/22/23 07/28/24 History tablet potassium chloride 20 mEq 20 meq PO DAILY 08/22/23 07/28/24 History tablet,extended release prochlorperazine maleate 10 mg 10 mg PO Q8H PRN Nausea 08/22/23 07/28/24 History tablet (Compazine) ergocalciferol (vitamin D2) 1,250 300 unit PO TID 12/25/23 07/28/24 History mcg (50,000 unit) capsule fluoride (sodium) 1.1 % dental 1 applic dental HS 12/25/23 07/28/24 History paste (Sodium Fluoride 5000 Dry Mouth) apixaban 5 mg tablet (Eliquis) 5 mg PO BID 04/16/24 07/28/24 History gabapentin 300 mg capsule 600 mg (2 x 300 mg) PO TID #0 caps 06/18/24 07/28/24 Rx oxycodone-acetaminophen 7.5 mg-325 1 tab PO Q6H PRN pain 1 month #120 06/22/24 07/28/24 Rx mg tablet (Endocet) tabs linezolid 600 mg tablet 600 mg PO Q12H 11 days #22 tabs 08/05/24 Rx magnesium chloride 64 mg 64 mg PO BID 60 days #120 tabs 08/05/24 Rx (magnesium chloride) tablet,delayed release (Mag 64) midodrine 2.5 mg tablet 2.5 mg PO TID@0800,1200,1700 #0 08/05/24 Rx tabs Hospital Stay Data Consultations 07/28/24 22:38 ED Decision to Admit Stat 07/30/24 17:11 Consult Infectious Diseases Routine Diagnostic Imagining Performed 07/29/24 03:01 US doppler leg [US arterial duplex LE LT] Stat US venous doppler LE LT Urgent 07/29/24 04:18 US doppler leg [US arterial duplex LE RT] Urgent US venous doppler LE RT Urgent 07/31/24 17:39 MRI Leg [MR lower leg LT wo/w con] Urgent MRI Leg [MR lower leg RT wo/w con] Urgent Pending Results Patient Have Any Pending Studies at Discharge: No Discharge Instructions Given to Patient (Per Discharging Provider) You were admitted for sepsis and treated for cellulitis of you left leg You are to complete Linezolid 600mg two times a day for 11 more days You have multiple electrolyte abnormalities. Please have blood work in 1 week to assess electrolytes Your blood pressure is very low, please start midodrine 2.5mg three times a day. Your cortisol level was normal Total Time Total Time Spent Total Time Spent (In Minutes): 45
== END 2024-08-05 14:27 | DRG 872 ==
LOC: ED 21:08 → 4W 07-29 03:59 → SUATTDRO 07-29 03:59 → 4W 07-29 05:14

== ENCOUNTER 2024-08-11 15:06 | Inpatient (IN) ==
--- NOTE | 2024-08-11 16:02 | Emergency Department Note ---
Impression & Plan Lethargic, Non-ST elevation WI (NSTEMI), Thrombocytopenia, Elevated brain natriuretic peptide (BNP) level, Elevated lactic acid level, Acute hypoxic respiratory failure, Pulmonary vascular congestion ED Provider Note HISTORY OF PRESENT ILLNESS: Patient is a 69-year-old female presenting with hypotension and lethargy. Patient reports that her took her to wound clinic today to get her lower leg wounds evaluated. Patient reports for the last few days she has been feeling very weak and rundown. On evaluation at wound clinic, the patient was not her normal self and was found to be hypotensive and EMS was called. [facility] being admitted to the hospital. Per the patient, the wound care nurses told her "I looked awful, pale and I did not see my normal self." Patient is not normally on any supplemental oxygen. Denies any chest pain or shortness of breath. Reports feeling nauseous and had a few episodes of vomiting yesterday. Denies any diarrhea. ROS: as above PHYSICAL EXAM: Constitutional: Patient appears in no acute distress. Ill-appearing HENT: Head: Normocephalic and atraumatic. Eyes: EOMI, PERRL Mouth/Throat: Mucous membranes moist. Neck: Trachea midline. Neck supple. Cardiovascular: RRR, No murmurs, rubs or gallops. Intact distal pulses. Pulmonary/Chest: No respiratory distress. Breath sounds clear and equal bilaterally. No wheezes or rales Abdominal: Abdomen soft, no tenderness, rebound or guarding. Musculoskeletal: No edema, tenderness or deformity noted. Skin: Warm and dry. Wounds to bilateral tibial region. Also noted to have a wound to the right proximal upper leg. Psychiatric: Appropriate mood and affect for situation. Neurological: Alert and keenly responsive. CN II-XII grossly intact, moving all extremities equally and fully. MDM: - Vitals signs showed hypotension - History obtained via patient. History as above. - Chronic conditions affecting care: takutsubo cardiomyopathy; hypothyroidism; AML; depression/anxiety - Differential diagnoses include, but are not limited to: UTI; cellulitis; pneumonia; viral syndrome; bacteremia; electrolyte abnormality; dehydration - Order placed for continuous cardiac monitoring. At this time, monitor showed rate of 70 bpm with normal sinus rhythm, per my interpretation. - External medical records reviewed. Discharge summary dated 08/05/2024 was reviewed. Patient was admitted for severe sepsis secondary to cellulitis of the left lower extremity. On review of documentation, the patient had blood pressures ranging from 80s to low 100s systolic during her hospital stay. - EKG interpreted by myself showed normal sinus rhythm. Rate 66 bpm. QT 462. No acute ischemic changes. - Laboratory workup interpreted by myself showed leukocytosis (WBC 11.04); anemia (Hgb 10.0); thrombocytopenia (plt 101); normal PT/INR; stable electrolytes other than hypocalcemia (Ca 8.0); elevated lactate (2.7); elevated troponin (41.7); elevated BNP (562); normal procalcitonin - Blood cultures obtained - CXR negative for pneumonia, per my interpretation. Radiology notes moderate pulmonary vascular congestion and bilateral pleural effusions which are worse from previous. - Viral respiratory panel negative - VBG normal - Patient given 1L NS. Empirically given 2g IV rocephin for antibiotic coverage - UA ordered, but patient having difficulties giving a urine sample. Nurses have attempted the patient on the bedpan and a straight cath was ordered. - Discussion was had with major case detective about patient's case and need for admission - Hospitalist consulted for admission - Patient admitted to [facility] for further evaluation and management. ASSESSMENT AND PLAN: Diagnosis: lethargy; thrombocytopenia; elevated lactic acid; NSTEMI; elevated BNP; acute hypoxic respiratory failure; pulmonary vascular congestion Plan: admit Past Med/Surg History Problem List (Updated 08/11/24 @ 18:48 by Renée Nuñez MD) Pulmonary vascular congestion (Acute) Acute hypoxic respiratory failure (Acute) Elevated lactic acid level (Acute) Elevated brain natriuretic peptide (BNP) level (Acute) Thrombocytopenia (Acute) Non-ST elevation WI (NSTEMI) (Acute) Lethargic (Acute) Hypotension Cellulitis of left leg Skin tear of left hand without complication (Acute) Hypokalemia (Acute) Anemia (Acute) AMS (altered mental status) (Acute) Advanced care planning/counseling discussion Palliative care by specialist Persistent wound pain Chronic leg pain (Acute) Pain of right lower extremity Leg wound, right (Acute) Chronic leg pain (Acute) Lower extremity edema Venous ulcer of right leg (Acute) Cellulitis (Acute) Pseudomonas infection (Acute) Lab test positive for detection of COVID-19 virus (Acute) Anemia (Acute) Leukemia cutis (Acute) Encounter for pre-operative examination Leukemia cutis (Chronic) Encounter for pre-operative examination Weight loss Diarrhea Unresponsiveness (Acute) Pancytopenia (Acute) Hypotension (Acute) AML (acute myeloblastic leukemia) (Acute) H/O colonoscopy (Chronic) "06/04/2014 diverticulosis, repeat 5 yrs" S/P anal fissurectomy (Chronic) Takotsubo cardiomyopathy (Chronic) Transaminitis Hypothyroidism (Chronic) Hyperbilirubinemia AML (acute myelogenous leukemia) (Chronic) Medical History Lymphedema Acute alteration in mental status S/P radiation therapy before bone marrow transplant 12-11-2016 History of diabetes mellitus HX STEROID INDUCED DIABETES, NOW RESOLVED Low blood pressure Sepsis due to Pseudomonas species with acute organ dysfunction and septic shock this happened 100 days after the transplant CMV (cytomegalovirus infection) HX ? PT NOT SURE Autoimmune hepatitis Nausea and vomiting after administration of anesthetic agent Hypothyroidism AML (acute myeloblastic leukemia) diagnosed - CURRENT CHEMOTHERAPY/PORT RIGHT CHEST TMJ disease HX SURGERY, RESOLVED PROBLEM Depression Anxiety Migraine HX Takotsubo cardiomyopathy reason for metoprolol--follows with Dr. 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 History of amputation of toe left big toe History of hemorrhoidectomy History of colonoscopy History of esophagogastroduodenoscopy (EGD) History of vascular access device right APORT History of mandibular surgery TMJ sx--plate in right side of jaw History of tooth extraction History of wisdom tooth extraction History of cardiac cath 2012 in [place]---no stents Family History Sister Family history of diabetes mellitus Mother , age 84 Head and neck cancer COPD (chronic obstructive pulmonary disease) Father , age 75 Esophageal cancer Sister Vertigo Hypertension Sister Hypothyroidism Brother Combined hyperlipidemia Brother Colorectal cancer Brother Gout Brother No problems noted. 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 Feels Safe at Home: Yes Childhood Exposure to Second-Hand Smoke: Yes Assistive Devices: Walker Allergies Allergies Allergy/AdvReac Type Severity Reaction Status Date / Time amoxicillin AdvReac Intermediate NAUSEA/VOMI Verified 07/27/24 14:10 TING Penicillins AdvReac Intermediate NAUSEA/VOMITING/"FEELS Verified 07/27/24 14:10 NERVOUS" Home Meds Home Medications Medication Instructions Recorded Confirmed acetaminophen 500 mg tablet 500 mg PO Q6H PRN Pain 08/22/23 07/28/24 (Tylenol Extra Strength) bupropion HCl 150 mg 24 hr tablet, 150 mg PO QAM 08/22/23 07/28/24 extended release bupropion HCl 300 mg 24 hr tablet, 300 mg PO QAM 08/22/23 07/28/24 extended release buspirone 10 mg tablet See Rx Instructions .Route .COMPLEX 08/22/23 07/28/24 calcium 1,000 mg (as 1 tab PO QAM 08/22/23 07/28/24 carbonate)-vitamin D3 20 mcg (800 unit) tablet cyanocobalamin (vitamin B-12) 1,000 mcg PO QAM 08/22/23 07/28/24 1,000 mcg tablet (Vitamin B-12) levothyroxine 150 mcg tablet 150 mcg PO DAILYBB 08/22/23 07/28/24 lorazepam 0.5 mg tablet 0.5 mg PO DAILY PRN Anxiety 08/22/23 07/28/24 metoprolol succinate 25 mg 12.5 mg PO QAM 08/22/23 07/28/24 tablet,extended release 24 hr omeprazole 20 mg capsule,delayed 20 mg PO QAM 08/22/23 07/28/24 release ondansetron 8 mg disintegrating 8 mg PO Q8H PRN Nausea And Vomiting 08/22/23 07/28/24 tablet potassium chloride 20 mEq 20 meq PO DAILY 08/22/23 07/28/24 tablet,extended release prochlorperazine maleate 10 mg 10 mg PO Q8H PRN Nausea 08/22/23 07/28/24 tablet (Compazine) ergocalciferol (vitamin D2) 1,250 300 unit PO TID 12/25/23 07/28/24 mcg (50,000 unit) capsule fluoride (sodium) 1.1 % dental 1 applic dental HS 12/25/23 07/28/24 paste (Sodium Fluoride 5000 Dry Mouth) apixaban 5 mg tablet (Eliquis) 5 mg PO BID 04/16/24 07/28/24 Previous Rx's Medication Instructions Recorded gabapentin 300 mg capsule 600 mg (2 x 300 mg) PO TID #0 caps 06/18/24 oxycodone-acetaminophen 7.5 mg-325 1 tab PO Q6H PRN pain 1 month #120 06/22/24 mg tablet (Endocet) tabs linezolid 600 mg tablet 600 mg PO Q12H 11 days #22 tabs 08/05/24 magnesium chloride 64 mg 64 mg PO BID 60 days #120 tabs 08/05/24 (magnesium chloride) tablet,delayed release (Mag 64) midodrine 2.5 mg tablet 2.5 mg PO TID@0800,1200,1700 #0 08/05/24 tabs Results & Data (ED) Vital Signs Vital Signs - 24 hr 08/11/24 15:21 08/11/24 15:48 08/11/24 15:54 Temperature 36.5 C Temperature Source Oral Pulse Rate 69 69 68 Pulse Rate [Finger] Pulse Rate from SpO2 Sensor 68 Respiratory Rate 18 16 Blood Pressure 81/48 L Blood Pressure [Right Arm] Blood Pressure Mean 59 Blood Pressure Mean [Right Arm] Blood Pressure Position [Right Arm] Pulse Oximetry 94 99 Oxygen Delivery Method Nasal Cannula Oxygen Flow Rate 2 Sepsis Recent Fever Within 48 Hours No Sepsis New/Unexplained Change in Mental Status No Sepsis Action Taken by Nursing No Action Required 08/11/24 17:30 08/11/24 17:33 08/11/24 17:39 Temperature Temperature Source Pulse Rate 66 67 Pulse Rate [Finger] Pulse Rate from SpO2 Sensor Respiratory Rate 15 15 Blood Pressure 127/72 Blood Pressure [Right Arm] Blood Pressure Mean 77 Blood Pressure Mean [Right Arm] Blood Pressure Position [Right Arm] Pulse Oximetry Oxygen Delivery Method Oxygen Flow Rate Sepsis Recent Fever Within 48 Hours Sepsis New/Unexplained Change in Mental Status Sepsis Action Taken by Nursing 08/11/24 17:45 08/11/24 17:48 08/11/24 18:01 Temperature Temperature Source Pulse Rate 69 Pulse Rate [Finger] Pulse Rate from SpO2 Sensor Respiratory Rate 17 Blood Pressure 110/67 Blood Pressure [Right Arm] Blood Pressure Mean 72 67 Blood Pressure Mean [Right Arm] Blood Pressure Position [Right Arm] Pulse Oximetry Oxygen Delivery Method Oxygen Flow Rate Sepsis Recent Fever Within 48 Hours Sepsis New/Unexplained Change in Mental Status Sepsis Action Taken by Nursing 08/11/24 18:01 08/11/24 18:03 08/11/24 18:12 Temperature Temperature Source Pulse Rate 67 66 Pulse Rate [Finger] Pulse Rate from SpO2 Sensor Respiratory Rate 17 16 Blood Pressure Blood Pressure [Right Arm] Blood Pressure Mean 67 Blood Pressure Mean [Right Arm] Blood Pressure Position [Right Arm] Pulse Oximetry Oxygen Delivery Method Oxygen Flow Rate Sepsis Recent Fever Within 48 Hours Sepsis New/Unexplained Change in Mental Status Sepsis Action Taken by Nursing 08/11/24 18:20 08/11/24 18:24 08/11/24 18:27 Temperature Temperature Source Pulse Rate 76 69 Pulse Rate [Finger] Pulse Rate from SpO2 Sensor Respiratory Rate 18 19 Blood Pressure 103/61 Blood Pressure [Right Arm] Blood Pressure Mean 66 Blood Pressure Mean [Right Arm] Blood Pressure Position [Right Arm] Pulse Oximetry Oxygen Delivery Method Oxygen Flow Rate Sepsis Recent Fever Within 48 Hours Sepsis New/Unexplained Change in Mental Status Sepsis Action Taken by Nursing 08/11/24 18:30 08/11/24 18:36 08/11/24 18:42 Temperature Temperature Source Pulse Rate 71 67 Pulse Rate [Finger] Pulse Rate from SpO2 Sensor Respiratory Rate 18 15 Blood Pressure 107/69 Blood Pressure [Right Arm] Blood Pressure Mean 82 Blood Pressure Mean [Right Arm] Blood Pressure Position [Right Arm] Pulse Oximetry Oxygen Delivery Method Oxygen Flow Rate Sepsis Recent Fever Within 48 Hours Sepsis New/Unexplained Change in Mental Status Sepsis Action Taken by Nursing 08/11/24 18:45 08/11/24 18:45 08/11/24 18:51 Temperature Temperature Source Pulse Rate 65 67 Pulse Rate [Finger] Pulse Rate from SpO2 Sensor Respiratory Rate 20 Blood Pressure 115/68 Blood Pressure [Right Arm] Blood Pressure Mean 85 Blood Pressure Mean [Right Arm] Blood Pressure Position [Right Arm] Pulse Oximetry Oxygen Delivery Method Oxygen Flow Rate Sepsis Recent Fever Within 48 Hours Sepsis New/Unexplained Change in Mental Status Sepsis Action Taken by Nursing 08/11/24 19:01 08/11/24 19:01 08/11/24 19:10 Temperature Temperature Source Pulse Rate Pulse Rate [Finger] 70 Pulse Rate from SpO2 Sensor Respiratory Rate 18 Blood Pressure 99/57 L 99/57 L Blood Pressure [Right Arm] 99/57 L Blood Pressure Mean 75 75 Blood Pressure Mean [Right Arm] 71 Blood Pressure Position [Right Arm] Lying Pulse Oximetry Oxygen Delivery Method Oxygen Flow Rate Sepsis Recent Fever Within 48 Hours Sepsis New/Unexplained Change in Mental Status Sepsis Action Taken by Nursing Laboratory Data 08/11/24 16:00 08/11/24 16:00 Lab Results 08/11/24 08/11/24 08/11/24 Range/Units 15:32 16:00 17:43 WBC 11.04 H (4.8-10.8) K/ul RBC 2.70 L (4.20-5.40) M/uL Hgb 10.0 L (12.0-16.0) g/dl Hct 29.6 L (37.0-47.0) % MCV 109.6 H (80.0-100.0) fL MCH 37.0 H (25.0-34.0) pg MCHC 33.8 (32.0-36.0) g/dL RDW Std Deviation 53.1 H (36.4-46.3) fL RDW Coeff of Selam 13.2 (11.5-14.5) % Plt Count 101 L (130-400) K/uL MPV 10.8 (9.4-12.4) fL Immature Gran % (Auto) 0.7 % Neut % (Auto) 88.2 % Lymph % (Auto) 6.8 % Charlotte % (Auto) 2.6 % Eos % (Auto) 1.4 % Baso % (Auto) 0.3 % Neut # (Auto) 9.74 H (1.40-6.50) K/uL Lymph # (Auto) 0.75 L (1.20-3.40) K/uL Charlotte # (Auto) 0.29 (0.11-0.59) K/uL Eos # (Auto) 0.15 (0.00-0.50) K/uL Baso # (Auto) 0.03 (0.00-0.20) K/uL Immature Gran # (Auto) 0.08 (0.01-0.20) K/uL Absolute Nucleated RBC 0.02 (0.00-0.12) K/uL Nucleated RBC % (auto) 0.2 % PT 11.9 (9.0-12.0) Seconds INR 1.1 (0.9-1.1) APTT 30 (21-31) Seconds PTT Ratio 1.1 VBG pH 7.37 (7.36-7.41) VBG pCO2 49 (38-50) mmHg VBG pO2 35 mmHg VBG HCO3 28 mmol/L VBG O2 Saturation < 60.0 % VBG Base Excess 2.4 mEq/L Sodium 140 (136-145) mmol/L Potassium 3.6 (3.5-5.1) mmol/L Chloride 106 (98-107) mmol/L Carbon Dioxide 29 (21-32) mmol/L Anion Gap 5 (3-11) BUN 18 (6-23) mg/dl Creatinine 0.87 (0.6-1.2) mg/dl Est Cr Clr Drug Dosing 57.9 ml/min eGFR 72.53 BUN/Creatinine Ratio 20.7 H (10-20) Glucose 113 H (70-99(Fasting)) mg/dl Lactate 2.7 H* (0.4-2.0) mmol/L Calcium 8.0 L (8.6-10.3) mg/dl Magnesium 1.8 (1.7-2.4) mg/dl Total Bilirubin 0.5 (0.2-1.0) mg/dl AST 28 (13-39) U/L ALT 18 (7-52) U/L Alkaline Phosphatase 294 H (34-104) U/L Troponin I High Sens 41.7 H 39.9 H (0-14) pg/ml B-Natriuretic Peptide 562 H (0-100) pg/ml Total Protein 4.4 L (6.0-8.3) gm/dl Albumin 2.1 L (3.4-5.0) gm/dl Globulin 2.3 L (2.5-4.0) gm/dl Albumin/Globulin Ratio 0.9 (0.9-2) Procalcitonin 0.38 (0-0.5) ng/ml Adenovirus (PCR) Not Detected (NotDetected) B. pertussis DNA (PCR) Not Detected (NotDetected) B.parapertussis DNA PCR Not Detected (NotDetected) C. pneumoniae DNA (PCR) Not Detected (NotDetected) Coronavirus OC43 (PCR) Not Detected (NotDetected) Coronavirus HKU1 (PCR) Not Detected (NotDetected) Coronavirus 229E (PCR) Not Detected (NotDetected) SARS-CoV-2 (PCR) Not Detected (NotDetected) Coronavirus NL63 (PCR) Not Detected (NotDetected) Human Metapneumovir PCR Not Detected (NotDetected) Influenza Type A (PCR) Not Detected (NotDetected) Influenza Type B (PCR) Not Detected (NotDetected) M. pneumoniae (PCR) Not Detected (NotDetected) Parainfluenza 1 (PCR) Not Detected (NotDetected) Parainfluenza 2 (PCR) Not Detected (NotDetected) Parainfluenza 3 (PCR) Not Detected (NotDetected) Parainfluenza 4 (PCR) Not Detected (NotDetected) RSV (PCR) Not Detected (NotDetected) Entero/Rhino (PCR) Not Detected (NotDetected) 08/11/24 Range/Units 18:42 WBC (4.8-10.8) K/ul RBC (4.20-5.40) M/uL Hgb (12.0-16.0) g/dl Hct (37.0-47.0) % MCV (80.0-100.0) fL MCH (25.0-34.0) pg MCHC (32.0-36.0) g/dL RDW Std Deviation (36.4-46.3) fL RDW Coeff of Selam (11.5-14.5) % Plt Count (130-400) K/uL MPV (9.4-12.4) fL Immature Gran % (Auto) % Neut % (Auto) % Lymph % (Auto) % Charlotte % (Auto) % Eos % (Auto) % Baso % (Auto) % Neut # (Auto) (1.40-6.50) K/uL Lymph # (Auto) (1.20-3.40) K/uL [place] # (Auto) (0.11-0.59) K/uL Eos # (Auto) (0.00-0.50) K/uL Baso # (Auto) (0.00-0.20) K/uL Immature Gran # (Auto) (0.01-0.20) K/uL Absolute Nucleated RBC (0.00-0.12) K/uL Nucleated RBC % (auto) % PT (9.0-12.0) Seconds INR (0.9-1.1) APTT (21-31) Seconds PTT Ratio VBG pH (7.36-7.41) VBG pCO2 (38-50) mmHg VBG pO2 mmHg VBG HCO3 mmol/L VBG O2 Saturation % VBG Base Excess mEq/L Sodium (136-145) mmol/L Potassium (3.5-5.1) mmol/L Chloride (98-107) mmol/L Carbon Dioxide (21-32) mmol/L Anion Gap (3-11) BUN (6-23) mg/dl Creatinine (0.6-1.2) mg/dl Est Cr Clr Drug Dosing ml/min eGFR BUN/Creatinine Ratio (10-20) Glucose (70-99(Fasting)) mg/dl Lactate 2.7 H* (0.4-2.0) mmol/L Calcium (8.6-10.3) mg/dl Magnesium (1.7-2.4) mg/dl Total Bilirubin (0.2-1.0) mg/dl AST (13-39) U/L ALT (7-52) U/L Alkaline Phosphatase (34-104) U/L Troponin I High Sens (0-14) pg/ml B-Natriuretic Peptide (0-100) pg/ml Total Protein (6.0-8.3) gm/dl Albumin (3.4-5.0) gm/dl Globulin (2.5-4.0) gm/dl Albumin/Globulin Ratio (0.9-2) Procalcitonin (0-0.5) ng/ml Adenovirus (PCR) (NotDetected) B. pertussis DNA (PCR) (NotDetected) B.parapertussis DNA PCR (NotDetected) C. pneumoniae DNA (PCR) (NotDetected) Coronavirus OC43 (PCR) (NotDetected) Coronavirus HKU1 (PCR) (NotDetected) Coronavirus 229E (PCR) (NotDetected) SARS-CoV-2 (PCR) (NotDetected) Coronavirus NL63 (PCR) (NotDetected) Human Metapneumovir PCR (NotDetected) Influenza Type A (PCR) (NotDetected) Influenza Type B (PCR) (NotDetected) M. pneumoniae (PCR) (NotDetected) Parainfluenza 1 (PCR) (NotDetected) Parainfluenza 2 (PCR) (NotDetected) Parainfluenza 3 (PCR) (NotDetected) Parainfluenza 4 (PCR) (NotDetected) RSV (PCR) (NotDetected) Entero/Rhino (PCR) (NotDetected) Administered Medications Discontinued Medications Sodium Chloride (Nss) 2,000 mls @ 999 mls/hr IV .Q2H1M ONE Stop: 08/11/24 17:59 Last Infusion: 08/11/24 18:15 Dose: 0 mls/hr Documented By: Admin: 08/11/24 16:15 Dose: 999 mls/hr Documented By: WILBER Ceftriaxone Sodium (Rocephin) 2,000 mg in 50 mls @ 100 mls/hr IV NOW STA Stop: 08/11/24 17:29 Last Infusion: 08/11/24 18:14 Dose: Infused Documented By: Admin: 08/11/24 17:40 Dose: 100 mls/hr Documented By: WILBER Imaging Data Radiologist's Impression: Chest X-Ray 08/11/24 15:23 INDICATION: Cough. TECHNIQUE: Frontal radiograph of the chest. COMPARISON: 07/31/2024. FINDINGS: Cardiomegaly. Moderate pulmonary vascular congestion. Bilateral pleural effusions with atelectasis/airspace disease, slightly worsened from prior. No pneumothorax. No acute fracture. Right-sided chest port in similar position. IMPRESSION:Moderate pulmonary vascular congestion. Bilateral pleural effusions with atelectasis/airspace disease, slightly worsened from prior. Electronically signed by Garrison Hairston 08-11-2024 4:31 PM Discharge Plan Visit Data Chief Complaint: Weakness Stated Complaint: WEAKNESS ED Provider: Polinski,Renée Z. Discharge Problem: Lethargic, Non-ST elevation WI (NSTEMI), Thrombocytopenia, Elevated brain natriuretic peptide (BNP) level, Elevated lactic acid level, Acute hypoxic respiratory failure, Pulmonary vascular congestion Forms Stand Alone Forms: [facility] Prescriptions Prescriptions: No Action Eliquis 5 mg tablet 5 mg PO BID oxycodone-acetaminophen [Endocet] 7.5-325 mg tablet 1 tab PO Q6H PRN (Reason: pain) 30 Days Qty: 120 0RF cyanocobalamin (vitamin B-12) [Vitamin B-12] 1,000 mcg tablet 1,000 mcg PO QAM ondansetron 8 mg tablet,disintegrating 8 mg PO Q8H PRN (Reason: Nausea And Vomiting) levothyroxine 150 mcg tablet 150 mcg PO DAILYBB omeprazole 20 mg capsule,delayed release(DR/EC) 20 mg PO QAM metoprolol succinate 25 mg tablet extended release 24 hr 12.5 mg PO QAM potassium chloride 20 mEq Tablet Extended Release 20 meq PO DAILY Hold Instructions: Hold for now, discuss continued use with PCP calcium carbonate-vitamin D3 1,000 mg-20 mcg (800 unit) Tablet 1 tab PO QAM prochlorperazine maleate [Compazine] 10 mg Tablet 10 mg PO Q8H PRN (Reason: Nausea) acetaminophen [Tylenol Extra Strength] 500 mg Tablet 500 mg PO Q6H PRN (Reason: Pain) lorazepam 0.5 mg Tablet 0.5 mg PO DAILY PRN (Reason: Anxiety) buspirone 10 mg tablet See Rx Instructions .ROUTE .COMPLEX Rx Instructions: TAKES 20 MG QAM & QHS, THEN 10 MG Q AFTERNOON. bupropion HCl 300 mg tablet extended release 24 hr 300 mg PO QAM Rx Instructions: TOTAL DOSE 450 MG--TAKES WITH 150 MG TAB. bupropion HCl 150 mg tablet extended release 24 hr 150 mg PO QAM Rx Instructions: TOTAL DOSE 450 MG--TAKES WITH 300 MG TAB. linezolid 600 mg Tablet 600 mg PO Q12H 11 Days Qty: 22 0RF magnesium chloride [Mag 64] 64 mg Tablet,Delayed Release (Dr/Ec) 64 mg PO BID 60 Days Qty: 120 0RF midodrine 2.5 mg Tablet 2.5 mg PO TID@0800,1200,1700 Qty: 0 0RF fluoride (sodium) [Sodium Fluoride 5000 Dry Mouth] 1.1 % Paste 1 applic DENTAL HS ergocalciferol (vitamin D2) 1,250 mcg (50,000 unit) capsule 300 unit PO TID Rx Instructions: MONDAYS gabapentin 300 mg capsule 600 mg PO TID Qty: 0 0RF Referrals Referrals: Joe Peng DO [Primary Care Provider] -
[2024-08-11] MEDS: SODIUM CHLORIDE 0.9% 2,000 ML IV ONE (16:15)
[2024-08-11 16:16] LABS: Base Excess VBG 2.4 mEq/L; HCO3 VBG 28 mmol/L; Oxygen Saturation VBG < 60.0 %; PCO2 VBG 49 mmHg (38-50); PO2 VBG 35 mmHg; pH VBG 7.37 (7.36-7.41)
--- NOTE | 2024-08-11 16:31 | XRay Report ---
INDICATION: Cough. TECHNIQUE: Frontal radiograph of the chest. COMPARISON: 07/31/2024. FINDINGS: Cardiomegaly. Moderate pulmonary vascular congestion. Bilateral pleural effusions with atelectasis/airspace disease, slightly worsened from prior. No pneumothorax. No acute fracture. Right-sided chest port in similar position. IMPRESSION:Moderate pulmonary vascular congestion. Bilateral pleural effusions with atelectasis/airspace disease, slightly worsened from prior. Electronically signed by Garrison Hairston 08-11-2024 4:31 PM
[2024-08-11 16:32] LABS: Basophils # (auto) 0.03 K/uL (0.00-0.20); Basophils % (auto) 0.3 %; Eosinophils # (auto) 0.15 K/uL (0.00-0.50); Eosinophils % (auto) 1.4 %; Hematocrit (blood only) 29.6 % (37.0-47.0); Immature Granulocytes # (auto) 0.08 K/uL (0.01-0.20); Immature Granulocytes % (auto) 0.7 %; Lymphocytes # (auto) 0.75 K/uL (1.20-3.40); Lymphocytes % (auto) 6.8 %; Mean Corpuscular Hgb Conc 33.8 g/dL (32.0-36.0); Mean Corpuscular Volume 109.6 fL (80.0-100.0); Mean Platelet Volume 10.8 fL (9.4-12.4); Monocytes # (auto) 0.29 K/uL (0.11-0.59); Monocytes % (auto) 2.6 %; Neutrophils # (auto) 9.74 K/uL (1.40-6.50); Neutrophils % (auto) 88.2 %; Nucleated RBC # (auto) 0.02 K/uL (0.00-0.12); Nucleated RBC % (auto) 0.2 %; Platelet Count 101 K/uL (130-400); RDW Coefficient of Variation 13.2 % (11.5-14.5); RDW Standard Deviation 53.1 fL (36.4-46.3); White Blood Count 11.04 K/ul (4.8-10.8)
[2024-08-11 16:38] LABS: Adenovirus PCR Not Detected (NotDetected); Bordetella parapertussis PCR Not Detected (NotDetected); Bordetella pertussis PCR Not Detected (NotDetected); Chlamydia pneumoniae PCR Not Detected (NotDetected); Coronavirus 229E PCR Not Detected (NotDetected); Coronavirus CoV-2 (COVID19)PCR Not Detected (NotDetected); Coronavirus HKU1 PCR Not Detected (NotDetected); Coronavirus NL63 PCR Not Detected (NotDetected); Coronavirus OC43PCR Not Detected (NotDetected); Human Metapneumovirus PCR Not Detected (NotDetected); Influenza A PCR Not Detected (NotDetected); Influenza B PCR Not Detected (NotDetected); Mycoplasma pneumoniae PCR Not Detected (NotDetected); Parainfluenza Virus 1 PCR Not Detected (NotDetected); Parainfluenza Virus 2 PCR Not Detected (NotDetected); Parainfluenza Virus 3 PCR Not Detected (NotDetected); Parainfluenza Virus 4 PCR Not Detected (NotDetected); Respiratory Syncytial VirusPCR Not Detected (NotDetected); Rhinovirus/Enterovirus PCR Not Detected (NotDetected)
[2024-08-11 16:48] LABS: Albumin Globulin Ratio 0.9 (0.9-2); Albumin Level 2.1 gm/dl (3.4-5.0); BUN Creatinine Ratio 20.7 (10-20); Bilirubin,Total 0.5 mg/dl (0.2-1.0); Creatinine Clr Calc Pharmacy 57.9 ml/min; Globulin 2.3 gm/dl (2.5-4.0); Magnesium 1.8 mg/dl (1.7-2.4); Potassium 3.6 mmol/L (3.5-5.1); Total Protein 4.4 gm/dl (6.0-8.3)
[2024-08-11 16:54] LABS: Troponin I High Sensitivity 41.7 pg/ml (0-14)
[2024-08-11 16:57] LABS: INR 1.1 (0.9-1.1); Partial Thromboplastin Ratio 1.1; Partial Thromboplastin Time 30 Seconds (21-31); Prothrombin Time 11.9 Seconds (9.0-12.0)
[2024-08-11] MEDS: cefTRIAXone SODIUM 2,000 MG/50 ML BAG IV STA (17:40)
[2024-08-11 21:24] LABS: Appearance Urine Clear (Clear); Bacteria Urine Automated None Seen (None Seen); Bilirubin Urine Negative (Negative); Blood Urine Trace (Negative); Calcium Oxalate Crystals Urine Present (None Prsent); Cast Urine Automated 0-2 /lpf (0-2); Color Urine Dark Yellow; Epithelial Cell Urine Auto 0-2 /hpf (0-2); Glucose Urine UA Negative (Negative); Ketones Urine Negative (Negative); Leukocyte Esterase Urine Trace (Negative); Nitrite Urine Negative (Negative); Protein Urine Negative (Negative); Specific Gravity Urine 1.029 (1.000-1.030); Urobilinogen Urine Negative (Negative); WBC Urine Automated 0-5 /hpf (0-5); pH Urine 5.5 (4.5-7.5)
[2024-08-11] MEDS ORDERED: POLYETHYLENE (MIRALAX) 17 GM PACK PO PRN (23:01)
[2024-08-11] MEDS ORDERED: NITROGLYCERIN SL 0.4 MG/TAB TAB SL PRN (23:01)
[2024-08-11] MEDS ORDERED: ACETAMINOPHEN 325 MG TAB PO PRN (23:01)
[2024-08-11] MEDS ORDERED: LORazepam 0.5 MG TAB PO PRN (23:01)
[2024-08-11] MEDS: busPIRone 5 MG TAB PO SCH (23:44)
[2024-08-11] MEDS: SODIUM CHLORIDE 0.9% 1,000 ML IV SCH (23:44)
[2024-08-11] MEDS: APIXABAN 5 MG TABLET PO SCH (23:45)
[2024-08-11] MEDS: CALCIUM 600MG + VIT D 400 IU TAB PO SCH (23:46)
[2024-08-11] MEDS: MAGNESIUM CHLORIDE W/CALCIUM 64MG DELAYED REL TAB PO SCH (23:46)
[2024-08-12] MEDS: CEFEPIME 2000MG 2,000 MG/20 ML SYR IV SCH (00:08)
[2024-08-12] MEDS: LINEZOLID 600 MG/300 ML BAG IV SCH (00:08)
--- OUTSIDE RECORDS SUMMARY | 2024-08-12 03:29 | External Medical Summary ---
Author Name Unknown Address Unknown Organization [id number]:[facility] [place] [address] Laboratory Report Ordering Provider Test Date Status SOLO FUNES 08/06/2024 06:18:49 Final Observation Date Value Abnormality Reference (Units ) Status BUN 08/06/2024 06:18:49 9 6-20 (mg/dL) Final Creatinine 08/06/2024 06:18:49 0.7 0.5-1.0 (mg/dL) Final Glomerular filtration rate/1.73 sq M.predicted [Volume Rate/Area] in Serum, Plasma or Blood by Creatinine-based formula (CKD-EPI) 08/06/2024 06:18:49 >90 >=60 (mL/min) Final eGFR is calculated based on the CKD-EPI 2020 equation. Sodium 08/06/2024 06:18:49 144 135-146 (m mol/L) Final Potassium 08/06/2024 06:18:49 3.8 3.5-5.1 (m mol/L) Final Cl 08/06/2024 06:18:49 108 Above high normal 98 -107 (mmol/L) Final CO2 08/06/2024 06:18:49 26 22-32 (mmo l/L) Final Anion gap 08/06/2024 06:18:49 10 7-15 (mmol /L) Final Glucose 08/06/2024 06:18:49 68 Below low normal 70- 120 (mg/dL) Final Calcium 08/06/2024 06:18:49 7.8 Below low normal 8.4 -10.2 (mg/dL) Final Performing Location [facility] [place] [address]
--- OUTSIDE RECORDS SUMMARY | 2024-08-12 03:29 | External Medical Summary | Summary of Care ---
Author Name Unknown Organization [facility] Address [address] [place] [address] Phone [phone] Care Team Providers Care Architectural Engineering Teacher Name Role Phone Joe Peng DO Primary Care Provider [phone] Reason for Visit * Reason Onset Date Comments Referral 07/22/2024 Appointment 07/22/2024 Encounter Details Date Type Department Care Team (Late st Contact Info) Description 07/22/2024 Telephone Family Practice [facility] [place] [address] [facility] [place] [address] [facility] [address] Referral; Appointment Allergies Active Allergy Reactions Criticality Noted Date Comments Amoxicillin Nausea/vomiting 11/14/2015 Penicillins Nausea/vomiting Low 08/12/2007 tolerated cephalosporins in past Other reaction(s): Nausea Only Other reaction(s): "makes me nervous", Nausea documented as of this encounter (statuses as of 07/31/2024) Medications Calcium Carb-Cholecalcife rol 1000-800 MG-UNIT Oral [...] 07/01/20 23 Active Vitamin D3 1.25 MG (50723 UT) Oral Capsule Take 1 Capsule by [...] as of this encounter (statuses as of 07/31/2024) Active Problems Problem Noted Date Diagnosed Date [...] as of this encounter (statuses as of 07/31/2024) Resolved Problems Problem Noted Date Diagnosed Date [...] 06/08/2016 07/31/2017 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 encounter 02/12/2012 04/27/2015 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 Answer Date of Assessment Author No 06/15/2016 4:50 PM EST Trgloria, Ca tharine D, Turntable Operator * Do you have serious difficulty walking or climbing stairs? (5 years old or older) Answer Date of Assessment Author No 06/15/2016 4:50 PM EST Trgloria, Ca tharine D, Turntable Operator * Do you have difficulty dressing or bathing? (5 years old or older) Answer Date of Assessment Author No 06/15/2016 4:50 PM EST Trump, Ca tharine D, Turntable Operator * Because of a physical, mental, or emotional condition, do you have difficulty doing errands alone such as visiting a doctors office or shopping? (15 years old or older) Answer Date of Assessment Author Yes 06/15/2016 4:50 PM EST Trgloria, Ca tharine D, Turntable Operator documented as of this encounter Mental Status * Because of a physical, mental, or emotional condition, do you have serious difficulty concentrating, remembering, or making decisions? (5 years old or older) Answer Entry Date Author No 06/15/2016 4:50 PM EST Phi Ca tharine D, Turntable Operator documented in this encounter Miscellaneous Notes * Telephone Encounter - Gaye Flanagan RN - 07/31/2024 3:49 PM EST See myg message from 07/24/24. * Telephone Encounter - Rossana Davidson OSA - 07/22/2024 9:31 AM EST Has the patient been seen for this problem? (Y/N)?: NO If No, an appt needs to be scheduled before a referral will be placed (exception: proceed with referral request if referral request is for a yearly routine appointment with speciality) Patient Name: Codi Soto Patient Primary care provider: Joe Peng, DO Does this need to be an insurance referral (Y/N)?: YES If Yes, does the insurance referral need to be placed into the [employer] system? Name of preferred specialist: gastro Type of specialist: [facility] Location of specialist: [facility] Phone #: na Specialist's Fax #: na Reason for visit: Gi Issues... Loose Stools Date of visit: NA documented in this encounter Plan of Treatment Upcoming Encounters Date Type Department Care Team (Late st Contact Info) Description 08/04/2024 8:30 AM EST Office Visit Hematology/Oncology [facility] [place] [address] [facility] [place] [phone] Corbin Nielson MD [address] [place] [address] 09/09/2024 11:00 AM EST Office Visit Hematology/Oncology [facility] [place] [address] [place] [phone] Corbin Nielson MD [address] [facility] [place] [address] 09/16/2024 2:20 PM EST Office Visit Nephrology, [facility] [address] [place] [address] Fernando Aguiar MD [address] [facility] [place] [address] 10/16/2024 10:30 AM EDT Office Visit Cardiology, [facility] [address] [place] [address] Benjamin Bonilla MD [address] [place] [address] 12/23/2024 9:00 AM EDT Office Visit Gastroenterology, [facility] [address] [place] [address] Shiva Sky MD [address] [place] [address] 12/30/2024 10:00 AM EDT Office Visit Family Practice [facility] [address] [facility] [place], [place] [address] Joe Peng, DO 200 [facility] [place], [place] [address] Scheduled Procedures Name Priority Associated Diagnoses Date/Ti [...] 2024 05/08/2021, 08/29/2020, 08/08/2020 HbA1c 04/05/2024 10/04/2023, 0 03/2023, 05/28/2022, Additional history exists Albumin/Creatinine Ratio [...] 0808/2013, 03/05/2014, Additional history exists Pneumococcal Vaccine: 50+ Years Completed 07/06/2022, 05/25/2019, 12/25/2017, Additional history [...] verbally by patient or by statute hierarchy) [email or web address] Care Teams Architectural Engineering Teacher Relationship Specialty Start Date End Date Joe Peng DO [facility] [place] [address] PCP - General Family Medicine 05/19/18 documented as of this encounter
--- OUTSIDE RECORDS SUMMARY | 2024-08-12 03:29 | External Medical Summary | Summary of Care ---
Author Name Unknown Organization [facility] Address [address] [place] [address] Phone [phone] Care Team Providers Care High School Band Teacher Name Role Phone Joe Peng DO Primary Care Provider [phone] Reason for Visit * Reason Onset Date Comments No Show 08/04/2024 Encounter Details Date Type Department Care Team (Late st Contact Info) Description 08/04/2024 Telephone Hematology/Oncology [facility] [place] 200 [facility] [place] [address] Corbin Nielson MD 200 [facility] [place] [address] No Show Allergies Active Allergy Reactions Criticality Noted Date Comments Amoxicillin Nausea/vomiting 11/14/2015 Penicillins Nausea/vomiting Low 08/12/2007 tolerated cephalosporins in past Other reaction(s): Nausea Only Other reaction(s): "makes me nervous", Nausea documented as of this encounter (statuses as of 08/04/2024) Medications Calcium Carb-Cholecalcife rol 1000-800 MG-UNIT Oral [...] 07/01/20 23 Active Vitamin D3 1.25 MG (19354 UT) Oral Capsule Take 1 Capsule by [...] as of this encounter (statuses as of 08/04/2024) Active Problems Problem Noted Date Diagnosed Date [...] as of this encounter (statuses as of 08/04/2024) Resolved Problems Problem Noted Date Diagnosed Date [...] as of this encounter (statuses as of 08/04/2024) Immunizations Name Administration Dates Next Due COVID-19 [...] 4:50 PM EST Trgloria, Ca tharine D, Client Resolution Specialist * Are you blind or do you have serious difficulty seeing, even when wearing glasses? Answer Date of Assessment Author No 06/15/2016 4:50 PM EST Trump, Ca tharine D, Client Resolution Specialist * Do you have serious difficulty walking or climbing stairs? (5 years old or older) Answer Date of Assessment Author No 06/15/2016 4:50 PM EST Trump, Ca tharine D, Client Resolution Specialist * Do you have difficulty dressing or bathing? (5 years old or older) Answer Date of Assessment Author No 06/15/2016 4:50 PM EST Trump, Ca tharine D, Client Resolution Specialist * Because of a physical, mental, or emotional condition, do you have difficulty doing errands alone such as visiting a doctors office or shopping? (15 years old or older) Answer Date of Assessment Author Yes 06/15/2016 4:50 PM EST Trump, Ca tharine D, Client Resolution Specialist documented as of this encounter Mental Status * Because of a physical, mental, or emotional condition, do you have serious difficulty concentrating, remembering, or making decisions? (5 years old or older) Answer Entry Date Author No 06/15/2016 4:50 PM EST Trgloria, Ca tharine D, Client Resolution Specialist documented in this encounter Miscellaneous Notes * Telephone Encounter - Sofi Rueda CMA - 08/04/2024 11:03 AM EST Please contact patient in regards to NO SHOW Appointment with . Thank you. documented in this encounter Plan of Treatment Upcoming Encounters Date Type Department Care Team (Late st Contact Info) Description 09/09/2024 11:00 AM EST Office Visit Hematology/Oncology [facility] 200 [facility] [place] [phone] Corbin Nielson MD 200 [facility] [place] [address] 09/16/2024 2:20 PM EST Office Visit Nephrology, [facility] 200 [facility] [place] [address] Fernando Aguiar MD 200 [facility] [place] [address] 10/16/2024 10:30 AM EDT Office Visit Cardiology, [facility] 132 [facility] [place] [address] Benjamin Bonilla MD [address] [place] [address] 12/23/2024 9:00 AM EDT Office Visit Gastroenterology, [facility] [address] [facility] [place] [address] Shiva Sky MD [facility] [place] [address] 12/30/2024 10:00 AM EDT Office Visit Family Practice [facility] 200 [facility] [place] [address] Joe Peng, DO 200 [facility] [place] [address] Scheduled Procedures Name Priority Associated Diagnoses Date/Ti [...] 08/2013, 03/05/2014, Additional history exists Pneumococcal Vaccine: 50+ [...] verbally by patient or by statute hierarchy) [email or web address] Care Teams High School Band Teacher Relationship Specialty Start Date End Date Joe Peng DO [address] [place] [address] PCP - General Family Medicine 05/19/18 documented as of this encounter
--- OUTSIDE RECORDS SUMMARY | 2024-08-12 03:29 | External Medical Summary ---
Author Name Unknown Address Unknown Organization [id number] [place] [address] Laboratory Report Ordering Provider Test Date Status YADIEL RICK 08/11/2024 06:30:54 Final Observation Date Value Abnormality Reference (Units ) Status SYNC LEUKOCYTES IN BLOOD BY AUTOMATED COUNT 08/11/2024 06:30:54 7.89 4.00-10.80 (K/uL) Final Segs 08/11/2024 06:30:54 81.1 Above high normal 40.0-75.0 (%) Final Lymphs % 08/11/2024 06:30:54 12.4 Below low normal 18.0-42.0 (%) Final Monos 08/11/2024 06:30:54 3.9 1.0-11.0 (%) Final Eosinophils 08/11/2024 06:30:54 2.3 0.0-6.0 (%) Final Basos 08/11/2024 06:30:54 0.3 0.0-2.0 (%) Final Absolute Segs 08/11/2024 06:30:54 6.40 1.80-7.70 (K/uL) Final Lymphs, absolute 08/11/2024 06:30:54 0.98 Below low normal 1.00-4.80 (K/ul) Final Monos, Abs 08/11/2024 06:30:54 0.31 0.00-1.10 (K/uL) Final Eos, Abs 08/11/2024 06:30:54 0.18 0.00-0.70 (K/uL) Final Basos, Abs 08/11/2024 06:30:54 0.02 0.00-0.20 (K/uL) Final Performing Location [facility] [address] [place] [address]
--- OUTSIDE RECORDS SUMMARY | 2024-08-12 03:29 | External Medical Summary | Summary of Care ---
Author Name Unknown Organization [facility] Address [address] [place] [address] Phone [phone] Care Team Providers Care Knitter Mechanic Name Role Phone Joe Peng DO Primary Care Provider [phone] Reason for Visit * Reason Onset Date Comments No Show 08/04/2024 Encounter Details Date Type Department Care Team (Late st Contact Info) Description 08/04/2024 Telephone Hematology/Oncology [facility] [place] 200 [facility] [place] [address] Corbin Nielson MD 200 [facility] [place] [address] No Show Allergies Active Allergy Reactions Criticality [...] 07/01/20 23 Active Vitamin D3 1.25 MG (63216 UT) Oral Capsule Take 1 Capsule by [...] 06/08/2016 07/31/2017 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 encounter 02/12/2012 04/27/2015 long-term current use of ant icoagulant therapy 02/12/2012 [...] 4:50 PM EST Trump, Ca tharine D, Violin Restorer * Are you blind or do you have serious difficulty seeing, even when wearing glasses? Answer Date of Assessment Author No 06/15/2016 4:50 PM EST Trump, Ca tharine D, Violin Restorer * Do you have serious difficulty walking or climbing stairs? (5 years old or older) Answer Date of Assessment Author No 06/15/2016 4:50 PM EST Trump, Ca tharine D, Violin Restorer * Do you have difficulty dressing or bathing? (5 years old or older) Answer Date of Assessment Author No 06/15/2016 4:50 PM EST Trump, Ca tharine D, Violin Restorer * Because of a physical, mental, or emotional condition, do you have difficulty doing errands alone such as visiting a doctors office or shopping? (15 years old or older) Answer Date of Assessment Author Yes 06/15/2016 4:50 PM EST Trump, Ca tharine D, Violin Restorer documented as of this encounter Mental Status * Because of a physical, mental, or emotional condition, do you have serious difficulty concentrating, remembering, or making decisions? (5 years old or older) Answer Entry Date Author No 06/15/2016 4:50 PM EST Trump, Ca tharine D, Violin Restorer documented in this encounter Miscellaneous Notes * Telephone Encounter - Robert Moreira OSA - 08/04/2024 12:51 PM EST Spoke with . He advised patient is admitted in [facility] since 07/28. Nursing - FYI * Telephone Encounter - Sofi Rueda CMA - 08/04/2024 11:03 AM EST Please contact patient in regards to NO SHOW Appointment with . Thank you. documented in this encounter Plan of Treatment Upcoming Encounters Date Type Department Care Team (Late st Contact Info) Description 09/09/2024 11:00 AM EST Office Visit Hematology/Oncology [facility] 200 [facility] [place] [phone] Corbin Nielson MD 200 [facility] [place] [address] 09/16/2024 2:20 PM EST Office Visit Nephrology, [facility] 200 [facility] [place] [address] Fernando Aguiar MD 200 [facility] [place] [address] 10/16/2024 10:30 AM EDT Office Visit Cardiology, [facility] [address] [place] [address] Benjamin Bonilla MD [address] [place] [address] 12/23/2024 9:00 AM EDT Office Visit Gastroenterology, [facility] [address] [place] [address] Shiva Sky MD [address] [place] [address] 12/30/2024 10:00 AM EDT Office Visit Family Practice [facility] [address] [place] [address] Joe Peng, [address] [place] [address] Scheduled Procedures Name Priority Associated Diagnoses Date/Ti [...] verbally by patient or by statute hierarchy) [email or web address] Care Teams Knitter Mechanic Relationship Specialty Start Date End Date Joe Peng DO [facility] [place] [address] PCP - General Family Medicine 05/19/18 documented as of this encounter
--- OUTSIDE RECORDS SUMMARY | 2024-08-12 03:29 | External Medical Summary ---
Author Name Unknown Address Unknown Organization [facility] [place] [place] [address] Laboratory Report Ordering Provider Test Date Status YADIEL RICK 08/11/2024 06:30:54 Final Observation Date Value Abnormality Reference (Units ) Status Nucleated erythrocytes/100 leukocytes [Ratio] in Blood by Automated count 08/11/2024 06:30:54 Final Performing Location [facility] [place] [address]
--- OUTSIDE RECORDS SUMMARY | 2024-08-12 03:29 | External Medical Summary ---
Author Name Unknown Address Unknown Organization [facility] [place] [place] [address] Laboratory Report Ordering Provider Test Date Status YADIEL RICK 08/11/2024 06:30:54 Final Observation Date Value Abnormality Reference (Units ) Status Magnesium 08/11/2024 06:30:54 2.0 1.5-2.6 (m g/dL) Final Performing Location [facility] [place] [address]
--- OUTSIDE RECORDS SUMMARY | 2024-08-12 03:29 | External Medical Summary ---
Author Name Unknown Address Unknown Organization [facility] [address] [place] [address] Laboratory Report Ordering Provider Test Date Status YADIEL RICK 08/11/2024 06:30:54 Final Observation Date Value Abnormality Reference (Units ) Status BUN 08/11/2024 06:30:54 19 6-20 (mg/dL) Final Creatinine 08/11/2024 06:30:54 0.9 0.5-1.0 (mg/dL) Final Glomerular filtration rate/1.73 sq M.predicted [Volume Rate/Area] in Serum, Plasma or Blood by Creatinine-based formula (CKD-EPI) 08/11/2024 06:30:54 66 >=60 (mL/min) Final eGFR is calculated based on the CKD-EPI 2020 equation. Sodium 08/11/2024 06:30:54 140 135-146 (m mol/L) Final Potassium 08/11/2024 06:30:54 3.8 3.5-5.1 (m mol/L) Final Cl 08/11/2024 06:30:54 104 98-107 (mm ol/L) Final CO2 08/11/2024 06:30:54 26 22-32 (mmo l/L) Final Anion gap 08/11/2024 06:30:54 10 7-15 (mmol /L) Final Glucose 08/11/2024 06:30:54 70 70-120 (mg /dL) Final Albumin 08/11/2024 06:30:54 2.2 Below low normal 3.8 -5.0 (g/dL) Final AST (Aspartate aminotransferase) 08/11/2024 06:30:54 35 10-35 (U/L) Fin al Alk Phos 08/11/2024 06:30:54 347 Above high normal 35 -130 (U/L) Final Bilirubin, Total 08/11/2024 06:30:54 0.4 <=1 .2 (mg/dL) Final Calcium 08/11/2024 06:30:54 8.2 Below low normal 8.4 -10.2 (mg/dL) Final Protein 08/11/2024 06:30:54 4.2 Below low normal 6.0 -8.3 (g/dL) Final ALT (Alanine aminotransferase) 08/11/2024 06:30:54 25 10-35 (U/L) Dieudonne clemens Performing Location [facility] [address] [place] [address]
--- OUTSIDE RECORDS SUMMARY | 2024-08-12 03:29 | External Medical Summary ---
Author Name Unknown Address Unknown Organization K09:[facility] [place] [address] Laboratory Report Ordering Provider Test Date Status YADIEL RICK 08/11/2024 06:30:54 Final Observation Date Value Abnormality Reference (Units ) Status WBC, Total 08/11/2024 06:30:54 7.89 4.00-10.8 0 (K/uL) Final RBC 08/11/2024 06:30:54 2.81 3.85-5.15 (M/uL) Final Hemoglobin 08/11/2024 06:30:54 10.5 Below low normal 12 .0-15.3 (g/dL) Final HCT 08/11/2024 06:30:54 32.6 Below low normal 36. 0-45.2 (%) Final MCV 08/11/2024 06:30:54 116.0 81.5-97.5 (fL) Final MCH 08/11/2024 06:30:54 37.4 27.0-34.0 (pg) Final MCHC 08/11/2024 06:30:54 32.2 32.0-36.0 (g/dL) Final RDW 08/11/2024 06:30:54 13.3 11.5-15.5 (%) Final Platelets 08/11/2024 06:30:54 95 Below low normal 140 -400 (K/uL) Final MPV 08/11/2024 06:30:54 11.4 6.6-11.1 ( fL) Final Performing Location [facility] [place] [address]
--- OUTSIDE RECORDS SUMMARY | 2024-08-12 03:29 | External Medical Summary ---
Author Name Unknown Address Unknown Organization K09:[facility] [place] [address] Laboratory Report Ordering Provider Test Date Status SOLO FUNES 08/06/2024 06:18:49 Final Observation Date Value Abnormality Reference (Units ) Status WBC, Total 08/06/2024 06:18:49 10.37 4.00-10.8 0 (K/uL) Final RBC 08/06/2024 06:18:49 2.74 3.85-5.15 (M/uL) Final Hemoglobin 08/06/2024 06:18:49 10.3 Below low normal 12 .0-15.3 (g/dL) Final HCT 08/06/2024 06:18:49 31.3 Below low normal 36. 0-45.2 (%) Final MCV 08/06/2024 06:18:49 114.2 81.5-97.5 (fL) Final MCH 08/06/2024 06:18:49 37.6 27.0-34.0 (pg) Final MCHC 08/06/2024 06:18:49 32.9 32.0-36.0 (g/dL) Final RDW 08/06/2024 06:18:49 13.6 11.5-15.5 (%) Final Platelets 08/06/2024 06:18:49 123 Below low normal 140 -400 (K/uL) Final MPV 08/06/2024 06:18:49 11.3 6.6-11.1 ( fL) Final Performing Location [facility] [place] [address]
--- OUTSIDE RECORDS SUMMARY | 2024-08-12 03:29 | External Medical Summary ---
Author Name Unknown Address Unknown Organization K01:[facility] [address] [facility] [address] Laboratory Report Ordering Provider Test Date Status JAYNE REZA 08/11/2024 06:30:54 Final Observation Date Value Abnormality Reference (Units ) Status T4, Free 08/11/2024 06:30:54 1.2 0.9-1.7 (n g/dL) Final Performing Location [facility] - [address] [facility] [address]
--- OUTSIDE RECORDS SUMMARY | 2024-08-12 03:29 | External Medical Summary ---
Author Name Unknown Address Unknown Organization K[facility] [address] [facility] [address] Laboratory Report Ordering Provider Test Date Status LICHA REZADORCASVINEET 08/11/2024 06:30:54 Final Observation Date Value Abnormality Reference (Units ) Status TSH 08/11/2024 06:30:54 5.88 Above high normal 0. 27-4.20 (uIU/mL) Final Performing Location [facility] [address] [facility] [address]
[2024-08-12] MEDS: LEVOTHYROXINE SODIUM 150 MCG TABLET PO SCH (06:05)
[2024-08-12 06:18] LABS: Basophils # (auto) 0.01 K/uL (0.00-0.20); Basophils % (auto) 0.1 %; Eosinophils # (auto) 0.18 K/uL (0.00-0.50); Eosinophils % (auto) 2.1 %; Immature Granulocytes # (auto) 0.05 K/uL (0.01-0.20); Immature Granulocytes % (auto) 0.6 %; Lymphocytes # (auto) 0.83 K/uL (1.20-3.40); Lymphocytes % (auto) 9.9 %; Mean Corpuscular Hemoglobin 36.4 pg (25.0-34.0); Mean Corpuscular Hgb Conc 33.3 g/dL (32.0-36.0); Mean Corpuscular Volume 109.3 fL (80.0-100.0); Mean Platelet Volume 10.8 fL (9.4-12.4); Monocytes # (auto) 0.28 K/uL (0.11-0.59); Monocytes % (auto) 3.3 %; Neutrophils # (auto) 7.04 K/uL (1.40-6.50); Platelet Count 73 K/uL (130-400); RDW Coefficient of Variation 13.1 % (11.5-14.5); RDW Standard Deviation 52.7 fL (36.4-46.3); Red Blood Count 2.47 M/uL (4.20-5.40); White Blood Count 8.39 K/ul (4.8-10.8)
--- NOTE | 2024-08-12 06:28 | History & Physical Report ---
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 Patient recently in the hospital with severe sepsis secondary to cellulitis of left lower extremity and she was discharged to rehab on 08/05/2024 with p.o. Zyvox with ID recommendation. says first 2 days she was participating in PT but she was weak. After that she is mostly bedbound. Today when tried to take her to wound clinic she felt very tired almost passed in the wheelchair but later she was doing okay and she was taken to wound care where she was thought to be very sick looking, pale and hypotensive and was sent to ER. In the ER initially systolic blood pressure was in 70s and 80s but improved with the fluids. Last admission she was also discharged on midodrine. Blood pressure usually runs low. Her lactic acid was 2.7. His bilateral lower extremity wounds. Also has wound on the left arm which she says because of her dog scratched her. No fevers. Feeling weak and tired. Poor appetite. Vomited couple of times yesterday. Denies any headache or runny nose or sore throat. No cough. Has nausea. Denies any chest pain or shortness. No abdominal pain. She has constipation and also diarrhea. Micturating okay. Sepsis Lower extremity wounds Possible lower extremity cellulitis Patient was recently discharged on p.o. Zyvox received Rocephin in er. Pplaced on IV cefepime and IV Zyvox ID consult Follow the cultures gentle fluids Initial lactic is 2.7 and repeat is 2.7, came down to 1.2 Closely monitor hemodynamics ID consult Hypotension Continue midodrine Bilateral lower extremity edema Possible from medications, DVT and malnutrition and mitral prolapse Compression stocks recommended Diuretics were discontinued secondary to hypotension Abnormal EKG Will follow repeat EKG Refractory AML and leukemia cutis Currently chemotherapy on hold for lower extremity wounds and overall general condition Follow-up with heme-onc Chronic DVT and superficial thrombus On Eliquis History of mitral valve prolapse History of Takotsubo cardiomyopathy Echo done on 07/12/2024 EF 60 to 65% Depression General Anxiety disorder Will hold and BuSpar while on Zyvox Hypothyroidism On Synthyroid Chronic pain in right lower extremity On Percocet as needed at home DVT prophylaxis On Eliquis Disposition Telemetry CODE STATUS full code as per discussion with the patient History of Present Illness Chief Complaint: Sepsis and lower extremity wounds Primary Care Provider: Joe Peng DO 69-year-old female with past medical history significant for diet-controlled diabetes, hypothyroidism, history of hypokalemia and hypomagnesia, history of Takotsubo cardiomyopathy, history of mitral valve prolapse, history of autoimmune hepatitis, history of GERD, chronic diarrhea, amputation of the left great toe, history of syncope, history of AML, AML relapse , history of leukemia cutis, chemotherapy induced neutropenia, history of ITP, 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 Patient recently in the hospital with severe sepsis secondary to cellulitis of left lower extremity and she was discharged to rehab on 08/05/2024 with p.o. Zyvox with ID recommendation. says first 2 days 2 days she was participating in PT but she was weak. After that she is mostly bedbound. Today when tried to take her to wound clinic she felt very tired almost passed in the wheelchair but later she was doing okay and she was taken to wound care where she was thought to be very sick looking, pale and hypotensive and was sent to ER. In the ER initially systolic blood pressure was in 70s and 80s but improved with the fluids. Last admission she was also discharged on midodrine. Blood pressure usually runs low. Her lactic acid was 2.7. His bilateral lower extremity wounds. Also has wound on the left arm which she says because of her dog scratched her. No fevers. Feeling weak and tired. Poor appetite. Vomited couple of times yesterday. Denies any headache or runny nose or sore throat. No cough. Has nausea. Denies any chest pain or shortness. No abdominal pain. She has constipation and also diarrhea. Micturating okay. Past medical history. As mentioned above Past surgical history. Amputation of the left toe. Bone marrow aspiration. Colonoscopy. EGD. Injection of lumbosacral spine. Removal of [place] catheter. TMJ arthroscopy. Social history. . No smoking. Alcohol rarely. No drug use. Family history. Maternal cousin had breast cancer in 30s. Maternal grandmother had breast cancer. Mother had head and neck cancer.COPD. Carotid stenosis. Stroke. Father had esophageal cancer. Heart attack. Hypertension. Sister has thyroid disorder. Allergies Allergy/AdvReac Type Severity Reaction Status Date / Time amoxicillin AdvReac Intermediate NAUSEA/VOMI Verified 07/27/24 14:10 TING Penicillins AdvReac Intermediate NAUSEA/VOMITING/"FEELS Verified 07/27/24 14:10 NERVOUS" Home Medications Medication Instructions Recorded Confirmed Type acetaminophen 500 mg tablet 500 mg PO Q6H PRN Pain 08/11/24 08/11/24 History apixaban 5 mg tablet (Eliquis) 5 mg PO BID 08/11/24 08/11/24 History bupropion HCl 150 mg 24 hr tablet, 150 mg PO DAILY 08/11/24 08/11/24 History extended release bupropion HCl 300 mg 24 hr tablet, 300 mg PO DAILY 08/11/24 08/11/24 History extended release buspirone 10 mg tablet 10 mg PO BID 08/11/24 08/11/24 History calcium 500 mg (as carbonate)-vit 1 tab PO BID 08/11/24 08/11/24 History D3 10 mcg (400 unit) chewable tablet (Calcium 500 + D) cyanocobalamin (vitamin B-12) 1,000 mcg PO DAILY 08/11/24 08/11/24 History 1,000 mcg tablet levothyroxine 150 mcg tablet 150 mcg PO DAILY 08/11/24 08/11/24 History (Synthroid) linezolid 600 mg tablet (Zyvox) 600 mg PO BID 08/11/24 08/11/24 History lorazepam 0.5 mg tablet 0.5 mg PO DAILY PRN Anxiety 08/11/24 08/11/24 History magnesium chloride 64 mg 64 mg PO BID 08/11/24 08/11/24 History (magnesium chloride) tablet,delayed release metoprolol succinate 25 mg 12.5 mg PO DAILY 08/11/24 08/11/24 History tablet,extended release 24 hr midodrine 2.5 mg tablet 2.5 mg PO UD 08/11/24 08/11/24 History omeprazole 20 mg capsule,delayed 20 mg PO DAILY 08/11/24 08/11/24 History release oxycodone-acetaminophen 7.5 mg-325 1 tab PO Q6H PRN Pain 08/11/24 08/11/24 History mg tablet potassium chloride 20 mEq 20 meq PO DAILY 08/11/24 08/11/24 History tablet,extended release prochlorperazine maleate 10 mg 10 mg PO Q8H PRN Nausea 08/11/24 08/11/24 History tablet (Compazine) Past Med/Surg History Problem List (Updated 08/12/24 @ 07:48 by Garland Dooley MD) Sepsis Pulmonary vascular congestion (Acute) Acute hypoxic respiratory failure (Acute) Elevated lactic acid level (Acute) Elevated brain natriuretic peptide (BNP) level (Acute) Thrombocytopenia (Acute) Non-ST elevation PR (NSTEMI) (Acute) Lethargic (Acute) Hypotension Cellulitis of left leg Skin tear of left hand without complication (Acute) Hypokalemia (Acute) Anemia (Acute) AMS (altered mental status) (Acute) Advanced care planning/counseling discussion Palliative care by specialist Persistent wound pain Chronic leg pain (Acute) Pain of right lower extremity Leg wound, right (Acute) Chronic leg pain (Acute) Lower extremity edema Venous ulcer of right leg (Acute) Cellulitis (Acute) Pseudomonas infection (Acute) Lab test positive for detection of COVID-19 virus (Acute) Anemia (Acute) Leukemia cutis (Acute) Encounter for pre-operative examination Leukemia cutis (Chronic) Encounter for pre-operative examination Weight loss Diarrhea Unresponsiveness (Acute) Pancytopenia (Acute) Hypotension (Acute) AML (acute myeloblastic leukemia) (Acute) H/O colonoscopy (Chronic) "06/04/2014 diverticulosis, repeat 5 yrs" S/P anal fissurectomy (Chronic) Takotsubo cardiomyopathy (Chronic) Transaminitis Hypothyroidism (Chronic) Hyperbilirubinemia AML (acute myelogenous leukemia) (Chronic) Medical History Lymphedema Acute alteration in mental status S/P radiation therapy before bone marrow transplant 12-11-2016 History of diabetes mellitus HX STEROID INDUCED DIABETES, NOW RESOLVED Low blood pressure Sepsis due to Pseudomonas species with acute organ dysfunction and septic shock this happened 100 days after the transplant CMV (cytomegalovirus infection) HX ? PT NOT SURE Autoimmune hepatitis Nausea and vomiting after administration of anesthetic agent Hypothyroidism AML (acute myeloblastic leukemia) diagnosed - CURRENT CHEMOTHERAPY/PORT RIGHT CHEST TMJ disease HX SURGERY, RESOLVED PROBLEM Depression Anxiety Migraine HX Takotsubo cardiomyopathy reason for metoprolol--follows with Dr. 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 History of amputation of toe left big toe History of hemorrhoidectomy History of colonoscopy History of esophagogastroduodenoscopy (EGD) History of vascular access device right APORT History of mandibular surgery TMJ sx--plate in right side of jaw History of tooth extraction History of wisdom tooth extraction History of cardiac cath 2012 in [place]---no stents Family History Sister Family history of diabetes mellitus Mother , age 84 Head and neck cancer COPD (chronic obstructive pulmonary disease) Father , age 75 Esophageal cancer Sister Vertigo Hypertension Sister Hypothyroidism Brother Combined hyperlipidemia Brother Colorectal cancer Brother Gout Brother No problems noted. 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 Head- atraumatic Eyes- PERRL. ENT- oropharynx dry Neck- supple, no JVD. Lungs- clear to auscultation , no wheezing or crackles Heart- regular rhythm; no murmur, no gallop. Abdomen- normal bowel sounds, soft, nontender, no distension Extremities- mild lower extremity edema present.wounds seen in both lower extremities. wound also on left arm. Neuro- alert, oriented ; PERRL, no facial palsy; no dysarthria; moves extremities Results & Data Results & Data Vital Signs (Past 12 Hours) Vital Signs Temp Pulse Pulse Resp BP BP Pulse Ox 08/11/24 20:21 66 15 96/68 L 95 08/11/24 20:03 64 12 97/57 L 100 08/11/24 19:48 64 12 113/72 97 08/11/24 19:42 66 08/11/24 19:30 67 4 L 131/83 96 08/11/24 19:15 110/72 08/11/24 19:10 70 18 99/57 L 08/11/24 19:01 99/57 L 08/11/24 19:01 99/57 L 08/11/24 19:00 82 L 08/11/24 18:51 67 20 08/11/24 18:45 65 08/11/24 18:45 115/68 08/11/24 18:42 67 15 08/11/24 18:36 71 18 08/11/24 18:30 107/69 08/11/24 18:27 69 19 08/11/24 18:24 76 18 08/11/24 18:20 103/61 08/11/24 18:12 66 16 08/11/24 18:03 67 17 08/11/24 17:48 69 17 08/11/24 17:45 110/67 08/11/24 17:39 67 15 08/11/24 17:33 66 15 08/11/24 17:30 127/72 08/11/24 15:54 68 16 99 08/11/24 15:48 69 08/11/24 15:21 36.5 C 69 18 81/48 L 94 O2 Del Method O2 Flow Rate 08/11/24 20:21 2 08/11/24 20:03 08/11/24 19:48 2 08/11/24 19:42 08/11/24 19:30 2 08/11/24 19:15 08/11/24 19:10 08/11/24 19:01 08/11/24 19:01 08/11/24 19:00 Nasal Cannula 0 08/11/24 18:51 08/11/24 18:45 08/11/24 18:45 08/11/24 18:42 08/11/24 18:36 08/11/24 18:30 08/11/24 18:27 08/11/24 18:24 08/11/24 18:20 08/11/24 18:12 08/11/24 18:03 08/11/24 17:48 08/11/24 17:45 08/11/24 17:39 08/11/24 17:33 08/11/24 17:30 08/11/24 15:54 08/11/24 15:48 08/11/24 15:21 Nasal Cannula 2 Diagnostic Findings Laboratory Results WBC 8.39 K/ul (4.8-10.8) 08/12/24 05:41 RBC 2.47 M/uL (4.20-5.40) L 08/12/24 05:41 Hgb 9.0 g/dl (12.0-16.0) L 08/12/24 05:41 Hct 27.0 % (37.0-47.0) L 08/12/24 05:41 MCV 109.3 fL (80.0-100.0) H 08/12/24 05:41 MCH 36.4 pg (25.0-34.0) H 08/12/24 05:41 MCHC 33.3 g/dL (32.0-36.0) 08/12/24 05:41 RDW Std Deviation 52.7 fL (36.4-46.3) H 08/12/24 05:41 RDW Coeff of Selam 13.1 % (11.5-14.5) 08/12/24 05:41 Plt Count 73 K/uL (130-400) L 08/12/24 05:41 MPV 10.8 fL (9.4-12.4) 08/12/24 05:41 Immature Gran % (Auto) 0.6 % 08/12/24 05:41 Neut % (Auto) 84.0 % 08/12/24 05:41 Lymph % (Auto) 9.9 % 08/12/24 05:41 Parmer % (Auto) 3.3 % 08/12/24 05:41 Eos % (Auto) 2.1 % 08/12/24 05:41 Baso % (Auto) 0.1 % 08/12/24 05:41 Neut # (Auto) 7.04 K/uL (1.40-6.50) H 08/12/24 05:41 Lymph # (Auto) 0.83 K/uL (1.20-3.40) L 08/12/24 05:41 Parmer # (Auto) 0.28 K/uL (0.11-0.59) 08/12/24 05:41 Eos # (Auto) 0.18 K/uL (0.00-0.50) 08/12/24 05:41 Baso # (Auto) 0.01 K/uL (0.00-0.20) 08/12/24 05:41 Immature Gran # (Auto) 0.05 K/uL (0.01-0.20) 08/12/24 05:41 Absolute Nucleated RBC 0.02 K/uL (0.00-0.12) 08/11/24 16:00 Nucleated RBC % (auto) 0.2 % 08/11/24 16:00 PT 11.9 Seconds (9.0-12.0) 08/11/24 16:00 INR 1.1 (0.9-1.1) 08/11/24 16:00 APTT 30 Seconds (21-31) 08/11/24 16:00 PTT Ratio 1.1 08/11/24 16:00 VBG pH 7.37 (7.36-7.41) 08/11/24 16:00 VBG pCO2 49 mmHg (38-50) 08/11/24 16:00 VBG pO2 35 mmHg 08/11/24 16:00 VBG HCO3 28 mmol/L 08/11/24 16:00 VBG O2 Saturation < 60.0 % 08/11/24 16:00 VBG Base Excess 2.4 mEq/L 08/11/24 16:00 Sodium 140 mmol/L (136-145) 08/12/24 05:41 Potassium 3.4 mmol/L (3.5-5.1) L 08/12/24 05:41 Chloride 108 mmol/L (98-107) H 08/12/24 05:41 Carbon Dioxide 29 mmol/L (21-32) 08/12/24 05:41 Anion Gap 3 (3-11) 08/12/24 05:41 BUN 17 mg/dl (6-23) 08/12/24 05:41 Creatinine 0.78 mg/dl (0.6-1.2) 08/12/24 05:41 Est Cr Clr Drug Dosing 64.6 ml/min 08/12/24 05:41 eGFR 82.68 08/12/24 05:41 BUN/Creatinine Ratio 21.8 (10-20) H 08/12/24 05:41 Glucose 85 mg/dl (70-99(Fasting)) 08/12/24 05:41 Lactate 1.2 mmol/L (0.4-2.0) 08/12/24 07:08 Calcium 7.5 mg/dl (8.6-10.3) L 08/12/24 05:41 Magnesium 1.7 mg/dl (1.7-2.4) 08/12/24 05:41 Total Bilirubin 0.5 mg/dl (0.2-1.0) 08/11/24 16:00 AST 28 U/L (13-39) 08/11/24 16:00 ALT 18 U/L (7-52) 08/11/24 16:00 Alkaline Phosphatase 294 U/L (34-104) H 08/11/24 16:00 Troponin I High Sens 51.1 pg/ml (0-14) H* D 08/12/24 05:41 B-Natriuretic Peptide 562 pg/ml (0-100) H 08/11/24 16:00 Total Protein 4.4 gm/dl (6.0-8.3) L 08/11/24 16:00 Albumin 2.1 gm/dl (3.4-5.0) L 08/11/24 16:00 Globulin 2.3 gm/dl (2.5-4.0) L 08/11/24 16:00 Albumin/Globulin Ratio 0.9 (0.9-2) 08/11/24 16:00 Procalcitonin 0.38 ng/ml (0-0.5) 08/11/24 16:00 Urine Color Dark Yellow 08/11/24 Unknown Urine Appearance Clear (Clear) 08/11/24 Unknown Urine pH 5.5 (4.5-7.5) 08/11/24 Unknown Ur Specific Tyler 1.029 (1.000-1.030) 08/11/24 Unknown Urine Protein Negative (Negative) 08/11/24 Unknown Urine Glucose (UA) Negative (Negative) 08/11/24 Unknown Urine Ketones Negative (Negative) 08/11/24 Unknown Urine Blood Trace (Negative) H 08/11/24 Unknown Urine Nitrite Negative (Negative) 08/11/24 Unknown Urine Bilirubin Negative (Negative) 08/11/24 Unknown Urine Urobilinogen Negative (Negative) 08/11/24 Unknown Ur Leukocyte Esterase Trace (Negative) H 08/11/24 Unknown Urine WBC (Auto) 0-5 /hpf (0-5) 08/11/24 Unknown Urine RBC (Auto) 6-10 /hpf (0-2) H 08/11/24 Unknown U Hyaline Cast (Auto) 0-2 /lpf (0-2) 08/11/24 Unknown U Epithel Cells (Auto) 0-2 /hpf (0-2) 08/11/24 Unknown Urine Bacteria (Auto) None Seen (None Seen) 08/11/24 Unknown Calcium Oxalate Crystal Present (None Prsent) A 08/11/24 Unknown Nasal Screen MRSA (PCR) Negative (Negative) 08/12/24 00:50 Adenovirus (PCR) Not Detected (NotDetected) 08/11/24 15:32 B. pertussis DNA (PCR) Not Detected (NotDetected) 08/11/24 15:32 B.parapertussis DNA PCR Not Detected (NotDetected) 08/11/24 15:32 C. pneumoniae DNA (PCR) Not Detected (NotDetected) 08/11/24 15:32 Coronavirus OC43 (PCR) Not Detected (NotDetected) 08/11/24 15:32 Coronavirus HKU1 (PCR) Not Detected (NotDetected) 08/11/24 15:32 Coronavirus 229E (PCR) Not Detected (NotDetected) 08/11/24 15:32 SARS-CoV-2 (PCR) Not Detected (NotDetected) 08/11/24 15:32 Coronavirus NL63 (PCR) Not Detected (NotDetected) 08/11/24 15:32 Human Metapneumovir PCR Not Detected (NotDetected) 08/11/24 15:32 Influenza Type A (PCR) Not Detected (NotDetected) 08/11/24 15:32 Influenza Type B (PCR) Not Detected (NotDetected) 08/11/24 15:32 M. pneumoniae (PCR) Not Detected (NotDetected) 08/11/24 15:32 Parainfluenza 1 (PCR) Not Detected (NotDetected) 08/11/24 15:32 Parainfluenza 2 (PCR) Not Detected (NotDetected) 08/11/24 15:32 Parainfluenza 3 (PCR) Not Detected (NotDetected) 08/11/24 15:32 Parainfluenza 4 (PCR) Not Detected (NotDetected) 08/11/24 15:32 RSV (PCR) Not Detected (NotDetected) 08/11/24 15:32 Entero/Rhino (PCR) Not Detected (NotDetected) 08/11/24 15:32 Impressions Chest X-Ray 08/11/24 15:23 INDICATION: Cough. TECHNIQUE: Frontal radiograph of the chest. COMPARISON: 07/31/2024. FINDINGS: Cardiomegaly. Moderate pulmonary vascular congestion. Bilateral pleural effusions with atelectasis/airspace disease, slightly worsened from prior. No pneumothorax. No acute fracture. Right-sided chest port in similar position. IMPRESSION:Moderate pulmonary vascular congestion. Bilateral pleural effusions with atelectasis/airspace disease, slightly worsened from prior. Electronically signed by Garrison Hairston 08-11-2024 4:31 PM ECG Additional Comments: ECG. Accelerated junctional rhythm at rate 66. QTc 484 Code Status & VTE Plan VTE Prophylaxis Plan VTE Prophylaxis will be ordered: Yes
[2024-08-12 06:35] LABS: BUN Creatinine Ratio 21.8 (10-20); Calcium 7.5 mg/dl (8.6-10.3); Creatinine Clr Calc Pharmacy 64.6 ml/min; Magnesium 1.7 mg/dl (1.7-2.4); Potassium 3.4 mmol/L (3.5-5.1)
[2024-08-12 06:46] LABS: Troponin I High Sensitivity 51.1 pg/ml (0-14)
[2024-08-12] MEDS: POTASSIUM CHLORIDE CRTAB 20 MEQ TABCR PO SCH (08:53)
[2024-08-12] MEDS: oxyCODONE/APAP 7.5/325MG TAB PO PRN (08:53)
[2024-08-12] MEDS: CYANOCOBALAMIN (B-12) 500 MCG TABLET PO SCH (08:54)
[2024-08-12] MEDS: METOPROLOL SUCC 25MG EXT REL TAB PO SCH (08:54)
[2024-08-12] MEDS: MIDODRINE HCL 2.5 MG TAB PO SCH (08:55)
[2024-08-12] MEDS: buPROPion XL 300 MG TABCR PO SCH (08:55)
[2024-08-12] MEDS: PANTOprazole 40 MG TAB PO SCH (08:55)
[2024-08-12] MEDS: POTASSIUM CHLORIDE CRTAB 20 MEQ TABCR PO STA (11:20)
--- NOTE | 2024-08-12 13:18 | Hospitalist Progress Note ---
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 Possible Sepsis Chronic lower extremity wounds Possible acute gastroenteritis Pt presenting with progressive weakness, hypotension and slight leukocytosis She notes persistent frequent bowel movements and notes episodes of N/V Lactate elevated at 2.7, normalized after IV fluids Recently treated for lower extremity cellulitis but lower extremities are not concerning for infection on exam. Chronic wounds, wounds noted on arms as well Bilateral lower extremity MRIs completed during the last admission Wound cultures from lower extremities and arms pending C diff and stool cx pending Blood Cx x2 sets pending CT abd/pelvis ordered and pending Was initially on IV cefepime and Linezolid Infectious Disease was consulted, recommended /stated the following: -switch Linezolid to Vancomycin -treat with abx for 48hrs and then monitor off abx Palliative Care also consulted, appreciate further recs Continue to monitor Hypotension Chronic issue for her AM orthostatic vitals as able On gentle IV fluids On midodrine 2,5mg TID, can increase dose as needed consider an adrenal cause, no noted recent use of chronic steroids Holding home diuretics Continue to monitor Bilateral lower extremity edema Possibly from medications, DVT and malnutrition and mitral prolapse Compression stockings recommended Diuretics were discontinued secondary to hypotension Monitor Abnormal EKG Trop elevated at 51 once more before downtrending Echo from 07/29 reviewed Will follow repeat EKG Refractory AML and leukemia cutis Currently chemotherapy on hold for lower extremity wounds and overall general condition AM Peripheral smear ordered and pending Follow-up with heme-onc Chronic DVT and superficial thrombus On Eliquis History of mitral valve prolapse History of Takotsubo cardiomyopathy Echo done on 07/12/2024 EF 60 to 65% Depression General Anxiety disorder Will hold and BuSpar while on Zyvox Hypothyroidism On Synthyroid Chronic pain in right lower extremity On Percocet as needed at home Diet:regular, easy to chew DVT prophylaxis: On Eliquis Dispo: PT/OT ordered, back to [facility] once medically stable Admission and Anticipated Discharge Date Admission Date: August 11, 2024 Subjective Pt was seen with at bedside. States she is feeling better today but they both describe her progressive weakness leading to readmission. Agreeable to Palliative Care consult, they note they currently follow for pain management Case also discussed with [facility] physician Dr Richard Review of Systems Review of Systems: All systems reviewed & are unremarkable except as noted in Subjective Physical Exam Physical Exam: General: Alert, oriented. No acute distress Skin: lower extremities with chronic changes noted but without significant erythema or warmth Psych: Appropriate mood and affect Neuro: difficulty with movements in the bed HEENT: NC/AT CV: RRR Resp: no increased effort of breathing Abdomen: Soft, nontender Extremities: lower extremities with chronic changes noted but without significant erythema or warmth Results & Data Results & Data Vital Signs (Past 12 Hours) Vital Signs Temp Pulse Pulse Resp BP BP Pulse Ox 08/12/24 11:59 36.4 C L 67 19 91/58 L 94 08/12/24 09:44 08/12/24 07:25 60 08/12/24 07:12 36.3 C L 63 18 98/64 L 94 08/12/24 03:37 36.3 C L 62 16 104/68 95 O2 Del Method O2 Flow Rate 08/12/24 11:59 Room Air 08/12/24 09:44 Nasal Cannula 2 08/12/24 07:25 08/12/24 07:12 Nasal Cannula 2 08/12/24 03:37 Room Air Diagnostic Findings Chest X-Ray 08/11/24 15:23 INDICATION: Cough. TECHNIQUE: Frontal radiograph of the chest. COMPARISON: 07/31/2024. FINDINGS: Cardiomegaly. Moderate pulmonary vascular congestion. Bilateral pleural effusions with atelectasis/airspace disease, slightly worsened from prior. No pneumothorax. No acute fracture. Right-sided chest port in similar position. IMPRESSION:Moderate pulmonary vascular congestion. Bilateral pleural effusions with atelectasis/airspace disease, slightly worsened from prior. Electronically signed by Garrison Hairston 08-11-2024 4:31 PM
--- NOTE | 2024-08-12 13:25 | Infectious Disease Consult ---
Date of Service August 12, 2024 Telehealth Information I performed this visit using a real-time telehealth connection between my location and the patients location ([facility]). 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 My office door was closed and no o ne else was present in the room with me.Patient (or authorized healthcare welding equipment sales representative) provided consent to proceed with the visit, expressed an understanding of privacy and security of the telemedicine visit, and gave permission to have a hospital welding equipment sales representative in the room in order to assist with the visit and to conduct portions of the visit, as needed. I informed the patient (or authorized healthcare welding equipment sales representative) that I reviewed their record and presented the opportunity for them to ask any questions regarding the visit today. The patient agreed to participate. Assessment & Plan (1) Hypotension: Plan: This appears to be chronic and was managed on midodrine (2) Wound of lower extremity: Plan: Recommend local wound care Plan Patient who was sent from wound care clinic with hypotension and was admitted for presumed sepsis secondary to her LE wounds .Her wounds do not appear overtly infected although there is some yellow fluid draining and she has been previous ly on midodrine for hypotension .Consider switching linezolid to vancomycin renally adjusted pending finalization of her cultures .If her blood cultures remain negative for 48 hrs would recommend monitoring her off antibiotics .Thank you for allowing us to participate in the care of this patient ID will sign off History of Present Illness History of Present [place] [facility] [place] [address] History & Physical Report Signed 69 y/o F PMHx diet-controlled diabetes, hypothyroidism, hypokalemia and hypomagnesia, Takotsubo cardiomyopathy, mitral valve prolapse, autoimmune hepatitis, GERD, chronic diarrhea, amputation of the left great toe, history of syncope, AML with relapse , leukemia cutis c/b chemotherapy induced neutropenia, ITP, graft versus host disease, anasarca, depression, GERD anxiety disorder, transaminases,, currently in rehab presented because of not feeling well, hypotension and lower extremity wounds. Patient recently in the hospital with severe sepsis secondary to cellulitis of left lower extremity and she was discharged to rehab on 08/05/2024 with p.o. Zyvox as per ID recommendation. says first 2 days she was participating in PT but she was very weak and subsequently was unable to participate and was bedbound .On August 11 when tried to take her to wound clinic she almost passed out in the wheelchair.At the wound care clinic it was recommended she been seen in the ER where her systolic blood pressure was in 70s and 80s but improved with the fluids. On her last admission she was discharged on midodrine. Her lactic acid was found to be 2.7 and her bilateral lower extremity wounds were concerning for an infection and she was started on cefepime and linezolid .MRI of lower extremities did not reveal any abscess or osteomyelitis Allergies Allergy/AdvReac Type Severity Reaction Status Date / Time amoxicillin AdvReac Intermediate NAUSEA/VOMI Verified 07/27/24 14:10 TING Penicillins AdvReac Intermediate NAUSEA/VOMITING/"FEELS Verified 07/27/24 14:10 NERVOUS" Home Medications Medication Instructions Recorded Confirmed Type acetaminophen 500 mg tablet 500 mg PO Q6H PRN Pain 08/11/24 08/11/24 History apixaban 5 mg tablet (Eliquis) 5 mg PO BID 08/11/24 08/11/24 History bupropion HCl 150 mg 24 hr tablet, 150 mg PO DAILY 08/11/24 08/11/24 History extended release bupropion HCl 300 mg 24 hr tablet, 300 mg PO DAILY 08/11/24 08/11/24 History extended release buspirone 10 mg tablet 10 mg PO BID 08/11/24 08/11/24 History calcium 500 mg (as carbonate)-vit 1 tab PO BID 08/11/24 08/11/24 History D3 10 mcg (400 unit) chewable tablet (Calcium 500 + D) cyanocobalamin (vitamin B-12) 1,000 mcg PO DAILY 08/11/24 08/11/24 History 1,000 mcg tablet levothyroxine 150 mcg tablet 150 mcg PO DAILY 08/11/24 08/11/24 History (Synthroid) linezolid 600 mg tablet (Zyvox) 600 mg PO BID 08/11/24 08/11/24 History lorazepam 0.5 mg tablet 0.5 mg PO DAILY PRN Anxiety 08/11/24 08/11/24 History magnesium chloride 64 mg 64 mg PO BID 08/11/24 08/11/24 History (magnesium chloride) tablet,delayed release metoprolol succinate 25 mg 12.5 mg PO DAILY 08/11/24 08/11/24 History tablet,extended release 24 hr midodrine 2.5 mg tablet 2.5 mg PO UD 08/11/24 08/11/24 History omeprazole 20 mg capsule,delayed 20 mg PO DAILY 08/11/24 08/11/24 History release oxycodone-acetaminophen 7.5 mg-325 1 tab PO Q6H PRN Pain 08/11/24 08/11/24 History mg tablet potassium chloride 20 mEq 20 meq PO DAILY 08/11/24 08/11/24 History tablet,extended release prochlorperazine maleate 10 mg 10 mg PO Q8H PRN Nausea 08/11/24 08/11/24 History tablet (Compazine) Patient History Medical History Lymphedema Acute alteration in mental status S/P radiation therapy before bone marrow transplant 12-11-2016 History of diabetes mellitus HX STEROID INDUCED DIABETES, NOW RESOLVED Low blood pressure Sepsis due to Pseudomonas species with acute organ dysfunction and septic shock this happened 100 days after the transplant CMV (cytomegalovirus infection) HX ? PT NOT SURE Autoimmune hepatitis Nausea and vomiting after administration of anesthetic agent Hypothyroidism AML (acute myeloblastic leukemia) diagnosed - CURRENT CHEMOTHERAPY/PORT RIGHT CHEST TMJ disease HX SURGERY, RESOLVED PROBLEM Depression Anxiety Migraine HX Takotsubo cardiomyopathy reason for metoprolol--follows with Dr. 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 History of amputation of toe left big toe History of hemorrhoidectomy History of colonoscopy History of esophagogastroduodenoscopy (EGD) History of vascular access device right APORT History of mandibular surgery TMJ sx--plate in right side of jaw History of tooth extraction History of wisdom tooth extraction History of cardiac cath 2012 in [place]---no stents Family History Sister Family history of diabetes mellitus Mother , age 84 Head and neck cancer COPD (chronic obstructive pulmonary disease) Father , age 75 Esophageal cancer Sister Vertigo Hypertension Sister Hypothyroidism Brother Combined hyperlipidemia Brother Colorectal cancer Brother Gout Brother No problems noted. 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 Feels Safe at Home: Yes Safety Concerns: Feels Safe At This Time Childhood Exposure to Second-Hand Smoke: Yes Assistive Devices: Walker Review of Systems Lethargic does not respond to questions Physical Exam Patient awake lethargic no respiratory distress ,B/L lower extremity wounds with minimal yellow drainage no obvious cellulitis Results & Data Vital Signs (Past 12 Hours) Vital Signs Temp Pulse Pulse Resp BP BP Pulse Ox 08/12/24 11:59 36.4 C L 67 19 91/58 L 94 08/12/24 09:44 08/12/24 07:25 60 08/12/24 07:12 36.3 C L 63 18 98/64 L 94 08/12/24 03:37 36.3 C L 62 16 104/68 95 O2 Del Method O2 Flow Rate 08/12/24 11:59 Room Air 08/12/24 09:44 Nasal Cannula 2 08/12/24 07:25 08/12/24 07:12 Nasal Cannula 2 08/12/24 03:37 Room Air Laboratory Results WBC 8390 wound cultures NGTD Diagnostic Findings IMPRESSION: 1. Circumferential subcutaneous edema, planned edema or cellulitis. 2. Edema and mild enhancement within the upper extensor muscles of the leg. This could represent muscle injury or a mild myositis. 3. No evidence of abscess. 4. No evidence of osteomyelitis. 5. Multiple bone infarcts.
--- NOTE | 2024-08-12 14:14 | Palliative Care Consultation ---
Date of Consultation August 12, 2024 Assessment & Plan (1) Persistent wound pain: current pain regimen is providing adequate relief, she does not want changes for now (2) Chronic leg pain: (3) Pain of right lower extremity: (4) Advanced care planning/counseling discussion: A 60 min face to face ACP meeting was held at bedside with Codi and her Kavin: We spoke about her signif decline over the past few months. She feels she is on a downhill course. I shared my worries about her dwindling, declining PS, /weight loss/anorexia/malnutrition, wounds etc. She states "I feel like I'm dying, I don't know how else to describe how I am feeling. It just feels like the end is coming. 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 She tells me nothing feels right and she is overwhelmed with the emotion of feeling like time is running short. We explored this for some time and also gently visited code status. I recommended DNR/DNI and they are going to speak about this more in private. She has some resolution to do with siblings so we mapped out a plan for how to make those calls and have Kavin/ajay help with the communication. I am in clinic tomorrow but Carmen from my team will see her and I will be back Saturday to discuss code status more in depth. I gave them some home work - I told her I want her to make some decisions about what matters most if things don't get better - where does she want to be, what does she want to focus on, etc. I will keep navigating the discussions. I told them to call me for any urgent needs. I can be available tomorrow in between clinic appt for anything very urgent and can see them by telemed anytime if something acutely urgent comes up overnight or through tomorrow. Kavin asked to speak privately outside the room for another 15 min He inquired about he decline and told me he feels he is getting ready to experience life without Codi. He is tearful and asks how he can be a better support for her. We spoke about emotional support techniques and helping Codi with the family conversations she has said will be hard for her, which is better for Kavin to lead as he has a substantial amount of experience in difficult communications. Extensive support and reassurance provided. We will plan a follow up meeting Saturday. I reiterated Code status recc for DNR/DNI and advised Kavin of outcome potential with CPR for someone like Codi in this situation: CPR survival: Only about 10% of patients who have [id number] sudden cardiac arrest survive to hospital discharge, with many survivors having neurologic impairment. This rate is even lower among patients with serious coexisting conditions, ie chance of survival to hospital discharge for in-hospital CPR in older people is low to moderate (15%) and decreases with age, comorbidities, performance status and frailty: for pts > 70 yo, more than half of the patients who initially survived resuscitation in the hospital before hospital discharge. The pooled survival to discharge after in-hospital CPR was 18% for patients between 70 and 79 years old, 15% for patients between 80 and 89 years old and 11% for patients of 90 years and older. (Bertin VAUGHANY, Haseeb LJ, Salena F, et al. Trends in short- and long-term survival among [id number] cardiac arrest patients alive at hospital arrival. Circulation 2014;130:0389-8048. AND Rosalva C, Amy T, Jennifer R, et al. Performance of clinical risk scores to predict mortality and neurological outcome in cardiac arrest patients. Resuscitation 2019;136:21-29.) total ACP time = 75min over 2 separate meetings (5) Palliative care by specialist: pt and aware Palliative Medicine and explained our role in patient's care. Patient and/or family were receptive to palliative services for goals of care discussions. Reviewed we are different from hospice, a home health nurse visiting service. 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 Thank you for allowing us to participate in the ongoing care of this patient. Please page with any additional concerns. vIan Melgar DNP Director, Palliative Medicine History of Present Illness Reason for Consultation: goals of care continuity of care cancer pain mgt Attending Physician: Rita Ochoa MD History of Present Illness Codi is well known to me from prior admissions and OP clinic presented from wound clinic with gen malaise, weakness chest film suggests PNA, on linezolid IVF underway cultures and ID consult pending denies BRBPR or hematuria denies abd pain BLE wound pain improved with OP opioid regimen She has a complex medical hx with leukemia cutis, wound healing impairments and more recently, declining PS with worsening nutrition/declining albumin/weight loss/anorexia. 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 and she is very upset that while she knows what she needs to do for nutrition she just cannot tolerate it and feels she is letting everyone down Kavin is at her side He shares she has not been able to regain her stre Allergies Allergy/AdvReac Type Severity Reaction Status Date / Time amoxicillin AdvReac Intermediate NAUSEA/VOMI Verified 07/27/24 14:10 TING Penicillins AdvReac Intermediate NAUSEA/VOMITING/"FEELS Verified 07/27/24 14:10 NERVOUS" Home Medications Medication Instructions Recorded Confirmed Type acetaminophen 500 mg tablet 500 mg PO Q6H PRN Pain 08/11/24 08/11/24 History apixaban 5 mg tablet (Eliquis) 5 mg PO BID 08/11/24 08/11/24 History bupropion HCl 150 mg 24 hr tablet, 150 mg PO DAILY 08/11/24 08/11/24 History extended release bupropion HCl 300 mg 24 hr tablet, 300 mg PO DAILY 08/11/24 08/11/24 History extended release buspirone 10 mg tablet 10 mg PO BID 08/11/24 08/11/24 History calcium 500 mg (as carbonate)-vit 1 tab PO BID 08/11/24 08/11/24 History D3 10 mcg (400 unit) chewable tablet (Calcium 500 + D) cyanocobalamin (vitamin B-12) 1,000 mcg PO DAILY 08/11/24 08/11/24 History 1,000 mcg tablet levothyroxine 150 mcg tablet 150 mcg PO DAILY 08/11/24 08/11/24 History (Synthroid) linezolid 600 mg tablet (Zyvox) 600 mg PO BID 08/11/24 08/11/24 History lorazepam 0.5 mg tablet 0.5 mg PO DAILY PRN Anxiety 08/11/24 08/11/24 History magnesium chloride 64 mg 64 mg PO BID 08/11/24 08/11/24 History (magnesium chloride) tablet,delayed release metoprolol succinate 25 mg 12.5 mg PO DAILY 08/11/24 08/11/24 History tablet,extended release 24 hr midodrine 2.5 mg tablet 2.5 mg PO UD 08/11/24 08/11/24 History omeprazole 20 mg capsule,delayed 20 mg PO DAILY 08/11/24 08/11/24 History release oxycodone-acetaminophen 7.5 mg-325 1 tab PO Q6H PRN Pain 08/11/24 08/11/24 History mg tablet potassium chloride 20 mEq 20 meq PO DAILY 08/11/24 08/11/24 History tablet,extended release prochlorperazine maleate 10 mg 10 mg PO Q8H PRN Nausea 08/11/24 08/11/24 History tablet (Compazine) Patient History Medical History Lymphedema Acute alteration in mental status S/P radiation therapy before bone marrow transplant 12-11-2016 History of diabetes mellitus HX STEROID INDUCED DIABETES, NOW RESOLVED Low blood pressure Sepsis due to Pseudomonas species with acute organ dysfunction and septic shock this happened 100 days after the transplant CMV (cytomegalovirus infection) HX ? PT NOT SURE Autoimmune hepatitis Nausea and vomiting after administration of anesthetic agent Hypothyroidism AML (acute myeloblastic leukemia) diagnosed - CURRENT CHEMOTHERAPY/PORT RIGHT CHEST TMJ disease HX SURGERY, RESOLVED PROBLEM Depression Anxiety Migraine HX Takotsubo cardiomyopathy reason for metoprolol--follows with Dr. 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 History of amputation of toe left big toe History of hemorrhoidectomy History of colonoscopy History of esophagogastroduodenoscopy (EGD) History of vascular access device right APORT History of mandibular surgery TMJ sx--plate in right side of jaw History of tooth extraction History of wisdom tooth extraction History of cardiac cath 2012 in [place]---no stents Family History Sister Family history of diabetes mellitus Mother , age 84 Head and neck cancer COPD (chronic obstructive pulmonary disease) Father , age 75 Esophageal cancer Sister Vertigo Hypertension Sister Hypothyroidism Brother Combined hyperlipidemia Brother Colorectal cancer Brother Gout Brother No problems noted. 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 Feels Safe at Home: Yes Safety Concerns: Feels Safe At This Time Childhood Exposure to Second-Hand Smoke: Yes Assistive Devices: Walker Review of Systems Review of Systems: All systems reviewed & are unremarkable except as noted in Subjective Physical Exam Physical Exam: Frail, cachectic elderly female semi reclined in bed chronically ill appearing, bitemp wasting noted very pale, dry chapped lips mild blood/dark red/no clots with nose blowing mild inc resp effort and sl conversational dyspnea s1s2 abd soft, non tender Gen weakness BLE wound dressing intact skin dry, flaking at times Results & Data Vital Signs (Past 12 Hours) Vital Signs Temp Pulse Pulse Resp BP BP Pulse Ox 08/12/24 11:59 36.4 C L 67 19 91/58 L 94 08/12/24 09:44 08/12/24 07:25 60 08/12/24 07:12 36.3 C L 63 18 98/64 L 94 08/12/24 03:37 36.3 C L 62 16 104/68 95 O2 Del Method O2 Flow Rate 08/12/24 11:59 Room Air 08/12/24 09:44 Nasal Cannula 2 08/12/24 07:25 08/12/24 07:12 Nasal Cannula 2 08/12/24 03:37 Room Air Laboratory Results 08/12/24 08/12/24 08/12/24 Range/Units 16:56 11:13 07:08 WBC (4.8-10.8) K/ul RBC (4.20-5.40) M/uL Hgb (12.0-16.0) g/dl Hct (37.0-47.0) % MCV (80.0-100.0) fL MCH (25.0-34.0) pg MCHC (32.0-36.0) g/dL RDW Std Deviation (36.4-46.3) fL RDW Coeff of Selam (11.5-14.5) % Plt Count (130-400) K/uL MPV (9.4-12.4) fL Immature Gran % (Auto) % Neut % (Auto) % Lymph % (Auto) % Kinney % (Auto) % Eos % (Auto) % Baso % (Auto) % Neut # (Auto) (1.40-6.50) K/uL Lymph # (Auto) (1.20-3.40) K/uL Kinney # (Auto) (0.11-0.59) K/uL Eos # (Auto) (0.00-0.50) K/uL Baso # (Auto) (0.00-0.20) K/uL Immature Gran # (Auto) (0.01-0.20) K/uL Absolute Nucleated RBC (0.00-0.12) K/uL Nucleated RBC % (auto) % PT (9.0-12.0) Seconds INR (0.9-1.1) APTT (21-31) Seconds PTT Ratio VBG pH (7.36-7.41) VBG pCO2 (38-50) mmHg VBG pO2 mmHg VBG HCO3 mmol/L VBG O2 Saturation % VBG Base Excess mEq/L Sodium (136-145) mmol/L Potassium (3.5-5.1) mmol/L Chloride (98-107) mmol/L Carbon Dioxide (21-32) mmol/L Anion Gap (3-11) BUN (6-23) mg/dl Creatinine (0.6-1.2) mg/dl Est Cr Clr Drug Dosing ml/min eGFR BUN/Creatinine Ratio (10-20) Glucose (70-99(Fasting)) mg/dl Lactate 1.2 (0.4-2.0) mmol/L Calcium (8.6-10.3) mg/dl Magnesium (1.7-2.4) mg/dl Total Bilirubin (0.2-1.0) mg/dl AST (13-39) U/L ALT (7-52) U/L Alkaline Phosphatase (34-104) U/L Troponin I High Sens 43.1 H 44.7 H (0-14) pg/ml B-Natriuretic Peptide (0-100) pg/ml Total Protein (6.0-8.3) gm/dl Albumin (3.4-5.0) gm/dl Globulin (2.5-4.0) gm/dl Albumin/Globulin Ratio (0.9-2) Procalcitonin (0-0.5) ng/ml Urine Color Urine Appearance (Clear) Urine pH (4.5-7.5) Ur Specific [place] (1.000-1.030) Urine Protein (Negative) Urine Glucose (UA) (Negative) Urine Ketones (Negative) Urine Blood (Negative) Urine Nitrite (Negative) Urine Bilirubin (Negative) Urine Urobilinogen (Negative) Ur Leukocyte Esterase (Negative) Urine WBC (Auto) (0-5) /hpf Urine RBC (Auto) (0-2) /hpf U Hyaline Cast (Auto) (0-2) /lpf U Epithel Cells (Auto) (0-2) /hpf Urine Bacteria (Auto) (None Seen) Calcium Oxalate Crystal (None Prsent) Nasal Screen MRSA (PCR) (Negative) Adenovirus (PCR) (NotDetected) B. pertussis DNA (PCR) (NotDetected) B.parapertussis DNA PCR (NotDetected) C. pneumoniae DNA (PCR) (NotDetected) Coronavirus OC43 (PCR) (NotDetected) Coronavirus HKU1 (PCR) (NotDetected) Coronavirus 229E (PCR) (NotDetected) SARS-CoV-2 (PCR) (NotDetected) Coronavirus NL63 (PCR) (NotDetected) Human Metapneumovir PCR (NotDetected) Influenza Type A (PCR) (NotDetected) Influenza Type B (PCR) (NotDetected) M. pneumoniae (PCR) (NotDetected) Parainfluenza 1 (PCR) (NotDetected) Parainfluenza 2 (PCR) (NotDetected) Parainfluenza 3 (PCR) (NotDetected) Parainfluenza 4 (PCR) (NotDetected) RSV (PCR) (NotDetected) Entero/Rhino (PCR) (NotDetected) 08/12/24 08/12/24 08/11/24 Range/Units 05:41 00:50 Unknown WBC 8.39 (4.8-10.8) K/ul RBC 2.47 L (4.20-5.40) M/uL Hgb 9.0 L (12.0-16.0) g/dl Hct 27.0 L (37.0-47.0) % MCV 109.3 H (80.0-100.0) fL MCH 36.4 H (25.0-34.0) pg MCHC 33.3 (32.0-36.0) g/dL RDW Std Deviation 52.7 H (36.4-46.3) fL RDW Coeff of Selam 13.1 (11.5-14.5) % Plt Count 73 L (130-400) K/uL MPV 10.8 (9.4-12.4) fL Immature Gran % (Auto) 0.6 % Neut % (Auto) 84.0 % Lymph % (Auto) 9.9 % Kinney % (Auto) 3.3 % Eos % (Auto) 2.1 % Baso % (Auto) 0.1 % Neut # (Auto) 7.04 H (1.40-6.50) K/uL Lymph # (Auto) 0.83 L (1.20-3.40) K/uL Kinney # (Auto) 0.28 (0.11-0.59) K/uL Eos # (Auto) 0.18 (0.00-0.50) K/uL Baso # (Auto) 0.01 (0.00-0.20) K/uL Immature Gran # (Auto) 0.05 (0.01-0.20) K/uL Absolute Nucleated RBC (0.00-0.12) K/uL Nucleated RBC % (auto) % PT (9.0-12.0) Seconds INR (0.9-1.1) APTT (21-31) Seconds PTT Ratio VBG pH (7.36-7.41) VBG pCO2 (38-50) mmHg VBG pO2 mmHg VBG HCO3 mmol/L VBG O2 Saturation % VBG Base Excess mEq/L Sodium 140 (136-145) mmol/L Potassium 3.4 L (3.5-5.1) mmol/L Chloride 108 H (98-107) mmol/L Carbon Dioxide 29 (21-32) mmol/L Anion Gap 3 (3-11) BUN 17 (6-23) mg/dl Creatinine 0.78 (0.6-1.2) mg/dl Est Cr Clr Drug Dosing 64.6 ml/min eGFR 82.68 BUN/Creatinine Ratio 21.8 H (10-20) Glucose 85 (70-99(Fasting)) mg/dl Lactate (0.4-2.0) mmol/L Calcium 7.5 L (8.6-10.3) mg/dl Magnesium 1.7 (1.7-2.4) mg/dl Total Bilirubin (0.2-1.0) mg/dl AST (13-39) U/L ALT (7-52) U/L Alkaline Phosphatase (34-104) U/L Troponin I High Sens 51.1 H* D (0-14) pg/ml B-Natriuretic Peptide (0-100) pg/ml Total Protein (6.0-8.3) gm/dl Albumin (3.4-5.0) gm/dl Globulin (2.5-4.0) gm/dl Albumin/Globulin Ratio (0.9-2) Procalcitonin (0-0.5) ng/ml Urine Color Dark Yellow Urine Appearance Clear (Clear) Urine pH 5.5 (4.5-7.5) Ur Specific [place] 1.029 (1.000-1.030) Urine Protein Negative (Negative) Urine Glucose (UA) Negative (Negative) Urine Ketones Negative (Negative) Urine Blood Trace H (Negative) Urine Nitrite Negative (Negative) Urine Bilirubin Negative (Negative) Urine Urobilinogen Negative (Negative) Ur Leukocyte Esterase Trace H (Negative) Urine WBC (Auto) 0-5 (0-5) /hpf Urine RBC (Auto) 6-10 H (0-2) /hpf U Hyaline Cast (Auto) 0-2 (0-2) /lpf U Epithel Cells (Auto) 0-2 (0-2) /hpf Urine Bacteria (Auto) None Seen (None Seen) Calcium Oxalate Crystal Present A (None Prsent) Nasal Screen MRSA (PCR) Negative (Negative) Adenovirus (PCR) (NotDetected) B. pertussis DNA (PCR) (NotDetected) B.parapertussis DNA PCR (NotDetected) C. pneumoniae DNA (PCR) (NotDetected) Coronavirus OC43 (PCR) (NotDetected) Coronavirus HKU1 (PCR) (NotDetected) Coronavirus 229E (PCR) (NotDetected) SARS-CoV-2 (PCR) (NotDetected) Coronavirus NL63 (PCR) (NotDetected) Human Metapneumovir PCR (NotDetected) Influenza Type A (PCR) (NotDetected) Influenza Type B (PCR) (NotDetected) M. pneumoniae (PCR) (NotDetected) Parainfluenza 1 (PCR) (NotDetected) Parainfluenza 2 (PCR) (NotDetected) Parainfluenza 3 (PCR) (NotDetected) Parainfluenza 4 (PCR) (NotDetected) RSV (PCR) (NotDetected) Entero/Rhino (PCR) (NotDetected) 08/11/24 08/11/24 08/11/24 Range/Units 18:42 17:43 16:00 WBC 11.04 H (4.8-10.8) K/ul RBC 2.70 L (4.20-5.40) M/uL Hgb 10.0 L (12.0-16.0) g/dl Hct 29.6 L (37.0-47.0) % MCV 109.6 H (80.0-100.0) fL MCH 37.0 H (25.0-34.0) pg MCHC 33.8 (32.0-36.0) g/dL RDW Std Deviation 53.1 H (36.4-46.3) fL RDW Coeff of Eslam 13.2 (11.5-14.5) % Plt Count 101 L (130-400) K/uL MPV 10.8 (9.4-12.4) fL Immature Gran % (Auto) 0.7 % Neut % (Auto) 88.2 % Lymph % (Auto) 6.8 % Kinney % (Auto) 2.6 % Eos % (Auto) 1.4 % Baso % (Auto) 0.3 % Neut # (Auto) 9.74 H (1.40-6.50) K/uL Lymph # (Auto) 0.75 L (1.20-3.40) K/uL Kinney # (Auto) 0.29 (0.11-0.59) K/uL Eos # (Auto) 0.15 (0.00-0.50) K/uL Baso # (Auto) 0.03 (0.00-0.20) K/uL Immature Gran # (Auto) 0.08 (0.01-0.20) K/uL Absolute Nucleated RBC 0.02 (0.00-0.12) K/uL Nucleated RBC % (auto) 0.2 % PT 11.9 (9.0-12.0) Seconds INR 1.1 (0.9-1.1) APTT 30 (21-31) Seconds PTT Ratio 1.1 VBG pH 7.37 (7.36-7.41) VBG pCO2 49 (38-50) mmHg VBG pO2 35 mmHg VBG HCO3 28 mmol/L VBG O2 Saturation < 60.0 % VBG Base Excess 2.4 mEq/L Sodium 140 (136-145) mmol/L Potassium 3.6 (3.5-5.1) mmol/L Chloride 106 (98-107) mmol/L Carbon Dioxide 29 (21-32) mmol/L Anion Gap 5 (3-11) BUN 18 (6-23) mg/dl Creatinine 0.87 (0.6-1.2) mg/dl Est Cr Clr Drug Dosing 57.9 ml/min eGFR 72.53 BUN/Creatinine Ratio 20.7 H (10-20) Glucose 113 H (70-99(Fasting)) mg/dl Lactate 2.7 H* 2.7 H* (0.4-2.0) mmol/L Calcium 8.0 L (8.6-10.3) mg/dl Magnesium 1.8 (1.7-2.4) mg/dl Total Bilirubin 0.5 (0.2-1.0) mg/dl AST 28 (13-39) U/L ALT 18 (7-52) U/L Alkaline Phosphatase 294 H (34-104) U/L Troponin I High Sens 39.9 H 41.7 H (0-14) pg/ml B-Natriuretic Peptide 562 H (0-100) pg/ml Total Protein 4.4 L (6.0-8.3) gm/dl Albumin 2.1 L (3.4-5.0) gm/dl Globulin 2.3 L (2.5-4.0) gm/dl Albumin/Globulin Ratio 0.9 (0.9-2) Procalcitonin 0.38 (0-0.5) ng/ml Urine Color Urine Appearance (Clear) Urine pH (4.5-7.5) Ur Specific [place] (1.000-1.030) Urine Protein (Negative) Urine Glucose (UA) (Negative) Urine Ketones (Negative) Urine Blood (Negative) Urine Nitrite (Negative) Urine Bilirubin (Negative) Urine Urobilinogen (Negative) Ur Leukocyte Esterase (Negative) Urine WBC (Auto) (0-5) /hpf Urine RBC (Auto) (0-2) /hpf U Hyaline Cast (Auto) (0-2) /lpf U Epithel Cells (Auto) (0-2) /hpf Urine Bacteria (Auto) (None Seen) Calcium Oxalate Crystal (None Prsent) Nasal Screen MRSA (PCR) (Negative) Adenovirus (PCR) (NotDetected) B. pertussis DNA (PCR) (NotDetected) B.parapertussis DNA PCR (NotDetected) C. pneumoniae DNA (PCR) (NotDetected) Coronavirus OC43 (PCR) (NotDetected) Coronavirus HKU1 (PCR) (NotDetected) Coronavirus 229E (PCR) (NotDetected) SARS-CoV-2 (PCR) (NotDetected) Coronavirus NL63 (PCR) (NotDetected) Human Metapneumovir PCR (NotDetected) Influenza Type A (PCR) (NotDetected) Influenza Type B (PCR) (NotDetected) M. pneumoniae (PCR) (NotDetected) Parainfluenza 1 (PCR) (NotDetected) Parainfluenza 2 (PCR) (NotDetected) Parainfluenza 3 (PCR) (NotDetected) Parainfluenza 4 (PCR) (NotDetected) RSV (PCR) (NotDetected) Entero/Rhino (PCR) (NotDetected) 08/11/24 Range/Units 15:32 WBC (4.8-10.8) K/ul RBC (4.20-5.40) M/uL Hgb (12.0-16.0) g/dl Hct (37.0-47.0) % MCV (80.0-100.0) fL MCH (25.0-34.0) pg MCHC (32.0-36.0) g/dL RDW Std Deviation (36.4-46.3) fL RDW Coeff of Selam (11.5-14.5) % Plt Count (130-400) K/uL MPV (9.4-12.4) fL Immature Gran % (Auto) % Neut % (Auto) % Lymph % (Auto) % Kinney % (Auto) % Eos % (Auto) % Baso % (Auto) % Neut # (Auto) (1.40-6.50) K/uL Lymph # (Auto) (1.20-3.40) K/uL Kinney # (Auto) (0.11-0.59) K/uL Eos # (Auto) (0.00-0.50) K/uL Baso # (Auto) (0.00-0.20) K/uL Immature Gran # (Auto) (0.01-0.20) K/uL Absolute Nucleated RBC (0.00-0.12) K/uL Nucleated RBC % (auto) % PT (9.0-12.0) Seconds INR (0.9-1.1) APTT (21-31) Seconds PTT Ratio VBG pH (7.36-7.41) VBG pCO2 (38-50) mmHg VBG pO2 mmHg VBG HCO3 mmol/L VBG O2 Saturation % VBG Base Excess mEq/L Sodium (136-145) mmol/L Potassium (3.5-5.1) mmol/L Chloride (98-107) mmol/L Carbon Dioxide (21-32) mmol/L Anion Gap (3-11) BUN (6-23) mg/dl Creatinine (0.6-1.2) mg/dl Est Cr Clr Drug Dosing ml/min eGFR BUN/Creatinine Ratio (10-20) Glucose (70-99(Fasting)) mg/dl Lactate (0.4-2.0) mmol/L Calcium (8.6-10.3) mg/dl Magnesium (1.7-2.4) mg/dl Total Bilirubin (0.2-1.0) mg/dl AST (13-39) U/L ALT (7-52) U/L Alkaline Phosphatase (34-104) U/L Troponin I High Sens (0-14) pg/ml B-Natriuretic Peptide (0-100) pg/ml Total Protein (6.0-8.3) gm/dl Albumin (3.4-5.0) gm/dl Globulin (2.5-4.0) gm/dl Albumin/Globulin Ratio (0.9-2) Procalcitonin (0-0.5) ng/ml Urine Color Urine Appearance (Clear) Urine pH (4.5-7.5) Ur Specific [place] (1.000-1.030) Urine Protein (Negative) Urine Glucose (UA) (Negative) Urine Ketones (Negative) Urine Blood (Negative) Urine Nitrite (Negative) Urine Bilirubin (Negative) Urine Urobilinogen (Negative) Ur Leukocyte Esterase (Negative) Urine WBC (Auto) (0-5) /hpf Urine RBC (Auto) (0-2) /hpf U Hyaline Cast (Auto) (0-2) /lpf U Epithel Cells (Auto) (0-2) /hpf Urine Bacteria (Auto) (None Seen) Calcium Oxalate Crystal (None Prsent) Nasal Screen MRSA (PCR) (Negative) Adenovirus (PCR) Not Detected (NotDetected) B. pertussis DNA (PCR) Not Detected (NotDetected) B.parapertussis DNA PCR Not Detected (NotDetected) C. pneumoniae DNA (PCR) Not Detected (NotDetected) Coronavirus OC43 (PCR) Not Detected (NotDetected) Coronavirus HKU1 (PCR) Not Detected (NotDetected) Coronavirus 229E (PCR) Not Detected (NotDetected) SARS-CoV-2 (PCR) Not Detected (NotDetected) Coronavirus NL63 (PCR) Not Detected (NotDetected) Human Metapneumovir PCR Not Detected (NotDetected) Influenza Type A (PCR) Not Detected (NotDetected) Influenza Type B (PCR) Not Detected (NotDetected) M. pneumoniae (PCR) Not Detected (NotDetected) Parainfluenza 1 (PCR) Not Detected (NotDetected) Parainfluenza 2 (PCR) Not Detected (NotDetected) Parainfluenza 3 (PCR) Not Detected (NotDetected) Parainfluenza 4 (PCR) Not Detected (NotDetected) RSV (PCR) Not Detected (NotDetected) Entero/Rhino (PCR) Not Detected (NotDetected) Diagnostic Findings Chest X-Ray 08/11/24 15:23 INDICATION: Cough. TECHNIQUE: Frontal radiograph of the chest. COMPARISON: 07/31/2024. FINDINGS: Cardiomegaly. Moderate pulmonary vascular congestion. Bilateral pleural effusions with atelectasis/airspace disease, slightly worsened from prior. No pneumothorax. No acute fracture. Right-sided chest port in similar position. IMPRESSION:Moderate pulmonary vascular congestion. Bilateral pleural effusions with atelectasis/airspace disease, slightly worsened from prior. Electronically signed by Garrison Hairston 08-11-2024 4:31 PM PG Care Time/CCT Total # of Minutes Spent Total Time Spent with Patient: Total time spent is greater than 50% in coordination of care (as documented) at patient's floor/unit and/or counseling patient: I spent 135 minutes overall addressing this case: 15 min in medical data review/discussion with referring provider(s) and/or preparation for the visit 15 min in direct interaction with the patient/exam 75 min in Advance Care Planning/Goals of Care discussions as detailed above in note (must be >16min) 15 min in subsequent review and synthesis of assessment and plan 15 min communicating with other providers regarding the patient's case: primary team and OSH oncology Advanced Care Planning 03011 Advanced Care Planning 30 Min 79701 Advanced Care Planning Additional 30 [place] [address] IN/OBS CONSULT LVL 4,60M (25 - SIGNIFICANT, SEPARATELY IDENTIFIABLE ) Patient Type New Medical Decision Making High Complexity Diagnoses Persistent wound pain R52 Chronic leg pain M79.606; G89.29 Pain of right lower extremity M79.604 Advanced care planning/counseling discussion Z71.89 Palliative care by specialist Z51.5 Weight loss R63.4 AML (acute myelogenous leukemia) C92.00 Additional Codes Advanced Care Planning - 70912 Advanced Care Planning 30 Min: 76304 Advanced Care Planning 30 Min ([id number]) Advanced Care Planning - 56423 Advanced Care Planning Additional 30 Min: 72953 Advanced Care Planning Additional 30 Min ([id number]) Time Spent (min) 135
[2024-08-12] MEDS ORDERED: VANCOMYCIN CONSULT ACTIVE PRN (21:01)
[2024-08-12] MEDS ORDERED: VANCOMYCIN HCL 1,000 MG in SODIUM CHLORIDE 0.9% 250 ML IV SCH (21:15)
[2024-08-12] MEDS: VANCOMYCIN HCL 1,500 MG in SODIUM CHLORIDE 0.9% 500 ML IV ONE (21:55)
[2024-08-12 23:11] LABS: Adenovirus F 40/41 PCR Not Detected (NotDetected); Astrovirus PCR Not Detected (NotDetected); Campylobacter PCR Not Detected (NotDetected); Cryptosporidium PCR Not Detected (NotDetected); Cyclospora cayetanensis PCR Not Detected (NotDetected); Entamoeba histolytica PCR Not Detected (NotDetected); Enteroaggregative E.coli(EAEC) Not Detected (NotDetected); Enteropathogenic E.coli (EPEC) Not Detected (NotDetected); Enterotoxigenic E.coli (ETEC) Not Detected (NotDetected); Giardia lamblia PCR Not Detected (NotDetected); Norovirus GI/GII PCR Not Detected (NotDetected); Plesiomonas shigelloides PCR Not Detected (NotDetected); Rotavirus A PCR Not Detected (NotDetected); Salmonella PCR Not Detected (NotDetected); Sapovirus PCR Not Detected (NotDetected); Shiga-like Toxin E.coli (STEC) Not Detected (NotDetected); Shigella/Enteroinvasive E.coli Not Detected (NotDetected); Vibrio cholerae PCR Not Detected (NotDetected); Vibrio species PCR Not Detected (NotDetected); Yersinia enterocolitica PCR Not Detected (NotDetected)
--- NOTE | 2024-08-13 06:30 | Electrocardiogram Report ---
Test Reason : Blood Pressure : */* mmHG Vent. Rate : 66 BPM Atrial Rate : * BPM P-R Int : * ms QRS Dur : 84 ms QT Int : 462 ms P-R-T Axes : * 4 128 degrees QTcB Int : 484 ms Sinus rhythm Low voltage QRS Cannot rule out Anterior infarct , age undetermined Abnormal ECG When compared with ECG of 31-Jul-2024 18:40, No significant change Confirmed by Ed Harrell ([id number]) on 08/13/2024 6:29:34 AM Referred By: REFERRED SELF Confirmed By: Ed Harrell
--- NOTE | 2024-08-13 07:22 | Electrocardiogram Report ---
Test Reason : Blood Pressure : */* mmHG Vent. Rate : 71 BPM Atrial Rate : 69 BPM P-R Int : * ms QRS Dur : 80 ms QT Int : 420 ms P-R-T Axes : * -14 * degrees QTcB Int : 457 ms Sinus rhythm Premature atrial complexes Low voltage QRS Nonspecific T wave abnormality Abnormal ECG When compared with ECG of 11-Aug-2024 16:27, (unconfirmed) Nonspecific T wave abnormality has replaced t wave inversion in precordial leads Confirmed by Ed Harrell ([id number]) on 08/13/2024 7:22:02 AM Referred By: REFERRED SELF Confirmed By: Ed Harrell
[2024-08-13] MEDS: OPTIRAY 320 100ml IV ONE (08:11)
[2024-08-13 08:15] LABS: Basophils # (auto) 0.02 K/uL (0.00-0.20); Basophils % (auto) 0.2 %; Eosinophils # (auto) 0.28 K/uL (0.00-0.50); Eosinophils % (auto) 3.4 %; Hematocrit (blood only) 26.4 % (37.0-47.0); Hemoglobin 8.9 g/dl (12.0-16.0); Immature Granulocytes # (auto) 0.03 K/uL (0.01-0.20); Immature Granulocytes % (auto) 0.4 %; Lymphocytes # (auto) 0.86 K/uL (1.20-3.40); Lymphocytes % (auto) 10.5 %; Mean Corpuscular Hemoglobin 36.9 pg (25.0-34.0); Mean Corpuscular Hgb Conc 33.7 g/dL (32.0-36.0); Mean Corpuscular Volume 109.5 fL (80.0-100.0); Mean Platelet Volume 11.4 fL (9.4-12.4); Monocytes # (auto) 0.37 K/uL (0.11-0.59); Monocytes % (auto) 4.5 %; Neutrophils # (auto) 6.62 K/uL (1.40-6.50); Platelet Count 60 K/uL (130-400); RDW Coefficient of Variation 12.8 % (11.5-14.5); RDW Standard Deviation 51.1 fL (36.4-46.3); Red Blood Count 2.41 M/uL (4.20-5.40); White Blood Count 8.18 K/ul (4.8-10.8)
[2024-08-13] MEDS: buPROPion XL 150 MG TABCR PO SCH (08:32)
--- NOTE | 2024-08-13 08:42 | CT Scan Report ---
CT OF THE ABDOMEN AND PELVIS WITH CONTRAST CLINICAL HISTORY: Persistent diarrhea, nausea and vomiting. COMPARISON STUDY: Right upper quadrant ultrasound March 31, 2017. CTA of the abdomen and pelvis Aug ust 2016. TECHNIQUE: Following IV administration of 94 mL of Optiray, axial images of the abdomen and pelvis we re obtained from the lung bases to the proximal femurs. Images were reviewed in the axial, sagittal, and coronal planes. IV contrast was administered without complication. Automated exposure control wa s utilized for the study. A dose lowering technique was utilized adhering to the principles of ALARA . CT DOSE: 1168.12 mGy.cm FINDINGS: There are mild groundglass opacities within the right lung. Moderate to large bilateral ple ural effusions are partially imaged. There is extensive body wall edema. No pneumatosis, free air or portal venous gas is present. There are no hepatic lesions. Liver surface is lobulated. There is no b iliary or pancreatic ductal dilatation. A small amount of abdominal and pelvic ascites is present. Sp anitha, adrenal glands, kidneys and pancreas are unremarkable. There is no hydronephrosis. There is ludy arent fold thickening within the stomach. Prominent mucosal enhancement of the stomach is also noted. Findings suggest adenomyomatosis of the gallbladder fundus. There is no evidence for a bowel obstruc tion. There is a moderate amount of stool within the distal colon and rectum. Perirectal stranding is present. There is wall thickening of the colon and rectum. This is most pronounced within the ascend ing colon and distal rectum. No associated fluid collection is present. Calcified fibroids are incide ntally noted. There is no abdominal or pelvic lymphadenopathy. Note is made of a comminuted moderatel y displaced fracture of the greater trochanter of the right femur. This was not evident on previous r adiograph June 15, 2024. Sclerosis within the intertrochanteric portion of the right femur is pre sent. Severe bilateral hip osteoarthritis is present. IMPRESSION: 1. Diffuse colorectal wall thickening. This represents a nonspecific proctocolitis. Moderate amount o f stool within the distal colon and rectum. 2. No evidence for a bowel obstruction. 3. Evidence for volume overload with moderate to large bilateral pleural effusions, extensive body wa ll edema and a small amount of abdominal and pelvic ascites. 4. Moderately displaced, comminuted fracture of the greater trochanter of the right femur. This fract ure is likely subacute. Sclerosis within the intertrochanteric portion of the femur raises the possib ility of intertrochanteric extension. 5. Gastric fold thickening with mucosal enhancement. The findings are nonspecific and could be due to underdistention however may represent gastritis. ACT 112: Negative or not required by law. Electronically signed by: Armando Horvath M.D. 08/13/2024 8:39 AM
[2024-08-13 08:44] LABS: BUN Creatinine Ratio 19.4 (10-20); Calcium 7.7 mg/dl (8.6-10.3); Magnesium 1.6 mg/dl (1.7-2.4); Phosphorus 2.5 mg/dl (2.5-4.9); Potassium 3.7 mmol/L (3.5-5.1)
[2024-08-13] MEDS: VANCOMYCIN 750 MG in SODIUM CHLORIDE 0.9% 250 ML IV SCH (08:44)
[2024-08-13] MEDS: MAGNESIUM SULFATE / D5W 1 GM/100 ML BAG IV SCH (09:08)
--- NOTE | 2024-08-13 10:04 | Pharmacy Report ---
Pharmacy PK ABX Note - Date of Service August 13, 2024 - Assessment and Plan Assessment 69 year old F receiving empiric vancomycin and cefepime for treatment of possible cellulitis (wounds on arms/legs) w/ recent hospitalization for sepsis secondary to LLE cellulitis. Recent antibiotics include linezolid, daptomycin, and meropenem. Pertinent microbiologic data includes: blood cultures x 2 (no growth at 24 hours), left arm cultures pending, right leg culture pending. ID consulted and recommending to monitor patient off antibiotics if blood cultures negative at 48 hours. Day # 2 of antimicrobial therapy. Plan Vancomycin * Loading dose: 1500 mg IV x 1 * Maintenance dose: 750 mg IV every 12 hours * Regimen is predicted to achieve target AUC/VALERIO of 400-600 mg/L.hr * Random level ordered for: 08/14/24 Cefepime * 2 g IV q12h - appropriately dosed for indication/renal function Pharmacy will continue to follow and will adjust dose/frequency as necessary. Thank you. Pharmacy has transitioned to AUC monitoring for vancomycin. AUC/VALERIO is the prefe rred PK/PD target and is associated with decreased risk of nephrotoxicity compared to traditional trough targets.
--- NOTE | 2024-08-13 12:42 | Gastrointestinal Consultation ---
Date of Consultation August 13, 2024 Assessment & Plan (1) Constipation: (2) Nausea & vomiting: (3) Diarrhea: Plan Patient is a frail appearing female who we are asked to see for CT scan showing colitis and gastritis. she has had symptoms of nausea/vomiting in the past that seem to correlate with constipation. Her CT does show moderate stool and likely contributes to the colitis. - will increase protonix to 40mg bid for possible gastritis on CT. - change the miralax from a prn med to a daily med given her underlying constipation issues. - will discuss case further with Dr. Mclean. Further recommendations to follow. Supervising Physician Co-Signing Physician Notes I saw and examined this patient with our nurse practitioner and agree with her assessment and plan. Nausea and vomiting has improved since admission. Possibilities include medication induced, gastritis or infectious etiology. If symptoms recur would consider an endoscopy to further evaluate. For now would consider symptomatic relief with antiemetics and proton pump inhibitor. Although her CT scan shows a large stool volume in her rectosigmoid her major complaints are frequent bowel movements and loose stool. C. difficile has been negative. However she is someone who would be at risk for that in light of her multiple antibiotic recently. In light of her other comorbidities including her leukemia and transplant status need to consider opportunistic infections such as CMV as well as lexgs-ctamol-wtgh disease which she has had in the past. She has been taking magnesium which could also cause diarrhea. The large stool volume in her rectosigmoid may be causing some overflow diarrhea. Recommend starting MiraLAX daily to see if we could help resolve her large stool burden. I would recommend stopping her magnesium. If symptoms persist would consider at least a flexible sigmoidoscopy for further investigation. Will follow her daily. History of Present Illness Reason for Consultation: Colitis, nausea, vomiting, diarrhea Requesting Physician: Rita Ochoa MD Attending Physician: Rita Ochoa MD History of Present Illness Patient is a 69 year old female with a past medical history significant for diabetes, hypothyroidism, history of hypokalemia and hypomagnesia, history of Takotsubo cardiomyopathy, history of mitral valve prolapse, history of autoimmune hepatitis, history of GERD, chronic diarrhea, amputation of the left great toe, history of syncope, history of AML, AML relapse , history of leukemia cutis, chemotherapy induced neutropenia, history of ITP, 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 Recently, she has had ongoing lower extremity wounds and found to be septic which required admissions. This has been an ongoing issue per patient. she has progressively been getting weaker and has a poor appetite. She had CT scan done 08/13 showing diffuse colonic wall thickening that is likely a nonspecific proctocolitis with moderate stool in colon and rectum. no obstruction. There was also gastric fold thickening that may represent gastritis. Patient tells me she will have episodes of nausea and emesis. This may related to constipation per her who also helps provide history. no heartburn. Patient admits that stools can fluctuate from hard to loose and she will have 2- 3 bowel movements a day. no blood or melena. no abdominal pain. Last EGD and colonoscopy were done through [facility] in 2018 and were unremarkable outside of colon polyps. Allergies Allergy/AdvReac Type Severity Reaction Status Date / Time amoxicillin AdvReac Intermediate NAUSEA/VOMI Verified 07/27/24 14:10 TING Penicillins AdvReac Intermediate NAUSEA/VOMITING/"FEELS Verified 07/27/24 14:10 NERVOUS" Home Medications Medication Instructions Recorded Confirmed Type acetaminophen 500 mg tablet 500 mg PO Q6H PRN Pain 08/11/24 08/11/24 History apixaban 5 mg tablet (Eliquis) 5 mg PO BID 08/11/24 08/11/24 History bupropion HCl 150 mg 24 hr tablet, 150 mg PO DAILY 08/11/24 08/11/24 History extended release bupropion HCl 300 mg 24 hr tablet, 300 mg PO DAILY 08/11/24 08/11/24 History extended release buspirone 10 mg tablet 10 mg PO BID 08/11/24 08/11/24 History calcium 500 mg (as carbonate)-vit 1 tab PO BID 08/11/24 08/11/24 History D3 10 mcg (400 unit) chewable tablet (Calcium 500 + D) cyanocobalamin (vitamin B-12) 1,000 mcg PO DAILY 08/11/24 08/11/24 History 1,000 mcg tablet levothyroxine 150 mcg tablet 150 mcg PO DAILY 08/11/24 08/11/24 History (Synthroid) linezolid 600 mg tablet (Zyvox) 600 mg PO BID 08/11/24 08/11/24 History lorazepam 0.5 mg tablet 0.5 mg PO DAILY PRN Anxiety 08/11/24 08/11/24 History magnesium chloride 64 mg 64 mg PO BID 08/11/24 08/11/24 History (magnesium chloride) tablet,delayed release metoprolol succinate 25 mg 12.5 mg PO DAILY 08/11/24 08/11/24 History tablet,extended release 24 hr midodrine 2.5 mg tablet 2.5 mg PO UD 08/11/24 08/11/24 History omeprazole 20 mg capsule,delayed 20 mg PO DAILY 08/11/24 08/11/24 History release oxycodone-acetaminophen 7.5 mg-325 1 tab PO Q6H PRN Pain 08/11/24 08/11/24 History mg tablet potassium chloride 20 mEq 20 meq PO DAILY 08/11/24 08/11/24 History tablet,extended release prochlorperazine maleate 10 mg 10 mg PO Q8H PRN Nausea 08/11/24 08/11/24 History tablet (Compazine) Patient History Medical History Lymphedema Acute alteration in mental status S/P radiation therapy before bone marrow transplant 12-11-2016 History of diabetes mellitus HX STEROID INDUCED DIABETES, NOW RESOLVED Low blood pressure Sepsis due to Pseudomonas species with acute organ dysfunction and septic shock this happened 100 days after the transplant CMV (cytomegalovirus infection) HX ? PT NOT SURE Autoimmune hepatitis Nausea and vomiting after administration of anesthetic agent Hypothyroidism AML (acute myeloblastic leukemia) diagnosed - CURRENT CHEMOTHERAPY/PORT RIGHT CHEST TMJ disease HX SURGERY, RESOLVED PROBLEM Depression Anxiety Migraine HX Takotsubo cardiomyopathy reason for metoprolol--follows with Dr. 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 History of amputation of toe left big toe History of hemorrhoidectomy History of colonoscopy History of esophagogastroduodenoscopy (EGD) History of vascular access device right APORT History of mandibular surgery TMJ sx--plate in right side of jaw History of tooth extraction History of wisdom tooth extraction History of cardiac cath 2012 in [place]---no stents Family History Sister Family history of diabetes mellitus Mother , age 84 Head and neck cancer COPD (chronic obstructive pulmonary disease) Father , age 75 Esophageal cancer Sister Vertigo Hypertension Sister Hypothyroidism Brother Combined hyperlipidemia Brother Colorectal cancer Brother Gout Brother No problems noted. 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 lethargic but cooperative. Respiratory: normal respiratory effort, lungs clear to auscultation Cardiovascular: Rate/Rhythm: regular rate and regular rhythm Gastrointestinal (Abdomen): normal bowel sounds, soft, nontender, no hepatosplenomegaly Results & Data Vital Signs (Past 12 Hours) Vital Signs Temp Pulse Pulse Resp BP Pulse Ox O2 Del Method 08/13/24 12:14 92/62 L 97 Nasal Cannula 08/13/24 11:44 97.9 F 69 19 90/61 L 90 Nasal Cannula 08/13/24 08:00 Nasal Cannula 08/13/24 07:18 67 08/13/24 07:15 97.9 F 67 17 114/77 100 Nasal Cannula 08/13/24 02:43 97.0 F L 63 14 100/62 92 Nasal Cannula O2 Flow Rate 08/13/24 12:14 2 08/13/24 11:44 2 08/13/24 08:00 2 08/13/24 07:18 08/13/24 07:15 2 08/13/24 02:43 2 Laboratory Results Laboratory Results - last 48 hr 01/02/2608/11/24 08/11/24 15:32 16:00 17:43 WBC 11.04 H RBC 2.70 L Hgb 10.0 L Hct 29.6 L MCV 109.6 H MCH 37.0 H MCHC 33.8 RDW Std Deviation 53.1 H RDW Coeff of Selam 13.2 Plt Count 101 L MPV 10.8 Immature Gran % (Auto) 0.7 Neut % (Auto) 88.2 Lymph % (Auto) 6.8 [place] % (Auto) 2.6 Eos % (Auto) 1.4 Baso % (Auto) 0.3 Neut # (Auto) 9.74 H Lymph # (Auto) 0.75 L [place] # (Auto) 0.29 Eos # (Auto) 0.15 Baso # (Auto) 0.03 Immature Gran # (Auto) 0.08 Absolute Nucleated RBC 0.02 Nucleated RBC % (auto) 0.2 Peripher Smr Path Cons PT 11.9 INR 1.1 APTT 30 PTT Ratio 1.1 VBG pH 7.37 VBG pCO2 49 VBG pO2 35 VBG HCO3 28 VBG O2 Saturation < 60.0 VBG Base Excess 2.4 Sodium 140 Potassium 3.6 Chloride 106 Carbon Dioxide 29 Anion Gap 5 BUN 18 Creatinine 0.87 Est Cr Clr Drug Dosing 57.9 eGFR 72.53 BUN/Creatinine Ratio 20.7 H Glucose 113 H Lactate 2.7 H* Calcium 8.0 L Phosphorus Magnesium 1.8 Total Bilirubin 0.5 AST 28 ALT 18 Alkaline Phosphatase 294 H Troponin I High Sens 41.7 H 39.9 H B-Natriuretic Peptide 562 H Total Protein 4.4 L Albumin 2.1 L Globulin 2.3 L Albumin/Globulin Ratio 0.9 Procalcitonin 0.38 Urine Color Urine Appearance Urine pH Ur Specific Potter Urine Protein Urine Glucose (UA) Urine Ketones Urine Blood Urine Nitrite Urine Bilirubin Urine Urobilinogen Ur Leukocyte Esterase Urine WBC (Auto) Urine RBC (Auto) U Hyaline Cast (Auto) U Epithel Cells (Auto) Urine Bacteria (Auto) Calcium Oxalate Crystal Nasal Screen MRSA (PCR) Stl C. cayetanensis PCR Stool Rotavirus A PCR Stl Adenov F 40/41 PCR Stool Astrovirus (PCR) Stool Campylobacter PCR Stl C. diff Tox B Gene Stool Cryptosporidium PCR Stl E.coli Shiga Tox PCR Stl Enterotoxigenic E PCR Stool EPEC (PCR) Stool EAEC (PCR) Stl E. histolytica PCR Stool Giardia Lamblia PCR Stool Salmonella PCR Stool Sapovirus (PCR) Stl P. shigelloides PCR Stl Shigella/EIEC PCR St Y.enterocolitica PCR Stool Vibrio (PCR) Stl Vibrio cholerae PCR Stl Norovirus GI/GII PCR Adenovirus (PCR) Not Detected B. pertussis DNA (PCR) Not Detected B.parapertussis DNA PCR Not Detected C. pneumoniae DNA (PCR) Not Detected Coronavirus OC43 (PCR) Not Detected Coronavirus HKU1 (PCR) Not Detected Coronavirus 229E (PCR) Not Detected SARS-CoV-2 (PCR) Not Detected Coronavirus NL63 (PCR) Not Detected Human Metapneumovir PCR Not Detected Influenza Type A (PCR) Not Detected Influenza Type B (PCR) Not Detected M. pneumoniae (PCR) Not Detected Parainfluenza 1 (PCR) Not Detected Parainfluenza 2 (PCR) Not Detected Parainfluenza 3 (PCR) Not Detected Parainfluenza 4 (PCR) Not Detected RSV (PCR) Not Detected Entero/Rhino (PCR) Not Detected 08/11/24 08/11/24 08/12/24 18:42 Unknown 00:50 WBC RBC Hgb Hct MCV MCH MCHC RDW Std Deviation RDW Coeff of Selam Plt Count MPV Immature Gran % (Auto) Neut % (Auto) Lymph % (Auto) [place] % (Auto) Eos % (Auto) Baso % (Auto) Neut # (Auto) Lymph # (Auto) [place] # (Auto) Eos # (Auto) Baso # (Auto) Immature Gran # (Auto) Absolute Nucleated RBC Nucleated RBC % (auto) Peripher Smr Path Cons PT INR APTT PTT Ratio VBG pH VBG pCO2 VBG pO2 VBG HCO3 VBG O2 Saturation VBG Base Excess Sodium Potassium Chloride Carbon Dioxide Anion Gap BUN Creatinine Est Cr Clr Drug Dosing eGFR BUN/Creatinine Ratio Glucose Lactate 2.7 H* Calcium Phosphorus Magnesium Total Bilirubin AST ALT Alkaline Phosphatase Troponin I High Sens B-Natriuretic Peptide Total Protein Albumin Globulin Albumin/Globulin Ratio Procalcitonin Urine Color Dark Yellow Urine Appearance Clear Urine pH 5.5 Ur Specific Potter 1.029 Urine Protein Negative Urine Glucose (UA) Negative Urine Ketones Negative Urine Blood Trace H Urine Nitrite Negative Urine Bilirubin Negative Urine Urobilinogen Negative Ur Leukocyte Esterase Trace H Urine WBC (Auto) 0-5 Urine RBC (Auto) 6-10 H U Hyaline Cast (Auto) 0-2 U Epithel Cells (Auto) 0-2 Urine Bacteria (Auto) None Seen Calcium Oxalate Crystal Present A Nasal Screen MRSA (PCR) Negative Stl C. cayetanensis PCR Stool Rotavirus A PCR Stl Adenov F PCR Stool Astrovirus (PCR) Stool Campylobacter PCR Stl C. diff Tox B Gene Stool Cryptosporidium PCR Stl E.coli Shiga Tox PCR Stl Enterotoxigenic E PCR Stool EPEC (PCR) Stool EAEC (PCR) Stl E. histolytica PCR Stool Giardia Lamblia PCR Stool Salmonella PCR Stool Sapovirus (PCR) Stl P. shigelloides PCR Stl Shigella/EIEC PCR St Y.enterocolitica PCR Stool Vibrio (PCR) Stl Vibrio cholerae PCR Stl Norovirus GI/GII PCR Adenovirus (PCR) B. pertussis DNA (PCR) B.parapertussis DNA PCR C. pneumoniae DNA (PCR) Coronavirus OC43 (PCR) Coronavirus HKU1 (PCR) Coronavirus 229E (PCR) SARS-CoV-2 (PCR) Coronavirus NL63 (PCR) Human Metapneumovir PCR Influenza Type A (PCR) Influenza Type B (PCR) M. pneumoniae (PCR) Parainfluenza 1 (PCR) Parainfluenza 2 (PCR) Parainfluenza 3 (PCR) Parainfluenza 4 (PCR) RSV (PCR) Entero/Rhino (PCR) 08/12/24 08/12/24 08/12/24 05:41 07:08 11:13 WBC 8.39 RBC 2.47 L Hgb 9.0 L Hct 27.0 L MCV 109.3 H MCH 36.4 H MCHC 33.3 RDW Std Deviation 52.7 H RDW Coeff of Selam 13.1 Plt Count 73 L MPV 10.8 Immature Gran % (Auto) 0.6 Neut % (Auto) 84.0 Lymph % (Auto) 9.9 [place] % (Auto) 3.3 Eos % (Auto) 2.1 Baso % (Auto) 0.1 Neut # (Auto) 7.04 H Lymph # (Auto) 0.83 L [place] # (Auto) 0.28 Eos # (Auto) 0.18 Baso # (Auto) 0.01 Immature Gran # (Auto) 0.05 Absolute Nucleated RBC Nucleated RBC % (auto) Peripher Smr Path Cons PT INR APTT PTT Ratio VBG pH VBG pCO2 VBG pO2 VBG HCO3 VBG O2 Saturation VBG Base Excess Sodium 140 Potassium 3.4 L Chloride 108 H Carbon Dioxide 29 Anion Gap 3 BUN 17 Creatinine 0.78 Est Cr Clr Drug Dosing 64.6 eGFR 82.68 BUN/Creatinine Ratio 21.8 H Glucose 85 Lactate 1.2 Calcium 7.5 L Phosphorus Magnesium 1.7 Total Bilirubin AST ALT Alkaline Phosphatase Troponin I High Sens 51.1 H* D 44.7 H B-Natriuretic Peptide Total Protein Albumin Globulin Albumin/Globulin Ratio Procalcitonin Urine Color Urine Appearance Urine pH Ur Specific Potter Urine Protein Urine Glucose (UA) Urine Ketones Urine Blood Urine Nitrite Urine Bilirubin Urine Urobilinogen Ur Leukocyte Esterase Urine WBC (Auto) Urine RBC (Auto) U Hyaline Cast (Auto) U Epithel Cells (Auto) Urine Bacteria (Auto) Calcium Oxalate Crystal Nasal Screen MRSA (PCR) Stl C. cayetanensis PCR Stool Rotavirus A PCR Stl Adenov F PCR Stool Astrovirus (PCR) Stool Campylobacter PCR Stl C. diff Tox B Gene Stool Cryptosporidium PCR Stl E.coli Shiga Tox PCR Stl Enterotoxigenic E PCR Stool EPEC (PCR) Stool EAEC (PCR) Stl E. histolytica PCR Stool Giardia Lamblia PCR Stool Salmonella PCR Stool Sapovirus (PCR) Stl P. shigelloides PCR Stl Shigella/EIEC PCR St Y.enterocolitica PCR Stool Vibrio (PCR) Stl Vibrio cholerae PCR Stl Norovirus GI/GII PCR Adenovirus (PCR) B. pertussis DNA (PCR) B.parapertussis DNA PCR C. pneumoniae DNA (PCR) Coronavirus OC43 (PCR) Coronavirus HKU1 (PCR) Coronavirus 229E (PCR) SARS-CoV-2 (PCR) Coronavirus NL63 (PCR) Human Metapneumovir PCR Influenza Type A (PCR) Influenza Type B (PCR) M. pneumoniae (PCR) Parainfluenza 1 (PCR) Parainfluenza 2 (PCR) Parainfluenza 3 (PCR) Parainfluenza 4 (PCR) RSV (PCR) Entero/Rhino (PCR) 08/12/24 08/12/24 08/13/24 16:56 21:40 07:28 WBC 8.18 RBC 2.41 L Hgb 8.9 L Hct 26.4 L MCV 109.5 H MCH 36.9 H MCHC 33.7 RDW Std Deviation 51.1 H RDW Coeff of Selam 12.8 Plt Count 60 L MPV 11.4 Immature Gran % (Auto) 0.4 Neut % (Auto) 81.0 Lymph % (Auto) 10.5 [place] % (Auto) 4.5 Eos % (Auto) 3.4 Baso % (Auto) 0.2 Neut # (Auto) 6.62 H Lymph # (Auto) 0.86 L [place] # (Auto) 0.37 Eos # (Auto) 0.28 Baso # (Auto) 0.02 Immature Gran # (Auto) 0.03 Absolute Nucleated RBC Nucleated RBC % (auto) Peripher Smr Path Cons PT INR APTT PTT Ratio VBG pH VBG pCO2 VBG pO2 VBG HCO3 VBG O2 Saturation VBG Base Excess Sodium 140 Potassium 3.7 Chloride 110 H Carbon Dioxide 28 Anion Gap 2 L BUN 14 Creatinine 0.72 Est Cr Clr Drug Dosing 70.0 eGFR 91.02 BUN/Creatinine Ratio 19.4 Glucose 73 Lactate Calcium 7.7 L Phosphorus 2.5 Magnesium 1.6 L Total Bilirubin AST ALT Alkaline Phosphatase Troponin I High Sens 43.1 H B-Natriuretic Peptide Total Protein Albumin Globulin Albumin/Globulin Ratio Procalcitonin Urine Color Urine Appearance Urine pH Ur Specific Potter Urine Protein Urine Glucose (UA) Urine Ketones Urine Blood Urine Nitrite Urine Bilirubin Urine Urobilinogen Ur Leukocyte Esterase Urine WBC (Auto) Urine RBC (Auto) U Hyaline Cast (Auto) U Epithel Cells (Auto) Urine Bacteria (Auto) Calcium Oxalate Crystal Nasal Screen MRSA (PCR) Stl C. cayetanensis PCR Not Detected Stool Rotavirus A PCR Not Detected Stl Adenov F 40/41 PCR Not Detected Stool Astrovirus (PCR) Not Detected Stool Campylobacter PCR Not Detected Stl C. diff Tox B Gene Negative Cdiff Gene Stool Cryptosporidium PCR Not Detected Stl E.coli Shiga Tox PCR Not Detected Stl Enterotoxigenic E PCR Not Detected Stool EPEC (PCR) Not Detected Stool EAEC (PCR) Not Detected Stl E. histolytica PCR Not Detected Stool Giardia Lamblia PCR Not Detected Stool Salmonella PCR Not Detected Stool Sapovirus (PCR) Not Detected Stl P. shigelloides PCR Not Detected Stl Shigella/EIEC PCR Not Detected St Y.enterocolitica PCR Not Detected Stool Vibrio (PCR) Not Detected Stl Vibrio cholerae PCR Not Detected Stl Norovirus GI/GII PCR Not Detected Adenovirus (PCR) B. pertussis DNA (PCR) B.parapertussis DNA PCR C. pneumoniae DNA (PCR) Coronavirus OC43 (PCR) Coronavirus HKU1 (PCR) Coronavirus 229E (PCR) SARS-CoV-2 (PCR) Coronavirus NL63 (PCR) Human Metapneumovir PCR Influenza Type A (PCR) Influenza Type B (PCR) M. pneumoniae (PCR) Parainfluenza 1 (PCR) Parainfluenza 2 (PCR) Parainfluenza 3 (PCR) Parainfluenza 4 (PCR) RSV (PCR) Entero/Rhino (PCR) Coding Level of Care Code 78771 INT INP/OBS CARE 2MIN Diagnoses Constipation K59.00 Nausea & vomiting R11.2 Diarrhea R19.7
[2024-08-13] MEDS ORDERED: LORazepam 2 MG/1 ML VIAL IV PRN (13:38)
--- NOTE | 2024-08-13 13:38 | Hospitalist Progress Note ---
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 Possible Sepsis Chronic lower extremity wounds Possible acute gastroenteritis Pt presenting with progressive weakness, hypotension and slight leukocytosis She notes persistent frequent bowel movements and notes episodes of N/V Lactate elevated at 2.7, normalized after IV fluids Recently treated for lower extremity cellulitis but lower extremities are not concerning for infection on exam. Chronic wounds, wounds noted on arms as well Bilateral lower extremity MRIs completed during the last admission Wound cultures from lower extremities and arms pending C diff and stool cx pending Blood Cx x2 sets pending CT abd/pelvis ordered and noting colitis, femur fracture. GI and orthopedics consulted. Was initially on IV cefepime and Linezolid Infectious Disease was consulted, recommended /stated the following: -switch Linezolid to Vancomycin -treat with abx for 48hrs and then monitor off abx Palliative Care also consulted, appreciate further recs Continue to monitor Hypotension Chronic issue for her AM orthostatic vitals as able On gentle IV fluids On midodrine 2,5mg TID, can increase dose as needed consider an adrenal cause, no noted recent use of chronic steroids Holding home diuretics Continue to monitor R Femur fracture Noted on CT abd/pelvis Ortho consulted Colitis GI consulted, appreciate recs Bilateral lower extremity edema Possibly from medications, DVT and malnutrition and mitral prolapse Compression stockings recommended Diuretics were discontinued secondary to hypotension Monitor Abnormal EKG Trop elevated at 51 once more before downtrending Echo from 07/29 reviewed Will follow repeat EKG Refractory AML and leukemia cutis Currently chemotherapy on hold for lower extremity wounds and overall general condition AM Peripheral smear ordered and pending Follow-up with heme-onc Chronic DVT and superficial thrombus On Eliquis History of mitral valve prolapse History of Takotsubo cardiomyopathy Echo done on 07/12/2024 EF 60 to 65% Depression General Anxiety disorder Will hold and BuSpar while on Zyvox Hypothyroidism On Synthyroid Chronic pain in right lower extremity On Percocet as needed at home Diet:regular, easy to chew DVT prophylaxis: On Eliquis Dispo: PT/OT ordered, back to [facility] once medically stable Admission and Anticipated Discharge Date Admission Date: August 11, 2024 Subjective Extensive discussion with patient and today CT abdomen pelvis with new findings of femur fracture as well as colitis, nonspecific Also noting fluid overload but patient with hypotension precluding use of diuretics Patient and agreeable to seeing palliative care once more Case also discussed extensively with [facility] provider Dr. Richard Review of Systems Review of Systems: All systems reviewed & are unremarkable except as noted in Subjective Physical Exam Physical Exam: General: Alert, oriented. appears tired Psych: sad mood and affect Neuro: difficulty with movements in the bed HEENT: NC/AT Resp: no increased effort of breathing Results & Data Results & Data Vital Signs (Past 12 Hours) Vital Signs Temp Pulse Pulse Resp BP Pulse Ox O2 Del Method 08/13/24 12:14 92/62 L 97 Nasal Cannula 08/13/24 11:44 36.6 C 69 19 90/61 L 90 Nasal Cannula 08/13/24 08:00 Nasal Cannula 08/13/24 07:18 67 08/13/24 07:15 36.6 C 67 17 114/77 100 Nasal Cannula 08/13/24 02:43 36.1 C L 63 14 100/62 92 Nasal Cannula O2 Flow Rate 08/13/24 12:14 2 08/13/24 11:44 2 08/13/24 08:00 2 08/13/24 07:18 08/13/24 07:15 2 08/13/24 02:43 2 Diagnostic Findings Chest X-Ray 08/11/24 15:23 INDICATION: Cough. TECHNIQUE: Frontal radiograph of the chest. COMPARISON: 07/31/2024. FINDINGS: Cardiomegaly. Moderate pulmonary vascular congestion. Bilateral pleural effusions with atelectasis/airspace disease, slightly worsened from prior. No pneumothorax. No acute fracture. Right-sided chest port in similar position. IMPRESSION:Moderate pulmonary vascular congestion. Bilateral pleural effusions with atelectasis/airspace disease, slightly worsened from prior. Electronically signed by Garrison Hairston 08-11-2024 4:31 PM Abdomen/Pelvis CT 08/13/24 08:00 CT OF THE ABDOMEN AND PELVIS WITH CONTRAST CLINICAL HISTORY: Persistent diarrhea, nausea and vomiting. COMPARISON STUDY: Right upper quadrant ultrasound March 31, 2017. CTA of the abdomen and pelvis March 31, 2017. TECHNIQUE: Following IV administration of 94 mL of Optiray, axial images of the abdomen and pelvis were obtained from the lung bases to the proximal femurs. Images were reviewed in the axial, sagittal, and coronal planes. IV contrast was administered without complication. Automated exposure control was utilized for the study. A dose lowering technique was utilized adhering to the principles of ALARA. CT DOSE: 1168.12 mGy.cm FINDINGS: There are mild groundglass opacities within the right lung. Moderate to large bilateral pleural effusions are partially imaged. There is extensive body wall edema. No pneumatosis, free air or portal venous gas is present. There are no hepatic lesions. Liver surface is lobulated. There is no biliary or pancreatic ductal dilatation. A small amount of abdominal and pelvic ascites is present. Spleen, adrenal glands, kidneys and pancreas are unremarkable. There is no hydronephrosis. There is apparent fold thickening within the stomach. Prominent mucosal enhancement of the stomach is also noted. Findings suggest adenomyomatosis of the gallbladder fundus. There is no evidence for a bowel obstruction. There is a moderate amount of stool within the distal colon and rectum. Perirectal stranding is present. There is wall thickening of the colon and rectum. This is most pronounced within the ascending colon and distal rectum. No associated fluid collection is present. Calcified fibroids are incidentally noted. There is no abdominal or pelvic lymphadenopathy. Note is made of a comminuted moderately displaced fracture of the greater trochanter of the right femur. This was not evident on previous radiograph June 15, 2024. Sclerosis within the intertrochanteric portion of the right femur is present. Severe bilateral hip osteoarthritis is present. IMPRESSION: 1. Diffuse colorectal wall thickening. This represents a nonspecific proctocolitis. Moderate amount of stool within the distal colon and rectum. 2. No evidence for a bowel obstruction. 3. Evidence for volume overload with moderate to large bilateral pleural effusions, extensive body wall edema and a small amount of abdominal and pelvic ascites. 4. Moderately displaced, comminuted fracture of the greater trochanter of the right femur. This fracture is likely subacute. Sclerosis within the intertrochanteric portion of the femur raises the possibility of intertrochanteric extension. 5. Gastric fold thickening with mucosal enhancement. The findings are nonspecific and could be due to underdistention however may represent gastritis. ACT 112: Negative or not required by law. Electronically signed by: Armando Horvath M.D. 08/13/2024 8:39 AM Venous Doppler Study 08/13/24 11:52 BILATERAL LOWER EXTREMITY VENOUS DOPPLER HISTORY: possible DVT noted on CT abd/pelvis, iliac, femora COMPARISON STUDY: 07/29/2024 FINDINGS: No evidence of occlusive DVT seen in either lower extremity. There is possible chronic nonocclusive thrombus or wall thickening at bilateral common femoral veins and saphenous veins. IMPRESSION: 1. No acute occlusive DVT seen at the lower extremities. 2. Possible chronic nonocclusive thrombus or wall thickening at bilateral common femoral veins and saphenous veins. ACT 112: Negative or not required by law. Electronically signed by: Kevin Chacon M.D. 08/13/2024 2:29 PM Hip/Pelvis X-Ray 08/13/24 14:23 EXAM: Radiographs of the Right Hip 3 Views INDICATION: Trochanteric fracture noted on CT. TECHNIQUE: Front view pelvis and AP and frog leg lateral views of the right hip. COMPARISON: 06/15/2024 FINDINGS: Limitations: None. Bones/joints: There is a 2.5 x 2.8 cm fragment from the right greater trochanter distracted cranially by 1.5 cm. Stable moderate to severe primary osteoarthritic change of each hip left greater than right. Stable mild sclerosis and flattening of the femoral heads suggestive of early/mild avascular necrosis. Soft tissues: No abnormality noted. No radiopaque foreign body noted. Calcified uterine fibroids noted. IMPRESSION: 1. Distracted fracture of the right greater trochanter new since 06/15/2024. 2. 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 ACT 112: Negative or not required by law. Electronically signed by Maryse Nicholas 08-13-2024 4:23 PM
[2024-08-13] MEDS: HYDROmorphone INJ 0.5 MG/0.5 ML SYR IV PRN (14:15)
[2024-08-13] MEDS: FUROSEMIDE INJ 20 MG/2 ML VIAL IV ONE (14:15)
--- NOTE | 2024-08-13 14:22 | Palliative Family Discussion ---
Date of Service August 13, 2024 Patient Directed Conference Time of Meetin-130pm Participants: Yvrose Melgar DNP Patient participation: yes Patient Support System: Zane Other Healthcare Provider Participation: None Meeting Location: bedside Advanced Directive available: no This face to face ACP meeting was held at bedside for JONATHAN YEN. This meeting was necessary for determining the appropriate course of treatment. Topics of Discussion Topics of Discussion: 1. I met with pt and . Reviewed CT results and overall decline. She notes she has outlived her disease. I agreed and said I feel this is a failure to thrive situation which i worry is heading into a multi organ failure picture. I advised that I did not see benefit from anything like TPN. Would not have a role for chemo at this time bernice given progressive decline in PS, weight loss/anorexia. I reviewed CPR and advised DNR/DNI, advised of poor outcomes with CPR in her complex medical situation. I reviewed the risks of trying to initiate diuretic therapy with her BP so soft and she acknowledged the risk but felt she would be willing to try a low dose to see if it helps subjectively relieve symptoms. We agreed on a Lasix 10mg IV x 1 dose and if she declines, move to comfort. She would like to try a low dose of diuretic and accepts the risks. I advised her I spoke with oncology who do not feel there is a role for more chemo and her overall poor PS, decline, anorexia and malnutrition indicate there would not be benefit to a hi risk intervention such as chemo. She agreed and stated "that is likely the truth." She would ultimately like to be home with hospice if she is able to get there but if she acutely declines, would move to comfort. 2. Lasix 10mg IV x 1 now; prn meds for symptom mgt ordered to be implemented if transition to comfort is needed 3. Medical teams updated Other Content of Meetin. Opportunity given for participants to speak and ask questions. 2. Participants were assured of attention to patient comfort. 3. Reassurance provided. 4. Support was provided for informed, good-tessa decisions. 5. Emotions expressed by family were acknowledged and addressed. TS 75min face to face: 50 with pt and , additional 25min outside the room with alone per his request/asking for guidance how to communicate with family. Thank you for allowing us to participate in the ongoing care of this patient. Please page with any additional concerns. Ivan Melgar DNP Director, Palliative Medicine
--- NOTE | 2024-08-13 14:31 | Ultrasound Report ---
BILATERAL LOWER EXTREMITY VENOUS DOPPLER HISTORY: possible DVT noted on CT abd/pelvis, iliac, femora COMPARISON STUDY: 07/29/2024 FINDINGS: No evidence of occlusive DVT seen in either lower extremity. There is possible chronic nono cclusive thrombus or wall thickening at bilateral common femoral veins and saphenous veins. IMPRESSION: 1. No acute occlusive DVT seen at the lower extremities. 2. Possible chronic nonocclusive thrombus or wall thickening at bilateral common femoral veins and sa phenous veins. ACT 112: Negative or not required by law. Electronically signed by: Kevin Chacon M.D. 08/13/2024 2:29 PM
--- NOTE | 2024-08-13 16:23 | XRay Report ---
EXAM: Radiographs of the Right Hip 3 Views INDICATION: Trochanteric fracture noted on CT. TECHNIQUE: Front view pelvis and AP and frog leg lateral views of the right hip. COMPARISON: 06/15/2024 FINDINGS: Limitations: None. Bones/joints: There is a 2.5 x 2.8 cm fragment from the right greater trochanter distracted cranially by 1.5 cm. Stable moderate to severe primary osteoarthritic change of each hip left greater than right. Stable mild sclerosis and flattening of the femoral heads suggestive of early/mild avascular necrosis. Soft tissues: No abnormality noted. No radiopaque foreign body noted. Calcified uterine fibroids noted. IMPRESSION: 1. Distracted fracture of the right greater trochanter new since 06/15/2024. 2. 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 ACT 112: Negative or not required by law. Electronically signed by Maryse Nicholas 08-13-2024 4:23 PM
[2024-08-13] MEDS: ONDANSETRON INJ 2 MG/ML 2 ML VIAL IV PRN (16:26)
[2024-08-13] MEDS: MIDODRINE HCL 2.5 MG TAB PO SCH (17:31)
--- NOTE | 2024-08-13 17:32 | Orthopedic Consultation ---
Date of Service August 13, 2024 Assessment & Plan (1) Fracture of greater trochanter of right femur: I reviewed the diagnosis with her Kavin. It is possible that the fracture occurred in June but was not revealed on x-rays until displaced further. It is hard to know with certainty. She does have minimal mobility at this point and is severely deconditioned. Comfort measures are indicated only. No plans for surgical intervention. I told Kavin that she could expect some hip abduction weakness which may interfere with walking or standing, but this could be compensated for with a cane or walker. She is to be treated for the fracture pain as needed. Orthopedics could be contacted should her condition change and the fracture is interfering with her ambulatory status, or if there are any other concerns regarding this right hip. She may be weightbearing and range of motion as tolerated with this fracture. There are no concerns with positioning for transfers. History of Present Illness Reason for Consultation: Right greater trochanteric avulsion fracture Requesting Physician: . Attending Physician: Rita Ochoa MD 69-year-old female admitted with possible sepsis and failure to thrive was found to have a greater trochanteric avulsion fracture incidentally on a CT abdomen pelvis obtained for another reason. There is a history of a fall back in June. She was seen in the [facility] emergency room. X-rays were reassuring at that time and no fractures were seen. There is no consistent pattern of pain since that time. She has been using a walker for the most in the past year. She has not walked much recently. She has been out of bed to a chair only well admitted on this episode. Patient participated minimally in my history taking. I did speak with her , Kavin, by phone regarding this finding. She has been having some discomfort around the hip. No known injury since June. She is fairly deconditioned and palliative care is involved. She is in no condition for surgical intervention should it be warranted. Allergies Allergy/AdvReac Type Severity Reaction Status Date / Time amoxicillin AdvReac Intermediate NAUSEA/VOMI Verified 07/27/24 14:10 TING Penicillins AdvReac Intermediate NAUSEA/VOMITING/"FEELS Verified 07/27/24 14:10 NERVOUS" Home Medications Medication Instructions Recorded Confirmed Type acetaminophen 500 mg tablet 500 mg PO Q6H PRN Pain 08/11/24 08/11/24 History apixaban 5 mg tablet (Eliquis) 5 mg PO BID 08/11/24 08/11/24 History bupropion HCl 150 mg 24 hr tablet, 150 mg PO DAILY 08/11/24 08/11/24 History extended release bupropion HCl 300 mg 24 hr tablet, 300 mg PO DAILY 08/11/24 08/11/24 History extended release buspirone 10 mg tablet 10 mg PO BID 08/11/24 08/11/24 History calcium 500 mg (as carbonate)-vit 1 tab PO BID 08/11/24 08/11/24 History D3 10 mcg (400 unit) chewable tablet (Calcium 500 + D) cyanocobalamin (vitamin B-12) 1,000 mcg PO DAILY 08/11/24 08/11/24 History 1,000 mcg tablet levothyroxine 150 mcg tablet 150 mcg PO DAILY 08/11/24 08/11/24 History (Synthroid) linezolid 600 mg tablet (Zyvox) 600 mg PO BID 08/11/24 08/11/24 History lorazepam 0.5 mg tablet 0.5 mg PO DAILY PRN Anxiety 08/11/24 08/11/24 History magnesium chloride 64 mg 64 mg PO BID 08/11/24 08/11/24 History (magnesium chloride) tablet,delayed release metoprolol succinate 25 mg 12.5 mg PO DAILY 08/11/24 08/11/24 History tablet,extended release 24 hr midodrine 2.5 mg tablet 2.5 mg PO UD 08/11/24 08/11/24 History omeprazole 20 mg capsule,delayed 20 mg PO DAILY 08/11/24 08/11/24 History release oxycodone-acetaminophen 7.5 mg-325 1 tab PO Q6H PRN Pain 08/11/24 08/11/24 History mg tablet potassium chloride 20 mEq 20 meq PO DAILY 08/11/24 08/11/24 History tablet,extended release prochlorperazine maleate 10 mg 10 mg PO Q8H PRN Nausea 08/11/24 08/11/24 History tablet (Compazine) Past Med/Surg History Problem List (Updated 08/13/24 @ 17:30 by Zohaib Banda MD) Fracture of greater trochanter of right femur Diarrhea Nausea & vomiting Constipation Wound of lower extremity Sepsis Pulmonary vascular congestion (Acute) Acute hypoxic respiratory failure (Acute) Elevated lactic acid level (Acute) Elevated brain natriuretic peptide (BNP) level (Acute) Thrombocytopenia (Acute) Non-ST elevation SD (NSTEMI) (Acute) Lethargic (Acute) Hypotension Cellulitis of left leg Skin tear of left hand without complication (Acute) Hypokalemia (Acute) Anemia (Acute) AMS (altered mental status) (Acute) Advanced care planning/counseling discussion Palliative care by specialist Persistent wound pain Chronic leg pain (Acute) Pain of right lower extremity Leg wound, right (Acute) Chronic leg pain (Acute) Lower extremity edema Venous ulcer of right leg (Acute) Cellulitis (Acute) Pseudomonas infection (Acute) Lab test positive for detection of COVID-19 virus (Acute) Anemia (Acute) Leukemia cutis (Acute) Encounter for pre-operative examination Leukemia cutis (Chronic) Encounter for pre-operative examination Weight loss Diarrhea Unresponsiveness (Acute) Pancytopenia (Acute) Hypotension (Acute) AML (acute myeloblastic leukemia) (Acute) H/O colonoscopy (Chronic) "06/04/2014 diverticulosis, repeat 5 yrs" S/P anal fissurectomy (Chronic) Takotsubo cardiomyopathy (Chronic) Transaminitis Hypothyroidism (Chronic) Hyperbilirubinemia AML (acute myelogenous leukemia) (Chronic) Medical History Bacterial sepsis Severe sepsis Leukocytosis Elevated lactic acid level Elevated troponin Hypocalcemia Hypomagnesemia Acute dehydration Cellulitis Hypotension Sepsis Lymphedema Acute alteration in mental status S/P radiation therapy before bone marrow transplant 12-11-2016 History of diabetes mellitus HX STEROID INDUCED DIABETES, NOW RESOLVED Low blood pressure Sepsis due to Pseudomonas species with acute organ dysfunction and septic shock this happened 100 days after the transplant CMV (cytomegalovirus infection) HX ? PT NOT SURE Autoimmune hepatitis Nausea and vomiting after administration of anesthetic agent Hypothyroidism AML (acute myeloblastic leukemia) diagnosed - CURRENT CHEMOTHERAPY/PORT RIGHT CHEST TMJ disease HX SURGERY, RESOLVED PROBLEM Depression Anxiety Migraine HX Takotsubo cardiomyopathy reason for metoprolol--follows with Dr. 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 History of amputation of toe left big toe History of hemorrhoidectomy History of colonoscopy History of esophagogastroduodenoscopy (EGD) History of vascular access device right APORT History of mandibular surgery TMJ sx--plate in right side of jaw History of tooth extraction History of wisdom tooth extraction History of cardiac cath 2013 in [place]---no stents Family History Sister Family history of diabetes mellitus Mother , age 84 Head and neck cancer COPD (chronic obstructive pulmonary disease) Father , age 75 Esophageal cancer Sister Vertigo Hypertension Sister Hypothyroidism Brother Combined hyperlipidemia Brother Colorectal cancer Brother Gout Brother No problems noted. 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 Physical Exam Right hip: She did point to the trochanteric region as a source of pain in that hip. There is some tenderness in that area. She is irritable with logroll but it is difficult to localize. Very stiff with a logroll. She has positive DF/PF/EHL on command. Palpable DP pulse. Constitutional + ill appearing and + intoxicated appearing; no acute distress Respiratory normal respiratory effort; no respiratory distress Cardiovascular Extremities: normal capillary refill; no edema Results & Data Results & Data Laboratory Results H & H 08/11/24 08/12/24 08/13/24 Range/Units 16:00 05:41 07:28 Hgb 10.0 L 9.0 L 8.9 L (12.0-16.0) g/dl Hct 29.6 L 27.0 L 26.4 L (37.0-47.0) % Coagulation 08/11/24 Range/Units 16:00 INR 1.1 (0.9-1.1) Diagnostic Findings CT scan of the chest/abdomen/pelvis shows slightly comminuted avulsion of the greater trochanteric insertion of the gluteus muscles. Intertrochanteric region without obvious fracture propagation. Femoral neck is intact. Radiographs are obtained after the CT and the radiographs confirm the diagnosis of an avulsion type fracture of the greater trochanter. No obvious subtrochanteric tension. She has severe femoral acetabular osteoarthritis in both hips. PG Care Time/CCT Total # of Minutes Spent Total Time Spent with Patient: Total time spent is greater than 50% in coordination of care (as documented) at patient's floor/unit and/or counseling patient: Coding Level of Care Code 45907 IN/OBS CONSULT LVL 4,60M Diagnoses Fracture of greater trochanter of right femur S72.111A
[2024-08-13] MEDS: PANTOprazole 40 MG TAB PO SCH (20:45)
[2024-08-14 05:13] LABS: Basophils # (auto) 0.03 K/uL (0.00-0.20); Basophils % (auto) 0.3 %; Eosinophils # (auto) 0.35 K/uL (0.00-0.50); Eosinophils % (auto) 3.6 %; Hematocrit (blood only) 28.5 % (37.0-47.0); Hemoglobin 9.5 g/dl (12.0-16.0); Immature Granulocytes # (auto) 0.05 K/uL (0.01-0.20); Immature Granulocytes % (auto) 0.5 %; Lymphocytes % (auto) 7.2 %; Mean Corpuscular Hemoglobin 36.3 pg (25.0-34.0); Mean Corpuscular Hgb Conc 33.3 g/dL (32.0-36.0); Mean Corpuscular Volume 108.8 fL (80.0-100.0); Mean Platelet Volume 11.6 fL (9.4-12.4); Monocytes # (auto) 0.29 K/uL (0.11-0.59); Neutrophils # (auto) 8.29 K/uL (1.40-6.50); Neutrophils % (auto) 85.4 %; Platelet Count 47 K/uL (130-400); RDW Coefficient of Variation 13.1 % (11.5-14.5); RDW Standard Deviation 52.2 fL (36.4-46.3); Red Blood Count 2.62 M/uL (4.20-5.40); White Blood Count 9.71 K/ul (4.8-10.8)
[2024-08-14 05:27] LABS: BUN Creatinine Ratio 20.5 (10-20); Phosphorus 2.1 mg/dl (2.5-4.9); Potassium 3.8 mmol/L (3.5-5.1)
[2024-08-14] MEDS ORDERED: POTASSIUM PHOS 3 MMOL/1 ML INFUSION IV STA (08:23)
[2024-08-14] MEDS: VANCOMYCIN LEVEL ONE (09:14)
[2024-08-14] MEDS: POTASSIUM PHOSPHATE 15 MMOL in SODIUM CHLORIDE 0.9% 250 ML IV ONE (09:56)
[2024-08-14] MEDS: POT PHOSPHATE MONOBASIC W/ SOD TAB PO SCH (10:00)
[2024-08-14] MEDS: POLYETHYLENE (MIRALAX) 17 GM PACK PO SCH (10:03)
--- NOTE | 2024-08-14 10:28 | Gastroenterology Progress Note ---
Date of Service August 14, 2024 Assessment & Plan (1) Nausea & vomiting: (2) Constipation: Plan - will assess how she does with the miralax for the constipation. she is getting her first dosage now. - continue with protonix 40mg bid. Admission and Anticipated Discharge Date Admission Date: August 11, 2024 Supervising Physician Co-Signing Physician Notes I saw and examined this patient with our nurse practitioner and agree with her assessment and plan. No further nausea or vomiting. Diarrhea is less frequent. Continue MiraLAX Protonix. If symptoms persist or intensify will reassess need for further GI evaluation. Subjective Patient is currently taking miralax drink. no bowel movements this morning. no nausea or vomiting at this time. she feels weak. she tells me she was only able to tolerate the drinks with her breakfast. Review of Systems Review of Systems: All systems reviewed & are unremarkable except as noted in HPI & below Physical Exam Respiratory: normal respiratory effort, lungs clear to auscultation Cardiovascular: Rate/Rhythm: regular rate and regular rhythm Gastrointestinal (Abdomen): normal bowel sounds, soft, nontender, no hepatosplenomegaly Psychiatric: Orientation: alert and oriented x 3 Results & Data Results & Data Vital Signs (Past 12 Hours) Vital Signs Temp Pulse Resp BP Pulse Ox O2 Del Method O2 Flow Rate 08/14/24 08:04 97.5 F L 94 H 16 103/71 95 Nasal Cannula 2 08/14/24 03:11 97.9 F 93 H 17 86/58 L 96 Nasal Cannula 08/13/24 23:27 98.4 F 73 18 95/71 L 96 Nasal Cannula Coding Level of Care Code 74190 SUB INP/OBS CARE 2/35MIN Diagnoses Nausea & vomiting R11.2 Constipation K59.00
--- NOTE | 2024-08-14 11:03 | Palliative Care Progress Note ---
Date of Service August 14, 2024 Assessment & Plan (1) Dyspnea and respiratory abnormalities: Plan: increased from yesterday and now s/p lasix IV dose (low dose/gentle trial, also on midodrine for soft pressures) more tired we spoke about what this may mean at this junction and how the low dose of lasix may not help (as we discussed potential failure f yesterday) and that the changes we anticipate may be more decline and increased sx burden which would come with more sx mgt and transition to comfort care. She is is agreement and notes she would like to try and get back home but understands if she becomes too sick for that to manifest. (2) Weakness generalized: (3) Failure to thrive in adult: (4) Advanced care planning/counseling discussion: Plan: I spent an hour with Codi Soto face to face at bedside. she is having a challenging time taking pills, they are leaving them with her alongside a cup of applesauce but her swallow effort seemed to take a lot. She c/o feeling more b reathless and we spoke about what that could mean and reaffirmed the plan for moving to [facility] if anything acutely worsens. She would still like to try and get home and would be accepting of home with hospice if she can get to a place of some stability, or if time is ultimately running short/we have a narrow window to get her home then she'd prefer we help her get home so she can be with her beloved pets and Kavin. we spoke about mortality and the dying process as well as what to expect/what she fears and how those worries can be assuaged/how symptoms are treated etc. We spent some time on a life and legacy review and reaffirmed her pride in the work she did and how she contributed to the wellness of so many people. She spoke about tessa being important and that she believes she has a place in [facility]. She is acknowledging a lot of tough realities but accepting them with taz, I believe. We explored some concerns about life ending before we feel we have lived it as fully as we thought we would and how we can work on some legacy projects. Her energy is so low now that I shared with her my worry about being unsure what she would be able to do but I have given her some ideas for things she can do with Kavin and some ways I can help her next week if she wants. 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 (5) Persistent wound pain: (6) Palliative care by specialist: (7) Takotsubo cardiomyopathy: (8) AML (acute myelogenous leukemia): Plan As above Please do not hesitate to page me via [place] for any urgent/acute needs through the weekend. Thank you for allowing us to participate in the ongoing care of this patient. Please page with any additional concerns. Ivan Melgar DNP Director, Palliative Medicine Admission and Anticipated Discharge Date Admission Date: August 11, 2024 Subjective more dyspnea today needs to be more upright in bed trouble w/pills, using applesauce and a drink to help get them down still constipated but feels like she wants to have BM, says she feels like she is trying to bear down but nothing comes out tired and napping more lasix tolerated with midodrine, had inc urine output but still increasing dyspnea Kavin had to go to [facility] to deal with a banking security breach, he should be back late afternoon Review of Systems Review of Systems: All systems reviewed & are unremarkable except as noted in Subjective Physical Exam Physical Exam: Frail, cachectic elderly female near upright/90 degree in bed chronically ill appearing, bitemp wasting noted, tired and fatigued very pale, dry chapped lips resp effort increased with use of accessory muscles + conversational dyspnea diminished breath sounds, +crackles ilat s1s2 abd soft, non tender Gen weakness BLE wound dressing intact skin dry, flaking at times Results & Data Vital Signs (Past 12 Hours) Vital Signs Temp Pulse Resp BP Pulse Ox O2 Del Method O2 Flow Rate 08/14/24 08:04 36.4 C L 94 H 16 103/71 95 Nasal Cannula 2 08/14/24 03:11 36.6 C 93 H 17 86/58 L 96 Nasal Cannula 08/13/24 23:27 36.9 C 73 18 95/71 L 96 Nasal Cannula PG Care Time/CCT Total # of Minutes Spent Total Time Spent with Patient: Total time spent is greater than 50% in coordination of care (as documented) at patient's floor/unit and/or counseling patient: I spent 105 minutes overall addressing this case: 10 min in medical data review/discussion with referring provider(s) and/or preparation for the visit 15 min in direct interaction with the patient/exam 60 min in Advance Care Planning/Goals of Care discussions as detailed above in note (must be >16min) 10 min in subsequent review and synthesis of assessment and plan 10 min communicating with other providers regarding the patient's case: primary team Advanced Care Planning 91847 Advanced Care Planning 30 Min 20244 Advanced Care Planning Additional 30 Min [place] [address] SUB INP/OBS CARE 3/50MIN (25 - SIGNIFICANT, SEPARATELY IDENTIFIABLE ) Patient Type Established Medical Decision Making High Complexity Diagnoses Dyspnea and respiratory abnormalities R06.00; R06.89 Weakness generalized R53.1 Failure to thrive in adult R62.7 Advanced care planning/counseling discussion Z71.89 Persistent wound pain R52 Palliative care by specialist Z51.5 Takotsubo cardiomyopathy I51.81 AML (acute myelogenous leukemia) C92.00 Additional Codes Advanced Care Planning - 82182 Advanced Care Planning 30 Min: 75389 Advanced Care Planning 30 Min ([id number]) Advanced Care Planning - 75020 Advanced Care Planning Additional 30 Min: 67980 Advanced Care Planning Additional 30 Min ([id number]) Time Spent (min) 105 Comment HIGH MDM
--- NOTE | 2024-08-14 11:49 | Hospitalist Progress Note ---
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 Possible Sepsis Chronic lower extremity wounds Possible acute gastroenteritis Pt presenting with progressive weakness, hypotension and slight leukocytosis She notes persistent frequent bowel movements and notes episodes of N/V Lactate elevated at 2.7, normalized after IV fluids Recently treated for lower extremity cellulitis but lower extremities are not concerning for infection on exam. Chronic wounds, wounds noted on arms as well Bilateral lower extremity MRIs completed during the last admission Wound cultures from lower extremities and arms pending C diff and stool cx pending Blood Cx x2 sets pending CT abd/pelvis ordered and noting colitis, femur fracture. GI and orthopedics consulted. Was initially on IV cefepime and Linezolid Infectious Disease was consulted, recommended /stated the following: -switch Linezolid to Vancomycin -treat with abx for 48hrs and then monitor off abx- abx discontinued on 08/14/24 Palliative Care also consulted, appreciate further recs Continue to monitor Hypotension Chronic issue for her AM orthostatic vitals as able On gentle IV fluids On midodrine 2,5mg TID, can increase dose as needed consider an adrenal cause, no noted recent use of chronic steroids Holding home diuretics Continue to monitor R Femur fracture Noted on CT abd/pelvis Ortho consulted Colitis GI consulted, appreciate recs Bilateral lower extremity edema Possibly from medications, DVT and malnutrition and mitral prolapse Compression stockings recommended Diuretics were discontinued secondary to hypotension Monitor Abnormal EKG Trop elevated at 51 once more before downtrending Echo from 07/29 reviewed Will follow repeat EKG Refractory AML and leukemia cutis Currently chemotherapy on hold for lower extremity wounds and overall general condition AM Peripheral smear ordered and pending Follow-up with heme-onc Chronic DVT and superficial thrombus On Eliquis History of mitral valve prolapse History of Takotsubo cardiomyopathy Echo done on 07/12/2024 EF 60 to 65% Depression General Anxiety disorder Will hold and BuSpar while on Zyvox Hypothyroidism On Synthyroid Chronic pain in right lower extremity On Percocet as needed at home Diet:regular, easy to chew DVT prophylaxis: On Eliquis Dispo: PT/OT ordered, back to [facility] once medically stable Admission and Anticipated Discharge Date Admission Date: August 11, 2024 Subjective patient tearful today Nursing staff trying to move her in the bed at the time of exam Review of Systems Review of Systems: All systems reviewed & are unremarkable except as noted in Subjective Physical Exam Physical Exam: General: Alert, oriented. appears tired Psych: sad mood and affect Neuro: difficulty with movements in the bed HEENT: NC/AT Resp: no increased effort of breathing CV: RRR Results & Data Results & Data Vital Signs (Past 12 Hours) Vital Signs Temp Pulse Resp BP Pulse Ox O2 Del Method O2 Flow Rate 08/14/24 11:07 36.4 C L 93 H 16 108/68 94 Nasal Cannula 2 08/14/24 08:04 36.4 C L 94 H 16 103/71 95 Nasal Cannula 2 08/14/24 03:11 36.6 C 93 H 17 86/58 L 96 Nasal Cannula
--- NOTE | 2024-08-14 14:31 | Pharmacy Report ---
Pharmacy PK ABX Note - Date of Service August 14, 2024 - Assessment and Plan Assessment 69 year old F receiving empiric vancomycin and cefepime for treatment of possible cellulitis (wounds on arms/legs) w/ recent hospitalization for sepsis secondary to LLE cellulitis. Recent antibiotics include linezolid, daptomycin, and meropenem. Pertinent microbiologic data includes: blood cultures x 2 (no growth at 48 hours), left arm culture, left leg, and right leg cultures show no growth. ID consulted and recommending to monitor patient off antibiotics if blood cultures negative at 48 hours. Discussed with hospitalist, plan is to continue antibiotics at this time. Palliative care consulted for advanced care planning/goals of care discussion. Day # 3 of antimicrobial therapy. Plan Vancomycin * Current regimen: 750 mg IV every 12 hours * Random level obtained 08/14/24 resulted as 19.6 mcg/mL. This is predicted to achieve target AUC/VALERIO of 400-600 mg/L.hr * Predicted AUC at steady state: 547 mg/L.hr * Continue 750 mg IV every 12 hours * Will repeat level in the next 48-72 hours if therapy is continued and/or change in patient clinical status Cefepime * 2 g IV q12h - appropriately dosed for indication/renal function Pharmacy will continue to follow and will adjust dose/frequency as necessary. Thank you. Pharmacy has transitioned to AUC monitoring for vancomycin. AUC/AVLERIO is the preferred PK/PD target and is associated with decreased risk of nephrotoxicity compared to traditional trough targets.
[2024-08-14] MEDS ORDERED: HALOPERIDOL ORAL SOLN 2 MG/ML PO PRN (20:38)
[2024-08-14] MEDS ORDERED: LORazepam 2 MG/1 ML VIAL IV PRN (20:51)
--- NOTE | 2024-08-14 21:33 | Palliative Care Progress Note ---
Date of Service August 14, 2024 Assessment & Plan (1) Dyspnea and respiratory abnormalities: Plan: progressively worsening intol of high dose lasix d/t hypotension progressive weakness, anorexia, swallowing troubles (2) Need for comfort care: Plan: orders written (3) Counseling regarding end of life decision making: Plan: 30 min telemed ACP for EOL held with pt and Her acute and persisting decline was reviewed in details, my worries about the implications of this decline were further discussed. I advised them I believe she is acutely worsening and it is time to move to INHALATION THERAPY AIDE. We will not be able to "fix" all of the problems bernice given hypotension, worsening weakness, malnutrition, anorexia, swallowing issues, declining PS and rising oxygen demands and worsening dyspnea. Codi and Kavin in agreement and desire a move to INHALATION THERAPY AIDE Orders formally written A private room was requested Kavin and Codi are updating some family and asked me to reach out to Jessica, Codi's long time best friend who has a clinical background and will likely want some additional medical info. I called Jessica at the provided number [phone] and it went to [facility], [facility] requesting call back. I updated night doc, Dr Dooley I updated nursing I messaged primary team Dr Ochoa for AM FYI (4) Advanced care planning/counseling discussion: (5) Palliative care by specialist: (6) Weakness generalized: (7) Failure to thrive in adult: (8) Fracture of greater trochanter of right femur: (9) Persistent wound pain: Plan As outlined above Thank you for allowing us to participate in the ongoing care of this patient. Please page with any additional concerns. Ivan Melgar DNP Director, Palliative Medicine Admission and Anticipated Discharge Date Admission Date: August 11, 2024 Subjective multiple contacts throughout the evening with changes in patient condition - inc oxygen needs and dyspnea, inc dusky skin changes, worsening anorexia, fatigue and swallowing struggles, progressing weakness and intermittent fatigue. Codi and I had a lengthy discussion earlier this afternoon re my worries the above progression may occur sooner rather than later. please see my note from earlier today for those details. nursing is concerned pt has not transitioned to INHALATION THERAPY AIDE formally and is in a state of decline. they advise has not yet been updated therefore, i called and spoke with him at length,providing the above update and a summary of my visit and conversation with Codi earlier today while he was in [facility]. elected to come to hospital and be at pt side.We agreed to a telemed visit when he arrives to discuss everything together. Review of Systems Review of Systems: All systems reviewed & are unremarkable except as noted in Subjective Physical Exam Physical Exam: TELEMED exam: pt is upright in bed, inc dyspnea and use of accessory muscles, she cannot speak in full sentences and has some trouble focusing at times, sometimes a bit short with if he did not respond as fast as she expected (he has a hearing deficit which is contributing a bit to this delay) She is pale and distressed appearing. She has inc WOB. There is an occ cough/dry She is able to follow some simple commands but gen weakness is noted color is pale Results & Data Vital Signs (Past 12 Hours) Vital Signs Temp Pulse Pulse Resp BP Pulse Ox O2 Del Method 08/14/24 16:10 36.4 C L 83 16 85/66 L 92 Nasal Cannula 08/14/24 16:00 82 08/14/24 11:07 36.4 C L 93 H 16 108/68 94 Nasal Cannula O2 Flow Rate 08/14/24 16:10 4 08/14/24 16:00 08/14/24 11:07 2 Laboratory Results 08/14/24 08/13/24 08/12/24 Range/Units 04:39 07:28 21:40 WBC 9.71 8.18 (4.8-10.8) K/ul RBC 2.62 L 2.41 L (4.20-5.40) M/uL Hgb 9.5 L 8.9 L (12.0-16.0) g/dl Hct 28.5 L 26.4 L (37.0-47.0) % MCV 108.8 H 109.5 H (80.0-100.0) fL MCH 36.3 H 36.9 H (25.0-34.0) pg MCHC 33.3 33.7 (32.0-36.0) g/dL RDW Std Deviation 52.2 H 51.1 H (36.4-46.3) fL RDW Coeff of Selam 13.1 12.8 (11.5-14.5) % Plt Count 47 L 60 L (130-400) K/uL MPV 11.6 11.4 (9.4-12.4) fL Immature Gran % (Auto) 0.5 0.4 % Neut % (Auto) 85.4 81.0 % Lymph % (Auto) 7.2 10.5 % Stark % (Auto) 3.0 4.5 % Eos % (Auto) 3.6 3.4 % Baso % (Auto) 0.3 0.2 % Neut # (Auto) 8.29 H 6.62 H (1.40-6.50) K/uL Lymph # (Auto) 0.70 L 0.86 L (1.20-3.40) K/uL Stark # (Auto) 0.29 0.37 (0.11-0.59) K/uL Eos # (Auto) 0.35 0.28 (0.00-0.50) K/uL Baso # (Auto) 0.03 0.02 (0.00-0.20) K/uL Immature Gran # (Auto) 0.05 0.03 (0.01-0.20) K/uL Absolute Nucleated RBC (0.00-0.12) K/uL Nucleated RBC % (auto) % Peripher Smr Path Cons PT (9.0-12.0) Seconds INR (0.9-1.1) APTT (21-31) Seconds PTT Ratio VBG pH (7.36-7.41) VBG pCO2 (38-50) mmHg VBG pO2 mmHg VBG HCO3 mmol/L VBG O2 Saturation % VBG Base Excess mEq/L Sodium 140 140 (136-145) mmol/L Potassium 3.8 3.7 (3.5-5.1) mmol/L Chloride 109 H 110 H (98-107) mmol/L Carbon Dioxide 27 28 (21-32) mmol/L Anion Gap 4 2 L (3-11) BUN 15 14 (6-23) mg/dl Creatinine 0.73 0.72 (0.6-1.2) mg/dl Est Cr Clr Drug Dosing 69.0 70.0 ml/min eGFR 89.52 91.02 BUN/Creatinine Ratio 20.5 H 19.4 (10-20) Glucose 88 73 (70-99(Fasting)) mg/dl Lactate (0.4-2.0) mmol/L Calcium 8.0 L 7.7 L (8.6-10.3) mg/dl Phosphorus 2.1 L 2.5 (2.5-4.9) mg/dl Magnesium 2.0 1.6 L (1.7-2.4) mg/dl Total Bilirubin (0.2-1.0) mg/dl AST (13-39) U/L ALT (7-52) U/L Alkaline Phosphatase (34-104) U/L Troponin I High Sens (0-14) pg/ml B-Natriuretic Peptide (0-100) pg/ml Total Protein (6.0-8.3) gm/dl Albumin (3.4-5.0) gm/dl Globulin (2.5-4.0) gm/dl Albumin/Globulin Ratio (0.9-2) Procalcitonin (0-0.5) ng/ml Urine Color Urine Appearance (Clear) Urine pH (4.5-7.5) Ur Specific [place] (1.000-1.030) Urine Protein (Negative) Urine Glucose (UA) (Negative) Urine Ketones (Negative) Urine Blood (Negative) Urine Nitrite (Negative) Urine Bilirubin (Negative) Urine Urobilinogen (Negative) Ur Leukocyte Esterase (Negative) Urine WBC (Auto) (0-5) /hpf Urine RBC (Auto) (0-2) /hpf U Hyaline Cast (Auto) (0-2) /lpf U Epithel Cells (Auto) (0-2) /hpf Urine Bacteria (Auto) (None Seen) Calcium Oxalate Crystal (None Prsent) Nasal Screen MRSA (PCR) (Negative) Stl C. cayetanensis PCR Not Detected (NotDetected) Stool Rotavirus A PCR Not Detected (NotDetected) Stl Adenov F 40/41 PCR Not Detected (NotDetected) Stool Astrovirus (PCR) Not Detected (NotDetected) Stool Campylobacter PCR Not Detected (NotDetected) Stl C. diff Tox B Gene Negative Cdiff Gene (Neg) Stool Cryptosporidium PCR Not Detected (NotDetected) Stl E.coli Shiga Tox PCR Not Detected (NotDetected) Stl Enterotoxigenic E PCR Not Detected (NotDetected) Stool EPEC (PCR) Not Detected (NotDetected) Stool EAEC (PCR) Not Detected (NotDetected) Stl E. histolytica PCR Not Detected (NotDetected) Stool Giardia Lamblia PCR Not Detected (NotDetected) Stool Salmonella PCR Not Detected (NotDetected) Stool Sapovirus (PCR) Not Detected (NotDetected) Stl P. shigelloides PCR Not Detected (NotDetected) Stl Shigella/EIEC PCR Not Detected (NotDetected) St Y.enterocolitica PCR Not Detected (NotDetected) Stool Vibrio (PCR) Not Detected (NotDetected) Stl Vibrio cholerae PCR Not Detected (NotDetected) Stl Norovirus GI/GII PCR Not Detected (NotDetected) Random Vancomycin 19.6 (10-20) mcg/ml Adenovirus (PCR) (NotDetected) B. pertussis DNA (PCR) (NotDetected) B.parapertussis DNA PCR (NotDetected) C. pneumoniae DNA (PCR) (NotDetected) Coronavirus OC43 (PCR) (NotDetected) Coronavirus HKU1 (PCR) (NotDetected) Coronavirus 229E (PCR) (NotDetected) SARS-CoV-2 (PCR) (NotDetected) Coronavirus NL63 (PCR) (NotDetected) Human Metapneumovir PCR (NotDetected) Influenza Type A (PCR) (NotDetected) Influenza Type B (PCR) (NotDetected) M. pneumoniae (PCR) (NotDetected) Parainfluenza 1 (PCR) (NotDetected) Parainfluenza 2 (PCR) (NotDetected) Parainfluenza 3 (PCR) (NotDetected) Parainfluenza 4 (PCR) (NotDetected) RSV (PCR) (NotDetected) Entero/Rhino (PCR) (NotDetected) 08/12/24 08/12/24 08/12/24 Range/Units 16:56 11:13 07:08 WBC (4.8-10.8) K/ul RBC (4.20-5.40) M/uL Hgb (12.0-16.0) g/dl Hct (37.0-47.0) % MCV (80.0-100.0) fL MCH (25.0-34.0) pg MCHC (32.0-36.0) g/dL RDW Std Deviation (36.4-46.3) fL RDW Coeff of Selam (11.5-14.5) % Plt Count (130-400) K/uL MPV (9.4-12.4) fL Immature Gran % (Auto) % Neut % (Auto) % Lymph % (Auto) % Stark % (Auto) % Eos % (Auto) % Baso % (Auto) % Neut # (Auto) (1.40-6.50) K/uL Lymph # (Auto) (1.20-3.40) K/uL Stark # (Auto) (0.11-0.59) K/uL Eos # (Auto) (0.00-0.50) K/uL Baso # (Auto) (0.00-0.20) K/uL Immature Gran # (Auto) (0.01-0.20) K/uL Absolute Nucleated RBC (0.00-0.12) K/uL Nucleated RBC % (auto) % Peripher Smr Path Cons PT (9.0-12.0) Seconds INR (0.9-1.1) APTT (21-31) Seconds PTT Ratio VBG pH (7.36-7.41) VBG pCO2 (38-50) mmHg VBG pO2 mmHg VBG HCO3 mmol/L VBG O2 Saturation % VBG Base Excess mEq/L Sodium (136-145) mmol/L Potassium (3.5-5.1) mmol/L Chloride (98-107) mmol/L Carbon Dioxide (21-32) mmol/L Anion Gap (3-11) BUN (6-23) mg/dl Creatinine (0.6-1.2) mg/dl Est Cr Clr Drug Dosing ml/min eGFR BUN/Creatinine Ratio (10-20) Glucose (70-99(Fasting)) mg/dl Lactate 1.2 (0.4-2.0) mmol/L Calcium (8.6-10.3) mg/dl Phosphorus (2.5-4.9) mg/dl Magnesium (1.7-2.4) mg/dl Total Bilirubin (0.2-1.0) mg/dl AST (13-39) U/L ALT (7-52) U/L Alkaline Phosphatase (34-104) U/L Troponin I High Sens 43.1 H 44.7 H (0-14) pg/ml B-Natriuretic Peptide (0-100) pg/ml Total Protein (6.0-8.3) gm/dl Albumin (3.4-5.0) gm/dl Globulin (2.5-4.0) gm/dl Albumin/Globulin Ratio (0.9-2) Procalcitonin (0-0.5) ng/ml Urine Color Urine Appearance (Clear) Urine pH (4.5-7.5) Ur Specific [place] (1.000-1.030) Urine Protein (Negative) Urine Glucose (UA) (Negative) Urine Ketones (Negative) Urine Blood (Negative) Urine Nitrite (Negative) Urine Bilirubin (Negative) Urine Urobilinogen (Negative) Ur Leukocyte Esterase (Negative) Urine WBC (Auto) (0-5) /hpf Urine RBC (Auto) (0-2) /hpf U Hyaline Cast (Auto) (0-2) /lpf U Epithel Cells (Auto) (0-2) /hpf Urine Bacteria (Auto) (None Seen) Calcium Oxalate Crystal (None Prsent) Nasal Screen MRSA (PCR) (Negative) Stl C. cayetanensis PCR (NotDetected) Stool Rotavirus A PCR (NotDetected) Stl Adenov F 40/41 PCR (NotDetected) Stool Astrovirus (PCR) (NotDetected) Stool Campylobacter PCR (NotDetected) Stl C. diff Tox B Gene (Neg) Stool Cryptosporidium PCR (NotDetected) Stl E.coli Shiga Tox PCR (NotDetected) Stl Enterotoxigenic E PCR (NotDetected) Stool EPEC (PCR) (NotDetected) Stool EAEC (PCR) (NotDetected) Stl E. histolytica PCR (NotDetected) Stool Giardia Lamblia PCR (NotDetected) Stool Salmonella PCR (NotDetected) Stool Sapovirus (PCR) (NotDetected) Stl P. shigelloides PCR (NotDetected) Stl Shigella/EIEC PCR (NotDetected) St Y.enterocolitica PCR (NotDetected) Stool Vibrio (PCR) (NotDetected) Stl Vibrio cholerae PCR (NotDetected) Stl Norovirus GI/GII PCR (NotDetected) Random Vancomycin (10-20) mcg/ml Adenovirus (PCR) (NotDetected) B. pertussis DNA (PCR) (NotDetected) B.parapertussis DNA PCR (NotDetected) C. pneumoniae DNA (PCR) (NotDetected) Coronavirus OC43 (PCR) (NotDetected) Coronavirus HKU1 (PCR) (NotDetected) Coronavirus 229E (PCR) (NotDetected) SARS-CoV-2 (PCR) (NotDetected) Coronavirus NL63 (PCR) (NotDetected) Human Metapneumovir PCR (NotDetected) Influenza Type A (PCR) (NotDetected) Influenza Type B (PCR) (NotDetected) M. pneumoniae (PCR) (NotDetected) Parainfluenza 1 (PCR) (NotDetected) Parainfluenza 2 (PCR) (NotDetected) Parainfluenza 3 (PCR) (NotDetected) Parainfluenza 4 (PCR) (NotDetected) RSV (PCR) (NotDetected) Entero/Rhino (PCR) (NotDetected) 08/12/24 08/12/24 08/11/24 Range/Units 05:41 00:50 Unknown WBC 8.39 (4.8-10.8) K/ul RBC 2.47 L (4.20-5.40) M/uL Hgb 9.0 L (12.0-16.0) g/dl Hct 27.0 L (37.0-47.0) % MCV 109.3 H (80.0-100.0) fL MCH 36.4 H (25.0-34.0) pg MCHC 33.3 (32.0-36.0) g/dL RDW Std Deviation 52.7 H (36.4-46.3) fL RDW Coeff of Selam 13.1 (11.5-14.5) % Plt Count 73 L (130-400) K/uL MPV 10.8 (9.4-12.4) fL Immature Gran % (Auto) 0.6 % Neut % (Auto) 84.0 % Lymph % (Auto) 9.9 % Stark % (Auto) 3.3 % Eos % (Auto) 2.1 % Baso % (Auto) 0.1 % Neut # (Auto) 7.04 H (1.40-6.50) K/uL Lymph # (Auto) 0.83 L (1.20-3.40) K/uL Stark # (Auto) 0.28 (0.11-0.59) K/uL Eos # (Auto) 0.18 (0.00-0.50) K/uL Baso # (Auto) 0.01 (0.00-0.20) K/uL Immature Gran # (Auto) 0.05 (0.01-0.20) K/uL Absolute Nucleated RBC (0.00-0.12) K/uL Nucleated RBC % (auto) % Peripher Smr Path Cons PT (9.0-12.0) Seconds INR (0.9-1.1) APTT (21-31) Seconds PTT Ratio VBG pH (7.36-7.41) VBG pCO2 (38-50) mmHg VBG pO2 mmHg VBG HCO3 mmol/L VBG O2 Saturation % VBG Base Excess mEq/L Sodium 140 (136-145) mmol/L Potassium 3.4 L (3.5-5.1) mmol/L Chloride 108 H (98-107) mmol/L Carbon Dioxide 29 (21-32) mmol/L Anion Gap 3 (3-11) BUN 17 (6-23) mg/dl Creatinine 0.78 (0.6-1.2) mg/dl Est Cr Clr Drug Dosing 64.6 ml/min eGFR 82.68 BUN/Creatinine Ratio 21.8 H (10-20) Glucose 85 (70-99(Fasting)) mg/dl Lactate (0.4-2.0) mmol/L Calcium 7.5 L (8.6-10.3) mg/dl Phosphorus (2.5-4.9) mg/dl Magnesium 1.7 (1.7-2.4) mg/dl Total Bilirubin (0.2-1.0) mg/dl AST (13-39) U/L ALT (7-52) U/L Alkaline Phosphatase (34-104) U/L Troponin I High Sens 51.1 H* D (0-14) pg/ml B-Natriuretic Peptide (0-100) pg/ml Total Protein (6.0-8.3) gm/dl Albumin (3.4-5.0) gm/dl Globulin (2.5-4.0) gm/dl Albumin/Globulin Ratio (0.9-2) Procalcitonin (0-0.5) ng/ml Urine Color Dark Yellow Urine Appearance Clear (Clear) Urine pH 5.5 (4.5-7.5) Ur Specific [place] 1.029 (1.000-1.030) Urine Protein Negative (Negative) Urine Glucose (UA) Negative (Negative) Urine Ketones Negative (Negative) Urine Blood Trace H (Negative) Urine Nitrite Negative (Negative) Urine Bilirubin Negative (Negative) Urine Urobilinogen Negative (Negative) Ur Leukocyte Esterase Trace H (Negative) Urine WBC (Auto) 0-5 (0-5) /hpf Urine RBC (Auto) 6-10 H (0-2) /hpf U Hyaline Cast (Auto) 0-2 (0-2) /lpf U Epithel Cells (Auto) 0-2 (0-2) /hpf Urine Bacteria (Auto) None Seen (None Seen) Calcium Oxalate Crystal Present A (None Prsent) Nasal Screen MRSA (PCR) Negative (Negative) Stl C. cayetanensis PCR (NotDetected) Stool Rotavirus A PCR (NotDetected) Stl Adenov F 40/41 PCR (NotDetected) Stool Astrovirus (PCR) (NotDetected) Stool Campylobacter PCR (NotDetected) Stl C. diff Tox B Gene (Neg) Stool Cryptosporidium PCR (NotDetected) Stl E.coli Shiga Tox PCR (NotDetected) Stl Enterotoxigenic E PCR (NotDetected) Stool EPEC (PCR) (NotDetected) Stool EAEC (PCR) (NotDetected) Stl E. histolytica PCR (NotDetected) Stool Giardia Lamblia PCR (NotDetected) Stool Salmonella PCR (NotDetected) Stool Sapovirus (PCR) (NotDetected) Stl P. shigelloides PCR (NotDetected) Stl Shigella/EIEC PCR (NotDetected) St Y.enterocolitica PCR (NotDetected) Stool Vibrio (PCR) (NotDetected) Stl Vibrio cholerae PCR (NotDetected) Stl Norovirus GI/GII PCR (NotDetected) Random Vancomycin (10-20) mcg/ml Adenovirus (PCR) (NotDetected) B. pertussis DNA (PCR) (NotDetected) B.parapertussis DNA PCR (NotDetected) C. pneumoniae DNA (PCR) (NotDetected) Coronavirus OC43 (PCR) (NotDetected) Coronavirus HKU1 (PCR) (NotDetected) Coronavirus 229E (PCR) (NotDetected) SARS-CoV-2 (PCR) (NotDetected) Coronavirus NL63 (PCR) (NotDetected) Human Metapneumovir PCR (NotDetected) Influenza Type A (PCR) (NotDetected) Influenza Type B (PCR) (NotDetected) M. pneumoniae (PCR) (NotDetected) Parainfluenza 1 (PCR) (NotDetected) Parainfluenza 2 (PCR) (NotDetected) Parainfluenza 3 (PCR) (NotDetected) Parainfluenza 4 (PCR) (NotDetected) RSV (PCR) (NotDetected) Entero/Rhino (PCR) (NotDetected) 08/11/24 08/11/24 08/11/24 Range/Units 18:42 17:43 16:00 WBC 11.04 H (4.8-10.8) K/ul RBC 2.70 L (4.20-5.40) M/uL Hgb 10.0 L (12.0-16.0) g/dl Hct 29.6 L (37.0-47.0) % MCV 109.6 H (80.0-100.0) fL MCH 37.0 H (25.0-34.0) pg MCHC 33.8 (32.0-36.0) g/dL RDW Std Deviation 53.1 H (36.4-46.3) fL RDW Coeff of Selam 13.2 (11.5-14.5) % Plt Count 101 L (130-400) K/uL MPV 10.8 (9.4-12.4) fL Immature Gran % (Auto) 0.7 % Neut % (Auto) 88.2 % Lymph % (Auto) 6.8 % Stark % (Auto) 2.6 % Eos % (Auto) 1.4 % Baso % (Auto) 0.3 % Neut # (Auto) 9.74 H (1.40-6.50) K/uL Lymph # (Auto) 0.75 L (1.20-3.40) K/uL Stark # (Auto) 0.29 (0.11-0.59) K/uL Eos # (Auto) 0.15 (0.00-0.50) K/uL Baso # (Auto) 0.03 (0.00-0.20) K/uL Immature Gran # (Auto) 0.08 (0.01-0.20) K/uL Absolute Nucleated RBC 0.02 (0.00-0.12) K/uL Nucleated RBC % (auto) 0.2 % Peripher Smr Path Cons PT 11.9 (9.0-12.0) Seconds INR 1.1 (0.9-1.1) APTT 30 (21-31) Seconds PTT Ratio 1.1 VBG pH 7.37 (7.36-7.41) VBG pCO2 49 (38-50) mmHg VBG pO2 35 mmHg VBG HCO3 28 mmol/L VBG O2 Saturation < 60.0 % VBG Base Excess 2.4 mEq/L Sodium 140 (136-145) mmol/L Potassium 3.6 (3.5-5.1) mmol/L Chloride 106 (98-107) mmol/L Carbon Dioxide 29 (21-32) mmol/L Anion Gap 5 (3-11) BUN 18 (6-23) mg/dl Creatinine 0.87 (0.6-1.2) mg/dl Est Cr Clr Drug Dosing 57.9 ml/min eGFR 72.53 BUN/Creatinine Ratio 20.7 H (10-20) Glucose 113 H (70-99(Fasting)) mg/dl Lactate 2.7 H* 2.7 H* (0.4-2.0) mmol/L Calcium 8.0 L (8.6-10.3) mg/dl Phosphorus (2.5-4.9) mg/dl Magnesium 1.8 (1.7-2.4) mg/dl Total Bilirubin 0.5 (0.2-1.0) mg/dl AST 28 (13-39) U/L ALT 18 (7-52) U/L Alkaline Phosphatase 294 H (34-104) U/L Troponin I High Sens 39.9 H 41.7 H (0-14) pg/ml B-Natriuretic Peptide 562 H (0-100) pg/ml Total Protein 4.4 L (6.0-8.3) gm/dl Albumin 2.1 L (3.4-5.0) gm/dl Globulin 2.3 L (2.5-4.0) gm/dl Albumin/Globulin Ratio 0.9 (0.9-2) Procalcitonin 0.38 (0-0.5) ng/ml Urine Color Urine Appearance (Clear) Urine pH (4.5-7.5) Ur Specific [place] (1.000-1.030) Urine Protein (Negative) Urine Glucose (UA) (Negative) Urine Ketones (Negative) Urine Blood (Negative) Urine Nitrite (Negative) Urine Bilirubin (Negative) Urine Urobilinogen (Negative) Ur Leukocyte Esterase (Negative) Urine WBC (Auto) (0-5) /hpf Urine RBC (Auto) (0-2) /hpf U Hyaline Cast (Auto) (0-2) /lpf U Epithel Cells (Auto) (0-2) /hpf Urine Bacteria (Auto) (None Seen) Calcium Oxalate Crystal (None Prsent) Nasal Screen MRSA (PCR) (Negative) Stl C. cayetanensis PCR (NotDetected) Stool Rotavirus A PCR (NotDetected) Stl Adenov F 40/41 PCR (NotDetected) Stool Astrovirus (PCR) (NotDetected) Stool Campylobacter PCR (NotDetected) Stl C. diff Tox B Gene (Neg) Stool Cryptosporidium PCR (NotDetected) Stl E.coli Shiga Tox PCR (NotDetected) Stl Enterotoxigenic E PCR (NotDetected) Stool EPEC (PCR) (NotDetected) Stool EAEC (PCR) (NotDetected) Stl E. histolytica PCR (NotDetected) Stool Giardia Lamblia PCR (NotDetected) Stool Salmonella PCR (NotDetected) Stool Sapovirus (PCR) (NotDetected) Stl P. shigelloides PCR (NotDetected) Stl Shigella/EIEC PCR (NotDetected) St Y.enterocolitica PCR (NotDetected) Stool Vibrio (PCR) (NotDetected) Stl Vibrio cholerae PCR (NotDetected) Stl Norovirus GI/GII PCR (NotDetected) Random Vancomycin (10-20) mcg/ml Adenovirus (PCR) (NotDetected) B. pertussis DNA (PCR) (NotDetected) B.parapertussis DNA PCR (NotDetected) C. pneumoniae DNA (PCR) (NotDetected) Coronavirus OC43 (PCR) (NotDetected) Coronavirus HKU1 (PCR) (NotDetected) Coronavirus 229E (PCR) (NotDetected) SARS-CoV-2 (PCR) (NotDetected) Coronavirus NL63 (PCR) (NotDetected) Human Metapneumovir PCR (NotDetected) Influenza Type A (PCR) (NotDetected) Influenza Type B (PCR) (NotDetected) M. pneumoniae (PCR) (NotDetected) Parainfluenza 1 (PCR) (NotDetected) Parainfluenza 2 (PCR) (NotDetected) Parainfluenza 3 (PCR) (NotDetected) Parainfluenza 4 (PCR) (NotDetected) RSV (PCR) (NotDetected) Entero/Rhino (PCR) (NotDetected) 08/11/24 Range/Units 15:32 WBC (4.8-10.8) K/ul RBC (4.20-5.40) M/uL Hgb (12.0-16.0) g/dl Hct (37.0-47.0) % MCV (80.0-100.0) fL MCH (25.0-34.0) pg MCHC (32.0-36.0) g/dL RDW Std Deviation (36.4-46.3) fL RDW Coeff of Selam (11.5-14.5) % Plt Count (130-400) K/uL MPV (9.4-12.4) fL Immature Gran % (Auto) % Neut % (Auto) % Lymph % (Auto) % Stark % (Auto) % Eos % (Auto) % Baso % (Auto) % Neut # (Auto) (1.40-6.50) K/uL Lymph # (Auto) (1.20-3.40) K/uL Stark # (Auto) (0.11-0.59) K/uL Eos # (Auto) (0.00-0.50) K/uL Baso # (Auto) (0.00-0.20) K/uL Immature Gran # (Auto) (0.01-0.20) K/uL Absolute Nucleated RBC (0.00-0.12) K/uL Nucleated RBC % (auto) % Peripher Smr Path Cons PT (9.0-12.0) Seconds INR (0.9-1.1) APTT (21-31) Seconds PTT Ratio VBG pH (7.36-7.41) VBG pCO2 (38-50) mmHg VBG pO2 mmHg VBG HCO3 mmol/L VBG O2 Saturation % VBG Base Excess mEq/L Sodium (136-145) mmol/L Potassium (3.5-5.1) mmol/L Chloride (98-107) mmol/L Carbon Dioxide (21-32) mmol/L Anion Gap (3-11) BUN (6-23) mg/dl Creatinine (0.6-1.2) mg/dl Est Cr Clr Drug Dosing ml/min eGFR BUN/Creatinine Ratio (10-20) Glucose (70-99(Fasting)) mg/dl Lactate (0.4-2.0) mmol/L Calcium (8.6-10.3) mg/dl Phosphorus (2.5-4.9) mg/dl Magnesium (1.7-2.4) mg/dl Total Bilirubin (0.2-1.0) mg/dl AST (13-39) U/L ALT (7-52) U/L Alkaline Phosphatase (34-104) U/L Troponin I High Sens (0-14) pg/ml B-Natriuretic Peptide (0-100) pg/ml Total Protein (6.0-8.3) gm/dl Albumin (3.4-5.0) gm/dl Globulin (2.5-4.0) gm/dl Albumin/Globulin Ratio (0.9-2) Procalcitonin (0-0.5) ng/ml Urine Color Urine Appearance (Clear) Urine pH (4.5-7.5) Ur Specific [place] (1.000-1.030) Urine Protein (Negative) Urine Glucose (UA) (Negative) Urine Ketones (Negative) Urine Blood (Negative) Urine Nitrite (Negative) Urine Bilirubin (Negative) Urine Urobilinogen (Negative) Ur Leukocyte Esterase (Negative) Urine WBC (Auto) (0-5) /hpf Urine RBC (Auto) (0-2) /hpf U Hyaline Cast (Auto) (0-2) /lpf U Epithel Cells (Auto) (0-2) /hpf Urine Bacteria (Auto) (None Seen) Calcium Oxalate Crystal (None Prsent) Nasal Screen MRSA (PCR) (Negative) Stl C. cayetanensis PCR (NotDetected) Stool Rotavirus A PCR (NotDetected) Stl Adenov F 40/41 PCR (NotDetected) Stool Astrovirus (PCR) (NotDetected) Stool Campylobacter PCR (NotDetected) Stl C. diff Tox B Gene (Neg) Stool Cryptosporidium PCR (NotDetected) Stl E.coli Shiga Tox PCR (NotDetected) Stl Enterotoxigenic E PCR (NotDetected) Stool EPEC (PCR) (NotDetected) Stool EAEC (PCR) (NotDetected) Stl E. histolytica PCR (NotDetected) Stool Giardia Lamblia PCR (NotDetected) Stool Salmonella PCR (NotDetected) Stool Sapovirus (PCR) (NotDetected) Stl P. shigelloides PCR (NotDetected) Stl Shigella/EIEC PCR (NotDetected) St Y.enterocolitica PCR (NotDetected) Stool Vibrio (PCR) (NotDetected) Stl Vibrio cholerae PCR (NotDetected) Stl Norovirus GI/GII PCR (NotDetected) Random Vancomycin (10-20) mcg/ml Adenovirus (PCR) Not Detected (NotDetected) B. pertussis DNA (PCR) Not Detected (NotDetected) B.parapertussis DNA PCR Not Detected (NotDetected) C. pneumoniae DNA (PCR) Not Detected (NotDetected) Coronavirus OC43 (PCR) Not Detected (NotDetected) Coronavirus HKU1 (PCR) Not Detected (NotDetected) Coronavirus 229E (PCR) Not Detected (NotDetected) SARS-CoV-2 (PCR) Not Detected (NotDetected) Coronavirus NL63 (PCR) Not Detected (NotDetected) Human Metapneumovir PCR Not Detected (NotDetected) Influenza Type A (PCR) Not Detected (NotDetected) Influenza Type B (PCR) Not Detected (NotDetected) M. pneumoniae (PCR) Not Detected (NotDetected) Parainfluenza 1 (PCR) Not Detected (NotDetected) Parainfluenza 2 (PCR) Not Detected (NotDetected) Parainfluenza 3 (PCR) Not Detected (NotDetected) Parainfluenza 4 (PCR) Not Detected (NotDetected) RSV (PCR) Not Detected (NotDetected) Entero/Rhino (PCR) Not Detected (NotDetected) Diagnostic Findings Chest X-Ray 08/11/24 15:23 INDICATION: Cough. TECHNIQUE: Frontal radiograph of the chest. COMPARISON: 07/31/2024. FINDINGS: Cardiomegaly. Moderate pulmonary vascular congestion. Bilateral pleural effusions with atelectasis/airspace disease, slightly worsened from prior. No pneumothorax. No acute fracture. Right-sided chest port in similar position. IMPRESSION:Moderate pulmonary vascular congestion. Bilateral pleural effusions with atelectasis/airspace disease, slightly worsened from prior. Electronically signed by Garrison Hairston 08-11-2024 4:31 PM Abdomen/Pelvis CT 08/13/24 08:00 CT OF THE ABDOMEN AND PELVIS WITH CONTRAST CLINICAL HISTORY: Persistent diarrhea, nausea and vomiting. COMPARISON STUDY: Right upper quadrant ultrasound March 31, 2017. CTA of the abdomen and pelvis March 31, 2017. TECHNIQUE: Following IV administration of 94 mL of Optiray, axial images of the abdomen and pelvis were obtained from the lung bases to the proximal femurs. Images were reviewed in the axial, sagittal, and coronal planes. IV contrast was administered without complication. Automated exposure control was utilized for the study. A dose lowering technique was utilized adhering to the principles of ALARA. CT DOSE: 1168.12 mGy.cm FINDINGS: There are mild groundglass opacities within the right lung. Moderate to large bilateral pleural effusions are partially imaged. There is extensive body wall edema. No pneumatosis, free air or portal venous gas is present. There are no hepatic lesions. Liver surface is lobulated. There is no biliary or pancreatic ductal dilatation. A small amount of abdominal and pelvic ascites is present. Spleen, adrenal glands, kidneys and pancreas are unremarkable. There is no hydronephrosis. There is apparent fold thickening within the stomach. Prominent mucosal enhancement of the stomach is also noted. Findings suggest adenomyomatosis of the gallbladder fundus. There is no evidence for a bowel obstruction. There is a moderate amount of stool within the distal colon and rectum. Perirectal stranding is present. There is wall thickening of the colon and rectum. This is most pronounced within the ascending colon and distal rectum. No associated fluid collection is present. Calcified fibroids are incidentally noted. There is no abdominal or pelvic lymphadenopathy. Note is made of a comminuted moderately displaced fracture of the greater trochanter of the right femur. This was not evident on previous radiograph June 15, 2024. Sclerosis within the intertrochanteric portion of the right femur is present. Severe bilateral hip osteoarthritis is present. IMPRESSION: 1. Diffuse colorectal wall thickening. This represents a nonspecific proctocolitis. Moderate amount of stool within the distal colon and rectum. 2. No evidence for a bowel obstruction. 3. Evidence for volume overload with moderate to large bilateral pleural effusions, extensive body wall edema and a small amount of abdominal and pelvic ascites. 4. Moderately displaced, comminuted fracture of the greater trochanter of the right femur. This fracture is likely subacute. Sclerosis within the intertrochanteric portion of the femur raises the possibility of intertrocha nteric extension. 5. Gastric fold thickening with mucosal enhancement. The findings are nonspecific and could be due to underdistention however may represent gastritis. ACT 112: Negative or not required by law. Electronically signed by: Armando Horvath M.D. 08/13/2024 8:39 AM Venous Doppler Study 08/13/24 11:52 BILATERAL LOWER EXTREMITY VENOUS DOPPLER HISTORY: possible DVT noted on CT abd/pelvis, iliac, femora COMPARISON STUDY: 07/29/2024 FINDINGS: No evidence of occlusive DVT seen in either lower extremity. There is possible chronic nonocclusive thrombus or wall thickening at bilateral common femoral veins and saphenous veins. IMPRESSION: 1. No acute occlusive DVT seen at the lower extremities. 2. Possible chronic nonocclusive thrombus or wall thickening at bilateral common femoral veins and saphenous veins. ACT 112: Negative or not required by law. Electronically signed by: Kevin Chacon M.D. 08/13/2024 2:29 PM Hip/Pelvis X-Ray 08/13/24 14:23 EXAM: Radiographs of the Right Hip 3 Views INDICATION: Trochanteric fracture noted on CT. TECHNIQUE: Front view pelvis and AP and frog leg lateral views of the right hip. COMPARISON: 06/15/2024 FINDINGS: Limitations: None. Bones/joints: There is a 2.5 x 2.8 cm fragment from the right greater trochanter distracted cranially by 1.5 cm. Stable moderate to severe primary osteoarthritic change of each hip left greater than right. Stable mild sclerosis and flattening of the femoral heads suggestive of early/mild avascular necrosis. Soft tissues: No abnormality noted. No radiopaque foreign body noted. Calcified uterine fibroids noted. IMPRESSION: 1. Distracted fracture of the right greater trochanter new since 06/15/2024. 2. 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 ACT 112: Negative or not required by law. Electronically signed by Maryse Nicholas 08-13-2024 4:23 PM PG Care Time/CCT Total # of Minutes Spent Total Time Spent with Patient: Total time spent is greater than 50% in coordination of care (as documented) at patient's floor/unit and/or counseling patient: I spent 90 minutes overall addressing this case: 10 min in medical data review/discussion with referring provider(s) and/or preparation for the visit 15 min in direct interaction with the patient/exam 30 min in Advance Care Planning/Goals of Care discussions as detailed above in note (must be >16min) 15 min in subsequent review and synthesis of assessment and plan 20 min communicating with other providers regarding the patient's case: nursing, primary team, night doc Advanced Care Planning 40706 Advanced Care Planning 30 Min [place] [address] Prolonged Care-adt'l 30m (25 - SIGNIFICANT, SEPARATELY IDENTIFIABLE ) Patient Type Established Medical Decision Making High Complexity Diagnoses Dyspnea and respiratory abnormalities R06.00; R06.89 Need for comfort care Counseling regarding end of life decision making Z71.89 Advanced care planning/counseling discussion Z71.89 Palliative care by specialist Z51.5 Weakness generalized R53.1 Failure to thrive in adult R62.7 Fracture of greater trochanter of right femur S72.111A Persistent wound pain R52 Additional Codes Advanced Care Planning - 18395 Advanced Care Planning 30 Min: 47036 Advanced Care Planning 30 Min ([id number])
[2024-08-14] MEDS: LORazepam 2 MG/1 ML VIAL IV PRN (22:07)
[2024-08-14 22:31] VITALS: PULSE 84; RESP 20; TEMP 97.3; O2SAT 91
[2024-08-15] MEDS: HYDROmorphone INJ 0.5 MG/0.5 ML SYR IV PRN (11:42)
--- NOTE | 2024-08-15 11:44 | Hospitalist Progress Note ---
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 Patient with frequent conversations during this hospitalization with palliative care. She had a noted decline overnight on August 14, 2024 requiring urgent evaluation by palliative care. Patient and agreeable at that time to transitioning to comfort measures only. She was previously treated for the following: Possible Sepsis Chronic lower extremity wounds Possible acute gastroenteritis Pt presenting with progressive weakness, hypotension and slight leukocytosis She notes persistent frequent bowel movements and notes episodes of N/V Lactate elevated at 2.7, normalized after IV fluids Recently treated for lower extremity cellulitis but lower extremities are not concerning for infection on exam. Chronic wounds, wounds noted on arms as well Bilateral lower extremity MRIs completed during the last admission Wound cultures from lower extremities and arms pending C diff and stool cx pending Blood Cx x2 sets pending CT abd/pelvis ordered and noting colitis, femur fracture. GI and orthopedics consulted. Was initially on IV cefepime and Linezolid Infectious Disease was consulted, recommended /stated the following: -switch Linezolid to Vancomycin -treat with abx for 48hrs and then monitor off abx- abx discontinued on 08/14/24 Palliative Care also consulted, appreciate further recs Pt transitioned to LVN LPN on 08/15/24. Hypotension Chronic issue for her AM orthostatic vitals as able On gentle IV fluids On midodrine 2,5mg TID, can increase dose as needed consider an adrenal cause, no noted recent use of chronic steroids Holding home diuretics Pt transitioned to LVN LPN on 08/15/24. R Femur fracture Noted on CT abd/pelvis Ortho consulted Pt transitioned to LVN LPN on 08/15/24. Colitis GI consulted, appreciate recs Pt transitioned to LVN LPN on 08/15/24. Bilateral lower extremity edema Possibly from medications, DVT and malnutrition and mitral prolapse Compression stockings recommended Diuretics were discontinued secondary to hypotension Pt transitioned to LVN LPN on 08/15/24. Abnormal EKG Trop elevated at 51 once more before downtrending Echo from 07/29 reviewed Refractory AML and leukemia cutis Currently chemotherapy on hold for lower extremity wounds and overall general condition Peripheral smear noting no recurrence of AML Pt transitioned to LVN LPN on 08/15/24. Chronic DVT and superficial thrombus On Eliquis History of mitral valve prolapse History of Takotsubo cardiomyopathy Echo done on 07/12/2024 EF 60 to 65% Depression General Anxiety disorder on buspar and Wellbutrin Pt transitioned to LVN LPN on 08/15/24. Hypothyroidism On Synthroid Pt transitioned to LVN LPN on 08/15/24. Chronic pain in right lower extremity On Percocet as needed at home Pt transitioned to LVN LPN on 08/15/24. Diet:regular, easy to chew DVT prophylaxis: On Eliquis Dispo: on LVN LPN currently Admission and Anticipated Discharge Date Admission Date: August 11, 2024 Subjective patient was seen with her at bedside She was states alert and communicative, requesting water Extensive discussion with outside of the room about next steps and palliative care recommendations Review of Systems Review of Systems: All systems reviewed & are unremarkable except as noted in Subjective Physical Exam Physical Exam: General: Alert, oriented. appears tired Neuro: difficulty with movements in the bed HEENT: NC/AT Resp: no increased effort of breathing Results & Data Results & Data Vital Signs (Past 12 Hours) Vital Signs O2 Del Method O2 Flow Rate 08/15/24 07:20 Nasal Cannula 4 08/14/24 23:55 Nasal Cannula 4
--- NOTE | 2024-08-16 12:17 | Hospitalist Progress Note ---
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 Patient with frequent conversations during this hospitalization with palliative care. She had a noted decline overnight on August 14, 2024 requiring urgent evaluation by palliative care. Patient and agreeable at that time to transitioning to comfort measures only. She was previously treated for the following: Possible Sepsis Chronic lower extremity wounds Possible acute gastroenteritis Pt presenting with progressive weakness, hypotension and slight leukocytosis She notes persistent frequent bowel movements and notes episodes of N/V Lactate elevated at 2.7, normalized after IV fluids Recently treated for lower extremity cellulitis but lower extremities are not concerning for infection on exam. Chronic wounds, wounds noted on arms as well Bilateral lower extremity MRIs completed during the last admission Wound cultures from lower extremities and arms pending C diff and stool cx pending Blood Cx x2 sets pending CT abd/pelvis ordered and noting colitis, femur fracture. GI and orthopedics consulted. Was initially on IV cefepime and Linezolid Infectious Disease was consulted, recommended /stated the following: -switch Linezolid to Vancomycin -treat with abx for 48hrs and then monitor off abx- abx discontinued on 08/14/24 Palliative Care also consulted, appreciate further recs Pt transitioned to TELESERVICES REPRESENTATIVE on 08/15/24. Hypotension Chronic issue for her AM orthostatic vitals as able On gentle IV fluids On midodrine 2,5mg TID, can increase dose as needed consider an adrenal cause, no noted recent use of chronic steroids Holding home diuretics Pt transitioned to TELESERVICES REPRESENTATIVE on 08/15/24. R Femur fracture Noted on CT abd/pelvis Ortho consulted Pt transitioned to TELESERVICES REPRESENTATIVE on 08/15/24. Colitis GI consulted, appreciate recs Pt transitioned to TELESERVICES REPRESENTATIVE on 08/15/24. Bilateral lower extremity edema Possibly from medications, DVT and malnutrition and mitral prolapse Compression stockings recommended Diuretics were discontinued secondary to hypotension Pt transitioned to TELESERVICES REPRESENTATIVE on 08/15/24. Abnormal EKG Trop elevated at 51 once more before downtrending Echo from 07/29 reviewed Refractory AML and leukemia cutis Currently chemotherapy on hold for lower extremity wounds and overall general condition Peripheral smear noting no recurrence of AML Pt transitioned to TELESERVICES REPRESENTATIVE on 08/15/24. Chronic DVT and superficial thrombus On Eliquis History of mitral valve prolapse History of Takotsubo cardiomyopathy Echo done on 07/12/2024 EF 60 to 65% Depression General Anxiety disorder on buspar and Wellbutrin Pt transitioned to TELESERVICES REPRESENTATIVE on 08/15/24. Hypothyroidism On Synthroid Pt transitioned to TELESERVICES REPRESENTATIVE on 08/15/24. Chronic pain in right lower extremity On Percocet as needed at home Pt transitioned to TELESERVICES REPRESENTATIVE on 08/15/24. Diet:regular, easy to chew DVT prophylaxis: On Eliquis Dispo: on TELESERVICES REPRESENTATIVE currently Admission and Anticipated Discharge Date Admission Date: August 11, 2024 Subjective patient was seen with at bedside Appears she will pass soon, requesting to have 1 dog come in as this is patient's dying wish Case discussed with nursing media supervisor who is agreeable for 1 hour. Review of Systems Review of Systems: All systems reviewed & are unremarkable except as noted in Subjective Physical Exam Physical Exam: General: Alert, oriented. appears tired Neuro: difficulty with movements in the bed HEENT: NC/AT Resp: no increased effort of breathing Results & Data Results & Data Vital Signs (Past 12 Hours) Vital Signs O2 Del Method O2 Flow Rate 08/16/24 10:04 Nasal Cannula 4
[2024-08-17] MEDS: GLYCOPYRROLATE 0.2 MG/ML VIAL IV PRN (00:33)
--- NOTE | 2024-08-17 10:34 | Hospitalist Progress Note ---
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 Patient with frequent conversations during this hospitalization with palliative care. She had a noted decline overnight on August 14, 2024 requiring urgent evaluation by palliative care. Patient and agreeable at that time to transitioning to comfort measures only. She was previously treated for the following: Possible Sepsis Chronic lower extremity wounds Possible acute gastroenteritis Pt presenting with progressive weakness, hypotension and slight leukocytosis She notes persistent frequent bowel movements and notes episodes of N/V Lactate elevated at 2.7, normalized after IV fluids Recently treated for lower extremity cellulitis but lower extremities are not concerning for infection on exam. Chronic wounds, wounds noted on arms as well Bilateral lower extremity MRIs completed during the last admission Wound cultures from lower extremities and arms pending C diff and stool cx pending Blood Cx x2 sets pending CT abd/pelvis ordered and noting colitis, femur fracture. GI and orthopedics consulted. Was initially on IV cefepime and Linezolid Infectious Disease was consulted, recommended /stated the following: -switch Linezolid to Vancomycin -treat with abx for 48hrs and then monitor off abx- abx discontinued on 08/14/24 Palliative Care also consulted, appreciate further recs Pt transitioned to COMBUSTION ENGINEER on 08/15/24. Hypotension Chronic issue for her AM orthostatic vitals as able On gentle IV fluids On midodrine 2,5mg TID, can increase dose as needed consider an adrenal cause, no noted recent use of chronic steroids Holding home diuretics Pt transitioned to COMBUSTION ENGINEER on 08/15/24. R Femur fracture Noted on CT abd/pelvis Ortho consulted Pt transitioned to COMBUSTION ENGINEER on 08/15/24. Colitis GI consulted, appreciate recs Pt transitioned to COMBUSTION ENGINEER on 08/15/24. Bilateral lower extremity edema Possibly from medications, DVT and malnutrition and mitral prolapse Compression stockings recommended Diuretics were discontinued secondary to hypotension Pt transitioned to COMBUSTION ENGINEER on 08/15/24. Abnormal EKG Trop elevated at 51 once more before downtrending Echo from 07/29 reviewed Refractory AML and leukemia cutis Currently chemotherapy on hold for lower extremity wounds and overall general condition Peripheral smear noting no recurrence of AML Pt transitioned to COMBUSTION ENGINEER on 08/15/24. Chronic DVT and superficial thrombus On Eliquis History of mitral valve prolapse History of Takotsubo cardiomyopathy Echo done on 07/12/2024 EF 60 to 65% Depression General Anxiety disorder on buspar and Wellbutrin Pt transitioned to COMBUSTION ENGINEER on 08/15/24. Hypothyroidism On Synthroid Pt transitioned to COMBUSTION ENGINEER on 08/15/24. Chronic pain in right lower extremity On Percocet as needed at home Pt transitioned to COMBUSTION ENGINEER on 08/15/24. Diet:regular, easy to chew DVT prophylaxis: On Eliquis Dispo: on COMBUSTION ENGINEER currently Admission and Anticipated Discharge Date Admission Date: August 11, 2024 Subjective patient was seen laying in bed she was resting comfortably at the time of my exam was seen in the hallway and discussed that overnight they did bring in her dog Physical Exam Physical Exam: General: Alert, oriented. appears tired Neuro: difficulty with movements in the bed HEENT: NC/AT Resp: no increased effort of breathing Results & Data Results & Data Vital Signs (Past 12 Hours) Vital Signs O2 Del Method O2 Flow Rate 08/17/24 07:33 Room Air 4
[2024-08-17] MEDS ORDERED: STAT IV Infusion **Titration per Protocol STA (11:24)
[2024-08-17] MEDS: HYDROmorphone 100 MG/100 ML BAG IV SCH (11:56)
--- NOTE | 2024-08-17 12:49 | Palliative Care Progress Note ---
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 Kavin shared concerns about Codi's changing symptomatology and worsening distress. We discussed the changes planned for today and how we hope they will provide relief. We agreed to re assess tomorrow. We will do some mouth care today after she is more comfortable. We discussed the dying process. Discussed changes pt may move through in the dying process including but not limited to sleeping more, disorientation when awake, restlessness, diminished senses/inability to respond to stimulus although ability to be aware of them remains intact longer, changes in body temperatures, skin changes/mottling/cyanosis, respiratory pattern changes, oral secretions. Family verbalized understanding. The goal is to assure a peaceful . (8) Fracture of greater trochanter of right femur: Plan As above Dilaudid gtt for comfort ordered Thank you for allowing us to participate in the ongoing care of this patient. Please page with any additional concerns. Ivan Melgar DNP Director, Palliative Medicine Admission and Anticipated Discharge Date Admission Date: August 11, 2024 Subjective Codi remains on RETAIL SALESWORKER Kavin at bedside She is in more pain, moaning at times, drying out, furrowed brow Kavin reports she was agitated yesterday - kept saying she needed to get out of bed - ultimately had some Ativan IV with improvement and relief Codi is awake intermittently, answers yes/no tells me she is in pain "all over" and does not find comfort in present positioning breathing feels harder and she is in distress denies hunger, c/o mouth dry not taking PO per Kavin since Saturday Review of Systems Review of Systems: All systems reviewed & are unremarkable except as noted in Subjective Physical Exam Physical Exam: Frail, chronically ill female, +distress, +appears uncomfortable bitemp wasting congealed blood in mouth/gums/teeth and corners of her mouth, dried and congealed, dark red she is awake fitfully, alert to person, place, unsure of time but knows year is 2024 gen weakness use of accessory muscles with abd breathing noted inc resp effort moaning, furrowed brow, grimacing throughout this visit tachy s1s2 abd soft, mildly tender to palpation skin with various ecchymoses, +new skin tear LUE dry, papery skin, frail/fragile Results & Data Vital Signs (Past 12 Hours) Vital Signs O2 Del Method O2 Flow Rate 08/17/24 07:33 Room Air 4 Laboratory Results RETAIL SALESWORKER Diagnostic Findings RETAIL SALESWORKER PG Care Time/CCT Total # of Minutes Spent Total Time Spent with Patient: Total time spent is greater than 50% in coordination of care (as documented) at patient's floor/unit and/or counseling patient: I spent 95 minutes overall addressing this case: 15 min in medical data review/discussion with referring provider(s) and/or preparation for the visit 20 min in direct interaction with the patient/exam 30 min in Advance Care Planning/Goals of Care discussions as detailed above in note (must be >16min) 15 min in subsequent review and synthesis of assessment and plan 15 min communicating with other providers regarding the patient's case: primary team and nursing Advanced Care Planning 05912 Advanced Care Planning 30 Min [place] [address] SUB INP/OBS CARE 3/50MIN (25 - SIGNIFICANT, SEPARATELY IDENTIFIABLE ) Patient Type Established Medical Decision Making High Complexity Diagnoses Dyspnea and respiratory abnormalities R06.00; R06.89 Generalized pain R52 Weakness generalized R53.1 Failure to thrive in adult R62.7 Need for comfort care Palliative care by specialist Z51.5 Counseling regarding end of life decision making Z71.89 Fracture of greater trochanter of right femur S72.111A Additional Codes Advanced Care Planning - 15552 Advanced Care Planning 30 Min: 07229 Advanced Care Planning 30 Min ([id number]) Time Spent (min) 95 Comment high MDM
[2024-08-17] MEDS: HYDROmorphone BOLUS from BAG IV PRN (21:16)
--- NOTE | 2024-08-18 12:34 | Hospitalist Progress Note ---
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 Patient with frequent conversations during this hospitalization with palliative care. She had a noted decline overnight on August 14, 2024 requiring urgent evaluation by palliative care. Patient and agreeable at that time to transitioning to comfort measures only. She was previously treated for the following: Possible Sepsis Chronic lower extremity wounds Possible acute gastroenteritis Pt presenting with progressive weakness, hypotension and slight leukocytosis She notes persistent frequent bowel movements and notes episodes of N/V Lactate elevated at 2.7, normalized after IV fluids Recently treated for lower extremity cellulitis but lower extremities are not concerning for infection on exam. Chronic wounds, wounds noted on arms as well Bilateral lower extremity MRIs completed during the last admission Wound cultures from lower extremities and arms pending C diff and stool cx pending Blood Cx x2 sets pending CT abd/pelvis ordered and noting colitis, femur fracture. GI and orthopedics consulted. Was initially on IV cefepime and Linezolid Infectious Disease was consulted, recommended /stated the following: -switch Linezolid to Vancomycin -treat with abx for 48hrs and then monitor off abx- abx discontinued on 08/14/24 Palliative Care also consulted, appreciate further recs Pt transitioned to MANAGER [employer] on 08/15/24. Hypotension Chronic issue for her AM orthostatic vitals as able On gentle IV fluids On midodrine 2,5mg TID, can increase dose as needed consider an adrenal cause, no noted recent use of chronic steroids Holding home diuretics Pt transitioned to MA[employer]GER [employer] on 08/15/24. R Femur fracture Noted on CT abd/pelvis Ortho consulted Pt transitioned to MA[employer]GER [employer] on 08/15/24. Colitis GI consulted, appreciate recs Pt transitioned to MANAGER BEH[employer] on 08/15/24. Bilateral lower extremity edema Possibly from medications, DVT and malnutrition and mitral prolapse Compression stockings recommended Diuretics were discontinued secondary to hypotension Pt transitioned to MANAGER [employer] on 08/15/24. Abnormal EKG Trop elevated at 51 once more before downtrending Echo from 07/29 reviewed Refractory AML and leukemia cutis Currently chemotherapy on hold for lower extremity wounds and overall general condition Peripheral smear noting no recurrence of AML Pt transitioned to MANAGER BEH[employer] on 08/15/24. Chronic DVT and superficial thrombus On Eliquis History of mitral valve prolapse History of Takotsubo cardiomyopathy Echo done on 07/12/2024 EF 60 to 65% Depression General Anxiety disorder on buspar and Wellbutrin Pt transitioned to MA[employer]GER BEH[employer] on 08/15/24. Hypothyroidism On Synthroid Pt transitioned to MA[employer]GER [employer] on 08/15/24. Chronic pain in right lower extremity On Percocet as needed at home Pt transitioned to MA[employer]GER [employer] on 08/15/24. Diet:regular, easy to chew DVT prophylaxis: On Eliquis Dispo: on [employer]GER [employer] currently Admission and Anticipated Discharge Date Admission Date: August 11, 2024 Subjective patient was seen laying in bed she was resting comfortably at the time of my exam at bedside Review of Systems Review of Systems: All systems reviewed & are unremarkable except as noted in Subjective Physical Exam Physical Exam: General: Alert, oriented. appears tired Neuro: difficulty with movements in the bed HEENT: NC/AT Resp: no increased effort of breathing Results & Data Results & Data Vital Signs (Past 12 Hours) Vital Signs O2 Del Method O2 Flow Rate 08/18/24 07:50 Nasal Cannula 3
--- NOTE | 2024-08-18 13:44 | Palliative Care Progress Note ---
Date of Service August 18, 2024 Assessment & Plan (1) Dyspnea and respiratory abnormalities: Plan: Inc effort with use of accessory muscles and tachycardia, some inc grimacing and crying out with exam Will inc Dilaudid gtt to 0.2mg per hour, new order written (2) Generalized pain: (3) Advanced care planning/counseling discussion: Plan: I saw Codi Soto and met with family today at bedside for 45min face to face, and close personal friend. She was having a little more resp effort with tachycardia. I am gently increasing the Dilaudid 0.2mg per hour. Kavin the is going to speak with some family and friends today/tomorrow to see if they could help if he brought Codi home with hospice. She would need to go with either [facility] hosp[facility] or [facility] bc of the Dilaudid infusion. She is too cachectic for transdermal fentanyl and her swallow was worsening before we transitioned to comfort. I also spoke w/Kavin about stepping away from bedside and taking some time away from [facility] to decompress. His friend is going to take him to lunch now so it may be a nice opportunity to do any personal care Codi may need while he is away. I told him to stay away a few hours and reset emotionally. (4) Encounter for hospice care discussion: Plan: I provided education about the hospice benefit: an interdisciplinary program offered by nurses, nurses aides, social workers, chaplains and a nurses medical assistants phlebotomists for patients with a terminal condition and a life expectancy of less than 6 months. This is covered by Medicare at 100%/no out of pocket expense to patient and all meds/supplies needed by patient for the reason they are on hospice are paid for/covered by hospice. The goal is assure quality of life of the patient in their home setting (home, chcf, inpatient hospice setting) by providing symptoms management, psychosocial and spiritual support. However, they cannot offer 24 hours care and if the family is unable to provide that care, they will have to consider personal care with out of pocket cost vs. chcf placement. We discussed the goals of hospice as a patient service and the goals of care; we discussed EOL trajectories and transitions bernice the emotional impact of realizing mortality as a concrete reality from prior abstract considerations. Pt was reassured that no matter where they are along this trajectory, they are not alone - their medical team will remain by their side through their journey. Discussed the pros/cons of accepting help when especially weakened and distressed by pain-which would also help provide relief/decrease caregiver burden/strain. (5) Need for comfort care: (6) Failure to thrive in adult: (7) Weakness generalized: (8) Palliative care by specialist: Plan As above Thank you for allowing us to participate in the ongoing care of this patient. Please page with any additional concerns. Ivan Melgar DNP Director, Palliative Medicine Admission and Anticipated Discharge Date Admission Date: August 11, 2024 Review of Systems Review of Systems: Unobtainable due to cognitive status Physical Exam Physical Exam: Frail, chronically ill female, +distress, +appears uncomfortable bitemp wasting congealed blood in mouth/gums/teeth and corners of her mouth, dried and congealed, dark red she is awake to verbal but quickly drifts back gen weakness use of accessory muscles with abd breathing noted inc resp effort moaning, furrowed brow, grimacing throughout exam, inc discomfort LUE and anterior chest tachy s1s2 abd soft, mildly tender to palpation skin with various ecchymoses, +new skin tear LUE dry, papery skin, frail/fragile erythematous changes to BLE, wound dressings intact, heels sl discolored, cooler to tough, mild/early mottling to BLE Results & Data Vital Signs (Past 12 Hours) Vital Signs O2 Del Method O2 Flow Rate 08/18/24 07:50 Nasal Cannula 3 PG Care Time/CCT Total # of Minutes Spent Total Time Spent with Patient: Total time spent is greater than 50% in coordination of care (as documented) at patient's floor/unit and/or counseling patient: I spent 90 minutes overall addressing this case: 10 min in medical data review/discussion with referring provider(s) and/or preparation for the visit incl MAR review, prn dose review 15 min in direct interaction with the patient/exam 45 min in Advance Care Planning/Goals of Care discussions as detailed above in note (must be >16min) 10 min in subsequent review and synthesis of assessment and plan 10 min communicating with other providers regarding the patient's case: nursing, primary team, care mgt Advanced Care Planning 18434 Advanced Care Planning 30 Min 12102 Advanced Care Planning Additional 30 Min [place] [address] SUB INP/OBS CARE 3/50MIN (25 - SIGNIFICANT, SEPARATELY IDENTIFIABLE ) Patient Type Established Diagnoses Dyspnea and respiratory abnormalities R06.00; R06.89 Generalized pain R52 Advanced care planning/counseling discussion Z71.89 Encounter for hospice care discussion Z71.89 Need for comfort care Failure to thrive in adult R62.7 Weakness generalized R53.1 Palliative care by specialist Z51.5 Additional Codes Advanced Care Planning - 08615 Advanced Care Planning 30 Min: 31475 Advanced Care Planning 30 Min ([id number]) Advanced Care Planning - 01380 Advanced Care Planning Additional 30 Min: 51877 Advanced Care Planning Additional 30 Min ([id number])
--- NOTE | 2024-08-19 16:34 | Hospitalist Progress Note ---
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 Patient with frequent conversations during this hospitalization with palliative care. She had a noted decline overnight on August 14, 2024 requiring urgent evaluation by palliative care. Patient and agreeable at that time to transitioning to comfort measures only. 08/19/2024 Palliative care encounter Appreciated palliative care input and recommendation Patient remains on comfort measures only Lying in bed without any acute distress with closed eyes and no discomfort Seems to be due to we will to be transferred at this time Will continue with current management She was previously treated for the following: Possible Sepsis Chronic lower extremity wounds Possible acute gastroenteritis Pt presenting with progressive weakness, hypotension and slight leukocytosis She notes persistent frequent bowel movements and notes episodes of N/V Lactate elevated at 2.7, normalized after IV fluids Recently treated for lower extremity cellulitis but lower extremities are not concerning for infection on exam. Chronic wounds, wounds noted on arms as well Bilateral lower extremity MRIs completed during the last admission Wound cultures from lower extremities and arms pending C diff and stool cx pending Blood Cx x2 sets pending CT abd/pelvis ordered and noting colitis, femur fracture. GI and orthopedics c onsulted. Was initially on IV cefepime and Linezolid Infectious Disease was consulted, recommended /stated the following: -switch Linezolid to Vancomycin -treat with abx for 48hrs and then monitor off abx- abx discontinued on 08/14/24 Palliative Care also consulted, appreciate further recs Pt transitioned to FASHION JOURNALIST on 08/15/24. Hypotension Chronic issue for her AM orthostatic vitals as able On gentle IV fluids On midodrine 2,5mg TID, can increase dose as needed consider an adrenal cause, no noted recent use of chronic steroids Holding home diuretics Pt transitioned to FASHION JOURNALIST on 08/15/24. R Femur fracture Noted on CT abd/pelvis Ortho consulted Pt transitioned to F[employer] JOU[employer] on 08/15/24. Colitis GI consulted, appreciate recs Pt transitioned to FASH[employer] JOURNALIST on 08/15/24. Bilateral lower extremity edema Possibly from medications, DVT and malnutrition and mitral prolapse Compression stockings recommended Diuretics were discontinued secondary to hypotension Pt transitioned to FASHION JOURNALIST on 08/15/24. Abnormal EKG Trop elevated at 51 once more before downtrending Echo from 07/29 reviewed Refractory AML and leukemia cutis Currently chemotherapy on hold for lower extremity wounds and overall general condition Peripheral smear noting no recurrence of AML Pt transitioned to FASHION JOURNALIST on 08/15/24. Chronic DVT and superficial thrombus On Eliquis History of mitral valve prolapse History of Takotsubo cardiomyopathy Echo done on 07/12/2024 EF 60 to 65% Depression General Anxiety disorder on buspar and Wellbutrin Pt transitioned to FASHION JOURNALIST on 08/15/24. Hypothyroidism On Synthroid Pt transitioned to FASHION JOURNALIST on 08/15/24. Chronic pain in right lower extremity On Percocet as needed at home Pt transitioned to FASHION JOURNALIST on 08/15/24. Diet:regular, easy to chew DVT prophylaxis: On Eliquis Dispo: on FASHION [employer]OURNA[employer] currently Admission and Anticipated Discharge Date Admission Date: August 11, 2024 Subjective 08/19/2024 The patient was seen and examined in medical floor She remains very comfortable with closed eyes and did not want to talk to me today Appreciate palliative care input and recommendation Physical Exam Physical Exam: Lying in bed without any acute distress Constitutional: + ill appearing and + thin Eyes: Closed Respiratory: no respiratory distress Cardiovascular: Rate/Rhythm: regular rate and regular rhythm Gastrointestinal (Abdomen): Inspection/Auscultation: normal bowel sounds; abdomen not distended Neurologic: Alert and awake. Minimally responsive Results & Data Results & Data Vital Signs (Past 12 Hours) Vital Signs O2 Del Method O2 Flow Rate 08/19/24 09:15 Nasal Cannula 3 Medications Administered Current Inpatient Medications Glycopyrrolate (Glycopyrrolate 0.2 Mg/Ml Vial) 0.4 mg IV Q4H PRN PRN Reason: Rattling Secretions or Pulm Congestion Stop: 09/13/24 20:37 Last Admin: 08/17/24 00:33 Dose: 0.4 mg Haloperidol (Haloperidol Oral Soln 2 Mg/Ml) 0.5 mg PO Q4H PRN PRN Reason: Agitation,hallucinations Stop: 09/13/24 20:37 Hydromorphone HCl (Hydromorphone Bolus From Bag) 0.3 mg IV Q15M PRN PRN Reason: Comfort Care Parameters Stop: 08/31/24 11:23 Last Admin: 08/19/24 16:05 Dose: 0.3 mg Hydromorphone HCl (Dilaudid) 100 mg in 100 mls @ 0.2 mls/hr IV .Q96H VIRAJ; Protocol Stop: 08/31/24 11:29 Last Titration: 08/18/24 14:32 Dose: 0.2 mg/hr, 0.2 mls/hr Lorazepam (Lorazepam 2 Mg/1 Ml Vial) 0.5 mg IV Q4H PRN PRN Reason: Anxiety/Agitation Stop: 09/13/24 20:37 Last Admin: 08/17/24 21:20 Dose: 0.5 mg Ondansetron HCl (Ondansetron Inj 2 Mg/Ml 2 Ml Vial) 4 mg IV Q6H PRN PRN Reason: Nausea And Vomiting Stop: 09/12/24 14:47 Last Admin: 08/13/24 16:26 Dose: 4 mg Polyethylene Glycol (Polyethylene (Miralax) 17 Gm Pack) 17 gm PO DAILY [facility] Stop: 09/13/24 08:59 Last Admin: 08/19/24 08:39 Dose: Not Given
--- NOTE | 2024-08-20 10:40 | Communication Note ---
Date of Service: August 20, 2024 Telephone call with , Kavin. He is pleased she is being dc home with hospice this afternoon. Their friends are at the house getting everything set up and will be able to help care for her alongside Kavin. Kavin was very thankful for all of the care Codi received through her [facility] admissions and bernice the comfort focused care she has been on these past few days, he remarked on the compassion of all the staff caring for Cdoi, and by extension for him. Thank you for allowing us to participate in the ongoing care of this patient. Please page with any additional concerns. Ivan Melgar DNP Director, Palliative Medicine
--- NOTE | 2024-08-20 11:34 | Hospitalist Progress Note ---
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 Patient with frequent conversations during this hospitalization with palliative care. She had a noted decline overnight on August 14, 2024 requiring urgent evaluation by palliative care. Patient and agreeable at that time to transitioning to comfort measures only. 08/19/2024 Palliative care encounter Appreciated palliative care input and recommendation Patient remains on comfort measures only Lying in bed without any acute distress with closed eyes and no discomfort Seems to be due to we will to be transferred at this time Will continue with current management 08/20/2024 Remains critical but stable Only opens eyes with command but no other communication and/or movements of the extremities After discussion with the family members she will be discharged home with hospice at 3 PM today She was previously treated for the following: Possible Sepsis Chronic lower extremity wounds Possible acute gastroenteritis Pt presenting with progressive weakness, hypotension and slight leukocytosis She notes persistent frequent bowel movements and notes episodes of N/V Lactate elevated at 2.7, normalized after IV fluids Recently treated for lower extremity cellulitis but lower extremities are not concerning for infection on exam. Chronic wounds, wounds noted on arms as well Bilateral lower extremity MRIs completed during the last admission Wound cultures from lower extremities and arms pending C diff and stool cx pending Blood Cx x2 sets pending CT abd/pelvis ordered and noting colitis, femur fracture. GI and orthopedics consulted. Was initially on IV cefepime and Linezolid Infectious Disease was consulted, recommended /stated the following: -switch Linezolid to Vancomycin -treat with abx for 48hrs and then monitor off abx- abx discontinued on 08/14/24 Palliative Care also consulted, appreciate further recs Pt transitioned to PRODUCTION LINE MECHANIC on 08/15/24. Hypotension Chronic issue for her AM orthostatic vitals as able On gentle IV fluids On midodrine 2,5mg TID, can increase dose as needed consider an adrenal cause, no noted recent use of chronic steroids Holding home diuretics Pt transitioned to PRODUCTION LINE MECHANIC on 08/15/24. R Femur fracture Noted on CT abd/pelvis Ortho consulted Pt transitioned to PRODUCTION LINE MECHANIC on 08/15/24. Colitis GI consulted, appreciate recs Pt transitioned to PRODUCTION LINE MECHANIC on 08/15/24. Bilateral lower extremity edema Possibly from medications, DVT and malnutrition and mitral prolapse Compression stockings recommended Diuretics were discontinued secondary to hypotension Pt transitioned to PRODUCTION LINE MECHANIC on 08/15/24. Abnormal EKG Trop elevated at 51 once more before downtrending Echo from 07/29 reviewed Refractory AML and leukemia cutis Currently chemotherapy on hold for lower extremity wounds and overall general condition Peripheral smear noting no recurrence of AML Pt transitioned to PRODUCTION LINE MECHANIC on 08/15/24. Chronic DVT and superficial thrombus On Eliquis History of mitral valve prolapse History of Takotsubo cardiomyopathy Echo done on 07/12/2024 EF 60 to 65% Depression General Anxiety disorder on buspar and Wellbutrin Pt transitioned to PRODUCTION LINE MECHANIC on 08/15/24. Hypothyroidism On Synthroid Pt transitioned to PRODUCTION LINE MECHANIC on 08/15/24. Chronic pain in right lower extremity On Percocet as needed at home Pt transitioned to PRODUCTION LINE MECHANIC on 08/15/24. Diet:regular, easy to chew DVT prophylaxis: On Eliquis Dispo: on PRODUCTION LINE MECHANIC currently Admission and Anticipated Discharge Date Admission Date: August 11, 2024 Subjective 08/19/2024 The patient was seen and examined in medical floor She remains very comfortable with closed eyes and did not want to talk to me today Appreciate palliative care input and recommendation 08/20/2024 The patient was seen and examined in medical floor in presence of the family members She remains critical, stable without any distress After discussion with the family members she will be discharged home this afternoon with hospice Physical Exam Physical Exam: Lying in bed without any acute distress Constitutional: + ill appearing and + thin Respiratory: no respiratory distress Cardiovascular: Rate/Rhythm: regular rate and regular rhythm Gastrointestinal (Abdomen): Inspection/Auscultation: normal bowel sounds; abdomen not distended Neurologic: Minimally alert. Only opens eyes on command. Results & Data Results & Data Vital Signs (Past 12 Hours) Vital Signs O2 Del Method O2 Flow Rate 08/20/24 10:30 Nasal Cannula 3
[2024-08-20 13:48] VITALS: BP 104/68
[2024-08-20] MEDS: HYDROmorphone INJ 0.5 MG/0.5 ML SYR IV STA (15:03)
--- NOTE | 2024-08-21 07:59 | Discharge Summary ---
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 Patient recently in the hospital with severe sepsis secondary to cellulitis of left lower extremity and she was discharged to rehab on 08/05/2024 with p.o. Zyvox with ID recommendation. says first 2 days 2 days she was participating in PT but she was weak. After that she is mostly bedbound. Today when tried to take her to wound clinic she felt very tired almost passed in the wheelchair but later she was doing okay and she was taken to wound care where she was thought to be very sick looking, pale and hypotensive and was sent to ER. In the ER initially systolic blood pressure was in 70s and 80s but improved with the fluids. Last admission she was also discharged on midodrine. Blood pressure usually runs low. Her lactic acid was 2.7. His bilateral lower extremity wounds. Also has wound on the left arm which she says because of her dog scratched her. No fevers. Feeling weak and tired. Poor appetite. Vomited couple of times yesterday. Denies any headache or runny nose or sore throat. No cough. Has nausea. Denies any chest pain or shortness. No abdominal pain. She has constipation and also diarrhea. Micturating okay. Past medical history. As mentioned above Past surgical history. Amputation of the left toe. Bone marrow aspiration. Colonoscopy. EGD. Injection of lumbosacral spine. Removal of [place] catheter. TMJ arthroscopy. Social history. . No smoking. Alcohol rarely. No drug use. Family history. Maternal cousin had breast cancer in 30s. Maternal grandmother had breast cancer. Mother had head and neck cancer.COPD. Carotid stenosis. Stroke. Father had esophageal cancer. Heart attack. Hypertension. Sister has thyroid disorder. Admission Exam Per Admitting Provider Physical Exam: General- Not in acute distress. Head- atraumatic Eyes- PERRL. ENT- oropharynx dry Neck- supple, no JVD. Lungs- clear to auscultation , no wheezing or crackles Heart- regular rhythm; no murmur, no gallop. Abdomen- normal bowel sounds, soft, nontender, no distension Extremities- mild lower extremity edema present.wounds seen in both lower extremities. wound also on left arm. Neuro- alert, oriented ; PERRL, no facial palsy; no dysarthria; moves extremities Principal Diagnosis Refractory AML and leukemia cutis, chronic bilateral leg wounds with possible sepsis, comfort care status in hospital Discharge Exam Lying in bed without any acute distress Constitutional + ill appearing and + thin Respiratory no respiratory distress Cardiovascular Rate/Rhythm: regular rate and regular rhythm Gastrointestinal (Abdomen) Inspection/Auscultation: normal bowel sounds; abdomen not distended Discharge Data Allergies Allergy/AdvReac Type Severity Reaction Status Date / Time amoxicillin AdvReac Intermediate NAUSEA/VOMI Verified 07/27/24 14:10 TING Penicillins AdvReac Intermediate NAUSEA/VOMITING/"FEELS Verified 07/27/24 14:10 NERVOUS" Consultations 08/11/24 19:07 ED Decision to Admit Stat 08/12/24 08:00 Consult Infectious Diseases Routine 08/12/24 12:04 Consult Palliative Care Routine 08/13/24 11:53 Consult Gastroenterology Routine 08/13/24 12:08 Consult Orthopedic Surgery Routine Ordered Studies 08/13/24 08:00 CT abd pelvis IV con only Routine 08/13/24 11:52 US venous doppler LE BI Urgent Total Time Total Time Spent Total Time Spent (In Minutes): 40 minutes Discharge Plan Discharge Items Patient Disposition: Hospice - Home Reason For Visit: SEPSIS, LOWER EXT WOUNDS Discharge Diagnosis: Refractory AML and leukemia cutis, chronic bilateral leg wounds with possible sepsis, comfort care status in hospital Condition on Discharge: Critical Activity: As commented below Activity Comment: Hospice care at home Non-emergency contact: Primary Care Provider Call non-emergency contact if: you have any medication questions and your symptoms worsen Follow-up/Referrals: Joe Peng, [Primary Care Provider] - ( As per hospice care) Diet: Other - See Diet Comment Diet Comment: As tolerated Addtl Attending Provider Instructions: Continue management as per hospice care Pending Studies at Discharge: No Stand-Alone Forms: My [facility] Medications and DC Order Prescriptions: New haloperidol lactate 2 mg/mL Concentrate 0.5 mg PO Q4H PRN (Reason: agitation) 30 Days Qty: 15 0RF Dilaudid 0.3 mg continuous IV infusion CONTINOUS 30 Days Qty: 100 0RF glycopyrrolate 1 mg/5 mL (0.2 mg/mL) solution 0.4 mg PO Q4H PRN (Reason: secretions) Qty: 50 0RF haloperidol lactate 2 mg/mL concentrate 0.5 mg PO Q4H Qty: 15 0RF Continued Dilaudid 10 mg/mL auto-injector 0.3 mg continuous IV infusion CONTINOUS 5 Days Qty: 10 0RF Discontinued cyanocobalamin (vitamin B-12) 1,000 mcg Tablet 1,000 mcg PO DAILY acetaminophen 500 mg Tablet 500 mg PO Q6H PRN (Reason: Pain) lorazepam 0.5 mg Tablet 0.5 mg PO DAILY PRN (Reason: Anxiety) buspirone 10 mg tablet 10 mg PO BID levothyroxine [Synthroid] 150 mcg tablet 150 mcg PO DAILY omeprazole 20 mg capsule,delayed release(DR/EC) 20 mg PO DAILY metoprolol succinate 25 mg tablet extended release 24 hr 12.5 mg PO DAILY bupropion HCl 300 mg tablet extended release 24 hr 300 mg PO DAILY bupropion HCl 150 mg tablet extended release 24 hr 150 mg PO DAILY calcium carbonate-vitamin D3 [Calcium 500 + D] 500 mg-10 mcg (400 unit) Tablet,Chewable 1 tab PO BID potassium chloride 20 mEq Tablet Extended Release 20 meq PO DAILY prochlorperazine maleate [Compazine] 10 mg Tablet 10 mg PO Q8H PRN (Reason: Nausea) linezolid [Zyvox] 600 mg Tablet 600 mg PO BID midodrine 2.5 mg Tablet 2.5 mg PO UD Rx Instructions: TID at 0800,1200 and 1700 oxycodone-acetaminophen 7.5-325 mg tablet 1 tab PO Q6H PRN (Reason: Pain) magnesium chloride 64 mg Tablet,Delayed Release (Dr/Ec) 64 mg PO BID Eliquis 5 mg tablet 5 mg PO BID Discharge Orders: Discharge Order (Routine); Ordered 08/20/24 Ordered By: Romero Kaur Admission Data Admit Date/Time: 08/11/24 20:49 Attending Provider: Romero Kaur Admit Provider: Garland Dooley Primary Care Provider: Joe Peng Other Providers: Erin Orantes; Neville Mclean I; Zohaib Banda; [facility]; Jose Manuel Patiño Other Interventions: Discharge Summary Assessment (RN) Last Done: 08/20/24 13:46
== END 2024-08-20 15:21 | disposition hospice, home (50) | DRG 871 ==
LOC: ED 15:06 → SUATTDRO 20:49 → 4W 20:49 → 3W 08-14 23:48